=== PATIENT | female | born 1945 | race Caucasian/White ===

== ENCOUNTER → 2020-09-09 | Outpatient (CLI) | payer MEDICARE ==
--- NOTE | 2020-09-09 13:58 | Diagnostic Imaging Report ---
EXAMINATION: CT Chest without contrast (lung screening). TECHNIQUE: Multiple contiguous axial images were obtained through the chest without the use of intravenous contrast according to lung cancer screening protocol. All CT scans use one or more of the following dose optimizing techniques: automated exposure control, MA and/or KvP adjustment based on a patient size and exam type, or iterative reconstruction. HISTORY: 30 pack year history of smoking. COMPARISON: None available. FINDINGS: There is no edema or pneumonia. No pleural effusion. No pneumothorax. There is a 10 x 7 mm right lower lobe pulmonary nodule. There is mild atelectasis in the lingula. There is no axillary or supraclavicular lymphadenopathy. There is no mediastinal lymphadenopathy. Heart size is normal. There are mild coronary artery calcifications. No pericardial effusion. Aorta is normal in caliber. Limited views of the upper abdomen show an indeterminate renal lesion measuring 2.5 cm, likely a cyst. There are no suspicious osseous lesions. IMPRESSION: 1. Right lower lobe pulmonary nodule measuring 8.5 mm in average diameter. Three-month follow-up or PET CT are recommended. 2. Indeterminate right renal lesion which is likely a cyst but difficult to characterize due to low-dose technique. Renal protocol CT is recommended. LUNG-RADS CATEGORY: 4a MODIFIER: S Dictated by: Dictated on workstation # [id number]
== END ==
LOC: RAD 13:45
PROVIDERS: ATTEND Family Medicine
DX: Z12.2 Encounter for screening for malignant neoplasm of respiratory organs (principal); R91.1 Solitary pulmonary nodule; N28.9 Disorder of kidney and ureter, unspecified; F17.210 Nicotine dependence, cigarettes, uncomplicated

== ENCOUNTER → 2020-09-17 | Outpatient (CLI) | payer MEDICARE | LOC: RAD 09:00 | PROVIDERS: ATTEND Family Medicine | DX: R91.8 Other nonspecific abnormal finding of lung field (principal); E22.2 Syndrome of inappropriate secretion of antidiuretic hormone; Z72.0 Tobacco use | CPT/HCPCS: 78815; A9552 ==

== ENCOUNTER 2020-09-30 05:30 | Outpatient (RCR) | payer MEDICARE ==
[~2020-09-30] VITALS: Ht 157.5 cm; Wt 85.3 kg
[~2020-09-30 05:30] MED LIST: ASCO500C17 PO; ASPI-999 PO; LISI40TA PO; MV-M1TAB57 PO; OMG1KC PO; SIMV40TA25 PO; UMEC1BLS IH
== END 2020-09-30 13:43 | disposition home or self-care (01) ==
LOC: PREOP 05:30
PROVIDERS: ATTEND Surgery
DX: Z01.812 Encounter for preprocedural laboratory examination (principal); K63.89 Other specified diseases of intestine; Z20.828 Contact with and (suspected) exposure to other viral communicable diseases
CPT/HCPCS: 87635

== ENCOUNTER 2020-10-01 09:21 | Outpatient (RCR) | payer MEDICARE ==
[~2020-10-01 09:21] MED LIST changes: -LISI40TA PO; +LISI40TA9 PO
[2020-10-01 10:15] LABS: BASOPHILS # (AUTO) 0.1 10^3/uL (0.0-0.1); BASOPHILS % (AUTO) 1 % (0-10); EOSINOPHILS # (AUTO) 0.2 10^3/uL (0.0-0.3); EOSINOPHILS % (AUTO) 1 % (0-10); HEMATOCRIT 37 % (35-52); HEMOGLOBIN 12.4 g/dL (11.5-16.0); LYMPHOCYTES # (AUTO) 2.4 10^3/uL (1.0-4.0); LYMPHOCYTES % (AUTO) 22 % (12-44); MEAN CORPUSCULAR HEMOGLOBIN 31 pg (25-34); MEAN CORPUSCULAR HGB CONC 34 g/dL (32-36); MEAN CORPUSCULAR VOLUME 93 fL (80-99); MEAN PLATELET VOLUME 8.5 fL (9.0-12.2); MONOCYTES # (AUTO) 0.9 10^3/uL (0.0-1.0); MONOCYTES % (AUTO) 9 % (0-12); NEUTROPHILS # (AUTO) 7.4 10^3/uL (1.8-7.8); NEUTROPHILS % (AUTO) 67 % (42-75); PLATELET COUNT 405 10^3/uL (130-400); WHITE BLOOD COUNT 10.9 10^3/uL (4.3-11.0)
[2020-10-01 10:19] LABS: ALANINE AMINOTRANSFERASE 23 U/L (0-55); ALBUMIN 4.2 GM/DL (3.2-4.5); ALKALINE PHOSPHATASE 80 U/L (40-136); BILIRUBIN,TOTAL 0.3 MG/DL (0.1-1.0); BUN/CREATININE RATIO 20; CALCIUM 9.6 MG/DL (8.5-10.1); CARBON DIOXIDE 20 MMOL/L (21-32); CHLORIDE 95 MMOL/L (98-107); CREATININE SERUM 0.83 MG/DL (0.60-1.30); GFR ESTIMATED > 60; GLUCOSE 126 MG/DL (70-105); SODIUM 126 MMOL/L (135-145); TOTAL PROTEIN 7.3 GM/DL (6.4-8.2)
[2020-10-24] MEDS ORDERED: MONT10TA32 PO (11:45)
[2020-10-24] MEDS ORDERED: CETI10TA17 PO (11:45)
[2020-11-07] MEDS ORDERED: FLUT1BLS3 IH (13:00)
[2020-12-29] MEDS ORDERED: ONDA4TAB11 PO (12:15)
[2020-12-29] MEDS ORDERED: NICO1PAT38 TD (12:15)
[2020-12-29] MEDS ORDERED: PHEN120L2 MC (12:15)
[2020-12-29] MEDS ORDERED: PANT40TA52 PO (12:15)
[2020-12-29] MEDS ORDERED: Bethanechol Chl PO (12:15)
[2020-12-29] MEDS ORDERED: METO-333 PO (12:15)
[2020-12-29] MEDS ORDERED: MELA3TAB39 PO (12:15)
[2020-12-29] MEDS ORDERED: SENN1TAB76 PO (12:15)
[2020-12-29] MEDS ORDERED: FENT1PAT8 TD (12:15)
[2020-12-29] MEDS ORDERED: SUCR1TAB PO (12:15)
[2020-12-29] MEDS ORDERED: MICO90PO TOP (12:15)
[2020-12-29] MEDS ORDERED: METO5TAB2 PO (12:15)
[2020-12-29] MEDS ORDERED: ENOX40DI8 SC (12:15)
[2020-12-29] MEDS ORDERED: SALI45SP MM (12:15)
[2020-12-29] MEDS ORDERED: Artificial Tears OU (12:15)
[2020-12-29] MEDS ORDERED: AMLO-251 PO (12:15)
[2020-12-29] MEDS ORDERED: NF-NACL1GT PO (12:15)
[2020-12-29] MEDS ORDERED: OXC5T PO (12:15)
[2020-12-29] MEDS ORDERED: ALBU2.5V4 INH (12:15)
[2020-12-29] MEDS ORDERED: POLY17PO54 PO (12:15)
[2020-12-29] MEDS ORDERED: DCS100C PO (12:15)
[2020-12-29] MEDS ORDERED: ALPR.25T PO (12:15)
[2020-12-29] MEDS ORDERED: NITR100C10 PO (12:15)
[2020-12-29] MEDS ORDERED: FLUT16SP22 NS (12:15)
[2020-12-29] MEDS ORDERED: LISI20TA26 PO (12:15)
[2020-12-30] MEDS ORDERED: TMSL.4C PO (08:55)
== END 2020-12-30 | disposition home or self-care (01) ==
LOC: ONC 09:21
PROVIDERS: ATTEND Internal Medicine Hematology & Oncology
DX: R91.1 Solitary pulmonary nodule (principal); R19.09 Other intra-abdominal and pelvic swelling, mass and lump; J43.9 Emphysema, unspecified; Z72.0 Tobacco use
CPT/HCPCS: 80053; 82378; 85025; G0463; 99214

== ENCOUNTER 2020-10-02 10:09 | Day surgery (SDC) | payer MEDICARE ==
[~2020-10-02] VITALS: Ht 157.5 cm; Wt 85.0 kg
[~2020-10-02 10:09] MED LIST changes: +LISI40TA PO; -LISI40TA9 PO
[2020-10-02] MEDS ORDERED: LACTATED RINGERS 1,000 ML IV STA (10:22)
[2020-10-02] MEDS ORDERED: LACTATED RINGERS 1,000 ML IV ONE ×2 (10:23→11:59)
[2020-10-02 10:37] VITALS: BP 130/59
[2020-10-02] MEDS ORDERED: morphine INJ 10 MG/ML 1ML (SYR OR VIAL) IVP PRN ×2 (10:45)
[2020-10-02] MEDS ORDERED: ONDANSETRON 4 MG/2 ML (SDV) Z0FRAN IVP PRN (10:45)
[2020-10-02] MEDS ORDERED: ACETAMINOPHEN 325 MG TABLET PO PRN (10:45)
[2020-10-02] MEDS ORDERED: HYDROcodone/APAP 5 MG/325 MG (LORTAB) TAB PO PRN (10:45)
--- NOTE | 2020-10-02 10:45 | Conscious Sedation/ASA ---
Conscious Sedation Pre-Proced Time 10:30 ASA Score 3 For ASA 3 and 4: Consider anesthesia and medical clearance. Also, for patients with a history of failed moderate sedation consider anesthesia. Airway Lungs Heart ASA score ASA 1: a normal healthy patient ASA 2: a patient with a mild systemic disease (mid diabetes, controlled hypertension, obesity ASA 3: a patient with a severe systemic disease that limits activity (angina, COPD, prior Myocardial infarction) ASA 4: a patient with an incapacitating disease that is a constant threat to life (CHF, renal failure) ASA 5: a moribund patient not expected to survive 24 hrs. (ruptured aneurysm) ASA 6: a declared brain- patient whose organs are being harvested. For emergent operations, add the letter E after the classification Mallampati Classification Grade 2 Sedation Plan Analgesia, Amnesia, Plan communicated to team members, Discussed options with patient/fam, Discussed risks with patient/fam The patient is an appropriate candidate to undergo the planned procedure, sedation, and anesthesia. The patient immediately re-assessed prior to indication. MICHAEL XIONG MD Oct 02, 2020 10:45
--- NOTE | 2020-10-02 10:45 | Progress Note-Pre Operative ---
Pre-Operative Progress Note H&P Reviewed The H&P was reviewed, patient examined and no changes noted. Date Seen by Provider: Oct 02, 2020 Time Seen by Provider: 10:30 Date H&P Reviewed: Oct 02, 2020 Time H&P Reviewed: 10:30 Pre-Operative Diagnosis: tranverse colonic mass MICHAEL XIONG MD Oct 02, 2020 10:45
--- NOTE | 2020-10-02 10:46 | Discharge Inst-Surgical ---
D/C Lap Instructions-TYRESE Follow Up Appt in 2 weeks Activity as tolerated High Fiber Diet 25g or more per day Avoid Alcohol, Caffeine, Spicy [place] and Acid foods. Drink 64 fluid oz or more of fluids per day. Symptoms to Report: Fever over 101 degree F, Nausea/Vomiting If any problems/questions: Contact your physician or go to Emergency Room MICHAEL XIONG MD Oct 02, 2020 10:46
[2020-10-02] MEDS ORDERED: proPOfol 200 MG/20 ML (DIPRIVAN) VIAL IV ONE (10:57)
[2020-10-02] MEDS ORDERED: LIDOCAINE JELLY 2% 6 ML SYRINGE ONE (11:11)
[2020-10-02 12:20] VITALS: BP 127/60
[2020-10-02 12:25] VITALS: BP 136/62
--- NOTE | 2020-10-02 12:54 | Anesthesia-General Post-Op ---
MAC Patient Condition Mental Status/LOC: Same as Preop Cardiovascular: Satisfactory Nausea/Vomiting: Absent Respiratory: Satisfactory Pain: Controlled Complications: Absent Post Op Complications Complications None Follow Up Care/Instructions Patient Instructions None needed. Anesthesiology Discharge Order Discharge Order Patient is doing well, no complaints, stable vital signs, no apparent adverse anesthesia problems. CHONG HAJI DO Oct 02, 2020 12:54
[2020-10-02 12:55] VITALS: BP 107/40
[2020-10-02 13:10] VITALS: BP 107/40
[2020-10-02] MEDS ORDERED: LIDOCAINE JELLY 2% 6 ML SYRINGE TOP ONE (13:30)
--- NOTE | 2020-10-02 14:28 | Progress Note-Post Operative ---
Post-Operative Progess Note Surgeon (s)/Help Desk Intern (s) Surgeon MICHAEL XIONG MD Help Desk Intern: none Pre-Operative Diagnosis tranverse colonic mass Post-Operative Diagnosis same Procedure & Operative Findings Date of Procedure 10/02/20 Procedure Performed/Findings colonoscopy with bx and submucosal injection. Anesthesia Type mac Estimated Blood Loss Estimated blood loss (mL): minimal Specimens/Packing Specimens Removed tranverse colonic mass MICHAEL XIONG MD Oct 02, 2020 14:28
--- NOTE | 2020-10-02 20:14 | OPERATIVE REPORT ---
DATE OF SERVICE: ATTENDING PRIMARY CARE PHYSICIAN: Tish Ba MD PREOPERATIVE DIAGNOSIS: Sigmoid colonic mass. POSTOPERATIVE DIAGNOSIS: Transverse colonic mass. POSTOPERATIVE DIAGNOSES: Near obstructing transverse colonic mass consistent with a neoplastic process. Sigmoid colonic polyp 6 mm in size. PROCEDURE: Colonoscopy with biopsy and submucosal injection and snare polypectomy. SURGEON: Michael Xiong MD ANESTHESIA: Monitored anesthesia care. ESTIMATED BLOOD LOSS: Minimal. FINDINGS: Same as postoperative diagnoses. DISPOSITION: The patient tolerated the procedure well. INDICATIONS: The patient is a 75-year-old female with recent finding of a large hypermetabolic mass involving the transverse colon on recent PET-CT scan. She initially presented with yearly labs and found to be hyponatremic and underwent a CT scan and was found to have a right lower lobe pulmonary nodule as well as an indeterminate right renal lesion, likely a cyst. The recommendation was then to proceed with a PET-CT scan where a large hypermetabolic mass was identified of the transverse colon. This was worrisome for malignancy. Her last colonoscopy was approximately 30 years ago and does not remember any abnormalities. She does not report any red blood per rectum nor any dark tarry stools. She has a remote family history of colon cancer with her paternal grandmother having the disease. DESCRIPTION OF PROCEDURE: The patient was brought to the endoscopy suite, laid in the left lateral decubitus position. After adequate IV pain and stated medications and monitored anesthesia care, a digital rectal examination was performed, which revealed chronic stage II external and internal hemorrhoids, not actively edematous nor inflamed and no bleeding. Normal sphincter tone was felt with no palpable masses. The endoscope was then intubated and anus and rectum gently insufflated. The endoscope was then advanced to the valves of Fink of the rectum with no polyps or any neoplasms identified. We then proceeded through the sigmoid colon where a moderate sigmoid diverticulosis identified. There was also a pedunculated polyp approximately 6 mm in size, which was excised at its base using a snare and electrocautery with visualization of good hemostasis. The endoscope was then advanced remainder of the descending and transverse colon what appeared to be at the mid transverse colon was a near obstructing mass, which was exophytic and consistent with some form of neoplasm. Multiple biopsies were taken with forceps with visualization of good hemostasis. We also proceeded with submucosal injection of black spot ink. Multiple attempts were made to try to pass through the lesion; however, unsuccessful. The endoscope was then slowly withdrawn while taking a second look and suctioning residual air with no additional findings. The patient tolerated the procedure well. We will await the biopsy results; however, she will need surgery soon for removal of the mass, which will cause an obstructive pathology soon. Job ID: [id number] DocumentID: [id number] Dictated Date: 10/02/2020 12:23:49 Skilled Nursing Facilities Professional Date: 10/02/2020 20:12:48 Dictated By: MICHAEL XIONG MD [facility]
== END 2020-10-02 12:25 | disposition home or self-care (01) ==
LOC: ENDO 10:09
PROVIDERS: ATTEND Surgery
DX: C18.4 Malignant neoplasm of transverse colon (principal); D12.5 Benign neoplasm of sigmoid colon; K57.30 Diverticulosis of large intestine without perforation or abscess without bleeding; I10 Essential (primary) hypertension; J44.9 Chronic obstructive pulmonary disease, unspecified; M19.90 Unspecified osteoarthritis, unspecified site; E78.00 Pure hypercholesterolemia, unspecified; R91.1 Solitary pulmonary nodule; E87.1 Hypo-osmolality and hyponatremia; F17.210 Nicotine dependence, cigarettes, uncomplicated; E66.9 Obesity, unspecified; Z68.34 Body mass index [BMI] 34.0-34.9, adult; Z79.899 Other long term (current) drug therapy; Z79.82 Long term (current) use of aspirin; Z88.0 Allergy status to penicillin; Z88.8 Allergy status to other drugs, medicaments and biological substances; Z80.0 Family history of malignant neoplasm of digestive organs
CPT/HCPCS: 88305

== ENCOUNTER → 2020-10-04 | Outpatient (CLI) | payer MEDICARE ==
[~2020-10-04] MED LIST changes: +RT-ALBUTEROL SULF 2.5 MG/3 ML PRE-MIX VIAL INH ONE
== END ==
LOC: RT 08:00
PROVIDERS: ATTEND Internal Medicine Hematology & Oncology
DX: J44.9 Chronic obstructive pulmonary disease, unspecified (principal); R91.1 Solitary pulmonary nodule
CPT/HCPCS: 94060; 94726; 94729

== ENCOUNTER → 2020-10-08 | Outpatient (CLI) | payer MEDICARE ==
[~2020-10-08] MED LIST changes: -RT-ALBUTEROL SULF 2.5 MG/3 ML PRE-MIX VIAL INH ONE
[2020-10-08 11:27] LABS: ABG BASE EXCESS -1.6 MMOL/L (-2.5-2.5); ABG OXYGEN SATURATION 97 % (94-100); ABG PCO2 38 MMHG (35-45); ABG PH 7.39 (7.37-7.43); ABG PO2 78 MMHG (79-93); ABG TCO2 23.8 MMOL/L (21.0-31.0)
[2020-10-08 11:28] LABS: ALLENS TEST YES-POS
[2020-10-08 11:29] LABS: INSPIRED O2 RA; PATIENT TEMP 36.8; VENTILATOR NO
== END ==
LOC: RT 10:46
PROVIDERS: ATTEND Nurse Practitioner Family
DX: J44.9 Chronic obstructive pulmonary disease, unspecified (principal)
CPT/HCPCS: 36600; 82805

== ENCOUNTER 2020-10-29 05:40 | Outpatient (RCR) | payer MEDICARE ==
[~2020-10-29] VITALS: Ht 157.5 cm; Wt 84.9 kg
[~2020-10-29 05:40] MED LIST changes: +CETI10TA17 PO; +MONT10TA97 PO
== END 2020-10-29 15:49 | disposition home or self-care (01) ==
LOC: PREOP 05:40
PROVIDERS: ATTEND Surgery
DX: Z01.818 Encounter for other preprocedural examination (principal); C18.9 Malignant neoplasm of colon, unspecified
CPT/HCPCS: 87635

== ENCOUNTER 2020-11-13 10:54 | Inpatient (IN) | payer MEDICARE ==
[~2020-11-13] VITALS: Ht 157.5 cm; Wt 87.8 kg
[~2020-11-13 10:54] MED LIST changes: +BISACODYL 10 MG SUPP (DULCOLAX) PR PRN; +CALCIUM CARBONATE 500 MG (TUMS) TAB.CHEW PO PRN; +DOCUSATE SODIUM 100 MG (COLACE) CAP PO PRN; +FLEET ENEMA ADULT 1 EA BTL PR PRN; +FLUT1BLS3 IH; +LACTULOSE SYRUP 10GM/15ML (ENULOSE) 30ML UDC PO PRN; +LOPERAMIDE 2 MG (IMODIUM) TABLET PO PRN; +MELATONIN 3 MG TABLET PO PRN; +ONDANSETRON 4 MG (ZOFRAN) ORAL DISSOLVE TAB PO PRN; +diphenhydrAMINE 25 MG TAB (BENADRYL) PO PRN; +guaiFENesin/CODEINE (ROBITUSSIN AC) 10ML UDC PO PRN
--- NOTE | 2020-11-13 10:55 | NUR ---
GABO OLVERA admitted to room 224, with an admitting diagnosis of DISUSE MYOPATHY, on 11/13/20 from FOURTH FLOOR via WHEELCHAIR, accompanied by THERAPY. GABO OLVERA introduced to surroundings, call light, bed controls, phone, TV, temperature control, lights, meal times, smoking policy, visitor policy, side rail policy, bathrooms and showers. Patient Rights given to patient in the handbook. GABO OLVERA verbalizes understanding that [facility] is not responsible for the loss or damage to any personal effects or valuables that are kept in the patient's possession during their hospitalization. The following Patient Care Plans were discussed with the PATIENT: Discharge Planning, IMPAIRED MOBILITY, HIGH RISK: IMPAIRED SKIN INTEGRITY, HIGH RISK: INJURY, and KNOWLEDGE DEFICIT. GABO OLVERA verbalizes understanding of Interdisciplinary Patient Education. Patient received Patient Rights Booklet, which includes Privacy Act Statement and Data Collection Information Summary.
[2020-11-13] MEDS ORDERED: BISACODYL 10 MG SUPP (DULCOLAX) PR PRN (11:00)
[2020-11-13] MEDS ORDERED: ONDANSETRON 4 MG (ZOFRAN) ORAL DISSOLVE TAB PO PRN (11:00)
[2020-11-13] MEDS ORDERED: MELATONIN 3 MG TABLET PO PRN ×3 (11:00→11:30)
[2020-11-13] MEDS ORDERED: guaiFENesin/CODEINE (ROBITUSSIN AC) 10ML UDC PO PRN (11:00)
[2020-11-13] MEDS ORDERED: FLEET ENEMA ADULT 1 EA BTL PR PRN (11:00)
[2020-11-13] MEDS ORDERED: diphenhydrAMINE 25 MG TAB (BENADRYL) PO PRN (11:00)
[2020-11-13] MEDS ORDERED: LACTULOSE SYRUP 10GM/15ML (ENULOSE) 30ML UDC PO PRN (11:00)
[2020-11-13] MEDS ORDERED: CALCIUM CARBONATE 500 MG (TUMS) TAB.CHEW PO PRN (11:00)
[2020-11-13] MEDS ORDERED: DOCUSATE SODIUM 100 MG (COLACE) CAP PO PRN (11:00)
[2020-11-13] MEDS ORDERED: LOPERAMIDE 2 MG (IMODIUM) TABLET PO PRN (11:00)
[2020-11-13] MEDS: SENNA W/DOCUSATE (SENOKOT S) TABLET PO SCH ×2 (11:10→11:11)
[2020-11-13] MEDS: DOCUSATE SODIUM 100 MG (COLACE) CAP PO SCH ×3 (11:10→20:12)
[2020-11-13] MEDS: polyethylene glycoL POWDER 17 GM (MIRALAX) PACK PO SCH ×3 (11:10→20:12)
[2020-11-13] MEDS ORDERED: fentaNYL INJECTION 100 MCG/2 ML AMP IVP PRN ×3 (11:15→11:30)
[2020-11-13] MEDS ORDERED: 1/2 NS IV SOLUTION 1,000 ML IV SCH (11:15)
[2020-11-13] MEDS ORDERED: metroNIDAZOLE 500MG/100ML IVPB 100 ML IV SCH (11:15)
[2020-11-13] MEDS ORDERED: HYDROcodone/APAP 7.5MG-325 MG/15 ML (LORTAB) UDC PO PRN (11:15)
[2020-11-13] MEDS ORDERED: CATHETER FLUSH 10 ML SYR IV PRN ×2 (11:15→11:30)
[2020-11-13] MEDS ORDERED: TPN IV SCH ×2 (11:15→11:30)
[2020-11-13] MEDS ORDERED: CIPROFLOXACIN IV 400MG/200ML 200 ML IV SCH (11:15)
[2020-11-13] MEDS ORDERED: NALOXONE 0.4 MG/ML 1 ML (NARCAN) VIAL IV PRN ×2 (11:15→11:30)
[2020-11-13] MEDS ORDERED: ACETAMINOPHEN 325 MG TABLET PO PRN ×2 (11:15→11:30)
[2020-11-13] MEDS ORDERED: diphenhydrAMINE 50 MG/ML INJ (BENADRYL) IV PRN ×2 (11:15→11:30)
[2020-11-13] MEDS ORDERED: CHLORASEPTIC SPRAY 177 ML LIQUID MC PRN ×2 (11:15→11:30)
[2020-11-13] MEDS ORDERED: ONDANSETRON 4 MG/2 ML (SDV) Z0FRAN IVP PRN ×2 (11:15→11:30)
--- NOTE | 2020-11-13 11:18 | PM&R Post Admission Assessment ---
PM&R HP Date of Visit: Nov 13, 2020 Time of Visit: 11:15 History of Present Illness CC: Recovery from gastrointestinal surgery HPI: This is a 75yoWF clinic Pt of Dr. Ba who I was consulted on med-surg two weeks ago when she underwent a partial colon resection due to colon cancer requiring lengthy stay due to post-op ileus that had significantly more problems requiring a repeat surgery resulting in a diverting ileostomy. She has since been maintained on TPN and VP GLOBAL Fentanyl drip has been discontinued and we are monitoring output with the ileostomy bag. She is very hard of hearing, very difficult to communicate, so we will be in the midst of weaning off TPN and helping her recover. MADI HAYWARD MED STUDENT 11/13/20 1233: Hospital Course Ms. Pinto is a 75yoWF (clinic patient of Dr Ba and Dr Moreno) who presented to 4th floor after spending overnight in ICU for dyspnea and monitoring after right hemicolectomy on 10/31/20 for colon cancer treatment. Post- op she had low sodium level which has since improved along with upper airway wheezing, shortness of air and anemia. She received 3 units of PRBCs and Lasix to address anemia and shortness of breath. As patient recovered from surgery, bowel function never returned and she experienced N/V and abdominal distention so NGT was placed to help alleviate symptoms. A small bowel obstruction and ileocolonic torsion were found and required pt's return to the operating room on 11/10/20 for ileocolonic resection and end ileostomy. Pt's course has been complicated with PNA treated by abx, HTN managed with help of cardiology consult, and post-op ileus which progressed to obstruction due to ileocolonic t orsion. Since completion of second operation she showed marked improvement. She gained strength receiving TPN with good output from ileostomy and mucous fistula and pain controlled by VP GLOBAL. She continued to recover on 4th floor and has now had NGT removed and pain level under control without VP GLOBAL so she will begin inpatient rehab at [facility] today (11/13/20). Patient is very [place]IN and can't communicate well. Past Cnkmbdh-Vfners-Kxvfdt Hx Past Med/Social Hx: Reviewed Nursing Past Med/Soc Hx, Reviewed and Corrections made Patient Social History Marrital Status: single Employed/Student: retired Alcohol Use: Denies Use Smoking Status: Current Everyday Smoker Type Used: Cigarettes 2nd Hand Smoke Exposure: No Recent Hopitalizations: No Immunizations Up To Date Date of Pneumonia Vaccine: Jul 25, 2020 Date of Influenza Vaccine: Jul 25, 2020 Seasonal Allergies Seasonal Allergies: Yes Past Medical History Surgeries: Abdominal, Tonsillectomy Respiratory: COPD, Pneumonia Currently Using CPAP: No Currently Using BIPAP: No Cardiac: High Cholesterol, Hypertension Gastrointestinal: Chronic Constipation Musculoskeletal: Arthritis, Chronic Back Pain Hearing Impairment: Hard of Hearing, Bilateral Hearing Aide Cancer: Colon What Type of Treatment Did You: Surgical Intervention History of Blood Disorders: No PM&R Allergy/Meds/Data Review Allergies Coded Allergies: Penicillins (Verified Allergy, Unknown, Anaphylaxis, 09/26/20) budesonide (Verified Allergy, Unknown, Nausea, 09/26/20) formoterol (Verified Allergy, Unknown, Nausea, 09/26/20) midazolam (Verified Allergy, Unknown, Anaphylaxis, 09/26/20) Home Medications Scheduled Ascorbic Acid (Vitamin C), 500 MG PO DAILY, (Reported) Aspirin (Aspirin), 81 MG PO DAILY, (Reported) Cetirizine HCl (Cetirizine HCl), 10 MG PO DAILY, (Reported) Fluticasone/Umeclidin/Vilanter (Trelegy Ellipta 100-62.5-25), 1 EACH IH DAILY, (Reported) Lisinopril (Lisinopril), 40 MG PO DAILY, (Reported) Montelukast Sodium (Montelukast Sodium), 10 MG PO HS, (Reported) Mv-Mn/Folic Acid/Calcium/Vit K (Women's 50 Plus Multivit Tab), 1 EACH PO DAILY, (Reported) Warren 3 Polyunsat Fatty Acids (Fish Oil 1,000 mg Capsule), 1,000 MG PO DAILY, (Reported) Simvastatin (Simvastatin), 40 MG PO HS, (Reported) Umeclidinium Brm/Vilanterol Tr (Anoro Ellipta 62.5-25 Mcg INH), 1 EACH IH DAILY, (Reported) Current Medications Current Medications Reviewed Review of Systems Constitutional: see HPI, malaise, weakness EENTM: no symptoms reported Respiratory: dyspnea on exertion Cardiovascular: no symptoms reported Gastrointestinal: abdominal pain, loss of appetite, nausea Genitourinary: no symptoms reported Musculoskeletal: back pain, joint pain Skin: no symptoms reported Psychiatric/Neurological: Anxiety, Depressed All Other Systems Reviewed Negative Unless Noted: Yes Physical Exam Physical Exam Vital Signs Capillary Refill : Height, Weight, BMI Height: '" Weight: lbs. oz. kg; 34.22 BMI Method: General Appearance: No Apparent Distress, WD/WN, Anxious, Chronically ill Eyes: Bilateral Eye Normal Inspection, Bilateral Eye PERRL HEENT: PERRL/EOMI, Normal ENT Inspection, Pharynx Normal Neck: Full Range of Motion, Normal Inspection, Non Tender, Supple, Carotid Bruit Respiratory: Chest Non Tender, Lungs Clear, No Accessory Muscle Use, No Respiratory Distress, Decreased Breath Sounds Cardiovascular: Regular Rate, Rhythm, No Gallop, No JVD, No Murmur, Normal Peripheral Pulses Gastrointestinal: Normal Bowel Sounds, No Organomegaly, No Pulsatile Mass, Non Tender, Soft Back: Normal Inspection, No CVA Tenderness, No Vertebral Tenderness Extremity: Normal Capillary Refill, Normal Inspection, Normal Range of Motion, Non Tender, No Calf Tenderness, Pedal Edema Neurologic/Psychiatric: Alert, Oriented x3, No Motor/Sensory Deficits, Normal Mood/Affect, 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 Norm as Tested, Abnormal Gait, Motor Weakness (severe weakness 3/5 all extremities) Skin: Normal Color, Warm/Dry Lymphatic: No Adenopathy PM&R Medical Assessment & Plan REHAB/MEDICAL ASSESSMENT AND PLAN: REHAB 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 The comorbidities that impact the patients function and/or functional outcome by: severe [place] causing communication difficulties, colon cancer, severe COPD O2 dependence, post op ileus, iliostomy REHAB PLAN: The patient is being admitted to our comprehensive inpatient rehabilitation facility and can tolerate the intensity of service consisting of at least: 180 minutes of therapy a day, 5 out of 7 days a week Rehab treatment will consist of: PT OT will focus on regaining ambulatory skills and regain strength in order to return to independent living The patient/family has a good understanding of our discharge process and will benefit from an interdisciplinary inpatient rehabilitation program. The patient has potential to make improvement and is in need of at least two of the following multidisciplinary therapies including but not limited to physical, occupational, speech, and prosthetics and orthotics. Additionally the patient will need services from respiratory, nutritional services, wound care, psychology, etc. (Customize this to each patient). Given the patients complex condition and risk of further medical complications, rehabilitation services cannot be safely or effectively provided at a lower level of care such as a chcf facility. BARRIERS TO DISCHARGE: Severe debility, [place] severe ESTIMATED LOS: 10 days DISPOSITION: Home RELEVANT CHANGES SINCE PREADMISSION SCREENING: I have compared the patients medical and functional status at the time of the preadmission screening and there are: no changes PROGNOSIS: Guarded REHABILITATION GOALS: 1. PT OT will focus on regaining ambulatory skills and regain strength in order to return to independent living All the above goals were reviewed with the patient and he/she is in agreement. By signing this document, I acknowledge that I have personally performed a full physical examination on this patient within 24 hours of admission to this inpatient rehabilitation facility and have determined the patient to be able to tolerate the above course of treatment at an intensive level for a reasonable period of time. I will be completing a detailed individualized Plan of Care for this patient by day #4 of the patients stay based upon the Preadmission Screen, the Post-Admission Evaluation, and the therapy evaluations. Admission Dx/Comorbidities: (1) Ileostomy in place ICD Codes: Z93.2 - Ileostomy status (2) Myopathy ICD Codes: G72.9 - Myopathy, unspecified (3) Ileus following gastrointestinal surgery ICD Codes: K91.89 - Other postprocedural complications and disorders of digestive system; K56.7 - Ileus, unspecified (4) Presbycusis of both ears ICD Codes: H91.13 - Presbycusis, bilateral (5) LFT elevation ICD Codes: R79.89 - Other specified abnormal findings of blood chemistry (6) DVT prophylaxis ICD Codes: Z29.9 - Encounter for prophylactic measures, unspecified (7) Anemia due to acute blood loss ICD Codes: D62 - Acute posthemorrhagic anemia (8) Colon cancer ICD Codes: C18.9 - Malignant neoplasm of colon, unspecified (9) Wheeze ICD Codes: R06.2 - Wheezing (10) Hyponatremia ICD Codes: E87.1 - Hypo-osmolality and hyponatremia (11) COPD (chronic obstructive pulmonary disease) ICD Codes: J44.9 - Chronic obstructive pulmonary disease, unspecified (12) S/P right hemicolectomy ICD Codes: Z90.49 - Acquired absence of other specified parts of digestive tract Assessment/Plan Assessment and Plan Assess & Plan/Chief Complaint Assessment: Myopathy s/p hemicolectomy due to colon cancer then ileostomy due to torsion-Dr Lynch COPD O2 dependence HTN Smoker Hyponatremia Anemia s/p 3 units of blood on med-surg floor Plan: Monitor pain IRF protocol O2 TPN wean WILFREDO MARTÍNEZ DO Nov 13, 2020 11:18
--- NOTE | 2020-11-13 11:49 | Physical Therapy Evaluation ---
PT Evaluation-General Medical Diagnosis Admission Date Nov 13, 2020 at 10:54 Medical Diagnosis: disuse myopathy Onset Date: Oct 31, 2020 Therapy Diagnosis Therapy Diagnosis: impaired mobility, strength, endurance Precautions Precautions/Isolations: Fall Prevention, Standard Precautions Referral Physician: Genna Chapman DO Reason for Referral: Evaluation/Treatment Medical History Pertinent Medical History: COPD, HTN Additional Medical History s/p colon resection Social History Home: Single Level Current Living Status: sister Entry Into Home: Stairs With Railing PT Steps Into Home: 5 Prior Prior Level of Function SCALE: Activities may be completed with or without assistive devices. 4-Mhyhnillig-jiskpwg completes the activity by him/herself with no assistance from a helper. 5-Set-up or Clean-up Assistance-helper sets up or cleans up; patient completes activity. [place] assists only prior to or following the activity. 4-Supervision or Touching Assistance-helper provides verbal cues and/or touching/steadying and/or contact guard assistance as patient completes activity. Assistance may be provided throughout the activity or intermittently. 3-Partial/Moderate Assistance-helper does LESS THAN HALF the effort. [place] lifts, holds or supports trunk or limbs, but provides less than half the effort. 2-Substantial/Maximal Assistance-helper does MORE THAN HALF the effort. [place] lifts or holds trunk or limbs and provides more than half the effort. 1-Zzzxugwwo-odnqeu does ALL the effort. Patient does none of the effort to complete the activity. Or, the assistance of 2 or more helpers is required for the patient to complete the activity. If activity was not attempted, code reason: 7-Patient Refused. 9-Not Applicable-not attempted and the patient did not perform the activity before the current illness, exacerbation or injury. 10-Not Attempted due to Environmental Limitations-(lack of equipment, weather restraints, etc.). 88-Not Attempted due to Medical Conditions or Safety Concerns. Bed Mobility: 6 Transfers (B,C,W/C): 6 Gait: 6 Stairs: 6 Indoor Mobility (Ambulation): Independent Stairs: Independent PT Evaluation-Current Subjective Patient in bed pre tx, agrees to PT, has 8/10 pain in abdomen, patient states she has already had some pain meds. Will be co-treating with OT for part of tx due to poor patient mobility, strength, endurance, severe pain, SOB with activity, the need to coordinate UE and LE during activity, safety and reduce risk of falls. Pt/Family Goals "to get stronger" Objective Patient Orientation: Person, Place, Situation Attachments: Colostomy/Ileostomy, Oxygen, Drains, Lam Catheter, IV ROM/Strength ROM Lower Extremities WNL Strength Lower Extremities hip flexion not tested due to causing abdominal pain. LLE (knee flexion 4/5, knee extension 4/5, dorsiflexion 5/5), RLE (knee flexion 4/5, knee extension 4/5, dorsiflexion 5/5) Sensory Vision: Functional Hearing: Impaired Sensation Right Lower Extremit: Impaired Sensation Left Lower Extremity: Intact Sensation Lower Extremities Patient states she has some numbness around her right great toe Transfers Roll Left & Right (QC): 3 Sit to Lying (QC): 3 Lying to Sitting/Side of Bed(Q: 3 Sit to Stand (QC): 3 Chair/Hhy-li-Ctgic Xfer(QC): 3 Toilet Transfer (QC): 3 Car Transfer (QC): 88 Patient performs bed mobility with min assist, supine <-> sit with mod assist, sit <-> stand with min assist, transfers min assist, car transfer not attempted due to abdominal pain. Gait Does the Patient Walk?: Yes Mode of Locomotion: Walk Anticipated Mode of Locomotion: Walk Walk 10 feet (QC): 88 Walk 50 ft with 2 Turns(QC): 88 Walk 150 ft (QC): 88 Walking 10ft/uneven surface-QC: 88 Distance: 3'x3 Gait Assistive Device: Parallel Bars Comments/Gait Description Patient ambulated 3' x2 in the parallel bars with CGA. Patient ambulates slowly, very antalgic, gets SOB, O2 says in low 90's but HR get up to 130bpm Wheelchair Training Wheel 50 ft with 2 turns (QC): 88 Wheel 150 ft (QC): 88 not done due to abdominal pain Stairs 1 Step (curb) (QC): 88 4 Steps (QC): 88 12 Steps (QC): 88 Balance Sitting Static: Fair Sitting Dynamic: Fair Standing Static: Poor Standing Dynamic: Poor Picking up an Object (QC): 88 Treatment BLE seated exercises x20 (AP, LAQ), x20 done in recliner with legs elevated (AP, QS, GS, HS, hip abd/add). PT performed bed mobility and transfers, ambulation, LE exercise, OT worked on UE positioning and safety during ambulation. Assessment/Needs Patient has impaired mobility, strength, endurance. She needs assist standing and during transfers. Patient gets very SOB with activity, needs significant rest breaks and HR gets high with activity. Rehab Potential: Fair PT Short Term Goals Short Term Goals Time Frame: Nov 20, 2020 Roll Left & Right: 4 Sit to lyin Lying to sitting on side of be: 3 Sit to stand: 4 Chair/gop-tv-rywwk transfer: 4 Walk 10 feet: 4 PT Studio Model Goals Correction Goals PT Correction Goals Time Frame: Dec 04, 2020 Roll Left & Right (QC): 4 (SBA) Sit to Lying (QC): 4 (SBA) Lying-Sitting on Side/Bed(QC): 4 (SBA) Sit to Stand (QC): 4 (SBA) Chair/Jpk-qb-Wmtkv Xfer(QC): 4 (SBA) Toilet Transfer (QC): 4 (SBA) Car Transfer (QC): 3 (Darren) Does the Patient Walk: Yes Walk 10 feet (QC): 4 (SBA) Walk 50ft with 2 Turns (QC): 4 (SBA) Walk 150 ft (QC): 88 Walking 10ft on Uneven Surface: 4 (SBA) 1 Step (curb) (QC): 4 (CGA) 4 Steps (QC): 4 (CGA) 12 Steps (QC): 88 Picking up an Object (QC): 88 Wheel 50 feet with 2 turns (QC: 4 Wheel 150 feet: 88 PT Plan Problem List Problem List: Activity Tolerance, Functional Strength, Safety, Balance, Gait, Transfer, Bed Mobility, ROM Treatment/Plan Treatment Plan: Continue Plan of Care Treatment Plan: Bed Mobility, Education, Functional Activity Palak, Functional Strength, Gait, Safety, Therapeutic Exercise, Transfers Treatment Duration: Dec 04, 2020 Frequency: At least 5 of 7 days/Wk (IRF) Estimated Hrs Per Day: 1.5 hours per day Patient and/or Family Agrees t: Yes Safety Risks/Education Patient Education: Gait Training, Transfer Techniques, Correct Positioning, Safety Issues Teaching Recipient: Patient Teaching Methods: Demonstration, Discussion Response to Teaching: Reinforcement Needed Discharge Recommendations Plan Patient will perform bed mobility and transfer training, balance and endurance training, functional strengthening, stair training, gait training, and education to improve functional mobility and independence at home Therapy Discharge Recommendati: Scheduled Assistance, Home & Family, Post Acute PT Time/GCodes Time In: 1040 Time Out: 1150 Total Billed Treatment Time: 60 Total Billed Treatment 1 visit EVM 20' FA 15' EX 25' PT eval from [id number], OT eval from [id number], co-treat from [id number], PT from [id number] RAMOS POLLOCK PT Nov 13, 2020 11:49
[2020-11-13] MEDS ORDERED: METOCLOPRAMIDE INJ 10 MG/2 ML (REGLAN) IVP SCH (12:00)
[2020-11-13] MEDS: fentaNYL INJECTION 100 MCG/2 ML AMP IVP PRN ×5 (12:08→22:16)
[2020-11-13 12:25] VITALS: BP 134/59
--- NOTE | 2020-11-13 12:33 | Progress Note ---
MADI HAYWARD MED STUDENT 11/13/20 1233: Progress Note Hospital Course Ms. Pinto is a 75yoWF (clinic patient of Dr Ba and Dr Moreno) who presented to 4th floor after spending overnight in ICU for dyspnea and monitoring after right hemicolectomy on 10/31/20 for colon cancer treatment. Post- op she had low sodium level which has since improved along with upper airway wheezing, shortness of air and anemia. She received 3 units of PRBCs and Lasix to address anemia and shortness of breath. As patient recovered from surgery, bowel function never returned and she experienced N/V and abdominal distention so NGT was placed to help alleviate symptoms. A small bowel obstruction and ileocolonic torsion were found and required pt's return to the operating room on 11/10/20 for ileocolonic resection and end ileostomy. Pt's course has been compli cated with PNA treated by abx, HTN managed with help of cardiology consult, and post-op ileus which progressed to obstruction due to ileocolonic torsion. Since completion of second operation she showed marked improvement. She gained strength receiving TPN with good output from ileostomy and mucous fistula and pain controlled by ORGAN FIXER. She continued to recover on 4th floor and has now had NGT removed and pain level under control without ORGAN FIXER so she will begin inpatient rehab at [facility] today (11/13/20). Patient is very [place] and can't communicate well. GENNA MARTÍNEZ DO 11/14/20 0505: Supervisory-Addendum Brief Verification & Attestation Participated in pt care: history, MDM, physical Personally performed: exam, history, MDM, supervision of care Care discussed with: Medical Student Procedures: n/a Results interpretation: Verified all documentation Verification and Attestation of Medical Student E/M Service A medical student performed and documented this service in my presence. I reviewed and verified all information documented by the medical student and made modifications to such information, when appropriate. I personally performed the physical exam and medical decision making. Genna Martínez, Nov 14, 2020,05:05 MADI HAYWARD MED STUDENT Nov 13, 2020 12:33 GENNA MARTÍNEZ DO Nov 14, 2020 05:05
--- NOTE | 2020-11-13 12:57 | NUR ---
TPN: 75 Y/O F, HT. 62 ", ABW 87.8 KG, IBW 50 KG, BMI 35, HEMICOLECTOMY, ILEUS, COPD DAY 5 ON TPN, TPN RUNNING AT 55 ML/HR PROVIDING 1340KCAL WITH 90 GM PROTEIN, PT STARTED ON CLEAR LIQUIDS. PLAN; BMI 35, CLASS II OBESITY, WILL FOLLOW HYPOCALORIC HI PROTEIN GUIDELINE OF 11-14 KCAL/KG IBW (930-1185 KCAL) WITH 2 GM/KG PRO (100 GM) PT BS (196) AND BUN TRENDING UP ,WILL RUN TPN AT 51 ML/HR PROVIDING 1280 KCAL WITH 75 GM PROTEIN, ALONG WITH CLEAR LIQUID DIET.
[2020-11-13] MEDS: 1/2 NS IV SOLUTION 1,000 ML IV SCH (13:36)
[2020-11-13] MEDS: METOCLOPRAMIDE INJ 10 MG/2 ML (REGLAN) IVP SCH ×3 (13:38→23:36)
[2020-11-13] MEDS: CIPROFLOXACIN IV 400MG/200ML 200 ML IV SCH ×2 (13:46→23:37)
--- NOTE | 2020-11-13 14:08 | Occupational Therapy Eval ---
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 Pt. currently has ileostomy, colostomy, catheter, and drain. Reviewed History: Yes Social History Home: Single Level Current Living Status: sister Entry Into Home: Stairs With Railing Steps Into Home: 5 Pt. states that her sister works a lot, and will be gone during the day. ADL-Prior Level of Function SCALE: Activities may be completed with or without assistive devices. 9-Gpunkinqob-ymfbebm completes the activity by him/herself with no assistance from a helper. 5-Set-up or Clean-up Assistance-helper sets up or cleans up; patient completes activity. [place] assists only prior to or following the activity. 4-Supervision or Touching Assistance-helper provides verbal cues and/or touching/steadying and/or contact guard assistance as patient completes activity. Assistance may be provided throughout the activity or intermittently. 3-Partial/Moderate Assistance-helper does LESS THAN HALF the effort. [place] lifts, holds or supports trunk or limbs, but provides less than half the effort. 2-Substantial/Maximal Assistance-helper does MORE THAN HALF the effort. [place] lifts or holds trunk or limbs and provides more than half the effort. 5-Vsoqitdfm-jrwvvh does ALL the effort. Patient does none of the effort to complete the activity. Or, the assistance of 2 or more helpers is required for the patient to complete the activity. If activity was not attempted, code reason: 7-Patient Refused. 9-Not Applicable-not attempted and the patient did not perform the activity before the current illness, exacerbation or injury. 10-Not Attempted due to Environmental Limitations-(lack of equipment, weather restraints, etc.). 88-Not Attempted due to Medical Conditions or Safety Concerns. ADL PLOF Comments Pt. reports that she was fully independent with daily skills prior to this illness and hospitalization. She does state, "it was getting harder though." She states that she did not use an assistive device. Self Care: Independent Functional Cognition: Independent DME/Equipment: Shower, Toilet/Riser DME/Equipment Comments Pt. has access to a walker at home from her sister. She also has a walk in shower, a tub, and a toilet riser. She reports that she will likely need a shower chair at home. 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 OT Current Status Subjective Pt. reports 6/10 pain in abdomen. Does ask for pain medication from nursing. Nursing to check. Mental Status/Objective Patient Orientation: Person, Place, Time, Situation Attachments: Colostomy/Ileostomy, Drains, Lam Catheter, IV, Oxygen Current Dentures/Partials: Yes (Not currently wearing.) Hand Dominance: Right Upper Extremity ROM WFL Upper Extremity Strength NT due to recent abdominal surgery and pain. ADL-Treatment Eating (QC): 5 (Set up with soft liquid foods only.) Oral Hygiene (QC): 7 (Pt. declines oral care as she usually wears dentures and currently is not wearing them.) Shower/Bathe Self (QC): 3 (Mod assist overall with sponge bath.) Upper Body Dressing (QC): 7 (Pt. reports that a shirt will be "too binding" on abdomen.) Lower Body Dressing (QC): 7 On/Off Footwear (QC): 2 (Pt. is unable to don slipper socks on her own, so for evaluation purposes, requires max assistance. However, she has been trained using AE, and is able to utilize sock aide to don slipper socks. She is able to doff slipper socks with dressing stick.) Toileting Hygiene (QC): 1 (Pt. has colostomy and catheter.) Other Treatments Pt. seen twice for therapy session. Once in a.m. for initiation of evaluation, and again in p.m. In a.m. session. OT completed partial co-treatment with PT due to need of skilled assistance x 2. OT facilitated hand placement and upright posture in parallel bars while PT facilitated weight shift and gait. Pt . stood x 2 with min x 2, and ambulated approximately 5 feet. (please see PT note for exact distance.) At second session, pt. completed ADLs seated in chair. Pt. has great difficulty with sitting upright or leaning forward, as she has abdominal distention and discomfort. Pt. declines donning street clothing due to multiple abdominal surgery sites. Pt. states that she will be wearing a nightgown at home. Pt. is able to apply lotion to upper body after sponge bath, and OT applies to bilateral LE. Pt. is issued pink therapy sponge for hand strengthening, and completes bilateral hand squeezes x 20 reps each hand. All needs are met up in chair. Education OT Patient Education: Correct positioning, Exercise program, Modified ADL techniques, Progress toward Goal/Update tx plan, Purpose of tx/functional activities, Reviewed precautions, Rehab process, Transfer techniques Teaching Recipient: Patient Teaching Methods: Demonstration, Discussion Response to Teaching: Verbalize Understanding, Return Demonstration OT Short Term Goals Short Term Goals Time Frame: Nov 20, 2020 Eatin Oral hygiene: 4 Toileting hygiene: 3 Shower/bathe self: 4 Upper body dressin Lower body dressin Putting on/taking off footwear: 4 OT Half-Way Goals Half-Way Goals Time Frame: Nov 27, 2020 Eating (QC): 6 Oral Hygiene (QC): 6 Toileting Hygiene (QC): 6 Shower/Bathe Self (QC): 4 Upper Body Dressing (QC): 5 Lower Body Dressing (QC): 4 On/Off Footwear (QC): 4 Additional Goals: 1-Demonstrate ADL Tasks, 2-Verbalize Understanding, 3- ImproveStrength/[place] 1=Demonstrate adherence to instructed precautions during ADL tasks. 2=Patient will verbalize/demonstrate understanding of assistive devices/modifications for ADL. 3=Patient will improve strength/tolerance for activity to enable patient to perform ADL's. OT Education/Plan Problem List/Assessment Assessment: Decreased Activ Tolerance, Dependent Transfers, Impaired Funct Balance, Impaired I ADL's, Impaired Self-Care Skills Discharge Recommendations Plan/Recommendations: Continue POC Therapy Discharge Recommendati: Scheduled Assistance, Home & Family, Post Acute OT Equpiment Recommendations-D/C: Bath Chair, Hip Kit Treatment Plan/Plan of Care Treatment,Training & Education: Yes Patient would benefit from OT for education, treatment and training to promote independence in ADL's, mobility, safety and/or upper extremity function for ADL's. Plan of Care: ADL Retraining, Functional Mobility, Group Exercise/Act as Ind, UE Funct Exercise/Act Treatment Duration: Nov 27, 2020 Frequency: At least 5 of 7 days/Wk (IRF) Estimated Hrs Per Day: 1.5 hours per day Agreement: Yes Rehab Potential: Good Time/GCodes Start Time: 11:00 Stop Time: 13:50 Total Time Billed (hr/min): 90 Billed Treatment Time 8485-1434 1, EVH [id number] FA x 15minutes. Co-treatment with PT. Please see above note for designated roles. 4451-2777 1, ADL x 65minutes KOKI STOKES OT Nov 13, 2020 14:08
--- NOTE | 2020-11-13 14:57 | Physical Therapy Daily Note ---
PT Daily Note-Current Subjective Patient in recliner pre tx, agrees to PT, has 5/10 pain in abdomen, states she feels a little better this afternoon. Appearance Patient in bed post tx with nurse call, phone, tray, all needs met. Mental Status Patient Orientation: Person, Place, Situation Attachments: Oxygen, Lam Catheter, IV Transfers SCALE: Activities may be completed with or without assistive devices. 9-Ewadswvvkr-jcbquuy completes the activity by him/herself with no assistance from a helper. 5-Set-up or Clean-up Assistance-helper sets up or cleans up; patient completes activity. [place] assists only prior to or following the activity. 4-Supervision or Touching Assistance-helper provides verbal cues and/or touching/steadying and/or contact guard assistance as patient completes activity. Assistance may be provided throughout the activity or intermittently. 3-Partial/Moderate Assistance-helper does LESS THAN HALF the effort. [place] lifts, holds or supports trunk or limbs, but provides less than half the effort. 2-Substantial/Maximal Assistance-helper does MORE THAN HALF the effort. [place] lifts or holds trunk or limbs and provides more than half the effort. 0-Ofsadzilk-cllcbo does ALL the effort. Patient does none of the effort to complete the activity. Or, the assistance of 2 or more helpers is required for the patient to complete the activity. If activity was not attempted, code reason: 7-Patient Refused. 9-Not Applicable-not attempted and the patient did not perform the activity before the current illness, exacerbation or injury. 10-Not Attempted due to Environmental Limitations-(lack of equipment, weather restraints, etc.). 88-Not Attempted due to Medical Conditions or Safety Concerns. Roll Left & Right (QC): 3 Sit to Lying (QC): 2 Sit to Stand (QC): 4 Chair/Ryq-ht-Cmnpr Xfer(QC): 4 Gait Training Distance: 6' Gait Persons Needed: 1 Gait Assistive Device: FWW CGA, slow but steady ambulation, better endurance and strength this afternoon Exercises Supine Ex: Ankle pumps, Quad Set, Glut sets, Heel Slides, Short Arc Quads, Straight leg raise (AAROM), Hip abd/add Supine Reps: 20 Treatments transfers, ambulation, LE exercise Assessment Current Status: Fair Progress improved transfers and ambulation PT Short Term Goals Short Term Goals Time Frame: Nov 20, 2020 Roll Left & Right: 4 Sit to lyin Lying to sitting on side of be: 3 Sit to stand: 4 Chair/mas-uj-equfm transfer: 4 Walk 10 feet: 4 PT Longterm Goals Product Craftsman Goals PT Longterm Goals Time Frame: Dec 04, 2020 Roll Left & Right (QC): 4 (SBA) Sit to Lying (QC): 4 (SBA) Lying-Sitting on Side/Bed(QC): 4 (SBA) Sit to Stand (QC): 4 (SBA) Chair/Cbq-dw-Uoqpi Xfer(QC): 4 (SBA) Toilet Transfer (QC): 4 (SBA) Car Transfer (QC): 3 (Darren) Does the Patient Walk: Yes Walk 10 feet (QC): 4 (SBA) Walk 50ft with 2 Turns (QC): 4 (SBA) Walk 150 ft (QC): 88 Walking 10ft on Uneven Surface: 4 (SBA) 1 Step (curb) (QC): 4 (CGA) 4 Steps (QC): 4 (CGA) 12 Steps (QC): 88 Picking up an Object (QC): 88 Wheel 50 feet with 2 turns (QC: 4 Wheel 150 feet: 88 PT Plan Problem List Problem List: Activity Tolerance, Functional Strength, Safety, Balance, Gait, Transfer, Bed Mobility, ROM Treatment/Plan Treatment Plan: Continue Plan of Care Treatment Plan: Bed Mobility, Education, Functional Activity [place], Functional Strength, Gait, Safety, Therapeutic Exercise, Transfers Treatment Duration: Dec 04, 2020 Frequency: At least 5 of 7 days/Wk (IRF) Estimated Hrs Per Day: 1.5 hours per day Patient and/or Family Agrees t: Yes Safety Risks/Education Patient Education: Gait Training, Transfer Techniques, Correct Positioning, Safety Issues Teaching Recipient: Patient Teaching Methods: Demonstration, Discussion Response to Teaching: Reinforcement Needed Time/GCodes Time In: 1430 Time Out: 1500 Total Billed Treatment Time: 30 Total Billed Treatment 1 visit FA 10' EX 20' RAMOS POLLOCK PT Nov 13, 2020 14:57
[2020-11-13] MEDS ORDERED: POTASSIUM ACETATE IV SCH ×30 (17:00)
[2020-11-13] MEDS ORDERED: [UNRECOGNIZED DRUG - OTHER] IV SCH ×30 (17:00)
[2020-11-13] MEDS ORDERED: POTASSIUM CHLORIDE IV SCH ×30 (17:00)
[2020-11-13] MEDS: metroNIDAZOLE 500MG/100ML IVPB 100 ML IV SCH (17:14)
[2020-11-13 17:26] VITALS: BP 120/56
[2020-11-13] MEDS: ENOXAPARIN 40 MG/0.4 ML (LOVENOX) SYR SC SCH (20:12)
[2020-11-13] MEDS ORDERED: ENOXAPARIN 40 MG/0.4 ML (LOVENOX) SYR SC SCH (21:00)
[2020-11-13] MEDS: HYDROcodone/APAP 7.5MG-325 MG/15 ML (LORTAB) UDC PO PRN (21:26)
[2020-11-14] MEDS: fentaNYL INJECTION 100 MCG/2 ML AMP IVP PRN ×5 (00:54→12:08)
[2020-11-14] MEDS: metroNIDAZOLE 500MG/100ML IVPB 100 ML IV SCH ×3 (02:00→17:25)
[2020-11-14] MEDS: HYDROcodone/APAP 7.5MG-325 MG/15 ML (LORTAB) UDC PO PRN (02:10)
[2020-11-14] MEDS: METOCLOPRAMIDE INJ 10 MG/2 ML (REGLAN) IVP SCH ×4 (05:26→23:32)
[2020-11-14 06:30] VITALS: BP 132/60
[2020-11-14] MEDS ORDERED: PATIENT MAY USE OWN MED,SINGLE MED INH SCH (08:00)
[2020-11-14] MEDS: FLUCONAZOLE 200 MG/100 ML 50 ML, EMPTY IV BAG (PVC) 1 EA IV SCH ×2 (08:23)
[2020-11-14 08:50] LABS: ALBUMIN 2.1 GM/DL (3.2-4.5); BILIRUBIN,TOTAL 0.9 MG/DL (0.1-1.0); CALCIUM 8.1 MG/DL (8.5-10.1); CREATININE SERUM 0.94 MG/DL (0.60-1.30); MAGNESIUM 2.5 MG/DL (1.6-2.4); PHOSPHORUS 3.9 MG/DL (2.3-4.7); POTASSIUM 4.5 MMOL/L (3.6-5.0)
[2020-11-14] MEDS ORDERED: meTOproloL SUCCINATE 50 MG (TOPROL XL) TAB PO SCH (09:00)
[2020-11-14] MEDS ORDERED: BISACODYL 10 MG SUPP (DULCOLAX) PR SCH ×2 (09:00)
[2020-11-14] MEDS ORDERED: FLUCONAZOLE 200 MG/100 ML 50 ML, EMPTY IV BAG (PVC) 1 EA IV SCH ×2 (09:00)
[2020-11-14] MEDS ORDERED: PANTOPRAZOLE 40 MG (PROTONIX) VIAL IV SCH (09:00)
[2020-11-14] MEDS ORDERED: NICOTINE 14 MG (NICODERM) PATCH TD SCH (09:00)
[2020-11-14] MEDS ORDERED: SENNA W/DOCUSATE (SENOKOT S) TABLET PO SCH (09:00)
[2020-11-14] MEDS: NICOTINE 14 MG (NICODERM) PATCH TD SCH (09:37)
[2020-11-14] MEDS: meTOproloL SUCCINATE 50 MG (TOPROL XL) TAB PO SCH (09:37)
[2020-11-14] MEDS: SENNA W/DOCUSATE (SENOKOT S) TABLET PO SCH (09:37)
[2020-11-14] MEDS: PANTOPRAZOLE 40 MG (PROTONIX) VIAL IV SCH (09:38)
[2020-11-14] MEDS: DOCUSATE SODIUM 100 MG (COLACE) CAP PO SCH ×2 (09:51→20:43)
[2020-11-14] MEDS: polyethylene glycoL POWDER 17 GM (MIRALAX) PACK PO SCH ×2 (09:52→20:43)
--- NOTE | 2020-11-14 09:55 | Occupational Ther Daily Note ---
OT Current Status-Daily Note Subjective Pt alert, lying in bed. Pt agrees to therapy. C/o pain with movement and bending, pain meds given. Mental Status/Objective Patient Orientation: Person, Place, Time, Situation Attachments: Drains, Lam Catheter, IV, Oxygen (3L) ADL-Treatment Pt agrees to sponge bath. Pt educated on log roll to go from supine to sit due to increased pain/pressure with abdomen edema and incisions. Mod A for supine to EOB with less pain. CGA to transfer from bed to recliner with assist to manipulate all tubing. After set up, pt able to complete upper body, red area and upper legs. Assist to complete feet/lower legs and buttocks. Pt has demonstrated ability to doff socks with dressing stick and don with sock aide though due to increased abdominal pain. Pt took increased time to complete tasks due to fatigue, decreased mobility and pain with lengthy recovery breaks. Pt able to go from sit to stand with CGA pushing up from surface and reaching for FWW. After session, pt sitting in recliner with call light/phone in reach. Physician student and nrsg in room. All needs met in room. Therapy Code Descriptions/Definitions Functional [place] Measure: 0=Not Assessed/NA 4=Minimal Assistance 1=Total Assistance 5=Supervision or Setup 2=Maximal Assistance 6=Modified [place] 3=Moderate Assistance 7=Complete IndependenceSCALE: Activities may be completed with or without assistive devices. 3-Hqiaxwfiqb-kvankhx completes the activity by him/herself with no assistance from a helper. 5-Set-up or Clean-up Assistance-helper sets up or cleans up; patient completes activity. [place] assists only prior to or following the activity. 4-Supervision or Touching Assistance-helper provides verbal cues and/or touching/steadying and/or contact guard assistance as patient completes activity. Assistance may be provided throughout the activity or intermittently. 3-Partial/Moderate Assistance-helper does LESS THAN HALF the effort. [place] lifts, holds or supports trunk or limbs, but provides less than half the effort. 2-Substantial/Maximal Assistance-helper does MORE THAN HALF the effort. [place] lifts or holds trunk or limbs and provides more than half the effort. 9-Rddjqhjdw-psevjf does ALL the effort. Patient does none of the effort to complete the activity. Or, the assistance of 2 or more helpers is required for the patient to complete the activity. If activity was not attempted, code reason: 7-Patient Refused. 9-Not Applicable-not attempted and the patient did not perform the activity before the current illness, exacerbation or injury. 10-Not Attempted due to Environmental Limitations-(lack of equipment, weather restraints, etc.). 88-Not Attempted due to Medical Conditions or Safety Concerns. Oral Hygiene (QC): 7 Bathing Location: L Arm, R Arm, L Upper Leg, R Upper Leg, Chest, Abdomen, Perineal Area Shower/Bathe Self (QC): 3 On/Off Footwear: 2 OT Short Term Goals Short Term Goals Time Frame: Nov 20, 2020 Eatin Oral hygiene: 4 Toileting hygiene: 3 Shower/bathe self: 4 Upper body dressin Lower body dressin Putting on/taking off footwear: 4 OT Delivery Table Operator Goals Delivery Table Operator Goals Time Frame: Nov 27, 2020 Eating (QC): 6 Oral Hygiene (QC): 6 Toileting Hygiene (QC): 6 Shower/Bathe Self (QC): 4 Upper Body Dressing (QC): 5 Lower Body Dressing (QC): 4 On/Off Footwear (QC): 4 Additional Goals: 1-Demonstrate ADL Tasks, 2-Verbalize Understanding, 3- ImproveStrength/Palak 1=Demonstrate adherence to instructed precautions during ADL tasks. 2=Patient will verbalize/demonstrate understanding of assistive devices/modifications for ADL. 3=Patient will improve strength/tolerance for activity to enable patient to perform ADL's. OT Education/Plan Problem List/Assessment Assessment: Decreased Activ Tolerance, Decreased UE Strength, Impaired Self- Care Skills Discharge Recommendations Plan/Recommendations: Continue POC Treatment Plan/Plan of Care Patient would benefit from OT for education, treatment and training to promote independence in ADL's, mobility, safety and/or upper extremity function for ADL's. Plan of Care: ADL Retraining, Functional Mobility, Group Exercise/Act as Ind, UE Funct Exercise/Act Treatment Duration: Nov 27, 2020 Frequency: At least 5 of 7 days/Wk (IRF) Estimated Hrs Per Day: 1.5 hours per day Agreement: Yes Rehab Potential: Good Time/GCodes Start Time: 08:30 Stop Time: 10:00 Total Time Billed (hr/min): 90 Billed Treatment Time 1 visit-ADL 6 (90 min) RAIZA BROWNING Nov 14, 2020 09:55
[2020-11-14] MEDS: ANORO ELLIPTA INH SCH (10:12)
--- NOTE | 2020-11-14 10:48 | PM&R Progress Note ---
Subjective HPI/CC On Admission Date Seen by Provider: Nov 14, 2020 Time Seen by Provider: 11:00 Subjective/Events-last exam 11/14/20: Pain is an issue Increasing Fentanyl to 100 micrograms IV every 4 hrs and we will place a Fentanyl Patch of 25 micrograms and initiate Oxycodone 5mg every 3hrs Clear liquid diet due to continued nausea Bowels are moving After rounds later in afternoon Dr Lynch dx with another post op ileus so placed her NPO and changed her med to Dilaudid Review of Systems General: Fatigue, Malaise Gastrointestinal: Nausea, Vomiting, Abdominal Pain Objective Exam Vital Signs Vital Signs Date Time Temp Pulse Resp B/P (MAP) Pulse Ox O2 Delivery O2 Flow Rate FiO2 11/14/20 21:00 93 Nasal Cannula 3.00 11/14/20 16:27 36.0 101 20 106/55 (72) Capillary Refill : General Appearance: No Apparent Distress, WD/WN, Anxious, Chronically ill HEENT: PERRL/EOMI, Normal ENT Inspection, Pharynx Normal Neck: Full Range of Motion, Normal Inspection, Non Tender, Supple, Carotid Bruit Respiratory: Chest Non Tender, Lungs Clear, No Accessory Muscle Use, No Respiratory Distress, Decreased Breath Sounds Cardiovascular: Regular Rate, Rhythm, No Gallop, No JVD, No Murmur, Normal Peripheral Pulses Gastrointestinal: Normal Bowel Sounds, No Organomegaly, No Pulsatile Mass, Abnormal Bowel Sounds, Distended, Tenderness Back: Normal Inspection, No CVA Tenderness, No Vertebral Tenderness Extremity: Normal Capillary Refill, Normal Inspection, Normal Range of Motion, Non Tender, No Calf Tenderness, Pedal Edema Neurologic/Psychiatric: Alert, Oriented x3, No Motor/Sensory Deficits, Normal Mood/Affect, 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 FIM Transfers Therapy Code Descriptions/Definitions Functional [place] Measure: 0=Not Assessed/NA 4=Minimal Assistance 1=Total Assistance 5=Supervision or Setup 2=Maximal Assistance 6=Modified [place] 3=Moderate Assistance 7=Complete IndependenceSCALE: Activities may be completed with or without assistive devices. 5-Bdssntcmie-gfycfgd completes the activity by him/herself with no assistance from a helper. 5-Set-up or Clean-up Assistance-helper sets up or cleans up; patient completes activity. [place] assists only prior to or following the activity. 4-Supervision or Touching Assistance-helper provides verbal cues and/or touching/steadying and/or contact guard assistance as patient completes activity. Assistance may be provided throughout the activity or intermittently. 3-Partial/Moderate Assistance-helper does LESS THAN HALF the effort. Fowler lifts, holds or supports trunk or limbs, but provides less than half the effort. 2-Substantial/Maximal Assistance-helper does MORE THAN HALF the effort. Fowler lifts or holds trunk or limbs and provides more than half the effort. 5-Tokitvspy-fcdwnx does ALL the effort. Patient does none of the effort to complete the activity. Or, the assistance of 2 or more helpers is required for the patient to complete the activity. If activity was not attempted, code reason: 7-Patient Refused. 9-Not Applicable-not attempted and the patient did not perform the activity before the current illness, exacerbation or injury. 10-Not Attempted due to Environmental Limitations-(lack of equipment, weather restraints, etc.). 88-Not Attempted due to Medical Conditions or Safety Concerns. Roll Left to Right (QC): 3 Sit to Lying (QC): 2 Sit to Stand (QC): 4 Chair/Ksd-ik-Pcale Xfer(QC): 4 Car Transfer (QC): 88 Gait Training Does the Patient Walk?: Yes Distance: 6' Walk 10 feet (QC): 88 Walk 50 ft with 2 Turns(QC): 88 Walk 150 ft (QC): 88 Walking 10ft/uneven surface-QC: 88 Gait Persons Needed: 1 Gait Assistive Device: FWW Wheelchair Training Wheel 50 ft with 2 turns (QC): 88 Wheel 150 ft (QC): 88 Stair Training 1 Step (curb) (QC): 88 4 Steps (QC): 88 12 Steps (QC): 88 Balance Picking up an Object (QC): 88 ADL-Treatment Eating (QC): 5 (Set up with soft liquid foods only.) Oral Hygiene (QC): 7 Bathing Location: L Arm, R Arm, L Upper Leg, R Upper Leg, Chest, Abdomen, Perineal Area Shower/Bathe Self (QC): 3 Upper Body Dressing (QC): 7 (Pt. reports that a shirt will be "too binding" on abdomen.) Lower Body Dressing (QC): 7 On/Off Footwear (QC): 2 Toileting Hygiene (QC): 1 (Pt. 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
--- NOTE | 2020-11-14 10:49 | Individualized Plan of Care ---
Individualized Plan of Care Rehab Nursing IPOC Order Admission Date Nov 13, 2020 at 10:54 Current Orders Orders Admission Order(Inpt,Obs,Sdc) (11/12/20 20:35) Vital Signs: Per Unit Policy ( 08,16,00 (11/12/20 20:35) Ko Keller ,21 (11/12/20 20:35) Sequential Compression Device Q4H (11/12/20 20:35) Director Of Advertising Sales-Inpt Rehab Con (11/12/20 20:35) Rehab Nursing Orders-Ipoc (11/12/20 20:35) Physical Therapy Rehab Orders (11/12/20 20:35) Occupational Therapy Rehab Ord (11/12/20 20:35) Speech Therapy Rehab Orders (11/12/20 20:35) Intake & Output 06,14,22 (11/12/20 20:35) Precautions (Aru) (11/12/20 20:35) Rehab-Intensity Of Therapy (11/12/20 20:35) Initiate Admission Nursing Pro .admission (11/12/20 20:35) Calcium Carbonate Chew Tablet (Antacid C (11/12/20 20:45) Diphenhydramine Tablet (Benadryl Tablet) (11/12/20 20:45) Docusate Sodium Capsule (Colace Capsule) (11/12/20 21:00) Docusate Sodium Capsule (Colace Capsule) (11/12/20 20:45) Bisacodyl Suppository (Dulcolax Supposit (11/12/20 20:45) Lactulose Oral Solution (Enulose Oral So (11/12/20 20:45) Na Phos/Na Biphos Enema (Fleet Enema Leo (11/12/20 20:45) Guaifenesin/Codeine Syrup (Robitussin Ac (11/12/20 20:45) Loperamide Tablet (Imodium Tablet) (11/12/20 20:45) Melatonin Tablet (Melatonin Tablet) (11/12/20 20:45) Polyethylene Glycol Powder Pkt (Miralax (11/12/20 21:00) Ondansetron Oral Dissolve Tab (Zofran (11/12/20 20:45) Senna S Tablet (Senokot S Tablet) (11/12/20 21:00) Initiate Admission Nursing Pro .admission (11/12/20 20:35) Admission Arrival Bed Request (11/13/20 10:54) Code/Resuscitation (11/13/20 11:13) Accucheck Q6hr Q6HR (11/13/20 11:13) Catheter(Uri) To Dependent [place] (11/13/20 11:13) Catheter(Urinary) Discontinue (11/13/20 11:13) HOB (11/13/20 11:13) Ice Chips As Permitted (11/13/20 11:13) Incentive Spirometry (Nursing) Q2H (11/13/20 11:13) Notify Physician: Vital Signs (11/13/20 11:13) Oxygen-Administer 07,19 (11/13/20 11:13) Clear Liquid (11/13/20 Lunch) 1/2 Ns Iv Solution (0.45% Sodium Chlorid (11/13/20 11:15) Acetaminophen Tablet/Caplet (Tylenol T (11/13/20 11:15) Diphenhydramine Injection (Benadryl Inje (11/13/20 11:15) Bisacodyl Suppository (Dulcolax Supposit (11/14/20 09:00) Ciprofloxacin Iv 400mg/200ml (Cipro Iv S (11/13/20 11:15) Fluconazole 200 Mg/100 Ml (Diflucan Iv) (11/14/20 09:00) Enoxaparin Injection (Lovenox Injection) (11/13/20 21:00) Hydrocodone/Apap Oral Solution (Lortab 7 (11/13/20 11:15) Iv Misc (Tpn) (11/13/20 11:15) Melatonin Tablet (Melatonin Tablet) (11/13/20 11:15) Metoclopramide Injection (Reglan Injecti (11/13/20 12:00) Naloxone Injection (Narcan Injection) (11/13/20 11:15) Nicotine Patch (Nicoderm Patch) (11/14/20 09:00) Ondansetron Injection (Zofran Injectio (11/13/20 11:15) Pantoprazole Injection (Protonix Injecti (11/14/20 09:00) Patient May Use Own Med,Single (Patient (11/14/20 08:00) Phenol Throat [place] (Chloraseptic [place]) (11/13/20 11:15) Potassium Chloride Inj (Kcl Iv)... (11/13/20 17:00) Senna S Tablet (Senokot S Tablet) (11/14/20 09:00) Sodium Chloride Flush (Catheter Flush Sy (11/13/20 11:15) Fentanyl Injection (Sublimaze Injection (11/13/20 11:15) Metoprolol Succinate (Xl) Tab (Toprol Xl (11/14/20 09:00) Metronidazole 500mg/100ml Ivpb (Flagyl 5 (11/13/20 11:15) Bipap (Bilevel) Set Up (11/13/20 11:13) Consult Cardiology (11/13/20 11:13) Incentive Spirometry Initial (11/13/20 11:13) Pastoral Consult (11/13/20 11:13) Tpn Pharmacy Consult (11/13/20 11:13) Dietary Consult (11/13/20 11:13) Incentive Spirometry (Nursing) Q2H (11/13/20 11:13) Consult General Surgery (11/13/20 11:13) Fentanyl Injection (Sublimaze Injection (11/13/20 11:15) Oxycodone Immediate Rel Tablet (Oxyir Ta (11/13/20 11:15) 1/2 Ns Iv Solution (0.45% Sodium Chlorid (11/13/20 11:30) Ciprofloxacin Iv 400mg/200ml (Cipro Iv S (11/13/20 11:30) Fluconazole 200 Mg/100 Ml (Diflucan Iv) (11/14/20 09:00) Potassium Chloride Inj (Kcl Iv)... (11/13/20 17:00) Metronidazole 500mg/100ml Ivpb (Flagyl 5 (11/13/20 18:00) Calcium Carbonate Chew Tablet (Antacid C (11/13/20 11:00) Diphenhydramine Tablet (Benadryl Tablet) (11/13/20 11:00) Docusate Sodium Capsule (Colace Capsule) (11/13/20 11:00) Bisacodyl Suppository (Dulcolax Supposit (11/13/20 11:00) Lactulose Oral Solution (Enulose Oral So (11/13/20 11:00) Na Phos/Na Biphos Enema (Fleet Enema Leo (11/13/20 11:00) Guaifenesin/Codeine Syrup (Robitussin Ac (11/13/20 11:00) Loperamide Tablet (Imodium Tablet) (11/13/20 11:00) Ondansetron Oral Dissolve Tab (Zofran (11/13/20 11:00) Acetaminophen Tablet/Caplet (Tylenol T (11/13/20 11:30) Diphenhydramine Injection (Benadryl Inje (11/13/20 11:30) Bisacodyl Suppository (Dulcolax Supposit (11/14/20 09:00) Enoxaparin Injection (Lovenox Injection) (11/13/20 21:00) Hydrocodone/Apap Oral Solution (Lortab 7 (11/13/20 11:30) Iv Misc (Tpn) (11/13/20 11:30) Melatonin Tablet (Melatonin Tablet) (11/13/20 11:30) Metoclopramide Injection (Reglan Injecti (11/13/20 12:00) Naloxone Injection (Narcan Injection) (11/13/20 11:30) Nicotine Patch (Nicoderm Patch) (11/14/20 09:00) Ondansetron Injection (Zofran Injectio (11/13/20 11:30) Pantoprazole Injection (Protonix Injecti (11/14/20 09:00) Patient May Use Own Med,Single (Patient (11/14/20 08:00) Senna S Tablet (Senokot S Tablet) (11/14/20 09:00) Sodium Chloride Flush (Catheter Flush Sy (11/13/20 11:30) Fentanyl Injection (Sublimaze Injection (11/13/20 11:30) Metoprolol Succinate (Xl) Tab (Toprol Xl (11/14/20 09:00) Oxycodone Immediate Rel Tablet (Oxyir Ta (11/13/20 11:30) Phenol Throat [place] (Chloraseptic [place]) (11/13/20 11:30) Potassium Chloride Inj (Kcl Iv)... (11/13/20 17:00) Patient Visit (11/13/20 ) Pt Eval Moderate Complexity (11/13/20 ) Functional Activities, Ea 15 (11/13/20 ) Exercise Therap, Ea 15 Min (11/13/20 ) Patient Visit (11/13/20 ) Exercise Therap, Ea 15 Min (11/13/20 ) Functional Activities, Ea 15 (11/13/20 ) Patient Education (11/13/20 18:37) Comprehensive Metabolic Panel (11/14/20 08:06) Phosphorus (11/14/20 08:06) Magnesium (11/14/20 08:06) Triglycerides (11/14/20 08:06) Fentanyl Injection (Sublimaze Injection (11/14/20 10:45) Fentanyl Patch (Duragesic Patch) (11/14/20 11:00) Cbc With Automated Diff (11/14/20 10:47) Patch Removal (Patch Removal) (11/17/20 10:59) Manual Differential (11/14/20 11:36) Sodium Chloride 14.6% Inj (Sodium Chlori (11/14/20 17:00) Hydromorphone Injection (Dilaudid Inject (11/14/20 13:50) Hydromorphone Injection (Dilaudid Inject (11/14/20 14:00) Nothing By Mouth (11/14/20 Lunch) Abdomen/[place] (11/14/20 14:05) Patient Visit (11/14/20 ) Exercise Therap, Ea 15 Min (11/14/20 ) Functional Activities, Ea 15 (11/14/20 ) Patient Visit (11/14/20 ) Functional Activities, Ea 15 (11/14/20 ) Patient Visit (11/14/20 ) Speech Sound Lang Comp (11/14/20 ) Rehab Nursing Orders: Ongoing Assess. of Cognitive Status, Ongoing Assess. of Function Status, Bladder Management, Bladder Scan, Bladder Training, Bowel Management, Bowel Training, Disease Management & Educaiton, DVT Prophylaxis, Fall Prevention, Fluid/Electrolyte/Nutrition Mgmt, Infection Prevention, Medication Management & Education, Management of Risks & Complications, Nutrition Management, Pain Management, Patient/Family Support, Safety Management Intensity of Therapy to be met Patient to be seen: Min.3h per day/5 of 7d PT IPOC Problem List: Activity Tolerance, Functional Strength, Safety, Balance, Gait, Transfer, Bed Mobility, ROM Treatment Plan: Continue Plan of Care Bed Mobility, Education, Functional Activity [place], Functional Strength, Gait, Safety, Therapeutic Exercise, Transfers Treatment Duration: Dec 04, 2020 Frequency: At least 5 of 7 days/Wk (IRF) Estimated Hrs Per Day: 1.5 hours per day OT IPOC Problems: Decreased Activ Tolerance, Decreased UE Strength, Impaired Self-Care Skills OT Treatment, Training and Edu: Yes Plan of Care: ADL Retraining, Functional Mobility, Group Exercise/Act as Ind, UE Funct Exercise/Act Treatment Duration: Nov 27, 2020 Frequency: At least 5 of 7 days/Wk (IRF) Estimated Hrs Per Day: 1.[address] IPOC Speech Therapy Treatment Plan: Discontinue ST Treatment Duration: Nov 15, 2020 Frequency: Modified Program (IRF) Estimated Hrs Per Day: Other Director Of Advertising Sales/Case Mgmt Director Of Advertising Sales/Case Managemen: Discharge Planning Dietitian/Salesperson Shoes Dietitian/Salesperson Shoes to monitor nutritional status and make changes and/or recommendations as needed and work with speech pathology on dietary upgrades as the occur. Physician IPOC Medical Issues being managed closely and that require the 24 hour availability of a physician: Recent colon resection for colon cancer and then urgent surgery required for torsion with diverting ileostomy and now ileus will require close monitoring for decompensation Medical Issues: Bowel/Bladder Function, DVT Prophylaxis, Falls Precautions, Fluid/Electrolyte/Nutrition Balance, Infection Protection, Pain Management, Wound Care Brief Synthesis of Preadmission Screen, Post-Admission Evaluation, and Therapy Evaluations: PT OT will both focus on regaining ambulatory skills along with regaining ADL independence in order to return to live independently Medical Prognosis: 10 days Anticipated Length of Stay: WILFREDO Knox DO Nov 14, 2020 10:48
--- NOTE | 2020-11-14 10:56 | Physical Therapy Daily Note ---
PT Daily Note-Current Subjective Patient in recliner pre tx, agrees to PT, has 3/10 pain in abdomen Appearance Patient in recliner post tx with nurse call, phone, tray, all needs met, legs elevated and on pillow Mental Status Patient Orientation: Person, Place, Situation Attachments: Oxygen, Drains, Lam Catheter, IV Transfers SCALE: Activities may be completed with or without assistive devices. 3-Ryzariydpc-quabjed completes the activity by him/herself with no assistance from a helper. 5-Set-up or Clean-up Assistance-helper sets up or cleans up; patient completes activity. [place] assists only prior to or following the activity. 4-Supervision or Touching Assistance-helper provides verbal cues and/or touching/steadying and/or contact guard assistance as patient completes activity. Assistance may be provided throughout the activity or intermittently. 3-Partial/Moderate Assistance-helper does LESS THAN HALF the effort. [place] lifts, holds or supports trunk or limbs, but provides less than half the effort. 2-Substantial/Maximal Assistance-helper does MORE THAN HALF the effort. [place] lifts or holds trunk or limbs and provides more than half the effort. 0-Bhvvcgiap-avqgli does ALL the effort. Patient does none of the effort to complete the activity. Or, the assistance of 2 or more helpers is required for the patient to complete the activity. If activity was not attempted, code reason: 7-Patient Refused. 9-Not Applicable-not attempted and the patient did not perform the activity b efore the current illness, exacerbation or injury. 10-Not Attempted due to Environmental Limitations-(lack of equipment, weather restraints, etc.). 88-Not Attempted due to Medical Conditions or Safety Concerns. Sit to Stand (QC): 3 Chair/Ith-jv-Rsgfm Xfer(QC): 3 Gait Training Distance: 5'x3 Gait Persons Needed: 1 Gait Assistive Device: FWW Patient gets shaky and SOB with ambulation Wheelchair Training Does the Pt Use a Wheelchair?: Yes Wheel 50 ft with 2 turns (QC): 4 Type of Wheelchair: Manual 50'x2 SBA, can usually only go a few feet before needing to rest Exercises Seated Therapy Exercises: Ankle pumps, Long arc quads, Hip flexion Seated Reps: 20 Treatments transfers, ambulation, LE strengthening Assessment Current Status: Fair Progress patient needs frequent rest breaks due to fatigue and SOB PT Short Term Goals Short Term Goals Time Frame: Nov 20, 2020 Roll Left & Right: 4 Sit to lyin Lying to sitting on side of be: 3 Sit to stand: 4 Chair/pgs-ql-suliq transfer: 4 Walk 10 feet: 4 PT Longterm Goals Longterm Goals PT Longterm Goals Time Frame: Dec 04, 2020 Roll Left & Right (QC): 4 (SBA) Sit to Lying (QC): 4 (SBA) Lying-Sitting on Side/Bed(QC): 4 (SBA) Sit to Stand (QC): 4 (SBA) Chair/Men-mp-Rdlmy Xfer(QC): 4 (SBA) Toilet Transfer (QC): 4 (SBA) Car Transfer (QC): 3 (Darren) Does the Patient Walk: Yes Walk 10 feet (QC): 4 (SBA) Walk 50ft with 2 Turns (QC): 4 (SBA) Walk 150 ft (QC): 88 Walking 10ft on Uneven Surface: 4 (SBA) 1 Step (curb) (QC): 4 (CGA) 4 Steps (QC): 4 (CGA) 12 Steps (QC): 88 Picking up an Object (QC): 88 Wheel 50 feet with 2 turns (QC: 4 Wheel 150 feet: 88 PT Plan Problem List Problem List: Activity Tolerance, Functional Strength, Safety, Balance, Gait, Transfer, Bed Mobility, ROM Treatment/Plan Treatment Plan: Continue Plan of Care Treatment Plan: Bed Mobility, Education, Functional Activity Palak, Functional Strength, Gait, Safety, Therapeutic Exercise, Transfers Treatment Duration: Dec 04, 2020 Frequency: At least 5 of 7 days/Wk (IRF) Estimated Hrs Per Day: 1.5 hours per day Patient and/or Family Agrees t: Yes Safety Risks/Education Patient Education: Gait Training, Transfer Techniques, Correct Positioning, W/C Management, Safety Issues Teaching Recipient: Patient Teaching Methods: Demonstration, Discussion Response to Teaching: Reinforcement Needed Time/GCodes Time In: 1000 Time Out: 1100 Total Billed Treatment Time: 60 Total Billed Treatment 1 visit EX 10' FA 50' RAMOS POLLOCK PT Nov 14, 2020 10:56
[2020-11-14] MEDS ORDERED: fentaNYL PATCH 25 MCG (DURAGESIC) TD SCH (11:00)
[2020-11-14 11:43] LABS: BASOPHILS # (AUTO) 0.1 10^3/uL (0.0-0.1); BASOPHILS % (AUTO) 0 % (0-10); EOSINOPHILS % (AUTO) 0 % (0-10); HEMATOCRIT 27 % (35-52); HEMOGLOBIN 8.8 g/dL (11.5-16.0); LYMPHOCYTES % (AUTO) 3 % (12-44); MEAN CORPUSCULAR HEMOGLOBIN 31 pg (25-34); MEAN CORPUSCULAR HGB CONC 33 g/dL (32-36); MEAN CORPUSCULAR VOLUME 93 fL (80-99); MEAN PLATELET VOLUME 9.6 fL (9.0-12.2); MONOCYTES # (AUTO) 1.9 10^3/uL (0.0-1.0); MONOCYTES % (AUTO) 7 % (0-12); NEUTROPHILS # (AUTO) 24.2 10^3/uL (1.8-7.8); NEUTROPHILS % (AUTO) 87 % (42-75); PLATELET COUNT 477 10^3/uL (130-400); WHITE BLOOD COUNT 27.8 10^3/uL (4.3-11.0)
[2020-11-14 12:01] LABS: BAND NEUTROPHILS 4 %; LYMPHOCYTES % (MANUAL) 3 %; MONOCYTES % (MANUAL) 5 %; NEUTROPHILS % (MANUAL) 87 %
[2020-11-14] MEDS: 1/2 NS IV SOLUTION 1,000 ML IV SCH ×2 (12:01→23:36)
[2020-11-14 12:02] LABS: ANISOCYTOSIS SLIGHT; PLATELET CLUMPS OCCASIONAL; REACTIVE LYMPHOCYTES 1 %
[2020-11-14] MEDS: CIPROFLOXACIN IV 400MG/200ML 200 ML IV SCH ×2 (12:08→23:35)
--- NOTE | 2020-11-14 12:56 | NUR ---
TPN: BEGIN WEANING TPN. TPN TO RUN AT 41ML/HR, PROVIDING 940 KCAL WITH 75 GM PROTEIN.
[2020-11-14] MEDS ORDERED: HYDROmorphone 2 MG/ML VIAL (DILAUDID) ONE (13:50)
[2020-11-14] MEDS ORDERED: HYDROmorphone 2 MG/ML VIAL (DILAUDID) IV PRN (14:00)
--- NOTE | 2020-11-14 14:09 | ST Cognitive Linguistic Eval ---
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 Chapman Medical History Pertinent Medical History: COPD, HTN Reviewed History: Yes Social History Current Living Status: sister Speech PLF-Current Status Prior Level of Function Patient lived at home with her sister where she was independent for most of her daily needs. Subjective Patient was cooperative with the cognitive assessment even though she c/o abdominal pain as 9/10 at the time. Language Eval: Auditory Comprehends Simple Yes/No Ques: Functional Indent/Objects Multiple Ortiz: Functional Ident/Pics in Multiple Ortiz: Functional Follows 1-Step Commands: Functional Follows Complex Directions: Functional Follows General Conversations: Functional Language Eval: Verbal Language Completes Spontaneous Greeting: Functional Produces Auto, Serial Info: Functional Imitates Simple Words/Phrases: Functional Word Finding: Functional Requests Basic Needs: Functional States Basic Personal Info: Functional Expresses Complex Ideas: Functional Objective Cognitive Domain Attention: WNL Memory: WNL Problem Solving: Functional Executive Functions: WNL Visuospatial Skills: WNL Composite Severity Rating: WNL Clock Drawing Severity Rating: WNL Objective Formal/Standardized Tests [facility] Mental Status ([facility]) Results 27/30, within normal range of function Oral Motor/Speech Production Within Normal Limits Impression Patient is a pleasant 75 y/o female who was admitted to the ARU s/p colon surgery x2 due to CA. Patient is very [place] and requires a little more time due to decreased communication. Patient was given the UMS with a score of 27 /30obtained. This score is within normal range of function and does not indicate a further need for ST. Speech Patient Assess Expression of Ideas/Wants: Expression (4) Understanding Verbal Content: Understands (4) Brief Interview-Mental Status: Yes Repetition of Three Words: Three (3) Temporal Orientation: Year: Correct (3) Temporal Orientation: Month: Accurate within 5 days(2) Temporal Orientation: Day: Correct (1) Recall : Wear to say "Sock": Yes,after cueing (1) Recall : Color: Yes, after cueing (1) Recall : Bed: Yes,after cueing (1) Memory/Recall Ability: Current season, That he or she is in a hsp/hsp unit Speech-Plan Patient/Family Goals Patient/Family Goals: Patient plans on returning to her home where she lives with her sister. Treatment Plan Speech Therapy Treatment Plan: Discontinue ST Treatment Duration: Nov 14, 2020 Frequency: 1 time per week Estimated Hrs Per Day: .5 hour per day Rehab Potential: Good Barriers to Learning: None identified Pt/Family Agrees to Plan: Yes Safety Risks/Education Teaching Recipient: Patient Teaching Methods: Discussion Response to Teaching: Verbalize Understanding Education Topics Provided: Safety within her room, utililization of the call light as needed Time Speech Therapy Time In: 13:00 Speech Therapy Time Out: 13:30 Total Billed Time: 30 Billed Treatment Time 1, SPSNDCOMP LESVIA Lugo Nov 14, 2020 14:09
--- NOTE | 2020-11-14 14:43 | Physical Therapy Daily Note ---
PT Daily Note-Current Subjective Patient has 10/10 abdominal pain, she has refused therapy twice this afternoon due to pain. Doctor saw her, did a procedure on her abdomen, now xray is here to see her and needs her in bed. She can practice standing and transfers and bed mobility on the way back to bed. Appearance Patient in bed post tx, xray personnel in room. Mental Status Patient Orientation: Person, Place, Situation Attachments: Colostomy/Ileostomy, Oxygen, Drains, Lam Catheter, IV Transfers SCALE: Activities may be completed with or without assistive devices. 7-Rmdfioyvpq-mtzvqbz completes the activity by him/herself with no assistance from a helper. 5-Set-up or Clean-up Assistance-helper sets up or cleans up; patient completes activity. [place] assists only prior to or following the activity. 4-Supervision or Touching Assistance-helper provides verbal cues and/or touching/steadying and/or contact guard assistance as patient completes activity. Assistance may be provided throughout the activity or intermittently. 3-Partial/Moderate Assistance-helper does LESS THAN HALF the effort. [place] lifts, holds or supports trunk or limbs, but provides less than half the effort. 2-Substantial/Maximal Assistance-helper does MORE THAN HALF the effort. [place] lifts or holds trunk or limbs and provides more than half the effort. 0-Nmdrqkvuv-itrqce does ALL the effort. Patient does none of the effort to complete the activity. Or, the assistance of 2 or more helpers is required for the patient to complete the activity. If activity was not attempted, code reason: 7-Patient Refused. 9-Not Applicable-not attempted and the patient did not perform the activity before the current illness, exacerbation or injury. 10-Not Attempted due to Environmental Limitations-(lack of equipment, weather restraints, etc.). 88-Not Attempted due to Medical Conditions or Safety Concerns. Roll Left & Right (QC): 1 Sit to Lying (QC): 1 Sit to Stand (QC): 2 Chair/Gnk-fl-Tcgpk Xfer(QC): 2 Patient is not able to stand from chair and ambulate a few feet to the bed. Patient can usually do this. Chair is moved closer to bed and a max assist stand pivot transfer is performed. Patient has a lot of pain and yells during transfer. Dependent for sit to supine. Treatments bed mobility and transfers Assessment Current Status: Poor Progress patient has a lot of pain PT Short Term Goals Short Term Goals Time Frame: Nov 20, 2020 Roll Left & Right: 4 Sit to lyin Lying to sitting on side of be: 3 Sit to stand: 4 Chair/hzr-xq-zepoe transfer: 4 Walk 10 feet: 4 PT Dry Curer Goals [facility] Goals PT Dry Curer Goals Time Frame: Dec 04, 2020 Roll Left & Right (QC): 4 (SBA) Sit to Lying (QC): 4 (SBA) Lying-Sitting on Side/Bed(QC): 4 (SBA) Sit to Stand (QC): 4 (SBA) Chair/Oli-ga-Jejoj Xfer(QC): 4 (SBA) Toilet Transfer (QC): 4 (SBA) Car Transfer (QC): 3 (Darren) Does the Patient Walk: Yes Walk 10 feet (QC): 4 (SBA) Walk 50ft with 2 Turns (QC): 4 (SBA) Walk 150 ft (QC): 88 Walking 10ft on Uneven Surface: 4 (SBA) 1 Step (curb) (QC): 4 (CGA) 4 Steps (QC): 4 (CGA) 12 Steps (QC): 88 Picking up an Object (QC): 88 Wheel 50 feet with 2 turns (QC: 4 Wheel 150 feet: 88 PT Plan Problem List Problem List: Activity Tolerance, Functional Strength, Safety, Balance, Gait, Transfer, Bed Mobility, ROM Treatment/Plan Treatment Plan: Continue Plan of Care Treatment Plan: Bed Mobility, Education, Functional Activity Palak, Functional Strength, Gait, Safety, Therapeutic Exercise, Transfers Treatment Duration: Dec 04, 2020 Frequency: At least 5 of 7 days/Wk (IRF) Estimated Hrs Per Day: 1.5 hours per day Patient and/or Family Agrees t: Yes Safety Risks/Education Patient Education: Transfer Techniques, Correct Positioning, Safety Issues Teaching Recipient: Patient Teaching Methods: Demonstration, Discussion Response to Teaching: Reinforcement Needed Time/GCodes Time In: 1420 Time Out: 1436 Total Billed Treatment Time: 16 Total Billed Treatment 1 visit FA 16' RAMOS POLLOCK PT Nov 14, 2020 14:43
--- NOTE | 2020-11-14 14:52 | Progress Note ---
Subjective Date Seen by a Provider: Nov 14, 2020 Time Seen by a Provider: 13:00 Subjective/Events-last exam patient developed abd distention and pain. minimal ileostomy output. axr consistent with ileus. ileostomy appears partially ischemic with mucosal sloughing. Objective Exam Vital Signs Date Time Temp Pulse Resp B/P (MAP) Pulse Ox O2 Delivery O2 Flow Rate FiO2 11/14/20 10:10 Nasal Cannula 3.00 11/14/20 09:00 94 Nasal Cannula 3.00 11/14/20 06:30 35.6 97 20 132/60 (84) 94 Nasal Cannula 3.00 11/13/20 21:00 94 Nasal Cannula 3.00 11/13/20 17:26 36.4 98 20 120/56 (77) 95 Nasal Cannula 3.00 11/13/20 15:21 Nasal Cannula 3.00 I & O 11/14/20 07:00 Intake Total 960 ml Output Total 1685 ml Balance -725 ml Capillary Refill : General Appearance: No Apparent Distress HEENT: PERRL/EOMI Neck: Full Range of Motion Respiratory: Decreased Breath Sounds, Wheezing Cardiovascular: Regular Rate, Rhythm Gastrointestinal: distended, other (partial ischemia ileostomy with sloughing) Extremity: Normal Capillary Refill Neurologic/Psychiatric: Alert, Oriented x3 Skin: Normal Color Lymphatic: No Adenopathy Results Lab Laboratory Tests 11/13/20 18:32: Glucometer 170H 11/14/20 00:35: Glucometer 217H 11/14/20 05:21: Glucometer 191H 11/14/20 08:21: Sodium Level 135, Potassium Level 4.5, Chloride Level 100, Carbon Dioxide Level 23, Anion Gap 12, Blood Urea Nitrogen 41H, Creatinine 0.94, Estimat Glomerular Filtration Rate 58, BUN/Creatinine Ratio 44, Glucose Level 205H, Calcium Level 8.1L, Corrected Calcium 9.6, Phosphorus Level 3.9, Magnesium Level 2.5H, Total Bilirubin 0.9, Aspartate Amino Transf (AST/SGOT) 30, Alanine Aminotransferase (ALT/SGPT) 27, Alkaline Phosphatase 151H, Total Protein 5.0L, Albumin 2.1L, Triglycerides Level 230H 11/14/20 11:36: White Blood Count 27.8H, Red Blood Count 2.86L, Hemoglobin 8.8L, Hematocrit 27L, Mean Corpuscular Volume 93, Mean Corpuscular Hemoglobin 31, Mean Corpuscular Hemoglobin Concent 33, Red Cell Distribution Width 15.8H, Platelet Count 477H, Mean Platelet Volume 9.6, Immature Granulocyte % (Auto) 2, Neutrophils (%) (Auto) 87H, Lymphocytes (%) (Auto) 3L, Monocytes (%) (Auto) 7, Eosinophils (%) (Auto) 0, Basophils (%) (Auto) 0, Neutrophils # (Auto) 24.2H, Lymphocytes # (Auto) 1.0, Monocytes # (Auto) 1.9H, Eosinophils # (Auto) 0.0, Basophils # (Auto) 0.1, Immature Granulocyte # (Auto) 0.6H, Neutrophils % (Manual) 87, Lymphocytes % (Manual) 3, Monocytes % (Manual) 5, Band Neutrophils 4, Reactive Lymphocytes 1, Clumped Platelets OCCASIONAL, Anisocytosis SLIGHT 11/14/20 11:53: Glucometer 210H Assessment/Plan Assessment/Plan Assess & Plan/Chief Complaint s/p extended right hemicolectomy, re-exploration and ileostomy and mucous f istula. has significant ileus. NPO. possible NGT. MICHAEL XIONG MD Nov 14, 2020 14:52
--- NOTE | 2020-11-14 15:22 | NUR ---
"RD ASSESSMENT PMHx: COPD; CA(colon); chronic constipation; s/p R hemicolectomy with end ileostomy; PT INTERACTION: Pt was awake and pleasant during nutrition consult for TPN. Pt states current appetite is slowly getting better. Note avg PO intake 25% x2meal, per chart review. Note pt receiving TPN providing 940 kcal (71% of needs) and 75 g Pro (71% of needs), per chart review. Pt states no issues with n/v/c/d since last assessment. Note pt has ileostomy and currently on bowel regimen of colace BID, miralax BID, senna qd, and bisacodyl qd, per chart review. Est. kcal needs: 8165-0860 kcal | 15-18 kcal/kg Est. Pro needs: 106-123 g Pro | 0.8-1.0 g Pro/kg PES STATEMENT: Inadequate oral intake (NI-2.1) related to loss of appetite as evidenced by pt interview, and avg PO intake 25% x2meal. INTERVENTION: Note pt currently NPO. Would recommend continuing with TPN to provide nutritional needs. Recommend formula to provide 1325 kcal (15 kcal/kg) and 106 g Pro (1.2 g Pro/kg). Will continue to follow and reassess as pt needs, intake, and status change. Kyra MACIEL MS RD LD [phone] cell"
--- NOTE | 2020-11-14 15:29 | Diagnostic Imaging Report ---
INDICATION: Worsened pain. COMPARISON: Compared with study 09/09/2021. FINDINGS: Gaseous dilatation of the abdominal small bowel diffusely is a redemonstrated finding and is not substantially changed radiographically. This could be ileus or obstruction in this patient with previous colectomy. There is some air in the stomach which is mildly distended. IMPRESSION: Similar degree of gaseous dilatation of small bowel diffusely and mild ectasia of the stomach. Dictated by: Dictated on workstation # [id number]
--- NOTE | 2020-11-14 15:56 | NUR ---
CM/SS ADMISSION Patient was admitted to ARU from [facility] 11/13/20 for Disuse Myopathy. 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 She remains on TPN, currently on a wean plan. Patient resides at home with her sister Samara Roldan, although Samara works M-F about 28 hours weekly. Patient indicates her sister could take off work to assist with her care at discharge. Very hard of hearing, complicated with masking, must be on patient's left side for best communication. PCP: Tish Ba MD [facility]: [facility] INSURANCE: Medicare, [employer] DME: Has FWW. Currently O2 dependent, may need shower chair, wheelchair. BARRIERS TO DISCHARGE: Surgery x 2 with complications increasing debility and rate of recovery. CONTACTS: Samara Roldan, Sister [address] [place] [id number] Dav Pinto, Son [address] [place] [id number] Lesly Pinto, Daughter Patient understands the purpose and process of the weekly patient care conference and that her first review will be Friday, November 20, 2020.
[2020-11-14 16:27] VITALS: BP 106/55
[2020-11-14] MEDS ORDERED: [UNRECOGNIZED DRUG - OTHER] IV SCH ×10 (17:00)
[2020-11-14] MEDS ORDERED: SODIUM CHLORIDE IV SCH ×10 (17:00)
[2020-11-14] MEDS ORDERED: POTASSIUM ACETATE IV SCH ×10 (17:00)
--- NOTE | 2020-11-14 18:35 | NUR ---
# 16 NG TUBE INSERTED INTO LEFT NOSTRIL AFTER X 2 ATTEMPTS. EBENEZER. WELL. LARGE AMT. GREEN LIQUID RETURN.
[2020-11-14] MEDS: ENOXAPARIN 40 MG/0.4 ML (LOVENOX) SYR SC SCH (20:48)
[2020-11-15] MEDS: metroNIDAZOLE 500MG/100ML IVPB 100 ML IV SCH ×2 (02:05→09:43)
[2020-11-15] MEDS: fentaNYL INJECTION 100 MCG/2 ML AMP IVP PRN ×3 (02:32→10:04)
[2020-11-15] MEDS: METOCLOPRAMIDE INJ 10 MG/2 ML (REGLAN) IVP SCH ×2 (05:32→11:32)
[2020-11-15 05:38] VITALS: BP 129/60
[2020-11-15] MEDS: PANTOPRAZOLE 40 MG (PROTONIX) VIAL IV SCH (08:12)
[2020-11-15] MEDS: meTOproloL SUCCINATE 50 MG (TOPROL XL) TAB PO SCH (08:12)
[2020-11-15] MEDS: NICOTINE 14 MG (NICODERM) PATCH TD SCH (08:14)
[2020-11-15] MEDS: polyethylene glycoL POWDER 17 GM (MIRALAX) PACK PO SCH (08:22)
[2020-11-15] MEDS: DOCUSATE SODIUM 100 MG (COLACE) CAP PO SCH (08:22)
[2020-11-15] MEDS: FLUCONAZOLE 200 MG/100 ML 50 ML, EMPTY IV BAG (PVC) 1 EA IV SCH ×2 (08:22)
[2020-11-15] MEDS: SENNA W/DOCUSATE (SENOKOT S) TABLET PO SCH (08:23)
[2020-11-15] MEDS: ANORO ELLIPTA INH SCH (08:24)
--- NOTE | 2020-11-15 09:28 | Physical Therapy Daily Note ---
PT Daily Note-Current Subjective Pt. in bed reclined with dyspnea noted, pt. agrees to "try to exercise and get up to recliner, but you'll need help" Pain Numeric Pain Scale: 4 Location: Medial Location Body Site: Abdomen Pain Description: Pressure Appearance dyspnea , shallow breaths with grunting , sallow/jaundiced skin color, tight edematous abdomen, much difficulty with activity secondary to previous, Mental Status Patient Orientation: Person Attachments: NG Tube, Colostomy/Ileostomy, Oxygen, Drains, Lam Catheter Transfers SCALE: Activities may be completed with or without assistive devices. 8-Netxiwzeve-ofkgcrl completes the activity by him/herself with no assistance from a helper. 5-Set-up or Clean-up Assistance-helper sets up or cleans up; patient completes activity. [place] assists only prior to or following the activity. 4-Supervision or Touching Assistance-helper provides verbal cues and/or touching/steadying and/or contact guard assistance as patient completes activity. Assistance may be provided throughout the activity or intermittently. 3-Partial/Moderate Assistance-helper does LESS THAN HALF the effort. [place] lifts, holds or supports trunk or limbs, but provides less than half the effort. 2-Substantial/Maximal Assistance-helper does MORE THAN HALF the effort. [place] lifts or holds trunk or limbs and provides more than half the effort. 1-Rqqbmdagq-mivtdz does ALL the effort. Patient does none of the effort to complete the activity. Or, the assistance of 2 or more helpers is required for the patient to complete the activity. If activity was not attempted, code reason: 7-Patient Refused. 9-Not Applicable-not attempted and the patient did not perform the activity before the current illness, exacerbation or injury. 10-Not Attempted due to Environmental Limitations-(lack of equipment, weather restraints, etc.). 88-Not Attempted due to Medical Conditions or Safety Concerns. Roll Left & Right (QC): 2 Lying to Sitting/Side of Bed(Q: 3 (w HOB up) Sit to Stand (QC): 3 Chair/Prn-hg-Kwuyz Xfer(QC): 3 (w assist of 2) PT OT as well as nursing for assist in room co Rx for TRF as pt. required assist with U&L extremities and to manage all tubes (many) safely. Pt. more SOB with activity , very poor tolerance Exercises Supine Ex: Ankle pumps, Quad Set, Glut sets, Heel Slides, Hip abd/add Supine Reps: 15 Treatments bed exercises and TRF bed to recliner, pt.sat EOB 7 min before TRF, TRF requiring Mod assist of 2 with pt demonstrating poor tolerance and very frail and weak. pt. positioned with pillows and head and foot elevated to most advantageous position for all considered Assessment Current Status: Poor Progress poor tolerance for med mobility and TRF training, dyspnea, extreme weakness PT Short Term Goals Short Term Goals Time Frame: Nov 20, 2020 Roll Left & Right: 4 Sit to lyin Lying to sitting on side of be: 3 Sit to stand: 4 Chair/fil-ym-fizqy transfer: 4 Walk 10 feet: 4 PT Retirement Goals Retirement Goals PT Retirement Goals Time Frame: Dec 04, 2020 Roll Left & Right (QC): 4 (SBA) Sit to Lying (QC): 4 (SBA) Lying-Sitting on Side/Bed(QC): 4 (SBA) Sit to Stand (QC): 4 (SBA) Chair/Npp-mj-Iurjz Xfer(QC): 4 (SBA) Toilet Transfer (QC): 4 (SBA) Car Transfer (QC): 3 (Darren) Does the Patient Walk: Yes Walk 10 feet (QC): 4 (SBA) Walk 50ft with 2 Turns (QC): 4 (SBA) Walk 150 ft (QC): 88 Walking 10ft on Uneven Surface: 4 (SBA) 1 Step (curb) (QC): 4 (CGA) 4 Steps (QC): 4 (CGA) 12 Steps (QC): 88 Picking up an Object (QC): 88 Wheel 50 feet with 2 turns (QC: 4 Wheel 150 feet: 88 PT Plan Treatment/Plan Treatment Plan: Continue Plan of Care Treatment Plan: Bed Mobility, Education, Functional Activity Palak, Functional Strength, Gait, Safety, Therapeutic Exercise, Transfers Treatment Duration: Dec 04, 2020 Frequency: At least 5 of 7 days/Wk (IRF) Estimated Hrs Per Day: 1.5 hours per day Patient and/or Family Agrees t: Yes Safety Risks/Education Patient Education: Transfer Techniques, Correct Positioning, Disease Process, Safety Issues Teaching Recipient: Patient Teaching Methods: Demonstration, Discussion Response to Teaching: Verbalize Understanding, Return Demonstration, Reinfo rcement Needed pt. very [place] Time/GCodes Time In: 845 Time Out: 920 Total Billed Treatment Time: 35 Total Billed Treatment 1,EX13m,FA22 15m Co Rx PT OT DUSTIN MARSH WINDOW TRIMMER APPRENTICE Nov 15, 2020 09:28
--- NOTE | 2020-11-15 09:30 | NUR ---
DR. MARTÍNEZ NOTIFIED OF LOW URINE OUTPUT AND DARK CONCENTRATED BILE LIKE COLOR.
--- NOTE | 2020-11-15 10:00 | Occupational Ther Daily Note ---
OT Current Status-Daily Note Subjective Pt alert, lying in bed. Pt agrees to therapy. Pt has NG tube, fatigues easily and increased pain with movement. Mental Status/Objective Patient Orientation: Person, Place, Time, Situation Attachments: Drains, Lam Catheter, IV, NG Tube, Oxygen ADL-Treatment Co-treat with PT [phone], skills of 2 clinicians required for skilled care and instruction due to increased fatigue, pain with movement and decreased mobility. PT focusing on mobility and transfers while OT focusing on B UE placement and placement of tubing during transfers. Assist x2 for supine to EOB due to decreased mobility and pain. Assist to sit EOB due to abdominal pain while sitting. Pt unable to push to standing, assist x2 to complete SPT from EOB to recliner. Pt made comfortable in recliner. Therapy Code Descriptions/Definitions Functional [place] Measure: 0=Not Assessed/NA 4=Minimal Assistance 1=Total Assistance 5=Supervision or Setup 2=Maximal Assistance 6=Modified [place] 3=Moderate Assistance 7=Complete IndependenceSCALE: Activities may be completed with or without assistive devices. 9-Yivrxmrkct-hwdotxd completes the activity by him/herself with no assistance from a helper. 5-Set-up or Clean-up Assistance-helper sets up or cleans up; patient completes activity. [place] assists only prior to or following the activity. 4-Supervision or Touching Assistance-helper provides verbal cues and/or touching/steadying and/or contact guard assistance as patient completes activity. Assistance may be provided throughout the activity or intermittently. 3-Partial/Moderate Assistance-helper does LESS THAN HALF the effort. [place] lifts, holds or supports trunk or limbs, but provides less than half the effort. 2-Substantial/Maximal Assistance-helper does MORE THAN HALF the effort. [place] lifts or holds trunk or limbs and provides more than half the effort. 5-[place]-aepnba does ALL the effort. Patient does none of the effort to complete the activity. Or, the assistance of 2 or more helpers is required for the patient to complete the activity. If activity was not attempted, code reason: 7-Patient Refused. 9-Not Applicable-not attempted and the patient did not perform the activity before the current illness, exacerbation or injury. 10-Not Attempted due to Environmental Limitations-(lack of equipment, weather restraints, etc.). 88-Not Attempted due to Medical Conditions or Safety Concerns. Other Treatment While sitting in recliner, pt completed UE gross/fine motor task to increase strength and activity tolerance. Completed task with only R UE against gravity. Pt took increased time to complete movement and used pursed lip breathing throughout. Required 1 lengthy recovery break. After therapy, pt sitting in recliner with call light/phone in reach. All needs met in room. OT Short Term Goals Short Term Goals Time Frame: Nov 20, 2020 Eatin Oral hygiene: 4 Toileting hygiene: 3 Shower/bathe self: 4 Upper body dressin Lower body dressin Putting on/taking off footwear: 4 OT [employer] Electrical Helper Goals Nursing Home Goals Time Frame: Nov 27, 2020 Eating (QC): 6 Oral Hygiene (QC): 6 Toileting Hygiene (QC): 6 Shower/Bathe Self (QC): 4 Upper Body Dressing (QC): 5 Lower Body Dressing (QC): 4 On/Off Footwear (QC): 4 Additional Goals: 1-Demonstrate ADL Tasks, 2-Verbalize Understanding, 3- ImproveStrength/Palak 1=Demonstrate adherence to instructed precautions during ADL tasks. 2=Patient will verbalize/demonstrate understanding of assistive devices/modifications for ADL. 3=Patient will improve strength/tolerance for activity to enable patient to perform ADL's. OT Education/Plan Problem List/Assessment Assessment: Decreased Activ Tolerance, Decreased UE Strength, Impaired Bed Mobility, Impaired Self-Care Skills Discharge Recommendations Plan/Recommendations: Continue POC Treatment Plan/Plan of Care Patient would benefit from OT for education, treatment and training to promote independence in ADL's, mobility, safety and/or upper extremity function for ADL's. Plan of Care: ADL Retraining, Functional Mobility, Group Exercise/Act as Ind, UE Funct Exercise/Act Treatment Duration: Nov 27, 2020 Frequency: At least 5 of 7 days/Wk (IRF) Estimated Hrs Per Day: 1.5 hours per day Agreement: Yes Rehab Potential: Good Time/GCodes Start Time: 09:05 Stop Time: 09:45 Total Time Billed (hr/min): 40 Billed Treatment Time 1 visit-FA 1 (20 min) EX 1 (20 min) RAIZA BROWNING Nov 15, 2020 10:00
--- NOTE | 2020-11-15 10:26 | PM&R Progress Note ---
Subjective HPI/CC On Admission Date Seen by Provider: Nov 15, 2020 Subjective/Events-last exam 11/14/20: Pain is an issue Increasing Fentanyl to 100 micrograms IV every 4 hrs and [address] will place a Fentanyl Patch of 25 micrograms and initiate Oxycodone 5mg every 3hrs Clear liquid diet due to continued nausea Bowels are moving After rounds later in afternoon Dr Lynch dx with another post op ileus so placed her NPO and changed her med to Dilaudid Objective Exam Vital Signs Vital Signs Date Time Temp Pulse Resp B/P (MAP) Pulse Ox O2 Delivery O2 Flow Rate FiO2 11/15/20 10:44 Nasal Cannula 3.00 11/15/20 09:00 94 11/15/20 05:38 34.0 107 16 129/60 (83) Capillary Refill : General Appearance: No Apparent Distress, WD/WN, Anxious, Chronically ill HEENT: PERRL/EOMI, Normal ENT Inspection, Pharynx Normal Neck: Full Range of Motion, Normal Inspection, Non Tender, Supple, Carotid Bruit Respiratory: Chest Non Tender, Lungs Clear, No Accessory Muscle Use, No Respiratory Distress, Decreased Breath Sounds Cardiovascular: Regular Rate, Rhythm, No Gallop, No JVD, No Murmur, Normal Peripheral Pulses Gastrointestinal: Normal Bowel Sounds, No Organomegaly, No Pulsatile Mass, Abnormal Bowel Sounds, Distended, Tenderness Back: Normal Inspection, No CVA Tenderness, No Vertebral Tenderness Extremity: Normal Capillary Refill, Normal Inspection, Normal Range of Motion, Non Tender, No Calf Tenderness, Pedal Edema Neurologic/Psychiatric: Alert, Oriented x3, No Motor/Sensory Deficits, Normal Mood/Affect, 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 FIM Transfers Therapy Code Descriptions/Definitions Functional [place] Measure: 0=Not Assessed/NA 4=Minimal Assistance 1=Total Assistance 5=Supervision or Setup 2=Maximal Assistance 6=Modified [place] 3=Moderate Assistance 7=Complete IndependenceSCALE: Activities may be completed with or without assistive devices. 6-Redauckeyx-gsaqwyl completes the activity by him/herself with no assistance from a helper. 5-Set-up or Clean-up Assistance-helper sets up or cleans up; patient completes activity. [place] assists only prior to or following the activity. 4-Supervision or Touching Assistance-helper provides verbal cues and/or touching/steadying and/or contact guard assistance as patient completes activity. Assistance may be provided throughout the activity or intermittently. 3-Partial/Moderate Assistance-helper does LESS THAN HALF the effort. [place] lifts, holds or supports trunk or limbs, but provides less than half the effort. 2-Substantial/Maximal Assistance-helper does MORE THAN HALF the effort. [place] lifts or holds trunk or limbs and provides more than half the effort. 0-Fadipyiro-oauohw does ALL the effort. Patient does none of the effort to complete the activity. Or, the assistance of 2 or more helpers is required for the patient to complete the activity. If activity was not attempted, code reason: 7-Patient Refused. 9-Not Applicable-not attempted and the patient did not perform the activity before the current illness, exacerbation or injury. 10-Not Attempted due to Environmental Limitations-(lack of equipment, weather restraints, etc.). 88-Not Attempted due to Medical Conditions or Safety Concerns. Roll Left to Right (QC): 2 Sit to Lying (QC): 1 Sit to Stand (QC): 3 Chair/Tkr-lk-Ewhpu Xfer(QC): 3 (w assist of 2) Car Transfer (QC): 88 Gait Training Does the Patient Walk?: Yes Distance: 5'x3 Walk 10 feet (QC): 88 Walk 50 ft with 2 Turns(QC): 88 Walk 150 ft (QC): 88 Walking 10ft/uneven surface-QC: 88 Gait Persons Needed: 1 Gait Assistive Device: FWW Wheelchair Training Does the Pt Use a Wheelchair?: Yes Wheel 50 ft with 2 turns (QC): 4 Wheel 150 ft (QC): 88 Type of Wheelchair: Manual Stair Training 1 Step (curb) (QC): 88 4 Steps (QC): 88 12 Steps (QC): 88 Balance Picking up an Object (QC): 88 ADL-Treatment Eating (QC): 5 (Set up with soft liquid foods only.) Oral Hygiene (QC): 7 Bathing Location: L Arm, R Arm, L Upper Leg, R Upper Leg, Chest, Abdomen, Perineal Area Shower/Bathe Self (QC): 3 Upper Body Dressing (QC): 7 (Pt. reports that a shirt will be "too binding" on abdomen.) Lower Body Dressing (QC): 7 On/Off Footwear (QC): 2 Toileting Hygiene (QC): 1 (Pt. 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
[2020-11-15 10:52] LABS: BASOPHILS # (AUTO) 0.1 10^3/uL (0.0-0.1); BASOPHILS % (AUTO) 0 % (0-10); EOSINOPHILS % (AUTO) 0 % (0-10); HEMATOCRIT 29 % (35-52); HEMOGLOBIN 9.7 g/dL (11.5-16.0); LYMPHOCYTES # (AUTO) 1.1 10^3/uL (1.0-4.0); LYMPHOCYTES % (AUTO) 3 % (12-44); MEAN CORPUSCULAR HEMOGLOBIN 31 pg (25-34); MEAN CORPUSCULAR HGB CONC 33 g/dL (32-36); MEAN CORPUSCULAR VOLUME 92 fL (80-99); MEAN PLATELET VOLUME 10.2 fL (9.0-12.2); MONOCYTES # (AUTO) 2.3 10^3/uL (0.0-1.0); MONOCYTES % (AUTO) 7 % (0-12); NEUTROPHILS # (AUTO) 27.5 10^3/uL (1.8-7.8); NEUTROPHILS % (AUTO) 85 % (42-75); PLATELET COUNT 571 10^3/uL (130-400)
[2020-11-15 10:54] LABS: WHITE BLOOD COUNT 32.5 10^3/uL (4.3-11.0)
[2020-11-15 11:12] LABS: ALBUMIN 1.9 GM/DL (3.2-4.5); BILIRUBIN,TOTAL 0.8 MG/DL (0.1-1.0); CALCIUM 7.7 MG/DL (8.5-10.1); CREATININE SERUM 2.18 MG/DL (0.60-1.30); POTASSIUM 6.3 MMOL/L (3.6-5.0); TOTAL PROTEIN 4.5 GM/DL (6.4-8.2)
[2020-11-15] MEDS: CIPROFLOXACIN IV 400MG/200ML 200 ML IV SCH (11:14)
--- NOTE | 2020-11-15 11:26 | Discharge Summary ---
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-Dr Lynch COPD O2 dependence HTN Smoker Hyponatremia Anemia s/p 3 units of blood on med-surg floor Ileus 11/14/20 Plan: Monitor pain IRF protocol O2 TPN wean 11/14/20: NPO for ileus Pain control Monitor closely (1) Ileostomy in place (2) Myopathy (3) Ileus following gastrointestinal surgery (4) Presbycusis of both ears (5) LFT elevation (6) DVT prophylaxis (7) Anemia due to acute blood loss (8) Colon cancer (9) Wheeze (10) Hyponatremia (11) COPD (chronic obstructive pulmonary disease) (12) S/P right hemicolectomy Discharge Summary Discharge Physical Examination Allergies: Coded Allergies: Penicillins (Verified Allergy, Unknown, Anaphylaxis, 09/26/20) budesonide (Verified Allergy, Unknown, Nausea, 09/26/20) formoterol (Verified Allergy, Unknown, Nausea, 09/26/20) midazolam (Verified Allergy, Unknown, Anaphylaxis, 09/26/20) Vitals & I&Os Vital Signs Date Time Temp Pulse Resp B/P (MAP) Pulse Ox O2 Delivery O2 Flow Rate FiO2 11/15/20 10:44 Nasal Cannula 3.00 11/15/20 09:00 94 11/15/20 05:38 34.0 107 16 129/60 (83) General Appearance: Alert Respiratory: Clear to Auscultation Hospital Course Was the Problem List Reviewed?: Yes Short course due to emergent surgery required and transferred out of rehab. Patient was able to participate in therapy but had a dramatic decline overnight with MOUSTAPHA and early sepsis requiring IVF and CT scan ordered by Dr Lynch and patient was transferred to OR then ICU. Labs (last 24 hrs) Laboratory Tests 11/13/20 14:05: Glucometer 184H 11/13/20 18:32: Glucometer 170H 11/14/20 00:35: Glucometer 217H 11/14/20 05:21: Glucometer 191H 11/14/20 08:21: Sodium Level 135, Potassium Level 4.5, Chloride Level 100, Carbon Dioxide Level 23, Anion Gap 12, Blood Urea Nitrogen 41H, Creatinine 0.94, Estimat Glomerular Filtration Rate 58, BUN/Creatinine Ratio 44, Glucose Level 205H, Calcium Level 8.1L, Corrected Calcium 9.6, Phosphorus Level 3.9, Magnesium Level 2.5H, Total Bilirubin 0.9, Aspartate Amino Transf (AST/SGOT) 30, Alanine Aminotransferase (ALT/SGPT) 27, Alkaline Phosphatase 151H, Total Protein 5.0L, Albumin 2.1L, Triglycerides Level 230H 11/14/20 11:36: White Blood Count 27.8H, Red Blood Count 2.86L, Hemoglobin 8.8L, Hematocrit 27L, Mean Corpuscular Volume 93, Mean Corpuscular Hemoglobin 31, Mean Corpuscular Hemoglobin Concent 33, Red Cell Distribution Width 15.8H, Platelet Count 477H, Mean Platelet Volume 9.6, Immature Granulocyte % (Auto) 2, Neutrophils (%) ( Auto) 87H, Lymphocytes (%) (Auto) 3L, Monocytes (%) (Auto) 7, Eosinophils (%) (Auto) 0, Basophils (%) (Auto) 0, Neutrophils # (Auto) 24.2H, Lymphocytes # (Auto) 1.0, Monocytes # (Auto) 1.9H, Eosinophils # (Auto) 0.0, Basophils # (Auto) 0.1, Immature Granulocyte # (Auto) 0.6H, Neutrophils % (Manual) 87, Lymphocytes % (Manual) 3, Monocytes % (Manual) 5, Band Neutrophils 4, Reactive Lymphocytes 1, Clumped Platelets OCCASIONAL, Anisocytosis SLIGHT 11/14/20 11:53: Glucometer 210H 11/14/20 18:49: Glucometer 195H 11/14/20 23:35: Glucometer 210H 11/15/20 05:20: Glucometer 213H 11/15/20 10:40: White Blood Count 32.5*H, Red Blood Count 3.17L, Hemoglobin 9.7L, Hematocrit 29L , Mean Corpuscular Volume 92, Mean Corpuscular Hemoglobin 31, Mean Corpuscular Hemoglobin Concent 33, Red Cell Distribution Width 15.8H, Platelet Count 571H, Mean Platelet Volume 10.2, Immature Granulocyte % (Auto) 4, Neutrophils (%) (Auto) 85H, Lymphocytes (%) (Auto) 3L, Monocytes (%) (Auto) 7, Eosinophils (%) (Auto) 0, Basophils (%) (Auto) 0, Neutrophils # (Auto) 27.5H, Lymphocytes # (Auto) 1.1, Monocytes # (Auto) 2.3H, Eosinophils # (Auto) 0.0, Basophils # (Auto) 0.1, Immature Granulocyte # (Auto) 1.4H, Sodium Level 129L, Potassium Level 6.3H, Chloride Level 97L, Carbon Dioxide Level 20L, Anion Gap 12, Blood Urea Nitrogen 66H, Creatinine 2.18H, Estimat Glomerular Filtration Rate 22, BUN/Creatinine Ratio 30, Glucose Level 248H, Calcium Level 7.7L, Corrected Calcium 9.4, Phosphorus Level 7.4H, Magnesium Level 2.5H, Total Bilirubin 0.8, Aspartate Amino Transf (AST/SGOT) 46H, Alanine Aminotransferase (ALT/SGPT) 27, Alkaline Phosphatase 181H, Total Protein 4.5L, Albumin 1.9L 11/15/20 10:44: Procalcitonin 4.76H 11/15/20 11:50: Lactic Acid Level 2.76*H Pending Labs Laboratory Tests 11/13/20 14:05: Glucometer 184 11/13/20 18:32: Glucometer 170 11/14/20 00:35: Glucometer 217 11/14/20 05:21: Glucometer 191 11/14/20 08:21: Sodium Level 135, Potassium Level 4.5, Chloride Level 100, Carbon Dioxide Level 23, Anion Gap 12, Blood Urea Nitrogen 41, Creatinine 0.94, Estimat Glomerular Filtration Rate 58, BUN/Creatinine Ratio 44, Glucose Level 205, Calcium Level 8.1, Corrected Calcium 9.6, Phosphorus Level 3.9, Magnesium Level 2.5, Total Bilirubin 0.9, Aspartate Amino Transf (AST/SGOT) 30, Alanine Aminotransferase (ALT/SGPT) 27, Alkaline Phosphatase 151, Total Protein 5.0, Albumin 2.1, Triglycerides Level 230 11/14/20 11:36: White Blood Count 27.8, Red Blood Count 2.86, Hemoglobin 8.8, Hematocrit 27, Mean Corpuscular Volume 93, Mean Corpuscular Hemoglobin 31, Mean Corpuscular Hemoglobin Concent 33, Red Cell Distribution Width 15.8, Platelet Count 477, Mean Platelet Volume 9.6, Immature Granulocyte % (Auto) 2, Neutrophils (%) (Auto) 87, Lymphocytes (%) (Auto) 3, Monocytes (%) (Auto) 7, Eosinophils (%) (Auto) 0, Basophils (%) (Auto) 0, Neutrophils # (Auto) 24.2, Lymphocytes # (Auto) 1.0, Monocytes # (Auto) 1.9, Eosinophils # (Auto) 0.0, Basophils # (Auto) 0.1, Immature Granulocyte # (Auto) 0.6, Neutrophils % (Manual) 87, Lymphocytes % (Manual) 3, Monocytes % (Manual) 5, Band Neutrophils 4, Reactive Lymphocytes 1, Clumped Platelets OCCASIONAL, Anisocytosis SLIGHT 11/14/20 11:53: Glucometer 210 11/14/20 18:49: Glucometer 195 11/14/20 23:35: Glucometer 210 11/15/20 05:20: Glucometer 213 11/15/20 10:40: White Blood Count 32.5, Red Blood Count 3.17, Hemoglobin 9.7, Hematocrit 29, Mean Corpuscular Volume 92, Mean Corpuscular Hemoglobin 31, Mean Corpuscular Hemoglobin Concent 33, Red Cell Distribution Width 15.8, Platelet Count 571, Mean Platelet Volume 10.2, Immature Granulocyte % (Auto) 4, Neutrophils (%) (Auto) 85, Lymphocytes (%) (Auto) 3, Monocytes (%) (Auto) 7, Eosinophils (%) (Auto) 0, Basophils (%) (Auto) 0, Neutrophils # (Auto) 27.5, Lymphocytes # (Auto) 1.1, Monocytes # (Auto) 2.3, Eosinophils # (Auto) 0.0, Basophils # (Auto) 0.1, Immature Granulocyte # (Auto) 1.4, Sodium Level 129, Potassium Level 6.3, Chloride Level 97, Carbon Dioxide Level 20, Anion Gap 12, Blood Urea Nitrogen 66, Creatinine 2.18, Estimat Glomerular Filtration Rate 22, BUN/Creatinine Ratio 30, Glucose Level 248, Calcium Level 7.7, Corrected Calcium 9.4, Phosphorus Level 7.4, Magnesium Level 2.5, Total Bilirubin 0.8, Aspartate Amino Transf (AST/SGOT) 46, Alanine Aminotransferase (ALT/SGPT) 27, Alkaline Phosphatase 181, Total Protein 4.5, Albumin 1.9 11/15/20 10:44: Procalcitonin 4.76 11/15/20 11:50: Lactic Acid Level 2.76 Discharge Home Medications: Active Scripts Active Reported Trelegy Ellipta 100-62.5-25 (Fluticasone/Umeclidin/Vilanter) 1 Each Blst.w.dev 1 Each IH DAILY Montelukast Sodium 10 Mg Tablet 10 Mg PO HS Cetirizine HCl 10 Mg Tablet 10 Mg PO DAILY Fish Oil 1,000 mg Capsule ([place] 3 Polyunsat Fatty Acids) 1,000 Mg Cap 1,000 Mg PO DAILY Vitamin C (Ascorbic Acid) 500 Mg Capsule 500 Mg PO DAILY Women's 50 Plus Multivit Tab (Mv-Mn/Folic Acid/Calcium/Vit K) 1 Each Tablet 1 Each PO DAILY Aspirin 81 Mg Tab.chew 81 Mg PO DAILY Anoro Ellipta 62.5-25 Mcg INH (Umeclidinium Brm/Vilanterol Tr) 1 Each Blst.w.dev 1 Each IH DAILY Lisinopril 40 Mg Tablet 40 Mg PO DAILY Simvastatin 40 Mg Tablet 40 Mg PO HS Instructions to patient/family Please see electronic discharge instructions given to patient. Diagnosis/Problems Diagnosis/Problems (1) Ileostomy in place (2) Myopathy (3) Ileus following gastrointestinal surgery (4) Presbycusis of both ears (5) LFT elevation (6) DVT prophylaxis (7) Anemia due to acute blood loss (8) Colon cancer (9) Wheeze (10) Hyponatremia (11) COPD (chronic obstructive pulmonary disease) (12) S/P right hemicolectomy WILFREDO MARTÍNEZ DO Nov 15, 2020 11:26
[2020-11-15] MEDS ORDERED: NS IV 1000 ML 1,000 ML IV SCH (11:30)
[2020-11-15] MEDS ORDERED: RT-ALBUTEROL SULF 2.5 MG/3 ML PRE-MIX VIAL INH NR (11:30)
--- NOTE | 2020-11-15 12:00 | NUR ---
DR. XIONG NOTIFIED ABOUT PT. LOWER ABD. INC. AREA LEAKING MODERATE AMT. CLEAR PINKISH DRAINAGE.
--- NOTE | 2020-11-15 12:30 | NUR ---
TALKED WITH SISTER (LYN) ABOUT SURGERY WITH DR. XIONG AND ANSWERED QUESTIONS PER PTS. REQUEST FOR THIS NURSE TO TALK WITH HER.
--- NOTE | 2020-11-15 12:35 | NUR ---
NORMAL SALINE BOLUS STARTED FOR LACTIC ACID 2.[address] DE LEÓN'S.
[2020-11-15 12:37] LABS: MAGNESIUM 2.5 MG/DL (1.6-2.4); PHOSPHORUS 7.4 MG/DL (2.3-4.7)
--- NOTE | 2020-11-15 13:10 | NUR ---
TRANSFERRED TO OR PER BED.
[2020-11-15] MEDS ORDERED: RT-ALBUTEROL/IPRATROPIUM 3 ML (DUONEB) VIAL INH SCH (14:00)
--- NOTE | 2020-11-15 15:22 | Therapy Team Discharge Summary ---
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 Upon evaluation patient performed bed mobility with min assist, supine <-> sit with mod assist, sit <-> stand with min assist, transfers min assist, car transfer not attempted due to abdominal pain, ambulated 3' x2 in the parallel bars with CGA. Patient has been performing bed mobility and transfer training, balance and endurance training, functional strengthening, gait training, and education. 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 Patient has had medical complications and has had to go back to the medical floor. Patient will be discharged from PT at this time. Occupational Therapy Decreased Activ Tolerance, Decreased UE Strength, Impaired Bed Mobility, Impaired Self-Care Skills PT Custodial Goals [employer] Goals PT [employer] Goals Time Frame: Dec 04, 2020 Roll Left to Right (QC): 4 (SBA) Sit to Lying (QC): 4 (SBA) Lying-Sitting on Side/Bed(QC): 4 (SBA) Sit to Stand (QC): 4 (SBA) Chair/Dod-rj-Nspay Xfer(QC): 4 (SBA) Car Transfer (QC): 3 (Darren) Does the Patient Walk: Yes Walk 10 feet (QC): 4 (SBA) Walk 10ft-Uneven Surface(QC): 4 (SBA) Walk 50ft with 2 Turns (QC): 4 (SBA) Walk 150 ft (QC): 88 Wheel 50 feet with 2 turns (QC: 4 1 Step (curb) (QC): 4 (CGA) 4 Steps (QC): 4 (CGA) 12 Steps (QC): 88 Picking up an Object (QC): 88 OT [employer] Goals Custodial Goals Time Frame: Nov 27, 2020 Eating (FIM): 6 Eating (QC): 6 Oral Hygiene (QC): 6 Shower/Bathe Self (QC): 4 Upper Body Dressing (QC): 5 Lower Body Dressing (QC): 4 On/Off Footwear (QC): 4 Toileting(FIM): 6 Toileting Hygiene (QC): 6 Toilet/Commode Transfer (QC): 4 (SBA) Additional Goals: 1-Demonstrate ADL Tasks, 2-Verbalize Understanding, 3- ImproveStrength/[place] 1=Demonstrate adherence to instructed precautions during ADL tasks. 2=Patient will verbalize/demonstrate understanding of assistive devices/modifications for ADL. 3=Patient will improve strength/tolerance for activity to enable patient to perform ADL's. RAMOS POLLOCK PT Nov 15, 2020 15:22
[2020-11-17] MEDS ORDERED: FENTANYL PATCH REMOVAL TP SCH (10:59)
--- NOTE | 2020-11-19 12:25 | Therapy Team Discharge Summary ---
Therapy Discharge Summary Discharge Recommendations Date of Discharge Nov 15, 2020 at 13:10 Therapy D/C Recommendations: 24 hr Supervision Occupational Therapy Pt. was seen in rehab setting to increase overall strength and independence with daily tasks. Pt. did not meet goals due to change in medical status. Pt. transferred to ICU setting and underwent further surgery. OT will evaluate on medical floor for continued skilled care. Decreased Activ Tolerance, Decreased UE Strength, Impaired Bed Mobility, Impaired Funct Balance, Impaired I ADL's, Impaired Self-Care Skills PT Mcfp Goals Mcfp Goals PT Mcfp Goals Time Frame: Dec 04, 2020 Roll Left to Right (QC): 4 (SBA) Sit to Lying (QC): 4 (SBA) Lying-Sitting on Side/Bed(QC): 4 (SBA) Sit to Stand (QC): 4 (SBA) Chair/Hor-gr-Yivyh Xfer(QC): 4 (SBA) Car Transfer (QC): 3 (Darren) Does the Patient Walk: Yes Walk 10 feet (QC): 4 (SBA) Walk 10ft-Uneven Surface(QC): 4 (SBA) Walk 50ft with 2 Turns (QC): 4 (SBA) Walk 150 ft (QC): 88 Wheel 50 feet with 2 turns (QC: 4 1 Step (curb) (QC): 4 (CGA) 4 Steps (QC): 4 (CGA) 12 Steps (QC): 88 Picking up an Object (QC): 88 OT Mcfp Goals Mcfp Goals Time Frame: Nov 27, 2020 Eating (FIM): 6 (not met) Eating (QC): 6 (not met) Oral Hygiene (QC): 6 (not met) Shower/Bathe Self (QC): 4 (not met) Upper Body Dressing (QC): 5 Lower Body Dressing (QC): 4 (not met) On/Off Footwear (QC): 4 (not met) Toileting(FIM): 6 (not met) Toileting Hygiene (QC): 6 (not met) Toilet/Commode Transfer (QC): 4 (not met) Additional Goals: 1-Demonstrate ADL Tasks, 2-Verbalize Understanding, 3- ImproveStrength/Palak 1=Demonstrate adherence to instructed precautions during ADL tasks. 2=Patient will verbalize/demonstrate understanding of assistive devices/modifications for ADL. 3=Patient will improve strength/tolerance for activity to enable patient to perform ADL's. KOKI STOKES OT Nov 19, 2020 12:25
== END 2020-11-15 13:10 | disposition short-term general hospital (02) | DRG 91 ==
LOC: UNDODISIN 10:54
PROVIDERS: ADMIT Internal Medicine; ATTEND Internal Medicine
DX: G72.81 Critical illness myopathy (principal); A41.9 Sepsis, unspecified organism; K91.89 Other postprocedural complications and disorders of digestive system; K56.7 Ileus, unspecified; N17.9 Acute kidney failure, unspecified; E87.1 Hypo-osmolality and hyponatremia; D62 Acute posthemorrhagic anemia; Z48.3 Aftercare following surgery for neoplasm; Z93.2 Ileostomy status; H91.13 Presbycusis, bilateral; F17.210 Nicotine dependence, cigarettes, uncomplicated; J44.9 Chronic obstructive pulmonary disease, unspecified; E78.00 Pure hypercholesterolemia, unspecified; I10 Essential (primary) hypertension; M19.91 Primary osteoarthritis, unspecified site; M54.9 Dorsalgia, unspecified; F41.9 Anxiety disorder, unspecified; F32.9 Major depressive disorder, single episode, unspecified; Z85.038 Personal history of other malignant neoplasm of large intestine; Z99.81 Dependence on supplemental oxygen; Z87.01 Personal history of pneumonia (recurrent); Z97.4 Presence of external hearing-aid; Z88.0 Allergy status to penicillin; Z79.82 Long term (current) use of aspirin
CPT/HCPCS: 36415; 74018; 80053; 82962; 83605; 83735; 84100; 84145; 84478; 85007; 85025; 85027

== ENCOUNTER 2020-11-15 12:25 | Inpatient (IN) | payer MEDICARE ==
[2020-11-15] VITALS (10 sets, daily range): BP systolic 83–125; BP diastolic 49–77
[~2020-11-15] VITALS: Ht 157 cm; Wt 80.8 kg
[~2020-11-15 12:25] MED LIST changes: -BISACODYL 10 MG SUPP (DULCOLAX) PR PRN; -CALCIUM CARBONATE 500 MG (TUMS) TAB.CHEW PO PRN; -DOCUSATE SODIUM 100 MG (COLACE) CAP PO PRN; -FLEET ENEMA ADULT 1 EA BTL PR PRN; -LACTULOSE SYRUP 10GM/15ML (ENULOSE) 30ML UDC PO PRN; -LISI40TA PO; +LISI40TA9 PO; -LOPERAMIDE 2 MG (IMODIUM) TABLET PO PRN; -MELATONIN 3 MG TABLET PO PRN; +MONT10TA32 PO; -MONT10TA97 PO; -ONDANSETRON 4 MG (ZOFRAN) ORAL DISSOLVE TAB PO PRN; -diphenhydrAMINE 25 MG TAB (BENADRYL) PO PRN; -guaiFENesin/CODEINE (ROBITUSSIN AC) 10ML UDC PO PRN
--- NOTE | 2020-11-15 12:44 | Progress Note-Pre Operative ---
Pre-Operative Progress Note H&P Reviewed The H&P was reviewed, patient examined and no changes noted. Date Seen by Provider: Nov 15, 2020 Time Seen by Provider: 12:30 Date H&P Reviewed: Nov 15, 2020 Time H&P Reviewed: 12:30 Pre-Operative Diagnosis: ileostomy ischemia. MICHAEL XIONG MD Nov 15, 2020 12:44
[2020-11-15] MEDS ORDERED: ISOFLURANE (FORANE) 15 ML/15 MIN INHALATION ONE (12:52)
[2020-11-15] MEDS ORDERED: ETOMIDATE IV SOLN 20 MG/10 ML VIAL ONE (12:52)
[2020-11-15] MEDS ORDERED: ROCURONIUM 10 MG/ML 5 ML SYRINGE IV ONE (12:52)
[2020-11-15] MEDS ORDERED: ONDANSETRON 4 MG/2 ML (SDV) Z0FRAN ONE ×2 (12:52→15:11)
[2020-11-15] MEDS ORDERED: fentaNYL INJECTION 100 MCG/2 ML AMP ONE (12:52)
[2020-11-15] MEDS ORDERED: LACTATED RINGERS 1,000 ML IV PRN (13:00)
[2020-11-15] MEDS ORDERED: SEVOFLURANE (ULTANE) 15 ML INHAL SOLN ONE (14:32)
[2020-11-15] MEDS ORDERED: PHENYLEPHRINE 100 MCG/ML 10 ML (ANESTHESIA) SYR ONE (14:32)
--- NOTE | 2020-11-15 15:06 | Progress Note-Post Operative ---
Post-Operative Progess Note Surgeon (s)/Open Hearth Furnace Operator Helper (s) Surgeon MICHAEL XIONG MD Open Hearth Furnace Operator Helper: padmaja woods FNPS Pre-Operative Diagnosis ileostomy ischemia. Post-Operative Diagnosis same, intrabdominal abscess, wound dehiscence Procedure & Operative Findings Date of Procedure 11/15/20 Procedure Performed/Findings reopening recent laparotomy, revision ileostomy, placement wound vac Anesthesia Type get Estimated Blood Loss Estimated blood loss (mL): minimal Specimens/Packing Specimens Removed end ileostomy MICHAEL XIONG MD Nov 15, 2020 15:06
[2020-11-15] MEDS ORDERED: morphine INJ 10 MG/ML 1ML (SYR OR VIAL) ONE (15:11)
[2020-11-15] MEDS ORDERED: TPN IV SCH (15:15)
[2020-11-15] MEDS ORDERED: CATHETER FLUSH 10 ML SYR IV PRN (15:15)
[2020-11-15] MEDS ORDERED: CHLORASEPTIC SPRAY 177 ML LIQUID MC PRN (15:15)
[2020-11-15] MEDS ORDERED: ONDANSETRON 4 MG (ZOFRAN) ORAL DISSOLVE TAB PO PRN (15:15)
[2020-11-15] MEDS ORDERED: ONDANSETRON 4 MG/2 ML (SDV) Z0FRAN IVP PRN ×2 (15:15→15:45)
[2020-11-15] MEDS ORDERED: 1/2 NS IV SOLUTION 1,000 ML IV SCH (15:15)
[2020-11-15] MEDS ORDERED: guaiFENesin/CODEINE (ROBITUSSIN AC) 10ML UDC PO PRN (15:15)
[2020-11-15] MEDS ORDERED: NALOXONE 0.4 MG/ML 1 ML (NARCAN) VIAL IV PRN (15:15)
[2020-11-15] MEDS ORDERED: morphine INJ 10 MG/ML 1ML (SYR OR VIAL) IVP ONE (15:45)
[2020-11-15] MEDS ORDERED: NS IV 1000 ML 1,000 ML IV SCH ×4 (16:00→22:30)
[2020-11-15] MEDS: fentaNYL INJECTION 100 MCG/2 ML AMP IVP PRN ×2 (16:50→21:44)
[2020-11-15] MEDS ORDERED: POTASSIUM CHLORIDE IV SCH ×10 (17:00)
[2020-11-15] MEDS ORDERED: POTASSIUM ACETATE IV SCH ×20 (17:00)
[2020-11-15] MEDS ORDERED: [UNRECOGNIZED DRUG - OTHER] IV SCH ×10 (17:00)
[2020-11-15] MEDS ORDERED: SODIUM CHLORIDE IV SCH ×20 (17:00)
[2020-11-15] MEDS ORDERED: SODIUM ACETATE IV SCH ×10 (17:00)
[2020-11-15] MEDS ORDERED: [UNRECOGNIZED DRUG - OTHER] IV SCH ×10 (17:00)
[2020-11-15] MEDS ORDERED: [UNRECOGNIZED DRUG - OTHER] IV SCH ×10 (17:00)
[2020-11-15 17:11] LABS: BASOPHILS # (AUTO) 0.1 10^3/uL (0.0-0.1); BASOPHILS % (AUTO) 0 % (0-10); EOSINOPHILS # (AUTO) 0.2 10^3/uL (0.0-0.3); EOSINOPHILS % (AUTO) 1 % (0-10); HEMATOCRIT 27 % (35-52); LYMPHOCYTES % (AUTO) 4 % (12-44); MEAN CORPUSCULAR HEMOGLOBIN 31 pg (25-34); MEAN CORPUSCULAR HGB CONC 33 g/dL (32-36); MEAN CORPUSCULAR VOLUME 93 fL (80-99); MEAN PLATELET VOLUME 9.9 fL (9.0-12.2); MONOCYTES # (AUTO) 1.9 10^3/uL (0.0-1.0); MONOCYTES % (AUTO) 7 % (0-12); NEUTROPHILS # (AUTO) 24.4 10^3/uL (1.8-7.8); NEUTROPHILS % (AUTO) 84 % (42-75); PLATELET COUNT 503 10^3/uL (130-400)
[2020-11-15 17:16] LABS: ABG BASE EXCESS -7.6 MMOL/L (-2.5-2.5); ABG OXYGEN SATURATION 95 % (94-100); ABG PCO2 40 MMHG (35-45); ABG PO2 78 MMHG (79-93); ABG TCO2 19.6 MMOL/L (21.0-31.0)
[2020-11-15 17:18] LABS: ABG PH 7.27 (7.37-7.43)
[2020-11-15 17:19] LABS: ALLENS TEST POSITIVE; INSPIRED O2 70%; PATIENT TEMP 35.5; VENTILATOR YES
[2020-11-15 17:19] LABS: ALBUMIN 1.6 GM/DL (3.2-4.5); POTASSIUM 6.4 MMOL/L (3.6-5.0)
[2020-11-15 17:20] LABS: CALCIUM 6.8 MG/DL (8.5-10.1)
[2020-11-15 17:22] LABS: TOTAL PROTEIN 3.8 GM/DL (6.4-8.2)
[2020-11-15 17:25] LABS: CREATININE SERUM 1.98 MG/DL (0.60-1.30)
[2020-11-15] MEDS: metroNIDAZOLE 500MG/100ML IVPB 100 ML IV SCH (17:26)
[2020-11-15] MEDS: METOCLOPRAMIDE INJ 10 MG/2 ML (REGLAN) IVP SCH ×2 (17:26→23:34)
--- NOTE | 2020-11-15 17:27 | Diagnostic Imaging Report ---
INDICATION: Respiratory distress. EXAMINATION: Single AP view of the chest was obtained. COMPARISON: Study of 11/09/2020. FINDINGS: Endotracheal tube is in place with tip at the level of the thoracic inlet. Nasogastric tube passes below the diaphragm. There is air trapping in the upper lobes, bilaterally. There has been increase in mild basilar atelectasis and probable left pleural effusion. IMPRESSION: Increasing basilar atelectasis and left pleural fluid without evidence of complication related to endotracheal tube placement. Dictated by: Dictated on workstation # [id number]
[2020-11-15 17:28] LABS: MAGNESIUM 2.4 MG/DL (1.6-2.4)
[2020-11-15] MEDS ORDERED: SODIUM BICARB 8.4% 50 MEQ/50 ML (ABBOTT) SYR IV NR (17:30)
[2020-11-15] MEDS ORDERED: DEXTROSE 50% 50 ML (IMS) SYR IV NR (17:30)
[2020-11-15] MEDS ORDERED: CALCIUM CHLORIDE 1 GM/10 ML (IMS) SYR IV NR (17:30)
[2020-11-15] MEDS ORDERED: inSUlin (REGULAR) HUMAN 1 UNIT/0.01 ML (CHARGE PER UNIT) IV NR (17:30)
[2020-11-15] MEDS ORDERED: NS IV 500 ML 500 ML ONE (17:38)
[2020-11-15] MEDS ORDERED: NOREPINEPHRINE 4 MG/250 ML 250 ML IV SCH (17:45)
[2020-11-15] MEDS: NOREPINEPHRINE 4 MG/250 ML 250 ML IV SCH ×3 (17:57→19:52)
[2020-11-15] MEDS: PROPOFOL DRIP (ICU) 100 ML IV SCH ×2 (18:03→22:58)
[2020-11-15] MEDS: RT-ALBUTEROL/IPRATROPIUM 3 ML (DUONEB) VIAL INH SCH (18:46)
[2020-11-15] MEDS: NS IV 500 ML 500 ML IV SCH (18:46)
[2020-11-15] MEDS ORDERED: ENOXAPARIN 40 MG/0.4 ML (LOVENOX) SYR SC SCH (21:00)
[2020-11-15 21:56] LABS: BASOPHILS # (AUTO) 0.1 10^3/uL (0.0-0.1); BASOPHILS % (AUTO) 0 % (0-10); EOSINOPHILS % (AUTO) 0 % (0-10); HEMATOCRIT 26 % (35-52); HEMOGLOBIN 8.8 g/dL (11.5-16.0); LYMPHOCYTES # (AUTO) 1.1 10^3/uL (1.0-4.0); LYMPHOCYTES % (AUTO) 4 % (12-44); MEAN CORPUSCULAR HEMOGLOBIN 31 pg (25-34); MEAN CORPUSCULAR HGB CONC 34 g/dL (32-36); MEAN CORPUSCULAR VOLUME 93 fL (80-99); MEAN PLATELET VOLUME 10.1 fL (9.0-12.2); MONOCYTES # (AUTO) 1.6 10^3/uL (0.0-1.0); MONOCYTES % (AUTO) 5 % (0-12); NEUTROPHILS % (AUTO) 87 % (42-75); PLATELET COUNT 541 10^3/uL (130-400)
[2020-11-15 22:02] LABS: WHITE BLOOD COUNT 32.2 10^3/uL (4.3-11.0)
[2020-11-15 22:03] LABS: ALBUMIN 1.6 GM/DL (3.2-4.5)
[2020-11-15 22:04] LABS: POTASSIUM 6.2 MMOL/L (3.6-5.0)
[2020-11-15 22:05] LABS: CALCIUM 7.3 MG/DL (8.5-10.1)
[2020-11-15 22:06] LABS: TOTAL PROTEIN 3.7 GM/DL (6.4-8.2)
[2020-11-15 22:10] LABS: CREATININE SERUM 2.01 MG/DL (0.60-1.30)
[2020-11-15] MEDS ORDERED: SODIUM BICARB 8.4% 50 MEQ/50 ML VIAL IV STA (22:28)
[2020-11-15] MEDS ORDERED: SODIUM BICARB 8.4% 50 MEQ/50 ML VIAL IV ONE (22:30)
[2020-11-15] MEDS ORDERED: CALCIUM GLUCONATE 10% INJ 4.65 MEQ in NS (IVPB) 50 ML IV ONE ×4 (22:30)
[2020-11-15] MEDS ORDERED: inSUlin (REGULAR) HUMAN 1 UNIT/0.01 ML (CHARGE PER UNIT) IV ONE ×2 (22:30)
[2020-11-15] MEDS ORDERED: DEXTROSE 50% 50 ML (IMS) SYR IV ONE ×2 (22:30)
[2020-11-15] MEDS ORDERED: CALCIUM GLUC. 10% 4.65 MEQ/10 ML VIAL IV ONE (22:30)
[2020-11-15] MEDS ORDERED: CALCIUM GLUC. 10% 4.65 MEQ/10 ML VIAL ONE (22:38)
[2020-11-15] MEDS ORDERED: SODIUM BICARB 8.4% 50 MEQ/50 ML VIAL ONE (22:42)
[2020-11-15] MEDS ORDERED: NS (IVPB) 100 ML ONE (22:56)
[2020-11-15] MEDS: NS IV 1000 ML 1,000 ML IV SCH (22:57)
[2020-11-15] MEDS ORDERED: CIPROFLOXACIN IV 400MG/200ML 200 ML IV SCH (23:00)
[2020-11-16] VITALS (7 sets, daily range): BP systolic 92–120; BP diastolic 47–59
[2020-11-16] MEDS: metroNIDAZOLE 500MG/100ML IVPB 100 ML IV SCH ×3 (01:12→17:13)
[2020-11-16] MEDS: fentaNYL INJECTION 100 MCG/2 ML AMP IVP PRN ×3 (01:13→08:49)
--- NOTE | 2020-11-16 01:16 | OPERATIVE REPORT ---
DATE OF SERVICE: ATTENDING PHYSICIAN: Dr. Bryan Kauffman. PRIMARY CARE PHYSICIAN: Dr. Tish Ba. PREOPERATIVE DIAGNOSIS: Leukocytosis ischemic and ileostomy. POSTOPERATIVE DIAGNOSES: Leukocytosis ischemic and ileostomy with wound dehiscence and intraabdominal abscess. PROCEDURE: Reopening of recent laparotomy, revision of end ileostomy, placement of abdominal wound VAC. SURGEON: William Lynch MD. SHIPPING SERVICES SALES REPRESENTATIVE: Mick Alvarez APRN. ANESTHESIA: General endotracheal. ESTIMATED BLOOD LOSS: Minimal. FINDINGS: Leukocytosis ischemic and ileostomy with wound dehiscence and intraabdominal abscess. DISPOSITION: The patient tolerated the procedure well. INDICATIONS: The patient is a 75-year-old female, who was found to have a large hypermetabolic mass involving the transverse colon on a PET scan. She was also found to be hyponatremic and underwent a CT scan and was found to have a right lower lobe nodule as well as a right renal lesion, which were of indeterminate significance. She had reported that she had a colonoscopy before in the past; however, this was greater than 30 years ago. She does have a remote family history of colon cancer with her paternal grandmother having the disease. On 10/02/2020, she underwent a colonoscopy and found to have a near obstructing transverse colonic lesion, which was biopsied and submucosally injected. The pathology came back as adenocarcinoma. On 10/31/2020, she underwent an attempted laparoscopic extended right hemicolectomy; however, this was converted to open. She then underwent an ileocolonic anastomosis. She did well postoperatively with adequate pain control as well as stable vital signs. She, however, did not have any significant bowel function as well as abdominal distention, requiring placement of a nasogastric tube. A small bowel follow through with Gastrografin was performed, which did not show any contrast within the colon within 10 hours and delayed film was canceled due to placement of a nasogastric tube. On 11/10/2020, she underwent reopening of recent laparotomy, resection of the ileocolonic anastomosis as well as ileostomy and mucous fistula placement. She again was stable postoperatively on the floor with stable vital signs and she did have small amount of ileostomy output. She was stable enough and was transferred to acute inpatient rehabilitation. She did develop abdominal distention, requiring another nasogastric tube. On clinical examination, there appeared to be somewhat ischemic end-ileostomy; however, also due to the abdominal distention as well as leukocytosis, this did warrant a reexploration. DESCRIPTION OF PROCEDURE: The patient was brought to the operating room, laid supine on the table. After adequate IV pain and sedative medications and general endotracheal intubation, the abdomen was prepped and draped in standard surgical fashion. Before this, the end ileostomy was sutured using a 1-0 silk suture. Section were also removed. Upon reopening the abdomen, there was a complete wound dehiscence as well as purulence consistent with intraabdominal abscess, which was completely suctioned out and wide drainage with warm saline was performed. The entire small bowel was run with no perforation identified. The end ileostomy did appear slightly ischemic. It was decided to proceed with revision of the ileostomy. The skin incision around the closed ileostomy was made using electrocautery on the cut setting. The bowel was then dissected off using blunt dissection. A relaxing incision of the mesentery was made to prevent any tension and the end of the ileostomy was stapled and transected with a BARB-75 mm stapler with a blue load. The end of the ileostomy was then placed through the open wound and sutured to the skin using 3-0 silk interrupted sutures. Again, the entire small bowel was ran with no perforation identified and the small bowel was decompressed before the ileostomy was revised. The AB-Thera wound VAC was then cut to size and placed into the abdomen and placed to suction. Another 19-Yi [place] drain was placed along the right pericolic gutter and into the pelvis. The patient tolerated the procedure well. We will admit her to the ICU and continue with wound care and antibiotics. We will also keep her n.p.o. and continue with TPN as well as DVT prophylaxis with calf SCDs as well as Lovenox injections. Job ID: [id number] DocumentID: [id number] Dictated Date: 11/15/2020 15:23:05 Repairer Typewriter Date: 11/15/2020 21:23:22 Dictated By: WILLIAM LYNCH MD
[2020-11-16 03:54] LABS: ABG BASE EXCESS -4.4 MMOL/L (-2.5-2.5); ABG OXYGEN SATURATION 98 % (94-100); ABG PCO2 37 MMHG (35-45); ABG PH 7.35 (7.37-7.43); ABG PO2 97 MMHG (79-93); ABG TCO2 21.5 MMOL/L (21.0-31.0); ALLENS TEST YES-POS; INSPIRED O2 70%; PATIENT TEMP 36.4; VENTILATOR YES
[2020-11-16 03:55] LABS: BASOPHILS # (AUTO) 0.1 10^3/uL (0.0-0.1); BASOPHILS % (AUTO) 0 % (0-10); EOSINOPHILS % (AUTO) 0 % (0-10); HEMATOCRIT 24 % (35-52); HEMOGLOBIN 7.9 g/dL (11.5-16.0); LYMPHOCYTES % (AUTO) 3 % (12-44); MEAN CORPUSCULAR HEMOGLOBIN 31 pg (25-34); MEAN CORPUSCULAR HGB CONC 33 g/dL (32-36); MEAN CORPUSCULAR VOLUME 92 fL (80-99); MEAN PLATELET VOLUME 10.4 fL (9.0-12.2); MONOCYTES # (AUTO) 1.8 10^3/uL (0.0-1.0); MONOCYTES % (AUTO) 6 % (0-12); NEUTROPHILS % (AUTO) 85 % (42-75); PLATELET COUNT 587 10^3/uL (130-400)
[2020-11-16 03:57] LABS: WHITE BLOOD COUNT 30.5 10^3/uL (4.3-11.0)
[2020-11-16 04:06] LABS: ALBUMIN 1.4 GM/DL (3.2-4.5)
[2020-11-16 04:07] LABS: POTASSIUM 5.5 MMOL/L (3.6-5.0)
[2020-11-16 04:08] LABS: CALCIUM 7.3 MG/DL (8.5-10.1)
[2020-11-16 04:09] LABS: TOTAL PROTEIN 3.5 GM/DL (6.4-8.2)
[2020-11-16 04:11] LABS: BILIRUBIN,TOTAL 0.9 MG/DL (0.1-1.0)
[2020-11-16 04:13] LABS: CREATININE SERUM 1.93 MG/DL (0.60-1.30)
[2020-11-16 04:16] LABS: MAGNESIUM 2.2 MG/DL (1.6-2.4)
[2020-11-16] MEDS: NOREPINEPHRINE 4 MG/250 ML 250 ML IV SCH ×2 (05:10→12:04)
[2020-11-16] MEDS: METOCLOPRAMIDE INJ 10 MG/2 ML (REGLAN) IVP SCH ×3 (05:50→17:13)
--- NOTE | 2020-11-16 05:50 | History & Physical-Hospitalist ---
History of Present Illness HPI/Chief Complaint CC: VDRF following surgery for abscess and ileostomy ischemia HPI: This is a 75yoWF clinic patient of Dr Ba who presents to the ICU following urgent surgery following failure on IRF due to sepsis and elevated wbc. Patient was assessed to have ileostomy ischemia and abscess. Patient is currently on Cipro, Flagyl, Vanc, Kinga and Diflucan. Patient has a h/o colon cancer s/p resection 2 weeks ago and I was consulted for AECOPD due to long smoking hx and severe anemia s/p transfusion and resolution of hyponatremia. She had a complication of torsion requiring diverting ileostomy and she became strong enough to go to IRF but only lasted 2 days before she decompensated. Currently she remains intubated and critically ill. Source: RN/, old records Exam Limitations: clinical condition (intubated) Date Seen 11/16/20 Time Seen by a Provider: 11:00 Attending Physician William Lynch MD PCP Tish Ba MD Referring Physician Date of Admission Nov 15, 2020 at 12:25 Home Medications & Allergies Home Medications Reviewed patient Home Medication Reconciliation performed by pharmacy medication reconciliations geologic technician and/or nursing. Patients Allergies have been reviewed. Allergies Allergies Coded Allergies Penicillins (Verified Allergy, Unknown, Anaphylaxis, 09/26/20) budesonide (Verified Allergy, Unknown, Nausea, 09/26/20) formoterol (Verified Allergy, Unknown, Nausea, 09/26/20) midazolam (Verified Allergy, Unknown, Anaphylaxis, 09/26/20) Past Yipznkc-Xgazeg-[place] Hx Past Med/Social Hx: Reviewed Nursing Past Med/Soc Hx, Reviewed and Corrections made Patient Social History Marrital Status: single Employed/Student: retired Alcohol Use: Denies Use Smoking Status: Current Everyday Smoker Type Used: Cigarettes 2nd Hand Smoke Exposure: No Recent Hopitalizations: No Immunizations Up To Date Date of Pneumonia Vaccine: Jul 25, 2020 Date of Influenza Vaccine: Jul 25, 2020 Seasonal Allergies Seasonal Allergies: Yes Past Medical History Surgeries: Abdominal, Tonsillectomy Respiratory: COPD, Pneumonia Currently Using CPAP: No Currently Using BIPAP: No Cardiac: High Cholesterol, Hypertension Gastrointestinal: Chronic Constipation Musculoskeletal: Arthritis, Chronic Back Pain Hearing Impairment: Hard of Hearing, Bilateral Hearing Aide Cancer: Colon What Type of Treatment Did You: Surgical Intervention History of Blood Disorders: No Review of Systems Constitutional: see HPI Physical Exam Physical Exam Vital Signs Vital Signs - First Documented 11/15/20 11/15/20 11/15/20 15:34 15:35 16:20 Temp 36.2 Pulse 104 Resp 18 B/P (MAP) 125/77 (93) Pulse Ox 98 O2 Delivery Mechanical Ventilator O2 Flow Rate 70.00 FiO2 70 Capillary Refill : Height, Weight, BMI Height: '" Weight: lbs. oz. kg; 34.48 BMI Method: General Appearance: No Apparent Distress, Chronically ill, Other (intubated) Respiratory: Lungs Clear Cardiovascular: Regular Rate, Rhythm Results Results/Procedures Labs Laboratory Tests 11/15/20 17:00 11/15/20 21:50 11/16/20 03:30 Patient resulted labs reviewed. Assessment/Plan Admission Diagnosis Assessment: VDRF Critical illness Sepsis Abdominal abscess Severe debility and myopathy s/p hemicolectomy due to colon cancer then ileostomy due to torsion-Dr Lynch COPD O2 dependence at home HTN Smoker Hyponatremia Anemia s/p 3 units of blood on med-surg floor Ileus 11/14/20 Plan: IV abx Vent EICU Prognosis guarded Pre: intrabdominal abscess, wound dehiscence Post: reopening recent laparotomy, revision ileostomy, placement wound vac Admission Status: Inpatient Order (span 2 midnights) Reason for Inpatient Admission: VDRF Diagnosis/Problems Diagnosis/Problems (1) Ileus following gastrointestinal surgery (2) Presbycusis of both ears (3) Ileostomy in place (4) Anemia due to acute blood loss (5) Colon cancer (6) Myopathy (7) Hyponatremia (8) COPD (chronic obstructive pulmonary disease) (9) S/P right hemicolectomy Clinical Quality Measures DVT/VTE Risk/Contraindication: Risk Factor Score Per Nursin WILFREDO MARTÍNEZ DO Nov 16, 2020 05:50
[2020-11-16] MEDS: inSUlin ASPART (NovoLOG) 1 UNIT/0.01 ML (CHARGE PER UNIT) SQ SCH ×2 (05:51→12:09)
[2020-11-16] MEDS: PROPOFOL DRIP (ICU) 100 ML IV SCH ×3 (05:51→17:14)
[2020-11-16] MEDS: RT-ALBUTEROL/IPRATROPIUM 3 ML (DUONEB) VIAL INH SCH ×3 (06:53→19:02)
[2020-11-16] MEDS: NS IV 1000 ML 1,000 ML IV SCH ×2 (08:23→16:57)
[2020-11-16] MEDS: NICOTINE PATCH REMOVAL TP SCH (08:23)
[2020-11-16] MEDS: PANTOPRAZOLE 40 MG (PROTONIX) VIAL IV SCH (08:24)
[2020-11-16] MEDS: FLUCONAZOLE 200 MG/100 ML 50 ML, EMPTY IV BAG (PVC) 1 EA IV SCH ×2 (08:24)
[2020-11-16] MEDS: meTOproloL SUCCINATE 50 MG (TOPROL XL) TAB PO SCH ×2 (08:24→09:00)
--- NOTE | 2020-11-16 08:25 | Diagnostic Imaging Report ---
INDICATION: Intubated. EXAMINATION: Chest 11/16/2020 COMPARISON: 11/15/2020 FINDINGS: There is an ET tube unremarkable in appearance with a feeding tube coursing beneath the diaphragm. There is left-sided PICC line with the tip in the brachiocephalic vein. Advancement is advised as clinically indicated. Tip is stable from previous. There are findings of edema throughout both lungs which have worsened. No focal consolidations. Small left effusion noted. No pneumothorax. IMPRESSION: 1. Tubes and lines as above. Left PICC line, tip likely short of the SVC. 2. Pulmonary edema with left small effusion. Dictated by: Dictated on workstation # [id number]
[2020-11-16] MEDS: NICOTINE 14 MG (NICODERM) PATCH TD SCH (08:29)
[2020-11-16] MEDS ORDERED: PANTOPRAZOLE 40 MG (PROTONIX) VIAL IV SCH (09:00)
[2020-11-16] MEDS: NS IV 500 ML 500 ML IV SCH (09:34)
[2020-11-16] MEDS ORDERED: VANCOMYCIN INJECTION 1,000 MG in NS (IVPB) 250 ML IV SCH (10:30)
[2020-11-16] MEDS ORDERED: VANCOMYCIN 1500 MG/NS 500 ML IVPB IV NR ×2 (11:00)
--- NOTE | 2020-11-16 11:14 | Physical Therapy Progress Note ---
Therapy Progress Note Patient is sedated and intubated. PT will continue to monitor patient status. ALEN CONTRERAS DPT Nov 16, 2020 11:14
[2020-11-16] MEDS ORDERED: fentaNYL DRIP PRE-MIX 250 ML IV ONE (11:19)
--- NOTE | 2020-11-16 11:40 | Progress Note ---
Subjective Date Seen by a Provider: Nov 16, 2020 Time Seen by a Provider: 11:00 Subjective/Events-last exam doing ok. wound vac drainage serous. on vent at 55% FiO2. pain controlled. Objective Exam Vital Signs Date Time Temp Pulse Resp B/P (MAP) Pulse Ox O2 Delivery O2 Flow Rate FiO2 11/16/20 11:16 95 55.00 11/16/20 10:26 107 20 95 70 11/16/20 10:00 107 21 95 Mechanical Ventilator 60.00 Automatic Cuff 11/16/20 09:00 112 18 93/58 (70) 93 Mechanical Ventilator 60.00 11/16/20 07:56 95 Mechanical Ventilator 60 11/16/20 07:55 97 60.00 11/16/20 07:43 37.0 11/16/20 07:00 111 11/16/20 06:54 109 22 96 70 11/16/20 06:00 116 14 110/71 (84) 94 Mechanical Ventilator 70.00 11/16/20 06:00 36.7 Mechanical Ventilator 70.00 11/16/20 05:51 114 11/16/20 05:11 104 26 96 11/16/20 05:10 79/47 11/16/20 05:00 108 15 125/61 (82) 94 Mechanical Ventilator 70.00 11/16/20 04:51 36.4 Mechanical Ventilator 70.00 11/16/20 04:00 102 15 103/63 (76) 94 Mechanical Ventilator 70.00 11/16/20 04:00 95 Mechanical Ventilator 70 11/16/20 03:00 106 14 121/62 (81) 94 Mechanical Ventilator 70.00 11/16/20 02:18 102 21 95 70 11/16/20 02:00 102 16 92/59 (70) 94 Mechanical Ventilator 70.00 11/16/20 01:00 103 11/16/20 01:00 102 16 104/59 (74) 97 Mechanical Ventilator 70.00 11/16/20 00:59 36.3 Mechanical Ventilator 70.00 11/16/20 00:21 95 Mechanical Ventilator 70 11/16/20 00:00 92 20 120/60 (80) 96 Mechanical Ventilator 70.00 11/15/20 23:28 Mechanical Ventilator 70.00 11/15/20 23:00 87 20 113/53 (73) 97 Mechanical Ventilator 70.00 11/15/20 22:58 86 11/15/20 22:46 96 20 96 70 11/15/20 22:00 93 20 82/51 (61) 96 Mechanical Ventilator 70.00 11/15/20 21:00 89 17 93/62 (72) 95 Mechanical Ventilator 70.00 11/15/20 20:00 95 Mechanical Ventilator 70 11/15/20 20:00 Mechanical Ventilator 70.00 11/15/20 20:00 83 18 105/63 (77) 95 Mechanical Ventilator 70.00 11/15/20 19:52 73/54 11/15/20 19:37 35.5 11/15/20 19:00 81 11/15/20 19:00 81 18 98/63 (75) 97 Mechanical Ventilator 70.00 11/15/20 18:48 80 21 100 70 11/15/20 18:03 89 108/65 11/15/20 18:00 85 12 139/65 (89) 100 Mechanical Ventilator 100.00 11/15/20 17:13 100 11/15/20 17:00 89 10 108/65 (79) 94 Mechanical Ventilator 70.00 11/15/20 16:48 35.5 11/15/20 16:40 92 11/15/20 16:31 36.2 90 93 70 11/15/20 16:30 92 25 102/57 (77) 92 Mechanical Ventilator 70.00 11/15/20 16:21 90 24 93 70 11/15/20 16:20 91 Mechanical Ventilator 70 11/15/20 16:15 Mechanical Ventilator 11/15/20 16:15 95 26 92 11/15/20 16:15 36.4 20 118/62 (80) 96 Mechanical Ventilator 11/15/20 16:10 20 114/60 (78) 95 Mechanical Ventilator 11/15/20 16:05 Mechanical Ventilator 11/15/20 16:00 24 102/59 (73) 94 Mechanical Ventilator 11/15/20 16:00 99 25 102/59 (76) 93 Mechanical Ventilator 70.00 11/15/20 15:50 18 125/61 (82) 92 Mechanical Ventilator 11/15/20 15:50 Mechanical Ventilator 11/15/20 15:45 103 23 92 11/15/20 15:40 18 115/60 (78) 96 Mechanical Ventilator 11/15/20 15:35 104 21 125/77 (88) 92 Mechanical Ventilator 70.00 11/15/20 15:34 36.2 18 125/77 (93) 98 Mechanical Ventilator 11/15/20 15:34 Mechanical Ventilator I & O 11/16/20 07:00 Intake Total 2350 ml Output Total 1790 ml Balance 560 ml Capillary Refill : General Appearance: No Apparent Distress HEENT: Normal ENT Inspection Neck: Full Range of Motion Respiratory: Decreased Breath Sounds, Rhonci Cardiovascular: Regular Rate, Rhythm Gastrointestinal: other (open abd with wound vac in place, no purulent drainage) Extremity: Normal Capillary Refill Neurologic/Psychiatric: Alert Skin: Normal Color Lymphatic: No Adenopathy Results Lab Laboratory Tests 11/15/20 17:00: White Blood Count 29.0H, Red Blood Count 2.90L, Hemoglobin 9.0L, Hematocrit 27L, Mean Corpuscular Volume 93, Mean Corpuscular Hemoglobin 31, Mean Corpuscular Hemoglobin Concent 33, Red Cell Distribution Width 15.8H, Platelet Count 503H, Mean Platelet Volume 9.9, Immature Granulocyte % (Auto) 5, Neutrophils (%) (Auto) 84H, Lymphocytes (%) (Auto) 4L, Monocytes (%) (Auto) 7, Eosinophils (%) (Auto) 1, Basophils (%) (Auto) 0, Neutrophils # (Auto) 24.4H, Lymphocytes # (Auto) 1.0, Monocytes # (Auto) 1.9H, Eosinophils # (Auto) 0.2, Basophils # (Auto) 0.1, Immature Granulocyte # (Auto) 1.3H, Sodium Level 135, Potassium Level 6.4H, Chloride Level 104, Carbon Dioxide Level 19L, Anion Gap 12, Blood Urea Nitrogen 61H, Creatinine 1.98H, Estimat Glomerular Filtration Rate 25, BUN/Creatinine Ratio 31, Glucose Level 146H, Calcium Level 6.8L, Corrected Calcium 8.7, Magnesium Level 2.4, Total Bilirubin 1.0, Aspartate Amino Transf (AST/SGOT) 67H, Alanine Aminotransferase (ALT/SGPT) 29, Alkaline Phosphatase 166H, Total Protein 3.8L, Albumin 1.6L 11/15/20 17:10: Blood Gas Puncture Site UNK, Blood Gas Patient Temperature 35.5, Arterial Blood pH 7.27*L, Arterial Blood Partial Pressure CO2 40, Arterial Blood Partial Pressure O2 78L, Arterial Blood HCO3 18L, Arterial Blood Total CO2 19.6L, Arterial Blood Oxygen Saturation 95, Arterial Blood Base Excess -7.6L, Adi Test POSITIVE, Blood Gas Ventilator Setting YES, Blood Gas Inspired Oxygen 70% 11/15/20 17:36: Glucometer 144H 11/15/20 21:50: White Blood Count 32.2*H, Red Blood Count 2.82L, Hemoglobin 8.8L, Hematocrit 26L , Mean Corpuscular Volume 93, Mean Corpuscular Hemoglobin 31, Mean Corpuscular Hemoglobin Concent 34, Red Cell Distribution Width 15.9H, Platelet Count 541H, Mean Platelet Volume 10.1, Immature Granulocyte % (Auto) 4, Neutrophils (%) (Auto) 87H, Lymphocytes (%) (Auto) 4L, Monocytes (%) (Auto) 5, Eosinophils (%) (Auto) 0, Basophils (%) (Auto) 0, Neutrophils # (Auto) 28.0H, Lymphocytes # (Auto) 1.1, Monocytes # (Auto) 1.6H, Eosinophils # (Auto) 0.0, Basophils # (Auto) 0.1, Immature Granulocyte # (Auto) 1.3H, Sodium Level 131L, Potassium Level 6.2H, Chloride Level 103, Carbon Dioxide Level 16L, Anion Gap 12, Blood Urea Nitrogen 63H, Creatinine 2.01H, Estimat Glomerular Filtration Rate 24, BUN/Creatinine Ratio 31, Glucose Level 230H, Calcium Level 7.3L, Corrected Calcium 9.2, Total Bilirubin 1.0, Aspartate Amino Transf (AST/SGOT) 67H, Alanine Aminotransferase (ALT/SGPT) 29, Alkaline Phosphatase 152H, Total Protein 3.7L, Albumin 1.6L 11/16/20 00:51: Glucometer 253H 11/16/20 03:30: White Blood Count 30.5*H, Red Blood Count 2.57L, Hemoglobin 7.9L, Hematocrit 24L , Mean Corpuscular Volume 92, Mean Corpuscular Hemoglobin 31, Mean Corpuscular Hemoglobin Concent 33, Red Cell Distribution Width 16.1H, Platelet Count 587H, Mean Platelet Volume 10.4, Immature Granulocyte % (Auto) 5, Neutrophils (%) (Auto) 85H, Lymphocytes (%) (Auto) 3L, Monocytes (%) (Auto) 6, Eosinophils (%) (Auto) 0, Basophils (%) (Auto) 0, Neutrophils # (Auto) 26.0H, Lymphocytes # (Auto) 1.0, Monocytes # (Auto) 1.8H, Eosinophils # (Auto) 0.0, Basophils # (Auto) 0.1, Immature Granulocyte # (Auto) 1.6H, Blood Gas Puncture Site RIGHT RADIAL, Blood Gas Patient Temperature 36.4, Arterial Blood pH 7.35L, Arterial Blood Partial Pressure CO2 37, Arterial Blood Partial Pressure O2 97H, Arterial Blood HCO3 20L, Arterial Blood Total CO2 21.5, Arterial Blood Oxygen Saturation 98, Arterial Blood Base Excess -4.4L, Adi Test YES-POS, Blood Gas Ventilator Setting YES, Blood Gas Inspired Oxygen 70%, Sodium Level 133L, Potassium Level 5.5H, Chloride Level 104, Carbon Dioxide Level 19L, Anion Gap 10, Blood Urea Nitrogen 63H, Creatinine 1.93H, Estimat Glomerular Filtration Rate 25, BUN/Creatinine Ratio 33, Glucose Level 254H, Calcium Level 7.3L, Corrected Calcium 9.4, Phosphorus Level 6.1H, Magnesium Level 2.2, Total Bilirubin 0.9, Aspartate Amino Transf (AST/SGOT) 55H, Alanine Aminotransferase (ALT/SGPT) 27, Alkaline Phosphatase 148H, Total Protein 3.5L, Albumin 1.4L 11/16/20 11:07: Glucometer 211H Microbiology 11/15/20 Gram Stain - Final, Resulted 11/15/20 Anaerobic Culture, Resulted Pending 11/15/20 Surgical Culture - Preliminary, Resulted YEAST 11/15/20 Fungal Culture 1, Resulted Pending Assessment/Plan Assessment/Plan Assess & Plan/Chief Complaint s/p extended right hemicolectomy, end ileostomy, mucous fistula, revision ileostomy, drainage intraabd abscess and VAC placement. ween vent. will change vac 5 days. start a carbapenem. cont TPN and NGT Clinical Quality Measures DVT/VTE Risk/Contraindication: Risk Factor Score Per Nursin MICHAEL XIONG MD Nov 16, 2020 11:40
[2020-11-16] MEDS: fentaNYL DRIP PRE-MIX 250 ML IV SCH (12:03)
[2020-11-16] MEDS: MEROPENEM 500 MG in WATER (STERILE) FOR INJECTION 10 ML IV SCH ×2 (12:04→23:13)
--- NOTE | 2020-11-16 15:04 | Anesthesia-General Post-Op ---
General Patient Condition Mental Status/LOC: Same as Preop Cardiovascular: Satisfactory Nausea/Vomiting: Absent Respiratory: Satisfactory (requiring post op ventilatory support via ETT. ) Pain: Controlled Complications: Absent Post Op Complications Complications None Follow Up Care/Instructions Patient Instructions None needed. Anesthesia/Patient Condition Patient Condition Patient is doing well,no apparent adverse anesthesia problems. No complications reported per nursing. REMIGIO LEVINE CRNA Nov 16, 2020 15:04
--- NOTE | 2020-11-16 15:09 | Anesthesia-Procedure Note ---
Procedures/Interventions Procedure Start/Stop/Diagnosis Date of Procedure: Nov 16, 2020 Start Time: 09:30 Stop Time: 09:45 Arterial Line Arterial Line Catheter: 22G Type: Radial Location: Right Procedure: prepped, draped in sterile fashion, good wave-form was obtained, patient tolerated procedure well, no immediate complications, post procedure area cleaned REMIGIO LEVINE CRNA Nov 16, 2020 15:09
[2020-11-16] MEDS ORDERED: [UNRECOGNIZED DRUG - OTHER] IV SCH ×9 (17:00)
[2020-11-16] MEDS ORDERED: SODIUM ACETATE IV SCH ×9 (17:00)
[2020-11-16] MEDS ORDERED: SODIUM CHLORIDE IV SCH ×9 (17:00)
[2020-11-16] MEDS ORDERED: MICONAZOLE 2% POWDER (DESENEX AF) 90 GM TOP PRN (18:15)
[2020-11-16] MEDS ORDERED: ARTIFICIAL TEARS OINT (LACRI-LUBE) 3.5 GM TUBE OU PRN (18:15)
[2020-11-16] MEDS: ENOXAPARIN 30 MG/0.3 ML (LOVENOX) SYR SC SCH (20:38)
[2020-11-16] MEDS: CIPROFLOXACIN IV 400MG/200ML 200 ML IV SCH (23:13)
[2020-11-17] VITALS (8 sets, daily range): BP systolic 95–144; BP diastolic 38–57
[2020-11-17] MEDS: inSUlin ASPART (NovoLOG) 1 UNIT/0.01 ML (CHARGE PER UNIT) SQ SCH ×4 (00:11→17:12)
[2020-11-17] MEDS: NOREPINEPHRINE 4 MG/250 ML 250 ML IV SCH ×4 (00:11→22:14)
[2020-11-17] MEDS: METOCLOPRAMIDE INJ 10 MG/2 ML (REGLAN) IVP SCH ×5 (00:37→23:05)
[2020-11-17] MEDS: metroNIDAZOLE 500MG/100ML IVPB 100 ML IV SCH ×3 (02:20→17:12)
[2020-11-17] MEDS: NS IV 500 ML 500 ML IV SCH ×2 (02:40→17:12)
[2020-11-17 05:02] LABS: BASOPHILS # (AUTO) 0.1 10^3/uL (0.0-0.1); BASOPHILS % (AUTO) 0 % (0-10); EOSINOPHILS % (AUTO) 0 % (0-10); HEMATOCRIT 21 % (35-52); LYMPHOCYTES # (AUTO) 0.8 10^3/uL (1.0-4.0); LYMPHOCYTES % (AUTO) 5 % (12-44); MEAN CORPUSCULAR HEMOGLOBIN 32 pg (25-34); MEAN CORPUSCULAR HGB CONC 32 g/dL (32-36); MEAN CORPUSCULAR VOLUME 100 fL (80-99); MEAN PLATELET VOLUME 10.2 fL (9.0-12.2); MONOCYTES # (AUTO) 1.1 10^3/uL (0.0-1.0); MONOCYTES % (AUTO) 7 % (0-12); NEUTROPHILS # (AUTO) 14.1 10^3/uL (1.8-7.8); NEUTROPHILS % (AUTO) 84 % (42-75); PLATELET COUNT 336 10^3/uL (130-400); WHITE BLOOD COUNT 16.9 10^3/uL (4.3-11.0)
[2020-11-17 05:03] LABS: ABG BASE EXCESS -4.1 MMOL/L (-2.5-2.5); ABG OXYGEN SATURATION 100 % (94-100); ABG PCO2 40 MMHG (35-45); ABG PO2 122 MMHG (79-93); ABG TCO2 22.2 MMOL/L (21.0-31.0)
[2020-11-17 05:05] LABS: HEMOGLOBIN 6.6 g/dL (11.5-16.0)
[2020-11-17 05:06] LABS: ABG PH 7.33 (7.37-7.43)
[2020-11-17 05:07] LABS: ALLENS TEST YES-POS; INSPIRED O2 36%; PATIENT TEMP 36.4; VENTILATOR YES
[2020-11-17 05:12] LABS: POTASSIUM 4.5 MMOL/L (3.6-5.0)
[2020-11-17 05:13] LABS: CALCIUM 7.2 MG/DL (8.5-10.1)
[2020-11-17] MEDS: fentaNYL DRIP PRE-MIX 250 ML IV SCH ×2 (05:14→20:38)
[2020-11-17 05:18] LABS: CREATININE SERUM 1.79 MG/DL (0.60-1.30)
[2020-11-17 05:20] LABS: MAGNESIUM 2.4 MG/DL (1.6-2.4)
[2020-11-17] MEDS: NS IV 1000 ML 1,000 ML IV SCH ×2 (05:28→14:51)
[2020-11-17] MEDS ORDERED: NS IV 500 ML 500 ML IV SCH (05:45)
[2020-11-17] MEDS: RT-ALBUTEROL/IPRATROPIUM 3 ML (DUONEB) VIAL INH SCH ×3 (06:38→18:55)
[2020-11-17] MEDS: NICOTINE PATCH REMOVAL TP SCH (08:04)
[2020-11-17] MEDS: NICOTINE 14 MG (NICODERM) PATCH TD SCH (08:05)
--- NOTE | 2020-11-17 08:06 | Diagnostic Imaging Report ---
EXAMINATION: Chest radiograph, portable AP view. DATE: 11/17/2020 3:45 AM INDICATION: 75-year-old female, intubation. COMPARISON: November 16, 2020. FINDINGS: The endotracheal tube is approximately 6.9 cm above the rupal. The nasogastric tube extends below the included field of view. Heart size and mediastinal contours are unchanged. The left-sided PICC line appears unchanged in position given differences in patient positioning. There is no identified pneumothorax. There is blunting of the left lateral costophrenic angle. IMPRESSION: 1. Blunting the left lateral costophrenic angle which is unchanged and may relate to effusion, infiltrate, and/or atelectasis. 2. Support lines and tubes as above. Dictated by: Dictated on workstation # [id number]
[2020-11-17] MEDS: FLUCONAZOLE 200 MG/100 ML 50 ML, EMPTY IV BAG (PVC) 1 EA IV SCH ×2 (08:11)
[2020-11-17] MEDS: meTOproloL SUCCINATE 50 MG (TOPROL XL) TAB PO SCH (08:17)
[2020-11-17] MEDS: PROPOFOL DRIP (ICU) 100 ML IV SCH ×3 (08:17→20:38)
[2020-11-17] MEDS: PANTOPRAZOLE 40 MG (PROTONIX) VIAL IV SCH (08:17)
[2020-11-17] MEDS ORDERED: NS (IVPB) 250 ML ONE (08:26)
[2020-11-17] MEDS: MEROPENEM 500 MG in WATER (STERILE) FOR INJECTION 10 ML IV SCH ×2 (10:14→23:05)
--- NOTE | 2020-11-17 10:42 | Progress Note ---
Subjective Date Seen by a Provider: Nov 17, 2020 Time Seen by a Provider: 10:00 Subjective/Events-last exam on vent/sedated. tolerating weening parameters. on FiO2 35%. anemic. no signs clinical bleed. WBC trending down. Objective Exam Vital Signs Date Time Temp Pulse Resp B/P (MAP) Pulse Ox O2 Delivery O2 Flow Rate FiO2 11/17/20 10:23 86 20 95 36 11/17/20 10:00 83 20 95 Mechanical Ventilator 36.00 11/17/20 09:21 36.2 81 20 96/40 94 Mechanical Ventilator 36 11/17/20 09:00 84 20 94 Mechanical Ventilator 36.00 11/17/20 08:48 36.2 84 20 98/38 94 Mechanical Ventilator 36 11/17/20 08:17 86 144/57 11/17/20 08:00 86 20 93 Mechanical Ventilator 36.00 11/17/20 07:50 93 Mechanical Ventilator 36 11/17/20 07:48 35.8 11/17/20 07:00 88 20 91 Mechanical Ventilator 36.00 11/17/20 07:00 86 11/17/20 06:38 98 21 92 36 11/17/20 06:00 97 16 125/79 (94) 91 Mechanical Ventilator 36.00 11/17/20 05:00 88 20 96/54 (68) 93 Mechanical Ventilator 36.00 11/17/20 04:00 97 20 94/53 (67) 91 Mechanical Ventilator 36.00 11/17/20 04:00 36.4 11/17/20 03:00 106 17 93 Mechanical Ventilator 36.00 11/17/20 02:50 Mechanical Ventilator 36.00 11/17/20 02:49 106 20 95 40 11/17/20 02:00 115 20 93 Mechanical Ventilator 40.00 11/17/20 01:00 95 11/17/20 01:00 95 20 92 Mechanical Ventilator 40.00 11/17/20 00:15 36.2 11/17/20 00:00 93 20 94 Mechanical Ventilator 40.00 11/16/20 23:00 91 20 96 Mechanical Ventilator 40.00 11/16/20 22:53 94 20 92 40 11/16/20 22:00 97 18 92 Mechanical Ventilator 40.00 11/16/20 21:00 110 15 93 Mechanical Ventilator 40.00 11/16/20 21:00 92 Mechanical Ventilator 40 11/16/20 20:21 36.2 11/16/20 20:00 103 20 92 Mechanical Ventilator 40.00 11/16/20 19:02 92 21 97 55 11/16/20 19:00 92 20 98 Mechanical Ventilator 45.00 11/16/20 19:00 93 11/16/20 18:00 95 20 93 Mechanical Ventilator 45.00 11/16/20 17:20 96 Mechanical Ventilator 45.00 11/16/20 17:14 105 135/57 11/16/20 17:00 99 12 96 Mechanical Ventilator 60.00 11/16/20 16:00 91 16 96 Mechanical Ventilator 60.00 11/16/20 15:00 95 19 96 Mechanical Ventilator 60.00 11/16/20 14:26 98 21 95 55 11/16/20 14:00 105 10 95 Mechanical Ventilator 60.00 11/16/20 13:00 112 13 94 Mechanical Ventilator 60.00 11/16/20 12:55 104 11/16/20 12:04 107 114/52 11/16/20 12:03 107 114/52 11/16/20 12:01 36.8 11/16/20 12:00 104 11 94 Mechanical Ventilator 60.00 11/16/20 11:16 95 55.00 I & O 11/17/20 07:00 Intake Total 2306.62 ml Output Total 2555 ml Balance -248.38 ml Capillary Refill : General Appearance: No Apparent Distress HEENT: Normal ENT Inspection Neck: Full Range of Motion Respiratory: Rhonci, Wheezing Cardiovascular: Regular Rate, Rhythm Gastrointestinal: other (vac in place with serous drainage.) Neurologic/Psychiatric: Alert Skin: Normal Color Lymphatic: No Adenopathy Results Lab Laboratory Tests 11/16/20 11:07: Glucometer 211H 11/16/20 17:29: Glucometer 177H 11/16/20 23:17: Glucometer 151H 11/17/20 04:50: White Blood Count 16.9H, Red Blood Count 2.08L, Hemoglobin 6.6*L, Hematocrit 21L , Mean Corpuscular Volume 100H, Mean Corpuscular Hemoglobin 32, Mean Corpuscular Hemoglobin Concent 32, Red Cell Distribution Width 16.8H, Platelet Count 336, Mean Platelet Volume 10.2, Immature Granulocyte % (Auto) 5, Neutrophils (%) ( Auto) 84H, Lymphocytes (%) (Auto) 5L, Monocytes (%) (Auto) 7, Eosinophils (%) (Auto) 0, Basophils (%) (Auto) 0, Neutrophils # (Auto) 14.1H, Lymphocytes # (Auto) 0.8L, Monocytes # (Auto) 1.1H, Eosinophils # (Auto) 0.0, Basophils # (Auto) 0.1, Immature Granulocyte # (Auto) 0.8H, Blood Gas Puncture Site RIGHT RADIAL, Blood Gas Patient Temperature 36.4, Arterial Blood pH 7.33*L, Arterial Blood Partial Pressure CO2 40, Arterial Blood Partial Pressure O2 122H, Arterial Blood HCO3 21L, Arterial Blood Total CO2 22.2, Arterial Blood Oxygen Saturation 100, Arterial Blood Base Excess -4.1L, Adi Test YES-POS, Blood Gas Ventilator Setting YES, Blood Gas Inspired Oxygen 36%, Sodium Level 136, Potassium Level 4.5, Chloride Level 106, Carbon Dioxide Level 19L, Anion Gap 11, Blood Urea Nitrogen 72H, Creatinine 1.79H, Estimat Glomerular Filtration Rate 28, BUN/Creatinine Ratio 40, Glucose Level 147H, Calcium Level 7.2L, Magnesium Level 2.4 11/17/20 05:40: Phosphorus Level 4.7 Microbiology 11/16/20 MRSA Screen - Final, Complete MRSA not isolated 11/15/20 Gram Stain - Final, Resulted 11/15/20 Anaerobic Culture, Resulted Pending 11/15/20 Surgical Culture - Preliminary, Resulted YEAST 11/15/20 Fungal Culture 1, Resulted Pending Assessment/Plan Assessment/Plan Assess & Plan/Chief Complaint s/p extended right hemicolectomy, end ileostomy, mucous fistula, revision ileostomy, drainage intraabd abscess and VAC placement. ween vent. will change vac 5 days. start a carbapenem. cont TPN and NGT transfuse PRBC Clinical Quality Measures DVT/VTE Risk/Contraindication: Risk Factor Score Per Nursin MICHAEL XIONG MD Nov 17, 2020 10:42
[2020-11-17] MEDS ORDERED: VANCOMYCIN 1 GM/NS 250 ML IVPB IV SCH ×2 (11:00)
--- NOTE | 2020-11-17 11:02 | Progress Note - Hospitalist ---
Subjective HPI/CC On Admission Date Seen by Provider: Nov 17, 2020 Time Seen by Provider: 11:00 CC: VDRF following surgery for abscess and ileostomy ischemia HPI: This is a 75yoWF clinic patient of Dr Ba who presents to the ICU following urgent surgery following failure on IRF due to sepsis and elevated wbc. Patient was assessed to have ileostomy ischemia and abscess. Patient is currently on Cipro, Flagyl, Vanc, Kinga and Diflucan. Patient has a h/o colon cancer s/p resection 2 weeks ago and I was consulted for AECOPD due to long smoking hx and severe anemia s/p transfusion and resolution of hyponatremia. She had a complication of torsion requiring diverting ileostomy and she became strong enough to go to IRF but only lasted 2 days before she decompensated. Currently she remains intubated and critically ill. Subjective/Events-last exam Still intubated Reviewed meds and labs and vent settings ABx maintained BP 96/66 Sedation successful WBC 16k Transfused 1 unit Objective Exam Vital Signs Vital Signs Date Time Temp Pulse Resp B/P (MAP) Pulse Ox O2 Delivery O2 Flow Rate FiO2 11/17/20 19:52 Mechanical Ventilator 40.00 11/17/20 18:55 84 20 94 36 11/17/20 18:00 11/17/20 11:42 35.8 Capillary Refill : General Appearance: No Apparent Distress, WD/WN, Chronically ill, Other (intubated) Respiratory: No Accessory Muscle Use, No Respiratory Distress, Decreased Breath Sounds Cardiovascular: Regular Rate, Rhythm Results/Procedures Lab Laboratory Tests 11/17/20 04:50 11/17/20 18:05 Patient resulted labs reviewed. 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-Dr Lynch COPD O2 dependence at home HTN Smoker Hyponatremia Anemia s/p 3 units of blood on med-surg floor Ileus 11/14/20 Plan: IV abx Vent EICU Prognosis guarded 11/17/20: Abx Vent Monitor hgb closely Diagnosis/Problems Diagnosis/Problems (1) Ileus following gastrointestinal surgery (2) Presbycusis of both ears (3) Ileostomy in place (4) Anemia due to acute blood loss (5) Colon cancer (6) Myopathy (7) Hyponatremia (8) COPD (chronic obstructive pulmonary disease) (9) S/P right hemicolectomy Clinical Quality Measures DVT/VTE Risk/Contraindication: Risk Factor Score Per Nursin WILFREDO MARTÍNEZ DO Nov 17, 2020 11:02
[2020-11-17] MEDS: FENTANYL PATCH REMOVAL TP SCH (11:17)
[2020-11-17] MEDS: fentaNYL PATCH 25 MCG (DURAGESIC) TD SCH (11:18)
[2020-11-17] MEDS ORDERED: [UNRECOGNIZED DRUG - OTHER] IV SCH ×12 (17:00)
[2020-11-17] MEDS ORDERED: SODIUM ACETATE IV SCH ×12 (17:00)
[2020-11-17] MEDS ORDERED: SODIUM CHLORIDE IV SCH ×12 (17:00)
[2020-11-17 18:12] LABS: HEMOGLOBIN 7.4 g/dL (11.5-16.0)
--- NOTE | 2020-11-17 20:01 | Consultation-Cardiology ---
HPI-Cardiology Cardiology Consultation: Date of Consultation 11/17/20 Time Seen by a Provider: 17:30 Date of Admission Attending Physician William Lynch MD Admitting Physician Tish Ba MD Consulting Physician JENNIFER JUAREZ MD, MA, FACP, FACC, FSCAI, CCDS HPI: Chief Complaint: Reason for consultation: Ac resp failure requiring continuing mech vent after series of surgeries for colon CA (last on 11/16/20) HPI Pt is on mech vent and unable to provide any history. Reason for Cardiology consultation is noted above Review of Systems-Cardiology Review of Systems Constitutional: other (she is on mech vent and is not able to provide any history) BNX-Qzewrs-Esdoes Hx Patient Social History Marrital Status: single Employed/Student: retired Smoking Status: Current Everyday Smoker 2nd Hand Smoke Exposure: No Immunizations Up To Date Date of Pneumonia Vaccine: Jul 25, 2020 Date of Influenza Vaccine: Jul 25, 2020 Past Medical History PMH As described under Assessment. Family Medical History Family Medical History: No known fam h/o early CAD Allergies and Home Medications Allergies Coded Allergies: Penicillins (Verified Allergy, Unknown, Anaphylaxis, 09/26/20) budesonide (Verified Allergy, Unknown, Nausea, 09/26/20) formoterol (Verified Allergy, Unknown, Nausea, 09/26/20) midazolam (Verified Allergy, Unknown, Anaphylaxis, 09/26/20) Home Medications Ascorbic Acid 500 Mg Capsule, 500 MG PO DAILY, (Reported) Aspirin 81 Mg Tab.chew, 81 MG PO DAILY, (Reported) Cetirizine HCl 10 Mg Tablet, 10 MG PO DAILY, (Reported) Fluticasone/Umeclidin/Vilanter 1 Each Blst.w.dev, 1 EACH IH DAILY, (Reported) Lisinopril 40 Mg Tablet, 40 MG PO DAILY, (Reported) Montelukast Sodium 10 Mg Tablet, 10 MG PO HS, (Reported) Mv-Mn/Folic Acid/Calcium/Vit K 1 Each Tablet, 1 EACH PO DAILY, (Reported) Jackson 3 Polyunsat Fatty Acids 1,000 Mg Cap, 1,000 MG PO DAILY, (Reported) Simvastatin 40 Mg Tablet, 40 MG PO HS, (Reported) Umeclidinium Brm/Vilanterol Tr 1 Each Blst.w.dev, 1 EACH IH DAILY, (Reported) Patient Home Medication List Home Medication List Reviewed: Yes Physical Exam-Cardiology Physical Exam Vital Signs/I&O 11/17/20 11/17/20 11/17/20 11/17/20 08:00 08:17 08:48 09:00 Temp 36.2 Pulse 86 86 84 84 Resp 20 20 20 B/P (MAP) 144/57 98/38 Pulse Ox 93 94 94 O2 Delivery Mechanical Ventilator Mechanical Ventilator Mechanical Ventilator O2 Flow Rate 36.00 36.00 FiO2 36 11/17/20 11/17/20 11/17/20 11/17/20 09:21 10:00 10:23 11:00 Temp 36.2 Pulse 81 83 86 84 Resp 20 20 20 20 B/P (MAP) 96/40 Pulse Ox 94 95 95 95 O2 Delivery Mechanical Ventilator Mechanical Ventilator Mechanical Ventilator O2 Flow Rate 36.00 36.00 FiO2 36 36 11/17/20 11/17/20 11/17/20 11/17/20 11:19 11:42 12:00 12:59 Temp 36.2 35.8 Pulse 84 84 84 Resp 20 20 B/P (MAP) 103/46 Pulse Ox 95 94 O2 Delivery Mechanical Ventilator Mechanical Ventilator O2 Flow Rate 36.00 FiO2 36 11/17/20 11/17/20 11/17/20 11/17/20 13:00 14:00 14:13 14:52 Pulse 83 85 92 92 Resp 20 20 20 B/P (MAP) 114/45 Pulse Ox 95 94 92 O2 Delivery Mechanical Ventilator Mechanical Ventilator O2 Flow Rate 36.00 36.00 FiO2 36 11/17/20 11/17/20 11/17/20 11/17/20 15:00 16:00 17:00 18:00 Pulse 91 91 84 84 Resp 20 20 20 20 B/P (MAP) Pulse Ox 92 93 93 93 O2 Delivery Mechanical Ventilator Mechanical Ventilator Mechanical Ventilator Mechanical Ventilator O2 Flow Rate 36.00 36.00 36.00 36.00 11/17/20 11/17/20 18:55 19:52 Pulse 84 Resp 20 Pulse Ox 94 O2 Delivery Mechanical Ventilator O2 Flow Rate 40.00 FiO2 36 11/17/20 00:00 Intake Total 1956.62 ml Output Total 1495 ml Balance 461.62 ml Capillary Refill : Constitutional: other (on mech vent, unresponsive) HEENT: PERRL Neck: carotid pulses are 2 + bilaterally Respiratory: No accessory muscle use; other (good, bilateral air entry, diminished at the bases) Cardiovascular: regular rate-rhythm, S1 and S2, systolic murmur (soft JOSIE at card base) Gastrointestinal: other (recently post-op, we did not attempt palpation) Extremities: No clubbing, No cyanosis, No significant edema Neurologic/Psychiatric: other (unresponsive, on mech vent) Skin: No rash on exposed areas, No ulcerations on exposed areas Data Review Labs Laboratory Tests 11/16/20 23:17: Glucometer 151H 11/17/20 04:50: White Blood Count 16.9H, Red Blood Count 2.08L, Hemoglobin 6.6*L, Hematocrit 21L , Mean Corpuscular Volume 100H, Mean Corpuscular Hemoglobin 32, Mean Corpuscular Hemoglobin Concent 32, Red Cell Distribution Width 16.8H, Platelet Count 336, Mean Platelet Volume 10.2, Immature Granulocyte % (Auto) 5, Neutrophils (%) (Auto) 84H, Lymphocytes (%) (Auto) 5L, Monocytes (%) (Auto) 7, Eosinophils (%) (Auto) 0, Basophils (%) (Auto) 0, Neutrophils # (Auto) 14.1H, Lymphocytes # (Auto) 0.8L, Monocytes # (Auto) 1.1H, Eosinophils # (Auto) 0.0, Basophils # (Auto) 0.1, Immature Granulocyte # (Auto) 0.8H, Blood Gas Puncture Site RIGHT RADIAL, Blood Gas Patient Temperature 36.4, Arterial Blood pH 7.33*L, Arterial Blood Partial Pressure CO2 40, Arterial Blood Partial Pressure O2 122H, Arterial Blood HCO3 21L, Arterial Blood Total CO2 22.2, Arterial Blood Oxygen Saturation 100, Arterial Blood Base Excess -4.1L, Adi Test YES-POS, Blood Gas Ventilator Setting YES, Blood Gas Inspired Oxygen 36%, Sodium Level 136, Potassium Level 4.5, Chloride Level 106, Carbon Dioxide Level 19L, Anion Gap 11, Blood Urea Nitrogen 72H, Creatinine 1.79H, Estimat Glomerular Filtration Rate 28, BUN/Creatinine Ratio 40, Glucose Level 147H, Calcium Level 7.2L, Magnesium Level 2.4 11/17/20 05:40: Phosphorus Level 4.7 11/17/20 11:40: Glucometer 136H 11/17/20 17:05: Glucometer 127H 11/17/20 18:05: Hemoglobin 7.4L, Hematocrit 22L Microbiology 11/16/20 MRSA Screen - Final, Complete MRSA not isolated 11/15/20 Gram Stain - Final, Resulted 11/15/20 Anaerobic Culture, Resulted Pending 11/15/20 Surgical Culture - Preliminary, Resulted Bobbi glabrata Bobbi species 11/15/20 Fungal Culture 1, Resulted Pending A/P-Cardiology Assessment/Admission Diagnosis S/p extended right hemicolectomy, end ileostomy, revision ileostomy, drainage of intraabdominal abscess and VAC placement Ac resp failure following above surgeries COPD H/o hypertension and hyperlipidemia H/o tobacco use Discussion and Recomendations * Continue current regimen and effort at weaning off the vent * Monitor labs Clinical Quality Measures DVT/VTE Risk/Contraindication: Risk Factor Score Per Nursin JENNIFER JUAREZ MD [facility] CCDS Nov 17, 2020 20:01
[2020-11-17] MEDS: ENOXAPARIN 30 MG/0.3 ML (LOVENOX) SYR SC SCH (20:38)
[2020-11-17] MEDS: CIPROFLOXACIN IV 400MG/200ML 200 ML IV SCH (23:05)
[2020-11-18] MEDS: inSUlin ASPART (NovoLOG) 1 UNIT/0.01 ML (CHARGE PER UNIT) SQ SCH ×5 (00:26→23:12)
[2020-11-18] MEDS: NS IV 1000 ML 1,000 ML IV SCH ×3 (00:55→18:12)
[2020-11-18] MEDS: metroNIDAZOLE 500MG/100ML IVPB 100 ML IV SCH (02:13)
[2020-11-18] MEDS: PROPOFOL DRIP (ICU) 100 ML IV SCH (02:14)
[2020-11-18 03:21] VITALS: BP 95/48
[2020-11-18 03:24] LABS: ABG BASE EXCESS -3.7 MMOL/L (-2.5-2.5); ABG OXYGEN SATURATION 99 % (94-100); ABG PCO2 35 MMHG (35-45); ABG PH 7.38 (7.37-7.43); ABG PO2 94 MMHG (79-93); ABG TCO2 21.8 MMOL/L (21.0-31.0)
[2020-11-18 03:25] LABS: BASOPHILS % (AUTO) 0 % (0-10); EOSINOPHILS % (AUTO) 0 % (0-10); HEMATOCRIT 23 % (35-52); HEMOGLOBIN 7.8 g/dL (11.5-16.0); LYMPHOCYTES # (AUTO) 0.7 10^3/uL (1.0-4.0); LYMPHOCYTES % (AUTO) 5 % (12-44); MEAN CORPUSCULAR HEMOGLOBIN 30 pg (25-34); MEAN CORPUSCULAR HGB CONC 33 g/dL (32-36); MEAN CORPUSCULAR VOLUME 91 fL (80-99); MEAN PLATELET VOLUME 10.2 fL (9.0-12.2); MONOCYTES # (AUTO) 0.9 10^3/uL (0.0-1.0); MONOCYTES % (AUTO) 6 % (0-12); NEUTROPHILS # (AUTO) 12.4 10^3/uL (1.8-7.8); NEUTROPHILS % (AUTO) 83 % (42-75); PLATELET COUNT 271 10^3/uL (130-400); WHITE BLOOD COUNT 14.8 10^3/uL (4.3-11.0)
[2020-11-18 03:26] LABS: ALLENS TEST ART LINE; INSPIRED O2 30%; PATIENT TEMP 36.3; VENTILATOR YES
[2020-11-18 03:39] LABS: POTASSIUM 4.3 MMOL/L (3.6-5.0)
[2020-11-18 03:40] LABS: CALCIUM 7.4 MG/DL (8.5-10.1)
[2020-11-18 03:45] LABS: CREATININE SERUM 1.51 MG/DL (0.60-1.30)
[2020-11-18 03:47] LABS: MAGNESIUM 2.3 MG/DL (1.6-2.4)
--- NOTE | 2020-11-18 04:27 | Pulmonary Consultation ---
History of Present Illness History of Present Illness Date Seen by Provider: Nov 18, 2020 Time Seen by Provider: 04:21 Date of Admission Allergies and Home Medications Allergies Coded Allergies: Penicillins (Verified Allergy, Unknown, Anaphylaxis, 09/26/20) budesonide (Verified Allergy, Unknown, Nausea, 09/26/20) formoterol (Verified Allergy, Unknown, Nausea, 09/26/20) midazolam (Verified Allergy, Unknown, Anaphylaxis, 09/26/20) Home Medications Ascorbic Acid 500 Mg Capsule, 500 MG PO DAILY, (Reported) Aspirin 81 Mg Tab.chew, 81 MG PO DAILY, (Reported) Cetirizine HCl 10 Mg Tablet, 10 MG PO DAILY, (Reported) Fluticasone/Umeclidin/Vilanter 1 Each Blst.w.dev, 1 EACH IH DAILY, (Reported) Lisinopril 40 Mg Tablet, 40 MG PO DAILY, (Reported) Montelukast Sodium 10 Mg Tablet, 10 MG PO HS, (Reported) Mv-Mn/Folic Acid/Calcium/Vit K 1 Each Tablet, 1 EACH PO DAILY, (Reported) Meredith 3 Polyunsat Fatty Acids 1,000 Mg Cap, 1,000 MG PO DAILY, (Reported) Simvastatin 40 Mg Tablet, 40 MG PO HS, (Reported) Umeclidinium Brm/Vilanterol Tr 1 Each Blst.w.dev, 1 EACH IH DAILY, (Reported) Past Yclqjvf-Szziwu-Oyvhwp Hx Past Med/Social Hx: Reviewed Nursing Past Med/Soc Hx, Reviewed and Corrections made Patient Social History Alcohol Use: Denies Use Smoking Status: Current Everyday Smoker Type Used: Cigarettes 2nd Hand Smoke Exposure: No Recent Hopitalizations: No Immunizations Up To Date Date of Pneumonia Vaccine: Jul 25, 2020 Date of Influenza Vaccine: Jul 25, 2020 Seasonal Allergies Seasonal Allergies: Yes Past Medical History Surgeries: Yes (cone section) Abdominal, Tonsillectomy Respiratory: Yes COPD Currently Using CPAP: No Currently Using BIPAP: No Cardiac: Yes High Cholesterol, Hypertension Neurological: No Genitourinary: No Gastrointestinal: Yes (colon cancer) Chronic Constipation Musculoskeletal: Yes Arthritis, Chronic Back Pain Endocrine: No HEENT: Yes (cataracts removed, dentures) Hearing Impairment: Hard of Hearing, Bilateral Hearing Aide Cancer: Yes Colon What Type of Treatment Did You: Surgical Intervention Psychosocial: No Integumentary: No Blood Disorders: No Review of Systems Time Seen by Provider: 04:35 Sepsis Event Evaluation Height, Weight, BMI Height: '" Weight: lbs. oz. kg; 34.48 BMI Method: Exam Exam Vital Signs Date Time Temp Pulse Resp B/P (MAP) Pulse Ox O2 Delivery O2 Flow Rate FiO2 11/18/20 03:33 95 35 11/18/20 03:25 Mechanical Ventilator 28.00 11/18/20 03:21 96 20 98 30 11/18/20 02:27 Mechanical Ventilator 30.00 11/18/20 02:14 98 120/41 11/17/20 23:15 108 17 94 Mechanical Ventilator 35.00 11/17/20 23:10 98 20 95 35 11/17/20 22:30 100 20 94 Mechanical Ventilator 35.00 11/17/20 21:45 99 20 94 Mechanical Ventilator 35.00 11/17/20 21:19 93 Mechanical Ventilator 35 11/17/20 20:52 Mechanical Ventilator 35.00 11/17/20 20:38 84 122/44 11/17/20 20:30 105 20 94 Mechanical Ventilator 40.00 11/17/20 20:06 37.3 11/17/20 19:52 Mechanical Ventilator 40.00 11/17/20 19:15 124 12 90 Mechanical Ventilator 36.00 11/17/20 19:00 87 11/17/20 18:55 84 20 94 36 11/17/20 18:00 84 20 93 Mechanical Ventilator 36.00 11/17/20 17:00 84 20 93 Mechanical Ventilator 36.00 11/17/20 16:00 91 20 93 Mechanical Ventilator 36.00 11/17/20 15:00 91 20 92 Mechanical Ventilator 36.00 11/17/20 14:52 92 114/45 11/17/20 14:13 92 20 92 36 11/17/20 14:00 85 20 94 Mechanical Ventilator 36.00 11/17/20 13:00 83 20 95 Mechanical Ventilator 36.00 11/17/20 12:59 84 11/17/20 12:00 84 20 94 Mechanical Ventilator 36.00 11/17/20 11:42 35.8 11/17/20 11:19 36.2 84 20 103/46 95 Mechanical Ventilator 36 11/17/20 11:00 84 20 95 Mechanical Ventilator 36.00 11/17/20 10:23 86 20 95 36 11/17/20 10:00 83 20 95 Mechanical Ventilator 36.00 11/17/20 09:21 36.2 81 20 96/40 94 Mechanical Ventilator 36 11/17/20 09:00 84 20 94 Mechanical Ventilator 36.00 11/17/20 08:48 36.2 84 20 98/38 94 Mechanical Ventilator 36 11/17/20 08:17 86 144/57 11/17/20 08:00 86 20 93 Mechanical Ventilator 36.00 11/17/20 07:50 93 Mechanical Ventilator 36 11/17/20 07:48 35.8 11/17/20 07:00 88 20 91 Mechanical Ventilator 36.00 11/17/20 07:00 86 11/17/20 06:38 98 21 92 36 11/17/20 06:00 97 16 125/79 (94) 91 Mechanical Ventilator 36.00 11/17/20 05:00 88 20 96/54 (68) 93 Mechanical Ventilator 36.00 I & O 11/18/20 07:00 Intake Total 620 ml Output Total 2370 ml Balance -1750 ml Height & Weight Height: '" Weight: lbs. oz. kg; 34.48 BMI Method: General Appearance: No Apparent Distress, WD/WN, Chronically ill, Other (intubated) HEENT: Normal ENT Inspection Neck: Full Range of Motion Respiratory: No Accessory Muscle Use, No Respiratory Distress, Decreased Breath Sounds Cardiovascular: Regular Rate, Rhythm Gastrointestinal: other (vac in place with serous drainage.) Extremity: Normal Capillary Refill Neurologic/Psychiatric: Alert Skin: Normal Color Lymphatic: No Adenopathy Results Lab Laboratory Tests 11/17/20 04:50 11/17/20 18:05 11/18/20 03:10 Assessment/Plan Assessment/Plan Acute respiratory failure s/p surgery -Pt was admitted on 10/31 for hemicolectomy. Now s/p 3 different surgeries secondary to complications -Pt is currently Vt 450/20/5 - and 28% -Pt has been intubated since 11/15 after last surgery -Will wean vent today -Currently on propofol and Fentony S/p multiple surgeries last surgery was 11/15 s/p revision of iliostomy/hemicolectomy with colostomy Sepsis with abdominal abscess -Currently on Vanco, flagyl, cipro, diflucan, and merrem -I recommend d/cing Vanco, cipro, and Flagyl -Continue Merrem,and Diflucan - will defer to Dr. Lynch -Currently on TPN per surgery S/p hemicolectomy secondary to Colon cancer then ileostomy secondary to torsion. then repeat surgery secondary to persistent intraabdominal sepsis. Debility HX of COPD with oxygen dependance at home Tobacco dependance anemia s/p 4 units of PRBC GIOVANNA BORREGO DO Nov 18, 2020 04:27
[2020-11-18] MEDS: METOCLOPRAMIDE INJ 10 MG/2 ML (REGLAN) IVP SCH ×4 (05:12→23:11)
[2020-11-18] MEDS: HYDROmorphone 2 MG/ML VIAL (DILAUDID) IV PRN ×4 (05:13→20:05)
[2020-11-18] MEDS: NOREPINEPHRINE 4 MG/250 ML 250 ML IV SCH ×3 (05:15→20:06)
[2020-11-18 05:53] LABS: ABG BASE EXCESS -3.9 MMOL/L (-2.5-2.5); ABG OXYGEN SATURATION 95 % (94-100); ABG PCO2 42 MMHG (35-45); ABG PO2 75 MMHG (79-93); ABG TCO2 22.6 MMOL/L (21.0-31.0)
[2020-11-18 06:01] LABS: ABG PH 7.32 (7.37-7.43)
[2020-11-18 06:02] LABS: ALLENS TEST ART LINE; INSPIRED O2 28%; PATIENT TEMP 36.4; VENTILATOR YES
[2020-11-18] MEDS: fentaNYL INJECTION 100 MCG/2 ML AMP IVP PRN ×4 (06:37→23:12)
[2020-11-18] MEDS: RT-ALBUTEROL/IPRATROPIUM 3 ML (DUONEB) VIAL INH SCH ×3 (06:42→18:50)
--- NOTE | 2020-11-18 07:19 | Diagnostic Imaging Report ---
Indication: Intubated. Comparison: 11/17/2020 Findings: Single view of the chest demonstrates stable small effusion and atelectasis in the left base. The right lung is clear. The heart size is stable. There is no pneumothorax. Support devices are stable. Impression: Unchanged aeration of the lungs. No pneumothorax. Dictated by: Dictated on workstation # [id number]
[2020-11-18] MEDS: NICOTINE PATCH REMOVAL TP SCH (07:55)
[2020-11-18] MEDS: NICOTINE 14 MG (NICODERM) PATCH TD SCH ×2 (07:56→11:53)
[2020-11-18] MEDS: meTOproloL SUCCINATE 50 MG (TOPROL XL) TAB PO SCH (07:56)
[2020-11-18] MEDS: FLUCONAZOLE 200 MG/100 ML 50 ML, EMPTY IV BAG (PVC) 1 EA IV SCH ×2 (08:06)
[2020-11-18] MEDS: PANTOPRAZOLE 40 MG (PROTONIX) VIAL IV SCH (08:06)
[2020-11-18] MEDS ORDERED: ANIDULAFUNGIN INJECTION 200 MG in NS (IVPB) 250 ML IV ONE (09:15)
--- NOTE | 2020-11-18 09:32 | Occ Therapy Progress Note ---
Therapy Progress Note Pt. currently on ventilator support. Chart states will attempt weaning today. Will assess pt. when medically stable for Occupational therapy. 0930 KOKI STOKES OT Nov 18, 2020 09:32
[2020-11-18] MEDS ORDERED: TROUGH ORDER-PHARMACY XX NR (10:00)
--- NOTE | 2020-11-18 10:02 | Physical Therapy Progress Note ---
Therapy Progress Note Patient extubated this a.m. and currently on vapotherm. PT consulted with RN on POC. RN requests hold on this date due to patient elevated HR. PT will attempt in a.m. ROBERT SCHWAB PT Nov 18, 2020 10:02
--- NOTE | 2020-11-18 10:45 | Progress Note - Hospitalist ---
MADI HAYWARD MED STUDENT 11/18/20 1045: Subjective HPI/CC On Admission Date Seen by Provider: Nov 18, 2020 Time Seen by Provider: 08:45 CC: VDRF following surgery for abscess and ileostomy ischemia HPI: This is a 75yoWF clinic patient of Dr Ba who presents to the ICU following urgent surgery following failure on IRF due to sepsis and elevated wbc. Patient was assessed to have ileostomy ischemia and abscess. Patient is currently on Cipro, Flagyl, Vanc, Kinga and Diflucan. Patient has a h/o colon ca ncer s/p resection 2 weeks ago and I was consulted for AECOPD due to long smoking hx and severe anemia s/p transfusion and resolution of hyponatremia. She had a complication of torsion requiring diverting ileostomy and she became strong enough to go to IRF but only lasted 2 days before she decompensated. Currently she remains intubated and critically ill. Subjective/Events-last exam No longer intubated ABx maintained BP 120/41 O2 94% WBC 14.8k Pain controlled - reports mild pain when coughing Pt alert and asking for food and water Objective Exam Vital Signs Vital Signs Date Time Temp Pulse Resp B/P (MAP) Pulse Ox O2 Delivery O2 Flow Rate FiO2 11/18/20 09:57 94 Vapotherm 40.00 35 11/18/20 08:00 128 12 11/18/20 08:00 36.1 Capillary Refill : General Appearance: No Apparent Distress, WD/WN, Chronically ill HEENT: PERRL/EOMI; No Moist Mucous Membranes (dry oral mucosa) Respiratory: Chest Non Tender, No Accessory Muscle Use, No Respiratory Distress, Decreased Breath Sounds Cardiovascular: No JVD, Normal Peripheral Pulses, Tachycardia (121 bpm) Gastrointestinal: Other Genital/Rectal: Other (vac in place with serous drainage) Extremity: Normal Capillary Refill, Pedal Edema (2+ bilaterally) Neurologic/Psychiatric: Alert, Normal Mood/Affect Skin: Normal Color, Warm/Dry Lymphatic: No Adenopathy Results/Procedures Lab Laboratory Tests 11/17/20 18:05 11/18/20 03:10 Patient resulted labs reviewed. 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-Dr Lynch COPD O2 dependence at home HTN Smoker Hyponatremia Anemia s/p 3 units of blood on med-surg floor Ileus 11/14/20 Plan: IV abx Vent EICU Prognosis guarded 11/17/20: Abx Vent Monitor hgb closely 11/18/20 ABx Monitor hgb Continue TPN and NGT Supportive care Clinical Quality Measures DVT/VTE Risk/Contraindication: Risk Factor Score Per Nursin WILFREDO MARTÍNEZ DO 11/19/20 0523: Subjective Subjective/Events-last exam Pt was extubated today O2 sat good but she appears to be tachypneaic Pt appears to have a significant amount of recovery ahead of her WBC count normal at 14 Review of Systems General: Fatigue, Malaise Pulmonary: Dyspnea Objective Exam General Appearance: No Apparent Distress, WD/WN, Anxious, Chronically ill Respiratory: Accessory Muscle Use, Decreased Breath Sounds Cardiovascular: Regular Rate, Rhythm Neurologic/Psychiatric: Alert, Oriented x3 Assessment/Plan Assessment and Plan Assess & Plan/Chief Complaint Extubated IV abx Monitor closely ICU Supervisory-Addendum Brief Verification & Attestation Participated in pt care: history, MDM, physical Personally performed: exam, history, MDM, supervision of care Care discussed with: Medical Student Procedures: n/a Results interpretation: Verified all documentation Verification and Attestation of Medical Student E/M Service A medical student performed and documented this service in my presence. I reviewed and verified all information documented by the medical student and made modifications to such information, when appropriate. I personally performed the physical exam and medical decision making. Wilfredo Martínez, Nov 19, 2020,05:22 MADI HAYWARD MED STUDENT Nov 18, 2020 10:45 WILFREDO MARTÍNEZ DO Nov 19, 2020 05:23
[2020-11-18] MEDS: MEROPENEM 500 MG in WATER (STERILE) FOR INJECTION 10 ML IV SCH ×2 (11:45→18:12)
[2020-11-18] MEDS: NS IV 500 ML 500 ML IV SCH (11:50)
[2020-11-18] MEDS: meTOprolol 5 MG/5 ML (LOPRESSOR) VIAL IV SCH ×3 (11:53→23:11)
--- NOTE | 2020-11-18 12:42 | Cardiology Progress Note ---
Subjective Date Seen by Provider: Nov 18, 2020 Time Seen by Provider: 12:39 Subjective/Events-last exam Patient is laying down in bed and, complaint of fatigue and shortness of breath, extubated earlier this morning Review of Systems General: No Chills, No Night Sweats; Fatigue, Malaise; No Appetite, No Other HEENT: No Head Aches, No Visual Changes, No Eye Pain, No Ear Pain, No Dysphasia, No Sinus Congestion, No Post Nasal Drip, No Sore Throat, No Other Pulmonary: Dyspnea; No Cough, No Pleuritic Chest Pain, No Other Cardiovascular: No: Chest Pain, Palpitations, Orthopnea, Paroxysmal Noc. Dyspnea, Edema, Lt Headedness, Other Objective-Cardiology Exam Last Set of Vital Signs Vital Signs 11/18/20 11/18/20 11/18/20 11/18/20 02:14 08:00 09:57 12:00 Temp 36.1 Pulse 128 Resp 6 B/P (MAP) 120/41 Pulse Ox 93 O2 Delivery Vapotherm O2 Flow Rate 40.00 35.00 FiO2 35 Capillary Refill : I&O Intake and Output 11/18/20 00:00 Intake Total 820 ml Output Total 2750 ml Balance -1930 ml Intake Oral 0 ml IV Total 820 ml Output Urine Total 1510 ml Gastric Drainage Total 355 ml Drainage Total 885 ml General: Alert, Oriented X3, Cooperative HEENT: Atraumatic, PERRLA Neck: Supple, No JVD, No Thyromegaly Lungs: Normal Air Movement, Other (bilateral rhonchi) Heart: Normal S1, Normal S2, No Murmurs, Other (sinus tachycardia) Extremities: No Clubbing, No Cyanosis, No Edema, Normal Pulses, No Tendern ess/Swelling Skin: No Rashes, No Breakdown, No Significant Lesion Neuro: Normal Speech Results Lab Laboratory Tests 11/17/20 18:05 11/18/20 03:10 A/P-Cardiology Admission Diagnosis Acute respiratory failure Sinus tachycardia Hypertension Hyperlipidemia Assessment/Plan Acute respiratory failure status post extubation, on Vapotherm, improving slowly. Managed by primary care team Status post extended right hemicolectomy and ileostomy revision for ileostomy, still having abdominal distention and poor bowel sounds, maintained on NG suction COPD, followed and managed by primary care physician next Sinus tachycardia probably secondary to hypoxia, recently intubated, I will start IV Lopressor and monitor tolerance and response Hypertension, monitor blood pressure Hyperlipidemia monitor lipids Clinical Quality Measures DVT/VTE Risk/Contraindication: Risk Factor Score Per Nursin MAYUR CANNON MD Nov 18, 2020 12:42
--- NOTE | 2020-11-18 15:48 | Progress Note ---
Subjective Date Seen by a Provider: Nov 18, 2020 Time Seen by a Provider: 15:00 Subjective/Events-last exam extubated. doing ok so far on vapotherm. serous drainage wound vac and LANE's, wbc trending down. Objective Exam Vital Signs Date Time Temp Pulse Resp B/P (MAP) Pulse Ox O2 Delivery O2 Flow Rate FiO2 11/18/20 15:00 133 34 90 Vapotherm 40.00 30.00 11/18/20 14:43 92 Vapotherm 40.00 30 11/18/20 14:20 92 Vapotherm 40.00 30.00 11/18/20 14:00 118 11 95 Vapotherm 40.00 35.00 11/18/20 13:00 114 13 94 Vapotherm 40.00 35.00 11/18/20 12:58 36.7 11/18/20 12:40 115 11/18/20 12:00 128 6 93 Vapotherm 40.00 35.00 11/18/20 11:00 125 15 93 Vapotherm 40.00 35.00 11/18/20 10:20 91 Vapotherm 40.00 35.00 11/18/20 10:00 126 17 91 Vapotherm 40.00 40.00 11/18/20 09:57 94 Vapotherm 40.00 35 11/18/20 09:00 133 28 92 Vapotherm 40.00 40.00 11/18/20 08:33 93 Vapotherm 40.00 40.00 11/18/20 08:00 128 12 95 Vapotherm 40.00 50.00 11/18/20 08:00 96 Vapotherm 40.00 50 11/18/20 08:00 36.1 11/18/20 07:00 120 15 96 Vapotherm 40.00 50.00 11/18/20 06:43 96 Vapotherm 40.00 50 11/18/20 06:43 121 11/18/20 06:15 Vapotherm 40.00 50.00 11/18/20 06:00 125 15 96 Mechanical Ventilator 28.00 11/18/20 05:00 114 19 92 Mechanical Ventilator 28.00 11/18/20 04:00 117 13 91 Mechanical Ventilator 28.00 11/18/20 03:33 95 35 11/18/20 03:25 Mechanical Ventilator 28.00 11/18/20 03:21 96 20 98 30 11/18/20 03:00 92 20 95 Mechanical Ventilator 30.00 11/18/20 02:27 Mechanical Ventilator 30.00 11/18/20 02:14 98 120/41 11/18/20 02:00 94 20 96 Mechanical Ventilator 35.00 11/18/20 01:20 94 20 96 Mechanical Ventilator 35.00 11/18/20 01:00 93 20 93 Mechanical Ventilator 35.00 11/18/20 01:00 93 11/18/20 00:00 105 12 94 Mechanical Ventilator 35.00 11/17/20 23:15 108 17 94 Mechanical Ventilator 35.00 11/17/20 23:10 98 20 95 35 11/17/20 22:30 100 20 94 Mechanical Ventilator 35.00 11/17/20 21:45 99 20 94 Mechanical Ventilator 35.00 11/17/20 21:19 93 Mechanical Ventilator 35 11/17/20 20:52 Mechanical Ventilator 35.00 11/17/20 20:38 84 122/44 11/17/20 20:30 105 20 94 Mechanical Ventilator 40.00 11/17/20 20:06 37.3 11/17/20 19:52 Mechanical Ventilator 40.00 11/17/20 19:15 124 12 90 Mechanical Ventilator 36.00 11/17/20 19:00 87 11/17/20 18:55 84 20 94 36 11/17/20 18:00 84 20 93 Mechanical Ventilator 36.00 11/17/20 17:00 84 20 93 Mechanical Ventilator 36.00 11/17/20 16:00 91 20 93 Mechanical Ventilator 36.00 I & O 11/18/20 07:00 Intake Total 620 ml Output Total 3025 ml Balance -2405 ml Capillary Refill : General Appearance: No Apparent Distress HEENT: PERRL/EOMI Neck: Full Range of Motion Respiratory: Decreased Breath Sounds, Rhonci, Wheezing Cardiovascular: Regular Rate, Rhythm Gastrointestinal: tenderness, other (vac in place) Extremity: Normal Capillary Refill Neurologic/Psychiatric: Alert Skin: Normal Color Lymphatic: No Adenopathy Results Lab Laboratory Tests 11/17/20 17:05: Glucometer 127H 11/17/20 18:05: Hemoglobin 7.4L, Hematocrit 22L 11/17/20 23:39: Glucometer 138H 11/18/20 03:01: Phosphorus Level 4.4 11/18/20 03:10: White Blood Count 14.8H, Red Blood Count 2.57L, Hemoglobin 7.8L, Hematocrit 23L, Mean Corpuscular Volume 91, Mean Corpuscular Hemoglobin 30, Mean Corpuscular Hemoglobin Concent 33, Red Cell Distribution Width 16.9H, Platelet Count 271, Mean Platelet Volume 10.2, Immature Granulocyte % (Auto) 6, Neutrophils (%) (Auto) 83H, Lymphocytes (%) (Auto) 5L, Monocytes (%) (Auto) 6, Eosinophils (%) (Auto) 0, Basophils (%) (Auto) 0, Neutrophils # (Auto) 12.4H, Lymphocytes # (Auto) 0.7L, Monocytes # (Auto) 0.9, Eosinophils # (Auto) 0.0, Basophils # (Auto) 0.0, Immature Granulocyte # (Auto) 0.8H, Blood Gas Puncture Site RIGHT ART LINE, Blood Gas Patient Temperature 36.3, Arterial Blood pH 7.38, Arterial Blood Partial Pressure CO2 35, Arterial Blood Partial Pressure O2 94H, Arterial Blood HCO3 21L, Arterial Blood Total CO2 21.8, Arterial Blood Oxygen Saturation 99, Arterial Blood Base Excess -3.7L, Adi Test ART LINE, Blood Gas Ventilator Setting YES, Blood Gas Inspired Oxygen 30%, Sodium Level 139, Potassium Level 4.3, Chloride Level 110H, Carbon Dioxide Level 18L, Anion Gap 11, Blood Urea Nitrogen 70H, Creatinine 1.51H, Estimat Glomerular Filtration Rate 34, BUN/Creatinine Ratio 46, Glucose Level 135H, Calcium Level 7.4L, Magnesium Level 2.3 11/18/20 05:45: Blood Gas Puncture Site RIGHT ARTLINE, Blood Gas Patient Temperature 36.4, Arterial Blood pH 7.32*L, Arterial Blood Partial Pressure CO2 42, Arterial Blood Partial Pressure O2 75L, Arterial Blood HCO3 21L, Arterial Blood Total CO2 22.6, Arterial Blood Oxygen Saturation 95, Arterial Blood Base Excess -3.9L, Adi Test ART LINE, Blood Gas Ventilator Setting YES, Blood Gas Inspired Oxygen 28% 11/18/20 11:49: Glucometer 113H Microbiology 11/16/20 MRSA Screen - Final, Complete MRSA not isolated 11/15/20 Gram Stain - Final, Resulted 11/15/20 Anaerobic Culture, Resulted Pending 11/15/20 Surgical Culture - Preliminary, Resulted Bobbi glabrata Bobbi species 11/15/20 Fungal Culture 1 - Preliminary, Resulted Bobbi glabrata Assessment/Plan Assessment/Plan Assess & Plan/Chief Complaint s/p extended right hemicolectomy, end ileostomy, mucous fistula, revision ileostomy, drainage intraabd abscess and VAC placement. will change vac 5 days. start a carbapenem. cont TPN and NGT transfuse PRBC Clinical Quality Measures DVT/VTE Risk/Contraindication: Risk Factor Score Per Nursin MICHAEL XIONG MD Nov 18, 2020 15:48
[2020-11-18] MEDS ORDERED: SODIUM ACETATE IV SCH ×9 (17:00)
[2020-11-18] MEDS ORDERED: [UNRECOGNIZED DRUG - OTHER] IV SCH ×9 (17:00)
[2020-11-18] MEDS ORDERED: SODIUM PHOSPHATE IV SCH ×9 (17:00)
[2020-11-18] MEDS ORDERED: POTASSIUM ACETATE IV SCH ×9 (17:00)
[2020-11-18] MEDS: ENOXAPARIN 30 MG/0.3 ML (LOVENOX) SYR SC SCH (20:05)
[2020-11-18] MEDS: fentaNYL PATCH 25 MCG (DURAGESIC) TD SCH (20:06)
[2020-11-19] MEDS: MEROPENEM 500 MG in WATER (STERILE) FOR INJECTION 10 ML IV SCH ×3 (02:17→18:25)
[2020-11-19] MEDS: HYDROmorphone 2 MG/ML VIAL (DILAUDID) IV PRN ×2 (02:18→10:35)
[2020-11-19 02:43] LABS: BASOPHILS # (AUTO) 0.1 10^3/uL (0.0-0.1); BASOPHILS % (AUTO) 1 % (0-10); EOSINOPHILS % (AUTO) 0 % (0-10); HEMATOCRIT 25 % (35-52); HEMOGLOBIN 8.2 g/dL (11.5-16.0); LYMPHOCYTES # (AUTO) 0.8 10^3/uL (1.0-4.0); LYMPHOCYTES % (AUTO) 5 % (12-44); MEAN CORPUSCULAR HEMOGLOBIN 31 pg (25-34); MEAN CORPUSCULAR HGB CONC 34 g/dL (32-36); MEAN CORPUSCULAR VOLUME 91 fL (80-99); MEAN PLATELET VOLUME 10.2 fL (9.0-12.2); MONOCYTES # (AUTO) 1.2 10^3/uL (0.0-1.0); MONOCYTES % (AUTO) 7 % (0-12); NEUTROPHILS # (AUTO) 13.6 10^3/uL (1.8-7.8); NEUTROPHILS % (AUTO) 80 % (42-75); PLATELET COUNT 308 10^3/uL (130-400)
[2020-11-19 02:54] LABS: POTASSIUM 4.3 MMOL/L (3.6-5.0)
[2020-11-19 02:55] LABS: CALCIUM 7.8 MG/DL (8.5-10.1)
[2020-11-19 03:00] LABS: CREATININE SERUM 1.22 MG/DL (0.60-1.30)
[2020-11-19 03:02] LABS: MAGNESIUM 2.3 MG/DL (1.6-2.4)
[2020-11-19 03:41] LABS: ABG BASE EXCESS -1.6 MMOL/L (-2.5-2.5); ABG OXYGEN SATURATION 99 % (94-100); ABG PCO2 41 MMHG (35-45); ABG PH 7.37 (7.37-7.43); ABG PO2 68 MMHG (79-93); ABG TCO2 24.3 MMOL/L (21.0-31.0)
[2020-11-19 03:42] LABS: ALLENS TEST YES-POS; INSPIRED O2 35%; PATIENT TEMP 36.4; VENTILATOR NO
--- NOTE | 2020-11-19 04:33 | Pulmonary Progress Note ---
Subjective Time Seen by a Provider: 04:31 Subjective/Events-last exam Extubated yesterday. Sepsis Event Evaluation Height, Weight, BMI Height: '" Weight: lbs. oz. kg; 34.48 BMI Method: Exam Exam Vital Signs Date Time Temp Pulse Resp B/P (MAP) Pulse Ox O2 Delivery O2 Flow Rate FiO2 11/19/20 03:19 Vapotherm 40.00 35.00 11/19/20 03:00 101 11 96 Vapotherm 40.00 30.00 11/19/20 02:00 102 11 96 Vapotherm 40.00 30.00 11/19/20 01:41 96 Vapotherm 40.00 35 11/19/20 01:00 100 10 94 Vapotherm 40.00 30.00 11/19/20 00:00 95 9 94 Vapotherm 40.00 30.00 11/18/20 23:26 36.2 Vapotherm 40.00 30.00 11/18/20 23:00 114 15 92 Vapotherm 40.00 30.00 11/18/20 22:00 111 14 92 Vapotherm 40.00 30.00 11/18/20 21:27 92 Vapotherm 40.00 30 11/18/20 21:00 114 11 92 Vapotherm 40.00 30.00 11/18/20 20:30 94 Vapotherm 40.00 30 11/18/20 20:13 Vapotherm 40.00 30.00 11/18/20 20:00 121 26 89 Vapotherm 40.00 30.00 11/18/20 19:39 36.4 11/18/20 19:00 113 18 92 Vapotherm 40.00 30.00 11/18/20 19:00 113 11/18/20 18:50 92 Vapotherm 40.00 30 11/18/20 18:13 91 Vapotherm 40.00 30.00 11/18/20 18:00 102 6 94 Vapotherm 40.00 30.00 11/18/20 17:42 90 Vapotherm 40.00 35.00 11/18/20 17:00 120 16 91 Vapotherm 40.00 30.00 11/18/20 16:14 36.6 11/18/20 16:00 124 26 91 Vapotherm 40.00 30.00 11/18/20 15:00 133 34 90 Vapotherm 40.00 30.00 11/18/20 14:43 92 Vapotherm 40.00 30 11/18/20 14:20 92 Vapotherm 40.00 30.00 11/18/20 14:00 118 11 95 Vapotherm 40.00 35.00 11/18/20 13:00 114 13 94 Vapotherm 40.00 35.00 11/18/20 12:58 36.7 11/18/20 12:40 115 11/18/20 12:00 128 6 93 Vapotherm 40.00 35.00 11/18/20 11:00 125 15 93 Vapotherm 40.00 35.00 11/18/20 10:20 91 Vapotherm 40.00 35.00 11/18/20 10:00 126 17 91 Vapotherm 40.00 40.00 11/18/20 09:57 94 Vapotherm 40.00 35 11/18/20 09:00 133 28 92 Vapotherm 40.00 40.00 11/18/20 08:33 93 Vapotherm 40.00 40.00 11/18/20 08:00 128 12 95 Vapotherm 40.00 50.00 11/18/20 08:00 96 Vapotherm 40.00 50 11/18/20 08:00 36.1 11/18/20 07:00 120 15 96 Vapotherm 40.00 50.00 11/18/20 06:43 96 Vapotherm 40.00 50 11/18/20 06:43 121 11/18/20 06:15 Vapotherm 40.00 50.00 11/18/20 06:00 125 15 96 Mechanical Ventilator 28.00 11/18/20 05:00 114 19 92 Mechanical Ventilator 28.00 I & O 11/19/20 07:00 Intake Total 2162.1667 ml Output Total 3720 ml Balance -1557.8333 ml Height & Weight Height: '" Weight: lbs. oz. kg; 34.48 BMI Method: General Appearance: No Apparent Distress HEENT: PERRL/EOMI Neck: Full Range of Motion Respiratory: Decreased Breath Sounds, Rhonci, Wheezing Cardiovascular: Regular Rate, Rhythm Gastrointestinal: tenderness, other (vac in place) Extremity: Normal Capillary Refill Neurologic/Psychiatric: Alert Skin: Normal Color Lymphatic: No Adenopathy Results Lab Laboratory Tests 11/17/20 04:50 11/17/20 18:05 11/18/20 03:10 11/19/20 02:28 Assessment/Plan Assessment/Plan Acute respiratory failure s/p surgery -Pt was admitted on 10/31 for hemicolectomy. Now s/p 3 different surgeries secondary to complications -Pt extubated yesterday S/p multiple surgeries last surgery was 11/15 s/p revision of iliostomy/hemicolectomy with colostomy Sepsis with abdominal abscess - Merrem,and Eraxis -Currently on TPN per surgery HTN -Add Vasotec S/p hemicolectomy secondary to Colon cancer then ileostomy secondary to torsion. then repeat surgery secondary to persistent intraabdominal sepsis. Debility HX of COPD with oxygen dependance at home Tobacco dependance anemia s/p 4 units of PRBC GIOVANNA BORREGO DO Nov 19, 2020 04:32
[2020-11-19] MEDS: inSUlin ASPART (NovoLOG) 1 UNIT/0.01 ML (CHARGE PER UNIT) SQ SCH ×3 (04:43→17:15)
[2020-11-19] MEDS: fentaNYL INJECTION 100 MCG/2 ML AMP IVP PRN ×4 (04:44→21:55)
[2020-11-19] MEDS: meTOprolol 5 MG/5 ML (LOPRESSOR) VIAL IV SCH ×3 (04:44→17:15)
[2020-11-19] MEDS: METOCLOPRAMIDE INJ 10 MG/2 ML (REGLAN) IVP SCH ×3 (04:44→17:15)
[2020-11-19] MEDS ORDERED: HALOPERIDOL 5 MG/ML (HALDOL) VIAL ONE (06:07)
[2020-11-19] MEDS: HALOPERIDOL 5 MG/ML (HALDOL) VIAL IM PRN ×2 (06:12→22:18)
--- NOTE | 2020-11-19 07:42 | Diagnostic Imaging Report ---
CLINICAL INDICATION: Patient intubated. Patient on ventilator. EXAM: Portable chest x-ray upright view. COMPARISONS: Chest x-ray dated 11/18/2020. FINDINGS: There is interval removal of the ET tube. Feeding tube is seen in good position. 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 There is mild bibasilar atelectasis and/or infiltrates again noted which has not significantly changed in interim. There is no pleural effusion or pneumothorax. Left subclavian central line seen in stable position with tip overlying the left innominate vein. Pulmonary vasculature and cardiac silhouette is stable and within normal limits. IMPRESSION: 1: Interval removal of the ET tube. Otherwise lines and tubes are in similar position. 2: Stable mild bibasilar atelectasis and/or infiltrate. Dictated by: Dictated on workstation # [id number]
[2020-11-19] MEDS: RT-ALBUTEROL/IPRATROPIUM 3 ML (DUONEB) VIAL INH SCH ×3 (07:51→18:33)
[2020-11-19] MEDS: NICOTINE 14 MG (NICODERM) PATCH TD SCH (07:53)
[2020-11-19] MEDS: ENALAPRILAT 2.5 MG/2 ML (VASOTEC) VIAL IV SCH ×2 (07:53→20:48)
[2020-11-19] MEDS: PANTOPRAZOLE 40 MG (PROTONIX) VIAL IV SCH (07:53)
[2020-11-19] MEDS: ANIDULAFUNGIN INJECTION 100 MG in NS (IVPB) 100 ML IV SCH (07:53)
[2020-11-19] MEDS: meTOproloL SUCCINATE 50 MG (TOPROL XL) TAB PO SCH (07:55)
[2020-11-19] MEDS: NICOTINE PATCH REMOVAL TP SCH (07:55)
--- NOTE | 2020-11-19 09:16 | Cardiology Progress Note ---
Subjective Date Seen by Provider: Nov 19, 2020 Time Seen by Provider: 09:15 Subjective/Events-last exam patient was seen at bedside laying down, complaining of generalized weakness and abdominal pain Review of Systems General: No Chills, No Night Sweats; Fatigue, Malaise; No Appetite, No Other HEENT: No Head Aches, No Visual Changes, No Eye Pain, No Ear Pain, No Dys phasia, No Sinus Congestion, No Post Nasal Drip, No Sore Throat, No Other Pulmonary: Dyspnea; No Cough, No Pleuritic Chest Pain, No Other Cardiovascular: No: Chest Pain, Palpitations, Orthopnea, Paroxysmal Noc. Dyspnea, Edema, Lt Headedness, Other Objective-Cardiology Exam Last Set of Vital Signs Vital Signs 11/18/20 11/19/20 11/19/20 11/19/20 02:14 04:49 06:00 07:51 Temp 36.4 Pulse 101 Resp 27 B/P (MAP) 120/41 Pulse Ox 97 O2 Delivery Vapotherm O2 Flow Rate 40.00 FiO2 35 Capillary Refill : I&O Intake and Output 11/19/20 00:00 Intake Total 2162.1667 ml Output Total 4325 ml Balance -2162.8333 ml Intake Oral 0 ml IV Total 2162.1667 ml Output Urine Total 2065 ml Stool Total 25 ml Gastric Drainage Total 775 ml Drainage Total 1460 ml General: Alert, Oriented X3, Cooperative HEENT: Atraumatic, PERRLA Neck: Supple, No JVD, No Thyromegaly Lungs: Normal Air Movement, Other (bilateral rhonchi) Heart: Normal S1, Normal S2, No Murmurs, Other (sinus tachycardia) Extremities: No Clubbing, No Cyanosis, No Edema, Normal Pulses, No Tenderness/Swelling Skin: No Rashes, No Breakdown, No Significant Lesion Neuro: Normal Speech Results Lab Laboratory Tests 11/19/20 02:28 A/P-Cardiology Admission Diagnosis Acute respiratory failure Sinus tachycardia Hypertension Hyperlipidemia Assessment/Plan status post acute respiratory failure, extubated on November 18, 2020, improving slowly. Still having some shortness of breath, Managed by primary care team Status post extended right hemicolectomy and ileostomy revision for ileostomy, still having abdominal distention and poor bowel sounds, maintained on NG suction COPD, followed and managed by primary care physician Sinus tachycardia, secondary to hypoxia, and anemia, started on low-dose beta blockers. Continue to monitor Hypertension, monitor blood pressure Hyperlipidemia monitor lipids Clinical Quality Measures DVT/VTE Risk/Contraindication: Risk Factor Score Per Nursin MAYUR CANNON MD Nov 19, 2020 09:16
--- NOTE | 2020-11-19 09:34 | Physical Therapy Evaluation ---
PT Evaluation-General Medical Diagnosis Admission Date Nov 15, 2020 at 12:25 Medical Diagnosis: colon cancer Onset Date: Nov 15, 2020 Therapy Diagnosis Therapy Diagnosis: generalized weakness/debility Precautions Precautions/Isolations: Aspiration, Fall Prevention, Standard Precautions, Pressure Ulcer Referral Physician: Ernesto Reason for Referral: Evaluation/Treatment Medical History Pertinent Medical History: COPD, HTN Additional Medical History lengthy hospital stay due to colon cancer with multiple surgeries Current History ischemic bowel Reviewed History: Yes Social History Home: Single Level Current Living Status: Other Family Prior Prior Level of Function SCALE: Activities may be completed with or without assistive devices. 3-Iecbdbfjkg-lftathq completes the activity by him/herself with no assistance from a helper. 5-Set-up or Clean-up Assistance-helper sets up or cleans up; patient completes activity. Valier assists only prior to or following the activity. 4-Supervision or Touching Assistance-helper provides verbal cues and/or touching/steadying and/or contact guard assistance as patient completes activity. Assistance may be provided throughout the activity or intermittently. 3-Partial/Moderate Assistance-helper does LESS THAN HALF the effort. Valier lifts, holds or supports trunk or limbs, but provides less than half the effort. 2-Substantial/Maximal Assistance-helper does MORE THAN HALF the effort. Valier lifts or holds trunk or limbs and provides more than half the effort. 8-Uwobttuqk-nzjpwm does ALL the effort. Patient does none of the effort to complete the activity. Or, the assistance of 2 or more helpers is required for the patient to complete the activity. If activity was not attempted, code reason: 7-Patient Refused. 9-Not Applicable-not attempted and the patient did not perform the activity before the current illness, exacerbation or injury. 10-Not Attempted due to Environmental Limitations-(lack of equipment, weather restraints, etc.). 88-Not Attempted due to Medical Conditions or Safety Concerns. Bed Mobility: 6 Transfers (B,C,W/C): 6 Gait: 6 Stairs: 6 Indoor Mobility (Ambulation): Independent Stairs: Independent Prior Devices Use: None prior to hospital stay and multiple surgeries PT Evaluation-Current Subjective Patient is writhing in pain. RN present. Pain Numeric Pain Scale: 10-Worst Possible Pain Location Body Site: Abdomen Objective Patient Orientation: Confused Attachments: Central Line, NG Tube, Colostomy/Ileostomy, Oxygen, Drains, Lam Catheter wound vac ROM/Strength ROM Lower Extremities bilateral LE WFL (noted edema) Strength Lower Extremities 2-/5 grossly bilateral LE Integumentary/Posture Integumentary refer to nursing notes Bladder Incontinence: Lam Cath Neuromuscular (Tone, Coordination, Reflexes) severely diminished with all Sensory Vision: Unable to Assess Hearing: Unable to Assess Transfers Roll Left to Right (QC): 1 (x 2 to reposition sidelying right with pillow placement for comfort) Gait Does the Patient Walk?: No and Walking Goal IS indicated Assessment/Needs 75 y.o. very ill patient, will be seen by skilled PT to address functional strength and mobility. Rehab Potential: Guarded PT Short Term Goals Short Term Goals Time Frame: Dec 07, 2020 Roll Left & Right: 3 Sit to lyin Lying to sitting on side of be: 3 Sit to stand: 3 Chair/zwk-eu-cqevi transfer: 3 PT [facility] Goals [facility] Goals PT [facility] Goals Time Frame: Dec 21, 2020 Roll Left & Right (QC): 5 Sit to Lying (QC): 5 Lying-Sitting on Side/Bed(QC): 5 Sit to Stand (QC): 5 Chair/Gox-hi-Kvero Xfer(QC): 5 Toilet Transfer (QC): 5 Does the Patient Walk: No and Walking Goal IS indicated Walk 10 feet (QC): 3 Walk 50ft with 2 Turns (QC): 3 PT Plan Problem List Problem List: Activity Tolerance, Functional Strength, Safety, Balance, Gait, Transfer, Bed Mobility, ROM, Other (uncontrolled abdominal pain) Treatment/Plan Treatment Plan: Continue Plan of Care Treatment Plan: Bed Mobility, Education, Functional Activity Palak, Functional Strength, Gait, Safety, Therapeutic Exercise, Transfers Treatment Duration: Dec 21, 2020 Frequency: 5 times per week Estimated Hrs Per Day: .25 hour per day (.25-.5) Time/GCodes Time In: 816 Time Out: 831 Total Billed Treatment Time: 15 Total Billed Treatment 1 visit EVModC 15 min ROBERT SCHWAB PT Nov 19, 2020 09:34
--- NOTE | 2020-11-19 10:26 | Progress Note - Hospitalist ---
MADI HAYWARD MED STUDENT 11/19/20 1026: Subjective HPI/CC On Admission Date Seen by Provider: Nov 19, 2020 Time Seen by Provider: 08:25 CC: VDRF following surgery for abscess and ileostomy ischemia HPI: This is a 75yoWF clinic patient of Dr Ba who presents to the ICU following urgent surgery following failure on IRF due to sepsis and elevated wbc. Patient was assessed to have ileostomy ischemia and abscess. Patient is currently on Cipro, Flagyl, Vanc, Kinga and Diflucan. Patient has a h/o colon ca ncer s/p resection 2 weeks ago and I was consulted for AECOPD due to long smoking hx and severe anemia s/p transfusion and resolution of hyponatremia. She had a complication of torsion requiring diverting ileostomy and she became strong enough to go to IRF but only lasted 2 days before she decompensated. Currently she remains intubated and critically ill. Subjective/Events-last exam Pt moderately alert this am but groggy Nursing staff reported Haldol injection in the night for ICU psychosis Reports 15/10 abdominal pain Requests ice chips Hgb steady at 8.2 WBC 17k Increased pedal edema today 3+ bilaterally Pt reports shortness of breath but denies chest pain Vasotec added for HTN yesterday - today bp 95/48 Objective Exam Vital Signs Vital Signs Date Time Temp Pulse Resp B/P (MAP) Pulse Ox O2 Delivery O2 Flow Rate FiO2 11/19/20 08:45 36.0 11/19/20 08:00 97 Vapotherm 40.00 35 11/19/20 06:00 101 27 Capillary Refill : General Appearance: No Apparent Distress, Chronically ill HEENT: No Moist Mucous Membranes Neck: Non Tender Respiratory: Chest Non Tender, No Accessory Muscle Use, No Respiratory Distress, Decreased Breath Sounds Cardiovascular: No JVD, Normal Peripheral Pulses, Tachycardia (101 bpm) Gastrointestinal: No Pulsatile Mass, Abnormal Bowel Sounds (bowel sounds not appreciated after 30 seconds of listening), Tenderness (incisional pain), Other (VAC draining serous fluid) Extremity: Normal Capillary Refill, No Calf Tenderness, Pedal Edema (3+ bilaterally) Neurologic/Psychiatric: Alert, Normal Mood/Affect Skin: Normal Color, Warm/Dry Lymphatic: No Adenopathy Results/Procedures Lab Laboratory Tests 11/19/20 02:28 Patient resulted labs reviewed. 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-Dr Lynch COPD O2 dependence at home HTN Smoker Hyponatremia Anemia s/p 3 units of blood on med-surg floor Ileus 11/14/20 Plan: IV abx Vent EICU Prognosis guarded 11/17/20: Abx Vent Monitor hgb closely 11/18/20 ABx Monitor hgb Continue TPN and NGT Supportive care 11/19/20 Continue TPN and NGT Monitor BP and hgb Abx Supportive care Clinical Quality Measures DVT/VTE Risk/Contraindication: Risk Factor Score Per Nursin WILFREDO MARTÍNEZ DO 11/20/20 0545: Subjective Subjective/Events-last exam Pt a bit lethargic Received Haldol last night ICU psychosis noted Hgb 8.2 B/L lower extremity edema significant due to low albumin WC of 17,000 Objective Exam General Appearance: No Apparent Distress, WD/WN, Anxious, Chronically ill Respiratory: Lungs Clear Cardiovascular: Regular Rate, Rhythm Assessment/Plan Assessment and Plan Assess & Plan/Chief Complaint 11/19/20: High risk for reintubation Prognosis guarded Supervisory-Addendum Brief Verification & Attestation Participated in pt care: history, MDM, physical Personally performed: exam, history, MDM, supervision of care Care discussed with: Medical Student Procedures: n/a Results interpretation: Verified all documentation Verification and Attestation of Medical Student E/M Service A medical student performed and documented this service in my presence. I reviewed and verified all information documented by the medical student and made modifications to such information, when appropriate. I personally performed the physical exam and medical decision making. Wilfredo Martínez, Nov 20, 2020,05:45 MADI HAYWARD MED STUDENT Nov 19, 2020 10:26 WILFREDO MARTÍNEZ DO Nov 20, 2020 05:45
--- NOTE | 2020-11-19 12:51 | Progress Note ---
Subjective Date Seen by a Provider: Nov 19, 2020 Time Seen by a Provider: 13:00 Subjective/Events-last exam doinm ok. clogged abd vac due to very thick/ gelationous secretions. suspect carcinomatosis. [place] for cytology Objective Exam Vital Signs Date Time Temp Pulse Resp B/P (MAP) Pulse Ox O2 Delivery O2 Flow Rate FiO2 11/19/20 11:09 95 Vapotherm 15.00 35 11/19/20 11:00 105 7 93 Vapotherm 40.00 35.00 11/19/20 10:00 114 17 92 Vapotherm 40.00 35.00 11/19/20 09:00 111 24 92 Vapotherm 40.00 35.00 11/19/20 08:45 36.0 11/19/20 08:00 97 Vapotherm 40.00 35 11/19/20 08:00 101 6 97 Vapotherm 40.00 35.00 11/19/20 07:51 97 Vapotherm 40.00 35 11/19/20 07:00 101 20 96 Vapotherm 40.00 35.00 11/19/20 06:00 101 27 94 Vapotherm 40.00 35.00 11/19/20 05:00 93 14 94 Vapotherm 40.00 35.00 11/19/20 04:49 36.4 Vapotherm 40.00 35.00 11/19/20 04:00 105 17 96 Vapotherm 40.00 35.00 11/19/20 03:19 Vapotherm 40.00 35.00 11/19/20 03:00 101 11 96 Vapotherm 40.00 30.00 11/19/20 02:00 102 11 96 Vapotherm 40.00 30.00 11/19/20 01:41 96 Vapotherm 40.00 35 11/19/20 01:00 100 10 94 Vapotherm 40.00 30.00 11/19/20 01:00 100 11/19/20 00:00 95 9 94 Vapotherm 40.00 30.00 11/18/20 23:26 36.2 Vapotherm 40.00 30.00 11/18/20 23:00 114 15 92 Vapotherm 40.00 30.00 11/18/20 22:00 111 14 92 Vapotherm 40.00 30.00 11/18/20 21:27 92 Vapotherm 40.00 30 11/18/20 21:00 114 11 92 Vapotherm 40.00 30.00 11/18/20 20:30 94 Vapotherm 40.00 30 11/18/20 20:13 Vapotherm 40.00 30.00 11/18/20 20:00 121 26 89 Vapotherm 40.00 30.00 11/18/20 19:39 36.4 11/18/20 19:00 113 18 92 Vapotherm 40.00 30.00 11/18/20 19:00 113 11/18/20 18:50 92 Vapotherm 40.00 30 11/18/20 18:13 91 Vapotherm 40.00 30.00 11/18/20 18:00 102 6 94 Vapotherm 40.00 30.00 11/18/20 17:42 90 Vapotherm 40.00 35.00 11/18/20 17:00 120 16 91 Vapotherm 40.00 30.00 11/18/20 16:14 36.6 11/18/20 16:00 124 26 91 Vapotherm 40.00 30.00 11/18/20 15:00 133 34 90 Vapotherm 40.00 30.00 11/18/20 14:43 92 Vapotherm 40.00 30 11/18/20 14:20 92 Vapotherm 40.00 30.00 11/18/20 14:00 118 11 95 Vapotherm 40.00 35.00 11/18/20 13:00 114 13 94 Vapotherm 40.00 35.00 11/18/20 12:58 36.7 I & O 11/19/20 07:00 Intake Total 3162.1667 ml Output Total 4160 ml Balance -997.8333 ml Capillary Refill : General Appearance: No Apparent Distress, WD/WN HEENT: PERRL/EOMI Neck: Full Range of Motion, Normal Inspection Respiratory: Decreased Breath Sounds Gastrointestinal: soft, tenderness Extremity: Normal Capillary Refill Neurologic/Psychiatric: Alert Skin: Normal Color Lymphatic: No Adenopathy Results Lab Laboratory Tests 11/18/20 17:03: Glucometer 107 11/18/20 23:10: Glucometer 141H 11/19/20 02:28: White Blood Count 17.0H, Red Blood Count 2.69L, Hemoglobin 8.2L, Hematocrit 25L, Mean Corpuscular Volume 91, Mean Corpuscular Hemoglobin 31, Mean Corpuscular Hemoglobin Concent 34, Red Cell Distribution Width 17.0H, Platelet Count 308, Mean Platelet Volume 10.2, Immature Granulocyte % (Auto) 8, Neutrophils (%) (Auto) 80H, Lymphocytes (%) (Auto) 5L, Monocytes (%) (Auto) 7, Eosinophils (%) (Auto) 0, Basophils (%) (Auto) 1, Neutrophils # (Auto) 13.6H, Lymphocytes # (Auto) 0.8L, Monocytes # (Auto) 1.2H, Eosinophils # (Auto) 0.0, Basophils # (Auto) 0.1, Immature Granulocyte # (Auto) 1.4H, Sodium Level 146H, Potassium Level 4.3, Chloride Level 115H, Carbon Dioxide Level 22, Anion Gap 9, Blood Urea Nitrogen 61H, Creatinine 1.22, Estimat Glomerular Filtration Rate 43, BUN/Creatinine Ratio 50, Glucose Level 155H, Calcium Level 7.8L, Phosphorus Level 4.4, Magnesium Level 2.3 11/19/20 03:30: Blood Gas Puncture Site RIGHT RADIAL, Blood Gas Patient Temperature 36.4, Arterial Blood pH 7.37, Arterial Blood Partial Pressure CO2 41, Arterial Blood Partial Pressure O2 68L, Arterial Blood HCO3 23, Arterial Blood Total CO2 24.3, Arterial Blood Oxygen Saturation 99, Arterial Blood Base Excess -1.6, Adi Test YES-POS, Blood Gas Ventilator Setting NO, Blood Gas Inspired Oxygen 35% 11/19/20 12:32: Glucometer 198H Microbiology 11/16/20 MRSA Screen - Final, Complete MRSA not isolated 11/15/20 Gram Stain - Final, Resulted 11/15/20 Anaerobic Culture - Final, Resulted No anaerobes isolated 11/15/20 Surgical Culture - Preliminary, Resulted Bobbi glabrata Bobbi species 11/15/20 Fungal Culture 1 - Preliminary, Resulted Bobbi glabrata Bobbi species Assessment/Plan Assessment/Plan Assess & Plan/Chief Complaint s/p extended right hemicolectomy, end ileostomy, mucous fistula, revision ileostomy, drainage intraabd abscess and VAC placement. will change vac 5 days. start a carbapenem. cont TPN and NGT transfuse PRBC Clinical Quality Measures DVT/VTE Risk/Contraindication: Risk Factor Score Per Nursin MICHAEL XIONG MD Nov 19, 2020 12:51
--- NOTE | 2020-11-19 14:40 | Occupational Therapy Eval ---
OT Evaluation-General/PLF Medical Diagnosis Admission Date Nov 15, 2020 at 12:25 Medical Diagnosis: colon cancer Onset Date: Nov 15, 2020 Therapy Diagnosis Therapy Diagnosis: Weakness, Decreased ADL skills Precautions Precautions/Isolations: Aspiration, Fall Prevention, Standard Precautions, Pressure Ulcer Referral Physician: Candy Referral Reason: Activity Tolerance, Self Care, Evaluation/Treatment, Strengthening/ROM Medical History Pertinent Medical History: COPD, HTN Additional Medical History Pt. currently with colon cancer. Pt. has had multiple surgeries and lengthy hospital stay. Recently, pt. on ARU for strengthening, and become progressively worse. Transferred to medical floor and underwent surgery for Ileus. Pt. on ventilator support and extubated yesterday. Reviewed History: Yes Social History Home: Single Level Current Living Status: Other Family ADL-Prior Level of Function SCALE: Activities may be completed with or without assistive devices. 3-Qavotogwhb-gmghcne completes the activity by him/herself with no assistance from a helper. 5-Set-up or Clean-up Assistance-helper sets up or cleans up; patient completes activity. [place] assists only prior to or following the activity. 4-Supervision or Touching Assistance-helper provides verbal cues and/or touching/steadying and/or contact guard assistance as patient completes activity. Assistance may be provided throughout the activity or intermittently. 3-Partial/Moderate Assistance-helper does LESS THAN HALF the effort. [place] lifts, holds or supports trunk or limbs, but provides less than half the effort. 2-Substantial/Maximal Assistance-helper does MORE THAN HALF the effort. [place] lifts or holds trunk or limbs and provides more than half the effort. 5-Hlfilbgdt-garacs does ALL the effort. Patient does none of the effort to complete the activity. Or, the assistance of 2 or more helpers is required for the patient to complete the activity. If activity was not attempted, code reason: 7-Patient Refused. 9-Not Applicable-not attempted and the patient did not perform the activity before the current illness, exacerbation or injury. 10-Not Attempted due to Environmental Limitations-(lack of equipment, weather restraints, etc.). 88-Not Attempted due to Medical Conditions or Safety Concerns. ADL PLOF Comments Pt. was independent with daily tasks previous to this hospitalization. Self Care: Independent Functional Cognition: Independent OT Current Status Subjective Pt. is unable to state pain level. Very groggy and confused. Mental Status/Objective Patient Orientation: Confused Attachments: Lam Catheter, IV, Oxygen Current Glasses/Contacts: Yes Pt. is able to squeeze OT's hand. Demonstrates adequate hand strength. Pt. able to follow cues and lift bilateral UE, one at a time very slowly. Demonstrates WFL ROM. ADL-Treatment Eating (QC): 1 (Pt. unable to have anything besides ice chips, as she has pulled out her NG tube per nursing. She is unable to feed herself these.) On/Off Footwear (QC): 1 (Per clinical judgement.) Toileting Hygiene (QC): 1 (Pt. has catheter and colostomy.) Pt. in bed. Nursing in room and okay for OT to attempt treatment. OT is given cup of ice chips per nursing to give to pt. OT prompts pt. to see if she can hold the cup herself. She can't, and so a chip is placed in her mouth. Her head is elevated in bed. Pt. handles ice fine and is asked if she would like more. She states, "for how long?" Pt. is given several more pieces of ice, and each time she asks this. OT attempts to answer to best of ability. Pt. is then handed cup. She closes her eyes but puts the spoon in the cup to get more ice. She brings it out of cup, but is unable to bring to her mouth. OT rubs hands and pt. is able to state that she is in the hospital. She is able to follow simple one step commands at times, but otherwise is groggy and confused. OT brushes pt's hair, and performs gentle PROM to bilateral hands, wrists, elbows. Pt. falls asleep. All needs are met. Nursing notified OT leaving room. Education OT Patient Education: Correct positioning, Modified ADL techniques, Progress toward Goal/Update tx plan, Purpose of tx/functional activities, Reviewed precautions, Rehab process Teaching Recipient: Patient Teaching Methods: Demonstration, Discussion Response to Teaching: Reinforcement Needed OT Short Term Goals Short Term Goals Time Frame: Dec 03, 2020 Eatin Oral hygiene: 3 Toileting hygiene: 3 Shower/bathe self: 3 Upper body dressin Lower body dressin Putting on/taking off footwear: 3 OT Correction Goals Correction Goals Time Frame: Dec 17, 2020 Eating (QC): 6 Oral Hygiene (QC): 6 Toileting Hygiene (QC): 6 Shower/Bathe Self (QC): 4 Upper Body Dressing (QC): 5 Lower Body Dressing (QC): 4 On/Off Footwear (QC): 4 Additional Goals: 1-Demonstrate ADL Tasks, 2-Verbalize Understanding, 3- ImproveStrength/Palak 1=Demonstrate adherence to instructed precautions during ADL tasks. 2=Patient will verbalize/demonstrate understanding of assistive devices/modifications for ADL. 3=Patient will improve strength/tolerance for activity to enable patient to perform ADL's. OT Education/Plan Problem List/Assessment Assessment: Decreased Activ Tolerance, Decreased UE Strength, Dependent Transfers, Impaired Bed Mobility, Impaired Cognition, Impaired Funct Balance, Impaired I ADL's, Impaired Self-Care Skills Discharge Recommendations Plan/Recommendations: Continue POC Therapy Discharge Recommendati: Post Acute OT Treatment Plan/Plan of Care Treatment,Training & Education: Yes Patient would benefit from OT for education, treatment and training to promote independence in ADL's, mobility, safety and/or upper extremity function for ADL's. Plan of Care: ADL Retraining, Functional Mobility, UE Funct Exercise/Act Treatment Duration: Dec 17, 2020 Frequency: 5 times per week Estimated Hrs Per Day: .25 hour per day Agreement: Yes Rehab Potential: Guarded Time/GCodes Start Time: 13:45 Stop Time: 13:55 Total Time Billed (hr/min): 10 Billed Treatment Time 1, KOKI FAROOQ OT Nov 19, 2020 14:40
[2020-11-19] MEDS ORDERED: [UNRECOGNIZED DRUG - OTHER] IV SCH ×10 (17:00)
[2020-11-19] MEDS ORDERED: SODIUM ACETATE IV SCH ×10 (17:00)
[2020-11-19] MEDS ORDERED: POTASSIUM ACETATE IV SCH ×10 (17:00)
[2020-11-19] MEDS ORDERED: SODIUM PHOSPHATE IV SCH ×10 (17:00)
[2020-11-19] MEDS: ENOXAPARIN 40 MG/0.4 ML (LOVENOX) SYR SC SCH (20:48)
[2020-11-20] MEDS: inSUlin ASPART (NovoLOG) 1 UNIT/0.01 ML (CHARGE PER UNIT) SQ SCH ×4 (00:02→17:48)
[2020-11-20] MEDS: METOCLOPRAMIDE INJ 10 MG/2 ML (REGLAN) IVP SCH ×5 (00:02→23:53)
[2020-11-20] MEDS: meTOprolol 5 MG/5 ML (LOPRESSOR) VIAL IV SCH ×6 (00:02→23:53)
[2020-11-20 02:02] LABS: BASOPHILS % (AUTO) 0 % (0-10); EOSINOPHILS % (AUTO) 0 % (0-10); HEMATOCRIT 22 % (35-52); HEMOGLOBIN 7.3 g/dL (11.5-16.0); LYMPHOCYTES # (AUTO) 0.7 10^3/uL (1.0-4.0); LYMPHOCYTES % (AUTO) 5 % (12-44); MEAN CORPUSCULAR HEMOGLOBIN 30 pg (25-34); MEAN CORPUSCULAR HGB CONC 33 g/dL (32-36); MEAN CORPUSCULAR VOLUME 93 fL (80-99); MEAN PLATELET VOLUME 10.3 fL (9.0-12.2); MONOCYTES # (AUTO) 0.8 10^3/uL (0.0-1.0); MONOCYTES % (AUTO) 5 % (0-12); NEUTROPHILS # (AUTO) 12.5 10^3/uL (1.8-7.8); NEUTROPHILS % (AUTO) 81 % (42-75); PLATELET COUNT 296 10^3/uL (130-400); WHITE BLOOD COUNT 15.5 10^3/uL (4.3-11.0)
[2020-11-20 02:12] LABS: POTASSIUM 4.3 MMOL/L (3.6-5.0)
[2020-11-20 02:20] LABS: MAGNESIUM 2.4 MG/DL (1.6-2.4)
[2020-11-20 02:40] LABS: BAND NEUTROPHILS 8 %; LYMPHOCYTES % (MANUAL) 6 %; MONOCYTES % (MANUAL) 4 %; NEUTROPHILS % (MANUAL) 82 %
[2020-11-20 02:41] LABS: RBC MORPH NORMAL
[2020-11-20] MEDS: MEROPENEM 500 MG in WATER (STERILE) FOR INJECTION 10 ML IV SCH ×3 (03:27→19:54)
[2020-11-20] MEDS: fentaNYL INJECTION 100 MCG/2 ML AMP IVP PRN ×4 (03:47→23:53)
[2020-11-20] MEDS ORDERED: D5W 1000 ML IV SOLUTION 1,000 ML ONE (04:53)
--- NOTE | 2020-11-20 04:53 | Pulmonary Progress Note ---
Subjective Time Seen by a Provider: 04:48 Subjective/Events-last exam No complications noted. Sepsis Event Evaluation Height, Weight, BMI Height: '" Weight: lbs. oz. kg; 34.48 BMI Method: Exam Exam Vital Signs Date Time Temp Pulse Resp B/P (MAP) Pulse Ox O2 Delivery O2 Flow Rate FiO2 11/20/20 04:00 96 14 90 High Flow N/C 4.00 11/20/20 03:00 92 27 90 High Flow N/C 4.00 11/20/20 02:00 92 11 96 High Flow N/C 4.00 11/20/20 01:00 105 95 High Flow N/C 4.00 11/20/20 01:00 105 11/20/20 00:00 105 27 95 High Flow N/C 4.00 11/19/20 23:00 110 32 93 High Flow N/C 4.00 11/19/20 22:00 101 12 93 High Flow N/C 4.00 11/19/20 21:00 93 Nasal Cannula 2.00 11/19/20 21:00 95 13 95 High Flow N/C 4.00 11/19/20 20:00 92 10 95 High Flow N/C 4.00 11/19/20 19:00 93 13 95 High Flow N/C 4.00 11/19/20 19:00 93 11/19/20 18:33 93 High Flow N/C 2.00 11/19/20 18:00 101 23 95 High Flow N/C 4.00 11/19/20 17:00 98 10 95 High Flow N/C 4.00 11/19/20 16:22 37.0 11/19/20 16:00 98 20 97 High Flow N/C 4.00 11/19/20 15:09 96 High Flow N/C 2.00 11/19/20 15:00 106 17 94 High Flow N/C 4.00 11/19/20 14:37 90 High Flow N/C 2.00 11/19/20 14:00 99 13 94 High Flow N/C 4.00 11/19/20 13:15 109 11/19/20 13:00 100 19 96 High Flow N/C 4.00 11/19/20 12:00 111 13 85 High Flow N/C 4.00 11/19/20 11:09 95 Vapotherm 15.00 35 11/19/20 11:00 105 7 93 Vapotherm 40.00 35.00 11/19/20 10:00 114 17 92 Vapotherm 40.00 35.00 11/19/20 09:00 111 24 92 Vapotherm 40.00 35.00 11/19/20 08:45 36.0 11/19/20 08:00 97 Vapotherm 40.00 35 11/19/20 08:00 101 6 97 Vapotherm 40.00 35.00 11/19/20 07:51 97 Vapotherm 40.00 35 11/19/20 07:00 101 20 96 Vapotherm 40.00 35.00 11/19/20 06:47 104 11/19/20 06:00 101 27 94 Vapotherm 40.00 35.00 11/19/20 05:00 93 14 94 Vapotherm 40.00 35.00 11/19/20 04:49 36.4 Vapotherm 40.00 35.00 I & O 11/20/20 07:00 Intake Total 992.1667 ml Output Total 2037 ml Balance -1044.8333 ml Height & Weight Height: '" Weight: lbs. oz. kg; 34.48 BMI Method: General Appearance: No Apparent Distress, WD/WN HEENT: PERRL/EOMI Neck: Full Range of Motion, Normal Inspection Respiratory: Decreased Breath Sounds Cardiovascular: No JVD, Normal Peripheral Pulses, Tachycardia (101 bpm) Gastrointestinal: soft, tenderness Extremity: Normal Capillary Refill Neurologic/Psychiatric: Alert Skin: Normal Color Lymphatic: No Adenopathy Results Lab Laboratory Tests 11/19/20 02:28 11/20/20 01:45 Assessment/Plan Assessment/Plan Acute respiratory failure s/p surgery - now improved -Pt was admitted on 10/31 for hemicolectomy. Now s/p 3 different surgeries secondary to complications -S/p Extubation S/p multiple surgeries last surgery was 11/15 s/p revision of iliostomy/hemicolectomy with colostomy -Plan is to go back to surgery today to change out wound vacc Sepsis with abdominal abscess - Merrem,and Eraxis -Currently on TPN per surgery Hypernatremia -Will have pharmacy decrease Na in TPN -Start D5W at 100 and monitor BS HTN -Vasotec Anemia -monitor S/p hemicolectomy secondary to Colon cancer then ileostomy secondary to torsion. then repeat surgery secondary to persistent intraabdominal sepsis. Debility HX of COPD with oxygen dependance at home Tobacco dependance anemia s/p 4 units of PRBC GIOVANNA BORREGO DO Nov 20, 2020 04:53
[2020-11-20] MEDS: HYDROmorphone 2 MG/ML VIAL (DILAUDID) IV PRN ×3 (05:01→20:17)
[2020-11-20] MEDS: D5W 1000 ML IV SOLUTION 1,000 ML IV SCH ×3 (05:01→17:38)
[2020-11-20] MEDS: RT-ALBUTEROL/IPRATROPIUM 3 ML (DUONEB) VIAL INH SCH ×3 (07:27→23:04)
--- NOTE | 2020-11-20 08:49 | Diagnostic Imaging Report ---
INDICATION: Respiratory distress. FINDINGS: OG catheter has been removed. Air trapping and COPD are chronic. Some infiltrate or atelectasis in the medial left lung base unchanged. IMPRESSION: Patchy infiltrate or atelectasis in medial left lung base unchanged. Dictated by: Dictated on workstation # [id number]
--- NOTE | 2020-11-20 08:57 | Physical Therapy Daily Note ---
PT Daily Note-Current Subjective Patient in bed pre tx, she is confused, mumbling and cant understand her. Appearance Patient in bed post tx with nurse call, phone, tray, all needs met. Mental Status Patient Orientation: Confused Attachments: Oxygen, Lam Catheter, IV Transfers SCALE: Activities may be completed with or without assistive devices. 2-Klvncwinru-cqlrioz completes the activity by him/herself with no assistance from a helper. 5-Set-up or Clean-up Assistance-helper sets up or cleans up; patient completes activity. [place] assists only prior to or following the activity. 4-Supervision or Touching Assistance-helper provides verbal cues and/or touching/steadying and/or contact guard assistance as patient completes activity. Assistance may be provided throughout the activity or intermittently. 3-Partial/Moderate Assistance-helper does LESS THAN HALF the effort. [place] lifts, holds or supports trunk or limbs, but provides less than half the effort. 2-Substantial/Maximal Assistance-helper does MORE THAN HALF the effort. [place] lifts or holds trunk or limbs and provides more than half the effort. 1-Kxxecbprn-qadqkj does ALL the effort. Patient does none of the effort to complete the activity. Or, the assistance of 2 or more helpers is required for the patient to complete the activity. If activity was not attempted, code reason: 7-Patient Refused. 9-Not Applicable-not attempted and the patient did not perform the activity before the current illness, exacerbation or injury. 10-Not Attempted due to Environmental Limitations-(lack of equipment, weather restraints, etc.). 88-Not Attempted due to Medical Conditions or Safety Concerns. Roll Left & Right (QC): 1 assisted with positioning in bed Exercises Supine Ex: Ankle pumps, Heel Slides, Straight leg raise, Hip abd/add Supine Reps: 20 patient assisted some with exercises but mostly it was PROM Treatments LE ROM Assessment Current Status: Poor Progress patient confused, assisted a little with LE ROM PT Short Term Goals Short Term Goals Time Frame: Dec 07, 2020 Roll Left & Right: 3 Sit to lyin Lying to sitting on side of be: 3 Sit to stand: 3 Chair/kam-xk-ifyys transfer: 3 PT Motor Coach Tour Operator Goals Motor Coach Tour Operator Goals PT Shelter Goals Time Frame: Dec 21, 2020 Roll Left & Right (QC): 5 Sit to Lying (QC): 5 Lying-Sitting on Side/Bed(QC): 5 Sit to Stand (QC): 5 Chair/Avt-ot-Eidyq Xfer(QC): 5 Toilet Transfer (QC): 5 Does the Patient Walk: No and Walking Goal IS indicated Walk 10 feet (QC): 3 Walk 50ft with 2 Turns (QC): 3 PT Plan Problem List Problem List: Activity Tolerance, Functional Strength, Safety, Balance, Gait, Transfer, Bed Mobility, ROM Treatment/Plan Treatment Plan: Continue Plan of Care Treatment Plan: Bed Mobility, Education, Functional Activity [place], Functional Strength, Gait, Safety, Therapeutic Exercise, Transfers Treatment Duration: Dec 21, 2020 Frequency: 5 times per week Estimated Hrs Per Day: .25 hour per day (.25-.5) Safety Risks/Education Patient Education: Correct Positioning, Safety Issues Teaching Recipient: Patient Teaching Methods: Demonstration, Discussion Response to Teaching: Reinforcement Needed Time/GCodes Time In: 0837 Time Out: 0847 Total Billed Treatment Time: 10 Total Billed Treatment 1 visit EX 10' RAMOS POLLOCK PT Nov 20, 2020 08:57
[2020-11-20] MEDS: PANTOPRAZOLE 40 MG (PROTONIX) VIAL IV SCH (09:04)
[2020-11-20] MEDS: NICOTINE 14 MG (NICODERM) PATCH TD SCH (09:04)
[2020-11-20] MEDS: meTOproloL SUCCINATE 50 MG (TOPROL XL) TAB PO SCH (09:04)
[2020-11-20] MEDS: NICOTINE PATCH REMOVAL TP SCH (09:05)
[2020-11-20] MEDS: ENALAPRILAT 2.5 MG/2 ML (VASOTEC) VIAL IV SCH ×2 (09:05→21:30)
[2020-11-20] MEDS: ANIDULAFUNGIN INJECTION 100 MG in NS (IVPB) 100 ML IV SCH (09:05)
[2020-11-20] MEDS ORDERED: D5W 1000 ML IV SOLUTION 1,000 ML IV SCH ×2 (11:15→17:00)
[2020-11-20] MEDS: FENTANYL PATCH REMOVAL TP SCH (11:18)
[2020-11-20] MEDS: fentaNYL PATCH 25 MCG (DURAGESIC) TD SCH (11:18)
--- NOTE | 2020-11-20 11:18 | Progress Note - Hospitalist ---
MADI HAYWARD MED STUDENT 11/20/20 1117: Subjective HPI/CC On Admission Date Seen by Provider: Nov 20, 2020 Time Seen by Provider: 08:50 CC: VDRF following surgery for abscess and ileostomy ischemia HPI: This is a 75yoWF clinic patient of Dr Ba who presents to the ICU following urgent surgery following failure on IRF due to sepsis and elevated wbc. Patient was assessed to have ileostomy ischemia and abscess. Patient is currently on Cipro, Flagyl, Vanc, Kinga and Diflucan. Patient has a h/o colon ca ncer s/p resection 2 weeks ago and I was consulted for AECOPD due to long smoking hx and severe anemia s/p transfusion and resolution of hyponatremia. She had a complication of torsion requiring diverting ileostomy and she became strong enough to go to IRF but only lasted 2 days before she decompensated. Currently she remains intubated and critically ill. Subjective/Events-last exam Pt resting comfortably upon entry States abdominal pain 10/10 Reports shortness of breath on 4L NC at 93% Hypotensive 94/48 Wound vac clogged by gelatinous material - sent to cytology as possible carcinomatosis WBC continues to trend downward 15.5k Hgb dropped today 7.3 (8.2) Objective Exam Vital Signs Vital Signs Date Time Temp Pulse Resp B/P (MAP) Pulse Ox O2 Delivery O2 Flow Rate FiO2 11/20/20 11:11 36.6 11/20/20 09:00 102 14 96 High Flow N/C 4.00 11/19/20 11:09 35 Capillary Refill : General Appearance: No Apparent Distress, Chronically ill Respiratory: No Accessory Muscle Use, No Respiratory Distress, Decreased Breath Sounds Cardiovascular: Regular Rate, Rhythm, Normal Peripheral Pulses, Tachycardia Extremity: Normal Capillary Refill, Non Tender, Pedal Edema (2+ bilaterally) Neurologic/Psychiatric: Alert, Normal Mood/Affect Skin: Warm/Dry, Pallor Lymphatic: No Adenopathy Results/Procedures Lab Laboratory Tests 11/20/20 01:45 Patient resulted labs reviewed. 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-Dr Lynch COPD O2 dependence at home HTN Smoker Hypernatremia Anemia s/p 3 units of blood on med-surg floor Ileus 11/14/20 Plan: IV abx Vent EICU Prognosis guarded 11/17/20: Abx Vent Monitor hgb closely 11/18/20 ABx Monitor hgb Continue TPN and NGT Supportive care 11/19/20 Continue TPN and NGT Monitor BP and hgb Abx Supportive care 11/20/20 Abx TPN and NGT Change TPN to contain less NA Monitor closely Clinical Quality Measures DVT/VTE Risk/Contraindication: Risk Factor Score Per Nursin WILFREDO MARTÍNEZ DO 11/21/20 0521: Subjective Subjective/Events-last exam Pt very sleepy Being taken to the OR to change her wound vac Maybe carcinomatosis, it does appear to be very suspicious for that so that was sent to pathology Objective Exam General Appearance: No Apparent Distress, WD/WN, Chronically ill Respiratory: Decreased Breath Sounds Cardiovascular: Regular Rate, Rhythm Assessment/Plan Assessment and Plan Assess & Plan/Chief Complaint OR for wound vac change Prognosis getting more and more poor Supervisory-Addendum Brief Verification & Attestation Participated in pt care: history, MDM, physical Personally performed: exam, history, MDM, supervision of care Care discussed with: Medical Student Procedures: n/a Results interpretation: Verified all documentation Verification and Attestation of Medical Student E/M Service A medical student performed and documented this service in my presence. I reviewed and verified all information documented by the medical student and made modifications to such information, when appropriate. I personally performed the physical exam and medical decision making. Wilfredo Martínez, Nov 21, 2020,05:20 MADI HAYWARD MED STUDENT Nov 20, 2020 11:17 WILFREDO MARTÍNEZ DO Nov 21, 2020 05:21
--- NOTE | 2020-11-20 12:22 | Progress Note-Pre Operative ---
Pre-Operative Progress Note H&P Reviewed The H&P was reviewed, patient examined and no changes noted. 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
[2020-11-20] MEDS ORDERED: MIDAZOLAM 2 MG/2 ML (VERSED) VIAL ONE (12:50)
[2020-11-20] MEDS ORDERED: fentaNYL INJECTION 100 MCG/2 ML AMP ONE (12:50)
[2020-11-20] MEDS ORDERED: PROPOFOL INJECTION 50 ML IV ONE (12:51)
--- NOTE | 2020-11-20 12:55 | Occupational Ther Daily Note ---
OT Current Status-Daily Note Subjective Pt lying in bed. Initially pt's eyes closed, when saying name pt opened eyes and acknowledge LOGAN. Pt agrees to therapy. Pt stated that she hurt all over and wanted pain meds. Reported to [facility] tech. Mental Status/Objective Patient Orientation: Person, Unable to Assess Attachments: Colostomy/Ileostomy, Drains, Lam Catheter, IV, Oxygen, Telemetry ADL-Treatment Therapy Code Descriptions/Definitions Functional [place] Measure: 0=Not Assessed/NA 4=Minimal Assistance 1=Total Assistance 5=Supervision or Setup 2=Maximal Assistance 6=Modified [place] 3=Moderate Assistance 7=Complete IndependenceSCALE: Activities may be completed with or without assistive devices. 6-Brizqlgwoe-efdjekh completes the activity by him/herself with no assistance from a helper. 5-Set-up or Clean-up Assistance-helper sets up or cleans up; patient completes activity. [place] assists only prior to or following the activity. 4-Supervision or Touching Assistance-helper provides verbal cues and/or touching/steadying and/or contact guard assistance as patient completes activity. Assistance may be provided throughout the activity or intermittently. 3-Partial/Moderate Assistance-helper does LESS THAN HALF the effort. [place] lifts, holds or supports trunk or limbs, but provides less than half the effort. 2-Substantial/Maximal Assistance-helper does MORE THAN HALF the effort. [place] lifts or holds trunk or limbs and provides more than half the effort. 7-Xyrcqqmni-zuwpey does ALL the effort. Patient does none of the effort to complete the activity. Or, the assistance of 2 or more helpers is required for the patient to complete the activity. If activity was not attempted, code reason: 7-Patient Refused. 9-Not Applicable-not attempted and the patient did not perform the activity before the current illness, exacerbation or injury. 10-Not Attempted due to Environmental Limitations-(lack of equipment, weather restraints, etc.). 88-Not Attempted due to Medical Conditions or Safety Concerns. Other Treatment Pt held onto LOGAN's hand while 3 AROM completed in all planes. Pt able to complete WFL shldr and elbow though made known she wanted to hold onto LOGAN's hand while completing each one. After session, pt lying in bed with call light/phone in reach. All needs met in room. OT Short Term Goals Short Term Goals Time Frame: Dec 03, 2020 Eatin Oral hygiene: 3 Toileting hygiene: 3 Shower/bathe self: 3 Upper body dressin Lower body dressin Putting on/taking off footwear: 3 OT Fdc Goals Wardrobe Technician Goals Time Frame: Dec 17, 2020 Eating (QC): 6 Oral Hygiene (QC): 6 Toileting Hygiene (QC): 6 Shower/Bathe Self (QC): 4 Upper Body Dressing (QC): 5 Lower Body Dressing (QC): 4 On/Off Footwear (QC): 4 Additional Goals: 1-Demonstrate ADL Tasks, 2-Verbalize Understanding, 3- ImproveStrength/[place] 1=Demonstrate adherence to instructed precautions during ADL tasks. 2=Patient will verbalize/demonstrate understanding of assistive devices/modifications for ADL. 3=Patient will improve strength/tolerance for activity to enable patient to perform ADL's. OT Education/Plan Problem List/Assessment Assessment: Decreased Activ Tolerance, Decreased Safety Aware, Decreased UE Strength, Dependent Transfers, Impaired Bed Mobility, Impaired Cognition, Impaired Coordination, Impaired Funct Balance, Impaired I ADL's, Impaired Self- Care Skills Discharge Recommendations Plan/Recommendations: Continue POC Treatment Plan/Plan of Care Patient would benefit from OT for education, treatment and training to promote independence in ADL's, mobility, safety and/or upper extremity function for ADL's. Plan of Care: ADL Retraining, Functional Mobility, UE Funct Exercise/Act Treatment Duration: Dec 17, 2020 Frequency: 5 times per week Estimated Hrs Per Day: .25 hour per day Agreement: Yes Rehab Potential: Guarded Time/GCodes Start Time: 10:47 Stop Time: 11:59 Total Time Billed (hr/min): 12 Billed Treatment Time 1 visit-EX 1 (12 min) RAIZA BROWNING Nov 20, 2020 12:55
[2020-11-20] MEDS ORDERED: KETAMINE/NaCl 50 MG/5 ML SYRINGE (ED ONLY) ONE (13:19)
[2020-11-20] MEDS ORDERED: PHENYLEPHRINE 100 MCG/ML 10 ML (ANESTHESIA) SYR ONE (13:42)
[2020-11-20] MEDS ORDERED: LACTATED RINGERS 1,000 ML IV PRN (13:45)
--- NOTE | 2020-11-20 14:11 | Progress Note-Post Operative ---
Post-Operative Progess Note Surgeon (s)/Assistant Women'S Tennis Coach (s) Surgeon MICHAEL XIONG MD Assistant Women'S Tennis Coach: none Pre-Operative Diagnosis transverse colon ca with wound dehiscence Post-Operative Diagnosis same Procedure & Operative Findings Date of Procedure 11/20/20 Procedure Performed/Findings reopen recent laparotomy, debridement subcutaneous and fascia (10x2cm), placement ab-thera wound vac Anesthesia Type MAC Estimated Blood Loss Estimated blood loss (mL): minimal Specimens/Packing Specimens Removed intraperitoneal drainage. MICHAEL XIONG MD Nov 20, 2020 14:11
[2020-11-20 14:20] VITALS: BP 139/51
--- NOTE | 2020-11-20 14:29 | Anesthesia-General Post-Op ---
MAC Patient Condition Mental Status/LOC: Same as Preop Cardiovascular: Satisfactory Nausea/Vomiting: Absent Respiratory: Satisfactory Pain: Controlled Complications: Absent Post Op Complications Complications None Follow Up Care/Instructions Patient Instructions None needed. Anesthesiology Discharge Order Discharge Order Patient is doing well, no complaints, stable vital signs, no apparent adverse anesthesia problems. No complications reported per nursing. SAMANTHA KILGORE CRNA Nov 20, 2020 14:29
[2020-11-20 14:30] VITALS: BP 150/59
[2020-11-20] MEDS ORDERED: LIDOCAINE/EPI 1%-1:200,000 (XYLOCAINE) 10 ML VIAL ONE (14:30)
[2020-11-20 14:40] VITALS: BP 139/57
[2020-11-20 14:50] VITALS: BP 140/57
--- NOTE | 2020-11-20 17:02 | Cardiology Progress Note ---
Subjective Date Seen by Provider: Nov 20, 2020 Time Seen by Provider: 11:00 Subjective/Events-last exam Patient was seen at the side, laying down comfortably, less dyspneic Objective-Cardiology Exam Last Set of Vital Signs Vital Signs 11/19/20 11/20/20 11/20/20 11/20/20 11:09 15:00 15:20 16:15 Temp 36.6 Pulse 96 Resp 18 Pulse Ox 96 O2 Delivery Nasal Cannula O2 Flow Rate 2.00 FiO2 35 Capillary Refill : Less Than 3 Seconds I&O Intake and Output 11/20/20 00:00 Intake Total 1991.1667 ml Output Total 2832 ml Balance -839.8333 ml Intake Oral 0 ml IV Total 1991.1667 ml Output Urine Total 1950 ml Stool Total 5 ml Gastric Drainage Total 375 ml Drainage Total 502 ml General: Alert, Oriented X3, Cooperative HEENT: Atraumatic, PERRLA Neck: Supple, No JVD, No Thyromegaly Lungs: Normal Air Movement, Other (bilateral rhonchi) Heart: Normal S1, Normal S2, No Murmurs, Other (sinus tachycardia) Extremities: No Clubbing, No Cyanosis, No Edema, Normal Pulses, No Tenderness/Swelling Skin: No Rashes, No Breakdown, No Significant Lesion Neuro: Normal Speech Results Lab Laboratory Tests 11/20/20 01:45 A/P-Cardiology Admission Diagnosis Acute respiratory failure Sinus tachycardia Hypertension Hyperlipidemia Assessment/Plan status post acute respiratory failure, extubated on November 18, 2020, improving slowly. Still having some shortness of breath, Managed by primary care team Status post extended right hemicolectomy and ileostomy revision for ileostomy, still having abdominal distention and poor bowel sounds, maintained on NG suction COPD, followed and managed by primary care physician Sinus tachycardia, secondary to hypoxia, and anemia, started on low-dose beta blockers. Continue to monitor Hypertension, monitor blood pressure Hyperlipidemia monitor lipids Clinical Quality Measures DVT/VTE Risk/Contraindication: Risk Factor Score Per Nursin MAYUR CANNON MD Nov 20, 2020 5:02 pm
[2020-11-20] MEDS: POTASSIUM ACETATE IV SCH ×10 (17:38)
[2020-11-20] MEDS: POTASSIUM PHOSPHATE IV SCH ×10 (17:38)
[2020-11-20] MEDS: [UNRECOGNIZED DRUG - OTHER] IV SCH ×10 (17:38)
[2020-11-20] MEDS: HALOPERIDOL 5 MG/ML (HALDOL) VIAL IM PRN (20:17)
--- NOTE | 2020-11-20 20:33 | OPERATIVE REPORT ---
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 PROCEDURE: Reopening recent laparotomy, debridement of subcutaneous tissue and fascia, 10 x 2 cm in dimension, placement of ABThera wound VAC intraperitoneal washings for biopsy. SURGEON: Michael Xiong MD ANESTHESIA: Monitored anesthesia care. ESTIMATED BLOOD LOSS: Minimal. 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 DISPOSITION: The patient tolerated the procedure well. INDICATIONS: The patient is a 75-year-old female, who was found to have a large hypermetabolic mass involving the transverse colon on a PET scan. She was found to be hyponatremic and underwent a CT scan and was found to have a right lower lobe nodule as well as a right renal lesion, which were of indeterminate significance. She had had a colonoscopy before; however, it was greater than 30 years ago. She underwent a colonoscopy on 10/02/2010 and was found to have a near obstructing transverse colonic lesion, which was biopsied and submucosally injected and the pathology came back as adenocarcinoma. On 10/31/2020, she underwent an attempted laparoscopic extended right hemicolectomy; however, this was converted to open. She then underwent an ileocolonic anastomosis. She did well postoperatively with adequate pain control and stable vital signs; however, did not develop any significant bowel function, developed abdominal distention for 7 days postoperatively. A nasogastric tube was placed and she then also underwent a Gastrografin small bowel follow through, which did not show any contrast within the colon within 10 hours. On 11/10/2020 when she underwent reopening of recent laparotomy, resection of ileocolonic anastomosis as well as an end ileostomy and mucous fistula placement. She again did well postoperatively and did not have any fever, no chills. Did have a small amount of ileostomy output and was transferred to acute inpatient rehabilitation; however, again developed abdominal distention as well as a significant leukocytosis. On 11/15/2020, she underwent reopening of recent laparotomy, revision end ileostomy as well as placement of abdominal wound VAC for a complete wound dehiscence as well as an intra-abdominal abscess. She is now here for a wound VAC change and reexploration. DESCRIPTION OF PROCEDURE: The patient was brought to the operating room, laid supine on the table. After adequate IV pain and sedative medications and monitored anesthesia care, the abdomen was prepped and draped in standard surgical fashion. The previous wound VAC was then removed where there was a rim of necrotic debris along the subcutaneous tissue as well as the fascia, which was sharply debrided using Metzenbaum scissors with visualization of good hemostasis. 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 This was suctioned out and sent for cytology. We then proceeded with 4-quadrant irrigation. There was no ischemic bowel identified. The ABThera intraperitoneal portion of the wound VAC was then cut to the appropriate size and placed in the peritoneal cavity. The sponge was then placed over top, followed by a large pore black sponge followed by the sealant and then placement of the wound VAC to suction with a good seal identified. The patient tolerated the procedure well. We will continue with current therapies as well as treatments and proceed with another exploration and wound VAC change in approximately 5 days. Job ID: [id number] DocumentID: [id number] Dictated Date: 11/20/2020 14:18:33 Occupational Therapy Department Chair Date: 11/20/2020 20:32:43 Dictated By: MICHAEL XIONG MD
[2020-11-20] MEDS: ENOXAPARIN 40 MG/0.4 ML (LOVENOX) SYR SC SCH (21:29)
[2020-11-21] MEDS: inSUlin ASPART (NovoLOG) 1 UNIT/0.01 ML (CHARGE PER UNIT) SQ SCH ×5 (01:52→23:49)
[2020-11-21] MEDS: HYDROmorphone 2 MG/ML VIAL (DILAUDID) IV PRN ×4 (02:00→21:49)
[2020-11-21 02:44] LABS: BASOPHILS % (AUTO) 0 % (0-10); EOSINOPHILS % (AUTO) 0 % (0-10); HEMATOCRIT 23 % (35-52); HEMOGLOBIN 7.3 g/dL (11.5-16.0); LYMPHOCYTES # (AUTO) 0.7 10^3/uL (1.0-4.0); LYMPHOCYTES % (AUTO) 6 % (12-44); MEAN CORPUSCULAR HEMOGLOBIN 30 pg (25-34); MEAN CORPUSCULAR HGB CONC 32 g/dL (32-36); MEAN CORPUSCULAR VOLUME 95 fL (80-99); MEAN PLATELET VOLUME 10.3 fL (9.0-12.2); MONOCYTES # (AUTO) 0.7 10^3/uL (0.0-1.0); MONOCYTES % (AUTO) 7 % (0-12); NEUTROPHILS % (AUTO) 80 % (42-75); PLATELET COUNT 270 10^3/uL (130-400); WHITE BLOOD COUNT 11.2 10^3/uL (4.3-11.0)
[2020-11-21 03:03] LABS: CALCIUM 8.1 MG/DL (8.5-10.1); CREATININE SERUM 0.95 MG/DL (0.60-1.30); PHOSPHORUS 4.1 MG/DL (2.3-4.7); POTASSIUM 4.4 MMOL/L (3.6-5.0)
[2020-11-21] MEDS: MEROPENEM 500 MG in WATER (STERILE) FOR INJECTION 10 ML IV SCH ×3 (03:23→18:41)
[2020-11-21] MEDS: HALOPERIDOL 5 MG/ML (HALDOL) VIAL IM PRN ×2 (04:09→20:28)
[2020-11-21] MEDS: fentaNYL INJECTION 100 MCG/2 ML AMP IVP PRN ×2 (04:10→19:33)
--- NOTE | 2020-11-21 04:52 | Pulmonary Progress Note ---
Subjective Time Seen by a Provider: 04:49 Subjective/Events-last exam Pt is having ICU psychosis . Sepsis Event Evaluation Height, Weight, BMI Height: '" Weight: lbs. oz. kg; 34.48 BMI Method: Exam Exam Vital Signs Date Time Temp Pulse Resp B/P (MAP) Pulse Ox O2 Delivery O2 Flow Rate FiO2 11/21/20 04:00 111 24 97 Nasal Cannula 2.00 11/21/20 03:00 84 14 98 Nasal Cannula 2.00 11/21/20 02:00 82 17 97 Nasal Cannula 2.00 11/21/20 01:00 99 18 97 Nasal Cannula 2.00 11/21/20 01:00 90 11/21/20 00:00 82 12 98 Nasal Cannula 2.00 11/20/20 23:05 97 High Flow N/C 2.00 11/20/20 23:00 99 12 98 Nasal Cannula 2.00 11/20/20 22:00 87 14 99 Nasal Cannula 2.00 11/20/20 21:00 95 Nasal Cannula 2.00 11/20/20 21:00 92 16 100 Nasal Cannula 2.00 11/20/20 20:00 94 16 97 Nasal Cannula 2.00 11/20/20 19:00 111 11/20/20 19:00 111 25 92 Nasal Cannula 2.00 11/20/20 18:00 88 14 97 Nasal Cannula 2.00 11/20/20 17:00 98 14 93 Nasal Cannula 2.00 11/20/20 16:15 Nasal Cannula 2.00 11/20/20 16:00 117 27 71 OxyMask 4.00 11/20/20 15:20 36.6 11/20/20 15:00 96 18 96 OxyMask 4.00 11/20/20 14:50 36.3 16 140/57 (84) 97 OxyMask 5 11/20/20 14:50 OxyMask 4 11/20/20 14:45 OxyMask 4 11/20/20 14:40 16 139/57 (84) 97 OxyMask 5 11/20/20 14:30 20 150/59 (89) 97 OxyMask 6 11/20/20 14:30 OxyMask 5 11/20/20 14:20 OxyMask 10 11/20/20 14:20 36.3 14 139/51 (80) 98 OxyMask 10 11/20/20 13:00 107 56 96 High Flow N/C 4.00 11/20/20 12:36 105 11/20/20 12:00 97 22 98 High Flow N/C 4.00 11/20/20 11:11 36.6 11/20/20 11:00 112 35 94 High Flow N/C 4.00 11/20/20 10:00 120 14 95 High Flow N/C 4.00 11/20/20 09:00 102 14 96 High Flow N/C 4.00 11/20/20 08:00 101 20 92 High Flow N/C 4.00 11/20/20 08:00 36.0 11/20/20 08:00 95 Nasal Cannula 2.00 11/20/20 07:27 93 High Flow N/C 2.00 11/20/20 07:00 106 32 93 High Flow N/C 4.00 11/20/20 06:49 108 11/20/20 06:00 102 17 96 High Flow N/C 4.00 11/20/20 05:00 116 24 88 High Flow N/C 4.00 I & O 11/21/20 07:00 Intake Total 0 ml Output Total 1425 ml Balance -1425 ml Height & Weight Height: '" Weight: lbs. oz. kg; 34.48 BMI Method: General Appearance: No Apparent Distress, Chronically ill HEENT: PERRL/EOMI Neck: Full Range of Motion, Normal Inspection Respiratory: No Accessory Muscle Use, No Respiratory Distress, Decreased Breath Sounds Cardiovascular: Regular Rate, Rhythm, Normal Peripheral Pulses, Tachycardia Gastrointestinal: soft, tenderness Extremity: Normal Capillary Refill, Non Tender, Pedal Edema (2+ bilaterally) Neurologic/Psychiatric: Alert, Normal Mood/Affect Skin: Warm/Dry, Pallor Lymphatic: No Adenopathy Results Lab Laboratory Tests 11/20/20 01:45 11/21/20 02:30 Assessment/Plan Assessment/Plan Acute respiratory failure s/p surgery - now improved -Pt was admitted on 10/31 for hemicolectomy. Now s/p 3 different surgeries secondary to complications -S/p Extubation S/p multiple surgeries last surgery was 11/15 s/p revision of iliostomy/hemicolectomy with colostomy -Plan is to go back to surgery today to change out wound vacc Sepsis with abdominal abscess - Merrem,and Eraxis -Currently on TPN per surgery Hypernatremia -Will have pharmacy decrease Na in TPN -Start D5W at 100 and monitor BS Agitation/aggressive behavior -Haldol PRN -Pain control HTN -Vasotec Anemia -monitor S/p hemicolectomy secondary to Colon cancer then ileostomy secondary to torsion. then repeat surgery secondary to persistent intraabdominal sepsis. Debility HX of COPD with oxygen dependance at home Tobacco dependance anemia s/p 4 units of PRBC GIOVANNA BORREGO DO Nov 21, 2020 04:52
[2020-11-21] MEDS: meTOprolol 5 MG/5 ML (LOPRESSOR) VIAL IV SCH ×4 (05:25→23:49)
[2020-11-21] MEDS: METOCLOPRAMIDE INJ 10 MG/2 ML (REGLAN) IVP SCH ×4 (05:25→23:49)
[2020-11-21] MEDS: D5W 1000 ML IV SOLUTION 1,000 ML IV SCH ×2 (05:35→17:49)
--- NOTE | 2020-11-21 07:02 | Diagnostic Imaging Report ---
INDICATION: Infiltrates. Time of exam 2:04 AM Correlation is made with prior chest one day earlier. There is some infiltrate or atelectasis left base. Left base does show some improved aeration since yesterday. Right lung is fairly clear. There is no effusion or pneumothorax. IMPRESSION: Improved aeration to the left base when compared to examination one day earlier. Dictated by: Dictated on workstation # [id number]
--- NOTE | 2020-11-21 08:59 | Cardiology Progress Note ---
Subjective Date Seen by Provider: Nov 21, 2020 Time Seen by Provider: 08:57 Subjective/Events-last exam patient is laying down in bed, complaining of fatigue, confused Review of Systems General: Fatigue, Other ( unable to provide review of systems) Objective-Cardiology Exam Last Set of Vital Signs Vital Signs 11/19/20 11/21/20 11/21/20 11/21/20 11:09 06:00 06:54 08:00 Temp 36.4 Pulse 84 Resp 20 Pulse Ox 97 O2 Delivery Nasal Cannula O2 Flow Rate 2.00 FiO2 35 Capillary Refill : Less Than 3 Seconds I&O Intake and Output 11/21/20 00:00 Intake Total 0 ml Output Total 2125 ml Balance -2125 ml Intake Oral 0 ml Output Urine Total 1900 ml Stool Total 5 ml Drainage Total 220 ml General: Alert, Mild Distress HEENT: Atraumatic Neck: Supple, No JVD, No Thyromegaly Lungs: Normal Air Movement, Other (bilateral rhonchi) Heart: Normal S1, Normal S2, No Murmurs, Other (sinus tachycardia) Extremities: No Clubbing, No Cyanosis, No Edema, Normal Pulses, No Tenderness/Swelling Skin: No Rashes, No Breakdown, No Significant Lesion Neuro: Normal Speech Results Lab Laboratory Tests 11/21/20 02:30 A/P-Cardiology Admission Diagnosis Acute respiratory failure Sinus tachycardia Hypertension Hyperlipidemia Assessment/Plan Status post acute respiratory failure, extubated on November 18, 2020, improving slowly. Still having some shortness of breath, Managed by primary care team Confusion, delirium, receiving Haldol, lethargic. Managed by primary care team Status post extended right hemicolectomy and ileostomy revision for ileostomy, still having abdominal distention and poor bowel sounds, maintained on NG suction COPD, followed and managed by primary care physician Sinus tachycardia, secondary to hypoxia, and anemia, started on low-dose beta blockers. Continue to monitor Hypertension, monitor blood pressure Hyperlipidemia monitor lipids Clinical Quality Measures DVT/VTE Risk/Contraindication: Risk Factor Score Per Nursin MAYUR CANNON MD Nov 21, 2020 08:58
[2020-11-21] MEDS: meTOproloL SUCCINATE 50 MG (TOPROL XL) TAB PO SCH (09:38)
[2020-11-21] MEDS: NICOTINE PATCH REMOVAL TP SCH (09:43)
[2020-11-21] MEDS: ANIDULAFUNGIN INJECTION 100 MG in NS (IVPB) 100 ML IV SCH (09:43)
[2020-11-21] MEDS: ENALAPRILAT 2.5 MG/2 ML (VASOTEC) VIAL IV SCH ×2 (09:43→20:39)
[2020-11-21] MEDS: NICOTINE 14 MG (NICODERM) PATCH TD SCH (09:43)
[2020-11-21] MEDS: PANTOPRAZOLE 40 MG (PROTONIX) VIAL IV SCH (09:43)
--- NOTE | 2020-11-21 12:02 | Physical Therapy Daily Note ---
PT Daily Note-Current Mental Status Patient Orientation: Listless Attachments: SCD's, Oxygen, Drains, Lam Catheter, IV wound vac Transfers SCALE: Activities may be completed with or without assistive devices. 5-Uprnkvhdpp-qbfzpql completes the activity by him/herself with no assistance from a helper. 5-Set-up or Clean-up Assistance-helper sets up or cleans up; patient completes activity. [place] assists only prior to or following the activity. 4-Supervision or Touching Assistance-helper provides verbal cues and/or touching/steadying and/or contact guard assistance as patient completes activity. Assistance may be provided throughout the activity or intermittently. 3-Partial/Moderate Assistance-helper does LESS THAN HALF the effort. [place] lifts, holds or supports trunk or limbs, but provides less than half the effort. 2-Substantial/Maximal Assistance-helper does MORE THAN HALF the effort. [place] l ifts or holds trunk or limbs and provides more than half the effort. 8-Tfzvbbpub-bwzklr does ALL the effort. Patient does none of the effort to complete the activity. Or, the assistance of 2 or more helpers is required for the patient to complete the activity. If activity was not attempted, code reason: 7-Patient Refused. 9-Not Applicable-not attempted and the patient did not perform the activity before the current illness, exacerbation or injury. 10-Not Attempted due to Environmental Limitations-(lack of equipment, weather restraints, etc.). 88-Not Attempted due to Medical Conditions or Safety Concerns. Exercises Supine Ex: Ankle pumps, Heel Slides, Straight leg raise, Hip abd/add Supine Reps: 15 (PROM) Assessment Current Status: Poor Progress PT Short Term Goals Short Term Goals Time Frame: Dec 07, 2020 Roll Left & Right: 3 Sit to lyin Lying to sitting on side of be: 3 Sit to stand: 3 Chair/nyp-oq-odkut transfer: 3 PT Detention Goals Unit Clerk Goals PT Unit Clerk Goals Time Frame: Dec 21, 2020 Roll Left & Right (QC): 5 Sit to Lying (QC): 5 Lying-Sitting on Side/Bed(QC): 5 Sit to Stand (QC): 5 Chair/Qvb-ue-Wwtro Xfer(QC): 5 Toilet Transfer (QC): 5 Does the Patient Walk: No and Walking Goal IS indicated Walk 10 feet (QC): 3 Walk 50ft with 2 Turns (QC): 3 PT Plan Treatment/Plan Treatment Plan: Continue Plan of Care Treatment Plan: Bed Mobility, Education, Functional Activity [place], Functional Strength, Gait, Safety, Therapeutic Exercise, Transfers Treatment Duration: Dec 21, 2020 Frequency: 5 times per week Estimated Hrs Per Day: .25 hour per day (.25-.5) Time/GCodes Time In: 1128 Time Out: 1136 Total Billed Treatment Time: 8 Total Billed Treatment 1 visit EX 8 min ROBERT SCHWAB PT Nov 21, 2020 12:01
--- NOTE | 2020-11-21 12:45 | Progress Note - Hospitalist ---
MADI HAYWARD MED STUDENT 11/21/20 1245: Subjective HPI/CC On Admission Date Seen by Provider: Nov 21, 2020 Time Seen by Provider: 10:10 CC: VDRF following surgery for abscess and ileostomy ischemia HPI: This is a 75yoWF clinic patient of Dr Ba who presents to the ICU following urgent surgery following failure on IRF due to sepsis and elevated wbc. Patient was assessed to have ileostomy ischemia and abscess. Patient is currently on Cipro, Flagyl, Vanc, Kinga and Diflucan. Patient has a h/o colon ca ncer s/p resection 2 weeks ago and I was consulted for AECOPD due to long smoking hx and severe anemia s/p transfusion and resolution of hyponatremia. She had a complication of torsion requiring diverting ileostomy and she became strong enough to go to IRF but only lasted 2 days before she decompensated. Currently she remains intubated and critically ill. Subjective/Events-last exam Pt drowsy but requesting to sit up higher in bed Oxygen status maintained on 2L NC Surgery yesterday to change wound vac revealed necrotic tissue requiring debridement CXR showed improved aeration L lung base 5 mg Metoprolol added for sinus tach Hgb stable at 7.3 WBC trending down today 11.2 yesterday 15.5 Objective Exam Vital Signs Vital Signs Date Time Temp Pulse Resp B/P (MAP) Pulse Ox O2 Delivery O2 Flow Rate FiO2 11/21/20 11:00 120 30 94 Nasal Cannula 2.00 11/21/20 08:00 36.4 11/19/20 11:09 35 Capillary Refill : Less Than 3 Seconds General Appearance: WD/WN, Chronically ill Respiratory: Chest Non Tender, Accessory Muscle Use, Decreased Breath Sounds Cardiovascular: Regular Rate, Rhythm, No JVD, Normal Peripheral Pulses Gastrointestinal: No Pulsatile Mass, Abnormal Bowel Sounds (decreased throug hout), Other (wound vac draining sersanguinous fluid) Extremity: Non Tender, Pedal Edema (3+ bilaterally) Neurologic/Psychiatric: Normal Mood/Affect, Disoriented Skin: Warm/Dry, Pallor Results/Procedures Lab Laboratory Tests 11/21/20 02:30 Patient resulted labs reviewed. 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-Dr Lynch COPD O2 dependence at home HTN Smoker Hypernatremia Anemia s/p 3 units of blood on med-surg floor Ileus 11/14/20 Plan: IV abx Vent EICU Prognosis guarded 11/17/20: Abx Vent Monitor hgb closely 11/18/20 ABx Monitor hgb Continue TPN and NGT Supportive care 11/19/20 Continue TPN and NGT Monitor BP and hgb Abx Supportive care 11/20/20 Abx TPN and NGT Change TPN to contain less NA Monitor closely 11/21/20 Continue abx, TPN and NGT Monitor closely, prognosis guarded 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 Pain control Clinical Quality Measures DVT/VTE Risk/Contraindication: Risk Factor Score Per Nursin WILFREDO MARTÍNEZ DO 11/22/20 0540: Subjective Subjective/Events-last exam Changed wound vac in the surgery room yesterday and found some necrotic tissue Haldol has had to be increased Pt is very chronically ill WBC down to 11.2 Metoprolol given for tachycardia Sodium level 150, decreasing formulation of TPN Objective Exam General Appearance: Anxious, Chronically ill, Mild Distress Respiratory: Normal Breath Sounds Cardiovascular: Regular Rate, Rhythm Neurologic/Psychiatric: Disoriented Assessment/Plan Assessment and Plan Assess & Plan/Chief Complaint Guarded prognosis Supervisory-Addendum Brief Verification & Attestation Participated in pt care: history, MDM, physical Personally performed: exam, history, MDM, supervision of care Care discussed with: Medical Student Procedures: n/a Results interpretation: Verified all documentation Verification and Attestation of Medical Student E/M Service A medical student performed and documented this service in my presence. I reviewed and verified all information documented by the medical student and made modifications to such information, when appropriate. I personally performed the physical exam and medical decision making. Wilfredo Martínez, Nov 22, 2020,05:39 MADI HAYWARD MED STUDENT Nov 21, 2020 12:45 WILFREDO MARTÍNEZ DO Nov 22, 2020 05:40
[2020-11-21] MEDS: RT-ALBUTEROL/IPRATROPIUM 3 ML (DUONEB) VIAL INH SCH ×3 (14:21→19:39)
--- NOTE | 2020-11-21 14:31 | Occupational Ther Daily Note ---
OT Current Status-Daily Note Subjective Pt. asking for pain medication at end of treatment. She keeps eyes closed and does not state pain level. Pt. indicates her abdomen hurts by pointing to it. Nursing notified. Appearance Pt. in bed. She has her eyes closed. Mental Status/Objective Patient Orientation: Unable to Assess Attachments: Drains, Lam Catheter, IV, Oxygen, Telemetry ADL-Treatment Therapy Code Descriptions/Definitions Functional [place] Measure: 0=Not Assessed/NA 4=Minimal Assistance 1=Total Assistance 5=Supervision or Setup 2=Maximal Assistance 6=Modified [place] 3=Moderate Assistance 7=Complete IndependenceSCALE: Activities may be completed with or without assistive devices. 6-Trsicxkawi-jwlknhn completes the activity by him/herself with no assistance from a helper. 5-Set-up or Clean-up Assistance-helper sets up or cleans up; patient completes activity. H[place] assists only prior to or following the activity. 4-Supervision or Touching Assistance-helper provides verbal cues and/or touching/steadying and/or contact guard assistance as patient completes activity. Assistance may be provided throughout the activity or intermittently. 3-Partial/Moderate Assistance-helper does LESS THAN HALF the effort. Horton lifts, holds or supports trunk or limbs, but provides less than half the effort. 2-Substantial/Maximal Assistance-helper does MORE THAN HALF the effort. Horton lifts or holds trunk or limbs and provides more than half the effort. 1-Yzwrqektl-umgyhx does ALL the effort. Patient does none of the effort to complete the activity. Or, the assistance of 2 or more helpers is required for the patient to complete the activity. If activity was not attempted, code reason: 7-Patient Refused. 9-Not Applicable-not attempted and the patient did not perform the activity before the current illness, exacerbation or injury. 10-Not Attempted due to Environmental Limitations-(lack of equipment, weather restraints, etc.). 88-Not Attempted due to Medical Conditions or Safety Concerns. Other Treatment Pt. has her eyes closed throughout most of treatment. OT encourages her to open her eyes. OT gives pt. brush. Max cues for pt.to brush part of hair. OT brushes more thoroughly. Pt. is able to participate in AAROM exercises for elbows and shoulders. Max cues needed, but pt. is able to participate somewhat. Pt. is able to give OT cues on how she would be more comfortable in bed, and OT is able to lay HOB down further. Pt. does fall asleep after asking for more pain medication. Pt. has call light and table within reach when OT leaves room. Nursing notified that pt. wants pain meds. Education OT Patient Education: Correct positioning, Exercise program, Modified ADL techniques, Progress toward Goal/Update tx plan, Purpose of tx/functional activities, Reviewed precautions, Rehab process, Transfer techniques Teaching Recipient: Patient Response to Teaching: Reinforcement Needed OT Short Term Goals Short Term Goals Time Frame: Dec 03, 2020 Eatin Oral hygiene: 3 Toileting hygiene: 3 Shower/bathe self: 3 Upper body dressin Lower body dressin Putting on/taking off footwear: 3 OT Alf Goals Alf Goals Time Frame: Dec 17, 2020 Eating (QC): 6 Oral Hygiene (QC): 6 Toileting Hygiene (QC): 6 Shower/Bathe Self (QC): 4 Upper Body Dressing (QC): 5 Lower Body Dressing (QC): 4 On/Off Footwear (QC): 4 Additional Goals: 1-Demonstrate ADL Tasks, 2-Verbalize Understanding, 3-ImproveStrength/Palak 1=Demonstrate adherence to instructed precautions during ADL tasks. 2=Patient will verbalize/demonstrate understanding of assistive devices/modifications for ADL. 3=Patient will improve strength/tolerance for activity to enable patient to perform ADL's. OT Education/Plan Problem List/Assessment Assessment: Decreased Activ Tolerance, Decreased UE Strength, Dependent Transfers, Impaired Bed Mobility, Impaired I ADL's, Impaired Self-Care Skills Discharge Recommendations Plan/Recommendations: Continue POC Therapy Discharge Recommendati: 24 Hour Supervision Treatment Plan/Plan of Care Treatment,Training & Education: Yes Patient would benefit from OT for education, treatment and training to promote independence in ADL's, mobility, safety and/or upper extremity function for ADL's. Plan of Care: ADL Retraining, Functional Mobility, UE Funct Exercise/Act Treatment Duration: Dec 17, 2020 Frequency: 5 times per week Estimated Hrs Per Day: .25 hour per day Agreement: Yes Rehab Potential: Guarded Time/GCodes Start Time: 09:50 Stop Time: 10:03 Total Time Billed (hr/min): 13 Billed Treatment Time 1, Ex KOKI STOKES OT Nov 21, 2020 14:31
--- NOTE | 2020-11-21 15:11 | Progress Note ---
Subjective Date Seen by a Provider: Nov 21, 2020 Time Seen by a Provider: 15:00 Subjective/Events-last exam doing ok. ss abd wound vac drainage. wbc trending down. minimal ileostomy output. Objective Exam Vital Signs Date Time Temp Pulse Resp B/P (MAP) Pulse Ox O2 Delivery O2 Flow Rate FiO2 11/21/20 14:22 97 High Flow N/C 1.00 11/21/20 14:00 85 11 93 Nasal Cannula 2.00 11/21/20 13:00 113 27 97 Nasal Cannula 2.00 11/21/20 12:50 36.2 11/21/20 12:44 103 11/21/20 12:00 95 9 99 Nasal Cannula 2.00 11/21/20 11:00 120 30 94 Nasal Cannula 2.00 11/21/20 10:00 112 26 97 Nasal Cannula 2.00 11/21/20 09:00 86 8 99 Nasal Cannula 2.00 11/21/20 08:00 36.4 11/21/20 08:00 92 14 96 Nasal Cannula 2.00 11/21/20 08:00 96 Nasal Cannula 2.00 11/21/20 07:00 81 17 98 Nasal Cannula 2.00 11/21/20 06:54 84 11/21/20 06:00 85 20 97 Nasal Cannula 2.00 11/21/20 05:00 89 20 98 Nasal Cannula 2.00 11/21/20 04:00 111 24 97 Nasal Cannula 2.00 11/21/20 03:00 84 14 98 Nasal Cannula 2.00 11/21/20 02:00 82 17 97 Nasal Cannula 2.00 11/21/20 01:00 99 18 97 Nasal Cannula 2.00 11/21/20 01:00 90 11/21/20 00:00 82 12 98 Nasal Cannula 2.00 11/20/20 23:05 97 High Flow N/C 2.00 11/20/20 23:00 99 12 98 Nasal Cannula 2.00 11/20/20 22:00 87 14 99 Nasal Cannula 2.00 11/20/20 21:00 95 Nasal Cannula 2.00 11/20/20 21:00 92 16 100 Nasal Cannula 2.00 11/20/20 20:00 94 16 97 Nasal Cannula 2.00 11/20/20 19:00 111 11/20/20 19:00 111 25 92 Nasal Cannula 2.00 11/20/20 18:00 88 14 97 Nasal Cannula 2.00 11/20/20 17:00 98 14 93 Nasal Cannula 2.00 11/20/20 16:15 Nasal Cannula 2.00 11/20/20 16:00 117 27 71 OxyMask 4.00 11/20/20 15:20 36.6 I & O 11/21/20 07:00 Intake Total 0 ml Output Total 2025 ml Balance -2025 ml Capillary Refill : Less Than 3 Seconds General Appearance: No Apparent Distress HEENT: PERRL/EOMI Neck: Full Range of Motion Respiratory: Decreased Breath Sounds, Rhonci Cardiovascular: Regular Rate, Rhythm Gastrointestinal: soft, tenderness, other (vac intact with good seal) Extremity: Normal Capillary Refill Neurologic/Psychiatric: Alert Skin: Normal Color Lymphatic: No Adenopathy Results Lab Laboratory Tests 11/20/20 17:47: Glucometer 140H 11/21/20 02:30: White Blood Count 11.2H, Red Blood Count 2.43L, Hemoglobin 7.3L, Hematocrit 23L, Mean Corpuscular Volume 95, Mean Corpuscular Hemoglobin 30, Mean Corpuscular Hemoglobin Concent 32, Red Cell Distribution Width 17.2H, Platelet Count 270, Mean Platelet Volume 10.3, Immature Granulocyte % (Auto) 6, Neutrophils (%) (Auto) 80H, Lymphocytes (%) (Auto) 6L, Monocytes (%) (Auto) 7, Eosinophils (%) (Auto) 0, Basophils (%) (Auto) 0, Neutrophils # (Auto) 9.0H, Lymphocytes # (Auto) 0.7L, Monocytes # (Auto) 0.7, Eosinophils # (Auto) 0.0, Basophils # (Auto) 0.0, Immature Granulocyte # (Auto) 0.7H, Sodium Level 150H, Potassium Level 4.4, Chloride Level 117H, Carbon Dioxide Level 24, Anion Gap 9, Blood Urea Nitrogen 52H, Creatinine 0.95, Estimat Glomerular Filtration Rate 57, BUN/Creatinine Ratio 55, Glucose Level 156H, Calcium Level 8.1L, Phosphorus Level 4.1, Magnesium Level 2.0 11/21/20 12:31: Glucometer 171H Microbiology 11/16/20 MRSA Screen - Final, Complete MRSA not isolated 11/15/20 Gram Stain - Final, Resulted 11/15/20 Anaerobic Culture - Final, Resulted No anaerobes isolated 11/15/20 Surgical Culture - Final, Resulted Bobbi glabrata Bobbi species 11/15/20 Fungal Culture 1 - Preliminary, Resulted Bobbi glabrata Bobbi species Assessment/Plan Assessment/Plan Assess & Plan/Chief Complaint s/p extended right hemicolectomy, end ileostomy, mucous fistula, revision ileostomy, drainage intraabd abscess and VAC placement. will change vac about every 5 days. start a carbapenem. cont TPN and NGT transfuse PRBC await for more ileostomy output which will be slow. Clinical Quality Measures DVT/VTE Risk/Contraindication: Risk Factor Score Per Nursin MICHAEL XIONG MD Nov 21, 2020 15:11
[2020-11-21] MEDS: POTASSIUM PHOSPHATE IV SCH ×10 (17:48)
[2020-11-21] MEDS: POTASSIUM ACETATE IV SCH ×10 (17:48)
[2020-11-21] MEDS: [UNRECOGNIZED DRUG - OTHER] IV SCH ×10 (17:48)
[2020-11-21] MEDS: ENOXAPARIN 40 MG/0.4 ML (LOVENOX) SYR SC SCH (20:39)
[2020-11-22] MEDS: fentaNYL INJECTION 100 MCG/2 ML AMP IVP PRN ×4 (00:39→23:50)
[2020-11-22] MEDS: HYDROmorphone 2 MG/ML VIAL (DILAUDID) IV PRN ×4 (01:59→15:52)
[2020-11-22] MEDS: MEROPENEM 500 MG in WATER (STERILE) FOR INJECTION 10 ML IV SCH ×3 (02:40→19:02)
[2020-11-22 03:54] LABS: BASOPHILS % (AUTO) 0 % (0-10); EOSINOPHILS # (AUTO) 0.2 10^3/uL (0.0-0.3); EOSINOPHILS % (AUTO) 2 % (0-10); HEMATOCRIT 22 % (35-52); HEMOGLOBIN 7.1 g/dL (11.5-16.0); LYMPHOCYTES # (AUTO) 0.8 10^3/uL (1.0-4.0); LYMPHOCYTES % (AUTO) 7 % (12-44); MEAN CORPUSCULAR HEMOGLOBIN 30 pg (25-34); MEAN CORPUSCULAR HGB CONC 32 g/dL (32-36); MEAN CORPUSCULAR VOLUME 95 fL (80-99); MEAN PLATELET VOLUME 10.8 fL (9.0-12.2); MONOCYTES # (AUTO) 0.7 10^3/uL (0.0-1.0); MONOCYTES % (AUTO) 7 % (0-12); NEUTROPHILS # (AUTO) 8.2 10^3/uL (1.8-7.8); NEUTROPHILS % (AUTO) 80 % (42-75); PLATELET COUNT 239 10^3/uL (130-400); WHITE BLOOD COUNT 10.3 10^3/uL (4.3-11.0)
[2020-11-22 04:13] LABS: CHLORIDE 111 MMOL/L (98-107); POTASSIUM 4.5 MMOL/L (3.6-5.0)
[2020-11-22 04:14] LABS: SODIUM 144 MMOL/L (135-145)
[2020-11-22 04:15] LABS: GLUCOSE 158 MG/DL (70-105)
[2020-11-22 04:17] LABS: CARBON DIOXIDE 24 MMOL/L (21-32)
[2020-11-22 04:19] LABS: CREATININE SERUM 0.84 MG/DL (0.60-1.30); GFR ESTIMATED > 60; PHOSPHORUS 3.8 MG/DL (2.3-4.7)
[2020-11-22] MEDS: inSUlin ASPART (NovoLOG) 1 UNIT/0.01 ML (CHARGE PER UNIT) SQ SCH ×4 (04:19→23:30)
[2020-11-22 04:20] LABS: BUN/CREATININE RATIO 56
[2020-11-22 04:21] LABS: MAGNESIUM 1.9 MG/DL (1.6-2.4)
--- NOTE | 2020-11-22 05:04 | Pulmonary Progress Note ---
Subjective Time Seen by a Provider: 05:04 Subjective/Events-last exam No complications noted. Sepsis Event Evaluation Height, Weight, BMI Height: '" Weight: lbs. oz. kg; 34.48 BMI Method: Exam Exam Vital Signs Date Time Temp Pulse Resp B/P (MAP) Pulse Ox O2 Delivery O2 Flow Rate FiO2 11/22/20 04:00 82 17 130/68 (88) 98 Nasal Cannula 2.00 11/22/20 03:00 83 14 122/60 (80) 96 Nasal Cannula 2.00 11/22/20 02:00 86 24 162/73 (102) 96 Nasal Cannula 2.00 11/22/20 01:00 86 27 130/57 (81) 98 Nasal Cannula 2.00 11/22/20 01:00 92 11/22/20 00:00 83 14 129/54 (79) 98 Nasal Cannula 2.00 11/22/20 00:00 36.0 11/21/20 23:00 91 13 128/59 (82) 98 Nasal Cannula 2.00 11/21/20 22:00 97 12 139/58 (85) 97 Nasal Cannula 2.00 11/21/20 21:00 90 15 129/52 (77) 97 Nasal Cannula 2.00 11/21/20 21:00 96 Nasal Cannula 2.00 11/21/20 20:00 90 35 159/67 (97) 96 Nasal Cannula 2.00 11/21/20 19:39 94 High Flow N/C 1.00 11/21/20 19:00 100 11/21/20 19:00 100 28 97 Nasal Cannula 2.00 11/21/20 18:00 92 21 97 Nasal Cannula 2.00 11/21/20 17:00 90 9 97 Nasal Cannula 2.00 11/21/20 16:00 35.7 11/21/20 16:00 113 30 96 Nasal Cannula 2.00 11/21/20 15:00 98 13 96 Nasal Cannula 2.00 11/21/20 14:22 97 High Flow N/C 1.00 11/21/20 14:00 85 11 93 Nasal Cannula 2.00 11/21/20 13:00 113 27 97 Nasal Cannula 2.00 11/21/20 12:50 36.2 11/21/20 12:44 103 11/21/20 12:00 95 9 99 Nasal Cannula 2.00 11/21/20 11:00 120 30 94 Nasal Cannula 2.00 11/21/20 10:00 112 26 97 Nasal Cannula 2.00 11/21/20 09:00 86 8 99 Nasal Cannula 2.00 11/21/20 08:00 36.4 11/21/20 08:00 92 14 96 Nasal Cannula 2.00 11/21/20 08:00 96 Nasal Cannula 2.00 11/21/20 07:00 81 17 98 Nasal Cannula 2.00 11/21/20 06:54 84 11/21/20 06:00 85 20 97 Nasal Cannula 2.00 I & O 11/22/20 07:00 Intake Total 0 ml Output Total 1585 ml Balance -1585 ml Height & Weight Height: '" Weight: lbs. oz. kg; 34.48 BMI Method: General Appearance: No Apparent Distress HEENT: PERRL/EOMI Neck: Full Range of Motion Respiratory: Decreased Breath Sounds, Rhonci Cardiovascular: Regular Rate, Rhythm Gastrointestinal: soft, tenderness, other (vac intact with good seal) Extremity: Normal Capillary Refill Neurologic/Psychiatric: Alert Skin: Normal Color Lymphatic: No Adenopathy Results Lab Laboratory Tests 11/21/20 02:30 11/22/20 03:19 Assessment/Plan Assessment/Plan Acute respiratory failure s/p surgery - now improved -Pt was admitted on 10/31 for hemicolectomy. Now s/p 3 different surgeries secondary to complications -S/p Extubation S/p multiple surgeries last surgery was 11/15 s/p revision of iliostomy/hemicolec radha with colostomy -Surgery is following Sepsis with abdominal abscess - Merrem,and Eraxis -Currently on TPN per surgery Hypernatremia -- Now improving -Since Na is now improved will D/C D5W -pharmacy decreased Na in TPN Agitation/aggressive behavior -Haldol PRN -Pain control HTN -Vasotec Anemia -monitor S/p hemicolectomy secondary to Colon cancer then ileostomy secondary to torsion. then repeat surgery secondary to persistent intraabdominal sepsis. Debility HX of COPD with oxygen dependance at home Tobacco dependance anemia s/p 4 units of PRBC GIOVANNA BORREGO DO Nov 22, 2020 05:04
[2020-11-22] MEDS: meTOprolol 5 MG/5 ML (LOPRESSOR) VIAL IV SCH ×4 (05:33→23:32)
[2020-11-22] MEDS: METOCLOPRAMIDE INJ 10 MG/2 ML (REGLAN) IVP SCH ×3 (05:33→20:53)
--- NOTE | 2020-11-22 06:24 | Diagnostic Imaging Report ---
EXAMINATION: Portable erect AP chest at 2:00 AM INDICATION: Respiratory distress The heart size is within normal limits and stable when compared to 11/13/2020. The mild left lower lobe atelectasis/infiltrate seen on the prior study is again evident and not significantly changed. The lungs are otherwise generally clear. The mediastinum is not widened. The osseous structures are intact. The central venous catheter on the left seen previously is similar in position to the prior exam. IMPRESSION: Stable chest. There has been no adverse change since the prior study. Dictated by: Dictated on workstation # [id number]
[2020-11-22] MEDS: HALOPERIDOL 5 MG/ML (HALDOL) VIAL IM PRN (07:37)
[2020-11-22] MEDS: ENALAPRILAT 2.5 MG/2 ML (VASOTEC) VIAL IV SCH ×2 (08:45→20:53)
[2020-11-22] MEDS: PANTOPRAZOLE 40 MG (PROTONIX) VIAL IV SCH (08:45)
[2020-11-22] MEDS: ANIDULAFUNGIN INJECTION 100 MG in NS (IVPB) 100 ML IV SCH (08:45)
[2020-11-22] MEDS: NICOTINE PATCH REMOVAL TP SCH (08:45)
[2020-11-22] MEDS: meTOproloL SUCCINATE 50 MG (TOPROL XL) TAB PO SCH (08:46)
[2020-11-22] MEDS: NICOTINE 14 MG (NICODERM) PATCH TD SCH (08:47)
--- NOTE | 2020-11-22 10:21 | Cardiology Progress Note ---
Subjective Date Seen by Provider: Nov 22, 2020 Time Seen by Provider: 10:19 Subjective/Events-last exam Patient is laying down in bed, more awake today, feeling better, denied any chest pain or abdominal pain today Review of Systems General: No Chills, No Night Sweats; Fatigue, Malaise; No Appetite, No Other HEENT: No Head Aches, No Visual Changes, No Eye Pain, No Ear Pain, No Dysphasia, No Sinus Congestion, No Post Nasal Drip, No Sore Throat, No Other Pulmonary: Dyspnea; No Cough, No Pleuritic Chest Pain, No Other Cardiovascular: No: Chest Pain, Palpitations, Orthopnea, Paroxysmal Noc. Dyspnea, Edema, Lt Headedness, Other Objective-Cardiology Exam Last Set of Vital Signs Vital Signs 11/19/20 11/22/20 11/22/20 11:09 00:00 10:00 Temp 36.0 Pulse 90 Resp 16 B/P (MAP) 148/58 (88) Pulse Ox 96 O2 Delivery Nasal Cannula O2 Flow Rate 2.00 FiO2 35 Capillary Refill : Less Than 3 Seconds I&O Intake and Output 11/22/20 00:00 Intake Total 0 ml Output Total 2150 ml Balance -2150 ml Intake Oral 0 ml Output Urine Total 1900 ml Drainage Total 250 ml General: Alert, Oriented X3, Cooperative, Mild Distress HEENT: Atraumatic Neck: Supple, No JVD, No Thyromegaly Lungs: Normal Air Movement, Other (bilateral rhonchi) Heart: Regular Rate, Normal S1, Normal S2, No Murmurs Abdomen: Other (hyperactive bowel sounds) Extremities: No Clubbing, No Cyanosis, No Edema, Normal Pulses, No Tendern ess/Swelling Skin: No Rashes, No Breakdown, No Significant Lesion Neuro: Normal Speech Results Lab Laboratory Tests 11/22/20 03:19 A/P-Cardiology Admission Diagnosis Acute respiratory failure Sinus tachycardia Hypertension Hyperlipidemia Assessment/Plan Status post acute respiratory failure, extubated on November 18, 2020, improving slowly. Still having some shortness of breath, Managed by primary care team Confusion, delirium, better today, managed by primary care physician Anemia, worse today, monitor H&H Status post extended right hemicolectomy and ileostomy revision for ileostomy, had her wound VAC replaced, appeared to be feeling better today. Managed by primary care team COPD, followed and managed by primary care physician Sinus tachycardia, secondary to hypoxia, and anemia, started on low-dose beta blockers. Continue to monitor Hypertension, monitor blood pressure Hyperlipidemia monitor lipids Clinical Quality Measures DVT/VTE Risk/Contraindication: Risk Factor Score Per Nursin MAYUR CANNON MD Nov 22, 2020 10:21 am
--- NOTE | 2020-11-22 10:42 | Progress Note ---
Subjective Date Seen by a Provider: Nov 22, 2020 Time Seen by a Provider: 10:00 Subjective/Events-last exam patient confused however clinically improving. WBC trending to normal. increased succus output end ileostomy. Objective Exam Vital Signs Date Time Temp Pulse Resp B/P (MAP) Pulse Ox O2 Delivery O2 Flow Rate FiO2 11/22/20 10:00 90 16 148/58 (88) 96 Nasal Cannula 2.00 11/22/20 09:00 93 11 117/52 (73) 97 Nasal Cannula 2.00 11/22/20 09:00 97 Nasal Cannula 2.00 11/22/20 08:00 82 11 99/49 (66) 96 Nasal Cannula 2.00 11/22/20 07:00 89 12 138/62 (87) 97 Nasal Cannula 2.00 11/22/20 07:00 115 11/22/20 06:00 81 14 121/52 (75) 96 Nasal Cannula 2.00 11/22/20 05:00 80 14 129/68 (88) 98 Nasal Cannula 2.00 11/22/20 04:00 82 17 130/68 (88) 98 Nasal Cannula 2.00 11/22/20 03:00 83 14 122/60 (80) 96 Nasal Cannula 2.00 11/22/20 02:00 86 24 162/73 (102) 96 Nasal Cannula 2.00 11/22/20 01:00 86 27 130/57 (81) 98 Nasal Cannula 2.00 11/22/20 01:00 92 11/22/20 00:00 83 14 129/54 (79) 98 Nasal Cannula 2.00 11/22/20 00:00 36.0 11/21/20 23:00 91 13 128/59 (82) 98 Nasal Cannula 2.00 11/21/20 22:00 97 12 139/58 (85) 97 Nasal Cannula 2.00 11/21/20 21:00 90 15 129/52 (77) 97 Nasal Cannula 2.00 11/21/20 21:00 96 Nasal Cannula 2.00 11/21/20 20:00 90 35 159/67 (97) 96 Nasal Cannula 2.00 11/21/20 19:39 94 High Flow N/C 1.00 11/21/20 19:00 100 11/21/20 19:00 100 28 97 Nasal Cannula 2.00 11/21/20 18:00 92 21 97 Nasal Cannula 2.00 11/21/20 17:00 90 9 97 Nasal Cannula 2.00 11/21/20 16:00 35.7 11/21/20 16:00 113 30 96 Nasal Cannula 2.00 11/21/20 15:00 98 13 96 Nasal Cannula 2.00 11/21/20 14:22 97 High Flow N/C 1.00 11/21/20 14:00 85 11 93 Nasal Cannula 2.00 11/21/20 13:00 113 27 97 Nasal Cannula 2.00 11/21/20 12:50 36.2 11/21/20 12:44 103 11/21/20 12:00 95 9 99 Nasal Cannula 2.00 11/21/20 11:00 120 30 94 Nasal Cannula 2.00 I & O 11/22/20 07:00 Intake Total 0 ml Output Total 1810 ml Balance -1810 ml Capillary Refill : Less Than 3 Seconds General Appearance: No Apparent Distress HEENT: PERRL/EOMI Neck: Full Range of Motion Respiratory: Decreased Breath Sounds, Rhonci, Wheezing Cardiovascular: Regular Rate, Rhythm Gastrointestinal: soft, tenderness Extremity: Normal Capillary Refill Neurologic/Psychiatric: Alert, Disoriented Skin: Normal Color Lymphatic: No Adenopathy Results Lab Laboratory Tests 11/21/20 12:31: Glucometer 171H 11/21/20 17:48: Glucometer 134H 11/22/20 03:19: White Blood Count 10.3, Red Blood Count 2.36L, Hemoglobin 7.1L, Hematocrit 22L, Mean Corpuscular Volume 95, Mean Corpuscular Hemoglobin 30, Mean Corpuscular Hemoglobin Concent 32, Red Cell Distribution Width 16.9H, Platelet Count 239, Mean Platelet Volume 10.8, Immature Granulocyte % (Auto) 4, Neutrophils (%) (Auto) 80H, Lymphocytes (%) (Auto) 7L, Monocytes (%) (Auto) 7, Eosinophils (%) (Auto) 2, Basophils (%) (Auto) 0, Neutrophils # (Auto) 8.2H, Lymphocytes # (Auto) 0.8L, Monocytes # (Auto) 0.7, Eosinophils # (Auto) 0.2, Basophils # (Auto) 0.0, Immature Granulocyte # (Auto) 0.4H, Sodium Level 144, Potassium Level 4.5, Chloride Level 111H, Carbon Dioxide Level 24, Anion Gap 9, Blood Urea Nitrogen 47H, Creatinine 0.84, Estimat Glomerular Filtration Rate > 60, BUN/Creatinine Ratio 56, Glucose Level 158H, Calcium Level 8.0L, Phosphorus Level 3.8, Magnesium Level 1.9 Microbiology 11/16/20 MRSA Screen - Final, Complete MRSA not isolated 11/15/20 Gram Stain - Final, Resulted 11/15/20 Anaerobic Culture - Final, Resulted No anaerobes isolated 11/15/20 Surgical Culture - Final, Resulted Bobbi glabrata Bobbi species 11/15/20 Fungal Culture 1 - Preliminary, Resulted Bobbi glabrata Bobbi species Assessment/Plan Assessment/Plan Assess & Plan/Chief Complaint s/p extended right hemicolectomy, end ileostomy, mucous fistula, revision ile ostomy, drainage intraabd abscess and VAC placement. will change vac about every 5 days. start a carbapenem. cont TPN transfuse PRBC await for more ileostomy output which will be slow. OK to transfer to floor if needed. Clinical Quality Measures DVT/VTE Risk/Contraindication: Risk Factor Score Per Nursin MICHAEL XIONG MD Nov 22, 2020 10:42
[2020-11-22] MEDS: RT-ALBUTEROL/IPRATROPIUM 3 ML (DUONEB) VIAL INH SCH ×3 (11:00→22:32)
--- NOTE | 2020-11-22 11:55 | Physical Therapy Daily Note ---
PT Daily Note-Current Mental Status Patient Orientation: M[place], Listless Attachments: Colostomy/Ileostomy, Oxygen, Drains, Lam Catheter, IV Transfers SCALE: Activities may be completed with or without assistive devices. 3-Isscwpgtib-seriuwx completes the activity by him/herself with no assistance from a helper. 5-Set-up or Clean-up Assistance-helper sets up or cleans up; patient completes activity. [place] assists only prior to or following the activity. 4-Supervision or Touching Assistance-helper provides verbal cues and/or touching/steadying and/or contact guard assistance as patient completes activity. Assistance may be provided throughout the activity or intermittently. 3-Partial/Moderate Assistance-helper does LESS THAN HALF the effort. [place] lifts, holds or supports trunk or limbs, but provides less than half the effort. 2-Substantial/Maximal Assistance-helper does MORE THAN HALF the effort. [place] lifts or holds trunk or limbs and provides more than half the effort. 3-Epwirflth-xdotxn does ALL the effort. Patient does none of the effort to complete the activity. Or, the assistance of 2 or more helpers is required for the patient to complete the activity. If activity was not attempted, code reason: 7-Patient Refused. 9-Not Applicable-not attempted and the patient did not perform the activity before the current illness, exacerbation or injury. 10-Not Attempted due to Environmental Limitations-(lack of equipment, weather restraints, etc.). 88-Not Attempted due to Medical Conditions or Safety Concerns. Exercises Supine Ex: Ankle pumps, Heel Slides, Straight leg raise, Hip abd/add Supine Reps: 15 (PROM) Assessment Due to pain medication and current status, patient is unable to actively p articipate with therapy. PROM performed bilateral LE PT Short Term Goals Short Term Goals Time Frame: Dec 07, 2020 Roll Left & Right: 3 Sit to lyin Lying to sitting on side of be: 3 Sit to stand: 3 Chair/won-vc-asblh transfer: 3 PT Shelter Goals Project Engineering Manager Goals PT Project Engineering Manager Goals Time Frame: Dec 21, 2020 Roll Left & Right (QC): 5 Sit to Lying (QC): 5 Lying-Sitting on Side/Bed(QC): 5 Sit to Stand (QC): 5 Chair/Arn-lo-Qnmsf Xfer(QC): 5 Toilet Transfer (QC): 5 Does the Patient Walk: No and Walking Goal IS indicated Walk 10 feet (QC): 3 Walk 50ft with 2 Turns (QC): 3 PT Plan Treatment/Plan Treatment Plan: Continue Plan of Care Treatment Plan: Bed Mobility, Education, Functional Activity [place], Functional Strength, Gait, Safety, Therapeutic Exercise, Transfers Treatment Duration: Dec 21, 2020 Frequency: 5 times per week Estimated Hrs Per Day: .25 hour per day (.25-.5) Time/GCodes Time In: 1135 Time Out: 1146 Total Billed Treatment Time: 11 Total Billed Treatment 1 visit Ex 11 min ROBERT SCHWAB PT Nov 22, 2020 11:55
--- NOTE | 2020-11-22 12:38 | Progress Note - Hospitalist ---
Subjective HPI/CC On Admission Date Seen by Provider: Nov 22, 2020 Time Seen by Provider: 11:30 CC: VDRF following surgery for abscess and ileostomy ischemia HPI: This is a 75yoWF clinic patient of Dr Ba who presents to the ICU following urgent surgery following failure on IRF due to sepsis and elevated wbc. Patient was assessed to have ileostomy ischemia and abscess. Patient is currently on Cipro, Flagyl, Vanc, Kinga and Diflucan. Patient has a h/o colon cancer s/p resection 2 weeks ago and I was consulted for AECOPD due to long smoking hx and severe anemia s/p transfusion and resolution of hyponatremia. She had a complication of torsion requiring diverting ileostomy and she became strong enough to go to IRF but only lasted 2 days before she decompensated. Currently she remains intubated and critically ill. Subjective/Events-last exam Patient sedated Moving to 4th floor Hgb 7.1 Checked meds and labs Drowsy Review of Systems Gastrointestinal: Abdominal Pain Objective Exam Vital Signs Vital Signs Date Time Temp Pulse Resp B/P (MAP) Pulse Ox O2 Delivery O2 Flow Rate FiO2 11/23/20 07:00 93 11/23/20 03:13 36.0 18 156/68 (97) 95 Nasal Cannula 2.00 11/19/20 11:09 35 Capillary Refill : Less Than 3 Seconds General Appearance: No Apparent Distress, WD/WN, Chronically ill Neck: No Full Range of Motion, No Normal Inspection, No Non Tender, No Supple, No Carotid Bruit, No JVD, No Limited Range of Motion, No Lymphadenopathy (L), No Lymphadenopathy (R), No Tender Lateral, No Tender Midline, No Thyromegaly, No Other Respiratory: Chest Non Tender, Lungs Clear, Normal Breath Sounds, No Accessory Muscle Use, No Respiratory Distress Cardiovascular: Regular Rate, Rhythm, No Edema, No Gallop, No JVD, No Murmur, Normal Peripheral Pulses Neurologic/Psychiatric: Alert, Disoriented Results/Procedures Lab Laboratory Tests 11/23/20 05:40 Patient resulted labs reviewed. Assessment/Plan Assessment and Plan Assess & Plan/Chief Complaint Guarded prognosis Assessment: Colon cancer Bowel resection with diverting ileostomy Psychosis Anemia requiring transfusion Severe [place] Abdominal pain Hyponatremia Plan: 4th floor move Monitor closely Diagnosis/Problems Diagnosis/Problems (1) Ileus following gastrointestinal surgery (2) Presbycusis of both ears (3) Ileostomy in place (4) Anemia due to acute blood loss (5) Colon cancer (6) Myopathy (7) Hyponatremia (8) COPD (chronic obstructive pulmonary disease) (9) S/P right hemicolectomy Clinical Quality Measures DVT/VTE Risk/Contraindication: Risk Factor Score Per Nursin WILFREDO MARTÍNEZ DO Nov 22, 2020 12:38
--- NOTE | 2020-11-22 12:45 | Occupational Ther Daily Note ---
OT Current Status-Daily Note Subjective Pt lying in bed, eyes closed and moaning. When asked about pain, pt makes known she wants pain medications. Mental Status/Objective Patient Orientation: Person, Unable to Assess Attachments: IV, Oxygen, Telemetry ADL-Treatment Therapy Code Descriptions/Definitions Functional [place] Measure: 0=Not Assessed/NA 4=Minimal Assistance 1=Total Assistance 5=Supervision or Setup 2=Maximal Assistance 6=Modified [place] 3=Moderate Assistance 7=Complete IndependenceSCALE: Activities may be completed with or without assistive devices. 0-Vopeuqgdwq-ggcyuil completes the activity by him/herself with no assistance from a helper. 5-Set-up or Clean-up Assistance-helper sets up or cleans up; patient completes activity. [place] assists only prior to or following the activity. 4-Supervision or Touching Assistance-helper provides verbal cues and/or touching/steadying and/or contact guard assistance as patient completes activity. Assistance may be provided throughout the activity or intermittently. 3-Partial/Moderate Assistance-helper does LESS THAN HALF the effort. [place] lifts, holds or supports trunk or limbs, but provides less than half the effort. 2-Substantial/Maximal Assistance-helper does MORE THAN HALF the effort. [place] lifts or holds trunk or limbs and provides more than half the effort. 9-Bnkseclfx-tiskrp does ALL the effort. Patient does none of the effort to complete the activity. Or, the assistance of 2 or more helpers is required for the patient to complete the activity. If activity was not attempted, code reason: 7-Patient Refused. 9-Not Applicable-not attempted and the patient did not perform the activity before the current illness, exacerbation or injury. 10-Not Attempted due to Environmental Limitations-(lack of equipment, weather restraints, etc.). 88-Not Attempted due to Medical Conditions or Safety Concerns. Other Treatment Due to pain and current status, patient is unable to actively participate with therapy. PROM to B UE's and assist x2 to make comfortable in bed. Pt left in care of nrsg. OT Short Term Goals Short Term Goals Time Frame: Dec 03, 2020 Eatin Oral hygiene: 3 Toileting hygiene: 3 Shower/bathe self: 3 Upper body dressin Lower body dressin Putting on/taking off footwear: 3 OT Midlevel Provider Goals Fpc Goals Time Frame: Dec 17, 2020 Eating (QC): 6 Oral Hygiene (QC): 6 Toileting Hygiene (QC): 6 Shower/Bathe Self (QC): 4 Upper Body Dressing (QC): 5 Lower Body Dressing (QC): 4 On/Off Footwear (QC): 4 Additional Goals: 1-Demonstrate ADL Tasks, 2-Verbalize Understanding, 3- ImproveStrength/[place] 1=Demonstrate adherence to instructed precautions during ADL tasks. 2=Patient will verbalize/demonstrate understanding of assistive devices/modifications for ADL. 3=Patient will improve strength/tolerance for activity to enable patient to perform ADL's. OT Education/Plan Problem List/Assessment Assessment: Decreased Activ Tolerance, Decreased Safety Aware, Decreased UE Strength, Dependent Transfers, Impaired Bed Mobility, Impaired Cognition, Impaired Coordination, Impaired Funct Balance, Impaired I ADL's, Impaired Self- Care Skills, Restricted Funct UE ROM Discharge Recommendations Plan/Recommendations: Continue POC Treatment Plan/Plan of Care Patient would benefit from OT for education, treatment and training to promote independence in ADL's, mobility, safety and/or upper extremity function for ADL's. Plan of Care: ADL Retraining, Functional Mobility, UE Funct Exercise/Act Treatment Duration: Dec 17, 2020 Frequency: 5 times per week Estimated Hrs Per Day: .25 hour per day Agreement: Yes Rehab Potential: Guarded Time/GCodes Start Time: 10:40 Stop Time: 10:48 Total Time Billed (hr/min): 8 Billed Treatment Time 1 visit-FA 1 (8 min) RAIZA BROWNING Nov 22, 2020 12:45
[2020-11-22] MEDS ORDERED: [UNRECOGNIZED DRUG - OTHER] IV SCH ×10 (17:00)
[2020-11-22] MEDS ORDERED: POTASSIUM ACETATE IV SCH ×10 (17:00)
[2020-11-22] MEDS ORDERED: POTASSIUM PHOSPHATE IV SCH ×10 (17:00)
[2020-11-22] MEDS ORDERED: D5 LR IV SOLUTION 1,000 ML IV ONE (17:35)
[2020-11-22] MEDS: D5 LR IV SOLUTION 1,000 ML IV SCH (17:45)
[2020-11-22 20:33] VITALS: BP 173/74
[2020-11-22] MEDS: ENOXAPARIN 40 MG/0.4 ML (LOVENOX) SYR SC SCH (20:54)
[2020-11-22 23:28] VITALS: BP 186/84
[2020-11-23] MEDS: diphenhydrAMINE 50 MG/ML INJ (BENADRYL) IV PRN (01:41)
[2020-11-23] MEDS: D5 LR IV SOLUTION 1,000 ML IV SCH ×2 (03:11→12:17)
[2020-11-23] MEDS: MEROPENEM 500 MG in WATER (STERILE) FOR INJECTION 10 ML IV SCH ×3 (03:11→17:58)
[2020-11-23 03:13] VITALS: BP 156/68
[2020-11-23] MEDS: HYDROmorphone 2 MG/ML VIAL (DILAUDID) IV PRN ×2 (03:57→07:43)
[2020-11-23] MEDS: inSUlin ASPART (NovoLOG) 1 UNIT/0.01 ML (CHARGE PER UNIT) SQ SCH ×3 (05:47→17:51)
[2020-11-23] MEDS: meTOprolol 5 MG/5 ML (LOPRESSOR) VIAL IV SCH ×3 (06:20→17:58)
[2020-11-23] MEDS: fentaNYL INJECTION 100 MCG/2 ML AMP IVP PRN ×3 (06:20→18:04)
[2020-11-23 06:32] LABS: BASOPHILS % (AUTO) 0 % (0-10); CHLORIDE 112 MMOL/L (98-107); EOSINOPHILS % (AUTO) 1 % (0-10); HEMATOCRIT 23 % (35-52); HEMOGLOBIN 7.1 g/dL (11.5-16.0); LYMPHOCYTES # (AUTO) 0.8 10^3/uL (1.0-4.0); LYMPHOCYTES % (AUTO) 9 % (12-44); MEAN CORPUSCULAR HEMOGLOBIN 30 pg (25-34); MEAN CORPUSCULAR HGB CONC 31 g/dL (32-36); MEAN CORPUSCULAR VOLUME 94 fL (80-99); MEAN PLATELET VOLUME 11.3 fL (9.0-12.2); MONOCYTES # (AUTO) 0.5 10^3/uL (0.0-1.0); MONOCYTES % (AUTO) 6 % (0-12); NEUTROPHILS # (AUTO) 6.4 10^3/uL (1.8-7.8); NEUTROPHILS % (AUTO) 81 % (42-75); PLATELET COUNT 210 10^3/uL (130-400); POTASSIUM 4.3 MMOL/L (3.6-5.0); SODIUM 146 MMOL/L (135-145)
[2020-11-23 06:34] LABS: GLUCOSE 135 MG/DL (70-105); TOTAL PROTEIN 5.1 GM/DL (6.4-8.2)
[2020-11-23 06:36] LABS: BILIRUBIN,TOTAL 0.6 MG/DL (0.1-1.0); CARBON DIOXIDE 25 MMOL/L (21-32)
[2020-11-23 06:38] LABS: ALKALINE PHOSPHATASE 362 U/L (40-136); CREATININE SERUM 0.88 MG/DL (0.60-1.30); PHOSPHORUS 3.9 MG/DL (2.3-4.7)
[2020-11-23 06:39] LABS: BUN/CREATININE RATIO 49
[2020-11-23 06:41] LABS: ALANINE AMINOTRANSFERASE 23 U/L (0-55); MAGNESIUM 1.9 MG/DL (1.6-2.4)
[2020-11-23 06:43] LABS: GFR ESTIMATED > 60
--- NOTE | 2020-11-23 07:20 | Pulmonary Progress Note ---
Subjective Time Seen by a Provider: 07:17 Subjective/Events-last exam No complications noted. Sepsis Event Evaluation Height, Weight, BMI Height: '" Weight: lbs. oz. kg; 34.48 BMI Method: Exam Exam Vital Signs Date Time Temp Pulse Resp B/P (MAP) Pulse Ox O2 Delivery O2 Flow Rate FiO2 11/23/20 03:13 36.0 80 18 156/68 (97) 95 Nasal Cannula 2.00 11/23/20 01:00 93 11/22/20 23:28 36.1 91 20 186/84 (118) 92 Nasal Cannula 2.00 11/22/20 22:32 94 Nasal Cannula 2.00 11/22/20 21:00 Nasal Cannula 2.00 11/22/20 20:33 36.3 90 20 173/74 (107) 91 Nasal Cannula 2.00 11/22/20 19:00 93 11/22/20 17:30 Nasal Cannula 2.00 11/22/20 17:29 88 20 114/56 (75) 91 Nasal Cannula 2.00 11/22/20 17:00 74 9 97/69 (78) 97 Room Air 11/22/20 16:00 98 15 116/59 (78) 90 Room Air 11/22/20 15:33 Room Air 11/22/20 15:24 94 Nasal Cannula 1.00 11/22/20 15:17 36.7 11/22/20 15:00 101 29 119/50 (73) 96 Nasal Cannula 2.00 11/22/20 14:00 86 9 112/46 (68) 98 Nasal Cannula 2.00 11/22/20 13:00 102 11/22/20 13:00 67 10 96/41 (59) 94 Nasal Cannula 2.00 11/22/20 12:00 90 26 131/57 (81) 95 Nasal Cannula 2.00 11/22/20 11:00 92 20 124/55 (78) 94 Nasal Cannula 2.00 11/22/20 11:00 92 Nasal Cannula 1.00 11/22/20 10:00 90 16 148/58 (88) 96 Nasal Cannula 2.00 11/22/20 09:00 93 11 117/52 (73) 97 Nasal Cannula 2.00 11/22/20 09:00 97 Nasal Cannula 2.00 11/22/20 08:00 82 11 99/49 (66) 96 Nasal Cannula 2.00 I & O 11/23/20 07:00 Intake Total 10 ml Output Total 1899 ml Balance -1889 ml Height & Weight Height: '" Weight: lbs. oz. kg; 34.48 BMI Method: General Appearance: No Apparent Distress HEENT: PERRL/EOMI Neck: Full Range of Motion Respiratory: Decreased Breath Sounds, Rhonci, Wheezing Cardiovascular: Regular Rate, Rhythm Gastrointestinal: soft, tenderness Extremity: Normal Capillary Refill Neurologic/Psychiatric: Alert, Disoriented Skin: Normal Color Lymphatic: No Adenopathy Results Lab Laboratory Tests 11/22/20 03:19 11/23/20 05:40 Assessment/Plan Assessment/Plan Acute respiratory failure s/p surgery - now resolved -Pt was admitted on 10/31 for hemicolectomy. -S/p Extubation S/p multiple surgeries last surgery was 11/15 s/p revision of iliostomy/hemicolectomy with colostomy -Surgery is following Sepsis with abdominal abscess - Merrem,and Eraxis -Currently on TPN per surgery Hypernatremia -- -Monitor -pharmacy decreased Na in TPN Agitation/aggressive behavior -Haldol PRN -Pain control HTN -Vasotec Anemia -monitor S/p hemicolectomy secondary to Colon cancer then ileostomy secondary to torsion. then repeat surgery secondary to persistent intraabdominal sepsis. Debility HX of COPD with oxygen dependance at home Tobacco dependance anemia s/p 4 units of PRBC GIOVANNA BORREGO DO Nov 23, 2020 07:20
[2020-11-23 08:00] VITALS: BP 151/65
[2020-11-23] MEDS: NICOTINE 14 MG (NICODERM) PATCH TD SCH (09:01)
[2020-11-23] MEDS: PANTOPRAZOLE 40 MG (PROTONIX) VIAL IV SCH (09:01)
[2020-11-23] MEDS: NICOTINE PATCH REMOVAL TP SCH (09:02)
[2020-11-23] MEDS: METOCLOPRAMIDE INJ 10 MG/2 ML (REGLAN) IVP SCH ×2 (09:05→19:57)
[2020-11-23] MEDS: ANIDULAFUNGIN INJECTION 100 MG in NS (IVPB) 100 ML IV SCH (09:05)
[2020-11-23] MEDS: ENALAPRILAT 2.5 MG/2 ML (VASOTEC) VIAL IV SCH ×2 (09:06→19:56)
[2020-11-23] MEDS: meTOproloL SUCCINATE 50 MG (TOPROL XL) TAB PO SCH (09:08)
[2020-11-23] MEDS: RT-ALBUTEROL/IPRATROPIUM 3 ML (DUONEB) VIAL INH SCH ×3 (10:20→18:58)
--- NOTE | 2020-11-23 10:41 | Cardiology Progress Note ---
Subjective Date Seen by Provider: Nov 23, 2020 Time Seen by Provider: 10:40 Subjective/Events-last exam Patient was seen and evaluated, confused, pulled out her IV and Lam catheter. Review of Systems General: Other (unable to provide review of systems) Objective-Cardiology Exam Last Set of Vital Signs Vital Signs 11/19/20 11/23/20 11/23/20 11:09 08:00 10:20 Temp 35.6 Pulse 70 Resp 24 B/P (MAP) 151/65 (93) Pulse Ox 93 O2 Delivery High Flow N/C O2 Flow Rate 15.00 FiO2 35 Capillary Refill : Less Than 3 Seconds I&O Intake and Output 11/23/20 00:00 Intake Total 10 ml Output Total 1604 ml Balance -1594 ml IV Total 10 ml Output Urine Total 1310 ml Drainage Total 294 ml General: Alert, Mild Distress, Other (confused) HEENT: Atraumatic Neck: Supple, No JVD, No Thyromegaly Lungs: Normal Air Movement, Other (bilateral rhonchi) Heart: Regular Rate, Normal S1, Normal S2, No Murmurs Abdomen: Other (hyperactive bowel sounds) Extremities: No Clubbing, No Cyanosis, No Edema, Normal Pulses, No Tenderness/Swelling Skin: No Rashes, No Breakdown, No Significant Lesion Neuro: Other (not following commands) Psych/Mental Status: Other (not following commands) Results Lab Laboratory Tests 11/23/20 05:40 A/P-Cardiology Admission Diagnosis Acute respiratory failure Sinus tachycardia Hypertension Hyperlipidemia Assessment/Plan Status post acute respiratory failure, extubated on November 18, 2020, improving slowly. Still having some shortness of breath, Managed by primary care team Confusion, delirium, waxing and waning, was better in the morning deteriorated later today. Managed by primary care team Anemia, continue to monitor H&H Status post extended right hemicolectomy and ileostomy revision for ileostomy, had her wound VAC replaced, appeared to be feeling better today. Managed by primary care team COPD, followed and managed by primary care physician Sinus tachycardia, secondary to hypoxia, and anemia, started on low-dose beta blockers. Continue to monitor Hypertension, monitor blood pressure Hyperlipidemia monitor lipids Clinical Quality Measures DVT/VTE Risk/Contraindication: Risk Factor Score Per Nursin MAYUR CANNON MD Nov 23, 2020 10:41 am
--- NOTE | 2020-11-23 11:24 | Progress Note ---
Subjective Date Seen by a Provider: Nov 23, 2020 Time Seen by a Provider: 11:00 Subjective/Events-last exam doing ok. confusion improving. more ileostomy output. no fever/chills. wbc normal Objective Exam Vital Signs Date Time Temp Pulse Resp B/P (MAP) Pulse Ox O2 Delivery O2 Flow Rate FiO2 11/23/20 10:20 93 High Flow N/C 15.00 11/23/20 08:00 93 Nasal Cannula 3.00 11/23/20 08:00 35.6 70 24 151/65 (93) 93 Nasal Cannula 2.00 11/23/20 07:00 93 11/23/20 03:13 36.0 80 18 156/68 (97) 95 Nasal Cannula 2.00 11/23/20 01:00 93 11/22/20 23:28 36.1 91 20 186/84 (118) 92 Nasal Cannula 2.00 11/22/20 22:32 94 Nasal Cannula 2.00 11/22/20 21:00 Nasal Cannula 2.00 11/22/20 20:33 36.3 90 20 173/74 (107) 91 Nasal Cannula 2.00 11/22/20 19:00 93 11/22/20 17:30 Nasal Cannula 2.00 11/22/20 17:29 88 20 114/56 (75) 91 Nasal Cannula 2.00 11/22/20 17:00 74 9 97/69 (78) 97 Room Air 11/22/20 16:00 98 15 116/59 (78) 90 Room Air 11/22/20 15:33 Room Air 11/22/20 15:24 94 Nasal Cannula 1.00 11/22/20 15:17 36.7 11/22/20 15:00 101 29 119/50 (73) 96 Nasal Cannula 2.00 11/22/20 14:00 86 9 112/46 (68) 98 Nasal Cannula 2.00 11/22/20 13:00 102 11/22/20 13:00 67 10 96/41 (59) 94 Nasal Cannula 2.00 11/22/20 12:00 90 26 131/57 (81) 95 Nasal Cannula 2.00 I & O 11/23/20 07:00 Intake Total 10 ml Output Total 1899 ml Balance -1889 ml Capillary Refill : Less Than 3 Seconds General Appearance: No Apparent Distress HEENT: PERRL/EOMI Neck: Full Range of Motion Respiratory: Decreased Breath Sounds Cardiovascular: Regular Rate, Rhythm Gastrointestinal: normal bowel sounds, soft, tenderness Extremity: Normal Capillary Refill Neurologic/Psychiatric: Alert Skin: Normal Color Lymphatic: No Adenopathy Results Lab Laboratory Tests 11/22/20 17:15: Glucometer 121H 11/22/20 23:26: Glucometer 131H 11/23/20 05:28: Glucometer 175H 11/23/20 05:40: White Blood Count 8.0, Red Blood Count 2.40L, Hemoglobin 7.1L, Hematocrit 23L, Mean Corpuscular Volume 94, Mean Corpuscular Hemoglobin 30, Mean Corpuscular Hemoglobin Concent 31L, Red Cell Distribution Width 16.7H, Platelet Count 210, Mean Platelet Volume 11.3, Immature Granulocyte % (Auto) 3, Neutrophils (%) (Auto) 81H, Lymphocytes (%) (Auto) 9L, Monocytes (%) (Auto) 6, Eosinophils (%) (Auto) 1, Basophils (%) (Auto) 0, Neutrophils # (Auto) 6.4, Lymphocytes # (Auto) 0.8L, Monocytes # (Auto) 0.5, Eosinophils # (Auto) 0.0, Basophils # (Auto) 0.0, Immature Granulocyte # (Auto) 0.2H, Sodium Level 146H, Potassium Level 4.3, Chloride Level 112H, Carbon Dioxide Level 25, Anion Gap 9, Blood Urea Nitrogen 43H, Creatinine 0.88, Estimat Glomerular Filtration Rate > 60, BUN/Creatinine Ratio 49, Glucose Level 135H, Calcium Level 8.0L, Corrected Calcium 9.6, Phosphorus Level 3.9, Magnesium Level 1.9, Total Bilirubin 0.6, Aspartate Amino Transf (AST/SGOT) 39H, Alanine Aminotransferase (ALT/SGPT) 23, Alkaline Phosph atase 362H, Total Protein 5.1L, Albumin 2.0L Microbiology 11/16/20 MRSA Screen - Final, Complete MRSA not isolated 11/15/20 Gram Stain - Final, Resulted 11/15/20 Anaerobic Culture - Final, Resulted No anaerobes isolated 11/15/20 Surgical Culture - Final, Resulted Bobbi glabrata Bobbi species 11/15/20 Fungal Culture 1 - Preliminary, Resulted Bobbi glabrata Bobbi species Assessment/Plan Assessment/Plan Assess & Plan/Chief Complaint s/p extended right hemicolectomy, end ileostomy, mucous fistula, revision ileostomy, drainage intraabd abscess and VAC placement. will change vac about every 5 days. start a carbapenem. cont TPN transfuse PRBC await for more ileostomy output which will be slow. start clear liquid diet. Clinical Quality Measures DVT/VTE Risk/Contraindication: Risk Factor Score Per Nursin MICHAEL XIONG MD Nov 23, 2020 11:24
[2020-11-23] MEDS: fentaNYL PATCH 25 MCG (DURAGESIC) TD SCH (11:33)
[2020-11-23] MEDS: FENTANYL PATCH REMOVAL TP SCH (11:35)
[2020-11-23 12:00] VITALS: BP 190/102
[2020-11-23] MEDS: ENALAPRILAT 2.5 MG/2 ML (VASOTEC) VIAL IV PRN (12:22)
--- NOTE | 2020-11-23 13:02 | Progress Note - Hospitalist ---
Subjective HPI/CC On Admission Date Seen by Provider: Nov 23, 2020 Time Seen by Provider: 11:00 CC: VDRF following surgery for abscess and ileostomy ischemia HPI: This is a 75yoWF clinic patient of Dr Ba who presents to the ICU following urgent surgery following failure on IRF due to sepsis and elevated wbc. Patient was assessed to have ileostomy ischemia and abscess. Patient is currently on Cipro, Flagyl, Vanc, Kinga and Diflucan. Patient has a h/o colon cancer s/p resection 2 weeks ago and I was consulted for AECOPD due to long smoking hx and severe anemia s/p transfusion and resolution of hyponatremia. She had a complication of torsion requiring diverting ileostomy and she became strong enough to go to IRF but only lasted 2 days before she decompensated. Currently she remains intubated and critically ill. Subjective/Events-last exam Patient very debilitated Pulled out her central line TPN still required Overall stable Review of Systems Neurological: Confusion Objective Exam Vital Signs Vital Signs Date Time Temp Pulse Resp B/P (MAP) Pulse Ox O2 Delivery O2 Flow Rate FiO2 11/24/20 06:05 98 186/86 (119) 11/24/20 04:00 36.2 16 94 Nasal Cannula 3.00 11/19/20 11:09 35 Capillary Refill : Less Than 3 Seconds General Appearance: No Apparent Distress, WD/WN, Chronically ill Respiratory: No Accessory Muscle Use, No Respiratory Distress, Decreased Breath Sounds Cardiovascular: Regular Rate, Rhythm, No Edema, No Gallop, No JVD, No Murmur, Normal Peripheral Pulses Neurologic/Psychiatric: Alert, Oriented x3, No Motor/Sensory Deficits, Normal Mood/Affect, Disoriented Results/Procedures Lab Laboratory Tests 11/24/20 05:35 Patient resulted labs reviewed. Assessment/Plan Assessment and Plan Assess & Plan/Chief Complaint Guarded prognosis Assessment: Colon cancer Bowel resection with diverting ileostomy Psychosis Anemia requiring transfusion Severe [place] Abdominal pain Hyponatremia Plan: 4th floor move Monitor closely 11/23/20: TPN Replace CL Monitor closely Diagnosis/Problems Diagnosis/Problems (1) Ileus following gastrointestinal surgery (2) Presbycusis of both ears (3) Ileostomy in place (4) Anemia due to acute blood loss (5) Colon cancer (6) Myopathy (7) Hyponatremia (8) COPD (chronic obstructive pulmonary disease) (9) S/P right hemicolectomy Clinical Quality Measures DVT/VTE Risk/Contraindication: Risk Factor Score Per Nursin WILFREDO MARTÍNEZ DO Nov 23, 2020 13:02
[2020-11-23 15:32] VITALS: BP 165/81
[2020-11-23] MEDS ORDERED: [UNRECOGNIZED DRUG - OTHER] IV SCH ×9 (17:00)
[2020-11-23] MEDS ORDERED: POTASSIUM ACETATE IV SCH ×9 (17:00)
[2020-11-23] MEDS ORDERED: POTASSIUM PHOSPHATE IV SCH ×9 (17:00)
[2020-11-23 19:30] VITALS: BP 154/81
[2020-11-23] MEDS: ENOXAPARIN 40 MG/0.4 ML (LOVENOX) SYR SC SCH (19:57)
[2020-11-24] VITALS (7 sets, daily range): BP systolic 142–208; BP diastolic 72–91
[2020-11-24] MEDS: D5 LR IV SOLUTION 1,000 ML IV SCH ×3 (00:08→17:49)
[2020-11-24] MEDS: meTOprolol 5 MG/5 ML (LOPRESSOR) VIAL IV SCH ×5 (00:08→23:50)
[2020-11-24] MEDS: inSUlin ASPART (NovoLOG) 1 UNIT/0.01 ML (CHARGE PER UNIT) SQ SCH ×4 (00:10→18:01)
[2020-11-24] MEDS: MEROPENEM 500 MG in WATER (STERILE) FOR INJECTION 10 ML IV SCH ×3 (03:10→17:49)
[2020-11-24] MEDS: diphenhydrAMINE 25 MG TAB (BENADRYL) PO PRN (04:04)
[2020-11-24] MEDS: ENALAPRILAT 2.5 MG/2 ML (VASOTEC) VIAL IV PRN (04:16)
[2020-11-24] MEDS: fentaNYL INJECTION 100 MCG/2 ML AMP IVP PRN (04:22)
[2020-11-24 05:46] LABS: BASOPHILS % (AUTO) 0 % (0-10); EOSINOPHILS % (AUTO) 1 % (0-10); HEMATOCRIT 23 % (35-52); HEMOGLOBIN 7.1 g/dL (11.5-16.0); LYMPHOCYTES # (AUTO) 0.6 10^3/uL (1.0-4.0); LYMPHOCYTES % (AUTO) 9 % (12-44); MEAN CORPUSCULAR HEMOGLOBIN 30 pg (25-34); MEAN CORPUSCULAR HGB CONC 31 g/dL (32-36); MEAN CORPUSCULAR VOLUME 95 fL (80-99); MEAN PLATELET VOLUME 10.8 fL (9.0-12.2); MONOCYTES # (AUTO) 0.5 10^3/uL (0.0-1.0); MONOCYTES % (AUTO) 7 % (0-12); NEUTROPHILS # (AUTO) 5.1 10^3/uL (1.8-7.8); NEUTROPHILS % (AUTO) 81 % (42-75); PLATELET COUNT 184 10^3/uL (130-400); WHITE BLOOD COUNT 6.4 10^3/uL (4.3-11.0)
[2020-11-24 06:10] LABS: CHLORIDE 114 MMOL/L (98-107); POTASSIUM 4.2 MMOL/L (3.6-5.0); SODIUM 146 MMOL/L (135-145)
[2020-11-24 06:11] LABS: GLUCOSE 132 MG/DL (70-105)
[2020-11-24 06:13] LABS: CARBON DIOXIDE 23 MMOL/L (21-32)
[2020-11-24 06:15] LABS: CREATININE SERUM 0.84 MG/DL (0.60-1.30); GFR ESTIMATED > 60; PHOSPHORUS 3.8 MG/DL (2.3-4.7)
[2020-11-24 06:16] LABS: BUN/CREATININE RATIO 43
[2020-11-24 06:18] LABS: MAGNESIUM 1.9 MG/DL (1.6-2.4)
[2020-11-24] MEDS: RT-ALBUTEROL/IPRATROPIUM 3 ML (DUONEB) VIAL INH SCH ×3 (07:54→19:23)
[2020-11-24] MEDS: ANIDULAFUNGIN INJECTION 100 MG in NS (IVPB) 100 ML IV SCH (08:52)
[2020-11-24] MEDS: ENALAPRILAT 2.5 MG/2 ML (VASOTEC) VIAL IV SCH ×2 (08:53→20:31)
[2020-11-24] MEDS: PANTOPRAZOLE 40 MG (PROTONIX) VIAL IV SCH (08:54)
[2020-11-24] MEDS: METOCLOPRAMIDE INJ 10 MG/2 ML (REGLAN) IVP SCH ×2 (08:56→20:32)
[2020-11-24] MEDS: NICOTINE 14 MG (NICODERM) PATCH TD SCH (08:57)
[2020-11-24] MEDS: meTOproloL SUCCINATE 50 MG (TOPROL XL) TAB PO SCH (08:57)
[2020-11-24] MEDS: NICOTINE PATCH REMOVAL TP SCH (08:59)
--- NOTE | 2020-11-24 10:06 | Progress Note ---
Subjective Date Seen by a Provider: Nov 24, 2020 Time Seen by a Provider: 10:00 Subjective/Events-last exam doing ok. tolerating clears. ileostomy functional. pain controlled. no fever/chills. Objective Exam Vital Signs Date Time Temp Pulse Resp B/P (MAP) Pulse Ox O2 Delivery O2 Flow Rate FiO2 11/24/20 08:00 36.1 88 28 142/82 (102) 90 Nasal Cannula 3.00 11/24/20 07:54 93 High Flow N/C 3.00 11/24/20 07:00 96 11/24/20 06:05 98 186/86 (119) 11/24/20 04:00 36.2 111 16 206/84 (124) 94 Nasal Cannula 3.00 11/24/20 01:00 80 11/24/20 00:05 36.2 96 22 188/82 (117) 96 Nasal Cannula 3.00 11/23/20 20:00 Nasal Cannula 2.00 11/23/20 19:30 36.5 90 20 154/81 (105) 98 Nasal Cannula 3.00 11/23/20 19:00 75 11/23/20 18:58 95 High Flow N/C 3.00 11/23/20 15:32 36.5 89 20 165/81 (109) 98 Nasal Cannula 3.00 11/23/20 15:10 93 High Flow N/C 3.00 11/23/20 13:00 81 11/23/20 12:00 36.1 105 24 190/102 (131) 94 Nasal Cannula 2.00 11/23/20 10:20 93 High Flow N/C 15.00 I & O 11/24/20 07:00 Intake Total 325 ml Output Total 1645 ml Balance -1320 ml Capillary Refill : Less Than 3 Seconds General Appearance: No Apparent Distress HEENT: PERRL/EOMI Neck: Full Range of Motion Respiratory: Decreased Breath Sounds, Wheezing Cardiovascular: Regular Rate, Rhythm Gastrointestinal: soft, tenderness Extremity: Normal Capillary Refill Neurologic/Psychiatric: Alert Skin: Normal Color Lymphatic: No Adenopathy Results Lab Laboratory Tests 11/23/20 12:05: Glucometer 121H 11/23/20 17:45: Glucometer 121H 11/24/20 00:10: Glucometer 101 11/24/20 05:35: White Blood Count 6.4, Red Blood Count 2.39L, Hemoglobin 7.1L, Hematocrit 23L, Mean Corpuscular Volume 95, Mean Corpuscular Hemoglobin 30, Mean Corpuscular Hemoglobin Concent 31L, Red Cell Distribution Width 16.4H, Platelet Count 184, Mean Platelet Volume 10.8, Immature Granulocyte % (Auto) 2, Neutrophils (%) (Auto) 81H, Lymphocytes (%) (Auto) 9L, Monocytes (%) (Auto) 7, Eosinophils (%) (Auto) 1, Basophils (%) (Auto) 0, Neutrophils # (Auto) 5.1, Lymphocytes # (Auto) 0.6L, Monocytes # (Auto) 0.5, Eosinophils # (Auto) 0.0, Basophils # (Auto) 0.0, Immature Granulocyte # (Auto) 0.1, Sodium Level 146H, Potassium Level 4.2, Chloride Level 114H, Carbon Dioxide Level 23, Anion Gap 9, Blood Urea Nitrogen 36H, Creatinine 0.84, Estimat Glomerular Filtration Rate > 60, BUN/Creatinine Ratio 43, Glucose Level 132H, Calcium Level 8.0L, Phosphorus Level 3.8, Magnes ium Level 1.9 Microbiology 11/16/20 MRSA Screen - Final, Complete MRSA not isolated 11/15/20 Gram Stain - Final, Resulted 11/15/20 Anaerobic Culture - Final, Resulted No anaerobes isolated 11/15/20 Surgical Culture - Final, Resulted Bobbi glabrata Bobbi species 11/15/20 Fungal Culture 1 - Preliminary, Resulted Bobbi glabrata Bobbi species Assessment/Plan Assessment/Plan Assess & Plan/Chief Complaint s/p extended right hemicolectomy, end ileostomy, mucous fistula, revision ileostomy, drainage intraabd abscess and VAC placement. will change vac about every 5 days. start a carbapenem. cont TPN transfuse PRBC. advance to dys3 diet. Clinical Quality Measures DVT/VTE Risk/Contraindication: Risk Factor Score Per Nursin MICHAEL XIONG MD Nov 24, 2020 10:06
--- NOTE | 2020-11-24 11:29 | Cardiology Progress Note ---
Subjective Date Seen by Provider: Nov 24, 2020 Time Seen by Provider: 11:28 Subjective/Events-last exam Patient is more awake, feeling better today Review of Systems General: No Chills, No Night Sweats; Fatigue, Malaise; No Appetite, No Other HEENT: No Head Aches, No Visual Changes, No Eye Pain, No Ear Pain, No Dysphasia, No Sinus Congestion, No Post Nasal Drip, No Sore Throat, No Other Pulmonary: No Dyspnea, No Cough, No Pleuritic Chest Pain, No Other Cardiovascular: No: Chest Pain, Palpitations, Orthopnea, Paroxysmal Noc. Dyspnea, Edema, Lt Headedness, Other Objective-Cardiology Exam Last Set of Vital Signs Vital Signs 11/19/20 11/24/20 11/24/20 11:09 08:00 09:00 Temp 36.1 Pulse 88 Resp 28 B/P (MAP) 142/82 (102) Pulse Ox 90 O2 Delivery Nasal Cannula O2 Flow Rate 3.00 FiO2 35 Capillary Refill : Less Than 3 Seconds I&O Intake and Output 11/24/20 00:00 Intake Total 25 ml Output Total 1785 ml Balance -1760 ml Intake Oral 25 ml Output Urine Total 1225 ml Stool Total 100 ml Drainage Total 460 ml General: Alert, Oriented X3, Cooperative, Mild Distress, Other (confused) HEENT: Atraumatic Neck: Supple, No JVD, No Thyromegaly Lungs: Clear to Auscultation, Normal Air Movement Heart: Regular Rate, Normal S1, Normal S2, No Murmurs Abdomen: Other (hyperactive bowel sounds) Extremities: No Clubbing, No Cyanosis, No Edema, Normal Pulses, No Tenderness/Swelling Skin: No Rashes, No Breakdown, No Significant Lesion Neuro: Other (not following commands) Psych/Mental Status: Other (not following commands) Results Lab Laboratory Tests 11/24/20 05:35 A/P-Cardiology Admission Diagnosis Acute respiratory failure Sinus tachycardia Hypertension Hyperlipidemia Assessment/Plan Status post acute respiratory failure, extubated on November 18, 2020, improving slowly. Still having some shortness of breath, Managed by primary care team Confusion, delirium, waxing and waning, she is better on my evaluation, oriented and feeling significantly better. Continue to monitor Anemia, continue to monitor H&H Status post extended right hemicolectomy and ileostomy revision for ileostomy, had her wound VAC replaced, appeared to be feeling better today. Managed by primary care team COPD, followed and managed by primary care physician Sinus tachycardia, secondary to hypoxia, and anemia, started on low-dose beta blockers. Continue to monitor Hypertension, monitor blood pressure Hyperlipidemia monitor lipids Clinical Quality Measures DVT/VTE Risk/Contraindication: Risk Factor Score Per Nursin MAYUR CANNON MD Nov 24, 2020 11:28
--- NOTE | 2020-11-24 12:31 | Progress Note - Hospitalist ---
Subjective HPI/CC On Admission Date Seen by Provider: Nov 24, 2020 Time Seen by Provider: 11:30 CC: VDRF following surgery for abscess and ileostomy ischemia HPI: This is a 75yoWF clinic patient of Dr Ba who presents to the ICU following urgent surgery following failure on IRF due to sepsis and elevated wbc. Patient was assessed to have ileostomy ischemia and abscess. Patient is currently on Cipro, Flagyl, Vanc, Kinga and Diflucan. Patient has a h/o colon cancer s/p resection 2 weeks ago and I was consulted for AECOPD due to long smoking hx and severe anemia s/p transfusion and resolution of hyponatremia. She had a complication of torsion requiring diverting ileostomy and she became strong enough to go to IRF but only lasted 2 days before she decompensated. Currently she remains intubated and critically ill. Subjective/Events-last exam Very weak Up in chair Duoneb TID Overall appears improved Long recovery expected Review of Systems General: Fatigue, Malaise Pulmonary: Dyspnea Objective Exam Vital Signs Vital Signs Date Time Temp Pulse Resp B/P (MAP) Pulse Ox O2 Delivery O2 Flow Rate FiO2 11/24/20 19:23 95 Vapotherm 25.00 35 11/24/20 15:49 36.0 80 18 175/74 (107) Capillary Refill : Less Than 3 Seconds General Appearance: No Apparent Distress, WD/WN, Chronically ill Respiratory: Chest Non Tender, Lungs Clear, Normal Breath Sounds, No Accessory Muscle Use, No Respiratory Distress Cardiovascular: Regular Rate, Rhythm, No Edema, No Gallop, No JVD, No Murmur, Normal Peripheral Pulses Neurologic/Psychiatric: Alert, Oriented x3, No Motor/Sensory Deficits, Normal Mood/Affect Results/Procedures Lab Laboratory Tests 11/24/20 05:35 Patient resulted labs reviewed. Assessment/Plan Assessment and Plan Assess & Plan/Chief Complaint Guarded prognosis Assessment: Colon cancer Bowel resection with diverting ileostomy Psychosis Anemia requiring transfusion Severe [place] Abdominal pain Hyponatremia Plan: 4th floor move Monitor closely 11/23/20: TPN Replace CL Monitor closely 11/24/20: Monitor closely TPN Diagnosis/Problems Diagnosis/Problems (1) Ileus following gastrointestinal surgery (2) Presbycusis of both ears (3) Ileostomy in place (4) Anemia due to acute blood loss (5) Colon cancer (6) Myopathy (7) Hyponatremia (8) COPD (chronic obstructive pulmonary disease) (9) S/P right hemicolectomy Clinical Quality Measures DVT/VTE Risk/Contraindication: Risk Factor Score Per Nursin WILFREDO MARTÍNEZ DO Nov 24, 2020 12:31
[2020-11-24] MEDS: diphenhydrAMINE 50 MG/ML INJ (BENADRYL) IV PRN (20:32)
[2020-11-24] MEDS: MELATONIN 3 MG TABLET PO PRN (20:33)
[2020-11-24] MEDS: ENOXAPARIN 40 MG/0.4 ML (LOVENOX) SYR SC SCH (20:33)
[2020-11-24] MEDS ORDERED: RT-ALBUTEROL/IPRATROPIUM 3 ML (DUONEB) VIAL INH SCH (21:00)
[2020-11-25] VITALS (23 sets, daily range): BP systolic 106–234; BP diastolic 50–111
[2020-11-25] MEDS: HYDROmorphone 2 MG/ML VIAL (DILAUDID) IV PRN (00:21)
[2020-11-25] MEDS: MEROPENEM 500 MG in WATER (STERILE) FOR INJECTION 10 ML IV SCH ×3 (03:14→18:34)
[2020-11-25] MEDS: meTOprolol 5 MG/5 ML (LOPRESSOR) VIAL IV SCH (05:21)
[2020-11-25] MEDS: D5 LR IV SOLUTION 1,000 ML IV SCH (05:21)
[2020-11-25 06:48] LABS: BASOPHILS # (AUTO) 0.1 10^3/uL (0.0-0.1); BASOPHILS % (AUTO) 1 % (0-10); EOSINOPHILS # (AUTO) 0.2 10^3/uL (0.0-0.3); EOSINOPHILS % (AUTO) 3 % (0-10); HEMATOCRIT 28 % (35-52); HEMOGLOBIN 8.6 g/dL (11.5-16.0); LYMPHOCYTES # (AUTO) 1.2 10^3/uL (1.0-4.0); LYMPHOCYTES % (AUTO) 16 % (12-44); MEAN CORPUSCULAR HEMOGLOBIN 26 pg (25-34); MEAN CORPUSCULAR HGB CONC 31 g/dL (32-36); MEAN CORPUSCULAR VOLUME 82 fL (80-99); MEAN PLATELET VOLUME 9.3 fL (9.0-12.2); MONOCYTES # (AUTO) 0.7 10^3/uL (0.0-1.0); MONOCYTES % (AUTO) 9 % (0-12); NEUTROPHILS # (AUTO) 5.4 10^3/uL (1.8-7.8); NEUTROPHILS % (AUTO) 71 % (42-75); PLATELET COUNT 294 10^3/uL (130-400); WHITE BLOOD COUNT 7.7 10^3/uL (4.3-11.0)
[2020-11-25 06:56] LABS: CHLORIDE 113 MMOL/L (98-107); SODIUM 145 MMOL/L (135-145)
[2020-11-25 06:57] LABS: CALCIUM 7.7 MG/DL (8.5-10.1)
[2020-11-25 06:58] LABS: GLUCOSE 135 MG/DL (70-105)
[2020-11-25 06:59] LABS: CARBON DIOXIDE 25 MMOL/L (21-32)
[2020-11-25 07:01] LABS: CREATININE SERUM 0.79 MG/DL (0.60-1.30); GFR ESTIMATED > 60; PHOSPHORUS 3.7 MG/DL (2.3-4.7)
[2020-11-25 07:02] LABS: BUN/CREATININE RATIO 37
[2020-11-25 07:04] LABS: MAGNESIUM 1.6 MG/DL (1.6-2.4)
[2020-11-25] MEDS: RT-ALBUTEROL/IPRATROPIUM 3 ML (DUONEB) VIAL INH SCH ×3 (07:33→22:00)
[2020-11-25] MEDS: PANTOPRAZOLE 40 MG (PROTONIX) VIAL IV SCH ×2 (08:19→20:31)
[2020-11-25] MEDS: METOCLOPRAMIDE INJ 10 MG/2 ML (REGLAN) IVP SCH ×2 (08:20→20:31)
[2020-11-25] MEDS: ANIDULAFUNGIN INJECTION 100 MG in NS (IVPB) 100 ML IV SCH (08:28)
[2020-11-25] MEDS: ENALAPRILAT 2.5 MG/2 ML (VASOTEC) VIAL IV SCH (08:28)
[2020-11-25] MEDS: NICOTINE 14 MG (NICODERM) PATCH TD SCH (08:29)
[2020-11-25] MEDS: meTOproloL SUCCINATE 50 MG (TOPROL XL) TAB PO SCH (08:33)
--- NOTE | 2020-11-25 09:12 | Pulmonary Progress Note ---
Subjective Time Seen by a Provider: 09:10 Subjective/Events-last exam No complications noted. Sepsis Event Evaluation Height, Weight, BMI Height: '" Weight: lbs. oz. kg; 34.48 BMI Method: Exam Exam Vital Signs Date Time Temp Pulse Resp B/P (MAP) Pulse Ox O2 Delivery O2 Flow Rate FiO2 11/25/20 08:46 80 28 191/84 (119) 96 11/25/20 08:25 80 166/74 (104) 11/25/20 07:33 96 Vapotherm 30.00 35 11/25/20 04:00 35.9 75 20 149/67 (94) 98 Vapotherm 35.00 35.00 11/25/20 01:00 71 11/25/20 00:25 36.0 86 21 192/75 (114) 95 Vapotherm 35.00 35.00 11/24/20 20:22 36.0 97 24 208/91 (130) 97 Vapotherm 30.00 35.00 11/24/20 20:17 Vapotherm 35.00 35 11/24/20 19:23 95 Vapotherm 25.00 35 11/24/20 19:00 101 11/24/20 15:49 36.0 80 18 175/74 (107) 99 Vapotherm 30.00 55.00 11/24/20 14:57 Vapotherm 25.00 55 11/24/20 14:46 86 High Flow N/C 3.00 11/24/20 13:00 90 11/24/20 12:00 36.1 91 20 175/72 (106) 94 Nasal Cannula 2.50 I & O 11/25/20 07:00 Intake Total 1190 ml Output Total 1869 ml Balance -679 ml Height & Weight Height: '" Weight: lbs. oz. kg; 34.48 BMI Method: General Appearance: No Apparent Distress, WD/WN, Chronically ill HEENT: PERRL/EOMI Neck: Full Range of Motion Respiratory: Chest Non Tender, Lungs Clear, Normal Breath Sounds, No Accessory Muscle Use, No Respiratory Distress Cardiovascular: Regular Rate, Rhythm, No Edema, No Gallop, No JVD, No Murmur, Normal Peripheral Pulses Gastrointestinal: soft, tenderness Extremity: Normal Capillary Refill Neurologic/Psychiatric: Alert, Oriented x3, No Motor/Sensory Deficits, Normal Mood/Affect Skin: Normal Color Lymphatic: No Adenopathy Results Lab Laboratory Tests 11/24/20 05:35 11/25/20 06:31 Assessment/Plan Assessment/Plan Acute respiratory failure s/p surgery - now resolved -Pt was admitted on 10/31 for hemicolectomy. -S/p Extubation S/p multiple surgeries last surgery was 11/15 s/p revision of iliostomy/hemicolectomy with colostomy -Surgery is following Sepsis with abdominal abscess - Merrem,and Eraxis Agitation/aggressive behavior -Haldol PRN -Pain control HTN -Vasotec Anemia -monitor S/p hemicolectomy secondary to Colon cancer then ileostomy secondary to torsion. then repeat surgery secondary to persistent intraabdominal sepsis. Debility HX of COPD with oxygen dependance at home Tobacco dependance anemia s/p 4 units of PRBC GIOVANNA BORREGO DO Nov 25, 2020 09:12
[2020-11-25] MEDS: NICOTINE PATCH REMOVAL TP SCH (09:25)
--- NOTE | 2020-11-25 10:14 | Progress Note ---
Subjective Date Seen by a Provider: Nov 25, 2020 Time Seen by a Provider: 09:30 Subjective/Events-last exam Pt now on Vapotherm Overall feels really good Heplocking IV fluid that was going at 150 CCs per hour No longer on TPN Had an episode of SOB and Pt was managed by Dr. Moreno Moved to ICU Review of Systems General: Fatigue, Malaise Pulmonary: Dyspnea Neurological: Weakness, Incoordination Objective Exam Last Set of Vital Signs Vital Signs Date Time Temp Pulse Resp B/P (MAP) Pulse Ox O2 Delivery O2 Flow Rate FiO2 11/25/20 08:46 80 28 191/84 (119) 96 11/25/20 07:33 Vapotherm 30.00 35 11/25/20 04:00 35.9 Capillary Refill : Less Than 3 Seconds I&O Intake and Output 11/25/20 00:00 Intake Total 1440 ml Output Total 2119 ml Balance -679 ml Intake Oral 1440 ml Output Urine Total 1324 ml Stool Total 300 ml Drainage Total 495 ml # Bowel Movements 3 General: Alert, Oriented X3, Cooperative, No Acute Distress Lungs: Clear to Auscultation Heart: Regular Rate Results Lab Laboratory Tests 11/24/20 12:28: Glucometer 138H 11/25/20 06:31: White Blood Count 7.7, Red Blood Count 3.35L, Hemoglobin 8.6#L, Hematocrit 28L, Mean Corpuscular Volume 82, Mean Corpuscular Hemoglobin 26, Mean Corpuscular Hemoglobin Concent 31L, Red Cell Distribution Width 16.5H, Platelet Count 294, Mean Platelet Volume 9.3, Immature Granulocyte % (Auto) 1, Neutrophils (%) (Auto) 71, Lymphocytes (%) (Auto) 16, Monocytes (%) (Auto) 9, Eosinophils (%) (Auto) 3, Basophils (%) (Auto) 1, Neutrophils # (Auto) 5.4, Lymphocytes # (Auto) 1.2, Monocytes # (Auto) 0.7, Eosinophils # (Auto) 0.2, Basophils # (Auto) 0.1, Immature Granulocyte # (Auto) 0.1, Sodium Level 145, Potassium Level 4.0, Chloride Level 113H, Carbon Dioxide Level 25, Anion Gap 7, Blood Urea Nitrogen 29H, Creatinine 0.79, Estimat Glomerular Filtration Rate > 60, BUN/Creatinine Ratio 37, Glucose Level 135H, Calcium Level 7.7L, Phosphorus Level 3.7, Magnesium Level 1.6 Microbiology 11/16/20 MRSA Screen - Final, Complete MRSA not isolated 11/15/20 Gram Stain - Final, Resulted 11/15/20 Anaerobic Culture - Final, Resulted No anaerobes isolated 11/15/20 Surgical Culture - Final, Resulted Bobbi glabrata Bobbi species 11/15/20 Fungal Culture 1 - Preliminary, Resulted Bobbi glabrata Bobbi species Assessment/Plan Assessment/Plan Assess & Plan/Chief Complaint Assessment: Acute respiratory insufficiency requiring ICU transfer 11/25/20 Colon cancer Bowel resection with diverting ileostomy Psychosis Anemia requiring transfusion Severe [place] Abdominal pain Hyponatremia Plan: 4th floor move Monitor closely 11/23/20: TPN Replace CL Monitor closely 11/24/20: Monitor closely TPN 11/25/20: Move to ICU Hakeem closely Appreciate Dr Moreno Diagnosis/Problems Diagnosis/Problems (1) Ileus following gastrointestinal surgery (2) Presbycusis of both ears (3) Ileostomy in place (4) Anemia due to acute blood loss (5) Colon cancer (6) Myopathy (7) Hyponatremia (8) COPD (chronic obstructive pulmonary disease) (9) S/P right hemicolectomy Clinical Quality Measures DVT/VTE Risk/Contraindication: Risk Factor Score Per Nursin WILFREDO MARTÍNEZ DO Nov 25, 2020 10:14
--- NOTE | 2020-11-25 11:00 | Cardiology Progress Note ---
Subjective Date Seen by Provider: Nov 25, 2020 Time Seen by Provider: 10:59 Subjective/Events-last exam Patient is laying down in bed, feeling better. No new complaint Review of Systems General: No Chills, No Night Sweats; Fatigue, Malaise; No Appetite, No Other HEENT: No Head Aches, No Visual Changes, No Eye Pain, No Ear Pain, No Dysphasia, No Sinus Congestion, No Post Nasal Drip, No Sore Throat, No Other Pulmonary: No Dyspnea, No Cough, No Pleuritic Chest Pain, No Other Cardiovascular: No: Chest Pain, Palpitations, Orthopnea, Paroxysmal Noc. Dyspnea, Edema, Lt Headedness, Other Objective-Cardiology Exam Last Set of Vital Signs Vital Signs 11/25/20 11/25/20 11/25/20 11/25/20 04:00 07:33 08:46 10:22 Temp 35.9 Pulse 90 Resp 28 B/P (MAP) 184/88 (120) Pulse Ox 96 O2 Delivery Vapotherm O2 Flow Rate 30.00 FiO2 35 Capillary Refill : Less Than 3 Seconds I&O Intake and Output 11/25/20 00:00 Intake Total 1440 ml Output Total 2119 ml Balance -679 ml Intake Oral 1440 ml Output Urine Total 1324 ml Stool Total 300 ml Drainage Total 495 ml # Bowel Movements 3 General: Alert, Oriented X3, Cooperative, Mild Distress, Other HEENT: Atraumatic Neck: Supple, No JVD, No Thyromegaly Lungs: Clear to Auscultation, Normal Air Movement Heart: Regular Rate, Normal S1, Normal S2, No Murmurs Abdomen: Normal Bowel Sounds Extremities: No Clubbing, No Cyanosis, No Edema, Normal Pulses, No Tenderness/Swelling Skin: No Rashes, No Breakdown, No Significant Lesion Neuro: Other (not following commands) Psych/Mental Status: Other (not following commands) Results Lab Laboratory Tests 11/25/20 06:31 A/P-Cardiology Admission Diagnosis Acute respiratory failure Sinus tachycardia Hypertension Hyperlipidemia Assessment/Plan Status post acute respiratory failure, extubated on November 18, 2020, improving slowly. Still having some shortness of breath, Managed by primary care team Confusion, delirium, waxing and waning, better today. Continue to monitor Anemia, continue to monitor H&H Status post extended right hemicolectomy and ileostomy revision for ileostomy, had her wound VAC replaced, appeared to be feeling better today. Managed by primary care team COPD, followed and managed by primary care physician Sinus tachycardia, secondary to hypoxia, and anemia, started on low-dose beta blockers. Continue to monitor Hypertension, poor control, continue on Toprol to XL 50 mg daily, I am adding lisinopril 20 mg daily and amlodipine 10 mg daily and monitor her tolerance and response Hyperlipidemia monitor lipids Clinical Quality Measures DVT/VTE Risk/Contraindication: Risk Factor Score Per Nursin MAYUR CANNON MD Nov 25, 2020 11:00
--- NOTE | 2020-11-25 11:14 | Diagnostic Imaging Report ---
INDICATION: PICC line placement. Frontal chest obtained at 11:04 a.m. and is compared to 11/22/2020. There is cardiomegaly. There is central vascular congestion with worsening of interstitial edema. There is some infiltrate in the right base which is new compared to the previous study. There is no pneumothorax or pleural fluid. There is a new right-sided PICC line, with tip going up the right internal jugular vein. Recommend repositioning and reimaging. IMPRESSION: Cardiomegaly. Worsening central vascular congestion with interstitial edema and new right basilar infiltrate. There is a new right-sided PICC line, tip is going up into the right internal jugular vein. Dictated by: Dictated on workstation # [id number]
[2020-11-25] MEDS ORDERED: FUROSEMIDE 40 MG/4 ML INJ (LASIX) ONE (11:17)
[2020-11-25] MEDS ORDERED: LABETALOL HCL 20 MG/4 ML VIAL IV NR (11:30)
[2020-11-25] MEDS ORDERED: amLODIPine 10 MG (NORVASC) TAB PO NR (11:30)
[2020-11-25] MEDS ORDERED: lisINopril 20 MG (PRINIVIL) TABLET PO NR (11:30)
[2020-11-25] MEDS ORDERED: FUROSEMIDE 40 MG/4 ML INJ (LASIX) IVP NR ×2 (11:30)
--- NOTE | 2020-11-25 11:30 | Pulmonary Progress Note ---
Standard Progress Note Progress Notes Date Seen by Provider: Nov 25, 2020 Time Seen by Provider: 11:25 RN called me secondary to acute respiratory distress and HTN with SBP> 200. Rapid response called. -Acute respiratory distess -check ABG - -Repeat CXR -Lasix 80mg IV x 1 -Repeat labs and troponin, bnp, LA -transfer pt to ICU -HTN Urgency -Labtalol 20mg IV x 1 -Start Cardene gtt Assessment & Plan Acute respiratory failure s/p surgery - now resolved -Pt was admitted on 10/31 for hemicolectomy. -S/p Extubation S/p multiple surgeries last surgery was 11/15 s/p revision of iliostomy/hemicolectomy with colostomy -Surgery is following Sepsis with abdominal abscess - Merrem,and Eraxis Agitation/aggressive behavior -Haldol PRN -Pain control HTN Anemia -monitor S/p hemicolectomy secondary to Colon cancer then ileostomy secondary to torsion. then repeat surgery secondary to persistent intraabdominal sepsis. Debility HX of COPD with oxygen dependance at home Tobacco dependance anemia s/p 4 units of PRBC Critical Care: Critically Ill Patient GIOVANNA BORREGO DO Nov 25, 2020 11:30
--- NOTE | 2020-11-25 11:53 | Physical Therapy Progress Note ---
Therapy Progress Note Patient on hold due to declined in status. Rapid response called per RN. Will attempt in ROBERT Méndez PT Nov 25, 2020 11:53
[2020-11-25 12:07] LABS: HEMOGLOBIN 8.3 g/dL (11.5-16.0); MEAN PLATELET VOLUME 10.9 fL (9.0-12.2); WHITE BLOOD COUNT 9.3 10^3/uL (4.3-11.0)
[2020-11-25] MEDS: niCARdipine IV 50 MG in NS (IVPB) 230 ML IV SCH ×2 (12:21→22:02)
[2020-11-25 12:28] LABS: ABG BASE EXCESS 2.6 MMOL/L (-2.5-2.5); ABG OXYGEN SATURATION 95 % (94-100); ABG PCO2 42 MMHG (35-45); ABG PH 7.42 (7.37-7.43); ABG PO2 71 MMHG (79-93)
[2020-11-25 12:29] LABS: ALLENS TEST YES-POS; INSPIRED O2 35%; PATIENT TEMP 36.9; VENTILATOR NO
[2020-11-25] MEDS: SUCRALFATE 1 GM (CARAFATE) TAB PO SCH ×3 (12:41→19:27)
[2020-11-25] MEDS: POTASSIUM CL 10MEQ/50ML IVPB 50 ML IV SCH ×4 (13:42→17:05)
--- NOTE | 2020-11-25 13:43 | Occ Therapy Progress Note ---
Therapy Progress Note OT attempted to see this a.m. Pt. receiving PICC line, and then pt. put onto Bipap machine. Will hold at this time due to change in medical status. Will continue to monitor pt. 1, visit 1100 KOKI STOKES OT Nov 25, 2020 13:43
--- NOTE | 2020-11-25 14:26 | Diagnostic Imaging Report ---
INDICATION: Line placement.. TECHNIQUE: Single view chest 2:17 PM. CORRELATION STUDY: Earlier same day FINDINGS: The right upper extremity central line remains malpositioned with the tip coursing into the neck. The tip extends above the area imaged. Heart size is stable. However, the severity of vascular congestion appears less pronounced from earlier in the day. There is continued opacity at the right left lung base. IMPRESSION: 1. Right upper extremity central line remains malpositioned, tip coursing into likely the internal jugular vein. Tip extends beyond the area imaged. This will need to be retracted at least 7 cm prior to repositioning. Members of the IV team are reportedly aware of this line placement. Dictated by: Dictated on workstation # [id number]
[2020-11-25] MEDS ORDERED: RT-ALBUTEROL/IPRATROPIUM 3 ML (DUONEB) VIAL INH PRN (16:30)
--- NOTE | 2020-11-25 16:47 | Progress Note ---
Subjective Date Seen by a Provider: Nov 25, 2020 Time Seen by a Provider: 16:40 Subjective/Events-last exam patient transferred to ICU due to respiratory distress. i was never contracted. cxr appears to be worsening pulmonary edema and on bipap improved with diuretic. functional ileostomy. Focused Exam Lactate Level 11/25/20 11:55: Lactic Acid Level 0.97 Objective Exam Vital Signs Date Time Temp Pulse Resp B/P (MAP) Pulse Ox O2 Delivery O2 Flow Rate FiO2 11/25/20 15:44 35.2 11/25/20 15:00 88 135/62 (86) 98 NIV Bilevel 60.00 11/25/20 14:15 96 41 97 60.00 11/25/20 14:00 92 158/74 (102) 87 NIV Bilevel 60.00 11/25/20 13:16 NIV Bilevel 60.00 11/25/20 13:00 92 172/93 (119) 87 NIV Bilevel 30.00 11/25/20 12:40 89 11/25/20 12:30 NIV Bilevel 30 11/25/20 12:30 94 197/84 (121) 93 NIV Bilevel 30.00 11/25/20 11:35 90 190/95 (126) 98 11/25/20 11:33 96 234/107 (149) 98 11/25/20 11:23 92 32 208/99 (135) 95 11/25/20 11:18 92 36 223/111 (148) NIV CPAP 40.00 35.00 11/25/20 10:22 90 184/88 (120) 11/25/20 09:00 Vapotherm 35.00 35 11/25/20 08:46 80 28 191/84 (119) 96 11/25/20 08:25 80 166/74 (104) 11/25/20 07:33 96 Vapotherm 30.00 35 11/25/20 06:54 85 11/25/20 04:00 35.9 75 20 149/67 (94) 98 Vapotherm 35.00 35.00 11/25/20 01:00 71 11/25/20 00:25 36.0 86 21 192/75 (114) 95 Vapotherm 35.00 35.00 11/24/20 20:22 36.0 97 24 208/91 (130) 97 Vapotherm 30.00 35.00 11/24/20 20:17 Vapotherm 35.00 35 11/24/20 19:23 95 Vapotherm 25.00 35 11/24/20 19:00 101 I & O 11/25/20 07:00 Intake Total 1190 ml Output Total 1869 ml Balance -679 ml Capillary Refill : Less Than 3 Seconds General Appearance: No Apparent Distress HEENT: PERRL/EOMI Neck: Full Range of Motion Respiratory: Chest Non Tender, Decreased Breath Sounds, Rhonci, Stridor Cardiovascular: Regular Rate, Rhythm Gastrointestinal: normal bowel sounds, soft Extremity: Normal Capillary Refill Neurologic/Psychiatric: Alert Skin: Normal Color Lymphatic: No Adenopathy Results Lab Laboratory Tests 11/25/20 06:31: White Blood Count 7.7, Red Blood Count 3.35L, Hemoglobin 8.6#L, Hematocrit 28L, Mean Corpuscular Volume 82, Mean Corpuscular Hemoglobin 26, Mean Corpuscular Hemoglobin Concent 31L, Red Cell Distribution Width 16.5H, Platelet Count 294, Mean Platelet Volume 9.3, Immature Granulocyte % (Auto) 1, Neutrophils (%) (Auto) 71, Lymphocytes (%) (Auto) 16, Monocytes (%) (Auto) 9, Eosinophils (%) (Auto) 3, Basophils (%) (Auto) 1, Neutrophils # (Auto) 5.4, Lymphocytes # (Auto) 1.2, Monocytes # (Auto) 0.7, Eosinophils # (Auto) 0.2, Basophils # (Auto) 0.1, Immature Granulocyte # (Auto) 0.1, Sodium Level 145, Potassium Level 4.0, Ch loride Level 113H, Carbon Dioxide Level 25, Anion Gap 7, Blood Urea Nitrogen 29H , Creatinine 0.79, Estimat Glomerular Filtration Rate > 60, BUN/Creatinine Ratio 37, Glucose Level 135H, Calcium Level 7.7L, Phosphorus Level 3.7, Magnesium Level 1.6 11/25/20 11:19: Blood Gas Puncture Site RT RAD, Blood Gas Patient Temperature 36.9, Arterial Blood pH 7.42, Arterial Blood Partial Pressure CO2 42, Arterial Blood Partial Pressure O2 71L, Arterial Blood HCO3 27, Arterial Blood Total CO2 28.0, Arterial Blood Oxygen Saturation 95, Arterial Blood Base Excess 2.6H, Adi Test YES-POS, Blood Gas Ventilator Setting NO, Blood Gas Inspired Oxygen 35% 11/25/20 11:20: Glucometer 129H 11/25/20 11:55: White Blood Count 9.3, Red Blood Count 2.78L, Hemoglobin 8.3L, Hematocrit 26L, Mean Corpuscular Volume 95, Mean Corpuscular Hemoglobin 30, Mean Corpuscular Hemoglobin Concent 32, Red Cell Distribution Width 15.9H, Platelet Count 197, Mean Platelet Volume 10.9, Lactic Acid Level 0.97, Troponin I < 0.028, B-Type Natriuretic Peptide 605.2H, Procalcitonin 0.25H Microbiology 11/16/20 MRSA Screen - Final, Complete MRSA not isolated 11/15/20 Gram Stain - Final, Resulted 11/15/20 Anaerobic Culture - Final, Resulted No anaerobes isolated 11/15/20 Surgical Culture - Final, Resulted Bobbi glabrata Bobbi species 11/15/20 Fungal Culture 1 - Preliminary, Resulted Bobbi glabrata Bobbi species Assessment/Plan Assessment/Plan Assess & Plan/Chief Complaint s/p extended right hemicolectomy, end ileostomy, mucous fistula, revision ileostomy, drainage intraabd abscess and VAC placement. will change vac about every 5 days. start a carbapenem. cont TPN cont respiratory support and diuresis. advance to dys3 diet. Clinical Quality Measures DVT/VTE Risk/Contraindication: Risk Factor Score Per Nursin MICHAEL XIONG MD Nov 25, 2020 16:47
[2020-11-25] MEDS ORDERED: WATER (STERILE) FOR INJECTION 10 ML ONE (18:27)
[2020-11-25] MEDS ORDERED: MEROPENEM 500 MG VIAL (MERREM) IV ONE (18:27)
[2020-11-25] MEDS: ENOXAPARIN 40 MG/0.4 ML (LOVENOX) SYR SC SCH (20:31)
[2020-11-25] MEDS: diphenhydrAMINE 50 MG/ML INJ (BENADRYL) IV PRN (21:55)
[2020-11-25] MEDS: MELATONIN 3 MG TABLET PO PRN (21:55)
[2020-11-26] VITALS (27 sets, daily range): BP systolic 121–186; BP diastolic 49–87
[2020-11-26 03:36] LABS: BASOPHILS % (AUTO) 0 % (0-10); EOSINOPHILS % (AUTO) 1 % (0-10); LYMPHOCYTES # (AUTO) 0.9 10^3/uL (1.0-4.0); LYMPHOCYTES % (AUTO) 15 % (12-44); MEAN CORPUSCULAR HEMOGLOBIN 30 pg (25-34); MEAN CORPUSCULAR HGB CONC 31 g/dL (32-36); MEAN CORPUSCULAR VOLUME 96 fL (80-99); MEAN PLATELET VOLUME 11.5 fL (9.0-12.2); MONOCYTES # (AUTO) 0.4 10^3/uL (0.0-1.0); MONOCYTES % (AUTO) 7 % (0-12); NEUTROPHILS # (AUTO) 4.7 10^3/uL (1.8-7.8); NEUTROPHILS % (AUTO) 77 % (42-75); PLATELET COUNT 158 10^3/uL (130-400); WHITE BLOOD COUNT 6.1 10^3/uL (4.3-11.0)
--- NOTE | 2020-11-26 03:38 | Pulmonary Progress Note ---
Subjective Time Seen by a Provider: 03:35 Subjective/Events-last exam Pt is still on Cardene gtt. Sepsis Event Evaluation Height, Weight, BMI Height: '" Weight: lbs. oz. kg; 34.48 BMI Method: Focused Exam Lactate Level 11/25/20 11:55: Lactic Acid Level 0.97 Exam Exam Vital Signs Date Time Temp Pulse Resp B/P (MAP) Pulse Ox O2 Delivery O2 Flow Rate FiO2 11/26/20 03:00 72 137/57 (83) 95 Vapotherm 20.00 40.00 11/26/20 02:20 72 19 94 30.00 11/26/20 02:00 69 121/50 (73) 96 Vapotherm 20.00 40.00 11/26/20 01:00 93 145/73 (97) 94 Vapotherm 20.00 40.00 11/26/20 00:35 92 11/26/20 00:00 69 134/58 (83) 94 Vapotherm 20.00 40.00 11/25/20 23:00 65 128/50 (76) 91 Vapotherm 20.00 40.00 11/25/20 22:16 94 Vapotherm 20.00 40 11/25/20 22:10 Vapotherm 20.00 40.00 11/25/20 22:00 82 106/50 (68) 91 NIV Bilevel 30.00 11/25/20 22:00 89 23 95 35.00 11/25/20 21:00 87 159/66 (97) 93 NIV Bilevel 30.00 11/25/20 21:00 NIV Bilevel 30 11/25/20 20:22 36.0 11/25/20 20:00 NIV Bilevel 30.00 11/25/20 20:00 73 155/69 (97) 100 NIV Bilevel 30.00 11/25/20 19:00 73 114/53 (73) 100 NIV Bilevel 60.00 11/25/20 19:00 73 11/25/20 18:00 75 156/72 (100) 100 NIV Bilevel 60.00 11/25/20 17:00 76 144/61 (88) 99 NIV Bilevel 60.00 11/25/20 16:00 80 145/63 (90) 98 NIV Bilevel 60.00 11/25/20 15:44 35.2 11/25/20 15:00 88 135/62 (86) 98 NIV Bilevel 60.00 11/25/20 14:15 96 41 97 60.00 11/25/20 14:00 92 158/74 (102) 87 NIV Bilevel 60.00 11/25/20 13:16 NIV Bilevel 60.00 11/25/20 13:00 92 172/93 (119) 87 NIV Bilevel 30.00 11/25/20 12:40 89 11/25/20 12:30 NIV Bilevel 30 11/25/20 12:30 94 197/84 (121) 93 NIV Bilevel 30.00 11/25/20 11:35 90 190/95 (126) 98 11/25/20 11:33 96 234/107 (149) 98 11/25/20 11:23 92 32 208/99 (135) 95 11/25/20 11:20 97 32 97 30.00 11/25/20 11:18 92 36 223/111 (148) NIV CPAP 40.00 35.00 11/25/20 10:22 90 184/88 (120) 11/25/20 09:00 Vapotherm 35.00 35 11/25/20 08:46 80 28 191/84 (119) 96 11/25/20 08:25 80 166/74 (104) 11/25/20 07:33 96 Vapotherm 30.00 35 11/25/20 06:54 85 11/25/20 04:00 35.9 75 20 149/67 (94) 98 Vapotherm 35.00 35.00 I & O 11/26/20 07:00 Intake Total 100 ml Output Total 3550 ml Balance -3450 ml Height & Weight Height: '" Weight: lbs. oz. kg; 34.48 BMI Method: General Appearance: No Apparent Distress HEENT: PERRL/EOMI Neck: Full Range of Motion Respiratory: Chest Non Tender, Decreased Breath Sounds, Rhonci, Stridor Cardiovascular: Regular Rate, Rhythm Gastrointestinal: normal bowel sounds, soft Extremity: Normal Capillary Refill Neurologic/Psychiatric: Alert Skin: Normal Color Lymphatic: No Adenopathy Results Lab Laboratory Tests 11/24/20 05:35 11/25/20 06:31 11/25/20 11:55 Assessment/Plan Assessment/Plan Acute respiratory failure s/p surgery - now resolved -Pt was admitted on 10/31 for hemicolectomy. -Vapotherm 40% S/p multiple surgeries last surgery was 11/15 s/p revision of iliostomy/hemicolectomy with colostomy -Surgery is following Sepsis with abdominal abscess - Merrem,and Eraxis Agitation/aggressive behavior -Haldol PRN -Pain control HTN -Lopressor, Lisinopril, Norvasc -Titrate Cardene gtt to D/C -Hydralazine PRN Anemia -monitor S/p hemicolectomy secondary to Colon cancer then ileostomy secondary to torsion. then repeat surgery secondary to persistent intraabdominal sepsis. Debility HX of COPD with oxygen dependance at home Tobacco dependance anemia s/p 4 units of PRBC GIOVANNA BORREGO DO Nov 26, 2020 03:38
[2020-11-26] MEDS ORDERED: MEROPENEM 500 MG VIAL (MERREM) IV ONE ×4 (03:46→19:40)
[2020-11-26] MEDS ORDERED: WATER (STERILE) FOR INJECTION 10 ML ONE (03:46)
[2020-11-26 03:49] LABS: CHLORIDE 110 MMOL/L (98-107); POTASSIUM 3.6 MMOL/L (3.6-5.0); SODIUM 144 MMOL/L (135-145)
[2020-11-26 03:50] LABS: CALCIUM 7.7 MG/DL (8.5-10.1); GLUCOSE 98 MG/DL (70-105)
[2020-11-26 03:52] LABS: CARBON DIOXIDE 25 MMOL/L (21-32)
[2020-11-26] MEDS: MEROPENEM 500 MG in WATER (STERILE) FOR INJECTION 10 ML IV SCH ×3 (03:53→19:50)
[2020-11-26 03:54] LABS: CREATININE SERUM 0.81 MG/DL (0.60-1.30); GFR ESTIMATED > 60; PHOSPHORUS 3.5 MG/DL (2.3-4.7)
[2020-11-26 03:55] LABS: BUN/CREATININE RATIO 31
[2020-11-26 03:57] LABS: MAGNESIUM 1.6 MG/DL (1.6-2.4)
[2020-11-26 04:15] LABS: HEMATOCRIT 18 % (35-52); HEMOGLOBIN 5.4 g/dL (11.5-16.0)
[2020-11-26] MEDS ORDERED: NS IV 500 ML 500 ML IV SCH (05:00)
[2020-11-26] MEDS: SUCRALFATE 1 GM (CARAFATE) TAB PO SCH ×4 (05:14→20:07)
--- NOTE | 2020-11-26 07:15 | Diagnostic Imaging Report ---
Reason for examination: Respiratory distress. Upright AP portable chest was obtained and compared to yesterday and 11/22/2020. Cardiac silhouette is within normal limits. Bibasilar atelectasis versus infiltrate. No mediastinal widening. No large effusion or pneumothorax. Impression: 1. Bibasilar atelectasis versus infiltrate, increased since prior studies. Dictated by: Dictated on workstation # [id number]
[2020-11-26] MEDS ORDERED: NS IV 500 ML 500 ML ONE ×2 (08:10→12:17)
[2020-11-26] MEDS: NICOTINE 14 MG (NICODERM) PATCH TD SCH (08:37)
[2020-11-26] MEDS: METOCLOPRAMIDE INJ 10 MG/2 ML (REGLAN) IVP SCH ×2 (08:38→20:07)
[2020-11-26] MEDS: lisINopril 20 MG (PRINIVIL) TABLET PO SCH (08:38)
[2020-11-26] MEDS: amLODIPine 10 MG (NORVASC) TAB PO SCH (08:38)
[2020-11-26] MEDS: meTOproloL SUCCINATE 50 MG (TOPROL XL) TAB PO SCH (08:38)
[2020-11-26] MEDS: NICOTINE PATCH REMOVAL TP SCH (08:38)
[2020-11-26] MEDS: PANTOPRAZOLE 40 MG (PROTONIX) VIAL IV SCH ×2 (08:40→20:07)
[2020-11-26] MEDS: niCARdipine IV 50 MG in NS (IVPB) 230 ML IV SCH ×2 (08:40→16:23)
[2020-11-26] MEDS: RT-ALBUTEROL/IPRATROPIUM 3 ML (DUONEB) VIAL INH SCH ×3 (08:47→18:30)
--- NOTE | 2020-11-26 10:37 | Cardiology Progress Note ---
Subjective Date Seen by Provider: Nov 26, 2020 Time Seen by Provider: 10:36 Subjective/Events-last exam patient is laying down in bed, feeling better. Transferred to ICU and started on Vapotherm due to acute respiratory failure Review of Systems General: No Chills, No Night Sweats; Fatigue, Malaise; No Appetite, No Other HEENT: No Head Aches, No Visual Changes, No Eye Pain, No Ear Pain, No Dysphasia, No Sinus Congestion, No Post Nasal Drip, No Sore Throat, No Other Pulmonary: Dyspnea; No Cough, No Pleuritic Chest Pain, No Other Cardiovascular: No: Chest Pain, Palpitations, Orthopnea, Paroxysmal Noc. Dyspnea, Edema, Lt Headedness, Other Focused Exam Lactate Level 11/25/20 11:55: Lactic Acid Level 0.97 Objective-Cardiology Exam Last Set of Vital Signs Vital Signs 11/26/20 11/26/20 08:50 10:00 Temp 35.9 Pulse 91 Resp 20 B/P (MAP) 171/76 (107) Pulse Ox 94 O2 Delivery Vapotherm O2 Flow Rate 20.00 40.00 FiO2 35 Capillary Refill : Less Than 3 Seconds I&O Intake and Output 11/26/20 00:00 Intake Total 50 ml Output Total 3590 ml Balance -3540 ml Intake Oral 50 ml Output Urine Total 2875 ml Stool Total 350 ml Drainage Total 365 ml General: Alert, Oriented X3, Cooperative, No Acute Distress HEENT: Atraumatic Neck: Supple, No JVD, No Thyromegaly Lungs: Other (bilateral rhonchi) Heart: Regular Rate, Normal S1, Normal S2 Abdomen: Normal Bowel Sounds Extremities: No Clubbing, No Cyanosis, No Edema, Normal Pulses, No Tenderness/Swelling Skin: No Rashes, No Breakdown, No Significant Lesion Neuro: Normal Speech, Other (not following commands) Psych/Mental Status: Mental Status NL, Mood NL, Other (not following commands) Results Lab Laboratory Tests 11/25/20 11:55 11/26/20 03:02 A/P-Cardiology Admission Diagnosis Acute respiratory failure Sinus tachycardia Hypertension Hyperlipidemia Assessment/Plan Status post acute respiratory failure, extubated on November 18, 2020, improved initially, was transferred back to ICU on November 25, 2020 for acute respiratory failure again, given 80 mg of Lasix, currently on beta cortes and, feeling better. Receiving daily Lasix. Confusion, delirium, waxing and waning, better today. Continue to monitor Anemia, significant drop in H&H, receiving blood transfusion, continue to monitor Status post extended right hemicolectomy and ileostomy revision for ileostomy, had her wound VAC replaced, appeared to be feeling better today. Managed by primary care team COPD, followed and managed by primary care physician Sinus tachycardia, secondary to hypoxia, and anemia, started on low-dose beta blockers. Continue to monitor Hypertension, poor control, continue on Toprol to XL 50 mg daily, I am adding lisinopril 20 mg daily and amlodipine 10 mg daily and monitor her tolerance and response Hyperlipidemia monitor lipids Clinical Quality Measures DVT/VTE Risk/Contraindication: Risk Factor Score Per Nursin MAYUR CANNON MD Nov 26, 2020 10:37
--- NOTE | 2020-11-26 10:38 | Progress Note ---
Subjective Date Seen by a Provider: Nov 26, 2020 Time Seen by a Provider: 09:30 Subjective/Events-last exam Still remains in ICU Monitoring O2 closely On vapotherm Very long recovery Weakness noted Review of Systems General: Fatigue, Malaise Pulmonary: Dyspnea Focused Exam Lactate Level 11/25/20 11:55: Lactic Acid Level 0.97 Objective Exam Last Set of Vital Signs Vital Signs Date Time Temp Pulse Resp B/P (MAP) Pulse Ox O2 Delivery O2 Flow Rate FiO2 11/26/20 10:00 91 171/76 (107) 94 Vapotherm 20.00 40.00 11/26/20 08:50 35.9 20 35 Capillary Refill : Less Than 3 Seconds I&O Intake and Output 11/26/20 00:00 Intake Total 50 ml Output Total 3590 ml Balance -3540 ml Intake Oral 50 ml Output Urine Total 2875 ml Stool Total 350 ml Drainage Total 365 ml General: Alert, Oriented X3, Cooperative, No Acute Distress Lungs: Clear to Auscultation Heart: Regular Rate Results Lab Laboratory Tests 11/25/20 11:19: Blood Gas Puncture Site RT RAD, Blood Gas Patient Temperature 36.9, Arterial Blood pH 7.42, Arterial Blood Partial Pressure CO2 42, Arterial Blood Partial Pressure O2 71L, Arterial Blood HCO3 27, Arterial Blood Total CO2 28.0, Arterial Blood Oxygen Saturation 95, Arterial Blood Base Excess 2.6H, Adi Test YES-POS, Blood Gas Ventilator Setting NO, Blood Gas Inspired Oxygen 35% 11/25/20 11:20: Glucometer 129H 11/25/20 11:55: White Blood Count 9.3, Red Blood Count 2.78L, Hemoglobin 8.3L, Hematocrit 26L, Mean Corpuscular Volume 95, Mean Corpuscular Hemoglobin 30, Mean Corpuscular Hemoglobin Concent 32, Red Cell Distribution Width 15.9H, Platelet Count 197, Mean Platelet Volume 10.9, Lactic Acid Level 0.97, Troponin I < 0.028, B-Type Natriuretic Peptide 605.2H, Procalcitonin 0.25H 11/25/20 18:05: Troponin I 0.031H 11/25/20 23:55: Troponin I 0.028 11/26/20 03:02: White Blood Count 6.1, Red Blood Count 1.83L, Hemoglobin 5.4#*L, Hematocrit 18*L , Mean Corpuscular Volume 96, Mean Corpuscular Hemoglobin 30, Mean Corpuscular Hemoglobin Concent 31L, Red Cell Distribution Width 16.0H, Platelet Count 158, Mean Platelet Volume 11.5, Immature Granulocyte % (Auto) 1, Neutrophils (%) (Auto) 77H, Lymphocytes (%) (Auto) 15, Monocytes (%) (Auto) 7, Eosinophils (%) (Auto) 1, Basophils (%) (Auto) 0, Neutrophils # (Auto) 4.7, Lymphocytes # (Auto) 0.9L, Monocytes # (Auto) 0.4, Eosinophils # (Auto) 0.0, Basophils # (Auto) 0.0, Immature Granulocyte # (Auto) 0.1, Sodium Level 144, Potassium Level 3.6, Chloride Level 110H, Carbon Dioxide Level 25, Anion Gap 9, Blood Urea Nitrogen 25H, Creatinine 0.81, Estimat Glomerular Filtration Rate > 60, BUN/Creatinine Ratio 31, Glucose Level 98, Calcium Level 7.7L, Phosphorus Level 3.5, Magnesium Level 1.6 11/26/20 04:45: Stool Occult Blood Immunoassay NEGATIVE Microbiology 11/16/20 MRSA Screen - Final, Complete MRSA not isolated 11/15/20 Gram Stain - Final, Resulted 11/15/20 Anaerobic Culture - Final, Resulted No anaerobes isolated 11/15/20 Surgical Culture - Final, Resulted Bobbi glabrata Bobbi species 11/15/20 Fungal Culture 1 - Preliminary, Resulted Bobbi glabrata Bobbi species Assessment/Plan Assessment/Plan Assess & Plan/Chief Complaint Assessment: Acute respiratory insufficiency requiring ICU transfer 11/25/20 Colon cancer Bowel resection with diverting ileostomy Psychosis Anemia requiring transfusion Severe [place] Abdominal pain Hyponatremia Plan: 4th floor move Monitor closely 11/23/20: TPN Replace CL Monitor closely 11/24/20: Monitor closely TPN 11/25/20: Move to ICU Hakeem closely Appreciate Dr Moreno 11/26/20: ICI Vapotherm Monitor closely Diagnosis/Problems Diagnosis/Problems (1) Ileus following gastrointestinal surgery (2) Presbycusis of both ears (3) Ileostomy in place (4) Anemia due to acute blood loss (5) Colon cancer (6) Myopathy (7) Hyponatremia (8) COPD (chronic obstructive pulmonary disease) (9) S/P right hemicolectomy Clinical Quality Measures DVT/VTE Risk/Contraindication: Risk Factor Score Per Nursin WILFREDO MARTÍNEZ DO Nov 26, 2020 10:38
[2020-11-26] MEDS ORDERED: FUROSEMIDE 40 MG/4 ML INJ (LASIX) ONE (10:54)
[2020-11-26] MEDS: ANIDULAFUNGIN INJECTION 100 MG in NS (IVPB) 100 ML IV SCH (11:02)
[2020-11-26] MEDS: FENTANYL PATCH REMOVAL TP SCH (11:03)
[2020-11-26] MEDS: fentaNYL PATCH 25 MCG (DURAGESIC) TD SCH (11:03)
[2020-11-26] MEDS ORDERED: FUROSEMIDE 40 MG/4 ML INJ (LASIX) IVP ONE (11:30)
--- NOTE | 2020-11-26 13:54 | Progress Note ---
Subjective Date Seen by a Provider: Nov 26, 2020 Time Seen by a Provider: 13:00 Subjective/Events-last exam doing better today. resp status improved. functional ostomy. Focused Exam Lactate Level 11/25/20 11:55: Lactic Acid Level 0.97 Objective Exam Vital Signs Date Time Temp Pulse Resp B/P (MAP) Pulse Ox O2 Delivery O2 Flow Rate FiO2 11/26/20 13:00 87 11/26/20 12:00 89 169/85 (113) 95 Vapotherm 20.00 35.00 11/26/20 11:11 35.9 11/26/20 11:00 89 167/82 (110) 96 Vapotherm 20.00 35.00 11/26/20 10:00 91 171/76 (107) 94 Vapotherm 20.00 40.00 11/26/20 09:00 86 163/79 (107) 95 Vapotherm 20.00 40.00 11/26/20 08:50 35.9 86 20 167/81 95 Vapotherm 20.00 35 11/26/20 08:47 94 Vapotherm 20.00 35 11/26/20 08:30 Vapotherm 20.00 40 11/26/20 08:19 36.0 85 20 154/80 98 Vapotherm 20.00 40 11/26/20 08:00 87 162/75 (104) 98 Vapotherm 20.00 40.00 11/26/20 07:34 85 11/26/20 07:29 36.0 11/26/20 07:00 86 152/68 (96) 95 Vapotherm 20.00 40.00 11/26/20 06:00 90 143/62 (89) 96 Vapotherm 20.00 40.00 11/26/20 05:14 93 Vapotherm 20.00 40 11/26/20 05:00 85 161/74 (103) 95 Vapotherm 20.00 40.00 11/26/20 04:00 73 166/68 (100) 96 Vapotherm 20.00 40.00 11/26/20 03:00 72 137/57 (83) 95 Vapotherm 20.00 40.00 11/26/20 02:20 72 19 94 30.00 11/26/20 02:00 69 121/50 (73) 96 Vapotherm 20.00 40.00 11/26/20 01:00 93 145/73 (97) 94 Vapotherm 20.00 40.00 11/26/20 00:35 92 11/26/20 00:00 69 134/58 (83) 94 Vapotherm 20.00 40.00 11/25/20 23:00 65 128/50 (76) 91 Vapotherm 20.00 40.00 11/25/20 22:16 94 Vapotherm 20.00 40 11/25/20 22:10 Vapotherm 20.00 40.00 11/25/20 22:00 82 106/50 (68) 91 NIV Bilevel 30.00 11/25/20 22:00 89 23 95 35.00 11/25/20 21:00 87 159/66 (97) 93 NIV Bilevel 30.00 11/25/20 21:00 NIV Bilevel 30 11/25/20 20:22 36.0 11/25/20 20:00 NIV Bilevel 30.00 11/25/20 20:00 73 155/69 (97) 100 NIV Bilevel 30.00 11/25/20 19:00 73 114/53 (73) 100 NIV Bilevel 60.00 11/25/20 19:00 73 11/25/20 18:00 75 156/72 (100) 100 NIV Bilevel 60.00 11/25/20 17:00 76 144/61 (88) 99 NIV Bilevel 60.00 11/25/20 16:00 80 145/63 (90) 98 NIV Bilevel 60.00 11/25/20 15:44 35.2 11/25/20 15:00 88 135/62 (86) 98 NIV Bilevel 60.00 11/25/20 14:15 96 41 97 60.00 11/25/20 14:00 92 158/74 (102) 87 NIV Bilevel 60.00 I & O 11/26/20 07:00 Intake Total 100 ml Output Total 4325 ml Balance -4225 ml Capillary Refill : Less Than 3 Seconds General Appearance: No Apparent Distress HEENT: PERRL/EOMI Neck: Full Range of Motion Respiratory: Chest Non Tender, Decreased Breath Sounds, Wheezing Cardiovascular: Regular Rate, Rhythm Gastrointestinal: soft, tenderness Extremity: Normal Capillary Refill Neurologic/Psychiatric: Alert Skin: Normal Color Lymphatic: No Adenopathy Results Lab Laboratory Tests 11/25/20 18:05: Troponin I 0.031H 11/25/20 23:55: Troponin I 0.028 11/26/20 03:02: White Blood Count 6.1, Red Blood Count 1.83L, Hemoglobin 5.4#*L, Hematocrit 18*L , Mean Corpuscular Volume 96, Mean Corpuscular Hemoglobin 30, Mean Corpuscular Hemoglobin Concent 31L, Red Cell Distribution Width 16.0H, Platelet Count 158, Mean Platelet Volume 11.5, Immature Granulocyte % (Auto) 1, Neutrophils (%) (Aut o) 77H, Lymphocytes (%) (Auto) 15, Monocytes (%) (Auto) 7, Eosinophils (%) (Auto) 1, Basophils (%) (Auto) 0, Neutrophils # (Auto) 4.7, Lymphocytes # (Auto) 0.9L, Monocytes # (Auto) 0.4, Eosinophils # (Auto) 0.0, Basophils # (Auto) 0.0, Immature Granulocyte # (Auto) 0.1, Sodium Level 144, Potassium Level 3.6, Chloride Level 110H, Carbon Dioxide Level 25, Anion Gap 9, Blood Urea Nitrogen 25H, Creatinine 0.81, Estimat Glomerular Filtration Rate > 60, BUN/Creatinine Ratio 31, Glucose Level 98, Calcium Level 7.7L, Phosphorus Level 3.5, Magnesium Level 1.6 11/26/20 04:45: Stool Occult Blood Immunoassay NEGATIVE Microbiology 11/16/20 MRSA Screen - Final, Complete MRSA not isolated 11/15/20 Gram Stain - Final, Resulted 11/15/20 Anaerobic Culture - Final, Resulted No anaerobes isolated 11/15/20 Surgical Culture - Final, Resulted Bobbi glabrata Bobbi species 11/15/20 Fungal Culture 1 - Preliminary, Resulted Bobbi glabrata Bobbi species Assessment/Plan Assessment/Plan Assess & Plan/Chief Complaint s/p extended right hemicolectomy, end ileostomy, mucous fistula, revision ileostomy, drainage intraabd abscess and VAC placement. will change vac about every 5 days. start a carbapenem. cont TPN cont respiratory support and diuresis. advance to reg diet. Clinical Quality Measures DVT/VTE Risk/Contraindication: Risk Factor Score Per Nursin MICHAEL XIONG MD Nov 26, 2020 13:54
[2020-11-26] MEDS ORDERED: hydrALAZINE (APESOLINE) 20 MG/ML VIAL ONE (15:56)
[2020-11-26] MEDS: ENOXAPARIN 40 MG/0.4 ML (LOVENOX) SYR SC SCH (20:07)
[2020-11-26] MEDS: fentaNYL INJECTION 100 MCG/2 ML AMP IVP PRN (22:18)
[2020-11-27] VITALS (8 sets, daily range): BP systolic 145–185; BP diastolic 64–85
[2020-11-27] MEDS ORDERED: MEROPENEM 500 MG VIAL (MERREM) IV ONE (02:07)
[2020-11-27] MEDS: MEROPENEM 500 MG in WATER (STERILE) FOR INJECTION 10 ML IV SCH ×3 (02:14→18:52)
[2020-11-27] MEDS: hydrALAZINE (APESOLINE) 20 MG/ML VIAL IV PRN (02:14)
[2020-11-27] MEDS: fentaNYL INJECTION 100 MCG/2 ML AMP IVP PRN (02:50)
[2020-11-27] MEDS: niCARdipine IV 50 MG in NS (IVPB) 230 ML IV SCH (03:01)
[2020-11-27 03:41] LABS: BASOPHILS % (AUTO) 0 % (0-10); EOSINOPHILS % (AUTO) 1 % (0-10); HEMATOCRIT 32 % (35-52); HEMOGLOBIN 10.8 g/dL (11.5-16.0); LYMPHOCYTES # (AUTO) 1.1 10^3/uL (1.0-4.0); LYMPHOCYTES % (AUTO) 14 % (12-44); MEAN CORPUSCULAR HEMOGLOBIN 30 pg (25-34); MEAN CORPUSCULAR HGB CONC 34 g/dL (32-36); MEAN CORPUSCULAR VOLUME 89 fL (80-99); MEAN PLATELET VOLUME 10.6 fL (9.0-12.2); MONOCYTES # (AUTO) 0.5 10^3/uL (0.0-1.0); MONOCYTES % (AUTO) 6 % (0-12); NEUTROPHILS # (AUTO) 6.4 10^3/uL (1.8-7.8); NEUTROPHILS % (AUTO) 79 % (42-75); PLATELET COUNT 146 10^3/uL (130-400); WHITE BLOOD COUNT 8.1 10^3/uL (4.3-11.0)
[2020-11-27 03:59] LABS: CHLORIDE 104 MMOL/L (98-107); POTASSIUM 2.8 MMOL/L (3.6-5.0); SODIUM 139 MMOL/L (135-145)
[2020-11-27 04:00] LABS: CALCIUM 7.9 MG/DL (8.5-10.1)
[2020-11-27 04:01] LABS: GLUCOSE 117 MG/DL (70-105)
[2020-11-27 04:03] LABS: CARBON DIOXIDE 23 MMOL/L (21-32)
[2020-11-27 04:05] LABS: CREATININE SERUM 0.74 MG/DL (0.60-1.30); GFR ESTIMATED > 60; PHOSPHORUS 2.9 MG/DL (2.3-4.7)
[2020-11-27 04:06] LABS: BUN/CREATININE RATIO 26
[2020-11-27 04:07] LABS: MAGNESIUM 1.4 MG/DL (1.6-2.4)
--- NOTE | 2020-11-27 04:14 | Pulmonary Progress Note ---
Subjective Time Seen by a Provider: 04:09 Subjective/Events-last exam No complications noted. Sepsis Event Evaluation Height, Weight, BMI Height: '" Weight: lbs. oz. kg; 34.48 BMI Method: Focused Exam Lactate Level 11/25/20 11:55: Lactic Acid Level 0.97 Exam Exam Vital Signs Date Time Temp Pulse Resp B/P (MAP) Pulse Ox O2 Delivery O2 Flow Rate FiO2 11/27/20 03:00 77 160/64 (96) 94 Vapotherm 25.00 35.00 11/27/20 02:27 94 Vapotherm 25.00 35 11/27/20 02:07 77 172/73 (106) 90 Vapotherm 25.00 35.00 11/27/20 02:05 11/27/20 01:00 83 169/84 (112) 93 Vapotherm 25.00 35.00 11/27/20 01:00 84 11/27/20 00:00 86 169/76 (107) 93 Vapotherm 25.00 35.00 11/27/20 00:00 36.3 11/26/20 23:00 90 153/70 (97) 94 Vapotherm 25.00 35.00 11/26/20 22:00 90 176/79 (111) 92 Vapotherm 25.00 35.00 11/26/20 21:00 92 160/75 (103) 92 Vapotherm 25.00 35.00 11/26/20 20:00 91 Vapotherm 25.00 35 11/26/20 20:00 87 150/60 (90) 90 Vapotherm 25.00 35.00 11/26/20 19:45 36.0 Vapotherm 25.00 35.00 11/26/20 19:00 95 168/71 (103) 89 Vapotherm 20.00 25.00 11/26/20 19:00 95 11/26/20 19:00 Vapotherm 20.00 25.00 11/26/20 18:30 95 Vapotherm 20.00 25 11/26/20 18:00 86 174/79 (110) 89 Vapotherm 20.00 25.00 11/26/20 17:00 92 186/87 (120) 89 Vapotherm 20.00 25.00 11/26/20 16:01 96 182/71 (108) 89 Vapotherm 20.00 25.00 11/26/20 16:00 36.0 11/26/20 15:00 92 171/81 (111) 89 Vapotherm 20.00 25.00 11/26/20 14:15 Vapotherm 20.00 25.00 11/26/20 14:04 95 Vapotherm 20.00 35 11/26/20 14:00 89 177/87 (117) 96 Vapotherm 20.00 35.00 11/26/20 13:00 87 167/72 (103) 96 Vapotherm 20.00 35.00 11/26/20 13:00 87 11/26/20 12:00 89 169/85 (113) 95 Vapotherm 20.00 35.00 11/26/20 11:11 35.9 11/26/20 11:00 89 167/82 (110) 96 Vapotherm 20.00 35.00 11/26/20 10:00 91 171/76 (107) 94 Vapotherm 20.00 40.00 11/26/20 09:00 86 163/79 (107) 95 Vapotherm 20.00 40.00 11/26/20 08:50 35.9 86 20 167/81 95 Vapotherm 20.00 35 11/26/20 08:47 94 Vapotherm 20.00 35 11/26/20 08:30 Vapotherm 20.00 40 11/26/20 08:19 36.0 85 20 154/80 98 Vapotherm 20.00 40 11/26/20 08:00 87 162/75 (104) 98 Vapotherm 20.00 40.00 11/26/20 07:34 85 11/26/20 07:29 36.0 11/26/20 07:00 86 152/68 (96) 95 Vapotherm 20.00 40.00 11/26/20 06:00 90 143/62 (89) 96 Vapotherm 20.00 40.00 11/26/20 05:14 93 Vapotherm 20.00 40 11/26/20 05:00 85 161/74 (103) 95 Vapotherm 20.00 40.00 I & O 11/27/20 07:00 Intake Total 1015 ml Output Total 4700 ml Balance -3685 ml Height & Weight Height: '" Weight: lbs. oz. kg; 34.48 BMI Method: General Appearance: No Apparent Distress HEENT: PERRL/EOMI Neck: Full Range of Motion Respiratory: Chest Non Tender, Decreased Breath Sounds, Wheezing Cardiovascular: Regular Rate, Rhythm Gastrointestinal: soft, tenderness Extremity: Normal Capillary Refill Neurologic/Psychiatric: Alert Skin: Normal Color Lymphatic: No Adenopathy Results Lab Laboratory Tests 11/25/20 06:31 11/25/20 11:55 11/26/20 03:02 11/27/20 03:30 Assessment/Plan Assessment/Plan Acute respiratory failure s/p surgery - now resolved -Pt was admitted on 10/31 for hemicolectomy. -Vapotherm 40% S/p multiple surgeries last surgery was 11/15 s/p revision of iliostomy/hemicolectomy with colostomy -Surgery is following Sepsis with abdominal abscess - Merrem,and Eraxis Agitation/aggressive behavior -Haldol PRN -Pain control HTN -Lopressor, Lisinopril, Norvasc -Titrate Cardene gtt to D/C -Hydralazine PRN Anemia -monitor S/p hemicolectomy secondary to Colon cancer then ileostomy secondary to torsion. then repeat surgery secondary to persistent intraabdominal sepsis. Debility HX of COPD with oxygen dependance at home Tobacco dependance anemia s/p 4 units of PRBC GIOVANNA BORREGO DO Nov 27, 2020 04:14
[2020-11-27] MEDS ORDERED: KCL 20 MEQ TAB (K-DUR) PO ONE ×2 (04:21→08:00)
[2020-11-27] MEDS: MAGNESIUM 1 GM/100 ML IVPB 100 ML IV SCH ×3 (04:33→07:23)
[2020-11-27] MEDS: SUCRALFATE 1 GM (CARAFATE) TAB PO SCH ×4 (04:33→20:02)
[2020-11-27] MEDS: POTASSIUM CL 10MEQ/50ML IVPB 50 ML IV SCH ×8 (04:33→18:52)
[2020-11-27] MEDS: HALOPERIDOL 5 MG/ML (HALDOL) VIAL IM PRN (04:34)
[2020-11-27] MEDS ORDERED: HYDROmorphone 2 MG/ML VIAL (DILAUDID) IV ONE (08:00)
[2020-11-27] MEDS: NICOTINE PATCH REMOVAL TP SCH (08:03)
[2020-11-27] MEDS: NICOTINE 14 MG (NICODERM) PATCH TD SCH (08:04)
--- NOTE | 2020-11-27 08:29 | Diagnostic Imaging Report ---
INDICATION: Respiratory distress, hypertension, fluid overload. TECHNIQUE: Single view chest 12:15 AM. CORRELATION STUDY: 11/26/2020 FINDINGS: Heart size upper limits of normal. Vasculature overall within normal limits. Mild perihilar and left basilar atelectasis present. No overt infiltrate. IMPRESSION: 1. Bilateral perihilar and left basilar atelectasis. Vasculature relatively normal at follow-up. Dictated by: Dictated on workstation # [id number]
[2020-11-27] MEDS: ANIDULAFUNGIN INJECTION 100 MG in NS (IVPB) 100 ML IV SCH (08:58)
[2020-11-27] MEDS: PANTOPRAZOLE 40 MG (PROTONIX) VIAL IV SCH ×2 (08:58→20:02)
[2020-11-27] MEDS: lisINopril 20 MG (PRINIVIL) TABLET PO SCH (08:59)
[2020-11-27] MEDS: meTOproloL SUCCINATE 50 MG (TOPROL XL) TAB PO SCH (08:59)
[2020-11-27] MEDS: amLODIPine 10 MG (NORVASC) TAB PO SCH (08:59)
[2020-11-27] MEDS: METOCLOPRAMIDE INJ 10 MG/2 ML (REGLAN) IVP SCH ×2 (08:59→20:02)
[2020-11-27] MEDS: RT-ALBUTEROL/IPRATROPIUM 3 ML (DUONEB) VIAL INH SCH ×3 (09:11→18:48)
--- NOTE | 2020-11-27 09:40 | Physical Therapy Evaluation ---
PT Evaluation-General Medical Diagnosis Admission Date Nov 15, 2020 at 12:25 Medical Diagnosis: colon cancer Onset Date: Nov 15, 2020 Therapy Diagnosis Therapy Diagnosis: impaired mobility, strength, endurance Precautions Precautions/Isolations: Fall Prevention, Standard Precautions Referral Physician: Cris Reason for Referral: Evaluation/Treatment Medical History Pertinent Medical History: COPD, HTN Reviewed History: Yes Social History Home: Single Level Current Living Status: Other Family Prior Prior Level of Function SCALE: Activities may be completed with or without assistive devices. 3-Ialjboojnm-ptvphdy completes the activity by him/herself with no assistance from a helper. 5-Set-up or Clean-up Assistance-helper sets up or cleans up; patient completes activity. [place] assists only prior to or following the activity. 4-Supervision or Touching Assistance-helper provides verbal cues and/or touching/steadying and/or contact guard assistance as patient completes activity. Assistance may be provided throughout the activity or intermittently. 3-Partial/Moderate Assistance-helper does LESS THAN HALF the effort. [place] lifts, holds or supports trunk or limbs, but provides less than half the effort. 2-Substantial/Maximal Assistance-helper does MORE THAN HALF the effort. [place] lifts or holds trunk or limbs and provides more than half the effort. 1-Kxqjqappy-efltsj does ALL the effort. Patient does none of the effort to complete the activity. Or, the assistance of 2 or more helpers is required for the patient to complete the activity. If activity was not attempted, code reason: 7-Patient Refused. 9-Not Applicable-not attempted and the patient did not perform the activity before the current illness, exacerbation or injury. 10-Not Attempted due to Environmental Limitations-(lack of equipment, weather restraints, etc.). 88-Not Attempted due to Medical Conditions or Safety Concerns. Bed Mobility: 6 Transfers (B,C,W/C): 6 Gait: 6 Stairs: 6 Indoor Mobility (Ambulation): Independent Stairs: Independent Prior Devices Use: None PT Evaluation-Current Subjective Patient in bed pre tx, agrees to PT, states she doesn't have much pain, nurse states she has had a lot of pain meds. Pt/Family Goals to go home Objective Patient Orientation: Person, Place, Situation Attachments: Oxygen, PEG Tube, Lam Catheter, IV vapotherm ROM/Strength Strength Lower Extremities 3/5 gross BLE Integumentary/Posture Bladder Incontinence: Lam Cath Sensory Vision: Unable to Assess Hearing: Functional Transfers Roll Left to Right (QC): 3 Sit to Lying (QC): 2 Lying to Sitting/Side of Bed(Q: 2 Patient was able to perform supine to sit with max assist, once she was sitting on the side of the bed she could do it on her own, performed a couple of LE exercises, sat for about 5 min before needing to lay back down. Balance Sitting Static: Normal Sitting Dynamic: Normal Treatment BLE seated exercises x10 (AP, LAQ, hip flexion) Assessment/Needs Patient has impaired mobility, strength, endurance. Her legs have gotten a lot weaker. O2 drops while sitting to mid 80's but she can bring it back up to 90's with purse lip breathing Rehab Potential: Fair PT Short Term Goals Short Term Goals Time Frame: Dec 07, 2020 Roll Left & Right: 3 Sit to lyin Lying to sitting on side of be: 3 Sit to stand: 3 Chair/eix-nd-ppxzv transfer: 3 PT Recycling Coordinator Goals [facility] Goals PT Recycling Coordinator Goals Time Frame: Dec 04, 2020 Roll Left & Right (QC): 4 Sit to Lying (QC): 3 Lying-Sitting on Side/Bed(QC): 3 Sit to Stand (QC): 3 Chair/Osy-fk-Uzcus Xfer(QC): 3 PT Plan Problem List Problem List: Activity Tolerance, Functional Strength, Safety, Balance, Gait, Transfer, Bed Mobility, ROM Treatment/Plan Treatment Plan: Continue Plan of Care Treatment Plan: Bed Mobility, Education, Functional Activity Palak, Functional Strength, Gait, Safety, Therapeutic Exercise, Transfers Treatment Duration: Dec 04, 2020 Frequency: 6 times per week Estimated Hrs Per Day: .25 hour per day Safety Risks/Education Patient Education: Correct Positioning, Safety Issues Teaching Recipient: Patient Teaching Methods: Demonstration, Discussion Response to Teaching: Reinforcement Needed Discharge Recommendations Plan Patient will perform bed mobility and transfer training, balance and endurance training, functional strengthening, stair training, gait training, and education, to improve functional mobility and independence at home. Therapy Discharge Recommendati: 24 Hour Supervision Time/GCodes Time In: 915 Time Out: 928 Total Billed Treatment Time: 13 Total Billed Treatment 1 visit RAMOS SMITH PT Nov 27, 2020 09:40
--- NOTE | 2020-11-27 09:47 | Progress Note-Pre Operative ---
Pre-Operative Progress Note H&P Reviewed The H&P was reviewed, patient examined and no changes noted. Date Seen by Provider: Nov 27, 2020 Time Seen by Provider: 09:00 Date H&P Reviewed: Nov 27, 2020 Time H&P Reviewed: 09:00 Pre-Operative Diagnosis: s/p extended right hemicolectomy with wound dehisence and abscess MICHAEL XIONG MD Nov 27, 2020 09:47
[2020-11-27] MEDS ORDERED: POTASSIUM CL 10MEQ/50ML IVPB 50 ML IV ONE (12:36)
--- NOTE | 2020-11-27 12:42 | Cardiology Progress Note ---
Subjective Date Seen by Provider: Nov 27, 2020 Time Seen by Provider: 12:39 Subjective/Events-last exam Patient is laying down in bed. No new complaint Review of Systems General: No Chills, No Night Sweats; Fatigue, Malaise; No Appetite, No Other HEENT: No Head Aches, No Visual Changes, No Eye Pain, No Ear Pain, No Dysphasia, No Sinus Congestion, No Post Nasal Drip, No Sore Throat, No Other Pulmonary: Dyspnea; No Cough, No Pleuritic Chest Pain, No Other Cardiovascular: No: Chest Pain, Palpitations, Orthopnea, Paroxysmal Noc. Dyspnea, Edema, Lt Headedness, Other Focused Exam Lactate Level 11/25/20 11:55: Lactic Acid Level 0.97 Objective-Cardiology Exam Last Set of Vital Signs Vital Signs 11/26/20 11/27/20 11/27/20 11/27/20 11/27/20 08:50 08:00 08:02 08:38 09:11 Temp 36.2 Pulse 90 Resp 20 B/P (MAP) 163/78 (106) Pulse Ox 93 O2 Delivery Vapotherm O2 Flow Rate 15.00 FiO2 35 Capillary Refill : Less Than 3 Seconds I&O Intake and Output 11/27/20 00:00 Intake Total 965 ml Output Total 5325 ml Balance -4360 ml Intake Oral 675 ml Other 290 ml Output Urine Total 3415 ml Stool Total 1525 ml Drainage Total 385 ml General: Alert, Oriented X3, Cooperative, No Acute Distress HEENT: Atraumatic Neck: Supple, No JVD, No Thyromegaly Lungs: Clear to Auscultation Heart: Regular Rate, Normal S1, Normal S2 Abdomen: Normal Bowel Sounds Extremities: No Clubbing, No Cyanosis, No Edema, Normal Pulses, No Tenderness/Swelling Skin: No Rashes, No Breakdown, No Significant Lesion Neuro: Normal Speech, Other (not following commands) Psych/Mental Status: Mental Status NL, Mood NL, Other (not following commands) Results Lab Laboratory Tests 11/27/20 03:30 A/P-Cardiology Admission Diagnosis Acute respiratory failure Sinus tachycardia Hypertension Hyperlipidemia Assessment/Plan Status post acute respiratory failure, extubated on November 18, 2020, improved initially, was transferred back to ICU on November 25, 2020 for acute respiratory failure again, feeling better at this time, still having some shortness of breath. Continue to monitor Hypokalemia, I gave her 40 mEq IV potassium. Monitor electrolytes Confusion, delirium, waxing and waning, better today. Continue to monitor Anemia, significant drop in H&H, see blood transfusion, better at this time, continue to monitor H&H Status post extended right hemicolectomy and ileostomy revision for ileostomy, had her wound VAC replaced, appeared to be feeling better today. Managed by primary care team COPD, followed and managed by primary care physician Sinus tachycardia, secondary to hypoxia, and anemia, started on low-dose beta blockers. Continue to monitor Hypertension, poor control, continue on Toprol to XL 50 mg daily, I am adding lisinopril 20 mg daily and amlodipine 10 mg daily and monitor her tolerance and response Hyperlipidemia monitor lipids Clinical Quality Measures DVT/VTE Risk/Contraindication: Risk Factor Score Per Nursin MAYUR CANNON MD Nov 27, 2020 12:42
--- NOTE | 2020-11-27 13:12 | Progress Note ---
Subjective Date Seen by a Provider: Nov 27, 2020 Time Seen by a Provider: 13:00 Subjective/Events-last exam doing ok. resp status improved. tolerating regular diet. was scheduled for vac change today however patient ate. Focused Exam Lactate Level 11/25/20 11:55: Lactic Acid Level 0.97 Objective Exam Vital Signs Date Time Temp Pulse Resp B/P (MAP) Pulse Ox O2 Delivery O2 Flow Rate FiO2 11/27/20 09:11 93 Vapotherm 15.00 35 11/27/20 08:38 90 11/27/20 08:25 91 Vapotherm 25.00 35 11/27/20 08:02 36.2 11/27/20 08:00 79 163/78 (106) 91 Vapotherm 25.00 35.00 11/27/20 03:00 77 160/64 (96) 94 Vapotherm 25.00 35.00 11/27/20 02:27 94 Vapotherm 25.00 35 11/27/20 02:07 77 172/73 (106) 90 Vapotherm 25.00 35.00 11/27/20 02:05 11/27/20 01:00 83 169/84 (112) 93 Vapotherm 25.00 35.00 11/27/20 01:00 84 11/27/20 00:00 86 169/76 (107) 93 Vapotherm 25.00 35.00 11/27/20 00:00 36.3 11/26/20 23:00 90 153/70 (97) 94 Vapotherm 25.00 35.00 11/26/20 22:00 90 176/79 (111) 92 Vapotherm 25.00 35.00 11/26/20 21:00 92 160/75 (103) 92 Vapotherm 25.00 35.00 11/26/20 20:00 91 Vapotherm 25.00 35 11/26/20 20:00 87 150/60 (90) 90 Vapotherm 25.00 35.00 11/26/20 19:45 36.0 Vapotherm 25.00 35.00 11/26/20 19:00 95 168/71 (103) 89 Vapotherm 20.00 25.00 11/26/20 19:00 95 11/26/20 19:00 Vapotherm 20.00 25.00 11/26/20 18:30 95 Vapotherm 20.00 25 11/26/20 18:00 86 174/79 (110) 89 Vapotherm 20.00 25.00 11/26/20 17:00 92 186/87 (120) 89 Vapotherm 20.00 25.00 11/26/20 16:01 96 182/71 (108) 89 Vapotherm 20.00 25.00 11/26/20 16:00 36.0 11/26/20 15:00 92 171/81 (111) 89 Vapotherm 20.00 25.00 11/26/20 14:15 Vapotherm 20.00 25.00 11/26/20 14:04 95 Vapotherm 20.00 35 11/26/20 14:00 89 177/87 (117) 96 Vapotherm 20.00 35.00 I & O 11/27/20 07:00 Intake Total 1240 ml Output Total 5465 ml Balance -4225 ml Capillary Refill : Less Than 3 Seconds General Appearance: No Apparent Distress Neck: Full Range of Motion Respiratory: Decreased Breath Sounds, Rhonci, Wheezing Cardiovascular: Regular Rate, Rhythm Gastrointestinal: normal bowel sounds, soft, tenderness Extremity: Normal Capillary Refill Neurologic/Psychiatric: Alert, Oriented x3 Skin: Normal Color Lymphatic: No Adenopathy Results Lab Laboratory Tests 11/27/20 03:30: White Blood Count 8.1, Red Blood Count 3.60L, Hemoglobin 10.8#L, Hematocrit 32L, Mean Corpuscular Volume 89, Mean Corpuscular Hemoglobin 30, Mean Corpuscular Hemoglobin Concent 34, Red Cell Distribution Width 15.9H, Platelet Count 146, Mean Platelet Volume 10.6, Immature Granulocyte % (Auto) 1, Neutrophils (%) (Auto) 79H, Lymphocytes (%) (Auto) 14, Monocytes (%) (Auto) 6, Eosinophils (%) (Auto) 1, Basophils (%) (Auto) 0, Neutrophils # (Auto) 6.4, Lymphocytes # (Auto) 1.1, Monocytes # (Auto) 0.5, Eosinophils # (Auto) 0.0, Basophils # (Auto) 0.0, Immature Granulocyte # (Auto) 0.1, Sodium Level 139, Potassium Level 2.8L, Chloride Level 104, Carbon Dioxide Level 23, Anion Gap 12, Blood Urea Nitrogen 19H, Creatinine 0.74, Estimat Glomerular Filtration Rate > 60, BUN/Creatinine Ratio 26, Glucose Level 117H, Calcium Level 7.9L, Phosphorus Level 2.9, Magnesium Level 1.4L Microbiology 11/16/20 MRSA Screen - Final, Complete MRSA not isolated 11/15/20 Gram Stain - Final, Resulted 11/15/20 Anaerobic Culture - Final, Resulted No anaerobes isolated 11/15/20 Surgical Culture - Final, Resulted Bobbi glabrata Bobbi species 11/15/20 Fungal Culture 1 - Preliminary, Resulted Bobbi glabrata Bobbi species Assessment/Plan Assessment/Plan Assess & Plan/Chief Complaint s/p extended right hemicolectomy, end ileostomy, mucous fistula, revision ileostomy, drainage intraabd abscess and VAC placement. will change vac about every 5 days. start a carbapenem. cont TPN cont respiratory support and diuresis. advance to reg diet. wound vac change tomorrow and then possibly definitive closure with biologic mesh. Clinical Quality Measures DVT/VTE Risk/Contraindication: Risk Factor Score Per Nursin MICHAEL XIONG MD Nov 27, 2020 13:12
--- NOTE | 2020-11-27 14:46 | Occupational Therapy Eval ---
OT Evaluation-General/PLF Medical Diagnosis Admission Date Nov 15, 2020 at 12:25 Medical Diagnosis: colon cancer Onset Date: Nov 15, 2020 Therapy Diagnosis Therapy Diagnosis: Weakness, Decreased ADL skills Precautions Precautions/Isolations: Fall Prevention, Standard Precautions Weight Bear Status Weight Bearing Restriction: Weight Bearing/Tolerated Referral Physician: Cris Hernandez Reason: Activity Tolerance, Self Care, Evaluation/Treatment, Strengthening/ROM Medical History Pertinent Medical History: COPD, HTN Current History Pt. was hospitalized on 11-15-20 secondary to colon CA. Pt. has underwent multiple surgeries for bowel resection. Pt. currently has colostomy and ileostomy. Reviewed History: Yes Social History Home: Single Level Current Living Status: Other Family (daughter) ADL-Prior Level of Function SCALE: Activities may be completed with or without assistive devices. 4-Zkbcktyixa-xxeqsqn completes the activity by him/herself with no assistance from a helper. 5-Set-up or Clean-up Assistance-helper sets up or cleans up; patient completes activity. [place] assists only prior to or following the activity. 4-Supervision or Touching Assistance-helper provides verbal cues and/or touching/steadying and/or contact guard assistance as patient completes activity. Assistance may be provided throughout the activity or intermittently. 3-Partial/Moderate Assistance-helper does LESS THAN HALF the effort. [place] lifts, holds or supports trunk or limbs, but provides less than half the effort. 2-Substantial/Maximal Assistance-helper does MORE THAN HALF the effort. [place] lifts or holds trunk or limbs and provides more than half the effort. 4-Vigoxrzyz-iyiezh does ALL the effort. Patient does none of the effort to complete the activity. Or, the assistance of 2 or more helpers is required for the patient to complete the activity. If activity was not attempted, code reason: 7-Patient Refused. 9-Not Applicable-not attempted and the patient did not perform the activity before the current illness, exacerbation or injury. 10-Not Attempted due to Environmental Limitations-(lack of equipment, weather restraints, etc.). 88-Not Attempted due to Medical Conditions or Safety Concerns. ADL PLOF Comments Pt. was independent with daily tasks previous to original hospitalization. Self Care: Independent Functional Cognition: Independent OT Current Status Subjective No pain reported. Appearance Pt. alert. Pt. has just moved from ICU to 4th floor. Mental Status/Objective Patient Orientation: Person Attachments: Colostomy/Ileostomy, Lam Catheter, IV, Oxygen Current Glasses/Contacts: Yes Upper Extremity ROM WFL ADL-Treatment Eating (QC): 5 (Set up of containers and packages. ) Pt. has had increased pain medication, and currently reporting no pain. Pt. has just transferred to 4th floor medical after being in ICU. Pt. reports that she is hungry, and has cold tray. OT obtains other items for her to eat, as pt. reports she doesn't want another tray, but will wait until lunch time. OT o btains water, orange juice, and pudding cup. Pt. requires for pudding and orange juice to be opened, but is able to open the plastic that her spoon is in. She is able to hold pudding cup and feed self. She is able to hold water cup and orange juice. Pt. is also able to wash face once washcloth is handed to her, and is able to brush her hair. Pt. is able to assist with adjusting self in bed for better positioning while eating. She has just sat on up on side of bed with PT, and getting assessed by medical staff. All needs are met and pt. continues to eat and drink when OT is leaving room. Education OT Patient Education: Correct positioning, Modified ADL techniques, Progress toward Goal/Update tx plan, Purpose of tx/functional activities, Reviewed precautions, Rehab process, Transfer techniques Teaching Recipient: Patient Teaching Methods: Demonstration, Discussion Response to Teaching: Verbalize Understanding, Return Demonstration OT Short Term Goals Short Term Goals Time Frame: Dec 03, 2020 Eatin Oral hygiene: 3 Toileting hygiene: 3 Shower/bathe self: 3 Upper body dressin Lower body dressin Putting on/taking off footwear: 3 OT Director Operations Broadcast Goals Director Operations Broadcast Goals Time Frame: Dec 17, 2020 Eating (QC): 6 Oral Hygiene (QC): 6 Toileting Hygiene (QC): 6 Shower/Bathe Self (QC): 4 Upper Body Dressing (QC): 5 Lower Body Dressing (QC): 4 On/Off Footwear (QC): 4 Additional Goals: 1-Demonstrate ADL Tasks, 2-Verbalize Understanding, 3- ImproveStrength/[place]ak 1=Demonstrate adherence to instructed precautions during ADL tasks. 2=Patient will verbalize/demonstrate understanding of assistive devices/modifications for ADL. 3=Patient will improve strength/tolerance for activity to enable patient to perform ADL's. OT Education/Plan Problem List/Assessment Assessment: Decreased Activ Tolerance, Decreased UE Strength, Dependent Transfers, Impaired Bed Mobility, Impaired Funct Balance, Impaired I ADL's, Impaired Self-Care Skills, Restricted Funct UE ROM Discharge Recommendations Plan/Recommendations: Continue POC Comment Equipment needs and discharge location to be determined. Treatment Plan/Plan of Care Treatment,Training & Education: Yes Patient would benefit from OT for education, treatment and training to promote independence in ADL's, mobility, safety and/or upper extremity function for ADL's. Plan of Care: ADL Retraining, Functional Mobility, UE Funct Exercise/Act Treatment Duration: Dec 17, 2020 Frequency: 5 times per week Estimated Hrs Per Day: .25 hour per day Agreement: Yes Rehab Potential: Fair Time/GCodes Start Time: 11:30 Stop Time: 11:50 Total Time Billed (hr/min): 20 Billed Treatment Time 1, KOKI MCGEE OT Nov 27, 2020 14:45
--- NOTE | 2020-11-27 15:35 | Progress Note ---
Subjective Date Seen by a Provider: Nov 27, 2020 Time Seen by a Provider: 09:00 Subjective/Events-last exam Pt in the process of going downstairs to fourth floor Hgb good at 10 Denies any significant pain Working with therapy in the bed Has a pretty good attitude Review of Systems General: Fatigue, Malaise Focused Exam Lactate Level 11/25/20 11:55: Lactic Acid Level 0.97 Objective Exam Last Set of Vital Signs Vital Signs Date Time Temp Pulse Resp B/P (MAP) Pulse Ox O2 Delivery O2 Flow Rate FiO2 11/27/20 14:40 91 Vapotherm 15.00 35 11/27/20 12:00 36.3 83 22 185/74 (111) Capillary Refill : Less Than 3 Seconds I&O Intake and Output 11/27/20 00:00 Intake Total 965 ml Output Total 5325 ml Balance -4360 ml Intake Oral 675 ml Other 290 ml Output Urine Total 3415 ml Stool Total 1525 ml Drainage Total 385 ml General: Alert, Oriented X3, Cooperative, No Acute Distress Lungs: Clear to Auscultation, Normal Air Movement Heart: Regular Rate, Normal S1, Normal S2, No Murmurs Psych/Mental Status: Mental Status NL, Mood NL Results Lab Laboratory Tests 11/27/20 03:30: White Blood Count 8.1, Red Blood Count 3.60L, Hemoglobin 10.8#L, Hematocrit 32L, Mean Corpuscular Volume 89, Mean Corpuscular Hemoglobin 30, Mean Corpuscular Hemoglobin Concent 34, Red Cell Distribution Width 15.9H, Platelet Count 146, Mean Platelet Volume 10.6, Immature Granulocyte % (Auto) 1, Neutrophils (%) (Auto) 79H, Lymphocytes (%) (Auto) 14, Monocytes (%) (Auto) 6, Eosinophils (%) (Auto) 1, Basophils (%) (Auto) 0, Neutrophils # (Auto) 6.4, Lymphocytes # (Auto) 1.1, Monocytes # (Auto) 0.5, Eosinophils # (Auto) 0.0, Basophils # (Auto) 0.0, Immature Granulocyte # (Auto) 0.1, Sodium Level 139, Potassium Level 2.8L, Chloride Level 104, Carbon Dioxide Level 23, Anion Gap 12, Blood Urea Nitrogen 19H, Creatinine 0.74, Estimat Glomerular Filtration Rate > 60, BUN/Creatinine Ratio 26, Glucose Level 117H, Calcium Level 7.9L, Phosphorus Level 2.9, Magnesium Level 1.4L Microbiology 11/16/20 MRSA Screen - Final, Complete MRSA not isolated 11/15/20 Gram Stain - Final, Resulted 11/15/20 Anaerobic Culture - Final, Resulted No anaerobes isolated 11/15/20 Surgical Culture - Final, Resulted Bobbi glabrata Bobbi species 11/15/20 Fungal Culture 1 - Preliminary, Resulted Bobbi glabrata Bobbi species Assessment/Plan Assessment/Plan Assess & Plan/Chief Complaint Assessment: Acute respiratory insufficiency requiring ICU transfer 11/25/20 Colon cancer Bowel resection with diverting ileostomy Psychosis Anemia requiring transfusion Severe [place] Abdominal pain Hyponatremia Plan: 4th floor move Monitor closely 11/23/20: TPN Replace CL Monitor closely 11/24/20: Monitor closely TPN 11/25/20: Move to ICU [place] closely Appreciate Dr Moreno 11/26/20: ICI Vapotherm Monitor closely 11/27/20: Move to 4th [place] O2 Monitor labs Diagnosis/Problems Diagnosis/Problems (1) Ileus following gastrointestinal surgery (2) Presbycusis of both ears (3) Ileostomy in place (4) Anemia due to acute blood loss (5) Colon cancer (6) Myopathy (7) Hyponatremia (8) COPD (chronic obstructive pulmonary disease) (9) S/P right hemicolectomy Clinical Quality Measures DVT/VTE Risk/Contraindication: Risk Factor Score Per Nursin WILFREDO MARTÍNEZ DO Nov 27, 2020 15:35
--- NOTE | 2020-11-27 15:52 | Progress Note-Pre Operative ---
Pre-Operative Progress Note H&P Reviewed The H&P was reviewed, patient examined and no changes noted. Date Seen by Provider: Nov 27, 2020 Time Seen by Provider: 16:00 Date H&P Reviewed: Nov 27, 2020 Time H&P Reviewed: 16:00 Pre-Operative Diagnosis: hx extended right hemicolectomy with wound dehiscence and abscess MICHAEL XIONG MD Nov 27, 2020 15:52
[2020-11-27] MEDS: ENOXAPARIN 40 MG/0.4 ML (LOVENOX) SYR SC SCH (20:02)
[2020-11-28] VITALS (9 sets, daily range): BP systolic 134–189; BP diastolic 63–84
[2020-11-28] MEDS: HYDROmorphone 2 MG/ML VIAL (DILAUDID) IV PRN ×2 (01:56→11:13)
[2020-11-28] MEDS: MEROPENEM 500 MG in WATER (STERILE) FOR INJECTION 10 ML IV SCH ×3 (03:38→20:57)
[2020-11-28] MEDS: hydrALAZINE (APESOLINE) 20 MG/ML VIAL IV PRN (04:34)
[2020-11-28] MEDS: SUCRALFATE 1 GM (CARAFATE) TAB PO SCH ×4 (05:34→20:58)
[2020-11-28 05:39] LABS: BASOPHILS % (AUTO) 0 % (0-10); EOSINOPHILS % (AUTO) 1 % (0-10); HEMATOCRIT 30 % (35-52); HEMOGLOBIN 9.9 g/dL (11.5-16.0); LYMPHOCYTES # (AUTO) 1.4 10^3/uL (1.0-4.0); LYMPHOCYTES % (AUTO) 19 % (12-44); MEAN CORPUSCULAR HEMOGLOBIN 30 pg (25-34); MEAN CORPUSCULAR HGB CONC 33 g/dL (32-36); MEAN CORPUSCULAR VOLUME 90 fL (80-99); MEAN PLATELET VOLUME 11.4 fL (9.0-12.2); MONOCYTES # (AUTO) 0.5 10^3/uL (0.0-1.0); MONOCYTES % (AUTO) 6 % (0-12); NEUTROPHILS # (AUTO) 5.3 10^3/uL (1.8-7.8); NEUTROPHILS % (AUTO) 73 % (42-75); PLATELET COUNT 141 10^3/uL (130-400); WHITE BLOOD COUNT 7.3 10^3/uL (4.3-11.0)
[2020-11-28 05:57] LABS: ALANINE AMINOTRANSFERASE 19 U/L (0-55); ALKALINE PHOSPHATASE 237 U/L (40-136); BILIRUBIN,TOTAL 0.6 MG/DL (0.1-1.0); BUN/CREATININE RATIO 24; CALCIUM 7.9 MG/DL (8.5-10.1); CARBON DIOXIDE 24 MMOL/L (21-32); CHLORIDE 106 MMOL/L (98-107); CREATININE SERUM 0.75 MG/DL (0.60-1.30); GFR ESTIMATED > 60; GLUCOSE 108 MG/DL (70-105); POTASSIUM 3.8 MMOL/L (3.6-5.0); SODIUM 139 MMOL/L (135-145); TOTAL PROTEIN 5.1 GM/DL (6.4-8.2)
[2020-11-28] MEDS: RT-ALBUTEROL/IPRATROPIUM 3 ML (DUONEB) VIAL INH SCH ×3 (06:15→19:28)
[2020-11-28] MEDS: PANTOPRAZOLE 40 MG (PROTONIX) VIAL IV SCH ×2 (08:50→20:57)
[2020-11-28] MEDS: meTOproloL SUCCINATE 50 MG (TOPROL XL) TAB PO SCH (08:53)
[2020-11-28] MEDS: lisINopril 20 MG (PRINIVIL) TABLET PO SCH (08:53)
[2020-11-28] MEDS: METOCLOPRAMIDE INJ 10 MG/2 ML (REGLAN) IVP SCH ×2 (08:53→20:57)
[2020-11-28] MEDS: amLODIPine 10 MG (NORVASC) TAB PO SCH (08:53)
[2020-11-28] MEDS: NICOTINE PATCH REMOVAL TP SCH (08:58)
[2020-11-28] MEDS: NICOTINE 14 MG (NICODERM) PATCH TD SCH (09:00)
--- NOTE | 2020-11-28 09:19 | Physical Therapy Daily Note ---
PT Daily Note-Current Subjective Patient agrees to exercises. No OOB activity per RN due to wound vac change/surgery on this date. Transfers SCALE: Activities may be completed with or without assistive devices. 5-Zqgvpnymum-eovczkb completes the activity by him/herself with no assistance from a helper. 5-Set-up or Clean-up Assistance-helper sets up or cleans up; patient completes activity. [place] assists only prior to or following the activity. 4-Supervision or Touching Assistance-helper provides verbal cues and/or touching/steadying and/or contact guard assistance as patient completes activity. Assistance may be provided throughout the activity or intermittently. 3-Partial/Moderate Assistance-helper does LESS THAN HALF the effort. [place] lifts, holds or supports trunk or limbs, but provides less than half the effort. 2-Substantial/Maximal Assistance-helper does MORE THAN HALF the effort. [place] lifts or holds trunk or limbs and provides more than half the effort. 1-Fpzpuheqi-qzmplp does ALL the effort. Patient does none of the effort to complete the activity. Or, the assistance of 2 or more helpers is required for the patient to complete the activity. If activity was not attempted, code reason: 7-Patient Refused. 9-Not Applicable-not attempted and the patient did not perform the activity before the current illness, exacerbation or injury. 10-Not Attempted due to Environmental Limitations-(lack of equipment, weather restraints, etc.). 88-Not Attempted due to Medical Conditions or Safety Concerns. Roll Left & Right (QC): 1 (x 2 to reposition up in bed) Exercises Supine Ex: Ankle pumps, Heel Slides, Straight leg raise, Hip abd/add Supine Reps: 12 (AAROM) Assessment Patient tolerated treatment. PT to increase activity as tolerated by patient. Continued severe weakness. PT Short Term Goals Short Term Goals Time Frame: Dec 07, 2020 Roll Left & Right: 3 Sit to lyin Lying to sitting on side of be: 3 Sit to stand: 3 Chair/koc-qc-qzhsj transfer: 3 PT Door Person Goals Door Person Goals PT Group Home Goals Time Frame: Dec 04, 2020 Roll Left & Right (QC): 4 Sit to Lying (QC): 3 Lying-Sitting on Side/Bed(QC): 3 Sit to Stand (QC): 3 Chair/Rdr-va-Lvdam Xfer(QC): 3 PT Plan Treatment/Plan Treatment Plan: Continue Plan of Care Treatment Plan: Bed Mobility, Education, Functional Activity [place], Functional Strength, Gait, Safety, Therapeutic Exercise, Transfers Treatment Duration: Dec 04, 2020 Frequency: 6 times per week Estimated Hrs Per Day: .25 hour per day Time/GCodes Time In: 900 Time Out: 910 Total Billed Treatment Time: 10 Total Billed Treatment 1 visit EX 10 min ROBERT SCHWAB PT Nov 28, 2020 09:19
[2020-11-28] MEDS: ANIDULAFUNGIN INJECTION 100 MG in NS (IVPB) 100 ML IV SCH (09:34)
--- NOTE | 2020-11-28 10:14 | Pulmonary Progress Note ---
Subjective Time Seen by a Provider: 10:12 Sepsis Event Evaluation Height, Weight, BMI Height: '" Weight: lbs. oz. kg; 34.48 BMI Method: Focused Exam Lactate Level 11/25/20 11:55: Lactic Acid Level 0.97 Exam Exam Vital Signs Date Time Temp Pulse Resp B/P (MAP) Pulse Ox O2 Delivery O2 Flow Rate FiO2 11/28/20 08:00 35.9 78 20 159/68 (98) 98 Vapotherm 11/28/20 06:16 96 Vapotherm 40.00 45 11/28/20 04:17 36.5 83 20 189/84 (119) 94 Vapotherm 15.00 35.00 11/28/20 01:36 92 Vapotherm 15.00 35 11/28/20 00:28 36.8 87 20 134/63 (86) 95 Vapotherm 15.00 35.00 11/27/20 21:58 91 Vapotherm 15.00 35 11/27/20 21:29 Vapotherm 15.00 35 11/27/20 20:09 36.6 83 18 156/85 (108) 95 Vapotherm 15.00 35.00 11/27/20 18:49 92 Vapotherm 15.00 35 11/27/20 16:31 36.6 76 16 145/68 (93) 96 Vapotherm 15.00 35.00 11/27/20 14:40 91 Vapotherm 15.00 35 11/27/20 12:00 36.3 83 22 185/74 (111) 100 Vapotherm 15.00 35.00 I & O 11/28/20 07:00 Intake Total 1150 ml Output Total 1990 ml Balance -840 ml Height & Weight Height: '" Weight: lbs. oz. kg; 34.48 BMI Method: General Appearance: No Apparent Distress HEENT: PERRL/EOMI Neck: Full Range of Motion Respiratory: Decreased Breath Sounds, Rhonci, Wheezing Cardiovascular: Regular Rate, Rhythm Gastrointestinal: normal bowel sounds, soft, tenderness Extremity: Normal Capillary Refill Neurologic/Psychiatric: Alert, Oriented x3 Skin: Normal Color Lymphatic: No Adenopathy Results Lab Laboratory Tests 11/27/20 03:30 11/28/20 05:26 Assessment/Plan Assessment/Plan Acute respiratory failure s/p surgery - now resolved -Pt was admitted on 10/31 for hemicolectomy. -Vapotherm 40%-- Titrate to D/C S/p multiple surgeries last surgery was 11/15 s/p revision of iliostomy/hemicolectomy with colostomy -Surgery is following Sepsis with abdominal abscess - Merrem,and Eraxis Agitation/aggressive behavior -Haldol PRN -Pain control HTN -Lopressor, Lisinopril, Norvasc -Titrate Cardene gtt to D/C -Hydralazine PRN Anemia -monitor S/p hemicolectomy secondary to Colon cancer then ileostomy secondary to torsion. repeat surgery secondary to persistent intraabdominal sepsis. Debility HX of COPD with oxygen dependance at home Tobacco dependance anemia s/p 4 units of PRBC GIOVANNA BORREGO DO Nov 28, 2020 10:13
--- NOTE | 2020-11-28 10:22 | Cardiology Progress Note ---
Subjective Date Seen by Provider: Nov 28, 2020 Time Seen by Provider: 09:00 Subjective/Events-last exam patient was seen at bedside, laying down comfortably, no new complaint Review of Systems General: No Chills, No Night Sweats; Fatigue, Malaise; No Appetite, No Other HEENT: No Head Aches, No Visual Changes, No Eye Pain, No Ear Pain, No Dysphasia, No Sinus Congestion, No Post Nasal Drip, No Sore Throat, No Other Pulmonary: No Dyspnea, No Cough, No Pleuritic Chest Pain, No Other Cardiovascular: No: Chest Pain, Palpitations, Orthopnea, Paroxysmal Noc. Dyspnea, Edema, Lt Headedness, Other Focused Exam Lactate Level 11/25/20 11:55: Lactic Acid Level 0.97 Objective-Cardiology Exam Last Set of Vital Signs Vital Signs 11/28/20 11/28/20 06:16 08:00 Temp 35.9 Pulse 78 Resp 20 B/P (MAP) 159/68 (98) Pulse Ox 98 O2 Delivery Vapotherm O2 Flow Rate 40.00 FiO2 45 Capillary Refill : Less Than 3 Seconds I&O Intake and Output 11/28/20 00:00 Intake Total 1525 ml Output Total 2900 ml Balance -1375 ml Intake Oral 925 ml IV Total 600 ml Output Urine Total 1000 ml Stool Total 875 ml Drainage Total 1025 ml General: Alert, Oriented X3, Cooperative, No Acute Distress HEENT: Atraumatic Neck: Supple, No JVD, No Thyromegaly Lungs: Clear to Auscultation, Normal Air Movement Heart: Regular Rate, Normal S1, Normal S2, No Murmurs Abdomen: Normal Bowel Sounds Extremities: No Clubbing, No Cyanosis, No Edema, Normal Pulses, No Tenderness/Swelling Skin: No Rashes, No Breakdown, No Significant Lesion Neuro: Normal Speech, Other (not following commands) Psych/Mental Status: Mental Status NL, Mood NL Results Lab Laboratory Tests 11/28/20 05:26 A/P-Cardiology Admission Diagnosis Acute respiratory failure Sinus tachycardia Hypertension Hyperlipidemia Assessment/Plan Status post acute respiratory failure, extubated on November 18, 2020, improved initially, was transferred back to ICU on November 25, 2020 for acute respiratory failure again, feeling better at this time, still having some shortness of breath. Continue to monitor Confusion, delirium, waxing and waning, better today. Continue to monitor Anemia, significant drop in H&H, see blood transfusion, better at this time, continue to monitor H&H Status post extended right hemicolectomy and ileostomy revision for ileostomy, had her wound VAC replaced, appeared to be feeling better today. Managed by primary care team COPD, followed and managed by primary care physician Sinus tachycardia, secondary to hypoxia, and anemia, started on low-dose beta blockers. Continue to monitor Hypertension, poor control, currently on multiple blood pressure medication, continue to monitor blood pressure Hyperlipidemia monitor lipids Clinical Quality Measures DVT/VTE Risk/Contraindication: Risk Factor Score Per Nursin MAYUR CANNON MD Nov 28, 2020 10:22
--- NOTE | 2020-11-28 11:32 | Occupational Ther Daily Note ---
OT Current Status-Daily Note Subjective No pain reported. Pt. indicates that she would like "turned in bed." Mental Status/Objective Patient Orientation: Person, Place Attachments: Colostomy/Ileostomy, Drains, Lam Catheter, IV, Oxygen ADL-Treatment Therapy Code Descriptions/Definitions Functional [place] Measure: 0=Not Assessed/NA 4=Minimal Assistance 1=Total Assistance 5=Supervision or Setup 2=Maximal Assistance 6=Modified [place] 3=Moderate Assistance 7=Complete IndependenceSCALE: Activities may be completed with or without assistive devices. 7-Optqlymihd-ghpmvfp completes the activity by him/herself with no assistance from a helper. 5-Set-up or Clean-up Assistance-helper sets up or cleans up; patient completes activity. [place] assists only prior to or following the activity. 4-Supervision or Touching Assistance-helper provides verbal cues and/or touching/steadying and/or contact guard assistance as patient completes activity. Assistance may be provided throughout the activity or intermittently. 3-Partial/Moderate Assistance-helper does LESS THAN HALF the effort. [place] lifts, holds or supports trunk or limbs, but provides less than half the effort. 2-Substantial/Maximal Assistance-helper does MORE THAN HALF the effort. [place] lifts or holds trunk or limbs and provides more than half the effort. 1-Wlwulrabl-lwmqkc does ALL the effort. Patient does none of the effort to complete the activity. Or, the assistance of 2 or more helpers is required for the patient to complete the activity. If activity was not attempted, code reason: 7-Patient Refused. 9-Not Applicable-not attempted and the patient did not perform the activity before the current illness, exacerbation or injury. 10-Not Attempted due to Environmental Limitations-(lack of equipment, weather restraints, etc.). 88-Not Attempted due to Medical Conditions or Safety Concerns. Other Treatment Pt. in bed on her side. Pt. awaiting surgery for wound vac change. Pt. indicates that she is uncomfortable in bed on her side. She is positioned on her right side. OT removes all pillows, and then facilitates pt. rolling to left side. Pt. is able to assist, but overall requires max assistance. OT re- positions pillows for comfort and pressure control. Pt. washes face with wet washcloth, and then completes 4 bilateral hand exercises x 15 reps each for mobility and strength. Tolerated well. All needs met and pt. reports she is comfortable when OT leaves room. Education OT Patient Education: Correct positioning, Exercise program, Progress toward Goal/Update tx plan, Purpose of tx/functional activities, Reviewed precautions, Rehab process, Transfer techniques Teaching Recipient: Patient Teaching Methods: Demonstration, Discussion Response to Teaching: Verbalize Understanding, Return Demonstration OT Short Term Goals Short Term Goals Time Frame: Dec 03, 2020 Eatin Oral hygiene: 3 Toileting hygiene: 3 Shower/bathe self: 3 Upper body dressin Lower body dressin Putting on/taking off footwear: 3 OT General Ledger Bookkeeper Goals [facility] Goals Time Frame: Dec 17, 2020 Eating (QC): 6 Oral Hygiene (QC): 6 Toileting Hygiene (QC): 6 Shower/Bathe Self (QC): 4 Upper Body Dressing (QC): 5 Lower Body Dressing (QC): 4 On/Off Footwear (QC): 4 Additional Goals: 1-Demonstrate ADL Tasks, 2-Verbalize Understanding, 3-ImproveStrength/[place] 1=Demonstrate adherence to instructed precautions during ADL tasks. 2=Patient will verbalize/demonstrate understanding of assistive devices/modifications for ADL. 3=Patient will improve strength/tolerance for activity to enable patient to perform ADL's. OT Education/Plan Problem List/Assessment Assessment: Decreased Activ Tolerance, Dependent Transfers, Impaired Bed Mobility, Impaired I ADL's, Impaired Self-Care Skills Discharge Recommendations Plan/Recommendations: Continue POC Therapy Discharge Recommendati: Post Acute OT Treatment Plan/Plan of Care Treatment,Training & Education: Yes Patient would benefit from OT for education, treatment and training to promote independence in ADL's, mobility, safety and/or upper extremity function for ADL's. Plan of Care: ADL Retraining, Functional Mobility, UE Funct Exercise/Act Treatment Duration: Dec 17, 2020 Frequency: 5 times per week Estimated Hrs Per Day: .25 hour per day Agreement: Yes Rehab Potential: Fair Time/GCodes Start Time: 09:50 Stop Time: 10:05 Total Time Billed (hr/min): 15 Billed Treatment Time 1, KOKI BROWN OT Nov 28, 2020 11:32
--- NOTE | 2020-11-28 11:41 | Progress Note ---
Subjective Date Seen by a Provider: Nov 28, 2020 Time Seen by a Provider: 11:45 Subjective/Events-last exam Patient doing well except on Vapotherm Going back to surgery for changing of wound vac Sister at bedside No pain CHecked meds and labs Review of Systems General: Fatigue Pulmonary: Dyspnea Focused Exam Lactate Level 11/25/20 11:55: Lactic Acid Level 0.97 Objective Exam Last Set of Vital Signs Vital Signs Date Time Temp Pulse Resp B/P (MAP) Pulse Ox O2 Delivery O2 Flow Rate FiO2 11/28/20 08:00 35.9 78 20 159/68 (98) 98 Vapotherm 11/28/20 06:16 40.00 45 Capillary Refill : Less Than 3 Seconds I&O Intake and Output 11/28/20 00:00 Intake Total 1525 ml Output Total 2900 ml Balance -1375 ml Intake Oral 925 ml IV Total 600 ml Output Urine Total 1000 ml Stool Total 875 ml Drainage Total 1025 ml General: Alert, Oriented X3, Cooperative, No Acute Distress Lungs: Clear to Auscultation, Normal Air Movement Heart: Regular Rate, Normal S1, Normal S2, No Murmurs Results Lab Laboratory Tests 11/28/20 05:26: White Blood Count 7.3, Red Blood Count 3.34L, Hemoglobin 9.9L, Hematocrit 30L, Mean Corpuscular Volume 90, Mean Corpuscular Hemoglobin 30, Mean Corpuscular Hemoglobin Concent 33, Red Cell Distribution Width 16.2H, Platelet Count 141, Mean Platelet Volume 11.4, Immature Granulocyte % (Auto) 1, Neutrophils (%) (Auto) 73, Lymphocytes (%) (Auto) 19, Monocytes (%) (Auto) 6, Eosinophils (%) (Auto) 1, Basophils (%) (Auto) 0, Neutrophils # (Auto) 5.3, Lymphocytes # (Auto) 1.4, Monocytes # (Auto) 0.5, Eosinophils # (Auto) 0.0, Basophils # (Auto) 0.0, Immature Granulocyte # (Auto) 0.0, Sodium Level 139, Potassium Level 3.8, Chloride Level 106, Carbon Dioxide Level 24, Anion Gap 9, Blood Urea Nitrogen 18, Creatinine 0.75, Estimat Glomerular Filtration Rate > 60, BUN/Creatinine Ratio 24, Glucose Level 108H, Calcium Level 7.9L, Corrected Calcium 9.5, Total Bilirubin 0.6, Aspartate Amino Transf (AST/SGOT) 24, Alanine Aminotransferase (ALT/SGPT) 19, Alkaline Phosphatase 237H, Total Protein 5.1L, Albumin 2.0L Microbiology 11/16/20 MRSA Screen - Final, Complete MRSA not isolated 11/15/20 Gram Stain - Final, Resulted 11/15/20 Anaerobic Culture - Final, Resulted No anaerobes isolated 11/15/20 Surgical Culture - Final, Resulted Bobbi glabrata Bobbi species 11/15/20 Fungal Culture 1 - Preliminary, Resulted Bobbi glabrata Bobbi species Assessment/Plan Assessment/Plan Assess & Plan/Chief Complaint Assessment: Acute respiratory insufficiency requiring ICU transfer 11/25/20 Colon cancer Bowel resection with diverting ileostomy Psychosis Anemia requiring transfusion Severe ENTERPRISE Abdominal pain Hyponatremia Plan: 4th floor move Monitor closely 11/23/20: TPN Replace CL Monitor closely 11/24/20: Monitor closely TPN 11/25/20: Move to ICU [place] closely Appreciate Dr Moreno 11/26/20: ICI Vapotherm Monitor closely 11/27/20: Move to 4th Wean O2 Monitor labs 11/28/20: PT OT Wound vac change Vapotherm wean Diagnosis/Problems Diagnosis/Problems (1) Ileus following gastrointestinal surgery (2) Presbycusis of both ears (3) Ileostomy in place (4) Anemia due to acute blood loss (5) Colon cancer (6) Myopathy (7) Hyponatremia (8) COPD (chronic obstructive pulmonary disease) (9) S/P right hemicolectomy Clinical Quality Measures DVT/VTE Risk/Contraindication: Risk Factor Score Per Nursin WILFREDO MARTÍNEZ DO Nov 28, 2020 11:41
[2020-11-28] MEDS ORDERED: PROPOFOL INJECTION 50 ML IV ONE (12:57)
[2020-11-28] MEDS ORDERED: fentaNYL INJECTION 100 MCG/2 ML AMP ONE (12:58)
[2020-11-28] MEDS: PATIENT MAY USE OWN MED,SINGLE MED INH SCH (16:17)
--- NOTE | 2020-11-28 16:23 | Progress Note-Pre Operative ---
Pre-Operative Progress Note H&P Reviewed The H&P was reviewed, patient examined and no changes noted. Date Seen by Provider: Nov 28, 2020 Time Seen by Provider: 16:20 Date H&P Reviewed: Nov 27, 2020 Time H&P Reviewed: 16:00 Pre-Operative Diagnosis: hx extended right hemicolectomy with wound dehiscence and abscess REE KING APRN Nov 28, 2020 16:23
--- NOTE | 2020-11-28 16:25 | Progress Note-Pre Operative ---
Pre-Operative Progress Note H&P Reviewed The H&P was reviewed, patient examined and no changes noted. Date Seen by Provider: Nov 28, 2020 Time Seen by Provider: 16:20 Date H&P Reviewed: Nov 28, 2020 Time H&P Reviewed: 16:20 Pre-Operative Diagnosis: s/p extended right hemicolectomy with wound dehisence and abscess MICHAEL XIONG MD Nov 28, 2020 16:25
[2020-11-28] MEDS ORDERED: LACTATED RINGERS 1,000 ML IV PRN (16:45)
--- NOTE | 2020-11-28 16:58 | Progress Note-Post Operative ---
Post-Operative Progess Note Surgeon (s)/Metal Worker (s) Surgeon MICHAEL XIONG MD Metal Worker: padmaja woods HAND I BLOCKER Pre-Operative Diagnosis s/p extended right hemicolectomy with wound dehisence and abscess Post-Operative Diagnosis same Procedure & Operative Findings Date of Procedure 11/28/20 Procedure Performed/Findings open abdominal wound vac change. Anesthesia Type mac Estimated Blood Loss Estimated blood loss (mL): minimal Specimens/Packing Specimens Removed none MICHAEL XIONG MD Nov 28, 2020 16:58
--- NOTE | 2020-11-28 17:06 | Anesthesia-General Post-Op ---
MAC Patient Condition Mental Status/LOC: Same as Preop Cardiovascular: Satisfactory Nausea/Vomiting: Absent Respiratory: Satisfactory Pain: Controlled Complications: Absent Post Op Complications Complications None Follow Up Care/Instructions Patient Instructions None needed. Anesthesiology Discharge Order Discharge Order Patient is doing well, no complaints, stable vital signs, no apparent adverse anesthesia problems. No complications reported per nursing. MALATHI BAER CRNA Nov 28, 2020 17:06
[2020-11-28] MEDS ORDERED: ONDANSETRON 4 MG/2 ML (SDV) Z0FRAN IVP PRN (17:15)
[2020-11-28] MEDS ORDERED: morphine INJ 10 MG/ML 1ML (SYR OR VIAL) IVP ONE (17:15)
--- NOTE | 2020-11-28 20:42 | OPERATIVE REPORT ---
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 PROCEDURE: Reopening recent laparotomy, placement of ABThera wound VAC. SURGEON: Michael Xiong MD. [employer] OFFICER: Mick Alvarez APRN. ANESTHESIA: Monitored anesthesia care. ESTIMATED BLOOD LOSS: Minimal. FINDINGS: No ischemic bowel, mild fibrino-exudative material. The fascia, subcutaneous tissue and skin appeared to be well perfused with no necrotic debris. DISPOSITION: The patient tolerated the procedure well. INDICATIONS: The patient is a 75-year-old female, who was found to have a large hypermetabolic mass involving the transverse colon on a PET scan. She was found to be hyponatremic and underwent a CT scan and was found to have a right lower lobe nodule as well as a right renal lesion, which were of indeterminate significance. She had a colonoscopy before; however, it was greater than 30 years ago. She underwent a colonoscopy on 10/02/2010 and was found to have a near obstructing transverse colonic lesion, which was biopsied, and the pathology came back as adenocarcinoma. On 10/31/2020, she underwent an attempted laparoscopic extended right hemicolectomy; however, this was converted to open. She then underwent an ileocolonic anastomosis. She did well postoperatively with adequate pain control and stable vital signs; however, did not develop any significant bowel function. After 7 days, a Gastrografin small bowel follow through was performed, which did not show any contrast within the colon within 10 hours. On 11/10/2020, she underwent reopening of recent laparotomy, resection of the ileocolonic anastomosis as well as end ileostomy and mucous fistula placement. She did well postoperatively and did not have any fever, no chills and did have a small amount of ileostomy output and was transferred to acute inpatient rehabilitation; however, again developed abdominal distention and significant leukocytosis. On 11/15/2020, she underwent Reopening of recent laparotomy revision and end ileostomy as well as placement of abdominal wound VAC for complete wound dehiscence as well as an intra-abdominal abscess. We then reopened the laparotomy and change the wound VAC last on 11/20/2020. We will again proceed with removal and replacement of the wound VAC as well as reevaluation of the wound. DETAILS OF PROCEDURE: The patient was brought to the operating room, laid supine on the table. After adequate IV pain and sedative medications and monitored anesthesia care, the abdomen was prepped and draped in standard surgical fashion. The previous wound VAC was then removed and there was intact skin, subcutaneous tissue as well as fascia. There was some mild amount of fibrino-exudative debris within the peritoneal cavity; however, no signs of any intraabdominal abscess or infection. There were no signs of ischemia nor any necrosis. The ABThera intraperitoneal portion of the wound VAC was then cut to appropriate size and placed into the peritoneal cavity. The sponge was placed over top, followed by a large pore black sponge followed by sealant and the placement of a wound VAC with good seal identified. The patient tolerated the procedure well. We will continue current therapies and treatments and proceed with reevaluation of the wound next week and likely more definitive closure with placement of a biologic mesh and then placed a standard wound VAC over this and allowed the remainder of the tissue to granulate in by secondary intention. Job ID: [id number] DocumentID: [id number] Dictated Date: 11/28/2020 17:06:24 Human Resources Hr Representative Date: 11/28/2020 20:42:07 Dictated By: MICHAEL XIONG MD
[2020-11-28] MEDS: ENOXAPARIN 40 MG/0.4 ML (LOVENOX) SYR SC SCH (20:58)
[2020-11-29] VITALS (7 sets, daily range): BP systolic 132–156; BP diastolic 62–91
[2020-11-29] MEDS: MELATONIN 3 MG TABLET PO PRN ×2 (01:48→20:09)
[2020-11-29] MEDS: fentaNYL INJECTION 100 MCG/2 ML AMP IVP PRN (03:10)
[2020-11-29] MEDS: MEROPENEM 500 MG in WATER (STERILE) FOR INJECTION 10 ML IV SCH ×2 (04:43→14:13)
--- NOTE | 2020-11-29 06:38 | Pulmonary Progress Note ---
Subjective Time Seen by a Provider: 06:38 Sepsis Event Evaluation Height, Weight, BMI Height: '" Weight: lbs. oz. kg; 34.48 BMI Method: Exam Exam Vital Signs Date Time Temp Pulse Resp B/P (MAP) Pulse Ox O2 Delivery O2 Flow Rate FiO2 11/29/20 04:00 36.2 72 20 134/62 (86) 97 Vapotherm 11/29/20 00:00 36.3 74 20 138/65 (89) 96 Vapotherm 11/28/20 21:48 Vapotherm 35.00 40 11/28/20 19:28 98 Vapotherm 40.00 45 11/28/20 19:00 36.0 72 11 142/73 (96) 97 11/28/20 17:50 35.5 66 16 147/68 (94) 95 11/28/20 17:30 OxyMask 4 11/28/20 17:20 36.1 14 160/81 (107) 97 OxyMask 4 11/28/20 17:15 OxyMask 4 11/28/20 17:10 14 153/77 (102) 96 OxyMask 4 11/28/20 17:00 36 16 142/78 (99) 95 OxyMask 6 11/28/20 17:00 OxyMask 6 11/28/20 12:00 36.2 73 18 161/70 (100) 97 Vapotherm 40.00 45.00 11/28/20 09:00 Vapotherm 40.00 45 11/28/20 08:00 35.9 78 20 159/68 (98) 98 Vapotherm I & O 11/29/20 07:00 Intake Total 1050 ml Output Total 1510 ml Balance -460 ml Height & Weight Height: '" Weight: lbs. oz. kg; 34.48 BMI Method: General Appearance: No Apparent Distress HEENT: PERRL/EOMI Neck: Full Range of Motion Respiratory: Decreased Breath Sounds, Rhonci, Wheezing Cardiovascular: Regular Rate, Rhythm Gastrointestinal: normal bowel sounds, soft, tenderness Extremity: Normal Capillary Refill Neurologic/Psychiatric: Alert, Oriented x3 Skin: Normal Color Lymphatic: No Adenopathy Results Lab Laboratory Tests 11/28/20 05:26 Assessment/Plan Assessment/Plan Acute respiratory failure s/p surgery - now resolved -Pt was admitted on 10/31 for hemicolectomy. -Vapotherm 40%-- Titrate to D/C S/p multiple surgeries last surgery was 11/15 s/p revision of iliostomy/hemicolectomy with colostomy -Surgery is following Sepsis with abdominal abscess - Merrem,and Eraxis Agitation/aggressive behavior -Haldol PRN -Pain control HTN -Lopressor, Lisinopril, Norvasc -Titrate Cardene gtt to D/C -Hydralazine PRN Anemia -monitor S/p hemicolectomy secondary to Colon cancer then ileostomy secondary to torsion. repeat surgery secondary to persistent intraabdominal sepsis. Debility HX of COPD with oxygen dependance at home Tobacco dependance anemia s/p 4 units of PRBC GIOVANNA BORREGO DO Nov 29, 2020 06:38
[2020-11-29] MEDS: SUCRALFATE 1 GM (CARAFATE) TAB PO SCH ×4 (06:44→20:09)
[2020-11-29 06:52] LABS: BASOPHILS % (AUTO) 0 % (0-10); EOSINOPHILS % (AUTO) 1 % (0-10); HEMATOCRIT 30 % (35-52); HEMOGLOBIN 9.6 g/dL (11.5-16.0); LYMPHOCYTES # (AUTO) 1.2 10^3/uL (1.0-4.0); LYMPHOCYTES % (AUTO) 21 % (12-44); MEAN CORPUSCULAR HEMOGLOBIN 30 pg (25-34); MEAN CORPUSCULAR HGB CONC 32 g/dL (32-36); MEAN CORPUSCULAR VOLUME 93 fL (80-99); MEAN PLATELET VOLUME 11.2 fL (9.0-12.2); MONOCYTES # (AUTO) 0.4 10^3/uL (0.0-1.0); MONOCYTES % (AUTO) 7 % (0-12); NEUTROPHILS # (AUTO) 4.2 10^3/uL (1.8-7.8); NEUTROPHILS % (AUTO) 71 % (42-75); PLATELET COUNT 128 10^3/uL (130-400); WHITE BLOOD COUNT 5.9 10^3/uL (4.3-11.0)
[2020-11-29 07:02] LABS: ALBUMIN 2.1 GM/DL (3.2-4.5); CHLORIDE 105 MMOL/L (98-107); POTASSIUM 3.9 MMOL/L (3.6-5.0); SODIUM 138 MMOL/L (135-145)
[2020-11-29 07:03] LABS: CALCIUM 7.9 MG/DL (8.5-10.1)
[2020-11-29 07:04] LABS: GLUCOSE 109 MG/DL (70-105)
[2020-11-29 07:05] LABS: TOTAL PROTEIN 5.1 GM/DL (6.4-8.2)
[2020-11-29 07:06] LABS: BILIRUBIN,TOTAL 0.5 MG/DL (0.1-1.0); CARBON DIOXIDE 25 MMOL/L (21-32)
[2020-11-29 07:08] LABS: ALKALINE PHOSPHATASE 212 U/L (40-136); CREATININE SERUM 0.71 MG/DL (0.60-1.30); GFR ESTIMATED > 60
[2020-11-29 07:09] LABS: BUN/CREATININE RATIO 28
[2020-11-29 07:11] LABS: ALANINE AMINOTRANSFERASE 18 U/L (0-55)
[2020-11-29] MEDS: RT-ALBUTEROL/IPRATROPIUM 3 ML (DUONEB) VIAL INH SCH ×3 (07:58→19:04)
[2020-11-29] MEDS: PATIENT MAY USE OWN MED,SINGLE MED INH SCH (08:00)
[2020-11-29] MEDS: meTOproloL SUCCINATE 50 MG (TOPROL XL) TAB PO SCH (08:01)
[2020-11-29] MEDS: PANTOPRAZOLE 40 MG (PROTONIX) VIAL IV SCH ×2 (08:01→20:09)
[2020-11-29] MEDS: METOCLOPRAMIDE INJ 10 MG/2 ML (REGLAN) IVP SCH ×2 (08:01→20:10)
[2020-11-29] MEDS: NICOTINE 14 MG (NICODERM) PATCH TD SCH (08:02)
[2020-11-29] MEDS: amLODIPine 10 MG (NORVASC) TAB PO SCH (08:02)
[2020-11-29] MEDS: NICOTINE PATCH REMOVAL TP SCH (08:02)
[2020-11-29] MEDS: lisINopril 20 MG (PRINIVIL) TABLET PO SCH (08:02)
--- NOTE | 2020-11-29 09:59 | Physical Therapy Daily Note ---
PT Daily Note-Current Subjective Patient agrees to PT. Mental Status Patient Orientation: Person, Time Attachments: Colostomy/Ileostomy, Oxygen, Lam Catheter wound vac abdomen Transfers SCALE: Activities may be completed with or without assistive devices. 4-Rhsuydhcpl-ahuoruq completes the activity by him/herself with no assistance from a helper. 5-Set-up or Clean-up Assistance-helper sets up or cleans up; patient completes activity. [place] assists only prior to or following the activity. 4-Supervision or Touching Assistance-helper provides verbal cues and/or touching/steadying and/or contact guard assistance as patient completes activity. Assistance may be provided throughout the activity or intermittently. 3-Partial/Moderate Assistance-helper does LESS THAN HALF the effort. [place] lifts, holds or supports trunk or limbs, but provides less than half the effort. 2-Substantial/Maximal Assistance-helper does MORE THAN HALF the effort. [place] lifts or holds trunk or limbs and provides more than half the effort. 3-Aouoeswvr-jezdhv does ALL the effort. Patient does none of the effort to complete the activity. Or, the assistance of 2 or more helpers is required for the patient to complete the activity. If activity was not attempted, code reason: 7-Patient Refused. 9-Not Applicable-not attempted and the patient did not perform the activity before the current illness, exacerbation or injury. 10-Not Attempted due to Environmental Limitations-(lack of equipment, weather restraints, etc.). 88-Not Attempted due to Medical Conditions or Safety Concerns. Roll Left & Right (QC): 1 (x 2) Sit to Lying (QC): 2 Lying to Sitting/Side of Bed(Q: 2 Sit to Stand (QC): 88 Chair/Smg-ti-Lyimm Xfer(QC): 88 Exercises Supine Ex: Ankle pumps, Quad Set, Heel Slides Supine Reps: 12 (AAROM) Seated Therapy Exercises: Ankle pumps, Long arc quads, Hip flexion Seated Reps: 12 Assessment Patient ceased treatment due to fatigue. Patient sat EOB x 5 min. PT to increase activity as tolerated by patient. PT Short Term Goals Short Term Goals Time Frame: Dec 07, 2020 Roll Left & Right: 3 Sit to lyin Lying to sitting on side of be: 3 Sit to stand: 3 Chair/fps-tz-euixb transfer: 3 PT Motorcycle Mechanic Goals Senior Living Goals PT Senior Living Goals Time Frame: Dec 04, 2020 Roll Left & Right (QC): 4 Sit to Lying (QC): 3 Lying-Sitting on Side/Bed(QC): 3 Sit to Stand (QC): 3 Chair/Rjc-ss-Ygmrz Xfer(QC): 3 PT Plan Treatment/Plan Treatment Plan: Continue Plan of Care Treatment Plan: Bed Mobility, Education, Functional Activity [place], Functional Strength, Gait, Safety, Therapeutic Exercise, Transfers Treatment Duration: Dec 04, 2020 Frequency: 6 times per week Estimated Hrs Per Day: .25 hour per day Time/GCodes Time In: 925 Time Out: 936 Total Billed Treatment Time: 11 Total Billed Treatment 1 visit EX 11 min ROBERT SCHWAB PT Nov 29, 2020 09:59
--- NOTE | 2020-11-29 10:02 | Occupational Ther Daily Note ---
OT Current Status-Daily Note Subjective Pt alert, lying in bed. Pt agrees to therapy. No c/o pain at this time. Pt states that she is feeling better today. Mental Status/Objective Patient Orientation: Person, Place, Time, Situation Attachments: Colostomy/Ileostomy (2), Drains (wound vac), Lam Catheter, IV, Oxygen ADL-Treatment Therapy Code Descriptions/Definitions Functional [place] Measure: 0=Not Assessed/NA 4=Minimal Assistance 1=Total Assistance 5=Supervision or Setup 2=Maximal Assistance 6=Modified [place] 3=Moderate Assistance 7=Complete IndependenceSCALE: Activities may be completed with or without assistive devices. 4-Beilxiagbn-algcqec completes the activity by him/herself with no assistance from a helper. 5-Set-up or Clean-up Assistance-helper sets up or cleans up; patient completes activity. [place] assists only prior to or following the activity. 4-Supervision or Touching Assistance-helper provides verbal cues and/or touching/steadying and/or contact guard assistance as patient completes activity. Assistance may be provided throughout the activity or intermittently. 3-Partial/Moderate Assistance-helper does LESS THAN HALF the effort. [place] lifts, holds or supports trunk or limbs, but provides less than half the effort. 2-Substantial/Maximal Assistance-helper does MORE THAN HALF the effort. [place] lifts or holds trunk or limbs and provides more than half the effort. 0-Dtkesrkdc-gtaiyw does ALL the effort. Patient does none of the effort to complete the activity. Or, the assistance of 2 or more helpers is required for the patient to complete the activity. If activity was not attempted, code reason: 7-Patient Refused. 9-Not Applicable-not attempted and the patient did not perform the activity before the current illness, exacerbation or injury. 10-Not Attempted due to Environmental Limitations-(lack of equipment, weather restraints, etc.). 88-Not Attempted due to Medical Conditions or Safety Concerns. Other Treatment Pt declined any ADLs. Pt wanted to roll toward L side. B UE WNL and fair strength. Pt reaching with R hand to left bed rail, bent R knee to assist with turning to L side. Pt able to hold position on side while pillows placed by LOGAN. Pt then requested drink and another cup of ice. Pt able to scoop ice and grasp/drink from cup. After therapy, pt lying on L side with call light/phone in reach. All needs met in room. OT Short Term Goals Short Term Goals Time Frame: Dec 03, 2020 Eatin Oral hygiene: 3 Toileting hygiene: 3 Shower/bathe self: 3 Upper body dressin Lower body dressin Putting on/taking off footwear: 3 OT Content Development Specialist Goals Nursing Home Goals Time Frame: Dec 17, 2020 Eating (QC): 6 Oral Hygiene (QC): 6 Toileting Hygiene (QC): 6 Shower/Bathe Self (QC): 4 Upper Body Dressing (QC): 5 Lower Body Dressing (QC): 4 On/Off Footwear (QC): 4 Additional Goals: 1-Demonstrate ADL Tasks, 2-Verbalize Understanding, 3-ImproveStrength/[place] 1=Demonstrate adherence to instructed precautions during ADL tasks. 2=Patient will verbalize/demonstrate understanding of assistive devices/modifications for ADL. 3=Patient will improve strength/tolerance for activity to enable patient to perform ADL's. OT Education/Plan Problem List/Assessment Assessment: Decreased Activ Tolerance, Impaired Bed Mobility, Impaired Self- Care Skills Discharge Recommendations Plan/Recommendations: Continue POC Treatment Plan/Plan of Care Patient would benefit from OT for education, treatment and training to promote independence in ADL's, mobility, safety and/or upper extremity function for ADL's. Plan of Care: ADL Retraining, Functional Mobility, UE Funct Exercise/Act Treatment Duration: Dec 17, 2020 Frequency: 5 times per week Estimated Hrs Per Day: .25 hour per day Agreement: Yes Rehab Potential: Fair Time/GCodes Start Time: 09:36 Stop Time: 09:50 Total Time Billed (hr/min): 14 Billed Treatment Time 1 visit-FA 1 (14 min) RAIZA BROWNING Nov 29, 2020 10:02
--- NOTE | 2020-11-29 10:22 | Progress Note ---
Subjective Date Seen by a Provider: Nov 29, 2020 Time Seen by a Provider: 10:00 Subjective/Events-last exam Patient doing well Off Vapotherm on 5L/min Sister at bedside No pain reported Abx maintained Review of Systems General: Fatigue, Malaise Pulmonary: Dyspnea Neurological: Weakness Focused Exam Lactate Level 11/29/20 06:40: Lactic Acid Level 0.72 Lactic Acid Level Laboratory Tests Test 11/29/20 06:40 Lactic Acid Level 0.72 MMOL/L (0.50-2.00) Objective Exam Last Set of Vital Signs Vital Signs Date Time Temp Pulse Resp B/P (MAP) Pulse Ox O2 Delivery O2 Flow Rate FiO2 11/29/20 08:00 96 Nasal Cannula 5.00 11/29/20 04:00 36.2 72 20 134/62 (86) 11/28/20 21:48 40 Capillary Refill : Less Than 3 Seconds I&O Intake and Output 11/29/20 00:00 Intake Total 650 ml Output Total 1290 ml Balance -640 ml Intake Oral 220 ml IV Total 430 ml Output Urine Total 950 ml Stool Total 260 ml Drainage Total 80 ml General: Alert, Oriented X3, Cooperative, No Acute Distress Lungs: Clear to Auscultation, Normal Air Movement Heart: Regular Rate, Normal S1, Normal S2, No Murmurs Psych/Mental Status: Mental Status NL, Mood NL Results Lab Laboratory Tests 11/29/20 06:40: White Blood Count 5.9, Red Blood Count 3.25L, Hemoglobin 9.6L, Hematocrit 30L, Mean Corpuscular Volume 93, Mean Corpuscular Hemoglobin 30, Mean Corpuscular Hemoglobin Concent 32, Red Cell Distribution Width 16.2H, Platelet Count 128L, Mean Platelet Volume 11.2, Immature Granulocyte % (Auto) 1, Neutrophils (%) (Auto) 71, Lymphocytes (%) (Auto) 21, Monocytes (%) (Auto) 7, Eosinophils (%) (Auto) 1, Basophils (%) (Auto) 0, Neutrophils # (Auto) 4.2, Lymphocytes # (Auto) 1.2, Monocytes # (Auto) 0.4, Eosinophils # (Auto) 0.0, Basophils # (Auto) 0.0, Immature Granulocyte # (Auto) 0.0, Sodium Level 138, Potassium Level 3.9, Chloride Level 105, Carbon Dioxide Level 25, Anion Gap 8, Blood Urea Nitrogen 20H, Creatinine 0.71, Estimat Glomerular Filtration Rate > 60, BUN/Creatinine Ratio 28, Glucose Level 109H, Lactic Acid Level 0.72, Calcium Level 7.9L, Corrected Calcium 9.4, Total Bilirubin 0.5, Aspartate Amino Transf (AST/SGOT) 26, Alanine Aminotransferase (ALT/SGPT) 18, Alkaline Phosphatase 212H, Total Protein 5.1L, Albumin 2.1L, Procalcitonin 0.23H Microbiology 11/16/20 MRSA Screen - Final, Complete MRSA not isolated 11/15/20 Gram Stain - Final, Resulted 11/15/20 Anaerobic Culture - Final, Resulted No anaerobes isolated 11/15/20 Surgical Culture - Final, Resulted Bobbi glabrata Bobbi species 11/15/20 Fungal Culture 1 - Preliminary, Resulted Bobbi glabrata Bobbi species Assessment/Plan Assessment/Plan Assess & Plan/Chief Complaint Assessment: Acute respiratory insufficiency requiring ICU transfer 11/25/20 Colon cancer Bowel resection with diverting ileostomy Psychosis Anemia requiring transfusion Severe [place] Abdominal pain Hyponatremia Plan: 4th floor move Monitor closely 11/23/20: TPN Replace CL Monitor closely 11/24/20: Monitor closely TPN 11/25/20: Move to ICU [place] closely Appreciate Dr Moreno 11/26/20: ICI Vapotherm Monitor closely 11/27/20: Move to 4th Wean O2 Monitor labs 11/28/20: PT OT Wound vac change Vapotherm wean 11/29/20: Weaned Vapotherm Monitor BP Diagnosis/Problems Diagnosis/Problems (1) Ileus following gastrointestinal surgery (2) Presbycusis of both ears (3) Ileostomy in place (4) Anemia due to acute blood loss (5) Colon cancer (6) Myopathy (7) Hyponatremia (8) COPD (chronic obstructive pulmonary disease) (9) S/P right hemicolectomy Clinical Quality Measures DVT/VTE Risk/Contraindication: Risk Factor Score Per Nursin WILFREDO MARTÍNEZ DO Nov 29, 2020 10:21
--- NOTE | 2020-11-29 10:47 | Progress Note ---
Subjective Date Seen by a Provider: Nov 29, 2020 Time Seen by a Provider: 10:30 Subjective/Events-last exam doing well. tolerating diet. no fever/chills. likely plan on definitive abd fascial closure with biologic mesh next week. Focused Exam Lactate Level 11/29/20 06:40: Lactic Acid Level 0.72 Objective Exam Vital Signs Date Time Temp Pulse Resp B/P (MAP) Pulse Ox O2 Delivery O2 Flow Rate FiO2 11/29/20 09:00 Nasal Cannula 5.00 11/29/20 08:00 96 Nasal Cannula 5.00 11/29/20 08:00 35.7 92 20 156/91 (112) 95 Nasal Cannula 5.00 11/29/20 04:00 36.2 72 20 134/62 (86) 97 Vapotherm 11/29/20 00:00 36.3 74 20 138/65 (89) 96 Vapotherm 11/28/20 21:48 Vapotherm 35.00 40 11/28/20 19:28 98 Vapotherm 40.00 45 11/28/20 19:00 36.0 72 11 142/73 (96) 97 11/28/20 17:50 35.5 66 16 147/68 (94) 95 11/28/20 17:30 OxyMask 4 11/28/20 17:20 36.1 14 160/81 (107) 97 OxyMask 4 11/28/20 17:15 OxyMask 4 11/28/20 17:10 14 153/77 (102) 96 OxyMask 4 11/28/20 17:00 36 16 142/78 (99) 95 OxyMask 6 11/28/20 17:00 OxyMask 6 11/28/20 12:00 36.2 73 18 161/70 (100) 97 Vapotherm 40.00 45.00 I & O 11/29/20 07:00 Intake Total 1050 ml Output Total 1510 ml Balance -460 ml Capillary Refill : Less Than 3 Seconds General Appearance: No Apparent Distress HEENT: PERRL/EOMI Neck: Full Range of Motion Respiratory: Decreased Breath Sounds, Wheezing Cardiovascular: Regular Rate, Rhythm Gastrointestinal: normal bowel sounds, soft Extremity: Normal Capillary Refill Neurologic/Psychiatric: Alert, Oriented x3 Skin: Normal Color Lymphatic: No Adenopathy Results Lab Laboratory Tests 11/29/20 06:40: White Blood Count 5.9, Red Blood Count 3.25L, Hemoglobin 9.6L, Hematocrit 30L, Mean Corpuscular Volume 93, Mean Corpuscular Hemoglobin 30, Mean Corpuscular Hemoglobin Concent 32, Red Cell Distribution Width 16.2H, Platelet Count 128L, Mean Platelet Volume 11.2, Immature Granulocyte % (Auto) 1, Neutrophils (%) (Auto) 71, Lymphocytes (%) (Auto) 21, Monocytes (%) (Auto) 7, Eosinophils (%) (Auto) 1, Basophils (%) (Auto) 0, Neutrophils # (Auto) 4.2, Lymphocytes # (Auto) 1.2, Monocytes # (Auto) 0.4, Eosinophils # (Auto) 0.0, Basophils # (Auto) 0.0, Immature Granulocyte # (Auto) 0.0, Sodium Level 138, Potassium Level 3.9, Chloride Level 105, Carbon Dioxide Level 25, Anion Gap 8, Blood Urea Nitrogen 20H, Creatinine 0.71, Estimat Glomerular Filtration Rate > 60, BUN/Creatinine Ratio 28, Glucose Level 109H, Lactic Acid Level 0.72, Calcium Level 7.9L, Corrected Calcium 9.4, Total Bilirubin 0.5, Aspartate Amino Transf (AST/SGOT) 26, Alanine Aminotransferase (ALT/SGPT) 18, Alkaline Phosphatase 212H, Total Protein 5.1L, Albumin 2.1L, Procalcitonin 0.23H Microbiology 11/16/20 MRSA Screen - Final, Complete MRSA not isolated 11/15/20 Gram Stain - Final, Resulted 11/15/20 Anaerobic Culture - Final, Resulted No anaerobes isolated 11/15/20 Surgical Culture - Final, Resulted Bobbi glabrata Bobbi species 11/15/20 Fungal Culture 1 - Preliminary, Resulted Bobbi glabrata Bobbi species Assessment/Plan Assessment/Plan Assess & Plan/Chief Complaint s/p extended right hemicolectomy, end ileostomy, mucous fistula, revision ileostomy, drainage intraabd abscess and VAC placement. will change vac about every 5 days. start a carbapenem. cont TPN cont respiratory support and diuresis. advance to reg diet. likely definitive abd closure with biologic mesh next week. Clinical Quality Measures DVT/VTE Risk/Contraindication: Risk Factor Score Per Nursin MICHAEL XIONG MD Nov 29, 2020 10:46
[2020-11-29] MEDS: FENTANYL PATCH REMOVAL TP SCH (11:16)
[2020-11-29] MEDS: fentaNYL PATCH 25 MCG (DURAGESIC) TD SCH (11:26)
[2020-11-29] MEDS: ENOXAPARIN 40 MG/0.4 ML (LOVENOX) SYR SC SCH (20:09)
[2020-11-29] MEDS: diphenhydrAMINE 25 MG TAB (BENADRYL) PO PRN (20:09)
[2020-11-30] MEDS: diphenhydrAMINE 25 MG TAB (BENADRYL) PO PRN (02:02)
[2020-11-30] MEDS: ACETAMINOPHEN 325 MG TABLET PO PRN (02:02)
[2020-11-30] MEDS: HYDROmorphone 2 MG/ML VIAL (DILAUDID) IV PRN ×2 (02:45→17:20)
[2020-11-30 04:39] VITALS: BP 134/67
[2020-11-30 05:26] LABS: BASOPHILS % (AUTO) 0 % (0-10); EOSINOPHILS # (AUTO) 0.1 10^3/uL (0.0-0.3); EOSINOPHILS % (AUTO) 2 % (0-10); HEMATOCRIT 31 % (35-52); HEMOGLOBIN 9.7 g/dL (11.5-16.0); LYMPHOCYTES # (AUTO) 1.5 10^3/uL (1.0-4.0); LYMPHOCYTES % (AUTO) 20 % (12-44); MEAN CORPUSCULAR HEMOGLOBIN 29 pg (25-34); MEAN CORPUSCULAR HGB CONC 32 g/dL (32-36); MEAN CORPUSCULAR VOLUME 92 fL (80-99); MEAN PLATELET VOLUME 11.1 fL (9.0-12.2); MONOCYTES # (AUTO) 0.5 10^3/uL (0.0-1.0); MONOCYTES % (AUTO) 6 % (0-12); NEUTROPHILS # (AUTO) 5.4 10^3/uL (1.8-7.8); NEUTROPHILS % (AUTO) 72 % (42-75); PLATELET COUNT 167 10^3/uL (130-400); WHITE BLOOD COUNT 7.5 10^3/uL (4.3-11.0)
[2020-11-30 05:34] LABS: ALBUMIN 2.1 GM/DL (3.2-4.5); CHLORIDE 103 MMOL/L (98-107); POTASSIUM 3.7 MMOL/L (3.6-5.0); SODIUM 135 MMOL/L (135-145)
[2020-11-30 05:36] LABS: CALCIUM 7.9 MG/DL (8.5-10.1)
[2020-11-30 05:37] LABS: GLUCOSE 130 MG/DL (70-105); TOTAL PROTEIN 5.1 GM/DL (6.4-8.2)
[2020-11-30 05:38] LABS: BILIRUBIN,TOTAL 0.5 MG/DL (0.1-1.0); CARBON DIOXIDE 24 MMOL/L (21-32)
--- NOTE | 2020-11-30 05:38 | Progress Note ---
Subjective Date Seen by a Provider: Nov 30, 2020 Time Seen by a Provider: 12:30 Subjective/Events-last exam Patient doing well Eating better No pain reported Checked meds and labs Prealbumin 10.8 Edema noted Air mattress maintained Decubitus ulcer formation considering in hospital for 4.5 weeks Review of Systems General: Fatigue Pulmonary: Dyspnea Neurological: Weakness, Incoordination Focused Exam Lactate Level 11/29/20 06:40: Lactic Acid Level 0.72 Objective Exam Last Set of Vital Signs Vital Signs Date Time Temp Pulse Resp B/P (MAP) Pulse Ox O2 Delivery O2 Flow Rate FiO2 11/30/20 04:39 36.6 91 20 134/67 (89) 95 Nasal Cannula 3.00 11/28/20 21:48 40 Capillary Refill : Less Than 3 Seconds I&O Intake and Output 11/30/20 00:00 Intake Total 2830 ml Output Total 3645 ml Balance -815 ml Intake Oral 2560 ml Other 270 ml Output Urine Total 1320 ml Stool Total 2100 ml Gastric Drainage Total 225 ml General: Alert, Oriented X3, Cooperative, No Acute Distress Lungs: Clear to Auscultation, Normal Air Movement Heart: Regular Rate, Normal S1, Normal S2, No Murmurs Psych/Mental Status: Mental Status NL, Mood NL Results Lab Laboratory Tests 11/29/20 06:40: White Blood Count 5.9, Red Blood Count 3.25L, Hemoglobin 9.6L, Hematocrit 30L, Mean Corpuscular Volume 93, Mean Corpuscular Hemoglobin 30, Mean Corpuscular Hemoglobin Concent 32, Red Cell Distribution Width 16.2H, Platelet Count 128L, Mean Platelet Volume 11.2, Immature Granulocyte % (Auto) 1, Neutrophils (%) (Auto) 71, Lymphocytes (%) (Auto) 21, Monocytes (%) (Auto) 7, Eosinophils (%) (Auto) 1, Basophils (%) (Auto) 0, Neutrophils # (Auto) 4.2, Lymphocytes # (Auto) 1.2, Monocytes # (Auto) 0.4, Eosinophils # (Auto) 0.0, Basophils # (Auto) 0.0, Immature Granulocyte # (Auto) 0.0, Sodium Level 138, Potassium Level 3.9, Chloride Level 105, Carbon Dioxide Level 25, Anion Gap 8, Blood Urea Nitrogen 20H, Creatinine 0.71, Estimat Glomerular Filtration Rate > 60, BUN/Creatinine Ratio 28, Glucose Level 109H, Lactic Acid Level 0.72, Calcium Level 7.9L, Corrected Calcium 9.4, Total Bilirubin 0.5, Aspartate Amino Transf (AST/SGOT) 26, Alanine Aminotransferase (ALT/SGPT) 18, Alkaline Phosphatase 212H, Total Protein 5.1L, Albumin 2.1L, Procalcitonin 0.23H 11/30/20 05:15: White Blood Count 7.5, Red Blood Count 3.31L, Hemoglobin 9.7L, Hematocrit 31L, Mean Corpuscular Volume 92, Mean Corpuscular Hemoglobin 29, Mean Corpuscular Hemoglobin Concent 32, Red Cell Distribution Width 15.7H, Platelet Count 167, Mean Platelet Volume 11.1, Immature Granulocyte % (Auto) 0, Neutrophils (%) (Auto) 72, Lymphocytes (%) (Auto) 20, Monocytes (%) (Auto) 6, Eosinophils (%) (Auto) 2, Basophils (%) (Auto) 0, Neutrophils # (Auto) 5.4, Lymphocytes # (Auto) 1.5, Monocytes # (Auto) 0.5, Eosinophils # (Auto) 0.1, Basophils # (Auto) 0.0, Immature Granulocyte # (Auto) 0.0, Sodium Level 135, Potassium Level 3.7, Chloride Level 103, Carbon Dioxide Level 24, Anion Gap 8, Glucose Level 130H, Calcium Level 7.9L, Corrected Calcium 9.4, Total Protein 5.1L, Albumin 2.1L Microbiology 11/16/20 MRSA Screen - Final, Complete MRSA not isolated 11/15/20 Gram Stain - Final, Resulted 11/15/20 Anaerobic Culture - Final, Resulted No anaerobes isolated 11/15/20 Surgical Culture - Final, Resulted Bobbi glabrata Bobbi species 11/15/20 Fungal Culture 1 - Preliminary, Resulted Bobbi glabrata Bobbi species Assessment/Plan Assessment/Plan Assess & Plan/Chief Complaint Assessment: Acute respiratory insufficiency requiring ICU transfer 11/25/20 Colon cancer Bowel resection with diverting ileostomy Psychosis Anemia requiring transfusion Severe [place] Abdominal pain Hyponatremia Plan: 4th floor move Monitor closely 11/23/20: TPN Replace CL Monitor closely 11/24/20: Monitor closely TPN 11/25/20: Move to ICU [place] closely Appreciate Dr Moreno 11/26/20: ICI Vapotherm Monitor closely 11/27/20: Move to 4th Wean O2 Monitor labs 11/28/20: PT OT Wound vac change Vapotherm wean 11/29/20: Weaned Vapotherm Monitor BP 11/30/20: Work on nutrition Monitor BP Diagnosis/Problems Diagnosis/Problems (1) Ileus following gastrointestinal surgery (2) Presbycusis of both ears (3) Ileostomy in place (4) Anemia due to acute blood loss (5) Colon cancer (6) Myopathy (7) Hyponatremia (8) COPD (chronic obstructive pulmonary disease) (9) S/P right hemicolectomy Clinical Quality Measures DVT/VTE Risk/Contraindication: Risk Factor Score Per Nursin WILFREDO MARTÍNEZ DO Nov 30, 2020 05:38
[2020-11-30 05:40] LABS: ALKALINE PHOSPHATASE 200 U/L (40-136); CREATININE SERUM 0.75 MG/DL (0.60-1.30); GFR ESTIMATED > 60
[2020-11-30 05:41] LABS: BUN/CREATININE RATIO 31
[2020-11-30 05:43] LABS: ALANINE AMINOTRANSFERASE 17 U/L (0-55)
[2020-11-30] MEDS: fentaNYL INJECTION 100 MCG/2 ML AMP IVP PRN (05:54)
[2020-11-30] MEDS: SUCRALFATE 1 GM (CARAFATE) TAB PO SCH ×4 (05:55→20:28)
[2020-11-30] MEDS: RT-ALBUTEROL/IPRATROPIUM 3 ML (DUONEB) VIAL INH SCH ×3 (07:13→19:03)
[2020-11-30] MEDS: PATIENT MAY USE OWN MED,SINGLE MED INH SCH (07:14)
[2020-11-30 08:00] VITALS: BP 146/76
--- NOTE | 2020-11-30 08:48 | Physical Therapy Daily Note ---
PT Daily Note-Current Subjective Pt is in bed on arrival and agreeable to therapy. Mental Status Patient Orientation: Person, Place, Time, Situation Attachments: Oxygen Transfers SCALE: Activities may be completed with or without assistive devices. 1-Daimdvfczg-dlblofu completes the activity by him/herself with no assistance from a helper. 5-Set-up or Clean-up Assistance-helper sets up or cleans up; patient completes activity. [place] assists only prior to or following the activity. 4-Supervision or Touching Assistance-helper provides verbal cues and/or touching/steadying and/or contact guard assistance as patient completes activity . Assistance may be provided throughout the activity or intermittently. 3-Partial/Moderate Assistance-helper does LESS THAN HALF the effort. [place] lifts, holds or supports trunk or limbs, but provides less than half the effort. 2-Substantial/Maximal Assistance-helper does MORE THAN HALF the effort. [place] lifts or holds trunk or limbs and provides more than half the effort. 9-Nipgpsxou-cnqjgh does ALL the effort. Patient does none of the effort to complete the activity. Or, the assistance of 2 or more helpers is required for the patient to complete the activity. If activity was not attempted, code reason: 7-Patient Refused. 9-Not Applicable-not attempted and the patient did not perform the activity before the current illness, exacerbation or injury. 10-Not Attempted due to Environmental Limitations-(lack of equipment, weather restraints, etc.). 88-Not Attempted due to Medical Conditions or Safety Concerns. Exercises Supine Ex: LE Protocol, Glut sets Supine Reps: 16 Pt able to perform 50% of the exercises (I) and the remaining with assistance. Assessment Current Status: Fair Progress Pt was able to perform the supine exercises for 50% of the reps, but began to fatigue and requested assistance. PT Short Term Goals Short Term Goals Time Frame: Dec 07, 2020 Roll Left & Right: 3 Sit to lyin Lying to sitting on side of be: 3 Sit to stand: 3 Chair/sta-pq-cplzo transfer: 3 PT Take Down Inspector Goals Take Down Inspector Goals PT Take Down Inspector Goals Time Frame: Dec 04, 2020 Roll Left & Right (QC): 4 Sit to Lying (QC): 3 Lying-Sitting on Side/Bed(QC): 3 Sit to Stand (QC): 3 Chair/Dau-ds-Mqazu Xfer(QC): 3 PT Plan Treatment/Plan Treatment Plan: Continue Plan of Care Treatment Plan: Bed Mobility, Education, Functional Activity [place], Functional Strength, Gait, Safety, Therapeutic Exercise, Transfers Treatment Duration: Dec 04, 2020 Frequency: 6 times per week Estimated Hrs Per Day: .25 hour per day Time/GCodes Time In: 08 Time Out: 08 Total Billed Treatment Time: 15 Total Billed Treatment 1, ex 15 DORA BRAGG PT Nov 30, 2020 08:48
[2020-11-30] MEDS: NICOTINE PATCH REMOVAL TP SCH (09:00)
[2020-11-30] MEDS: PANTOPRAZOLE 40 MG (PROTONIX) VIAL IV SCH ×2 (10:16→20:28)
[2020-11-30] MEDS: lisINopril 20 MG (PRINIVIL) TABLET PO SCH (10:16)
[2020-11-30] MEDS: amLODIPine 10 MG (NORVASC) TAB PO SCH (10:16)
[2020-11-30] MEDS: meTOproloL SUCCINATE 50 MG (TOPROL XL) TAB PO SCH (10:16)
[2020-11-30] MEDS: METOCLOPRAMIDE INJ 10 MG/2 ML (REGLAN) IVP SCH ×2 (10:17→20:28)
[2020-11-30] MEDS: NICOTINE 14 MG (NICODERM) PATCH TD SCH (10:17)
[2020-11-30 12:00] VITALS: BP 171/75
[2020-11-30] MEDS: HYDROcodone/APAP 7.5MG-325 MG/15 ML (LORTAB) UDC PO PRN ×3 (14:55→22:07)
[2020-11-30 15:25] VITALS: BP 168/72
--- NOTE | 2020-11-30 16:14 | Cardiology Progress Note ---
Cardiology SOAP Progress Note Subjective: no cardiac complaints. The patient complains of back pain. Objective: I&O/Vital Signs 11/30/20 11/30/20 11/30/20 11/30/20 04:39 07:14 08:00 12:00 Temp 36.6 35.8 35.6 Pulse 91 89 93 Resp 20 18 20 B/P (MAP) 134/67 (89) 146/76 (99) 171/75 (107) Pulse Ox 95 95 96 95 O2 Delivery Nasal Cannula Nasal Cannula Nasal Cannula Nasal Cannula O2 Flow Rate 3.00 3.00 3.00 3.00 11/30/20 11/30/20 15:14 15:25 Temp 37.0 Pulse 98 Resp 20 B/P (MAP) 168/72 (104) Pulse Ox 93 94 O2 Delivery Nasal Cannula Nasal Cannula O2 Flow Rate 3.00 3.00 11/30/20 00:00 Intake Total 2430 ml Output Total 3070 ml Balance -640 ml Constitutional: other (on mech vent, unresponsive) Respiratory: No accessory muscle use; other (good, bilateral air entry, diminished at the bases) Cardiovascular: regular rate-rhythm, S1 and S2, systolic murmur (soft JOSIE at card base) Gastrointestional: other (recently post-op, we did not attempt palpation) Extremities: No clubbing, No cyanosis, No significant edema Neurologic/Psychiatric: other (unresponsive, on mech vent) Skin: No rash on exposed areas, No ulcerations on exposed areas Results/Procedures: Labs Laboratory Tests 11/30/20 05:15: White Blood Count 7.5, Red Blood Count 3.31L, Hemoglobin 9.7L, Hematocrit 31L, Mean Corpuscular Volume 92, Mean Corpuscular Hemoglobin 29, Mean Corpuscular Hemoglobin Concent 32, Red Cell Distribution Width 15.7H, Platelet Count 167, Mean Platelet Volume 11.1, Immature Granulocyte % (Auto) 0, Neutrophils (%) (Auto) 72, Lymphocytes (%) (Auto) 20, Monocytes (%) (Auto) 6, Eosinophils (%) (Auto) 2, Basophils (%) (Auto) 0, Neutrophils # (Auto) 5.4, Lymphocytes # (Auto) 1.5, Monocytes # (Auto) 0.5, Eosinophils # (Auto) 0.1, Basophils # (Auto) 0.0, Immature Granulocyte # (Auto) 0.0, Sodium Level 135, Potassium Level 3.7, Chloride Level 103, Carbon Dioxide Level 24, Anion Gap 8, Blood Urea Nitrogen 23H, Creatinine 0.75, Estimat Glomerular Filtration Rate > 60, BUN/Creatinine Ratio 31, Glucose Level 130H, Calcium Level 7.9L, Corrected Calcium 9.4, Total Bilirubin 0.5, Aspartate Amino Transf (AST/SGOT) 23, Alanine Aminotransferase (ALT/SGPT) 17, Alkaline Phosphatase 200H, Total Protein 5.1L, Albumin 2.1L Microbiology 11/16/20 MRSA Screen - Final, Complete MRSA not isolated 11/15/20 Gram Stain - Final, Resulted 11/15/20 Anaerobic Culture - Final, Resulted No anaerobes isolated 11/15/20 Surgical Culture - Final, Resulted Bobbi glabrata Bobbi species 11/15/20 Fungal Culture 1 - Preliminary, Resulted Bobbi glabrata Bobbi species A/P: Assessment/Dx: Acute respiratory failure Sinus tachycardia Hypertension Hyperlipidemia Plan: Status post acute respiratory failure, extubated on November 18, 2020, improved initially, was transferred back to ICU on November 25, 2020 for acute respiratory failure again, feeling better at this time, still having some shortness of breath. Continue to monitor Confusion, delirium, waxing and waning, better today. Continue to monitor Anemia, significant drop in H&H, see blood transfusion, better at this time, continue to monitor H&H Status post extended right hemicolectomy and ileostomy revision for ileostomy, had her wound VAC replaced, appeared to be feeling better today. Managed by primary care team COPD, followed and managed by primary care physician Sinus tachycardia, secondary to hypoxia, and anemia, started on low-dose beta blockers. Continue to monitor Hypertension, poor control, currently on multiple blood pressure medication, continue to monitor blood pressure Hyperlipidemia monitor lipids Thank you for your consultation. Please call me if you have any questions. Boom Morgan MD, FACP, FACC, FSCAI, FHRS, CCDS Interventional Cardiology Cardiac Electrophysiology Vascular Medicine and Endovascular Interventions Focused Exam Lactate Level 11/29/20 06:40: Lactic Acid Level 0.72 Lisandro MORGAN MD Nov 30, 2020 16:14
[2020-11-30 19:55] VITALS: BP 139/63
[2020-11-30] MEDS: meTOprolol TARTRATE 25 MG (LOPRESSOR) TABLET PO SCH (20:28)
[2020-11-30] MEDS: MELATONIN 3 MG TABLET PO PRN (20:28)
[2020-11-30] MEDS: ENOXAPARIN 40 MG/0.4 ML (LOVENOX) SYR SC SCH (20:28)
[2020-12-01] VITALS: BP 126/58
[2020-12-01] MEDS: ACETAMINOPHEN 325 MG TABLET PO PRN (01:21)
[2020-12-01] MEDS: diphenhydrAMINE 25 MG TAB (BENADRYL) PO PRN (01:21)
[2020-12-01] MEDS: HYDROmorphone 2 MG/ML VIAL (DILAUDID) IV PRN ×4 (01:48→22:45)
[2020-12-01 03:58] VITALS: BP 120/56
[2020-12-01] MEDS: HYDROcodone/APAP 7.5MG-325 MG/15 ML (LORTAB) UDC PO PRN ×2 (04:58→21:45)
--- NOTE | 2020-12-01 06:37 | Progress Note ---
Subjective Date Seen by a Provider: Dec 01, 2020 Time Seen by a Provider: 13:00 Subjective/Events-last exam Patient doing well today Eating well Labs improved OR to change wound vac on Wed med and labs Air mattress in place PT OT ordered Review of Systems General: Fatigue, Malaise Pulmonary: Dyspnea Focused Exam Lactate Level 11/29/20 06:40: Lactic Acid Level 0.72 Objective Exam Last Set of Vital Signs Vital Signs Date Time Temp Pulse Resp B/P (MAP) Pulse Ox O2 Delivery O2 Flow Rate FiO2 12/01/20 03:58 36.4 88 20 120/56 (77) 93 Nasal Cannula 3.00 11/28/20 21:48 40 Capillary Refill : Less Than 3 Seconds I&O Intake and Output 12/01/20 00:00 Intake Total 920 ml Output Total 1675 ml Balance -755 ml Intake Oral 920 ml Output Urine Total 325 ml Stool Total 1350 ml General: Alert, Oriented X3, Cooperative, No Acute Distress Lungs: Clear to Auscultation, Normal Air Movement Psych/Mental Status: Mental Status NL, Mood NL Results Lab Microbiology 11/16/20 MRSA Screen - Final, Complete MRSA not isolated 11/15/20 Gram Stain - Final, Resulted 11/15/20 Anaerobic Culture - Final, Resulted No anaerobes isolated 11/15/20 Surgical Culture - Final, Resulted Bobbi glabrata Bobbi species 11/15/20 Fungal Culture 1 - Preliminary, Resulted Bobbi glabrata Bobbi species Assessment/Plan Assessment/Plan Assess & Plan/Chief Complaint Assessment: Acute respiratory insufficiency requiring ICU transfer 11/25/20 Colon cancer Bowel resection with diverting ileostomy Psychosis Anemia requiring transfusion Severe KAKTOVIK Abdominal pain Hyponatremia Plan: 4th floor move Monitor closely 11/23/20: TPN Replace CL Monitor closely 11/24/20: Monitor closely TPN 11/25/20: Move to ICU Chrisor closely Appreciate Dr Moreno 11/26/20: ICI Vapotherm Monitor closely 11/27/20: Move to 4th Wean O2 Monitor labs 11/28/20: PT OT Wound vac change Vapotherm wean 11/29/20: Weaned Vapotherm Monitor BP 11/30/20: Work on nutrition Monitor BP 12/01/20: Labs stable Wound vac change in OR Wednesday PT OT Monitor lung function Diagnosis/Problems Diagnosis/Problems (1) Ileus following gastrointestinal surgery (2) Presbycusis of both ears (3) Ileostomy in place (4) Anemia due to acute blood loss (5) Colon cancer (6) Myopathy (7) Hyponatremia (8) COPD (chronic obstructive pulmonary disease) (9) S/P right hemicolectomy Clinical Quality Measures DVT/VTE Risk/Contraindication: Risk Factor Score Per Nursin WILFREDO MARTÍNEZ DO Dec 01, 2020 06:37
[2020-12-01] MEDS: SUCRALFATE 1 GM (CARAFATE) TAB PO SCH ×4 (06:51→20:24)
[2020-12-01 07:12] LABS: BASOPHILS % (AUTO) 0 % (0-10); EOSINOPHILS # (AUTO) 0.1 10^3/uL (0.0-0.3); EOSINOPHILS % (AUTO) 1 % (0-10); HEMATOCRIT 28 % (35-52); HEMOGLOBIN 8.9 g/dL (11.5-16.0); LYMPHOCYTES # (AUTO) 1.9 10^3/uL (1.0-4.0); LYMPHOCYTES % (AUTO) 29 % (12-44); MEAN CORPUSCULAR HEMOGLOBIN 30 pg (25-34); MEAN CORPUSCULAR HGB CONC 32 g/dL (32-36); MEAN CORPUSCULAR VOLUME 92 fL (80-99); MONOCYTES # (AUTO) 0.6 10^3/uL (0.0-1.0); MONOCYTES % (AUTO) 9 % (0-12); NEUTROPHILS % (AUTO) 61 % (42-75); PLATELET COUNT 160 10^3/uL (130-400); WHITE BLOOD COUNT 6.5 10^3/uL (4.3-11.0)
[2020-12-01 07:23] LABS: ALBUMIN 1.9 GM/DL (3.2-4.5)
[2020-12-01 07:24] LABS: CHLORIDE 102 MMOL/L (98-107); POTASSIUM 3.9 MMOL/L (3.6-5.0); SODIUM 133 MMOL/L (135-145)
[2020-12-01 07:25] LABS: CALCIUM 7.7 MG/DL (8.5-10.1)
[2020-12-01 07:26] LABS: GLUCOSE 114 MG/DL (70-105); TOTAL PROTEIN 4.7 GM/DL (6.4-8.2)
[2020-12-01] MEDS: RT-ALBUTEROL/IPRATROPIUM 3 ML (DUONEB) VIAL INH SCH ×3 (07:26→20:42)
[2020-12-01 07:27] LABS: CARBON DIOXIDE 23 MMOL/L (21-32)
[2020-12-01 07:28] LABS: BILIRUBIN,TOTAL 0.4 MG/DL (0.1-1.0)
[2020-12-01 07:29] LABS: ALKALINE PHOSPHATASE 177 U/L (40-136)
[2020-12-01] MEDS: PATIENT MAY USE OWN MED,SINGLE MED INH SCH (07:29)
[2020-12-01 07:30] LABS: CREATININE SERUM 0.77 MG/DL (0.60-1.30); GFR ESTIMATED > 60
[2020-12-01 07:31] LABS: BUN/CREATININE RATIO 27
[2020-12-01 07:33] LABS: ALANINE AMINOTRANSFERASE 15 U/L (0-55)
[2020-12-01 07:35] VITALS: BP 127/62
[2020-12-01] MEDS: NICOTINE 14 MG (NICODERM) PATCH TD SCH (08:55)
[2020-12-01] MEDS: NICOTINE PATCH REMOVAL TP SCH (08:55)
[2020-12-01] MEDS: PANTOPRAZOLE 40 MG (PROTONIX) VIAL IV SCH ×2 (08:55→20:25)
[2020-12-01] MEDS: METOCLOPRAMIDE INJ 10 MG/2 ML (REGLAN) IVP SCH ×2 (08:56→20:25)
[2020-12-01] MEDS: amLODIPine 10 MG (NORVASC) TAB PO SCH (08:56)
[2020-12-01] MEDS: lisINopril 20 MG (PRINIVIL) TABLET PO SCH (08:56)
[2020-12-01] MEDS: meTOprolol TARTRATE 25 MG (LOPRESSOR) TABLET PO SCH ×2 (08:56→20:24)
[2020-12-01 11:25] VITALS: BP 138/71
--- NOTE | 2020-12-01 12:09 | Progress Note - Surgery ---
Subjective Time Seen by a Provider: 11:39 Subjective/Events-last exam Pt seen and examined, she is eating lunch with no complaints. Review of Systems General: No Chills, No Night Sweats Pulmonary: No Dyspnea, No Cough Cardiovascular: No: Chest Pain, Palpitations Gastrointestinal: No: Nausea, Vomiting, Abdominal Pain Focused Exam Lactate Level 11/29/20 06:40: Lactic Acid Level 0.72 Objective Exam Vital Signs Date Time Temp Pulse Resp B/P (MAP) Pulse Ox O2 Delivery O2 Flow Rate FiO2 12/01/20 11:25 36.7 92 18 138/71 (93) 95 Nasal Cannula 3.00 12/01/20 08:00 Nasal Cannula 2.00 12/01/20 07:35 36.6 90 20 127/62 (83) 94 Nasal Cannula 3.00 12/01/20 07:26 95 Nasal Cannula 4.00 12/01/20 03:58 36.4 88 20 120/56 (77) 93 Nasal Cannula 3.00 12/01/20 00:00 36.9 88 20 126/58 (80) 95 Nasal Cannula 3.00 11/30/20 20:40 Nasal Cannula 3.00 11/30/20 19:55 36.8 98 20 139/63 (88) 95 Nasal Cannula 3.00 11/30/20 19:03 95 Nasal Cannula 3.00 11/30/20 15:25 37.0 98 20 168/72 (104) 94 Nasal Cannula 3.00 11/30/20 15:14 93 Nasal Cannula 3.00 I & O 12/01/20 07:00 Intake Total 820 ml Output Total 1600 ml Balance -780 ml Capillary Refill : Less Than 3 Seconds General Appearance: No Apparent Distress HEENT: PERRL/EOMI Respiratory: No Accessory Muscle Use, No Respiratory Distress, Decreased Breath Sounds Cardiovascular: Regular Rate, Rhythm, No Murmur Gastrointestinal: soft, other (ostomy pink and functioning, mucous fistula pink, VAC in place) Neurologic/Psychiatric: Alert, Oriented x3 Results Lab Laboratory Tests 12/01/20 07:05: White Blood Count 6.5, Red Blood Count 3.01L, Hemoglobin 8.9L, Hematocrit 28L, Mean Corpuscular Volume 92, Mean Corpuscular Hemoglobin 30, Mean Corpuscular Hemoglobin Concent 32, Red Cell Distribution Width 15.3H, Platelet Count 160, Mean Platelet Volume 11.0, Immature Granulocyte % (Auto) 0, Neutrophils (%) (Auto) 61, Lymphocytes (%) (Auto) 29, Monocytes (%) (Auto) 9, Eosinophils (%) (Auto) 1, Basophils (%) (Auto) 0, Neutrophils # (Auto) 4.0, Lymphocytes # (Auto) 1.9, Monocytes # (Auto) 0.6, Eosinophils # (Auto) 0.1, Basophils # (Auto) 0.0, Immature Granulocyte # (Auto) 0.0, Sodium Level 133L, Potassium Level 3.9, Chloride Level 102, Carbon Dioxide Level 23, Anion Gap 8, Blood Urea Nitrogen 21H, Creatinine 0.77, Estimat Glomerular Filtration Rate > 60, BUN/Creatinine Ratio 27, Glucose Level 114H, Calcium Level 7.7L, Corrected Calcium 9.4, Total Bilirubin 0.4, Aspartate Amino Transf (AST/SGOT) 21, Alanine Aminotransferase (ALT/SGPT) 15, Alkaline Phosphatase 177H, Total Protein 4.7L, Albumin 1.9L Microbiology 11/16/20 MRSA Screen - Final, Complete MRSA not isolated 11/15/20 Gram Stain - Final, Resulted 11/15/20 Anaerobic Culture - Final, Resulted No anaerobes isolated 11/15/20 Surgical Culture - Final, Resulted Bobbi glabrata Bobbi species 11/15/20 Fungal Culture 1 - Preliminary, Resulted Bobbi glabrata Bobbi species Assessment/Plan Assessment/Plan Assessment/Plan S/P Bowel resection with diverting ileostomy -secondary to Colon CA Anemia requiring transfusion Plan for VAC change wednesday and then primary abdominal wound closure this week. Continue PO intake, IS and Ambulation. Clinical Quality Measures DVT/VTE Risk/Contraindication: Risk Factor Score Per Nursin JIM TOURE DO Dec 01, 2020 12:09
--- NOTE | 2020-12-01 14:53 | Cardiology Progress Note ---
Cardiology SOAP Progress Note Subjective: No cardiac complaints. Objective: I&O/Vital Signs 12/01/20 12/01/20 12/01/20 12/01/20 03:58 07:26 07:35 08:00 Temp 36.4 36.6 Pulse 88 90 Resp 20 20 B/P (MAP) 120/56 (77) 127/62 (83) Pulse Ox 93 95 94 O2 Delivery Nasal Cannula Nasal Cannula Nasal Cannula Nasal Cannula O2 Flow Rate 3.00 4.00 3.00 2.00 12/01/20 11:25 Temp 36.7 Pulse 92 Resp 18 B/P (MAP) 138/71 (93) Pulse Ox 95 O2 Delivery Nasal Cannula O2 Flow Rate 3.00 12/01/20 00:00 Intake Total 320 ml Output Total 1050 ml Balance -730 ml Constitutional: other (on mech vent, unresponsive) Respiratory: No accessory muscle use; other (good, bilateral air entry, diminished at the bases) Cardiovascular: regular rate-rhythm, S1 and S2, systolic murmur (soft JOSIE at card base) Gastrointestional: other (recently post-op, we did not attempt palpation) Extremities: No clubbing, No cyanosis, No significant edema Neurologic/Psychiatric: other (unresponsive, on mech vent) Skin: No rash on exposed areas, No ulcerations on exposed areas Results/Procedures: Labs Laboratory Tests 12/01/20 07:05: White Blood Count 6.5, Red Blood Count 3.01L, Hemoglobin 8.9L, Hematocrit 28L, Mean Corpuscular Volume 92, Mean Corpuscular Hemoglobin 30, Mean Corpuscular Hemoglobin Concent 32, Red Cell Distribution Width 15.3H, Platelet Count 160, Mean Platelet Volume 11.0, Immature Granulocyte % (Auto) 0, Neutrophils (%) (Auto) 61, Lymphocytes (%) (Auto) 29, Monocytes (%) (Auto) 9, Eosinophils (%) (Auto) 1, Basophils (%) (Auto) 0, Neutrophils # (Auto) 4.0, Lymphocytes # (Auto) 1.9, Monocytes # (Auto) 0.6, Eosinophils # (Auto) 0.1, Basophils # (Auto) 0.0, Immature Granulocyte # (Auto) 0.0, Sodium Level 133L, Potassium Level 3.9, Chloride Level 102, Carbon Dioxide Level 23, Anion Gap 8, Blood Urea Nitrogen 21H, Creatinine 0.77, Estimat Glomerular Filtration Rate > 60, BUN/Creatinine Ratio 27, Glucose Level 114H, Calcium Level 7.7L, Corrected Calcium 9.4, Total Bilirubin 0.4, Aspartate Amino Transf (AST/SGOT) 21, Alanine Aminotransferase (ALT/SGPT) 15, Alkaline Phosphatase 177H, Total Protein 4.7L, Albumin 1.9L Microbiology 11/16/20 MRSA Screen - Final, Complete MRSA not isolated 11/15/20 Gram Stain - Final, Resulted 11/15/20 Anaerobic Culture - Final, Resulted No anaerobes isolated 11/15/20 Surgical Culture - Final, Resulted Bobbi glabrata Bobbi species 11/15/20 Fungal Culture 1 - Preliminary, Resulted Bobbi glabrata Bobbi species A/P: Assessment/Dx: Acute respiratory failure Sinus tachycardia Hypertension Hyperlipidemia Plan: Status post acute respiratory failure, extubated on November 18, 2020, improved initially, was transferred back to ICU on November 25, 2020 for acute respiratory failure again, feeling better at this time, still having some shortness of breath. Continue to monitor Confusion, delirium, waxing and waning, better today. Continue to monitor Anemia, significant drop in H&H, see blood transfusion, better at this time, continue to monitor H&H Status post extended right hemicolectomy and ileostomy revision for ileostomy, had her wound VAC replaced, appeared to be feeling better today. Managed by primary care team COPD, followed and managed by primary care physician Sinus tachycardia, secondary to hypoxia, and anemia, started on low-dose beta blockers. Continue to monitor Hypertension, poor control, currently on multiple blood pressure medication, continue to monitor blood pressure Hyperlipidemia monitor lipids Thank you for your consultation. Please call me if you have any questions. Boom Morgan MD, FACP, FACC, FSCAI, FHRS, CCDS Interventional Cardiology Cardiac Electrophysiology Vascular Medicine and Endovascular Interventions Focused Exam Lactate Level 11/29/20 06:40: Lactic Acid Level 0.72 Lisandro MORGAN MD Dec 01, 2020 14:53
[2020-12-01 16:00] VITALS: BP 103/51
[2020-12-01 20:00] VITALS: BP 129/62
[2020-12-01] MEDS: ENOXAPARIN 40 MG/0.4 ML (LOVENOX) SYR SC SCH (20:24)
[2020-12-01] MEDS: MELATONIN 3 MG TABLET PO PRN (21:45)
[2020-12-02 00:11] VITALS: BP 106/53
[2020-12-02] MEDS: diphenhydrAMINE 25 MG TAB (BENADRYL) PO PRN (02:06)
[2020-12-02] MEDS: HYDROmorphone 2 MG/ML VIAL (DILAUDID) IV PRN ×3 (02:06→12:23)
[2020-12-02 04:00] VITALS: BP 100/55
[2020-12-02 04:58] LABS: BASOPHILS % (AUTO) 0 % (0-10); MEAN CORPUSCULAR HEMOGLOBIN 29 pg (25-34)
[2020-12-02 05:00] LABS: EOSINOPHILS # (AUTO) 0.1 10^3/uL (0.0-0.3); EOSINOPHILS % (AUTO) 2 % (0-10); HEMATOCRIT 27 % (35-52); HEMOGLOBIN 8.6 g/dL (11.5-16.0); LYMPHOCYTES # (AUTO) 1.8 10^3/uL (1.0-4.0); LYMPHOCYTES % (AUTO) 31 % (12-44); MEAN CORPUSCULAR HGB CONC 32 g/dL (32-36); MEAN CORPUSCULAR VOLUME 92 fL (80-99); MONOCYTES # (AUTO) 0.5 10^3/uL (0.0-1.0); MONOCYTES % (AUTO) 10 % (0-12); NEUTROPHILS # (AUTO) 3.3 10^3/uL (1.8-7.8); NEUTROPHILS % (AUTO) 57 % (42-75); PLATELET COUNT 143 10^3/uL (130-400); WHITE BLOOD COUNT 5.7 10^3/uL (4.3-11.0)
[2020-12-02 05:28] LABS: CHLORIDE 100 MMOL/L (98-107); POTASSIUM 3.9 MMOL/L (3.6-5.0); SODIUM 133 MMOL/L (135-145)
[2020-12-02 05:29] LABS: CALCIUM 7.9 MG/DL (8.5-10.1)
[2020-12-02 05:30] LABS: GLUCOSE 109 MG/DL (70-105); TOTAL PROTEIN 4.9 GM/DL (6.4-8.2)
[2020-12-02 05:31] LABS: CARBON DIOXIDE 24 MMOL/L (21-32)
[2020-12-02 05:32] LABS: BILIRUBIN,TOTAL 0.4 MG/DL (0.1-1.0)
[2020-12-02 05:34] LABS: ALKALINE PHOSPHATASE 180 U/L (40-136); GFR ESTIMATED > 60
[2020-12-02 05:35] LABS: BUN/CREATININE RATIO 24
[2020-12-02 05:37] LABS: ALANINE AMINOTRANSFERASE 15 U/L (0-55)
[2020-12-02] MEDS: SUCRALFATE 1 GM (CARAFATE) TAB PO SCH ×4 (06:29→21:02)
--- NOTE | 2020-12-02 06:33 | Pulmonary Progress Note ---
Subjective Time Seen by a Provider: 06:31 Subjective/Events-last exam No complications noted. Sepsis Event Evaluation Height, Weight, BMI Height: '" Weight: lbs. oz. kg; 34.48 BMI Method: Focused Exam Lactate Level 11/29/20 06:40: Lactic Acid Level 0.72 Exam Exam Vital Signs Date Time Temp Pulse Resp B/P (MAP) Pulse Ox O2 Delivery O2 Flow Rate FiO2 12/02/20 04:00 36.8 83 20 100/55 (70) 94 Nasal Cannula 3.00 12/02/20 00:11 36.9 78 18 106/53 (70) 95 Nasal Cannula 3.00 12/01/20 20:43 95 Nasal Cannula 3.00 12/01/20 20:24 Nasal Cannula 3.00 12/01/20 20:00 37.0 94 20 129/62 (84) 94 Nasal Cannula 3.00 12/01/20 16:00 36.8 86 16 103/51 (68) 93 Nasal Cannula 3.00 12/01/20 11:25 36.7 92 18 138/71 (93) 95 Nasal Cannula 3.00 12/01/20 08:00 Nasal Cannula 2.00 12/01/20 07:35 36.6 90 20 127/62 (83) 94 Nasal Cannula 3.00 12/01/20 07:26 95 Nasal Cannula 4.00 I & O 12/02/20 07:00 Intake Total 1450 ml Output Total 2250 ml Balance -800 ml Height & Weight Height: '" Weight: lbs. oz. kg; 34.48 BMI Method: General Appearance: No Apparent Distress HEENT: PERRL/EOMI Respiratory: No Accessory Muscle Use, No Respiratory Distress, Decreased Breath Sounds Cardiovascular: Regular Rate, Rhythm, No Murmur Gastrointestinal: soft, other (ostomy pink and functioning, mucous fistula pink, VAC in place) Neurologic/Psychiatric: Alert, Oriented x3 Results Lab Laboratory Tests 12/01/20 07:05 12/02/20 04:45 Assessment/Plan Assessment/Plan Acute respiratory failure s/p surgery - now resolved -Pt was admitted on 10/31 for hemicolectomy. -Currently on 3 liter NC S/p multiple surgeries last surgery was 11/15 s/p revision of iliostomy/hemico lectomy with colostomy -Surgery is following Sepsis with abdominal abscess - S/P Merrem,and Eraxis Agitation/aggressive behavior -Haldol PRN -Pain control HTN -Lopressor, Lisinopril, Norvasc -Hydralazine PRN Anemia -monitor S/p hemicolectomy secondary to Colon cancer then ileostomy secondary to torsion. repeat surgery secondary to persistent intraabdominal sepsis. Debility HX of COPD with oxygen dependance at home Tobacco dependance anemia s/p 4 units of PRBC GIOVANNA BORREGO DO Dec 02, 2020 06:33
[2020-12-02] MEDS: RT-ALBUTEROL/IPRATROPIUM 3 ML (DUONEB) VIAL INH SCH ×3 (07:24→19:01)
[2020-12-02 08:00] VITALS: BP 112/63
[2020-12-02] MEDS: PANTOPRAZOLE 40 MG (PROTONIX) VIAL IV SCH ×2 (08:22→20:58)
[2020-12-02] MEDS: FENTANYL PATCH REMOVAL TP SCH (08:23)
[2020-12-02] MEDS: fentaNYL PATCH 25 MCG (DURAGESIC) TD SCH (08:23)
[2020-12-02] MEDS: amLODIPine 10 MG (NORVASC) TAB PO SCH (08:24)
[2020-12-02] MEDS: NICOTINE 14 MG (NICODERM) PATCH TD SCH (08:24)
[2020-12-02] MEDS: NICOTINE PATCH REMOVAL TP SCH (08:24)
[2020-12-02] MEDS: meTOprolol TARTRATE 25 MG (LOPRESSOR) TABLET PO SCH ×2 (08:24→20:59)
[2020-12-02] MEDS: lisINopril 20 MG (PRINIVIL) TABLET PO SCH (08:25)
[2020-12-02] MEDS: METOCLOPRAMIDE INJ 10 MG/2 ML (REGLAN) IVP SCH ×2 (08:25→20:59)
--- NOTE | 2020-12-02 10:14 | Progress Note - Hospitalist ---
Subjective HPI/CC On Admission Date Seen by Provider: Dec 02, 2020 Time Seen by Provider: 10:00 CC: VDRF following surgery for abscess and ileostomy ischemia HPI: This is a 75yoWF clinic patient of Dr Ba who presents to the ICU following urgent surgery following failure on IRF due to sepsis and elevated wbc. Patient was assessed to have ileostomy ischemia and abscess. Patient is currently on Cipro, Flagyl, Vanc, Kinga and Diflucan. Patient has a h/o colon cancer s/p resection 2 weeks ago and I was consulted for AECOPD due to long smoking hx and severe anemia s/p transfusion and resolution of hyponatremia. She had a complication of torsion requiring diverting ileostomy and she became strong enough to go to IRF but only lasted 2 days before she decompensated. Currently she remains intubated and critically ill. Subjective/Events-last exam Pt in a pretty good mood Eating and drinking well Labs stable Denies any significant new issues No SOB but. Lungs are coarse Review of Systems General: Fatigue, Malaise Cardiovascular: Edema Neurological: Weakness, Incoordination Objective Exam Vital Signs Vital Signs Date Time Temp Pulse Resp B/P (MAP) Pulse Ox O2 Delivery O2 Flow Rate FiO2 12/03/20 04:00 36.7 83 21 128/62 (84) 96 Nasal Cannula 2.00 11/28/20 21:48 40 Capillary Refill : Less Than 3 Seconds General Appearance: No Apparent Distress, WD/WN, Chronically ill Respiratory: No Accessory Muscle Use, No Respiratory Distress, Crackles Cardiovascular: Regular Rate, Rhythm Extremity: Pedal Edema Neurologic/Psychiatric: Alert, Oriented x3, No Motor/Sensory Deficits, Normal Mood/Affect Results/Procedures Lab Patient resulted labs reviewed. Assessment/Plan Assessment and Plan Assess & Plan/Chief Complaint Guarded prognosis Assessment: Colon cancer Bowel resection with diverting ileostomy Psychosis Anemia requiring transfusion Severe EYAK Abdominal pain Hyponatremia Plan: 4th floor move Monitor closely 11/23/20: TPN Replace CL Monitor closely 11/24/20: Monitor closely TPN 11/25/20: Move to ICU Chrisor closely Appreciate Dr Moreno 11/26/20: ICI Vapotherm Monitor closely 11/27/20: Move to 4th Wean O2 Monitor labs 11/28/20: PT OT Wound vac change Vapotherm wean 11/29/20: Weaned Vapotherm Monitor BP 11/30/20: Work on nutrition Monitor BP 12/01/20: Labs stable Wound vac change in OR Wednesday PT OT Monitor lung function 12/02/20: Monitor closely Lungs are coarse today Critical Care Critically Ill Patient Diagnosis/Problems Diagnosis/Problems (1) Ileus following gastrointestinal surgery (2) Presbycusis of both ears (3) Ileostomy in place (4) Anemia due to acute blood loss (5) Colon cancer (6) Myopathy (7) Hyponatremia (8) COPD (chronic obstructive pulmonary disease) (9) S/P right hemicolectomy Clinical Quality Measures DVT/VTE Risk/Contraindication: Risk Factor Score Per Nursin WILFREDO MARTÍNEZ DO Dec 02, 2020 10:14
[2020-12-02] MEDS: PATIENT MAY USE OWN MED,SINGLE MED INH SCH (11:30)
--- NOTE | 2020-12-02 11:30 | Physical Therapy Daily Note ---
PT Daily Note-Current Subjective Patient agrees to PT. PT/OT cotreat. Mental Status Patient Orientation: Person, Time, Situation Attachments: Colostomy/Ileostomy, Oxygen, Lam Catheter wound vac Transfers SCALE: Activities may be completed with or without assistive devices. 7-Iblpevexea-rjeopap completes the activity by him/herself with no assistance from a helper. 5-Set-up or Clean-up Assistance-helper sets up or cleans up; patient completes activity. [place] assists only prior to or following the activity. 4-Supervision or Touching Assistance-helper provides verbal cues and/or touching/steadying and/or contact guard assistance as patient completes activity. Assistance may be provided throughout the activity or intermittently. 3-Partial/Moderate Assistance-helper does LESS THAN HALF the effort. [place] lifts, holds or supports trunk or limbs, but provides less than half the effort. 2-Substantial/Maximal Assistance-helper does MORE THAN HALF the effort. [place] lifts or holds trunk or limbs and provides more than half the effort. 0-Frviodlyr-zsbwau does ALL the effort. Patient does none of the effort to complete the activity. Or, the assistance of 2 or more helpers is required for the patient to complete the activity. If activity was not attempted, code reason: 7-Patient Refused. 9-Not Applicable-not attempted and the patient did not perform the activity before the current illness, exacerbation or injury. 10-Not Attempted due to Environmental Limitations-(lack of equipment, weather restraints, etc.). 88-Not Attempted due to Medical Conditions or Safety Concerns. Roll Left & Right (QC): 2 Lying to Sitting/Side of Bed(Q: 3 Sit to Stand (QC): 2 Chair/Uip-pf-Obhyg Xfer(QC): 2 Assessment Patient colostomy leaking requiring assistance to cleanse and change bedding and patient. Patient did perform sit to stand and SPT max assist of 1 with CGA of 1 for safety. Increase activity as tolerated by patient. PT Short Term Goals Short Term Goals Time Frame: Dec 07, 2020 Roll Left & Right: 3 Sit to lyin Lying to sitting on side of be: 3 Sit to stand: 3 Chair/hwl-hb-mamhy transfer: 3 PT Halfway Goals Chipping Machine Operator Goals PT Halfway Goals Time Frame: Dec 04, 2020 Roll Left & Right (QC): 4 Sit to Lying (QC): 3 Lying-Sitting on Side/Bed(QC): 3 Sit to Stand (QC): 3 Chair/Ume-jz-Yzbjp Xfer(QC): 3 PT Plan Treatment/Plan Treatment Plan: Continue Plan of Care Treatment Plan: Bed Mobility, Education, Functional Activity [place], Functional Strength, Gait, Safety, Therapeutic Exercise, Transfers Treatment Duration: Dec 04, 2020 Frequency: 6 times per week Estimated Hrs Per Day: .25 hour per day Time/GCodes Time In: 1046 Time Out: 1109 Total Billed Treatment Time: 23 Total Billed Treatment 1 visit FA x 2 23 min ROBERT SCHWAB PT Dec 02, 2020 11:30
[2020-12-02 12:00] VITALS: BP 129/73
--- NOTE | 2020-12-02 13:08 | Occupational Ther Daily Note ---
OT Current Status-Daily Note Subjective No pain reported. Mental Status/Objective Patient Orientation: Person, Place Attachments: Colostomy/Ileostomy, IV, Oxygen ADL-Treatment Therapy Code Descriptions/Definitions Functional [place] Measure: 0=Not Assessed/NA 4=Minimal Assistance 1=Total Assistance 5=Supervision or Setup 2=Maximal Assistance 6=Modified [place] 3=Moderate Assistance 7=Complete IndependenceSCALE: Activities may be completed with or without assistive devices. 1-Ucbqezajue-szeudry completes the activity by him/herself with no assistance f rom a helper. 5-Set-up or Clean-up Assistance-helper sets up or cleans up; patient completes activity. [place] assists only prior to or following the activity. 4-Supervision or Touching Assistance-helper provides verbal cues and/or touching/steadying and/or contact guard assistance as patient completes activity. Assistance may be provided throughout the activity or intermittently. 3-Partial/Moderate Assistance-helper does LESS THAN HALF the effort. [place] lifts, holds or supports trunk or limbs, but provides less than half the effort. 2-Substantial/Maximal Assistance-helper does MORE THAN HALF the effort. [place] lifts or holds trunk or limbs and provides more than half the effort. 8-Dpbfdtvkr-mdguit does ALL the effort. Patient does none of the effort to complete the activity. Or, the assistance of 2 or more helpers is required for the patient to complete the activity. If activity was not attempted, code reason: 7-Patient Refused. 9-Not Applicable-not attempted and the patient did not perform the activity before the current illness, exacerbation or injury. 10-Not Attempted due to Environmental Limitations-(lack of equipment, weather restraints, etc.). 88-Not Attempted due to Medical Conditions or Safety Concerns. Shower/Bathe Self (QC): 2 On/Off Footwear: 2 Toileting Hygiene (QC): 1 Other Treatment OT/PT co-treated due to need of skilled assistance x 2 for mobility and ADL skills. Pt's colostomy bag had leaked all over pt. and bed. PT facilitated pt. to roll in bed with mod assist while OT cleansed pt and attempted to seal bag. Nursing called in and assessed colostomy and sealed it. OT assists with donning fresh gown, and PT/OT complete bed change while pt. is rolling. Pt. transfers supine-sit with min assist and increased time. She is able to sit on side of bed and balance. Transfers sit-stand and pivot to chair with max assist of one person and min assist of another. All needs are met up in reclining chair. Nurse aide in room with pt. when OT leaves room. Education OT Patient Education: Correct positioning, Modified ADL techniques, Progress toward Goal/Update tx plan, Purpose of tx/functional activities, Reviewed pr ecautions, Rehab process, Transfer techniques Teaching Recipient: Patient Teaching Methods: Demonstration, Discussion Response to Teaching: Verbalize Understanding, Return Demonstration, Kashif nforcement Needed OT Short Term Goals Short Term Goals Time Frame: Dec 03, 2020 Eatin Oral hygiene: 3 Toileting hygiene: 3 Shower/bathe self: 3 Upper body dressin Lower body dressin Putting on/taking off footwear: 3 OT [employer] Goals Intermediate Goals Time Frame: Dec 17, 2020 Eating (QC): 6 Oral Hygiene (QC): 6 Toileting Hygiene (QC): 6 Shower/Bathe Self (QC): 4 Upper Body Dressing (QC): 5 Lower Body Dressing (QC): 4 On/Off Footwear (QC): 4 Additional Goals: 1-Demonstrate ADL Tasks, 2-Verbalize Understanding, 3- ImproveStrength/[place] 1=Demonstrate adherence to instructed precautions during ADL tasks. 2=Patient will verbalize/demonstrate understanding of assistive devices/modifications for ADL. 3=Patient will improve strength/tolerance for activity to enable patient to perform ADL's. OT Education/Plan Problem List/Assessment Assessment: Decreased Activ Tolerance, Dependent Transfers, Impaired Bed Mobility, Impaired I ADL's, Impaired Self-Care Skills Discharge Recommendations Plan/Recommendations: Continue POC Treatment Plan/Plan of Care Treatment,Training & Education: Yes Patient would benefit from OT for education, treatment and training to promote independence in ADL's, mobility, safety and/or upper extremity function for ADL' s. Plan of Care: ADL Retraining, Functional Mobility, UE Funct Exercise/Act Treatment Duration: Dec 17, 2020 Frequency: 5 times per week Estimated Hrs Per Day: .25 hour per day Agreement: Yes Rehab Potential: Fair Time/GCodes Start Time: 10:46 Stop Time: 11:09 Total Time Billed (hr/min): 23 Billed Treatment Time 1, ADL x 15minutes, FA x 8minutes KOKI STOKES OT Dec 02, 2020 13:08
--- NOTE | 2020-12-02 14:32 | Progress Note - Cardiology ---
Cardiology SOAP Progress Note Subjective: Sitting up in bed No c/o CP, SOB, palpitations Objective: I&O/Vital Signs 12/04/20 12/04/20 12/04/20 12/04/20 00:00 04:00 06:13 07:25 Temp 36.0 36.1 Pulse 95 91 Resp 22 22 B/P (MAP) 116/56 (76) 97/56 (70) 123/58 (79) Pulse Ox 94 94 88 O2 Delivery Nasal Cannula Nasal Cannula Nasal Cannula O2 Flow Rate 2.00 2.00 2.00 12/04/20 12/04/20 08:00 09:00 Temp 36.0 Pulse 96 Resp 18 B/P (MAP) 126/59 (81) Pulse Ox 94 94 O2 Delivery Nasal Cannula Nasal Cannula O2 Flow Rate 2.00 2.00 12/04/20 00:00 Intake Total 1260 ml Output Total 2292 ml Balance -1032 ml Constitutional: AAO x 3 Respiratory: No accessory muscle use; other (good, bilateral air entry, diminished at the bases) Cardiovascular: regular rate-rhythm, S1 and S2, systolic murmur (soft JOSIE at card base) Gastrointestional: other (recently post-op, we did not attempt palpation) Extremities: no lower extremity edema bilateral Neurologic/Psychiatric: oriented x 3 Skin: No rash on exposed areas, No ulcerations on exposed areas Results/Procedures: Labs Laboratory Tests 12/04/20 05:35: White Blood Count 4.9, Red Blood Count 2.89L, Hemoglobin 8.4L, Hematocrit 26L, Mean Corpuscular Volume 91, Mean Corpuscular Hemoglobin 29, Mean Corpuscular Hemoglobin Concent 32, Red Cell Distribution Width 14.6H, Platelet Count 188, Mean Platelet Volume 10.0, Sodium Level 130L, Potassium Level 4.2, Chloride Level 99, Carbon Dioxide Level 24, Anion Gap 7, Blood Urea Nitrogen 12, Creatinine 0.71, Estimat Glomerular Filtration Rate > 60, BUN/Creatinine Ratio 17, Glucose Level 111H, Calcium Level 7.9L, Corrected Calcium 9.4, Total Bilirubin 0.3, Aspartate Amino Transf (AST/SGOT) 22, Alanine Aminotransferase (ALT/SGPT) 18, Alkaline Phosphatase 219H, Total Protein 5.0L, Albumin 2.1L Microbiology 11/16/20 MRSA Screen - Final, Complete MRSA not isolated 11/15/20 Gram Stain - Final, Resulted 11/15/20 Anaerobic Culture - Final, Resulted No anaerobes isolated 11/15/20 Surgical Culture - Final, Resulted Bobbi glabrata Bobbi species 11/15/20 Fungal Culture 1 - Preliminary, Resulted Bobbi glabrata Bobbi species A/P: Assessment: S/p extended right hemicolectomy, end ileostomy, revision ileostomy, drainage of intraabdominal abscess and VAC placement Ac resp failure following above surgeries COPD H/o hypertension and hyperlipidemia H/o tobacco use Plan: * Continue current regimen * Monitor lab * Replace electrolytes as indicated MONTY MYERS Dec 02, 2020 14:32
--- NOTE | 2020-12-02 15:41 | Progress Note ---
Subjective Date Seen by a Provider: Dec 02, 2020 Time Seen by a Provider: 15:00 Subjective/Events-last exam doing well. tolerating diet. functional ostomies. wound vac intact. Objective Exam Vital Signs Date Time Temp Pulse Resp B/P (MAP) Pulse Ox O2 Delivery O2 Flow Rate FiO2 12/02/20 14:27 90 Nasal Cannula 2.00 12/02/20 12:00 36.1 90 20 129/73 (91) 93 Nasal Cannula 3.00 12/02/20 08:00 36.1 85 20 112/63 (79) 95 Nasal Cannula 3.00 12/02/20 07:24 85 Room Air 12/02/20 04:00 36.8 83 20 100/55 (70) 94 Nasal Cannula 3.00 12/02/20 00:11 36.9 78 18 106/53 (70) 95 Nasal Cannula 3.00 12/01/20 20:43 95 Nasal Cannula 3.00 12/01/20 20:24 Nasal Cannula 3.00 12/01/20 20:00 37.0 94 20 129/62 (84) 94 Nasal Cannula 3.00 12/01/20 16:00 36.8 86 16 103/51 (68) 93 Nasal Cannula 3.00 I & O 12/02/20 07:00 Intake Total 1800 ml Output Total 2525 ml Balance -725 ml Capillary Refill : Less Than 3 Seconds General Appearance: No Apparent Distress HEENT: PERRL/EOMI Neck: Full Range of Motion Respiratory: Decreased Breath Sounds, Wheezing Cardiovascular: Regular Rate, Rhythm Gastrointestinal: normal bowel sounds, soft Extremity: Normal Capillary Refill Neurologic/Psychiatric: Alert, Oriented x3 Skin: Normal Color Lymphatic: No Adenopathy Results Lab Laboratory Tests 12/02/20 04:45: White Blood Count 5.7, Red Blood Count 2.96L, Hemoglobin 8.6L, Hematocrit 27L, Mean Corpuscular Volume 92, Mean Corpuscular Hemoglobin 29, Mean Corpuscular Hemoglobin Concent 32, Red Cell Distribution Width 15.0H, Platelet Count 143, Mean Platelet Volume 11.0, Immature Granulocyte % (Auto) 1, Neutrophils (%) (Auto) 57, Lymphocytes (%) (Auto) 31, Monocytes (%) (Auto) 10, Eosinophils (%) (Auto) 2, Basophils (%) (Auto) 0, Neutrophils # (Auto) 3.3, Lymphocytes # (Auto) 1.8, Monocytes # (Auto) 0.5, Eosinophils # (Auto) 0.1, Basophils # (Auto) 0.0, Immature Granulocyte # (Auto) 0.0, Sodium Level 133L, Potassium Level 3.9, Chloride Level 100, Carbon Dioxide Level 24, Anion Gap 9, Blood Urea Nitrogen 1 9H, Creatinine 0.80, Estimat Glomerular Filtration Rate > 60, BUN/Creatinine Ratio 24, Glucose Level 109H, Calcium Level 7.9L, Corrected Calcium 9.5, Total Bilirubin 0.4, Aspartate Amino Transf (AST/SGOT) 20, Alanine Aminotransferase (ALT/SGPT) 15, Alkaline Phosphatase 180H, Total Protein 4.9L, Albumin 2.0L Microbiology 11/16/20 MRSA Screen - Final, Complete MRSA not isolated 11/15/20 Gram Stain - Final, Resulted 11/15/20 Anaerobic Culture - Final, Resulted No anaerobes isolated 11/15/20 Surgical Culture - Final, Resulted Bobbi glabrata Bobbi species 11/15/20 Fungal Culture 1 - Preliminary, Resulted Bobbi glabrata Bobbi species Assessment/Plan Assessment/Plan Assess & Plan/Chief Complaint s/p extended right hemicolectomy, end ileostomy, mucous fistula, revision ileostomy, drainage intraabd abscess and VAC placement. will change vac about every 5 days. start a carbapenem. cont TPN cont respiratory support and diuresis. advance to reg diet. definitive abd closure with biologic mesh on wednesday(12/04) Clinical Quality Measures DVT/VTE Risk/Contraindication: Risk Factor Score Per Nursin MICHAEL XIONG MD Dec 02, 2020 15:41
[2020-12-02 16:29] VITALS: BP 135/64
--- NOTE | 2020-12-02 19:06 | Progress Note - Cardiology ---
Cardiology SOAP Progress Note Subjective: Somnolent. Does not report any symptoms Objective: I&O/Vital Signs 12/02/20 12/02/20 12/02/20 12/02/20 07:24 08:00 12:00 14:27 Temp 36.1 36.1 Pulse 85 90 Resp 20 20 B/P (MAP) 112/63 (79) 129/73 (91) Pulse Ox 85 95 93 90 O2 Delivery Room Air Nasal Cannula Nasal Cannula Nasal Cannula O2 Flow Rate 3.00 3.00 2.00 12/02/20 12/02/20 16:29 19:02 Temp 36.6 Pulse 91 Resp 18 B/P (MAP) 135/64 (87) Pulse Ox 93 95 O2 Delivery Nasal Cannula Nasal Cannula O2 Flow Rate 2.00 2.00 12/02/20 00:00 Intake Total 1450 ml Output Total 2250 ml Balance -800 ml Constitutional: AAO x 3 Respiratory: No accessory muscle use; other (good, bilateral air entry, diminished at the bases) Cardiovascular: regular rate-rhythm, S1 and S2, systolic murmur (soft JOSIE at card base) Gastrointestional: other (recently post-op, we did not attempt palpation) Extremities: no lower extremity edema bilateral Neurologic/Psychiatric: oriented x 3 Skin: No rash on exposed areas, No ulcerations on exposed areas Results/Procedures: Labs Laboratory Tests 12/02/20 04:45: White Blood Count 5.7, Red Blood Count 2.96L, Hemoglobin 8.6L, Hematocrit 27L, Mean Corpuscular Volume 92, Mean Corpuscular Hemoglobin 29, Mean Corpuscular Hemoglobin Concent 32, Red Cell Distribution Width 15.0H, Platelet Count 143, Mean Platelet Volume 11.0, Immature Granulocyte % (Auto) 1, Neutrophils (%) (Aut o) 57, Lymphocytes (%) (Auto) 31, Monocytes (%) (Auto) 10, Eosinophils (%) (Auto) 2, Basophils (%) (Auto) 0, Neutrophils # (Auto) 3.3, Lymphocytes # (Auto) 1.8, Monocytes # (Auto) 0.5, Eosinophils # (Auto) 0.1, Basophils # (Auto) 0.0, Immature Granulocyte # (Auto) 0.0, Sodium Level 133L, Potassium Level 3.9, Chloride Level 100, Carbon Dioxide Level 24, Anion Gap 9, Blood Urea Nitrogen 19H, Creatinine 0.80, Estimat Glomerular Filtration Rate > 60, BUN/Creatinine Ratio 24, Glucose Level 109H, Calcium Level 7.9L, Corrected Calcium 9.5, Total Bilirubin 0.4, Aspartate Amino Transf (AST/SGOT) 20, Alanine Aminotransferase (ALT/SGPT) 15, Alkaline Phosphatase 180H, Total Protein 4.9L, Albumin 2.0L Microbiology 11/16/20 MRSA Screen - Final, Complete MRSA not isolated 11/15/20 Gram Stain - Final, Resulted 11/15/20 Anaerobic Culture - Final, Resulted No anaerobes isolated 11/15/20 Surgical Culture - Final, Resulted Bobbi glabrata Bobbi species 11/15/20 Fungal Culture 1 - Preliminary, Resulted Bobbi glabrata Bobbi species Laboratory Tests 12/01/20 07:05 12/02/20 04:45 A/P: Assessment: S/p extended right hemicolectomy, end ileostomy, revision ileostomy, drainage of intraabdominal abscess and VAC placement Ac resp failure following above surgeries COPD H/o hypertension and hyperlipidemia H/o tobacco use Plan: * Continue current regimen * Monitor lab * Replace electrolytes as indicated JENNIFER JUAREZ MD FACP FAC CCDS Dec 02, 2020 19:05
[2020-12-02 19:35] VITALS: BP 133/64
[2020-12-02] MEDS: MELATONIN 3 MG TABLET PO PRN (20:59)
[2020-12-02] MEDS: ENOXAPARIN 40 MG/0.4 ML (LOVENOX) SYR SC SCH (20:59)
[2020-12-02] MEDS: HYDROcodone/APAP 7.5MG-325 MG/15 ML (LORTAB) UDC PO PRN (21:32)
[2020-12-03] VITALS (7 sets, daily range): BP systolic 115–132; BP diastolic 56–63
[2020-12-03] MEDS: fentaNYL INJECTION 100 MCG/2 ML AMP IVP PRN (00:16)
[2020-12-03] MEDS: diphenhydrAMINE 25 MG TAB (BENADRYL) PO PRN (02:14)
[2020-12-03] MEDS: SUCRALFATE 1 GM (CARAFATE) TAB PO SCH ×4 (06:05→21:22)
[2020-12-03 06:23] LABS: BASOPHILS % (AUTO) 0 % (0-10); EOSINOPHILS # (AUTO) 0.1 10^3/uL (0.0-0.3); EOSINOPHILS % (AUTO) 2 % (0-10); HEMATOCRIT 28 % (35-52); HEMOGLOBIN 8.7 g/dL (11.5-16.0); LYMPHOCYTES # (AUTO) 2.1 10^3/uL (1.0-4.0); LYMPHOCYTES % (AUTO) 40 % (12-44); MEAN CORPUSCULAR HEMOGLOBIN 29 pg (25-34); MEAN CORPUSCULAR HGB CONC 32 g/dL (32-36); MEAN CORPUSCULAR VOLUME 92 fL (80-99); MEAN PLATELET VOLUME 10.3 fL (9.0-12.2); MONOCYTES # (AUTO) 0.6 10^3/uL (0.0-1.0); MONOCYTES % (AUTO) 11 % (0-12); NEUTROPHILS # (AUTO) 2.4 10^3/uL (1.8-7.8); NEUTROPHILS % (AUTO) 46 % (42-75); PLATELET COUNT 153 10^3/uL (130-400); WHITE BLOOD COUNT 5.2 10^3/uL (4.3-11.0)
[2020-12-03 06:30] LABS: ALBUMIN 2.1 GM/DL (3.2-4.5)
[2020-12-03 06:31] LABS: CHLORIDE 99 MMOL/L (98-107); SODIUM 131 MMOL/L (135-145)
[2020-12-03 06:32] LABS: CALCIUM 7.8 MG/DL (8.5-10.1)
[2020-12-03 06:33] LABS: GLUCOSE 116 MG/DL (70-105); TOTAL PROTEIN 4.9 GM/DL (6.4-8.2)
[2020-12-03 06:34] LABS: CARBON DIOXIDE 24 MMOL/L (21-32)
[2020-12-03 06:35] LABS: BILIRUBIN,TOTAL 0.3 MG/DL (0.1-1.0)
[2020-12-03 06:36] LABS: ALKALINE PHOSPHATASE 205 U/L (40-136)
[2020-12-03 06:37] LABS: CREATININE SERUM 0.74 MG/DL (0.60-1.30); GFR ESTIMATED > 60
[2020-12-03 06:38] LABS: BUN/CREATININE RATIO 19
[2020-12-03 06:39] LABS: ALANINE AMINOTRANSFERASE 16 U/L (0-55)
[2020-12-03] MEDS: lisINopril 20 MG (PRINIVIL) TABLET PO SCH (08:49)
[2020-12-03] MEDS: meTOprolol TARTRATE 25 MG (LOPRESSOR) TABLET PO SCH ×2 (08:49→21:19)
[2020-12-03] MEDS: amLODIPine 10 MG (NORVASC) TAB PO SCH (08:49)
[2020-12-03] MEDS: PANTOPRAZOLE 40 MG (PROTONIX) VIAL IV SCH ×2 (08:49→21:18)
[2020-12-03] MEDS: METOCLOPRAMIDE INJ 10 MG/2 ML (REGLAN) IVP SCH ×2 (08:49→20:57)
[2020-12-03] MEDS: NICOTINE 14 MG (NICODERM) PATCH TD SCH (08:49)
[2020-12-03] MEDS: NICOTINE PATCH REMOVAL TP SCH (08:55)
[2020-12-03] MEDS: PATIENT MAY USE OWN MED,SINGLE MED INH SCH (08:58)
[2020-12-03] MEDS: RT-ALBUTEROL/IPRATROPIUM 3 ML (DUONEB) VIAL INH SCH ×3 (09:22→19:30)
--- NOTE | 2020-12-03 13:36 | Progress Note ---
Subjective Date Seen by a Provider: Dec 03, 2020 Time Seen by a Provider: 13:00 Subjective/Events-last exam doing well. no fever/chills. tolerating diet with ileostomy functional. Objective Exam Vital Signs Date Time Temp Pulse Resp B/P (MAP) Pulse Ox O2 Delivery O2 Flow Rate FiO2 12/03/20 12:00 36.0 92 20 116/56 (76) 95 12/03/20 09:22 95 Nasal Cannula 2.00 12/03/20 08:00 96 Nasal Cannula 2.00 12/03/20 08:00 35.6 91 16 132/63 (86) 94 12/03/20 04:00 36.7 83 21 128/62 (84) 96 Nasal Cannula 2.00 12/03/20 01:08 36.5 86 19 120/56 (77) 93 Nasal Cannula 2.00 12/03/20 00:00 36.5 86 19 120/56 (77) 93 Nasal Cannula 2.00 12/02/20 20:59 Nasal Cannula 2.00 12/02/20 19:35 36.2 87 18 133/64 (87) 93 Nasal Cannula 2.00 12/02/20 19:02 95 Nasal Cannula 2.00 12/02/20 16:29 36.6 91 18 135/64 (87) 93 Nasal Cannula 2.00 12/02/20 14:27 90 Nasal Cannula 2.00 l I & O 12/03/20 06:59 Intake Total 1480 ml Output Total 2800 ml Balance -1320 ml Capillary Refill : Less Than 3 Seconds General Appearance: No Apparent Distress HEENT: PERRL/EOMI Neck: Full Range of Motion Respiratory: Chest Non Tender, Wheezing Cardiovascular: Regular Rate, Rhythm Gastrointestinal: normal bowel sounds, soft Extremity: Normal Capillary Refill Neurologic/Psychiatric: Alert, Oriented x3 Skin: Normal Color Lymphatic: No Adenopathy Results Lab Laboratory Tests 12/03/20 06:15: White Blood Count 5.2, Red Blood Count 2.98L, Hemoglobin 8.7L, Hematocrit 28L, Mean Corpuscular Volume 92, Mean Corpuscular Hemoglobin 29, Mean Corpuscular Hemoglobin Concent 32, Red Cell Distribution Width 14.7H, Platelet Count 153, Mean Platelet Volume 10.3, Immature Granulocyte % (Auto) 1, Neutrophils (%) (Auto) 46, Lymphocytes (%) (Auto) 40, Monocytes (%) (Auto) 11, Eosinophils (%) (Auto) 2, Basophils (%) (Auto) 0, Neutrophils # (Auto) 2.4, Lymphocytes # (Auto) 2.1, Monocytes # (Auto) 0.6, Eosinophils # (Auto) 0.1, Basophils # (Auto) 0.0, Immature Granulocyte # (Auto) 0.0, Sodium Level 131L, Potassium Level 4.0, Chloride Level 99, Carbon Dioxide Level 24, Anion Gap 8, Blood Urea Nitrogen 14, Creatinine 0.74, Estimat Glomerular Filtration Rate > 60, BUN/Creatinine Ratio 19, Glucose Level 116H, Calcium Level 7.8L, Corrected Calcium 9.3, Total Bilirubin 0.3, Aspartate Amino Transf (AST/SGOT) 20, Alanine Aminotransferase (ALT/SGPT) 16, Alkaline Phosphatase 205H, Total Protein 4.9L, Albumin 2.1L Microbiology 11/16/20 MRSA Screen - Final, Complete MRSA not isolated 11/15/20 Gram Stain - Final, Resulted 11/15/20 Anaerobic Culture - Final, Resulted No anaerobes isolated 11/15/20 Surgical Culture - Final, Resulted Bobbi glabrata Bobbi species 11/15/20 Fungal Culture 1 - Preliminary, Resulted Bobbi glabrata Bobbi species Assessment/Plan Assessment/Plan Assess & Plan/Chief Complaint s/p extended right hemicolectomy, end ileostomy, mucous fistula, revision ileostomy, drainage intraabd abscess and VAC placement. will change vac about every 5 days. start a carbapenem. cont TPN cont respiratory support and diuresis. advance to reg diet. definitive abd closure with biologic mesh on wednesday(12/04), NPO after 0200(monday 12/04). Clinical Quality Measures DVT/VTE Risk/Contraindication: Risk Factor Score Per Nursin MICHAEL XIONG MD Dec 03, 2020 13:36
--- NOTE | 2020-12-03 13:37 | Progress Note-Pre Operative ---
Pre-Operative Progress Note H&P Reviewed The H&P was reviewed, patient examined and no changes noted. Date Seen by Provider: Dec 03, 2020 Time Seen by Provider: 14:00 Date H&P Reviewed: Dec 03, 2020 Time H&P Reviewed: 14:00 Pre-Operative Diagnosis: s/p open colectomy with wound dehiscence and open abdomen MICHAEL XIONG MD Dec 03, 2020 13:37
--- NOTE | 2020-12-03 14:54 | Occupational Ther Daily Note ---
OT Current Status-Daily Note Subjective No pain reported. Appearance Pt. in bed. Alert. Agrees to work with OT. Mental Status/Objective Patient Orientation: Person, Place Attachments: Oxygen ADL-Treatment Therapy Code Descriptions/Definitions Functional [place] Measure: 0=Not Assessed/NA 4=Minimal Assistance 1=Total Assistance 5=Supervision or Setup 2=Maximal Assistance 6=Modified [place] 3=Moderate Assistance 7=Complete IndependenceSCALE: Activities may be completed with or without assistive devices. 2-Mwntkycnbh-jbmbtqz completes the activity by him/herself with no assistance from a helper. 5-Set-up or Clean-up Assistance-helper sets up or cleans up; patient completes activity. [place] assists only prior to or following the activity. 4-Supervision or Touching Assistance-helper provides verbal cues and/or touching/steadying and/or contact guard assistance as patient completes activity. Assistance may be provided throughout the activity or intermittently. 3-Partial/Moderate Assistance-helper does LESS THAN HALF the effort. [place] lifts, holds or supports trunk or limbs, but provides less than half the effort. 2-Substantial/Maximal Assistance-helper does MORE THAN HALF the effort. [place] lifts or holds trunk or limbs and provides more than half the effort. 7-Qjbcqazfd-mytqet does ALL the effort. Patient does none of the effort to complete the activity. Or, the assistance of 2 or more helpers is required for the patient to complete the activity. If activity was not attempted, code reason: 7-Patient Refused. 9-Not Applicable-not attempted and the patient did not perform the activity before the current illness, exacerbation or injury. 10-Not Attempted due to Environmental Limitations-(lack of equipment, weather restraints, etc.). 88-Not Attempted due to Medical Conditions or Safety Concerns. Other Treatment Pt. transfers supine-sit with min assist. At beginning of treatment, pt. does not think she will be able to transfer to side of bed, and asks OT to get a second person. OT encourages pt. to just see if she is able to move her legs, and pt. is able to move to side. Pt. sits at side of bed, and would like to transfer to reclining chair. Chair is placed, and pt. transfers with max assist with sit-stand and pivot to chair. All needs are met. OT washes pt. hair using dry shampoo cap. Pt. states that it feels good. Pt. able to brush her own hair. Pt. reports feeling comfortable. All needs met up in chair. Education OT Patient Education: Correct positioning, Modified ADL techniques, Progress toward Goal/Update tx plan, Purpose of tx/functional activities, Reviewed precautions, Rehab process, Transfer techniques Teaching Recipient: Patient Teaching Methods: Demonstration, Discussion Response to Teaching: Verbalize Understanding, Return Demonstration OT Short Term Goals Short Term Goals Time Frame: Dec 03, 2020 Eatin Oral hygiene: 3 Toileting hygiene: 3 Shower/bathe self: 3 Upper body dressin Lower body dressin Putting on/taking off footwear: 3 OT Prison Goals Landscaping Specialist Goals Time Frame: Dec 17, 2020 Eating (QC): 6 Oral Hygiene (QC): 6 Toileting Hygiene (QC): 6 Shower/Bathe Self (QC): 4 Upper Body Dressing (QC): 5 Lower Body Dressing (QC): 4 On/Off Footwear (QC): 4 Additional Goals: 1-Demonstrate ADL Tasks, 2-Verbalize Understanding, 3- ImproveStrength/[place] 1=Demonstrate adherence to instructed precautions during ADL tasks. 2=Patient will verbalize/demonstrate understanding of assistive devices/modifications for ADL. 3=Patient will improve strength/tolerance for activity to enable patient to perform ADL's. OT Education/Plan Problem List/Assessment Assessment: Decreased Activ Tolerance, Dependent Transfers, Impaired Funct Balance, Impaired I ADL's, Impaired Self-Care Skills Discharge Recommendations Plan/Recommendations: Continue POC Therapy Discharge Recommendati: Post Acute OT Treatment Plan/Plan of Care Treatment,Training & Education: Yes Patient would benefit from OT for education, treatment and training to promote independence in ADL's, mobility, safety and/or upper extremity function for ADL's. Plan of Care: ADL Retraining, Functional Mobility, UE Funct Exercise/Act Treatment Duration: Dec 17, 2020 Frequency: 5 times per week Estimated Hrs Per Day: .25 hour per day Agreement: Yes Rehab Potential: Fair Time/GCodes Start Time: 13:30 Stop Time: 14:00 Total Time Billed (hr/min): 30 Billed Treatment Time 1, FA x 15minutes, ADL x 15minutes KOKI STOKES OT Dec 03, 2020 14:54
--- NOTE | 2020-12-03 15:12 | Physical Therapy Daily Note ---
PT Daily Note-Current Subjective Patient agrees to PT. Mental Status Patient Orientation: Person, Time, Situation Attachments: Colostomy/Ileostomy, Oxygen, Lam Catheter wound vac Transfers SCALE: Activities may be completed with or without assistive devices. 4-Kazvuagcze-lkgyyoc completes the activity by him/herself with no assistance from a helper. 5-Set-up or Clean-up Assistance-helper sets up or cleans up; patient completes activity. Jackson assists only prior to or following the activity. 4-Supervision or Touching Assistance-helper provides verbal cues and/or touching/steadying and/or contact guard assistance as patient completes activity. Assistance may be provided throughout the activity or intermittently. 3-Partial/Moderate Assistance-helper does LESS THAN HALF the effort. Jackson lifts, holds or supports trunk or limbs, but provides less than half the effort. 2-Substantial/Maximal Assistance-helper does MORE THAN HALF the effort. Jackson lifts or holds trunk or limbs and provides more than half the effort. 8-Yjaemtltg-desciv does ALL the effort. Patient does none of the effort to complete the activity. Or, the assistance of 2 or more helpers is required for the patient to complete the activity. If activity was not attempted, code reason: 7-Patient Refused. 9-Not Applicable-not attempted and the patient did not perform the activity before the current illness, exacerbation or injury. 10-Not Attempted due to Environmental Limitations-(lack of equipment, weather restraints, etc.). 88-Not Attempted due to Medical Conditions or Safety Concerns. Sit to Stand (QC): 2 (x 5 sets blocking knees) Exercises Seated Therapy Exercises: Ankle pumps, Long arc quads Seated Reps: 12 Standing: Sit to Stand (5 reps) Assessment Patient requires encouragement to participate with therapy. Patient improving slowly with treatment plan. PT Short Term Goals Short Term Goals Time Frame: Dec 07, 2020 Roll Left & Right: 3 Sit to lyin Lying to sitting on side of be: 3 Sit to stand: 3 Chair/fbw-gl-cvpix transfer: 3 PT Senior Care Goals Managing Manager Goals PT Senior Care Goals Time Frame: Dec 04, 2020 Roll Left & Right (QC): 4 Sit to Lying (QC): 3 Lying-Sitting on Side/Bed(QC): 3 Sit to Stand (QC): 3 Chair/Tbn-nu-Hzcnx Xfer(QC): 3 PT Plan Treatment/Plan Treatment Plan: Continue Plan of Care Treatment Plan: Bed Mobility, Education, Functional Activity Palak, Functional Strength, Gait, Safety, Therapeutic Exercise, Transfers Treatment Duration: Dec 04, 2020 Frequency: 6 times per week Estimated Hrs Per Day: .25 hour per day Time/GCodes Time In: 1415 Time Out: 1425 Total Billed Treatment Time: 10 Total Billed Treatment 1 visit EX 10 min ROBERT SCHWAB PT Dec 03, 2020 15:12
--- NOTE | 2020-12-03 17:11 | Progress Note - Hospitalist ---
DUANE CASTILLO MED STUDENT 12/03/20 1711: Subjective HPI/CC On Admission CC: VDRF following surgery for abscess and ileostomy ischemia HPI: This is a 75yoWF clinic patient of Dr Ba who presents to the ICU following urgent surgery following failure on IRF due to sepsis and elevated wbc. Patient was assessed to have ileostomy ischemia and abscess. Patient is currently on Cipro, Flagyl, Vanc, Kinga and Diflucan. Patient has a h/o colon cancer s/p resection 2 weeks ago and I was consulted for AECOPD due to long smoking hx and severe anemia s/p transfusion and resolution of hyponatremia. She had a complication of torsion requiring diverting ileostomy and she became strong enough to go to IRF but only lasted 2 days before she decompensated. Cur rently she remains intubated and critically ill. Subjective/Events-last exam The patient reports doing better. She denies pain but had slight tenderness. She states she's seeing surgery tomorrow. She has a colostomy, ileostomy, and catheter. She denies nausea or SOB. She is tolerating a PO diet well. She denies walking but is making progress with PT/OT. Hgb is stable at 8.7. Review of Systems Cardiovascular: No: Chest Pain Gastrointestinal: No: Nausea Objective Exam Vital Signs Vital Signs Date Time Temp Pulse Resp B/P (MAP) Pulse Ox O2 Delivery O2 Flow Rate FiO2 12/03/20 15:39 36.7 100 20 131/63 (85) 96 Nasal Cannula 2.00 11/28/20 21:48 40 Capillary Refill : Less Than 3 Seconds General Appearance: No Apparent Distress Respiratory: Lungs Clear, Normal Breath Sounds, No Accessory Muscle Use, No Respiratory Distress Cardiovascular: Regular Rate, Rhythm Gastrointestinal: Soft, Tenderness Neurologic/Psychiatric: Alert, Normal Mood/Affect Skin: Normal Color, Warm/Dry Results/Procedures Lab Laboratory Tests 12/03/20 06:15 Patient resulted labs reviewed. Assessment/Plan Assessment and Plan Assess & Plan/Chief Complaint 1. acute respiratory distress s/p surgery - followed by Dr. Moreno 2. s/p surgery VAC replaced 3. aggittation/aggressive bx - haloperidol and pain control 4. HTN - toprol, lisinopril, amlodipine 5. anemia - blood transfusions 6. Hx of COPD, anemia, smoking 7. sinus tachycardia - followed by cardiology Clinical Quality Measures DVT/VTE Risk/Contraindication: Risk Factor Score Per Nursin GENNA MARTÍNEZ DO 12/04/20 0615: Subjective HPI/CC On Admission Date Seen by Provider: Dec 04, 2020 Time Seen by Provider: 10:00 Subjective/Events-last exam Pt doing pretty well Going to go surgery for the wound vac change tomorrow Picc line will be placed for access Hgb 8.3 Overall feels pretty good Objective Exam General Appearance: No Apparent Distress, WD/WN, Chronically ill Respiratory: Lungs Clear Cardiovascular: Regular Rate, Rhythm Neurologic/Psychiatric: Alert, Oriented x3, No Motor/Sensory Deficits, Normal Mood/Affect Assessment/Plan Assessment and Plan Assess & Plan/Chief Complaint Monitor labs OR tomorrow for wound vac change Monitor lungs Supervisory-Addendum Brief Verification & Attestation Participated in pt care: history, MDM, physical Personally performed: exam, history, MDM, supervision of care Care discussed with: Medical Student Procedures: n/a Results interpretation: Verified all documentation Verification and Attestation of Medical Student E/M Service A medical student performed and documented this service in my presence. I reviewed and verified all information documented by the medical student and made modifications to such information, when appropriate. I personally performed the physical exam and medical decision making. Genna Martínez, Dec 04, 2020,06:15 DUANE CASTILLO MED STUDENT Dec 03, 2020 17:11 GENNA MARTÍNEZ DO Dec 04, 2020 06:15
--- NOTE | 2020-12-03 17:48 | Progress Note - Cardiology ---
Cardiology SOAP Progress Note Subjective: No new symptoms Objective: I&O/Vital Signs 12/03/20 12/03/20 12/03/20 12/03/20 08:00 08:00 09:22 12:00 Temp 35.6 36.0 Pulse 91 92 Resp 16 20 B/P (MAP) 132/63 (86) 116/56 (76) Pulse Ox 94 96 95 95 O2 Delivery Nasal Cannula Nasal Cannula O2 Flow Rate 2.00 2.00 12/03/20 12/03/20 14:20 15:39 Temp 36.7 Pulse 100 Resp 20 B/P (MAP) 131/63 (85) Pulse Ox 92 96 O2 Delivery Nasal Cannula Nasal Cannula O2 Flow Rate 2.00 2.00 12/03/20 00:00 Intake Total 1280 ml Output Total 1850 ml Balance -570 ml Constitutional: AAO x 3 Respiratory: No accessory muscle use; other (good, bilateral air entry, diminished at the bases) Cardiovascular: regular rate-rhythm, S1 and S2, systolic murmur (soft JOSIE at card base) Gastrointestional: other (recently post-op, we did not attempt palpation) Extremities: no lower extremity edema bilateral Neurologic/Psychiatric: oriented x 3 Skin: No rash on exposed areas, No ulcerations on exposed areas Results/Procedures: Labs Laboratory Tests 12/03/20 06:15: White Blood Count 5.2, Red Blood Count 2.98L, Hemoglobin 8.7L, Hematocrit 28L, Mean Corpuscular Volume 92, Mean Corpuscular Hemoglobin 29, Mean Corpuscular Hemoglobin Concent 32, Red Cell Distribution Width 14.7H, Platelet Count 153, Mean Platelet Volume 10.3, Immature Granulocyte % (Auto) 1, Neutrophils (%) (Auto) 46, Lymphocytes (%) (Auto) 40, Monocytes (%) (Auto) 11, Eosinophils (%) (Auto) 2, Basophils (%) (Auto) 0, Neutrophils # (Auto) 2.4, Lymphocytes # (Auto) 2.1, Monocytes # (Auto) 0.6, Eosinophils # (Auto) 0.1, Basophils # (Auto) 0.0, Immature Granulocyte # (Auto) 0.0, Sodium Level 131L, Potassium Level 4.0, Chloride Level 99, Carbon Dioxide Level 24, Anion Gap 8, Blood Urea Nitrogen 14, Creatinine 0.74, Estimat Glomerular Filtration Rate > 60, BUN/Creatinine Ratio 19, Glucose Level 116H, Calcium Level 7.8L, Corrected Calcium 9.3, Total Bilirubin 0.3, Aspartate Amino Transf (AST/SGOT) 20, Alanine Aminotransferase (ALT/SGPT) 16, Alkaline Phosphatase 205H, Total Protein 4.9L, Albumin 2.1L Microbiology 11/16/20 MRSA Screen - Final, Complete MRSA not isolated 11/15/20 Gram Stain - Final, Resulted 11/15/20 Anaerobic Culture - Final, Resulted No anaerobes isolated 11/15/20 Surgical Culture - Final, Resulted Bobbi glabrata Bobbi species 11/15/20 Fungal Culture 1 - Preliminary, Resulted Bobbi glabrata Bobbi species Laboratory Tests 12/02/20 04:45 12/03/20 06:15 A/P: Assessment: S/p extended right hemicolectomy, end ileostomy, revision ileostomy, drainage of intraabdominal abscess and VAC placement Ac resp failure following above surgeries COPD H/o hypertension and hyperlipidemia H/o tobacco use Plan: * Continue current regimen * Monitor lab * Replace electrolytes as indicated JENNIFER JUAREZ MD FACP [facility] CCDS Dec 03, 2020 17:48
[2020-12-03] MEDS: MELATONIN 3 MG TABLET PO PRN (21:19)
[2020-12-03] MEDS: ENOXAPARIN 40 MG/0.4 ML (LOVENOX) SYR SC SCH (21:20)
[2020-12-04] VITALS (13 sets, daily range): BP systolic 97–154; BP diastolic 56–67
[2020-12-04] MEDS: HYDROmorphone 2 MG/ML VIAL (DILAUDID) IV PRN ×2 (03:21→06:40)
[2020-12-04 05:49] LABS: HEMOGLOBIN 8.4 g/dL (11.5-16.0); WHITE BLOOD COUNT 4.9 10^3/uL (4.3-11.0)
[2020-12-04 05:59] LABS: ALBUMIN 2.1 GM/DL (3.2-4.5); CHLORIDE 99 MMOL/L (98-107); POTASSIUM 4.2 MMOL/L (3.6-5.0); SODIUM 130 MMOL/L (135-145)
[2020-12-04 06:00] LABS: CALCIUM 7.9 MG/DL (8.5-10.1)
[2020-12-04 06:01] LABS: GLUCOSE 111 MG/DL (70-105)
[2020-12-04 06:02] LABS: CARBON DIOXIDE 24 MMOL/L (21-32)
[2020-12-04 06:03] LABS: BILIRUBIN,TOTAL 0.3 MG/DL (0.1-1.0)
[2020-12-04 06:05] LABS: ALKALINE PHOSPHATASE 219 U/L (40-136); CREATININE SERUM 0.71 MG/DL (0.60-1.30); GFR ESTIMATED > 60
[2020-12-04 06:06] LABS: BUN/CREATININE RATIO 17
[2020-12-04 06:08] LABS: ALANINE AMINOTRANSFERASE 18 U/L (0-55)
--- NOTE | 2020-12-04 06:15 | Pulmonary Progress Note ---
Subjective Time Seen by a Provider: 06:13 Sepsis Event Evaluation Height, Weight, BMI Height: '" Weight: lbs. oz. kg; 34.48 BMI Method: Exam Exam Vital Signs Date Time Temp Pulse Resp B/P (MAP) Pulse Ox O2 Delivery O2 Flow Rate FiO2 12/04/20 04:00 36.1 91 22 97/56 (70) 94 Nasal Cannula 2.00 12/04/20 00:00 36.0 95 22 116/56 (76) 94 Nasal Cannula 2.00 12/03/20 20:57 94 Nasal Cannula 2.00 12/03/20 20:41 36.1 99 22 115/56 (75) 94 Nasal Cannula 2.00 12/03/20 19:31 92 Nasal Cannula 2.00 12/03/20 15:39 36.7 100 20 131/63 (85) 96 Nasal Cannula 2.00 12/03/20 14:20 92 Nasal Cannula 2.00 12/03/20 12:00 36.0 92 20 116/56 (76) 95 12/03/20 09:22 95 Nasal Cannula 2.00 12/03/20 08:00 96 Nasal Cannula 2.00 12/03/20 08:00 35.6 91 16 132/63 (86) 94 I & O 12/04/20 07:00 Intake Total 1560 ml Output Total 2942 ml Balance -1382 ml Height & Weight Height: '" Weight: lbs. oz. kg; 34.48 BMI Method: General Appearance: No Apparent Distress HEENT: PERRL/EOMI Neck: Full Range of Motion Respiratory: Lungs Clear, Normal Breath Sounds, No Accessory Muscle Use, No Respiratory Distress Cardiovascular: Regular Rate, Rhythm Gastrointestinal: normal bowel sounds, soft Extremity: Normal Capillary Refill Neurologic/Psychiatric: Alert, Normal Mood/Affect Skin: Normal Color, Warm/Dry Lymphatic: No Adenopathy Results Lab Laboratory Tests 12/03/20 06:15 12/04/20 05:35 Assessment/Plan Assessment/Plan Hypoxia -Continue to titrate oxygen down Sepsis with abdominal abscess S/p multiple surgeries --Surgery is following - S/P Merrem,and Eraxis Agitation/aggressive behavior -Haldol PRN -Pain control HTN -Lopressor, Lisinopril, Norvasc -Hydralazine PRN Anemia -monitor S/p hemicolectomy secondary to Colon cancer then ileostomy secondary to torsion. repeat surgery secondary to persistent intraabdominal sepsis. Debility HX of COPD with oxygen dependance at home Tobacco dependance anemia s/p 4 units of PRBC GIOVANNA BORREGO DO Dec 04, 2020 06:15
[2020-12-04] MEDS: SUCRALFATE 1 GM (CARAFATE) TAB PO SCH ×4 (06:35→21:18)
[2020-12-04] MEDS: RT-ALBUTEROL/IPRATROPIUM 3 ML (DUONEB) VIAL INH SCH ×3 (07:25→19:15)
[2020-12-04] MEDS: PATIENT MAY USE OWN MED,SINGLE MED INH SCH (07:32)
[2020-12-04] MEDS: METOCLOPRAMIDE INJ 10 MG/2 ML (REGLAN) IVP SCH ×2 (09:00→21:18)
[2020-12-04] MEDS: meTOprolol TARTRATE 25 MG (LOPRESSOR) TABLET PO SCH ×2 (09:00→21:19)
[2020-12-04] MEDS: PANTOPRAZOLE 40 MG (PROTONIX) VIAL IV SCH ×2 (09:00→21:18)
[2020-12-04] MEDS: amLODIPine 10 MG (NORVASC) TAB PO SCH (09:00)
[2020-12-04] MEDS: NICOTINE 14 MG (NICODERM) PATCH TD SCH (09:01)
[2020-12-04] MEDS: NICOTINE PATCH REMOVAL TP SCH (09:01)
--- NOTE | 2020-12-04 09:56 | Physical Therapy Progress Note ---
Therapy Progress Note Nursing reports patient is going to surgery, will check back this afternoon or in the morning. RAMOS POLLOCK PT Dec 04, 2020 09:56
[2020-12-04] MEDS ORDERED: proPOfol 200 MG/20 ML (DIPRIVAN) VIAL IV ONE (10:53)
[2020-12-04] MEDS ORDERED: LIDOCAINE PF 2% 5 ML (XYLOCAINE) VIAL ONE (10:54)
[2020-12-04] MEDS ORDERED: fentaNYL INJECTION 100 MCG/2 ML AMP ONE (10:55)
[2020-12-04] MEDS ORDERED: ROCURONIUM 10 MG/ML 5 ML SYRINGE IV ONE (10:59)
[2020-12-04] MEDS ORDERED: ONDANSETRON 4 MG/2 ML (SDV) Z0FRAN ONE (10:59)
[2020-12-04] MEDS ORDERED: SEVOFLURANE (ULTANE) 15 ML INHAL SOLN ONE ×4 (10:59→12:26)
--- NOTE | 2020-12-04 11:05 | Progress Note - Cardiology ---
Cardiology SOAP Progress Note Subjective: Sitting up in bed No c/o CP or SOB Objective: I&O/Vital Signs 12/05/20 12/05/20 12/05/20 12/05/20 00:38 04:44 07:05 08:00 Temp 36.8 36.7 Pulse 94 92 Resp 18 20 B/P (MAP) 111/57 (75) 116/58 (77) Pulse Ox 95 96 92 O2 Delivery Nasal Cannula Nasal Cannula Nasal Cannula Nasal Cannula O2 Flow Rate 3.00 3.00 2.00 2.00 12/05/20 12/05/20 08:00 10:14 Temp 36.9 Pulse 94 Resp 18 B/P (MAP) 128/60 (82) Pulse Ox 96 99 O2 Delivery Nasal Cannula Nasal Cannula O2 Flow Rate 3.00 3.00 12/05/20 00:00 Intake Total 560 ml Output Total 400 ml Balance 160 ml Constitutional: AAO x 3 Respiratory: No accessory muscle use; other (good, bilateral air entry, diminished at the bases) Cardiovascular: regular rate-rhythm, S1 and S2, systolic murmur (soft JOSIE at card base) Gastrointestional: other (recently post-op, we did not attempt palpation; wound vac in place) Extremities: no lower extremity edema bilateral Neurologic/Psychiatric: oriented x 3 Skin: No rash on exposed areas, No ulcerations on exposed areas Results/Procedures: Labs Laboratory Tests 12/05/20 04:55: White Blood Count 5.7, Red Blood Count 2.85L, Hemoglobin 8.4L, Hematocrit 26L, Mean Corpuscular Volume 91, Mean Corpuscular Hemoglobin 30, Mean Corpuscular Hemoglobin Concent 32, Red Cell Distribution Width 14.6H, Platelet Count 220, Mean Platelet Volume 9.8, Immature Granulocyte % (Auto) 1, Neutrophils (%) (Auto) 51, Lymphocytes (%) (Auto) 36, Monocytes (%) (Auto) 11, Eosinophils (%) (Auto) 1, Basophils (%) (Auto) 0, Neutrophils # (Auto) 2.9, Lymphocytes # (Auto) 2.0, Monocytes # (Auto) 0.6, Eosinophils # (Auto) 0.1, Basophils # (Auto) 0.0, Immature Granulocyte # (Auto) 0.0, Sodium Level 129L, Potassium Level 4.4, Chloride Level 97L, Carbon Dioxide Level 23, Anion Gap 9, Blood Urea Nitrogen 12, Creatinine 0.74, Estimat Glomerular Filtration Rate > 60, BUN/Creatinine Ratio 16, Glucose Level 126H, Calcium Level 7.8L, Corrected Calcium 9.3, Total Bilirubin 0.3, Aspartate Amino Transf (AST/SGOT) 25, Alanine Aminotransferase (ALT/SGPT) 20, Alkaline Phosphatase 211H, B-Type Natriuretic Peptide 30.5, Total Protein 5.2L, Albumin 2.1L Microbiology 11/16/20 MRSA Screen - Final, Complete MRSA not isolated 11/15/20 Gram Stain - Final, Resulted 11/15/20 Anaerobic Culture - Final, Resulted No anaerobes isolated 11/15/20 Surgical Culture - Final, Resulted Bobbi glabrata Bobbi species 11/15/20 Fungal Culture 1 - Preliminary, Resulted Bobbi glabrata Bobbi species A/P: Assessment: S/p extended right hemicolectomy, end ileostomy, revision ileostomy, drainage of intraabdominal abscess and VAC placement Ac resp failure following above surgeries COPD H/o hypertension and hyperlipidemia H/o tobacco use Plan: * Continue current regimen * Monitor lab * Replace electrolytes as indicated * She is going back to the OR today MONTY MYERS Dec 04, 2020 11:05
[2020-12-04] MEDS ORDERED: LACTATED RINGERS 1,000 ML IV PRN (11:15)
[2020-12-04] MEDS ORDERED: LIDOCAINE/EPI 1%-1:100,000 (XYLOCAINE) 50 ML ONE (11:18)
--- NOTE | 2020-12-04 11:29 | Progress Note - Hospitalist ---
DUANE CASTILLO MED STUDENT 12/04/20 1129: Subjective HPI/CC On Admission CC: VDRF following surgery for abscess and ileostomy ischemia HPI: This is a 75yoWF clinic patient of Dr Ba who presents to the ICU following urgent surgery following failure on IRF due to sepsis and elevated wbc. Patient was assessed to have ileostomy ischemia and abscess. Patient is currently on Cipro, Flagyl, Vanc, Kinga and Diflucan. Patient has a h/o colon cancer s/p resection 2 weeks ago and I was consulted for AECOPD due to long smoking hx and severe anemia s/p transfusion and resolution of hyponatremia. She had a complication of torsion requiring diverting ileostomy and she became strong enough to go to IRF but only lasted 2 days before she decompensated. Cu rrently she remains intubated and critically ill. Subjective/Events-last exam Patient states she's doing better and denies any pain or symptoms. She is NPO for surgery today to close her abdomen and change her wound VAC. She had her colostomy and ileostomy bags changed yesterday. She has a catheter. She denies ambulating due to feeling weak. She believes she is improving on PT. Hgb is 8.4. Na is 130. Review of Systems HEENT: No Head Aches Gastrointestinal: No: Nausea, Abdominal Pain Objective Exam Vital Signs Vital Signs Date Time Temp Pulse Resp B/P (MAP) Pulse Ox O2 Delivery O2 Flow Rate FiO2 12/04/20 09:00 94 Nasal Cannula 2.00 12/04/20 08:00 36.0 96 18 126/59 (81) 11/28/20 21:48 40 Capillary Refill : Less Than 3 Seconds General Appearance: No Apparent Distress, WD/WN Respiratory: Chest Non Tender, Lungs Clear, Normal Breath Sounds, No Accessory Muscle Use, No Respiratory Distress Cardiovascular: Regular Rate, Rhythm Gastrointestinal: Non Tender, Soft Neurologic/Psychiatric: Alert, Oriented x3 Results/Procedures Lab Laboratory Tests 12/04/20 05:35 Patient resulted labs reviewed. Assessment/Plan Assessment and Plan Assess & Plan/Chief Complaint 1. acute respiratory distress s/p surgery - followed by Dr. Moreno 2. s/p surgery VAC replaced - abdominal closure and VAC replacement. followed by surgery. 3. aggittation/aggressive bx - haloperidol and pain control 4. HTN - toprol, lisinopril, amlodipine 5. anemia - blood transfusions 6. Hx of COPD, anemia, smoking 7. sinus tachycardia - followed by cardiology Diagnosis/Problems Diagnosis/Problems (1) COPD (chronic obstructive pulmonary disease) (2) Hyponatremia (3) Ileostomy in place (4) Anemia due to acute blood loss (5) Ileus following gastrointestinal surgery Clinical Quality Measures DVT/VTE Risk/Contraindication: Risk Factor Score Per Nursin GENNA MARTÍNEZ DO 12/05/20 0549: Subjective HPI/CC On Admission Date Seen by Provider: Dec 04, 2020 Time Seen by Provider: 10:00 Subjective/Events-last exam Pt doing pretty well Heading to the OR today for closure of the abdominal wound Hgb 8.4 Sodium 130 No pain is reported Review of Systems General: Fatigue Objective Exam General Appearance: No Apparent Distress, WD/WN, Chronically ill Respiratory: Lungs Clear Cardiovascular: Regular Rate, Rhythm Assessment/Plan Assessment and Plan Assess & Plan/Chief Complaint OR today Supervisory-Addendum Brief Verification & Attestation Participated in pt care: history, MDM, physical Personally performed: exam, history, MDM, supervision of care Care discussed with: Medical Student Procedures: n/a Results interpretation: Verified all documentation Verification and Attestation of Medical Student E/M Service A medical student performed and documented this service in my presence. I reviewed and verified all information documented by the medical student and made modifications to such information, when appropriate. I personally performed the physical exam and medical decision making. Genna Martínez, Dec 05, 2020,05:49 DUANE CASTILLO MED STUDENT Dec 04, 2020 11:29 GENNA MARTÍNEZ DO Dec 05, 2020 05:49
[2020-12-04] MEDS ORDERED: GLYCOPYRROLATE 0.2 MG/ML (ROBINUL) 2 ML VIAL ONE (12:22)
[2020-12-04] MEDS ORDERED: NEOSTIGMINE 3 MG/3 ML VIAL ONE (12:22)
--- NOTE | 2020-12-04 12:28 | Progress Note-Post Operative ---
Post-Operative Progess Note Surgeon (s)/Stock Broker (s) Surgeon MICHAEL XIONG MD Stock Broker: padmaja woods MANUFACTURER'S REPRESENTATIVE Pre-Operative Diagnosis s/p open colectomy with wound dehiscence and open abdomen Post-Operative Diagnosis same Procedure & Operative Findings Date of Procedure 12/04/20 Procedure Performed/Findings closure open abdomen with biologic mesh and wound vac placement. Anesthesia Type get Estimated Blood Loss Estimated blood loss (mL): minimal Specimens/Packing Specimens Removed none MICHAEL XIONG MD Dec 04, 2020 12:28
[2020-12-04] MEDS ORDERED: PHENYLEPHRINE 100 MCG/ML 10 ML (ANESTHESIA) SYR ONE (12:46)
[2020-12-04] MEDS: lisINopril 20 MG (PRINIVIL) TABLET PO SCH (13:05)
--- NOTE | 2020-12-04 13:27 | Occ Therapy Progress Note ---
Therapy Progress Note OT attempted treatment with pt. Pt. getting ready to leave for surgery at some point this a.m. Pt. has already had surgical bath per her. Will hold treatment this date due to surgical intervention. [id number] 1, visit KOKI STOKES OT Dec 04, 2020 13:27
--- NOTE | 2020-12-04 13:43 | Anesthesia-General Post-Op ---
General Patient Condition Mental Status/LOC: Same as Preop Cardiovascular: Satisfactory Nausea/Vomiting: Absent Respiratory: Satisfactory Pain: Controlled Complications: Absent Post Op Complications Complications None Follow Up Care/Instructions Patient Instructions None needed. Anesthesia/Patient Condition Patient Condition Patient is doing well, no complaints, stable vital signs, no apparent adverse anesthesia problems. No complications reported per nursing. D/C home per [facility] Criteria: LAURY Alejo CRNA Dec 04, 2020 13:43
--- NOTE | 2020-12-04 13:46 | Physical Therapy Progress Note ---
Therapy Progress Note Patient got back to her room from surgery early afternoon. Will need new orders to continue tx with patient since they had surgery, nurse notified. RAMOS POLLOCK PT Dec 04, 2020 13:46
--- NOTE | 2020-12-04 18:24 | Progress Note - Cardiology ---
Cardiology SOAP Progress Note Subjective: Gen malaise No n/v/d Gen weakness No focal weakness No cp or palp or syncope Objective: I&O/Vital Signs 12/04/20 12/04/20 12/04/20 12/04/20 07:25 08:00 09:00 12:41 Temp 36.0 Pulse 96 Resp 18 B/P (MAP) 126/59 (81) Pulse Ox 88 94 94 O2 Delivery Nasal Cannula Nasal Cannula Nasal Cannula Nasal Cannula O2 Flow Rate 2.00 2.00 2.00 4 12/04/20 12/04/20 12/04/20 12/04/20 12:41 12:45 12:50 13:00 Temp 36.3 Resp 20 20 20 B/P (MAP) 118/59 (78) 126/65 (85) 126/64 (84) Pulse Ox 94 94 94 O2 Delivery Nasal Cannula Nasal Cannula Nasal Cannula Nasal Cannula O2 Flow Rate 4 4 4 4 12/04/20 12/04/20 12/04/20 12/04/20 13:00 13:10 13:15 13:25 Temp 36.3 Resp 20 20 B/P (MAP) 128/62 (84) 129/67 (87) Pulse Ox 94 94 O2 Delivery Nasal Cannula Nasal Cannula Nasal Cannula Nasal Cannula O2 Flow Rate 4 4 4 4 12/04/20 12/04/20 12/04/20 12/04/20 13:25 13:35 14:20 16:00 Temp 36.2 36.0 Pulse 90 96 Resp 16 16 B/P (MAP) 121/57 (78) 139/67 (91) Pulse Ox 92 92 94 O2 Delivery Nasal Cannula Nasal Cannula Nasal Cannula Nasal Cannula O2 Flow Rate 4 4.00 2.00 4.00 12/04/20 00:00 Intake Total 1260 ml Output Total 2292 ml Balance -1032 ml Constitutional: AAO x 3 Respiratory: No accessory muscle use; other (good, bilateral air entry, diminished at the bases) Cardiovascular: regular rate-rhythm, S1 and S2, systolic murmur (soft JOSIE at card base) Gastrointestional: other (recently post-op, we did not attempt palpation; wound vac in place) Extremities: no lower extremity edema bilateral Neurologic/Psychiatric: oriented x 3 Skin: No rash on exposed areas, No ulcerations on exposed areas Results/Procedures: Labs Laboratory Tests 12/04/20 05:35: White Blood Count 4.9, Red Blood Count 2.89L, Hemoglobin 8.4L, Hematocrit 26L, Mean Corpuscular Volume 91, Mean Corpuscular Hemoglobin 29, Mean Corpuscular Hemoglobin Concent 32, Red Cell Distribution Width 14.6H, Platelet Count 188, Mean Platelet Volume 10.0, Sodium Level 130L, Potassium Level 4.2, Chloride Level 99, Carbon Dioxide Level 24, Anion Gap 7, Blood Urea Nitrogen 12, Creatinine 0.71, Estimat Glomerular Filtration Rate > 60, BUN/Creatinine Ratio 17, Glucose Level 111H, Calcium Level 7.9L, Corrected Calcium 9.4, Total Bilirubin 0.3, Aspartate Amino Transf (AST/SGOT) 22, Alanine Aminotransferase (ALT/SGPT) 18, Alkaline Phosphatase 219H, Total Protein 5.0L, Albumin 2.1L Microbiology 11/16/20 MRSA Screen - Final, Complete MRSA not isolated 11/15/20 Gram Stain - Final, Resulted 11/15/20 Anaerobic Culture - Final, Resulted No anaerobes isolated 11/15/20 Surgical Culture - Final, Resulted Bobbi glabrata Bobbi species 11/15/20 Fungal Culture 1 - Preliminary, Resulted Bobbi glabrata Bobbi species Laboratory Tests 12/03/20 06:15 12/04/20 05:35 A/P: Assessment: S/p extended right hemicolectomy, end ileostomy, revision ileostomy, drainage of intraabdominal abscess and VAC placement Ac resp failure following above surgeries COPD H/o hypertension and hyperlipidemia H/o tobacco use Plan: * Continue current regimen * Monitor lab * Replace electrolytes as indicated JENNIFER JUAREZ MD FACP [facility] CCDS Dec 04, 2020 18:24
--- NOTE | 2020-12-04 19:11 | OPERATIVE REPORT ---
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 PROCEDURE PERFORMED: Reopening recent laparotomy, closure of open abdomen with Strattice porcine biologic mesh 20 x 16 cm in size, placement of wound VAC. SURGEON: Michael Xiong MD RAW STOCK MACHINE LOADER: Mick Alvarez APRN. ANESTHESIA: General endotracheal. ESTIMATED BLOOD LOSS: Minimal. FINDINGS: No ischemic bowel, mild fibrin, no exudative material. No intra-abdominal abscess, fascia, subcutaneous tissue, well perfused with no areas of necrosis or necrotic debris. DISPOSITION: The patient tolerated the procedure well. INDICATIONS: The patient is a 75-year-old female, who was found to have a large hypermetabolic mass involving the transverse colon on a PET scan. She was found to be hyponatremic and underwent a CT scan and found to have a right lower lobe nodule as well as a right renal lesion, which were of an indeterminate significance. She had a colonoscopy before; however, this was greater than 30 years ago. She underwent a colonoscopy on 10/02/2010 and was found to have a near obstructing transverse colonic lesion, which was biopsied and consistent with an adenocarcinoma. On 10/31/2020, she underwent an attempted laparoscopic extended right hemicolectomy; however, this was converted to open. She then underwent an ileocolonic anastomosis. She did well postoperatively with adequate pain control and stable vital signs; however, did not develop any significant bowel function and after 7 days a Gastrografin small bowel follow-through was performed, which did not show any contrast within the colon within 10 hours. On 11/10/2020, she underwent reopening of recent laparotomy, resection of the ileocolonic anastomosis as well as an end ileostomy and mucous fistula placement. She did well postoperatively and did not have any fever or chills and did have a small amounts of ileostomy output and was transferred to acute inpatient rehabilitation; however, again she developed abdominal distention and significant leukocytosis. On 11/15/2020, she underwent reopening of recent laparotomy, revision of the end ileostomy and placement of an open abdominal wound VAC for complete wound dehiscence as well as the intra-abdominal abscess. We then reopened the laparotomy to change the wound VAC on 11/20/2020 and then on 11/28/2020. At this time, she is doing well and tolerating a regular diet with both functional ostomies. It is now adequate for her to proceed with closure of her abdominal wall with a biologic mesh and then due to the large significant defect, we will place a standard wound VAC to allow for granulation tissue to form an over the mesh and eventual epithelialization. DESCRIPTION OF PROCEDURE: The patient was brought to the operating room, laid supine on the table. After adequate IV pain and sedative medications and general endotracheal intubation, the abdomen was prepped and draped in standard surgical fashion. Previous wound VAC was removed and the skin, subcutaneous tissue as well as fascia was intact with no necrotic debris as well as no intraabdominal abscesses or signs of infection. Only a mild amount of fibrin, no exudative material in the peritoneal cavity overlying the small bowel. We then proceeded with 4 quadrant warm saline irrigation. The defect was measured out at approximately 8 to 10 cm in size and a 20 x 16 cm Strattice porcine biologic mesh was placed into the peritoneal cavity and sutured concentrically in a transfascial manner to the fascia using 0 PDS sutures. Good hemostasis was observed. The skin and subcutaneous defect was large and a standard wound VAC was placed over this to allow for granulation tissue to form and eventual epithelialization. The patient tolerated the procedure well. We will continue with current therapies and treatment, and we will consult wound care for wound VAC change every 3 to 5 days. If she has adequate pain control, she may also be transferred to acute inpatient rehabilitation as well. Job ID: [id number] DocumentID: [id number] Dictated Date: 12/04/2020 12:37:10 Transmission Mechanic Date: 12/04/2020 19:11:31 Dictated By: MICHAEL XIONG MD
[2020-12-04] MEDS: ENOXAPARIN 40 MG/0.4 ML (LOVENOX) SYR SC SCH (21:19)
[2020-12-05] MEDS: diphenhydrAMINE 25 MG TAB (BENADRYL) PO PRN (00:14)
[2020-12-05 00:38] VITALS: BP 111/57
[2020-12-05 04:44] VITALS: BP 116/58
[2020-12-05 05:07] LABS: BASOPHILS % (AUTO) 0 % (0-10); EOSINOPHILS # (AUTO) 0.1 10^3/uL (0.0-0.3); EOSINOPHILS % (AUTO) 1 % (0-10); HEMATOCRIT 26 % (35-52); HEMOGLOBIN 8.4 g/dL (11.5-16.0); LYMPHOCYTES % (AUTO) 36 % (12-44); MEAN CORPUSCULAR HEMOGLOBIN 30 pg (25-34); MEAN CORPUSCULAR HGB CONC 32 g/dL (32-36); MEAN CORPUSCULAR VOLUME 91 fL (80-99); MEAN PLATELET VOLUME 9.8 fL (9.0-12.2); MONOCYTES # (AUTO) 0.6 10^3/uL (0.0-1.0); MONOCYTES % (AUTO) 11 % (0-12); NEUTROPHILS # (AUTO) 2.9 10^3/uL (1.8-7.8); NEUTROPHILS % (AUTO) 51 % (42-75); PLATELET COUNT 220 10^3/uL (130-400); WHITE BLOOD COUNT 5.7 10^3/uL (4.3-11.0)
[2020-12-05 05:20] LABS: ALBUMIN 2.1 GM/DL (3.2-4.5); CHLORIDE 97 MMOL/L (98-107); POTASSIUM 4.4 MMOL/L (3.6-5.0); SODIUM 129 MMOL/L (135-145)
[2020-12-05 05:21] LABS: CALCIUM 7.8 MG/DL (8.5-10.1)
[2020-12-05 05:22] LABS: GLUCOSE 126 MG/DL (70-105); TOTAL PROTEIN 5.2 GM/DL (6.4-8.2)
[2020-12-05 05:23] LABS: CARBON DIOXIDE 23 MMOL/L (21-32)
[2020-12-05 05:24] LABS: BILIRUBIN,TOTAL 0.3 MG/DL (0.1-1.0)
[2020-12-05 05:25] LABS: ALKALINE PHOSPHATASE 211 U/L (40-136)
[2020-12-05 05:26] LABS: CREATININE SERUM 0.74 MG/DL (0.60-1.30); GFR ESTIMATED > 60
[2020-12-05 05:27] LABS: BUN/CREATININE RATIO 16
[2020-12-05 05:29] LABS: ALANINE AMINOTRANSFERASE 20 U/L (0-55)
[2020-12-05] MEDS: SUCRALFATE 1 GM (CARAFATE) TAB PO SCH ×4 (05:36→20:46)
[2020-12-05] MEDS ORDERED: FUROSEMIDE 40 MG/4 ML INJ (LASIX) IVP ONE (06:15)
--- NOTE | 2020-12-05 06:15 | Pulmonary Progress Note ---
Subjective Time Seen by a Provider: 06:14 Subjective/Events-last exam No complications noted. Sepsis Event Evaluation Height, Weight, BMI Height: '" Weight: lbs. oz. kg; 34.48 BMI Method: Exam Exam Vital Signs Date Time Temp Pulse Resp B/P (MAP) Pulse Ox O2 Delivery O2 Flow Rate FiO2 12/05/20 04:44 36.7 92 20 116/58 (77) 96 Nasal Cannula 3.00 12/05/20 00:38 36.8 94 18 111/57 (75) 95 Nasal Cannula 3.00 12/04/20 21:18 94 Nasal Cannula 2.00 12/04/20 19:46 36.4 99 18 154/63 (93) 92 Nasal Cannula 3.00 12/04/20 19:16 91 Nasal Cannula 2.00 12/04/20 16:00 36.0 96 16 139/67 (91) 94 Nasal Cannula 4.00 12/04/20 14:20 92 Nasal Cannula 2.00 12/04/20 13:35 36.2 90 16 121/57 (78) 92 Nasal Cannula 4.00 12/04/20 13:25 Nasal Cannula 4 12/04/20 13:25 36.3 20 129/67 (87) 94 Nasal Cannula 4 12/04/20 13:15 Nasal Cannula 4 12/04/20 13:10 20 128/62 (84) 94 Nasal Cannula 4 12/04/20 13:00 Nasal Cannula 4 12/04/20 13:00 20 126/64 (84) 94 Nasal Cannula 4 12/04/20 12:50 20 126/65 (85) 94 Nasal Cannula 4 12/04/20 12:45 Nasal Cannula 4 12/04/20 12:41 36.3 20 118/59 (78) 94 Nasal Cannula 4 12/04/20 12:41 Nasal Cannula 4 12/04/20 09:00 94 Nasal Cannula 2.00 12/04/20 08:00 36.0 96 18 126/59 (81) 94 Nasal Cannula 2.00 12/04/20 07:25 88 Nasal Cannula 2.00 I & O 12/05/20 07:00 Intake Total 560 ml Output Total 400 ml Balance 160 ml Height & Weight Height: '" Weight: lbs. oz. kg; 34.48 BMI Method: General Appearance: No Apparent Distress, WD/WN, Chronically ill HEENT: PERRL/EOMI Neck: Full Range of Motion Respiratory: Lungs Clear Cardiovascular: Regular Rate, Rhythm Gastrointestinal: normal bowel sounds, soft Extremity: Normal Capillary Refill Neurologic/Psychiatric: Alert, Oriented x3 Skin: Normal Color, Warm/Dry Lymphatic: No Adenopathy Results Lab Laboratory Tests 12/03/20 06:15 12/04/20 05:35 12/05/20 04:55 Assessment/Plan Assessment/Plan Hypoxia -Continue to titrate oxygen down -Give 60mg of Lasix x 1 -check BNP Atelectasis -IS -Incrase SVNs to QID Sepsis with abdominal abscess S/p multiple surgeries --Surgery is following - S/P Merrem,and Eraxis Agitation/aggressive behavior -Haldol PRN -Pain control HTN -Lopressor, Lisinopril, Norvasc -Hydralazine PRN Anemia -monitor S/p hemicolectomy secondary to Colon cancer then ileostomy secondary to torsion. repeat surgery secondary to persistent intraabdominal sepsis. Debility HX of COPD with oxygen dependance at home Tobacco dependance anemia s/p 4 units of PRBC GIOVANNA BORREGO DO Dec 05, 2020 06:15
[2020-12-05] MEDS: RT-ALBUTEROL/IPRATROPIUM 3 ML (DUONEB) VIAL INH SCH ×4 (07:04→18:37)
[2020-12-05] MEDS: PATIENT MAY USE OWN MED,SINGLE MED INH SCH (07:05)
[2020-12-05] MEDS: METOCLOPRAMIDE INJ 10 MG/2 ML (REGLAN) IVP SCH ×2 (07:56→20:46)
[2020-12-05] MEDS: PANTOPRAZOLE 40 MG (PROTONIX) VIAL IV SCH ×2 (07:56→20:46)
[2020-12-05] MEDS: meTOprolol TARTRATE 25 MG (LOPRESSOR) TABLET PO SCH ×2 (07:57→20:46)
[2020-12-05] MEDS: lisINopril 20 MG (PRINIVIL) TABLET PO SCH (07:57)
[2020-12-05] MEDS: NICOTINE PATCH REMOVAL TP SCH (07:57)
[2020-12-05] MEDS: NICOTINE 14 MG (NICODERM) PATCH TD SCH (07:57)
[2020-12-05] MEDS: amLODIPine 10 MG (NORVASC) TAB PO SCH (07:57)
[2020-12-05 08:00] VITALS: BP 128/60
[2020-12-05] MEDS: fentaNYL PATCH 25 MCG (DURAGESIC) TD SCH (10:40)
[2020-12-05] MEDS: FENTANYL PATCH REMOVAL TP SCH (10:40)
--- NOTE | 2020-12-05 11:54 | Progress Note - Hospitalist ---
DUANE CASTILLO MED STUDENT 12/05/20 1154: Subjective HPI/CC On Admission CC: VDRF following surgery for abscess and ileostomy ischemia HPI: This is a 75yoWF clinic patient of Dr Ba who presents to the ICU following urgent surgery following failure on IRF due to sepsis and elevated wbc. Patient was assessed to have ileostomy ischemia and abscess. Patient is currently on Cipro, Flagyl, Vanc, Kinga and Diflucan. Patient has a h/o colon cancer s/p resection 2 weeks ago and I was consulted for AECOPD due to long smoking hx and severe anemia s/p transfusion and resolution of hyponatremia. She had a complication of torsion requiring diverting ileostomy and she became strong enough to go to IRF but only lasted 2 days before she decompensated. Cu rrently she remains intubated and critically ill. Subjective/Events-last exam She states she feels worse today from a tender and painful abdomen due to surgery. A mesh was placed and her VAC was exchanged. She still has a colostomy bag and a catheter. She complains of tiredness, weakness, and an old cough. She denies leg swelling and feels like she is breathing ok. She denies being on oxygen at home. She denies ambulating today. She hasn't been eating a lot today but feels she is ready to move down to rehab. Hgb 8.4 stable from yesterday. glucose 126 Na+ 129 Review of Systems General: Fatigue, Malaise Pulmonary: Cough (old) Gastrointestinal: Abdominal Pain Objective Exam Vital Signs Vital Signs Date Time Temp Pulse Resp B/P (MAP) Pulse Ox O2 Delivery O2 Flow Rate FiO2 12/05/20 10:14 99 Nasal Cannula 3.00 12/05/20 08:00 36.9 94 18 128/60 (82) Capillary Refill : Less Than 3 Seconds General Appearance: No Apparent Distress, WD/WN Respiratory: Chest Non Tender, Lungs Clear, Normal Breath Sounds, No Accessory Muscle Use, No Respiratory Distress Cardiovascular: Regular Rate, Rhythm Gastrointestinal: Soft, Tenderness Extremity: Non Tender; No Pedal Edema Neurologic/Psychiatric: Alert, Normal Mood/Affect Skin: Warm/Dry Results/Procedures Lab Laboratory Tests 12/05/20 04:55 Patient resulted labs reviewed. Assessment/Plan Assessment and Plan Assess & Plan/Chief Complaint 1. acute respiratory distress s/p surgery - followed by Dr. Moreno 2. s/p surgery VAC replaced - abdominal closure and VAC replaced yesterday. followed by surgery. consider moving down to rehab for PT/OT. 3. aggittation/aggressive bx - haloperidol and pain control 4. HTN - toprol, lisinopril, amlodipine 5. anemia - blood transfusions 6. Hx of COPD, anemia, smoking 7. sinus tachycardia - followed by cardiology Diagnosis/Problems Diagnosis/Problems (1) COPD (chronic obstructive pulmonary disease) (2) Hyponatremia (3) Ileostomy in place (4) Anemia due to acute blood loss (5) Ileus following gastrointestinal surgery Clinical Quality Measures DVT/VTE Risk/Contraindication: Risk Factor Score Per Nursin GENNA MARTÍNEZ DO 12/06/20 0526: Subjective HPI/CC On Admission Date Seen by Provider: Dec 06, 2020 Time Seen by Provider: 10:00 Subjective/Events-last exam Feels worse due to closure of abdominal wound No edema noted 2 L/min O2 now Catheter maintained Review of Systems General: Fatigue, Malaise Pulmonary: Dyspnea Objective Exam General Appearance: No Apparent Distress, WD/WN, Chronically ill Respiratory: Chest Non Tender, Lungs Clear, Normal Breath Sounds, No Accessory Muscle Use, No Respiratory Distress Cardiovascular: Regular Rate, Rhythm, No Edema, No Gallop, No JVD, No Murmur, Normal Peripheral Pulses Neurologic/Psychiatric: Alert, Oriented x3, No Motor/Sensory Deficits, Normal Mood/Affect Assessment/Plan Assessment and Plan Assess & Plan/Chief Complaint Wound vac management Monitor lungs PT OT IRF? Supervisory-Addendum Brief Verification & Attestation Participated in pt care: history, MDM, physical Personally performed: exam, history, MDM, supervision of care Care discussed with: Medical Student Procedures: n/a Results interpretation: Verified all documentation Verification and Attestation of Medical Student E/M Service A medical student performed and documented this service in my presence. I reviewed and verified all information documented by the medical student and made modifications to such information, when appropriate. I personally performed the physical exam and medical decision making. Genna Martínez, Dec 06, 2020,05:26 DUANE CASTILLO MED STUDENT Dec 05, 2020 11:54 GENNA MARTÍNEZ DO Dec 06, 2020 05:26
[2020-12-05 12:00] VITALS: BP 130/60
--- NOTE | 2020-12-05 13:20 | Occupational Ther Daily Note ---
OT Current Status-Daily Note Subjective No pain reported. Mental Status/Objective Patient Orientation: Person, Place ADL-Treatment Therapy Code Descriptions/Definitions Functional [place] Measure: 0=Not Assessed/NA 4=Minimal Assistance 1=Total Assistance 5=Supervision or Setup 2=Maximal Assistance 6=Modified [place] 3=Moderate Assistance 7=Complete IndependenceSCALE: Activities may be completed with or without assistive devices. 6-Qpwkknrlqw-hrxksps completes the activity by him/herself with no assistance from a helper. 5-Set-up or Clean-up Assistance-helper sets up or cleans up; patient completes activity. [place] assists only prior to or following the activity. 4-Supervision or Touching Assistance-helper provides verbal cues and/or touching/steadying and/or contact guard assistance as patient completes activity. Assistance may be provided throughout the activity or intermittently. 3-Partial/Moderate Assistance-helper does LESS THAN HALF the effort. [place] lifts, holds or supports trunk or limbs, but provides less than half the effort. 2-Substantial/Maximal Assistance-helper does MORE THAN HALF the effort. [place] lifts or holds trunk or limbs and provides more than half the effort. 3-Oqgwcbdwz-vsygqx does ALL the effort. Patient does none of the effort to complete the activity. Or, the assistance of 2 or more helpers is required for the patient to complete the activity. If activity was not attempted, code reason: 7-Patient Refused. 9-Not Applicable-not attempted and the patient did not perform the activity before the current illness, exacerbation or injury. 10-Not Attempted due to Environmental Limitations-(lack of equipment, weather restraints, etc.). 88-Not Attempted due to Medical Conditions or Safety Concerns. On/Off Footwear: 2 Pt. seen by OT/PT due to need of skilled assist x 2 for low endurance and fatigue. OT initiated ADL skills and endurance training while PT focused on standing balance and mobility training. Pt. transferred supine-sit with SBA. Requires increased time and encouragement to participate. Stood with min/mod x2 at EOB, and transferred to chair with min assist. Pt. rested and then stood several more times at chair side with mod assist. Pt. unable to tolerate standing very long. All needs met up in chair. Education OT Patient Education: Correct positioning, Modified ADL techniques, Progress toward Goal/Update tx plan, Purpose of tx/functional activities, Reviewed precautions, Rehab process, Transfer techniques Teaching Recipient: Patient Teaching Methods: Demonstration, Discussion Response to Teaching: Verbalize Understanding, Return Demonstration, Reinforcement Needed OT Short Term Goals Short Term Goals Time Frame: Dec 03, 2020 Eatin Oral hygiene: 3 Toileting hygiene: 3 Shower/bathe self: 3 Upper body dressin Lower body dressin Putting on/taking off footwear: 3 OT Wallpaper Hanger Helper Goals Wallpaper Hanger Helper Goals Time Frame: Dec 17, 2020 Eating (QC): 6 Oral Hygiene (QC): 6 Toileting Hygiene (QC): 6 Shower/Bathe Self (QC): 4 Upper Body Dressing (QC): 5 Lower Body Dressing (QC): 4 On/Off Footwear (QC): 4 Additional Goals: 1-Demonstrate ADL Tasks, 2-Verbalize Understanding, 3- ImproveStrength/[place]ak 1=Demonstrate adherence to instructed precautions during ADL tasks. 2=Patient will verbalize/demonstrate understanding of assistive devices/modifications for ADL. 3=Patient will improve strength/tolerance for activity to enable patient to perform ADL's. OT Education/Plan Problem List/Assessment Assessment: Decreased Activ Tolerance, Dependent Transfers, Impaired I ADL's, Impaired Self-Care Skills Discharge Recommendations Plan/Recommendations: Continue POC Treatment Plan/Plan of Care Treatment,Training & Education: Yes Patient would benefit from OT for education, treatment and training to promote independence in ADL's, mobility, safety and/or upper extremity function for ADL's. Plan of Care: ADL Retraining, Functional Mobility, UE Funct Exercise/Act Treatment Duration: Dec 17, 2020 Frequency: 5 times per week Estimated Hrs Per Day: .25 hour per day Agreement: Yes Rehab Potential: Fair Time/GCodes Start Time: 12:45 Stop Time: 13:02 Total Time Billed (hr/min): 17 Billed Treatment Time 1, KOKI BROWN OT Dec 05, 2020 13:20
--- NOTE | 2020-12-05 14:37 | Physical Therapy Daily Note ---
PT Daily Note-Current Subjective Patient agrees to PT/OT cotreat Mental Status Patient Orientation: Person, Time, Situation Attachments: Oxygen, Lam Catheter wound vac Transfers SCALE: Activities may be completed with or without assistive devices. 1-Kdkbiwpfyx-wnlyudr completes the activity by him/herself with no assistance from a helper. 5-Set-up or Clean-up Assistance-helper sets up or cleans up; patient completes activity. [place] assists only prior to or following the activity. 4-Supervision or Touching Assistance-helper provides verbal cues and/or touching/steadying and/or contact guard assistance as patient completes activit y. Assistance may be provided throughout the activity or intermittently. 3-Partial/Moderate Assistance-helper does LESS THAN HALF the effort. [place] lifts, holds or supports trunk or limbs, but provides less than half the effort. 2-Substantial/Maximal Assistance-helper does MORE THAN HALF the effort. [place] lifts or holds trunk or limbs and provides more than half the effort. 6-Vmwxazthh-epsvdt does ALL the effort. Patient does none of the effort to complete the activity. Or, the assistance of 2 or more helpers is required for the patient to complete the activity. If activity was not attempted, code reason: 7-Patient Refused. 9-Not Applicable-not attempted and the patient did not perform the activity before the current illness, exacerbation or injury. 10-Not Attempted due to Environmental Limitations-(lack of equipment, weather restraints, etc.). 88-Not Attempted due to Medical Conditions or Safety Concerns. Lying to Sitting/Side of Bed(Q: 4 Sit to Stand (QC): 3 (x 3 sets to FWW) Chair/Odq-yh-Sdrnp Xfer(QC): 3 Gait Training Distance: 10' Walk 10 feet (QC): 3 Gait Assistive Device: FWW shuffle gait sequence due to weakness/fatigue Exercises Seated Therapy Exercises: Ankle pumps, Long arc quads Seated Reps: 12 Assessment Patient tolerated treatment and is up in recliner with needs met. Patient continues to appear to self limit by ceasing treatment. PT to increase activity as tolerated by patient. PT Short Term Goals Short Term Goals Time Frame: Dec 07, 2020 Roll Left & Right: 3 Sit to lyin Lying to sitting on side of be: 3 Sit to stand: 3 Chair/pff-jj-sazvh transfer: 3 PT Band Saw Operator Cake Cutting Goals Band Saw Operator Cake Cutting Goals PT [facility] Goals Time Frame: Dec 04, 2020 Roll Left & Right (QC): 4 Sit to Lying (QC): 3 Lying-Sitting on Side/Bed(QC): 3 Sit to Stand (QC): 3 Chair/Ymk-aa-Mtdxy Xfer(QC): 3 PT Plan Treatment/Plan Treatment Plan: Continue Plan of Care Treatment Plan: Bed Mobility, Education, Functional Activity [place], Functional Strength, Gait, Safety, Therapeutic Exercise, Transfers Treatment Duration: Dec 04, 2020 Frequency: 6 times per week Estimated Hrs Per Day: .25 hour per day Time/GCodes Time In: 1250 Time Out: 1302 Total Billed Treatment Time: 12 Total Billed Treatment 1 visit EX 12 min ROBERT SCHWAB PT Dec 05, 2020 14:37
--- NOTE | 2020-12-05 15:06 | Progress Note ---
Subjective Date Seen by a Provider: Dec 05, 2020 Time Seen by a Provider: 15:00 Subjective/Events-last exam doing well. tolerating diet. functional ostomies. pain controlled. no f ever/chills. Objective Exam Vital Signs Date Time Temp Pulse Resp B/P (MAP) Pulse Ox O2 Delivery O2 Flow Rate FiO2 12/05/20 14:30 96 Nasal Cannula 3.00 12/05/20 12:00 36.8 94 18 130/60 (83) 97 Nasal Cannula 3.00 12/05/20 10:14 99 Nasal Cannula 3.00 12/05/20 08:00 36.9 94 18 128/60 (82) 96 Nasal Cannula 3.00 12/05/20 08:00 Nasal Cannula 2.00 12/05/20 07:05 92 Nasal Cannula 2.00 12/05/20 04:44 36.7 92 20 116/58 (77) 96 Nasal Cannula 3.00 12/05/20 00:38 36.8 94 18 111/57 (75) 95 Nasal Cannula 3.00 12/04/20 21:18 94 Nasal Cannula 2.00 12/04/20 19:46 36.4 99 18 154/63 (93) 92 Nasal Cannula 3.00 12/04/20 19:16 91 Nasal Cannula 2.00 12/04/20 16:00 36.0 96 16 139/67 (91) 94 Nasal Cannula 4.00 I & O 12/05/20 07:00 Intake Total 1210 ml Output Total 1030 ml Balance 180 ml Capillary Refill : Less Than 3 Seconds General Appearance: No Apparent Distress HEENT: PERRL/EOMI Neck: Full Range of Motion Respiratory: Chest Non Tender, Decreased Breath Sounds Cardiovascular: Regular Rate, Rhythm Gastrointestinal: normal bowel sounds, soft Extremity: Normal Capillary Refill Neurologic/Psychiatric: Alert, Oriented x3 Skin: Normal Color Lymphatic: No Adenopathy Results Lab Laboratory Tests 12/05/20 04:55: White Blood Count 5.7, Red Blood Count 2.85L, Hemoglobin 8.4L, Hematocrit 26L, Mean Corpuscular Volume 91, Mean Corpuscular Hemoglobin 30, Mean Corpuscular Hemoglobin Concent 32, Red Cell Distribution Width 14.6H, Platelet Count 220, Mean Platelet Volume 9.8, Immature Granulocyte % (Auto) 1, Neutrophils (%) (Auto) 51, Lymphocytes (%) (Auto) 36, Monocytes (%) (Auto) 11, Eosinophils (%) (Auto) 1, Basophils (%) (Auto) 0, Neutrophils # (Auto) 2.9, Lymphocytes # (Auto) 2.0, Monocytes # (Auto) 0.6, Eosinophils # (Auto) 0.1, Basophils # (Auto) 0.0, Immature Granulocyte # (Auto) 0.0, Sodium Level 129L, Potassium Level 4.4, Chloride Level 97L, Carbon Dioxide Level 23, Anion Gap 9, Blood Urea Nitrogen 12, Creatinine 0.74, Estimat Glomerular Filtration Rate > 60, BUN/Creatinine Ratio 16, Glucose Level 126H, Calcium Level 7.8L, Corrected Calcium 9.3, Total Bilirubin 0.3, Aspartate Amino Transf (AST/SGOT) 25, Alanine Aminotransferase (ALT/SGPT) 20, Alkaline Phosphatase 211H, B-Type Natriuretic Peptide 30.5, Total Protein 5.2L, Albumin 2.1L Microbiology 11/16/20 MRSA Screen - Final, Complete MRSA not isolated 11/15/20 Gram Stain - Final, Resulted 11/15/20 Anaerobic Culture - Final, Resulted No anaerobes isolated 11/15/20 Surgical Culture - Final, Resulted Bobbi glabrata Bobbi species 11/15/20 Fungal Culture 1 - Preliminary, Resulted Bobbi glabrata Bobbi species Assessment/Plan Assessment/Plan Assess & Plan/Chief Complaint s/p extended right hemicolectomy, end ileostomy, mucous fistula, revision ileostomy, drainage intraabd abscess and VAC placement. will change vac about every 5 days. start a carbapenem. cont TPN cont respiratory support and diuresis. advance to reg diet. definitive abd closure with biologic mesh on wednesday(12/04). may transfer to IRU at anytime. Clinical Quality Measures DVT/VTE Risk/Contraindication: Risk Factor Score Per Nursin MICHAEL XIONG MD Dec 05, 2020 15:06
[2020-12-05 15:54] VITALS: BP 114/62
--- NOTE | 2020-12-05 17:48 | Progress Note - Cardiology ---
Cardiology SOAP Progress Note Subjective: No cp or palp or syncope or shortness of breath at rest Some gen malaise No n/v/d Objective: I&O/Vital Signs 12/05/20 12/05/20 12/05/20 12/05/20 07:05 08:00 08:00 10:14 Temp 36.9 Pulse 94 Resp 18 B/P (MAP) 128/60 (82) Pulse Ox 92 96 99 O2 Delivery Nasal Cannula Nasal Cannula Nasal Cannula Nasal Cannula O2 Flow Rate 2.00 2.00 3.00 3.00 12/05/20 12/05/20 12/05/20 12:00 14:30 15:54 Temp 36.8 35.8 Pulse 94 98 Resp 18 18 B/P (MAP) 130/60 (83) 114/62 (79) Pulse Ox 97 96 96 O2 Delivery Nasal Cannula Nasal Cannula Nasal Cannula O2 Flow Rate 3.00 3.00 3.00 12/05/20 00:00 Intake Total 560 ml Output Total 400 ml Balance 160 ml Constitutional: AAO x 3 Respiratory: No accessory muscle use; other (good, bilateral air entry, diminished at the bases) Cardiovascular: regular rate-rhythm, S1 and S2, systolic murmur (soft JOSIE at card base) Gastrointestional: other (recently post-op, we did not attempt palpation; wound vac in place) Extremities: no lower extremity edema bilateral Neurologic/Psychiatric: oriented x 3 Skin: No rash on exposed areas, No ulcerations on exposed areas Results/Procedures: Labs Laboratory Tests 12/05/20 04:55: White Blood Count 5.7, Red Blood Count 2.85L, Hemoglobin 8.4L, Hematocrit 26L, Mean Corpuscular Volume 91, Mean Corpuscular Hemoglobin 30, Mean Corpuscular Hemoglobin Concent 32, Red Cell Distribution Width 14.6H, Platelet Count 220, Mean Platelet Volume 9.8, Immature Granulocyte % (Auto) 1, Neutrophils (%) (Auto) 51, Lymphocytes (%) (Auto) 36, Monocytes (%) (Auto) 11, Eosinophils (%) (Auto) 1, Basophils (%) (Auto) 0, Neutrophils # (Auto) 2.9, Lymphocytes # (Auto) 2.0, Monocytes # (Auto) 0.6, Eosinophils # (Auto) 0.1, Basophils # (Auto) 0.0, Immature Granulocyte # (Auto) 0.0, Sodium Level 129L, Potassium Level 4.4, Chloride Level 97L, Carbon Dioxide Level 23, Anion Gap 9, Blood Urea Nitrogen 12, Creatinine 0.74, Estimat Glomerular Filtration Rate > 60, BUN/Creatinine Ratio 16, Glucose Level 126H, Calcium Level 7.8L, Corrected Calcium 9.3, Total Bilirubin 0.3, Aspartate Amino Transf (AST/SGOT) 25, Alanine Aminotransferase (ALT/SGPT) 20, Alkaline Phosphatase 211H, B-Type Natriuretic Peptide 30.5, Total Protein 5.2L, Albumin 2.1L Microbiology 11/16/20 MRSA Screen - Final, Complete MRSA not isolated 11/15/20 Gram Stain - Final, Resulted 11/15/20 Anaerobic Culture - Final, Resulted No anaerobes isolated 11/15/20 Surgical Culture - Final, Resulted Bobbi glabrata Bobbi species 11/15/20 Fungal Culture 1 - Preliminary, Resulted Bobbi glabrata Bobbi species Laboratory Tests 12/04/20 05:35 12/05/20 04:55 A/P: Assessment: S/p extended right hemicolectomy, end ileostomy, revision ileostomy, drainage of intraabdominal abscess and VAC placement Ac resp failure following above surgeries COPD H/o hypertension and hyperlipidemia H/o tobacco use Plan: * Continue current regimen * Monitor lab * Replace electrolytes as indicated JENNIFER JUAREZ MD FACP FAC CCDS Dec 05, 2020 17:48
[2020-12-05] MEDS: ENOXAPARIN 40 MG/0.4 ML (LOVENOX) SYR SC SCH (20:47)
[2020-12-06 00:20] VITALS: BP 125/68
[2020-12-06] MEDS: diphenhydrAMINE 25 MG TAB (BENADRYL) PO PRN (01:02)
[2020-12-06] MEDS: HYDROcodone/APAP 7.5MG-325 MG/15 ML (LORTAB) UDC PO PRN (01:03)
[2020-12-06 05:25] LABS: HEMOGLOBIN 7.8 g/dL (11.5-16.0); MEAN PLATELET VOLUME 9.7 fL (9.0-12.2); WHITE BLOOD COUNT 5.5 10^3/uL (4.3-11.0)
--- NOTE | 2020-12-06 05:35 | Pulmonary Progress Note ---
Subjective Time Seen by a Provider: 05:33 Subjective/Events-last exam PT appears to be doing better from pulmonary standpoint. Sepsis Event Evaluation Height, Weight, BMI Height: '" Weight: lbs. oz. kg; 34.48 BMI Method: Exam Exam Vital Signs Date Time Temp Pulse Resp B/P (MAP) Pulse Ox O2 Delivery O2 Flow Rate FiO2 12/06/20 00:20 36.9 94 18 125/68 (87) Nasal Cannula 2.00 12/05/20 20:15 96 Nasal Cannula 2.00 12/05/20 18:38 96 Nasal Cannula 3.00 12/05/20 15:54 35.8 98 18 114/62 (79) 96 Nasal Cannula 3.00 12/05/20 14:30 96 Nasal Cannula 3.00 12/05/20 12:00 36.8 94 18 130/60 (83) 97 Nasal Cannula 3.00 12/05/20 10:14 99 Nasal Cannula 3.00 12/05/20 08:00 36.9 94 18 128/60 (82) 96 Nasal Cannula 3.00 12/05/20 08:00 Nasal Cannula 2.00 12/05/20 07:05 92 Nasal Cannula 2.00 I & O 12/06/20 07:00 Intake Total 1060 ml Output Total 3475 ml Balance -2415 ml Height & Weight Height: '" Weight: lbs. oz. kg; 34.48 BMI Method: General Appearance: No Apparent Distress, WD/WN, Chronically ill HEENT: PERRL/EOMI Neck: Full Range of Motion Respiratory: Chest Non Tender, Lungs Clear, Normal Breath Sounds, No Accessory Muscle Use, No Respiratory Distress Cardiovascular: Regular Rate, Rhythm, No Edema, No Gallop, No JVD, No Murmur, Normal Peripheral Pulses Gastrointestinal: normal bowel sounds, soft Extremity: Normal Capillary Refill Neurologic/Psychiatric: Alert, Oriented x3, No Motor/Sensory Deficits, Normal Mood/Affect Skin: Normal Color Lymphatic: No Adenopathy Results Lab Laboratory Tests 12/04/20 05:35 12/05/20 04:55 Assessment/Plan Assessment/Plan Hypoxia -D/C oxygen if possible. Atelectasis -IS -PT/OT - increase activity -Incrase SVNs to QID Sepsis with abdominal abscess S/p multiple surgeries --Surgery is following - S/P Merrem,and Eraxis Agitation/aggressive behavior -Haldol PRN -Pain control HTN -Lopressor, Lisinopril, Norvasc -Hydralazine PRN Anemia -monitor S/p hemicolectomy secondary to Colon cancer then ileostomy secondary to torsion. repeat surgery secondary to persistent intraabdominal sepsis. Debility HX of COPD with oxygen dependance at home Tobacco dependance anemia s/p 4 units of PRBC GIOVANNA BORREGO DO Dec 06, 2020 05:35
[2020-12-06 05:36] LABS: CHLORIDE 93 MMOL/L (98-107); POTASSIUM 4.1 MMOL/L (3.6-5.0); SODIUM 127 MMOL/L (135-145)
[2020-12-06 05:38] LABS: CALCIUM 7.7 MG/DL (8.5-10.1)
[2020-12-06 05:39] LABS: GLUCOSE 110 MG/DL (70-105); TOTAL PROTEIN 5.1 GM/DL (6.4-8.2)
[2020-12-06 05:40] LABS: BILIRUBIN,TOTAL 0.3 MG/DL (0.1-1.0); CARBON DIOXIDE 25 MMOL/L (21-32)
[2020-12-06 05:42] LABS: ALKALINE PHOSPHATASE 182 U/L (40-136); CREATININE SERUM 0.76 MG/DL (0.60-1.30); GFR ESTIMATED > 60
[2020-12-06 05:43] LABS: BUN/CREATININE RATIO 14
[2020-12-06 05:45] LABS: ALANINE AMINOTRANSFERASE 17 U/L (0-55)
[2020-12-06] MEDS: SUCRALFATE 1 GM (CARAFATE) TAB PO SCH ×4 (05:53→19:58)
[2020-12-06] MEDS: RT-ALBUTEROL/IPRATROPIUM 3 ML (DUONEB) VIAL INH SCH ×4 (07:11→18:37)
[2020-12-06] MEDS: PATIENT MAY USE OWN MED,SINGLE MED INH SCH (07:11)
[2020-12-06 08:00] VITALS: BP 128/62
[2020-12-06] MEDS: amLODIPine 10 MG (NORVASC) TAB PO SCH (08:04)
[2020-12-06] MEDS: NICOTINE PATCH REMOVAL TP SCH (08:04)
[2020-12-06] MEDS: METOCLOPRAMIDE INJ 10 MG/2 ML (REGLAN) IVP SCH ×2 (08:04→19:59)
[2020-12-06] MEDS: lisINopril 20 MG (PRINIVIL) TABLET PO SCH (08:04)
[2020-12-06] MEDS: meTOprolol TARTRATE 25 MG (LOPRESSOR) TABLET PO SCH ×2 (08:04→19:57)
[2020-12-06] MEDS: NICOTINE 14 MG (NICODERM) PATCH TD SCH (08:04)
[2020-12-06] MEDS: PANTOPRAZOLE 40 MG (PROTONIX) VIAL IV SCH ×2 (08:04→19:59)
--- NOTE | 2020-12-06 08:34 | Progress Note - Cardiology ---
Cardiology SOAP Progress Note Subjective: Lying in bed No c/o CP, palpitations Feels SOB is better today than yesterday Objective: I&O/Vital Signs Constitutional: AAO x 3 Respiratory: No accessory muscle use; other (good, bilateral air entry, diminished at the bases) Cardiovascular: regular rate-rhythm, S1 and S2, systolic murmur (soft JOSIE at card base) Gastrointestional: other (s/p abdominal surgery with colostomy placement; wound vac in place) Extremities: no lower extremity edema bilateral Neurologic/Psychiatric: oriented x 3 Skin: No rash on exposed areas, No ulcerations on exposed areas Results/Procedures: Labs Microbiology 11/16/20 MRSA Screen - Final, Complete MRSA not isolated 11/15/20 Gram Stain - Final, Resulted 11/15/20 Anaerobic Culture - Final, Resulted No anaerobes isolated 11/15/20 Surgical Culture - Final, Resulted Bobbi glabrata Bobbi species 11/15/20 Fungal Culture 1 - Preliminary, Resulted Bobbi glabrata Bobbi species A/P: Assessment: S/p extended right hemicolectomy, end ileostomy, revision ileostomy, drainage of intraabdominal abscess and VAC placement Ac resp failure following above surgeries COPD H/o hypertension and hyperlipidemia H/o tobacco use Plan: * Continue current regimen * Monitor lab * Replace electrolytes as indicated * Anemia - management per medical/surgical services * Hyponatremia of undetermined etiology - management per medical services * Advised use of IS MONTY MYERS Dec 06, 2020 08:34
--- NOTE | 2020-12-06 10:33 | Physical Therapy Daily Note ---
PT Daily Note-Current Subjective Patient agrees to PT. Family present. Mental Status Patient Orientation: Normal For Age Attachments: Colostomy/Ileostomy, Oxygen, Lam Catheter wound vac abdomen Transfers SCALE: Activities may be completed with or without assistive devices. 5-Pmtsisncsj-qaeurmv completes the activity by him/herself with no assistance from a helper. 5-Set-up or Clean-up Assistance-helper sets up or cleans up; patient completes activity. [place] assists only prior to or following the activity. 4-Supervision or Touching Assistance-helper provides verbal cues and/or touching/steadying and/or contact guard assistance as patient completes activity. Assistance may be provided throughout the activity or intermittently. 3-Partial/Moderate Assistance-helper does LESS THAN HALF the effort. [place] lifts, holds or supports trunk or limbs, but provides less than half the effort. 2-Substantial/Maximal Assistance-helper does MORE THAN HALF the effort. [place] lifts or holds trunk or limbs and provides more than half the effort. 9-Ljuzqpwgm-xreppb does ALL the effort. Patient does none of the effort to complete the activity. Or, the assistance of 2 or more helpers is required for the patient to complete the activity. If activity was not attempted, code reason: 7-Patient Refused. 9-Not Applicable-not attempted and the patient did not perform the activity before the current illness, exacerbation or injury. 10-Not Attempted due to Environmental Limitations-(lack of equipment, weather restraints, etc.). 88-Not Attempted due to Medical Conditions or Safety Concerns. Lying to Sitting/Side of Bed(Q: 3 Sit to Stand (QC): 2 (x 3 sets standing to FWW) Chair/Xcd-vi-Crbif Xfer(QC): 2 Gait Training Does the Patient Walk?: Yes Distance: 10' Walk 10 feet (QC): 3 Gait Assistive Device: FWW shuffle gait sequence Exercises Seated Therapy Exercises: Ankle pumps, Long arc quads Seated Reps: 15 Assessment Patient up in recliner with needs met. Patient requires encouragement to participate with therapy and ceases treatment due to fatigue. Education with patient on importance of increasing activity to improve strength and mobility. Patient voices understanding. PT Short Term Goals Short Term Goals Time Frame: Dec 07, 2020 Roll Left & Right: 3 Sit to lyin Lying to sitting on side of be: 3 Sit to stand: 3 Chair/txi-uj-ewcst transfer: 3 PT Group Home Goals Technology Analyst Goals PT Group Home Goals Time Frame: Dec 21, 2020 Roll Left & Right (QC): 4 Sit to Lying (QC): 3 Lying-Sitting on Side/Bed(QC): 3 Sit to Stand (QC): 3 Chair/Uou-wl-Vawtk Xfer(QC): 3 PT Plan Treatment/Plan Treatment Plan: Continue Plan of Care Treatment Plan: Bed Mobility, Education, Functional Activity [place], Functional Strength, Gait, Safety, Therapeutic Exercise, Transfers Treatment Duration: Dec 21, 2020 Frequency: 6 times per week Estimated Hrs Per Day: .25 hour per day Time/GCodes Time In: 930 Time Out: 943 Total Billed Treatment Time: 13 Total Billed Treatment 1 visit EX 13 min ROBERT SCHWAB PT Dec 06, 2020 10:33
[2020-12-06] MEDS ORDERED: NS IV 500 ML 500 ML IV SCH (11:15)
[2020-12-06] MEDS ORDERED: SODIUM CHLORIDE 1 GM TABLET PO NR (11:15)
--- NOTE | 2020-12-06 12:02 | Progress Note - Hospitalist ---
DUANE CASTILLO MED STUDENT 12/06/20 1202: Subjective HPI/CC On Admission CC: VDRF following surgery for abscess and ileostomy ischemia HPI: This is a 75yoWF clinic patient of Dr Ba who presents to the ICU following urgent surgery following failure on IRF due to sepsis and elevated wbc. Patient was assessed to have ileostomy ischemia and abscess. Patient is currently on Cipro, Flagyl, Vanc, Kinga and Diflucan. Patient has a h/o colon cancer s/p resection 2 weeks ago and I was consulted for AECOPD due to long smoking hx and severe anemia s/p transfusion and resolution of hyponatremia. She had a complication of torsion requiring diverting ileostomy and she became strong enough to go to IRF but only lasted 2 days before she decompensated. Cu rrently she remains intubated and critically ill. Subjective/Events-last exam The patient states she is better and has less abdominal pain but it's still sore. She is tolerating her diet and denies any nausea or vomiting. She continues to use a bag and catheter. The bag leaked 2x this morning due to improper placement and was being replaced again. They tried to take her off of the oxygen but her levels dropped to 87% and she was placed back on the nasal canula. She believes she's stagnant with the progress she's making with PT/OT. She denies ambulation but has been working on leg exercises and moving to the chair. She states she needs a lot of help moving. Her goal in rehab is to be able to walk on her own. Hgb 7.8 decreased from yesterday Na 127 glucose 110 Review of Systems Gastrointestinal: Abdominal Pain; No: Nausea, Vomiting Neurological: Weakness Objective Exam Vital Signs Vital Signs Date Time Temp Pulse Resp B/P (MAP) Pulse Ox O2 Delivery O2 Flow Rate FiO2 12/06/20 10:41 97 Nasal Cannula 1.00 12/06/20 08:00 35.8 92 20 128/62 (84) Capillary Refill : Less Than 3 Seconds General Appearance: No Apparent Distress, WD/WN Respiratory: Chest Non Tender, Normal Breath Sounds, No Accessory Muscle Use, No Respiratory Distress, Wheezing (minimal due to years of chronic smoking) Cardiovascular: Regular Rate, Rhythm Gastrointestinal: Soft, Tenderness Neurologic/Psychiatric: Alert, Oriented x3, Normal Mood/Affect Skin: Normal Color, Warm/Dry Results/Procedures Lab Laboratory Tests 12/06/20 05:15 Patient resulted labs reviewed. Assessment/Plan Assessment and Plan Assess & Plan/Chief Complaint 1. acute respiratory distress s/p surgery - followed by Dr. Moreno. 2. s/p surgery VAC replaced - abdominal closure and VAC replaced yesterday. bag needs replacing today. followed by surgery. consider moving down to rehab for PT/OT. 3. aggittation/aggressive bx - haloperidol and pain control 4. HTN - toprol, lisinopril, amlodipine 5. anemia - 1 unit blood transfusion today. 6. Hx of COPD, anemia, smoking 7. sinus tachycardia - followed by cardiology 8. hyponatremia - given salt pill today Diagnosis/Problems Diagnosis/Problems (1) COPD (chronic obstructive pulmonary disease) (2) Hyponatremia (3) Ileostomy in place (4) Anemia due to acute blood loss (5) Ileus following gastrointestinal surgery Clinical Quality Measures DVT/VTE Risk/Contraindication: Risk Factor Score Per Nursin GENNA MARTÍNEZ DO 12/07/20 0543: Subjective HPI/CC On Admission Date Seen by Provider: Dec 06, 2020 Time Seen by Provider: 10:00 Subjective/Events-last exam Patient doing well Looks better every day Transfusion indicated today Restart salt tablets Review of Systems General: Fatigue, Malaise Objective Exam General Appearance: No Apparent Distress, WD/WN, Chronically ill Respiratory: Lungs Clear Cardiovascular: Regular Rate, Rhythm Neurologic/Psychiatric: Alert, Oriented x3, No Motor/Sensory Deficits, Normal Mood/Affect Assessment/Plan Assessment and Plan Assess & Plan/Chief Complaint IRF? Give 1 unit of blood today Restart salt tablets Supervisory-Addendum Brief Verification & Attestation Participated in pt care: history, MDM, physical Personally performed: exam, history, MDM, supervision of care Care discussed with: Medical Student Procedures: n/a Results interpretation: Verified all documentation Verification and Attestation of Medical Student E/M Service A medical student performed and documented this service in my presence. I reviewed and verified all information documented by the medical student and made modifications to such information, when appropriate. I personally performed the physical exam and medical decision making. Genna Martínez, Dec 07, 2020,05:43 DUANE CASTILLO MED STUDENT Dec 06, 2020 12:02 GENNA MARTÍNEZ DO Dec 07, 2020 05:43
[2020-12-06 13:13] VITALS: BP 116/58
--- NOTE | 2020-12-06 13:15 | Progress Note ---
Subjective Date Seen by a Provider: Dec 06, 2020 Time Seen by a Provider: 13:00 Subjective/Events-last exam doing well. no complaints. ambulation improving. tolerating diet. Objective Exam Vital Signs Date Time Temp Pulse Resp B/P (MAP) Pulse Ox O2 Delivery O2 Flow Rate FiO2 12/06/20 10:41 97 Nasal Cannula 1.00 12/06/20 09:00 96 Nasal Cannula 1.00 12/06/20 08:00 35.8 92 20 128/62 (84) 90 1.00 12/06/20 07:18 Room Air 12/06/20 07:12 96 Nasal Cannula 2.00 12/06/20 06:25 87 Room Air 12/06/20 00:20 36.9 94 18 125/68 (87) Nasal Cannula 2.00 12/05/20 20:15 96 Nasal Cannula 2.00 12/05/20 18:38 96 Nasal Cannula 3.00 12/05/20 15:54 35.8 98 18 114/62 (79) 96 Nasal Cannula 3.00 12/05/20 14:30 96 Nasal Cannula 3.00 I & O 12/06/20 07:00 Intake Total 1060 ml Output Total 4200 ml Balance -3140 ml Capillary Refill : Less Than 3 Seconds General Appearance: No Apparent Distress HEENT: PERRL/EOMI Neck: Full Range of Motion Respiratory: Chest Non Tender, Decreased Breath Sounds, Wheezing Cardiovascular: Regular Rate, Rhythm Gastrointestinal: normal bowel sounds, soft Extremity: Normal Capillary Refill Neurologic/Psychiatric: Alert, Oriented x3 Skin: Normal Color Lymphatic: No Adenopathy Results Lab Laboratory Tests 12/06/20 05:15: White Blood Count 5.5, Red Blood Count 2.63L, Hemoglobin 7.8L, Hematocrit 24L, Mean Corpuscular Volume 91, Mean Corpuscular Hemoglobin 30, Mean Corpuscular Hemoglobin Concent 33, Red Cell Distribution Width 14.6H, Platelet Count 224, Mean Platelet Volume 9.7, Sodium Level 127L, Potassium Level 4.1, Chloride Level 93L, Carbon Dioxide Level 25, Anion Gap 9, Blood Urea Nitrogen 11, Creatinine 0.76, Estimat Glomerular Filtration Rate > 60, BUN/Creatinine Ratio 14, Glucose Level 110H, Calcium Level 7.7L, Corrected Calcium 9.3, Total Bilirubin 0.3, Aspartate Amino Transf (AST/SGOT) 26, Alanine Aminotransferase (ALT/SGPT) 17, Alkaline Phosphatase 182H, Total Protein 5.1L, Albumin 2.0L Microbiology 11/16/20 MRSA Screen - Final, Complete MRSA not isolated 11/15/20 Gram Stain - Final, Resulted 11/15/20 Anaerobic Culture - Final, Resulted No anaerobes isolated 11/15/20 Surgical Culture - Final, Resulted Bobbi glabrata Bobbi species 11/15/20 Fungal Culture 1 - Preliminary, Resulted Bobbi glabrata Bobbi species Assessment/Plan Assessment/Plan Assess & Plan/Chief Complaint s/p extended right hemicolectomy, end ileostomy, mucous fistula, revision ileostomy, drainage intraabd abscess and VAC placement. will change vac about every 5 days. start a carbapenem. cont TPN cont respiratory support and diuresis. advance to reg diet. definitive abd closure with biologic mesh on wednesday(12/04) with overlying regular wound vac to allow for subcutaneous and skin secondary intention. may transfer to IRU at anytime. Clinical Quality Measures DVT/VTE Risk/Contraindication: Risk Factor Score Per Nursin MICHAEL XIONG MD Dec 06, 2020 13:15
[2020-12-06 13:28] VITALS: BP 104/51
--- NOTE | 2020-12-06 13:39 | Occupational Ther Daily Note ---
OT Current Status-Daily Note Subjective Pt alert, lying in bed. Pt agrees to therapy. Stated that I get to come back down to rehab. Pt did need encouragement to sit EOB, stating I have already done that once today. Mental Status/Objective Patient Orientation: Person, Place, Time, Situation Attachments: Drains, Lam Catheter, IV, Oxygen ADL-Treatment Therapy Code Descriptions/Definitions Functional [place] Measure: 0=Not Assessed/NA 4=Minimal Assistance 1=Total Assistance 5=Supervision or Setup 2=Maximal Assistance 6=Modified [place] 3=Moderate Assistance 7=Complete IndependenceSCALE: Activities may be completed with or without assistive devices. 0-Cuuefbxcia-pkzuugb completes the activity by him/herself with no assistance from a helper. 5-Set-up or Clean-up Assistance-helper sets up or cleans up; patient completes activity. [place] assists only prior to or following the activity. 4-Supervision or Touching Assistance-helper provides verbal cues and/or touching/steadying and/or contact guard assistance as patient completes activity. Assistance may be provided throughout the activity or intermittently. 3-Partial/Moderate Assistance-helper does LESS THAN HALF the effort. [place] lifts, holds or supports trunk or limbs, but provides less than half the effort. 2-Substantial/Maximal Assistance-helper does MORE THAN HALF the effort. [place] lifts or holds trunk or limbs and provides more than half the effort. 7-Tsotdjggh-xariez does ALL the effort. Patient does none of the effort to complete the activity. Or, the assistance of 2 or more helpers is required for the patient to complete the activity. If activity was not attempted, code reason: 7-Patient Refused. 9-Not Applicable-not attempted and the patient did not perform the activity before the current illness, exacerbation or injury. 10-Not Attempted due to Environmental Limitations-(lack of equipment, weather restraints, etc.). 88-Not Attempted due to Medical Conditions or Safety Concerns. Other Treatment Min A for supine <--> sitting EOB. Pt sat EOB for 6 min without LOB. Pt completed 3 shldr exercises 1 set 5 reps, increased SOA noted. Pt then was able to sit EOB, lean forward, push with hands and feet to scoot up to HOB with SBA for safety. After session, pt lying in bed with call light/phone in reach. All needs met in room. OT Short Term Goals Short Term Goals Time Frame: Dec 03, 2020 Eatin Oral hygiene: 3 Toileting hygiene: 3 Shower/bathe self: 3 Upper body dressin Lower body dressin Putting on/taking off footwear: 3 OT Senior Care Goals Warehouse Analyst Goals Time Frame: Dec 17, 2020 Eating (QC): 6 Oral Hygiene (QC): 6 Toileting Hygiene (QC): 6 Shower/Bathe Self (QC): 4 Upper Body Dressing (QC): 5 Lower Body Dressing (QC): 4 On/Off Footwear (QC): 4 Additional Goals: 1-Demonstrate ADL Tasks, 2-Verbalize Understanding, 3- ImproveStrength/[place] 1=Demonstrate adherence to instructed precautions during ADL tasks. 2=Patient will verbalize/demonstrate understanding of assistive devices/modifications for ADL. 3=Patient will improve strength/tolerance for activity to enable patient to perform ADL's. OT Education/Plan Problem List/Assessment Assessment: Decreased Activ Tolerance, Decreased UE Strength, Impaired Bed Mobility, Impaired Self-Care Skills Discharge Recommendations Plan/Recommendations: Continue POC Treatment Plan/Plan of Care Patient would benefit from OT for education, treatment and training to promote independence in ADL's, mobility, safety and/or upper extremity function for ADL's. Plan of Care: ADL Retraining, Functional Mobility, UE Funct Exercise/Act Treatment Duration: Dec 17, 2020 Frequency: 5 times per week Estimated Hrs Per Day: .25 hour per day Agreement: Yes Rehab Potential: Fair Time/GCodes Start Time: 13:15 Stop Time: 13:32 Total Time Billed (hr/min): 17 Billed Treatment Time 1 visit-FA 1 (17 min) RAIZA BROWNING Dec 06, 2020 13:39
[2020-12-06 15:48] VITALS: BP 119/60
[2020-12-06 16:00] VITALS: BP 119/60
--- NOTE | 2020-12-06 17:17 | Progress Note - Cardiology ---
Cardiology SOAP Progress Note Subjective: Gen malaise and weakness No cp or palp or syncope Shortness of breath with activity Objective: I&O/Vital Signs 12/06/20 12/06/20 12/06/20 12/06/20 06:25 07:12 07:18 08:00 Temp 35.8 Pulse 92 Resp 20 B/P (MAP) 128/62 (84) Pulse Ox 87 96 90 O2 Delivery Room Air Nasal Cannula Room Air O2 Flow Rate 2.00 1.00 12/06/20 12/06/20 12/06/20 12/06/20 09:00 10:41 13:13 13:28 Temp 36.3 36.1 Pulse 95 94 B/P (MAP) 116/58 104/51 Pulse Ox 96 97 94 91 O2 Delivery Nasal Cannula Nasal Cannula Nasal Cannula Nasal Cannula O2 Flow Rate 1.00 1.00 1.00 1.00 12/06/20 12/06/20 12/06/20 15:03 15:48 16:00 Temp 36.7 36.7 Pulse 92 92 Resp 18 B/P (MAP) 119/60 119/60 (79) Pulse Ox 92 96 O2 Delivery Nasal Cannula Nasal Cannula O2 Flow Rate 1.00 1.00 12/06/20 00:00 Intake Total 1060 ml Output Total 3475 ml Balance -2415 ml Constitutional: AAO x 3 Respiratory: No accessory muscle use; other (good, bilateral air entry, diminished at the bases) Cardiovascular: regular rate-rhythm, S1 and S2, systolic murmur (soft JOSIE at card base) Gastrointestional: other (s/p abdominal surgery with colostomy placement; wound vac in place) Extremities: no lower extremity edema bilateral Neurologic/Psychiatric: oriented x 3 Skin: No rash on exposed areas, No ulcerations on exposed areas Results/Procedures: Labs Laboratory Tests 12/06/20 05:15: White Blood Count 5.5, Red Blood Count 2.63L, Hemoglobin 7.8L, Hematocrit 24L, Mean Corpuscular Volume 91, Mean Corpuscular Hemoglobin 30, Mean Corpuscular Hemoglobin Concent 33, Red Cell Distribution Width 14.6H, Platelet Count 224, Mean Platelet Volume 9.7, Sodium Level 127L, Potassium Level 4.1, Chloride Level 93L, Carbon Dioxide Level 25, Anion Gap 9, Blood Urea Nitrogen 11, Creatinine 0.76, Estimat Glomerular Filtration Rate > 60, BUN/Creatinine Ratio 14, Glucose Level 110H, Calcium Level 7.7L, Corrected Calcium 9.3, Total Bilirubin 0.3, Aspartate Amino Transf (AST/SGOT) 26, Alanine Aminotransferase (ALT/SGPT) 17, Alkaline Phosphatase 182H, Total Protein 5.1L, Albumin 2.0L Microbiology 11/16/20 MRSA Screen - Final, Complete MRSA not isolated 11/15/20 Gram Stain - Final, Resulted 11/15/20 Anaerobic Culture - Final, Resulted No anaerobes isolated 11/15/20 Surgical Culture - Final, Resulted Bobbi glabrata Bobbi species 11/15/20 Fungal Culture 1 - Preliminary, Resulted Bobbi glabrata Bobbi species Laboratory Tests 12/05/20 04:55 12/06/20 05:15 A/P: Assessment: S/p extended right hemicolectomy, end ileostomy, revision ileostomy, drainage of intraabdominal abscess and VAC placement Hyponatremia of undetermined etiology - management per Medical services Ac resp failure following above surgeries COPD H/o hypertension and hyperlipidemia H/o tobacco use Plan: * Continue current regimen * Monitor lab * Replace electrolytes as indicated * Anemia - management per medical/surgical services JENNIFER JUAREZ MD FACP FAC CCDS Dec 06, 2020 17:17
[2020-12-06] MEDS: SODIUM CHLORIDE 1 GM TABLET PO SCH (19:57)
[2020-12-06] MEDS: ENOXAPARIN 40 MG/0.4 ML (LOVENOX) SYR SC SCH (19:59)
[2020-12-06] MEDS: MELATONIN 3 MG TABLET PO PRN (22:08)
[2020-12-07 00:54] VITALS: BP 115/58
[2020-12-07] MEDS: diphenhydrAMINE 25 MG TAB (BENADRYL) PO PRN ×2 (02:13→12:50)
[2020-12-07] MEDS: SUCRALFATE 1 GM (CARAFATE) TAB PO SCH ×2 (05:18→11:43)
[2020-12-07 05:46] LABS: BASOPHILS % (AUTO) 0 % (0-10); EOSINOPHILS # (AUTO) 0.1 10^3/uL (0.0-0.3); EOSINOPHILS % (AUTO) 2 % (0-10); HEMATOCRIT 27 % (35-52); LYMPHOCYTES # (AUTO) 2.1 10^3/uL (1.0-4.0); LYMPHOCYTES % (AUTO) 36 % (12-44); MEAN CORPUSCULAR HEMOGLOBIN 30 pg (25-34); MEAN CORPUSCULAR HGB CONC 33 g/dL (32-36); MEAN CORPUSCULAR VOLUME 90 fL (80-99); MEAN PLATELET VOLUME 9.7 fL (9.0-12.2); MONOCYTES # (AUTO) 0.8 10^3/uL (0.0-1.0); MONOCYTES % (AUTO) 14 % (0-12); NEUTROPHILS # (AUTO) 2.6 10^3/uL (1.8-7.8); NEUTROPHILS % (AUTO) 47 % (42-75); PLATELET COUNT 224 10^3/uL (130-400); WHITE BLOOD COUNT 5.7 10^3/uL (4.3-11.0)
[2020-12-07 06:15] LABS: ALBUMIN 2.1 GM/DL (3.2-4.5); CHLORIDE 94 MMOL/L (98-107); POTASSIUM 4.3 MMOL/L (3.6-5.0); SODIUM 127 MMOL/L (135-145)
[2020-12-07 06:16] LABS: CALCIUM 7.9 MG/DL (8.5-10.1)
[2020-12-07 06:17] LABS: GLUCOSE 127 MG/DL (70-105); TOTAL PROTEIN 5.4 GM/DL (6.4-8.2)
[2020-12-07 06:18] LABS: CARBON DIOXIDE 23 MMOL/L (21-32)
[2020-12-07 06:19] LABS: BILIRUBIN,TOTAL 0.3 MG/DL (0.1-1.0)
[2020-12-07 06:20] LABS: ALKALINE PHOSPHATASE 168 U/L (40-136)
[2020-12-07 06:21] LABS: CREATININE SERUM 0.72 MG/DL (0.60-1.30); GFR ESTIMATED > 60
[2020-12-07 06:22] LABS: BUN/CREATININE RATIO 15
[2020-12-07 06:24] LABS: ALANINE AMINOTRANSFERASE 21 U/L (0-55)
--- NOTE | 2020-12-07 06:53 | Discharge Summary ---
Diagnosis/Chief Complaint Date of Admission Nov 15, 2020 at 12:25 Date of Discharge Discharge Date: Dec 07, 2020 Discharge Diagnosis Respiratory failure requiring vent management VDRF following surgery for abscess and ileostomy ischemia Intra-abdominal wound vac s/p general anesthesia required to change x 3 s/p closure of abdominal wound POD # 3 HPI: This is a 75yoWF clinic patient of Dr Ba who presents to the ICU following urgent surgery following failure on IRF due to sepsis and elevated wbc. Patient was assessed to have ileostomy ischemia and abscess. Patient is currently on Cipro, Flagyl, Vanc, Kinga and Diflucan. Patient has a h/o colon cancer s/p resection 2 weeks ago and I was consulted for AECOPD due to long smoking hx and severe anemia s/p transfusion and resolution of hyponatremia. She had a complication of torsion requiring diverting ileostomy and she became strong enough to go to IRF but only lasted 2 days before she decompensated. Currently she remains intubated and critically ill. Discharge Summary Discharge Physical Examination Allergies: Coded Allergies: Penicillins (Verified Allergy, Unknown, Anaphylaxis, 09/26/20) budesonide (Verified Allergy, Unknown, Nausea, 09/26/20) formoterol (Verified Allergy, Unknown, Nausea, 09/26/20) midazolam (Verified Allergy, Unknown, Anaphylaxis, 09/26/20) Vitals & I&Os Vital Signs Date Time Temp Pulse Resp B/P (MAP) Pulse Ox O2 Delivery O2 Flow Rate FiO2 12/07/20 10:26 90 Nasal Cannula 1.00 12/07/20 08:00 36.4 92 20 121/64 (83) General Appearance: Alert, Oriented X3, Cooperative Respiratory: Clear to Auscultation Cardiovascular: Regular Rate Psych/Mental Status: Mental Status NL Hospital Course Was the Problem List Reviewed?: Yes Complex course after transferring from IRF 2 days after arrival due to sepsis, MOUSTAPHA and abscess formation. Surgery performed by Dr Lynch and placement of intra- abdominal wound vac which required general anesthesia to change x 3 before closure of the wound. Patient required ventilator management for VDRF and transfusions and TPN which ultimately resolved and patient was moved to 4th floor. PT OT ordered in meantime. Patient ultimately had closure of the abdominal wound and was able to move to IRF to complete recovery. Labs (last 24 hrs) Laboratory Tests 11/15/20 12:25: Lab Scanned Report Referred Lab Report 11/15/20 17:00: White Blood Count 29.0H, Red Blood Count 2.90L, Hemoglobin 9.0L, Hematocrit 27L, Mean Corpuscular Volume 93, Mean Corpuscular Hemoglobin 31, Mean Corpuscular Hem oglobin Concent 33, Red Cell Distribution Width 15.8H, Platelet Count 503H, Mean Platelet Volume 9.9, Immature Granulocyte % (Auto) 5, Neutrophils (%) (Auto) 84H , Lymphocytes (%) (Auto) 4L, Monocytes (%) (Auto) 7, Eosinophils (%) (Auto) 1, Basophils (%) (Auto) 0, Neutrophils # (Auto) 24.4H, Lymphocytes # (Auto) 1.0, Monocytes # (Auto) 1.9H, Eosinophils # (Auto) 0.2, Basophils # (Auto) 0.1, Immature Granulocyte # (Auto) 1.3H, Sodium Level 135, Potassium Level 6.4H, Chl oride Level 104, Carbon Dioxide Level 19L, Anion Gap 12, Blood Urea Nitrogen 61H , Creatinine 1.98H, Estimat Glomerular Filtration Rate 25, BUN/Creatinine Ratio 31, Glucose Level 146H, Calcium Level 6.8L, Corrected Calcium 8.7, Magnesium Level 2.4, Total Bilirubin 1.0, Aspartate Amino Transf (AST/SGOT) 67H, Alanine Aminotransferase (ALT/SGPT) 29, Alkaline Phosphatase 166H, Total Protein 3.8L, Albumin 1.6L 11/15/20 17:10: Blood Gas Puncture Site UNK, Blood Gas Patient Temperature 35.5, Arterial Blood pH 7.27*L, Arterial Blood Partial Pressure CO2 40, Arterial Blood Partial Pressure O2 78L, Arterial Blood HCO3 18L, Arterial Blood Total CO2 19.6L, Arterial Blood Oxygen Saturation 95, Arterial Blood Base Excess -7.6L, Adi T est POSITIVE, Blood Gas Ventilator Setting YES, Blood Gas Inspired Oxygen 70% 11/15/20 17:36: Glucometer 144H 11/15/20 21:50: White Blood Count 32.2*H, Red Blood Count 2.82L, Hemoglobin 8.8L, Hematocrit 26L , Mean Corpuscular Volume 93, Mean Corpuscular Hemoglobin 31, Mean Corpuscular Hemoglobin Concent 34, Red Cell Distribution Width 15.9H, Platelet Count 541H, Mean Platelet Volume 10.1, Immature Granulocyte % (Auto) 4, Neutrophils (%) (Auto) 87H, Lymphocytes (%) (Auto) 4L, Monocytes (%) (Auto) 5, Eosinophils (%) (Auto) 0, Basophils (%) (Auto) 0, Neutrophils # (Auto) 28.0H, Lymphocytes # (Auto) 1.1, Monocytes # (Auto) 1.6H, Eosinophils # (Auto) 0.0, Basophils # (Auto) 0.1, Immature Granulocyte # (Auto) 1.3H, Sodium Level 131L, Potassium Level 6.2H, Chloride Level 103, Carbon Dioxide Level 16L, Anion Gap 12, Blood Urea Nitrogen 63H, Creatinine 2.01H, Estimat Glomerular Filtration Rate 24, BUN/Creatinine Ratio 31, Glucose Level 230H, Calcium Level 7.3L, Corrected Calcium 9.2, Total Bilirubin 1.0, Aspartate Amino Transf (AST/SGOT) 67H, Alanine Aminotransferase (ALT/SGPT) 29, Alkaline Phosphatase 152H, Total Protein 3.7L, Albumin 1.6L 11/16/20 00:51: Glucometer 253H 11/16/20 03:30: White Blood Count 30.5*H, Red Blood Count 2.57L, Hemoglobin 7.9L, Hematocrit 24L , Mean Corpuscular Volume 92, Mean Corpuscular Hemoglobin 31, Mean Corpuscular Hemoglobin Concent 33, Red Cell Distribution Width 16.1H, Platelet Count 587H, Mean Platelet Volume 10.4, Immature Granulocyte % (Auto) 5, Neutrophils (%) (Auto) 85H, Lymphocytes (%) (Auto) 3L, Monocytes (%) (Auto) 6, Eosinophils (%) (Auto) 0, Basophils (%) (Auto) 0, Neutrophils # (Auto) 26.0H, Lymphocytes # (Auto) 1.0, Monocytes # (Auto) 1.8H, Eosinophils # (Auto) 0.0, Basophils # (Auto) 0.1, Immature Granulocyte # (Auto) 1.6H, Sodium Level 133L, Potassium Level 5.5H, Chloride Level 104, Carbon Dioxide Level 19L, Anion Gap 10, Blood Urea Nitrogen 63H, Creatinine 1.93H, Estimat Glomerular Filtration Rate 25, BUN/Creatinine Ratio 33, Glucose Level 254H, Calcium Level 7.3L, Corrected Calcium 9.4, Total Bilirubin 0.9, Aspartate Amino Transf (AST/SGOT) 55H, Alanine Aminotransferase (ALT/SGPT) 27, Alkaline Phosphatase 148H, Total Protein 3.5L, Albumin 1.4L, Blood Gas Puncture Site RIGHT RADIAL, Blood Gas Patient Temperature 36.4, Arterial Blood pH 7.35L, Arterial Blood Partial Pressure CO2 37, Arterial Blood Partial Pressure O2 97H, Arterial Blood HCO3 20L, Arterial Blood Total CO2 21.5, Arterial Blood Oxygen Saturation 98, Arterial Blood Base Excess -4.4L, Adi Test YES-POS, Blood Gas Ventilator Setting YES, Blood Gas Inspired Oxygen 70%, Phosphorus Level 6.1H, Magnesium Level 2.2 11/16/20 11:07: Glucometer 211H 11/16/20 17:29: Glucometer 177H 11/16/20 23:17: Glucometer 151H 11/17/20 04:50: White Blood Count 16.9H, Red Blood Count 2.08L, Hemoglobin 6.6*L, Hematocrit 21L , Mean Corpuscular Volume 100H, Mean Corpuscular Hemoglobin 32, Mean Corpuscular Hemoglobin Concent 32, Red Cell Distribution Width 16.8H, Platelet Count 336, Mean Platelet Volume 10.2, Immature Granulocyte % (Auto) 5, Neutrophils (%) (A uto) 84H, Lymphocytes (%) (Auto) 5L, Monocytes (%) (Auto) 7, Eosinophils (%) (Auto) 0, Basophils (%) (Auto) 0, Neutrophils # (Auto) 14.1H, Lymphocytes # (Auto) 0.8L, Monocytes # (Auto) 1.1H, Eosinophils # (Auto) 0.0, Basophils # (Auto) 0.1, Immature Granulocyte # (Auto) 0.8H, Blood Gas Puncture Site RIGHT RADIAL, Blood Gas Patient Temperature 36.4, Arterial Blood pH 7.33*L, Arterial Blood Partial Pressure CO2 40, Arterial Blood Partial Pressure O2 122H, Arterial Blood HCO3 21L, Arterial Blood Total CO2 22.2, Arterial Blood Oxygen Saturation 100, Arterial Blood Base Excess -4.1L, Adi Test YES-POS, Blood Gas Ventilator Setting YES, Blood Gas Inspired Oxygen 36%, Sodium Level 136, Potassium Level 4.5, Chloride Level 106, Carbon Dioxide Level 19L, Anion Gap 11, Blood Urea Nitrogen 72H, Creatinine 1.79H, Estimat Glomerular Filtration Rate 28, BUN/Creatinine Ratio 40, Glucose Level 147H, Calcium Level 7.2L, Magnesium Level 2.4 11/17/20 05:40: Phosphorus Level 4.7 11/17/20 11:40: Glucometer 136H 11/17/20 17:05: Glucometer 127H 11/17/20 18:05: Hemoglobin 7.4L, Hematocrit 22L 11/17/20 23:39: Glucometer 138H 11/18/20 03:01: Phosphorus Level 4.4 11/18/20 03:10: White Blood Count 14.8H, Red Blood Count 2.57L, Hemoglobin 7.8L, Hematocrit 23L, Mean Corpuscular Volume 91, Mean Corpuscular Hemoglobin 30, Mean Corpuscular Hemoglobin Concent 33, Red Cell Distribution Width 16.9H, Platelet Count 271, Mean Platelet Volume 10.2, Immature Granulocyte % (Auto) 6, Neutrophils (%) (Auto) 83H, Lymphocytes (%) (Auto) 5L, Monocytes (%) (Auto) 6, Eosinophils (%) (Auto) 0, Basophils (%) (Auto) 0, Neutrophils # (Auto) 12.4H, Lymphocytes # (Auto) 0.7L, Monocytes # (Auto) 0.9, Eosinophils # (Auto) 0.0, Basophils # (Auto) 0.0, Immature Granulocyte # (Auto) 0.8H, Blood Gas Puncture Site RIGHT ART LINE, Blood Gas Patient Temperature 36.3, Arterial Blood pH 7.38, Arterial Blood Partial Pressure CO2 35, Arterial Blood Partial Pressure O2 94H, Arterial Blood HCO3 21L, Arterial Blood Total CO2 21.8, Arterial Blood Oxygen Saturation 99, Arterial Blood Base Excess -3.7L, Adi Test ART LINE, Blood Gas Ventilator Setting YES, Blood Gas Inspired Oxygen 30%, Sodium Level 139, Potassium Level 4.3, Chloride Level 110H, Carbon Dioxide Level 18L, Anion Gap 11, Blood Urea Nitrogen 70H, Creatinine 1.51H, Estimat Glomerular Filtration Rate 34, BUN/Creatinine Ratio 46, Glucose Level 135H, Calcium Level 7.4L, Magnesium Level 2.3 11/18/20 05:45: Blood Gas Puncture Site RIGHT ARTLINE, Blood Gas Patient Temperature 36.4, Arterial Blood pH 7.32*L, Arterial Blood Partial Pressure CO2 42, Arterial Blood Partial Pressure O2 75L, Arterial Blood HCO3 21L, Arterial Blood Total CO2 22.6, Arterial Blood Oxygen Saturation 95, Arterial Blood Base Excess -3.9L, Adi Test ART LINE, Blood Gas Ventilator Setting YES, Blood Gas Inspired Oxygen 28% 11/18/20 11:49: Glucometer 113H 11/18/20 17:03: Glucometer 107 11/18/20 23:10: Glucometer 141H 11/19/20 02:28: White Blood Count 17.0H, Red Blood Count 2.69L, Hemoglobin 8.2L, Hematocrit 25L, Mean Corpuscular Volume 91, Mean Corpuscular Hemoglobin 31, Mean Corpuscular Hemoglobin Concent 34, Red Cell Distribution Width 17.0H, Platelet Count 308, Mean Platelet Volume 10.2, Immature Granulocyte % (Auto) 8, Neutrophils (%) (Auto) 80H, Lymphocytes (%) (Auto) 5L, Monocytes (%) (Auto) 7, Eosinophils (%) (Auto) 0, Basophils (%) (Auto) 1, Neutrophils # (Auto) 13.6H, Lymphocytes # (Auto) 0.8L, Monocytes # (Auto) 1.2H, Eosinophils # (Auto) 0.0, Basophils # (Auto) 0.1, Immature Granulocyte # (Auto) 1.4H, Sodium Level 146H, Potassium Level 4.3, Chloride Level 115H, Carbon Dioxide Level 22, Anion Gap 9, Blood Urea Nitrogen 61H, Creatinine 1.22, Estimat Glomerular Filtration Rate 43, BUN/Creatinine Ratio 50, Glucose Level 155H, Calcium Level 7.8L, Phosphorus Level 4.4, Magnesium Level 2.3 11/19/20 03:30: Blood Gas Puncture Site RIGHT RADIAL, Blood Gas Patient Temperature 36.4, Arterial Blood pH 7.37, Arterial Blood Partial Pressure CO2 41, Arterial Blood Partial Pressure O2 68L, Arterial Blood HCO3 23, Arterial Blood Total CO2 24.3, Arterial Blood Oxygen Saturation 99, Arterial Blood Base Excess -1.6, Adi Test YES-POS, Blood Gas Ventilator Setting NO, Blood Gas Inspired Oxygen 35% 11/19/20 12:32: Glucometer 198H 11/19/20 17:13: Glucometer 153H 11/20/20 00:01: Glucometer 151H 11/20/20 01:45: White Blood Count 15.5H, Red Blood Count 2.42L, Hemoglobin 7.3L, Hematocrit 22L, Mean Corpuscular Volume 93, Mean Corpuscular Hemoglobin 30, Mean Corpuscular Hemoglobin Concent 33, Red Cell Distribution Width 17.1H, Platelet Count 296, Mean Platelet Volume 10.3, Immature Granulocyte % (Auto) 9, Neutrophils (%) (Auto) 81H, Lymphocytes (%) (Auto) 5L, Monocytes (%) (Auto) 5, Eosinophils (%) (Auto) 0, Basophils (%) (Auto) 0, Neutrophils # (Auto) 12.5H, Lymphocytes # (Auto) 0.7L, Monocytes # (Auto) 0.8, Eosinophils # (Auto) 0.0, Basophils # (Auto) 0.0, Immature Granulocyte # (Auto) 1.3H, Neutrophils % (Manual) 82, Lymphocytes % (Manual) 6, Monocytes % (Manual) 4, Band Neutrophils 8, Blood Morphology Comment NORMAL, Sodium Level 151H, Potassium Level 4.3, Chloride Level 118H, Carbon Dioxide Level 25, Anion Gap 8, Blood Urea Nitrogen 57H, Creatinine 1.00, Estimat Glomerular Filtration Rate 54, BUN/Creatinine Ratio 57, Glucose Level 167H, Calcium Level 8.0L, Phosphorus Level 4.0, Magnesium Level 2. 4 11/20/20 11:13: Glucometer 164H 11/20/20 17:47: Glucometer 140H 11/21/20 02:30: White Blood Count 11.2H, Red Blood Count 2.43L, Hemoglobin 7.3L, Hematocrit 23L, Mean Corpuscular Volume 95, Mean Corpuscular Hemoglobin 30, Mean Corpuscular Hemoglobin Concent 32, Red Cell Distribution Width 17.2H, Platelet Count 270, Mean Platelet Volume 10.3, Immature Granulocyte % (Auto) 6, Neutrophils (%) (Aut o) 80H, Lymphocytes (%) (Auto) 6L, Monocytes (%) (Auto) 7, Eosinophils (%) (Auto) 0, Basophils (%) (Auto) 0, Neutrophils # (Auto) 9.0H, Lymphocytes # (Auto) 0.7L, Monocytes # (Auto) 0.7, Eosinophils # (Auto) 0.0, Basophils # (Auto) 0.0, Immature Granulocyte # (Auto) 0.7H, Sodium Level 150H, Potassium Level 4.4, Chloride Level 117H, Carbon Dioxide Level 24, Anion Gap 9, Blood Urea Nitrogen 52H, Creatinine 0.95, Estimat Glomerular Filtration Rate 57, BUN/Creatinine Ratio 55, Glucose Level 156H, Calcium Level 8.1L, Phosphorus Level 4.1, Magnesium Level 2.0 11/21/20 12:31: Glucometer 171H 11/21/20 17:48: Glucometer 134H 11/22/20 03:19: White Blood Count 10.3, Red Blood Count 2.36L, Hemoglobin 7.1L, Hematocrit 22L, Mean Corpuscular Volume 95, Mean Corpuscular Hemoglobin 30, Mean Corpuscular Hemoglobin Concent 32, Red Cell Distribution Width 16.9H, Platelet Count 239, Mean Platelet Volume 10.8, Immature Granulocyte % (Auto) 4, Neutrophils (%) (Auto) 80H, Lymphocytes (%) (Auto) 7L, Monocytes (%) (Auto) 7, Eosinophils (%) (Auto) 2, Basophils (%) (Auto) 0, Neutrophils # (Auto) 8.2H, Lymphocytes # (Auto) 0.8L, Monocytes # (Auto) 0.7, Eosinophils # (Auto) 0.2, Basophils # (Auto) 0.0, Immature Granulocyte # (Auto) 0.4H, Sodium Level 144, Potassium L evel 4.5, Chloride Level 111H, Carbon Dioxide Level 24, Anion Gap 9, Blood Urea Nitrogen 47H, Creatinine 0.84, Estimat Glomerular Filtration Rate > 60, BUN/Creatinine Ratio 56, Glucose Level 158H, Calcium Level 8.0L, Phosphorus Level 3.8, Magnesium Level 1.9 11/22/20 11:08: Glucometer 144H 11/22/20 17:15: Glucometer 121H 11/22/20 23:26: Glucometer 131H 11/23/20 05:28: Glucometer 175H 11/23/20 05:40: White Blood Count 8.0, Red Blood Count 2.40L, Hemoglobin 7.1L, Hematocrit 23L, Mean Corpuscular Volume 94, Mean Corpuscular Hemoglobin 30, Mean Corpuscular Hemoglobin Concent 31L, Red Cell Distribution Width 16.7H, Platelet Count 210, Mean Platelet Volume 11.3, Immature Granulocyte % (Auto) 3, Neutrophils (%) (Auto) 81H, Lymphocytes (%) (Auto) 9L, Monocytes (%) (Auto) 6, Eosinophils (%) (Auto) 1, Basophils (%) (Auto) 0, Neutrophils # (Auto) 6.4, Lymphocytes # (Auto) 0.8L, Monocytes # (Auto) 0.5, Eosinophils # (Auto) 0.0, Basophils # (Auto) 0.0, Immature Granulocyte # (Auto) 0.2H, Sodium Level 146H, Potassium Level 4.3, Chloride Level 112H, Carbon Dioxide Level 25, Anion Gap 9, Blood Urea Nitrogen 43H, Creatinine 0.88, Estimat Glomerular Filtration Rate > 60, BUN/Creatinine Ratio 49, Glucose Level 135H, Calcium Level 8.0L, Corrected Calcium 9.6, Phosphorus Level 3.9, Magnesium Level 1.9, Total Bilirubin 0.6, Aspartate Amino Transf (AST/SGOT) 39H, Alanine Aminotransferase (ALT/SGPT) 23, Alkaline Phosphatase 362H, Total Protein 5.1L, Albumin 2.0L 11/23/20 12:05: Glucometer 121H 11/23/20 17:45: Glucometer 121H 11/24/20 00:10: Glucometer 101 11/24/20 05:35: White Blood Count 6.4, Red Blood Count 2.39L, Hemoglobin 7.1L, Hematocrit 23L, Mean Corpuscular Volume 95, Mean Corpuscular Hemoglobin 30, Mean Corpuscular Hem oglobin Concent 31L, Red Cell Distribution Width 16.4H, Platelet Count 184, Mean Platelet Volume 10.8, Immature Granulocyte % (Auto) 2, Neutrophils (%) (Auto) 81H, Lymphocytes (%) (Auto) 9L, Monocytes (%) (Auto) 7, Eosinophils (%) (Auto) 1, Basophils (%) (Auto) 0, Neutrophils # (Auto) 5.1, Lymphocytes # (Auto) 0.6L, Monocytes # (Auto) 0.5, Eosinophils # (Auto) 0.0, Basophils # (Auto) 0.0, Immature Granulocyte # (Auto) 0.1, Sodium Level 146H, Potassium Level 4.2, Chloride Level 114H, Carbon Dioxide Level 23, Anion Gap 9, Blood Urea Nitrogen 36H, Creatinine 0.84, Estimat Glomerular Filtration Rate > 60, BUN/Creatinine Ratio 43, Glucose Level 132H, Calcium Level 8.0L, Phosphorus Level 3.8, M agnesium Level 1.9 11/24/20 12:28: Glucometer 138H 11/25/20 06:31: White Blood Count 7.7, Red Blood Count 3.35L, Hemoglobin 8.6#L, Hematocrit 28L, Mean Corpuscular Volume 82, Mean Corpuscular Hemoglobin 26, Mean Corpuscular Hemoglobin Concent 31L, Red Cell Distribution Width 16.5H, Platelet Count 294, Mean Platelet Volume 9.3, Immature Granulocyte % (Auto) 1, Neutrophils (%) (Auto) 71, Lymphocytes (%) (Auto) 16, Monocytes (%) (Auto) 9, Eosinophils (%) (Auto) 3, Basophils (%) (Auto) 1, Neutrophils # (Auto) 5.4, Lymphocytes # (Auto) 1.2, Monocytes # (Auto) 0.7, Eosinophils # (Auto) 0.2, Basophils # (Auto) 0.1, Immature Granulocyte # (Auto) 0.1, Sodium Level 145, Potassium Level 4.0, Chloride Level 113H, Carbon Dioxide Level 25, Anion Gap 7, Blood Urea Nitrogen 29H, Creatinine 0.79, Estimat Glomerular Filtration Rate > 60, BUN/Creatinine Ratio 37, Glucose Level 135H, Calcium Level 7.7L, Phosphorus Level 3.7, Magnesium Level 1.6 11/25/20 11:19: Blood Gas Puncture Site RT RAD, Blood Gas Patient Temperature 36.9, Arterial Blood pH 7.42, Arterial Blood Partial Pressure CO2 42, Arterial Blood Partial Pressure O2 71L, Arterial Blood HCO3 27, Arterial Blood Total CO2 28.0, Arterial Blood Oxygen Saturation 95, Arterial Blood Base Excess 2.6H, Adi Test YES-POS, Blood Gas Ventilator Setting NO, Blood Gas Inspired Oxygen 35% 11/25/20 11:20: Glucometer 129H 11/25/20 11:55: White Blood Count 9.3, Red Blood Count 2.78L, Hemoglobin 8.3L, Hematocrit 26L, Mean Corpuscular Volume 95, Mean Corpuscular Hemoglobin 30, Mean Corpuscular Hemoglobin Concent 32, Red Cell Distribution Width 15.9H, Platelet Count 197, Mean Platelet Volume 10.9, Lactic Acid Level 0.97, Troponin I < 0.028, B-Type Natriuretic Peptide 605.2H, Procalcitonin 0.25H 11/25/20 18:05: Troponin I 0.031H 11/25/20 23:55: Troponin I 0.028 11/26/20 03:02: White Blood Count 6.1, Red Blood Count 1.83L, Hemoglobin 5.4#*L, Hematocrit 18*L , Mean Corpuscular Volume 96, Mean Corpuscular Hemoglobin 30, Mean Corpuscular Hemoglobin Concent 31L, Red Cell Distribution Width 16.0H, Platelet Count 158, Mean Platelet Volume 11.5, Immature Granulocyte % (Auto) 1, Neutrophils (%) (A uto) 77H, Lymphocytes (%) (Auto) 15, Monocytes (%) (Auto) 7, Eosinophils (%) (Auto) 1, Basophils (%) (Auto) 0, Neutrophils # (Auto) 4.7, Lymphocytes # (Auto) 0.9L, Monocytes # (Auto) 0.4, Eosinophils # (Auto) 0.0, Basophils # (Auto) 0.0, Immature Granulocyte # (Auto) 0.1, Sodium Level 144, Potassium Level 3.6, Chloride Level 110H, Carbon Dioxide Level 25, Anion Gap 9, Blood Urea Nitrogen 25H, Creatinine 0.81, Estimat Glomerular Filtration Rate > 60, BUN/Creatinine Ratio 31, Glucose Level 98, Calcium Level 7.7L, Phosphorus Level 3.5, Magnesium Level 1.6 11/26/20 04:45: Stool Occult Blood Immunoassay NEGATIVE 11/27/20 03:30: White Blood Count 8.1, Red Blood Count 3.60L, Hemoglobin 10.8#L, Hematocrit 32L, Mean Corpuscular Volume 89, Mean Corpuscular Hemoglobin 30, Mean Corpuscular Hemoglobin Concent 34, Red Cell Distribution Width 15.9H, Platelet Count 146, Mean Platelet Volume 10.6, Immature Granulocyte % (Auto) 1, Neutrophils (%) (Auto) 79H, Lymphocytes (%) (Auto) 14, Monocytes (%) (Auto) 6, Eosinophils (%) (Auto) 1, Basophils (%) (Auto) 0, Neutrophils # (Auto) 6.4, Lymphocytes # (Auto) 1.1, Monocytes # (Auto) 0.5, Eosinophils # (Auto) 0.0, Basophils # (Auto) 0.0, Immature Granulocyte # (Auto) 0.1, Sodium Level 139, Potassium Level 2.8L, Chloride Level 104, Carbon Dioxide Level 23, Anion Gap 12, Blood Urea Nitrogen 19H, Creatinine 0.74, Estimat Glomerular Filtration Rate > 60, BUN/Creatinine Ratio 26, Glucose Level 117H, Calcium Level 7.9L, Phosphorus Level 2.9, Magnesium Level 1.4L 11/28/20 05:26: White Blood Count 7.3, Red Blood Count 3.34L, Hemoglobin 9.9L, Hematocrit 30L, Mean Corpuscular Volume 90, Mean Corpuscular Hemoglobin 30, Mean Corpuscular Hemoglobin Concent 33, Red Cell Distribution Width 16.2H, Platelet Count 141, Mean Platelet Volume 11.4, Immature Granulocyte % (Auto) 1, Neutrophils (%) (Auto) 73, Lymphocytes (%) (Auto) 19, Monocytes (%) (Auto) 6, Eosinophils (%) (Auto) 1, Basophils (%) (Auto) 0, Neutrophils # (Auto) 5.3, Lymphocytes # (Auto) 1.4, Monocytes # (Auto) 0.5, Eosinophils # (Auto) 0.0, Basophils # (Auto) 0.0, Immature Granulocyte # (Auto) 0.0, Sodium Level 139, Potassium Level 3.8, Chloride Level 106, Carbon Dioxide Level 24, Anion Gap 9, Blood Urea Nitrogen 18, Creatinine 0.75, Estimat Glomerular Filtration Rate > 60, BUN/Creatinine Ratio 24, Glucose Level 108H, Calcium Level 7.9L, Corrected Calcium 9.5, Total Bilirubin 0.6, Aspartate Amino Transf (AST/SGOT) 24, Alanine Aminotransferase (ALT/SGPT) 19, Alkaline Phosphatase 237H, Total Protein 5.1L, Albumin 2.0L 11/29/20 06:40: White Blood Count 5.9, Red Blood Count 3.25L, Hemoglobin 9.6L, Hematocrit 30L, Mean Corpuscular Volume 93, Mean Corpuscular Hemoglobin 30, Mean Corpuscular Hemoglobin Concent 32, Red Cell Distribution Width 16.2H, Platelet Count 128L, Mean Platelet Volume 11.2, Immature Granulocyte % (Auto) 1, Neutrophils (%) (Auto) 71, Lymphocytes (%) (Auto) 21, Monocytes (%) (Auto) 7, Eosinophils (%) (Auto) 1, Basophils (%) (Auto) 0, Neutrophils # (Auto) 4.2, Lymphocytes # (Auto) 1.2, Monocytes # (Auto) 0.4, Eosinophils # (Auto) 0.0, Basophils # (Auto) 0.0, Immature Granulocyte # (Auto) 0.0, Sodium Level 138, Potassium Level 3.9, Chloride Level 105, Carbon Dioxide Level 25, Anion Gap 8, Blood Urea Nitrogen 20H, Creatinine 0.71, Estimat Glomerular Filtration Rate > 60, BUN/Creatinine Ratio 28, Glucose Level 109H, Calcium Level 7.9L, Corrected Calcium 9.4, Total Bilirubin 0.5, Aspartate Amino Transf (AST/SGOT) 26, Alanine Aminotransferase (ALT/SGPT) 18, Alkaline Phosphatase 212H, Total Protein 5.1L, Albumin 2.1L, Lactic Acid Level 0.72, Procalcitonin 0.23H 11/30/20 05:15: White Blood Count 7.5, Red Blood Count 3.31L, Hemoglobin 9.7L, Hematocrit 31L, Mean Corpuscular Volume 92, Mean Corpuscular Hemoglobin 29, Mean Corpuscular Hemoglobin Concent 32, Red Cell Distribution Width 15.7H, Platelet Count 167, Mean Platelet Volume 11.1, Immature Granulocyte % (Auto) 0, Neutrophils (%) (Auto) 72, Lymphocytes (%) (Auto) 20, Monocytes (%) (Auto) 6, Eosinophils (%) (Auto) 2, Basophils (%) (Auto) 0, Neutrophils # (Auto) 5.4, Lymphocytes # (Auto) 1.5, Monocytes # (Auto) 0.5, Eosinophils # (Auto) 0.1, Basophils # (Auto) 0.0, Immature Granulocyte # (Auto) 0.0, Sodium Level 135, Potassium Level 3.7, Chloride Level 103, Carbon Dioxide Level 24, Anion Gap 8, Blood Urea Nitrogen 23H, Creatinine 0.75, Estimat Glomerular Filtration Rate > 60, BUN/Creatinine Ratio 31, Glucose Level 130H, Calcium Level 7.9L, Corrected Calcium 9.4, Total Bilirubin 0.5, Aspartate Amino Transf (AST/SGOT) 23, Alanine Aminotransferase (ALT/SGPT) 17, Alkaline Phosphatase 200H, Total Protein 5.1L, Albumin 2.1L, Prealbumin 10.8L 12/01/20 07:05: White Blood Count 6.5, Red Blood Count 3.01L, Hemoglobin 8.9L, Hematocrit 28L, Mean Corpuscular Volume 92, Mean Corpuscular Hemoglobin 30, Mean Corpuscular Hemoglobin Concent 32, Red Cell Distribution Width 15.3H, Platelet Count 160, Mean Platelet Volume 11.0, Immature Granulocyte % (Auto) 0, Neutrophils (%) (Auto) 61, Lymphocytes (%) (Auto) 29, Monocytes (%) (Auto) 9, Eosinophils (%) (Auto) 1, Basophils (%) (Auto) 0, Neutrophils # (Auto) 4.0, Lymphocytes # (Auto) 1.9, Monocytes # (Auto) 0.6, Eosinophils # (Auto) 0.1, Basophils # (Auto) 0.0, Immature Granulocyte # (Auto) 0.0, Sodium Level 133L, Potassium Level 3.9, Chloride Level 102, Carbon Dioxide Level 23, Anion Gap 8, Blood Urea Nitrogen 21H, Creatinine 0.77, Estimat Glomerular Filtration Rate > 60, BUN/Creatinine Ratio 27, Glucose Level 114H, Calcium Level 7.7L, Corrected Calcium 9.4, Total Bilirubin 0.4, Aspartate Amino Transf (AST/SGOT) 21, Alanine Aminotransferase (ALT/SGPT) 15, Alkaline Phosphatase 177H, Total Protein 4.7L, Albumin 1.9L 12/02/20 04:45: White Blood Count 5.7, Red Blood Count 2.96L, Hemoglobin 8.6L, Hematocrit 27L, Mean Corpuscular Volume 92, Mean Corpuscular Hemoglobin 29, Mean Corpuscular Hemoglobin Concent 32, Red Cell Distribution Width 15.0H, Platelet Count 143, Mean Platelet Volume 11.0, Immature Granulocyte % (Auto) 1, Neutrophils (%) (Auto) 57, Lymphocytes (%) (Auto) 31, Monocytes (%) (Auto) 10, Eosinophils (%) (Auto) 2, Basophils (%) (Auto) 0, Neutrophils # (Auto) 3.3, Lymphocytes # (Auto) 1.8, Monocytes # (Auto) 0.5, Eosinophils # (Auto) 0.1, Basophils # (Auto) 0.0, Immature Granulocyte # (Auto) 0.0, Sodium Level 133L, Potassium Level 3.9, Chloride Level 100, Carbon Dioxide Level 24, Anion Gap 9, Blood Urea Nitrogen 19H, Creatinine 0.80, Estimat Glomerular Filtration Rate > 60, BUN/Creatinine Ratio 24, Glucose Level 109H, Calcium Level 7.9L, Corrected Calcium 9.5, Total Bilirubin 0.4, Aspartate Amino Transf (AST/SGOT) 20, Alanine Aminotransferase (ALT/SGPT) 15, Alkaline Phosphatase 180H, Total Protein 4.9L, Albumin 2.0L 12/03/20 06:15: White Blood Count 5.2, Red Blood Count 2.98L, Hemoglobin 8.7L, Hematocrit 28L, Mean Corpuscular Volume 92, Mean Corpuscular Hemoglobin 29, Mean Corpuscular Hemoglobin Concent 32, Red Cell Distribution Width 14.7H, Platelet Count 153, Mean Platelet Volume 10.3, Immature Granulocyte % (Auto) 1, Neutrophils (%) (Auto) 46, Lymphocytes (%) (Auto) 40, Monocytes (%) (Auto) 11, Eosinophils (%) (Auto) 2, Basophils (%) (Auto) 0, Neutrophils # (Auto) 2.4, Lymphocytes # (Auto) 2.1, Monocytes # (Auto) 0.6, Eosinophils # (Auto) 0.1, Basophils # (Auto) 0.0, Immature Granulocyte # (Auto) 0.0, Sodium Level 131L, Potassium Level 4.0, Chloride Level 99, Carbon Dioxide Level 24, Anion Gap 8, Blood Urea Nitrogen 14, Creatinine 0.74, Estimat Glomerular Filtration Rate > 60, BUN/Creatinine Ratio 19, Glucose Level 116H, Calcium Level 7.8L, Corrected Calcium 9.3, Total Bilirubin 0.3, Aspartate Amino Transf (AST/SGOT) 20, Alanine Aminotransferase (ALT/SGPT) 16, Alkaline Phosphatase 205H, Total Protein 4.9L, Albumin 2.1L 12/04/20 05:35: White Blood Count 4.9, Red Blood Count 2.89L, Hemoglobin 8.4L, Hematocrit 26L, Mean Corpuscular Volume 91, Mean Corpuscular Hemoglobin 29, Mean Corpuscular Hemoglobin Concent 32, Red Cell Distribution Width 14.6H, Platelet Count 188, Mean Platelet Volume 10.0, Sodium Level 130L, Potassium Level 4.2, Chloride Level 99, Carbon Dioxide Level 24, Anion Gap 7, Blood Urea Nitrogen 12, Creatinine 0.71, Estimat Glomerular Filtration Rate > 60, BUN/Creatinine Ratio 17, Glucose Level 111H, Calcium Level 7.9L, Corrected Calcium 9.4, Total Bilir ubin 0.3, Aspartate Amino Transf (AST/SGOT) 22, Alanine Aminotransferase (ALT/SGPT) 18, Alkaline Phosphatase 219H, Total Protein 5.0L, Albumin 2.1L 12/05/20 04:55: White Blood Count 5.7, Red Blood Count 2.85L, Hemoglobin 8.4L, Hematocrit 26L, Mean Corpuscular Volume 91, Mean Corpuscular Hemoglobin 30, Mean Corpuscular Hemoglobin Concent 32, Red Cell Distribution Width 14.6H, Platelet Count 220, Mean Platelet Volume 9.8, Immature Granulocyte % (Auto) 1, Neutrophils (%) (Auto) 51, Lymphocytes (%) (Auto) 36, Monocytes (%) (Auto) 11, Eosinophils (%) (Auto) 1, Basophils (%) (Auto) 0, Neutrophils # (Auto) 2.9, Lymphocytes # (Auto) 2.0, Monocytes # (Auto) 0.6, Eosinophils # (Auto) 0.1, Basophils # (Auto) 0.0, Immature Granulocyte # (Auto) 0.0, Sodium Level 129L, Potassium Level 4.4, Chloride Level 97L, Carbon Dioxide Level 23, Anion Gap 9, Blood Urea Nitrogen 12, Creatinine 0.74, Estimat Glomerular Filtration Rate > 60, BUN/Creatinine Ratio 16, Glucose Level 126H, Calcium Level 7.8L, Corrected Calcium 9.3, Total Bilirubin 0.3, Aspartate Amino Transf (AST/SGOT) 25, Alanine Aminotransferase (ALT/SGPT) 20, Alkaline Phosphatase 211H, B-Type Natriuretic Peptide 30.5, Total Protein 5.2L, Albumin 2.1L 12/06/20 05:15: White Blood Count 5.5, Red Blood Count 2.63L, Hemoglobin 7.8L, Hematocrit 24L, Mean Corpuscular Volume 91, Mean Corpuscular Hemoglobin 30, Mean Corpuscular Hemoglobin Concent 33, Red Cell Distribution Width 14.6H, Platelet Count 224, Mean Platelet Volume 9.7, Sodium Level 127L, Potassium Level 4.1, Chloride Level 93L, Carbon Dioxide Level 25, Anion Gap 9, Blood Urea Nitrogen 11, Creatinine 0.76, Estimat Glomerular Filtration Rate > 60, BUN/Creatinine Ratio 14, Glucose Level 110H, Calcium Level 7.7L, Corrected Calcium 9.3, Total Bilirubin 0.3, Aspartate Amino Transf (AST/SGOT) 26, Alanine Aminotransferase (ALT/SGPT) 17, Alkaline Phosphatase 182H, Total Protein 5.1L, Albumin 2.0L 12/07/20 05:35: White Blood Count 5.7, Red Blood Count 3.03L, Hemoglobin 9.0L, Hematocrit 27L, Mean Corpuscular Volume 90, Mean Corpuscular Hemoglobin 30, Mean Corpuscular Hemoglobin Concent 33, Red Cell Distribution Width 14.5, Platelet Count 224, Mean Platelet Volume 9.7, Immature Granulocyte % (Auto) 1, Neutrophils (%) (Auto) 47, Lymphocytes (%) (Auto) 36, Monocytes (%) (Auto) 14H, Eosinophils (%) (Auto) 2, Basophils (%) (Auto) 0, Neutrophils # (Auto) 2.6, Lymphocytes # (Auto) 2.1, Monocytes # (Auto) 0.8, Eosinophils # (Auto) 0.1, Basophils # (Auto) 0.0, Immature Granulocyte # (Auto) 0.1, Sodium Level 127L, Potassium Level 4.3, Chloride Level 94L, Carbon Dioxide Level 23, Anion Gap 10, Blood Urea Nitrogen 11, Creatinine 0.72, Estimat Glomerular Filtration Rate > 60, BUN/Creatinine Ratio 15, Glucose Level 127H, Calcium Level 7.9L, Corrected Calcium 9.4, Total Bilirubin 0.3, Aspartate Amino Transf (AST/SGOT) 22, Alanine Aminotransferase (ALT/SGPT) 21, Alkaline Phosphatase 168H, Total Protein 5.4L, Albumin 2.1L Microbiology 11/16/20 MRSA Screen - Final, Complete MRSA not isolated 11/15/20 Gram Stain - Final, Resulted 11/15/20 Anaerobic Culture - Final, Resulted No anaerobes isolated 11/15/20 Surgical Culture - Final, Resulted Bobbi glabrata Bobbi species 11/15/20 Fungal Culture 1 - Preliminary, Resulted Bobbi glabrata Bobbi species Pending Labs Microbiology Date/Time Source Procedure Growth Status 11/16/20 09:00 Nasal MRSA Screen - Final MRSA not isolated Complete 11/15/20 16:10 Sputum Endotracheal Gram Stain - Final Complete 11/15/20 16:10 Sputum Culture - Final YEAST Staph, Coag Neg ([employer]) Complete 11/15/20 13:55 Wound Abdominal Incision Gram Stain - Final Resulted 11/15/20 13:55 Wound Abdominal Incision Anaerobic Culture - Final No anaerobes isolated Resulted 11/15/20 13:55 Surgical Culture - Final Bobbi glabrata Bobbi species Resulted 11/15/20 13:55 Fungal Culture 1 - Preliminary Bobbi glabrata Bobbi species Resulted Laboratory Tests 11/15/20 12:25: Lab Scanned Report Referred Lab Report 11/15/20 17:00: White Blood Count 29.0, Red Blood Count 2.90, Hemoglobin 9.0, Hematocrit 27, Angelita n Corpuscular Volume 93, Mean Corpuscular Hemoglobin 31, Mean Corpuscular Hemoglobin Concent 33, Red Cell Distribution Width 15.8, Platelet Count 503, Mean Platelet Volume 9.9, Immature Granulocyte % (Auto) 5, Neutrophils (%) (Auto) 84, Lymphocytes (%) (Auto) 4, Monocytes (%) (Auto) 7, Eosinophils (%) (Auto) 1, Basophils (%) (Auto) 0, Neutrophils # (Auto) 24.4, Lymphocytes # (Auto) 1.0, Monocytes # (Auto) 1.9, Eosinophils # (Auto) 0.2, Basophils # (Auto) 0.1, Immature Granulocyte # (Auto) 1.3, Sodium Level 135, Potassium Level 6.4, Chloride Level 104, Carbon Dioxide Level 19, Anion Gap 12, Blood Urea Nitrogen 61, Creatinine 1.98, Estimat Glomerular Filtration Rate 25, BUN/Creatinine Ratio 31, Glucose Level 146, Calcium Level 6.8, Corrected Calcium 8.7, Magnesium Level 2.4, Total Bilirubin 1.0, Aspartate Amino Transf (AST/SGOT) 67, Alanine Aminotransferase (ALT/SGPT) 29, Alkaline Phosphatase 166, Total Protein 3.8, Albumin 1.6 11/15/20 17:10: Blood Gas Puncture Site UNK, Blood Gas Patient Temperature 35.5, Arterial Blood pH 7.27, Arterial Blood Partial Pressure CO2 40, Arterial Blood Partial Pressure O2 78, Arterial Blood HCO3 18, Arterial Blood Total CO2 19.6, Arterial Blood Oxygen Saturation 95, Arterial Blood Base Excess -7.6, Adi Test POSITIVE, Blood Gas Ventilator Setting YES, Blood Gas Inspired Oxygen 70% 11/15/20 17:36: Glucometer 144 1/22/21 21:50: White Blood Count 32.2, Red Blood Count 2.82, Hemoglobin 8.8, Hematocrit 26, Mean Corpuscular Volume 93, Mean Corpuscular Hemoglobin 31, Mean Corpuscular Hemoglobin Concent 34, Red Cell Distribution Width 15.9, Platelet Count 541, Mean Platelet Volume 10.1, Immature Granulocyte % (Auto) 4, Neutrophils (%) (Auto) 87, Lymphocytes (%) (Auto) 4, Monocytes (%) (Auto) 5, Eosinophils (%) (Auto) 0, Basophils (%) (Auto) 0, Neutrophils # (Auto) 28.0, Lymphocytes # (Auto) 1.1, Monocytes # (Auto) 1.6, Eosinophils # (Auto) 0.0, Basophils # (Auto) 0.1, Immature Granulocyte # (Auto) 1.3, Sodium Level 131, Potassium Level 6.2, Chloride Level 103, Carbon Dioxide Level 16, Anion Gap 12, Blood Urea Nitrogen 63, Creatinine 2.01, Estimat Glomerular Filtration Rate 24, BUN/Creatinine Ratio 31, Glucose Level 230, Calcium Level 7.3, Corrected Calcium 9.2, Total Bilirubin 1.0, Aspartate Amino Transf (AST/SGOT) 67, Alanine Aminotransferase (ALT/SGPT) 29, Alkaline Phosphatase 152, Total Protein 3.7, Albumin 1.6 11/16/20 00:51: Glucometer 253 11/16/20 03:30: White Blood Count 30.5, Red Blood Count 2.57, Hemoglobin 7.9, Hematocrit 24, Mean Corpuscular Volume 92, Mean Corpuscular Hemoglobin 31, Mean Corpuscular Hem oglobin Concent 33, Red Cell Distribution Width 16.1, Platelet Count 587, Mean Platelet Volume 10.4, Immature Granulocyte % (Auto) 5, Neutrophils (%) (Auto) 85, Lymphocytes (%) (Auto) 3, Monocytes (%) (Auto) 6, Eosinophils (%) (Auto) 0, Basophils (%) (Auto) 0, Neutrophils # (Auto) 26.0, Lymphocytes # (Auto) 1.0, Monocytes # (Auto) 1.8, Eosinophils # (Auto) 0.0, Basophils # (Auto) 0.1, Immature Granulocyte # (Auto) 1.6, Sodium Level 133, Potassium Level 5.5, Chloride Level 104, Carbon Dioxide Level 19, Anion Gap 10, Blood Urea Nitrogen 63, Creatinine 1.93, Estimat Glomerular Filtration Rate 25, BUN/Creatinine Ratio 33, Glucose Level 254, Calcium Level 7.3, Corrected Calcium 9.4, Total Bilirubin 0.9, Aspartate Amino Transf (AST/SGOT) 55, Alanine Aminotransferase (ALT/SGPT) 27, Alkaline Phosphatase 148, Total Protein 3.5, Albumin 1.4, Blood Gas Puncture Site RIGHT RADIAL, Blood Gas Patient Temperature 36.4, Arterial Blood pH 7.35, Arterial Blood Partial Pressure CO2 37, Arterial Blood Partial Pressure O2 97, Arterial Blood HCO3 20, Arterial Blood Total CO2 21.5, Arterial Blood Oxygen Saturation 98, Arterial Blood Base Excess -4.4, Adi Test YES-POS, Blood Gas Ventilator Setting YES, Blood Gas Inspired Oxygen 70%, Phosphorus Level 6.1, Magnesium Level 2.2 11/16/20 11:07: Glucometer 211 11/16/20 17:29: Glucometer 177 11/16/20 23:17: Glucometer 151 11/17/20 04:50: White Blood Count 16.9, Red Blood Count 2.08, Hemoglobin 6.6, Hematocrit 21, Mean Corpuscular Volume 100, Mean Corpuscular Hemoglobin 32, Mean Corpuscular Hemoglobin Concent 32, Red Cell Distribution Width 16.8, Platelet Count 336, Mean Platelet Volume 10.2, Immature Granulocyte % (Auto) 5, Neutrophils (%) (Auto) 84, Lymphocytes (%) (Auto) 5, Monocytes (%) (Auto) 7, Eosinophils (%) (Auto) 0, Basophils (%) (Auto) 0, Neutrophils # (Auto) 14.1, Lymphocytes # (Auto) 0.8, Monocytes # (Auto) 1.1, Eosinophils # (Auto) 0.0, Basophils # (Auto) 0.1, Immature Granulocyte # (Auto) 0.8, Blood Gas Puncture Site RIGHT RADIAL, Blood Gas Patient Temperature 36.4, Arterial Blood pH 7.33, Arterial Blood Partial Pressure CO2 40, Arterial Blood Partial Pressure O2 122, Arterial Blood HCO3 21, Arterial Blood Total CO2 22.2, Arterial Blood Oxygen Saturation 100, Arterial Blood Base Excess -4.1, Adi Test YES-POS, Blood Gas Ventilator Setting YES, Blood Gas Inspired Oxygen 36%, Sodium Level 136, Potassium Level 4.5, Chloride Level 106, Carbon Dioxide Level 19, Anion Gap 11, Blood Urea Nitrogen 72, Creatinine 1.79, Estimat Glomerular Filtration Rate 28, BUN/Creatinine Ratio 40, Glucose Level 147, Calcium Level 7.2, Magnesium Level 2.4 11/17/20 05:40: Phosphorus Level 4.7 11/17/20 11:40: Glucometer 136 11/17/20 17:05: Glucometer 127 11/17/20 18:05: Hemoglobin 7.4, Hematocrit 22 11/17/20 23:39: Glucometer 138 11/18/20 03:01: Phosphorus Level 4.4 11/18/20 03:10: White Blood Count 14.8, Red Blood Count 2.57, Hemoglobin 7.8, Hematocrit 23, Mean Corpuscular Volume 91, Mean Corpuscular Hemoglobin 30, Mean Corpuscular Hemoglobin Concent 33, Red Cell Distribution Width 16.9, Platelet Count 271, Mean Platelet Volume 10.2, Immature Granulocyte % (Auto) 6, Neutrophils (%) (Auto) 83, Lymphocytes (%) (Auto) 5, Monocytes (%) (Auto) 6, Eosinophils (%) (Auto) 0, Basophils (%) (Auto) 0, Neutrophils # (Auto) 12.4, Lymphocytes # (Auto) 0.7, Monocytes # (Auto) 0.9, Eosinophils # (Auto) 0.0, Basophils # (Auto) 0.0, Immature Granulocyte # (Auto) 0.8, Blood Gas Puncture Site RIGHT ART LINE, Blood Gas Patient Temperature 36.3, Arterial Blood pH 7.38, Arterial Blood Partial Pressure CO2 35, Arterial Blood Partial Pressure O2 94, Arterial Blood H CO3 21, Arterial Blood Total CO2 21.8, Arterial Blood Oxygen Saturation 99, Arterial Blood Base Excess -3.7, Adi Test ART LINE, Blood Gas Ventilator Setting YES, Blood Gas Inspired Oxygen 30%, Sodium Level 139, Potassium Level 4.3, Chloride Level 110, Carbon Dioxide Level 18, Anion Gap 11, Blood Urea Nitrogen 70, Creatinine 1.51, Estimat Glomerular Filtration Rate 34, BUN/Creatin ine Ratio 46, Glucose Level 135, Calcium Level 7.4, Magnesium Level 2.3 11/18/20 05:45: Blood Gas Puncture Site RIGHT ARTLINE, Blood Gas Patient Temperature 36.4, Arterial Blood pH 7.32, Arterial Blood Partial Pressure CO2 42, Arterial Blood Partial Pressure O2 75, Arterial Blood HCO3 21, Arterial Blood Total CO2 22.6, Arterial Blood Oxygen Saturation 95, Arterial Blood Base Excess -3.9, Adi Test ART LINE, Blood Gas Ventilator Setting YES, Blood Gas Inspired Oxygen 28% 11/18/20 11:49: Glucometer 113 11/18/20 17:03: Glucometer 107 11/18/20 23:10: Glucometer 141 11/19/20 02:28: White Blood Count 17.0, Red Blood Count 2.69, Hemoglobin 8.2, Hematocrit 25, Mean Corpuscular Volume 91, Mean Corpuscular Hemoglobin 31, Mean Corpuscular Hemoglobin Concent 34, Red Cell Distribution Width 17.0, Platelet Count 308, Mean Platelet Volume 10.2, Immature Granulocyte % (Auto) 8, Neutrophils (%) (Auto) 80, Lymphocytes (%) (Auto) 5, Monocytes (%) (Auto) 7, Eosinophils (%) (Auto) 0, Basophils (%) (Auto) 1, Neutrophils # (Auto) 13.6, Lymphocytes # (Auto) 0.8, Monocytes # (Auto) 1.2, Eosinophils # (Auto) 0.0, Basophils # (Auto) 0.1, Immature Granulocyte # (Auto) 1.4, Sodium Level 146, Potassium Level 4.3, Chloride Level 115, Carbon Dioxide Level 22, Anion Gap 9, Blood Urea Nitrogen 61, Creatinine 1.22, Estimat Glomerular Filtration Rate 43, BUN/Creatinine Ratio 50, Glucose Level 155, Calcium Level 7.8, Phosphorus Level 4.4, Magnesium Level 2.3 11/19/20 03:30: Blood Gas Puncture Site RIGHT RADIAL, Blood Gas Patient Temperature 36.4, Yashira rial Blood pH 7.37, Arterial Blood Partial Pressure CO2 41, Arterial Blood Partial Pressure O2 68, Arterial Blood HCO3 23, Arterial Blood Total CO2 24.3, Arterial Blood Oxygen Saturation 99, Arterial Blood Base Excess -1.6, Adi Test YES-POS, Blood Gas Ventilator Setting NO, Blood Gas Inspired Oxygen 35% 11/19/20 12:32: Glucometer 198 11/19/20 17:13: Glucometer 153 11/20/20 00:01: Glucometer 151 11/20/20 01:45: White Blood Count 15.5, Red Blood Count 2.42, Hemoglobin 7.3, Hematocrit 22, Mean Corpuscular Volume 93, Mean Corpuscular Hemoglobin 30, Mean Corpuscular Hemoglobin Concent 33, Red Cell Distribution Width 17.1, Platelet Count 296, Mean Platelet Volume 10.3, Immature Granulocyte % (Auto) 9, Neutrophils (%) (Auto) 81, Lymphocytes (%) (Auto) 5, Monocytes (%) (Auto) 5, Eosinophils (%) (Auto) 0, Basophils (%) (Auto) 0, Neutrophils # (Auto) 12.5, Lymphocytes # (Auto) 0.7, Monocytes # (Auto) 0.8, Eosinophils # (Auto) 0.0, Basophils # (Auto) 0.0, Immature Granulocyte # (Auto) 1.3, Neutrophils % (Manual) 82, Lymphocytes % (Manual) 6, Monocytes % (Manual) 4, Band Neutrophils 8, Blood Morphology Comment NORMAL, Sodium Level 151, Potassium Level 4.3, Chloride Level 118, Carbon Dioxide Level 25, Anion Gap 8, Blood Urea Nitrogen 57, Creatinine 1.00, Estimat Glomerular Filtration Rate 54, BUN/Creatinine Ratio 57, Glucose Level 167, Calcium Level 8.0, Phosphorus Level 4.0, Magnesium Level 2.4 11/20/20 11:13: Glucometer 164 11/20/20 17:47: Glucometer 140 11/21/20 02:30: White Blood Count 11.2, Red Blood Count 2.43, Hemoglobin 7.3, Hematocrit 23, Mean Corpuscular Volume 95, Mean Corpuscular Hemoglobin 30, Mean Corpuscular Hemoglobin Concent 32, Red Cell Distribution Width 17.2, Platelet Count 270, Mean Platelet Volume 10.3, Immature Granulocyte % (Auto) 6, Neutrophils (%) (Auto) 80, Lymphocytes (%) (Auto) 6, Monocytes (%) (Auto) 7, Eosinophils (%) (Auto) 0, Basophils (%) (Auto) 0, Neutrophils # (Auto) 9.0, Lymphocytes # (Auto) 0.7, Monocytes # (Auto) 0.7, Eosinophils # (Auto) 0.0, Basophils # (Auto) 0.0, Immature Granulocyte # (Auto) 0.7, Sodium Level 150, Potassium Level 4.4, Chloride Level 117, Carbon Dioxide Level 24, Anion Gap 9, Blood Urea Nitrogen 52, Creatinine 0.95, Estimat Glomerular Filtration Rate 57, BUN/Creatinine Ratio 55, Glucose Level 156, Calcium Level 8.1, Phosphorus Level 4.1, Magnesium Level 2.0 11/21/20 12:31: Glucometer 171 11/21/20 17:48: Glucometer 134 11/22/20 03:19: White Blood Count 10.3, Red Blood Count 2.36, Hemoglobin 7.1, Hematocrit 22, Mean Corpuscular Volume 95, Mean Corpuscular Hemoglobin 30, Mean Corpuscular Hemoglobin Concent 32, Red Cell Distribution Width 16.9, Platelet Count 239, Mean Platelet Volume 10.8, Immature Granulocyte % (Auto) 4, Neutrophils (%) (Auto) 80, Lymphocytes (%) (Auto) 7, Monocytes (%) (Auto) 7, Eosinophils (%) (Auto) 2, Basophils (%) (Auto) 0, Neutrophils # (Auto) 8.2, Lymphocytes # (Auto) 0.8, Monocytes # (Auto) 0.7, Eosinophils # (Auto) 0.2, Basophils # (Auto) 0.0, Immature Granulocyte # (Auto) 0.4, Sodium Level 144, Potassium Level 4.5, Chloride Level 111, Carbon Dioxide Level 24, Anion Gap 9, Blood Urea Nitrogen 47, Creatinine 0.84, Estimat Glomerular Filtration Rate > 60, BUN/Creatinine Ratio 56, Glucose Level 158, Calcium Level 8.0, Phosphorus Level 3.8, Magnesium Level 1.9 11/22/20 11:08: Glucometer 144 11/22/20 17:15: Glucometer 121 11/22/20 23:26: Glucometer 131 11/23/20 05:28: Glucometer 175 11/23/20 05:40: White Blood Count 8.0, Red Blood Count 2.40, Hemoglobin 7.1, Hematocrit 23, Mean Corpuscular Volume 94, Mean Corpuscular Hemoglobin 30, Mean Corpuscular Hemoglobin Concent 31, Red Cell Distribution Width 16.7, Platelet Count 210, Mean Platelet Volume 11.3, Immature Granulocyte % (Auto) 3, Neutrophils (%) (Auto) 81, Lymphocytes (%) (Auto) 9, Monocytes (%) (Auto) 6, Eosinophils (%) (Auto) 1, Basophils (%) (Auto) 0, Neutrophils # (Auto) 6.4, Lymphocytes # (Auto) 0.8, Monocytes # (Auto) 0.5, Eosinophils # (Auto) 0.0, Basophils # (Auto) 0.0, Immature Granulocyte # (Auto) 0.2, Sodium Level 146, Potassium Level 4.3, Chl oride Level 112, Carbon Dioxide Level 25, Anion Gap 9, Blood Urea Nitrogen 43, Creatinine 0.88, Estimat Glomerular Filtration Rate > 60, BUN/Creatinine Ratio 49, Glucose Level 135, Calcium Level 8.0, Corrected Calcium 9.6, Phosphorus Level 3.9, Magnesium Level 1.9, Total Bilirubin 0.6, Aspartate Amino Transf (AST/SGOT) 39, Alanine Aminotransferase (ALT/SGPT) 23, Alkaline Phosphatase 362, Total Protein 5.1, Albumin 2.0 11/23/20 12:05: Glucometer 121 11/23/20 17:45: Glucometer 121 11/24/20 00:10: Glucometer 101 11/24/20 05:35: White Blood Count 6.4, Red Blood Count 2.39, Hemoglobin 7.1, Hematocrit 23, Mean Corpuscular Volume 95, Mean Corpuscular Hemoglobin 30, Mean Corpuscular Hem oglobin Concent 31, Red Cell Distribution Width 16.4, Platelet Count 184, Mean Platelet Volume 10.8, Immature Granulocyte % (Auto) 2, Neutrophils (%) (Auto) 81, Lymphocytes (%) (Auto) 9, Monocytes (%) (Auto) 7, Eosinophils (%) (Auto) 1, Basophils (%) (Auto) 0, Neutrophils # (Auto) 5.1, Lymphocytes # (Auto) 0.6, Monocytes # (Auto) 0.5, Eosinophils # (Auto) 0.0, Basophils # (Auto) 0.0, Immature Granulocyte # (Auto) 0.1, Sodium Level 146, Potassium Level 4.2, Chloride Level 114, Carbon Dioxide Level 23, Anion Gap 9, Blood Urea Nitrogen 36, Creatinine 0.84, Estimat Glomerular Filtration Rate > 60, BUN/Creatinine Ratio 43, Glucose Level 132, Calcium Level 8.0, Phosphorus Level 3.8, Magnesium Level 1.9 11/24/20 12:28: Glucometer 138 11/25/20 06:31: White Blood Count 7.7, Red Blood Count 3.35, Hemoglobin 8.6, Hematocrit 28, Mean Corpuscular Volume 82, Mean Corpuscular Hemoglobin 26, Mean Corpuscular Hemoglobin Concent 31, Red Cell Distribution Width 16.5, Platelet Count 294, M edison Platelet Volume 9.3, Immature Granulocyte % (Auto) 1, Neutrophils (%) (Auto) 71, Lymphocytes (%) (Auto) 16, Monocytes (%) (Auto) 9, Eosinophils (%) (Auto) 3, Basophils (%) (Auto) 1, Neutrophils # (Auto) 5.4, Lymphocytes # (Auto) 1.2, Monocytes # (Auto) 0.7, Eosinophils # (Auto) 0.2, Basophils # (Auto) 0.1, Immature Granulocyte # (Auto) 0.1, Sodium Level 145, Potassium Level 4.0, Chloride Level 113, Carbon Dioxide Level 25, Anion Gap 7, Blood Urea Nitrogen 29, Creatinine 0.79, Estimat Glomerular Filtration Rate > 60, BUN/Creatinine Ratio 37, Glucose Level 135, Calcium Level 7.7, Phosphorus Level 3.7, Magnesium Level 1.6 11/25/20 11:19: Blood Gas Puncture Site RT RAD, Blood Gas Patient Temperature 36.9, Arterial Blood pH 7.42, Arterial Blood Partial Pressure CO2 42, Arterial Blood Partial Pressure O2 71, Arterial Blood HCO3 27, Arterial Blood Total CO2 28.0, Arterial Blood Oxygen Saturation 95, Arterial Blood Base Excess 2.6, Adi Test YES-POS, Blood Gas Ventilator Setting NO, Blood Gas Inspired Oxygen 35% 11/25/20 11:20: Glucometer 129 11/25/20 11:55: White Blood Count 9.3, Red Blood Count 2.78, Hemoglobin 8.3, Hematocrit 26, Mean Corpuscular Volume 95, Mean Corpuscular Hemoglobin 30, Mean Corpuscular Hemoglobin Concent 32, Red Cell Distribution Width 15.9, Platelet Count 197, Mean Platelet Volume 10.9, Lactic Acid Level 0.97, Troponin I < 0.028, B-Type Natriuretic Peptide 605.2, Procalcitonin 0.25 11/25/20 18:05: Troponin I 0.031 11/25/20 23:55: Troponin I 0.028 11/26/20 03:02: White Blood Count 6.1, Red Blood Count 1.83, Hemoglobin 5.4, Hematocrit 18, Mean Corpuscular Volume 96, Mean Corpuscular Hemoglobin 30, Mean Corpuscular Hemoglobin Concent 31, Red Cell Distribution Width 16.0, Platelet Count 158, Mean Platelet Volume 11.5, Immature Granulocyte % (Auto) 1, Neutrophils (%) (Auto) 77, Lymphocytes (%) (Auto) 15, Monocytes (%) (Auto) 7, Eosinophils (%) (Auto) 1, Basophils (%) (Auto) 0, Neutrophils # (Auto) 4.7, Lymphocytes # (Auto) 0.9, Monocytes # (Auto) 0.4, Eosinophils # (Auto) 0.0, Basophils # (Auto) 0.0, Immature Granulocyte # (Auto) 0.1, Sodium Level 144, Potassium Level 3.6, Chloride Level 110, Carbon Dioxide Level 25, Anion Gap 9, Blood Urea Nitrogen 25, Creatinine 0.81, Estimat Glomerular Filtration Rate > 60, BUN/Creatinine Ratio 31, Glucose Level 98, Calcium Level 7.7, Phosphorus Level 3.5, Magnesium Level 1.6 11/26/20 04:45: Stool Occult Blood Immunoassay NEGATIVE 11/27/20 03:30: White Blood Count 8.1, Red Blood Count 3.60, Hemoglobin 10.8, Hematocrit 32, Mean Corpuscular Volume 89, Mean Corpuscular Hemoglobin 30, Mean Corpuscular Hemoglobin Concent 34, Red Cell Distribution Width 15.9, Platelet Count 146, Mean Platelet Volume 10.6, Immature Granulocyte % (Auto) 1, Neutrophils (%) (Auto) 79, Lymphocytes (%) (Auto) 14, Monocytes (%) (Auto) 6, Eosinophils (%) (Auto) 1, Basophils (%) (Auto) 0, Neutrophils # (Auto) 6.4, Lymphocytes # (Auto) 1.1, Monocytes # (Auto) 0.5, Eosinophils # (Auto) 0.0, Basophils # (Auto) 0.0, Immature Granulocyte # (Auto) 0.1, Sodium Level 139, Potassium Level 2.8, Chloride Level 104, Carbon Dioxide Level 23, Anion Gap 12, Blood Urea Nitrogen 19, Creatinine 0.74, Estimat Glomerular Filtration Rate > 60, BUN/Creatinine Ratio 26, Glucose Level 117, Calcium Level 7.9, Phosphorus Level 2.9, Magnesium Level 1.4 11/28/20 05:26: White Blood Count 7.3, Red Blood Count 3.34, Hemoglobin 9.9, Hematocrit 30, Mean Corpuscular Volume 90, Mean Corpuscular Hemoglobin 30, Mean Corpuscular Hemoglobin Concent 33, Red Cell Distribution Width 16.2, Platelet Count 141, Mean Platelet Volume 11.4, Immature Granulocyte % (Auto) 1, Neutrophils (%) (Auto) 73, Lymphocytes (%) (Auto) 19, Monocytes (%) (Auto) 6, Eosinophils (%) (Auto) 1, Basophils (%) (Auto) 0, Neutrophils # (Auto) 5.3, Lymphocytes # (Auto) 1.4, Monocytes # (Auto) 0.5, Eosinophils # (Auto) 0.0, Basophils # (Auto) 0.0, Immature Granulocyte # (Auto) 0.0, Sodium Level 139, Potassium Level 3.8, Chloride Level 106, Carbon Dioxide Level 24, Anion Gap 9, Blood Urea Nitrogen 18, Creatinine 0.75, Estimat Glomerular Filtration Rate > 60, BUN/Creatinine Ratio 24, Glucose Level 108, Calcium Level 7.9, Corrected Calcium 9.5, Total Cheko irubin 0.6, Aspartate Amino Transf (AST/SGOT) 24, Alanine Aminotransferase (ALT/SGPT) 19, Alkaline Phosphatase 237, Total Protein 5.1, Albumin 2.0 11/29/20 06:40: White Blood Count 5.9, Red Blood Count 3.25, Hemoglobin 9.6, Hematocrit 30, Mean Corpuscular Volume 93, Mean Corpuscular Hemoglobin 30, Mean Corpuscular Hemoglobin Concent 32, Red Cell Distribution Width 16.2, Platelet Count 128, Mean Platelet Volume 11.2, Immature Granulocyte % (Auto) 1, Neutrophils (%) (Auto) 71, Lymphocytes (%) (Auto) 21, Monocytes (%) (Auto) 7, Eosinophils (%) (Auto) 1, Basophils (%) (Auto) 0, Neutrophils # (Auto) 4.2, Lymphocytes # (Auto) 1.2, Monocytes # (Auto) 0.4, Eosinophils # (Auto) 0.0, Basophils # (Auto) 0.0, Immature Granulocyte # (Auto) 0.0, Sodium Level 138, Potassium Level 3.9, Chloride Level 105, Carbon Dioxide Level 25, Anion Gap 8, Blood Urea Nitrogen 20, Creatinine 0.71, Estimat Glomerular Filtration Rate > 60, BUN/Creatinine Ratio 28, Glucose Level 109, Calcium Level 7.9, Corrected Calcium 9.4, Total Bilirubin 0.5, Aspartate Amino Transf (AST/SGOT) 26, Alanine Aminotransferase (ALT/SGPT) 18, Alkaline Phosphatase 212, Total Protein 5.1, Albumin 2.1, Lactic Acid Level 0.72, Procalcitonin 0.23 11/30/20 05:15: White Blood Count 7.5, Red Blood Count 3.31, Hemoglobin 9.7, Hematocrit 31, Mean Corpuscular Volume 92, Mean Corpuscular Hemoglobin 29, Mean Corpuscular Hemoglobin Concent 32, Red Cell Distribution Width 15.7, Platelet Count 167, Mean Platelet Volume 11.1, Immature Granulocyte % (Auto) 0, Neutrophils (%) (Auto) 72, Lymphocytes (%) (Auto) 20, Monocytes (%) (Auto) 6, Eosinophils (%) (Auto) 2, Basophils (%) (Auto) 0, Neutrophils # (Auto) 5.4, Lymphocytes # (Auto) 1.5, Monocytes # (Auto) 0.5, Eosinophils # (Auto) 0.1, Basophils # (Auto) 0.0, Immature Granulocyte # (Auto) 0.0, Sodium Level 135, Potassium Level 3.7, Chloride Level 103, Carbon Dioxide Level 24, Anion Gap 8, Blood Urea Nitrogen 23, Creatinine 0.75, Estimat Glomerular Filtration Rate > 60, BUN/Creatinine Ratio 31, Glucose Level 130, Calcium Level 7.9, Corrected Calcium 9.4, Total Bilirubin 0.5, Aspartate Amino Transf (AST/SGOT) 23, Alanine Aminotransferase (ALT/SGPT) 17, Alkaline Phosphatase 200, Total Protein 5.1, Albumin 2.1, Prealbumin 10.8 12/01/20 07:05: White Blood Count 6.5, Red Blood Count 3.01, Hemoglobin 8.9, Hematocrit 28, Mean Corpuscular Volume 92, Mean Corpuscular Hemoglobin 30, Mean Corpuscular Hemoglobin Concent 32, Red Cell Distribution Width 15.3, Platelet Count 160, Mean Platelet Volume 11.0, Immature Granulocyte % (Auto) 0, Neutrophils (%) (Auto) 61, Lymphocytes (%) (Auto) 29, Monocytes (%) (Auto) 9, Eosinophils (%) (Auto) 1, Basophils (%) (Auto) 0, Neutrophils # (Auto) 4.0, Lymphocytes # (Auto) 1.9, Monocytes # (Auto) 0.6, Eosinophils # (Auto) 0.1, Basophils # (Auto) 0.0, Immature Granulocyte # (Auto) 0.0, Sodium Level 133, Potassium Level 3.9, Chloride Level 102, Carbon Dioxide Level 23, Anion Gap 8, Blood Urea Nitrogen 21, Creatinine 0.77, Estimat Glomerular Filtration Rate > 60, BUN/Creatinine Ratio 27, Glucose Level 114, Calcium Level 7.7, Corrected Calcium 9.4, Total Bilirubin 0.4, Aspartate Amino Transf (AST/SGOT) 21, Alanine Aminotransferase (ALT/SGPT) 15, Alkaline Phosphatase 177, Total Protein 4.7, Albumin 1.9 12/02/20 04:45: White Blood Count 5.7, Red Blood Count 2.96, Hemoglobin 8.6, Hematocrit 27, Mean Corpuscular Volume 92, Mean Corpuscular Hemoglobin 29, Mean Corpuscular Hemoglobin Concent 32, Red Cell Distribution Width 15.0, Platelet Count 143, Me an Platelet Volume 11.0, Immature Granulocyte % (Auto) 1, Neutrophils (%) (Auto) 57, Lymphocytes (%) (Auto) 31, Monocytes (%) (Auto) 10, Eosinophils (%) (Auto) 2, Basophils (%) (Auto) 0, Neutrophils # (Auto) 3.3, Lymphocytes # (Auto) 1.8, Monocytes # (Auto) 0.5, Eosinophils # (Auto) 0.1, Basophils # (Auto) 0.0, Immature Granulocyte # (Auto) 0.0, Sodium Level 133, Potassium Level 3.9, Chloride Level 100, Carbon Dioxide Level 24, Anion Gap 9, Blood Urea Nitrogen 19, Creatinine 0.80, Estimat Glomerular Filtration Rate > 60, BUN/Creatinine Ratio 24, Glucose Level 109, Calcium Level 7.9, Corrected Calcium 9.5, Total Bilirubin 0.4, Aspartate Amino Transf (AST/SGOT) 20, Alanine Aminotransferase (ALT/SGPT) 15, Alkaline Phosphatase 180, Total Protein 4.9, Albumin 2.0 12/03/20 06:15: White Blood Count 5.2, Red Blood Count 2.98, Hemoglobin 8.7, Hematocrit 28, Mean Corpuscular Volume 92, Mean Corpuscular Hemoglobin 29, Mean Corpuscular Hemoglobin Concent 32, Red Cell Distribution Width 14.7, Platelet Count 153, Mean Platelet Volume 10.3, Immature Granulocyte % (Auto) 1, Neutrophils (%) (Auto) 46, Lymphocytes (%) (Auto) 40, Monocytes (%) (Auto) 11, Eosinophils (%) (Auto) 2, Basophils (%) (Auto) 0, Neutrophils # (Auto) 2.4, Lymphocytes # (Auto) 2.1, Monocytes # (Auto) 0.6, Eosinophils # (Auto) 0.1, Basophils # (Auto) 0.0, Immature Granulocyte # (Auto) 0.0, Sodium Level 131, Potassium Level 4.0, Chloride Level 99, Carbon Dioxide Level 24, Anion Gap 8, Blood Urea Nitrogen 14, Creatinine 0.74, Estimat Glomerular Filtration Rate > 60, BUN/Creatinine Ratio 19, Glucose Level 116, Calcium Level 7.8, Corrected Calcium 9.3, Total Bilirubin 0.3, Aspartate Amino Transf (AST/SGOT) 20, Alanine Aminotransferase (ALT/SGPT) 16, Alkaline Phosphatase 205, Total Protein 4.9, Albumin 2.1 12/04/20 05:35: White Blood Count 4.9, Red Blood Count 2.89, Hemoglobin 8.4, Hematocrit 26, Mean Corpuscular Volume 91, Mean Corpuscular Hemoglobin 29, Mean Corpuscular Hemoglobin Concent 32, Red Cell Distribution Width 14.6, Platelet Count 188, Mean Platelet Volume 10.0, Sodium Level 130, Potassium Level 4.2, Chloride Level 99, Carbon Dioxide Level 24, Anion Gap 7, Blood Urea Nitrogen 12, Creatinine 0.71, Estimat Glomerular Filtration Rate > 60, BUN/Creatinine Ratio 17, Glucose Level 111, Calcium Level 7.9, Corrected Calcium 9.4, Total Bilirubin 0.3, Aspartate Amino Transf (AST/SGOT) 22, Alanine Aminotransferase (ALT/SGPT) 18, Alkaline Phosphatase 219, Total Protein 5.0, Albumin 2.1 12/05/20 04:55: White Blood Count 5.7, Red Blood Count 2.85, Hemoglobin 8.4, Hematocrit 26, Mean Corpuscular Volume 91, Mean Corpuscular Hemoglobin 30, Mean Corpuscular Hemoglobin Concent 32, Red Cell Distribution Width 14.6, Platelet Count 220, Mean Platelet Volume 9.8, Immature Granulocyte % (Auto) 1, Neutrophils (%) (Auto) 51, Lymphocytes (%) (Auto) 36, Monocytes (%) (Auto) 11, Eosinophils (%) (Auto) 1, Basophils (%) (Auto) 0, Neutrophils # (Auto) 2.9, Lymphocytes # (Auto) 2.0, Monocytes # (Auto) 0.6, Eosinophils # (Auto) 0.1, Basophils # (Auto) 0.0, Immature Granulocyte # (Auto) 0.0, Sodium Level 129, Potassium Level 4.4, Chloride Level 97, Carbon Dioxide Level 23, Anion Gap 9, Blood Urea Nitrogen 12, Creatinine 0.74, Estimat Glomerular Filtration Rate > 60, BUN/Creatinine Ratio 16, Glucose Level 126, Calcium Level 7.8, Corrected Calcium 9.3, Total Bilirubin 0.3, Aspartate Amino Transf (AST/SGOT) 25, Alanine Aminotransferase (ALT/SGPT) 20, Alkaline Phosphatase 211, B-Type Natriuretic Peptide 30.5, Total Protein 5.2, Albumin 2.1 12/06/20 05:15: White Blood Count 5.5, Red Blood Count 2.63, Hemoglobin 7.8, Hematocrit 24, Mean Corpuscular Volume 91, Mean Corpuscular Hemoglobin 30, Mean Corpuscular Hemoglobin Concent 33, Red Cell Distribution Width 14.6, Platelet Count 224, Mean Platelet Volume 9.7, Sodium Level 127, Potassium Level 4.1, Chloride Level 93, Carbon Dioxide Level 25, Anion Gap 9, Blood Urea Nitrogen 11, Creatinine 0.76, Estimat Glomerular Filtration Rate > 60, BUN/Creatinine Ratio 14, Glucose Level 110, Calcium Level 7.7, Corrected Calcium 9.3, Total Bilirubin 0.3, Aspartate Amino Transf (AST/SGOT) 26, Alanine Aminotransferase (ALT/SGPT) 17, Alkaline Phosphatase 182, Total Protein 5.1, Albumin 2.0 12/07/20 05:35: White Blood Count 5.7, Red Blood Count 3.03, Hemoglobin 9.0, Hematocrit 27, Mean Corpuscular Volume 90, Mean Corpuscular Hemoglobin 30, Mean Corpuscular Hemoglobin Concent 33, Red Cell Distribution Width 14.5, Platelet Count 224, Mean Platelet Volume 9.7, Immature Granulocyte % (Auto) 1, Neutrophils (%) (Auto) 47, Lymphocytes (%) (Auto) 36, Monocytes (%) (Auto) 14, Eosinophils (%) (Auto) 2, Basophils (%) (Auto) 0, Neutrophils # (Auto) 2.6, Lymphocytes # (Auto) 2.1, Monocytes # (Auto) 0.8, Eosinophils # (Auto) 0.1, Basophils # (Auto) 0.0, Immature Granulocyte # (Auto) 0.1, Sodium Level 127, Potassium Level 4.3, Chloride Level 94, Carbon Dioxide Level 23, Anion Gap 10, Blood Urea Nitrogen 11, Creatinine 0.72, Estimat Glomerular Filtration Rate > 60, BUN/Creatinine Ratio 15, Glucose Level 127, Calcium Level 7.9, Corrected Calcium 9.4, Total Bilirubin 0.3, Aspartate Amino Transf (AST/SGOT) 22, Alanine Aminotransferase (ALT/SGPT) 21, Alkaline Phosphatase 168, Total Protein 5.4, Albumin 2.1 Discharge Home Medications: Active Scripts Active Reported Trelegy Ellipta 100-62.5-25 (Fluticasone/Umeclidin/Vilanter) 1 Each Blst.w.dev 1 Each IH DAILY Montelukast Sodium 10 Mg Tablet 10 Mg PO HS Cetirizine HCl 10 Mg Tablet 10 Mg PO DAILY Fish Oil 1,000 mg Capsule ([place] 3 Polyunsat Fatty Acids) 1,000 Mg Cap 1,000 Mg PO DAILY Vitamin C (Ascorbic Acid) 500 Mg Capsule 500 Mg PO DAILY Women's 50 Plus Multivit Tab (Mv-Mn/Folic Acid/Calcium/Vit K) 1 Each Tablet 1 Each PO DAILY Aspirin 81 Mg Tab.chew 81 Mg PO DAILY Anoro Ellipta 62.5-25 Mcg INH (Umeclidinium Brm/Vilanterol Tr) 1 Each Blst.w.dev 1 Each IH DAILY Lisinopril 40 Mg Tablet 40 Mg PO DAILY Simvastatin 40 Mg Tablet 40 Mg PO HS Instructions to patient/family Please see electronic discharge instructions given to patient. Diagnosis/Problems Diagnosis/Problems (1) Ileus following gastrointestinal surgery (2) Presbycusis of both ears (3) Ileostomy in place (4) Anemia due to acute blood loss (5) Colon cancer (6) Myopathy (7) Hyponatremia (8) COPD (chronic obstructive pulmonary disease) (9) S/P right hemicolectomy Clinical Quality Measures DVT/VTE Risk/Contraindication: Risk Factor Score Per Nursin WILFREDO MARTÍNEZ DO Dec 07, 2020 06:53
[2020-12-07] MEDS: RT-ALBUTEROL/IPRATROPIUM 3 ML (DUONEB) VIAL INH SCH ×2 (07:19→10:26)
[2020-12-07] MEDS: PATIENT MAY USE OWN MED,SINGLE MED INH SCH (07:23)
[2020-12-07 08:00] VITALS: BP 121/64
[2020-12-07] MEDS: SODIUM CHLORIDE 1 GM TABLET PO SCH (08:41)
[2020-12-07] MEDS: METOCLOPRAMIDE INJ 10 MG/2 ML (REGLAN) IVP SCH (08:41)
[2020-12-07] MEDS: NICOTINE 14 MG (NICODERM) PATCH TD SCH (08:41)
[2020-12-07] MEDS: amLODIPine 10 MG (NORVASC) TAB PO SCH (08:41)
[2020-12-07] MEDS: NICOTINE PATCH REMOVAL TP SCH (08:41)
[2020-12-07] MEDS: meTOprolol TARTRATE 25 MG (LOPRESSOR) TABLET PO SCH (08:41)
[2020-12-07] MEDS: lisINopril 20 MG (PRINIVIL) TABLET PO SCH (08:41)
[2020-12-07] MEDS: PANTOPRAZOLE 40 MG (PROTONIX) VIAL IV SCH (08:41)
--- NOTE | 2020-12-07 11:29 | Progress Note ---
Subjective Date Seen by a Provider: Dec 07, 2020 Time Seen by a Provider: 10:50 Subjective/Events-last exam Patient seen with Dr. Lynch. Patient reports doing well. Tolerating diet and has been ambulating well. Denies any N/V. No fever or chills. Denies any significant abdominal pain. Objective Exam Vital Signs Date Time Temp Pulse Resp B/P (MAP) Pulse Ox O2 Delivery O2 Flow Rate FiO2 12/07/20 10:26 90 Nasal Cannula 1.00 12/07/20 09:24 Nasal Cannula 1.00 12/07/20 08:00 36.4 92 20 121/64 (83) 94 Nasal Cannula 1.00 12/07/20 07:26 Room Air 12/07/20 07:19 92 Nasal Cannula 1.00 12/07/20 00:54 36.9 89 20 115/58 (77) 96 Nasal Cannula 1.00 12/06/20 21:00 Nasal Cannula 1.00 12/06/20 18:38 93 Nasal Cannula 1.00 12/06/20 16:00 36.7 92 18 119/60 (79) 96 Nasal Cannula 1.00 12/06/20 15:48 36.7 92 119/60 12/06/20 15:03 92 Nasal Cannula 1.00 12/06/20 13:28 36.1 94 104/51 91 Nasal Cannula 1.00 12/06/20 13:13 36.3 95 116/58 94 Nasal Cannula 1.00 I & O 12/07/20 07:00 Intake Total 2500 ml Output Total 3005 ml Balance -505 ml Capillary Refill : Less Than 3 Seconds General Appearance: No Apparent Distress, WD/WN Neck: Normal Inspection, Supple Respiratory: Normal Breath Sounds, No Accessory Muscle Use, No Respiratory Distress Cardiovascular: Regular Rate, Rhythm, No Edema Gastrointestinal: normal bowel sounds, soft, tenderness, other (Right ileostomy pink and moist and functioning. Left mucus ostomy pink and moist and functioning. Left upper LANE drain with minimal clear SS to serous drainage) Extremity: Normal Inspection, Normal Range of Motion Neurologic/Psychiatric: Alert, Oriented x3 Skin: Normal Color, Warm/Dry, Other (Mid abdominal incision C/D/I with wound vac in place) Results Lab Laboratory Tests 12/07/20 05:35: White Blood Count 5.7, Red Blood Count 3.03L, Hemoglobin 9.0L, Hematocrit 27L, Mean Corpuscular Volume 90, Mean Corpuscular Hemoglobin 30, Mean Corpuscular Hemoglobin Concent 33, Red Cell Distribution Width 14.5, Platelet Count 224, Mean Platelet Volume 9.7, Immature Granulocyte % (Auto) 1, Neutrophils (%) (Auto) 47, Lymphocytes (%) (Auto) 36, Monocytes (%) (Auto) 14H, Eosinophils (%) (Auto) 2, Basophils (%) (Auto) 0, Neutrophils # (Auto) 2.6, Lymphocytes # (Auto) 2.1, Monocytes # (Auto) 0.8, Eosinophils # (Auto) 0.1, Basophils # (Auto) 0.0, Immature Granulocyte # (Auto) 0.1, Sodium Level 127L, Potassium Level 4.3, Chloride Level 94L, Carbon Dioxide Level 23, Anion Gap 10, Blood Urea Nitrogen 11, Creatinine 0.72, Estimat Glomerular Filtration Rate > 60, BUN/Creatinine Ratio 15, Glucose Level 127H, Calcium Level 7.9L, Corrected Calcium 9.4, Total Bilirubin 0.3, Aspartate Amino Transf (AST/SGOT) 22, Alanine Aminotransferase (ALT/SGPT) 21, Alkaline Phosphatase 168H, Total Protein 5.4L, Albumin 2.1L Microbiology 11/16/20 MRSA Screen - Final, Complete MRSA not isolated 11/15/20 Gram Stain - Final, Resulted 11/15/20 Anaerobic Culture - Final, Resulted No anaerobes isolated 11/15/20 Surgical Culture - Final, Resulted Bobbi glabrata Bobbi species 11/15/20 Fungal Culture 1 - Preliminary, Resulted Bobbi glabrata Bobbi species Assessment/Plan Assessment/Plan Assess & Plan/Chief Complaint s/p extended right hemicolectomy, end ileostomy, mucous fistula, revision ileostomy, drainage intraabd abscess and VAC placement. VSS WBC 5.7 will change vac about every 5 days. start a carbapenem. cont respiratory support and diuresis. Continue diet. S/P definitive abd closure with biologic mesh on wednesday(12/04) with overlying regular wound vac to allow for subcutaneous and skin secondary intention. Ambulate may transfer to IRU at anytime. Clinical Quality Measures DVT/VTE Risk/Contraindication: Risk Factor Score Per Nursin REE KING [employer] INSTRUCTOR Dec 07, 2020 11:29
--- NOTE | 2020-12-10 10:26 | Physician Query Clarification ---
PQ-Link Infection to Dev/Proc Admission/Discharge Admission Date: Nov 15, 2020 at 12:25 Discharge Date: Dec 07, 2020 at 13:00 Dr. Chapman, The medical record reflects the following clinical scenario: History/Risk Factors: Sepsis, intraabdominal abscess, wound dehiscence, ischemic ileostomy, acute respiratory failure Clinical Findings: T 36.2, P 104, R 21, WBC 32.2, Lactic acid 0.97, Procalcitonin 0.25, PH 7.27, Po2 78 Treatment: revision ileostomy, wound vac Question: Can you specify if the sepsis, intrabdominal abscess, wound dehiscence and ischemic ileostomy is due to/associated with recent operative procedures? Please document a response in Progress Note or Discharge Summary. 1. Yes - sepsis, intrabdominal abscess, wound dehiscence and ischemic ileostomy is due to/associated with recent operative procedures. 2. No - sepsis, intrabdominal abscess, wound dehiscence and ischemic ileostomy is due to/associated with recent operative procedures 3. Other, with explanation of the clinical findings. 4. Clinically undetermined, no explanation for the clinical findings. PHYSICIAN RESPONSE Specify if infection: 1 Please remember a lack of response to the above will prompt a phone page by CDI/Coding staff. In responding to this query, please exercise your independent professional judgment. The purpose of this communication is to more accurately reflect the complexity of your patients condition. The fact that a question is asked does not imply that any particular answer is desired or expected. Thank you for your timely response to this clarification. Requestors name: Xochilt [email or web address] THIS PHYSICIAN QUERY FORM IS A PERMANENT PART OF THE MEDICAL RECORD XOCHILT BARRY Dec 10, 2020 10:26 WILFREDO CHAPMAN DO Dec 10, 2020 11:21
== END 2020-12-07 13:00 | DRG 856 ==
LOC: SURG 12:25 → ICU 15:46 → 4TH 11-22 17:24 → ICU 11-25 12:15 → 4TH 11-27 10:22
PROVIDERS: ADMIT Surgery; ATTEND Surgery
PROC: 0WQF0ZZ Repair Abdominal Wall, Open Approach (ICD-10-PCS; 2020-11-15)
PROC: 5A1945Z Respiratory Ventilation, 24-96 Consecutive Hours (ICD-10-PCS; 2020-11-15)
PROC: 0D1B0Z4 Bypass Ileum to Cutaneous, Open Approach (ICD-10-PCS; principal; 2020-11-15 13:36)
PROC: 0W9G0ZX Drainage of Peritoneal Cavity, Open Approach, Diagnostic (ICD-10-PCS; 2020-11-20)
PROC: 0JB80ZZ Excision of Abdomen Subcutaneous Tissue and Fascia, Open Approach (ICD-10-PCS; 2020-11-20)
PROC: 2W03X6Z Change Pressure Dressing on Abdominal Wall (ICD-10-PCS; 2020-11-20)
PROC: 5A09357 Assistance with Respiratory Ventilation, Less than 24 Consecutive Hours, Continuous Positive Airway Pressure (ICD-10-PCS; 2020-11-25)
PROC: 0WUF0KZ Supplement Abdominal Wall with Nonautologous Tissue Substitute, Open Approach (ICD-10-PCS; 2020-12-04)
DX: T81.44XA Sepsis following a procedure, initial encounter (principal); K65.1 Peritoneal abscess; J96.00 Acute respiratory failure, unspecified whether with hypoxia or hypercapnia; K94.19 Other complications of enterostomy; T81.32XA Disruption of internal operation (surgical) wound, not elsewhere classified, initial encounter; D62 Acute posthemorrhagic anemia; K56.7 Ileus, unspecified; E87.1 Hypo-osmolality and hyponatremia; E87.0 Hyperosmolality and hypernatremia; J98.11 Atelectasis; T81.40XA Infection following a procedure, unspecified, initial encounter; G72.9 Myopathy, unspecified; J44.9 Chronic obstructive pulmonary disease, unspecified; F17.210 Nicotine dependence, cigarettes, uncomplicated; I10 Essential (primary) hypertension; E78.00 Pure hypercholesterolemia, unspecified; M19.91 Primary osteoarthritis, unspecified site; M54.9 Dorsalgia, unspecified; E78.5 Hyperlipidemia, unspecified; Z85.038 Personal history of other malignant neoplasm of large intestine; Z99.81 Dependence on supplemental oxygen; Z97.4 Presence of external hearing-aid; Z88.0 Allergy status to penicillin; F29 Unspecified psychosis not due to a substance or known physiological condition; I16.0 Hypertensive urgency
CPT/HCPCS: 36415; 36569; 71045; 76937; 80048; 80053; 82274; 82805; 82962; 83605; 83735; 83880; 84100; 84134; 84145; 84484; 85007; 85014; 85018; 85025; 85027; 86850; 86900; 86901; 86920; 87070; 87075; 87077; 87081; 87101; 87106; 87205; 88112; 88305; 88307; 93005; 94002; 94003; 94640; 94660; 94760; 94799

== ENCOUNTER 2020-12-07 13:23 | Inpatient (IN) | payer MEDICARE ==
[~2020-12-07] VITALS: Ht 157.5 cm; Wt 77.5 kg
[~2020-12-07 13:23] MED LIST changes: +ACETAMINOPHEN 500 MG TAB (TYLENOL) PO PRN; +ALPRAZolam 0.25 MG (XANAX) TAB PO PRN; +BISACODYL 10 MG SUPP (DULCOLAX) PR PRN; +CALCIUM CARBONATE 500 MG (TUMS) TAB.CHEW PO PRN; +DOCUSATE SODIUM 100 MG (COLACE) CAP PO PRN; +FLEET ENEMA ADULT 1 EA BTL PR PRN; +LACTULOSE SYRUP 10GM/15ML (ENULOSE) 30ML UDC PO PRN; +LOPERAMIDE 2 MG (IMODIUM) TABLET PO PRN; +MELATONIN 3 MG TABLET PO PRN; +ONDANSETRON 4 MG (ZOFRAN) ORAL DISSOLVE TAB PO PRN; +diphenhydrAMINE 25 MG TAB (BENADRYL) PO PRN; +guaiFENesin/CODEINE (ROBITUSSIN AC) 10ML UDC PO PRN
[2020-12-07 13:43] VITALS: BP 127/60
[2020-12-07] MEDS: SENNA W/DOCUSATE (SENOKOT S) TABLET PO SCH ×2 (14:28→21:58)
[2020-12-07] MEDS: polyethylene glycoL POWDER 17 GM (MIRALAX) PACK PO SCH ×2 (14:28→19:34)
[2020-12-07] MEDS: DOCUSATE SODIUM 100 MG (COLACE) CAP PO SCH ×2 (14:28→21:58)
[2020-12-07] MEDS ORDERED: ACETAMINOPHEN 325 MG TABLET PO PRN ×2 (14:30→16:45)
--- NOTE | 2020-12-07 15:11 | Physical Therapy Evaluation ---
PT Evaluation-General Medical Diagnosis Admission Date Dec 07, 2020 at 13:23 Medical Diagnosis: Disuse Myopathy Onset Date: Dec 07, 2020 Therapy Diagnosis Therapy Diagnosis: Weakness; impaired mobility Precautions Precautions/Isolations: Fall Prevention, Standard Precautions, Pressure Ulcer Referral Physician: Genna Chapman Reason for Referral: Evaluation/Treatment, Strengthening, Gait Medical History Pertinent Medical History: COPD, HTN Current History Patient has recent history of colon cancer. She was admitted to the hospital in early October and has undergone multiple abdoinal surgeries.She is now medically stable but does not have sufficient functional strength or mobility to return home. Social History Home: Single Level Current Living Status: Other Family Entry Into Home: Stairs Without Railing PT Steps Into Home: 3 Pt lives with her sister. Prior Prior Level of Function SCALE: Activities may be completed with or without assistive devices. 4-Hvpnjzsobc-bvtluoi completes the activity by him/herself with no assistance from a helper. 5-Set-up or Clean-up Assistance-helper sets up or cleans up; patient completes activity. [place] assists only prior to or following the activity. 4-Supervision or Touching Assistance-helper provides verbal cues and/or touching/steadying and/or contact guard assistance as patient completes activity. Assistance may be provided throughout the activity or intermittently. 3-Partial/Moderate Assistance-helper does LESS THAN HALF the effort. [place] lifts, holds or supports trunk or limbs, but provides less than half the effort. 2-Substantial/Maximal Assistance-helper does MORE THAN HALF the effort. [place] lifts or holds trunk or limbs and provides more than half the effort. 1-Gefwaryom-onexcm does ALL the effort. Patient does none of the effort to complete the activity. Or, the assistance of 2 or more helpers is required for the patient to complete the activity. If activity was not attempted, code reason: 7-Patient Refused. 9-Not Applicable-not attempted and the patient did not perform the activity before the current illness, exacerbation or injury. 10-Not Attempted due to Environmental Limitations-(lack of equipment, weather restraints, etc.). 88-Not Attempted due to Medical Conditions or Safety Concerns. Bed Mobility: 6 Transfers (B,C,W/C): 6 Gait: 6 Stairs: 6 Wheelchair Mobility: 9 Indoor Mobility (Ambulation): Independent Stairs: Independent PT Evaluation-Current Subjective Pt reports she is very weak but wants to get moving so she can go home. Objective Patient Orientation: Normal For Age Attachments: Colostomy/Ileostomy, Oxygen, Lam Catheter ROM/Strength ROM Lower Extremities WFL Strength Lower Extremities Gross 3+/5 Integumentary/Posture Integumentary Skin breakdown on the gluteals; abdominal wound with wound vac Bowel Incontinence: No Bladder Incontinence: No Sensory Vision: Functional Hearing: Functional Sensation Right Lower Extremit: Intact Sensation Left Lower Extremity: Intact Transfers Roll Left & Right (QC): 3 Sit to Lying (QC): 2 Lying to Sitting/Side of Bed(Q: 2 Sit to Stand (QC): 3 Chair/Rhp-dy-Drrng Xfer(QC): 3 Toilet Transfer (QC): 88 Car Transfer (QC): 88 Required assist to raise legs into bed and assist to control trunk when transitioning supine to sit and sit to supine. Gait Walk 10 feet (QC): 88 Walk 50 ft with 2 Turns(QC): 88 Walk 150 ft (QC): 88 Walking 10ft/uneven surface-QC: 88 Distance: 3 feet Gait Assistive Device: FWW Comments/Gait Description Pt able to take 2 to 3 steps using FWW. Lacks sufficient quad and glute strength for safe ambulation at the time of evaluation. Wheelchair Training Does the Pt Use a Wheelchair?: Yes Wheel 50 ft with 2 turns (QC): 88 Wheel 150 ft (QC): 88 Type of Wheelchair: Manual Stairs #of Steps: 0 1 Step (curb) (QC): 88 4 Steps (QC): 88 12 Steps (QC): 88 Balance Sitting Static: Poor Sitting Dynamic: Poor Standing Static: Poor Standing Dynamic: Poor Picking up an Object (QC): 88 Assessment/Needs Rehab Potential: Guarded PT Short Term Goals Short Term Goals Time Frame: Dec 21, 2020 Roll Left & Right: 4 Sit to lyin Lying to sitting on side of be: 4 Sit to stand: 4 Chair/xvp-to-geqvl transfer: 4 Toilet transfer: 4 Car transfer: 3 Walk 10 feet: 4 Walk 50 feet with two turns: 4 Walk 150 feet: 4 Walking 10ft on uneven surface: 4 1 step (curb): 4 Does pt use a wc or scooter: Yes Wheel 50ft w/2 turns: 4 Wheel 150 feet: 4 Type: Manual PT Hydraulic Design Engineer Goals Hydraulic Design Engineer Goals PT Hydraulic Design Engineer Goals Time Frame: Jan 04, 2021 Roll Left & Right (QC): 6 Sit to Lying (QC): 6 Lying-Sitting on Side/Bed(QC): 6 Sit to Stand (QC): 6 Chair/Ygo-xn-Dbqvn Xfer(QC): 6 Toilet Transfer (QC): 6 Car Transfer (QC): 5 Does the Patient Walk: Yes Walk 10 feet (QC): 6 Walk 50ft with 2 Turns (QC): 6 Walk 150 ft (QC): 5 Walking 10ft on Uneven Surface: 6 1 Step (curb) (QC): 5 4 Steps (QC): 5 12 Steps (QC): 4 Picking up an Object (QC): 4 Does the Pt use WC or Scooter?: Yes Wheel 50 feet with 2 turns (QC: 6 Type: Manual Wheel 150 feet: 6 Type: Manual PT Plan Problem List Problem List: Activity Tolerance, Functional Strength, Balance, Gait, Transfer, Bed Mobility Treatment/Plan Treatment Plan: Continue Plan of Care Treatment Plan: Bed Mobility, Concurrent Therapy, Functional Activity [place], Functional Strength, Group Therapy, Gait, Safety, Therapeutic Exercise, Transfers Treatment Duration: Jan 04, 2021 Frequency: At least 5 of 7 days/Wk (IRF) Estimated Hrs Per Day: 1.5 hours per day Patient and/or Family Agrees t: Yes Safety Risks/Education Patient Education: Gait Training, Safety Issues Teaching Recipient: Patient Teaching Methods: Demonstration, Discussion Response to Teaching: Verbalize Understanding Discharge Recommendations Barriers to Progress weakness from prolonged hospitalization; medical complexity Target Placement home Time/GCodes Time In: 1445 Time Out: 1525 Total Billed Treatment Time: 40 Total Billed Treatment visit, eval high complexity 40 min YSABEL ARELLANO PT Dec 07, 2020 15:11
[2020-12-07 16:23] VITALS: BP 132/60
[2020-12-07] MEDS ORDERED: CHLORASEPTIC SPRAY 177 ML LIQUID MC PRN (16:45)
[2020-12-07] MEDS ORDERED: NALOXONE 0.4 MG/ML 1 ML (NARCAN) VIAL IV PRN (16:45)
[2020-12-07] MEDS ORDERED: guaiFENesin/CODEINE (ROBITUSSIN AC) 10ML UDC PO PRN (16:45)
[2020-12-07] MEDS ORDERED: ONDANSETRON 4 MG (ZOFRAN) ORAL DISSOLVE TAB PO PRN (16:45)
[2020-12-07] MEDS ORDERED: ONDANSETRON 4 MG/2 ML (SDV) Z0FRAN IVP PRN (16:45)
[2020-12-07] MEDS ORDERED: MICONAZOLE 2% POWDER (DESENEX AF) 90 GM TOP PRN (16:45)
[2020-12-07] MEDS ORDERED: HALOPERIDOL 5 MG/ML (HALDOL) VIAL IM PRN (16:45)
[2020-12-07] MEDS ORDERED: diphenhydrAMINE 50 MG/ML INJ (BENADRYL) IV PRN (16:45)
[2020-12-07] MEDS ORDERED: HYDROmorphone 2 MG/ML VIAL (DILAUDID) IV PRN (16:45)
[2020-12-07] MEDS ORDERED: ARTIFICIAL TEARS OINT (LACRI-LUBE) 3.5 GM TUBE OU PRN (16:45)
[2020-12-07] MEDS ORDERED: CATHETER FLUSH 10 ML SYR IV PRN (16:45)
[2020-12-07] MEDS ORDERED: diphenhydrAMINE 25 MG TAB (BENADRYL) PO PRN (16:45)
[2020-12-07] MEDS: RT-ALBUTEROL/IPRATROPIUM 3 ML (DUONEB) VIAL INH SCH (18:54)
--- NOTE | 2020-12-07 19:36 | PM&R Post Admission Assessment ---
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 Ultimately patient required extensive surgery again and placement of intra-abdominal wound vac which required multiple changes of the wound vac under general anesthesia but now she has done well and required 1 unit of transfusion yesterday and is eating well and oleostomy is functioning well. See below DC summaries from 10/31/20: CC: Post op medical management following colon cancer R hemicolectomy and subsequent ileocolonic resection with end ileostomy Subjective HPI: Ms. Pinto is a 75yoWF (clinic patient of Dr Ba and Dr Moreno) who presented to 4th floor after spending overnight in ICU for dyspnea and monitori ng after right hemicolectomy on 10/31/20 for colon cancer treatment. Post-op she had low sodium level which has since improved along with upper airway wheezing, shortness of air and anemia. She received 3 units of PRBCs and Lasix to address anemia and shortness of breath. As patient recovered from surgery, bowel function never returned and she experienced N/V and abdominal distention so NGT was placed to help alleviate symptoms. A small bowel obstruction and ileocolonic torsion were found and required pt's return to the operating room on 11/10/20 for ileocolonic resection and end ileostomy. Pt's course has been complicated with PNA treated by abx, HTN managed with help of cardiology consult, and post-op ileus which progressed to obstruction due to ileocolonic torsion. Since completion of second operation she is notably improved. She is strong receiving TPN with good output from ileostomy and pain controlled by RN PRODUCTION. She will continue to recover on 4th floor as we monitor her labs closely and may need rehab to regain strength before returning home. Patient is very [place] and can't communicate well. 11/16/20 H&P: CC: VDRF following surgery for abscess and ileostomy ischemia HPI: This is a 75yoWF clinic patient of Dr Ba who presents to the ICU following urgent surgery following failure on IRF due to sepsis and elevated wbc. Patient was assessed to have ileostomy ischemia and abscess. Patient is currently on Cipro, Flagyl, Vanc, Kinga and Diflucan. Patient has a h/o colon cancer s/p resection 2 weeks ago and I was consulted for AECOPD due to long smoking hx and severe anemia s/p transfusion and resolution of hyponatremia. She had a complication of torsion requiring diverting ileostomy and she became strong enough to go to IRF but only lasted 2 days before she decompensated. Currently she remains intubated and critically ill. Past Jpitqie-Kfshyl-Znesqf Hx Past Med/Social Hx: Reviewed Nursing Past Med/Soc Hx, Reviewed and Corrections made Patient Social History Marrital Status: single Employed/Student: retired Alcohol Use: Denies Use Smoking Status: Current Everyday Smoker Type Used: Cigarettes 2nd Hand Smoke Exposure: No Recent Hopitalizations: No Immunizations Up To Date Date of Pneumonia Vaccine: Jul 25, 2020 Date of Influenza Vaccine: Jul 25, 2020 Seasonal Allergies Seasonal Allergies: Yes Past Medical History Surgeries: Abdominal, Tonsillectomy Respiratory: COPD, Pneumonia Currently Using CPAP: No Currently Using BIPAP: No Cardiac: High Cholesterol, Hypertension Gastrointestinal: Chronic Constipation Musculoskeletal: Arthritis, Chronic Back Pain Hearing Impairment: Hard of Hearing, Bilateral Hearing Aide Cancer: Colon What Type of Treatment Did You: Surgical Intervention History of Blood Disorders: No Prior Level of Function Bed Mobility: 6 Transfers: 6 Gait: 6 Stairs: 6 Wheelchair Mobility: 9 Indoor Mobility (Ambulation): Independent Stairs: Independent 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 Current Level of Fuctioning Roll Left to Right: 3 Sit to Lyin Lying to Sitting/Side of Bed: 2 Sit to Stand: 3 Chair/Zux-mb-Zjqfq Xfer: 3 Car Transfer: 88 Walk 10 feet: 88 Walk 50 ft with 2 Turns: 88 Walk 150 ft: 88 Walking 10ft on uneven surface: 88 Gait Assistive Device: FWW Does the Pt Use a Wheelchair: Yes Wheel 50 ft with 2 turns: 88 Wheel 150 ft: 88 Type of Wheelchair: Manual #of Steps: 0 1 Step (curb): 88 4 Steps: 88 12 Steps: 88 Picking up an Object: 88 PM&R Allergy/Meds/Data Review Allergies Coded Allergies: Penicillins (Verified Allergy, Unknown, Anaphylaxis, 09/26/20) budesonide (Verified Allergy, Unknown, Nausea, 09/26/20) formoterol (Verified Allergy, Unknown, Nausea, 09/26/20) midazolam (Verified Allergy, Unknown, Anaphylaxis, 09/26/20) Home Medications Scheduled Ascorbic Acid (Vitamin C), 500 MG PO DAILY, (Reported) Aspirin (Aspirin), 81 MG PO DAILY, (Reported) Cetirizine HCl (Cetirizine HCl), 10 MG PO DAILY, (Reported) Fluticasone/Umeclidin/Vilanter (Trelegy Ellipta 100-62.5-25), 1 EACH IH DAILY, (Reported) Lisinopril (Lisinopril), 40 MG PO DAILY, (Reported) Montelukast Sodium (Montelukast Sodium), 10 MG PO HS, (Reported) Mv-Mn/Folic Acid/Calcium/Vit K (Women's 50 Plus Multivit Tab), 1 EACH PO DAILY, (Reported) [place] 3 Polyunsat Fatty Acids (Fish Oil 1,000 mg Capsule), 1,000 MG PO DAILY, (Reported) Simvastatin (Simvastatin), 40 MG PO HS, (Reported) Umeclidinium Brm/Vilanterol Tr (Anoro Ellipta 62.5-25 Mcg INH), 1 EACH IH DAILY, (Reported) Current Medications Current Medications Reviewed Review of Systems Constitutional: see HPI EENTM: no symptoms reported Respiratory: dyspnea on exertion Cardiovascular: no symptoms reported Gastrointestinal: abdominal pain Genitourinary: no symptoms reported Musculoskeletal: back pain Skin: no symptoms reported Psychiatric/Neurological: Anxiety, Depressed All Other Systems Reviewed Negative Unless Noted: Yes Physical Exam Physical Exam Vital Signs Vital Signs - First Documented 12/07/20 13:43 Temp 36.3 Pulse 92 Resp 18 B/P (MAP) 127/60 (82) Pulse Ox 94 O2 Delivery Nasal Cannula O2 Flow Rate 1.00 Capillary Refill : Height, Weight, BMI Height: '" Weight: lbs. oz. kg; 34.48 BMI Method: General Appearance: No Apparent Distress, WD/WN, Anxious, Chronically ill Eyes: Bilateral Eye Normal Inspection, Bilateral Eye PERRL HEENT: PERRL/EOMI, Normal ENT Inspection, Pharynx Normal, Other ([place] severe) Neck: Full Range of Motion, Normal Inspection, Non Tender, Supple, Carotid Bruit Respiratory: Chest Non Tender, Lungs Clear, No Accessory Muscle Use, No Respiratory Distress, Decreased Breath Sounds Cardiovascular: Regular Rate, Rhythm, No Edema, No Gallop, No JVD, No Murmur, Normal Peripheral Pulses Gastrointestinal: Normal Bowel Sounds, No Organomegaly, No Pulsatile Mass, Non Tender, Soft, Other (ileostomy) Back: Normal Inspection, No CVA Tenderness, No Vertebral Tenderness Extremity: Normal Capillary Refill, Normal Inspection, Normal Range of Motion, Non Tender, No Calf Tenderness, No Pedal Edema Neurologic/Psychiatric: Alert, Oriented x3, No Motor/Sensory Deficits, Normal Mood/Affect Skin: Normal Color, Warm/Dry Lymphatic: No Adenopathy PM&R Medical Assessment & Plan REHAB/MEDICAL ASSESSMENT AND PLAN: REHAB IMPAIRMENT GROUP: Critical illness myopathy ETIOLOGIC DIAGNOSIS: Critical illness myopathy The comorbidities that impact the patients function and/or functional outcome by: extensive recent illness with several ICU stays with severe COPD and 3 abdominal surgeries will require close monitoring for decompensation REHAB PLAN: The patient is being admitted to our comprehensive inpatient rehabilitation facility and can tolerate the intensity of service consisting of at least: 180 minutes of therapy a day, 5 out of 7 days a week Rehab treatment will consist of: PT OT will focus on regaining strength for severe myopathy from multiple surgeries along with respiratory failure and intubations and multiple transfusions The patient/family has a good understanding of our discharge process and will benefit from an interdisciplinary inpatient rehabilitation program. The patient has potential to make improvement and is in need of at least two of the following multidisciplinary therapies including but not limited to physical, occupational, speech, and prosthetics and orthotics. Additionally the patient will need services from respiratory, nutritional services, wound care, psychology, etc. (Customize this to each patient). Given the patients complex condition and risk of further medical complications, rehabilitation services cannot be safely or effectively provided at a lower level of care such as a long term facility. BARRIERS TO DISCHARGE: Severe myopathy ESTIMATED LOS: 14 days DISPOSITION: Home RELEVANT CHANGES SINCE PREADMISSION SCREENING: I have compared the patients medical and functional status at the time of the preadmission screening and there are: no changes PROGNOSIS: Guarded REHABILITATION GOALS: 1. PT OT will focus on regaining strength for severe myopathy from multiple surgeries along with respiratory failure and intubations and multiple transfusions All the above goals were reviewed with the patient and he/she is in agreement. By signing this document, I acknowledge that I have personally performed a full physical examination on this patient within 24 hours of admission to this inpatient rehabilitation facility and have determined the patient to be able to tolerate the above course of treatment at an intensive level for a reasonable period of time. I will be completing a detailed individualized Plan of Care for this patient by day #4 of the patients stay based upon the Preadmission Screen, the Post-Admission Evaluation, and the therapy evaluations. Admission Dx/Comorbidities: (1) Myopathy ICD Codes: G72.9 - Myopathy, unspecified (2) Ileus following gastrointestinal surgery ICD Codes: K91.89 - Other postprocedural complications and disorders of digestive system; K56.7 - Ileus, unspecified (3) S/P right hemicolectomy ICD Codes: Z90.49 - Acquired absence of other specified parts of digestive tract (4) Presbycusis of both ears ICD Codes: H91.13 - Presbycusis, bilateral (5) Ileostomy in place ICD Codes: Z93.2 - Ileostomy status (6) Anemia due to acute blood loss ICD Codes: D62 - Acute posthemorrhagic anemia (7) Colon cancer ICD Codes: C18.9 - Malignant neoplasm of colon, unspecified (8) Hyponatremia ICD Codes: E87.1 - Hypo-osmolality and hyponatremia (9) COPD (chronic obstructive pulmonary disease) ICD Codes: J44.9 - Chronic obstructive pulmonary disease, unspecified (10) DVT prophylaxis ICD Codes: Z29.9 - Encounter for prophylactic measures, unspecified Assessment/Plan Assessment and Plan Assess & Plan/Chief Complaint Assessment: 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 Former smoker Severe presbycusis HTN Hyponatremia 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
[2020-12-07] MEDS: METOCLOPRAMIDE INJ 10 MG/2 ML (REGLAN) IVP SCH (20:24)
[2020-12-07] MEDS: PANTOPRAZOLE 40 MG (PROTONIX) VIAL IV SCH (20:24)
[2020-12-07] MEDS: meTOprolol TARTRATE 25 MG (LOPRESSOR) TABLET PO SCH (20:25)
[2020-12-07] MEDS: SUCRALFATE 1 GM (CARAFATE) TAB PO SCH (20:25)
[2020-12-07] MEDS: ENOXAPARIN 40 MG/0.4 ML (LOVENOX) SYR SC SCH (20:26)
[2020-12-07] MEDS: SODIUM CHLORIDE 1 GM TABLET PO SCH (20:26)
[2020-12-08 05:07] VITALS: BP 127/84
[2020-12-08 06:24] LABS: BASOPHILS % (AUTO) 0 % (0-10); EOSINOPHILS # (AUTO) 0.1 10^3/uL (0.0-0.3); EOSINOPHILS % (AUTO) 2 % (0-10); HEMATOCRIT 27 % (35-52); HEMOGLOBIN 8.9 g/dL (11.5-16.0); LYMPHOCYTES # (AUTO) 2.3 10^3/uL (1.0-4.0); LYMPHOCYTES % (AUTO) 34 % (12-44); MEAN CORPUSCULAR HEMOGLOBIN 30 pg (25-34); MEAN CORPUSCULAR HGB CONC 33 g/dL (32-36); MEAN CORPUSCULAR VOLUME 91 fL (80-99); MEAN PLATELET VOLUME 9.5 fL (9.0-12.2); MONOCYTES # (AUTO) 0.8 10^3/uL (0.0-1.0); MONOCYTES % (AUTO) 12 % (0-12); NEUTROPHILS # (AUTO) 3.4 10^3/uL (1.8-7.8); NEUTROPHILS % (AUTO) 51 % (42-75); PLATELET COUNT 264 10^3/uL (130-400); WHITE BLOOD COUNT 6.8 10^3/uL (4.3-11.0)
[2020-12-08 06:30] LABS: ALBUMIN 2.2 GM/DL (3.2-4.5); CHLORIDE 94 MMOL/L (98-107); POTASSIUM 4.5 MMOL/L (3.6-5.0); SODIUM 127 MMOL/L (135-145)
[2020-12-08 06:32] LABS: CALCIUM 7.8 MG/DL (8.5-10.1)
[2020-12-08 06:33] LABS: GLUCOSE 107 MG/DL (70-105); TOTAL PROTEIN 5.6 GM/DL (6.4-8.2)
[2020-12-08 06:34] LABS: CARBON DIOXIDE 23 MMOL/L (21-32)
[2020-12-08 06:35] LABS: BILIRUBIN,TOTAL 0.3 MG/DL (0.1-1.0)
[2020-12-08 06:36] LABS: ALKALINE PHOSPHATASE 172 U/L (40-136); CREATININE SERUM 0.68 MG/DL (0.60-1.30); GFR ESTIMATED > 60
[2020-12-08 06:38] LABS: BUN/CREATININE RATIO 15
[2020-12-08 06:39] LABS: ALANINE AMINOTRANSFERASE 25 U/L (0-55)
[2020-12-08] MEDS: SUCRALFATE 1 GM (CARAFATE) TAB PO SCH ×4 (06:53→20:30)
[2020-12-08] MEDS: RT-ALBUTEROL/IPRATROPIUM 3 ML (DUONEB) VIAL INH SCH ×4 (07:00→18:24)
[2020-12-08] MEDS: NICOTINE 14 MG (NICODERM) PATCH TD SCH (08:16)
[2020-12-08] MEDS: lisINopril 20 MG (PRINIVIL) TABLET PO SCH (08:16)
[2020-12-08] MEDS: meTOprolol TARTRATE 25 MG (LOPRESSOR) TABLET PO SCH ×2 (08:16→20:30)
[2020-12-08] MEDS: amLODIPine 10 MG (NORVASC) TAB PO SCH (08:16)
[2020-12-08] MEDS: METOCLOPRAMIDE INJ 10 MG/2 ML (REGLAN) IVP SCH ×2 (08:18→20:30)
[2020-12-08] MEDS: PANTOPRAZOLE 40 MG (PROTONIX) VIAL IV SCH ×2 (08:18→20:29)
[2020-12-08] MEDS: NICOTINE PATCH REMOVAL TP SCH (08:19)
[2020-12-08] MEDS: SODIUM CHLORIDE 1 GM TABLET PO SCH ×2 (08:20→20:29)
[2020-12-08] MEDS: ANORO ELLIPTA INH SCH (08:20)
[2020-12-08] MEDS: polyethylene glycoL POWDER 17 GM (MIRALAX) PACK PO SCH ×2 (09:00→19:29)
[2020-12-08] MEDS: DOCUSATE SODIUM 100 MG (COLACE) CAP PO SCH ×2 (09:00→20:30)
[2020-12-08] MEDS: SENNA W/DOCUSATE (SENOKOT S) TABLET PO SCH ×2 (09:00→20:30)
--- NOTE | 2020-12-08 10:13 | Progress Note ---
Subjective Date Seen by a Provider: Dec 08, 2020 Time Seen by a Provider: 09:20 Subjective/Events-last exam Patient reports doing well with no complaints. Tolerating diet. Denies any pain. Objective Exam Vital Signs Date Time Temp Pulse Resp B/P (MAP) Pulse Ox O2 Delivery O2 Flow Rate FiO2 12/08/20 07:02 90 Nasal Cannula 1.00 12/08/20 05:07 37.0 91 20 127/84 (98) 93 Nasal Cannula 1.00 12/07/20 20:30 Nasal Cannula 1.00 12/07/20 18:57 91 1.00 12/07/20 16:23 37.0 96 20 132/60 (84) 92 12/07/20 14:38 Room Air 12/07/20 13:43 36.3 92 18 127/60 (82) 94 Nasal Cannula 1.00 I & O 12/08/20 07:00 Intake Total 1540 ml Output Total 3270 ml Balance -1730 ml Capillary Refill : General Appearance: No Apparent Distress, WD/WN Neck: Normal Inspection, Supple Respiratory: Normal Breath Sounds, No Accessory Muscle Use, No Respiratory Distress Cardiovascular: Regular Rate, Rhythm, No Edema Gastrointestinal: normal bowel sounds, non tender, soft, other (Right ileostomy pink and moist, functioning. Left ostomy pink and moist, functioning.) Extremity: Normal Inspection, Normal Range of Motion Neurologic/Psychiatric: Alert, Oriented x3 Skin: Normal Color, Warm/Dry, Other (Mild like abdominal incision C/D/I with wound vac in place. No surrounding redness. Left upper LANE drain with minimal Clear ss to serous drainage.) Results Lab Laboratory Tests 12/08/20 06:05: White Blood Count 6.8, Red Blood Count 2.99L, Hemoglobin 8.9L, Hematocrit 27L, Mean Corpuscular Volume 91, Mean Corpuscular Hemoglobin 30, Mean Corpuscular Hemoglobin Concent 33, Red Cell Distribution Width 14.3, Platelet Count 264, Mean Platelet Volume 9.5, Immature Granulocyte % (Auto) 2, Neutrophils (%) (Auto) 51, Lymphocytes (%) (Auto) 34, Monocytes (%) (Auto) 12, Eosinophils (%) (Auto) 2, Basophils (%) (Auto) 0, Neutrophils # (Auto) 3.4, Lymphocytes # (Auto) 2.3, Monocytes # (Auto) 0.8, Eosinophils # (Auto) 0.1, Basophils # (Auto) 0.0, Immature Granulocyte # (Auto) 0.1, Sodium Level 127L, Potassium Level 4.5, Chloride Level 94L, Carbon Dioxide Level 23, Anion Gap 10, Blood Urea Nitrogen 10, Creatinine 0.68, Estimat Glomerular Filtration Rate > 60, BUN/Creatinine Ratio 15, Glucose Level 107H, Calcium Level 7.8L, Corrected Calcium 9.2, Total Bilirubin 0.3, Aspartate Amino Transf (AST/SGOT) 24, Alanine Aminotransferase (ALT/SGPT) 25, Alkaline Phosphatase 172H, Total Protein 5.6L, Albumin 2.2L Assessment/Plan Assessment/Plan Assess & Plan/Chief Complaint s/p extended right hemicolectomy, end ileostomy, mucous fistula, revision ileostomy, drainage intraabd abscess and VAC placement. VSS WBC 6.8 will change vac about every 5 days. Continue diet. S/P definitive abd closure with biologic mesh on wednesday(12/04) with overlying regular wound vac to allow for subcutaneous and skin secondary intention. Ambulate Continue with rehab therapy [employer]EE [employer] Dec 08, 2020 10:13
[2020-12-08] MEDS: fentaNYL PATCH 25 MCG (DURAGESIC) TD SCH (11:02)
[2020-12-08] MEDS: FENTANYL PATCH REMOVAL TP SCH (11:02)
--- NOTE | 2020-12-08 11:46 | PM&R Progress Note ---
Subjective HPI/CC On Admission Date Seen by Provider: Dec 08, 2020 Time Seen by Provider: 11:45 Subjective/Events-last exam 12/08/20: Patient feels good and feels stronger Hgb 8.9 Sodium level 127 Ileostomy functioning well but bag keep leaking Gluteus cleft stage 2 decubitus ulcer Review of Systems General: Fatigue, Malaise Pulmonary: Dyspnea Objective Exam Vital Signs Vital Signs Date Time Temp Pulse Resp B/P (MAP) Pulse Ox O2 Delivery O2 Flow Rate FiO2 12/08/20 15:10 91 Nasal Cannula 1.00 12/08/20 05:07 37.0 91 20 127/84 (98) Capillary Refill : General Appearance: No Apparent Distress, WD/WN HEENT: PERRL/EOMI, Normal ENT Inspection, Pharynx Normal, Other ([place] severe) Neck: Normal Inspection, Supple Respiratory: Normal Breath Sounds, No Accessory Muscle Use, No Respiratory Distress Cardiovascular: Regular Rate, Rhythm, No Edema Gastrointestinal: Normal Bowel Sounds, No Organomegaly, No Pulsatile Mass, Non Tender, Soft, Other (ileostomy) Back: Normal Inspection, No CVA Tenderness, No Vertebral Tenderness Extremity: Normal Inspection, Normal Range of Motion Neurologic/Psychiatric: Alert, Oriented x3 Skin: Normal Color, Warm/Dry, Other (Mild like abdominal incision C/D/I with wound vac in place. No surrounding redness. Left upper LANE drain with minimal Clear ss to serous drainage.) Lymphatic: No Adenopathy Results/Procedures Lab Laboratory Tests 12/08/20 06:05 Patient resulted labs reviewed. FIM Transfers Therapy Code Descriptions/Definitions Functional [place] Measure: 0=Not Assessed/NA 4=Minimal Assistance 1=Total Assistance 5=Supervision or Setup 2=Maximal Assistance 6=Modified [place] 3=Moderate Assistance 7=Complete IndependenceSCALE: Activities may be completed with or without assistive devices. 9-Oxpfhzpdvb-ulkqeik completes the activity by him/herself with no assistance from a helper. 5-Set-up or Clean-up Assistance-helper sets up or cleans up; patient completes activity. [place] assists only prior to or following the activity. 4-Supervision or Touching Assistance-helper provides verbal cues and/or touching/steadying and/or contact guard assistance as patient completes activity. Assistance may be provided throughout the activity or intermittently. 3-Partial/Moderate Assistance-helper does LESS THAN HALF the effort. [place] lifts, holds or supports trunk or limbs, but provides less than half the effort. 2-Substantial/Maximal Assistance-helper does MORE THAN HALF the effort. [place] lifts or holds trunk or limbs and provides more than half the effort. 2-Zpbzminsl-hnvltq does ALL the effort. Patient does none of the effort to complete the activity. Or, the assistance of 2 or more helpers is required for the patient to complete the activity. If activity was not attempted, code reason: 7-Patient Refused. 9-Not Applicable-not attempted and the patient did not perform the activity before the current illness, exacerbation or injury. 10-Not Attempted due to Environmental Limitations-(lack of equipment, weather restraints, etc.). 88-Not Attempted due to Medical Conditions or Safety Concerns. Roll Left to Right (QC): 3 Sit to Lying (QC): 2 Sit to Stand (QC): 3 Chair/Ixl-lx-Uzccw Xfer(QC): 3 Car Transfer (QC): 88 Gait Training Walk 10 feet (QC): 88 Walk 50 ft with 2 Turns(QC): 88 Walk 150 ft (QC): 88 Walking 10ft/uneven surface-QC: 88 Gait Assistive Device: FWW Wheelchair Training Does the Pt Use a Wheelchair?: Yes Wheel 50 ft with 2 turns (QC): 88 Wheel 150 ft (QC): 88 Type of Wheelchair: Manual Stair Training #of Steps: 0 1 Step (curb) (QC): 88 4 Steps (QC): 88 12 Steps (QC): 88 Balance Picking up an Object (QC): 88 Assessment/Plan Assessment and Plan Assess & Plan/Chief Complaint Assessment: 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 Former smoker Severe presbycusis HTN Hyponatremia 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
[2020-12-08] MEDS ORDERED: ALPRAZolam 0.5 MG (XANAX) TAB PO PRN (12:00)
[2020-12-08 17:09] VITALS: BP 120/57
[2020-12-08] MEDS: ENOXAPARIN 40 MG/0.4 ML (LOVENOX) SYR SC SCH (20:30)
[2020-12-09 05:38] LABS: ALBUMIN 2.3 GM/DL (3.2-4.5); CHLORIDE 94 MMOL/L (98-107); POTASSIUM 4.3 MMOL/L (3.6-5.0); SODIUM 127 MMOL/L (135-145)
[2020-12-09 05:40] LABS: CALCIUM 7.9 MG/DL (8.5-10.1)
[2020-12-09 05:41] LABS: GLUCOSE 112 MG/DL (70-105); TOTAL PROTEIN 5.9 GM/DL (6.4-8.2)
[2020-12-09 05:42] LABS: CARBON DIOXIDE 23 MMOL/L (21-32)
[2020-12-09 05:43] LABS: BILIRUBIN,TOTAL 0.3 MG/DL (0.1-1.0)
[2020-12-09 05:44] LABS: ALKALINE PHOSPHATASE 203 U/L (40-136); GFR ESTIMATED > 60
[2020-12-09 05:45] LABS: BUN/CREATININE RATIO 13
[2020-12-09 05:47] LABS: ALANINE AMINOTRANSFERASE 32 U/L (0-55)
[2020-12-09 05:51] LABS: BASOPHILS % (AUTO) 0 % (0-10); EOSINOPHILS # (AUTO) 0.1 10^3/uL (0.0-0.3); EOSINOPHILS % (AUTO) 1 % (0-10); HEMATOCRIT 27 % (35-52); LYMPHOCYTES # (AUTO) 2.3 10^3/uL (1.0-4.0); LYMPHOCYTES % (AUTO) 31 % (12-44); MEAN CORPUSCULAR HEMOGLOBIN 30 pg (25-34); MEAN CORPUSCULAR HGB CONC 33 g/dL (32-36); MEAN CORPUSCULAR VOLUME 91 fL (80-99); MEAN PLATELET VOLUME 9.3 fL (9.0-12.2); MONOCYTES % (AUTO) 13 % (0-12); NEUTROPHILS # (AUTO) 3.9 10^3/uL (1.8-7.8); NEUTROPHILS % (AUTO) 53 % (42-75); PLATELET COUNT 282 10^3/uL (130-400); WHITE BLOOD COUNT 7.4 10^3/uL (4.3-11.0)
[2020-12-09 05:56] VITALS: BP 119/58
[2020-12-09] MEDS: SUCRALFATE 1 GM (CARAFATE) TAB PO SCH ×4 (06:14→21:49)
[2020-12-09] MEDS: RT-ALBUTEROL/IPRATROPIUM 3 ML (DUONEB) VIAL INH SCH ×4 (06:37→18:33)
[2020-12-09] MEDS: ANORO ELLIPTA INH SCH (06:37)
--- NOTE | 2020-12-09 06:56 | PM&R Progress Note ---
Subjective HPI/CC On Admission Date Seen by Provider: Dec 09, 2020 Time Seen by Provider: 11:00 Subjective/Events-last exam 12/09/20: Patient feels good Hgb 9.0 Sodium 127 2 person assist still Output 600 in ileostomy Lovenox maintained 12/08/20: Patient feels good and feels stronger Hgb 8.9 Sodium level 127 Ileostomy functioning well but bag keep leaking Gluteus cleft stage 2 decubitus ulcer Review of Systems General: Fatigue, Malaise Pulmonary: Dyspnea Neurological: Weakness Objective Exam Vital Signs Vital Signs Date Time Temp Pulse Resp B/P (MAP) Pulse Ox O2 Delivery O2 Flow Rate FiO2 12/10/20 05:40 36.7 100 20 144/67 (92) 93 Nasal Cannula 1.00 Capillary Refill : General Appearance: No Apparent Distress, WD/WN, Chronically ill HEENT: PERRL/EOMI, Normal ENT Inspection, Pharynx Normal, Other ([place] severe) Neck: Normal Inspection, Supple Respiratory: Normal Breath Sounds, No Accessory Muscle Use, No Respiratory Distress Cardiovascular: Regular Rate, Rhythm, No Edema Gastrointestinal: Normal Bowel Sounds, No Organomegaly, No Pulsatile Mass, Non Tender, Soft, Other (ileostomy) Back: Normal Inspection, No CVA Tenderness, No Vertebral Tenderness Extremity: Normal Inspection, Normal Range of Motion Neurologic/Psychiatric: Alert, Oriented x3, No Motor/Sensory Deficits, Normal Mood/Affect, record filing clerk II-XII Norm as Tested, Motor Weakness (3/5 all extremities) Skin: Normal Color, Warm/Dry, Other (Mild like abdominal incision C/D/I with wound vac in place. No surrounding redness. Left upper LANE drain with minimal Clear ss to serous drainage.) Lymphatic: No Adenopathy Results/Procedures Lab Patient resulted labs reviewed. FIM Transfers Therapy Code Descriptions/Definitions Functional [place] Measure: 0=Not Assessed/NA 4=Minimal Assistance 1=Total Assistance 5=Supervision or Setup 2=Maximal Assistance 6=Modified [place] 3=Moderate Assistance 7=Complete IndependenceSCALE: Activities may be completed with or without assistive devices. 8-Feojrjlnry-rkbldyo completes the activity by him/herself with no assistance from a helper. 5-Set-up or Clean-up Assistance-helper sets up or cleans up; patient completes activity. [place] assists only prior to or following the activity. 4-Supervision or Touching Assistance-helper provides verbal cues and/or touching/steadying and/or contact guard assistance as patient completes activity. Assistance may be provided throughout the activity or intermittently. 3-Partial/Moderate Assistance-helper does LESS THAN HALF the effort. [place] lifts, holds or supports trunk or limbs, but provides less than half the effort. 2-Substantial/Maximal Assistance-helper does MORE THAN HALF the effort. [place] lifts or holds trunk or limbs and provides more than half the effort. 1-Wtguvohzk-fsxphc does ALL the effort. Patient does none of the effort to complete the activity. Or, the assistance of 2 or more helpers is required for the patient to complete the activity. If activity was not attempted, code reason: 7-Patient Refused. 9-Not Applicable-not attempted and the patient did not perform the activity b efore the current illness, exacerbation or injury. 10-Not Attempted due to Environmental Limitations-(lack of equipment, weather restraints, etc.). 88-Not Attempted due to Medical Conditions or Safety Concerns. Roll Left to Right (QC): 3 Sit to Lying (QC): 2 Sit to Stand (QC): 3 Chair/Kof-hv-Bboon Xfer(QC): 3 Car Transfer (QC): 88 Gait Training Walk 10 feet (QC): 88 Walk 50 ft with 2 Turns(QC): 88 Walk 150 ft (QC): 88 Walking 10ft/uneven surface-QC: 88 Gait Assistive Device: FWW Wheelchair Training Does the Pt Use a Wheelchair?: Yes Wheel 50 ft with 2 turns (QC): 88 Wheel 150 ft (QC): 88 Type of Wheelchair: Manual Stair Training #of Steps: 0 1 Step (curb) (QC): 88 4 Steps (QC): 88 12 Steps (QC): 88 Balance Picking up an Object (QC): 88 Assessment/Plan Assessment and Plan Assess & Plan/Chief Complaint Assessment: 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 Former smoker Severe presbycusis HTN Hyponatremia 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
--- NOTE | 2020-12-09 06:56 | Individualized Plan of Care ---
Individualized Plan of Care Rehab Nursing IPOC Order Admission Date Dec 07, 2020 at 13:23 Current Orders Orders Admission Order(Inpt,Obs,Sdc) (12/07/20 06:55) Vital Signs: Per Unit Policy ( (12/07/20 06:55) Ko Keller (12/07/20 06:55) Sequential Compression Device Q4H (12/07/20 06:55) Learning And Development Analyst-Inpt Rehab Con (12/07/20 06:55) Rehab Nursing Orders-Ipoc (12/07/20 06:55) Physical Therapy Rehab Orders (12/07/20 06:55) Occupational Therapy Rehab Ord (12/07/20 06:55) Speech Therapy Rehab Orders (12/07/20 06:55) Cbc With Automated Diff (12/08/20 06:00) Comprehensive Metabolic Panel (12/08/20 06:00) Intake & Output 06,14,22 (12/07/20 06:55) Precautions (Aru) (12/07/20 06:55) Weekly Weight WEEK (12/07/20 06:55) Rehab-Intensity Of Therapy (12/07/20 06:55) Initiate Admission Nursing Pro .admission (12/07/20 06:55) Acetaminophen Tablet (Tylenol Tablet) (12/07/20 07:00) Alprazolam Tablet (Xanax Tablet) (12/07/20 07:00) Calcium Carbonate Chew Tablet (Antacid C (12/07/20 07:00) Diphenhydramine Tablet (Benadryl Tablet) (12/07/20 07:00) Docusate Sodium Capsule (Colace Capsule) (12/07/20 09:00) Docusate Sodium Capsule (Colace Capsule) (12/07/20 07:00) Bisacodyl Suppository (Dulcolax Supposit (12/07/20 07:00) Lactulose Oral Solution (Enulose Oral So (12/07/20 07:00) Na Phos/Na Biphos Enema (Fleet Enema Leo (12/07/20 07:00) Guaifenesin/Codeine Syrup (Robitussin Ac (12/07/20 07:00) Loperamide Tablet (Imodium Tablet) (12/07/20 07:00) Melatonin Tablet (Melatonin Tablet) (12/07/20 07:00) Polyethylene Glycol Powder Pkt (Miralax (12/07/20 09:00) Ondansetron Oral Dissolve Tab (Zofran (12/07/20 07:00) Senna S Tablet (Senokot S Tablet) (12/07/20 09:00) Initiate Admission Nursing Pro .admission (12/07/20 06:55) Admission Arrival Bed Request (12/07/20 13:10) Acetaminophen Tablet/Caplet (Tylenol T (12/07/20 14:30) General/Regular (12/07/20 Lunch) Patient Visit (12/07/20 ) Pt Eval High Complexity (12/07/20 ) Oxycodone Immediate Rel Tablet (Oxyir Ta (12/07/20 16:45) Code/Resuscitation (12/07/20 16:39) Oxygen-Administer (12/07/20 16:39) Ko Hose (12/07/20 16:39) General/Regular (12/07/20 Dinner) Acetaminophen Tablet/Caplet (Tylenol T (12/07/20 16:45) Albuterol/Ipra Inhalation Soln (Duoneb I (12/07/20 19:00) Enoxaparin Injection (Lovenox Injection) (12/07/20 21:00) Hydrocodone/Apap Oral Solution (Lortab 7 (12/07/20 16:45) Hydromorphone Injection (Dilaudid Inject (12/07/20 16:45) Haloperidol Injection (Haldol Injectio (12/07/20 16:45) Melatonin Tablet (Melatonin Tablet) (12/07/20 16:45) Metoclopramide Injection (Reglan Injecti (12/07/20 21:00) Miconazole 2% Powder (Desenex Af 2% Powd (12/07/20 16:45) Mineral Oil/Petrolatum Ophth O (Lacri-Moni (12/07/20 16:45) Naloxone Injection (Narcan Injection) (12/07/20 16:45) Nicotine Patch (Nicoderm Patch) (12/08/20 09:00) Ondansetron Injection (Zofran Injectio (12/07/20 16:45) Ondansetron Oral Dissolve Tab (Zofran (12/07/20 16:45) Pantoprazole Injection (Protonix Injecti (12/07/20 21:00) Patient May Use Own Med,Single (Patient (12/08/20 08:00) Phenol Throat [place] (Chloraseptic [place]) (12/07/20 16:45) Sodium Chloride Flush (Catheter Flush Sy (12/07/20 16:45) Sodium Chloride Tablet (Sodium Chloride (12/07/20 21:00) Sucralfate Tablet (Carafate Tablet) (12/07/20 21:00) Amlodipine Tablet (Norvasc Tablet) (12/08/20 09:00) Diphenhydramine Injection (Benadryl Inje (12/07/20 16:45) Diphenhydramine Tablet (Benadryl Tablet) (12/07/20 16:45) Guaifenesin/Codeine Syrup (Robitussin Ac (12/07/20 16:45) Lisinopril Tablet (Zestril Tablet) (12/08/20 09:00) Metoprolol Tartrate (Ir) Tab (Lopressor (12/07/20 21:00) Oxycodone Immediate Rel Tablet (Oxyir Ta (12/07/20 16:45) Consult Cardiology (12/07/20 16:39) Consult General Surgery (12/07/20 16:39) Consult Wound Care Physician (12/07/20 16:39) Dietary Consult (12/07/20 16:39) Incentive Spirometry Initial (12/07/20 16:39) Pastoral Consult (12/07/20 16:39) Svn Small Volume Nebulizer (12/07/20 16:39) Incentive Spirometry (Nursing) Q2H (12/07/20 16:39) Patch Removal (Patch Removal) (12/08/20 08:59) Fentanyl Patch (Duragesic Patch) (12/08/20 11:00) Patch Removal (Patch Removal) (12/08/20 10:59) Fluid Restriction (12/08/20 06:39) Alprazolam Tablet (Xanax Tablet) (12/08/20 12:00) Cbc With Automated Diff (12/09/20 06:00) Comprehensive Metabolic Panel (12/09/20 06:00) Patient Visit (12/09/20 ) Functional Activities, Ea 15 (12/09/20 ) Exercise Therap, Ea 15 Min (12/09/20 ) Patient Visit (12/09/20 ) Exercise Therap, Ea 15 Min (12/09/20 ) Patient Visit (12/09/20 ) Speech Sound Lang Comp (12/09/20 ) Treat. Speech/Lang/Voice (12/09/20 ) Ensure Plus Vanilla (12/09/20 16:50) Rehab Nursing Orders: Ongoing Assess. of Cognitive Status, Ongoing Assess. of Function Status, Bladder Management, Bladder Scan, Bladder Training, Bowel Management, Bowel Training, Disease Management & Educaiton, DVT Prophylaxis, Fall Prevention, Fluid/Electrolyte/Nutrition Mgmt, Infection Prevention, Medication Management & Education, Management of Risks & Complications, Afia gement of Skin Intergrity, Nutrition Management, Pain Management, Patient/Family Support, Safety Management, Swallow Precautions Intensity of Therapy to be met Patient to be seen: Min.3h per day/5 of 7d PT IPOC Problem List: Activity Tolerance, Functional Strength, Balance, Gait, Transfer, Bed Mobility Treatment Plan: Continue Plan of Care Bed Mobility, Concurrent Therapy, Functional Activity Palak, Functional Strength , Group Therapy, Gait, Safety, Therapeutic Exercise, Transfers Treatment Duration: Jan 04, 2021 Frequency: At least 5 of 7 days/Wk (IRF) Estimated Hrs Per Day: 1.5 hours per day OT IPOC Problems: Decreased Activ Tolerance, Decreased Safety Aware, Dependent Transfers, Edema, Impaired Bed Mobility, Impaired Coordination, Impaired I ADL's, Impaired Self-Care Skills, Restricted Funct UE ROM OT Treatment, Training and Edu: Yes Plan of Care: ADL Retraining, Concurrent Therapy, Functional Mobility, W/C Management Training Treatment Duration: Dec 09, 2020 Frequency: At least 5 of 7 days/Wk (IRF) Estimated Hrs Per Day: [address] IPOC Speech Therapy Treatment Plan: Continue Plan of Care Treatment Duration: Dec 09, 2020 Frequency: Modified Program (IRF) Estimated Hrs Per Day: .5 hour per day Learning And Development Analyst/Case Mgmt Learning And Development Analyst/Case Managemen: Discharge Planning Dietitian/Software Tools Build Engineer Dietitian/Software Tools Build Engineer to monitor nutritional status and make changes and/or recommendations as needed and work with speech pathology on dietary upgrades as the occur. Physician IPOC Medical Issues being managed closely and that require the 24 hour availability of a physician: Recent critical illness will require close monitoring from medical management and surgical management due to increased risk of decompensation from ileostomy and recent surgical abscess Medical Issues: Bowel/Bladder Function, DVT Prophylaxis, Falls Precautions, Fluid/Electrolyte/Nutrition Balance, Infection Protection, Pain Management, Wound Care Brief Synthesis of Preadmission Screen, Post-Admission Evaluation, and Therapy Evaluations: PT OT will focus on regaining function from critical illness and severe myopathy along with management if wound vac and teach w/c mobility in order to regain independence Medical Prognosis: Guarded Anticipated Length of Stay: 14 days WILFREDO MARTÍNEZ DO Dec 09, 2020 06:56
[2020-12-09] MEDS: amLODIPine 10 MG (NORVASC) TAB PO SCH (08:06)
[2020-12-09] MEDS: meTOprolol TARTRATE 25 MG (LOPRESSOR) TABLET PO SCH ×2 (08:06→21:50)
[2020-12-09] MEDS: NICOTINE 14 MG (NICODERM) PATCH TD SCH (08:06)
[2020-12-09] MEDS: lisINopril 20 MG (PRINIVIL) TABLET PO SCH (08:06)
[2020-12-09] MEDS: PANTOPRAZOLE 40 MG (PROTONIX) VIAL IV SCH ×2 (08:06→21:48)
[2020-12-09] MEDS: METOCLOPRAMIDE INJ 10 MG/2 ML (REGLAN) IVP SCH ×2 (08:06→21:49)
[2020-12-09] MEDS: NICOTINE PATCH REMOVAL TP SCH (08:07)
[2020-12-09] MEDS: DOCUSATE SODIUM 100 MG (COLACE) CAP PO SCH ×2 (09:16→21:50)
[2020-12-09] MEDS: SENNA W/DOCUSATE (SENOKOT S) TABLET PO SCH ×2 (09:16→21:50)
[2020-12-09] MEDS: polyethylene glycoL POWDER 17 GM (MIRALAX) PACK PO SCH ×2 (09:16→21:50)
[2020-12-09] MEDS: SODIUM CHLORIDE 1 GM TABLET PO SCH ×2 (10:06→21:49)
--- NOTE | 2020-12-09 10:35 | Physical Therapy Daily Note ---
PT Daily Note-Current Subjective Pt supine in bed upon arrival to room, but is agreeable to work with PT. No reports of pain. Appearance Following session, pt reclined in bed with OT present in room. No further needs Mental Status Patient Orientation: Person Attachments: Colostomy/Ileostomy, Oxygen, Lam Catheter, Other-See Comments (wound vac) Transfers SCALE: Activities may be completed with or without assistive devices. 0-Nxsencwesc-mdnakbv completes the activity by him/herself with no assistance from a helper. 5-Set-up or Clean-up Assistance-helper sets up or cleans up; patient completes activity. [place] assists only prior to or following the activity. 4-Supervision or Touching Assistance-helper provides verbal cues and/or touchin g/steadying and/or contact guard assistance as patient completes activity. Assistance may be provided throughout the activity or intermittently. 3-Partial/Moderate Assistance-helper does LESS THAN HALF the effort. [place] lifts, holds or supports trunk or limbs, but provides less than half the effort. 2-Substantial/Maximal Assistance-helper does MORE THAN HALF the effort. [place] lifts or holds trunk or limbs and provides more than half the effort. 0-Lybmxtyck-ugnhss does ALL the effort. Patient does none of the effort to complete the activity. Or, the assistance of 2 or more helpers is required for the patient to complete the activity. If activity was not attempted, code reason: 7-Patient Refused. 9-Not Applicable-not attempted and the patient did not perform the activity before the current illness, exacerbation or injury. 10-Not Attempted due to Environmental Limitations-(lack of equipment, weather restraints, etc.). 88-Not Attempted due to Medical Conditions or Safety Concerns. Roll Left & Right (QC): 4 Sit to Lying (QC): 3 Lying to Sitting/Side of Bed(Q: 4 Sit to Stand (QC): 2 Practiced rolling activities x 5 to both (R) and (L) sides. She was then able to complete with only verbal cueing. On sit to stand pt requires mod A and cueing to pull hips underneath her as she stays forward flexed. Pt stood x 3 . Exercises Supine Ex: Bridging, Ankle pumps, Quad Set, Rolling, Glut sets, Heel Slides Supine Reps: 20 Treatments Following sit to stand activities OT/PT cotreat due to skill of 2 clinicians required which a regional rehabilitation director could not perform in order to coordinate UE/LEs and due to pt's limitations in mobility, strength, endurance, and transfers. OT focused on UEs and ADLS, while PT focused on transfers, LE strength, and balance. Pt sat at EOB for approx 15-20 minutes completing bed bath. During this, pt requests to return to supine as she is fatigued. Pt with Min A to get legs back into bed. At this time, PT left and OT stayed to complete treatment, Assessment Current Status: Fair Progress Pt with limitations in endurance, strength, mobility, and balance that impact her functional mobility. Will continue to progress activity tolerance as able. PT Short Term Goals Short Term Goals Time Frame: Dec 21, 2020 Roll Left & Right: 4 Sit to lyin Lying to sitting on side of be: 4 Sit to stand: 4 Chair/tyb-ys-ayyox transfer: 4 Toilet transfer: 4 Car transfer: 3 Walk 10 feet: 4 Walk 50 feet with two turns: 4 Walk 150 feet: 4 Walking 10ft on uneven surface: 4 1 step (curb): 4 Does pt use a wc or scooter: Yes Wheel 50ft w/2 turns: 4 Wheel 150 feet: 4 Type: Manual PT Director Of Coding Goals Long-Term Goals PT Long-Term Goals Time Frame: Jan 04, 2021 Roll Left & Right (QC): 6 Sit to Lying (QC): 6 Lying-Sitting on Side/Bed(QC): 6 Sit to Stand (QC): 6 Chair/Ujw-nd-Jcdmp Xfer(QC): 6 Toilet Transfer (QC): 6 Car Transfer (QC): 5 Does the Patient Walk: Yes Walk 10 feet (QC): 6 Walk 50ft with 2 Turns (QC): 6 Walk 150 ft (QC): 5 Walking 10ft on Uneven Surface: 6 1 Step (curb) (QC): 5 4 Steps (QC): 5 12 Steps (QC): 4 Picking up an Object (QC): 4 Does the Pt use WC or Scooter?: Yes Wheel 50 feet with 2 turns (QC: 6 Type: Manual Wheel 150 feet: 6 Type: Manual PT Plan Problem List Problem List: Activity Tolerance, Functional Strength, Safety, Balance, Gait, Transfer, Bed Mobility, ROM Treatment/Plan Treatment Plan: Continue Plan of Care Treatment Plan: Bed Mobility, Concurrent Therapy, Functional Activity Palak, Functional Strength, Group Therapy, Gait, Safety, Therapeutic Exercise, Tr caleb Treatment Duration: Jan 04, 2021 Frequency: At least 5 of 7 days/Wk (IRF) Estimated Hrs Per Day: 1.5 hours per day Patient and/or Family Agrees t: Yes Time/GCodes Time In: 900 Time Out: 1000 Total Billed Treatment Time: 60 Total Billed Treatment 1 visit FA (45') EX (15') RANJAN RUCKER PT Dec 09, 2020 10:35
--- NOTE | 2020-12-09 11:01 | Progress Note - Cardiology ---
Cardiology SOAP Progress Note Subjective: Sitting up in bed this morning Talkative this morning No c/o CP, SOB or palpitations Objective: I&O/Vital Signs 12/25/20 12/25/20 12/26/20 12/26/20 21:48 21:55 05:37 07:50 Temp 36.0 Pulse 98 77 Resp 20 20 B/P (MAP) 132/61 (84) 104/54 (71) Pulse Ox 91 91 94 O2 Delivery Room Air Room Air Room Air Room Air 12/26/20 00:00 Intake Total 850 ml Output Total 1205 ml Balance -355 ml Constitutional: AAO x 3, well-developed, well-nourished Respiratory: No accessory muscle use, No respiratory distress; lungs clear to auscultation Cardiovascular: regular rate-rhythm; No JVD; S1 and S2 Gastrointestional: other (post op abdomen - ileostomy in place - wound vac in place) Extremities: no lower extremity edema bilateral Neurologic/Psychiatric: grossly intact (moves all extremities) Skin: No rash on exposed areas, No ulcerations on exposed areas Results/Procedures: Labs Microbiology 12/24/20 Urine Culture - Preliminary, Resulted Klebsiella pneumoniae A/P: Assessment: S/p extended right hemicolectomy, end ileostomy, revision ileostomy, drainage of intraabdominal abscess and VAC placement Hyponatremia of undetermined etiology - management per Medical services Ac resp failure following above surgeries COPD H/o hypertension and hyperlipidemia H/o tobacco use Plan: Continue current cardiac regimen Monitor lab MONTY MYERS Dec 09, 2020 11:01
--- NOTE | 2020-12-09 11:33 | Physical Therapy Daily Note ---
PT Daily Note-Current Subjective Pt supine in bed upon arrival to room, agreeable to PT session at this time. Appearance Following session, pt supine in bed with all needs met. Call light and tray with in reach Mental Status Patient Orientation: Person, Place Attachments: Oxygen, Lam Catheter, Other-See Comments (wound vac) Transfers SCALE: Activities may be completed with or without assistive devices. 1-Hkwqhnfvgk-epcrxjx completes the activity by him/herself with no assistance from a helper. 5-Set-up or Clean-up Assistance-helper sets up or cleans up; patient completes activity. [place] assists only prior to or following the activity. 4-Supervision or Touching Assistance-helper provides verbal cues and/or touching/steadying and/or contact guard assistance as patient completes activity. Assistance may be provided throughout the activity or intermittently. 3-Partial/Moderate Assistance-helper does LESS THAN HALF the effort. [place] lifts, holds or supports trunk or limbs, but provides less than half the effort. 2-Substantial/Maximal Assistance-helper does MORE THAN HALF the effort. [place] lifts or holds trunk or limbs and provides more than half the effort. 8-Jsaxjinlm-yzfspd does ALL the effort. Patient does none of the effort to complete the activity. Or, the assistance of 2 or more helpers is required for the patient to complete the activity. If activity was not attempted, code reason: 7-Patient Refused. 9-Not Applicable-not attempted and the patient did not perform the activity before the current illness, exacerbation or injury. 10-Not Attempted due to Environmental Limitations-(lack of equipment, weather restraints, etc.). 88-Not Attempted due to Medical Conditions or Safety Concerns. Exercises Supine Ex: Ankle pumps, Quad Set, Glut sets, Lower trunk rotation, Heel Slides, Short Arc Quads Supine Reps: 20 Assessment Current Status: Good Progress Pt denied sit-stand exercise due to fatigue from AM session, will continue to progress OOB activities PT Short Term Goals Short Term Goals Time Frame: Dec 21, 2020 Roll Left & Right: 4 Sit to lyin Lying to sitting on side of be: 4 Sit to stand: 4 Chair/mwm-qr-yumev transfer: 4 Toilet transfer: 4 Car transfer: 3 Walk 10 feet: 4 Walk 50 feet with two turns: 4 Walk 150 feet: 4 Walking 10ft on uneven surface: 4 1 step (curb): 4 Does pt use a wc or scooter: Yes Wheel 50ft w/2 turns: 4 Wheel 150 feet: 4 Type: Manual PT Retirement Goals Manager Government Goals PT Manager Government Goals Time Frame: Jan 04, 2021 Roll Left & Right (QC): 6 Sit to Lying (QC): 6 Lying-Sitting on Side/Bed(QC): 6 Sit to Stand (QC): 6 Chair/Rah-aw-Gfgip Xfer(QC): 6 Toilet Transfer (QC): 6 Car Transfer (QC): 5 Does the Patient Walk: Yes Walk 10 feet (QC): 6 Walk 50ft with 2 Turns (QC): 6 Walk 150 ft (QC): 5 Walking 10ft on Uneven Surface: 6 1 Step (curb) (QC): 5 4 Steps (QC): 5 12 Steps (QC): 4 Picking up an Object (QC): 4 Does the Pt use WC or Scooter?: Yes Wheel 50 feet with 2 turns (QC: 6 Type: Manual Wheel 150 feet: 6 Type: Manual PT Plan Problem List Problem List: Activity Tolerance, Functional Strength, Safety, Balance, Gait, Transfer, Bed Mobility, ROM Treatment/Plan Treatment Plan: Continue Plan of Care Treatment Plan: Bed Mobility, Concurrent Therapy, Functional Activity Palak, Functional Strength, Group Therapy, Gait, Safety, Therapeutic Exercise, Transfers Treatment Duration: Jan 04, 2021 Frequency: At least 5 of 7 days/Wk (IRF) Estimated Hrs Per Day: 1.5 hours per day Patient and/or Family Agrees t: Yes Time/GCodes Time In: 1108 Time Out: 1120 Total Billed Treatment Time: 20 Total Billed Treatment 1 visit EX (20') RANJAN RUCKER PT Dec 09, 2020 11:33
--- NOTE | 2020-12-09 11:44 | ST Cognitive Linguistic Eval ---
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 Chapman Medical History Pertinent Medical History: COPD, HTN Reviewed History: Yes Social History Current Living Status: Other Family Speech PLF-Current Status Prior Level of Function Patient lives with her sister in their home. Patient was independent for most of her daily needs prior to admisstion. Subjective Patient was pleasant and cooperative with the cognitive assessment. Language Eval: Auditory Comprehends Simple Yes/No Ques: Functional Indent/Objects Multiple Ort[place]: Functional Ident/Pics in Multiple Ortiz: Functional Follows 1-Step Commands: Functional Follows Complex Directions: Mild Follows General Conversations: Functional Language Eval: Verbal Language Completes Spontaneous Greeting: Functional Produces Auto, Serial Info: Functional Imitates Simple Words/Phrases: Functional Word Finding: Mild Requests Basic Needs: Functional Expresses Complex Ideas: Mild Objective Cognitive Domain Attention: WNL Memory: Mild Problem Solving: Mild Executive Functions: Mild Composite Severity Rating: Mild Clock Drawing Severity Rating: Mild Objective Formal/Standardized Tests [facility] Status ([facility] [[email or web address] Results 22/30, Mild Neurocognitive Disorder Oral Motor/Speech Production Within Normal Limits Impression Patient is a pleasant 75 y/o female who was admitted to the ARU following several surgeries and medical changes. Patient was given the UMS at bedside with a score of 22/30 obtained. This score is within the MNCD range of function which indicates the need for further ST services. These services will focus on safety awareness, memory and problem solving so that she may return home safer. Speech Patient Assess Expression of Ideas/Wants: Exhibits (3) Understanding Verbal Content: Usually Understands (3) Brief Interview-Mental Status: Yes Repetition of Three Words: Three (3) Temporal Orientation: Year: Correct (3) Temporal Orientation: Month: Accurate within 5 days(2) Temporal Orientation: Day: Correct (1) Recall : Wear to say "Sock": Yes,after cueing (1) Recall : Color: Yes, after cueing (1) Recall : Bed: Yes,after cueing (1) Memory/Recall Ability: Current season, That he or she is in a hsp/hsp unit Speech Short Term Goals Short Term Goals Short Term Goals 1) Patient will complete memory tasks related to her daily needs with minimal cues at 80% or greater. 2) Patient will complete safety awareness tasks related to her daily needs with minimal cues at 80% or greater. 3) Patient will complete problem solving tasks related to her daily needs with minimal cues at 80% or greater. Speech Senior Software Developer Goals Senior Software Developer Goals Patient will improve cognitive-communication necessary for safety and daily living tasks with minimal assist. Speech-Plan Patient/Family Goals Patient/Family Goals: Patient plans on returning to her home where she lives with her sister. Treatment Plan Speech Therapy Treatment Plan: Continue Plan of Care Treatment Duration: Dec 26, 2020 Frequency: 4 times per week (Patient will receive skilled ST 4-5x per week) Estimated Hrs Per Day: .5 hour per day Rehab Potential: Guarded Barriers to Learning: Patient's recent complex medical status, age, debility Pt/Family Agrees to Plan: Yes Safety Risks/Education Teaching Recipient: Patient Teaching Methods: Discussion Response to Teaching: Verbalize Understanding Education Topics Provided: Safety within her room, communication of wants/needs Time Speech Therapy Time In: 10:30 Speech Therapy Time Out: 11:00 Total Billed Time: 330 Billed Treatment Time 1, LOC FLYNN BETHAN[facility] ST Dec 09, 2020 11:44
--- NOTE | 2020-12-09 13:38 | Occupational Therapy Eval ---
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 has had extensive hospitalization currently. 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 Reviewed History: Yes Social History Home: Single Level Current Living Status: Other Family Entry Into Home: Stairs With Railing Steps Into Home: 3 ADL-Prior Level of Function SCALE: Activities may be completed with or without assistive devices. 4-Vapbgmhjok-gyqwctg completes the activity by him/herself with no assistance from a helper. 5-Set-up or Clean-up Assistance-helper sets up or cleans up; patient completes activity. [place] assists only prior to or following the activity. 4-Supervision or Touching Assistance-helper provides verbal cues and/or touching/steadying and/or contact guard assistance as patient completes activit y. Assistance may be provided throughout the activity or intermittently. 3-Partial/Moderate Assistance-helper does LESS THAN HALF the effort. [place] lifts, holds or supports trunk or limbs, but provides less than half the effort. 2-Substantial/Maximal Assistance-helper does MORE THAN HALF the effort. [place] lifts or holds trunk or limbs and provides more than half the effort. 9-Qbobgoyah-fvtndz does ALL the effort. Patient does none of the effort to complete the activity. Or, the assistance of 2 or more helpers is required for the patient to complete the activity. If activity was not attempted, code reason: 7-Patient Refused. 9-Not Applicable-not attempted and the patient did not perform the activity before the current illness, exacerbation or injury. 10-Not Attempted due to Environmental Limitations-(lack of equipment, weather restraints, etc.). 88-Not Attempted due to Medical Conditions or Safety Concerns. ADL PLOF Comments Pt. states that she was independent prior to this hospitalization. She does not use an assistive device but does have a walker. Self Care: Independent Functional Cognition: Independent DME/Equipment: Shower, Tub/Shower, Toilet/Riser DME/Equipment Comments Walker Drive Self: Yes OT Current Status Subjective No pain reported, but pt. does state that she is very tired. Appearance Pt. in bed. Alert but requires encouragement throughout. Mental Status/Objective Patient Orientation: Person, Place, Time, Situation Attachments: Colostomy/Ileostomy, Drains, Lam Catheter, IV, Oxygen Current Glasses/Contacts: Yes Dentures/Partials: Yes Hand Dominance: Right Upper Extremity ROM WFL ADL-Treatment Eating (QC): 5 Oral Hygiene (QC): 4 (At bed level) Shower/Bathe Self (QC): 3 (Mod assist. ) Upper Body Dressing (QC): 7 Lower Body Dressing (QC): 7 On/Off Footwear (QC): 3 (Pt. able to remove slipper socks at bed level, but unable to don them.) Toileting Hygiene (QC): 1 (Pt. has colostomy and catheter.) Other Treatments Pt. seen for partial co-treatment with PT due to low endurance, fatigue, and poor mobility. Pt. evaluated by OT in a.m. Came back to co-treat with PT. Pt. sitting on side of bed. Stands with PT, but unable to stand very long. Agrees to attempt sponge bath seated on side of bed. Pt. requests to transfer sit- supine due to fatigue. Transfers with min assist and declines further activity. PT assessing mobility and transfers while OT facilitates ADL skills. Pt. able to cleanse red area supine in bed, but unable to wash feet. Able to doff slipper socks, but unable to don them. OT does this for her. PT leaves room and HOB is elevated. Pt. brushes hair and teeth at this level. All needs met. Education OT Patient Education: Correct positioning, Exercise program, Modified ADL techniques, Progress toward Goal/Update tx plan, Purpose of tx/functional activities, Reviewed precautions, Rehab process, Transfer techniques Teaching Recipient: Patient Teaching Methods: Demonstration, Discussion Response to Teaching: Verbalize Understanding, Return Demonstration OT Short Term Goals Short Term Goals Time Frame: Dec 23, 2020 Eatin Oral hygiene: 4 Toileting hygiene: 3 Shower/bathe self: 3 Upper body dressin Lower body dressin Putting on/taking off footwear: 3 OT Nursing Home Goals Nursing Home Goals Time Frame: Jan 06, 2021 Eating (QC): 6 Oral Hygiene (QC): 6 Toileting Hygiene (QC): 4 Shower/Bathe Self (QC): 4 Upper Body Dressing (QC): 5 Lower Body Dressing (QC): 4 On/Off Footwear (QC): 4 Additional Goals: 1-Demonstrate ADL Tasks, 2-Verbalize Understanding, 3- ImproveStrength/Palak 1=Demonstrate adherence to instructed precautions during ADL tasks. 2=Patient will verbalize/demonstrate understanding of assistive devices/modifications for ADL. 3=Patient will improve strength/tolerance for activity to enable patient to perform ADL's. OT Education/Plan Problem List/Assessment Assessment: Decreased Activ Tolerance, Decreased UE Strength, Dependent Transfers, Impaired Bed Mobility, Impaired Funct Balance, Impaired I ADL's, Impaired Self-Care Skills Discharge Recommendations Plan/Recommendations: Continue POC Therapy Discharge Recommendati: Home & Family, Post Acute OT Equpiment Recommendations-D/C: Hip Kit Treatment Plan/Plan of Care Treatment,Training & Education: Yes Patient would benefit from OT for education, treatment and training to promote independence in ADL's, mobility, safety and/or upper extremity function for ADL's. Plan of Care: ADL Retraining, Functional Mobility, UE Funct Exercise/Act Treatment Duration: Jan 06, 2021 Frequency: At least 5 of 7 days/Wk (IRF) Estimated Hrs Per Day: 1.5 hours per day Agreement: Yes Rehab Potential: Fair Time/GCodes Start Time: 08:05 Stop Time: 10:10 Total Time Billed (hr/min): 45 Billed Treatment Time 2025-3015 1, EVH x 10minutes [id number] ADL x 35minutes ([id number]-treatment with PT. Please see above note for designated roles.) KOKI STOKES OT Dec 09, 2020 13:38
--- NOTE | 2020-12-09 14:07 | Occupational Ther Daily Note ---
OT Current Status-Daily Note Subjective No pain reported. Appearance Pt. in bed. Agrees to work with OT but does not want to transfer to side of bed. States that she just ate and her belly is "too full." Mental Status/Objective Patient Orientation: Person, Place, Time, Situation ADL-Treatment Therapy Code Descriptions/Definitions Functional [place] Measure: 0=Not Assessed/NA 4=Minimal Assistance 1=Total Assistance 5=Supervision or Setup 2=Maximal Assistance 6=Modified [place] 3=Moderate Assistance 7=Complete IndependenceSCALE: Activities may be completed with or without assistive devices. 6-Ythhzsplqw-ysxjngb completes the activity by him/herself with no assistance from a helper. 5-Set-up or Clean-up Assistance-helper sets up or cleans up; patient completes activity. [place] assists only prior to or following the activity. 4-Supervision or Touching Assistance-helper provides verbal cues and/or touching/steadying and/or contact guard assistance as patient completes activity. Assistance may be provided throughout the activity or intermittently. 3-Partial/Moderate Assistance-helper does LESS THAN HALF the effort. [place] lifts, holds or supports trunk or limbs, but provides less than half the effort. 2-Substantial/Maximal Assistance-helper does MORE THAN HALF the effort. [place] lifts or holds trunk or limbs and provides more than half the effort. 8-Qmqcyudpz-mrgaxe does ALL the effort. Patient does none of the effort to complete the activity. Or, the assistance of 2 or more helpers is required for the patient to complete the activity. If activity was not attempted, code reason: 7-Patient Refused. 9-Not Applicable-not attempted and the patient did not perform the activity before the current illness, exacerbation or injury. 10-Not Attempted due to Environmental Limitations-(lack of equipment, weather restraints, etc.). 88-Not Attempted due to Medical Conditions or Safety Concerns. Other Treatment OT brought in therapy clothespins and other items to facilitate fine motor coordination and strength. Pt. completed tasks at bed level with no difficulty, just increased time needed. All needs met. Education OT Patient Education: Correct positioning, Exercise program, Progress toward Goal/Update tx plan, Purpose of tx/functional activities, Reviewed precautions, Rehab process Teaching Recipient: Patient OT Short Term Goals Short Term Goals Time Frame: Dec 23, 2020 Eatin Oral hygiene: 4 Toileting hygiene: 3 Shower/bathe self: 3 Upper body dressin Lower body dressin Putting on/taking off footwear: 3 OT Apparatus Operator Goals Long-Term Goals Time Frame: Jan 06, 2021 Eating (QC): 6 Oral Hygiene (QC): 6 Toileting Hygiene (QC): 4 Shower/Bathe Self (QC): 4 Upper Body Dressing (QC): 5 Lower Body Dressing (QC): 4 On/Off Footwear (QC): 4 Additional Goals: 1-Demonstrate ADL Tasks, 2-Verbalize Understanding, 3-ImproveStrength/[place]ak 1=Demonstrate adherence to instructed precautions during ADL tasks. 2=Patient will verbalize/demonstrate understanding of assistive devices/modifications for ADL. 3=Patient will improve strength/tolerance for activity to enable patient to perform ADL's. OT Education/Plan Problem List/Assessment Assessment: Decreased Activ Tolerance, Decreased UE Strength Discharge Recommendations Plan/Recommendations: Continue POC Treatment Plan/Plan of Care Treatment,Training & Education: Yes Patient would benefit from OT for education, treatment and training to promote independence in ADL's, mobility, safety and/or upper extremity function for ADL's. Plan of Care: ADL Retraining, Functional Mobility, UE Funct Exercise/Act Treatment Duration: Jan 06, 2021 Frequency: At least 5 of 7 days/Wk (IRF) Estimated Hrs Per Day: 1.5 hours per day Agreement: Yes Rehab Potential: Fair Time/GCodes Start Time: 12:30 Stop Time: 12:55 Total Time Billed (hr/min): 25 Billed Treatment Time 1, FA x 2 KOKI STOKES OT Dec 09, 2020 14:07
--- NOTE | 2020-12-09 16:18 | Wound Care Assessment ---
Wound Care Assessment Date Seen by Provider: Dec 09, 2020 Time Seen by Provider: 15:45 Chief Complaint Sacral pressure ulcer. HPI The patient is a 75 year old female with a sacral pressure ulcer and what appears to be a healed buttock ulcer. The current dressing is barrier cream. The patient is on a low air loss mattress and the nursing staff is encouraging compliance with an appropriate turning protocol. I would recommend continuing the same regimen. Smoking Status: Current Everyday Smoker Alcohol Use: Denies Use Review of Systems Pulmonary: No Dyspnea Cardiovascular: No: Chest Pain Exam Vital Signs Date Time Temp Pulse Resp B/P (MAP) Pulse Ox O2 Delivery O2 Flow Rate FiO2 12/09/20 10:17 93 Nasal Cannula 1.00 12/09/20 05:56 36.7 90 20 119/58 (78) Capillary Refill : Back: other (Sacral, midline --- 0.8 x 0.8 x 0.1 cm, 100% slough with mod. s.s. drainage.) Results Laboratory Tests 12/09/20 05:24: White Blood Count 7.4, Red Blood Count 3.00L, Hemoglobin 9.0L, Hematocrit 27L, Mean Corpuscular Volume 91, Mean Corpuscular Hemoglobin 30, Mean Corpuscular Hemoglobin Concent 33, Red Cell Distribution Width 14.4, Platelet Count 282, Angelita n Platelet Volume 9.3, Immature Granulocyte % (Auto) 2, Neutrophils (%) (Auto) 53, Lymphocytes (%) (Auto) 31, Monocytes (%) (Auto) 13H, Eosinophils (%) (Auto) 1, Basophils (%) (Auto) 0, Neutrophils # (Auto) 3.9, Lymphocytes # (Auto) 2.3, Monocytes # (Auto) 1.0, Eosinophils # (Auto) 0.1, Basophils # (Auto) 0.0, Immature Granulocyte # (Auto) 0.2H, Sodium Level 127L, Potassium Level 4.3, Chloride Level 94L, Carbon Dioxide Level 23, Anion Gap 10, Blood Urea Nitrogen 9, Creatinine 0.70, Estimat Glomerular Filtration Rate > 60, BUN/Creatinine Ratio 13, Glucose Level 112H, Calcium Level 7.9L, Corrected Calcium 9.3, Total Bilirubin 0.3, Aspartate Amino Transf (AST/SGOT) 30, Alanine Aminotransferase (ALT/SGPT) 32, Alkaline Phosphatase 203H, Total Protein 5.9L, Albumin 2.3L Assessment/Plan/Dx 1. Sacral pressure ulcer, stage 2. 2. Debility. Plan: The patient is encouraged to comply with turning protocol. Continue barrier cream dressings. TONE WELSH MD Dec 09, 2020 16:18
--- NOTE | 2020-12-09 17:09 | Progress Note - Cardiology ---
Cardiology SOAP Progress Note Subjective: Gen malaise and weakness No cp or palp or syncope or shortness of breath at rest No n/v/d Objective: I&O/Vital Signs 12/09/20 12/09/20 12/09/20 05:56 06:37 10:17 Temp 36.7 Pulse 90 Resp 20 B/P (MAP) 119/58 (78) Pulse Ox 92 93 93 O2 Delivery Nasal Cannula Nasal Cannula Nasal Cannula O2 Flow Rate 1.00 1.00 1.00 12/09/20 00:00 Intake Total 700 ml Output Total 1095 ml Balance -395 ml Constitutional: AAO x 3, well-developed, well-nourished Respiratory: No accessory muscle use, No respiratory distress; lungs clear to auscultation Cardiovascular: regular rate-rhythm; No JVD; S1 and S2 Gastrointestional: other (post op abdomen - ileostomy in place - wound vac in place) Extremities: no lower extremity edema bilateral Neurologic/Psychiatric: grossly intact (moves all extremities) Skin: No rash on exposed areas, No ulcerations on exposed areas Results/Procedures: Labs Laboratory Tests 12/09/20 05:24: White Blood Count 7.4, Red Blood Count 3.00L, Hemoglobin 9.0L, Hematocrit 27L, Mean Corpuscular Volume 91, Mean Corpuscular Hemoglobin 30, Mean Corpuscular Hemoglobin Concent 33, Red Cell Distribution Width 14.4, Platelet Count 282, Mean Platelet Volume 9.3, Immature Granulocyte % (Auto) 2, Neutrophils (%) (Auto) 53, Lymphocytes (%) (Auto) 31, Monocytes (%) (Auto) 13H, Eosinophils (%) (Auto) 1, Basophils (%) (Auto) 0, Neutrophils # (Auto) 3.9, Lymphocytes # (Auto) 2.3, Monocytes # (Auto) 1.0, Eosinophils # (Auto) 0.1, Basophils # (Auto) 0.0, Immature Granulocyte # (Auto) 0.2H, Sodium Level 127L, Potassium Level 4.3, Ch loride Level 94L, Carbon Dioxide Level 23, Anion Gap 10, Blood Urea Nitrogen 9, Creatinine 0.70, Estimat Glomerular Filtration Rate > 60, BUN/Creatinine Ratio 13, Glucose Level 112H, Calcium Level 7.9L, Corrected Calcium 9.3, Total Bilirubin 0.3, Aspartate Amino Transf (AST/SGOT) 30, Alanine Aminotransferase (ALT/SGPT) 32, Alkaline Phosphatase 203H, Total Protein 5.9L, Albumin 2.3L Laboratory Tests 12/08/20 06:05 12/09/20 05:24 A/P: Assessment: S/p extended right hemicolectomy, end ileostomy, revision ileostomy, drainage of intraabdominal abscess and VAC placement Hyponatremia of undetermined etiology - management by Med crescencio COPD H/o hypertension and hyperlipidemia H/o tobacco use Plan: Cardiac status appears stable Monitor lab JENNIFER JUAREZ MD FACP FACC [facility]S Dec 09, 2020 17:08
--- NOTE | 2020-12-09 17:15 | Progress Note ---
Subjective Date Seen by a Provider: Dec 09, 2020 Time Seen by a Provider: 16:00 Subjective/Events-last exam doing well. tolerating diet. functional ostomies. tolerating rehab. wound vac changed today. Objective Exam Vital Signs Date Time Temp Pulse Resp B/P (MAP) Pulse Ox O2 Delivery O2 Flow Rate FiO2 12/09/20 10:17 93 Nasal Cannula 1.00 12/09/20 06:37 93 Nasal Cannula 1.00 12/09/20 05:56 36.7 90 20 119/58 (78) 92 Nasal Cannula 1.00 12/08/20 20:20 Nasal Cannula 1.00 12/08/20 18:24 93 Nasal Cannula 1.00 12/08/20 17:09 36.8 100 20 120/57 (78) 95 Nasal Cannula 1.00 I & O 12/09/20 07:00 Intake Total 1000 ml Output Total 2945 ml Balance -1945 ml Capillary Refill : General Appearance: No Apparent Distress HEENT: PERRL/EOMI Neck: Full Range of Motion Respiratory: Decreased Breath Sounds, Wheezing Cardiovascular: Regular Rate, Rhythm Gastrointestinal: normal bowel sounds, soft Extremity: Normal Capillary Refill Neurologic/Psychiatric: Alert, Oriented x3 Lymphatic: No Adenopathy Results Lab Laboratory Tests 12/09/20 05:24: White Blood Count 7.4, Red Blood Count 3.00L, Hemoglobin 9.0L, Hematocrit 27L, Mean Corpuscular Volume 91, Mean Corpuscular Hemoglobin 30, Mean Corpuscular Hemoglobin Concent 33, Red Cell Distribution Width 14.4, Platelet Count 282, Mean Platelet Volume 9.3, Immature Granulocyte % (Auto) 2, Neutrophils (%) (Auto) 53, Lymphocytes (%) (Auto) 31, Monocytes (%) (Auto) 13H, Eosinophils (%) (Auto) 1, Basophils (%) (Auto) 0, Neutrophils # (Auto) 3.9, Lymphocytes # (Auto) 2.3, Monocytes # (Auto) 1.0, Eosinophils # (Auto) 0.1, Basophils # (Auto) 0.0, Immature Granulocyte # (Auto) 0.2H, Sodium Level 127L, Potassium Level 4.3, Chloride Level 94L, Carbon Dioxide Level 23, Anion Gap 10, Blood Urea Nitrogen 9, Creatinine 0.70, Estimat Glomerular Filtration Rate > 60, BUN/Creatinine Ratio 13, Glucose Level 112H, Calcium Level 7.9L, Corrected Calcium 9.3, Total Bilirubin 0.3, Aspartate Amino Transf (AST/SGOT) 30, Alanine Aminotransferase (ALT/SGPT) 32, Alkaline Phosphatase 203H, Total Protein 5.9L, Albumin 2.3L Assessment/Plan Assessment/Plan Assess & Plan/Chief Complaint transverse colonic ca s/p extended RHC, end ileostomy and mucous fistula, fascial dehiscence and fascial closure with biologic mesh. continue wound vac for secondary closure. cont rehab MICHAEL XIONG MD Dec 09, 2020 17:15
[2020-12-09 18:00] VITALS: BP 135/63
[2020-12-09 21:05] VITALS: BP 130/60
[2020-12-09] MEDS: ENOXAPARIN 40 MG/0.4 ML (LOVENOX) SYR SC SCH (21:49)
[2020-12-09] MEDS: HYDROcodone/APAP 7.5MG-325 MG/15 ML (LORTAB) UDC PO PRN (22:11)
[2020-12-10 05:40] VITALS: BP 144/67
[2020-12-10] MEDS: SUCRALFATE 1 GM (CARAFATE) TAB PO SCH ×4 (06:47→21:24)
[2020-12-10] MEDS: RT-ALBUTEROL/IPRATROPIUM 3 ML (DUONEB) VIAL INH SCH ×4 (07:40→18:39)
[2020-12-10] MEDS: ANORO ELLIPTA INH SCH (07:41)
--- NOTE | 2020-12-10 08:20 | Speech Therapy Daily Note ---
Speech Daily Progress Note Subjective Date Seen by Provider: Dec 10, 2020 Time Seen by Provider: 00:30 Patient was sitting up in her bed watching television when I entered this morning. She states she resting well last night and ate a good breakfast this morning. Objective Patient answered general information questions with 80% accuracy given min to mod v/c's and/or repetitions. Assessment Assessment Current Status: Good Progress Treatment Plan Continue Plan of Care Speech Short Term Goals Short Term Goals Short Term Goals 1) Patient will complete memory tasks related to her daily needs with minimal cues at 80% or greater. 2) Patient will complete safety awareness tasks related to her daily needs with minimal cues at 80% or greater. 3) Patient will complete problem solving tasks related to her daily needs with minimal cues at 80% or greater. Speech Locator Goals Group Home Goals Patient will improve cognitive-communication necessary for safety and daily living tasks with minimal assist. Speech-Plan Patient/Family Goals Patient/Family Goals: Patient plans to return to her home where she lives with her sister. Treatment Plan Speech Therapy Treatment Plan: Continue Plan of Care Treatment Duration: Dec 09, 2020 Frequency: 4 times per week (Patient will receive skilled ST 4-5x per week) Estimated Hrs Per Day: .5 hour per day Rehab Potential: Fair Barriers to Learning: Patient's decreased cognition, age, medical status Pt/Family Agrees to Plan: Yes Safety Risks/Education Teaching Recipient: Patient Teaching Methods: Demonstration, Discussion Response to Teaching: Verbalize Understanding, Return Demonstration Education Topics Provided: Continued safety and communication Time Speech Therapy Time In: 08:15 Speech Therapy Time Out: 08:45 Total Billed Time: 30 Billed Treatment Time 1, LESVIA Trejo Dec 10, 2020 08:20
[2020-12-10] MEDS: amLODIPine 10 MG (NORVASC) TAB PO SCH (09:58)
[2020-12-10] MEDS: PANTOPRAZOLE 40 MG (PROTONIX) VIAL IV SCH ×2 (09:58→21:23)
[2020-12-10] MEDS: meTOprolol TARTRATE 25 MG (LOPRESSOR) TABLET PO SCH ×2 (09:58→21:23)
[2020-12-10] MEDS: NICOTINE 14 MG (NICODERM) PATCH TD SCH (09:58)
[2020-12-10] MEDS: METOCLOPRAMIDE INJ 10 MG/2 ML (REGLAN) IVP SCH ×2 (09:58→21:33)
[2020-12-10] MEDS: lisINopril 20 MG (PRINIVIL) TABLET PO SCH (09:59)
[2020-12-10] MEDS: NICOTINE PATCH REMOVAL TP SCH (10:33)
[2020-12-10] MEDS: SODIUM CHLORIDE 1 GM TABLET PO SCH ×2 (10:33→21:24)
[2020-12-10] MEDS: DOCUSATE SODIUM 100 MG (COLACE) CAP PO SCH ×2 (10:34→21:47)
[2020-12-10] MEDS: polyethylene glycoL POWDER 17 GM (MIRALAX) PACK PO SCH ×2 (10:34→21:47)
[2020-12-10] MEDS: SENNA W/DOCUSATE (SENOKOT S) TABLET PO SCH ×2 (10:34→21:48)
--- NOTE | 2020-12-10 11:19 | PM&R Progress Note ---
Subjective HPI/CC On Admission Date Seen by Provider: Dec 10, 2020 Time Seen by Provider: 11:30 Subjective/Events-last exam 12/10/20: Participation with therapy good just slow Parallel bars but could not stand Fluid restriction maintained 12/09/20: Patient feels good Hgb 9.0 Sodium 127 2 person assist still Output 600 in ileostomy Lovenox maintained 12/08/20: Patient feels good and feels stronger Hgb 8.9 Sodium level 127 Ileostomy functioning well but bag keep leaking Gluteus cleft stage 2 decubitus ulcer Review of Systems General: Fatigue, Malaise Pulmonary: Dyspnea Objective Exam Vital Signs Vital Signs Date Time Temp Pulse Resp B/P (MAP) Pulse Ox O2 Delivery O2 Flow Rate FiO2 12/11/20 07:10 92 Nasal Cannula 1.00 12/11/20 06:25 36.4 88 22 117/63 (81) Capillary Refill : General Appearance: No Apparent Distress, WD/WN, Chronically ill HEENT: PERRL/EOMI, Normal ENT Inspection, Pharynx Normal, Other (seminole severe) Neck: Normal Inspection, Supple Respiratory: Normal Breath Sounds, No Accessory Muscle Use, No Respiratory Distress Cardiovascular: Regular Rate, Rhythm, No Edema Gastrointestinal: Normal Bowel Sounds, No Organomegaly, No Pulsatile Mass, Non Tender, Soft, Other (ileostomy) Back: Normal Inspection, No CVA Tenderness, No Vertebral Tenderness Extremity: Normal Inspection, Normal Range of Motion Neurologic/Psychiatric: Alert, Oriented x3, No Motor/Sensory Deficits, Normal Mood/Affect, double backer II-XII Norm as Tested, Motor Weakness (3/5 all extremities) Skin: Normal Color, Warm/Dry, Other (Mild like abdominal incision C/D/I with wound vac in place. No surrounding redness. Left upper LANE drain with minimal Clear ss to serous drainage.) Lymphatic: No Adenopathy Results/Procedures Lab Patient resulted labs reviewed. FIM Transfers Therapy Code Descriptions/Definitions Functional [place] Measure: 0=Not Assessed/NA 4=Minimal Assistance 1=Total Assistance 5=Supervision or Setup 2=Maximal Assistance 6=Modified [place] 3=Moderate Assistance 7=Complete IndependenceSCALE: Activities may be completed with or without assistive devices. 1-Gpxouodowg-wkwloqt completes the activity by him/herself with no assistance from a helper. 5-Set-up or Clean-up Assistance-helper sets up or cleans up; patient completes activity. [place] assists only prior to or following the activity. 4-Supervision or Touching Assistance-helper provides verbal cues and/or touching/steadying and/or contact guard assistance as patient completes activity. Assistance may be provided throughout the activity or intermittently. 3-Partial/Moderate Assistance-helper does LESS THAN HALF the effort. [place] lifts, holds or supports trunk or limbs, but provides less than half the effort. 2-Substantial/Maximal Assistance-helper does MORE THAN HALF the effort. [place] lifts or holds trunk or limbs and provides more than half the effort. 5-Yozxmzogi-swbnvp does ALL the effort. Patient does none of the effort to complete the activity. Or, the assistance of 2 or more helpers is required for the patient to complete the activity. If activity was not attempted, code reason: 7-Patient Refused. 9-Not Applicable-not attempted and the patient did not perform the activity before the current illness, exacerbation or injury. 10-Not Attempted due to Environmental Limitations-(lack of equipment, weather restraints, etc.). 88-Not Attempted due to Medical Conditions or Safety Concerns. Roll Left to Right (QC): 4 Sit to Lying (QC): 3 Sit to Stand (QC): 2 Chair/Zba-ha-Vnzpa Xfer(QC): 3 Car Transfer (QC): 88 Gait Training Walk 10 feet (QC): 88 Walk 50 ft with 2 Turns(QC): 88 Walk 150 ft (QC): 88 Walking 10ft/uneven surface-QC: 88 Gait Assistive Device: FWW Wheelchair Training Does the Pt Use a Wheelchair?: Yes Wheel 50 ft with 2 turns (QC): 88 Wheel 150 ft (QC): 88 Type of Wheelchair: Manual Stair Training #of Steps: 0 1 Step (curb) (QC): 88 4 Steps (QC): 88 12 Steps (QC): 88 Balance Picking up an Object (QC): 88 ADL-Treatment Eating (QC): 5 Oral Hygiene (QC): 4 (At bed level) Shower/Bathe Self (QC): 3 (Mod assist. ) Upper Body Dressing (QC): 7 Lower Body Dressing (QC): 7 On/Off Footwear (QC): 3 (Pt. able to remove slipper socks at bed level, but unable to don them.) Toileting Hygiene (QC): 1 (Pt. 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 Plan: IRF protocol Monitor pain O2 Nebs IS Lovenox 12/08/20: Xanax ordered Ileostomy functioning well but bag leaking Decubitus ulcer management 12/09/20: Monitor fluid restriction Salt tablets Monitor pain Ileostomy function monitoring 12/10/20: Salt tablets Fluid restriction Monitor closely Intensive therapy (1) Myopathy (2) Ileus following gastrointestinal surgery (3) S/P right hemicolectomy (4) Presbycusis of both ears (5) Ileostomy in place (6) Anemia due to acute blood loss (7) Colon cancer (8) Hyponatremia (9) COPD (chronic obstructive pulmonary disease) (10) DVT prophylaxis WILFREDO MARTÍNEZ DO Dec 10, 2020 11:19
--- NOTE | 2020-12-10 11:24 | Occupational Ther Daily Note ---
OT Current Status-Daily Note Subjective No pain reported. Pt. states that she is tired. Requires encouragement throughout. Appearance Pt. in bed. Agrees to therapy. Mental Status/Objective Patient Orientation: Person, Place Attachments: Drains, Lam Catheter, IV, Oxygen ADL-Treatment Therapy Code Descriptions/Definitions Functional [place] Measure: 0=Not Assessed/NA 4=Minimal Assistance 1=Total Assistance 5=Supervision or Setup 2=Maximal Assistance 6=Modified [place] 3=Moderate Assistance 7=Complete IndependenceSCALE: Activities may be completed with or without assistive devices. 8-Qufjsgbaiw-uascxob completes the activity by him/herself with no assistance from a helper. 5-Set-up or Clean-up Assistance-helper sets up or cleans up; patient completes activity. [place] assists only prior to or following the activity. 4-Supervision or Touching Assistance-helper provides verbal cues and/or touching/steadying and/or contact guard assistance as patient completes activity. Assistance may be provided throughout the activity or intermittently. 3-Partial/Moderate Assistance-helper does LESS THAN HALF the effort. [place] lifts, holds or supports trunk or limbs, but provides less than half the effort. 2-Substantial/Maximal Assistance-helper does MORE THAN HALF the effort. [place] l ifts or holds trunk or limbs and provides more than half the effort. 1-Zzlcdekms-amdklf does ALL the effort. Patient does none of the effort to complete the activity. Or, the assistance of 2 or more helpers is required for the patient to complete the activity. If activity was not attempted, code reason: 7-Patient Refused. 9-Not Applicable-not attempted and the patient did not perform the activity before the current illness, exacerbation or injury. 10-Not Attempted due to Environmental Limitations-(lack of equipment, weather restraints, etc.). 88-Not Attempted due to Medical Conditions or Safety Concerns. On/Off Footwear: 3 (Mod assist to doff/don slipper socks with dressing stick and sock aide.) Other Treatment Pt. working with PT when OT came into room. Completed partial co-treatment due to need of skilled assistance x 2 for low endurance and mobility. Pt. transferred supine-sit with CGA. Stood with walker and transferred to wheelchair with mod x 2. PT facilitated leg movement and strength while OT worked on hand placement of walker and transfer toward chair. Pt. self propelled wheelchair to therapy gym with assistance. Worked on standing at parallel bars. Required min x 2, and then mod/max x 2, depending on fatigue level. Pt. requires encouragement to participate at times, and declines attempting taking steps. PT left and pt. participated in arm bike activity. Tolerated 2 minutes, and then 1 minute with rest breaks. Pt. requests to go back to bed. Requires more encouragement to participate. Pt. taken to room and transfers to bed with max assistance. All needs met for positioning and comfort. Pt. with call light and table. Education OT Patient Education: Correct positioning, Exercise program, Modified ADL techniques, Progress toward Goal/Update tx plan, Purpose of tx/functional activities, Reviewed precautions, Rehab process, Transfer techniques Teaching Recipient: Patient Teaching Methods: Demonstration, Discussion Response to Teaching: Verbalize Understanding, Return Demonstration, Reinforcement Needed OT Short Term Goals Short Term Goals Time Frame: Dec 23, 2020 Eatin Oral hygiene: 4 Toileting hygiene: 3 Shower/bathe self: 3 Upper body dressin Lower body dressin Putting on/taking off footwear: 3 OT Aircraft Hydraulic Equipment Mechanic Goals Aircraft Hydraulic Equipment Mechanic Goals Time Frame: Jan 06, 2021 Eating (QC): 6 Oral Hygiene (QC): 6 Toileting Hygiene (QC): 4 Shower/Bathe Self (QC): 4 Upper Body Dressing (QC): 5 Lower Body Dressing (QC): 4 On/Off Footwear (QC): 4 Additional Goals: 1-Demonstrate ADL Tasks, 2-Verbalize Understanding, 3- ImproveStrength/[place] 1=Demonstrate adherence to instructed precautions during ADL tasks. 2=Patient will verbalize/demonstrate understanding of assistive devices/modifications for ADL. 3=Patient will improve strength/tolerance for activity to enable patient to perform ADL's. OT Education/Plan Problem List/Assessment Assessment: Decreased Activ Tolerance, Decreased UE Strength, Dependent Transfers, Impaired I ADL's, Impaired Self-Care Skills Discharge Recommendations Plan/Recommendations: Continue POC Therapy Discharge Recommendati: Post Acute OT Treatment Plan/Plan of Care Treatment,Training & Education: Yes Patient would benefit from OT for education, treatment and training to promote independence in ADL's, mobility, safety and/or upper extremity function for ADL's. Plan of Care: ADL Retraining, Concurrent Therapy, Functional Mobility, W/C Management Training Treatment Duration: Dec 09, 2020 Frequency: At least 5 of 7 days/Wk (IRF) Estimated Hrs Per Day: 1.5 hours per day Agreement: Yes Rehab Potential: Fair Time/GCodes Start Time: 09:45 Stop Time: 11:00 Total Time Billed (hr/min): 75 Billed Treatment Time [id number] 1, FA x 30minutes- Co-treatment with PT. Please see above note for designated roles. [id number] FA x 15minutes, Ex x 30minutes KOKI STOKES OT Dec 10, 2020 11:24
--- NOTE | 2020-12-10 12:11 | Physical Therapy Daily Note ---
PT Daily Note-Current Subjective Pt laying L sidelying upon arrival. Pt agrees to PT and later to PT/OT co- treat. Pain Numeric Pain Scale: 5-Moderate Pain Location: Right, Left Location Body Site: Foot Pain Description: Ache Mental Status Patient Orientation: Person, Place, Situation Attachments: Oxygen, Drains, Other-See Comments (Wound Vac.) Transfers SCALE: Activities may be completed with or without assistive devices. 1-Xdawfwkvsr-okuvnfo completes the activity by him/herself with no assistance from a helper. 5-Set-up or Clean-up Assistance-helper sets up or cleans up; patient completes activity. [place] assists only prior to or following the activity. 4-Supervision or Touching Assistance-helper provides verbal cues and/or touching/steadying and/or contact guard assistance as patient completes activity. Assistance may be provided throughout the activity or intermittently. 3-Partial/Moderate Assistance-helper does LESS THAN HALF the effort. [place] lifts, holds or supports trunk or limbs, but provides less than half the effort. 2-Substantial/Maximal Assistance-helper does MORE THAN HALF the effort. [place] lifts or holds trunk or limbs and provides more than half the effort. 4-Vrlgonjpu-vowzgj does ALL the effort. Patient does none of the effort to complete the activity. Or, the assistance of 2 or more helpers is required for the patient to complete the activity. If activity was not attempted, code reason: 7-Patient Refused. 9-Not Applicable-not attempted and the patient did not perform the activity b efore the current illness, exacerbation or injury. 10-Not Attempted due to Environmental Limitations-(lack of equipment, weather restraints, etc.). 88-Not Attempted due to Medical Conditions or Safety Concerns. Lying to Sitting/Side of Bed(Q: 3 Sit to Stand (QC): 3 Weight Bearing Full Weight Bearing Full Weight Bearing Wheelchair Training Does the Pt Use a Wheelchair?: Yes Wheel 50 ft with 2 turns (QC): 4 Wheel 150 ft (QC): 4 Type of Wheelchair: Manual Exercises Supine Ex: Ankle pumps, Quad Set, Glut sets, Heel Slides, Straight leg raise, Hip abd/add Supine Reps: 15 Treatments Pt completes Supine Ex in bed with several RB. Pt TF to EOB and OT arrives to join tx. Completed partial co-treatment due to need of skilled assistance x 2 for low endurance and mobility. Pt. transferred supine-sit with CGA. Stood with walker and transferred to wheelchair with mod x 2. PT facilitated leg movement and strength while OT worked on hand placement of walker and transfer toward chair. Pt. self propelled wheelchair to therapy gym with assistance. Worked on standing at parallel bars. Required min x 2, and then mod/max x 2, depending on fatigue level. Pt. requires encouragement to participate at times, and declines attempting taking steps. PT departs and OT continues tx. Assessment Current Status: Fair Progress Pt needs encouragement to participate. Pt fatigues easily. PT Short Term Goals Short Term Goals Time Frame: Dec 21, 2020 Roll Left & Right: 4 Sit to lyin Lying to sitting on side of be: 4 Sit to stand: 4 Chair/slj-hg-hpwha transfer: 4 Toilet transfer: 4 Car transfer: 3 Walk 10 feet: 4 Walk 50 feet with two turns: 4 Walk 150 feet: 4 Walking 10ft on uneven surface: 4 1 step (curb): 4 Does pt use a wc or scooter: Yes Wheel 50ft w/2 turns: 4 Wheel 150 feet: 4 Type: Manual PT Fci Goals Fci Goals PT Fci Goals Time Frame: Jan 04, 2021 Roll Left & Right (QC): 6 Sit to Lying (QC): 6 Lying-Sitting on Side/Bed(QC): 6 Sit to Stand (QC): 6 Chair/Srl-sd-Wjowd Xfer(QC): 6 Toilet Transfer (QC): 6 Car Transfer (QC): 5 Does the Patient Walk: Yes Walk 10 feet (QC): 6 Walk 50ft with 2 Turns (QC): 6 Walk 150 ft (QC): 5 Walking 10ft on Uneven Surface: 6 1 Step (curb) (QC): 5 4 Steps (QC): 5 12 Steps (QC): 4 Picking up an Object (QC): 4 Does the Pt use WC or Scooter?: Yes Wheel 50 feet with 2 turns (QC: 6 Type: Manual Wheel 150 feet: 6 Type: Manual PT Plan Problem List Problem List: Activity Tolerance, Functional Strength, Safety, Balance, T ransfer Treatment/Plan Treatment Plan: Continue Plan of Care Treatment Plan: Bed Mobility, Concurrent Therapy, Functional Activity [place], Functional Strength, Group Therapy, Gait, Safety, Therapeutic Exercise, Transfers Treatment Duration: Jan 04, 2021 Frequency: At least 5 of 7 days/Wk (IRF) Estimated Hrs Per Day: 1.5 hours per day Patient and/or Family Agrees t: Yes Safety Risks/Education Patient Education: Transfer Techniques, Correct Positioning, Safety Issues Teaching Recipient: Patient Teaching Methods: Discussion Response to Teaching: Verbalize Understanding Time/GCodes Time In: 900 Time Out: 1015 Total Billed Treatment Time: 75 Total Billed Treatment 1, EX x2 (25m), WCH (15m), & FA x2 (35m) Co-treat w/OT for 30m ([id number]) [employer] SUPERVISING LAW ENFORCEMENT ANALYST Dec 10, 2020 12:11
--- NOTE | 2020-12-10 15:03 | Progress Note - Cardiology ---
Cardiology SOAP Progress Note Subjective: No cp or palp or syncope Shortness of breath better Gen weakness and malaise No n/v Objective: I&O/Vital Signs 12/10/20 12/10/20 12/10/20 12/10/20 05:40 07:42 07:42 08:42 Temp 36.7 Pulse 100 Resp 20 B/P (MAP) 144/67 (92) Pulse Ox 93 96 96 O2 Delivery Nasal Cannula Nasal Cannula Nasal Cannula Nasal Cannula O2 Flow Rate 1.00 1.00 1.00 1.00 12/10/20 14:23 Pulse Ox 96 O2 Delivery Nasal Cannula O2 Flow Rate 1.00 12/09/20 23:59 Intake Total 780 ml Output Total 1465 ml Balance -685 ml Constitutional: AAO x 3, well-developed, well-nourished Respiratory: No accessory muscle use, No respiratory distress; lungs clear to auscultation Cardiovascular: regular rate-rhythm; No JVD; S1 and S2 Gastrointestional: other (post op abdomen - ileostomy in place - wound vac in place) Extremities: no lower extremity edema bilateral Neurologic/Psychiatric: grossly intact (moves all extremities) Skin: No rash on exposed areas, No ulcerations on exposed areas Results/Procedures: Labs Laboratory Tests 12/09/20 05:24 A/P: Assessment: S/p extended right hemicolectomy, end ileostomy, revision ileostomy, drainage of intraabdominal abscess and VAC placement Hyponatremia of undetermined etiology - management by Med crescencio COPD H/o hypertension and hyperlipidemia H/o tobacco use Plan: Cardiac status appears stable Monitor lab JENNIFER JUAREZ MD FACP FAC CCDS Dec 10, 2020 15:03
--- NOTE | 2020-12-10 16:17 | Progress Note ---
Subjective Date Seen by a Provider: Dec 10, 2020 Time Seen by a Provider: 13:00 Subjective/Events-last exam doing well. felt tired after rehab therapy. tolerating diet with functional ostomies. Objective Exam Vital Signs Date Time Temp Pulse Resp B/P (MAP) Pulse Ox O2 Delivery O2 Flow Rate FiO2 12/10/20 14:23 96 Nasal Cannula 1.00 12/10/20 08:42 Nasal Cannula 1.00 12/10/20 07:42 96 Nasal Cannula 1.00 12/10/20 07:42 96 Nasal Cannula 1.00 12/10/20 05:40 36.7 100 20 144/67 (92) 93 Nasal Cannula 1.00 12/09/20 21:52 94 Nasal Cannula 1.00 12/09/20 21:05 95 20 130/60 (83) 94 Nasal Cannula 1.00 12/09/20 18:34 92 Nasal Cannula 1.00 12/09/20 18:00 36.3 97 22 135/63 (87) 94 Nasal Cannula 1.00 I & O0 12/10/20 07:00 Intake Total 1130 ml Output Total 3675 ml Balance -2545 ml Capillary Refill : General Appearance: No Apparent Distress HEENT: PERRL/EOMI Neck: Full Range of Motion Respiratory: Chest Non Tender, Decreased Breath Sounds Cardiovascular: Regular Rate, Rhythm Gastrointestinal: normal bowel sounds, non tender, soft Extremity: Normal Capillary Refill Neurologic/Psychiatric: Alert, Oriented x3 Skin: Normal Color Lymphatic: No Adenopathy Assessment/Plan Assessment/Plan Assess & Plan/Chief Complaint transverse colonic ca s/p extended RHC, end ileostomy and mucous fistula, fascial dehiscence and fascial closure with biologic mesh. continue wound vac for secondary closure. cont rehab MICHAEL XIONG MD Dec 10, 2020 16:17
[2020-12-10 16:33] VITALS: BP 160/78
[2020-12-10 21:20] VITALS: BP 133/67
[2020-12-10] MEDS: MELATONIN 3 MG TABLET PO PRN (21:24)
[2020-12-10] MEDS: ENOXAPARIN 40 MG/0.4 ML (LOVENOX) SYR SC SCH (21:25)
[2020-12-10] MEDS: HYDROcodone/APAP 7.5MG-325 MG/15 ML (LORTAB) UDC PO PRN (21:25)
[2020-12-11 06:25] VITALS: BP 117/63
[2020-12-11] MEDS: SUCRALFATE 1 GM (CARAFATE) TAB PO SCH ×4 (06:44→21:46)
[2020-12-11] MEDS: ANORO ELLIPTA INH SCH (07:10)
[2020-12-11] MEDS: RT-ALBUTEROL/IPRATROPIUM 3 ML (DUONEB) VIAL INH SCH ×4 (07:10→18:49)
[2020-12-11 08:12] LABS: BUN/CREATININE RATIO 12; CALCIUM 7.8 MG/DL (8.5-10.1); CARBON DIOXIDE 21 MMOL/L (21-32); CHLORIDE 97 MMOL/L (98-107); CREATININE SERUM 0.76 MG/DL (0.60-1.30); GFR ESTIMATED > 60; GLUCOSE 128 MG/DL (70-105); POTASSIUM 4.1 MMOL/L (3.6-5.0); SODIUM 129 MMOL/L (135-145)
--- NOTE | 2020-12-11 08:28 | Speech Therapy Daily Note ---
Speech Daily Progress Note Subjective Date Seen by Provider: Dec 11, 2020 Time Seen by Provider: 00:30 Patient was resting in bed and watching the news. She was bright eyed and alert. Very talkative this morning. Objective Patient completed word finding activities of "fill in the blank" with 80% given minimal cues. Assessment Assessment Current Status: Good Progress Treatment Plan Continue Plan of Care Speech Short Term Goals Short Term Goals Short Term Goals 1) Patient will complete memory tasks related to her daily needs with minimal cues at 80% or greater. 2) Patient will complete safety awareness tasks related to her daily needs with minimal cues at 80% or greater. 3) Patient will complete problem solving tasks related to her daily needs with minimal cues at 80% or greater. Speech Finance Director Goals Snf Goals Patient will improve cognitive-communication necessary for safety and daily living tasks with minimal assist. Speech-Plan Patient/Family Goals Patient/Family Goals: Patient plans on returning to her home where she lives with her sister. Treatment Plan Speech Therapy Treatment Plan: Continue Plan of Care Treatment Duration: Dec 09, 2020 Frequency: 4 times per week (Patient will receive skilled ST 4-5x per week) Estimated Hrs Per Day: .5 hour per day Rehab Potential: Fair Barriers to Learning: Patient's recent lengthy illness with medical status change, debility, age, AKHIOK Pt/Family Agrees to Plan: Yes Safety Risks/Education Teaching Recipient: Patient Teaching Methods: Demonstration, Discussion Response to Teaching: Verbalize Understanding, Return Demonstration Education Topics Provided: Continued safety and communication Time Speech Therapy Time In: 08:15 Speech Therapy Time Out: 08:45 Total Billed Time: 30 Billed Treatment Time 1, LESVIA Trejo Dec 11, 2020 08:28
[2020-12-11] MEDS: NICOTINE PATCH REMOVAL TP SCH (09:11)
[2020-12-11] MEDS: SODIUM CHLORIDE 1 GM TABLET PO SCH ×2 (09:12→21:46)
[2020-12-11] MEDS: PANTOPRAZOLE 40 MG (PROTONIX) VIAL IV SCH (09:12)
[2020-12-11] MEDS: NICOTINE 14 MG (NICODERM) PATCH TD SCH (09:14)
[2020-12-11] MEDS: lisINopril 20 MG (PRINIVIL) TABLET PO SCH (09:14)
[2020-12-11] MEDS: meTOprolol TARTRATE 25 MG (LOPRESSOR) TABLET PO SCH ×2 (09:14→21:46)
[2020-12-11] MEDS: amLODIPine 10 MG (NORVASC) TAB PO SCH (09:14)
[2020-12-11] MEDS: HYDROcodone/APAP 7.5MG-325 MG/15 ML (LORTAB) UDC PO PRN (09:14)
[2020-12-11] MEDS: DOCUSATE SODIUM 100 MG (COLACE) CAP PO SCH ×2 (09:15→19:45)
[2020-12-11] MEDS: SENNA W/DOCUSATE (SENOKOT S) TABLET PO SCH ×2 (09:15→19:46)
[2020-12-11] MEDS: METOCLOPRAMIDE INJ 10 MG/2 ML (REGLAN) IVP SCH ×2 (09:15→21:46)
[2020-12-11] MEDS: polyethylene glycoL POWDER 17 GM (MIRALAX) PACK PO SCH ×2 (09:15→19:46)
[2020-12-11 10:31] VITALS: BP 127/65
--- NOTE | 2020-12-11 11:09 | PM&R Progress Note ---
Subjective HPI/CC On Admission Date Seen by Provider: Dec 11, 2020 Time Seen by Provider: 11:15 Subjective/Events-last exam 12/11/20: Patient doing well Sodium level 129 No pain reported Fluid restriction maintained Ileostomy bag no leak Wound vac still in place 12/10/20: Participation with therapy good just slow Parallel bars but could not stand Fluid restriction maintained 12/09/20: Patient feels good Hgb 9.0 Sodium 127 2 person assist still Output 600 in ileostomy Lovenox maintained 12/08/20: Patient feels good and feels stronger Hgb 8.9 Sodium level 127 Ileostomy functioning well but bag keep leaking Gluteus cleft stage 2 decubitus ulcer Review of Systems General: Fatigue, Malaise Objective Exam Vital Signs Vital Signs Date Time Temp Pulse Resp B/P (MAP) Pulse Ox O2 Delivery O2 Flow Rate FiO2 12/11/20 18:49 95 Nasal Cannula 1.00 12/11/20 18:32 36.2 91 20 127/59 (81) Capillary Refill : General Appearance: No Apparent Distress, WD/WN, Chronically ill HEENT: PERRL/EOMI, Normal ENT Inspection, Pharynx Normal, Other (minto severe) Neck: Normal Inspection, Supple Respiratory: Normal Breath Sounds, No Accessory Muscle Use, No Respiratory Distress Cardiovascular: Regular Rate, Rhythm, No Edema Gastrointestinal: Normal Bowel Sounds, No Organomegaly, No Pulsatile Mass, Non Tender, Soft, Other (ileostomy) Back: Normal Inspection, No CVA Tenderness, No Vertebral Tenderness Extremity: Normal Inspection, Normal Range of Motion Neurologic/Psychiatric: Alert, Oriented x3, No Motor/Sensory Deficits, Normal Mood/Affect, stay cutter II-XII Norm as Tested, Motor Weakness (3/5 all extremities) Skin: Normal Color, Warm/Dry, Other (Mild like abdominal incision C/D/I with wound vac in place. No surrounding redness. Left upper LANE drain with minimal Clear ss to serous drainage.) Lymphatic: No Adenopathy Results/Procedures Lab Laboratory Tests 12/11/20 07:45 Patient resulted labs reviewed. FIM Transfers Therapy Code Descriptions/Definitions Functional [place] Measure: 0=Not Assessed/NA 4=Minimal Assistance 1=Total Assistance 5=Supervision or Setup 2=Maximal Assistance 6=Modified [place] 3=Moderate Assistance 7=Complete IndependenceSCALE: Activities may be completed with or without assistive devices. 3-Hjovnydxhh-rgkemjq completes the activity by him/herself with no assistance from a helper. 5-Set-up or Clean-up Assistance-helper sets up or cleans up; patient completes activity. [place] assists only prior to or following the activity. 4-Supervision or Touching Assistance-helper provides verbal cues and/or touching/steadying and/or contact guard assistance as patient completes activity. Assistance may be provided throughout the activity or intermittently. 3-Partial/Moderate Assistance-helper does LESS THAN HALF the effort. [place] lifts, holds or supports trunk or limbs, but provides less than half the effort. 2-Substantial/Maximal Assistance-helper does MORE THAN HALF the effort. [place] lifts or holds trunk or limbs and provides more than half the effort. 1-Mxyhkebmi-qydhql does ALL the effort. Patient does none of the effort to complete the activity. Or, the assistance of 2 or more helpers is required for the patient to complete the activity. If activity was not attempted, code reason: 7-Patient Refused. 9-Not Applicable-not attempted and the patient did not perform the activity before the current illness, exacerbation or injury. 10-Not Attempted due to Environmental Limitations-(lack of equipment, weather restraints, etc.). 88-Not Attempted due to Medical Conditions or Safety Concerns. Roll Left to Right (QC): 4 Sit to Lying (QC): 3 Sit to Stand (QC): 3 Chair/Imv-uf-Fgjgl Xfer(QC): 3 Car Transfer (QC): 88 Gait Training Walk 10 feet (QC): 88 Walk 50 ft with 2 Turns(QC): 88 Walk 150 ft (QC): 88 Walking 10ft/uneven surface-QC: 88 Gait Assistive Device: FWW Wheelchair Training Does the Pt Use a Wheelchair?: Yes Wheel 50 ft with 2 turns (QC): 4 Wheel 150 ft (QC): 4 Type of Wheelchair: Manual Stair Training #of Steps: 0 1 Step (curb) (QC): 88 4 Steps (QC): 88 12 Steps (QC): 88 Balance Picking up an Object (QC): 88 ADL-Treatment Eating (QC): 5 Oral Hygiene (QC): 4 (At bed level) Shower/Bathe Self (QC): 3 (Mod assist. ) Upper Body Dressing (QC): 7 Lower Body Dressing (QC): 7 On/Off Footwear (QC): 3 (Mod assist to doff/don slipper socks with dressing stick and sock aide.) Toileting Hygiene (QC): 1 (Pt. 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 Plan: IRF protocol Monitor pain O2 Nebs IS Lovenox 12/08/20: Xanax ordered Ileostomy functioning well but bag leaking Decubitus ulcer management 12/09/20: Monitor fluid restriction Salt tablets Monitor pain Ileostomy function monitoring 12/10/20: Salt tablets Fluid restriction Monitor closely Intensive therapy 12/11/20: Continue fluid restriction Salt tablets Monitor pain (1) Myopathy (2) Ileus following gastrointestinal surgery (3) S/P right hemicolectomy (4) Presbycusis of both ears (5) Ileostomy in place (6) Anemia due to acute blood loss (7) Colon cancer (8) Hyponatremia (9) COPD (chronic obstructive pulmonary disease) (10) DVT prophylaxis WILFREDO MATRÍNEZ DO Dec 11, 2020 11:09
--- NOTE | 2020-12-11 11:15 | Occupational Ther Daily Note ---
OT Current Status-Daily Note Subjective No pain reported. Mental Status/Objective Patient Orientation: Person, Place Attachments: Colostomy/Ileostomy, Drains, Lam Catheter, Oxygen ADL-Treatment Therapy Code Descriptions/Definitions Functional [place] Measure: 0=Not Assessed/NA 4=Minimal Assistance 1=Total Assistance 5=Supervision or Setup 2=Maximal Assistance 6=Modified [place] 3=Moderate Assistance 7=Complete IndependenceSCALE: Activities may be completed with or without assistive devices. 4-Ubobcnwhlh-mbmltur completes the activity by him/herself with no assistance from a helper. 5-Set-up or Clean-up Assistance-helper sets up or cleans up; patient completes activity. [place] assists only prior to or following the activity. 4-Supervision or Touching Assistance-helper provides verbal cues and/or touching/steadying and/or contact guard assistance as patient completes activity. Assistance may be provided throughout the activity or intermittently. 3-Partial/Moderate Assistance-helper does LESS THAN HALF the effort. [place] lifts, holds or supports trunk or limbs, but provides less than half the effort. 2-Substantial/Maximal Assistance-helper does MORE THAN HALF the effort. [place] lifts or holds trunk or limbs and provides more than half the effort. 6-Qtqbxxvmw-jtqotl does ALL the effort. Patient does none of the effort to complete the activity. Or, the assistance of 2 or more helpers is required for the patient to complete the activity. If activity was not attempted, code reason: 7-Patient Refused. 9-Not Applicable-not attempted and the patient did not perform the activity before the current illness, exacerbation or injury. 10-Not Attempted due to Environmental Limitations-(lack of equipment, weather restraints, etc.). 88-Not Attempted due to Medical Conditions or Safety Concerns. Oral Hygiene (QC): 7 Shower/Bathe Self (QC): 3 (Mod assist overall. Pt. completes sponge bath on side of bed. Pt. requires assistance to wash rear red area and bilateral feet. Pt. able to wash bilateral legs, and all other parts.) Upper Body Dressing (QC): 4 Lower Body Dressing (QC): 3 (Pt. agrees to don street clothing this date. Pt. able to don bilateral feet into pants, but requires assistance in stance to don over hips.) On/Off Footwear: 2 Toileting Hygiene (QC): 1 Other Treatment Pt. participates in partial co-treatment with OT/PT due to low endurance, decreased activity tolerance, and overall fatigue. OT facilitated ADL skills while PT instructed pt. on proper transfer techniques and safety with walker. Pt. transfers supine-sit with SBA, mod assist for sit-stand with walker. Once in stance, pt. requires CGA, but unable to tolerate standing very long. Pt. requires increased rest breaks and constant encouragement. Pt. encouraged to ambulate or take several steps, but declines. Pt. demonstrates poor confidence at times in her abilities, and demonstrates fear at trying. Pt. is able to tolerate sitting on side of bed longer this date, but does request to lay back down quickly in room. Pt. transfers sit-supine with min assist. While at bed level, pt. completes bilateral UE exercises in all planes, for increased overall strength. All needs met. Education OT Patient Education: Correct positioning, Exercise program, Modified ADL techniques, Progress toward Goal/Update tx plan, Purpose of tx/functional activities, Reviewed precautions, Rehab process, Transfer techniques Teaching Recipient: Patient Teaching Methods: Demonstration, Discussion Response to Teaching: Verbalize Understanding, Return Demonstration, Reinforcement Needed OT Short Term Goals Short Term Goals Time Frame: Dec 23, 2020 Eatin Oral hygiene: 4 Toileting hygiene: 3 Shower/bathe self: 3 Upper body dressin Lower body dressin Putting on/taking off footwear: 3 OT Group Home Goals Group Home Goals Time Frame: Jan 06, 2021 Eating (QC): 6 Oral Hygiene (QC): 6 Toileting Hygiene (QC): 4 Shower/Bathe Self (QC): 4 Upper Body Dressing (QC): 5 Lower Body Dressing (QC): 4 On/Off Footwear (QC): 4 Additional Goals: 1-Demonstrate ADL Tasks, 2-Verbalize Understanding, 3- ImproveStrength/[place] 1=Demonstrate adherence to instructed precautions during ADL tasks. 2=Patient will verbalize/demonstrate understanding of assistive devices/modifications for ADL. 3=Patient will improve strength/tolerance for activity to enable patient to perform ADL's. OT Education/Plan Problem List/Assessment Assessment: Decreased Activ Tolerance, Decreased UE Strength, Dependent Transfers, Impaired Funct Balance, Impaired I ADL's, Impaired Self-Care Skills Discharge Recommendations Plan/Recommendations: Continue POC Therapy Discharge Recommendati: Post Acute OT Treatment Plan/Plan of Care Treatment,Training & Education: Yes Patient would benefit from OT for education, treatment and training to promote independence in ADL's, mobility, safety and/or upper extremity function for ADL's. Plan of Care: ADL Retraining, Concurrent Therapy, Functional Mobility, W/C Management Training Treatment Duration: Dec 09, 2020 Frequency: At least 5 of 7 days/Wk (IRF) Estimated Hrs Per Day: 1.5 hours per day Agreement: Yes Rehab Potential: Fair Time/GCodes Start Time: 09:00 Stop Time: 10:15 Total Time Billed (hr/min): 75 Billed Treatment Time 6820-8785 1, ADL x 45minutes, FA x 15minutes- Co-treatment with PT. Please see above note for designated roles. [id number] EX x 15minutes KOKI STOKES OT Dec 11, 2020 11:15
[2020-12-11] MEDS: fentaNYL PATCH 25 MCG (DURAGESIC) TD SCH (11:33)
[2020-12-11] MEDS: FENTANYL PATCH REMOVAL TP SCH (11:33)
--- NOTE | 2020-12-11 12:09 | Progress Note ---
Subjective Date Seen by a Provider: Dec 11, 2020 Time Seen by a Provider: 12:00 Subjective/Events-last exam doing well. tolerating diet and functional ostomies. tolerating rehab Objective Exam Vital Signs Date Time Temp Pulse Resp B/P (MAP) Pulse Ox O2 Delivery O2 Flow Rate FiO2 12/11/20 10:59 93 Nasal Cannula 1.00 12/11/20 10:31 89 127/65 (85) 12/11/20 07:10 92 Nasal Cannula 1.00 12/11/20 06:25 36.4 88 22 117/63 (81) 93 Nasal Cannula 1.00 12/10/20 21:28 95 Nasal Cannula 1.00 12/10/20 21:20 93 18 133/67 (89) 95 Nasal Cannula 1.00 12/10/20 18:39 92 Nasal Cannula 1.00 12/10/20 16:33 36.8 91 20 160/78 (105) 96 Nasal Cannula 1.00 12/10/20 14:23 96 Nasal Cannula 1.00 I & O 12/11/20 07:00 Intake Total 1250 ml Output Total 2270 ml Balance -1020 ml Capillary Refill : General Appearance: No Apparent Distress HEENT: PERRL/EOMI Neck: Full Range of Motion Respiratory: Chest Non Tender Cardiovascular: Regular Rate, Rhythm Gastrointestinal: soft Extremity: Normal Capillary Refill Neurologic/Psychiatric: Alert, Oriented x3 Skin: Normal Color Lymphatic: No Adenopathy Results Lab Laboratory Tests 12/11/20 07:45: Sodium Level 129L, Potassium Level 4.1, Chloride Level 97L, Carbon Dioxide Level 21, Anion Gap 11, Blood Urea Nitrogen 9, Creatinine 0.76, Estimat Glomerular Filtration Rate > 60, BUN/Creatinine Ratio 12, Glucose Level 128H, Calcium Level 7.8L Assessment/Plan Assessment/Plan Assess & Plan/Chief Complaint transverse colonic ca s/p extended RHC, end ileostomy and mucous fistula, fascial dehiscence and fascial closure with biologic mesh. continue wound vac for secondary closure. cont rehab MICHAEL XIONG MD Dec 11, 2020 12:09
--- NOTE | 2020-12-11 12:18 | Physical Therapy Daily Note ---
PT Daily Note-Current Subjective Pt laying Supine in bed upon arrival. Pt agrees to PT/OT co-treat. Mental Status Patient Orientation: Person, Place, Situation Attachments: Colostomy/Ileostomy, Oxygen, Drains, Lam Catheter Transfers SCALE: Activities may be completed with or without assistive devices. 7-Raiclhwenc-fxjnkzq completes the activity by him/herself with no assistance from a helper. 5-Set-up or Clean-up Assistance-helper sets up or cleans up; patient completes activity. [place] assists only prior to or following the activity. 4-Supervision or Touching Assistance-helper provides verbal cues and/or touching/steadying and/or contact guard assistance as patient completes activity. Assistance may be provided throughout the activity or intermittently. 3-Partial/Moderate Assistance-helper does LESS THAN HALF the effort. [place] lifts, holds or supports trunk or limbs, but provides less than half the effort. 2-Substantial/Maximal Assistance-helper does MORE THAN HALF the effort. [place] lifts or holds trunk or limbs and provides more than half the effort. 9-Jubsaqqic-bjsqzz does ALL the effort. Patient does none of the effort to complete the activity. Or, the assistance of 2 or more helpers is required for the patient to complete the activity. If activity was not attempted, code reason: 7-Patient Refused. 9-Not Applicable-not attempted and the patient did not perform the activity before the current illness, exacerbation or injury. 10-Not Attempted due to Environmental Limitations-(lack of equipment, weather restraints, etc.). 88-Not Attempted due to Medical Conditions or Safety Concerns. Lying to Sitting/Side of Bed(Q: 3 Sit to Stand (QC): 3 Weight Bearing Full Weight Bearing Full Weight Bearing Exercises Supine Ex: Ankle pumps, Quad Set Supine Reps: 15 Treatments Pt. participates in partial co-treatment with OT/PT due to low endurance, decreased activity tolerance, and overall fatigue. OT facilitated ADL skills while PT instructed pt. on proper transfer techniques and safety with walker. Pt. transfers supine-sit with SBA, mod assist for sit-stand with walker. Once in stance, pt. requires CGA, but unable to tolerate standing very long. Pt. requires increased rest breaks and constant encouragement. Pt. encouraged to ambulate or take several steps, but declines. Pt. demonstrates poor confidence at times in her abilities, and demonstrates fear at trying. Pt. is able to tolerate sitting on side of bed longer this date, but does request to lay back down quickly in room. Pt. transfers sit-supine with min assist. While at bed level, pt. completes bilateral UE exercises in all planes, for increased overall strength. All needs met. Assessment Current Status: Fair Progress Pt fatigues easily and needs frequent RB. Pt is fearful of standing and declines ambulation when asked. PT Short Term Goals Short Term Goals Time Frame: Dec 21, 2020 Roll Left & Right: 4 Sit to lyin Lying to sitting on side of be: 4 Sit to stand: 4 Chair/fjc-xo-mosib transfer: 4 Toilet transfer: 4 Car transfer: 3 Walk 10 feet: 4 Walk 50 feet with two turns: 4 Walk 150 feet: 4 Walking 10ft on uneven surface: 4 1 step (curb): 4 Does pt use a wc or scooter: Yes Wheel 50ft w/2 turns: 4 Wheel 150 feet: 4 Type: Manual PT Sales And Events Coordinator Goals Group Home Goals PT Sales And Events Coordinator Goals Time Frame: Jan 04, 2021 Roll Left & Right (QC): 6 Sit to Lying (QC): 6 Lying-Sitting on Side/Bed(QC): 6 Sit to Stand (QC): 6 Chair/Wnb-yt-Ezzbk Xfer(QC): 6 Toilet Transfer (QC): 6 Car Transfer (QC): 5 Does the Patient Walk: Yes Walk 10 feet (QC): 6 Walk 50ft with 2 Turns (QC): 6 Walk 150 ft (QC): 5 Walking 10ft on Uneven Surface: 6 1 Step (curb) (QC): 5 4 Steps (QC): 5 12 Steps (QC): 4 Picking up an Object (QC): 4 Does the Pt use WC or Scooter?: Yes Wheel 50 feet with 2 turns (QC: 6 Type: Manual Wheel 150 feet: 6 Type: Manual PT Plan Problem List Problem List: Activity Tolerance, Functional Strength, Safety, Balance, Gait, Transfer Treatment/Plan Treatment Plan: Continue Plan of Care Treatment Plan: Bed Mobility, Concurrent Therapy, Functional Activity [place], Functional Strength, Group Therapy, Gait, Safety, Therapeutic Exercise, Transfers Treatment Duration: Jan 04, 2021 Frequency: At least 5 of 7 days/Wk (IRF) Estimated Hrs Per Day: 1.5 hours per day Patient and/or Family Agrees t: Yes Safety Risks/Education Patient Education: Transfer Techniques, Correct Positioning, Safety Issues Teaching Recipient: Patient Teaching Methods: Discussion Response to Teaching: Reinforcement Needed Time/GCodes Time In: 900 Time Out: 1000 Total Billed Treatment Time: 60 Total Billed Treatment 1, FA x3 (45m), EX (15m) Co-treat w/OT 60m (900-1000) PHILIPP CHAMBERS PTA Dec 11, 2020 12:18
--- NOTE | 2020-12-11 15:05 | Physical Therapy Daily Note ---
PT Daily Note-Current Subjective Pt laying Supine in bed upon arrival. Pt agrees to PT. Pain Location: No Pain Reported Mental Status Patient Orientation: Person, Place Attachments: Colostomy/Ileostomy, Oxygen, Drains, Lam Catheter Transfers SCALE: Activities may be completed with or without assistive devices. 3-Uzopotptsr-hcdvwpj completes the activity by him/herself with no assistance from a helper. 5-Set-up or Clean-up Assistance-helper sets up or cleans up; patient completes activity. [place] assists only prior to or following the activity. 4-Supervision or Touching Assistance-helper provides verbal cues and/or touching/steadying and/or contact guard assistance as patient completes activity. Assistance may be provided throughout the activity or intermittently. 3-Partial/Moderate Assistance-helper does LESS THAN HALF the effort. [place] lifts, holds or supports trunk or limbs, but provides less than half the effort. 2-Substantial/Maximal Assistance-helper does MORE THAN HALF the effort. [place] lifts or holds trunk or limbs and provides more than half the effort. 8-Ubygrljac-pjnkcb does ALL the effort. Patient does none of the effort to complete the activity. Or, the assistance of 2 or more helpers is required for the patient to complete the activity. If activity was not attempted, code reason: 7-Patient Refused. 9-Not Applicable-not attempted and the patient did not perform the activity before the current illness, exacerbation or injury. 10-Not Attempted due to Environmental Limitations-(lack of equipment, weather restraints, etc.). 88-Not Attempted due to Medical Conditions or Safety Concerns. Roll Left & Right (QC): 4 Weight Bearing Full Weight Bearing Full Weight Bearing Exercises Supine Ex: Bridging, Ankle pumps, Quad Set, Rolling, Glut sets, Heel Slides, Straight leg raise, Hip abd/add Supine Reps: 15 Treatments Pt completes Supine EX in bed with several RB. SWITCHBOARD INSPECTOR assist pt in repositioning L sidelying with pillow at back. All needs met, call light in hand. Assessment Current Status: Fair Progress Pt fatigues easily and takes several RB. PT Short Term Goals Short Term Goals Time Frame: Dec 21, 2020 Roll Left & Right: 4 Sit to lyin Lying to sitting on side of be: 4 Sit to stand: 4 Chair/eqv-hm-cssox transfer: 4 Toilet transfer: 4 Car transfer: 3 Walk 10 feet: 4 Walk 50 feet with two turns: 4 Walk 150 feet: 4 Walking 10ft on uneven surface: 4 1 step (curb): 4 Does pt use a wc or scooter: Yes Wheel 50ft w/2 turns: 4 Wheel 150 feet: 4 Type: Manual PT Concert Manager Goals Concert Manager Goals PT Retirement Goals Time Frame: Jan 04, 2021 Roll Left & Right (QC): 6 Sit to Lying (QC): 6 Lying-Sitting on Side/Bed(QC): 6 Sit to Stand (QC): 6 Chair/Ljs-gn-Rjhgg Xfer(QC): 6 Toilet Transfer (QC): 6 Car Transfer (QC): 5 Does the Patient Walk: Yes Walk 10 feet (QC): 6 Walk 50ft with 2 Turns (QC): 6 Walk 150 ft (QC): 5 Walking 10ft on Uneven Surface: 6 1 Step (curb) (QC): 5 4 Steps (QC): 5 12 Steps (QC): 4 Picking up an Object (QC): 4 Does the Pt use WC or Scooter?: Yes Wheel 50 feet with 2 turns (QC: 6 Type: Manual Wheel 150 feet: 6 Type: Manual PT Plan Problem List Problem List: Activity Tolerance, Functional Strength Treatment/Plan Treatment Plan: Continue Plan of Care Treatment Plan: Bed Mobility, Concurrent Therapy, Functional Activity [place], Functional Strength, Group Therapy, Gait, Safety, Therapeutic Exercise, Transfers Treatment Duration: Jan 04, 2021 Frequency: At least 5 of 7 days/Wk (IRF) Estimated Hrs Per Day: 1.5 hours per day Patient and/or Family Agrees t: Yes Safety Risks/Education Patient Education: Transfer Techniques, Correct Positioning, Safety Issues Teaching Recipient: Patient Teaching Methods: Discussion Response to Teaching: Verbalize Understanding Time/GCodes Time In: 1345 Time Out: 1415 Total Billed Treatment Time: 30 Total Billed Treatment 1, EX (20m) & FA (10m) PHILIPP CHAMBERS PTA Dec 11, 2020 15:05
[2020-12-11 18:32] VITALS: BP 127/59
[2020-12-11] MEDS: PANTOPRAZOLE 40 MG (PROTONIX) TAB PO SCH (21:46)
[2020-12-11] MEDS: ENOXAPARIN 40 MG/0.4 ML (LOVENOX) SYR SC SCH (21:46)
[2020-12-11] MEDS: MELATONIN 3 MG TABLET PO PRN (21:46)
[2020-12-12] MEDS: SUCRALFATE 1 GM (CARAFATE) TAB PO SCH ×4 (05:47→21:26)
[2020-12-12 06:01] VITALS: BP 119/58
[2020-12-12] MEDS: RT-ALBUTEROL/IPRATROPIUM 3 ML (DUONEB) VIAL INH SCH ×2 (06:58→11:02)
[2020-12-12] MEDS: ANORO ELLIPTA INH SCH (06:59)
--- NOTE | 2020-12-12 07:12 | PM&R Progress Note ---
Subjective HPI/CC On Admission Date Seen by Provider: Dec 12, 2020 Time Seen by Provider: 10:00 Subjective/Events-last exam 12/12/20: Patient doing well Ambulated in front of me with assistance No pain reported No new issues Fluid restriction noted 12/11/20: Patient doing well Sodium level 129 No pain reported Fluid restriction maintained Ileostomy bag no leak Wound vac still in place 12/10/20: Participation with therapy good just slow Parallel bars but could not stand Fluid restriction maintained 12/09/20: Patient feels good Hgb 9.0 Sodium 127 2 person assist still Output 600 in ileostomy Lovenox maintained 12/08/20: Patient feels good and feels stronger Hgb 8.9 Sodium level 127 Ileostomy functioning well but bag keep leaking Gluteus cleft stage 2 decubitus ulcer Review of Systems General: Fatigue, Malaise Neurological: Weakness, Incoordination Objective Exam Vital Signs Vital Signs Date Time Temp Pulse Resp B/P (MAP) Pulse Ox O2 Delivery O2 Flow Rate FiO2 12/13/20 06:18 36.6 88 20 130/59 (82) 91 Room Air 12/12/20 09:00 1.00 Capillary Refill : General Appearance: No Apparent Distress, WD/WN, Chronically ill HEENT: PERRL/EOMI, Normal ENT Inspection, Pharynx Normal, Other ([place] severe) Neck: Normal Inspection, Supple Respiratory: Normal Breath Sounds, No Accessory Muscle Use, No Respiratory Distress Cardiovascular: Regular Rate, Rhythm, No Edema Gastrointestinal: Normal Bowel Sounds, No Organomegaly, No Pulsatile Mass, Non Tender, Soft, Other (ileostomy) Back: Normal Inspection, No CVA Tenderness, No Vertebral Tenderness Extremity: Normal Inspection, Normal Range of Motion Neurologic/Psychiatric: Alert, Oriented x3, No Motor/Sensory Deficits, Normal Mood/Affect, needlemaker II-XII Norm as Tested, Motor Weakness (3/5 all extremities) Skin: Normal Color, Warm/Dry, Other (Mild like abdominal incision C/D/I with wound vac in place. No surrounding redness. Left upper LANE drain with minimal Clear ss to serous drainage.) Lymphatic: No Adenopathy Results/Procedures Lab Patient resulted labs reviewed. FIM Transfers Therapy Code Descriptions/Definitions Functional [place] Measure: 0=Not Assessed/NA 4=Minimal Assistance 1=Total Assistance 5=Supervision or Setup 2=Maximal Assistance 6=Modified [place] 3=Moderate Assistance 7=Complete IndependenceSCALE: Activities may be completed with or without assistive devices. 4-Eutefzhqzu-weakdnf completes the activity by him/herself with no assistance from a helper. 5-Set-up or Clean-up Assistance-helper sets up or cleans up; patient completes activity. [place] assists only prior to or following the activity. 4-Supervision or Touching Assistance-helper provides verbal cues and/or touching/steadying and/or contact guard assistance as patient completes activity. Assistance may be provided throughout the activity or intermittently. 3-Partial/Moderate Assistance-helper does LESS THAN HALF the effort. [place] lifts, holds or supports trunk or limbs, but provides less than half the effort. 2-Substantial/Maximal Assistance-helper does MORE THAN HALF the effort. [place] lifts or holds trunk or limbs and provides more than half the effort. 5-Kwzyvbnjx-nsptwi does ALL the effort. Patient does none of the effort to complete the activity. Or, the assistance of 2 or more helpers is required for the patient to complete the activity. If activity was not attempted, code reason: 7-Patient Refused. 9-Not Applicable-not attempted and the patient did not perform the activity before the current illness, exacerbation or injury. 10-Not Attempted due to Environmental Limitations-(lack of equipment, weather restraints, etc.). 88-Not Attempted due to Medical Conditions or Safety Concerns. Roll Left to Right (QC): 4 Sit to Lying (QC): 3 Sit to Stand (QC): 3 Chair/Gbs-vg-Ahahp Xfer(QC): 3 Car Transfer (QC): 88 Gait Training Does the Patient Walk?: No and Walking Goal IS indicated Walk 10 feet (QC): 88 Walk 50 ft with 2 Turns(QC): 88 Walk 150 ft (QC): 88 Walking 10ft/uneven surface-QC: 88 Gait Assistive Device: FWW Wheelchair Training Does the Pt Use a Wheelchair?: Yes Wheel 50 ft with 2 turns (QC): 4 Wheel 150 ft (QC): 4 Type of Wheelchair: Manual Stair Training #of Steps: 0 1 Step (curb) (QC): 88 4 Steps (QC): 88 12 Steps (QC): 88 Balance Picking up an Object (QC): 88 ADL-Treatment Eating (QC): 5 Oral Hygiene (QC): 7 Shower/Bathe Self (QC): 3 (Mod assist overall. Pt. completes sponge bath on side of bed. Pt. requires assistance to wash rear red area and bilateral feet. Pt. able to wash bilateral legs, and all other parts.) Upper Body Dressing (QC): 4 Lower Body Dressing (QC): 3 (Pt. agrees to don street clothing this date. Pt. 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 Plan: IRF protocol Monitor pain O2 Nebs IS Lovenox 12/08/20: Xanax ordered Ileostomy functioning well but bag leaking Decubitus ulcer management 12/09/20: Monitor fluid restriction Salt tablets Monitor pain Ileostomy function monitoring 12/10/20: Salt tablets Fluid restriction Monitor closely Intensive therapy 12/11/20: Continue fluid restriction Salt tablets Monitor pain 12/12/20: Ambulating well today Fantastic progress (1) Myopathy (2) Ileus following gastrointestinal surgery (3) S/P right hemicolectomy (4) Presbycusis of both ears (5) Ileostomy in place (6) Anemia due to acute blood loss (7) Colon cancer (8) Hyponatremia (9) COPD (chronic obstructive pulmonary disease) (10) DVT prophylaxis WILFREDO MARTÍNEZ DO Dec 12, 2020 07:12
[2020-12-12] MEDS: PANTOPRAZOLE 40 MG (PROTONIX) TAB PO SCH ×2 (08:07→21:26)
[2020-12-12] MEDS: amLODIPine 10 MG (NORVASC) TAB PO SCH (08:07)
[2020-12-12] MEDS: NICOTINE 14 MG (NICODERM) PATCH TD SCH (08:07)
[2020-12-12] MEDS: METOCLOPRAMIDE INJ 10 MG/2 ML (REGLAN) IVP SCH ×2 (08:07→21:26)
[2020-12-12] MEDS: polyethylene glycoL POWDER 17 GM (MIRALAX) PACK PO SCH ×2 (08:09→21:19)
[2020-12-12] MEDS: DOCUSATE SODIUM 100 MG (COLACE) CAP PO SCH ×2 (08:09→21:19)
[2020-12-12] MEDS: lisINopril 20 MG (PRINIVIL) TABLET PO SCH (08:09)
[2020-12-12] MEDS: SENNA W/DOCUSATE (SENOKOT S) TABLET PO SCH ×2 (08:09→21:55)
[2020-12-12] MEDS: NICOTINE PATCH REMOVAL TP SCH (08:09)
[2020-12-12] MEDS: SODIUM CHLORIDE 1 GM TABLET PO SCH ×2 (08:09→21:28)
[2020-12-12] MEDS: meTOprolol TARTRATE 25 MG (LOPRESSOR) TABLET PO SCH ×2 (08:09→21:26)
--- NOTE | 2020-12-12 10:22 | Progress Note ---
Subjective Date Seen by a Provider: Dec 12, 2020 Time Seen by a Provider: 10:00 Subjective/Events-last exam Patient seen with Dr. Lynch. Patient reports doing well. Denies any N/V or abdominal pain. Tolerating diet and working with PT/OT. Objective Exam Vital Signs Date Time Temp Pulse Resp B/P (MAP) Pulse Ox O2 Delivery O2 Flow Rate FiO2 12/12/20 09:00 Nasal Cannula 1.00 12/12/20 06:58 93 Nasal Cannula 1.00 12/12/20 06:01 36.8 87 20 119/58 (78) 94 Nasal Cannula 1.00 12/11/20 20:20 Nasal Cannula 1.00 12/11/20 18:49 95 Nasal Cannula 1.00 12/11/20 18:32 36.2 91 20 127/59 (81) 96 Nasal Cannula 1.00 12/11/20 15:26 94 Nasal Cannula 1.00 12/11/20 10:59 93 Nasal Cannula 1.00 12/11/20 10:31 89 127/65 (85) I & O 12/12/20 07:00 Intake Total 1200 ml Output Total 2710 ml Balance -1510 ml Capillary Refill : General Appearance: No Apparent Distress, WD/WN Respiratory: No Accessory Muscle Use, No Respiratory Distress Cardiovascular: Regular Rate, Rhythm, No Edema Gastrointestinal: non tender, soft, other (Right ileostomy pink and moist, functioning. Left ostomy pink and moist, functioning.) Extremity: Normal Inspection, Normal Range of Motion Neurologic/Psychiatric: Alert, Oriented x3 Skin: Normal Color, Warm/Dry, Other (Midline abdominal wound vac in place.) Assessment/Plan Assessment/Plan Assess & Plan/Chief Complaint transverse colonic ca s/p extended RHC, end ileostomy and mucous fistula, fascial dehiscence and fascial closure with biologic mesh. continue wound vac for secondary closure. cont rehab REE KING APRN Dec 12, 2020 10:21
--- NOTE | 2020-12-12 11:10 | Physical Therapy Daily Note ---
PT Daily Note-Current Subjective Patient in WC in therapy gym pre tx, agrees to PT, has no complaints of pain, will be co-treating with OT due to poor mobility, strength, endurance, coordinate UE and LE during activity, safety and reduce risk of falls. Appearance Patient in bed post tx with nurse call, phone, tray, all needs met. Mental Status Patient Orientation: Person, Place, Situation Attachments: Colostomy/Ileostomy, Lam Catheter wound vac Transfers SCALE: Activities may be completed with or without assistive devices. 2-Gwkhoefgii-xbfkbck completes the activity by him/herself with no assistance from a helper. 5-Set-up or Clean-up Assistance-helper sets up or cleans up; patient completes activity. [place] assists only prior to or following the activity. 4-Supervision or Touching Assistance-helper provides verbal cues and/or touching/steadying and/or contact guard assistance as patient completes activity. Assistance may be provided throughout the activity or intermittently. 3-Partial/Moderate Assistance-helper does LESS THAN HALF the effort. [place] lifts, holds or supports trunk or limbs, but provides less than half the effort. 2-Substantial/Maximal Assistance-helper does MORE THAN HALF the effort. [place] lifts or holds trunk or limbs and provides more than half the effort. 3-Jxwlvwxdj-smyrha does ALL the effort. Patient does none of the effort to comp lete the activity. Or, the assistance of 2 or more helpers is required for the patient to complete the activity. If activity was not attempted, code reason: 7-Patient Refused. 9-Not Applicable-not attempted and the patient did not perform the activity before the current illness, exacerbation or injury. 10-Not Attempted due to Environmental Limitations-(lack of equipment, weather restraints, etc.). 88-Not Attempted due to Medical Conditions or Safety Concerns. Sit to Stand (QC): 3 Chair/Uvj-re-Thqnc Xfer(QC): 3 Weight Bearing Full Weight Bearing Full Weight Bearing Gait Training Distance: 5' Gait Assistive Device: FWW 4 Wheelchair Training Does the Pt Use a Wheelchair?: Yes Type of Wheelchair: Manual 20', stopped due to fatigue Exercises Supine Ex: Ankle pumps, Heel Slides Supine Reps: 20 Treatments PT performed mobility, transfers, ambulation, LE exercise, OT worked on UE po sitioning and safety during activity Assessment Current Status: Fair Progress Min assist for sit to stand and sit to supine PT Short Term Goals Short Term Goals Time Frame: Dec 21, 2020 Roll Left & Right: 4 Sit to lyin Lying to sitting on side of be: 4 Sit to stand: 4 Chair/myk-mf-oqywt transfer: 4 Toilet transfer: 4 Car transfer: 3 Walk 10 feet: 4 Walk 50 feet with two turns: 4 Walk 150 feet: 4 Walking 10ft on uneven surface: 4 1 step (curb): 4 Does pt use a wc or scooter: Yes Wheel 50ft w/2 turns: 4 Wheel 150 feet: 4 Type: Manual PT Retirement Goals Retirement Goals PT Retirement Goals Time Frame: Jan 04, 2021 Roll Left & Right (QC): 6 Sit to Lying (QC): 6 Lying-Sitting on Side/Bed(QC): 6 Sit to Stand (QC): 6 Chair/Hdu-ju-Xegfk Xfer(QC): 6 Toilet Transfer (QC): 6 Car Transfer (QC): 5 Does the Patient Walk: Yes Walk 10 feet (QC): 6 Walk 50ft with 2 Turns (QC): 6 Walk 150 ft (QC): 5 Walking 10ft on Uneven Surface: 6 1 Step (curb) (QC): 5 4 Steps (QC): 5 12 Steps (QC): 4 Picking up an Object (QC): 4 Does the Pt use WC or Scooter?: Yes Wheel 50 feet with 2 turns (QC: 6 Type: Manual Wheel 150 feet: 6 Type: Manual PT Plan Problem List Problem List: Activity Tolerance, Functional Strength, Safety, Balance, Gait, Transfer, Bed Mobility, ROM Treatment/Plan Treatment Plan: Continue Plan of Care Treatment Plan: Bed Mobility, Concurrent Therapy, Functional Activity [place], Functional Strength, Group Therapy, Gait, Safety, Therapeutic Exercise, Transfers Treatment Duration: Jan 04, 2021 Frequency: At least 5 of 7 days/Wk (IRF) Estimated Hrs Per Day: 1.5 hours per day Patient and/or Family Agrees t: Yes Safety Risks/Education Patient Education: Gait Training, Transfer Techniques, Correct Positioning, W/C Management, Safety Issues Teaching Recipient: Patient Teaching Methods: Demonstration, Discussion Response to Teaching: Reinforcement Needed Time/GCodes Time In: 1050 Time Out: 1105 Total Billed Treatment Time: 15 Total Billed Treatment 1 visit FA 15' KRTEK,RAMOS PT Dec 12, 2020 11:10
--- NOTE | 2020-12-12 11:50 | Occupational Ther Daily Note ---
OT Current Status-Daily Note Subjective No pain reported. Mental Status/Objective Patient Orientation: Person, Place Attachments: Colostomy/Ileostomy, Drains, Lam Catheter, IV, Oxygen ADL-Treatment Therapy Code Descriptions/Definitions Functional [place] Measure: 0=Not Assessed/NA 4=Minimal Assistance 1=Total Assistance 5=Supervision or Setup 2=Maximal Assistance 6=Modified [place] 3=Moderate Assistance 7=Complete IndependenceSCALE: Activities may be completed with or without assistive devices. 4-Fyzhndqdkh-dabnuxy completes the activity by him/herself with no assistance from a helper. 5-Set-up or Clean-up Assistance-helper sets up or cleans up; patient completes activity. [place] assists only prior to or following the activity. 4-Supervision or Touching Assistance-helper provides verbal cues and/or touching/steadying and/or contact guard assistance as patient completes activity. Assistance may be provided throughout the activity or intermittently. 3-Partial/Moderate Assistance-helper does LESS THAN HALF the effort. [place] lifts, holds or supports trunk or limbs, but provides less than half the effort. 2-Substantial/Maximal Assistance-helper does MORE THAN HALF the effort. [place] lifts or holds trunk or limbs and provides more than half the effort. 6-Uunipngcg-rghgtj does ALL the effort. Patient does none of the effort to complete the activity. Or, the assistance of 2 or more helpers is required for the patient to complete the activity. If activity was not attempted, code reason: 7-Patient Refused. 9-Not Applicable-not attempted and the patient did not perform the activity before the current illness, exacerbation or injury. 10-Not Attempted due to Environmental Limitations-(lack of equipment, weather restraints, etc.). 88-Not Attempted due to Medical Conditions or Safety Concerns. Other Treatment Pt. seen this a.m., with several partial co-treatments with PT due to low endurance and fatigue. PT facilitated leg placement on floor and sit-stand method while OT facilitated proper techniques during transfer, such as scooting to edge of chair and positioning hands. Pt. stood and ambulated 3 times total. Approximately 10 feet each time. Requires Min/mod x 2 for sit-stand, depending on fatigue level. When OT and pt. worked together, pt. participated in endurance task with sitting upright during fine motor activity. Pt. completed nut/bolt activity, but required frequent rest breaks throughout. All needs met back in bed at end of session. Education OT Patient Education: Correct positioning, Exercise program, Modified ADL techniques, Progress toward Goal/Update tx plan, Purpose of tx/functional activities, Reviewed precautions, Rehab process, Transfer techniques Teaching Recipient: Patient Teaching Methods: Demonstration, Discussion Response to Teaching: Verbalize Understanding, Return Demonstration OT Short Term Goals Short Term Goals Time Frame: Dec 23, 2020 Eatin Oral hygiene: 4 Toileting hygiene: 3 Shower/bathe self: 3 Upper body dressin Lower body dressin Putting on/taking off footwear: 3 OT Construction Ironworker Helper Goals Construction Ironworker Helper Goals Time Frame: Jan 06, 2021 Eating (QC): 6 Oral Hygiene (QC): 6 Toileting Hygiene (QC): 4 Shower/Bathe Self (QC): 4 Upper Body Dressing (QC): 5 Lower Body Dressing (QC): 4 On/Off Footwear (QC): 4 Additional Goals: 1-Demonstrate ADL Tasks, 2-Verbalize Understanding, 3- ImproveStrength/[place] 1=Demonstrate adherence to instructed precautions during ADL tasks. 2=Patient will verbalize/demonstrate understanding of assistive devices/modifications for ADL. 3=Patient will improve strength/tolerance for activity to enable patient to perform ADL's. OT Education/Plan Problem List/Assessment Assessment: Decreased Activ Tolerance, Dependent Transfers, Impaired I ADL's, Impaired Self-Care Skills Discharge Recommendations Plan/Recommendations: Continue POC Therapy Discharge Recommendati: Post Acute OT Treatment Plan/Plan of Care Treatment,Training & Education: Yes Patient would benefit from OT for education, treatment and training to promote independence in ADL's, mobility, safety and/or upper extremity function for ADL's. Plan of Care: ADL Retraining, Concurrent Therapy, Functional Mobility, W/C Management Training Treatment Duration: Dec 09, 2020 Frequency: At least 5 of 7 days/Wk (IRF) Estimated Hrs Per Day: 1.5 hours per day Agreement: Yes Rehab Potential: Fair Time/GCodes Start Time: 09:50 Stop Time: 11:05 Total Time Billed (hr/min): 75 Billed Treatment Time 6963-0443 1, FA x 30minutes Co-treatment with PT [id number] FA x 30minutes OT only [id number] FA x 15minutes Co-treatment with PT Please see above note for designated roles. KOKI STOKES OT Dec 12, 2020 11:50
--- NOTE | 2020-12-12 12:04 | Physical Therapy Daily Note ---
PT Daily Note-Current Subjective Pt laying Supine in bed upon arrival. Pt agrees to PT. Pain Location: No Pain Reported Mental Status Patient Orientation: Person, Place Attachments: Colostomy/Ileostomy, Drains, Lam Catheter Transfers SCALE: Activities may be completed with or without assistive devices. 5-Szqnebbabm-yytqxxp completes the activity by him/herself with no assistance from a helper. 5-Set-up or Clean-up Assistance-helper sets up or cleans up; patient completes activity. [place] assists only prior to or following the activity. 4-Supervision or Touching Assistance-helper provides verbal cues and/or touching/steadying and/or contact guard assistance as patient completes activity. Assistance may be provided throughout the activity or intermittently. 3-Partial/Moderate Assistance-helper does LESS THAN HALF the effort. [place] lifts, holds or supports trunk or limbs, but provides less than half the effort. 2-Substantial/Maximal Assistance-helper does MORE THAN HALF the effort. [place] lifts or holds trunk or limbs and provides more than half the effort. 1-Gzmfzcjwu-wcljsb does ALL the effort. Patient does none of the effort to complete the activity. Or, the assistance of 2 or more helpers is required for the patient to complete the activity. If activity was not attempted, code reason: 7-Patient Refused. 9-Not Applicable-not attempted and the patient did not perform the activity before the current illness, exacerbation or injury. 10-Not Attempted due to Environmental Limitations-(lack of equipment, weather restraints, etc.). 88-Not Attempted due to Medical Conditions or Safety Concerns. Weight Bearing Full Weight Bearing Full Weight Bearing Gait Training Does the Patient Walk?: Yes Distance: 10' Walk 10 feet (QC): 3 Gait Persons Needed: 2 Gait Assistive Device: FWW Wheelchair Training Does the Pt Use a Wheelchair?: Yes Type of Wheelchair: Manual Exercises Supine Ex: Ankle pumps, Quad Set, Glut sets, Heel Slides, Short Arc Quads, Straight leg raise, Hip abd/add Supine Reps: 15 Seated Therapy Exercises: Sit to stand Treatments Pt completes Supine EX with several RB then TF to EOB for dressing before OT arrives. Pt. seen this a.m., with several partial co-treatments with OT due to low endurance and fatigue. PT facilitated leg placement on floor and sit-stand method while OT facilitated proper techniques during transfer, such as scooting to edge of chair and positioning hands. Pt. stood and ambulated 3 times total. Approximately 10 feet each time. Requires Min/mod x 2 for sit-stand, depending on fatigue level. PT departs and OT continues tx. Assessment Current Status: Good Progress Pt fatigues easily and needs frequent RB but was able to walk today with [facility] following and OT & PT to assist. PT Short Term Goals Short Term Goals Time Frame: Dec 21, 2020 Roll Left & Right: 4 Sit to lyin Lying to sitting on side of be: 4 Sit to stand: 4 Chair/tna-ri-xqkax transfer: 4 Toilet transfer: 4 Car transfer: 3 Walk 10 feet: 4 Walk 50 feet with two turns: 4 Walk 150 feet: 4 Walking 10ft on uneven surface: 4 1 step (curb): 4 Does pt use a wc or scooter: Yes Wheel 50ft w/2 turns: 4 Wheel 150 feet: 4 Type: Manual PT Fdc Goals Practice Representative Goals PT Practice Representative Goals Time Frame: Jan 04, 2021 Roll Left & Right (QC): 6 Sit to Lying (QC): 6 Lying-Sitting on Side/Bed(QC): 6 Sit to Stand (QC): 6 Chair/Yaz-gj-Bsegz Xfer(QC): 6 Toilet Transfer (QC): 6 Car Transfer (QC): 5 Does the Patient Walk: Yes Walk 10 feet (QC): 6 Walk 50ft with 2 Turns (QC): 6 Walk 150 ft (QC): 5 Walking 10ft on Uneven Surface: 6 1 Step (curb) (QC): 5 4 Steps (QC): 5 12 Steps (QC): 4 Picking up an Object (QC): 4 Does the Pt use WC or Scooter?: Yes Wheel 50 feet with 2 turns (QC: 6 Type: Manual Wheel 150 feet: 6 Type: Manual PT Plan Problem List Problem List: Activity Tolerance, Gait Treatment/Plan Treatment Plan: Continue Plan of Care Treatment Plan: Bed Mobility, Concurrent Therapy, Functional Activity [place], Functional Strength, Group Therapy, Gait, Safety, Therapeutic Exercise, Transfers Treatment Duration: Jan 04, 2021 Frequency: At least 5 of 7 days/Wk (IRF) Estimated Hrs Per Day: 1.5 hours per day Patient and/or Family Agrees t: Yes Safety Risks/Education Patient Education: Gait Training, Transfer Techniques, Correct Positioning, Safety Issues Teaching Recipient: Patient Teaching Methods: Discussion Response to Teaching: Verbalize Understanding Time/GCodes Time In: 915 Time Out: 1020 Total Billed Treatment Time: 65 Total Billed Treatment 1, EX x2 (25m), FA (20m) & GT (20m) Co-treat w/OT for 30m ([id number]) PHILIPP [employer]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
[2020-12-12] MEDS ORDERED: PATIENT MAY USE OWN MED,SINGLE MED PO SCH (15:15)
[2020-12-12 17:20] VITALS: BP_SYST 128; BP_SYST 137; BP_DIAS 62; BP_DIAS 88
[2020-12-12] MEDS: ENOXAPARIN 40 MG/0.4 ML (LOVENOX) SYR SC SCH (21:26)
[2020-12-12] MEDS: MELATONIN 3 MG TABLET PO PRN (21:26)
[2020-12-13 06:18] VITALS: BP 130/59
[2020-12-13] MEDS: SUCRALFATE 1 GM (CARAFATE) TAB PO SCH ×4 (06:30→20:27)
[2020-12-13] MEDS: ANORO ELLIPTA INH SCH (07:59)
[2020-12-13] MEDS ORDERED: NON-FORMULARY MEDICATION 1 EA EA (Fluticasone/Umeclidin/Vilanter (Trelegy Ellipta 100-62.5 IH SCH (09:00)
--- NOTE | 2020-12-13 09:20 | Occupational Ther Daily Note ---
OT Current Status-Daily Note Subjective Pt alert, lying in bed. Pt agrees to therapy. No c/o pain. Pt educated on benefits of therapy and the need to push through and work hard to get home and be stronger. Mental Status/Objective Patient Orientation: Person, Place, Time, Situation ADL-Treatment Co-treat with PT ([id number]), skills of 2 clinicians required due to low endurance and fatigue. PT focused on w/c mobility, ambulation and B LE strengthening while OT focused on ADLs and proper techniques during transfer. Pt given bath pack to bath in bed, reached all areas except feet in in bed. With HOB elevated, pt able to go from sit to supine using bed rails independen tly. Pt required encouragement for sit to stand as much by self as possible. Verbal and physical cues needed for hand placement. Pt transferred using FWW from bed to [facility] with assist x1 then assist to manipulate clothing. Pt able to don dress after set up. Pt able to complete red care after urination in standing with CGA for safety. Pt then propelled w/c to [facility] by self. Therapy Code Descriptions/Definitions Functional [place] Measure: 0=Not Assessed/NA 4=Minimal Assistance 1=Total Assistance 5=Supervision or Setup 2=Maximal Assistance 6=Modified [place] 3=Moderate Assistance 7=Complete IndependenceSCALE: Activities may be completed with or without assistive devices. 2-Pvizuydugp-niqllwc completes the activity by him/herself with no assistance from a helper. 5-Set-up or Clean-up Assistance-helper sets up or cleans up; patient completes activity. [place] assists only prior to or following the activity. 4-Supervision or Touching Assistance-helper provides verbal cues and/or touching/steadying and/or contact guard assistance as patient completes activity. Assistance may be provided throughout the activity or intermittently. 3-Partial/Moderate Assistance-helper does LESS THAN HALF the effort. [place] lifts, holds or supports trunk or limbs, but provides less than half the effort. 2-Substantial/Maximal Assistance-helper does MORE THAN HALF the effort. [place] lifts or holds trunk or limbs and provides more than half the effort. 0-Rxivnjmvv-kkbeyn does ALL the effort. Patient does none of the effort to comp lete the activity. Or, the assistance of 2 or more helpers is required for the patient to complete the activity. If activity was not attempted, code reason: 7-Patient Refused. 9-Not Applicable-not attempted and the patient did not perform the activity before the current illness, exacerbation or injury. 10-Not Attempted due to Environmental Limitations-(lack of equipment, weather restraints, etc.). 88-Not Attempted due to Medical Conditions or Safety Concerns. Shower/Bathe Self (QC): 3 Upper Body Dressing (QC): 5 On/Off Footwear: 2 Toileting Hygiene (QC): 4 Toilet Transfer (QC): 4 Pt takes increased time to complete all tasks due to fatigue and multiple lengthy recovery breaks. Other Treatment Pt able to ambulated 10' using FWW and w/c behind for safety. Pt propelled w/c back to room then ambulated with FWW to recliner. Call light/phone in reach. All needs met in room. OT Short Term Goals Short Term Goals Time Frame: Dec 23, 2020 Eatin Oral hygiene: 4 Toileting hygiene: 3 Shower/bathe self: 3 Upper body dressin Lower body dressin Putting on/taking off footwear: 3 OT Instructional Technology Instructor Goals Custodial Goals Time Frame: Jan 06, 2021 Eating (QC): 6 Oral Hygiene (QC): 6 Toileting Hygiene (QC): 4 Shower/Bathe Self (QC): 4 Upper Body Dressing (QC): 5 Lower Body Dressing (QC): 4 On/Off Footwear (QC): 4 Additional Goals: 1-Demonstrate ADL Tasks, 2-Verbalize Understanding, 3- ImproveStrength/Palak 1=Demonstrate adherence to instructed precautions during ADL tasks. 2=Patient will verbalize/demonstrate understanding of assistive devices/modifications for ADL. 3=Patient will improve strength/tolerance for activity to enable patient to perform ADL's. OT Education/Plan Problem List/Assessment Assessment: Decreased Activ Tolerance, Decreased UE Strength, Impaired Self- Care Skills Discharge Recommendations Plan/Recommendations: Continue POC Treatment Plan/Plan of Care Patient would benefit from OT for education, treatment and training to promote independence in ADL's, mobility, safety and/or upper extremity function for ADL's. Plan of Care: ADL Retraining, Concurrent Therapy, Functional Mobility, W/C Management Training Treatment Duration: Dec 09, 2020 Frequency: At least 5 of 7 days/Wk (IRF) Estimated Hrs Per Day: 1.5 hours per day Agreement: Yes Rehab Potential: Fair Time/GCodes Start Time: 08:00 Stop Time: 09:15 Total Time Billed (hr/min): 75 Billed Treatment Time 1 visit-ADL 2 (30 min) FA 3 (45 min) co-treat with PT [id number] RAIZA BROWNING Dec 13, 2020 09:20
--- NOTE | 2020-12-13 09:26 | Physical Therapy Daily Note ---
PT Daily Note-Current Subjective Pt. in bed upon arrival. States she is cold and wants the colostomy emptied. Agrees to Rx co Rx OT PT . Needs much encouragement and discussion of her goals to continue giving full effort with rest breaks Pain Location: No Pain Reported Mental Status Patient Orientation: Normal For Age Attachments: Drains, Other-See Comments (wound vacc) Transfers SCALE: Activities may be completed with or without assistive devices. 2-Ajprahohml-ujyaoxg completes the activity by him/herself with no assistance from a helper. 5-Set-up or Clean-up Assistance-helper sets up or cleans up; patient completes activity. [place] assists only prior to or following the activity. 4-Supervision or Touching Assistance-helper provides verbal cues and/or touching/steadying and/or contact guard assistance as patient completes activity. Assistance may be provided throughout the activity or intermittently. 3-Partial/Moderate Assistance-helper does LESS THAN HALF the effort. [place] lifts, holds or supports trunk or limbs, but provides less than half the effort. 2-Substantial/Maximal Assistance-helper does MORE THAN HALF the effort. [place] lifts or holds trunk or limbs and provides more than half the effort. 7-Ztghcggaw-awouvo does ALL the effort. Patient does none of the effort to complete the activity. Or, the assistance of 2 or more helpers is required for the patient to complete the activity. If activity was not attempted, code reason: 7-Patient Refused. 9-Not Applicable-not attempted and the patient did not perform the activity before the current illness, exacerbation or injury. 10-Not Attempted due to Environmental Limitations-(lack of equipment, weather restraints, etc.). 88-Not Attempted due to Medical Conditions or Safety Concerns. Roll Left & Right (QC): 6 Lying to Sitting/Side of Bed(Q: 6 (with HOB up) Sit to Stand (QC): 4 Chair/Dgy-rl-Shlhe Xfer(QC): 4 Toilet Transfer (QC): 4 much emphasis on sit to stand with wt shift forward using UEs for pushing efficiently etc Weight Bearing Full Weight Bearing Full Weight Bearing Gait Training Does the Patient Walk?: Yes Walk 10 feet (QC): 4 Gait Persons Needed: 1 Gait Assistive Device: FWW w/c to follow, gait with instruction for turns, needs rest breaks, walked 10-12 ft x 3 Wheelchair Training Does the Pt Use a Wheelchair?: Yes Wheel 50 ft with 2 turns (QC): 4 Type of Wheelchair: Manual needs instruction for braking efficiently as well as steering w/c Exercises Supine Ex: Ankle pumps, Quad Set, Glut sets, Heel Slides, Straight leg raise (assisted), Hip abd/add Supine Reps: 15 Seated Therapy Exercises: Ankle pumps, Sit to stand, Long arc quads, Hip flexion Seated Reps: 10 Treatments PT OT co Rx secondary to low level endurance and function. OT instructing in bathing and dressing technique and energy cons as well as toileting session, PT focusing on coordinating these activities with strengthening and balance, gait, w/c and TRFs Assessment Current Status: Good Progress PT Short Term Goals Short Term Goals Time Frame: Dec 21, 2020 Roll Left & Right: 4 Sit to lyin Lying to sitting on side of be: 4 Sit to stand: 4 Chair/vls-sb-udeqb transfer: 4 Toilet transfer: 4 Car transfer: 3 Walk 10 feet: 4 Walk 50 feet with two turns: 4 Walk 150 feet: 4 Walking 10ft on uneven surface: 4 1 step (curb): 4 Does pt use a wc or scooter: Yes Wheel 50ft w/2 turns: 4 Wheel 150 feet: 4 Type: Manual PT [facility] Goals Literacy Coach Goals PT [facility] Goals Time Frame: Jan 04, 2021 Roll Left & Right (QC): 6 Sit to Lying (QC): 6 Lying-Sitting on Side/Bed(QC): 6 Sit to Stand (QC): 6 Chair/Lwv-vm-Yygyf Xfer(QC): 6 Toilet Transfer (QC): 6 Car Transfer (QC): 5 Does the Patient Walk: Yes Walk 10 feet (QC): 6 Walk 50ft with 2 Turns (QC): 6 Walk 150 ft (QC): 5 Walking 10ft on Uneven Surface: 6 1 Step (curb) (QC): 5 4 Steps (QC): 5 12 Steps (QC): 4 Picking up an Object (QC): 4 Does the Pt use WC or Scooter?: Yes Wheel 50 feet with 2 turns (QC: 6 Type: Manual Wheel 150 feet: 6 Type: Manual PT Plan Treatment/Plan Treatment Plan: Continue Plan of Care Treatment Plan: Bed Mobility, Concurrent Therapy, Functional Activity [place], Functional Strength, Group Therapy, Gait, Safety, Therapeutic Exercise, Transfers Treatment Duration: Jan 04, 2021 Frequency: At least 5 of 7 days/Wk (IRF) Estimated Hrs Per Day: 1.5 hours per day Patient and/or Family Agrees t: Yes Safety Risks/Education Patient Education: Gait Training, Transfer Techniques, Correct Positioning, W/C Management, Disease Process, Safety Issues Teaching Recipient: Patient Teaching Methods: Demonstration, Discussion Response to Teaching: Verbalize Understanding, Return Demonstration, Reinforcement Needed Time/GCodes Time In: 800 Time Out: 915 Total Billed Treatment Time: 75 Total Billed Treatment 1,EX25m,GT20m,WC 15m,FA15m DUSTIN MARSH LAUNDRY ROUTEMAN Dec 13, 2020 09:26
[2020-12-13 09:40] VITALS: BP 136/64
[2020-12-13] MEDS: NICOTINE PATCH REMOVAL TP SCH (09:51)
[2020-12-13] MEDS: PANTOPRAZOLE 40 MG (PROTONIX) TAB PO SCH ×2 (09:52→20:27)
[2020-12-13] MEDS: meTOprolol TARTRATE 25 MG (LOPRESSOR) TABLET PO SCH ×2 (09:52→20:27)
[2020-12-13] MEDS: METOCLOPRAMIDE INJ 10 MG/2 ML (REGLAN) IVP SCH ×2 (09:52→20:26)
[2020-12-13] MEDS: amLODIPine 10 MG (NORVASC) TAB PO SCH (09:52)
[2020-12-13] MEDS: lisINopril 20 MG (PRINIVIL) TABLET PO SCH (09:52)
[2020-12-13] MEDS: NICOTINE 14 MG (NICODERM) PATCH TD SCH (09:53)
[2020-12-13] MEDS: SODIUM CHLORIDE 1 GM TABLET PO SCH ×2 (09:53→20:27)
[2020-12-13] MEDS: polyethylene glycoL POWDER 17 GM (MIRALAX) PACK PO SCH ×2 (09:54→20:26)
[2020-12-13] MEDS: SENNA W/DOCUSATE (SENOKOT S) TABLET PO SCH ×2 (09:54→20:27)
[2020-12-13] MEDS: DOCUSATE SODIUM 100 MG (COLACE) CAP PO SCH ×2 (09:54→20:27)
--- NOTE | 2020-12-13 10:49 | PM&R Progress Note ---
Subjective HPI/CC On Admission Date Seen by Provider: Dec 13, 2020 Time Seen by Provider: 11:00 Subjective/Events-last exam 12/13/20: Voiding is an issue Retention requiring in/out cath Dr Wright appreciated Checked meds and labs 12/12/20: Patient doing well Ambulated in front of me with assistance No pain reported No new issues Fluid restriction noted 12/11/20: Patient doing well Sodium level 129 No pain reported Fluid restriction maintained Ileostomy bag no leak Wound vac still in place 12/10/20: Participation with therapy good just slow Parallel bars but could not stand Fluid restriction maintained 12/09/20: Patient feels good Hgb 9.0 Sodium 127 2 person assist still Output 600 in ileostomy Lovenox maintained 12/08/20: Patient feels good and feels stronger Hgb 8.9 Sodium level 127 Ileostomy functioning well but bag keep leaking Gluteus cleft stage 2 decubitus ulcer Review of Systems General: Fatigue, Malaise Pulmonary: Dyspnea Objective Exam Vital Signs Vital Signs Date Time Temp Pulse Resp B/P (MAP) Pulse Ox O2 Delivery O2 Flow Rate FiO2 12/14/20 06:00 36.6 91 22 131/57 (81) 92 Simple Mask 92.00 12/13/20 21:00 91 Capillary Refill : General Appearance: No Apparent Distress, WD/WN, Chronically ill HEENT: PERRL/EOMI, Normal ENT Inspection, Pharynx Normal, Other ([place] severe) Neck: Normal Inspection, Supple Respiratory: Normal Breath Sounds, No Accessory Muscle Use, No Respiratory Distress Cardiovascular: Regular Rate, Rhythm, No Edema Gastrointestinal: Normal Bowel Sounds, No Organomegaly, No Pulsatile Mass, Non Tender, Soft, Other (ileostomy) Back: Normal Inspection, No CVA Tenderness, No Vertebral Tenderness Extremity: Normal Inspection, Normal Range of Motion Neurologic/Psychiatric: Alert, Oriented x3, No Motor/Sensory Deficits, Normal Mood/Affect, real estate coordinator II-XII Norm as Tested, Motor Weakness (3/5 all extremities) Skin: Normal Color, Warm/Dry, Other (Mild like abdominal incision C/D/I with wound vac in place. No surrounding redness. Left upper LANE drain with minimal Clear ss to serous drainage.) Lymphatic: No Adenopathy Results/Procedures Lab Patient resulted labs reviewed. [facility]IM Transfers Therapy Code Descriptions/Definitions Functional [place] Measure: 0=Not Assessed/NA 4=Minimal Assistance 1=Total Assistance 5=Supervision or Setup 2=Maximal Assistance 6=Modified [place] 3=Moderate Assistance 7=Complete IndependenceSCALE: Activities may be completed with or without assistive devices. 3-Nitcjkmmty-tggywjw completes the activity by him/herself with no assistance from a helper. 5-Set-up or Clean-up Assistance-helper sets up or cleans up; patient completes activity. [place] assists only prior to or following the activity. 4-Supervision or Touching Assistance-helper provides verbal cues and/or touching/steadying and/or contact guard assistance as patient completes activit y. Assistance may be provided throughout the activity or intermittently. 3-Partial/Moderate Assistance-helper does LESS THAN HALF the effort. [place] lifts, holds or supports trunk or limbs, but provides less than half the effort. 2-Substantial/Maximal Assistance-helper does MORE THAN HALF the effort. [place] lifts or holds trunk or limbs and provides more than half the effort. 1-Sprzlmzco-samtcv does ALL the effort. Patient does none of the effort to complete the activity. Or, the assistance of 2 or more helpers is required for the patient to complete the activity. If activity was not attempted, code reason: 7-Patient Refused. 9-Not Applicable-not attempted and the patient did not perform the activity before the current illness, exacerbation or injury. 10-Not Attempted due to Environmental Limitations-(lack of equipment, weather restraints, etc.). 88-Not Attempted due to Medical Conditions or Safety Concerns. Roll Left to Right (QC): 6 Sit to Lying (QC): 3 Sit to Stand (QC): 4 Chair/Zle-qf-Rpslb Xfer(QC): 4 Car Transfer (QC): 88 Gait Training Does the Patient Walk?: Yes Distance: 10' Walk 10 feet (QC): 4 Walk 50 ft with 2 Turns(QC): 88 Walk 150 ft (QC): 88 Walking 10ft/uneven surface-QC: 88 Gait Persons Needed: 1 Gait Assistive Device: FWW Wheelchair Training Does the Pt Use a Wheelchair?: Yes Wheel 50 ft with 2 turns (QC): 4 Wheel 150 ft (QC): 4 Type of Wheelchair: Manual Stair Training #of Steps: 0 1 Step (curb) (QC): 88 4 Steps (QC): 88 12 Steps (QC): 88 Balance Picking up an Object (QC): 88 ADL-Treatment Eating (QC): 5 Oral Hygiene (QC): 7 Shower/Bathe Self (QC): 3 Upper Body Dressing (QC): 5 Lower Body Dressing (QC): 3 (Pt. agrees to don street clothing this date. Pt. 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 Urinary retention 12/13/20 Plan: IRF protocol Monitor pain O2 Nebs IS Lovenox 12/08/20: Xanax ordered Ileostomy functioning well but bag leaking Decubitus ulcer management 12/09/20: Monitor fluid restriction Salt tablets Monitor pain Ileostomy function monitoring 12/10/20: Salt tablets Fluid restriction Monitor closely Intensive therapy 12/11/20: Continue fluid restriction Salt tablets Monitor pain 12/12/20: Ambulating well today Fantastic progress 12/13/20: Urinary retention Dr Wright Monitor closely (1) Myopathy (2) Ileus following gastrointestinal surgery (3) S/P right hemicolectomy (4) Presbycusis of both ears (5) Ileostomy in place (6) Anemia due to acute blood loss (7) Colon cancer (8) Hyponatremia (9) COPD (chronic obstructive pulmonary disease) (10) DVT prophylaxis WILFREDO MARTÍNEZ DO Dec 13, 2020 10:49
--- NOTE | 2020-12-13 11:49 | Progress Note ---
Subjective Date Seen by a Provider: Dec 13, 2020 Time Seen by a Provider: 10:00 Subjective/Events-last exam doing well. vac changed today. tolerating regular diet. improving with therapy. Objective Exam Vital Signs Date Time Temp Pulse Resp B/P (MAP) Pulse Ox O2 Delivery O2 Flow Rate FiO2 12/13/20 07:59 90 Room Air 12/13/20 06:18 36.6 88 20 130/59 (82) 91 Room Air 12/12/20 20:20 Room Air 12/12/20 20:00 91 Room Air 12/12/20 17:20 36.8 96 22 137/62 (87) 92 Room Air I & O 12/13/20 07:00 Intake Total 1260 ml Output Total 2810 ml Balance -1550 ml Capillary Refill : General Appearance: No Apparent Distress HEENT: PERRL/EOMI Neck: Full Range of Motion Respiratory: Chest Non Tender, Decreased Breath Sounds, Wheezing Cardiovascular: Regular Rate, Rhythm Gastrointestinal: normal bowel sounds, non tender, soft Extremity: Normal Capillary Refill Neurologic/Psychiatric: Alert, Oriented x3 Skin: Normal Color Lymphatic: No Adenopathy Assessment/Plan Assessment/Plan Assess & Plan/Chief Complaint transverse colonic ca s/p extended RHC, end ileostomy and mucous fistula, fascial dehiscence and fascial closure with biologic mesh. continue wound vac for secondary closure. cont rehab MICHAEL XIONG MD Dec 13, 2020 11:49
--- NOTE | 2020-12-13 13:33 | Speech Therapy Daily Note ---
Speech Daily Progress Note Subjective Date Seen by Provider: Dec 13, 2020 Time Seen by Provider: 00:30 Patient was being assisted to her bed from the bedside commode when I entered her room. She was proud to say she had walked quite a bit this morning. Objective Patient completed safety awareness tasks with fill in the blanks at 85% given min to mod cues. Assessment Assessment Current Status: Good Progress Treatment Plan Continue Plan of Care Speech Short Term Goals Short Term Goals Short Term Goals 1) Patient will complete memory tasks related to her daily needs with minimal cues at 80% or greater. 2) Patient will complete safety awareness tasks related to her daily needs with minimal cues at 80% or greater. 3) Patient will complete problem solving tasks related to her daily needs with minimal cues at 80% or greater. Speech Longterm Goals Longterm Goals Patient will improve cognitive-communication necessary for safety and daily living tasks with minimal assist. Speech-Plan Patient/Family Goals Patient/Family Goals: Patient plans on returning to her home where she lives with her sister. Treatment Plan Speech Therapy Treatment Plan: Continue Plan of Care Treatment Duration: Dec 20, 2020 Frequency: 4 times per week (Patient will receive skilled ST 4-5x per week) Estimated Hrs Per Day: .5 hour per day Rehab Potential: Fair Barriers to Learning: Patient's recent 2 month long illness and weakness, age Pt/Family Agrees to Plan: Yes Safety Risks/Education Teaching Recipient: Patient Teaching Methods: Demonstration, Discussion Response to Teaching: Verbalize Understanding, Return Demonstration Education Topics Provided: Continued safety within her room and communication of wants/needs Time Speech Therapy Time In: 10:30 Speech Therapy Time Out: 11:00 Total Billed Time: 30 Billed Treatment Time 1LOC [place] [facility] Dec 13, 2020 13:33
[2020-12-13 17:46] VITALS: BP 110/55
[2020-12-13] MEDS: TAMSULOSIN 0.4 MG (FLOMAX) CAP PO SCH (18:41)
[2020-12-13] MEDS: ENOXAPARIN 40 MG/0.4 ML (LOVENOX) SYR SC SCH (20:27)
[2020-12-13] MEDS: MELATONIN 3 MG TABLET PO PRN (20:28)
[2020-12-14] MEDS: SUCRALFATE 1 GM (CARAFATE) TAB PO SCH ×4 (05:56→21:51)
[2020-12-14 06:00] VITALS: BP 131/57
--- NOTE | 2020-12-14 09:50 | Physical Therapy Daily Note ---
PT Daily Note-Current Subjective Pt in bed upon arrival; pt c/o pain in bottom. Pt agrees to participate in therapy tx. Pain Location: Posterior Location Body Site: Sacrum Comment: Pt would not rate pain on pain scale for TRAINING GENERALIST Mental Status Patient Orientation: Person, Place Attachments: SCD's, Colostomy/Ileostomy, Drains, Other-See Comments (Wound Vac), IV Transfers SCALE: Activities may be completed with or without assistive devices. 4-Fxqzxrrvfj-anjbcgb completes the activity by him/herself with no assistance from a helper. 5-Set-up or Clean-up Assistance-helper sets up or cleans up; patient completes activity. [place] assists only prior to or following the activity. 4-Supervision or Touching Assistance-helper provides verbal cues and/or touching/steadying and/or contact guard assistance as patient completes activity. Assistance may be provided throughout the activity or intermittently. 3-Partial/Moderate Assistance-helper does LESS THAN HALF the effort. [place] lifts, holds or supports trunk or limbs, but provides less than half the effort. 2-Substantial/Maximal Assistance-helper does MORE THAN HALF the effort. [place] lifts or holds trunk or limbs and provides more than half the effort. 8-Djumazggm-pzwcuy does ALL the effort. Patient does none of the effort to complete the activity. Or, the assistance of 2 or more helpers is required for the patient to complete the activity. If activity was not attempted, code reason: 7-Patient Refused. 9-Not Applicable-not attempted and the patient did not perform the activity before the current illness, exacerbation or injury. 10-Not Attempted due to Environmental Limitations-(lack of equipment, weather restraints, etc.). 88-Not Attempted due to Medical Conditions or Safety Concerns. Roll Left & Right (QC): 4 Sit to Lying (QC): 4 Lying to Sitting/Side of Bed(Q: 4 Sit to Stand (QC): 4 Weight Bearing Full Weight Bearing Full Weight Bearing Gait Training Does the Patient Walk?: Yes Distance: 10' x3 Walk 10 feet (QC): 4 Gait Persons Needed: 2 Gait Assistive Device: FWW Pt ambulates w/ FWW at [facility] w/ 1 staff pushing w/c behind. Pt has extremely poor endurance and needs a rest break q 10'. During ambulation, TRAINING GENERALIST observed and felt pt pushing a significant amount of wt through BUE's; VC given to adjust this, pt does not comply Wheelchair Training Does the Pt Use a Wheelchair?: Yes Type of Wheelchair: Manual Pt refuses to propel self in w/c back to room after gait training Treatments Pt completes supine to sit w/ supervision. Pt sit<>stands from EOB using FWW w/ CGA; VC's for proper hand placement for push off. Pt ambulates 10' before needing to sit d/t SOB and fatigue. Pt sit<>stands from w/c using FWW w/ CGA; VC's for proper hand placement w/ push off/return to sit. After gait training, TRAINING GENERALIST suggest pt propel self back to room; pt refuses. Pt transfers w/c to EOB using FWW w/ CGA. Pt completes sitting to supine w/ supervision. Pt repositions self w/ Max VC's; pt self limits during rolling, attempts to have TRAINING GENERALIST complete for pt. TRAINING GENERALIST gives VC's and encouragement. Pt in bed w/ call light and bedside table w/in reach and all needs met at end of tx. Assessment Current Status: Poor Progress Pt has poor endurance, self limits at times and needs encouragement to complete items/tasks w/ Min to no assistance. PT Short Term Goals Short Term Goals Time Frame: Dec 21, 2020 Roll Left & Right: 4 Sit to lyin Lying to sitting on side of be: 4 Sit to stand: 4 Chair/nhk-po-kwjaf transfer: 4 Toilet transfer: 4 Car transfer: 3 Walk 10 feet: 4 Walk 50 feet with two turns: 4 Walk 150 feet: 4 Walking 10ft on uneven surface: 4 1 step (curb): 4 Does pt use a wc or scooter: Yes Wheel 50ft w/2 turns: 4 Wheel 150 feet: 4 Type: Manual PT Intermediate Goals Ccie Goals PT Intermediate Goals Time Frame: Jan 04, 2021 Roll Left & Right (QC): 6 Sit to Lying (QC): 6 Lying-Sitting on Side/Bed(QC): 6 Sit to Stand (QC): 6 Chair/Vlx-kh-Cdtep Xfer(QC): 6 Toilet Transfer (QC): 6 Car Transfer (QC): 5 Does the Patient Walk: Yes Walk 10 feet (QC): 6 Walk 50ft with 2 Turns (QC): 6 Walk 150 ft (QC): 5 Walking 10ft on Uneven Surface: 6 1 Step (curb) (QC): 5 4 Steps (QC): 5 12 Steps (QC): 4 Picking up an Object (QC): 4 Does the Pt use WC or Scooter?: Yes Wheel 50 feet with 2 turns (QC: 6 Type: Manual Wheel 150 feet: 6 Type: Manual PT Plan Problem List Problem List: Activity Tolerance, Functional Strength, Safety, Balance, Gait, Transfer, Bed Mobility, ROM Treatment/Plan Treatment Plan: Continue Plan of Care Treatment Plan: Bed Mobility, Concurrent Therapy, Functional Activity [place], Functional Strength, Group Therapy, Gait, Safety, Therapeutic Exercise, Transfers Treatment Duration: Jan 04, 2021 Frequency: At least 5 of 7 days/Wk (IRF) Estimated Hrs Per Day: 1.5 hours per day Patient and/or Family Agrees t: Yes Safety Risks/Education Patient Education: Gait Training, Transfer Techniques, Correct Positioning, Safety Issues Teaching Recipient: Patient Teaching Methods: Discussion Response to Teaching: Reinforcement Needed Time/GCodes Time In: 08 Time Out: 0846 Total Billed Treatment Time: 36 Total Billed Treatment 1, GT (20m), FA (16m) SUJIT LOVING TRAINING GENERALIST Dec 14, 2020 09:50
[2020-12-14] MEDS: PANTOPRAZOLE 40 MG (PROTONIX) TAB PO SCH ×2 (10:00→21:51)
[2020-12-14] MEDS: NICOTINE 14 MG (NICODERM) PATCH TD SCH (10:00)
[2020-12-14] MEDS: amLODIPine 10 MG (NORVASC) TAB PO SCH (10:00)
[2020-12-14] MEDS: lisINopril 20 MG (PRINIVIL) TABLET PO SCH (10:00)
[2020-12-14] MEDS: meTOprolol TARTRATE 25 MG (LOPRESSOR) TABLET PO SCH ×2 (10:01→21:51)
[2020-12-14] MEDS: METOCLOPRAMIDE INJ 10 MG/2 ML (REGLAN) IVP SCH ×2 (10:01→21:52)
[2020-12-14] MEDS: fentaNYL PATCH 25 MCG (DURAGESIC) TD SCH (10:01)
[2020-12-14] MEDS: SODIUM CHLORIDE 1 GM TABLET PO SCH ×2 (10:01→21:52)
[2020-12-14] MEDS: FENTANYL PATCH REMOVAL TP SCH (10:03)
[2020-12-14] MEDS: NICOTINE PATCH REMOVAL TP SCH (10:03)
[2020-12-14] MEDS: polyethylene glycoL POWDER 17 GM (MIRALAX) PACK PO SCH ×2 (10:03→21:45)
[2020-12-14] MEDS: DOCUSATE SODIUM 100 MG (COLACE) CAP PO SCH ×2 (10:03→21:45)
[2020-12-14] MEDS: SENNA W/DOCUSATE (SENOKOT S) TABLET PO SCH ×2 (10:04→21:45)
[2020-12-14] MEDS: TRELEGY ELLIPTA IH SCH (10:10)
--- NOTE | 2020-12-14 12:37 | PM&R Progress Note ---
Subjective HPI/CC On Admission Date Seen by Provider: Dec 14, 2020 Time Seen by Provider: 12:00 Subjective/Events-last exam 12/14/20: Flomax started Dr Wright ordered in/out caths prn Patient is doing better No falls Pain is controlled Wound vac in place 12/13/20: Voiding is an issue Retention requiring in/out cath Dr Wright appreciated Checked meds and labs 12/12/20: Patient doing well Ambulated in front of me with assistance No pain reported No new issues Fluid restriction noted 12/11/20: Patient doing well Sodium level 129 No pain reported Fluid restriction maintained Ileostomy bag no leak Wound vac still in place 12/10/20: Participation with therapy good just slow Parallel bars but could not stand Fluid restriction maintained 12/09/20: Patient feels good Hgb 9.0 Sodium 127 2 person assist still Output 600 in ileostomy Lovenox maintained 12/08/20: Patient feels good and feels stronger Hgb 8.9 Sodium level 127 Ileostomy functioning well but bag keep leaking Gluteus cleft stage 2 decubitus ulcer Review of Systems General: Fatigue, Malaise Pulmonary: Dyspnea Gastrointestinal: Abdominal Pain Genitourinary: Retention Objective Exam Vital Signs Vital Signs Date Time Temp Pulse Resp B/P (MAP) Pulse Ox O2 Delivery O2 Flow Rate FiO2 12/15/20 07:41 90 Room Air 12/15/20 05:57 36.4 87 18 117/57 (77) 12/14/20 18:04 92.00 12/14/20 09:00 9 Capillary Refill : General Appearance: No Apparent Distress, WD/WN, Chronically ill HEENT: PERRL/EOMI, Normal ENT Inspection, Pharynx Normal, Other ([place] severe) Neck: Normal Inspection, Supple Respiratory: Normal Breath Sounds, No Accessory Muscle Use, No Respiratory Distress Cardiovascular: Regular Rate, Rhythm, No Edema Gastrointestinal: Normal Bowel Sounds, No Organomegaly, No Pulsatile Mass, Non Tender, Soft, Other (ileostomy) Back: Normal Inspection, No CVA Tenderness, No Vertebral Tenderness Extremity: Normal Inspection, Normal Range of Motion Neurologic/Psychiatric: Alert, Oriented x3, No Motor/Sensory Deficits, Normal Mood/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 No surrounding redness. Left upper LANE drain with minimal Clear ss to serous drainage.) Lymphatic: No Adenopathy Results/Procedures Lab Patient resulted labs reviewed. FIM Transfers Therapy Code Descriptions/Definitions Functional [place] Measure: 0=Not Assessed/NA 4=Minimal Assistance 1=Total Assistance 5=Supervision or Setup 2=Maximal Assistance 6=Modified [place] 3=Moderate Assistance 7=Complete IndependenceSCALE: Activities may be completed with or without assistive devices. 9-Ovinnrlhoo-xutyaah completes the activity by him/herself with no assistance from a helper. 5-Set-up or Clean-up Assistance-helper sets up or cleans up; patient completes activity. [place] assists only prior to or following the activity. 4-Supervision or Touching Assistance-helper provides verbal cues and/or touching/steadying and/or contact guard assistance as patient completes activity. Assistance may be provided throughout the activity or intermittently. 3-Partial/Moderate Assistance-helper does LESS THAN HALF the effort. [place] lifts, holds or supports trunk or limbs, but provides less than half the effort. 2-Substantial/Maximal Assistance-helper does MORE THAN HALF the effort. [place] lifts or holds trunk or limbs and provides more than half the effort. 0-Reluytpxu-oxxtdw does ALL the effort. Patient does none of the effort to complete the activity. Or, the assistance of 2 or more helpers is required for the patient to complete the activity. If activity was not attempted, code reason: 7-Patient Refused. 9-Not Applicable-not attempted and the patient did not perform the activity before the current illness, exacerbation or injury. 10-Not Attempted due to Environmental Limitations-(lack of equipment, weather restraints, etc.). 88-Not Attempted due to Medical Conditions or Safety Concerns. Roll Left to Right (QC): 4 Sit to Lying (QC): 4 Sit to Stand (QC): 4 Chair/Dba-bs-Wyozz Xfer(QC): 4 Car Transfer (QC): 88 Gait Training Does the Patient Walk?: Yes Distance: 10' x3 Walk 10 feet (QC): 4 Walk 50 ft with 2 Turns(QC): 88 Walk 150 ft (QC): 88 Walking 10ft/uneven surface-QC: 88 Gait Persons Needed: 2 Gait Assistive Device: FWW Wheelchair Training Does the Pt Use a Wheelchair?: Yes Wheel 50 ft with 2 turns (QC): 4 Wheel 150 ft (QC): 4 Type of Wheelchair: Manual Stair Training #of Steps: 0 1 Step (curb) (QC): 88 4 Steps (QC): 88 12 Steps (QC): 88 Balance Picking up an Object (QC): 88 ADL-Treatment Eating (QC): 5 Oral Hygiene (QC): 7 Shower/Bathe Self (QC): 3 Upper Body Dressing (QC): 5 Lower Body Dressing (QC): 3 (Pt. agrees to don street clothing this date. Pt. 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 Urinary retention 12/13/20 Plan: IRF protocol Monitor pain O2 Nebs IS Lovenox 12/08/20: Xanax ordered Ileostomy functioning well but bag leaking Decubitus ulcer management 12/09/20: Monitor fluid restriction Salt tablets Monitor pain Ileostomy function monitoring 12/10/20: Salt tablets Fluid restriction Monitor closely Intensive therapy 12/11/20: Continue fluid restriction Salt tablets Monitor pain 12/12/20: Ambulating well today Fantastic progress 12/13/20: Urinary retention Dr Wright Monitor closely 12/14/20: Flomax started Dr Wright appreciated Pain control (1) Myopathy (2) Ileus following gastrointestinal surgery (3) S/P right hemicolectomy (4) Presbycusis of both ears (5) Ileostomy in place (6) Anemia due to acute blood loss (7) Colon cancer (8) Hyponatremia (9) COPD (chronic obstructive pulmonary disease) (10) DVT prophylaxis WILFREDO MARTÍNEZ DO Dec 14, 2020 12:37
[2020-12-14] MEDS: TAMSULOSIN 0.4 MG (FLOMAX) CAP PO SCH (17:54)
[2020-12-14 18:04] VITALS: BP 122/58
[2020-12-14 21:38] VITALS: BP 117/76
[2020-12-14] MEDS: ENOXAPARIN 40 MG/0.4 ML (LOVENOX) SYR SC SCH (21:50)
[2020-12-14] MEDS: MELATONIN 3 MG TABLET PO PRN (21:51)
[2020-12-14] MEDS: HYDROcodone/APAP 7.5MG-325 MG/15 ML (LORTAB) UDC PO PRN (21:52)
[2020-12-15 05:57] VITALS: BP 117/57
[2020-12-15] MEDS: SUCRALFATE 1 GM (CARAFATE) TAB PO SCH ×4 (06:26→20:25)
[2020-12-15] MEDS: TRELEGY ELLIPTA IH SCH (07:41)
[2020-12-15] MEDS: NICOTINE PATCH REMOVAL TP SCH (09:20)
[2020-12-15 09:30] VITALS: BP 131/59
[2020-12-15] MEDS: amLODIPine 10 MG (NORVASC) TAB PO SCH (09:53)
[2020-12-15] MEDS: PANTOPRAZOLE 40 MG (PROTONIX) TAB PO SCH ×2 (09:53→20:26)
[2020-12-15] MEDS: METOCLOPRAMIDE INJ 10 MG/2 ML (REGLAN) IVP SCH ×2 (09:53→20:25)
[2020-12-15] MEDS: NICOTINE 14 MG (NICODERM) PATCH TD SCH (09:53)
[2020-12-15] MEDS: meTOprolol TARTRATE 25 MG (LOPRESSOR) TABLET PO SCH ×2 (09:53→20:25)
[2020-12-15] MEDS: lisINopril 20 MG (PRINIVIL) TABLET PO SCH (09:53)
[2020-12-15] MEDS: SODIUM CHLORIDE 1 GM TABLET PO SCH ×2 (09:54→20:26)
[2020-12-15] MEDS: polyethylene glycoL POWDER 17 GM (MIRALAX) PACK PO SCH ×2 (10:19→20:30)
[2020-12-15] MEDS: DOCUSATE SODIUM 100 MG (COLACE) CAP PO SCH ×2 (10:19→20:30)
[2020-12-15] MEDS: SENNA W/DOCUSATE (SENOKOT S) TABLET PO SCH ×2 (10:19→20:30)
--- NOTE | 2020-12-15 11:52 | PM&R Progress Note ---
Subjective HPI/CC On Admission Date Seen by Provider: Dec 15, 2020 Time Seen by Provider: 11:45 Subjective/Events-last exam 12/15/20: Patient doing well Sleeps a lot Pain is improved Dr Wright managing retention 12/14/20: Flomax started Dr Wright ordered in/out caths prn Patient is doing better No falls Pain is controlled Wound vac in place 12/13/20: Voiding is an issue Retention requiring in/out cath Dr Wright appreciated Checked meds and labs 12/12/20: Patient doing well Ambulated in front of me with assistance No pain reported No new issues Fluid restriction noted 12/11/20: Patient doing well Sodium level 129 No pain reported Fluid restriction maintained Ileostomy bag no leak Wound vac still in place 12/10/20: Participation with therapy good just slow Parallel bars but could not stand Fluid restriction maintained 12/09/20: Patient feels good Hgb 9.0 Sodium 127 2 person assist still Output 600 in ileostomy Lovenox maintained 12/08/20: Patient feels good and feels stronger Hgb 8.9 Sodium level 127 Ileostomy functioning well but bag keep leaking Gluteus cleft stage 2 decubitus ulcer Review of Systems General: Fatigue Pulmonary: Dyspnea Objective Exam Vital Signs Vital Signs Date Time Temp Pulse Resp B/P (MAP) Pulse Ox O2 Delivery O2 Flow Rate FiO2 12/15/20 07:41 90 Room Air 12/15/20 05:57 36.4 87 18 117/57 (77) 12/14/20 18:04 92.00 12/14/20 09:00 9 Capillary Refill : General Appearance: No Apparent Distress, WD/WN, Chronically ill HEENT: PERRL/EOMI, Normal ENT Inspection, Pharynx Normal, Other ([place] severe) Neck: Normal Inspection, Supple Respiratory: Normal Breath Sounds, No Accessory Muscle Use, No Respiratory Distress Cardiovascular: Regular Rate, Rhythm, No Edema Gastrointestinal: Normal Bowel Sounds, No Organomegaly, No Pulsatile Mass, Non Tender, Soft, Other (ileostomy) Back: Normal Inspection, No CVA Tenderness, No Vertebral Tenderness Extremity: Normal Inspection, Normal Range of Motion Neurologic/Psychiatric: Alert, Oriented x3, No Motor/Sensory Deficits, Normal Mood/Affect, medical intern II-XII Norm as Tested, Motor Weakness (3/5 all extremities) Skin: Normal Color, Warm/Dry, Other (Mild like abdominal incision C/D/I with wound vac in place. No surrounding redness. Left upper LANE drain with minimal Clear ss to serous drainage.) Lymphatic: No Adenopathy Results/Procedures Lab Patient resulted labs reviewed. FIM Transfers Therapy Code Descriptions/Definitions Functional [place] Measure: 0=Not Assessed/NA 4=Minimal Assistance 1=Total Assistance 5=Supervision or Setup 2=Maximal Assistance 6=Modified [place] 3=Moderate Assistance 7=Complete IndependenceSCALE: Activities may be completed with or without assistive devices. 5-Jlliffphpj-nerxcng completes the activity by him/herself with no assistance from a helper. 5-Set-up or Clean-up Assistance-helper sets up or cleans up; patient completes activity. [place] assists only prior to or following the activity. 4-Supervision or Touching Assistance-helper provides verbal cues and/or touching/steadying and/or contact guard assistance as patient completes activity. Assistance may be provided throughout the activity or intermittently. 3-Partial/Moderate Assistance-helper does LESS THAN HALF the effort. [place] lifts, holds or supports trunk or limbs, but provides less than half the effort. 2-Substantial/Maximal Assistance-helper does MORE THAN HALF the effort. [place] lifts or holds trunk or limbs and provides more than half the effort. 7-Tpvnkrrqi-gshaek does ALL the effort. Patient does none of the effort to complete the activity. Or, the assistance of 2 or more helpers is required for the patient to complete the activity. If activity was not attempted, code reason: 7-Patient Refused. 9-Not Applicable-not attempted and the patient did not perform the activity before the current illness, exacerbation or injury. 10-Not Attempted due to Environmental Limitations-(lack of equipment, weather restraints, etc.). 88-Not Attempted due to Medical Conditions or Safety Concerns. Roll Left to Right (QC): 4 Sit to Lying (QC): 4 Sit to Stand (QC): 4 Chair/Swg-ys-Vrudm Xfer(QC): 4 Car Transfer (QC): 88 Gait Training Does the Patient Walk?: Yes Distance: 10' x3 Walk 10 feet (QC): 4 Walk 50 ft with 2 Turns(QC): 88 Walk 150 ft (QC): 88 Walking 10ft/uneven surface-QC: 88 Gait Persons Needed: 2 Gait Assistive Device: FWW Wheelchair Training Does the Pt Use a Wheelchair?: Yes Wheel 50 ft with 2 turns (QC): 4 Wheel 150 ft (QC): 4 Type of Wheelchair: Manual Stair Training #of Steps: 0 1 Step (curb) (QC): 88 4 Steps (QC): 88 12 Steps (QC): 88 Balance Picking up an Object (QC): 88 ADL-Treatment Eating (QC): 5 Oral Hygiene (QC): 7 Shower/Bathe Self (QC): 3 Upper Body Dressing (QC): 5 Lower Body Dressing (QC): 3 (Pt. agrees to don street clothing this date. Pt. 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 Urinary retention 12/13/20 Plan: IRF protocol Monitor pain O2 Nebs IS Lovenox 12/08/20: Xanax ordered Ileostomy functioning well but bag leaking Decubitus ulcer management 12/09/20: Monitor fluid restriction Salt tablets Monitor pain Ileostomy function monitoring 12/10/20: Salt tablets Fluid restriction Monitor closely Intensive therapy 12/11/20: Continue fluid restriction Salt tablets Monitor pain 12/12/20: Ambulating well today Fantastic progress 12/13/20: Urinary retention Dr Wright Monitor closely 12/14/20: Flomax started Dr Wright appreciated Pain control 12/15/20: Improved Retention per Dr Wright Wound vac (1) Myopathy (2) Ileus following gastrointestinal surgery (3) S/P right hemicolectomy (4) Presbycusis of both ears (5) Ileostomy in place (6) Anemia due to acute blood loss (7) Colon cancer (8) Hyponatremia (9) COPD (chronic obstructive pulmonary disease) (10) DVT prophylaxis WILFREDO MARTÍNEZ DO Dec 15, 2020 11:52
[2020-12-15] MEDS: TAMSULOSIN 0.4 MG (FLOMAX) CAP PO SCH (18:28)
[2020-12-15 18:30] VITALS: BP 119/59
[2020-12-15 20:20] VITALS: BP 107/52
[2020-12-15] MEDS: MELATONIN 3 MG TABLET PO PRN (20:25)
[2020-12-15] MEDS: HYDROcodone/APAP 7.5MG-325 MG/15 ML (LORTAB) UDC PO PRN (20:25)
[2020-12-15] MEDS: ENOXAPARIN 40 MG/0.4 ML (LOVENOX) SYR SC SCH (20:26)
[2020-12-16 05:43] LABS: BASOPHILS % (AUTO) 0 % (0-10); EOSINOPHILS # (AUTO) 0.1 10^3/uL (0.0-0.3); EOSINOPHILS % (AUTO) 1 % (0-10); HEMATOCRIT 26 % (35-52); HEMOGLOBIN 8.4 g/dL (11.5-16.0); LYMPHOCYTES # (AUTO) 2.3 10^3/uL (1.0-4.0); LYMPHOCYTES % (AUTO) 25 % (12-44); MEAN CORPUSCULAR HEMOGLOBIN 29 pg (25-34); MEAN CORPUSCULAR HGB CONC 33 g/dL (32-36); MEAN CORPUSCULAR VOLUME 89 fL (80-99); MEAN PLATELET VOLUME 8.8 fL (9.0-12.2); MONOCYTES % (AUTO) 11 % (0-12); NEUTROPHILS # (AUTO) 5.3 10^3/uL (1.8-7.8); NEUTROPHILS % (AUTO) 59 % (42-75); PLATELET COUNT 267 10^3/uL (130-400)
[2020-12-16 06:00] LABS: ALBUMIN 2.5 GM/DL (3.2-4.5); CHLORIDE 99 MMOL/L (98-107); POTASSIUM 4.1 MMOL/L (3.6-5.0); SODIUM 130 MMOL/L (135-145)
[2020-12-16 06:01] LABS: CALCIUM 7.7 MG/DL (8.5-10.1)
[2020-12-16 06:02] LABS: GLUCOSE 126 MG/DL (70-105); TOTAL PROTEIN 5.9 GM/DL (6.4-8.2)
[2020-12-16 06:03] LABS: CARBON DIOXIDE 20 MMOL/L (21-32)
[2020-12-16 06:04] LABS: BILIRUBIN,TOTAL 0.2 MG/DL (0.1-1.0)
[2020-12-16 06:06] LABS: ALKALINE PHOSPHATASE 135 U/L (40-136); GFR ESTIMATED > 60
[2020-12-16 06:07] LABS: BUN/CREATININE RATIO 16
[2020-12-16 06:09] LABS: ALANINE AMINOTRANSFERASE 43 U/L (0-55)
[2020-12-16 06:28] VITALS: BP 119/56
[2020-12-16] MEDS: SUCRALFATE 1 GM (CARAFATE) TAB PO SCH ×4 (06:43→21:42)
[2020-12-16] MEDS: SENNA W/DOCUSATE (SENOKOT S) TABLET PO SCH ×2 (07:36→21:29)
[2020-12-16] MEDS: DOCUSATE SODIUM 100 MG (COLACE) CAP PO SCH ×2 (07:37→21:29)
[2020-12-16] MEDS: polyethylene glycoL POWDER 17 GM (MIRALAX) PACK PO SCH ×2 (07:37→21:29)
[2020-12-16] MEDS: amLODIPine 10 MG (NORVASC) TAB PO SCH (07:51)
[2020-12-16] MEDS: meTOprolol TARTRATE 25 MG (LOPRESSOR) TABLET PO SCH ×2 (07:51→21:42)
[2020-12-16] MEDS: lisINopril 20 MG (PRINIVIL) TABLET PO SCH (07:51)
[2020-12-16] MEDS: METOCLOPRAMIDE INJ 10 MG/2 ML (REGLAN) IVP SCH ×2 (07:51→21:40)
[2020-12-16] MEDS: PANTOPRAZOLE 40 MG (PROTONIX) TAB PO SCH ×2 (07:51→21:42)
[2020-12-16] MEDS: SODIUM CHLORIDE 1 GM TABLET PO SCH ×2 (07:52→21:41)
[2020-12-16] MEDS: NICOTINE 14 MG (NICODERM) PATCH TD SCH (07:52)
[2020-12-16] MEDS: NICOTINE PATCH REMOVAL TP SCH (07:56)
--- NOTE | 2020-12-16 09:05 | PM&R Progress Note ---
Subjective HPI/CC On Admission Date Seen by Provider: Dec 16, 2020 Time Seen by Provider: 09:15 Subjective/Events-last exam 12/16/20: Ileostomy put out 800cc Hgb 8.4 Iron level will be ordered Sodium level 130 so will DC fluid restriction Overall much improved 12/15/20: Patient doing well Sleeps a lot Pain is improved Dr Wright managing retention 12/14/20: Flomax started Dr Wright ordered in/out caths prn Patient is doing better No falls Pain is controlled Wound vac in place 12/13/20: Voiding is an issue Retention requiring in/out cath Dr Wright appreciated Checked meds and labs 12/12/20: Patient doing well Ambulated in front of me with assistance No pain reported No new issues Fluid restriction noted 12/11/20: Patient doing well Sodium level 129 No pain reported Fluid restriction maintained Ileostomy bag no leak Wound vac still in place 12/10/20: Participation with therapy good just slow Parallel bars but could not stand Fluid restriction maintained 12/09/20: Patient feels good Hgb 9.0 Sodium 127 2 person assist still Output 600 in ileostomy Lovenox maintained 12/08/20: Patient feels good and feels stronger Hgb 8.9 Sodium level 127 Ileostomy functioning well but bag keep leaking Gluteus cleft stage 2 decubitus ulcer Review of Systems General: Fatigue, Malaise Pulmonary: Dyspnea Neurological: Weakness, Incoordination Objective Exam Vital Signs Vital Signs Date Time Temp Pulse Resp B/P (MAP) Pulse Ox O2 Delivery O2 Flow Rate FiO2 12/16/20 21:12 91 Room Air 12/16/20 18:00 36.8 88 20 108/60 (76) 12/14/20 18:04 92.00 12/14/20 09:00 9 Capillary Refill : General Appearance: No Apparent Distress, WD/WN, Chronically ill HEENT: PERRL/EOMI, Normal ENT Inspection, Pharynx Normal, Other (deering severe) Neck: Normal Inspection, Supple Respiratory: Normal Breath Sounds, No Accessory Muscle Use, No Respiratory Distress Cardiovascular: Regular Rate, Rhythm, No Edema Gastrointestinal: Normal Bowel Sounds, No Organomegaly, No Pulsatile Mass, Non Tender, Soft, Other (ileostomy) Back: Normal Inspection, No CVA Tenderness, No Vertebral Tenderness Extremity: Normal Inspection, Normal Range of Motion Neurologic/Psychiatric: Alert, Oriented x3, No Motor/Sensory Deficits, Normal Mood/Affect, construction coordinator II-XII Norm as Tested, Motor Weakness (3/5 all extremities) Skin: Normal Color, Warm/Dry, Other (Mild like abdominal incision C/D/I with wound vac in place. No surrounding redness. Left upper LANE drain with minimal Clear ss to serous drainage.) Lymphatic: No Adenopathy Results/Procedures Lab Laboratory Tests 12/16/20 05:30 Patient resulted labs reviewed. FIM Transfers Therapy Code Descriptions/Definitions Functional [place] Measure: 0=Not Assessed/NA 4=Minimal Assistance 1=Total Assistance 5=Supervision or Setup 2=Maximal Assistance 6=Modified [place] 3=Moderate Assistance 7=Complete IndependenceSCALE: Activities may be completed with or without assistive devices. 5-Tsxccfgldk-btopjlt completes the activity by him/herself with no assistance from a helper. 5-Set-up or Clean-up Assistance-helper sets up or cleans up; patient completes activity. [place] assists only prior to or following the activity. 4-Supervision or Touching Assistance-helper provides verbal cues and/or touching/steadying and/or contact guard assistance as patient completes activity. Assistance may be provided throughout the activity or intermittently. 3-Partial/Moderate Assistance-helper does LESS THAN HALF the effort. [place] lifts, holds or supports trunk or limbs, but provides less than half the effort. 2-Substantial/Maximal Assistance-helper does MORE THAN HALF the effort. [place] lifts or holds trunk or limbs and provides more than half the effort. 0-Dnkmfljli-bxuoxr does ALL the effort. Patient does none of the effort to complete the activity. Or, the assistance of 2 or more helpers is required for the patient to complete the activity. If activity was not attempted, code reason: 7-Patient Refused. 9-Not Applicable-not attempted and the patient did not perform the activity before the current illness, exacerbation or injury. 10-Not Attempted due to Environmental Limitations-(lack of equipment, weather restraints, etc.). 88-Not Attempted due to Medical Conditions or Safety Concerns. Roll Left to Right (QC): 4 Sit to Lying (QC): 4 Sit to Stand (QC): 4 Chair/Qfw-ec-Dcpev Xfer(QC): 4 Car Transfer (QC): 88 Gait Training Does the Patient Walk?: Yes Distance: 10' x3 Walk 10 feet (QC): 4 Walk 50 ft with 2 Turns(QC): 88 Walk 150 ft (QC): 88 Walking 10ft/uneven surface-QC: 88 Gait Persons Needed: 2 Gait Assistive Device: FWW Wheelchair Training Does the Pt Use a Wheelchair?: Yes Wheel 50 ft with 2 turns (QC): 4 Wheel 150 ft (QC): 4 Type of Wheelchair: Manual Stair Training #of Steps: 0 1 Step (curb) (QC): 88 4 Steps (QC): 88 12 Steps (QC): 88 Balance Picking up an Object (QC): 88 ADL-Treatment Eating (QC): 5 Oral Hygiene (QC): 7 Shower/Bathe Self (QC): 3 Upper Body Dressing (QC): 5 Lower Body Dressing (QC): 3 (Pt. agrees to don street clothing this date. Pt. 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 Urinary retention 12/13/20 Plan: IRF protocol Monitor pain O2 Nebs IS Lovenox 12/08/20: Xanax ordered Ileostomy functioning well but bag leaking Decubitus ulcer management 12/09/20: Monitor fluid restriction Salt tablets Monitor pain Ileostomy function monitoring 12/10/20: Salt tablets Fluid restriction Monitor closely Intensive therapy 12/11/20: Continue fluid restriction Salt tablets Monitor pain 12/12/20: Ambulating well today Fantastic progress 12/13/20: Urinary retention Dr Wright Monitor closely 12/14/20: Flomax started Dr Wright appreciated Pain control 12/15/20: Improved Retention per Dr Wright Wound vac 12/16/20: In/Out cath Monitor pain Monitor for UTI (1) Myopathy (2) Ileus following gastrointestinal surgery (3) S/P right hemicolectomy (4) Presbycusis of both ears (5) Ileostomy in place (6) Anemia due to acute blood loss (7) Colon cancer (8) Hyponatremia (9) COPD (chronic obstructive pulmonary disease) (10) DVT prophylaxis WILFREDO MARTÍNEZ DO Dec 16, 2020 09:04
--- NOTE | 2020-12-16 09:22 | Physical Therapy Daily Note ---
PT Daily Note-Current Subjective Pt. states she is feeling so much stronger and has very little to no pain. Pt. states SOB and fatigue cont to slow her down during activities. Pt. agrees to co Rx PT OT session Pain Location: No Pain Reported Mental Status Patient Orientation: Person, Place, Time, Situation Attachments: Other-See Comments (wound vacc) Transfers SCALE: Activities may be completed with or without assistive devices. 6-Omhfqlacky-oeznqwk completes the activity by him/herself with no assistance from a helper. 5-Set-up or Clean-up Assistance-helper sets up or cleans up; patient completes activity. [place] assists only prior to or following the activity. 4-Supervision or Touching Assistance-helper provides verbal cues and/or touching/steadying and/or contact guard assistance as patient completes activity. Assistance may be provided throughout the activity or intermittently. 3-Partial/Moderate Assistance-helper does LESS THAN HALF the effort. [place] lifts, holds or supports trunk or limbs, but provides less than half the effort. 2-Substantial/Maximal Assistance-helper does MORE THAN HALF the effort. [place] lifts or holds trunk or limbs and provides more than half the effort. 2-Ugpicdroy-utymbi does ALL the effort. Patient does none of the effort to complete the activity. Or, the assistance of 2 or more helpers is required for the patient to complete the activity. If activity was not attempted, code reason: 7-Patient Refused. 9-Not Applicable-not attempted and the patient did not perform the activity before the current illness, exacerbation or injury. 10-Not Attempted due to Environmental Limitations-(lack of equipment, weather restraints, etc.). 88-Not Attempted due to Medical Conditions or Safety Concerns. Roll Left & Right (QC): 6 Sit to Lying (QC): 6 Lying to Sitting/Side of Bed(Q: 6 Sit to Stand (QC): 5 Toilet Transfer (QC): 4 pt. improved from initially requiring min to mod assist for sit to stand to 4 trials at CGA to SBA with cues and instruction only Weight Bearing Full Weight Bearing Full Weight Bearing Gait Training Does the Patient Walk?: Yes Walk 10 feet (QC): 4 Gait Persons Needed: 1 Gait Assistive Device: FWW pt. ambulated 12 ft x 2 with FWW CGA and assist for [place] but declined doing this further as she c/o fatigue and SOB, all sats >90%, HR 105 to 98 bpm Wheelchair Training Does the Pt Use a Wheelchair?: Yes Wheel 50 ft with 2 turns (QC): 4 Type of Wheelchair: Manual cues for braking and steering. Exercises Supine Ex: Bridging (x5), Ankle pumps, Quad Set, Rolling, Glut sets, Heel Slides, Short Arc Quads, Scooting (up in bed indep), Straight leg raise, Hip abd/add Supine Reps: 20 Seated Therapy Exercises: Ankle pumps, Sit to stand, Long arc quads, Hip flexion Seated Reps: 12 Treatments co Rx with OT for balance activities , and ADLs, w/c training and gait , Pt. kristian muhammad in strength and endurance Assessment Current Status: Good Progress PT Short Term Goals Short Term Goals Time Frame: Dec 21, 2020 Roll Left & Right: 4 Sit to lyin Lying to sitting on side of be: 4 Sit to stand: 4 Chair/iop-jb-auhdj transfer: 4 Toilet transfer: 4 Car transfer: 3 Walk 10 feet: 4 Walk 50 feet with two turns: 4 Walk 150 feet: 4 Walking 10ft on uneven surface: 4 1 step (curb): 4 Does pt use a wc or scooter: Yes Wheel 50ft w/2 turns: 4 Wheel 150 feet: 4 Type: Manual PT Fdc Goals Fdc Goals PT Fdc Goals Time Frame: Jan 04, 2021 Roll Left & Right (QC): 6 Sit to Lying (QC): 6 Lying-Sitting on Side/Bed(QC): 6 Sit to Stand (QC): 6 Chair/Agj-fr-Xqidm Xfer(QC): 6 Toilet Transfer (QC): 6 Car Transfer (QC): 5 Does the Patient Walk: Yes Walk 10 feet (QC): 6 Walk 50ft with 2 Turns (QC): 6 Walk 150 ft (QC): 5 Walking 10ft on Uneven Surface: 6 1 Step (curb) (QC): 5 4 Steps (QC): 5 12 Steps (QC): 4 Picking up an Object (QC): 4 Does the Pt use WC or Scooter?: Yes Wheel 50 feet with 2 turns (QC: 6 Type: Manual Wheel 150 feet: 6 Type: Manual PT Plan Treatment/Plan Treatment Plan: Continue Plan of Care Treatment Plan: Bed Mobility, Concurrent Therapy, Functional Activity [place], Functional Strength, Group Therapy, Gait, Safety, Therapeutic Exercise, Transfe rs Treatment Duration: Jan 04, 2021 Frequency: At least 5 of 7 days/Wk (IRF) Estimated Hrs Per Day: 1.5 hours per day Patient and/or Family Agrees t: Yes Safety Risks/Education Patient Education: Gait Training, Transfer Techniques, Correct Positioning, W/C Management, Disease Process, Safety Issues Teaching Recipient: Patient Teaching Methods: Demonstration, Discussion Response to Teaching: Verbalize Understanding, Return Demonstration, Reinforcement Needed Time/GCodes Time In: 800 Time Out: 915 Total Billed Treatment Time: 75 Total Billed Treatment 1,EX25m,GT15m,WC15m,FA20m (co Rx with OT 45m) DUSTIN MARSH ELECTRICIAN MAINTENANCE Dec 16, 2020 09:22
[2020-12-16] MEDS: TRELEGY ELLIPTA IH SCH (09:37)
--- NOTE | 2020-12-16 10:03 | Occupational Ther Daily Note ---
OT Current Status-Daily Note Subjective Pt. reports 8/10 pain in lower back. Request pain pill. This is at end of session. Nursing notified and giving pt. pain meds. Mental Status/Objective Patient Orientation: Person, Place Attachments: Colostomy/Ileostomy, IV ADL-Treatment Therapy Code Descriptions/Definitions Functional [place] Measure: 0=Not Assessed/NA 4=Minimal Assistance 1=Total Assistance 5=Supervision or Setup 2=Maximal Assistance 6=Modified [place] 3=Moderate Assistance 7=Complete IndependenceSCALE: Activities may be completed with or without assistive devices. 4-Vvdpkqkmzp-egnnnpv completes the activity by him/herself with no assistance from a helper. 5-Set-up or Clean-up Assistance-helper sets up or cleans up; patient completes activity. [place] assists only prior to or following the activity. 4-Supervision or Touching Assistance-helper provides verbal cues and/or touching/steadying and/or contact guard assistance as patient completes activity. Assistance may be provided throughout the activity or intermittently. 3-Partial/Moderate Assistance-helper does LESS THAN HALF the effort. [place] lifts, holds or supports trunk or limbs, but provides less than half the effort. 2-Substantial/Maximal Assistance-helper does MORE THAN HALF the effort. [place] lifts or holds trunk or limbs and provides more than half the effort. 9-Wfdotrkkb-jcvefu does ALL the effort. Patient does none of the effort to complete the activity. Or, the assistance of 2 or more helpers is required for the patient to complete the activity. If activity was not attempted, code reason: 7-Patient Refused. 9-Not Applicable-not attempted and the patient did not perform the activity before the current illness, exacerbation or injury. 10-Not Attempted due to Environmental Limitations-(lack of equipment, weather restraints, etc.). 88-Not Attempted due to Medical Conditions or Safety Concerns. Toileting Hygiene (QC): 4 Toilet Transfer (QC): 3 (Min assist) Other Treatment Pt. seen this date for partial co-treatment with PT due to low endurance and activity tolerance. Pt. improving overall. OT facilitated UE reach and weight shift while PT facilitated standing balance and transfers at parallel bar. Pt. worked on sit-stand, with multiple reps. Eventually able to do so with SBA/CGA. Pt. requires multiple rest breaks. Not wearing oxygen. Sats monitored throughout and are approximately 95-97% on room air. OT attempted to have pt. dress self, but pt. declines at this time. Noted that pt.'s clothing dirty, and so OT washes for pt. Pt. also participates in fine motor strengthening activity with emphasis and activity tolerance. Pt. requests to go back to room early, and requires encouragement to continue participating. Pt. does attempt to self propel back to room, but states that she is too tired. PT taken to room via wheelchair. Transfers to bed with CGA. Requests for OT to set up bed for her, including moving her blankets and positioning pillows. OT encourages pt. that as she is making progress, one goal will be for her to set herself up, as she will be home alone at times. Pt. verbalizes understanding. All needs met. Education OT Patient Education: Correct positioning, Modified ADL techniques, Progress toward Goal/Update tx plan, Purpose of tx/functional activities, Reviewed precautions, Rehab process, Transfer techniques Teaching Recipient: Patient Teaching Methods: Demonstration, Discussion Response to Teaching: Verbalize Understanding, Return Demonstration, Reinforcement Needed OT Short Term Goals Short Term Goals Time Frame: Dec 23, 2020 Eatin Oral hygiene: 4 Toileting hygiene: 3 Shower/bathe self: 3 Upper body dressin Lower body dressin Putting on/taking off footwear: 3 OT Chronic Care Nurse Goals Chronic Care Nurse Goals Time Frame: Jan 06, 2021 Eating (QC): 6 Oral Hygiene (QC): 6 Toileting Hygiene (QC): 4 Shower/Bathe Self (QC): 4 Upper Body Dressing (QC): 5 Lower Body Dressing (QC): 4 On/Off Footwear (QC): 4 Additional Goals: 1-Demonstrate ADL Tasks, 2-Verbalize Understanding, 3-ImproveStrength/[place] 1=Demonstrate adherence to instructed precautions during ADL tasks. 2=Patient will verbalize/demonstrate understanding of assistive devices/modifications for ADL. 3=Patient will improve strength/tolerance for activity to enable patient to perform ADL's. OT Education/Plan Problem List/Assessment Assessment: Decreased Activ Tolerance, Impaired I ADL's, Impaired Self-Care Skills Discharge Recommendations Plan/Recommendations: Continue POC Therapy Discharge Recommendati: Post Acute OT Treatment Plan/Plan of Care Treatment,Training & Education: Yes Patient would benefit from OT for education, treatment and training to promote independence in ADL's, mobility, safety and/or upper extremity function for ADL's. Plan of Care: ADL Retraining, Concurrent Therapy, Functional Mobility, W/C Management Training Treatment Duration: Dec 09, 2020 Frequency: At least 5 of 7 days/Wk (IRF) Estimated Hrs Per Day: 1.5 hours per day Agreement: Yes Rehab Potential: Fair Time/GCodes Start Time: 08:30 Stop Time: 09:45 Total Time Billed (hr/min): 75 Billed Treatment Time 7044-9800 1, FA x [id number] with PT FA x 30minutes KOKI STOKES OT Dec 16, 2020 10:03
--- NOTE | 2020-12-16 11:03 | CONSULTATION REPORT ---
DATE OF SERVICE: 12/16/2020 ATTENDING PHYSICIAN: Dr. Chapman. SUMMARY: A 75-year-old white lady with a complaint of urinary retention after removing the catheter. I went ahead and started her on Flomax 0.4 mg daily and a bladder scan postvoid residual daily and p.r.n. with straight catheterization of over 300 mL and she started voiding better. Last residual was 105. No need for straight catheterization. She tolerates the Flomax well. I reviewed her record. IMPRESSION: Neurogenic bladder with retention. RECOMMENDATIONS: Continue present management and manage accordingly. We will reserve the Urecholine if needed. Job ID: [id number] DocumentID: [id number] Dictated Date: 12/16/2020 08:57:22 Environmental Remediation Consultant Date: 12/16/2020 11:02:29 Dictated By: SLY FORRESTER MD
[2020-12-16] MEDS: HYDROcodone/APAP 7.5MG-325 MG/15 ML (LORTAB) UDC PO PRN (11:28)
--- NOTE | 2020-12-16 13:11 | Speech Therapy Daily Note ---
Speech Daily Progress Note Subjective Date Seen by Provider: Dec 16, 2020 Time Seen by Provider: 00:30 Patient was resting in her bed waiting on lunch when I entered her room. Objective Patient completed problem solving questions related to her daily needs upon her return home with 90% given minimal cues and/or repetitions. Assessment Assessment Current Status: Good Progress Treatment Plan Continue Plan of Care Speech Short Term Goals Short Term Goals Short Term Goals 1) Patient will complete memory tasks related to her daily needs with minimal cues at 80% or greater. 2) Patient will complete safety awareness tasks related to her daily needs with minimal cues at 80% or greater. 3) Patient will complete problem solving tasks related to her daily needs with minimal cues at 80% or greater. Speech Quality Improvement Specialist Goals Quality Improvement Specialist Goals Patient will improve cognitive-communication necessary for safety and daily living tasks with minimal assist. Speech-Plan Patient/Family Goals Patient/Family Goals: Patient plans on returning to her home where she lives with her sister. Treatment Plan Speech Therapy Treatment Plan: Continue Plan of Care Treatment Duration: Dec 20, 2020 Frequency: 4 times per week (Patient will receive skilled ST 4-5x per week) Estimated Hrs Per Day: .5 hour per day Rehab Potential: Fair Barriers to Learning: Patient's recent COVID for 2 months and the after affects. Pt/Family Agrees to Plan: Yes Safety Risks/Education Teaching Recipient: Patient Teaching Methods: Demonstration, Discussion Response to Teaching: Verbalize Understanding, Return Demonstration Education Topics Provided: Continued safety within her room and upon her return home, communication of wants/needs Time Speech Therapy Time In: 11:30 Speech Therapy Time Out: 12:00 Total Billed Time: 30 Billed Treatment Time LOC [place] [facility] Dec 16, 2020 13:11
[2020-12-16 18:00] VITALS: BP 108/60
--- NOTE | 2020-12-16 18:03 | Progress Note ---
Subjective Date Seen by a Provider: Dec 16, 2020 Time Seen by a Provider: 18:00 Subjective/Events-last exam doing well. voiding better. wound improvement. tolerating diet. no fever/chills. Objective Exam Vital Signs Date Time Temp Pulse Resp B/P (MAP) Pulse Ox O2 Delivery O2 Flow Rate FiO2 12/16/20 09:37 93 Room Air 12/16/20 09:00 92 Room Air 12/16/20 06:28 36.7 87 18 119/56 (77) 98 Room Air 12/15/20 21:13 90 Room Air 12/15/20 20:30 92 Room Air 12/15/20 20:20 36.7 91 20 107/52 (70) 92 Room Air 12/15/20 18:30 36.2 97 20 119/59 (79) 93 Room Air I & O 12/16/20 07:00 Intake Total 1312 ml Output Total 2870 ml Balance -1558 ml Capillary Refill : General Appearance: No Apparent Distress HEENT: PERRL/EOMI Neck: Full Range of Motion Respiratory: Rhonci, Wheezing Cardiovascular: Regular Rate, Rhythm Gastrointestinal: normal bowel sounds, non tender, soft Extremity: Normal Capillary Refill Neurologic/Psychiatric: Alert, Oriented x3 Skin: Normal Color Lymphatic: No Adenopathy Results Lab Laboratory Tests 12/16/20 05:30: White Blood Count 9.0, Red Blood Count 2.88L, Hemoglobin 8.4L, Hematocrit 26L, Mean Corpuscular Volume 89, Mean Corpuscular Hemoglobin 29, Mean Corpuscular Hemoglobin Concent 33, Red Cell Distribution Width 14.1, Platelet Count 267, Mean Platelet Volume 8.8L, Immature Granulocyte % (Auto) 4, Neutrophils (%) (Auto) 59, Lymphocytes (%) (Auto) 25, Monocytes (%) (Auto) 11, Eosinophils (%) (Auto) 1, Basophils (%) (Auto) 0, Neutrophils # (Auto) 5.3, Lymphocytes # (Auto) 2.3, Monocytes # (Auto) 1.0, Eosinophils # (Auto) 0.1, Basophils # (Auto) 0.0, Immature Granulocyte # (Auto) 0.3H, Sodium Level 130L, Potassium Level 4.1, Chloride Level 99, Carbon Dioxide Level 20L, Anion Gap 11, Blood Urea Nitrogen 11, Creatinine 0.70, Estimat Glomerular Filtration Rate > 60, BUN/Creatinine Ratio 16, Glucose Level 126H, Calcium Level 7.7L, Corrected Calcium 8.9, Total Bilirubin 0.2, Aspartate Amino Transf (AST/SGOT) 33, Alanine Aminotransferase (ALT/SGPT) 43, Alkaline Phosphatase 135, Total Protein 5.9L, Albumin 2.5L Assessment/Plan Assessment/Plan Assess & Plan/Chief Complaint transverse colonic ca s/p extended RHC, end ileostomy and mucous fistula, fascial dehiscence and fascial closure with biologic mesh. continue wound vac for secondary closure. cont rehab MICHAEL XIONG MD Dec 16, 2020 18:03
[2020-12-16] MEDS: TAMSULOSIN 0.4 MG (FLOMAX) CAP PO SCH (18:26)
[2020-12-16] MEDS: ENOXAPARIN 40 MG/0.4 ML (LOVENOX) SYR SC SCH (21:41)
[2020-12-16] MEDS: MELATONIN 3 MG TABLET PO PRN (21:42)
[2020-12-17] MEDS: SUCRALFATE 1 GM (CARAFATE) TAB PO SCH ×4 (05:44→21:48)
[2020-12-17 06:15] VITALS: BP 118/56
[2020-12-17] MEDS: NICOTINE PATCH REMOVAL TP SCH (08:23)
[2020-12-17] MEDS: lisINopril 20 MG (PRINIVIL) TABLET PO SCH (08:24)
[2020-12-17] MEDS: meTOprolol TARTRATE 25 MG (LOPRESSOR) TABLET PO SCH ×2 (08:24→21:48)
[2020-12-17] MEDS: NICOTINE 14 MG (NICODERM) PATCH TD SCH (08:24)
[2020-12-17] MEDS: PANTOPRAZOLE 40 MG (PROTONIX) TAB PO SCH ×2 (08:24→21:48)
[2020-12-17] MEDS: SODIUM CHLORIDE 1 GM TABLET PO SCH ×2 (08:24→21:49)
[2020-12-17] MEDS: amLODIPine 10 MG (NORVASC) TAB PO SCH (08:24)
[2020-12-17] MEDS: SENNA W/DOCUSATE (SENOKOT S) TABLET PO SCH ×2 (08:25→21:54)
[2020-12-17] MEDS: DOCUSATE SODIUM 100 MG (COLACE) CAP PO SCH ×2 (08:25→21:53)
[2020-12-17] MEDS: polyethylene glycoL POWDER 17 GM (MIRALAX) PACK PO SCH ×2 (08:25→21:54)
[2020-12-17] MEDS: METOCLOPRAMIDE INJ 10 MG/2 ML (REGLAN) IVP SCH ×2 (08:25→21:49)
--- NOTE | 2020-12-17 09:16 | Physical Therapy Daily Note ---
PT Daily Note-Current Subjective Pt laying Supine in bed with Nurse present. Pt agrees to PT. Pt asks to shower. Pain Numeric Pain Scale: 3 Location Body Site: Abdomen Pain Description: Ache Mental Status Patient Orientation: Person, Place, Situation Attachments: Colostomy/Ileostomy, Drains, Other-See Comments (Wound Vac.) Transfers SCALE: Activities may be completed with or without assistive devices. 9-Dwqmydxfzo-ncjekhh completes the activity by him/herself with no assistance from a helper. 5-Set-up or Clean-up Assistance-helper sets up or cleans up; patient completes activity. [place] assists only prior to or following the activity. 4-Supervision or Touching Assistance-helper provides verbal cues and/or touching/steadying and/or contact guard assistance as patient completes activity . Assistance may be provided throughout the activity or intermittently. 3-Partial/Moderate Assistance-helper does LESS THAN HALF the effort. Bryant lifts, holds or supports trunk or limbs, but provides less than half the effort. 2-Substantial/Maximal Assistance-helper does MORE THAN HALF the effort. [place] lifts or holds trunk or limbs and provides more than half the effort. 4-Gvnikwigx-xqudeu does ALL the effort. Patient does none of the effort to complete the activity. Or, the assistance of 2 or more helpers is required for the patient to complete the activity. If activity was not attempted, code reason: 7-Patient Refused. 9-Not Applicable-not attempted and the patient did not perform the activity before the current illness, exacerbation or injury. 10-Not Attempted due to Environmental Limitations-(lack of equipment, weather restraints, etc.). 88-Not Attempted due to Medical Conditions or Safety Concerns. Lying to Sitting/Side of Bed(Q: 5 Sit to Stand (QC): 4 Weight Bearing Full Weight Bearing Full Weight Bearing Gait Training Does the Patient Walk?: Yes Distance: 15' x2 Walk 10 feet (QC): 4 Gait Persons Needed: 1 Gait Assistive Device: FWW Treatments Pt. seen for partial co-treatment with PT due to skilled need of two therapists for low endurance and activity level. Pt. agrees to shower. Requires multiple rest breaks. After ADLs, pt. transfers to wheelchair in room. PT facilitates mobility, transfers, and standing balance while OT works on increased independence with ADLs. Assessment Current Status: Good Progress Pt is improving with transfers and independence of tasks but takes encouragement to complete as patient feels she needs help. PT Short Term Goals Short Term Goals Time Frame: Dec 21, 2020 Roll Left & Right: 4 Sit to lyin Lying to sitting on side of be: 4 Sit to stand: 4 Chair/kbz-am-gwzth transfer: 4 Toilet transfer: 4 Car transfer: 3 Walk 10 feet: 4 Walk 50 feet with two turns: 4 Walk 150 feet: 4 Walking 10ft on uneven surface: 4 1 step (curb): 4 Does pt use a wc or scooter: Yes Wheel 50ft w/2 turns: 4 Wheel 150 feet: 4 Type: Manual PT Residential Goals Billposting Supervisor Goals PT Residential Goals Time Frame: Jan 04, 2021 Roll Left & Right (QC): 6 Sit to Lying (QC): 6 Lying-Sitting on Side/Bed(QC): 6 Sit to Stand (QC): 6 Chair/Qxf-zr-Afuwj Xfer(QC): 6 Toilet Transfer (QC): 6 Car Transfer (QC): 5 Does the Patient Walk: Yes Walk 10 feet (QC): 6 Walk 50ft with 2 Turns (QC): 6 Walk 150 ft (QC): 5 Walking 10ft on Uneven Surface: 6 1 Step (curb) (QC): 5 4 Steps (QC): 5 12 Steps (QC): 4 Picking up an Object (QC): 4 Does the Pt use WC or Scooter?: Yes Wheel 50 feet with 2 turns (QC: 6 Type: Manual Wheel 150 feet: 6 Type: Manual PT Plan Problem List Problem List: Activity Tolerance, Safety, Gait Treatment/Plan Treatment Plan: Continue Plan of Care Treatment Plan: Bed Mobility, Concurrent Therapy, Functional Activity Palak, Functional Strength, Group Therapy, Gait, Safety, Therapeutic Exercise, Transfers Treatment Duration: Jan 04, 2021 Frequency: At least 5 of 7 days/Wk (IRF) Estimated Hrs Per Day: 1.5 hours per day Patient and/or Family Agrees t: Yes Safety Risks/Education Patient Education: Transfer Techniques, Correct Positioning, Safety Issues Teaching Recipient: Patient Teaching Methods: Discussion Response to Teaching: Verbalize Understanding Time/GCodes Time In: 830 Time Out: 915 Total Billed Treatment Time: 45 Total Billed Treatment 1, FA x3 (45m) Co-treat with OT for 45m PHILIPP CHAMBERS PTA Dec 17, 2020 09:16
--- NOTE | 2020-12-17 09:16 | Speech Therapy Daily Note ---
Speech Daily Progress Note Subjective Date Seen by Provider: Dec 17, 2020 Time Seen by Provider: 00:30 Patient was taking a nap in her bed following breakfast when I entered her room. She alerted and participated in therapy session. Objective Patient completed a word chain activity with 90% given min to mod cues and/or repetitions. Assessment Assessment Current Status: Good Progress Treatment Plan Continue Plan of Care Speech Short Term Goals Short Term Goals Short Term Goals 1) Patient will complete memory tasks related to her daily needs with minimal cues at 80% or greater. 2) Patient will complete safety awareness tasks related to her daily needs with minimal cues at 80% or greater. 3) Patient will complete problem solving tasks related to her daily needs with minimal cues at 80% or greater. Speech Senior Care Goals Senior Care Goals Patient will improve cognitive-communication necessary for safety and daily alina ng tasks with minimal assist. Speech-Plan Patient/Family Goals Patient/Family Goals: Patient plans on returning to her home where she lives with her sister. Treatment Plan Speech Therapy Treatment Plan: Continue Plan of Care Treatment Duration: Dec 20, 2020 Frequency: 4 times per week (Patient will receive skilled ST 4-5x per week) Estimated Hrs Per Day: .5 hour per day Rehab Potential: Fair Barriers to Learning: Patient's lengthy COVID recovery, mild cognitive deficits, however these are resolving well Pt/Family Agrees to Plan: Yes Safety Risks/Education Teaching Recipient: Patient Teaching Methods: Demonstration, Discussion Response to Teaching: Verbalize Understanding, Return Demonstration Education Topics Provided: Continued safety awareness on the ARU as well as upon return to her home Time Speech Therapy Time In: 08:00 Speech Therapy Time Out: 08:30 Total Billed Time: 30 Billed Treatment Time 1LOC [facility] Dec 17, 2020 09:16
--- NOTE | 2020-12-17 10:04 | Occupational Ther Daily Note ---
OT Current Status-Daily Note Subjective Pt. reports "a little bit" of pain in abdomen, but does not state pain level. Does not request pain medication. Mental Status/Objective Patient Orientation: Person, Place Attachments: Colostomy/Ileostomy, Drains, IV ADL-Treatment Therapy Code Descriptions/Definitions Functional [place] Measure: 0=Not Assessed/NA 4=Minimal Assistance 1=Total Assistance 5=Supervision or Setup 2=Maximal Assistance 6=Modified [place] 3=Moderate Assistance 7=Complete IndependenceSCALE: Activities may be completed with or without assistive devices. 5-Varkrhcnah-edhnbmh completes the activity by him/herself with no assistance from a helper. 5-Set-up or Clean-up Assistance-helper sets up or cleans up; patient completes activity. [place] assists only prior to or following the activity. 4-Supervision or Touching Assistance-helper provides verbal cues and/or touching/steadying and/or contact guard assistance as patient completes activity. Assistance may be provided throughout the activity or intermittently. 3-Partial/Moderate Assistance-helper does LESS THAN HALF the effort. [place] lifts, holds or supports trunk or limbs, but provides less than half the effort. 2-Substantial/Maximal Assistance-helper does MORE THAN HALF the effort. [place] lifts or holds trunk or limbs and provides more than half the effort. 2-Zopshheyv-goihlf does ALL the effort. Patient does none of the effort to complete the activity. Or, the assistance of 2 or more helpers is required for the patient to complete the activity. If activity was not attempted, code reason: 7-Patient Refused. 9-Not Applicable-not attempted and the patient did not perform the activity before the current illness, exacerbation or injury. 10-Not Attempted due to Environmental Limitations-(lack of equipment, weather restraints, etc.). 88-Not Attempted due to Medical Conditions or Safety Concerns. Eating (QC): 5 Oral Hygiene (QC): 7 Shower/Bathe Self (QC): 3 (Min assist in shower to cleanse rear red area in stance. Pt. utilized LH sponge for LE.) Upper Body Dressing (QC): 2 (Pt. able to thread one arm, but requires assist ance to bring around her back and thread left arm. Pt. attempts to snap her shirt, but requires assistance.) Lower Body Dressing (QC): 7 On/Off Footwear: 3 (Mod assist with sock aide.) Toileting Hygiene (QC): 3 (Pt. able to cleanse self after urinating, but requires full assist to empty and care for colostomy.) Toilet Transfer (QC): 3 Other Treatment Pt. seen for partial co-treatment with PT due to skilled need of two therapists for low endurance and activity level. Pt. agrees to shower. Requires multiple rest breaks. After ADLs, pt. transfers to wheelchair in room. PT facilitates mobility, transfers, and standing balance while OT works on increased independence with ADLs. Pt. is encouraged to self propel to therapy gym. Requires multiple rest breaks until OT pushes her rest of way. Pt. is able to complete 3 minutes on arm bike, with multiple rest breaks. Pt. taken back to room and transferred to bed with min assist. Pt. encouraged to start participating more in her care, such as positioning herself, blankets, etc. She is able to facilitate covering self up, as she will have to do at home, and placing pillows where she would like them. All needs met. Education OT Patient Education: Correct positioning, Exercise program, Modified ADL techniques, Progress toward Goal/Update tx plan, Purpose of tx/functional activities, Reviewed precautions, Rehab process, Transfer techniques Teaching Recipient: Patient Teaching Methods: Demonstration, Discussion Response to Teaching: Verbalize Understanding, Return Demonstration OT Short Term Goals Short Term Goals Time Frame: Dec 23, 2020 Eatin Oral hygiene: 4 Toileting hygiene: 3 Shower/bathe self: 3 Upper body dressin Lower body dressin Putting on/taking off footwear: 3 OT [facility] Goals Batch Mixing Truck Driver Goals Time Frame: Jan 06, 2021 Eating (QC): 6 Oral Hygiene (QC): 6 Toileting Hygiene (QC): 4 Shower/Bathe Self (QC): 4 Upper Body Dressing (QC): 5 Lower Body Dressing (QC): 4 On/Off Footwear (QC): 4 Additional Goals: 1-Demonstrate ADL Tasks, 2-Verbalize Understanding, 3- ImproveStrength/Palak 1=Demonstrate adherence to instructed precautions during ADL tasks. 2=Patient will verbalize/demonstrate understanding of assistive devices/modifications for ADL. 3=Patient will improve strength/tolerance for activity to enable patient to perform ADL's. OT Education/Plan Problem List/Assessment Assessment: Decreased Activ Tolerance, Dependent Transfers, Impaired I ADL's, Impaired Self-Care Skills Discharge Recommendations Plan/Recommendations: Continue POC Therapy Discharge Recommendati: Post Acute OT Treatment Plan/Plan of Care Treatment,Training & Education: Yes Patient would benefit from OT for education, treatment and training to promote independence in ADL's, mobility, safety and/or upper extremity function for ADL's. Plan of Care: ADL Retraining, Concurrent Therapy, Functional Mobility, W/C Management Training Treatment Duration: Dec 09, 2020 Frequency: At least 5 of 7 days/Wk (IRF) Estimated Hrs Per Day: 1.5 hours per day Agreement: Yes Rehab Potential: Fair Time/GCodes Start Time: 08:30 Stop Time: 09:45 Total Time Billed (hr/min): 75 Billed Treatment Time [id number] 1, ADL x [id number] with PT [id number] FA x 15minutes, Ex x 15minutes KOKI STOKES OT Dec 17, 2020 10:04
[2020-12-17] MEDS: TRELEGY ELLIPTA IH SCH (10:09)
[2020-12-17] MEDS: FENTANYL PATCH REMOVAL TP SCH (10:31)
[2020-12-17] MEDS: fentaNYL PATCH 25 MCG (DURAGESIC) TD SCH (10:33)
--- NOTE | 2020-12-17 11:14 | PM&R Progress Note ---
Subjective HPI/CC On Admission Date Seen by Provider: Dec 17, 2020 Time Seen by Provider: 10:30 Subjective/Events-last exam 12/17/20: Urecholine started by Dr. Wright and Pt denies any significant new issues Pain is well controlled Improved 12/16/20: Ileostomy put out 800cc Hgb 8.4 Iron level will be ordered Sodium level 130 so will DC fluid restriction Overall much improved 12/15/20: Patient doing well Sleeps a lot Pain is improved Dr Wright managing retention 12/14/20: Flomax started Dr Wright ordered in/out caths prn Patient is doing better No falls Pain is controlled Wound vac in place 12/13/20: Voiding is an issue Retention requiring in/out cath Dr Wright appreciated Checked meds and labs 12/12/20: Patient doing well Ambulated in front of me with assistance No pain reported No new issues Fluid restriction noted 12/11/20: Patient doing well Sodium level 129 No pain reported Fluid restriction maintained Ileostomy bag no leak Wound vac still in place 12/10/20: Participation with therapy good just slow Parallel bars but could not stand Fluid restriction maintained 12/09/20: Patient feels good Hgb 9.0 Sodium 127 2 person assist still Output 600 in ileostomy Lovenox maintained 12/08/20: Patient feels good and feels stronger Hgb 8.9 Sodium level 127 Ileostomy functioning well but bag keep leaking Gluteus cleft stage 2 decubitus ulcer Review of Systems General: Fatigue Pulmonary: Dyspnea Genitourinary: Retention Objective Exam Vital Signs Vital Signs Date Time Temp Pulse Resp B/P (MAP) Pulse Ox O2 Delivery O2 Flow Rate FiO2 12/17/20 21:50 92 Room Air 12/17/20 18:44 36.8 89 20 112/70 (84) 12/14/20 18:04 92.00 12/14/20 09:00 9 Capillary Refill : General Appearance: No Apparent Distress, WD/WN, Chronically ill HEENT: PERRL/EOMI, Normal ENT Inspection, Pharynx Normal, Other (circle severe) Neck: Normal Inspection, Supple Respiratory: Normal Breath Sounds, No Accessory Muscle Use, No Respiratory Distress Cardiovascular: Regular Rate, Rhythm, No Edema Gastrointestinal: Normal Bowel Sounds, No Organomegaly, No Pulsatile Mass, Non Tender, Soft, Other (ileostomy) Back: Normal Inspection, No CVA Tenderness, No Vertebral Tenderness Extremity: Normal Inspection, Normal Range of Motion Neurologic/Psychiatric: Alert, Oriented x3, No Motor/Sensory Deficits, Normal Mood/Affect, career services assistant II-XII Norm as Tested, Motor Weakness (3/5 all extremities) Skin: Normal Color, Warm/Dry, Other (Mild like abdominal incision C/D/I with wound vac in place. No surrounding redness. Left upper LANE drain with minimal Clear ss to serous drainage.) Lymphatic: No Adenopathy Results/Procedures Lab Patient resulted labs reviewed. FIM Transfers Therapy Code Descriptions/Definitions Functional [place] Measure: 0=Not Assessed/NA 4=Minimal Assistance 1=Total Assistance 5=Supervision or Setup 2=Maximal Assistance 6=Modified [place] 3=Moderate Assistance 7=Complete IndependenceSCALE: Activities may be completed with or without assistive devices. 3-Aicfiivcsb-lwxfclh completes the activity by him/herself with no assistance from a helper. 5-Set-up or Clean-up Assistance-helper sets up or cleans up; patient completes activity. [place] assists only prior to or following the activity. 4-Supervision or Touching Assistance-helper provides verbal cues and/or touching/steadying and/or contact guard assistance as patient completes activity. Assistance may be provided throughout the activity or intermittently. 3-Partial/Moderate Assistance-helper does LESS THAN HALF the effort. [place] lifts, holds or supports trunk or limbs, but provides less than half the effort. 2-Substantial/Maximal Assistance-helper does MORE THAN HALF the effort. [place] lifts or holds trunk or limbs and provides more than half the effort. 1-Gtdljxgni-fukzir does ALL the effort. Patient does none of the effort to complete the activity. Or, the assistance of 2 or more helpers is required for the patient to complete the activity. If activity was not attempted, code reason: 7-Patient Refused. 9-Not Applicable-not attempted and the patient did not perform the activity b efore the current illness, exacerbation or injury. 10-Not Attempted due to Environmental Limitations-(lack of equipment, weather restraints, etc.). 88-Not Attempted due to Medical Conditions or Safety Concerns. Roll Left to Right (QC): 6 Sit to Lying (QC): 6 Sit to Stand (QC): 5 Chair/Rco-cg-Mbubh Xfer(QC): 4 Car Transfer (QC): 88 Gait Training Does the Patient Walk?: Yes Distance: 10' x3 Walk 10 feet (QC): 4 Walk 50 ft with 2 Turns(QC): 88 Walk 150 ft (QC): 88 Walking 10ft/uneven surface-QC: 88 Gait Persons Needed: 1 Gait Assistive Device: FWW Wheelchair Training Does the Pt Use a Wheelchair?: Yes Wheel 50 ft with 2 turns (QC): 4 Wheel 150 ft (QC): 4 Type of Wheelchair: Manual Stair Training #of Steps: 0 1 Step (curb) (QC): 88 4 Steps (QC): 88 12 Steps (QC): 88 Balance Picking up an Object (QC): 88 ADL-Treatment Eating (QC): 5 Oral Hygiene (QC): 7 Shower/Bathe Self (QC): 3 (Min assist in shower to cleanse rear red area in stance. Pt. utilized LH sponge for LE.) Upper Body Dressing (QC): 2 (Pt. able to thread one arm, but requires assistance to bring around her back and thread left arm. Pt. attempts to snap her shirt, but requires assistance.) Lower Body Dressing (QC): 7 On/Off Footwear (QC): 3 (Mod assist with sock aide.) Toileting Hygiene (QC): 3 (Pt. 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 Urinary retention 12/13/20 Plan: IRF protocol Monitor pain O2 Nebs IS Lovenox 12/08/20: Xanax ordered Ileostomy functioning well but bag leaking Decubitus ulcer management 12/09/20: Monitor fluid restriction Salt tablets Monitor pain Ileostomy function monitoring 12/10/20: Salt tablets Fluid restriction Monitor closely Intensive therapy 12/11/20: Continue fluid restriction Salt tablets Monitor pain 12/12/20: Ambulating well today Fantastic progress 12/13/20: Urinary retention Dr Wright Monitor closely 12/14/20: Flomax started Dr Wright appreciated Pain control 12/15/20: Improved Retention per Dr Wright Wound vac 12/16/20: In/Out cath Monitor pain Monitor for UTI 12/17/20: Urecholine In/Out cath Monitor closely (1) Myopathy (2) Ileus following gastrointestinal surgery (3) S/P right hemicolectomy (4) Presbycusis of both ears (5) Ileostomy in place (6) Anemia due to acute blood loss (7) Colon cancer (8) Hyponatremia (9) COPD (chronic obstructive pulmonary disease) (10) DVT prophylaxis WILFREDO MARTÍNEZ DO Dec 17, 2020 11:14
--- NOTE | 2020-12-17 11:30 | Progress Note - Urology ---
Progress Note-Urology Progress Notes/Assess & Plan Progress/Assessment & Plan VOIDING ON OWN BUT CARRIES SOME RESIDUAL. WE WILL START URECHOLINE 10 MG AC AND HS Final Diagnosis URINE RETENTION SLY FORRESTER MD Dec 17, 2020 11:30
--- NOTE | 2020-12-17 15:28 | Physical Therapy Daily Note ---
PT Daily Note-Current Subjective Pt laying Supine in bed upon arrival. Pt agrees to PT. Pain Location: No Pain Reported Mental Status Patient Orientation: Person, Place, Situation Attachments: Colostomy/Ileostomy, Drains, Other-See Comments (Wound Vac.) Transfers SCALE: Activities may be completed with or without assistive devices. 0-Rjdelshfph-rzbalrx completes the activity by him/herself with no assistance from a helper. 5-Set-up or Clean-up Assistance-helper sets up or cleans up; patient completes activity. [place] assists only prior to or following the activity. 4-Supervision or Touching Assistance-helper provides verbal cues and/or touching/steadying and/or contact guard assistance as patient completes ac tivity. Assistance may be provided throughout the activity or intermittently. 3-Partial/Moderate Assistance-helper does LESS THAN HALF the effort. [place] lifts, holds or supports trunk or limbs, but provides less than half the effort. 2-Substantial/Maximal Assistance-helper does MORE THAN HALF the effort. [place] lifts or holds trunk or limbs and provides more than half the effort. 9-Pdswcgjon-wfuezh does ALL the effort. Patient does none of the effort to complete the activity. Or, the assistance of 2 or more helpers is required for the patient to complete the activity. If activity was not attempted, code reason: 7-Patient Refused. 9-Not Applicable-not attempted and the patient did not perform the activity before the current illness, exacerbation or injury. 10-Not Attempted due to Environmental Limitations-(lack of equipment, weather restraints, etc.). 88-Not Attempted due to Medical Conditions or Safety Concerns. Lying to Sitting/Side of Bed(Q: 5 Sit to Stand (QC): 4 Weight Bearing Full Weight Bearing Full Weight Bearing Gait Training Does the Patient Walk?: Yes Distance: 20' Walk 10 feet (QC): 4 Gait Persons Needed: 1 Gait Assistive Device: FWW Exercises Supine Ex: Ankle pumps, Quad Set, Glut sets, Heel Slides, Straight leg raise, Hip abd/add Supine Reps: 15 Treatments Pt completes Supine Ex in bed then asks to use BR at end of tx. All needs met, call light in hand. Assessment Current Status: Fair Progress Pt's mobility is improving although pt's safety awareness is not always adhered to. PT Short Term Goals Short Term Goals Time Frame: Dec 21, 2020 Roll Left & Right: 4 Sit to lyin Lying to sitting on side of be: 4 Sit to stand: 4 Chair/bla-ks-oxlfh transfer: 4 Toilet transfer: 4 Car transfer: 3 Walk 10 feet: 4 Walk 50 feet with two turns: 4 Walk 150 feet: 4 Walking 10ft on uneven surface: 4 1 step (curb): 4 Does pt use a wc or scooter: Yes Wheel 50ft w/2 turns: 4 Wheel 150 feet: 4 Type: Manual PT Sole Skiver Goals Sole Skiver Goals PT Sole Skiver Goals Time Frame: Jan 04, 2021 Roll Left & Right (QC): 6 Sit to Lying (QC): 6 Lying-Sitting on Side/Bed(QC): 6 Sit to Stand (QC): 6 Chair/Xim-eh-Oqnaz Xfer(QC): 6 Toilet Transfer (QC): 6 Car Transfer (QC): 5 Does the Patient Walk: Yes Walk 10 feet (QC): 6 Walk 50ft with 2 Turns (QC): 6 Walk 150 ft (QC): 5 Walking 10ft on Uneven Surface: 6 1 Step (curb) (QC): 5 4 Steps (QC): 5 12 Steps (QC): 4 Picking up an Object (QC): 4 Does the Pt use WC or Scooter?: Yes Wheel 50 feet with 2 turns (QC: 6 Type: Manual Wheel 150 feet: 6 Type: Manual PT Plan Problem List Problem List: Activity Tolerance, Safety Treatment/Plan Treatment Plan: Continue Plan of Care Treatment Plan: Bed Mobility, Concurrent Therapy, Functional Activity [place], Functional Strength, Group Therapy, Gait, Safety, Therapeutic Exercise, Transfers Treatment Duration: Jan 04, 2021 Frequency: At least 5 of 7 days/Wk (IRF) Estimated Hrs Per Day: 1.5 hours per day Patient and/or Family Agrees t: Yes Safety Risks/Education Patient Education: Correct Positioning, Safety Issues Teaching Recipient: Patient Teaching Methods: Discussion Response to Teaching: Verbalize Understanding Time/GCodes Time In: 1430 Time Out: 1500 Total Billed Treatment Time: 30 Total Billed Treatment 1, EX x2 (30m) PHILIPP CHAMBERS PTA Dec 17, 2020 15:28
[2020-12-17] MEDS: BETHANECHOL 10 MG (URECHOLINE) TAB PO SCH ×2 (16:20→21:49)
[2020-12-17] MEDS: TAMSULOSIN 0.4 MG (FLOMAX) CAP PO SCH (18:31)
[2020-12-17 18:44] VITALS: BP 112/70
[2020-12-17] MEDS: MELATONIN 3 MG TABLET PO PRN (21:48)
[2020-12-17] MEDS: ENOXAPARIN 40 MG/0.4 ML (LOVENOX) SYR SC SCH (21:49)
[2020-12-17] MEDS: HYDROcodone/APAP 7.5MG-325 MG/15 ML (LORTAB) UDC PO PRN (22:00)
[2020-12-18 05:20] VITALS: BP 119/56
[2020-12-18] MEDS: BETHANECHOL 10 MG (URECHOLINE) TAB PO SCH ×4 (06:41→21:36)
[2020-12-18] MEDS: SUCRALFATE 1 GM (CARAFATE) TAB PO SCH ×4 (06:41→21:36)
[2020-12-18] MEDS: PANTOPRAZOLE 40 MG (PROTONIX) TAB PO SCH ×2 (07:23→21:36)
[2020-12-18] MEDS: METOCLOPRAMIDE INJ 10 MG/2 ML (REGLAN) IVP SCH ×2 (07:23→21:36)
[2020-12-18] MEDS: NICOTINE PATCH REMOVAL TP SCH (07:23)
[2020-12-18] MEDS: meTOprolol TARTRATE 25 MG (LOPRESSOR) TABLET PO SCH ×2 (07:23→21:36)
[2020-12-18] MEDS: lisINopril 20 MG (PRINIVIL) TABLET PO SCH (07:23)
[2020-12-18] MEDS: amLODIPine 10 MG (NORVASC) TAB PO SCH (07:24)
[2020-12-18] MEDS: SODIUM CHLORIDE 1 GM TABLET PO SCH ×2 (07:24→21:37)
[2020-12-18] MEDS: SENNA W/DOCUSATE (SENOKOT S) TABLET PO SCH ×2 (07:24→21:44)
[2020-12-18] MEDS: DOCUSATE SODIUM 100 MG (COLACE) CAP PO SCH ×2 (07:24→21:44)
[2020-12-18] MEDS: polyethylene glycoL POWDER 17 GM (MIRALAX) PACK PO SCH ×2 (07:24→21:44)
[2020-12-18] MEDS: NICOTINE 14 MG (NICODERM) PATCH TD SCH (07:24)
--- NOTE | 2020-12-18 08:58 | Physical Therapy Daily Note ---
PT Daily Note-Current Subjective Pt laying Supine in bed upon arrival. Pt agrees to PT and will be joined with OT shortly. Pain Location: No Pain Reported Mental Status Patient Orientation: Person, Place, Situation Attachments: Colostomy/Ileostomy, Drains, Other-See Comments (Wound Vac.) Transfers SCALE: Activities may be completed with or without assistive devices. 8-Semvheymla-nxulzds completes the activity by him/herself with no assistance from a helper. 5-Set-up or Clean-up Assistance-helper sets up or cleans up; patient completes activity. [place] assists only prior to or following the activity. 4-Supervision or Touching Assistance-helper provides verbal cues and/or touching/steadying and/or contact guard assistance as patient completes activity. Assistance may be provided throughout the activity or intermittently. 3-Partial/Moderate Assistance-helper does LESS THAN HALF the effort. [place] lifts, holds or supports trunk or limbs, but provides less than half the effort. 2-Substantial/Maximal Assistance-helper does MORE THAN HALF the effort. [place] lifts or holds trunk or limbs and provides more than half the effort. 0-Pdflwmhky-sdmjkn does ALL the effort. Patient does none of the effort to complete the activity. Or, the assistance of 2 or more helpers is required for the patient to complete the activity. If activity was not attempted, code reason: 7-Patient Refused. 9-Not Applicable-not attempted and the patient did not perform the activity before the current illness, exacerbation or injury. 10-Not Attempted due to Environmental Limitations-(lack of equipment, weather restraints, etc.). 88-Not Attempted due to Medical Conditions or Safety Concerns. Lying to Sitting/Side of Bed(Q: 5 Sit to Stand (QC): 4 Weight Bearing Full Weight Bearing Full Weight Bearing Wheelchair Training Does the Pt Use a Wheelchair?: Yes Wheel 50 ft with 2 turns (QC): 5 Wheel 150 ft (QC): 5 Type of Wheelchair: Manual Exercises Seated Therapy Exercises: Ankle pumps, Long arc quads, Hip flexion, Kicking activity, Glut set Seated Reps: 15 Treatments Pt transferred to EOB and completed Seated EX. Pt donning clothes as OT arrives. Pt will continue with OT as FRONT WORKER departs and PT arrives. Assessment Current Status: Good Progress Pt needs encouragement that she can perform task instead of feeling dependent on therapist for assistance. PT Short Term Goals Short Term Goals Time Frame: Dec 21, 2020 Roll Left & Right: 4 Sit to lyin Lying to sitting on side of be: 4 Sit to stand: 4 Chair/sbw-jz-ziuyy transfer: 4 Toilet transfer: 4 Car transfer: 3 Walk 10 feet: 4 Walk 50 feet with two turns: 4 Walk 150 feet: 4 Walking 10ft on uneven surface: 4 1 step (curb): 4 Does pt use a wc or scooter: Yes Wheel 50ft w/2 turns: 4 Wheel 150 feet: 4 Type: Manual PT Commercial Kitchen Service Technician Goals Commercial Kitchen Service Technician Goals PT Commercial Kitchen Service Technician Goals Time Frame: Jan 04, 2021 Roll Left & Right (QC): 6 Sit to Lying (QC): 6 Lying-Sitting on Side/Bed(QC): 6 Sit to Stand (QC): 6 Chair/Pyk-ok-Bhvns Xfer(QC): 6 Toilet Transfer (QC): 6 Car Transfer (QC): 5 Does the Patient Walk: Yes Walk 10 feet (QC): 6 Walk 50ft with 2 Turns (QC): 6 Walk 150 ft (QC): 5 Walking 10ft on Uneven Surface: 6 1 Step (curb) (QC): 5 4 Steps (QC): 5 12 Steps (QC): 4 Picking up an Object (QC): 4 Does the Pt use WC or Scooter?: Yes Wheel 50 feet with 2 turns (QC: 6 Type: Manual Wheel 150 feet: 6 Type: Manual PT Plan Problem List Problem List: Activity Tolerance Treatment/Plan Treatment Plan: Continue Plan of Care Treatment Plan: Bed Mobility, Concurrent Therapy, Functional Activity [place], Functional Strength, Group Therapy, Gait, Safety, Therapeutic Exercise, Transfers Treatment Duration: Jan 04, 2021 Frequency: At least 5 of 7 days/Wk (IRF) Estimated Hrs Per Day: 1.5 hours per day Patient and/or Family Agrees t: Yes Time/GCodes Time In: 800 Time Out: 830 Total Billed Treatment Time: 30 Total Billed Treatment 1, EX (20m) & FA (10m) REYESPHILIPP FRONT WORKER Dec 18, 2020 08:58
[2020-12-18] MEDS: HYDROcodone/APAP 7.5MG-325 MG/15 ML (LORTAB) UDC PO PRN ×3 (09:24→21:37)
--- NOTE | 2020-12-18 09:33 | Physical Therapy Daily Note ---
PT Daily Note-Current Subjective Pt agreeable to PT. Towards end of treatment time, patient asks, "Are we done yet?" Pt is cooperative and willing to work. Reports she does feel she is making functional gains and her endurance is progressing. Reports she feels it has been beneficial to walk to / from the bathroom during the day, in regards to in creasing endurance. Mental Status Patient Orientation: Person, Place, Time, Situation Attachments: Drains, Other-See Comments (wound vac) Transfers SCALE: Activities may be completed with or without assistive devices. 5-Gwvnbiubze-gvpazpa completes the activity by him/herself with no assistance from a helper. 5-Set-up or Clean-up Assistance-helper sets up or cleans up; patient completes activity. [place] assists only prior to or following the activity. 4-Supervision or Touching Assistance-helper provides verbal cues and/or touching/steadying and/or contact guard assistance as patient completes activity. Assistance may be provided throughout the activity or intermittently. 3-Partial/Moderate Assistance-helper does LESS THAN HALF the effort. [place] lifts, holds or supports trunk or limbs, but provides less than half the effort. 2-Substantial/Maximal Assistance-helper does MORE THAN HALF the effort. [place] lifts or holds trunk or limbs and provides more than half the effort. 3-Zxonddhkx-qxjejs does ALL the effort. Patient does none of the effort to complete the activity. Or, the assistance of 2 or more helpers is required for the patient to complete the activity. If activity was not attempted, code reason: 7-Patient Refused. 9-Not Applicable-not attempted and the patient did not perform the activity before the current illness, exacerbation or injury. 10-Not Attempted due to Environmental Limitations-(lack of equipment, weather restraints, etc.). 88-Not Attempted due to Medical Conditions or Safety Concerns. Sit to Lying (QC): 4 Sit to Stand (QC): 3 (CGA with safety with intermittent cues for hand placmeent and reminders to set her wheelchair brakes. ) Chair/Tig-da-Hsabb Xfer(QC): 3 Toilet Transfer (QC): 3 Weight Bearing Full Weight Bearing Full Weight Bearing Gait Training Does the Patient Walk?: Yes Walk 10 feet (QC): 3 (CGA) Gait Assistive Device: FWW 32, 42 and 34 feet respectively with WC behind with CGA; slow gait with slightly decreased step length and forward flexed at hips. Wheelchair Training Does the Pt Use a Wheelchair?: Yes Wheel 50 ft with 2 turns (QC): 4 (cues for safety and obstacle avoidance and through doorways. ) Type of Wheelchair: Manual Balance Special Test Comments Seated balance activities focus on trunk control and stabilization with feet unsupported as OT addressed reaching with UE. SBA for seated balance during the activity with cues to sequence Treatments Co treat with OT due to the heavy need for cues, assist with UE and LE sequencing as well as coordination of both to safely complete tasks. Pt performed gait, wc mobiltiy, functional transfers as well as balance/neuro tr aining. Pt interacted with OT and PT regarding problem solving for transfer techniques at home as well as safety in her home with focus on her doing more for herself. Discussed height of her bed at home (29") and she does not think it can be lowered enough. Discussed possibility of [id number] for pt to assist with getting into bed and provided pictures for her to review. Skill of 2 clinicians indicated due to complexity of this patient. Assessment Current Status: Good Progress Pt is iincreasing gait distance and functional activity tolerance. Demonstrates improved initiation task as well. Pt remains with limited functional activity tolerance and as she tires, has more difficulty with transfers and gait. PT Short Term Goals Short Term Goals Time Frame: Dec 21, 2020 Roll Left & Right: 4 Sit to lyin Lying to sitting on side of be: 4 Sit to stand: 4 Chair/ecu-wg-wvmql transfer: 4 Toilet transfer: 4 Car transfer: 3 Walk 10 feet: 4 Walk 50 feet with two turns: 4 Walk 150 feet: 4 Walking 10ft on uneven surface: 4 1 step (curb): 4 Does pt use a wc or scooter: Yes Wheel 50ft w/2 turns: 4 Wheel 150 feet: 4 Type: Manual PT Custodial Goals Custodial Goals PT Model Builder Goals Time Frame: Jan 04, 2021 Roll Left & Right (QC): 6 Sit to Lying (QC): 6 Lying-Sitting on Side/Bed(QC): 6 Sit to Stand (QC): 6 Chair/Sgy-rg-Xpxmi Xfer(QC): 6 Toilet Transfer (QC): 6 Car Transfer (QC): 5 Does the Patient Walk: Yes Walk 10 feet (QC): 6 Walk 50ft with 2 Turns (QC): 6 Walk 150 ft (QC): 5 Walking 10ft on Uneven Surface: 6 1 Step (curb) (QC): 5 4 Steps (QC): 5 12 Steps (QC): 4 Picking up an Object (QC): 4 Does the Pt use WC or Scooter?: Yes Wheel 50 feet with 2 turns (QC: 6 Type: Manual Wheel 150 feet: 6 Type: Manual PT Plan Problem List Problem List: Activity Tolerance, Functional Strength, Safety, Balance, Gait, Transfer, Bed Mobility Treatment/Plan Treatment Plan: Continue Plan of Care Treatment Plan: Bed Mobility, Concurrent Therapy, Functional Activity [place], Functional Strength, Group Therapy, Gait, Safety, Therapeutic Exercise, Transfers Treatment Duration: Jan 04, 2021 Frequency: At least 5 of 7 days/Wk (IRF) Estimated Hrs Per Day: 1.5 hours per day Patient and/or Family Agrees t: Yes Safety Risks/Education Patient Education: Gait Training, Transfer Techniques, Safety Issues Teaching Recipient: Patient Teaching Methods: Demonstration, Discussion Response to Teaching: Reinforcement Needed Discharge Recommendations Therapy Discharge Recommendati: Post Acute PT ([facility] PT) Time/GCodes Time In: 830 Time Out: 925 Total Billed Treatment Time: 55 Total Billed Treatment visit GT 15 WC 15 FA 15 NM 10 RAIZA TAM PT Dec 18, 2020 09:33
--- NOTE | 2020-12-18 11:52 | Occupational Ther Daily Note ---
OT Current Status-Daily Note Subjective No pain reported, just fatigue. Appearance Pt. up on side of bed with PT when OT came in room. Alert and oriented. Mental Status/Objective Patient Orientation: Person, Place, Time, Situation Attachments: Colostomy/Ileostomy, Drains ADL-Treatment Therapy Code Descriptions/Definitions Functional [place] Measure: 0=Not Assessed/NA 4=Minimal Assistance 1=Total Assistance 5=Supervision or Setup 2=Maximal Assistance 6=Modified [place] 3=Moderate Assistance 7=Complete IndependenceSCALE: Activities may be completed with or without assistive devices. 4-Avyzxkqanl-ycmgcgo completes the activity by him/herself with no assistance from a helper. 5-Set-up or Clean-up Assistance-helper sets up or cleans up; patient completes activity. [place] assists only prior to or following the activity. 4-Supervision or Touching Assistance-helper provides verbal cues and/or touching/steadying and/or contact guard assistance as patient completes activity. Assistance may be provided throughout the activity or intermittently. 3-Partial/Moderate Assistance-helper does LESS THAN HALF the effort. [place] lifts, holds or supports trunk or limbs, but provides less than half the effort. 2-Substantial/Maximal Assistance-helper does MORE THAN HALF the effort. [place] lifts or holds trunk or limbs and provides more than half the effort. 0-Iazqkogjl-ecqlhf does ALL the effort. Patient does none of the effort to complete the activity. Or, the assistance of 2 or more helpers is required for the patient to complete the activity. If activity was not attempted, code reason: 7-Patient Refused. 9-Not Applicable-not attempted and the patient did not perform the activity before the current illness, exacerbation or injury. 10-Not Attempted due to Environmental Limitations-(lack of equipment, weather restraints, etc.). 88-Not Attempted due to Medical Conditions or Safety Concerns. Eating (QC): 6 Upper Body Dressing (QC): 5 Toileting Hygiene (QC): 4 (CGA) Toilet Transfer (QC): 4 Other Treatment Pt. seen this date for co-treatment with PT due to fatigue, decreased endurance, and activity tolerance. Pt. requires multiple rest breaks and cues for encouragement and to attempt more. OT facilitated ADL skills, UE reach, and home needs. PT focused on transfers and mobility. Pt. stood with CGA at walker and ambulated 3 times with CGA. 32 ft, 42 ft, and then 32 ft. Pt. requires max rest breaks in between each walk. Pt's sister sent pt. measurement of bed height. It is 29 inches from floor. This was simulated in gym. Pt. unable to transfer to into bed. Pt. educated and shown special step to use that would allow transfer into bed. Pt. verbalizes understanding. Worked on seated weight shifts and reaching in multiple planes. Pt. tolerated this well. Transferred back to bed with SBA. Pt. encouraged to pull her own blankets up onto her legs. Pt. also verbalizes that she would like life alert. This was conveyed to social work. All needs met. Education OT Patient Education: Correct positioning, Modified ADL techniques, Progress toward Goal/Update tx plan, Purpose of tx/functional activities, Reviewed precautions, Rehab process, Transfer techniques Teaching Recipient: Patient Teaching Methods: Demonstration, Discussion Response to Teaching: Verbalize Understanding, Return Demonstration OT Short Term Goals Short Term Goals Time Frame: Dec 23, 2020 Eatin Oral hygiene: 4 Toileting hygiene: 3 Shower/bathe self: 3 Upper body dressin Lower body dressin Putting on/taking off footwear: 3 OT Loan Auditor Goals Loan Auditor Goals Time Frame: Jan 06, 2021 Eating (QC): 6 Oral Hygiene (QC): 6 Toileting Hygiene (QC): 4 Shower/Bathe Self (QC): 4 Upper Body Dressing (QC): 5 Lower Body Dressing (QC): 4 On/Off Footwear (QC): 4 Additional Goals: 1-Demonstrate ADL Tasks, 2-Verbalize Understanding, 3-ImproveStrength/[place] 1=Demonstrate adherence to instructed precautions during ADL tasks. 2=Patient will verbalize/demonstrate understanding of assistive devices/modifications for ADL. 3=Patient will improve strength/tolerance for activity to enable patient to perform ADL's. OT Education/Plan Problem List/Assessment Assessment: Decreased Activ Tolerance, Decreased UE Strength, Dependent Transfers, Impaired I ADL's, Impaired Self-Care Skills Discharge Recommendations Plan/Recommendations: Continue POC Therapy Discharge Recommendati: Post Acute OT Treatment Plan/Plan of Care Treatment,Training & Education: Yes Patient would benefit from OT for education, treatment and training to promote independence in ADL's, mobility, safety and/or upper extremity function for ADL's. Plan of Care: ADL Retraining, Concurrent Therapy, Functional Mobility, W/C Management Training Treatment Duration: Dec 09, 2020 Frequency: At least 5 of 7 days/Wk (IRF) Estimated Hrs Per Day: 1.5 hours per day Agreement: Yes Rehab Potential: Fair Time/GCodes Start Time: 08:15 Stop Time: 09:25 Total Time Billed (hr/min): 70 Billed Treatment Time 1, ADL x 15minutes, FA x 55minutes Co-treatment with PT. Please see above note for designated roles. KOKI STOKES OT Dec 18, 2020 11:52
--- NOTE | 2020-12-18 11:58 | PM&R Progress Note ---
Subjective HPI/CC On Admission Date Seen by Provider: Dec 18, 2020 Time Seen by Provider: 11:10 Subjective/Events-last exam 12/18/20: Pt doing very well Very much improved Family training will be started Ostomy has 500cc output 12/17/20: Urecholine started by Dr. Wright and Pt denies any significant new issues Pain is well controlled Improved 12/16/20: Ileostomy put out 800cc Hgb 8.4 Iron level will be ordered Sodium level 130 so will DC fluid restriction Overall much improved 12/15/20: Patient doing well Sleeps a lot Pain is improved Dr Wright managing retention 12/14/20: Flomax started Dr Wright ordered in/out caths prn Patient is doing better No falls Pain is controlled Wound vac in place 12/13/20: Voiding is an issue Retention requiring in/out cath Dr Wright appreciated Checked meds and labs 12/12/20: Patient doing well Ambulated in front of me with assistance No pain reported No new issues Fluid restriction noted 12/11/20: Patient doing well Sodium level 129 No pain reported Fluid restriction maintained Ileostomy bag no leak Wound vac still in place 12/10/20: Participation with therapy good just slow Parallel bars but could not stand Fluid restriction maintained 12/09/20: Patient feels good Hgb 9.0 Sodium 127 2 person assist still Output 600 in ileostomy Lovenox maintained 12/08/20: Patient feels good and feels stronger Hgb 8.9 Sodium level 127 Ileostomy functioning well but bag keep leaking Gluteus cleft stage 2 decubitus ulcer Review of Systems General: Fatigue, Malaise Pulmonary: Dyspnea Neurological: Weakness Objective Exam Vital Signs Vital Signs Date Time Temp Pulse Resp B/P (MAP) Pulse Ox O2 Delivery O2 Flow Rate FiO2 12/19/20 05:32 36.8 90 20 120/56 (77) 94 Room Air 12/14/20 18:04 92.00 12/14/20 09:00 9 Capillary Refill : General Appearance: No Apparent Distress, WD/WN, Chronically ill HEENT: PERRL/EOMI, Normal ENT Inspection, Pharynx Normal, Other ([place] severe) Neck: Normal Inspection, Supple Respiratory: Normal Breath Sounds, No Accessory Muscle Use, No Respiratory Distress Cardiovascular: Regular Rate, Rhythm, No Edema Gastrointestinal: Normal Bowel Sounds, No Organomegaly, No Pulsatile Mass, Non Tender, Soft, Other (ileostomy) Back: Normal Inspection, No CVA Tenderness, No Vertebral Tenderness Extremity: Normal Inspection, Normal Range of Motion Neurologic/Psychiatric: Alert, Oriented x3, No Motor/Sensory Deficits, Normal Mood/Affect, special education curriculum specialist II-XII Norm as Tested, Motor Weakness (3/5 all extremities) Skin: Normal Color, Warm/Dry, Other (Mild like abdominal incision C/D/I with wound vac in place. No surrounding redness. Left upper LANE drain with minimal Clear ss to serous drainage.) Lymphatic: No Adenopathy Results/Procedures Lab Patient resulted labs reviewed. FIM Transfers Therapy Code Descriptions/Definitions Functional [place] Measure: 0=Not Assessed/NA 4=Minimal Assistance 1=Total Assistance 5=Supervision or Setup 2=Maximal Assistance 6=Modified [place] 3=Moderate Assistance 7=Complete IndependenceSCALE: Activities may be completed with or without assistive devices. 6-Faupfbnfuz-sslwnhv completes the activity by him/herself with no assistance from a helper. 5-Set-up or Clean-up Assistance-helper sets up or cleans up; patient completes activity. [place] assists only prior to or following the activity. 4-Supervision or Touching Assistance-helper provides verbal cues and/or touching/steadying and/or contact guard assistance as patient completes act ivity. Assistance may be provided throughout the activity or intermittently. 3-Partial/Moderate Assistance-helper does LESS THAN HALF the effort. [place] lifts, holds or supports trunk or limbs, but provides less than half the effort. 2-Substantial/Maximal Assistance-helper does MORE THAN HALF the effort. [place] lifts or holds trunk or limbs and provides more than half the effort. 8-Mjzugifir-svaeax does ALL the effort. Patient does none of the effort to complete the activity. Or, the assistance of 2 or more helpers is required for the patient to complete the activity. If activity was not attempted, code reason: 7-Patient Refused. 9-Not Applicable-not attempted and the patient did not perform the activity before the current illness, exacerbation or injury. 10-Not Attempted due to Environmental Limitations-(lack of equipment, weather restraints, etc.). 88-Not Attempted due to Medical Conditions or Safety Concerns. Roll Left to Right (QC): 6 Sit to Lying (QC): 4 Sit to Stand (QC): 3 (CGA with safety with intermittent cues for hand placmeent and reminders to set her wheelchair brakes. ) Chair/Ppt-jv-Vhjck Xfer(QC): 3 Car Transfer (QC): 88 Gait Training Does the Patient Walk?: Yes Distance: 20' Walk 10 feet (QC): 3 (CGA) Walk 50 ft with 2 Turns(QC): 88 Walk 150 ft (QC): 88 Walking 10ft/uneven surface-QC: 88 Gait Persons Needed: 1 Gait Assistive Device: FWW Wheelchair Training Does the Pt Use a Wheelchair?: Yes Wheel 50 ft with 2 turns (QC): 4 (cues for safety and obstacle avoidance and through doorways. ) Wheel 150 ft (QC): 5 Type of Wheelchair: Manual Stair Training #of Steps: 0 1 Step (curb) (QC): 88 4 Steps (QC): 88 12 Steps (QC): 88 Balance Picking up an Object (QC): 88 ADL-Treatment Eating (QC): 5 Oral Hygiene (QC): 7 Shower/Bathe Self (QC): 3 (Min assist in shower to cleanse rear red area in stance. Pt. utilized LH sponge for LE.) Upper Body Dressing (QC): 2 (Pt. able to thread one arm, but requires assistance to bring around her back and thread left arm. Pt. attempts to snap her shirt, but requires assistance.) Lower Body Dressing (QC): 7 On/Off Footwear (QC): 3 (Mod assist with sock aide.) Toileting Hygiene (QC): 3 (Pt. 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 Urinary retention 12/13/20 Plan: IRF protocol Monitor pain O2 Nebs IS Lovenox 12/08/20: Xanax ordered Ileostomy functioning well but bag leaking Decubitus ulcer management 12/09/20: Monitor fluid restriction Salt tablets Monitor pain Ileostomy function monitoring 12/10/20: Salt tablets Fluid restriction Monitor closely Intensive therapy 12/11/20: Continue fluid restriction Salt tablets Monitor pain 12/12/20: Ambulating well today Fantastic progress 12/13/20: Urinary retention Dr Wright Monitor closely 12/14/20: Flomax started Dr Wright appreciated Pain control 12/15/20: Improved Retention per Dr Wright Wound vac 12/16/20: In/Out cath Monitor pain Monitor for UTI 12/17/20: Urecholine In/Out cath Monitor closely 12/18/20: Family training Impressive function (1) Myopathy (2) Ileus following gastrointestinal surgery (3) S/P right hemicolectomy (4) Presbycusis of both ears (5) Ileostomy in place (6) Anemia due to acute blood loss (7) Colon cancer (8) Hyponatremia (9) COPD (chronic obstructive pulmonary disease) (10) DVT prophylaxis WILFREDO MARTÍNEZ DO Dec 18, 2020 11:58
--- NOTE | 2020-12-18 13:28 | Speech Therapy Daily Note ---
Speech Daily Progress Note Subjective Date Seen by Provider: Dec 18, 2020 Time Seen by Provider: 00:30 Patient was resting in her bed and Dr. Lynch was just leaving her room from follow up. Objective Patient completed a series of problem solving scenarios she may encounter upon her return home with 90% accuracy given minimal cues. Assessment Assessment Current Status: Good Progress Treatment Plan Continue Plan of Care Speech Short Term Goals Short Term Goals Short Term Goals 1) Patient will complete memory tasks related to her daily needs with minimal cues at 80% or greater. 2) Patient will complete safety awareness tasks related to her daily needs with minimal cues at 80% or greater. 3) Patient will complete problem solving tasks related to her daily needs with minimal cues at 80% or greater. Speech Usp Goals Usp Goals Patient will improve cognitive-communication necessary for safety and daily living tasks with minimal assist. Speech-Plan Patient/Family Goals Patient/Family Goals: Patient plans on returning to her home upon discharge. She lives with her sister who will assist on occasion. Treatment Plan Speech Therapy Treatment Plan: Continue Plan of Care Treatment Duration: Dec 20, 2020 Frequency: 4 times per week (Patient will receive skilled ST 4-5x per week) Estimated Hrs Per Day: .5 hour per day Rehab Potential: Fair Barriers to Learning: Patient's recent lengthy illness, however her cognitive function is steadily improving. Pt/Family Agrees to Plan: Yes Safety Risks/Education Teaching Recipient: Patient Teaching Methods: Demonstration, Discussion Response to Teaching: Verbalize Understanding, Return Demonstration Education Topics Provided: Continued safety within her room as well as upon her return home Time Speech Therapy Time In: 10:00 Speech Therapy Time Out: 10:30 Total Billed Time: 30 Billed Treatment Time 1LOC [facility] Dec 18, 2020 13:28
[2020-12-18] MEDS: TRELEGY ELLIPTA IH SCH (14:30)
--- NOTE | 2020-12-18 15:12 | Progress Note ---
Subjective Date Seen by a Provider: Dec 18, 2020 Time Seen by a Provider: 10:00 Subjective/Events-last exam doing well. tolerating regular diet. improving daily with therapy. Objective Exam Vital Signs Date Time Temp Pulse Resp B/P (MAP) Pulse Ox O2 Delivery O2 Flow Rate FiO2 12/18/20 09:00 92 Room Air 12/18/20 05:20 36.6 86 20 119/56 (77) 92 Room Air 12/17/20 21:50 92 Room Air 12/17/20 18:44 36.8 89 20 112/70 (84) 92 Room Air I & O 12/18/20 07:00 Intake Total 1907 ml Output Total 2390 ml Balance -483 ml Capillary Refill : General Appearance: No Apparent Distress HEENT: PERRL/EOMI Neck: Full Range of Motion Respiratory: Chest Non Tender, Wheezing Cardiovascular: Regular Rate, Rhythm Gastrointestinal: normal bowel sounds, non tender, soft Extremity: Normal Capillary Refill Neurologic/Psychiatric: Alert, Oriented x3 Skin: Normal Color Lymphatic: No Adenopathy Assessment/Plan Assessment/Plan Assess & Plan/Chief Complaint transverse colonic ca s/p extended RHC, end ileostomy and mucous fistula, fascial dehiscence and fascial closure with biologic mesh. continue wound vac for secondary closure. cont rehab MICHAEL XIONG MD Dec 18, 2020 15:12
[2020-12-18 17:09] VITALS: BP 120/54
[2020-12-18] MEDS: TAMSULOSIN 0.4 MG (FLOMAX) CAP PO SCH (17:29)
[2020-12-18] MEDS: MELATONIN 3 MG TABLET PO PRN (21:36)
[2020-12-18] MEDS: ENOXAPARIN 40 MG/0.4 ML (LOVENOX) SYR SC SCH (21:37)
[2020-12-18 21:45] VITALS: BP 124/60
[2020-12-19 05:32] VITALS: BP 120/56
[2020-12-19] MEDS: BETHANECHOL 10 MG (URECHOLINE) TAB PO SCH ×4 (06:31→20:56)
[2020-12-19] MEDS: SUCRALFATE 1 GM (CARAFATE) TAB PO SCH ×4 (06:31→20:57)
[2020-12-19] MEDS: TRELEGY ELLIPTA IH SCH (07:19)
[2020-12-19] MEDS: meTOprolol TARTRATE 25 MG (LOPRESSOR) TABLET PO SCH ×2 (09:53→20:57)
[2020-12-19] MEDS: PANTOPRAZOLE 40 MG (PROTONIX) TAB PO SCH ×2 (09:53→20:57)
[2020-12-19] MEDS: amLODIPine 10 MG (NORVASC) TAB PO SCH (09:53)
[2020-12-19] MEDS: NICOTINE 14 MG (NICODERM) PATCH TD SCH (09:53)
[2020-12-19] MEDS: METOCLOPRAMIDE INJ 10 MG/2 ML (REGLAN) IVP SCH (09:53)
[2020-12-19] MEDS: lisINopril 20 MG (PRINIVIL) TABLET PO SCH (09:53)
[2020-12-19] MEDS: DOCUSATE SODIUM 100 MG (COLACE) CAP PO SCH ×2 (09:54→20:58)
[2020-12-19] MEDS: SENNA W/DOCUSATE (SENOKOT S) TABLET PO SCH ×2 (09:54→20:59)
[2020-12-19] MEDS: polyethylene glycoL POWDER 17 GM (MIRALAX) PACK PO SCH ×2 (09:54→20:58)
[2020-12-19] MEDS: NICOTINE PATCH REMOVAL TP SCH (09:54)
--- NOTE | 2020-12-19 10:22 | Physical Therapy Daily Note ---
PT Daily Note-Current Subjective Pt sitting in [facility] in Therapy Gym working with OT upon arrival. Pt agrees to PT. Pain Numeric Pain Scale: 9 Location: Right, Left Pain Description: Ache Comment: Reports achy in B LE ligia. after walking. Mental Status Patient Orientation: Person, Confused, Place Attachments: Colostomy/Ileostomy, Drains, Other-See Comments (Wound Vac.) Transfers SCALE: Activities may be completed with or without assistive devices. 1-Fvrflbabnb-subccfl completes the activity by him/herself with no assistance from a helper. 5-Set-up or Clean-up Assistance-helper sets up or cleans up; patient completes activity. [place] assists only prior to or following the activity. 4-Supervision or Touching Assistance-helper provides verbal cues and/or touching/steadying and/or contact guard assistance as patient completes activity. Assistance may be provided throughout the activity or intermittently. 3-Partial/Moderate Assistance-helper does LESS THAN HALF the effort. [place] lifts, holds or supports trunk or limbs, but provides less than half the effort. 2-Substantial/Maximal Assistance-helper does MORE THAN HALF the effort. [place] lifts or holds trunk or limbs and provides more than half the effort. 5-Zcromuzrn-nxvuly does ALL the effort. Patient does none of the effort to complete the activity. Or, the assistance of 2 or more helpers is required for the patient to complete the activity. If activity was not attempted, code reason: 7-Patient Refused. 9-Not Applicable-not attempted and the patient did not perform the activity before the current illness, exacerbation or injury. 10-Not Attempted due to Environmental Limitations-(lack of equipment, weather restraints, etc.). 88-Not Attempted due to Medical Conditions or Safety Concerns. Sit to Lying (QC): 5 Sit to Stand (QC): 4 Toilet Transfer (QC): 4 Weight Bearing Full Weight Bearing Full Weight Bearing Gait Training Does the Patient Walk?: Yes Distance: 32', 45' Walk 10 feet (QC): 4 Gait Persons Needed: 1 Gait Assistive Device: FWW Wheelchair Training Does the Pt Use a Wheelchair?: Yes Type of Wheelchair: Manual Treatments PT comes to assist with co-treatment, to assist with low endurance during functional ambulation. PT guides pt. with CGA while OT follows with wound vac and wheelchair. Pt. ambulated another 32 feet with CGA and walker, but declines ambulating any further.Pt takes RB then agrees to amb again. Amb again to BR in room (45'). After finishing in BR, pt asks to return to bed. PAPER [employer]E DRYING MACHINE OPERATOR states still have more Therapy to complete. Agreed to rest EOB. Indepth discussion on needing to push self for continued progress for possible DC next Wednesday (12/25). Discussed setting a Sitting schedule (1hr/3xday) to increase activity tolerance and increase normalized behavior. Pt resting in bed, getting morning medication at end of tx. Assessment Current Status: Fair Progress Pt is nervous about pushing self as LE is weak. PAPER CONE DRYING MACHINE OPERATOR encouraged working harder to increase activity tolerance and strength. PT Short Term Goals Short Term Goals Time Frame: Dec 21, 2020 Roll Left & Right: 4 Sit to lyin Lying to sitting on side of be: 4 Sit to stand: 4 Chair/lmb-ep-amyjo transfer: 4 Toilet transfer: 4 Car transfer: 3 Walk 10 feet: 4 Walk 50 feet with two turns: 4 Walk 150 feet: 4 Walking 10ft on uneven surface: 4 1 step (curb): 4 Does pt use a wc or scooter: Yes Wheel 50ft w/2 turns: 4 Wheel 150 feet: 4 Type: Manual PT Senior Living Goals Records Management Director Goals PT Records Management Director Goals Time Frame: Jan 04, 2021 Roll Left & Right (QC): 6 Sit to Lying (QC): 6 Lying-Sitting on Side/Bed(QC): 6 Sit to Stand (QC): 6 Chair/Lpc-ar-Khthe Xfer(QC): 6 Toilet Transfer (QC): 6 Car Transfer (QC): 5 Does the Patient Walk: Yes Walk 10 feet (QC): 6 Walk 50ft with 2 Turns (QC): 6 Walk 150 ft (QC): 5 Walking 10ft on Uneven Surface: 6 1 Step (curb) (QC): 5 4 Steps (QC): 5 12 Steps (QC): 4 Picking up an Object (QC): 4 Does the Pt use WC or Scooter?: Yes Wheel 50 feet with 2 turns (QC: 6 Type: Manual Wheel 150 feet: 6 Type: Manual PT Plan Problem List Problem List: Activity Tolerance, Functional Strength, Safety, Gait Treatment/Plan Treatment Plan: Continue Plan of Care Treatment Plan: Bed Mobility, Concurrent Therapy, Functional Activity [place], Functional Strength, Group Therapy, Gait, Safety, Therapeutic Exercise, Transfers Treatment Duration: Jan 04, 2021 Frequency: At least 5 of 7 days/Wk (IRF) Estimated Hrs Per Day: 1.5 hours per day Patient and/or Family Agrees t: Yes Safety Risks/Education Patient Education: Gait Training, Correct Positioning, Disease Process, Safety Issues Teaching Recipient: Patient Teaching Methods: Discussion Response to Teaching: Reinforcement Needed Time/GCodes Time In: 915 Time Out: 1015 Total Billed Treatment Time: 60 Total Billed Treatment 1, GT (20m) & FA x3 (40m) Co-treat w/OT from 915-930 (15m) PHILIPP [facility] PAPER CONE DRYING MACHINE OPERATOR Dec 19, 2020 10:22
[2020-12-19] MEDS: SODIUM CHLORIDE 1 GM TABLET PO SCH ×2 (10:47→20:57)
--- NOTE | 2020-12-19 11:09 | Occupational Ther Daily Note ---
OT Current Status-Daily Note Subjective No pain reported. Appearance Pt. in bed. Alert. Agrees to work with OT. Mental Status/Objective Patient Orientation: Person, Place, Time, Situation ADL-Treatment Therapy Code Descriptions/Definitions Functional [place] Measure: 0=Not Assessed/NA 4=Minimal Assistance 1=Total Assistance 5=Supervision or Setup 2=Maximal Assistance 6=Modified [place] 3=Moderate Assistance 7=Complete IndependenceSCALE: Activities may be completed with or without assistive devices. 2-Vonetmyych-hnfveyh completes the activity by him/herself with no assistance from a helper. 5-Set-up or Clean-up Assistance-helper sets up or cleans up; patient completes activity. [place] assists only prior to or following the activity. 4-Supervision or Touching Assistance-helper provides verbal cues and/or touching/steadying and/or contact guard assistance as patient completes activity. Assistance may be provided throughout the activity or intermittently. 3-Partial/Moderate Assistance-helper does LESS THAN HALF the effort. [place] lifts, holds or supports trunk or limbs, but provides less than half the effort. 2-Substantial/Maximal Assistance-helper does MORE THAN HALF the effort. [place] lifts or holds trunk or limbs and provides more than half the effort. 9-Assgawuxz-ourlcx does ALL the effort. Patient does none of the effort to complete the activity. Or, the assistance of 2 or more helpers is required for the patient to complete the activity. If activity was not attempted, code reason: 7-Patient Refused. 9-Not Applicable-not attempted and the patient did not perform the activity before the current illness, exacerbation or injury. 10-Not Attempted due to Environmental Limitations-(lack of equipment, weather restraints, etc.). 88-Not Attempted due to Medical Conditions or Safety Concerns. Oral Hygiene (QC): 5 (Set up seated at sink in wheelchair.) Upper Body Dressing (QC): 4 (SBA to don gown from home over head.) Lower Body Dressing (QC): 7 Toileting Hygiene (QC): 4 Toilet Transfer (QC): 4 (CGA) Pt. and OT talk before treatment. Pt. states that she knows she needs to "kick it into gear" because she is going home possibly next week. OT and pt. talk about how important it is for pt. to sit up for longer periods of time, and to work through all of session before insisting on going back to bed. Pt. states that she knows this and is very agreeable to this, as she wants to gain strength. Pt. transfers to side of bed with SBA. Declines bathing, stating that it will make her cold. Pt. dons fresh house gown, and is able to stand with CGA at walker and ambulate to wheelchair, approximately 10 feet with CGA. Pt. self propels into bathroom and brushes teeth while seated at sink. After this, pt. is taken to hallway and ambulates, as this is her goal for the day. Pt. is able to ambulate with CGA with walker, approximately 32 feet. Pt. is encouraged to go further, but is unable to do so. OT monitors sats as pt. seems SOA. Sats at 97% throughout treatment on RA. Pt. taken to therapy gym and dons 1 lb. wrist weights. Completes reaching activity for therapy pegs, alternating pattern with UE and working on overall endurance. Pt. requires rest breaks throughout treatment. PT comes to assist with co-treatment, to assist with low endurance during functional ambulation. PT guides pt. with CGA while OT follows with wound vac and wheelchair. Pt. ambulated another 32 feet with CGA and walker, but declines ambulating any further. Pt. is left with PT. All needs met. Education OT Patient Education: Correct positioning, Modified ADL techniques, Progress toward Goal/Update tx plan, Purpose of tx/functional activities, Reviewed precautions, Rehab process, Transfer techniques Teaching Recipient: Patient Teaching Methods: Demonstration, Discussion Response to Teaching: Verbalize Understanding, Return Demonstration OT Short Term Goals Short Term Goals Time Frame: Dec 23, 2020 Eatin Oral hygiene: 4 Toileting hygiene: 3 Shower/bathe self: 3 Upper body dressin Lower body dressin Putting on/taking off footwear: 3 OT Manager Telemetry Goals Manager Telemetry Goals Time Frame: Jan 06, 2021 Eating (QC): 6 Oral Hygiene (QC): 6 Toileting Hygiene (QC): 4 Shower/Bathe Self (QC): 4 Upper Body Dressing (QC): 5 Lower Body Dressing (QC): 4 On/Off Footwear (QC): 4 Additional Goals: 1-Demonstrate ADL Tasks, 2-Verbalize Understanding, 3-ImproveStrength/[place] 1=Demonstrate adherence to instructed precautions during ADL tasks. 2=Patient will verbalize/demonstrate understanding of assistive devices/modifications for ADL. 3=Patient will improve strength/tolerance for activity to enable patient to perf orm ADL's. OT Education/Plan Problem List/Assessment Assessment: Decreased Activ Tolerance, Impaired I ADL's, Impaired Self-Care Skills Discharge Recommendations Plan/Recommendations: Continue POC Therapy Discharge Recommendati: Scheduled Assistance, Home & Family, Post Acute OT Treatment Plan/Plan of Care Treatment,Training & Education: Yes Patient would benefit from OT for education, treatment and training to promote independence in ADL's, mobility, safety and/or upper extremity function for ADL's. Plan of Care: ADL Retraining, Concurrent Therapy, Functional Mobility, W/C Management Training Treatment Duration: Dec 09, 2020 Frequency: At least 5 of 7 days/Wk (IRF) Estimated Hrs Per Day: 1.5 hours per day Agreement: Yes Rehab Potential: Fair Time/GCodes Start Time: 08:15 Stop Time: 09:30 Total Time Billed (hr/min): 75 Billed Treatment Time [id number] 1, ADL x 30minutes, FA x 30minutes [id number] FA x [id number] with PT. Please see above note for designated roles. KOKI STOKES OT Dec 19, 2020 11:09
[2020-12-19] MEDS: HYDROcodone/APAP 7.5MG-325 MG/15 ML (LORTAB) UDC PO PRN (11:41)
--- NOTE | 2020-12-19 11:41 | PM&R Progress Note ---
Subjective HPI/CC On Admission Date Seen by Provider: Dec 19, 2020 Time Seen by Provider: 12:00 Subjective/Events-last exam 12/19/20: Oxycodone maintained for pain Leg pain from muscle workouts No N/V 12/18/20: Pt doing very well Very much improved Family training will be started Ostomy has 500cc output 12/17/20: Urecholine started by Dr. Wright and Pt denies any significant new issues Pain is well controlled Improved 12/16/20: Ileostomy put out 800cc Hgb 8.4 Iron level will be ordered Sodium level 130 so will DC fluid restriction Overall much improved 12/15/20: Patient doing well Sleeps a lot Pain is improved Dr Wright managing retention 12/14/20: Flomax started Dr Wright ordered in/out caths prn Patient is doing better No falls Pain is controlled Wound vac in place 12/13/20: Voiding is an issue Retention requiring in/out cath Dr Wright appreciated Checked meds and labs 12/12/20: Patient doing well Ambulated in front of me with assistance No pain reported No new issues Fluid restriction noted 12/11/20: Patient doing well Sodium level 129 No pain reported Fluid restriction maintained Ileostomy bag no leak Wound vac still in place 12/10/20: Participation with therapy good just slow Parallel bars but could not stand Fluid restriction maintained 12/09/20: Patient feels good Hgb 9.0 Sodium 127 2 person assist still Output 600 in ileostomy Lovenox maintained 12/08/20: Patient feels good and feels stronger Hgb 8.9 Sodium level 127 Ileostomy functioning well but bag keep leaking Gluteus cleft stage 2 decubitus ulcer Review of Systems General: Fatigue, Malaise Neurological: Weakness Objective Exam Vital Signs Vital Signs Date Time Temp Pulse Resp B/P (MAP) Pulse Ox O2 Delivery O2 Flow Rate FiO2 12/19/20 21:20 Room Air 12/19/20 19:28 94 12/19/20 16:32 36.6 84 20 129/60 (83) 12/14/20 18:04 92.00 12/14/20 09:00 9 Capillary Refill : General Appearance: No Apparent Distress, WD/WN, Chronically ill HEENT: PERRL/EOMI, Normal ENT Inspection, Pharynx Normal, Other ([place] severe) Neck: Normal Inspection, Supple Respiratory: Normal Breath Sounds, No Accessory Muscle Use, No Respiratory Distress Cardiovascular: Regular Rate, Rhythm, No Edema Gastrointestinal: Normal Bowel Sounds, No Organomegaly, No Pulsatile Mass, Non Tender, Soft, Other (ileostomy) Back: Normal Inspection, No CVA Tenderness, No Vertebral Tenderness Extremity: Normal Inspection, Normal Range of Motion Neurologic/Psychiatric: Alert, Oriented x3, No Motor/Sensory Deficits, Normal Mood/Affect, shipping manager II-XII Norm as Tested, Motor Weakness (3/5 all extremities) Skin: Normal Color, Warm/Dry, Other (Mild like abdominal incision C/D/I with wound vac in place. No surrounding redness. Left upper LANE drain with minimal Clear ss to serous drainage.) Lymphatic: No Adenopathy Results/Procedures Lab Patient resulted labs reviewed. FIM Transfers Therapy Code Descriptions/Definitions Functional [place] Measure: 0=Not Assessed/NA 4=Minimal Assistance 1=Total Assistance 5=Supervision or Setup 2=Maximal Assistance 6=Modified [place] 3=Moderate Assistance 7=Complete IndependenceSCALE: Activities may be completed with or without assistive devices. 5-Gyvpddskjv-zjsaryc completes the activity by him/herself with no assistance from a helper. 5-Set-up or Clean-up Assistance-helper sets up or cleans up; patient completes activity. [place] assists only prior to or following the activity. 4-Supervision or Touching Assistance-helper provides verbal cues and/or touching/steadying and/or contact guard assistance as patient completes activity. Assistance may be provided throughout the activity or intermittently. 3-Partial/Moderate Assistance-helper does LESS THAN HALF the effort. [place] lifts, holds or supports trunk or limbs, but provides less than half the effort. 2-Substantial/Maximal Assistance-helper does MORE THAN HALF the effort. [place] lifts or holds trunk or limbs and provides more than half the effort. 1-Frgleprfn-wvyakp does ALL the effort. Patient does none of the effort to complete the activity. Or, the assistance of 2 or more helpers is required for the patient to complete the activity. If activity was not attempted, code reason: 7-Patient Refused. 9-Not Applicable-not attempted and the patient did not perform the activity before the current illness, exacerbation or injury. 10-Not Attempted due to Environmental Limitations-(lack of equipment, weather restraints, etc.). 88-Not Attempted due to Medical Conditions or Safety Concerns. Roll Left to Right (QC): 6 Sit to Lying (QC): 5 Sit to Stand (QC): 4 Chair/Vyz-dv-Qfsge Xfer(QC): 3 Car Transfer (QC): 88 Gait Training Does the Patient Walk?: Yes Distance: 32', 45' Walk 10 feet (QC): 4 Walk 50 ft with 2 Turns(QC): 88 Walk 150 ft (QC): 88 Walking 10ft/uneven surface-QC: 88 Gait Persons Needed: 1 Gait Assistive Device: FWW Wheelchair Training Does the Pt Use a Wheelchair?: Yes Wheel 50 ft with 2 turns (QC): 4 (cues for safety and obstacle avoidance and through doorways. ) Wheel 150 ft (QC): 5 Type of Wheelchair: Manual Stair Training #of Steps: 0 1 Step (curb) (QC): 88 4 Steps (QC): 88 12 Steps (QC): 88 Balance Picking up an Object (QC): 88 ADL-Treatment Eating (QC): 6 Oral Hygiene (QC): 5 (Set up seated at sink in wheelchair.) Shower/Bathe Self (QC): 3 (Min assist in shower to cleanse rear red area in stance. Pt. 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 Urinary retention 12/13/20 Plan: IRF protocol Monitor pain O2 Nebs IS Lovenox 12/08/20: Xanax ordered Ileostomy functioning well but bag leaking Decubitus ulcer management 12/09/20: Monitor fluid restriction Salt tablets Monitor pain Ileostomy function monitoring 12/10/20: Salt tablets Fluid restriction Monitor closely Intensive therapy 12/11/20: Continue fluid restriction Salt tablets Monitor pain 12/12/20: Ambulating well today Fantastic progress 12/13/20: Urinary retention Dr Wright Monitor closely 12/14/20: Flomax started Dr Wright appreciated Pain control 12/15/20: Improved Retention per Dr Wright Wound vac 12/16/20: In/Out cath Monitor pain Monitor for UTI 12/17/20: Urecholine In/Out cath Monitor closely 12/18/20: Family training Impressive function 12/19/20: Monitor closely Pain control Impressive recovery (1) Myopathy (2) Ileus following gastrointestinal surgery (3) S/P right hemicolectomy (4) Presbycusis of both ears (5) Ileostomy in place (6) Anemia due to acute blood loss (7) Colon cancer (8) Hyponatremia (9) COPD (chronic obstructive pulmonary disease) (10) DVT prophylaxis WILFREDO MARTÍNEZ DO Dec 19, 2020 11:41
--- NOTE | 2020-12-19 13:34 | Speech Therapy Daily Note ---
Speech Daily Progress Note Subjective Date Seen by Provider: Dec 19, 2020 Time Seen by Provider: 00:30 Patient was resting in her bed following her PT. She was requesting a pain pill for her leg pain. She stated she had been given one but it wasn't doing much good. Objective Patient completed a series of q/a related to her needs upon discharge with 80% given min to mod cues and/or repetitions. Assessment Assessment Current Status: Good Progress Treatment Plan Continue Plan of Care Speech Short Term Goals Short Term Goals Short Term Goals 1) Patient will complete memory tasks related to her daily needs with minimal cues at 80% or greater. 2) Patient will complete safety awareness tasks related to her daily needs with minimal cues at 80% or greater. 3) Patient will complete problem solving tasks related to her daily needs with minimal cues at 80% or greater. Speech Usp Goals Unit Receptionist Goals Patient will improve cognitive-communication necessary for safety and daily living tasks with minimal assist. Speech-Plan Patient/Family Goals Patient/Family Goals: Patient plans on returning to her home where she lives with her sister. However, her sister works multimedia teacher and patient will require assistance throughout the day. Treatment Plan Speech Therapy Treatment Plan: Continue Plan of Care Treatment Duration: Dec 20, 2020 Frequency: 4 times per week (Patient will receive skilled ST 4-5x per week) Estimated Hrs Per Day: .5 hour per day Rehab Potential: Fair Barriers to Learning: Patient's recent lengthy recovery from COVID and her current debility Pt/Family Agrees to Plan: Yes Safety Risks/Education Teaching Recipient: Patient Teaching Methods: Demonstration, Discussion Response to Teaching: Verbalize Understanding, Return Demonstration Education Topics Provided: Continued safety while inpatient and after discharge Time Speech Therapy Time In: 10:30 Speech Therapy Time Out: 11:00 Total Billed Time: 30 Billed Treatment Time 1LOC [facility] [facility] Dec 19, 2020 13:34
--- NOTE | 2020-12-19 15:04 | Physical Therapy Daily Note ---
PT Daily Note-Current Subjective Patient in bed pre tx, agrees to PT, has no complaints of pain at rest, wound care nurse if finishing up. Appearance Patient on toilet post tx with nurse call, instructed to call when done. Mental Status Patient Orientation: Person, Place, Situation Attachments: Colostomy/Ileostomy wound vac Transfers SCALE: Activities may be completed with or without assistive devices. 4-Nkbjbzehfw-pbrngmk completes the activity by him/herself with no assistance from a helper. 5-Set-up or Clean-up Assistance-helper sets up or cleans up; patient completes activity. [place] assists only prior to or following the activity. 4-Supervision or Touching Assistance-helper provides verbal cues and/or touching/steadying and/or contact guard assistance as patient completes activity. Assistance may be provided throughout the activity or intermittently. 3-Partial/Moderate Assistance-helper does LESS THAN HALF the effort. [place] lifts, holds or supports trunk or limbs, but provides less than half the effort. 2-Substantial/Maximal Assistance-helper does MORE THAN HALF the effort. [place] lifts or holds trunk or limbs and provides more than half the effort. 5-Aafgtqlli-pewccf does ALL the effort. Patient does none of the effort to c omplete the activity. Or, the assistance of 2 or more helpers is required for the patient to complete the activity. If activity was not attempted, code reason: 7-Patient Refused. 9-Not Applicable-not attempted and the patient did not perform the activity before the current illness, exacerbation or injury. 10-Not Attempted due to Environmental Limitations-(lack of equipment, weather restraints, etc.). 88-Not Attempted due to Medical Conditions or Safety Concerns. Roll Left & Right (QC): 6 Lying to Sitting/Side of Bed(Q: 4 Sit to Stand (QC): 4 Chair/Tpk-zg-[place]en[place] Xfer(QC): 4 After LE exercises patient needs to use the restroom supine to sit with SBA, sit to stand SBA Weight Bearing Full Weight Bearing Full Weight Bearing Gait Training Distance: 10' Walk 10 feet (QC): 4 Gait Assistive Device: FWW SBA, slow but steady ambulation Exercises Supine Ex: Ankle pumps, Quad Set, Glut sets, Heel Slides, Short Arc Quads, Str aight leg raise (AAROM), Hip abd/add Supine Reps: 20 Treatments bed mobility and transfers, ambulation, LE exercise Assessment Current Status: Fair Progress improving general functional mobility PT Short Term Goals Short Term Goals Time Frame: Dec 21, 2020 Roll Left & Right: 4 Sit to lyin Lying to sitting on side of be: 4 Sit to stand: 4 Chair/jos-hf-tfcgk transfer: 4 Toilet transfer: 4 Car transfer: 3 Walk 10 feet: 4 Walk 50 feet with two turns: 4 Walk 150 feet: 4 Walking 10ft on uneven surface: 4 1 step (curb): 4 Does pt use a wc or scooter: Yes Wheel 50ft w/2 turns: 4 Wheel 150 feet: 4 Type: Manual PT Senior Care Goals Geriatrics Physician Goals PT Geriatrics Physician Goals Time Frame: Jan 04, 2021 Roll Left & Right (QC): 6 Sit to Lying (QC): 6 Lying-Sitting on Side/Bed(QC): 6 Sit to Stand (QC): 6 Chair/Mhm-hb-Szgev Xfer(QC): 6 Toilet Transfer (QC): 6 Car Transfer (QC): 5 Does the Patient Walk: Yes Walk 10 feet (QC): 6 Walk 50ft with 2 Turns (QC): 6 Walk 150 ft (QC): 5 Walking 10ft on Uneven Surface: 6 1 Step (curb) (QC): 5 4 Steps (QC): 5 12 Steps (QC): 4 Picking up an Object (QC): 4 Does the Pt use WC or Scooter?: Yes Wheel 50 feet with 2 turns (QC: 6 Type: Manual Wheel 150 feet: 6 Type: Manual PT Plan Problem List Problem List: Activity Tolerance, Functional Strength, Safety, Balance, Gait, Transfer, Bed Mobility, ROM Treatment/Plan Treatment Plan: Continue Plan of Care Treatment Plan: Bed Mobility, Concurrent Therapy, Functional Activity [place], Functional Strength, Group Therapy, Gait, Safety, Therapeutic Exercise, Transfers Treatment Duration: Jan 04, 2021 Frequency: At least 5 of 7 days/Wk (IRF) Estimated Hrs Per Day: 1.5 hours per day Patient and/or Family Agrees t: Yes Safety Risks/Education Patient Education: Gait Training, Transfer Techniques, Correct Positioning, Safety Issues Teaching Recipient: Patient Teaching Methods: Demonstration, Discussion Response to Teaching: Reinforcement Needed Time/GCodes Time In: 1440 Time Out: 1500 Total Billed Treatment Time: 20 Total Billed Treatment 1 visit EX 20' RAMOS POLLOCK PT Dec 19, 2020 15:04
[2020-12-19 16:32] VITALS: BP 129/60
[2020-12-19] MEDS: TAMSULOSIN 0.4 MG (FLOMAX) CAP PO SCH (17:53)
[2020-12-19] MEDS: ENOXAPARIN 40 MG/0.4 ML (LOVENOX) SYR SC SCH (20:57)
[2020-12-19] MEDS: METOCLOPRAMIDE 5 MG (REGLAN) TAB PO SCH (20:57)
[2020-12-19] MEDS: CATHETER FLUSH 10 ML SYR IV SCH (21:05)
[2020-12-20 05:58] VITALS: BP 111/53
[2020-12-20] MEDS: BETHANECHOL 10 MG (URECHOLINE) TAB PO SCH ×4 (06:10→21:20)
[2020-12-20] MEDS: SUCRALFATE 1 GM (CARAFATE) TAB PO SCH ×4 (06:10→21:20)
[2020-12-20] MEDS: CATHETER FLUSH 10 ML SYR IV SCH ×3 (06:11→21:22)
[2020-12-20] MEDS: TRELEGY ELLIPTA IH SCH (07:06)
[2020-12-20] MEDS: RT-ALBUTEROL SULF 2.5 MG/3 ML PRE-MIX VIAL INH PRN ×2 (07:07→18:41)
[2020-12-20] MEDS: METOCLOPRAMIDE 5 MG (REGLAN) TAB PO SCH ×2 (09:30→21:20)
[2020-12-20] MEDS: lisINopril 20 MG (PRINIVIL) TABLET PO SCH (09:30)
[2020-12-20] MEDS: PANTOPRAZOLE 40 MG (PROTONIX) TAB PO SCH ×2 (09:30→21:20)
[2020-12-20] MEDS: amLODIPine 10 MG (NORVASC) TAB PO SCH (09:30)
[2020-12-20] MEDS: meTOprolol TARTRATE 25 MG (LOPRESSOR) TABLET PO SCH ×2 (09:30→21:22)
[2020-12-20] MEDS: NICOTINE PATCH REMOVAL TP SCH (09:35)
[2020-12-20] MEDS ORDERED: ALPRAZolam 0.25 MG (XANAX) TAB PO PRN (09:45)
[2020-12-20] MEDS: HYDROcodone/APAP 7.5MG-325 MG/15 ML (LORTAB) UDC PO PRN (09:58)
[2020-12-20] MEDS: DOCUSATE SODIUM 100 MG (COLACE) CAP PO SCH ×2 (09:58→21:20)
[2020-12-20] MEDS: polyethylene glycoL POWDER 17 GM (MIRALAX) PACK PO SCH ×2 (09:58→21:20)
[2020-12-20] MEDS: SENNA W/DOCUSATE (SENOKOT S) TABLET PO SCH ×2 (09:59→21:20)
[2020-12-20] MEDS: NICOTINE 14 MG (NICODERM) PATCH TD SCH (09:59)
[2020-12-20] MEDS: SODIUM CHLORIDE 1 GM TABLET PO SCH ×2 (10:03→21:19)
--- NOTE | 2020-12-20 10:04 | Physical Therapy Daily Note ---
PT Daily Note-Current Subjective Pt. with OT in bthrm upon arrival. Pt. a bit resistive of rx, shares that she hates wearing the mask and is in pain at 05/03. Nurse brings pain meds. Pain Numeric Pain Scale: 7 Location: Medial Location Body Site: Abdomen Pain Description: Pressure Appearance noted dyspnea Mental Status Patient Orientation: Normal For Age Attachments: Other-See Comments (wound vacc) Transfers SCALE: Activities may be completed with or without assistive devices. 7-Wbznarpnqu-ktumkcr completes the activity by him/herself with no assistance from a helper. 5-Set-up or Clean-up Assistance-helper sets up or cleans up; patient completes activity. [place] assists only prior to or following the activity. 4-Supervision or Touching Assistance-helper provides verbal cues and/or touching/steadying and/or contact guard assistance as patient completes activity. Assistance may be provided throughout the activity or intermittently. 3-Partial/Moderate Assistance-helper does LESS THAN HALF the effort. [place] lifts, holds or supports trunk or limbs, but provides less than half the effort. 2-Substantial/Maximal Assistance-helper does MORE THAN HALF the effort. [place] lifts or holds trunk or limbs and provides more than half the effort. 8-Qpwrpkklm-tfxocw does ALL the effort. Patient does none of the effort to complete the activity. Or, the assistance of 2 or more helpers is required for the patient to complete the activity. If activity was not attempted, code reason: 7-Patient Refused. 9-Not Applicable-not attempted and the patient did not perform the activity before the current illness, exacerbation or injury. 10-Not Attempted due to Environmental Limitations-(lack of equipment, weather restraints, etc.). 88-Not Attempted due to Medical Conditions or Safety Concerns. Roll Left & Right (QC): 6 Sit to Lying (QC): 6 Lying to Sitting/Side of Bed(Q: 6 Sit to Stand (QC): 6 Chair/Zrs-rs-Sayjq Xfer(QC): 4 Toilet Transfer (QC): 4 Weight Bearing Full Weight Bearing Full Weight Bearing Gait Training Does the Patient Walk?: Yes Walk 10 feet (QC): 4 Walk 50 ft with 2 Turns(QC): 4 Gait Persons Needed: 1 Gait Assistive Device: FWW pt. ambulates slow, needs instructed to steer around objects and handle safely, pt. inquires about rollator as she feels she would profit from sitting down at times. This PRESCHOOL ASSISTANT DIRECTOR explained the advantages and disadvantages of rollator. Pt. ambulated 10ft, 60 ft, 70 ft Min to CGA and w/c close behind with assist for [place]. Wheelchair Training Does the Pt Use a Wheelchair?: Yes Wheel 50 ft with 2 turns (QC): 4 Type of Wheelchair: Manual still needs reminded of safety and braking Exercises Seated Therapy Exercises: Ankle pumps, Sit to stand (x12), Long arc quads Seated Reps: 20 Treatments PT OT co Rx as pt. continues with poor activity tolerance requiring 2 skilled clinicians Assessment Current Status: Good Progress PT Short Term Goals Short Term Goals Time Frame: Dec 21, 2020 Roll Left & Right: 4 Sit to lyin Lying to sitting on side of be: 4 Sit to stand: 4 Chair/fbf-ne-xfzhv transfer: 4 Toilet transfer: 4 Car transfer: 3 Walk 10 feet: 4 Walk 50 feet with two turns: 4 Walk 150 feet: 4 Walking 10ft on uneven surface: 4 1 step (curb): 4 Does pt use a wc or scooter: Yes Wheel 50ft w/2 turns: 4 Wheel 150 feet: 4 Type: Manual PT Cushion Mat Maker Goals Shelter Goals PT Cushion Mat Maker Goals Time Frame: Jan 04, 2021 Roll Left & Right (QC): 6 Sit to Lying (QC): 6 Lying-Sitting on Side/Bed(QC): 6 Sit to Stand (QC): 6 Chair/Yrd-ul-Qmyau Xfer(QC): 6 Toilet Transfer (QC): 6 Car Transfer (QC): 5 Does the Patient Walk: Yes Walk 10 feet (QC): 6 Walk 50ft with 2 Turns (QC): 6 Walk 150 ft (QC): 5 Walking 10ft on Uneven Surface: 6 1 Step (curb) (QC): 5 4 Steps (QC): 5 12 Steps (QC): 4 Picking up an Object (QC): 4 Does the Pt use WC or Scooter?: Yes Wheel 50 feet with 2 turns (QC: 6 Type: Manual Wheel 150 feet: 6 Type: Manual PT Plan Treatment/Plan Treatment Plan: Continue Plan of Care Treatment Plan: Bed Mobility, Concurrent Therapy, Functional Activity [place], Functional Strength, Group Therapy, Gait, Safety, Therapeutic Exercise, Transfers Treatment Duration: Jan 04, 2021 Frequency: At least 5 of 7 days/Wk (IRF) Estimated Hrs Per Day: 1.5 hours per day Patient and/or Family Agrees t: Yes Safety Risks/Education Patient Education: Gait Training, Transfer Techniques, Correct Positioning, Disease Process, Safety Issues Teaching Recipient: Patient Teaching Methods: Demonstration, Discussion Response to Teaching: Verbalize Understanding, Return Demonstration, Reinforcement Needed Time/GCodes Time In: 900 Time Out: 1000 Total Billed Treatment Time: 60 Total Billed Treatment 1,[id number] DUSTIN MARSH PRESCHOOL ASSISTANT DIRECTOR Dec 20, 2020 10:04
--- NOTE | 2020-12-20 10:11 | PM&R Progress Note ---
Subjective HPI/CC On Admission Date Seen by Provider: Dec 20, 2020 Time Seen by Provider: 09:45 Subjective/Events-last exam 12/20/20: Increased work of breathing Xanax ordered CXR and labs ordered No sepsis ATX bilateral on CXR so increase use of IS No abx indicated at this time Flonase restarted Sister at bedside 12/19/20: Oxycodone maintained for pain Leg pain from muscle workouts No N/V 12/18/20: Pt doing very well Very much improved Family training will be started Ostomy has 500cc output 12/17/20: Urecholine started by Dr. Wright and Pt denies any significant new issues Pain is well controlled Improved 12/16/20: Ileostomy put out 800cc Hgb 8.4 Iron level will be ordered Sodium level 130 so will DC fluid restriction Overall much improved 12/15/20: Patient doing well Sleeps a lot Pain is improved Dr Wright managing retention 12/14/20: Flomax started Dr Wright ordered in/out caths prn Patient is doing better No falls Pain is controlled Wound vac in place 12/13/20: Voiding is an issue Retention requiring in/out cath Dr Wright appreciated Checked meds and labs 12/12/20: Patient doing well Ambulated in front of me with assistance No pain reported No new issues Fluid restriction noted 12/11/20: Patient doing well Sodium level 129 No pain reported Fluid restriction maintained Ileostomy bag no leak Wound vac still in place 12/10/20: Participation with therapy good just slow Parallel bars but could not stand Fluid restriction maintained 12/09/20: Patient feels good Hgb 9.0 Sodium 127 2 person assist still Output 600 in ileostomy Lovenox maintained 12/08/20: Patient feels good and feels stronger Hgb 8.9 Sodium level 127 Ileostomy functioning well but bag keep leaking Gluteus cleft stage 2 decubitus ulcer Review of Systems General: Fatigue Pulmonary: Dyspnea Focused Exam Lactate Level 12/20/20 10:19: Lactic Acid Level 1.71 12/21/20 05:00: Lactic Acid Level 1.25 Lactic Acid Level Laboratory Tests Test 12/21/20 05:00 Lactic Acid Level 1.25 MMOL/L (0.50-2.00) Objective Exam Vital Signs Vital Signs Date Time Temp Pulse Resp B/P (MAP) Pulse Ox O2 Delivery O2 Flow Rate FiO2 12/21/20 05:30 36.9 94 20 112/53 (72) 91 Room Air Capillary Refill : General Appearance: No Apparent Distress, WD/WN, Chronically ill HEENT: PERRL/EOMI, Normal ENT Inspection, Pharynx Normal, Other ([place] severe) Neck: Normal Inspection, Supple Respiratory: Normal Breath Sounds, No Accessory Muscle Use, No Respiratory Distress Cardiovascular: Regular Rate, Rhythm, No Edema Gastrointestinal: Normal Bowel Sounds, No Organomegaly, No Pulsatile Mass, Non Tender, Soft, Other (ileostomy) Back: Normal Inspection, No CVA Tenderness, No Vertebral Tenderness Extremity: Normal Inspection, Normal Range of Motion Neurologic/Psychiatric: Alert, Oriented x3, No Motor/Sensory Deficits, Normal Mood/Affect, map drafter II-XII Norm as Tested, Motor Weakness (3/5 all extremities) Skin: Normal Color, Warm/Dry, Other (Mild like abdominal incision C/D/I with wound vac in place. No surrounding redness. Left upper LANE drain with minimal Clear ss to serous drainage.) Lymphatic: No Adenopathy Results/Procedures Lab Laboratory Tests 12/20/20 10:19 12/21/20 05:00 Patient resulted labs reviewed. FIM Transfers Therapy Code Descriptions/Definitions Functional [place] Measure: 0=Not Assessed/NA 4=Minimal Assistance 1=Total Assistance 5=Supervision or Setup 2=Maximal Assistance 6=Modified [place] 3=Moderate Assistance 7=Complete IndependenceSCALE: Activities may be completed with or without assistive devices. 9-Gynfgansbk-ovrwloc completes the activity by him/herself with no assistance from a helper. 5-Set-up or Clean-up Assistance-helper sets up or cleans up; patient completes activity. [place] assists only prior to or following the activity. 4-Supervision or Touching Assistance-helper provides verbal cues and/or touching/steadying and/or contact guard assistance as patient completes activity. Assistance may be provided throughout the activity or intermittently. 3-Partial/Moderate Assistance-helper does LESS THAN HALF the effort. [place] lifts, holds or supports trunk or limbs, but provides less than half the effort. 2-Substantial/Maximal Assistance-helper does MORE THAN HALF the effort. [place] lifts or holds trunk or limbs and provides more than half the effort. 9-Iqdwcasim-koljbm does ALL the effort. Patient does none of the effort to complete the activity. Or, the assistance of 2 or more helpers is required for the patient to complete the activity. If activity was not attempted, code reason: 7-Patient Refused. 9-Not Applicable-not attempted and the patient did not perform the activity before the current illness, exacerbation or injury. 10-Not Attempted due to Environmental Limitations-(lack of equipment, weather restraints, etc.). 88-Not Attempted due to Medical Conditions or Safety Concerns. Roll Left to Right (QC): 6 Sit to Lying (QC): 6 Sit to Stand (QC): 6 Chair/Fsz-gz-Styqo Xfer(QC): 4 Car Transfer (QC): 88 Gait Training Does the Patient Walk?: Yes Distance: 10' Walk 10 feet (QC): 4 Walk 50 ft with 2 Turns(QC): 4 Walk 150 ft (QC): 88 Walking 10ft/uneven surface-QC: 88 Gait Persons Needed: 1 Gait Assistive Device: FWW Wheelchair Training Does the Pt Use a Wheelchair?: Yes Wheel 50 ft with 2 turns (QC): 4 Wheel 150 ft (QC): 5 Type of Wheelchair: Manual Stair Training #of Steps: 0 1 Step (curb) (QC): 88 4 Steps (QC): 88 12 Steps (QC): 88 Balance Picking up an Object (QC): 88 ADL-Treatment Eating (QC): 6 Oral Hygiene (QC): 5 (Set up seated at sink in wheelchair.) Shower/Bathe Self (QC): 3 (Min assist in shower to cleanse rear red area in stance. Pt. 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 Urinary retention 12/13/20 Plan: IRF protocol Monitor pain O2 Nebs IS Lovenox 12/08/20: Xanax ordered Ileostomy functioning well but bag leaking Decubitus ulcer management 12/09/20: Monitor fluid restriction Salt tablets Monitor pain Ileostomy function monitoring 12/10/20: Salt tablets Fluid restriction Monitor closely Intensive therapy 12/11/20: Continue fluid restriction Salt tablets Monitor pain 12/12/20: Ambulating well today Fantastic progress 12/13/20: Urinary retention Dr Wright Monitor closely 12/14/20: Flomax started Dr Wright appreciated Pain control 12/15/20: Improved Retention per Dr Wright Wound vac 12/16/20: In/Out cath Monitor pain Monitor for UTI 12/17/20: Urecholine In/Out cath Monitor closely 12/18/20: Family training Impressive function 12/19/20: Monitor closely Pain control Impressive recovery 12/20/20: Sepsis w/u Check CXR IS Xanax Flonase (1) Myopathy (2) Ileus following gastrointestinal surgery (3) S/P right hemicolectomy (4) Presbycusis of both ears (5) Ileostomy in place (6) Anemia due to acute blood loss (7) Colon cancer (8) Hyponatremia (9) COPD (chronic obstructive pulmonary disease) (10) DVT prophylaxis WILFREDO MARTÍNEZ DO Dec 20, 2020 10:11
--- NOTE | 2020-12-20 10:25 | Diagnostic Imaging Report ---
Clinical indication: Patient with dyspnea. Exam: Portable chest x-ray upright view. Comparisons: Chest x-ray dated 11/27/2020. Findings: Lungs/pleura: There is mild bibasilar atelectasis. Otherwise, lungs are clear. There is slight elevation of the left hemidiaphragm. There is no pneumothorax. There is no pleural effusion. Mediastinum: Unremarkable. Pulmonary vasculature: Unremarkable. Heart: Unremarkable. Bones/extrathoracic soft tissue: There are hypertrophic spurs involving the thoracic spine. Impression: There is mild bibasilar atelectasis. Otherwise, there is no radiographic evidence of acute cardiopulmonary process. Dictated by: Dictated on workstation # [id number]
[2020-12-20 10:26] LABS: BASOPHILS # (AUTO) 0.1 10^3/uL (0.0-0.1); BASOPHILS % (AUTO) 0 % (0-10); EOSINOPHILS % (AUTO) 0 % (0-10); HEMATOCRIT 25 % (35-52); HEMOGLOBIN 8.5 g/dL (11.5-16.0); LYMPHOCYTES # (AUTO) 2.2 10^3/uL (1.0-4.0); LYMPHOCYTES % (AUTO) 17 % (12-44); MEAN CORPUSCULAR HEMOGLOBIN 30 pg (25-34); MEAN CORPUSCULAR HGB CONC 34 g/dL (32-36); MEAN CORPUSCULAR VOLUME 88 fL (80-99); MEAN PLATELET VOLUME 8.7 fL (9.0-12.2); MONOCYTES # (AUTO) 0.9 10^3/uL (0.0-1.0); MONOCYTES % (AUTO) 7 % (0-12); NEUTROPHILS % (AUTO) 74 % (42-75); PLATELET COUNT 350 10^3/uL (130-400); WHITE BLOOD COUNT 13.6 10^3/uL (4.3-11.0)
[2020-12-20 10:37] LABS: ALBUMIN 2.8 GM/DL (3.2-4.5); CHLORIDE 95 MMOL/L (98-107)
[2020-12-20 10:39] LABS: CALCIUM 7.4 MG/DL (8.5-10.1)
[2020-12-20 10:40] LABS: GLUCOSE 155 MG/DL (70-105); TOTAL PROTEIN 6.5 GM/DL (6.4-8.2)
[2020-12-20 10:41] LABS: CARBON DIOXIDE 20 MMOL/L (21-32)
[2020-12-20 10:42] LABS: BILIRUBIN,TOTAL 0.2 MG/DL (0.1-1.0)
[2020-12-20 10:43] LABS: ALKALINE PHOSPHATASE 114 U/L (40-136); CREATININE SERUM 0.74 MG/DL (0.60-1.30); GFR ESTIMATED > 60
[2020-12-20 10:44] LABS: BUN/CREATININE RATIO 16
[2020-12-20 10:46] LABS: ALANINE AMINOTRANSFERASE 38 U/L (0-55)
[2020-12-20 10:51] LABS: SODIUM 125 MMOL/L (135-145)
[2020-12-20] MEDS ORDERED: SALIVA STIMULANT MOUTH SPRAY (BIOTENE) 1.5 OZ MM PRN (11:15)
[2020-12-20] MEDS: fentaNYL PATCH 25 MCG (DURAGESIC) TD SCH (11:30)
[2020-12-20] MEDS: FENTANYL PATCH REMOVAL TP SCH (11:31)
--- NOTE | 2020-12-20 11:34 | Occupational Ther Daily Note ---
OT Current Status-Daily Note Subjective Pt alert, lying in bed. Pt states that she is shaky from breathing episode earlier. Agrees to therapy, but states that it will have to take it slow. Pt c/o pain 7/10 pain, nrsg brought meds. Mental Status/Objective Patient Orientation: Person, Place, Time, Situation Attachments: Drains, IV ADL-Treatment Pt agrees to sponge bath at sink. After set up, pt completes all areas of sponge bath except feet with SBA. Pt able to manipulate upper body clothing by self after setup. Pt was able to don/doff socks with AE. Refused to don underwear. Pt takes increased time to complete tasks stating she is shaky, ahsan thy recovery breaks. Pt completed oral care independently. Therapy Code Descriptions/Definitions Functional [place] Measure: 0=Not Assessed/NA 4=Minimal Assistance 1=Total Assistance 5=Supervision or Setup 2=Maximal Assistance 6=Modified [place] 3=Moderate Assistance 7=Complete IndependenceSCALE: Activities may be completed with or without assistive devices. 8-Zlfayzpcqf-fbgdvjn completes the activity by him/herself with no assistance from a helper. 5-Set-up or Clean-up Assistance-helper sets up or cleans up; patient completes activity. [place] assists only prior to or following the activity. 4-Supervision or Touching Assistance-helper provides verbal cues and/or touching/steadying and/or contact guard assistance as patient completes activity. Assistance may be provided throughout the activity or intermittently. 3-Partial/Moderate Assistance-helper does LESS THAN HALF the effort. [place] l ifts, holds or supports trunk or limbs, but provides less than half the effort. 2-Substantial/Maximal Assistance-helper does MORE THAN HALF the effort. [place] lifts or holds trunk or limbs and provides more than half the effort. 6-Dxkszwnjh-ktdwhu does ALL the effort. Patient does none of the effort to complete the activity. Or, the assistance of 2 or more helpers is required for t he patient to complete the activity. If activity was not attempted, code reason: 7-Patient Refused. 9-Not Applicable-not attempted and the patient did not perform the activity before the current illness, exacerbation or injury. 10-Not Attempted due to Environmental Limitations-(lack of equipment, weather restraints, etc.). 88-Not Attempted due to Medical Conditions or Safety Concerns. Oral Hygiene (QC): 6 Shower/Bathe Self (QC): 5 Upper Body Dressing (QC): 5 Lower Body Dressing (QC): 7 On/Off Footwear: 5 Toileting Hygiene (QC): 4 (SBA) Toilet Transfer (QC): 4 (SBA) Other Treatment Co-treat with PT [id number], skilled instruction and care required 2 clinicians due to pt's decreased mobility and activity tolerance. PT focusing on ambulation, w/c mobility and transfers while OT focusing on manipulating wound vac/tubing, ADLs and correct B UE positioning. PT discussed that pros/cons of rollator that pt was considering. See PT notes for pt's ambulation progress. Pt required multiple recovery breaks during ambulation and SOA noted. After therapy, pt lying in bed with call light/phone in reach. Pt to sit up during meal times. OT Short Term Goals Short Term Goals Time Frame: Dec 23, 2020 Eatin Oral hygiene: 4 Toileting hygiene: 3 Shower/bathe self: 3 Upper body dressin Lower body dressin Putting on/taking off footwear: 3 OT Halfway Goals Refinery Operator Helper Crude Unit Goals Time Frame: Jan 06, 2021 Eating (QC): 6 Oral Hygiene (QC): 6 Toileting Hygiene (QC): 4 Shower/Bathe Self (QC): 4 Upper Body Dressing (QC): 5 Lower Body Dressing (QC): 4 On/Off Footwear (QC): 4 Additional Goals: 1-Demonstrate ADL Tasks, 2-Verbalize Understanding, 3- ImproveStrength/[place] 1=Demonstrate adherence to instructed precautions during ADL tasks. 2=Patient will verbalize/demonstrate understanding of assistive devices/modifications for ADL. 3=Patient will improve strength/tolerance for activity to enable patient to perform ADL's. OT Education/Plan Problem List/Assessment Assessment: Decreased Activ Tolerance, Impaired Funct Balance, Impaired Self- Care Skills Discharge Recommendations Plan/Recommendations: Continue POC Treatment Plan/Plan of Care Patient would benefit from OT for education, treatment and training to promote independence in ADL's, mobility, safety and/or upper extremity function for ADL's. Plan of Care: ADL Retraining, Concurrent Therapy, Functional Mobility, W/C Management Training Treatment Duration: Dec 09, 2020 Frequency: At least 5 of 7 days/Wk (IRF) Estimated Hrs Per Day: 1.5 hours per day Agreement: Yes Rehab Potential: Fair Time/GCodes Start Time: 08:45 Stop Time: 10:00 Total Time Billed (hr/min): 75 Billed Treatment Time 1 visit-ADL 3 (45 min) FA 2 (30 min) co-treat with PT [id number], individual [id number] RAIZA BROWNING Dec 20, 2020 11:34
--- NOTE | 2020-12-20 13:29 | Speech Therapy Daily Note ---
Speech Daily Progress Note Subjective Date Seen by Provider: Dec 20, 2020 Time Seen by Provider: 00:30 Patient was resting in her bed following her PT. She stated she walked even further today and wasn't hurting quite as much as she was yesterday. Objective Patient completed a series of q/a related to her daily needs upon discharge at 90%. Patient will need some support at home if that is where she discharges to due to not being independent yet. Assessment Assessment Current Status: Good Progress Treatment Plan Continue Plan of Care Speech Short Term Goals Short Term Goals Short Term Goals 1) Patient will complete memory tasks related to her daily needs with minimal cues at 80% or greater. 2) Patient will complete safety awareness tasks related to her daily needs with minimal cues at 80% or greater. 3) Patient will complete problem solving tasks related to her daily needs with minimal cues at 80% or greater. Speech Supervisor Mending Goals [facility]iary Goals Patient will improve cognitive-communication necessary for safety and daily living tasks with minimal assist. Speech-Plan Patient/Family Goals Patient/Family Goals: Patient is hoping she can return to her home where she lives with her sister. However, she does realize at this time she is not able to due to her current status. Treatment Plan Speech Therapy Treatment Plan: Continue Plan of Care Treatment Duration: Dec 20, 2020 Frequency: 4 times per week (Patient will receive skilled ST 4-5x per week) Estimated Hrs Per Day: .5 hour per day Rehab Potential: Fair Barriers to Learning: Patient's past 2 month COVID recovery, debility, age Pt/Family Agrees to Plan: Yes Safety Risks/Education Teaching Recipient: Patient Teaching Methods: Demonstration, Discussion Response to Teaching: Verbalize Understanding, Return Demonstration Education Topics Provided: Continued safety and communication Time Speech Therapy Time In: 10:30 Speech Therapy Time Out: 11:00 Total Billed Time: 30 Billed Treatment Time 1, LESVIA Trejo Dec 20, 2020 13:29
--- NOTE | 2020-12-20 13:49 | Physical Therapy Daily Note ---
PT Daily Note-Current Subjective Pt. asleep upon entering room, agreeable to Rx after awakened Pain Location: No Pain Reported Mental Status Patient Orientation: Normal For Age Attachments: Other-See Comments (wound vacc) Transfers SCALE: Activities may be completed with or without assistive devices. 8-Iavbzmuzql-dwfcqds completes the activity by him/herself with no assistance from a helper. 5-Set-up or Clean-up Assistance-helper sets up or cleans up; patient completes activity. [place] assists only prior to or following the activity. 4-Supervision or Touching Assistance-helper provides verbal cues and/or touching/steadying and/or contact guard assistance as patient completes activity. Assistance may be provided throughout the activity or intermittently. 3-Partial/Moderate Assistance-helper does LESS THAN HALF the effort. [place] lifts, holds or supports trunk or limbs, but provides less than half the effort. 2-Substantial/Maximal Assistance-helper does MORE THAN HALF the effort. [place] lifts or holds trunk or limbs and provides more than half the effort. 5-Gipzvtwyj-korqdf does ALL the effort. Patient does none of the effort to complete the activity. Or, the assistance of 2 or more helpers is required for the patient to complete the activity. If activity was not attempted, code reason: 7-Patient Refused. 9-Not Applicable-not attempted and the patient did not perform the activity before the current illness, exacerbation or injury. 10-Not Attempted due to Environmental Limitations-(lack of equipment, weather restraints, etc.). 88-Not Attempted due to Medical Conditions or Safety Concerns. pt rolls left to right indep, pt. pulled/pushed self up in bed using rails x 2 indep Weight Bearing Full Weight Bearing Full Weight Bearing Exercises Supine Ex: Bridging, Ankle pumps, Quad Set, Rolling, Glut sets, Heel Slides, Short Arc Quads, Scooting, Straight leg raise, Hip abd/add Supine Reps: 12 Assessment Current Status: Good Progress gave full effort PT Short Term Goals Short Term Goals Time Frame: Dec 21, 2020 Roll Left & Right: 4 Sit to lyin Lying to sitting on side of be: 4 Sit to stand: 4 Chair/yfr-to-fnzcu transfer: 4 Toilet transfer: 4 Car transfer: 3 Walk 10 feet: 4 Walk 50 feet with two turns: 4 Walk 150 feet: 4 Walking 10ft on uneven surface: 4 1 step (curb): 4 Does pt use a wc or scooter: Yes Wheel 50ft w/2 turns: 4 Wheel 150 feet: 4 Type: Manual PT Senior Care Goals Senior Care Goals PT Stereotyper Helper Goals Time Frame: Jan 04, 2021 Roll Left & Right (QC): 6 Sit to Lying (QC): 6 Lying-Sitting on Side/Bed(QC): 6 Sit to Stand (QC): 6 Chair/Wqr-rc-Gyixz Xfer(QC): 6 Toilet Transfer (QC): 6 Car Transfer (QC): 5 Does the Patient Walk: Yes Walk 10 feet (QC): 6 Walk 50ft with 2 Turns (QC): 6 Walk 150 ft (QC): 5 Walking 10ft on Uneven Surface: 6 1 Step (curb) (QC): 5 4 Steps (QC): 5 12 Steps (QC): 4 Picking up an Object (QC): 4 Does the Pt use WC or Scooter?: Yes Wheel 50 feet with 2 turns (QC: 6 Type: Manual Wheel 150 feet: 6 Type: Manual PT Plan Treatment/Plan Treatment Plan: Continue Plan of Care Treatment Plan: Bed Mobility, Concurrent Therapy, Functional Activity Palak, Functional Strength, Group Therapy, Gait, Safety, Therapeutic Exercise, Transf ers Treatment Duration: Jan 04, 2021 Frequency: At least 5 of 7 days/Wk (IRF) Estimated Hrs Per Day: 1.5 hours per day Patient and/or Family Agrees t: Yes Safety Risks/Education Patient Education: Correct Positioning Teaching Recipient: Patient Teaching Methods: Discussion Response to Teaching: Verbalize Understanding, Return Demonstration, Reinforcement Needed Time/GCodes Time In: 1330 Time Out: 1345 Total Billed Treatment Time: 15 Total Billed Treatment 1,EX15m DUSTIN MARSH CORD CUTTER Dec 20, 2020 13:49
[2020-12-20] MEDS: FLUTICASONE NASAL SPRAY (FLONASE) 16 GM BTL NS SCH (13:53)
[2020-12-20] MEDS: TAMSULOSIN 0.4 MG (FLOMAX) CAP PO SCH (17:04)
[2020-12-20 17:10] VITALS: BP 121/59
[2020-12-20] MEDS: MELATONIN 3 MG TABLET PO PRN (21:20)
[2020-12-20] MEDS: ENOXAPARIN 40 MG/0.4 ML (LOVENOX) SYR SC SCH (21:22)
[2020-12-21 05:16] LABS: BASOPHILS % (AUTO) 0 % (0-10); EOSINOPHILS # (AUTO) 0.1 10^3/uL (0.0-0.3); EOSINOPHILS % (AUTO) 1 % (0-10); HEMATOCRIT 23 % (35-52); HEMOGLOBIN 7.5 g/dL (11.5-16.0); LYMPHOCYTES # (AUTO) 2.8 10^3/uL (1.0-4.0); LYMPHOCYTES % (AUTO) 24 % (12-44); MEAN CORPUSCULAR HEMOGLOBIN 30 pg (25-34); MEAN CORPUSCULAR HGB CONC 33 g/dL (32-36); MEAN CORPUSCULAR VOLUME 89 fL (80-99); MEAN PLATELET VOLUME 8.5 fL (9.0-12.2); MONOCYTES # (AUTO) 1.2 10^3/uL (0.0-1.0); MONOCYTES % (AUTO) 10 % (0-12); NEUTROPHILS # (AUTO) 7.6 10^3/uL (1.8-7.8); NEUTROPHILS % (AUTO) 63 % (42-75); PLATELET COUNT 335 10^3/uL (130-400); WHITE BLOOD COUNT 12.1 10^3/uL (4.3-11.0)
[2020-12-21 05:27] LABS: ALBUMIN 2.8 GM/DL (3.2-4.5); CHLORIDE 97 MMOL/L (98-107); POTASSIUM 4.3 MMOL/L (3.6-5.0); SODIUM 129 MMOL/L (135-145)
[2020-12-21 05:28] LABS: CALCIUM 7.5 MG/DL (8.5-10.1)
[2020-12-21 05:29] LABS: GLUCOSE 120 MG/DL (70-105); TOTAL PROTEIN 6.1 GM/DL (6.4-8.2)
[2020-12-21 05:30] VITALS: BP 112/53
[2020-12-21 05:30] LABS: CARBON DIOXIDE 21 MMOL/L (21-32)
[2020-12-21 05:31] LABS: BILIRUBIN,TOTAL 0.2 MG/DL (0.1-1.0)
[2020-12-21 05:33] LABS: ALKALINE PHOSPHATASE 102 U/L (40-136); CREATININE SERUM 0.82 MG/DL (0.60-1.30); GFR ESTIMATED > 60
[2020-12-21 05:34] LABS: BUN/CREATININE RATIO 18
[2020-12-21 05:36] LABS: ALANINE AMINOTRANSFERASE 34 U/L (0-55)
[2020-12-21] MEDS: BETHANECHOL 10 MG (URECHOLINE) TAB PO SCH ×4 (06:48→21:02)
[2020-12-21] MEDS: SUCRALFATE 1 GM (CARAFATE) TAB PO SCH ×4 (06:48→21:03)
[2020-12-21] MEDS: CATHETER FLUSH 10 ML SYR IV SCH ×3 (06:49→21:05)
--- NOTE | 2020-12-21 07:28 | PM&R Progress Note ---
Subjective HPI/CC On Admission Date Seen by Provider: Dec 21, 2020 Time Seen by Provider: 12:15 Subjective/Events-last exam 12/21/20: Patient doing well Labs reviewed CXR no acute abnl Pain improved Eating well 12/20/20: Increased work of breathing Xanax ordered CXR and labs ordered No sepsis ATX bilateral on CXR so increase use of IS No abx indicated at this time Flonase restarted Sister at bedside 12/19/20: Oxycodone maintained for pain Leg pain from muscle workouts No N/V 12/18/20: Pt doing very well Very much improved Family training will be started Ostomy has 500cc output 12/17/20: Urecholine started by Dr. Wright and Pt denies any significant new issues Pain is well controlled Improved 12/16/20: Ileostomy put out 800cc Hgb 8.4 Iron level will be ordered Sodium level 130 so will DC fluid restriction Overall much improved 12/15/20: Patient doing well Sleeps a lot Pain is improved Dr Wright managing retention 12/14/20: Flomax started Dr Wright ordered in/out caths prn Patient is doing better No falls Pain is controlled Wound vac in place 12/13/20: Voiding is an issue Retention requiring in/out cath Dr Wright appreciated Checked meds and labs 12/12/20: Patient doing well Ambulated in front of me with assistance No pain reported No new issues Fluid restriction noted 12/11/20: Patient doing well Sodium level 129 No pain reported Fluid restriction maintained Ileostomy bag no leak Wound vac still in place 12/10/20: Participation with therapy good just slow Parallel bars but could not stand Fluid restriction maintained 12/09/20: Patient feels good Hgb 9.0 Sodium 127 2 person assist still Output 600 in ileostomy Lovenox maintained 12/08/20: Patient feels good and feels stronger Hgb 8.9 Sodium level 127 Ileostomy functioning well but bag keep leaking Gluteus cleft stage 2 decubitus ulcer Review of Systems General: Fatigue Focused Exam Lactate Level 12/20/20 10:19: Lactic Acid Level 1.71 12/21/20 05:00: Lactic Acid Level 1.25 Lactic Acid Level Objective Exam Vital Signs Vital Signs Date Time Temp Pulse Resp B/P (MAP) Pulse Ox O2 Delivery O2 Flow Rate FiO2 12/21/20 16:00 36.8 90 20 100/49 (66) 93 Room Air Capillary Refill : General Appearance: No Apparent Distress, WD/WN, Chronically ill HEENT: PERRL/EOMI, Normal ENT Inspection, Pharynx Normal, Other (kluti kaah severe) Neck: Normal Inspection, Supple Respiratory: Normal Breath Sounds, No Accessory Muscle Use, No Respiratory Distress Cardiovascular: Regular Rate, Rhythm, No Edema Gastrointestinal: Normal Bowel Sounds, No Organomegaly, No Pulsatile Mass, Non Tender, Soft, Other (ileostomy) Back: Normal Inspection, No CVA Tenderness, No Vertebral Tenderness Extremity: Normal Inspection, Normal Range of Motion Neurologic/Psychiatric: Alert, Oriented x3, No Motor/Sensory Deficits, Normal Mood/Affect, paving bed maker II-XII Norm as Tested, Motor Weakness (3/5 all extremities) Skin: Normal Color, Warm/Dry, Other (Mild like abdominal incision C/D/I with wound vac in place. No surrounding redness. Left upper LANE drain with minimal Clear ss to serous drainage.) Lymphatic: No Adenopathy Results/Procedures Lab Laboratory Tests 12/21/20 05:00 Patient resulted labs reviewed. FIM Transfers Therapy Code Descriptions/Definitions Functional [place] Measure: 0=Not Assessed/NA 4=Minimal Assistance 1=Total Assistance 5=Supervision or Setup 2=Maximal Assistance 6=Modified [place] 3=Moderate Assistance 7=Complete IndependenceSCALE: Activities may be completed with or without assistive devices. 1-Vrcpozrgwa-mvfhaki completes the activity by him/herself with no assistance from a helper. 5-Set-up or Clean-up Assistance-helper sets up or cleans up; patient completes activity. [place] assists only prior to or following the activity. 4-Supervision or Touching Assistance-helper provides verbal cues and/or touching/steadying and/or contact guard assistance as patient completes activity. Assistance may be provided throughout the activity or intermittently. 3-Partial/Moderate Assistance-helper does LESS THAN HALF the effort. [place] li fts, holds or supports trunk or limbs, but provides less than half the effort. 2-Substantial/Maximal Assistance-helper does MORE THAN HALF the effort. [place] lifts or holds trunk or limbs and provides more than half the effort. 5-Gtyiqptzh-mlwbdg does ALL the effort. Patient does none of the effort to complete the activity. Or, the assistance of 2 or more helpers is required for the patient to complete the activity. If activity was not attempted, code reason: 7-Patient Refused. 9-Not Applicable-not attempted and the patient did not perform the activity before the current illness, exacerbation or injury. 10-Not Attempted due to Environmental Limitations-(lack of equipment, weather restraints, etc.). 88-Not Attempted due to Medical Conditions or Safety Concerns. Roll Left to Right (QC): 6 Sit to Lying (QC): 6 Sit to Stand (QC): 6 Chair/Jje-ov-Rvert Xfer(QC): 4 Car Transfer (QC): 88 Gait Training Does the Patient Walk?: Yes Distance: 10' Walk 10 feet (QC): 4 Walk 50 ft with 2 Turns(QC): 4 Walk 150 ft (QC): 88 Walking 10ft/uneven surface-QC: 88 Gait Persons Needed: 1 Gait Assistive Device: FWW Wheelchair Training Does the Pt Use a Wheelchair?: Yes Wheel 50 ft with 2 turns (QC): 4 Wheel 150 ft (QC): 5 Type of Wheelchair: Manual Stair Training #of Steps: 0 1 Step (curb) (QC): 88 4 Steps (QC): 88 12 Steps (QC): 88 Balance Picking up an Object (QC): 88 ADL-Treatment Eating (QC): 6 Oral Hygiene (QC): 6 Shower/Bathe Self (QC): 5 Upper Body Dressing (QC): 5 Lower Body Dressing (QC): 7 On/Off Footwear (QC): 5 Toileting Hygiene (QC): 4 (SBA) Toilet Transfer (QC): 4 (SBA) Assessment/Plan Assessment and Plan Assess & Plan/Chief Complaint Assessment: 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 Former smoker Severe presbycusis HTN Hyponatremia 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 Urinary retention 12/13/20 Plan: IRF protocol Monitor pain O2 Nebs IS Lovenox 12/08/20: Xanax ordered Ileostomy functioning well but bag leaking Decubitus ulcer management 12/09/20: Monitor fluid restriction Salt tablets Monitor pain Ileostomy function monitoring 12/10/20: Salt tablets Fluid restriction Monitor closely Intensive therapy 12/11/20: Continue fluid restriction Salt tablets Monitor pain 12/12/20: Ambulating well today Fantastic progress 12/13/20: Urinary retention Dr Wright Monitor closely 12/14/20: Flomax started Dr Wright appreciated Pain control 12/15/20: Improved Retention per Dr Wright Wound vac 12/16/20: In/Out cath Monitor pain Monitor for UTI 12/17/20: Urecholine In/Out cath Monitor closely 12/18/20: Family training Impressive function 12/19/20: Monitor closely Pain control Impressive recovery 12/20/20: Sepsis w/u Check CXR IS Xanax Flonase 12/21/20: Flonase improved status Pain control Increase nutrition (1) Myopathy (2) Ileus following gastrointestinal surgery (3) S/P right hemicolectomy (4) Presbycusis of both ears (5) Ileostomy in place (6) Anemia due to acute blood loss (7) Colon cancer (8) Hyponatremia (9) COPD (chronic obstructive pulmonary disease) (10) DVT prophylaxis WILFREDO MARTÍNEZ DO Dec 21, 2020 07:28
--- NOTE | 2020-12-21 07:42 | Diagnostic Imaging Report ---
EXAMINATION: Chest radiograph, portable AP view. DATE: 12/21/2020 7:25 AM INDICATION: 75-year-old female, follow-up pneumonia. COMPARISON: December 20, 2020. FINDINGS: The right-sided PICC line tip overlies the mid SVC. Stable overall appearance of the cardiomediastinal silhouette. There is no identified pneumothorax. There is no large pleural effusion. There is no identified interval focal airspace consolidation. IMPRESSION: 1. No identified acute cardiopulmonary abnormality. Dictated by: Dictated on workstation # [id number]
[2020-12-21] MEDS: TRELEGY ELLIPTA IH SCH (07:54)
[2020-12-21] MEDS: meTOprolol TARTRATE 25 MG (LOPRESSOR) TABLET PO SCH ×2 (09:46→21:03)
[2020-12-21] MEDS: NICOTINE 14 MG (NICODERM) PATCH TD SCH (09:47)
[2020-12-21] MEDS: METOCLOPRAMIDE 5 MG (REGLAN) TAB PO SCH ×2 (09:47→21:03)
[2020-12-21] MEDS: amLODIPine 10 MG (NORVASC) TAB PO SCH (09:47)
[2020-12-21] MEDS: lisINopril 20 MG (PRINIVIL) TABLET PO SCH (09:47)
[2020-12-21] MEDS: PANTOPRAZOLE 40 MG (PROTONIX) TAB PO SCH ×2 (09:47→21:03)
[2020-12-21] MEDS: SENNA W/DOCUSATE (SENOKOT S) TABLET PO SCH ×3 (09:51→21:30)
[2020-12-21] MEDS: polyethylene glycoL POWDER 17 GM (MIRALAX) PACK PO SCH ×2 (09:52→21:05)
[2020-12-21] MEDS: DOCUSATE SODIUM 100 MG (COLACE) CAP PO SCH ×2 (09:52→21:16)
[2020-12-21] MEDS: NICOTINE PATCH REMOVAL TP SCH (09:53)
[2020-12-21] MEDS: FLUTICASONE NASAL SPRAY (FLONASE) 16 GM BTL NS SCH (09:53)
[2020-12-21] MEDS: SODIUM CHLORIDE 1 GM TABLET PO SCH ×2 (09:59→21:03)
[2020-12-21] MEDS: HYDROcodone/APAP 7.5MG-325 MG/15 ML (LORTAB) UDC PO PRN (10:35)
--- NOTE | 2020-12-21 12:02 | Physical Therapy Daily Note ---
PT Daily Note-Current Subjective Pt in bed, agreeable. Pain Numeric Pain Scale: 8 Location Body Site: Thigh Pain Description: Ache Comment: (B) thigh pain with exercise Mental Status Patient Orientation: Person, Place, Time, Situation wound vac Transfers SCALE: Activities may be completed with or without assistive devices. 3-Yijnmnffuo-hpksugq completes the activity by him/herself with no assistance from a helper. 5-Set-up or Clean-up Assistance-helper sets up or cleans up; patient completes activity. [place] assists only prior to or following the activity. 4-Supervision or Touching Assistance-helper provides verbal cues and/or touching/steadying and/or contact guard assistance as patient completes activity. Assistance may be provided throughout the activity or intermittently. 3-Partial/Moderate Assistance-helper does LESS THAN HALF the effort. [place] lifts, holds or supports trunk or limbs, but provides less than half the effort. 2-Substantial/Maximal Assistance-helper does MORE THAN HALF the effort. [place] lifts or holds trunk or limbs and provides more than half the effort. 6-Vrkdtpeck-qelaly does ALL the effort. Patient does none of the effort to com plete the activity. Or, the assistance of 2 or more helpers is required for the patient to complete the activity. If activity was not attempted, code reason: 7-Patient Refused. 9-Not Applicable-not attempted and the patient did not perform the activity before the current illness, exacerbation or injury. 10-Not Attempted due to Environmental Limitations-(lack of equipment, weather restraints, etc.). 88-Not Attempted due to Medical Conditions or Safety Concerns. Sit to Lying (QC): 5 Lying to Sitting/Side of Bed(Q: 5 Sit to Stand (QC): 5 Toilet Transfer (QC): 4 Weight Bearing Full Weight Bearing Full Weight Bearing Gait Training Does the Patient Walk?: Yes Distance: 60, 80, 80 Walk 10 feet (QC): 4 Walk 50 ft with 2 Turns(QC): 4 Walk 150 ft (QC): 88 Gait Persons Needed: 1 Gait Assistive Device: FWW Pt ambulated 60'/80'/80' with seated recovery breaks. Pt ambulated with CGA with FWW. Flexed posture, reports SOB. O2 sats 88% after first bout with recovery to 96% with cues for pursed lip breathing. Sats remained above 90% on RA with additional 2 bouts of ambulation. Treatments Ambulation with FWW. Returned to bed with all needs met, positioned on side at Pt request Assessment Current Status: Good Progress Pt tolerated well. Decreased functional activity tolerance but improving. PT Short Term Goals Short Term Goals Time Frame: Dec 21, 2020 Roll Left & Right: 4 Sit to lyin Lying to sitting on side of be: 4 Sit to stand: 4 Chair/zgm-zg-fcwap transfer: 4 Toilet transfer: 4 Car transfer: 3 Walk 10 feet: 4 Walk 50 feet with two turns: 4 Walk 150 feet: 4 Walking 10ft on uneven surface: 4 1 step (curb): 4 Does pt use a wc or scooter: Yes Wheel 50ft w/2 turns: 4 Wheel 150 feet: 4 Type: Manual PT [facility] Goals Resource Forester Goals PT [facility] Goals Time Frame: Jan 04, 2021 Roll Left & Right (QC): 6 Sit to Lying (QC): 6 Lying-Sitting on Side/Bed(QC): 6 Sit to Stand (QC): 6 Chair/Ila-ld-Etxve Xfer(QC): 6 Toilet Transfer (QC): 6 Car Transfer (QC): 5 Does the Patient Walk: Yes Walk 10 feet (QC): 6 Walk 50ft with 2 Turns (QC): 6 Walk 150 ft (QC): 5 Walking 10ft on Uneven Surface: 6 1 Step (curb) (QC): 5 4 Steps (QC): 5 12 Steps (QC): 4 Picking up an Object (QC): 4 Does the Pt use WC or Scooter?: Yes Wheel 50 feet with 2 turns (QC: 6 Type: Manual Wheel 150 feet: 6 Type: Manual PT Plan Problem List Problem List: Activity Tolerance, Functional Strength, Safety, Balance, Gait, Transfer, Bed Mobility, ROM Treatment/Plan Treatment Plan: Continue Plan of Care Treatment Plan: Bed Mobility, Concurrent Therapy, Functional Activity Palak, Functional Strength, Group Therapy, Gait, Safety, Therapeutic Exercise, Transfers Treatment Duration: Jan 04, 2021 Frequency: At least 5 of 7 days/Wk (IRF) Estimated Hrs Per Day: 1.5 hours per day Patient and/or Family Agrees t: Yes Time/GCodes Time In: 1022 Time Out: 1045 Total Billed Treatment Time: 23 Total Billed Treatment 1, FA x 23' ALEN CONTRERAS DPT Dec 21, 2020 12:02
[2020-12-21 16:00] VITALS: BP_SYST 100; BP_SYST 107; BP_DIAS 49; BP_DIAS 51
[2020-12-21] MEDS: TAMSULOSIN 0.4 MG (FLOMAX) CAP PO SCH (17:52)
[2020-12-21] MEDS: MELATONIN 3 MG TABLET PO PRN (21:03)
[2020-12-21] MEDS: ENOXAPARIN 40 MG/0.4 ML (LOVENOX) SYR SC SCH (21:04)
[2020-12-22] MEDS: BETHANECHOL 10 MG (URECHOLINE) TAB PO SCH ×4 (05:58→21:30)
[2020-12-22] MEDS: CATHETER FLUSH 10 ML SYR IV SCH ×3 (05:59→21:31)
[2020-12-22] MEDS: SUCRALFATE 1 GM (CARAFATE) TAB PO SCH ×4 (05:59→21:30)
[2020-12-22 06:00] VITALS: BP 105/53
[2020-12-22] MEDS: lisINopril 20 MG (PRINIVIL) TABLET PO SCH (09:08)
[2020-12-22] MEDS: amLODIPine 10 MG (NORVASC) TAB PO SCH (09:08)
[2020-12-22] MEDS: METOCLOPRAMIDE 5 MG (REGLAN) TAB PO SCH ×2 (09:08→21:30)
[2020-12-22] MEDS: SODIUM CHLORIDE 1 GM TABLET PO SCH ×2 (09:08→21:30)
[2020-12-22] MEDS: meTOprolol TARTRATE 25 MG (LOPRESSOR) TABLET PO SCH ×2 (09:08→21:30)
[2020-12-22] MEDS: NICOTINE 14 MG (NICODERM) PATCH TD SCH (09:08)
[2020-12-22] MEDS: PANTOPRAZOLE 40 MG (PROTONIX) TAB PO SCH ×2 (09:08→21:29)
[2020-12-22] MEDS: FLUTICASONE NASAL SPRAY (FLONASE) 16 GM BTL NS SCH (09:09)
[2020-12-22 09:10] VITALS: BP 129/58
[2020-12-22] MEDS: NICOTINE PATCH REMOVAL TP SCH (09:13)
[2020-12-22] MEDS: polyethylene glycoL POWDER 17 GM (MIRALAX) PACK PO SCH ×2 (09:14→21:30)
[2020-12-22] MEDS: SENNA W/DOCUSATE (SENOKOT S) TABLET PO SCH (09:14)
[2020-12-22] MEDS: DOCUSATE SODIUM 100 MG (COLACE) CAP PO SCH ×2 (09:14→21:30)
[2020-12-22] MEDS: TRELEGY ELLIPTA IH SCH (09:55)
--- NOTE | 2020-12-22 12:48 | PM&R Progress Note ---
Subjective HPI/CC On Admission Date Seen by Provider: Dec 22, 2020 Time Seen by Provider: 12:45 Subjective/Events-last exam 12/22/20: Doing very well Granddaughter came to visit from [place] Only taking 1 pain pill per day Ileostomy bag changed LANE drain only 5cc Bladder scan 200cc 12/21/20: Patient doing well Labs reviewed CXR no acute abnl Pain improved Eating well 12/20/20: Increased work of breathing Xanax ordered CXR and labs ordered No sepsis ATX bilateral on CXR so increase use of IS No abx indicated at this time Flonase restarted Sister at bedside 12/19/20: Oxycodone maintained for pain Leg pain from muscle workouts No N/V 12/18/20: Pt doing very well Very much improved Family training will be started Ostomy has 500cc output 12/17/20: Urecholine started by Dr. Wright and Pt denies any significant new issues Pain is well controlled Improved 12/16/20: Ileostomy put out 800cc Hgb 8.4 Iron level will be ordered Sodium level 130 so will DC fluid restriction Overall much improved 12/15/20: Patient doing well Sleeps a lot Pain is improved Dr Wright managing retention 12/14/20: Flomax started Dr Wright ordered in/out caths prn Patient is doing better No falls Pain is controlled Wound vac in place 12/13/20: Voiding is an issue Retention requiring in/out cath Dr Wright appreciated Checked meds and labs 12/12/20: Patient doing well Ambulated in front of me with assistance No pain reported No new issues Fluid restriction noted 12/11/20: Patient doing well Sodium level 129 No pain reported Fluid restriction maintained Ileostomy bag no leak Wound vac still in place 12/10/20: Participation with therapy good just slow Parallel bars but could not stand Fluid restriction maintained 12/09/20: Patient feels good Hgb 9.0 Sodium 127 2 person assist still Output 600 in ileostomy Lovenox maintained 12/08/20: Patient feels good and feels stronger Hgb 8.9 Sodium level 127 Ileostomy functioning well but bag keep leaking Gluteus cleft stage 2 decubitus ulcer Review of Systems General: Fatigue, Malaise Pulmonary: Dyspnea Genitourinary: Retention Focused Exam Lactate Level 12/20/20 10:19: Lactic Acid Level 1.71 12/21/20 05:00: Lactic Acid Level 1.25 Objective Exam Vital Signs Vital Signs Date Time Temp Pulse Resp B/P (MAP) Pulse Ox O2 Delivery O2 Flow Rate FiO2 12/22/20 09:55 92 Room Air 12/22/20 09:10 97 22 129/58 (81) 12/22/20 06:00 36.8 12/21/20 20:30 92.00 Capillary Refill : General Appearance: No Apparent Distress, WD/WN, Chronically ill HEENT: PERRL/EOMI, Normal ENT Inspection, Pharynx Normal, Other ([place] severe) Neck: Normal Inspection, Supple Respiratory: Normal Breath Sounds, No Accessory Muscle Use, No Respiratory Distress Cardiovascular: Regular Rate, Rhythm, No Edema Gastrointestinal: Normal Bowel Sounds, No Organomegaly, No Pulsatile Mass, Non Tender, Soft, Other (ileostomy) Back: Normal Inspection, No CVA Tenderness, No Vertebral Tenderness Extremity: Normal Inspection, Normal Range of Motion Neurologic/Psychiatric: Alert, Oriented x3, No Motor/Sensory Deficits, Normal Mood/Affect, teacher aide clerical II-XII Norm as Tested, Motor Weakness (3/5 all extremities) Skin: Normal Color, Warm/Dry, Other (Mild like abdominal incision C/D/I with wound vac in place. No surrounding redness. Left upper LANE drain with minimal Clear ss to serous drainage.) Lymphatic: No Adenopathy Results/Procedures Lab Patient resulted labs reviewed. FIM Transfers Therapy Code Descriptions/Definitions Functional [place] Measure: 0=Not Assessed/NA 4=Minimal Assistance 1=Total Assistance 5=Supervision or Setup 2=Maximal Assistance 6=Modified [place] 3=Moderate Assistance 7=Complete IndependenceSCALE: Activities may be completed with or without assistive devices. 7-Jgwtzyduum-ikhqgnx completes the activity by him/herself with no assistance from a helper. 5-Set-up or Clean-up Assistance-helper sets up or cleans up; patient completes activity. [place] assists only prior to or following the activity. 4-Supervision or Touching Assistance-helper provides verbal cues and/or touching/steadying and/or contact guard assistance as patient completes activity. Assistance may be provided throughout the activity or intermittently. 3-Partial/Moderate Assistance-helper does LESS THAN HALF the effort. [place] lifts, holds or supports trunk or limbs, but provides less than half the effort. 2-Substantial/Maximal Assistance-helper does MORE THAN HALF the effort. [place] l ifts or holds trunk or limbs and provides more than half the effort. 9-Qqtmxodxd-dckaqz does ALL the effort. Patient does none of the effort to complete the activity. Or, the assistance of 2 or more helpers is required for the patient to complete the activity. If activity was not attempted, code reason: 7-Patient Refused. 9-Not Applicable-not attempted and the patient did not perform the activity before the current illness, exacerbation or injury. 10-Not Attempted due to Environmental Limitations-(lack of equipment, weather restraints, etc.). 88-Not Attempted due to Medical Conditions or Safety Concerns. Roll Left to Right (QC): 6 Sit to Lying (QC): 5 Sit to Stand (QC): 5 Chair/Aqi-lc-Fowxx Xfer(QC): 4 Car Transfer (QC): 88 Gait Training Does the Patient Walk?: Yes Distance: 60, 80, 80 Walk 10 feet (QC): 4 Walk 50 ft with 2 Turns(QC): 4 Walk 150 ft (QC): 88 Walking 10ft/uneven surface-QC: 88 Gait Persons Needed: 1 Gait Assistive Device: FWW Wheelchair Training Does the Pt Use a Wheelchair?: Yes Wheel 50 ft with 2 turns (QC): 4 Wheel 150 ft (QC): 5 Type of Wheelchair: Manual Stair Training #of Steps: 0 1 Step (curb) (QC): 88 4 Steps (QC): 88 12 Steps (QC): 88 Balance Picking up an Object (QC): 88 ADL-Treatment Eating (QC): 6 Oral Hygiene (QC): 6 Shower/Bathe Self (QC): 5 Upper Body Dressing (QC): 5 Lower Body Dressing (QC): 7 On/Off Footwear (QC): 5 Toileting Hygiene (QC): 4 (SBA) Toilet Transfer (QC): 4 (SBA) Assessment/Plan Assessment and Plan Assess & Plan/Chief Complaint Assessment: 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 Former smoker Severe presbycusis HTN Hyponatremia 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 Urinary retention 12/13/20 Plan: IRF protocol Monitor pain O2 Nebs IS Lovenox 12/08/20: Xanax ordered Ileostomy functioning well but bag leaking Decubitus ulcer management 12/09/20: Monitor fluid restriction Salt tablets Monitor pain Ileostomy function monitoring 12/10/20: Salt tablets Fluid restriction Monitor closely Intensive therapy 12/11/20: Continue fluid restriction Salt tablets Monitor pain 12/12/20: Ambulating well today Fantastic progress 12/13/20: Urinary retention Dr Wright Monitor closely 12/14/20: Flomax started Dr Wright appreciated Pain control 12/15/20: Improved Retention per Dr Wright Wound vac 12/16/20: In/Out cath Monitor pain Monitor for UTI 12/17/20: Urecholine In/Out cath Monitor closely 12/18/20: Family training Impressive function 12/19/20: Monitor closely Pain control Impressive recovery 12/20/20: Sepsis w/u Check CXR IS Xanax Flonase 12/21/20: Flonase improved status Pain control Increase nutrition 12/22/20: Decrease pain meds Monitor closely Bladder scan (1) Myopathy (2) Ileus following gastrointestinal surgery (3) S/P right hemicolectomy (4) Presbycusis of both ears (5) Ileostomy in place (6) Anemia due to acute blood loss (7) Colon cancer (8) Hyponatremia (9) COPD (chronic obstructive pulmonary disease) (10) DVT prophylaxis WILFREDO MARTÍNEZ DO Dec 22, 2020 12:48
[2020-12-22 17:10] VITALS: BP 114/56
[2020-12-22] MEDS: TAMSULOSIN 0.4 MG (FLOMAX) CAP PO SCH (17:20)
[2020-12-22] MEDS: MELATONIN 3 MG TABLET PO PRN (21:30)
[2020-12-22] MEDS: ENOXAPARIN 40 MG/0.4 ML (LOVENOX) SYR SC SCH (21:30)
[2020-12-23] VITALS (8 sets, daily range): BP systolic 109–132; BP diastolic 55–65
[2020-12-23] MEDS: BETHANECHOL 10 MG (URECHOLINE) TAB PO SCH (05:36)
[2020-12-23] MEDS: SUCRALFATE 1 GM (CARAFATE) TAB PO SCH ×4 (05:36→20:55)
[2020-12-23] MEDS: CATHETER FLUSH 10 ML SYR IV SCH ×3 (05:36→20:57)
[2020-12-23 06:03] LABS: BASOPHILS # (AUTO) 0.1 10^3/uL (0.0-0.1); BASOPHILS % (AUTO) 1 % (0-10); EOSINOPHILS # (AUTO) 0.2 10^3/uL (0.0-0.3); EOSINOPHILS % (AUTO) 2 % (0-10); LYMPHOCYTES # (AUTO) 3.4 10^3/uL (1.0-4.0); LYMPHOCYTES % (AUTO) 26 % (12-44); MEAN CORPUSCULAR HEMOGLOBIN 30 pg (25-34); MEAN CORPUSCULAR HGB CONC 33 g/dL (32-36); MEAN CORPUSCULAR VOLUME 91 fL (80-99); MEAN PLATELET VOLUME 8.7 fL (9.0-12.2); MONOCYTES # (AUTO) 1.3 10^3/uL (0.0-1.0); MONOCYTES % (AUTO) 10 % (0-12); NEUTROPHILS # (AUTO) 7.8 10^3/uL (1.8-7.8); NEUTROPHILS % (AUTO) 59 % (42-75); PLATELET COUNT 408 10^3/uL (130-400); WHITE BLOOD COUNT 13.2 10^3/uL (4.3-11.0)
[2020-12-23 06:25] LABS: CHLORIDE 100 MMOL/L (98-107); POTASSIUM 4.8 MMOL/L (3.6-5.0); SODIUM 131 MMOL/L (135-145)
[2020-12-23 06:26] LABS: CALCIUM 7.8 MG/DL (8.5-10.1); HEMOGLOBIN 6.2 g/dL (11.5-16.0)
[2020-12-23 06:27] LABS: GLUCOSE 113 MG/DL (70-105); HEMATOCRIT 19 % (35-52); TOTAL PROTEIN 6.8 GM/DL (6.4-8.2)
[2020-12-23 06:28] LABS: CARBON DIOXIDE 20 MMOL/L (21-32)
[2020-12-23 06:29] LABS: BILIRUBIN,TOTAL 0.2 MG/DL (0.1-1.0)
[2020-12-23 06:31] LABS: ALKALINE PHOSPHATASE 121 U/L (40-136); CREATININE SERUM 0.82 MG/DL (0.60-1.30); GFR ESTIMATED > 60
[2020-12-23 06:32] LABS: BUN/CREATININE RATIO 26
[2020-12-23 06:34] LABS: ALANINE AMINOTRANSFERASE 37 U/L (0-55)
[2020-12-23] MEDS ORDERED: FUROSEMIDE 40 MG/4 ML INJ (LASIX) IVP ONE (06:45)
[2020-12-23] MEDS ORDERED: NS IV 500 ML 500 ML IV SCH ×2 (06:45)
[2020-12-23] MEDS: TRELEGY ELLIPTA IH SCH (07:20)
[2020-12-23] MEDS: meTOprolol TARTRATE 25 MG (LOPRESSOR) TABLET PO SCH ×2 (08:05→20:56)
[2020-12-23] MEDS: PANTOPRAZOLE 40 MG (PROTONIX) TAB PO SCH ×2 (08:05→20:56)
[2020-12-23] MEDS: NICOTINE PATCH REMOVAL TP SCH (08:06)
[2020-12-23] MEDS: NICOTINE 14 MG (NICODERM) PATCH TD SCH (08:06)
[2020-12-23] MEDS: amLODIPine 10 MG (NORVASC) TAB PO SCH (08:06)
[2020-12-23] MEDS: METOCLOPRAMIDE 5 MG (REGLAN) TAB PO SCH ×2 (08:06→20:56)
[2020-12-23] MEDS: lisINopril 20 MG (PRINIVIL) TABLET PO SCH (08:06)
[2020-12-23] MEDS: DOCUSATE SODIUM 100 MG (COLACE) CAP PO SCH ×2 (08:07→21:00)
[2020-12-23] MEDS: SENNA W/DOCUSATE (SENOKOT S) TABLET PO SCH ×2 (08:07→21:00)
[2020-12-23] MEDS: polyethylene glycoL POWDER 17 GM (MIRALAX) PACK PO SCH ×2 (08:07→21:00)
[2020-12-23] MEDS: FLUTICASONE NASAL SPRAY (FLONASE) 16 GM BTL NS SCH (08:08)
[2020-12-23] MEDS: SODIUM CHLORIDE 1 GM TABLET PO SCH ×2 (08:17→21:00)
--- NOTE | 2020-12-23 09:30 | Physical Therapy Daily Note ---
PT Daily Note-Current Subjective Pt. agrees to Rx. Asks "why does my blood keep going so low"? This question was referred to nursing and Asks for ice chips very often, educated pt. that fluid restriction means keeping ice chips to minimum as well more than likely Pain Location: No Pain Reported Appearance dyspnea and mouth breathing noted Mental Status Patient Orientation: Normal For Age Transfers SCALE: Activities may be completed with or without assistive devices. 8-Srmegnqcob-zvwjeuh completes the activity by him/herself with no assistance from a helper. 5-Set-up or Clean-up Assistance-helper sets up or cleans up; patient completes activity. [place] assists only prior to or following the activity. 4-Supervision or Touching Assistance-helper provides verbal cues and/or touching/steadying and/or contact guard assistance as patient completes activity. Assistance may be provided throughout the activity or intermittently. 3-Partial/Moderate Assistance-helper does LESS THAN HALF the effort. [place] lifts, holds or supports trunk or limbs, but provides less than half the effort. 2-Substantial/Maximal Assistance-helper does MORE THAN HALF the effort. [place] lifts or holds trunk or limbs and provides more than half the effort. 8-Dsusruxpo-hmyoao does ALL the effort. Patient does none of the effort to complete the activity. Or, the assistance of 2 or more helpers is required for the patient to complete the activity. If activity was not attempted, code reason: 7-Patient Refused. 9-Not Applicable-not attempted and the patient did not perform the activity before the current illness, exacerbation or injury. 10-Not Attempted due to Environmental Limitations-(lack of equipment, weather restraints, etc.). 88-Not Attempted due to Medical Conditions or Safety Concerns. Roll Left & Right (QC): 6 Sit to Lying (QC): 6 Sit to Stand (QC): 5 Chair/Kpt-uu-Einka Xfer(QC): 4 Toilet Transfer (QC): 5 Weight Bearing Full Weight Bearing Full Weight Bearing Gait Training Does the Patient Walk?: Yes Gait Assistive Device: FWW pt. ambulated to and from bathroom approx 35 ft FWW CGA , no jl LOB Exercises Supine Ex: Bridging, Ankle pumps, Quad Set, Rolling, Glut sets, Heel Slides, Short Arc Quads, Scooting, Straight leg raise, Hip abd/add Supine Reps: 15 Seated Therapy Exercises: Ankle pumps, Sit to stand, Long arc quads, Hip flexion Seated Reps: 12 Treatments co Rx OT PT 15 for gait and toileting, pt. with low hgb but managed well, O2 sats on rm air >90% Assessment Current Status: Fair Progress hgb at 6.2, minimal and guarded activity to pt. tolerance and careful monitoring of O2 sats and heart rate with activity PT Short Term Goals Short Term Goals Time Frame: Dec 21, 2020 Roll Left & Right: 4 Sit to lyin Lying to sitting on side of be: 4 Sit to stand: 4 Chair/zqn-tx-jachx transfer: 4 Toilet transfer: 4 Car transfer: 3 Walk 10 feet: 4 Walk 50 feet with two turns: 4 Walk 150 feet: 4 Walking 10ft on uneven surface: 4 1 step (curb): 4 Does pt use a wc or scooter: Yes Wheel 50ft w/2 turns: 4 Wheel 150 feet: 4 Type: Manual PT Care Home Goals Care Home Goals PT Optical Manager Goals Time Frame: Jan 04, 2021 Roll Left & Right (QC): 6 Sit to Lying (QC): 6 Lying-Sitting on Side/Bed(QC): 6 Sit to Stand (QC): 6 Chair/Ggj-kn-Izahy Xfer(QC): 6 Toilet Transfer (QC): 6 Car Transfer (QC): 5 Does the Patient Walk: Yes Walk 10 feet (QC): 6 Walk 50ft with 2 Turns (QC): 6 Walk 150 ft (QC): 5 Walking 10ft on Uneven Surface: 6 1 Step (curb) (QC): 5 4 Steps (QC): 5 12 Steps (QC): 4 Picking up an Object (QC): 4 Does the Pt use WC or Scooter?: Yes Wheel 50 feet with 2 turns (QC: 6 Type: Manual Wheel 150 feet: 6 Type: Manual PT Plan Treatment/Plan Treatment Plan: Continue Plan of Care Treatment Plan: Bed Mobility, Concurrent Therapy, Functional Activity [place], Functional Strength, Group Therapy, Gait, Safety, Therapeutic Exercise, Transfers Treatment Duration: Jan 04, 2021 Frequency: At least 5 of 7 days/Wk (IRF) Estimated Hrs Per Day: 1.5 hours per day Patient and/or Family Agrees t: Yes Safety Risks/Education Patient Education: Gait Training, Transfer Techniques, Correct Positioning, Disease Process, Safety Issues Teaching Recipient: Patient Teaching Methods: Demonstration, Discussion Response to Teaching: Verbalize Understanding, Return Demonstration, Reinforcement Needed Time/GCodes Time In: 845 Time Out: 930 Total Billed Treatment Time: 45 Total Billed Treatment 1,FA20m,EX25m co Rx PT OT 15m DUSTIN MARSH ENVIRONMENTAL REMEDIATION CONSULTANT Dec 23, 2020 09:30
--- NOTE | 2020-12-23 10:20 | Progress Note - Urology ---
Progress Note-Urology Progress Notes/Assess & Plan Progress/Assessment & Plan PVR IN THE 200 RANGE. TOLERATED URECHOLINE WELL. WE WILL INCREASE TO 25 AC AND HS SLY FORRESTER MD Dec 23, 2020 10:20
--- NOTE | 2020-12-23 10:39 | PM&R Progress Note ---
Subjective HPI/CC On Admission Date Seen by Provider: Dec 23, 2020 Time Seen by Provider: 10:30 Subjective/Events-last exam 12/23/20: Hgb 6.2 today so will give two units of blood Pt is feeling pretty good I updated her on why anemia occurs during critical illness Increasing Urecholine to 25 Mg before meals and at bedtime per Dr. Wright because she is still retaining urine 12/22/20: Doing very well Granddaughter came to visit from [place] Only taking 1 pain pill per day Ileostomy bag changed LANE drain only 5cc Bladder scan 200cc 12/21/20: Patient doing well Labs reviewed CXR no acute abnl Pain improved Eating well 12/20/20: Increased work of breathing Xanax ordered CXR and labs ordered No sepsis ATX bilateral on CXR so increase use of IS No abx indicated at this time Flonase restarted Sister at bedside 12/19/20: Oxycodone maintained for pain Leg pain from muscle workouts No N/V 12/18/20: Pt doing very well Very much improved Family training will be started Ostomy has 500cc output 12/17/20: Urecholine started by Dr. Wright and Pt denies any significant new issues Pain is well controlled Improved 12/16/20: Ileostomy put out 800cc Hgb 8.4 Iron level will be ordered Sodium level 130 so will DC fluid restriction Overall much improved 12/15/20: Patient doing well Sleeps a lot Pain is improved Dr Wright managing retention 12/14/20: Flomax started Dr Wright ordered in/out caths prn Patient is doing better No falls Pain is controlled Wound vac in place 12/13/20: Voiding is an issue Retention requiring in/out cath Dr Wright appreciated Checked meds and labs 12/12/20: Patient doing well Ambulated in front of me with assistance No pain reported No new issues Fluid restriction noted 12/11/20: Patient doing well Sodium level 129 No pain reported Fluid restriction maintained Ileostomy bag no leak Wound vac still in place 12/10/20: Participation with therapy good just slow Parallel bars but could not stand Fluid restriction maintained 12/09/20: Patient feels good Hgb 9.0 Sodium 127 2 person assist still Output 600 in ileostomy Lovenox maintained 12/08/20: Patient feels good and feels stronger Hgb 8.9 Sodium level 127 Ileostomy functioning well but bag keep leaking Gluteus cleft stage 2 decubitus ulcer Review of Systems General: Fatigue, Malaise Neurological: Weakness Focused Exam Lactate Level Objective Exam Vital Signs Vital Signs Date Time Temp Pulse Resp B/P (MAP) Pulse Ox O2 Delivery O2 Flow Rate FiO2 12/24/20 05:15 37.6 95 20 128/58 (81) 94 Room Air 12/21/20 20:30 92.00 Capillary Refill : General Appearance: No Apparent Distress, WD/WN, Chronically ill HEENT: PERRL/EOMI, Normal ENT Inspection, Pharynx Normal, Other ([place] severe) Neck: Normal Inspection, Supple Respiratory: Normal Breath Sounds, No Accessory Muscle Use, No Respiratory Distress Cardiovascular: Regular Rate, Rhythm, No Edema Gastrointestinal: Normal Bowel Sounds, No Organomegaly, No Pulsatile Mass, Non Tender, Soft, Other (ileostomy) Back: Normal Inspection, No CVA Tenderness, No Vertebral Tenderness Extremity: Normal Inspection, Normal Range of Motion Neurologic/Psychiatric: Alert, Oriented x3, No Motor/Sensory Deficits, Normal Mood/Affect, eating disorder psychologist II-XII Norm as Tested, Motor Weakness (3/5 all extremities) Skin: Normal Color, Warm/Dry, Other (Mild like abdominal incision C/D/I with wound vac in place. No surrounding redness. Left upper LANE drain with minimal Clear ss to serous drainage.) Lymphatic: No Adenopathy Results/Procedures Lab Laboratory Tests 12/23/20 05:45 Patient resulted labs reviewed. FIM Transfers Therapy Code Descriptions/Definitions Functional [place] Measure: 0=Not Assessed/NA 4=Minimal Assistance 1=Total Assistance 5=Supervision or Setup 2=Maximal Assistance 6=Modified [place] 3=Moderate Assistance 7=Complete IndependenceSCALE: Activities may be completed with or without assistive devices. 2-Ammwbputvv-lztabpl completes the activity by him/herself with no assistance from a helper. 5-Set-up or Clean-up Assistance-helper sets up or cleans up; patient completes activity. [place] assists only prior to or following the activity. 4-Supervision or Touching Assistance-helper provides verbal cues and/or touching/steadying and/or contact guard assistance as patient completes activit y. Assistance may be provided throughout the activity or intermittently. 3-Partial/Moderate Assistance-helper does LESS THAN HALF the effort. [place] lifts, holds or supports trunk or limbs, but provides less than half the effort. 2-Substantial/Maximal Assistance-helper does MORE THAN HALF the effort. [place] lifts or holds trunk or limbs and provides more than half the effort. 9-Zjecgkjqf-zbvgrf does ALL the effort. Patient does none of the effort to complete the activity. Or, the assistance of 2 or more helpers is required for the patient to complete the activity. If activity was not attempted, code reason: 7-Patient Refused. 9-Not Applicable-not attempted and the patient did not perform the activity before the current illness, exacerbation or injury. 10-Not Attempted due to Environmental Limitations-(lack of equipment, weather restraints, etc.). 88-Not Attempted due to Medical Conditions or Safety Concerns. Roll Left to Right (QC): 6 Sit to Lying (QC): 6 Sit to Stand (QC): 5 Chair/Ybf-mt-Kkcmz Xfer(QC): 4 Car Transfer (QC): 88 Gait Training Does the Patient Walk?: Yes Distance: 60, 80, 80 Walk 10 feet (QC): 4 Walk 50 ft with 2 Turns(QC): 4 Walk 150 ft (QC): 88 Walking 10ft/uneven surface-QC: 88 Gait Persons Needed: 1 Gait Assistive Device: FWW Wheelchair Training Does the Pt Use a Wheelchair?: Yes Wheel 50 ft with 2 turns (QC): 4 Wheel 150 ft (QC): 5 Type of Wheelchair: Manual Stair Training #of Steps: 0 1 Step (curb) (QC): 88 4 Steps (QC): 88 12 Steps (QC): 88 Balance Picking up an Object (QC): 88 ADL-Treatment Eating (QC): 6 Oral Hygiene (QC): 6 Shower/Bathe Self (QC): 5 Upper Body Dressing (QC): 5 Lower Body Dressing (QC): 7 On/Off Footwear (QC): 5 Toileting Hygiene (QC): 4 (SBA) Toilet Transfer (QC): 4 (SBA) Assessment/Plan Assessment and Plan Assess & Plan/Chief Complaint Assessment: 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 Former smoker Severe presbycusis HTN Hyponatremia 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 Urinary retention 12/13/20 Plan: IRF protocol Monitor pain O2 Nebs IS Lovenox 12/08/20: Xanax ordered Ileostomy functioning well but bag leaking Decubitus ulcer management 12/09/20: Monitor fluid restriction Salt tablets Monitor pain Ileostomy function monitoring 12/10/20: Salt tablets Fluid restriction Monitor closely Intensive therapy 12/11/20: Continue fluid restriction Salt tablets Monitor pain 12/12/20: Ambulating well today Fantastic progress 12/13/20: Urinary retention Dr Wright Monitor closely 12/14/20: Flomax started Dr Wright appreciated Pain control 12/15/20: Improved Retention per Dr Wright Wound vac 12/16/20: In/Out cath Monitor pain Monitor for UTI 12/17/20: Urecholine In/Out cath Monitor closely 12/18/20: Family training Impressive function 12/19/20: Monitor closely Pain control Impressive recovery 12/20/20: Sepsis w/u Check CXR IS Xanax Flonase 12/21/20: Flonase improved status Pain control Increase nutrition 12/22/20: Decrease pain meds Monitor closely Bladder scan 12/23/20: 2 units of blood Hold therapy today due to transfusions Monitor progress (1) Myopathy (2) Ileus following gastrointestinal surgery (3) S/P right hemicolectomy (4) Presbycusis of both ears (5) Ileostomy in place (6) Anemia due to acute blood loss (7) Colon cancer (8) Hyponatremia (9) COPD (chronic obstructive pulmonary disease) (10) DVT prophylaxis WILFREDO MARTÍNEZ DO Dec 23, 2020 10:39
--- NOTE | 2020-12-23 11:15 | Speech Therapy Daily Note ---
Speech Daily Progress Note Subjective Date Seen by Provider: Dec 23, 2020 Time Seen by Provider: 00:30 Patient was resting in her bed waiting on her blood transfusion when I entered her room. Assessment Assessment Current Status: Good Progress Treatment Plan Continue Plan of Care Speech Short Term Goals Short Term Goals Short Term Goals 1) Patient will complete memory tasks related to her daily needs with minimal cues at 80% or greater. 2) Patient will complete safety awareness tasks related to her daily needs with minimal cues at 80% or greater. 3) Patient will complete problem solving tasks related to her daily needs with minimal cues at 80% or greater. Speech [facility] Goals Improvement Coordinator Goals Patient will improve cognitive-communication necessary for safety and daily living tasks with minimal assist. Speech-Plan Patient/Family Goals Patient/Family Goals: Patient plans on returning to her home where she lives with her sister. The discharge location is still to be determined due to her status at the time of discharge. Treatment Plan Speech Therapy Treatment Plan: Continue Plan of Care Treatment Duration: Jan 03, 2021 Frequency: 4 times per week (Patient will receive skilled ST 4-5x per week) Estimated Hrs Per Day: .5 hour per day Rehab Potential: Fair Barriers to Learning: Patient's lengthy medical status and debility Pt/Family Agrees to Plan: Yes Safety Risks/Education Teaching Recipient: Patient Teaching Methods: Demonstration, Discussion Response to Teaching: Verbalize Understanding, Return Demonstration Education Topics Provided: Continued safety within the ARU and communication of wants/needs Time Speech Therapy Time In: 10:30 Speech Therapy Time Out: 11:00 Total Billed Time: 30 Billed Treatment Time 1, LESVIA Trejo Dec 23, 2020 11:15
[2020-12-23] MEDS: BETHANECHOL 25 MG (URECHOLINE) TAB PO SCH ×3 (11:46→20:56)
[2020-12-23] MEDS: fentaNYL PATCH 25 MCG (DURAGESIC) TD SCH (11:46)
--- NOTE | 2020-12-23 11:51 | Occupational Ther Daily Note ---
OT Current Status-Daily Note Subjective No pain reported. Mental Status/Objective Patient Orientation: Person, Place ADL-Treatment Therapy Code Descriptions/Definitions Functional [place] Measure: 0=Not Assessed/NA 4=Minimal Assistance 1=Total Assistance 5=Supervision or Setup 2=Maximal Assistance 6=Modified [place] 3=Moderate Assistance 7=Complete IndependenceSCALE: Activities may be completed with or without assistive devices. 1-Xzpessqscg-owxgxwf completes the activity by him/herself with no assistance from a helper. 5-Set-up or Clean-up Assistance-helper sets up or cleans up; patient completes activity. [place] assists only prior to or following the activity. 4-Supervision or Touching Assistance-helper provides verbal cues and/or touching/steadying and/or contact guard assistance as patient completes activity. Assistance may be provided throughout the activity or intermittently. 3-Partial/Moderate Assistance-helper does LESS THAN HALF the effort. [place] lifts, holds or supports trunk or limbs, but provides less than half the effort. 2-Substantial/Maximal Assistance-helper does MORE THAN HALF the effort. [place] lifts or holds trunk or limbs and provides more than half the effort. 3-Jrgnpzopz-guteei does ALL the effort. Patient does none of the effort to complete the activity. Or, the assistance of 2 or more helpers is required for the patient to complete the activity. If activity was not attempted, code reason: 7-Patient Refused. 9-Not Applicable-not attempted and the patient did not perform the activity before the current illness, exacerbation or injury. 10-Not Attempted due to Environmental Limitations-(lack of equipment, weather restraints, etc.). 88-Not Attempted due to Medical Conditions or Safety Concerns. Upper Body Dressing (QC): 4 (Seated on side of bed.) Toileting Hygiene (QC): 3 (Mod assist to empty colostomy bag.) Other Treatment Pt. seen for partial co-treatment due to low hemoglobin, weakness, and decreased endurance. Pt. transferred supine-sit with SBA. Pt. donned mumu dress seated on side of bed. Pt. requires rest breaks. PT came into room and addressed balance while OT assisted pt. to empty her own colostomy bag. Pt. has difficulty holding container and releasing bag at same time. Required mod assist for this. Pt. up with PT at this time. Education OT Patient Education: Correct positioning, Modified ADL techniques, Progress toward Goal/Update tx plan, Purpose of tx/functional activities, Reviewed precautions, Rehab process, Transfer techniques Teaching Recipient: Patient Teaching Methods: Demonstration, Discussion Response to Teaching: Verbalize Understanding, Return Demonstration OT Short Term Goals Short Term Goals Time Frame: Dec 23, 2020 Eatin Oral hygiene: 4 Toileting hygiene: 3 Shower/bathe self: 3 Upper body dressin Lower body dressin Putting on/taking off footwear: 3 OT [facility] Goals Penit[facility]iary Goals Time Frame: Jan 06, 2021 Eating (QC): 6 Oral Hygiene (QC): 6 Toileting Hygiene (QC): 4 Shower/Bathe Self (QC): 4 Upper Body Dressing (QC): 5 Lower Body Dressing (QC): 4 On/Off Footwear (QC): 4 Additional Goals: 1-Demonstrate ADL Tasks, 2-Verbalize Understanding, 3-ImproveStrength/[place] 1=Demonstrate adherence to instructed precautions during ADL tasks. 2=Patient will verbalize/demonstrate understanding of assistive devices/modifications for ADL. 3=Patient will improve strength/tolerance for activity to enable patient to perf orm ADL's. OT Education/Plan Problem List/Assessment Assessment: Decreased Activ Tolerance, Impaired Funct Balance, Impaired I ADL's, Impaired Self-Care Skills Discharge Recommendations Plan/Recommendations: Continue POC Therapy Discharge Recommendati: Post Acute OT Treatment Plan/Plan of Care Treatment,Training & Education: Yes Patient would benefit from OT for education, treatment and training to promote independence in ADL's, mobility, safety and/or upper extremity function for ADL's. Plan of Care: ADL Retraining, Concurrent Therapy, Functional Mobility, W/C Management Training Treatment Duration: Dec 09, 2020 Frequency: At least 5 of 7 days/Wk (IRF) Estimated Hrs Per Day: 1.5 hours per day Agreement: Yes Rehab Potential: Fair Time/GCodes Start Time: 08:30 Stop Time: 09:00 Total Time Billed (hr/min): 30 Billed Treatment Time [id number] 1, ADL x 15minutes [id number] ADL x 15minutes (Co-treatment with PT) KOKI STOKES OT Dec 23, 2020 11:51
--- NOTE | 2020-12-23 11:53 | Occ Therapy Progress Note ---
Therapy Progress Note Pt. on medical hold at this time. Pt. to receive blood due to low hemoglobin, and 02 sats dipped to 88% with PT with any movement. 1200 KOKI STOKES OT Dec 23, 2020 11:53
[2020-12-23] MEDS: FENTANYL PATCH REMOVAL TP SCH (11:57)
[2020-12-23] MEDS: HYDROcodone/APAP 7.5MG-325 MG/15 ML (LORTAB) UDC PO PRN ×2 (14:13→20:56)
[2020-12-23] MEDS: TAMSULOSIN 0.4 MG (FLOMAX) CAP PO SCH (17:21)
[2020-12-23] MEDS: MELATONIN 3 MG TABLET PO PRN (20:56)
[2020-12-23] MEDS: ENOXAPARIN 40 MG/0.4 ML (LOVENOX) SYR SC SCH (20:57)
[2020-12-24 05:15] VITALS: BP 128/58
[2020-12-24] MEDS: SUCRALFATE 1 GM (CARAFATE) TAB PO SCH ×4 (06:01→21:46)
[2020-12-24] MEDS: CATHETER FLUSH 10 ML SYR IV SCH ×3 (06:01→22:04)
[2020-12-24] MEDS: BETHANECHOL 25 MG (URECHOLINE) TAB PO SCH ×4 (06:01→21:46)
[2020-12-24 06:34] LABS: BASOPHILS # (AUTO) 0.1 10^3/uL (0.0-0.1); BASOPHILS % (AUTO) 1 % (0-10); EOSINOPHILS # (AUTO) 0.2 10^3/uL (0.0-0.3); EOSINOPHILS % (AUTO) 2 % (0-10); HEMATOCRIT 32 % (35-52); HEMOGLOBIN 10.5 g/dL (11.5-16.0); LYMPHOCYTES # (AUTO) 1.8 10^3/uL (1.0-4.0); LYMPHOCYTES % (AUTO) 15 % (12-44); MEAN CORPUSCULAR HEMOGLOBIN 29 pg (25-34); MEAN CORPUSCULAR HGB CONC 33 g/dL (32-36); MEAN CORPUSCULAR VOLUME 88 fL (80-99); MEAN PLATELET VOLUME 8.4 fL (9.0-12.2); MONOCYTES # (AUTO) 1.1 10^3/uL (0.0-1.0); MONOCYTES % (AUTO) 9 % (0-12); NEUTROPHILS # (AUTO) 8.7 10^3/uL (1.8-7.8); NEUTROPHILS % (AUTO) 72 % (42-75); PLATELET COUNT 315 10^3/uL (130-400); WHITE BLOOD COUNT 12.2 10^3/uL (4.3-11.0)
[2020-12-24 06:48] LABS: ALBUMIN 3.1 GM/DL (3.2-4.5); CHLORIDE 99 MMOL/L (98-107); POTASSIUM 4.6 MMOL/L (3.6-5.0); SODIUM 131 MMOL/L (135-145)
[2020-12-24 06:50] LABS: CALCIUM 7.8 MG/DL (8.5-10.1)
[2020-12-24 06:51] LABS: GLUCOSE 115 MG/DL (70-105); TOTAL PROTEIN 6.8 GM/DL (6.4-8.2)
[2020-12-24 06:52] LABS: CARBON DIOXIDE 21 MMOL/L (21-32)
[2020-12-24 06:53] LABS: BILIRUBIN,TOTAL 0.3 MG/DL (0.1-1.0)
[2020-12-24 06:54] LABS: ALKALINE PHOSPHATASE 124 U/L (40-136); CREATININE SERUM 0.78 MG/DL (0.60-1.30); GFR ESTIMATED > 60
[2020-12-24 06:55] LABS: BUN/CREATININE RATIO 22
[2020-12-24 06:57] LABS: ALANINE AMINOTRANSFERASE 38 U/L (0-55)
[2020-12-24] MEDS: TRELEGY ELLIPTA IH SCH (07:05)
[2020-12-24] MEDS: DOCUSATE SODIUM 100 MG (COLACE) CAP PO SCH ×2 (08:09→21:53)
[2020-12-24] MEDS: NICOTINE PATCH REMOVAL TP SCH (08:10)
[2020-12-24] MEDS: polyethylene glycoL POWDER 17 GM (MIRALAX) PACK PO SCH ×2 (08:10→21:54)
[2020-12-24] MEDS: SENNA W/DOCUSATE (SENOKOT S) TABLET PO SCH ×2 (08:10→21:54)
[2020-12-24] MEDS: PANTOPRAZOLE 40 MG (PROTONIX) TAB PO SCH ×2 (08:41→21:46)
[2020-12-24] MEDS: METOCLOPRAMIDE 5 MG (REGLAN) TAB PO SCH ×2 (08:41→21:46)
[2020-12-24] MEDS: lisINopril 20 MG (PRINIVIL) TABLET PO SCH (08:41)
[2020-12-24] MEDS: amLODIPine 10 MG (NORVASC) TAB PO SCH (08:41)
[2020-12-24] MEDS: meTOprolol TARTRATE 25 MG (LOPRESSOR) TABLET PO SCH ×2 (08:41→21:46)
[2020-12-24] MEDS: SODIUM CHLORIDE 1 GM TABLET PO SCH ×2 (08:42→21:47)
[2020-12-24] MEDS: NICOTINE 14 MG (NICODERM) PATCH TD SCH (08:42)
[2020-12-24] MEDS: FLUTICASONE NASAL SPRAY (FLONASE) 16 GM BTL NS SCH (08:44)
--- NOTE | 2020-12-24 10:47 | PM&R Progress Note ---
Subjective HPI/CC On Admission Date Seen by Provider: Dec 24, 2020 Time Seen by Provider: 10:30 Subjective/Events-last exam 12/24/20: Hgb is 10.5 after two units of blood yesterday WBC is 12. 2 Sodium level 131 Jannet is training her sister to change the ileostomy bag Pain pills have decreased in frequency required 12/23/20: Hgb 6.2 today so will give two units of blood Pt is feeling pretty good I updated her on why anemia occurs during critical illness Increasing Urecholine to 25 Mg before meals and at bedtime per Dr. Wright because she is still retaining urine 12/22/20: Doing very well Granddaughter came to visit from [place] Only taking 1 pain pill per day Ileostomy bag changed LANE drain only 5cc Bladder scan 200cc 12/21/20: Patient doing well Labs reviewed CXR no acute abnl Pain improved Eating well 12/20/20: Increased work of breathing Xanax ordered CXR and labs ordered No sepsis ATX bilateral on CXR so increase use of IS No abx indicated at this time Flonase restarted Sister at bedside 12/19/20: Oxycodone maintained for pain Leg pain from muscle workouts No N/V 12/18/20: Pt doing very well Very much improved Family training will be started Ostomy has 500cc output 12/17/20: Urecholine started by Dr. Wright and Pt denies any significant new issues Pain is well controlled Improved 12/16/20: Ileostomy put out 800cc Hgb 8.4 Iron level will be ordered Sodium level 130 so will DC fluid restriction Overall much improved 12/15/20: Patient doing well Sleeps a lot Pain is improved Dr Wright managing retention 12/14/20: Flomax started Dr Wright ordered in/out caths prn Patient is doing better No falls Pain is controlled Wound vac in place 12/13/20: Voiding is an issue Retention requiring in/out cath Dr Wright appreciated Checked meds and labs 12/12/20: Patient doing well Ambulated in front of me with assistance No pain reported No new issues Fluid restriction noted 12/11/20: Patient doing well Sodium level 129 No pain reported Fluid restriction maintained Ileostomy bag no leak Wound vac still in place 12/10/20: Participation with therapy good just slow Parallel bars but could not stand Fluid restriction maintained 12/09/20: Patient feels good Hgb 9.0 Sodium 127 2 person assist still Output 600 in ileostomy Lovenox maintained 12/08/20: Patient feels good and feels stronger Hgb 8.9 Sodium level 127 Ileostomy functioning well but bag keep leaking Gluteus cleft stage 2 decubitus ulcer Review of Systems General: Fatigue Pulmonary: Dyspnea Objective Exam Vital Signs Vital Signs Date Time Temp Pulse Resp B/P (MAP) Pulse Ox O2 Delivery O2 Flow Rate FiO2 12/24/20 21:52 91 Room Air 12/24/20 21:48 102 18 126/60 (82) 12/24/20 16:00 36.0 12/21/20 20:30 92.00 Capillary Refill : General Appearance: No Apparent Distress, WD/WN, Chronically ill HEENT: PERRL/EOMI, Normal ENT Inspection, Pharynx Normal, Other (belkofski severe) Neck: Normal Inspection, Supple Respiratory: Normal Breath Sounds, No Accessory Muscle Use, No Respiratory Distress Cardiovascular: Regular Rate, Rhythm, No Edema Gastrointestinal: Normal Bowel Sounds, No Organomegaly, No Pulsatile Mass, Non Tender, Soft, Other (ileostomy) Back: Normal Inspection, No CVA Tenderness, No Vertebral Tenderness Extremity: Normal Inspection, Normal Range of Motion Neurologic/Psychiatric: Alert, Oriented x3, No Motor/Sensory Deficits, Normal Mood/Affect, compliance examiner II-XII Norm as Tested, Motor Weakness (3/5 all extremities) Skin: Normal Color, Warm/Dry, Other (Mild like abdominal incision C/D/I with wound vac in place. No surrounding redness. Left upper LANE drain with minimal Clear ss to serous drainage.) Lymphatic: No Adenopathy Results/Procedures Lab Laboratory Tests 12/24/20 06:30 Patient resulted labs reviewed. [facility]IM Transfers Therapy Code Descriptions/Definitions Functional [place] Measure: 0=Not Assessed/NA 4=Minimal Assistance 1=Total Assistance 5=Supervision or Setup 2=Maximal Assistance 6=Modified [place] 3=Moderate Assistance 7=Complete IndependenceSCALE: Activities may be completed with or without assistive devices. 9-Fxlcidvbsy-zlkwfih completes the activity by him/herself with no assistance from a helper. 5-Set-up or Clean-up Assistance-helper sets up or cleans up; patient completes activity. [place] assists only prior to or following the activity. 4-Supervision or Touching Assistance-helper provides verbal cues and/or touching/steadying and/or contact guard assistance as patient completes activity. Assistance may be provided throughout the activity or intermittently. 3-Partial/Moderate Assistance-helper does LESS THAN HALF the effort. [place] lifts, holds or supports trunk or limbs, but provides less than half the effort. 2-Substantial/Maximal Assistance-helper does MORE THAN HALF the effort. [place] lifts or holds trunk or limbs and provides more than half the effort. 0-Fdrbggdvg-glyymf does ALL the effort. Patient does none of the effort to complete the activity. Or, the assistance of 2 or more helpers is required for the patient to complete the activity. If activity was not attempted, code reason: 7-Patient Refused. 9-Not Applicable-not attempted and the patient did not perform the activity before the current illness, exacerbation or injury. 10-Not Attempted due to Environmental Limitations-(lack of equipment, weather restraints, etc.). 88-Not Attempted due to Medical Conditions or Safety Concerns. Roll Left to Right (QC): 6 Sit to Lying (QC): 6 Sit to Stand (QC): 5 Chair/Nrw-wn-Czjjh Xfer(QC): 4 Car Transfer (QC): 88 Gait Training Does the Patient Walk?: Yes Distance: 60, 80, 80 Walk 10 feet (QC): 4 Walk 50 ft with 2 Turns(QC): 4 Walk 150 ft (QC): 88 Walking 10ft/uneven surface-QC: 88 Gait Persons Needed: 1 Gait Assistive Device: FWW Wheelchair Training Does the Pt Use a Wheelchair?: Yes Wheel 50 ft with 2 turns (QC): 4 Wheel 150 ft (QC): 5 Type of Wheelchair: Manual Stair Training #of Steps: 0 1 Step (curb) (QC): 88 4 Steps (QC): 88 12 Steps (QC): 88 Balance Picking up an Object (QC): 88 ADL-Treatment Eating (QC): 6 Oral Hygiene (QC): 6 Shower/Bathe Self (QC): 5 Upper Body Dressing (QC): 4 (Seated on side of bed.) Lower Body Dressing (QC): 7 On/Off Footwear (QC): 5 Toileting Hygiene (QC): 3 (Mod assist to empty colostomy bag.) Toilet Transfer (QC): 4 (SBA) Assessment/Plan Assessment and Plan Assess & Plan/Chief Complaint Assessment: 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 Former smoker Severe presbycusis HTN Hyponatremia 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 Urinary retention 12/13/20 Plan: IRF protocol Monitor pain O2 Nebs IS Lovenox 12/08/20: Xanax ordered Ileostomy functioning well but bag leaking Decubitus ulcer management 12/09/20: Monitor fluid restriction Salt tablets Monitor pain Ileostomy function monitoring 12/10/20: Salt tablets Fluid restriction Monitor closely Intensive therapy 12/11/20: Continue fluid restriction Salt tablets Monitor pain 12/12/20: Ambulating well today Fantastic progress 12/13/20: Urinary retention Dr Wright Monitor closely 12/14/20: Flomax started Dr Wright appreciated Pain control 12/15/20: Improved Retention per Dr Wright Wound vac 12/16/20: In/Out cath Monitor pain Monitor for UTI 12/17/20: Urecholine In/Out cath Monitor closely 12/18/20: Family training Impressive function 12/19/20: Monitor closely Pain control Impressive recovery 12/20/20: Sepsis w/u Check CXR IS Xanax Flonase 12/21/20: Flonase improved status Pain control Increase nutrition 12/22/20: Decrease pain meds Monitor closely Bladder scan 12/23/20: 2 units of blood Hold therapy today due to transfusions Monitor progress 12/24/20: Monitor closely Fall risk Improve nutrition Change ileostomy (1) Myopathy (2) Ileus following gastrointestinal surgery (3) S/P right hemicolectomy (4) Presbycusis of both ears (5) Ileostomy in place (6) Anemia due to acute blood loss (7) Colon cancer (8) Hyponatremia (9) COPD (chronic obstructive pulmonary disease) (10) DVT prophylaxis WILFREDO MARTÍNEZ DO Dec 24, 2020 10:47
--- NOTE | 2020-12-24 10:51 | Physical Therapy Daily Note ---
PT Daily Note-Current Subjective Pt laying Supine in bed with Pt's Sister present. Pt agrees to PT/OT co-treat. Pain Location: No Pain Reported Mental Status Patient Orientation: Person, Place, Situation Attachments: Colostomy/Ileostomy, Drains, Other-See Comments (Wound Vac. ) Transfers SCALE: Activities may be completed with or without assistive devices. 5-Sqcexrzvmn-xjwbyqu completes the activity by him/herself with no assistance from a helper. 5-Set-up or Clean-up Assistance-helper sets up or cleans up; patient completes activity. [place] assists only prior to or following the activity. 4-Supervision or Touching Assistance-helper provides verbal cues and/or touching/steadying and/or contact guard assistance as patient completes activity. Assistance may be provided throughout the activity or intermittently. 3-Partial/Moderate Assistance-helper does LESS THAN HALF the effort. [place] lifts, holds or supports trunk or limbs, but provides less than half the effort. 2-Substantial/Maximal Assistance-helper does MORE THAN HALF the effort. [place] lifts or holds trunk or limbs and provides more than half the effort. 0-Sydosknio-orpmmn does ALL the effort. Patient does none of the effort to complete the activity. Or, the assistance of 2 or more helpers is required for the patient to complete the activity. If activity was not attempted, code reason: 7-Patient Refused. 9-Not Applicable-not attempted and the patient did not perform the activity before the current illness, exacerbation or injury. 10-Not Attempted due to Environmental Limitations-(lack of equipment, weather restraints, etc.). 88-Not Attempted due to Medical Conditions or Safety Concerns. Lying to Sitting/Side of Bed(Q: 5 Sit to Stand (QC): 5 Toilet Transfer (QC): 5 Weight Bearing Full Weight Bearing Full Weight Bearing Gait Training Does the Patient Walk?: Yes Distance: 10' x2 Walk 10 feet (QC): 5 Gait Persons Needed: 1 Gait Assistive Device: FWW Treatments Pt's sister in room for family training. OT/PT co-treat due to need of skilled assist x 2 for education purposes. PT focused on pt's ambulation status, mobility needs, and assistive device education while OT addressed ADL skills education, safety, and encouragement that is needed. OT/PT talked with social work who will also talk with sister regarding home set up of assist and equipment. Sister reports that they have a shower chair and walkers. Pt. and sister educated on walker basket and walker safety. Also educated in importance of doing more for self, being up in chair more during the day as opposed to the bed, and participating in daily activities. Pt. is able to toilet self and transfer into and out of bed with SBA. Sister educated on having small meals set up for pt. before leaving for work, etc... Sister verbalizes understanding. All needs met in room. Assessment Current Status: Good Progress Pt fatigues easily. Encouraged to complete tasks as independently as possible. PT Short Term Goals Short Term Goals Time Frame: Dec 21, 2020 Roll Left & Right: 4 Sit to lyin Lying to sitting on side of be: 4 Sit to stand: 4 Chair/lqt-sh-pnhir transfer: 4 Toilet transfer: 4 Car transfer: 3 Walk 10 feet: 4 Walk 50 feet with two turns: 4 Walk 150 feet: 4 Walking 10ft on uneven surface: 4 1 step (curb): 4 Does pt use a wc or scooter: Yes Wheel 50ft w/2 turns: 4 Wheel 150 feet: 4 Type: Manual PT Ch[facility] Goals Chcf Goals PT [facility] Goals Time Frame: Jan 04, 2021 Roll Left & Right (QC): 6 Sit to Lying (QC): 6 Lying-Sitting on Side/Bed(QC): 6 Sit to Stand (QC): 6 Chair/Cou-xt-Uywgf Xfer(QC): 6 Toilet Transfer (QC): 6 Car Transfer (QC): 5 Does the Patient Walk: Yes Walk 10 feet (QC): 6 Walk 50ft with 2 Turns (QC): 6 Walk 150 ft (QC): 5 Walking 10ft on Uneven Surface: 6 1 Step (curb) (QC): 5 4 Steps (QC): 5 12 Steps (QC): 4 Picking up an Object (QC): 4 Does the Pt use WC or Scooter?: Yes Wheel 50 feet with 2 turns (QC: 6 Type: Manual Wheel 150 feet: 6 Type: Manual PT Plan Problem List Problem List: Activity Tolerance Treatment/Plan Treatment Plan: Continue Plan of Care Treatment Plan: Bed Mobility, Concurrent Therapy, Functional Activity [place], Functional Strength, Group Therapy, Gait, Safety, Therapeutic Exercise, Transfers Treatment Duration: Jan 04, 2021 Frequency: At least 5 of 7 days/Wk (IRF) Estimated Hrs Per Day: 1.5 hours per day Patient and/or Family Agrees t: Yes Safety Risks/Education Patient Education: Correct Positioning, Safety Issues Teaching Recipient: Patient, Family Teaching Methods: Discussion Response to Teaching: Verbalize Understanding Time/GCodes Time In: 1000 Time Out: 1045 Total Billed Treatment Time: 45 Total Billed Treatment 1, FA x3 (45m) Co-treat w/OT for 45m PHILIPP [facility] [employer]IST Dec 24, 2020 10:51
--- NOTE | 2020-12-24 11:00 | Occupational Ther Daily Note ---
OT Current Status-Daily Note Subjective No pain reported. Mental Status/Objective Patient Orientation: Person, Place ADL-Treatment Therapy Code Descriptions/Definitions Functional [place] Measure: 0=Not Assessed/NA 4=Minimal Assistance 1=Total Assistance 5=Supervision or Setup 2=Maximal Assistance 6=Modified [place] 3=Moderate Assistance 7=Complete IndependenceSCALE: Activities may be completed with or without assistive devices. 5-Eneijkurfi-godxhri completes the activity by him/herself with no assistance from a helper. 5-Set-up or Clean-up Assistance-helper sets up or cleans up; patient completes activity. [place] assists only prior to or following the activity. 4-Supervision or Touching Assistance-helper provides verbal cues and/or touching/steadying and/or contact guard assistance as patient completes activity. Assistance may be provided throughout the activity or intermittently. 3-Partial/Moderate Assistance-helper does LESS THAN HALF the effort. [place] lifts, holds or supports trunk or limbs, but provides less than half the effort. 2-Substantial/Maximal Assistance-helper does MORE THAN HALF the effort. [place] lifts or holds trunk or limbs and provides more than half the effort. 9-Avcmyzlab-yipgdg does ALL the effort. Patient does none of the effort to complete the activity. Or, the assistance of 2 or more helpers is required for the patient to complete the activity. If activity was not attempted, code reason: 7-Patient Refused. 9-Not Applicable-not attempted and the patient did not perform the activity before the current illness, exacerbation or injury. 10-Not Attempted due to Environmental Limitations-(lack of equipment, weather restraints, etc.). 88-Not Attempted due to Medical Conditions or Safety Concerns. Toileting Hygiene (QC): 4 Toilet Transfer (QC): 4 Other Treatment Pt's sister in room for family training. OT/PT co-treat due to need of skilled assist x 2 for education purposes. PT focused on pt's ambulation status, mobility needs, and assistive device education while OT addressed ADL skills education, safety, and encouragement that is needed. OT/PT talked with social work who will also talk with sister regarding home set up of assist and equipment. Sister reports that they have a shower chair and walkers. Pt. and sister educated on walker basket and walker safety. Also educated in importance of doing more for self, being up in chair more during the day as opposed to the bed, and participating in daily activities. Pt. is able to toilet self and transfer into and out of bed with SBA. Sister educated on having small meals set up for pt. before leaving for work, etc... Sister verbalizes understanding. All needs met in room. Education OT Patient Education: Correct positioning, Modified ADL techniques, Progress toward Goal/Update tx plan, Purpose of tx/functional activities, Reviewed precautions, Rehab process, Transfer techniques, Use of adapted equipment Teaching Recipient: Patient Teaching Methods: Demonstration, Discussion Response to Teaching: Verbalize Understanding, Return Demonstration OT Short Term Goals Short Term Goals Time Frame: Dec 23, 2020 Eatin Oral hygiene: 4 Toileting hygiene: 3 Shower/bathe self: 3 Upper body dressin Lower body dressin Putting on/taking off footwear: 3 OT [employer]ant [employer] Goals Group Home Goals Time Frame: Jan 06, 2021 Eating (QC): 6 Oral Hygiene (QC): 6 Toileting Hygiene (QC): 4 Shower/Bathe Self (QC): 4 Upper Body Dressing (QC): 5 Lower Body Dressing (QC): 4 On/Off Footwear (QC): 4 Additional Goals: 1-Demonstrate ADL Tasks, 2-Verbalize Understanding, 3- ImproveStrength/[place] 1=Demonstrate adherence to instructed precautions during ADL tasks. 2=Patient will verbalize/demonstrate understanding of assistive devices/modifications for ADL. 3=Patient will improve strength/tolerance for activity to enable patient to perform ADL's. OT Education/Plan Problem List/Assessment Assessment: Decreased Activ Tolerance, Impaired I ADL's, Impaired Self-Care Skills Discharge Recommendations Plan/Recommendations: Continue POC Therapy Discharge Recommendati: Scheduled Assistance, Bath Aide, Home & Family, Post Acute OT Treatment Plan/Plan of Care Treatment,Training & Education: Yes Patient would benefit from OT for education, treatment and training to promote independence in ADL's, mobility, safety and/or upper extremity function for ADL's. Plan of Care: ADL Retraining, Concurrent Therapy, Functional Mobility, W/C Management Training Treatment Duration: Dec 09, 2020 Frequency: At least 5 of 7 days/Wk (IRF) Estimated Hrs Per Day: 1.5 hours per day Agreement: Yes Rehab Potential: Fair Time/GCodes Start Time: 10:00 Stop Time: 10:45 Total Time Billed (hr/min): 45 Billed Treatment Time 1, ADL x 45minutes Co-treatment with PT. Please see above note for designated roles. KOKI STOKES OT Dec 24, 2020 11:00
--- NOTE | 2020-12-24 11:20 | Progress Note - Urology ---
Progress Note-Urology Progress Notes/Assess & Plan Progress/Assessment & Plan VOIDING ON OWN. NO NEED FOR STRAIGHT CATH. TOLERATES MEDS WELL. URINE CLOUDY, SEND UA ?UC Final Diagnosis URINE RETENTION SLY FORRESTER MD Dec 24, 2020 11:20
--- NOTE | 2020-12-24 13:16 | Speech Therapy Daily Note ---
Speech Daily Progress Note Subjective Date Seen by Provider: Dec 24, 2020 Time Seen by Provider: 00:30 Patient was resting in her bed following her dressing changes. Patient was more alert today. Objective Patient completed a series of "what's missing?" cards related to various scenarios she may encounter at home at 80% with minimal cues. Assessment Assessment Current Status: Good Progress Treatment Plan Continue Plan of Care Speech Short Term Goals Short Term Goals Short Term Goals 1) Patient will complete memory tasks related to her daily needs with minimal cues at 80% or greater. 2) Patient will complete safety awareness tasks related to her daily needs with minimal cues at 80% or greater. 3) Patient will complete problem solving tasks related to her daily needs with minimal cues at 80% or greater. Speech Shelter Goals Composing Machine Operator Goals Patient will improve cognitive-communication necessary for safety and daily living tasks with minimal assist. Speech-Plan Patient/Family Goals Patient/Family Goals: Patient plans on returning to her home where she lives with her sister. Treatment Plan Speech Therapy Treatment Plan: Continue Plan of Care Treatment Duration: Jan 03, 2021 Frequency: 4 times per week (Patient will receive skilled ST 4-5x per week) Estimated Hrs Per Day: .5 hour per day Rehab Potential: Fair Barriers to Learning: Patient's physical decline due to lengthy COVID recover Pt/Family Agrees to Plan: Yes Safety Risks/Education Teaching Recipient: Patient Teaching Methods: Demonstration, Discussion Response to Teaching: Verbalize Understanding, Return Demonstration Education Topics Provided: Continued safety within her room and upon her return home Time Speech Therapy Time In: 11:00 Speech Therapy Time Out: 11:30 Total Billed Time: 30 Billed Treatment Time 1, LESVIA Trejo Dec 24, 2020 13:16
--- NOTE | 2020-12-24 13:52 | Occupational Ther Daily Note ---
OT Current Status-Daily Note Subjective No pain reported. Pt. states that she would like to walk. Appearance Pt. in bed. Alert and agreeable to treatment. Mental Status/Objective Patient Orientation: Person, Place ADL-Treatment Therapy Code Descriptions/Definitions Functional [place] Measure: 0=Not Assessed/NA 4=Minimal Assistance 1=Total Assistance 5=Supervision or Setup 2=Maximal Assistance 6=Modified [place] 3=Moderate Assistance 7=Complete IndependenceSCALE: Activities may be completed with or without assistive devices. 7-Rzowimkerh-nvwcphv completes the activity by him/herself with no assistance from a helper. 5-Set-up or Clean-up Assistance-helper sets up or cleans up; patient completes activity. [place] assists only prior to or following the activity. 4-Supervision or Touching Assistance-helper provides verbal cues and/or touching/steadying and/or contact guard assistance as patient completes activity. Assistance may be provided throughout the activity or intermittently. 3-Partial/Moderate Assistance-helper does LESS THAN HALF the effort. [place] lifts, holds or supports trunk or limbs, but provides less than half the effort. 2-Substantial/Maximal Assistance-helper does MORE THAN HALF the effort. [place] lifts or holds trunk or limbs and provides more than half the effort. 5-Bbggvqiab-vkbsad does ALL the effort. Patient does none of the effort to complete the activity. Or, the assistance of 2 or more helpers is required for the patient to complete the activity. If activity was not attempted, code reason: 7-Patient Refused. 9-Not Applicable-not attempted and the patient did not perform the activity before the current illness, exacerbation or injury. 10-Not Attempted due to Environmental Limitations-(lack of equipment, weather restraints, etc.). 88-Not Attempted due to Medical Conditions or Safety Concerns. Eating (QC): 6 Toileting Hygiene (QC): 4 Toilet Transfer (QC): 4 Other Treatment Pt. transfers supine-sit with SBA. Ambulated with SBA with walker, with OT carrying wound vac. Pt. ambulated to toilet and toileted self with SBA. Pt. able to wash hands at sink. Ambulated to therapy gym, with two rest breaks during the trip. Pt. seems SOA and is encouraged to breathe deep in through nose. Sats taken throughout and remain at 93-94%. Pt. rests in therapy gym and then ambulates back with SBA and walker, with only one rest break. Pt. requires encouragement to ambulate further each time, and requests her ice chips throughout. Pt. transfers back to bed with SBA. Pt. requests OT to turn her on her side. Pt. is encouraged to do this herself, and she is able to. OT and pt. talk about how when she goes home, her sister will be unable to pull on her or lift her, and so she needs to be able to practice at this facility. Pt. verbalizes understanding, but then asks OT again to turn her more. Pt. is encouraged once more, and is able to do so. All needs are met in bed. Education OT Patient Education: Correct positioning, Modified ADL techniques, Progress toward Goal/Update tx plan, Purpose of tx/functional activities, Reviewed precautions, Rehab process, Transfer techniques Teaching Recipient: Patient Teaching Methods: Demonstration, Discussion Response to Teaching: Verbalize Understanding, Return Demonstration OT Short Term Goals Short Term Goals Time Frame: Dec 23, 2020 Eatin Oral hygiene: 4 Toileting hygiene: 3 Shower/bathe self: 3 Upper body dressin Lower body dressin Putting on/taking off footwear: 3 OT Care Home Goals Care Home Goals Time Frame: Jan 06, 2021 Eating (QC): 6 Oral Hygiene (QC): 6 Toileting Hygiene (QC): 4 Shower/Bathe Self (QC): 4 Upper Body Dressing (QC): 5 Lower Body Dressing (QC): 4 On/Off Footwear (QC): 4 Additional Goals: 1-Demonstrate ADL Tasks, 2-Verbalize Understanding, 3- ImproveStrength/[place] 1=Demonstrate adherence to instructed precautions during ADL tasks. 2=Patient will verbalize/demonstrate understanding of assistive devices/modifications for ADL. 3=Patient will improve strength/tolerance for activity to enable patient to perform ADL's. OT Education/Plan Problem List/Assessment Assessment: Decreased Activ Tolerance, Impaired I ADL's, Impaired Self-Care Skills Discharge Recommendations Plan/Recommendations: Continue POC Therapy Discharge Recommendati: Bath Aide, Home & Family, Post Acute OT Equpiment Recommendations-D/C: Hip Kit Treatment Plan/Plan of Care Treatment,Training & Education: Yes Patient would benefit from OT for education, treatment and training to promote independence in ADL's, mobility, safety and/or upper extremity function for ADL's. Plan of Care: ADL Retraining, Concurrent Therapy, Functional Mobility, W/C Management Training Treatment Duration: Dec 09, 2020 Frequency: At least 5 of 7 days/Wk (IRF) Estimated Hrs Per Day: 1.5 hours per day Agreement: Yes Rehab Potential: Fair Time/GCodes Start Time: 13:00 Stop Time: 13:30 Total Time Billed (hr/min): 30 Billed Treatment Time 1, FA x 2 KOKI STOKES OT Dec 24, 2020 13:52
--- NOTE | 2020-12-24 15:20 | Physical Therapy Daily Note ---
PT Daily Note-Current Subjective Pt L sidelying in bed upon arrival. Pt agrees to PT. Pain Location: No Pain Reported Mental Status Patient Orientation: Person, Place, Situation Attachments: Colostomy/Ileostomy, Drains, Other-See Comments (Wound Vac.) Transfers SCALE: Activities may be completed with or without assistive devices. 1-Hremewjfgg-mqpljlx completes the activity by him/herself with no assistance from a helper. 5-Set-up or Clean-up Assistance-helper sets up or cleans up; patient completes activity. [place] assists only prior to or following the activity. 4-Supervision or Touching Assistance-helper provides verbal cues and/or touching/steadying and/or contact guard assistance as patient completes acti vity. Assistance may be provided throughout the activity or intermittently. 3-Partial/Moderate Assistance-helper does LESS THAN HALF the effort. [place] lifts, holds or supports trunk or limbs, but provides less than half the effort. 2-Substantial/Maximal Assistance-helper does MORE THAN HALF the effort. [place] lifts or holds trunk or limbs and provides more than half the effort. 2-Xqjlfboyv-skuuws does ALL the effort. Patient does none of the effort to complete the activity. Or, the assistance of 2 or more helpers is required for the patient to complete the activity. If activity was not attempted, code reason: 7-Patient Refused. 9-Not Applicable-not attempted and the patient did not perform the activity before the current illness, exacerbation or injury. 10-Not Attempted due to Environmental Limitations-(lack of equipment, weather restraints, etc.). 88-Not Attempted due to Medical Conditions or Safety Concerns. Weight Bearing Full Weight Bearing Full Weight Bearing Exercises Supine Ex: Ankle pumps, Quad Set, Glut sets, Heel Slides, Hip abd/add Supine Reps: 15 Treatments Pt reports being fatigued when PIERCER arrived. Pt reports just getting to L sidely ing shortly before PIERCER arrives. Pt agrees to Supine EX. Pt completes with a couple short RB. All needs met, call light in hand. Assessment Current Status: Fair Progress Pt needs encouragement to continue to push self to see progress for DC. PT Short Term Goals Short Term Goals Time Frame: Dec 21, 2020 Roll Left & Right: 4 Sit to lyin Lying to sitting on side of be: 4 Sit to stand: 4 Chair/lmh-hw-hlmrq transfer: 4 Toilet transfer: 4 Car transfer: 3 Walk 10 feet: 4 Walk 50 feet with two turns: 4 Walk 150 feet: 4 Walking 10ft on uneven surface: 4 1 step (curb): 4 Does pt use a wc or scooter: Yes Wheel 50ft w/2 turns: 4 Wheel 150 feet: 4 Type: Manual PT Software Test Analyst Goals Software Test Analyst Goals PT Long-Term Goals Time Frame: Jan 04, 2021 Roll Left & Right (QC): 6 Sit to Lying (QC): 6 Lying-Sitting on Side/Bed(QC): 6 Sit to Stand (QC): 6 Chair/Hqp-av-Shyue Xfer(QC): 6 Toilet Transfer (QC): 6 Car Transfer (QC): 5 Does the Patient Walk: Yes Walk 10 feet (QC): 6 Walk 50ft with 2 Turns (QC): 6 Walk 150 ft (QC): 5 Walking 10ft on Uneven Surface: 6 1 Step (curb) (QC): 5 4 Steps (QC): 5 12 Steps (QC): 4 Picking up an Object (QC): 4 Does the Pt use WC or Scooter?: Yes Wheel 50 feet with 2 turns (QC: 6 Type: Manual Wheel 150 feet: 6 Type: Manual PT Plan Problem List Problem List: Activity Tolerance, Functional Strength Treatment/Plan Treatment Plan: Continue Plan of Care Treatment Plan: Bed Mobility, Concurrent Therapy, Functional Activity [place], Functional Strength, Group Therapy, Gait, Safety, Therapeutic Exercise, Transfers Treatment Duration: Jan 04, 2021 Frequency: At least 5 of 7 days/Wk (IRF) Estimated Hrs Per Day: 1.5 hours per day Patient and/or Family Agrees t: Yes Safety Risks/Education Patient Education: Correct Positioning, Disease Process, Safety Issues Teaching Recipient: Patient Teaching Methods: Discussion Response to Teaching: Verbalize Understanding Time/GCodes Time In: 1330 Time Out: 1400 Total Billed Treatment Time: 30 Total Billed Treatment 1, EX x2 (30m) PHILIPP CHAMBERS PTA Dec 24, 2020 15:20
[2020-12-24 15:42] LABS: BILIRUBIN,URINE NEGATIVE (NEGATIVE); CLARITY,URINE SL CLOUDY; COLOR,URINE YELLOW; GLUCOSE, URINE (UA) NEGATIVE (NEGATIVE); KETONES,URINE NEGATIVE (NEGATIVE); LEUKOCYTE ESTERASE ,URINE 3+ (NEGATIVE); NITRITE,URINE POSITIVE (NEGATIVE); PH,URINE 5.5 (5-9); PROTEIN,URINE TRACE (NEGATIVE)
[2020-12-24 15:51] LABS: BACTERIA,URINE LARGE /HPF; WBC,URINE >100 /HPF
[2020-12-24 16:00] VITALS: BP 122/60
[2020-12-24] MEDS: NITROFURANTOIN 100 MG (MACROBID) CAPSULE PO SCH (17:13)
[2020-12-24] MEDS: TAMSULOSIN 0.4 MG (FLOMAX) CAP PO SCH (17:13)
[2020-12-24 21:48] VITALS: BP 126/60
[2020-12-24] MEDS: ENOXAPARIN 40 MG/0.4 ML (LOVENOX) SYR SC SCH (21:48)
[2020-12-24] MEDS: HYDROcodone/APAP 7.5MG-325 MG/15 ML (LORTAB) UDC PO PRN (21:51)
[2020-12-25 05:57] VITALS: BP 137/63
[2020-12-25] MEDS: SUCRALFATE 1 GM (CARAFATE) TAB PO SCH ×4 (06:29→21:57)
[2020-12-25] MEDS: CATHETER FLUSH 10 ML SYR IV SCH ×3 (06:29→22:08)
[2020-12-25] MEDS: BETHANECHOL 25 MG (URECHOLINE) TAB PO SCH ×4 (06:29→21:57)
[2020-12-25] MEDS: METOCLOPRAMIDE 5 MG (REGLAN) TAB PO SCH ×2 (07:53→21:57)
[2020-12-25] MEDS: NICOTINE 14 MG (NICODERM) PATCH TD SCH (07:54)
[2020-12-25] MEDS: amLODIPine 10 MG (NORVASC) TAB PO SCH (07:54)
[2020-12-25] MEDS: NITROFURANTOIN 100 MG (MACROBID) CAPSULE PO SCH ×2 (07:54→18:44)
[2020-12-25] MEDS: PANTOPRAZOLE 40 MG (PROTONIX) TAB PO SCH ×2 (07:55→21:57)
[2020-12-25] MEDS: SENNA W/DOCUSATE (SENOKOT S) TABLET PO SCH ×2 (07:55→21:50)
[2020-12-25] MEDS: lisINopril 20 MG (PRINIVIL) TABLET PO SCH (07:55)
[2020-12-25] MEDS: meTOprolol TARTRATE 25 MG (LOPRESSOR) TABLET PO SCH ×2 (07:55→21:57)
[2020-12-25] MEDS: NICOTINE PATCH REMOVAL TP SCH (07:56)
[2020-12-25] MEDS: DOCUSATE SODIUM 100 MG (COLACE) CAP PO SCH ×2 (07:57→21:50)
[2020-12-25] MEDS: FLUTICASONE NASAL SPRAY (FLONASE) 16 GM BTL NS SCH (07:58)
[2020-12-25] MEDS: polyethylene glycoL POWDER 17 GM (MIRALAX) PACK PO SCH ×2 (07:59→21:50)
[2020-12-25] MEDS: SODIUM CHLORIDE 1 GM TABLET PO SCH ×2 (08:03→21:58)
--- NOTE | 2020-12-25 08:15 | Progress Note - Urology ---
Progress Note-Urology Progress Notes/Assess & Plan Progress/Assessment & Plan PVR 37CC. TOLERATES URECHOLINE WELL. Final Diagnosis URINE RETENTION SLY FORRESTER MD Dec 25, 2020 08:15
[2020-12-25] MEDS: TRELEGY ELLIPTA IH SCH (08:22)
--- NOTE | 2020-12-25 09:16 | PM&R Progress Note ---
Subjective HPI/CC On Admission Date Seen by Provider: Dec 25, 2020 Time Seen by Provider: 09:15 Subjective/Events-last exam 12/25/20: Pt doing pretty well Increasing fluid restriction to 1500 CCs Emptying ileostomy on her own Hgb is 10.5 Urecholine is working very well No post-void residual May need a correction 12/24/20: Hgb is 10.5 after two units of blood yesterday WBC is 12. 2 Sodium level 131 Jannet is training her sister to change the ileostomy bag Pain pills have decreased in frequency required 12/23/20: Hgb 6.2 today so will give two units of blood Pt is feeling pretty good I updated her on why anemia occurs during critical illness Increasing Urecholine to 25 Mg before meals and at bedtime per Dr. Wright because she is still retaining urine 12/22/20: Doing very well Granddaughter came to visit from [place] Only taking 1 pain pill per day Ileostomy bag changed LANE drain only 5cc Bladder scan 200cc 12/21/20: Patient doing well Labs reviewed CXR no acute abnl Pain improved Eating well 12/20/20: Increased work of breathing Xanax ordered CXR and labs ordered No sepsis ATX bilateral on CXR so increase use of IS No abx indicated at this time Flonase restarted Sister at bedside 12/19/20: Oxycodone maintained for pain Leg pain from muscle workouts No N/V 12/18/20: Pt doing very well Very much improved Family training will be started Ostomy has 500cc output 12/17/20: Urecholine started by Dr. Wright and Pt denies any significant new issues Pain is well controlled Improved 12/16/20: Ileostomy put out 800cc Hgb 8.4 Iron level will be ordered Sodium level 130 so will DC fluid restriction Overall much improved 12/15/20: Patient doing well Sleeps a lot Pain is improved Dr Wright managing retention 12/14/20: Flomax started Dr Wright ordered in/out caths prn Patient is doing better No falls Pain is controlled Wound vac in place 12/13/20: Voiding is an issue Retention requiring in/out cath Dr Wright appreciated Checked meds and labs 12/12/20: Patient doing well Ambulated in front of me with assistance No pain reported No new issues Fluid restriction noted 12/11/20: Patient doing well Sodium level 129 No pain reported Fluid restriction maintained Ileostomy bag no leak Wound vac still in place 12/10/20: Participation with therapy good just slow Parallel bars but could not stand Fluid restriction maintained 12/09/20: Patient feels good Hgb 9.0 Sodium 127 2 person assist still Output 600 in ileostomy Lovenox maintained 12/08/20: Patient feels good and feels stronger Hgb 8.9 Sodium level 127 Ileostomy functioning well but bag keep leaking Gluteus cleft stage 2 decubitus ulcer Review of Systems General: Fatigue, Malaise Pulmonary: Dyspnea Objective Exam Vital Signs Vital Signs Date Time Temp Pulse Resp B/P (MAP) Pulse Ox O2 Delivery O2 Flow Rate FiO2 12/25/20 21:55 91 Room Air 12/25/20 18:06 36.8 95 20 122/57 (78) 12/21/20 20:30 92.00 Capillary Refill : General Appearance: No Apparent Distress, WD/WN, Chronically ill HEENT: PERRL/EOMI, Normal ENT Inspection, Pharynx Normal, Other ([place] severe) Neck: Normal Inspection, Supple Respiratory: Normal Breath Sounds, No Accessory Muscle Use, No Respiratory Distress Cardiovascular: Regular Rate, Rhythm, No Edema Gastrointestinal: Normal Bowel Sounds, No Organomegaly, No Pulsatile Mass, Non Tender, Soft, Other (ileostomy) Back: Normal Inspection, No CVA Tenderness, No Vertebral Tenderness Extremity: Normal Inspection, Normal Range of Motion Neurologic/Psychiatric: Alert, Oriented x3, No Motor/Sensory Deficits, Normal Mood/Affect, scales inspector II-XII Norm as Tested, Motor Weakness (3/5 all extremities) Skin: Normal Color, Warm/Dry, Other (Mild like abdominal incision C/D/I with wound vac in place. No surrounding redness. Left upper LANE drain with minimal Clear ss to serous drainage.) Lymphatic: No Adenopathy Results/Procedures Lab Patient resulted labs reviewed. FIM Transfers Therapy Code Descriptions/Definitions Functional [place] Measure: 0=Not Assessed/NA 4=Minimal Assistance 1=Total Assistance 5=Supervision or Setup 2=Maximal Assistance 6=Modified [place] 3=Moderate Assistance 7=Complete IndependenceSCALE: Activities may be completed with or without assistive devices. 1-Zaqdrlarzz-gxwcsdm completes the activity by him/herself with no assistance from a helper. 5-Set-up or Clean-up Assistance-helper sets up or cleans up; patient completes activity. [place] assists only prior to or following the activity. 4-Supervision or Touching Assistance-helper provides verbal cues and/or touching/steadying and/or contact guard assistance as patient completes activity. Assistance may be provided throughout the activity or intermittently. 3-Partial/Moderate Assistance-helper does LESS THAN HALF the effort. [place] lifts, holds or supports trunk or limbs, but provides less than half the effort. 2-Substantial/Maximal Assistance-helper does MORE THAN HALF the effort. [place] lifts or holds trunk or limbs and provides more than half the effort. 9-Jmwzyjiva-fvsfiw does ALL the effort. Patient does none of the effort to complete the activity. Or, the assistance of 2 or more helpers is required for the patient to complete the activity. If activity was not attempted, code reason: 7-Patient Refused. 9-Not Applicable-not attempted and the patient did not perform the activity before the current illness, exacerbation or injury. 10-Not Attempted due to Environmental Limitations-(lack of equipment, weather restraints, etc.). 88-Not Attempted due to Medical Conditions or Safety Concerns. Roll Left to Right (QC): 6 Sit to Lying (QC): 6 Sit to Stand (QC): 5 Chair/Osm-qy-Kfylo Xfer(QC): 4 Car Transfer (QC): 88 Gait Training Does the Patient Walk?: Yes Distance: 10' x2 Walk 10 feet (QC): 5 Walk 50 ft with 2 Turns(QC): 4 Walk 150 ft (QC): 88 Walking 10ft/uneven surface-QC: 88 Gait Persons Needed: 1 Gait Assistive Device: FWW Wheelchair Training Does the Pt Use a Wheelchair?: Yes Wheel 50 ft with 2 turns (QC): 4 Wheel 150 ft (QC): 5 Type of Wheelchair: Manual Stair Training #of Steps: 0 1 Step (curb) (QC): 88 4 Steps (QC): 88 12 Steps (QC): 88 Balance Picking up an Object (QC): 88 ADL-Treatment Eating (QC): 6 Oral Hygiene (QC): 6 Shower/Bathe Self (QC): 5 Upper Body Dressing (QC): 4 (Seated on side of bed.) Lower Body Dressing (QC): 7 On/Off Footwear (QC): 5 Toileting Hygiene (QC): 4 Toilet Transfer (QC): 4 Assessment/Plan Assessment and Plan Assess & Plan/Chief Complaint Assessment: 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 Former smoker Severe presbycusis HTN Hyponatremia 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 Urinary retention 12/13/20 Plan: IRF protocol Monitor pain O2 Nebs IS Lovenox 12/08/20: Xanax ordered Ileostomy functioning well but bag leaking Decubitus ulcer management 12/09/20: Monitor fluid restriction Salt tablets Monitor pain Ileostomy function monitoring 12/10/20: Salt tablets Fluid restriction Monitor closely Intensive therapy 12/11/20: Continue fluid restriction Salt tablets Monitor pain 12/12/20: Ambulating well today Fantastic progress 12/13/20: Urinary retention Dr Wright Monitor closely 12/14/20: Flomax started Dr Wright appreciated Pain control 12/15/20: Improved Retention per Dr Wright Wound vac 12/16/20: In/Out cath Monitor pain Monitor for UTI 12/17/20: Urecholine In/Out cath Monitor closely 12/18/20: Family training Impressive function 12/19/20: Monitor closely Pain control Impressive recovery 12/20/20: Sepsis w/u Check CXR IS Xanax Flonase 12/21/20: Flonase improved status Pain control Increase nutrition 12/22/20: Decrease pain meds Monitor closely Bladder scan 12/23/20: 2 units of blood Hold therapy today due to transfusions Monitor progress 12/24/20: Monitor closely Fall risk Improve nutrition Change ileostomy 12/25/20: NHP pursued Monitor pain (1) Myopathy (2) Ileus following gastrointestinal surgery (3) S/P right hemicolectomy (4) Presbycusis of both ears (5) Ileostomy in place (6) Anemia due to acute blood loss (7) Colon cancer (8) Hyponatremia (9) COPD (chronic obstructive pulmonary disease) (10) DVT prophylaxis WILFREDO MARTÍNEZ DO Dec 25, 2020 09:16
--- NOTE | 2020-12-25 09:38 | Speech Therapy Daily Note ---
Speech Daily Progress Note Subjective Date Seen by Provider: Dec 25, 2020 Time Seen by Provider: 00:30 Patient was alert and stated she slept well last night. Objective Patien completed task of ordering her meals as trained without assistance. Assessment Assessment Current Status: Good Progress Treatment Plan Continue Plan of Care Speech Short Term Goals Short Term Goals Short Term Goals 1) Patient will complete memory tasks related to her daily needs with minimal cues at 80% or greater. 2) Patient will complete safety awareness tasks related to her daily needs with minimal cues at 80% or greater. 3) Patient will complete problem solving tasks related to her daily needs with minimal cues at 80% or greater. Speech Detention Goals Keyboarding Teacher Goals Patient will improve cognitive-communication necessary for safety and daily living tasks with minimal assist. Speech-Plan Patient/Family Goals Patient/Family Goals: Patient plans on returning to her home where she lives with her sister. Patient expresses she doesn't think she is ready to be discharged yet though. Our team/discharge planning meeting is later today and will be discussing her best discharge plan. Treatment Plan Speech Therapy Treatment Plan: Continue Plan of Care Treatment Duration: Jan 03, 2021 Frequency: 4 times per week (Patient will receive skilled ST 4-5x per week) Estimated Hrs Per Day: .5 hour per day Rehab Potential: Fair Barriers to Learning: Patient's lack of confidence, lengthy COVID recovery. Pt/Family Agrees to Plan: Yes Safety Risks/Education Teaching Recipient: Patient Teaching Methods: Demonstration Response to Teaching: Verbalize Understanding, Return Demonstration Education Topics Provided: Safety within her room and upon discharge Time Speech Therapy Time In: 09:00 Speech Therapy Time Out: 09:30 Total Billed Time: 30 Billed Treatment Time 1, LESVIA Trejo Dec 25, 2020 09:38
--- NOTE | 2020-12-25 11:11 | Physical Therapy Daily Note ---
PT Daily Note-Current Subjective Pt in BR with OT upon arrival. Pt agrees to PT/OT co-treat. Pain Location: No Pain Reported Mental Status Patient Orientation: Person, Place, Situation Attachments: Other-See Comments (Wound Vac.) Transfers SCALE: Activities may be completed with or without assistive devices. 3-Onfcrbepme-irpltal completes the activity by him/herself with no assistance from a helper. 5-Set-up or Clean-up Assistance-helper sets up or cleans up; patient completes activity. [place] assists only prior to or following the activity. 4-Supervision or Touching Assistance-helper provides verbal cues and/or touching/steadying and/or contact guard assistance as patient completes activity. Assistance may be provided throughout the activity or intermittently. 3-Partial/Moderate Assistance-helper does LESS THAN HALF the effort. [place] lifts, holds or supports trunk or limbs, but provides less than half the effort. 2-Substantial/Maximal Assistance-helper does MORE THAN HALF the effort. [place] lifts or holds trunk or limbs and provides more than half the effort. 3-Ikbdpbleg-akibfb does ALL the effort. Patient does none of the effort to complete the activity. Or, the assistance of 2 or more helpers is required for the patient to complete the activity. If activity was not attempted, code reason: 7-Patient Refused. 9-Not Applicable-not attempted and the patient did not perform the activity before the current illness, exacerbation or injury. 10-Not Attempted due to Environmental Limitations-(lack of equipment, weather restraints, etc.). 88-Not Attempted due to Medical Conditions or Safety Concerns. Sit to Lying (QC): 5 Lying to Sitting/Side of Bed(Q: 5 Sit to Stand (QC): 5 Weight Bearing Full Weight Bearing Full Weight Bearing Gait Training Does the Patient Walk?: Yes Distance: 75', 75', 125' Walk 10 feet (QC): 4 Walk 50 ft with 2 Turns(QC): 4 Walk 150 ft (QC): 4 Gait Persons Needed: 1 Gait Assistive Device: FWW Pt takes several RB due to fatigue. Stair Training Stair Training: Handrails/: 2 handrails #of Steps: 2 1 Step (curb) (QC): 3 Stairs: Pattern: Step to Treatments Pt. agrees to work with therapy. Completed co-treatment with PT/OT due to low endurance and activity tolerance. PT focused on mobility and transfers while OT assessed ADL skills, hand placement on walker with movement, and energy conservation. Pt. transferred supine-sit with SBA. Able to ambulate to bathroom and toilet self with SBA, several times during session. Pt. requests to ambulate, and states that she would rather do this than shower self. Pt. completed ambulation with OT/PT, with multiple rest breaks needed. Pt. not on oxygen, but seems SOA with movement. Sats monitored throughout and they are 94- 95% on room air. Pt. continually asks for ice chips, and therapy reminds her that she is on a fluid restriction. Please see PT note for distance ambulated. Pt. able to ambulate with CGA with walker. Pt attempts stairs with therapy, as she will have 3 steps at home. Pt. is able to step up 2 stairs, but becomes anxious and shaky. She states that she can't go any further. Requires cues and step by step instructions to come back down stairs. Pt. takes several more rest breaks while attempting to ambulate back to room. Continual cues given to attempt for self, each task, as she will ask therapy to do for her. All needs met back in bed. Assessment Current Status: Fair Progress Pt gets anxious easily and needs encouragement to push self for improvement for DC. PT Short Term Goals Short Term Goals Time Frame: Dec 21, 2020 Roll Left & Right: 4 Sit to lyin Lying to sitting on side of be: 4 Sit to stand: 4 Chair/hhu-ac-xgcne transfer: 4 Toilet transfer: 4 Car transfer: 3 Walk 10 feet: 4 Walk 50 feet with two turns: 4 Walk 150 feet: 4 Walking 10ft on uneven surface: 4 1 step (curb): 4 Does pt use a wc or scooter: Yes Wheel 50ft w/2 turns: 4 Wheel 150 feet: 4 Type: Manual PT Alf Goals Egg Producer Goals PT Alf Goals Time Frame: Jan 04, 2021 Roll Left & Right (QC): 6 Sit to Lying (QC): 6 Lying-Sitting on Side/Bed(QC): 6 Sit to Stand (QC): 6 Chair/Bvy-bt-Fmhew Xfer(QC): 6 Toilet Transfer (QC): 6 Car Transfer (QC): 5 Does the Patient Walk: Yes Walk 10 feet (QC): 6 Walk 50ft with 2 Turns (QC): 6 Walk 150 ft (QC): 5 Walking 10ft on Uneven Surface: 6 1 Step (curb) (QC): 5 4 Steps (QC): 5 12 Steps (QC): 4 Picking up an Object (QC): 4 Does the Pt use WC or Scooter?: Yes Wheel 50 feet with 2 turns (QC: 6 Type: Manual Wheel 150 feet: 6 Type: Manual PT Plan Problem List Problem List: Activity Tolerance, Safety, Gait Treatment/Plan Treatment Plan: Continue Plan of Care Treatment Plan: Bed Mobility, Concurrent Therapy, Functional Activity Palak, Functional Strength, Group Therapy, Gait, Safety, Therapeutic Exercise, Transfers Treatment Duration: Jan 04, 2021 Frequency: At least 5 of 7 days/Wk (IRF) Estimated Hrs Per Day: 1.5 hours per day Patient and/or Family Agrees t: Yes Safety Risks/Education Patient Education: Gait Training, Steps, Correct Positioning, Safety Issues Teaching Recipient: Patient Teaching Methods: Discussion Response to Teaching: Reinforcement Needed Time/GCodes Time In: 940 Time Out: 1045 Total Billed Treatment Time: 65 Total Billed Treatment 1, FA x2 (30m), & GT x2 (35m) Co-treat w/OT for 65m CIRILODIONICIO HUGOAH SOLID FIBER PASTER OPERATOR Dec 25, 2020 11:11
--- NOTE | 2020-12-25 13:27 | Occupational Ther Daily Note ---
OT Current Status-Daily Note Subjective No pain reported. Pt. states that she is tired at end of session. Mental Status/Objective Patient Orientation: Person, Place Attachments: Colostomy/Ileostomy, Drains, IV ADL-Treatment Therapy Code Descriptions/Definitions Functional [place] Measure: 0=Not Assessed/NA 4=Minimal Assistance 1=Total Assistance 5=Supervision or Setup 2=Maximal Assistance 6=Modified [place]y 3=Moderate Assistance 7=Complete IndependenceSCALE: Activities may be completed with or without assistive devices. 9-Sgibuxajtu-ptxsijh completes the activity by him/herself with no assistance from a helper. 5-Set-up or Clean-up Assistance-helper sets up or cleans up; patient completes activity. [place] assists only prior to or following the activity. 4-Supervision or Touching Assistance-helper provides verbal cues and/or touching/steadying and/or contact guard assistance as patient completes activity. Assistance may be provided throughout the activity or intermittently. 3-Partial/Moderate Assistance-helper does LESS THAN HALF the effort. [place] lifts, holds or supports trunk or limbs, but provides less than half the effort. 2-Substantial/Maximal Assistance-helper does MORE THAN HALF the effort. [place] lifts or holds trunk or limbs and provides more than half the effort. 6-Kisugvxjr-yuojfv does ALL the effort. Patient does none of the effort to complete the activity. Or, the assistance of 2 or more helpers is required for the patient to complete the activity. If activity was not attempted, code reason: 7-Patient Refused. 9-Not Applicable-not attempted and the patient did not perform the activity before the current illness, exacerbation or injury. 10-Not Attempted due to Environmental Limitations-(lack of equipment, weather restraints, etc.). 88-Not Attempted due to Medical Conditions or Safety Concerns. Toileting Hygiene (QC): 4 Toilet Transfer (QC): 4 Other Treatment Pt. agrees to work with therapy. Completed co-treatment with PT/OT due to low endurance and activity tolerance. PT focused on mobility and transfers while OT assessed ADL skills, hand placement on walker with movement, and energy conservation. Pt. transferred supine-sit with SBA. Able to ambulate to bathroom and toilet self with SBA, several times during session. Pt. requests to ambulate, and states that she would rather do this than shower self. Pt. completed ambulation with OT/PT, with multiple rest breaks needed. Pt. not on oxygen, but seems SOA with movement. Sats monitored throughout and they are 94- 95% on room air. Pt. continually asks for ice chips, and therapy reminds her that she is on a fluid restriction. Please see PT note for distance ambulated. Pt. able to ambulate with CGA with walker. Pt attempts stairs with therapy, as she will have 3 steps at home. Pt. is able to step up 2 stairs, but becomes anxious and shaky. She states that she can't go any further. Requires cues and step by step instructions to come back down stairs. Pt. takes several more rest breaks while attempting to ambulate back to room. Continual cues given to attempt for self, each task, as she will ask therapy to do for her. All needs met back in bed. Education OT Patient Education: Correct positioning, Modified ADL techniques, Progress toward Goal/Update tx plan, Purpose of tx/functional activities, Reviewed precautions, Rehab process, Transfer techniques Teaching Recipient: Patient Teaching Methods: Demonstration, Discussion Response to Teaching: Verbalize Understanding, Return Demonstration OT Short Term Goals Short Term Goals Time Frame: Dec 23, 2020 Eatin Oral hygiene: 4 Toileting hygiene: 3 Shower/bathe self: 3 Upper body dressin Lower body dressin Putting on/taking off footwear: 3 OT Railroad Passenger Agent Goals Longterm Goals Time Frame: Jan 06, 2021 Eating (QC): 6 Oral Hygiene (QC): 6 Toileting Hygiene (QC): 4 Shower/Bathe Self (QC): 4 Upper Body Dressing (QC): 5 Lower Body Dressing (QC): 4 On/Off Footwear (QC): 4 Additional Goals: 1-Demonstrate ADL Tasks, 2-Verbalize Understanding, 3-ImproveStrength/Palak 1=Demonstrate adherence to instructed precautions during ADL tasks. 2=Patient will verbalize/demonstrate understanding of assistive devices/modifications for ADL. 3=Patient will improve strength/tolerance for activity to enable patient to perform ADL's. OT Education/Plan Problem List/Assessment Assessment: Decreased Activ Tolerance, Dependent Transfers, Impaired I ADL's, Impaired Self-Care Skills Discharge Recommendations Plan/Recommendations: Continue POC Therapy Discharge Recommendati: 24 Hour Supervision Treatment Plan/Plan of Care Treatment,Training & Education: Yes Patient would benefit from OT for education, treatment and training to promote independence in ADL's, mobility, safety and/or upper extremity function for ADL's. Plan of Care: ADL Retraining, Concurrent Therapy, Functional Mobility, W/C Management Training Treatment Duration: Dec 09, 2020 Frequency: At least 5 of 7 days/Wk (IRF) Estimated Hrs Per Day: 1.5 hours per day Agreement: Yes Rehab Potential: Fair Time/GCodes Start Time: 09:30 Stop Time: 10:45 Total Time Billed (hr/min): 75 Billed Treatment Time 1, ADL x 30minutes, FA x 45minutes- Co-treatment with PT. Please see above note for designated roles. KOKI STOKES OT Dec 25, 2020 13:27
--- NOTE | 2020-12-25 14:55 | Physical Therapy Daily Note ---
PT Daily Note-Current Subjective Pt asleep L sidelying upon arrival. Pt is very drowsy and difficult to wake. Pain Location: No Pain Reported Mental Status Patient Orientation: Person, Place, Situation Attachments: Colostomy/Ileostomy, Drains, Other-See Comments (Wound Vac.) Transfers SCALE: Activities may be completed with or without assistive devices. 0-Onintlwxje-voovqnx completes the activity by him/herself with no assistance from a helper. 5-Set-up or Clean-up Assistance-helper sets up or cleans up; patient completes activity. [place] assists only prior to or following the activity. 4-Supervision or Touching Assistance-helper provides verbal cues and/or touching/steadying and/or contact guard assistance as patient completes activity. Assistance may be provided throughout the activity or intermittently. 3-Partial/Moderate Assistance-helper does LESS THAN HALF the effort. [place] lifts, holds or supports trunk or limbs, but provides less than half the effort. 2-Substantial/Maximal Assistance-helper does MORE THAN HALF the effort. [place] lifts or holds trunk or limbs and provides more than half the effort. 9-Bcprwtrlu-nxnwmz does ALL the effort. Patient does none of the effort to complete the activity. Or, the assistance of 2 or more helpers is required for the patient to complete the activity. If activity was not attempted, code reason: 7-Patient Refused. 9-Not Applicable-not attempted and the patient did not perform the activity before the current illness, exacerbation or injury. 10-Not Attempted due to Environmental Limitations-(lack of equipment, weather restraints, etc.). 88-Not Attempted due to Medical Conditions or Safety Concerns. Weight Bearing Full Weight Bearing Full Weight Bearing Exercises Supine Ex: Ankle pumps, Quad Set, Glut sets, Heel Slides, Straight leg raise, Hip abd/add Supine Reps: 15 Treatments Pt completes Supine Ex in bed with RB as needed. Pt resting at end of tx with all needs met, call light in hand. Assessment Current Status: Fair Progress Pt fatigues easily. PT Short Term Goals Short Term Goals Time Frame: Dec 21, 2020 Roll Left & Right: 4 Sit to lyin Lying to sitting on side of be: 4 Sit to stand: 4 Chair/kcx-us-psnxx transfer: 4 Toilet transfer: 4 Car transfer: 3 Walk 10 feet: 4 Walk 50 feet with two turns: 4 Walk 150 feet: 4 Walking 10ft on uneven surface: 4 1 step (curb): 4 Does pt use a wc or scooter: Yes Wheel 50ft w/2 turns: 4 Wheel 150 feet: 4 Type: Manual PT Wave Guide Assembler Goals Senior Living Goals PT Senior Living Goals Time Frame: Jan 04, 2021 Roll Left & Right (QC): 6 Sit to Lying (QC): 6 Lying-Sitting on Side/Bed(QC): 6 Sit to Stand (QC): 6 Chair/Bst-sl-Girel Xfer(QC): 6 Toilet Transfer (QC): 6 Car Transfer (QC): 5 Does the Patient Walk: Yes Walk 10 feet (QC): 6 Walk 50ft with 2 Turns (QC): 6 Walk 150 ft (QC): 5 Walking 10ft on Uneven Surface: 6 1 Step (curb) (QC): 5 4 Steps (QC): 5 12 Steps (QC): 4 Picking up an Object (QC): 4 Does the Pt use WC or Scooter?: Yes Wheel 50 feet with 2 turns (QC: 6 Type: Manual Wheel 150 feet: 6 Type: Manual PT Plan Problem List Problem List: Activity Tolerance, Functional Strength Treatment/Plan Treatment Plan: Continue Plan of Care Treatment Plan: Bed Mobility, Concurrent Therapy, Functional Activity Palak, Functional Strength, Group Therapy, Gait, Safety, Therapeutic Exercise, Transfers Treatment Duration: Jan 04, 2021 Frequency: At least 5 of 7 days/Wk (IRF) Estimated Hrs Per Day: 1.5 hours per day Patient and/or Family Agrees t: Yes Safety Risks/Education Patient Education: Correct Positioning, Safety Issues Teaching Recipient: Patient Teaching Methods: Discussion Response to Teaching: Verbalize Understanding Time/GCodes Time In: 1330 Time Out: 1345 Total Billed Treatment Time: 15 Total Billed Treatment 1, FA (15m) PHILIPP CHAMBERS PTA Dec 25, 2020 14:54
[2020-12-25 18:06] VITALS: BP 122/57
--- NOTE | 2020-12-25 18:20 | Progress Note ---
Subjective Date Seen by a Provider: Dec 25, 2020 Time Seen by a Provider: 18:00 Subjective/Events-last exam doing well. therapy slow but steady improvement. wound appears to be closing. tolerating diet . Objective Exam Vital Signs Date Time Temp Pulse Resp B/P (MAP) Pulse Ox O2 Delivery O2 Flow Rate FiO2 12/25/20 18:06 36.8 95 20 122/57 (78) 92 Room Air 12/25/20 10:28 Room Air 12/25/20 09:00 Room Air 12/25/20 05:57 36.8 95 19 137/63 (87) 90 Room Air 12/24/20 21:52 91 Room Air 12/24/20 21:48 102 18 126/60 (82) 91 Room Air 12/24/20 18:42 92 Room Air I & O 12/25/20 06:59 Intake Total 790 ml Output Total 1855 ml Balance -1065 ml Capillary Refill : General Appearance: No Apparent Distress HEENT: PERRL/EOMI Respiratory: Chest Non Tender, Wheezing Cardiovascular: Regular Rate, Rhythm Gastrointestinal: normal bowel sounds, non tender, soft Extremity: Normal Capillary Refill Neurologic/Psychiatric: Alert, Oriented x3 Skin: Normal Color Lymphatic: No Adenopathy Results Lab Microbiology 12/24/20 Urine Culture - Preliminary, Resulted Klebsiella pneumoniae Assessment/Plan Assessment/Plan Assess & Plan/Chief Complaint transverse colonic ca s/p extended RHC, end ileostomy and mucous fistula, fascial dehiscence and fascial closure with biologic mesh. continue wound vac for secondary closure. cont rehab MICHAEL XIONG MD Dec 25, 2020 18:20
[2020-12-25] MEDS: TAMSULOSIN 0.4 MG (FLOMAX) CAP PO SCH (18:44)
[2020-12-25 21:48] VITALS: BP 132/61
[2020-12-25] MEDS: MELATONIN 3 MG TABLET PO PRN (21:57)
[2020-12-25] MEDS: ENOXAPARIN 40 MG/0.4 ML (LOVENOX) SYR SC SCH (21:58)
[2020-12-25] MEDS: HYDROcodone/APAP 7.5MG-325 MG/15 ML (LORTAB) UDC PO PRN (22:04)
[2020-12-26 05:37] VITALS: BP 104/54
[2020-12-26] MEDS: CATHETER FLUSH 10 ML SYR IV SCH ×3 (06:22→21:19)
[2020-12-26] MEDS: SUCRALFATE 1 GM (CARAFATE) TAB PO SCH ×4 (06:22→21:19)
[2020-12-26] MEDS: BETHANECHOL 25 MG (URECHOLINE) TAB PO SCH ×4 (06:22→21:19)
[2020-12-26] MEDS: NITROFURANTOIN 100 MG (MACROBID) CAPSULE PO SCH ×2 (07:38→17:56)
[2020-12-26] MEDS: amLODIPine 10 MG (NORVASC) TAB PO SCH (07:38)
[2020-12-26] MEDS: PANTOPRAZOLE 40 MG (PROTONIX) TAB PO SCH ×2 (07:38→21:20)
[2020-12-26] MEDS: FENTANYL PATCH REMOVAL TP SCH (07:39)
[2020-12-26] MEDS: NICOTINE 14 MG (NICODERM) PATCH TD SCH (07:39)
[2020-12-26] MEDS: polyethylene glycoL POWDER 17 GM (MIRALAX) PACK PO SCH ×2 (07:39→19:38)
[2020-12-26] MEDS: lisINopril 20 MG (PRINIVIL) TABLET PO SCH (07:39)
[2020-12-26] MEDS: METOCLOPRAMIDE 5 MG (REGLAN) TAB PO SCH ×2 (07:39→21:19)
[2020-12-26] MEDS: meTOprolol TARTRATE 25 MG (LOPRESSOR) TABLET PO SCH ×2 (07:39→21:19)
[2020-12-26] MEDS: NICOTINE PATCH REMOVAL TP SCH (07:40)
[2020-12-26] MEDS: SENNA W/DOCUSATE (SENOKOT S) TABLET PO SCH ×2 (07:40→19:38)
[2020-12-26] MEDS: DOCUSATE SODIUM 100 MG (COLACE) CAP PO SCH ×2 (07:40→19:38)
[2020-12-26] MEDS: FLUTICASONE NASAL SPRAY (FLONASE) 16 GM BTL NS SCH (07:41)
[2020-12-26] MEDS: SODIUM CHLORIDE 1 GM TABLET PO SCH ×2 (07:45→21:19)
[2020-12-26] MEDS: TRELEGY ELLIPTA IH SCH (07:50)
[2020-12-26] MEDS: fentaNYL PATCH 25 MCG (DURAGESIC) TD SCH (11:03)
--- NOTE | 2020-12-26 11:03 | Physical Therapy Daily Note ---
PT Daily Note-Current Subjective Pt sitting in chair in Therapy Gym working with OT upon arrival. Pt agrees to partial co-treat w/PT & OT. Pain Location: No Pain Reported Mental Status Patient Orientation: Person, Place Transfers SCALE: Activities may be completed with or without assistive devices. 1-Bifrtwppdk-vrjsmqr completes the activity by him/herself with no assistance from a helper. 5-Set-up or Clean-up Assistance-helper sets up or cleans up; patient completes activity. [place] assists only prior to or following the activity. 4-Supervision or Touching Assistance-helper provides verbal cues and/or to uching/steadying and/or contact guard assistance as patient completes activity. Assistance may be provided throughout the activity or intermittently. 3-Partial/Moderate Assistance-helper does LESS THAN HALF the effort. [place] lifts, holds or supports trunk or limbs, but provides less than half the effort. 2-Substantial/Maximal Assistance-helper does MORE THAN HALF the effort. [place] lifts or holds trunk or limbs and provides more than half the effort. 4-Knavhuhzy-oljlpx does ALL the effort. Patient does none of the effort to complete the activity. Or, the assistance of 2 or more helpers is required for the patient to complete the activity. If activity was not attempted, code reason: 7-Patient Refused. 9-Not Applicable-not attempted and the patient did not perform the activity before the current illness, exacerbation or injury. 10-Not Attempted due to Environmental Limitations-(lack of equipment, weather restraints, etc.). 88-Not Attempted due to Medical Conditions or Safety Concerns. Sit to Lying (QC): 5 Lying to Sitting/Side of Bed(Q: 5 Sit to Stand (QC): 5 Toilet Transfer (QC): 5 Weight Bearing Full Weight Bearing Full Weight Bearing Gait Training Does the Patient Walk?: Yes Distance: 50' Walk 10 feet (QC): 4 Walk 50 ft with 2 Turns(QC): 4 Walk 150 ft (QC): 4 Gait Persons Needed: 1 Stair Training Stair Training: Handrails/: 2 handrails #of Steps: 3 1 Step (curb) (QC): 3 4 Steps (QC): 7 Stairs: Pattern: Step to Exercises Supine Ex: Ankle pumps, Quad Set, Glut sets, Heel Slides, Straight leg raise, Hip abd/add Supine Reps: 15 Treatments PT joined at this point due to pt's fatigue and low endurance. Ambulated with min assist x 2 up 3 steps and back down. Pt. requires multiple cues for hand placement by OT, and foot placement by PT. Pt. indicates that she has a special step at home in front of her bed that her sister got, that is 4 inches tall. This is to assist with getting into bed that is 29 inches tall. OT simulated this set up and PT assisted with this transfer. Pt. able to transfer with CGA and cues. Multiple rest breaks taken place throughout. Ambulated back to room with walker and CGA, and pt. toileted. Agreed to wash self with washcloths up on toilet. Ambulated toward bed but therapy requested that she sit up in chair, as therapy session not over yet. Pt. declines adamently. States, "I'm done." Pt. unwilling to continue participating with any OOB activity. OT and PT talk to pt. in depth regarding need to push more through fatigue, to increase her endurance for discharge. Pt. states, "please don't scold me." Therapy assures he that they aren't, but want the best for her recovery. Pt. continues to decline, but agrees to UE/LE exercises in bed. All needs met. [id number]: Pt laying Supine in bed. Pt reports disappointed that she will DC to [facility] on Wednesday (12/30). Pt states, "They think I'm not working hard enough". DESIGN CONSULTANT and pt review HEP DESIGN CONSULTANT had previously issued. DESIGN CONSULTANT encourages pt to continue to work hard and push self so she could return to Sister's house. Pt resting in bed at end of tx with all needs met, call light in hand. Assessment Current Status: Fair Progress Pt has improved transfers and mobility although still fatigues quickly and needs encouragement to push self for improvement. PT Short Term Goals Short Term Goals Time Frame: Dec 21, 2020 Roll Left & Right: 4 Sit to lyin Lying to sitting on side of be: 4 Sit to stand: 4 Chair/okt-dx-wfdfz transfer: 4 Toilet transfer: 4 Car transfer: 3 Walk 10 feet: 4 Walk 50 feet with two turns: 4 Walk 150 feet: 4 Walking 10ft on uneven surface: 4 1 step (curb): 4 Does pt use a wc or scooter: Yes Wheel 50ft w/2 turns: 4 Wheel 150 feet: 4 Type: Manual PT Usp Goals Slasher Machine Operator Goals PT Slasher Machine Operator Goals Time Frame: Jan 04, 2021 Roll Left & Right (QC): 6 Sit to Lying (QC): 6 Lying-Sitting on Side/Bed(QC): 6 Sit to Stand (QC): 6 Chair/Rya-ur-Mkwcw Xfer(QC): 6 Toilet Transfer (QC): 6 Car Transfer (QC): 5 Does the Patient Walk: Yes Walk 10 feet (QC): 6 Walk 50ft with 2 Turns (QC): 6 Walk 150 ft (QC): 5 Walking 10ft on Uneven Surface: 6 1 Step (curb) (QC): 5 4 Steps (QC): 5 12 Steps (QC): 4 Picking up an Object (QC): 4 Does the Pt use WC or Scooter?: Yes Wheel 50 feet with 2 turns (QC: 6 Type: Manual Wheel 150 feet: 6 Type: Manual PT Plan Problem List Problem List: Activity Tolerance, Functional Strength, Safety Treatment/Plan Treatment Plan: Continue Plan of Care Treatment Plan: Bed Mobility, Concurrent Therapy, Functional Activity Palak, Functional Strength, Group Therapy, Gait, Safety, Therapeutic Exercise, Transfers Treatment Duration: Jan 04, 2021 Frequency: At least 5 of 7 days/Wk (IRF) Estimated Hrs Per Day: 1.5 hours per day Patient and/or Family Agrees t: Yes Safety Risks/Education Patient Education: Transfer Techniques, Steps, Correct Positioning, Disease Process, Safety Issues Teaching Recipient: Patient Teaching Methods: Discussion Response to Teaching: Reinforcement Needed Time/GCodes Time In: 1000 Time Out: 1420 Total Billed Treatment Time: 80 Total Billed Treatment 1, AVRIL x2 (30m) & GT x2 (30m) Co-treat w/OT for 60m ([id number]) [id number]: 1, PHILIPP ALY PTA Dec 26, 2020 11:03
[2020-12-26] MEDS: HYDROcodone/APAP 7.5MG-325 MG/15 ML (LORTAB) UDC PO PRN (11:04)
--- NOTE | 2020-12-26 12:08 | PM&R Progress Note ---
Subjective HPI/CC On Admission Date Seen by Provider: Dec 26, 2020 Time Seen by Provider: 11:45 Subjective/Events-last exam 12/26/20: FCI placement will need to be discussed Jannet was giving some ileostomy training advice Doing very well Post-void residual is next to nil Urecholine doing very well 12/25/20: Pt doing pretty well Increasing fluid restriction to 1500 CCs Emptying ileostomy on her own Hgb is 10.5 Urecholine is working very well No post-void residual May need a mcc 12/24/20: Hgb is 10.5 after two units of blood yesterday WBC is 12. 2 Sodium level 131 Jannet is training her sister to change the ileostomy bag Pain pills have decreased in frequency required 12/23/20: Hgb 6.2 today so will give two units of blood Pt is feeling pretty good I updated her on why anemia occurs during critical illness Increasing Urecholine to 25 Mg before meals and at bedtime per Dr. Wright because she is still retaining urine 12/22/20: Doing very well Granddaughter came to visit from [place] Only taking 1 pain pill per day Ileostomy bag changed LANE drain only 5cc Bladder scan 200cc 12/21/20: Patient doing well Labs reviewed CXR no acute abnl Pain improved Eating well 12/20/20: Increased work of breathing Xanax ordered CXR and labs ordered No sepsis ATX bilateral on CXR so increase use of IS No abx indicated at this time Flonase restarted Sister at bedside 12/19/20: Oxycodone maintained for pain Leg pain from muscle workouts No N/V 12/18/20: Pt doing very well Very much improved Family training will be started Ostomy has 500cc output 12/17/20: Urecholine started by Dr. Wright and Pt denies any significant new issues Pain is well controlled Improved 12/16/20: Ileostomy put out 800cc Hgb 8.4 Iron level will be ordered Sodium level 130 so will DC fluid restriction Overall much improved 12/15/20: Patient doing well Sleeps a lot Pain is improved Dr Wright managing retention 12/14/20: Flomax started Dr Wright ordered in/out caths prn Patient is doing better No falls Pain is controlled Wound vac in place 12/13/20: Voiding is an issue Retention requiring in/out cath Dr Wright appreciated Checked meds and labs 12/12/20: Patient doing well Ambulated in front of me with assistance No pain reported No new issues Fluid restriction noted 12/11/20: Patient doing well Sodium level 129 No pain reported Fluid restriction maintained Ileostomy bag no leak Wound vac still in place 12/10/20: Participation with therapy good just slow Parallel bars but could not stand Fluid restriction maintained 12/09/20: Patient feels good Hgb 9.0 Sodium 127 2 person assist still Output 600 in ileostomy Lovenox maintained 12/08/20: Patient feels good and feels stronger Hgb 8.9 Sodium level 127 Ileostomy functioning well but bag keep leaking Gluteus cleft stage 2 decubitus ulcer Review of Systems General: Fatigue, Malaise Pulmonary: Dyspnea Neurological: Weakness Objective Exam Vital Signs Vital Signs Date Time Temp Pulse Resp B/P (MAP) Pulse Ox O2 Delivery O2 Flow Rate FiO2 12/26/20 20:30 Room Air 12/26/20 16:00 36.8 86 16 120/57 (78) 93 12/21/20 20:30 92.00 Capillary Refill : General Appearance: No Apparent Distress, WD/WN, Chronically ill HEENT: PERRL/EOMI, Normal ENT Inspection, Pharynx Normal, Other ([place] severe) Neck: Normal Inspection, Supple Respiratory: Normal Breath Sounds, No Accessory Muscle Use, No Respiratory Distress Cardiovascular: Regular Rate, Rhythm, No Edema Gastrointestinal: Normal Bowel Sounds, No Organomegaly, No Pulsatile Mass, Non Tender, Soft, Other (ileostomy) Back: Normal Inspection, No CVA Tenderness, No Vertebral Tenderness Extremity: Normal Inspection, Normal Range of Motion Neurologic/Psychiatric: Alert, Oriented x3, No Motor/Sensory Deficits, Normal Mood/Affect, stone rubber II-XII Norm as Tested, Motor Weakness (3/5 all extremities) Skin: Normal Color, Warm/Dry, Other (Mild like abdominal incision C/D/I with wound vac in place. No surrounding redness. Left upper LANE drain with minimal Clear ss to serous drainage.) Lymphatic: No Adenopathy Results/Procedures Lab Patient resulted labs reviewed. FIM Transfers Therapy Code Descriptions/Definitions Functional [place] Measure: 0=Not Assessed/NA 4=Minimal Assistance 1=Total Assistance 5=Supervision or Setup 2=Maximal Assistance 6=Modified [place] 3=Moderate Assistance 7=Complete IndependenceSCALE: Activities may be completed with or without assistive devices. 7-Ynwwusxzlh-eondrib completes the activity by him/herself with no assistance from a helper. 5-Set-up or Clean-up Assistance-helper sets up or cleans up; patient completes activity. [place] assists only prior to or following the activity. 4-Supervision or Touching Assistance-helper provides verbal cues and/or touching/steadying and/or contact guard assistance as patient completes activity. Assistance may be provided throughout the activity or intermittently. 3-Partial/Moderate Assistance-helper does LESS THAN HALF the effort. [place] lifts, holds or supports trunk or limbs, but provides less than half the effort. 2-Substantial/Maximal Assistance-helper does MORE THAN HALF the effort. [place] lifts or holds trunk or limbs and provides more than half the effort. 6-Gjkwjbgth-utvayg does ALL the effort. Patient does none of the effort to complete the activity. Or, the assistance of 2 or more helpers is required for the patient to complete the activity. If activity was not attempted, code reason: 7-Patient Refused. 9-Not Applicable-not attempted and the patient did not perform the activity before the current illness, exacerbation or injury. 10-Not Attempted due to Environmental Limitations-(lack of equipment, weather restraints, etc.). 88-Not Attempted due to Medical Conditions or Safety Concerns. Roll Left to Right (QC): 6 Sit to Lying (QC): 5 Sit to Stand (QC): 5 Chair/Bzs-cj-Ffqjz Xfer(QC): 4 Car Transfer (QC): 88 Gait Training Does the Patient Walk?: Yes Distance: 75', 75', 125' Walk 10 feet (QC): 4 Walk 50 ft with 2 Turns(QC): 4 Walk 150 ft (QC): 4 Walking 10ft/uneven surface-QC: 88 Gait Persons Needed: 1 Gait Assistive Device: FWW Wheelchair Training Does the Pt Use a Wheelchair?: Yes Wheel 50 ft with 2 turns (QC): 4 Wheel 150 ft (QC): 5 Type of Wheelchair: Manual Stair Training Stair Training: Handrails/: 2 handrails #of Steps: 2 1 Step (curb) (QC): 3 4 Steps (QC): 88 12 Steps (QC): 88 Stairs: Pattern: Step to Balance Picking up an Object (QC): 88 ADL-Treatment Eating (QC): 6 Oral Hygiene (QC): 6 Shower/Bathe Self (QC): 5 Upper Body Dressing (QC): 4 (Seated on side of bed.) Lower Body Dressing (QC): 7 On/Off Footwear (QC): 5 Toileting Hygiene (QC): 4 Toilet Transfer (QC): 4 Assessment/Plan Assessment and Plan Assess & Plan/Chief Complaint Assessment: 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 Former smoker Severe presbycusis HTN Hyponatremia 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 Urinary retention 12/13/20 Plan: IRF protocol Monitor pain O2 Nebs IS Lovenox 12/08/20: Xanax ordered Ileostomy functioning well but bag leaking Decubitus ulcer management 12/09/20: Monitor fluid restriction Salt tablets Monitor pain Ileostomy function monitoring 12/10/20: Salt tablets Fluid restriction Monitor closely Intensive therapy 12/11/20: Continue fluid restriction Salt tablets Monitor pain 12/12/20: Ambulating well today Fantastic progress 12/13/20: Urinary retention Dr Wright Monitor closely 12/14/20: Flomax started Dr Wright appreciated Pain control 12/15/20: Improved Retention per Dr Wright Wound vac 12/16/20: In/Out cath Monitor pain Monitor for UTI 12/17/20: Urecholine In/Out cath Monitor closely 12/18/20: Family training Impressive function 12/19/20: Monitor closely Pain control Impressive recovery 12/20/20: Sepsis w/u Check CXR IS Xanax Flonase 12/21/20: Flonase improved status Pain control Increase nutrition 12/22/20: Decrease pain meds Monitor closely Bladder scan 12/23/20: 2 units of blood Hold therapy today due to transfusions Monitor progress 12/24/20: Monitor closely Fall risk Improve nutrition Change ileostomy 12/25/20: NHP pursued Monitor pain 12/26/20: Patient continues to progress No pain reported (1) Myopathy (2) Ileus following gastrointestinal surgery (3) S/P right hemicolectomy (4) Presbycusis of both ears (5) Ileostomy in place (6) Anemia due to acute blood loss (7) Colon cancer (8) Hyponatremia (9) COPD (chronic obstructive pulmonary disease) (10) DVT prophylaxis WILFREDO MARTÍNEZ DO Dec 26, 2020 12:08
--- NOTE | 2020-12-26 12:17 | Progress Note - Urology ---
Progress Note-Urology Progress Notes/Assess & Plan Progress/Assessment & Plan CONTINUES VOIDING AND EMPTYING WELL Final Diagnosis RETENTION SLY FORRESTER MD Dec 26, 2020 12:17
--- NOTE | 2020-12-26 12:21 | Occupational Ther Daily Note ---
OT Current Status-Daily Note Subjective No pain reported. Mental Status/Objective Patient Orientation: Person, Place ADL-Treatment Therapy Code Descriptions/Definitions Functional [place] Measure: 0=Not Assessed/NA 4=Minimal Assistance 1=Total Assistance 5=Supervision or Setup 2=Maximal Assistance 6=Modified [place] 3=Moderate Assistance 7=Complete IndependenceSCALE: Activities may be completed with or without assistive devices. 5-Gzghglrzya-zpezfzt completes the activity by him/herself with no assistance from a helper. 5-Set-up or Clean-up Assistance-helper sets up or cleans up; patient completes activity. [place] assists only prior to or following the activity. 4-Supervision or Touching Assistance-helper provides verbal cues and/or touching/steadying and/or contact guard assistance as patient completes activity. Assistance may be provided throughout the activity or intermittently. 3-Partial/Moderate Assistance-helper does LESS THAN HALF the effort. [place] lifts, holds or supports trunk or limbs, but provides less than half the effort. 2-Substantial/Maximal Assistance-helper does MORE THAN HALF the effort. [place] lifts or holds trunk or limbs and provides more than half the effort. 3-Hekknncnk-cbgcbi does ALL the effort. Patient does none of the effort to complete the activity. Or, the assistance of 2 or more helpers is required for the patient to complete the activity. If activity was not attempted, code reason: 7-Patient Refused. 9-Not Applicable-not attempted and the patient did not perform the activity before the current illness, exacerbation or injury. 10-Not Attempted due to Environmental Limitations-(lack of equipment, weather restraints, etc.). 88-Not Attempted due to Medical Conditions or Safety Concerns. Oral Hygiene (QC): 7 (Pt. declines brushing teet at sink.) Shower/Bathe Self (QC): 3 (Min assist to complete simple sponge bath on toilet.) Upper Body Dressing (QC): 5 Lower Body Dressing (QC): 88 On/Off Footwear: 4 (SBA to doff/don slipper socks with AE.) Toileting Hygiene (QC): 6 Toilet Transfer (QC): 4 Other Treatment Pt. seemed more encouraged this a.m. at beginning of treatment. She indicated that she really wanted to ambulate. OT assisted with ambulated with CGA, using walker. Pt. ambulated 3 times, with rest breaks in between. Ambulated approx imately 40-50 feet each time. Pt. also completed car transfer with min assist. Practiced doffing/donning fresh slipper socks with AE, requiring SBA. Pt. tolerated well. PT joined at this point due to pt's fatigue and low endurance. Ambulated with min assist x 2 up 3 steps and back down. Pt. requires multiple cues for hand placement by OT, and foot placement by PT. Pt. indicates that she has a special step at home in front of her bed that her sister got, that is 4 inches tall. This is to assist with getting into bed that is 29 inches tall. OT simulated this set up and PT assisted with this transfer. Pt. able to transfer with CGA and cues. Multiple rest breaks taken place throughout. Ambulated back to room with walker and CGA, and pt. toileted. Agreed to wash self with washcloths up on toilet. Ambulated toward bed but therapy requested that she sit up in chair, as therapy session not over yet. Pt. declines adamently. States, "I'm done." Pt. unwilling to continue participating with any OOB activity. OT and PT talk to pt. in depth regarding need to push more through fatigue, to increase her endurance for discharge. Pt. states, "please don't scold me." Therapy assures he that they aren't, but want the best for her recovery. Pt. continues to decline, but agrees to UE/LE exercises in bed. All needs met. Education OT Patient Education: Correct positioning, Exercise program, Modified ADL techniques, Progress toward Goal/Update tx plan, Purpose of tx/functional act ivities, Reviewed precautions, Rehab process, Transfer techniques, Use of adapted equipment Teaching Recipient: Patient Teaching Methods: Demonstration, Discussion Response to Teaching: Verbalize Understanding, Return Demonstration, Reinforcement Needed OT Short Term Goals Short Term Goals Time Frame: Dec 23, 2020 Eatin Oral hygiene: 4 Toileting hygiene: 3 Shower/bathe self: 3 Upper body dressin Lower body dressin Putting on/taking off footwear: 3 OT Intermediate Goals Intermediate Goals Time Frame: Jan 06, 2021 Eating (QC): 6 Oral Hygiene (QC): 6 Toileting Hygiene (QC): 4 Shower/Bathe Self (QC): 4 Upper Body Dressing (QC): 5 Lower Body Dressing (QC): 4 On/Off Footwear (QC): 4 Additional Goals: 1-Demonstrate ADL Tasks, 2-Verbalize Understanding, 3- ImproveStrength/Palak 1=Demonstrate adherence to instructed precautions during ADL tasks. 2=Patient will verbalize/demonstrate understanding of assistive dev ices/modifications for ADL. 3=Patient will improve strength/tolerance for activity to enable patient to perform ADL's. OT Education/Plan Problem List/Assessment Assessment: Decreased Activ Tolerance, Decreased UE Strength, Dependent Transfers, Impaired Cognition, Impaired I ADL's, Impaired Self-Care Skills Discharge Recommendations Plan/Recommendations: Continue POC Therapy Discharge Recommendati: 24 Hour Supervision, Post Acute OT Equpiment Recommendations-D/C: Hip Kit Treatment Plan/Plan of Care Treatment,Training & Education: Yes Patient would benefit from OT for education, treatment and training to promote independence in ADL's, mobility, safety and/or upper extremity function for ADL's. Plan of Care: ADL Retraining, Concurrent Therapy, Functional Mobility, W/C Management Training Treatment Duration: Dec 09, 2020 Frequency: At least 5 of 7 days/Wk (IRF) Estimated Hrs Per Day: 1.5 hours per day Agreement: Yes Rehab Potential: Fair Time/GCodes Start Time: 09:30 Stop Time: 10:45 Total Time Billed (hr/min): 75 Billed Treatment Time 7713-3621 1, ADL x 15minutes, FA x 15minutes [id number] ADL x 15minutes, FA x 30minutes- Co-treatment with PT. Please see above note for designated roles. KOKI STOKES OT Dec 26, 2020 12:21
--- NOTE | 2020-12-26 14:38 | Speech Therapy Daily Note ---
Speech Daily Progress Note Subjective Date Seen by Provider: Dec 26, 2020 Time Seen by Provider: 00:30 Patient was resting in her bed following her wound care/dressing change. Nursing reported patient was able to complete most of her dressing change. Objective Patient demonstrated sequencing of daily tasks she will need to do upon discharge at 90% with minimal cues. Assessment Assessment Current Status: Good Progress Treatment Plan Continue Plan of Care Speech Short Term Goals Short Term Goals Short Term Goals 1) Patient will complete memory tasks related to her daily needs with minimal cues at 80% or greater. 2) Patient will complete safety awareness tasks related to her daily needs with minimal cues at 80% or greater. 3) Patient will complete problem solving tasks related to her daily needs with minimal cues at 80% or greater. Speech Senior Analytic Consultant Goals Snf Goals Patient will improve cognitive-communication necessary for safety and daily living tasks with minimal assist. Speech-Plan Patient/Family Goals Patient/Family Goals: Patient will be discharging next week for further therapy at a SNF until she is able to return independently to her home. Treatment Plan Speech Therapy Treatment Plan: Continue Plan of Care Treatment Duration: Jan 03, 2021 Frequency: 4 times per week (Patient will receive skilled ST 4-5x per week) Estimated Hrs Per Day: .5 hour per day Rehab Potential: Fair Barriers to Learning: Patient's recent lengthy COVID recovery, debility, age Pt/Family Agrees to Plan: Yes Safety Risks/Education Teaching Recipient: Patient Teaching Methods: Demonstration, Discussion Response to Teaching: Verbalize Understanding, Return Demonstration Education Topics Provided: Continued safety on the ARU and upon discharge Time Speech Therapy Time In: 09:00 Speech Therapy Time Out: 09:30 Total Billed Time: 30 Billed Treatment Time 1, LESVIA Trejo Dec 26, 2020 14:38
[2020-12-26 16:00] VITALS: BP 120/57
[2020-12-26] MEDS: TAMSULOSIN 0.4 MG (FLOMAX) CAP PO SCH (17:56)
[2020-12-26] MEDS: ENOXAPARIN 40 MG/0.4 ML (LOVENOX) SYR SC SCH (21:20)
[2020-12-27 05:51] VITALS: BP 138/60
[2020-12-27] MEDS: SUCRALFATE 1 GM (CARAFATE) TAB PO SCH ×4 (06:38→21:50)
[2020-12-27] MEDS: BETHANECHOL 25 MG (URECHOLINE) TAB PO SCH ×4 (06:38→21:50)
[2020-12-27] MEDS: CATHETER FLUSH 10 ML SYR IV SCH ×3 (06:38→21:49)
[2020-12-27] MEDS: SODIUM CHLORIDE 1 GM TABLET PO SCH ×2 (07:11→21:51)
[2020-12-27] MEDS: NITROFURANTOIN 100 MG (MACROBID) CAPSULE PO SCH ×2 (07:11→16:41)
[2020-12-27] MEDS: NICOTINE 14 MG (NICODERM) PATCH TD SCH (07:11)
[2020-12-27] MEDS: polyethylene glycoL POWDER 17 GM (MIRALAX) PACK PO SCH ×2 (07:12→21:50)
[2020-12-27] MEDS: lisINopril 20 MG (PRINIVIL) TABLET PO SCH (07:12)
[2020-12-27] MEDS: PANTOPRAZOLE 40 MG (PROTONIX) TAB PO SCH ×2 (07:12→21:50)
[2020-12-27] MEDS: amLODIPine 10 MG (NORVASC) TAB PO SCH (07:12)
[2020-12-27] MEDS: METOCLOPRAMIDE 5 MG (REGLAN) TAB PO SCH ×2 (07:12→21:50)
[2020-12-27] MEDS: meTOprolol TARTRATE 25 MG (LOPRESSOR) TABLET PO SCH ×2 (07:12→21:50)
[2020-12-27] MEDS: FLUTICASONE NASAL SPRAY (FLONASE) 16 GM BTL NS SCH (07:13)
[2020-12-27] MEDS: DOCUSATE SODIUM 100 MG (COLACE) CAP PO SCH ×2 (07:13→21:51)
[2020-12-27] MEDS: SENNA W/DOCUSATE (SENOKOT S) TABLET PO SCH ×2 (07:15→21:51)
[2020-12-27] MEDS: NICOTINE PATCH REMOVAL TP SCH (07:15)
--- NOTE | 2020-12-27 09:35 | Progress Note - Urology ---
Progress Note-Urology Progress Notes/Assess & Plan Progress/Assessment & Plan CONTINUES WELL RICHARD. PLAN CHECK PVR AND START WITHDRAWING HER FROM MEDICINES Final Diagnosis RETENTION SLY FORRESTER MD Dec 27, 2020 09:35
--- NOTE | 2020-12-27 11:05 | Physical Therapy Daily Note ---
PT Daily Note-Current Subjective Pt. agrees to Rx, states she feels she has made progress Pain Location: No Pain Reported Mental Status Patient Orientation: Normal For Age Attachments: Other-See Comments (wound vacc) Transfers SCALE: Activities may be completed with or without assistive devices. 3-Khihwfdflm-cuozqik completes the activity by him/herself with no assistance from a helper. 5-Set-up or Clean-up Assistance-helper sets up or cleans up; patient completes activity. [place] assists only prior to or following the activity. 4-Supervision or Touching Assistance-helper provides verbal cues and/or touching/steadying and/or contact guard assistance as patient completes activity. Assistance may be provided throughout the activity or intermittently. 3-Partial/Moderate Assistance-helper does LESS THAN HALF the effort. [place] lifts, holds or supports trunk or limbs, but provides less than half the effort. 2-Substantial/Maximal Assistance-helper does MORE THAN HALF the effort. [place] lifts or holds trunk or limbs and provides more than half the effort. 8-Qxwlqxvjm-ogzspk does ALL the effort. Patient does none of the effort to complete the activity. Or, the assistance of 2 or more helpers is required for the patient to complete the activity. If activity was not attempted, code reason: 7-Patient Refused. 9-Not Applicable-not attempted and the patient did not perform the activity before the current illness, exacerbation or injury. 10-Not Attempted due to Environmental Limitations-(lack of equipment, weather restraints, etc.). 88-Not Attempted due to Medical Conditions or Safety Concerns. Roll Left & Right (QC): 6 Sit to Lying (QC): 6 Lying to Sitting/Side of Bed(Q: 6 Sit to Stand (QC): 6 Chair/Jaw-zq-Anhno Xfer(QC): 5 Toilet Transfer (QC): 6 pts bed at home 29 inches off floor and pt. uses a step to get in bed, this was simulated in height as well as with a step in to bed as similar to pts description as possible . Pt. accomplished this x 3 trials with SBA. Weight Bearing Full Weight Bearing Full Weight Bearing Gait Training Does the Patient Walk?: Yes Walk 10 feet (QC): 5 Walk 50 ft with 2 Turns(QC): 5 Walk 150 ft (QC): 5 Gait Persons Needed: 1 Gait Assistive Device: FWW slow, flexed posture, assist for wound vacc. some dyspnea noted but O2 sats steady at 98% Exercises Supine Ex: Bridging, Ankle pumps, Quad Set, Rolling, Glut sets, Heel Slides, Short Arc Quads, Scooting, Straight leg raise, Hip abd/add Supine Reps: 15 Neuromuscular balance challenges in sitting and standing with balloon ball toss, and standing ring toss, coordinated by OT Treatments OT PT co Rx for balance drills , functional mobility, and safety . Pt. progressed well and likely will not need further co Rx unless she declines Assessment Current Status: Good Progress progress in all phases PT Short Term Goals Short Term Goals Time Frame: Dec 21, 2020 Roll Left & Right: 4 Sit to lyin Lying to sitting on side of be: 4 Sit to stand: 4 Chair/qrv-tp-dupwl transfer: 4 Toilet transfer: 4 Car transfer: 3 Walk 10 feet: 4 Walk 50 feet with two turns: 4 Walk 150 feet: 4 Walking 10ft on uneven surface: 4 1 step (curb): 4 Does pt use a wc or scooter: Yes Wheel 50ft w/2 turns: 4 Wheel 150 feet: 4 Type: Manual PT Chcf Goals Chcf Goals PT Plastics Nurse Goals Time Frame: Jan 04, 2021 Roll Left & Right (QC): 6 Sit to Lying (QC): 6 Lying-Sitting on Side/Bed(QC): 6 Sit to Stand (QC): 6 Chair/Dqd-ge-Wyhmv Xfer(QC): 6 Toilet Transfer (QC): 6 Car Transfer (QC): 5 Does the Patient Walk: Yes Walk 10 feet (QC): 6 Walk 50ft with 2 Turns (QC): 6 Walk 150 ft (QC): 5 Walking 10ft on Uneven Surface: 6 1 Step (curb) (QC): 5 4 Steps (QC): 5 12 Steps (QC): 4 Picking up an Object (QC): 4 Does the Pt use WC or Scooter?: Yes Wheel 50 feet with 2 turns (QC: 6 Type: Manual Wheel 150 feet: 6 Type: Manual PT Plan Treatment/Plan Treatment Plan: Continue Plan of Care Treatment Plan: Bed Mobility, Concurrent Therapy, Functional Activity [place], Functional Strength, Group Therapy, Gait, Safety, Therapeutic Exercise, Transfers Treatment Duration: Jan 04, 2021 Frequency: At least 5 of 7 days/Wk (IRF) Estimated Hrs Per Day: 1.5 hours per day Patient and/or Family Agrees t: Yes Safety Risks/Education Patient Education: Gait Training, Transfer Techniques, Steps (single step to bed), Correct Positioning, Disease Process, Safety Issues Teaching Recipient: Patient Teaching Methods: Demonstration, Discussion Response to Teaching: Verbalize Understanding, Return Demonstration, Reinforcement Needed Time/GCodes Time In: 1000 Time Out: 1100 Total Billed Treatment Time: 60 Total Billed Treatment 1,GT20m,EX10m,FA15m,NM15m DUSTIN MARSH PTA Dec 27, 2020 11:05
[2020-12-27] MEDS: HYDROcodone/APAP 7.5MG-325 MG/15 ML (LORTAB) UDC PO PRN (11:14)
--- NOTE | 2020-12-27 11:19 | Progress Note ---
Subjective Date Seen by a Provider: Dec 27, 2020 Time Seen by a Provider: 10:00 Subjective/Events-last exam doing well. wound smaller and granulating in well. tolerating diet with functional ostomies. no fever/chills. Objective Exam Vital Signs Date Time Temp Pulse Resp B/P (MAP) Pulse Ox O2 Delivery O2 Flow Rate FiO2 12/27/20 05:51 37.0 94 19 138/60 (86) 92 Room Air 12/26/20 20:30 Room Air 12/26/20 18:46 Room Air 12/26/20 16:00 36.8 86 16 120/57 (78) 93 I & O 12/27/20 07:00 Intake Total 1490 ml Output Total 1879 ml Balance -389 ml Capillary Refill : General Appearance: No Apparent Distress HEENT: PERRL/EOMI Neck: Full Range of Motion Respiratory: Chest Non Tender, Wheezing Cardiovascular: Regular Rate, Rhythm Gastrointestinal: normal bowel sounds, soft Extremity: Normal Capillary Refill Neurologic/Psychiatric: Alert, Oriented x3 Skin: Normal Color, Other (wound clean/dry, wound vac intact and changed today) Lymphatic: No Adenopathy Results Lab Microbiology 12/24/20 Urine Culture - Final, Complete Klebsiella pneumoniae Assessment/Plan Assessment/Plan Assess & Plan/Chief Complaint transverse colonic ca s/p extended RHC, end ileostomy and mucous fistula, fascial dehiscence and fascial closure with biologic mesh. continue wound vac for secondary closure. cont rehab MICHAEL XIONG MD Dec 27, 2020 11:19
--- NOTE | 2020-12-27 11:24 | Occupational Ther Daily Note ---
OT Current Status-Daily Note Subjective Pt alert, lying in bed. Pt agrees to therapy. No c/o pain until end of session when she asked nrsg for a pain pill, did not rate. Mental Status/Objective Patient Orientation: Person, Place, Time, Situation Attachments: Drains (wound vac, drain), IV ADL-Treatment OT/PT co-treat (100-1100), skilled care and instruction requires 2 clinicians due to low endurance and working with higher level balance skills. PT focusing on transfers, ambulation and B LE strengthening while OT focusing on ADLs, functional transfers and B UE strengthening. Pt declined shower/sponge bath stating that she had one yesterday. Pt requested to use toilet 2x's during session and agrees to complete oral care. SBA and assist with wound vac/tubing to transfer to toilet using FWW. Pt completed clothing manipulation and hygiene with SBA due to wound vac. Pt stood at sink to complete oral care independently. Therapy Code Descriptions/Definitions Functional [place] Measure: 0=Not Assessed/NA 4=Minimal Assistance 1=Total Assistance 5=Supervision or Setup 2=Maximal Assistance 6=Modified [place] 3=Moderate Assistance 7=Complete IndependenceSCALE: Activities may be completed with or without assistive devices. 8-Yhlkxwoglr-megmxkl completes the activity by him/herself with no assistance f rom a helper. 5-Set-up or Clean-up Assistance-helper sets up or cleans up; patient completes activity. [place] assists only prior to or following the activity. 4-Supervision or Touching Assistance-helper provides verbal cues and/or touching/steadying and/or contact guard assistance as patient completes activity. Assistance may be provided throughout the activity or intermittently. 3-Partial/Moderate Assistance-helper does LESS THAN HALF the effort. [place] lifts, holds or supports trunk or limbs, but provides less than half the effort. 2-Substantial/Maximal Assistance-helper does MORE THAN HALF the effort. [place] lifts or holds trunk or limbs and provides more than half the effort. 9-Umaoqabgl-ltkkcb does ALL the effort. Patient does none of the effort to complete the activity. Or, the assistance of 2 or more helpers is required for the patient to complete the activity. If activity was not attempted, code reason: 7-Patient Refused. 9-Not Applicable-not attempted and the patient did not perform the activity before the current illness, exacerbation or injury. 10-Not Attempted due to Environmental Limitations-(lack of equipment, weather restraints, etc.). 88-Not Attempted due to Medical Conditions or Safety Concerns. Oral Hygiene (QC): 6 Toileting Hygiene (QC): 4 Toilet Transfer (QC): 4 Other Treatment Pt ambulated to therapy gym using FWW and assist with wound vac/tubing. Pt working on simulation of transfer onto her 29" high bed. Pt demonstrated ability to complete using simulation of her step with 2 rails she has at home. Pt then completed dynamic standing tasks with no LOB noted. B UE strengthening against gravity and using 1# wt completed to increase strength and activity tolerance for daily functional tasks. Reaching and hitting object with B UE against gravity, 5 min 2x's. 2 dowel donal exercises 15 reps each in supine. Using 1# wts- bicep curls 15 reps 2 sets, tricep punches 10 reps 2 sets, shldr abd to 90* 10 reps 2 sets. After session, pt lying in bed with call light/phone in reach. All needs met in room. OT Short Term Goals Short Term Goals Time Frame: Dec 23, 2020 Eatin Oral hygiene: 4 Toileting hygiene: 3 Shower/bathe self: 3 Upper body dressin Lower body dressin Putting on/taking off footwear: 3 OT Correction Goals Correction Goals Time Frame: Jan 06, 2021 Eating (QC): 6 Oral Hygiene (QC): 6 Toileting Hygiene (QC): 4 Shower/Bathe Self (QC): 4 Upper Body Dressing (QC): 5 Lower Body Dressing (QC): 4 On/Off Footwear (QC): 4 Additional Goals: 1-Demonstrate ADL Tasks, 2-Verbalize Understanding, 3- ImproveStrength/[place] 1=Demonstrate adherence to instructed precautions during ADL tasks. 2=Patient will verbalize/demonstrate understanding of assistive devices/modifications for ADL. 3=Patient will improve strength/tolerance for activity to enable patient to perform ADL's. OT Education/Plan Problem List/Assessment Assessment: Decreased Activ Tolerance, Decreased UE Strength, Impaired Funct Balance Discharge Recommendations Plan/Recommendations: Continue POC Treatment Plan/Plan of Care Patient would benefit from OT for education, treatment and training to promote independence in ADL's, mobility, safety and/or upper extremity function for ADL's. Plan of Care: ADL Retraining, Concurrent Therapy, Functional Mobility, W/C Management Training Treatment Duration: Dec 09, 2020 Frequency: At least 5 of 7 days/Wk (IRF) Estimated Hrs Per Day: 1.5 hours per day Agreement: Yes Rehab Potential: Fair Time/GCodes Start Time: 10:00 Stop Time: 11:15 Total Time Billed (hr/min): 75 Billed Treatment Time 1 visit-FA 1 (20 min) EX 1 (20 min) ADL 2 (35 min) co-treat with [id number], individual [id number] RAIZA BROWNING Dec 27, 2020 11:24
--- NOTE | 2020-12-27 11:37 | PM&R Progress Note ---
Subjective HPI/CC On Admission Date Seen by Provider: Dec 27, 2020 Time Seen by Provider: 11:45 Subjective/Events-last exam 12/27/20: Going to [place] PICC line will be DC Wednesday No pain reported 12/26/20: long term placement will need to be discussed Jannet was giving some ileostomy training advice Doing very well Post-void residual is next to nil Urecholine doing very well 12/25/20: Pt doing pretty well Increasing fluid restriction to 1500 CCs Emptying ileostomy on her own Hgb is 10.5 Urecholine is working very well No post-void residual May need [place] [facility] 12/24/20: Hgb is 10.5 after two units of blood yesterday WBC is 12. 2 Sodium level 131 Jannet is training her sister to change the ileostomy bag Pain pills have decreased in frequency required 12/23/20: Hgb 6.2 today so will give two units of blood Pt is feeling pretty good I updated her on why anemia occurs during critical illness Increasing Urecholine to 25 Mg before meals and at bedtime per Dr. Wright because she is still retaining urine 12/22/20: Doing very well Granddaughter came to visit from [place] Only taking 1 pain pill per day Ileostomy bag changed LANE drain only 5cc Bladder scan 200cc 12/21/20: Patient doing well Labs reviewed CXR no acute abnl Pain improved Eating well 12/20/20: Increased work of breathing Xanax ordered CXR and labs ordered No sepsis ATX bilateral on CXR so increase use of IS No abx indicated at this time Flonase restarted Sister at bedside 12/19/20: Oxycodone maintained for pain Leg pain from muscle workouts No N/V 12/18/20: Pt doing very well Very much improved Family training will be started Ostomy has 500cc output 12/17/20: Urecholine started by Dr. Wright and Pt denies any significant new issues Pain is well controlled Improved 12/16/20: Ileostomy put out 800cc Hgb 8.4 Iron level will be ordered Sodium level 130 so will DC fluid restriction Overall much improved 12/15/20: Patient doing well Sleeps a lot Pain is improved Dr Wright managing retention 12/14/20: Flomax started Dr Wright ordered in/out caths prn Patient is doing better No falls Pain is controlled Wound vac in place 12/13/20: Voiding is an issue Retention requiring in/out cath Dr Wright appreciated Checked meds and labs 12/12/20: Patient doing well Ambulated in front of me with assistance No pain reported No new issues Fluid restriction noted 12/11/20: Patient doing well Sodium level 129 No pain reported Fluid restriction maintained Ileostomy bag no leak Wound vac still in place 12/10/20: Participation with therapy good just slow Parallel bars but could not stand Fluid restriction maintained 12/09/20: Patient feels good Hgb 9.0 Sodium 127 2 person assist still Output 600 in ileostomy Lovenox maintained 12/08/20: Patient feels good and feels stronger Hgb 8.9 Sodium level 127 Ileostomy functioning well but bag keep leaking Gluteus cleft stage 2 decubitus ulcer Review of Systems General: Fatigue, Malaise Neurological: Weakness Objective Exam Vital Signs Vital Signs Date Time Temp Pulse Resp B/P (MAP) Pulse Ox O2 Delivery O2 Flow Rate FiO2 12/28/20 05:58 36.8 87 18 123/60 (81) 93 Room Air Capillary Refill : General Appearance: No Apparent Distress, WD/WN, Chronically ill HEENT: PERRL/EOMI, Normal ENT Inspection, Pharynx Normal Neck: Full Range of Motion, Normal Inspection, Non Tender, Supple Respiratory: Chest Non Tender, Lungs Clear, Normal Breath Sounds, No Respiratory Distress, Wheezing Cardiovascular: Regular Rate, Rhythm, No Edema, No Gallop, No JVD, No Murmur, Normal Peripheral Pulses Gastrointestinal: Normal Bowel Sounds, No Organomegaly, No Pulsatile Mass, Non Tender, Soft, Other (ileostomy) Back: Normal Inspection, No CVA Tenderness, No Vertebral Tenderness Extremity: Normal Capillary Refill, Normal Inspection, Normal Range of Motion, Non Tender, No Calf Tenderness Neurologic/Psychiatric: Alert, Oriented x3, No Motor/Sensory Deficits, Normal Mood/Affect, career development manager II-XII Norm as Tested Skin: Normal Color, Warm/Dry, Other (wound clean/dry, wound vac intact and changed today) Lymphatic: No Adenopathy Results/Procedures Lab Laboratory Tests 12/28/20 06:05 Patient resulted labs reviewed. FIM Transfers Therapy Code Descriptions/Definitions Functional [place] Measure: 0=Not Assessed/NA 4=Minimal Assistance 1=Total Assistance 5=Supervision or Setup 2=Maximal Assistance 6=Modified [place] 3=Moderate Assistance 7=Complete IndependenceSCALE: Activities may be completed with or without assistive devices. 0-Persduqscw-xsvrwwa completes the activity by him/herself with no assistance from a helper. 5-Set-up or Clean-up Assistance-helper sets up or cleans up; patient completes activity. [place] assists only prior to or following the activity. 4-Supervision or Touching Assistance-helper provides verbal cues and/or touching/steadying and/or contact guard assistance as patient completes activity. Assistance may be provided throughout the activity or intermittently. 3-Partial/Moderate Assistance-helper does LESS THAN HALF the effort. [place] lifts, holds or supports trunk or limbs, but provides less than half the effort. 2-Substantial/Maximal Assistance-helper does MORE THAN HALF the effort. [place] lifts or holds trunk or limbs and provides more than half the effort. 2-Wdezjhwwm-osjjsb does ALL the effort. Patient does none of the effort to complete the activity. Or, the assistance of 2 or more helpers is required for t he patient to complete the activity. If activity was not attempted, code reason: 7-Patient Refused. 9-Not Applicable-not attempted and the patient did not perform the activity before the current illness, exacerbation or injury. 10-Not Attempted due to Environmental Limitations-(lack of equipment, weather restraints, etc.). 88-Not Attempted due to Medical Conditions or Safety Concerns. Roll Left to Right (QC): 6 Sit to Lying (QC): 6 Sit to Stand (QC): 6 Chair/Jlf-qm-Zdwrs Xfer(QC): 5 Car Transfer (QC): 88 Gait Training Does the Patient Walk?: Yes Distance: 50' Walk 10 feet (QC): 5 Walk 50 ft with 2 Turns(QC): 5 Walk 150 ft (QC): 5 Walking 10ft/uneven surface-QC: 88 Gait Persons Needed: 1 Gait Assistive Device: FWW Wheelchair Training Does the Pt Use a Wheelchair?: Yes Wheel 50 ft with 2 turns (QC): 4 Wheel 150 ft (QC): 5 Type of Wheelchair: Manual Stair Training Stair Training: Handrails/: 2 handrails #of Steps: 3 1 Step (curb) (QC): 3 4 Steps (QC): 7 12 Steps (QC): 88 Stairs: Pattern: Step to Balance Picking up an Object (QC): 88 ADL-Treatment Eating (QC): 6 Oral Hygiene (QC): 6 Shower/Bathe Self (QC): 3 (Min assist to complete simple sponge bath on toilet.) Upper Body Dressing (QC): 5 Lower Body Dressing (QC): 88 On/Off Footwear (QC): 4 (SBA to doff/don slipper socks with AE.) Toileting Hygiene (QC): 4 Toilet Transfer (QC): 4 Assessment/Plan Assessment and Plan Assess & Plan/Chief Complaint Assessment: 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 Former smoker Severe presbycusis HTN Hyponatremia 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 Urinary retention 12/13/20 Plan: IRF protocol Monitor pain O2 Nebs IS Lovenox 12/08/20: Xanax ordered Ileostomy functioning well but bag leaking Decubitus ulcer management 12/09/20: Monitor fluid restriction Salt tablets Monitor pain Ileostomy function monitoring 12/10/20: Salt tablets Fluid restriction Monitor closely Intensive therapy 12/11/20: Continue fluid restriction Salt tablets Monitor pain 12/12/20: Ambulating well today Fantastic progress 12/13/20: Urinary retention Dr Wright Monitor closely 12/14/20: Flomax started Dr Wright appreciated Pain control 12/15/20: Improved Retention per Dr Wright Wound vac 12/16/20: In/Out cath Monitor pain Monitor for UTI 12/17/20: Urecholine In/Out cath Monitor closely 12/18/20: Family training Impressive function 12/19/20: Monitor closely Pain control Impressive recovery 12/20/20: Sepsis w/u Check CXR IS Xanax Flonase 12/21/20: Flonase improved status Pain control Increase nutrition 12/22/20: Decrease pain meds Monitor closely Bladder scan 12/23/20: 2 units of blood Hold therapy today due to transfusions Monitor progress 12/24/20: Monitor closely Fall risk Improve nutrition Change ileostomy 12/25/20: NHP pursued Monitor pain 12/26/20: Patient continues to progress No pain reported 12/27/20: DC NH Wednesday (1) Myopathy (2) Ileus following gastrointestinal surgery (3) S/P right hemicolectomy (4) Presbycusis of both ears (5) Ileostomy in place (6) Anemia due to acute blood loss (7) Colon cancer (8) Hyponatremia (9) COPD (chronic obstructive pulmonary disease) (10) DVT prophylaxis WILFREDO MARTÍNEZ 5, 2021 11:37
--- NOTE | 2020-12-27 11:38 | Speech Therapy Daily Note ---
Speech Daily Progress Note Subjective Date Seen by Provider: Dec 27, 2020 Time Seen by Provider: 00:30 Patient had just finished getting her dressing changed with her assisting. Her sister was also present. Objective Patient completed a series of q/a related to her discharge next week at 90% with minimal cuing. Assessment Assessment Current Status: Good Progress Treatment Plan Continue Plan of Care Speech Short Term Goals Short Term Goals Short Term Goals 1) Patient will complete memory tasks related to her daily needs with minimal cues at 80% or greater. 2) Patient will complete safety awareness tasks related to her daily needs with minimal cues at 80% or greater. 3) Patient will complete problem solving tasks related to her daily needs with minimal cues at 80% or greater. Speech Long-Term Goals Clerical Clerk Goals Patient will improve cognitive-communication necessary for safety and daily living tasks with minimal assist. Speech-Plan Patient/Family Goals Patient/Family Goals: Patient is being discharged next week for further therapy in a SNF. Treatment Plan Speech Therapy Treatment Plan: Continue Plan of Care Treatment Duration: Jan 03, 2021 Frequency: 4 times per week (Patient will receive skilled ST 4-5x per week) Estimated Hrs Per Day: .5 hour per day Rehab Potential: Fair Barriers to Learning: Patient's lengthy COVID recovery. Pt/Family Agrees to Plan: Yes Safety Risks/Education Teaching Recipient: Patient Teaching Methods: Demonstration, Discussion Response to Teaching: Verbalize Understanding, Return Demonstration Education Topics Provided: Safety while inpatient and upon discharge. Time Speech Therapy Time In: 09:30 Speech Therapy Time Out: 10:00 Total Billed Time: 30 Billed Treatment Time 1LOC [facility] Dec 27, 2020 11:38
[2020-12-27] MEDS: TRELEGY ELLIPTA IH SCH (11:42)
--- NOTE | 2020-12-27 14:55 | Physical Therapy Daily Note ---
PT Daily Note-Current Subjective Agrees to Rx. Pain Location: No Pain Reported Mental Status Patient Orientation: Normal For Age Attachments: Other-See Comments (wv) Transfers SCALE: Activities may be completed with or without assistive devices. 5-Rukmrsowji-rzrjknf completes the activity by him/herself with no assistance from a helper. 5-Set-up or Clean-up Assistance-helper sets up or cleans up; patient completes activity. [place] assists only prior to or following the activity. 4-Supervision or Touching Assistance-helper provides verbal cues and/or touching/steadying and/or contact guard assistance as patient completes activity. Assistance may be provided throughout the activity or intermittently. 3-Partial/Moderate Assistance-helper does LESS THAN HALF the effort. [place] lifts, holds or supports trunk or limbs, but provides less than half the effort. 2-Substantial/Maximal Assistance-helper does MORE THAN HALF the effort. [place] lifts or holds trunk or limbs and provides more than half the effort. 5-Xmlxniqpl-oeneci does ALL the effort. Patient does none of the effort to complete the activity. Or, the assistance of 2 or more helpers is required for the patient to complete the activity. If activity was not attempted, code reason: 7-Patient Refused. 9-Not Applicable-not attempted and the patient did not perform the activity b efore the current illness, exacerbation or injury. 10-Not Attempted due to Environmental Limitations-(lack of equipment, weather restraints, etc.). 88-Not Attempted due to Medical Conditions or Safety Concerns. Weight Bearing Full Weight Bearing Full Weight Bearing Exercises Supine Ex: Bridging, Ankle pumps, Quad Set, Rolling, Glut sets, Heel Slides, Short Arc Quads, Scooting, Straight leg raise, Hip abd/add Supine Reps: 15 PT Short Term Goals Short Term Goals Time Frame: Dec 21, 2020 Roll Left & Right: 4 Sit to lyin Lying to sitting on side of be: 4 Sit to stand: 4 Chair/afj-pu-uonse transfer: 4 Toilet transfer: 4 Car transfer: 3 Walk 10 feet: 4 Walk 50 feet with two turns: 4 Walk 150 feet: 4 Walking 10ft on uneven surface: 4 1 step (curb): 4 Does pt use a wc or scooter: Yes Wheel 50ft w/2 turns: 4 Wheel 150 feet: 4 Type: Manual PT Printed Circuit Board Assembler Goals Printed Circuit Board Assembler Goals PT Printed Circuit Board Assembler Goals Time Frame: Jan 04, 2021 Roll Left & Right (QC): 6 Sit to Lying (QC): 6 Lying-Sitting on Side/Bed(QC): 6 Sit to Stand (QC): 6 Chair/Qjk-se-Nphwv Xfer(QC): 6 Toilet Transfer (QC): 6 Car Transfer (QC): 5 Does the Patient Walk: Yes Walk 10 feet (QC): 6 Walk 50ft with 2 Turns (QC): 6 Walk 150 ft (QC): 5 Walking 10ft on Uneven Surface: 6 1 Step (curb) (QC): 5 4 Steps (QC): 5 12 Steps (QC): 4 Picking up an Object (QC): 4 Does the Pt use WC or Scooter?: Yes Wheel 50 feet with 2 turns (QC: 6 Type: Manual Wheel 150 feet: 6 Type: Manual PT Plan Treatment/Plan Treatment Plan: Continue Plan of Care Treatment Plan: Bed Mobility, Concurrent Therapy, Functional Activity [place], Functional Strength, Group Therapy, Gait, Safety, Therapeutic Exercise, Transfers Treatment Duration: Jan 04, 2021 Frequency: At least 5 of 7 days/Wk (IRF) Estimated Hrs Per Day: 1.5 hours per day Patient and/or Family Agrees t: Yes Time/GCodes Time In: 1415 Time Out: 1430 Total Billed Treatment Time: 15 Total Billed Treatment 1,EX15m DUSTIN MARSH PTA Dec 27, 2020 14:55
[2020-12-27 16:15] VITALS: BP 119/56
[2020-12-27] MEDS: ENOXAPARIN 40 MG/0.4 ML (LOVENOX) SYR SC SCH (21:50)
[2020-12-28 05:58] VITALS: BP 123/60
[2020-12-28] MEDS: SUCRALFATE 1 GM (CARAFATE) TAB PO SCH ×4 (06:06→20:43)
[2020-12-28] MEDS: CATHETER FLUSH 10 ML SYR IV SCH ×3 (06:06→20:43)
[2020-12-28] MEDS: BETHANECHOL 25 MG (URECHOLINE) TAB PO SCH ×4 (06:06→20:43)
[2020-12-28 06:19] LABS: BASOPHILS # (AUTO) 0.1 10^3/uL (0.0-0.1); BASOPHILS % (AUTO) 1 % (0-10); EOSINOPHILS # (AUTO) 0.5 10^3/uL (0.0-0.3); EOSINOPHILS % (AUTO) 6 % (0-10); HEMATOCRIT 33 % (35-52); HEMOGLOBIN 10.6 g/dL (11.5-16.0); LYMPHOCYTES # (AUTO) 1.9 10^3/uL (1.0-4.0); LYMPHOCYTES % (AUTO) 21 % (12-44); MEAN CORPUSCULAR HEMOGLOBIN 29 pg (25-34); MEAN CORPUSCULAR HGB CONC 32 g/dL (32-36); MEAN CORPUSCULAR VOLUME 90 fL (80-99); MEAN PLATELET VOLUME 8.6 fL (9.0-12.2); MONOCYTES # (AUTO) 0.9 10^3/uL (0.0-1.0); MONOCYTES % (AUTO) 10 % (0-12); NEUTROPHILS # (AUTO) 5.2 10^3/uL (1.8-7.8); NEUTROPHILS % (AUTO) 60 % (42-75); PLATELET COUNT 312 10^3/uL (130-400); WHITE BLOOD COUNT 8.7 10^3/uL (4.3-11.0)
[2020-12-28 06:29] LABS: ALBUMIN 3.1 GM/DL (3.2-4.5); CHLORIDE 103 MMOL/L (98-107); POTASSIUM 3.7 MMOL/L (3.6-5.0); SODIUM 132 MMOL/L (135-145)
[2020-12-28 06:31] LABS: CALCIUM 7.6 MG/DL (8.5-10.1)
[2020-12-28 06:32] LABS: GLUCOSE 116 MG/DL (70-105); TOTAL PROTEIN 6.8 GM/DL (6.4-8.2)
[2020-12-28 06:33] LABS: BILIRUBIN,TOTAL 0.3 MG/DL (0.1-1.0); CARBON DIOXIDE 20 MMOL/L (21-32)
[2020-12-28 06:35] LABS: ALKALINE PHOSPHATASE 121 U/L (40-136); GFR ESTIMATED > 60
[2020-12-28 06:36] LABS: BUN/CREATININE RATIO 18
[2020-12-28 06:38] LABS: ALANINE AMINOTRANSFERASE 27 U/L (0-55)
--- NOTE | 2020-12-28 07:35 | PM&R Progress Note ---
Subjective HPI/CC On Admission Date Seen by Provider: Dec 28, 2020 Time Seen by Provider: 09:40 Subjective/Events-last exam 12/28/20: Patient doing well No pain reported [place] Wednesday Xanax prn O2 wean Sodium level 132 12/27/20: Going to [place] PICC line will be DC Wednesday No pain reported 12/26/20: residential placement will need to be discussed Jannet was giving some ileostomy training advice Doing very well Post-void residual is next to nil Urecholine doing very well 12/25/20: Pt doing pretty well Increasing fluid restriction to 1500 CCs Emptying ileostomy on her own Hgb is 10.5 Urecholine is working very well No post-void residual May need a half-way 12/24/20: Hgb is 10.5 after two units of blood yesterday WBC is 12. 2 Sodium level 131 Jannet is training her sister to change the ileostomy bag Pain pills have decreased in frequency required 12/23/20: Hgb 6.2 today so will give two units of blood Pt is feeling pretty good I updated her on why anemia occurs during critical illness Increasing Urecholine to 25 Mg before meals and at bedtime per Dr. Wright because she is still retaining urine 12/22/20: Doing very well Granddaughter came to visit from [place] Only taking 1 pain pill per day Ileostomy bag changed LANE drain only 5cc Bladder scan 200cc 12/21/20: Patient doing well Labs reviewed CXR no acute abnl Pain improved Eating well 12/20/20: Increased work of breathing Xanax ordered CXR and labs ordered No sepsis ATX bilateral on CXR so increase use of IS No abx indicated at this time Flonase restarted Sister at bedside 12/19/20: Oxycodone maintained for pain Leg pain from muscle workouts No N/V 12/18/20: Pt doing very well Very much improved Family training will be started Ostomy has 500cc output 12/17/20: Urecholine started by Dr. Wright and Pt denies any significant new issues Pain is well controlled Improved 12/16/20: Ileostomy put out 800cc Hgb 8.4 Iron level will be ordered Sodium level 130 so will DC fluid restriction Overall much improved 12/15/20: Patient doing well Sleeps a lot Pain is improved Dr Wright managing retention 12/14/20: Flomax started Dr Wright ordered in/out caths prn Patient is doing better No falls Pain is controlled Wound vac in place 12/13/20: Voiding is an issue Retention requiring in/out cath Dr Wright appreciated Checked meds and labs 12/12/20: Patient doing well Ambulated in front of me with assistance No pain reported No new issues Fluid restriction noted 12/11/20: Patient doing well Sodium level 129 No pain reported Fluid restriction maintained Ileostomy bag no leak Wound vac still in place 12/10/20: Participation with therapy good just slow Parallel bars but could not stand Fluid restriction maintained 12/09/20: Patient feels good Hgb 9.0 Sodium 127 2 person assist still Output 600 in ileostomy Lovenox maintained 12/08/20: Patient feels good and feels stronger Hgb 8.9 Sodium level 127 Ileostomy functioning well but bag keep leaking Gluteus cleft stage 2 decubitus ulcer Review of Systems General: Fatigue Objective Exam Vital Signs Vital Signs Date Time Temp Pulse Resp B/P (MAP) Pulse Ox O2 Delivery O2 Flow Rate FiO2 12/28/20 17:10 36.6 82 20 123/58 (79) 93 Room Air Capillary Refill : General Appearance: No Apparent Distress, WD/WN, Chronically ill HEENT: PERRL/EOMI, Normal ENT Inspection, Pharynx Normal Neck: Full Range of Motion, Normal Inspection, Non Tender, Supple Respiratory: Chest Non Tender, Lungs Clear, Normal Breath Sounds, No Respiratory Distress, Wheezing Cardiovascular: Regular Rate, Rhythm, No Edema, No Gallop, No JVD, No Murmur, Normal Peripheral Pulses Gastrointestinal: Normal Bowel Sounds, No Organomegaly, No Pulsatile Mass, Non Tender, Soft, Other (ileostomy) Back: Normal Inspection, No CVA Tenderness, No Vertebral Tenderness Extremity: Normal Capillary Refill, Normal Inspection, Normal Range of Motion, Non Tender, No Calf Tenderness Neurologic/Psychiatric: Alert, Oriented x3, No Motor/Sensory Deficits, Normal Mood/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 FIM Transfers Therapy Code Descriptions/Definitions Functional [place] Measure: 0=Not Assessed/NA 4=Minimal Assistance 1=Total Assistance 5=Supervision or Setup 2=Maximal Assistance 6=Modified [place] 3=Moderate Assistance 7=Complete IndependenceSCALE: Activities may be completed with or without assistive devices. 7-Zhesqmwwee-qiwudut completes the activity by him/herself with no assistance from a helper. 5-Set-up or Clean-up Assistance-helper sets up or cleans up; patient completes activity. [place] assists only prior to or following the activity. 4-Supervision or Touching Assistance-helper provides verbal cues and/or touching/steadying and/or contact guard assistance as patient completes activi ty. Assistance may be provided throughout the activity or intermittently. 3-Partial/Moderate Assistance-helper does LESS THAN HALF the effort. [place] lifts, holds or supports trunk or limbs, but provides less than half the effort. 2-Substantial/Maximal Assistance-helper does MORE THAN HALF the effort. [place] lifts or holds trunk or limbs and provides more than half the effort. 4-Oyhiejpwz-avrioe does ALL the effort. Patient does none of the effort to complete the activity. Or, the assistance of 2 or more helpers is required for the patient to complete the activity. If activity was not attempted, code reason: 7-Patient Refused. 9-Not Applicable-not attempted and the patient did not perform the activity before the current illness, exacerbation or injury. 10-Not Attempted due to Environmental Limitations-(lack of equipment, weather restraints, etc.). 88-Not Attempted due to Medical Conditions or Safety Concerns. Roll Left to Right (QC): 6 Sit to Lying (QC): 6 Sit to Stand (QC): 6 Chair/Nsp-pi-Urtig Xfer(QC): 5 Car Transfer (QC): 88 Gait Training Does the Patient Walk?: Yes Distance: 50' Walk 10 feet (QC): 5 Walk 50 ft with 2 Turns(QC): 5 Walk 150 ft (QC): 5 Walking 10ft/uneven surface-QC: 88 Gait Persons Needed: 1 Gait Assistive Device: FWW Wheelchair Training Does the Pt Use a Wheelchair?: Yes Wheel 50 ft with 2 turns (QC): 4 Wheel 150 ft (QC): 5 Type of Wheelchair: Manual Stair Training Stair Training: Handrails/: 2 handrails #of Steps: 3 1 Step (curb) (QC): 3 4 Steps (QC): 7 12 Steps (QC): 88 Stairs: Pattern: Step to Balance Picking up an Object (QC): 88 ADL-Treatment Eating (QC): 6 Oral Hygiene (QC): 6 Shower/Bathe Self (QC): 3 (Min assist to complete simple sponge bath on toilet.) Upper Body Dressing (QC): 5 Lower Body Dressing (QC): 88 On/Off Footwear (QC): 4 (SBA to doff/don slipper socks with AE.) Toileting Hygiene (QC): 4 Toilet Transfer (QC): 4 Assessment/Plan Assessment and Plan Assess & Plan/Chief Complaint Assessment: 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 Former smoker Severe presbycusis HTN Hyponatremia 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 Urinary retention 12/13/20 Plan: IRF protocol Monitor pain O2 Nebs IS Lovenox 12/08/20: Xanax ordered Ileostomy functioning well but bag leaking Decubitus ulcer management 12/09/20: Monitor fluid restriction Salt tablets Monitor pain Ileostomy function monitoring 12/10/20: Salt tablets Fluid restriction Monitor closely Intensive therapy 12/11/20: Continue fluid restriction Salt tablets Monitor pain 12/12/20: Ambulating well today Fantastic progress 12/13/20: Urinary retention Dr Wright Monitor closely 12/14/20: Flomax started Dr Wright appreciated Pain control 12/15/20: Improved Retention per Dr Wright Wound vac 12/16/20: In/Out cath Monitor pain Monitor for UTI 12/17/20: Urecholine In/Out cath Monitor closely 12/18/20: Family training Impressive function 12/19/20: Monitor closely Pain control Impressive recovery 12/20/20: Sepsis w/u Check CXR IS Xanax Flonase 12/21/20: Flonase improved status Pain control Increase nutrition 12/22/20: Decrease pain meds Monitor closely Bladder scan 12/23/20: 2 units of blood Hold therapy today due to transfusions Monitor progress 12/24/20: Monitor closely Fall risk Improve nutrition Change ileostomy 12/25/20: NHP pursued Monitor pain 12/26/20: Patient continues to progress No pain reported 12/27/20: DC NH Wednesday12/28/20: Labs improved NH Wednesday (1) Myopathy (2) Ileus following gastrointestinal surgery (3) S/P right hemicolectomy (4) Presbycusis of both ears (5) Ileostomy in place (6) Anemia due to acute blood loss (7) Colon cancer (8) Hyponatremia (9) COPD (chronic obstructive pulmonary disease) (10) DVT prophylaxis WILFREDO MARTÍNEZ DO Dec 28, 2020 07:35
[2020-12-28] MEDS: meTOprolol TARTRATE 25 MG (LOPRESSOR) TABLET PO SCH ×2 (08:00→20:43)
[2020-12-28] MEDS: METOCLOPRAMIDE 5 MG (REGLAN) TAB PO SCH ×2 (08:00→20:43)
[2020-12-28] MEDS: SENNA W/DOCUSATE (SENOKOT S) TABLET PO SCH ×2 (08:00→20:43)
[2020-12-28] MEDS: NITROFURANTOIN 100 MG (MACROBID) CAPSULE PO SCH ×2 (08:00→16:53)
[2020-12-28] MEDS: polyethylene glycoL POWDER 17 GM (MIRALAX) PACK PO SCH ×2 (08:00→20:42)
[2020-12-28] MEDS: DOCUSATE SODIUM 100 MG (COLACE) CAP PO SCH ×2 (08:00→20:43)
[2020-12-28] MEDS: lisINopril 20 MG (PRINIVIL) TABLET PO SCH (08:01)
[2020-12-28] MEDS: PANTOPRAZOLE 40 MG (PROTONIX) TAB PO SCH ×2 (08:01→20:43)
[2020-12-28] MEDS: amLODIPine 10 MG (NORVASC) TAB PO SCH (08:01)
[2020-12-28] MEDS: FLUTICASONE NASAL SPRAY (FLONASE) 16 GM BTL NS SCH (08:02)
[2020-12-28] MEDS: NICOTINE PATCH REMOVAL TP SCH (08:04)
[2020-12-28] MEDS: NICOTINE 14 MG (NICODERM) PATCH TD SCH (08:05)
[2020-12-28] MEDS: SODIUM CHLORIDE 1 GM TABLET PO SCH ×2 (08:09→20:48)
[2020-12-28] MEDS: TRELEGY ELLIPTA IH SCH (09:19)
--- NOTE | 2020-12-28 11:27 | Physical Therapy Daily Note ---
PT Daily Note-Current Subjective Agreeable to PT. Post treatment needs to toilet. Mental Status Patient Orientation: Person, Place, Time, Situation Attachments: Colostomy/Ileostomy, Other-See Comments (wound vac) Transfers SCALE: Activities may be completed with or without assistive devices. 5-Gmvlnciqes-giahdwy completes the activity by him/herself with no assistance from a helper. 5-Set-up or Clean-up Assistance-helper sets up or cleans up; patient completes activity. [place] assists only prior to or following the activity. 4-Supervision or Touching Assistance-helper provides verbal cues and/or touching/steadying and/or contact guard assistance as patient completes activity. Assistance may be provided throughout the activity or intermittently. 3-Partial/Moderate Assistance-helper does LESS THAN HALF the effort. [place] lifts, holds or supports trunk or limbs, but provides less than half the effort. 2-Substantial/Maximal Assistance-helper does MORE THAN HALF the effort. [place] lifts or holds trunk or limbs and provides more than half the effort. 1-Lhzzrufzw-wyvqzv does ALL the effort. Patient does none of the effort to complete the activity. Or, the assistance of 2 or more helpers is required for the patient to complete the activity. If activity was not attempted, code reason: 7-Patient Refused. 9-Not Applicable-not attempted and the patient did not perform the activity b efore the current illness, exacerbation or injury. 10-Not Attempted due to Environmental Limitations-(lack of equipment, weather restraints, etc.). 88-Not Attempted due to Medical Conditions or Safety Concerns. Lying to Sitting/Side of Bed(Q: 6 Sit to Stand (QC): 5 Chair/Wfy-zv-Eqybl Xfer(QC): 5 Toilet Transfer (QC): 4 Weight Bearing Full Weight Bearing Full Weight Bearing Gait Training Does the Patient Walk?: Yes Gait Assistive Device: FWW 125 ft x 3 reps with FWW with SBA. Rest breaks in between. Assessment Current Status: Good Progress Improved transfers and gait. Progressing. PT Short Term Goals Short Term Goals Time Frame: Dec 21, 2020 Roll Left & Right: 4 Sit to lyin Lying to sitting on side of be: 4 Sit to stand: 4 Chair/rwx-ay-xaiiw transfer: 4 Toilet transfer: 4 Car transfer: 3 Walk 10 feet: 4 Walk 50 feet with two turns: 4 Walk 150 feet: 4 Walking 10ft on uneven surface: 4 1 step (curb): 4 Does pt use a wc or scooter: Yes Wheel 50ft w/2 turns: 4 Wheel 150 feet: 4 Type: Manual PT Assisted Goals Assisted Goals PT Program Host Goals Time Frame: Jan 04, 2021 Roll Left & Right (QC): 6 Sit to Lying (QC): 6 Lying-Sitting on Side/Bed(QC): 6 Sit to Stand (QC): 6 Chair/Bpw-tz-Jopju Xfer(QC): 6 Toilet Transfer (QC): 6 Car Transfer (QC): 5 Does the Patient Walk: Yes Walk 10 feet (QC): 6 Walk 50ft with 2 Turns (QC): 6 Walk 150 ft (QC): 5 Walking 10ft on Uneven Surface: 6 1 Step (curb) (QC): 5 4 Steps (QC): 5 12 Steps (QC): 4 Picking up an Object (QC): 4 Does the Pt use WC or Scooter?: Yes Wheel 50 feet with 2 turns (QC: 6 Type: Manual Wheel 150 feet: 6 Type: Manual PT Plan Problem List Problem List: Activity Tolerance, Functional Strength, Safety, Balance, Gait, Transfer Treatment/Plan Treatment Plan: Continue Plan of Care Treatment Plan: Bed Mobility, Concurrent Therapy, Functional Activity [place], Functional Strength, Group Therapy, Gait, Safety, Therapeutic Exercise, Transfers Treatment Duration: Jan 04, 2021 Frequency: At least 5 of 7 days/Wk (IRF) Estimated Hrs Per Day: 1.5 hours per day Patient and/or Family Agrees t: Yes Safety Risks/Education Patient Education: Gait Training, Safety Issues Teaching Recipient: Patient Teaching Methods: Discussion Response to Teaching: Verbalize Understanding Time/GCodes Time In: 945 Time Out: 1000 Total Billed Treatment Time: 15 Total Billed Treatment visit GT 15 RAIZA TAM PT Dec 28, 2020 11:27
[2020-12-28 17:10] VITALS: BP 123/58
[2020-12-28] MEDS: ENOXAPARIN 40 MG/0.4 ML (LOVENOX) SYR SC SCH (20:43)
[2020-12-29 06:07] VITALS: BP 116/54
[2020-12-29] MEDS: BETHANECHOL 25 MG (URECHOLINE) TAB PO SCH ×4 (06:21→20:58)
[2020-12-29] MEDS: SUCRALFATE 1 GM (CARAFATE) TAB PO SCH ×4 (06:21→20:58)
[2020-12-29] MEDS: CATHETER FLUSH 10 ML SYR IV SCH ×3 (06:21→21:01)
[2020-12-29] MEDS: TRELEGY ELLIPTA IH SCH (07:04)
[2020-12-29] MEDS: NITROFURANTOIN 100 MG (MACROBID) CAPSULE PO SCH ×2 (07:53→17:50)
[2020-12-29 08:15] VITALS: BP 118/56
[2020-12-29] MEDS: NICOTINE PATCH REMOVAL TP SCH (08:49)
[2020-12-29] MEDS: FLUTICASONE NASAL SPRAY (FLONASE) 16 GM BTL NS SCH (08:51)
[2020-12-29] MEDS: DOCUSATE SODIUM 100 MG (COLACE) CAP PO SCH ×2 (08:52→21:00)
[2020-12-29] MEDS: polyethylene glycoL POWDER 17 GM (MIRALAX) PACK PO SCH ×2 (08:52→21:00)
[2020-12-29] MEDS: meTOprolol TARTRATE 25 MG (LOPRESSOR) TABLET PO SCH ×2 (08:52→20:58)
[2020-12-29] MEDS: amLODIPine 10 MG (NORVASC) TAB PO SCH (08:52)
[2020-12-29] MEDS: PANTOPRAZOLE 40 MG (PROTONIX) TAB PO SCH ×2 (08:52→20:58)
[2020-12-29] MEDS: SODIUM CHLORIDE 1 GM TABLET PO SCH ×2 (08:53→20:59)
[2020-12-29] MEDS: NICOTINE 14 MG (NICODERM) PATCH TD SCH (08:53)
[2020-12-29] MEDS: SENNA W/DOCUSATE (SENOKOT S) TABLET PO SCH ×2 (08:53→21:00)
[2020-12-29] MEDS: lisINopril 20 MG (PRINIVIL) TABLET PO SCH (08:53)
[2020-12-29] MEDS: METOCLOPRAMIDE 5 MG (REGLAN) TAB PO SCH ×2 (08:53→20:58)
--- NOTE | 2020-12-29 09:34 | PM&R Progress Note ---
Subjective HPI/CC On Admission Date Seen by Provider: Dec 29, 2020 Time Seen by Provider: 11:00 Subjective/Events-last exam 12/29/20: Patient DC to [facility] tomorrow No pain reported PICC will DC tomorrow 12/28/20: Patient doing well No pain reported [place] Wednesday Xanax prn O2 wean Sodium level 132 12/27/20: Going to [place] PICC line will be DC Wednesday No pain reported 12/26/20: retirement placement will need to be discussed Jannet was giving some ileostomy training advice Doing very well Post-void residual is next to nil Urecholine doing very well 12/25/20: Pt doing pretty well Increasing fluid restriction to 1500 CCs Emptying ileostomy on her own Hgb is 10.5 Urecholine is working very well No post-void residual May need a long-term 12/24/20: Hgb is 10.5 after two units of blood yesterday WBC is 12. 2 Sodium level 131 Jannet is training her sister to change the ileostomy bag Pain pills have decreased in frequency required 12/23/20: Hgb 6.2 today so will give two units of blood Pt is feeling pretty good I updated her on why anemia occurs during critical illness Increasing Urecholine to 25 Mg before meals and at bedtime per Dr. Wright because she is still retaining urine 12/22/20: Doing very well Granddaughter came to visit from [place] Only taking 1 pain pill per day Ileostomy bag changed LANE drain only 5cc Bladder scan 200cc 12/21/20: Patient doing well Labs reviewed CXR no acute abnl Pain improved Eating well 12/20/20: Increased work of breathing Xanax ordered CXR and labs ordered No sepsis ATX bilateral on CXR so increase use of IS No abx indicated at this time Flonase restarted Sister at bedside 12/19/20: Oxycodone maintained for pain Leg pain from muscle workouts No N/V 12/18/20: Pt doing very well Very much improved Family training will be started Ostomy has 500cc output 12/17/20: Urecholine started by Dr. Wright and Pt denies any significant new issues Pain is well controlled Improved 12/16/20: Ileostomy put out 800cc Hgb 8.4 Iron level will be ordered Sodium level 130 so will DC fluid restriction Overall much improved 12/15/20: Patient doing well Sleeps a lot Pain is improved Dr Wright managing retention 12/14/20: Flomax started Dr Wright ordered in/out caths prn Patient is doing better No falls Pain is controlled Wound vac in place 12/13/20: Voiding is an issue Retention requiring in/out cath Dr Wright appreciated Checked meds and labs 12/12/20: Patient doing well Ambulated in front of me with assistance No pain reported No new issues Fluid restriction noted 12/11/20: Patient doing well Sodium level 129 No pain reported Fluid restriction maintained Ileostomy bag no leak Wound vac still in place 12/10/20: Participation with therapy good just slow Parallel bars but could not stand Fluid restriction maintained 12/09/20: Patient feels good Hgb 9.0 Sodium 127 2 person assist still Output 600 in ileostomy Lovenox maintained 12/08/20: Patient feels good and feels stronger Hgb 8.9 Sodium level 127 Ileostomy functioning well but bag keep leaking Gluteus cleft stage 2 decubitus ulcer Review of Systems General: Fatigue Neurological: Weakness Objective Exam Vital Signs Vital Signs Date Time Temp Pulse Resp B/P (MAP) Pulse Ox O2 Delivery O2 Flow Rate FiO2 12/29/20 17:19 36.4 81 20 101/58 (72) 93 Room Air Capillary Refill : General Appearance: No Apparent Distress, WD/WN, Chronically ill HEENT: PERRL/EOMI, Normal ENT Inspection, Pharynx Normal Neck: Full Range of Motion, Normal Inspection, Non Tender, Supple Respiratory: Chest Non Tender, Lungs Clear, Normal Breath Sounds, No Respiratory Distress, Wheezing Cardiovascular: Regular Rate, Rhythm, No Edema, No Gallop, No JVD, No Murmur, Normal Peripheral Pulses Gastrointestinal: Normal Bowel Sounds, No Organomegaly, No Pulsatile Mass, Non Tender, Soft, Other (ileostomy) Back: Normal Inspection, No CVA Tenderness, No Vertebral Tenderness Extremity: Normal Capillary Refill, Normal Inspection, Normal Range of Motion, Non Tender, No Calf Tenderness Neurologic/Psychiatric: Alert, Oriented x3, No Motor/Sensory Deficits, Normal Mood/Affect, director writing II-XII Norm as Tested Skin: Normal Color, Warm/Dry, Other (wound clean/dry, wound vac intact and changed today) Lymphatic: No Adenopathy Results/Procedures Lab Patient resulted labs reviewed. FIM Transfers Therapy Code Descriptions/Definitions Functional [place] Measure: 0=Not Assessed/NA 4=Minimal Assistance 1=Total Assistance 5=Supervision or Setup 2=Maximal Assistance 6=Modified [place] 3=Moderate Assistance 7=Complete IndependenceSCALE: Activities may be completed with or without assistive devices. 2-Vhkkcfnuli-edsveib completes the activity by him/herself with no assistance from a helper. 5-Set-up or Clean-up Assistance-helper sets up or cleans up; patient completes activity. [place] assists only prior to or following the activity. 4-Supervision or Touching Assistance-helper provides verbal cues and/or touching/steadying and/or contact guard assistance as patient completes activity. Assistance may be provided throughout the activity or intermittently. 3-Partial/Moderate Assistance-helper does LESS THAN HALF the effort. [place] lifts, holds or supports trunk or limbs, but provides less than half the effort. 2-Substantial/Maximal Assistance-helper does MORE THAN HALF the effort. [place] lifts or holds trunk or limbs and provides more than half the effort. 0-Meewrkizz-qjfovo does ALL the effort. Patient does none of the effort to complete the activity. Or, the assistance of 2 or more helpers is required for the patient to complete the activity. If activity was not attempted, code reason: 7-Patient Refused. 9-Not Applicable-not attempted and the patient did not perform the activity before the current illness, exacerbation or injury. 10-Not Attempted due to Environmental Limitations-(lack of equipment, weather restraints, etc.). 88-Not Attempted due to Medical Conditions or Safety Concerns. Roll Left to Right (QC): 6 Sit to Lying (QC): 6 Sit to Stand (QC): 5 Chair/Oaf-uf-Uqvql Xfer(QC): 5 Car Transfer (QC): 88 Gait Training Does the Patient Walk?: Yes Distance: 50' Walk 10 feet (QC): 5 Walk 50 ft with 2 Turns(QC): 5 Walk 150 ft (QC): 5 Walking 10ft/uneven surface-QC: 88 Gait Persons Needed: 1 Gait Assistive Device: FWW Wheelchair Training Does the Pt Use a Wheelchair?: Yes Wheel 50 ft with 2 turns (QC): 4 Wheel 150 ft (QC): 5 Type of Wheelchair: Manual Stair Training Stair Training: Handrails/: 2 handrails #of Steps: 3 1 Step (curb) (QC): 3 4 Steps (QC): 7 12 Steps (QC): 88 Stairs: Pattern: Step to Balance Picking up an Object (QC): 88 ADL-Treatment Eating (QC): 6 Oral Hygiene (QC): 6 Shower/Bathe Self (QC): 3 (Min assist to complete simple sponge bath on toilet.) Upper Body Dressing (QC): 5 Lower Body Dressing (QC): 88 On/Off Footwear (QC): 4 (SBA to doff/don slipper socks with AE.) Toileting Hygiene (QC): 4 Toilet Transfer (QC): 4 Assessment/Plan Assessment and Plan Assess & Plan/Chief Complaint Assessment: 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 Former smoker Severe presbycusis HTN Hyponatremia 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 Urinary retention 12/13/20 Plan: IRF protocol Monitor pain O2 Nebs IS Lovenox 12/08/20: Xanax ordered Ileostomy functioning well but bag leaking Decubitus ulcer management 12/09/20: Monitor fluid restriction Salt tablets Monitor pain Ileostomy function monitoring 12/10/20: Salt tablets Fluid restriction Monitor closely Intensive therapy 12/11/20: Continue fluid restriction Salt tablets Monitor pain 12/12/20: Ambulating well today Fantastic progress 12/13/20: Urinary retention Dr Wright Monitor closely 12/14/20: Flomax started Dr Wright appreciated Pain control 12/15/20: Improved Retention per Dr Wright Wound vac 12/16/20: In/Out cath Monitor pain Monitor for UTI 12/17/20: Urecholine In/Out cath Monitor closely 12/18/20: Family training Impressive function 12/19/20: Monitor closely Pain control Impressive recovery 12/20/20: Sepsis w/u Check CXR IS Xanax Flonase 12/21/20: Flonase improved status Pain control Increase nutrition 12/22/20: Decrease pain meds Monitor closely Bladder scan 12/23/20: 2 units of blood Hold therapy today due to transfusions Monitor progress 12/24/20: Monitor closely Fall risk Improve nutrition Change ileostomy 12/25/20: NHP pursued Monitor pain 12/26/20: Patient continues to progress No pain reported 12/27/20: DC NH Wednesday12/28/20: Labs improved [place] Wednesday12/29/20: Monitor closely DC tomorrow (1) Myopathy (2) Ileus following gastrointestinal surgery (3) S/P right hemicolectomy (4) Presbycusis of both ears (5) Ileostomy in place (6) Anemia due to acute blood loss (7) Colon cancer (8) Hyponatremia (9) COPD (chronic obstructive pulmonary disease) (10) DVT prophylaxis WILFREDO MARTÍNEZ DO Dec 29, 2020 09:34
[2020-12-29] MEDS: HYDROcodone/APAP 7.5MG-325 MG/15 ML (LORTAB) UDC PO PRN (10:59)
[2020-12-29] MEDS: FENTANYL PATCH REMOVAL TP SCH (10:59)
[2020-12-29] MEDS: fentaNYL PATCH 25 MCG (DURAGESIC) TD SCH (11:57)
[2020-12-29] MEDS ORDERED: METO5TAB2 PO (12:15)
[2020-12-29] MEDS ORDERED: METO-333 PO (12:15)
[2020-12-29] MEDS ORDERED: SALI45SP MM (12:15)
[2020-12-29] MEDS ORDERED: ALBU2.5V4 INH (12:15)
[2020-12-29] MEDS ORDERED: ENOX40DI8 SC (12:15)
[2020-12-29] MEDS ORDERED: SUCR1TAB PO (12:15)
[2020-12-29] MEDS ORDERED: Artificial Tears OU (12:15)
[2020-12-29] MEDS ORDERED: MICO90PO TOP (12:15)
[2020-12-29] MEDS ORDERED: NITR100C10 PO (12:15)
[2020-12-29] MEDS ORDERED: AMLO-251 PO (12:15)
[2020-12-29] MEDS ORDERED: FENT1PAT8 TD (12:15)
[2020-12-29] MEDS ORDERED: PHEN120L2 MC (12:15)
[2020-12-29] MEDS ORDERED: SENN1TAB76 PO (12:15)
[2020-12-29] MEDS ORDERED: NF-NACL1GT PO (12:15)
[2020-12-29] MEDS ORDERED: Bethanechol Chl PO (12:15)
[2020-12-29] MEDS ORDERED: OXC5T PO (12:15)
[2020-12-29] MEDS ORDERED: NICO1PAT38 TD (12:15)
[2020-12-29] MEDS ORDERED: PANT40TA52 PO (12:15)
[2020-12-29] MEDS ORDERED: POLY17PO54 PO (12:15)
[2020-12-29] MEDS ORDERED: DCS100C PO (12:15)
[2020-12-29] MEDS ORDERED: ALPR.25T PO (12:15)
[2020-12-29] MEDS ORDERED: FLUT16SP22 NS (12:15)
[2020-12-29] MEDS ORDERED: LISI20TA26 PO (12:15)
[2020-12-29] MEDS ORDERED: ONDA4TAB11 PO (12:15)
[2020-12-29] MEDS ORDERED: MELA3TAB39 PO (12:15)
--- NOTE | 2020-12-29 12:17 | Discharge Inst-Skilled Nursing ---
Discharge Inst-Skilled NF Reconcile Patient Problems Problems Reviewed?: Yes Patient Instructions Patient Problems: s/p colon cancer mass resection s/p ileostomy s/p PNA s/p VDRF Consult/Follow Up/Orders Follow Up Appt.: Dr Ba [address] Lynch as scheduled Skilled NF Admit to: [facility] Certification (SNF) I certify that SNF services are required to be given on an inpatient basis because of the above named patient's need for detention care on a continuing basis for the conditions(s) for which he/she was receiving inpatient hospital services prior to his/her transfer to the SNF. [facility] Facility Order: Nursing Services, Specialty Sales Consultant-Evaluate & Treat, Physical Therapy-Evaluate & Treat, Speech Language-Evaluate & Treat Oxygen Delivery Method: Room Air Discharge Diet: No Restrictions Daily Activity as Tolerated: Yes Resuscitation Status: Full Code New & Resume Previous Orders New Medications: Albuterol Sulfate (Albuterol Sulfate) 2.5 Mg/3 Ml Vial.neb 2.5 MG INH RTQ4HR PRN for SHORTNESS OF BREATH for 30 Days, INHALER ALPRAZolam (Xanax Tablet) 0.25 Mg Tab 0.25 MG PO Q4HR PRN for ANXIETY, #30 TAB Amlodipine Besylate (Amlodipine Besylate) 10 Mg Tablet 10 MG PO DAILY for 30 Days, TAB [Bethanechol Chl] () 25 MG TAB 25 MG PO ACHS for 30 Days, TAB Docusate Sodium (Dok) 100 Mg Capsule 100 MG PO BID for 30 Days, CAP Enoxaparin Sodium (Enoxaparin Sodium) 40 Mg/0.4 Ml Syringe 40 MG SC HS for 30 Days, SYRINGE Fentanyl (Fentanyl Patch 25 MCG) 1 Each Patch.td72 25 MCG TD Q72H, #10 PATCH Fluticasone Propionate (Fluticasone Propionate) [address] Gm [place].susp 0 SPRAY NS DAILY for 30 Days, SPRAY Lisinopril (Lisinopril) 20 Mg Tablet 20 MG PO DAILY for 30 Days, TAB Melatonin (Melatonin) 3 Mg Tablet 6 MG PO HS PRN for INSOMNIA for 30 Days, TAB Metoclopramide HCl (Metoclopramide HCl) 5 Mg Tablet 5 MG PO BID for 30 Days, TAB Metoprolol Tartrate (Metoprolol Tartrate) 25 Mg Tablet 25 MG PO BID for 30 Days, TAB Miconazole Nitrate (Lotrimin AF) 90 Gm Powder 0 GM TOP BID PRN for RASH for 30 Days, EA [Artificial Tears] () 3.5 GM OINT 0 GM OU TID PRN for DRY EYES for 30 Days, TUBE Nicotine (Nicoderm Cq) 1 Each Patch.td24 14 MG TD DAILY@0900 for 30 Days, PATCH Nitrofurantoin Monohyd/M-Cryst (Nitrofurantoin [place]-Mcr 100 mg) 100 Mg Capsule 100 MG PO BID WITH MEALS for 4 Days, CAP Ondansetron (Ondansetron Odt) 4 Mg Tab.rapdis 4 MG PO Q6H PRN for NAUSEA/VOMITING-1ST LINE for 30 Days, TAB Oxycodone Hcl (Oxyir Tablet) 5 Mg Tab 5 MG PO Q3HR PRN for PAIN-SEVERE (8-10), #60 TAB Pantoprazole Sodium (Pantoprazole Sodium) 40 Mg Tablet.dr 40 MG PO BID for 30 Days, TAB Phenol (Phenaseptic) 177 Ml [place] 0 ML MC Q2H PRN for Throat Irritation for 30 Days, SPRAY Polyethylene Glycol 3350 (Polyethylene Glycol 3350) 17 Gm Powd.pack 17 GM PO BID for 30 Days, EACH Saliva Stimulant Agents Comb.3 (Biotene Moisturizing Mouth) 1 Each [place] 0 EACH MM NEEDED PRN for DRY MOUTH for 30 Days, SPRAY Sennosides/Docusate Sodium (Stool Softener-Laxative Tablet) 1 Each Tablet 1 EA PO BID for 30 Days, TAB Sodium Chloride (Sodium Chloride) 1 Gm Tab 1 GM PO BID for 30 Days, TAB Sucralfate (Sucralfate) 1 Gm Tablet 1 GM PO ACHS for 30 Days, TAB Continued Medications: Cetirizine HCl (Cetirizine HCl) 10 Mg Tablet 10 MG PO DAILY, TAB Fluticasone/Umeclidin/Vilanter (Trelegy Ellipta 100-62.5-25) 1 Each Blst.w.dev 1 EACH IH DAILY Montelukast Sodium (Montelukast Sodium) 10 Mg Tablet 10 MG PO HS, TAB Umeclidinium Brm/Vilanterol Tr (Anoro Ellipta 62.5-25 Mcg INH) 1 Each Blst.w.dev 1 EACH IH DAILY Discontinued Medications: Ascorbic Acid (Vitamin C) 500 Mg Capsule 500 MG PO DAILY, CAP Aspirin (Aspirin) 81 Mg Tab.chew 81 MG PO DAILY, TAB Lisinopril (Lisinopril) 40 Mg Tablet 40 MG PO DAILY, TAB Mv-Mn/Folic Acid/Calcium/Vit K (Women's 50 Plus Multivit Tab) 1 Each Tablet 1 EACH PO DAILY, TAB Smoot 3 Polyunsat Fatty Acids (Fish Oil 1,000 mg Capsule) 1,000 Mg Cap 1000 MG PO DAILY, CAP Simvastatin (Simvastatin) 40 Mg Tablet 40 MG PO HS, TAB Genna Chapman Dec 29, 2020 12:16 GENNA CHAPMAN DO Dec 29, 2020 12:17
[2020-12-29 17:19] VITALS: BP 101/58
[2020-12-29] MEDS: ENOXAPARIN 40 MG/0.4 ML (LOVENOX) SYR SC SCH (21:00)
[2020-12-30] MEDS: CATHETER FLUSH 10 ML SYR IV SCH (05:16)
[2020-12-30] MEDS: SUCRALFATE 1 GM (CARAFATE) TAB PO SCH ×2 (05:16→11:34)
[2020-12-30] MEDS: BETHANECHOL 25 MG (URECHOLINE) TAB PO SCH ×2 (05:17→11:34)
[2020-12-30 05:29] LABS: BASOPHILS # (AUTO) 0.1 10^3/uL (0.0-0.1); BASOPHILS % (AUTO) 1 % (0-10); EOSINOPHILS # (AUTO) 0.8 10^3/uL (0.0-0.3); EOSINOPHILS % (AUTO) 8 % (0-10); HEMATOCRIT 38 % (35-52); HEMOGLOBIN 12.4 g/dL (11.5-16.0); LYMPHOCYTES # (AUTO) 2.9 10^3/uL (1.0-4.0); LYMPHOCYTES % (AUTO) 27 % (12-44); MEAN CORPUSCULAR HEMOGLOBIN 29 pg (25-34); MEAN CORPUSCULAR HGB CONC 33 g/dL (32-36); MEAN CORPUSCULAR VOLUME 89 fL (80-99); MEAN PLATELET VOLUME 8.6 fL (9.0-12.2); MONOCYTES # (AUTO) 0.8 10^3/uL (0.0-1.0); MONOCYTES % (AUTO) 7 % (0-12); NEUTROPHILS # (AUTO) 5.9 10^3/uL (1.8-7.8); NEUTROPHILS % (AUTO) 55 % (42-75); PLATELET COUNT 355 10^3/uL (130-400); WHITE BLOOD COUNT 10.7 10^3/uL (4.3-11.0)
[2020-12-30 05:49] VITALS: BP 129/58
--- NOTE | 2020-12-30 05:50 | Discharge Summary ---
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 Urinary retention 12/13/20 Plan: IRF protocol Monitor pain O2 Nebs IS Lovenox 12/08/20: Xanax ordered Ileostomy functioning well but bag leaking Decubitus ulcer management 12/09/20: Monitor fluid restriction Salt tablets Monitor pain Ileostomy function monitoring 12/10/20: Salt tablets Fluid restriction Monitor closely Intensive therapy 12/11/20: Continue fluid restriction Salt tablets Monitor pain 12/12/20: Ambulating well today Fantastic progress 12/13/20: Urinary retention Dr Wright Monitor closely 12/14/20: Flomax started Dr Wright appreciated Pain control 12/15/20: Improved Retention per Dr Wright Wound vac 12/16/20: In/Out cath Monitor pain Monitor for UTI 12/17/20: Urecholine In/Out cath Monitor closely 12/18/20: Family training Impressive function 12/19/20: Monitor closely Pain control Impressive recovery 12/20/20: Sepsis w/u Check CXR IS Xanax Flonase 12/21/20: Flonase improved status Pain control Increase nutrition 12/22/20: Decrease pain meds Monitor closely Bladder scan 12/23/20: 2 units of blood Hold therapy today due to transfusions Monitor progress 12/24/20: Monitor closely Fall risk Improve nutrition Change ileostomy 12/25/20: NHP pursued Monitor pain 12/26/20: Patient continues to progress No pain reported 12/27/20: DC MT Wednesday12/28/20: Labs improved MT Wednesday12/29/20: Monitor closely DC tomorrow (1) Myopathy (2) Ileus following gastrointestinal surgery (3) S/P right hemicolectomy (4) Presbycusis of both ears (5) Ileostomy in place (6) Anemia due to acute blood loss (7) Colon cancer (8) Hyponatremia (9) COPD (chronic obstructive pulmonary disease) (10) DVT prophylaxis Discharge Summary Discharge Physical Examination Allergies: Coded Allergies: Penicillins (Verified Allergy, Unknown, Anaphylaxis, 09/26/20) budesonide (Verified Allergy, Unknown, Nausea, PT USES TRELEGY, 12/20/20) formoterol (Verified Allergy, Unknown, Nausea, 09/26/20) midazolam (Verified Allergy, Unknown, Anaphylaxis, 09/26/20) Vitals & I&Os Vital Signs Date Time Temp Pulse Resp B/P (MAP) Pulse Ox O2 Delivery O2 Flow Rate FiO2 12/30/20 13:10 36.6 82 16 129/58 92 Room Air General Appearance: Alert, Oriented X3, Cooperative Respiratory: Clear to Auscultation Cardiovascular: Regular Rate Neuro: Normal Gait Psych/Mental Status: Mental Status NL Hospital Course Was the Problem List Reviewed?: Yes Hospital Course: Pt had a lengthy hospital course for 24 days in inpatient rehab. When she arrived she had had an extensive critical illness with intubation and significant compromise of her function requiring multiple surgeries and multiple wound vac changes, along with IV antibiotics and COPD exacerbations. Overall she did well, she completed IV iron infusions, had no significant decline in function while at inpatient rehab but required prison placement for management of her severe weakness and overall severe debility to get strong enough to undergo colon cancer treatment Labs (last 24 hrs) Laboratory Tests 12/07/20 13:23: Lab Scanned Report Referred Lab Report 12/08/20 06:05: White Blood Count 6.8, Red Blood Count 2.99L, Hemoglobin 8.9L, Hematocrit 27L, Mean Corpuscular Volume 91, Mean Corpuscular Hemoglobin 30, Mean Corpuscular Hemoglobin Concent 33, Red Cell Distribution Width 14.3, Platelet Count 264, Mean Platelet Volume 9.5, Immature Granulocyte % (Auto) 2, Neutrophils (%) (Aut o) 51, Lymphocytes (%) (Auto) 34, Monocytes (%) (Auto) 12, Eosinophils (%) (Auto) 2, Basophils (%) (Auto) 0, Neutrophils # (Auto) 3.4, Lymphocytes # (Auto) 2.3, Monocytes # (Auto) 0.8, Eosinophils # (Auto) 0.1, Basophils # (Auto) 0.0, Immature Granulocyte # (Auto) 0.1, Sodium Level 127L, Potassium Level 4.5, Chloride Level 94L, Carbon Dioxide Level 23, Anion Gap 10, Blood Urea Nitrogen 10, Creatinine 0.68, Estimat Glomerular Filtration Rate > 60, BUN/Creatinine Ratio 15, Glucose Level 107H, Calcium Level 7.8L, Corrected Calcium 9.2, Total Bilirubin 0.3, Aspartate Amino Transf (AST/SGOT) 24, Alanine Aminotransferase (ALT/SGPT) 25, Alkaline Phosphatase 172H, Total Protein 5.6L, Albumin 2.2L 12/09/20 05:24: White Blood Count 7.4, Red Blood Count 3.00L, Hemoglobin 9.0L, Hematocrit 27L, Mean Corpuscular Volume 91, Mean Corpuscular Hemoglobin 30, Mean Corpuscular Hemoglobin Concent 33, Red Cell Distribution Width 14.4, Platelet Count 282, Mean Platelet Volume 9.3, Immature Granulocyte % (Auto) 2, Neutrophils (%) (Auto) 53, Lymphocytes (%) (Auto) 31, Monocytes (%) (Auto) 13H, Eosinophils (%) (Auto) 1, Basophils (%) (Auto) 0, Neutrophils # (Auto) 3.9, Lymphocytes # (Auto) 2.3, Monocytes # (Auto) 1.0, Eosinophils # (Auto) 0.1, Basophils # (Auto) 0.0, Immature Granulocyte # (Auto) 0.2H, Sodium Level 127L, Potassium Level 4.3, Chloride Level 94L, Carbon Dioxide Level 23, Anion Gap 10, Blood Urea Nitrogen 9, Creatinine 0.70, Estimat Glomerular Filtration Rate > 60, BUN/Creatinine Ratio 13, Glucose Level 112H, Calcium Level 7.9L, Corrected Calcium 9.3, Total Bilirubin 0.3, Aspartate Amino Transf (AST/SGOT) 30, Alanine Aminotransferase (ALT/SGPT) 32, Alkaline Phosphatase 203H, Total Protein 5.9L, Albumin 2.3L 12/11/20 07:45: Sodium Level 129L, Potassium Level 4.1, Chloride Level 97L, Carbon Dioxide Level 21, Anion Gap 11, Blood Urea Nitrogen 9, Creatinine 0.76, Estimat Glomerular Filtration Rate > 60, BUN/Creatinine Ratio 12, Glucose Level 128H, Calcium Level 7.8L 12/16/20 05:30: White Blood Count 9.0, Red Blood Count 2.88L, Hemoglobin 8.4L, Hematocrit 26L, Mean Corpuscular Volume 89, Mean Corpuscular Hemoglobin 29, Mean Corpuscular Hemoglobin Concent 33, Red Cell Distribution Width 14.1, Platelet Count 267, Mean Platelet Volume 8.8L, Immature Granulocyte % (Auto) 4, Neutrophils (%) (Auto) 59, Lymphocytes (%) (Auto) 25, Monocytes (%) (Auto) 11, Eosinophils (%) (Auto) 1, Basophils (%) (Auto) 0, Neutrophils # (Auto) 5.3, Lymphocytes # (Auto) 2.3, Monocytes # (Auto) 1.0, Eosinophils # (Auto) 0.1, Basophils # (Auto) 0.0, Immature Granulocyte # (Auto) 0.3H, Sodium Level 130L, Potassium Level 4.1, Chloride Level 99, Carbon Dioxide Level 20L, Anion Gap 11, Blood Urea Nitrogen 11, Creatinine 0.70, Estimat Glomerular Filtration Rate > 60, BUN/Creatinine Ratio 16, Glucose Level 126H, Calcium Level 7.7L, Corrected Calcium 8.9, Iron Level 38, Total Bilirubin 0.2, Aspartate Amino Transf (AST/SGOT) 33, Alanine Aminotransferase (ALT/SGPT) 43, Alkaline Phosphatase 135, Total Protein 5.9L, Albumin 2.5L 12/20/20 10:19: White Blood Count 13.6H, Red Blood Count 2.88L, Hemoglobin 8.5L, Hematocrit 25L, Mean Corpuscular Volume 88, Mean Corpuscular Hemoglobin 30, Mean Corpuscular Hemoglobin Concent 34, Red Cell Distribution Width 14.5, Platelet Count 350, Mean Platelet Volume 8.7L, Immature Granulocyte % (Auto) 2, Neutrophils (%) (Auto) 74, Lymphocytes (%) (Auto) 17, Monocytes (%) (Auto) 7, Eosinophils (%) (Auto) 0, Basophils (%) (Auto) 0, Neutrophils # (Auto) 10.0H, Lymphocytes # (Auto) 2.2, Monocytes # (Auto) 0.9, Eosinophils # (Auto) 0.0, Basophils # (Auto) 0.1, Immature Granulocyte # (Auto) 0.3H, Sodium Level 125*L, Potassium Level 4.0, Chloride Level 95L, Carbon Dioxide Level 20L, Anion Gap 10, Blood Urea Nitrogen 12, Creatinine 0.74, Estimat Glomerular Filtration Rate > 60, BUN/Creatinine Ratio 16, Glucose Level 155H, Calcium Level 7.4L, Corrected Calcium 8.4L, Total Bilirubin 0.2, Aspartate Amino Transf (AST/SGOT) 22, Alanine Aminotransferase (ALT/SGPT) 38, Alkaline Phosphatase 114, Total Protein 6.5, Albumin 2.8L, Lactic Acid Level 1.71, B-Type Natriuretic Peptide 39.8, Procalcitonin 0.16H 12/21/20 05:00: White Blood Count 12.1H, Red Blood Count 2.54L, Hemoglobin 7.5L, Hematocrit 23L, Mean Corpuscular Volume 89, Mean Corpuscular Hemoglobin 30, Mean Corpuscular Hemoglobin Concent 33, Red Cell Distribution Width 14.9H, Platelet Count 335, Mean Platelet Volume 8.5L, Immature Granulocyte % (Auto) 3, Neutrophils (%) (Auto) 63, Lymphocytes (%) (Auto) 24, Monocytes (%) (Auto) 10, Eosinophils (%) (Auto) 1, Basophils (%) (Auto) 0, Neutrophils # (Auto) 7.6, Lymphocytes # (Auto) 2.8, Monocytes # (Auto) 1.2H, Eosinophils # (Auto) 0.1, Basophils # (Auto) 0.0, Immature Granulocyte # (Auto) 0.4H, Sodium Level 129L, Potassium Level 4.3, Chloride Level 97L, Carbon Dioxide Level 21, Anion Gap 11, Blood Urea Nitrogen 15, Creatinine 0.82, Estimat Glomerular Filtration Rate > 60, BUN/Creatinine Ratio 18, Glucose Level 120H, Calcium Level 7.5L, Corrected Calcium 8.5, Total Bilirubin 0.2, Aspartate Amino Transf (AST/SGOT) 19, Alanine Aminotransferase (ALT/SGPT) 34, Alkaline Phosphatase 102, Total Protein 6.1L, Albumin 2.8L, Lactic Acid Level 1.25, Procalcitonin 0.17H 12/23/20 05:45: White Blood Count 13.2H, Red Blood Count 2.05L, Hemoglobin 6.2*L, Hematocrit 19*L, Mean Corpuscular Volume 91, Mean Corpuscular Hemoglobin 30, Mean Corpuscular Hemoglobin Concent 33, Red Cell Distribution Width 14.9H, Platelet Count 408H, Mean Platelet Volume 8.7L, Immature Granulocyte % (Auto) 3, Neutrophils (%) (Auto) 59, Lymphocytes (%) (Auto) 26, Monocytes (%) (Auto) 10, Eosinophils (%) (Auto) 2, Basophils (%) (Auto) 1, Neutrophils # (Auto) 7.8, Lymphocytes # (Auto) 3.4, Monocytes # (Auto) 1.3H, Eosinophils # (Auto) 0.2, Basophils # (Auto) 0.1, Immature Granulocyte # (Auto) 0.4H, Sodium Level 131L, Potassium Level 4.8, Chloride Level 100, Carbon Dioxide Level 20L, Anion Gap 11, Blood Urea Nitrogen 21H, Creatinine 0.82, Estimat Glomerular Filtration Rate > 60, BUN/Creatinine Ratio 26, Glucose Level 113H, Calcium Level 7.8L, Corrected Calcium 8.6, Total Bilirubin 0.2, Aspartate Amino Transf (AST/SGOT) 26, Alanine Aminotransferase (ALT/SGPT) 37, Alkaline Phosphatase 121, Total Protein 6.8, Albumin 3.0L 12/24/20 06:30: White Blood Count 12.2H, Red Blood Count 3.58L, Hemoglobin 10.5#L, Hematocrit 32L, Mean Corpuscular Volume 88, Mean Corpuscular Hemoglobin 29, Mean Corpuscular Hemoglobin Concent 33, Red Cell Distribution Width 14.8H, Platelet Count 315, Mean Platelet Volume 8.4L, Immature Granulocyte % (Auto) 2, Neutrophils (%) (Auto) 72, Lymphocytes (%) (Auto) 15, Monocytes (%) (Auto) 9, Eo sinophils (%) (Auto) 2, Basophils (%) (Auto) 1, Neutrophils # (Auto) 8.7H, Lymphocytes # (Auto) 1.8, Monocytes # (Auto) 1.1H, Eosinophils # (Auto) 0.2, Basophils # (Auto) 0.1, Immature Granulocyte # (Auto) 0.3H, Sodium Level 131L, Potassium Level 4.6, Chloride Level 99, Carbon Dioxide Level 21, Anion Gap 11, Blood Urea Nitrogen 17, Creatinine 0.78, Estimat Glomerular Filtration Rate > 60, BUN/Creatinine Ratio 22, Glucose Level 115H, Calcium Level 7.8L, Corrected Calcium 8.5, Total Bilirubin 0.3, Aspartate Amino Transf (AST/SGOT) 23, Alanine Aminotransferase (ALT/SGPT) 38, Alkaline Phosphatase 124, Total Protein 6.8, Albumin 3.1L 12/24/20 15:33: Urine Color YELLOW, Urine Clarity SL CLOUDY, Urine pH 5.5, Urine Specific Camp 1.010L, Urine Protein TRACEH, Urine Glucose (UA) NEGATIVE, Urine Ketones NEGATIVE, Urine Nitrite POSITIVEH, Urine Bilirubin NEGATIVE, Urine Urobilinogen 0.2, Urine Leukocyte Esterase 3+H, Urine RBC (Auto) TRACE-I, Urine RBC NONE, Urine WBC >100H, Urine Squamous Epithelial Cells NONE, Urine Crystals NONE, Urine Bacteria LARGEH, Urine Casts NONE, Urine Mucus LARGEH, Urine Culture Indicated YES 12/28/20 06:05: White Blood Count 8.7, Red Blood Count 3.65L, Hemoglobin 10.6L, Hematocrit 33L, Mean Corpuscular Volume 90, Mean Corpuscular Hemoglobin 29, Mean Corpuscular Hemoglobin Concent 32, Red Cell Distribution Width 14.6H, Platelet Count 312, Mean Platelet Volume 8.6L, Immature Granulocyte % (Auto) 2, Neutrophils (%) (Auto) 60, Lymphocytes (%) (Auto) 21, Monocytes (%) (Auto) 10, Eosinophils (%) (Auto) 6, Basophils (%) (Auto) 1, Neutrophils # (Auto) 5.2, Lymphocytes # (Auto) 1.9, Monocytes # (Auto) 0.9, Eosinophils # (Auto) 0.5H, Basophils # (Auto) 0.1, Immature Granulocyte # (Auto) 0.2H, Sodium Level 132L, Potassium Level 3.7, Chloride Level 103, Carbon Dioxide Level 20L, Anion Gap 9, Blood Urea Nitrogen 14, Creatinine 0.80, Estimat Glomerular Filtration Rate > 60, BUN/Creatinine R atio 18, Glucose Level 116H, Calcium Level 7.6L, Corrected Calcium 8.3L, Total Bilirubin 0.3, Aspartate Amino Transf (AST/SGOT) 20, Alanine Aminotransferase (ALT/SGPT) 27, Alkaline Phosphatase 121, Total Protein 6.8, Albumin 3.1L 12/30/20 05:15: White Blood Count 10.7, Red Blood Count 4.29, Hemoglobin 12.4, Hematocrit 38, Mean Corpuscular Volume 89, Mean Corpuscular Hemoglobin 29, Mean Corpuscular Hemoglobin Concent 33, Red Cell Distribution Width 14.6H, Platelet Count 355, Mean Platelet Volume 8.6L, Immature Granulocyte % (Auto) 2, Neutrophils (%) (Auto) 55, Lymphocytes (%) (Auto) 27, Monocytes (%) (Auto) 7, Eosinophils (%) (Auto) 8, Basophils (%) (Auto) 1, Neutrophils # (Auto) 5.9, Lymphocytes # (Auto) 2.9, Monocytes # (Auto) 0.8, Eosinophils # (Auto) 0.8H, Basophils # (Auto) 0.1, Immature Granulocyte # (Auto) 0.2H, Sodium Level 134L, Potassium Level 3.8, Chloride Level 105, Carbon Dioxide Level 17L, Anion Gap 12, Blood Urea Nitrogen 13, Creatinine 0.73, Estimat Glomerular Filtration Rate > 60, BUN/Creatinine Ratio 18, Glucose Level 103, Calcium Level 8.1L, Corrected Calcium 8.7, Total Bilirubin 0.4, Aspartate Amino Transf (AST/SGOT) 22, Alanine Aminotransferase (ALT/SGPT) 30, Alkaline Phosphatase 116, Total Protein 6.9, Albumin 3.2 Microbiology 12/24/20 Urine Culture - Final, Complete Klebsiella pneumoniae Pending Labs Microbiology Date/Time Source Procedure Growth Status 12/24/20 15:33 Urine Clean Catch Urine Culture - Final Klebsiella pneumoniae Complete Laboratory Tests 12/07/20 13:23: Lab Scanned Report Referred Lab Report 12/08/20 06:05: White Blood Count 6.8, Red Blood Count 2.99, Hemoglobin 8.9, Hematocrit 27, Mean Corpuscular Volume 91, Mean Corpuscular Hemoglobin 30, Mean Corpuscular Hemoglobin Concent 33, Red Cell Distribution Width 14.3, Platelet Count 264, Mean Platelet Volume 9.5, Immature Granulocyte % (Auto) 2, Neutrophils (%) (Auto) 51, Lymphocytes (%) (Auto) 34, Monocytes (%) (Auto) 12, Eosinophils (%) (Auto) 2, Basophils (%) (Auto) 0, Neutrophils # (Auto) 3.4, Lymphocytes # (Auto) 2.3, Monocytes # (Auto) 0.8, Eosinophils # (Auto) 0.1, Basophils # (Auto) 0.0, Immature Granulocyte # (Auto) 0.1, Sodium Level 127, Potassium Level 4.5, Chloride Level 94, Carbon Dioxide Level 23, Anion Gap 10, Blood Urea Nitrogen 10, Creatinine 0.68, Estimat Glomerular Filtration Rate > 60, BUN/Creatinine Ratio 15, Glucose Level 107, Calcium Level 7.8, Corrected Calcium 9.2, Total Bilirubin 0.3, Aspartate Amino Transf (AST/SGOT) 24, Alanine Aminotransferase (ALT/SGPT) 25, Alkaline Phosphatase 172, Total Protein 5.6, Albumin 2.2 12/09/20 05:24: White Blood Count 7.4, Red Blood Count 3.00, Hemoglobin 9.0, Hematocrit 27, Mean Corpuscular Volume 91, Mean Corpuscular Hemoglobin 30, Mean Corpuscular Hemoglobin Concent 33, Red Cell Distribution Width 14.4, Platelet Count 282, Mean Platelet Volume 9.3, Immature Granulocyte % (Auto) 2, Neutrophils (%) (Auto) 53, Lymphocytes (%) (Auto) 31, Monocytes (%) (Auto) 13, Eosinophils (%) (Auto) 1, Basophils (%) (Auto) 0, Neutrophils # (Auto) 3.9, Lymphocytes # (Auto) 2.3, Monocytes # (Auto) 1.0, Eosinophils # (Auto) 0.1, Basophils # (Auto) 0.0, Immature Granulocyte # (Auto) 0.2, Sodium Level 127, Potassium Level 4.3, Chloride Level 94, Carbon Dioxide Level 23, Anion Gap 10, Blood Urea Nitrogen 9, Creatinine 0.70, Estimat Glomerular Filtration Rate > 60, BUN/Creatinine Ratio 13, Glucose Level 112, Calcium Level 7.9, Corrected Calcium 9.3, Total Bilirubin 0.3, Aspartate Amino Transf (AST/SGOT) 30, Alanine Aminotransferase (ALT/SGPT) 32, Alkaline Phosphatase 203, Total Protein 5.9, Albumin 2.3 12/11/20 07:45: Sodium Level 129, Potassium Level 4.1, Chloride Level 97, Carbon Dioxide Level 21, Anion Gap 11, Blood Urea Nitrogen 9, Creatinine 0.76, Estimat Glomerular Filtration Rate > 60, BUN/Creatinine Ratio 12, Glucose Level 128, Calcium Level 7.8 12/16/20 05:30: White Blood Count 9.0, Red Blood Count 2.88, Hemoglobin 8.4, Hematocrit 26, Mean Corpuscular Volume 89, Mean Corpuscular Hemoglobin 29, Mean Corpuscular Hemoglobin Concent 33, Red Cell Distribution Width 14.1, Platelet Count 267, Mean Platelet Volume 8.8, Immature Granulocyte % (Auto) 4, Neutrophils (%) (Auto) 59, Lymphocytes (%) (Auto) 25, Monocytes (%) (Auto) 11, Eosinophils (%) (Auto) 1, Basophils (%) (Auto) 0, Neutrophils # (Auto) 5.3, Lymphocytes # (Auto) 2.3, Monocytes # (Auto) 1.0, Eosinophils # (Auto) 0.1, Basophils # (Auto) 0.0, Immature Granulocyte # (Auto) 0.3, Sodium Level 130, Potassium Level 4.1, Chloride Level 99, Carbon Dioxide Level 20, Anion Gap 11, Blood Urea Nitrogen 11, Creatinine 0.70, Estimat Glomerular Filtration Rate > 60, BUN/Creatinine Ratio 16, Glucose Level 126, Calcium Level 7.7, Corrected Calcium 8.9, Iron Level 38, Total Bilirubin 0.2, Aspartate Amino Transf (AST/SGOT) 33, Alanine Aminotransferase (ALT/SGPT) 43, Alkaline Phosphatase 135, Total Protein 5.9, Albumin 2.5 12/20/20 10:19: White Blood Count 13.6, Red Blood Count 2.88, Hemoglobin 8.5, Hematocrit 25, Mean Corpuscular Volume 88, Mean Corpuscular Hemoglobin 30, Mean Corpuscular Hemoglobin Concent 34, Red Cell Distribution Width 14.5, Platelet Count 350, Mean Platelet Volume 8.7, Immature Granulocyte % (Auto) 2, Neutrophils (%) (A uto) 74, Lymphocytes (%) (Auto) 17, Monocytes (%) (Auto) 7, Eosinophils (%) (Auto) 0, Basophils (%) (Auto) 0, Neutrophils # (Auto) 10.0, Lymphocytes # (Auto) 2.2, Monocytes # (Auto) 0.9, Eosinophils # (Auto) 0.0, Basophils # (Auto) 0.1, Immature Granulocyte # (Auto) 0.3, Sodium Level 125, Potassium Level 4.0, Chloride Level 95, Carbon Dioxide Level 20, Anion Gap 10, Blood Urea Nitrogen 12, Creatinine 0.74, Estimat Glomerular Filtration Rate > 60, BUN/Creatinine Ratio 16, Glucose Level 155, Calcium Level 7.4, Corrected Calcium 8.4, Total Bilirubin 0.2, Aspartate Amino Transf (AST/SGOT) 22, Alanine Aminotransferase (ALT/SGPT) 38, Alkaline Phosphatase 114, Total Protein 6.5, Albumin 2.8, Lactic Acid Level 1.71, B-Type Natriuretic Peptide 39.8, Procalcitonin 0.16 12/21/20 05:00: White Blood Count 12.1, Red Blood Count 2.54, Hemoglobin 7.5, Hematocrit 23, Mean Corpuscular Volume 89, Mean Corpuscular Hemoglobin 30, Mean Corpuscular Hemoglobin Concent 33, Red Cell Distribution Width 14.9, Platelet Count 335, Mean Platelet Volume 8.5, Immature Granulocyte % (Auto) 3, Neutrophils (%) (Auto) 63, Lymphocytes (%) (Auto) 24, Monocytes (%) (Auto) 10, Eosinophils (%) (Auto) 1, Basophils (%) (Auto) 0, Neutrophils # (Auto) 7.6, Lymphocytes # (Auto) 2.8, Monocytes # (Auto) 1.2, Eosinophils # (Auto) 0.1, Basophils # (Auto) 0.0, Immature Granulocyte # (Auto) 0.4, Sodium Level 129, Potassium Level 4.3, Chloride Level 97, Carbon Dioxide Level 21, Anion Gap 11, Blood Urea Nitrogen 15, Creatinine 0.82, Estimat Glomerular Filtration Rate > 60, BUN/Creatinine Ratio 18, Glucose Level 120, Calcium Level 7.5, Corrected Calcium 8.5, Total Bilirubin 0.2, Aspartate Amino Transf (AST/SGOT) 19, Alanine Aminotransferase (ALT/SGPT) 34, Alkaline Phosphatase 102, Total Protein 6.1, Albumin 2.8, Lactic Acid Level 1.25, Procalcitonin 0.17 12/23/20 05:45: White Blood Count 13.2, Red Blood Count 2.05, Hemoglobin 6.2, Hematocrit 19, Mean Corpuscular Volume 91, Mean Corpuscular Hemoglobin 30, Mean Corpuscular Hemoglobin Concent 33, Red Cell Distribution Width 14.9, Platelet Count 408, Mean Platelet Volume 8.7, Immature Granulocyte % (Auto) 3, Neutrophils (%) (Auto) 59, Lymphocytes (%) (Auto) 26, Monocytes (%) (Auto) 10, Eosinophils (%) (Auto) 2, Basophils (%) (Auto) 1, Neutrophils # (Auto) 7.8, Lymphocytes # (Auto) 3.4, Monocytes # (Auto) 1.3, Eosinophils # (Auto) 0.2, Basophils # (Auto) 0.1, Immature Granulocyte # (Auto) 0.4, Sodium Level 131, Potassium Level 4.8, Chloride Level 100, Carbon Dioxide Level 20, Anion Gap 11, Blood Urea Nitrogen 21, Creatinine 0.82, Estimat Glomerular Filtration Rate > 60, BUN/Creatinine Ratio 26, Glucose Level 113, Calcium Level 7.8, Corrected Calcium 8.6, Total Bilirubin 0.2, Aspartate Amino Transf (AST/SGOT) 26, Alanine Aminotransferase (ALT/SGPT) 37, Alkaline Phosphatase 121, Total Protein 6.8, Albumin 3.0 12/24/20 06:30: White Blood Count 12.2, Red Blood Count 3.58, Hemoglobin 10.5, Hematocrit 32, Mean Corpuscular Volume 88, Mean Corpuscular Hemoglobin 29, Mean Corpuscular Hemoglobin Concent 33, Red Cell Distribution Width 14.8, Platelet Count 315, Mean Platelet Volume 8.4, Immature Granulocyte % (Auto) 2, Neutrophils (%) (Auto) 72, Lymphocytes (%) (Auto) 15, Monocytes (%) (Auto) 9, Eosinophils (%) (Auto) 2, Basophils (%) (Auto) 1, Neutrophils # (Auto) 8.7, Lymphocytes # (Auto) 1.8, Monocytes # (Auto) 1.1, Eosinophils # (Auto) 0.2, Basophils # (Auto) 0.1, Immature Granulocyte # (Auto) 0.3, Sodium Level 131, Potassium Level 4.6, Chloride Level 99, Carbon Dioxide Level 21, Anion Gap 11, Blood Urea Nitrogen 17, Creatinine 0.78, Estimat Glomerular Filtration Rate > 60, BUN/Creatinine Ratio 22, Glucose Level 115, Calcium Level 7.8, Corrected Calcium 8.5, Total Bilirubin 0.3, Aspartate Amino Transf (AST/SGOT) 23, Alanine Aminotransferase (ALT/SGPT) 38, Alkaline Phosphatase 124, Total Protein 6.8, Albumin 3.1 12/24/20 15:33: Urine Color YELLOW, Urine Clarity SL CLOUDY, Urine pH 5.5, Urine Specific Camp 1.010, Urine Protein TRACE, Urine Glucose (UA) NEGATIVE, Urine Ketones NEGATIVE, Urine Nitrite POSITIVE, Urine Bilirubin NEGATIVE, Urine Urobilinogen 0.2, Urine Leukocyte Esterase 3+, Urine RBC (Auto) TRACE-I, Urine RBC NONE, Urine WBC >100, Urine Squamous Epithelial Cells NONE, Urine Crystals NONE, Urine Bacteria LARGE, Urine Casts NONE, Urine Mucus LARGE, Urine Culture Indicated YES 12/28/20 06:05: White Blood Count 8.7, Red Blood Count 3.65, Hemoglobin 10.6, Hematocrit 33, Mean Corpuscular Volume 90, Mean Corpuscular Hemoglobin 29, Mean Corpuscular Hemoglobin Concent 32, Red Cell Distribution Width 14.6, Platelet Count 312, Mean Platelet Volume 8.6, Immature Granulocyte % (Auto) 2, Neutrophils (%) (Auto) 60, Lymphocytes (%) (Auto) 21, Monocytes (%) (Auto) 10, Eosinophils (%) (Auto) 6, Basophils (%) (Auto) 1, Neutrophils # (Auto) 5.2, Lymphocytes # (Auto) 1.9, Monocytes # (Auto) 0.9, Eosinophils # (Auto) 0.5, Basophils # (Auto) 0.1, Immature Granulocyte # (Auto) 0.2, Sodium Level 132, Potassium Level 3.7, Chloride Level 103, Carbon Dioxide Level 20, Anion Gap 9, Blood Urea Nitrogen 14, Creatinine 0.80, Estimat Glomerular Filtration Rate > 60, BUN/Creatinine Ratio 18, Glucose Level 116, Calcium Level 7.6, Corrected Calcium 8.3, Total Bilirubin 0.3, Aspartate Amino Transf (AST/SGOT) 20, Alanine Aminotransferase (ALT/SGPT) 27, Alkaline Phosphatase 121, Total Protein 6.8, Albumin 3.1 12/30/20 05:15: White Blood Count 10.7, Red Blood Count 4.29, Hemoglobin 12.4, Hematocrit 38, Mean Corpuscular Volume 89, Mean Corpuscular Hemoglobin 29, Mean Corpuscular Hemoglobin Concent 33, Red Cell Distribution Width 14.6, Platelet Count 355, Mean Platelet Volume 8.6, Immature Granulocyte % (Auto) 2, Neutrophils (%) (Auto) 55, Lymphocytes (%) (Auto) 27, Monocytes (%) (Auto) 7, Eosinophils (%) (Auto) 8, Basophils (%) (Auto) 1, Neutrophils # (Auto) 5.9, Lymphocytes # (Auto) 2.9, Monocytes # (Auto) 0.8, Eosinophils # (Auto) 0.8, Basophils # (Auto) 0.1, Immature Granulocyte # (Auto) 0.2, Sodium Level 134, Potassium Level 3.8, Chloride Level 105, Carbon Dioxide Level 17, Anion Gap 12, Blood Urea Nitrogen 13, Creatinine 0.73, Estimat Glomerular Filtration Rate > 60, BUN/Creatinine Ratio 18, Glucose Level 103, Calcium Level 8.1, Corrected Calcium 8.7, Total Bilirubin 0.4, Aspartate Amino Transf (AST/SGOT) 22, Alanine Aminotransferase (ALT/SGPT) 30, Alkaline Phosphatase 116, Total Protein 6.9, Albumin 3.2 Discharge Home Medications: Active Scripts Active Flomax (Tamsulosin HCl) 0.4 Mg Cap 0.4 Mg PO DAILY Biotene Moisturizing Mouth (Saliva Stimulant Agents Comb.3) 1 Each [place] 0 Each MM NEEDED PRN 30 Days Melatonin 3 Mg Tablet 6 Mg PO HS PRN 30 Days Lotrimin AF (Miconazole Nitrate) 90 Gm Powder 0 Gm TOP BID PRN 30 Days Metoclopramide HCl 5 Mg Tablet 5 Mg PO BID 30 Days Pantoprazole Sodium 40 Mg Tablet.dr 40 Mg PO BID 30 Days Sucralfate 1 Gm Tablet 1 Gm PO ACHS 30 Days Ondansetron Odt (Ondansetron) 4 Mg Tab.rapdis 4 Mg PO Q6H PRN 30 Days Stool Softener-Laxative Tablet (Sennosides/Docusate Sodium) 1 Each Tablet 1 Ea PO BID 30 Days Dok (Docusate Sodium) 100 Mg Capsule 100 Mg PO BID 30 Days Polyethylene Glycol 3350 17 Gm Powd.pack 17 Gm PO BID 30 Days Phenaseptic (Phenol) 177 Ml [place] 0 Ml MC Q2H PRN 30 Days [Artificial Tears] 3.5 GM Oint 0 Gm OU TID PRN 30 Days Fluticasone Propionate 16 Gm [place].susp 0 [place] NS DAILY 30 Days Sodium Chloride 1 Gm Tab 1 Gm PO BID 30 Days Xanax Tablet (Alprazolam) 0.25 Mg Tab 0.25 Mg PO Q4HR PRN Oxyir Tablet (Oxycodone HCl) 5 Mg Tab 5 Mg PO Q3HR PRN Fentanyl Patch 25 MCG (Fentanyl) 1 Each Patch.td72 25 Mcg TD Q72H Lisinopril 20 Mg Tablet 20 Mg PO DAILY 30 Days Amlodipine Besylate 10 Mg Tablet 10 Mg PO DAILY 30 Days Metoprolol Tartrate 25 Mg Tablet 25 Mg PO BID 30 Days Enoxaparin Sodium 40 Mg/0.4 Ml Syringe 40 Mg SC HS 30 Days Nicoderm Cq (Nicotine) 1 Each Patch.td24 14 Mg TD DAILY@0900 30 Days Albuterol Sulfate 2.5 Mg/3 Ml Vial.neb 2.5 Mg INH RTQ4HR PRN 30 Days [Bethanechol Chl] 25 MG Tab 25 Mg PO ACHS 30 Days Nitrofurantoin Titus-Mcr 100 mg (Nitrofurantoin Monohyd/M-Cryst) 100 Mg Capsule 100 Mg PO BID WITH MEALS 4 Days Reported Trelegy Ellipta 100-62.5-25 (Fluticasone/Umeclidin/Vilanter) 1 Each Blst.w.dev 1 Each IH DAILY Montelukast Sodium 10 Mg Tablet 10 Mg PO HS Cetirizine HCl 10 Mg Tablet 10 Mg PO DAILY Anoro Ellipta 62.5-25 Mcg INH (Umeclidinium Brm/Vilanterol Tr) 1 Each Blst.w.dev 1 Each IH DAILY Instructions to patient/family Please see electronic discharge instructions given to patient. Diagnosis/Problems Diagnosis/Problems (1) Myopathy (2) Ileus following gastrointestinal surgery (3) S/P right hemicolectomy (4) Presbycusis of both ears (5) Ileostomy in place (6) Anemia due to acute blood loss (7) Colon cancer (8) Hyponatremia (9) COPD (chronic obstructive pulmonary disease) (10) DVT prophylaxis WILFREDO MARTÍNEZ DO Dec 30, 2020 05:50
[2020-12-30 05:54] LABS: ALBUMIN 3.2 GM/DL (3.2-4.5); CHLORIDE 105 MMOL/L (98-107); POTASSIUM 3.8 MMOL/L (3.6-5.0); SODIUM 134 MMOL/L (135-145)
[2020-12-30 05:55] LABS: CALCIUM 8.1 MG/DL (8.5-10.1)
[2020-12-30 05:56] LABS: GLUCOSE 103 MG/DL (70-105); TOTAL PROTEIN 6.9 GM/DL (6.4-8.2)
[2020-12-30 05:57] LABS: CARBON DIOXIDE 17 MMOL/L (21-32)
[2020-12-30 05:58] LABS: BILIRUBIN,TOTAL 0.4 MG/DL (0.1-1.0)
[2020-12-30 06:00] LABS: ALKALINE PHOSPHATASE 116 U/L (40-136); CREATININE SERUM 0.73 MG/DL (0.60-1.30); GFR ESTIMATED > 60
[2020-12-30 06:01] LABS: BUN/CREATININE RATIO 18
[2020-12-30 06:03] LABS: ALANINE AMINOTRANSFERASE 30 U/L (0-55)
[2020-12-30] MEDS: TRELEGY ELLIPTA IH SCH (07:41)
--- NOTE | 2020-12-30 08:30 | Physical Therapy Daily Note ---
PT Daily Note-Current Subjective Patient in recliner pre tx, agrees to PT, has no complaints of pain. Appearance Patient in bed post tx with nurse call, phone, tray, all needs met. Mental Status Patient Orientation: Person, Place, Situation Attachments: Drains wound vac Transfers SCALE: Activities may be completed with or without assistive devices. 0-Urclrwgoru-dwydwum completes the activity by him/herself with no assistance from a helper. 5-Set-up or Clean-up Assistance-helper sets up or cleans up; patient completes activity. [place] assists only prior to or following the activity. 4-Supervision or Touching Assistance-helper provides verbal cues and/or touching/steadying and/or contact guard assistance as patient completes activity. Assistance may be provided throughout the activity or intermittently. 3-Partial/Moderate Assistance-helper does LESS THAN HALF the effort. [place] lifts, holds or supports trunk or limbs, but provides less than half the effort. 2-Substantial/Maximal Assistance-helper does MORE THAN HALF the effort. [place] lifts or holds trunk or limbs and provides more than half the effort. 8-Tgunsxmah-nsklyp does ALL the effort. Patient does none of the effort to complete the activity. Or, the assistance of 2 or more helpers is required for the patient to complete the activity. If activity was not attempted, code reason: 7-Patient Refused. 9-Not Applicable-not attempted and the patient did not perform the activity before the current illness, exacerbation or injury. 10-Not Attempted due to Environmental Limitations-(lack of equipment, weather restraints, etc.). 88-Not Attempted due to Medical Conditions or Safety Concerns. Roll Left & Right (QC): 6 Sit to Lying (QC): 6 Lying to Sitting/Side of Bed(Q: 6 Sit to Stand (QC): 6 Chair/Bih-tv-Mlkxm Xfer(QC): 6 Toilet Transfer (QC): 6 Car Transfer (QC): 6 Patient performs bed mobility and transfers with independence, car transfer independent. If she is not ambulating and just doing transfers patient doesn't need assist with her wound vac. Weight Bearing Full Weight Bearing Full Weight Bearing Gait Training Distance: 150'x2 Walk 10 feet (QC): 5 Walk 50 ft with 2 Turns(QC): 5 Walk 150 ft (QC): 5 Walking 10ft/uneven surface-QC: 5 Gait Persons Needed: 1 Gait Assistive Device: FWW Patient can ambulate 150' with a rolling walker with setup (including 50' with at least 2 turns of 90 degrees and 10' over an uneven surface). Patient ambulates slow but steady, needs assist with carrying wound vac. Wheelchair Training Does the Pt Use a Wheelchair?: No Stair Training Stair Training: Handrails/: 1 handrail #of Steps: 4 1 Step (curb) (QC): 4 4 Steps (QC): 4 12 Steps (QC): 88 Stairs: Pattern: Step to CGA, patient steps up and down sideways using both hands on one handrail Balance Picking up an Object (QC): 88 Treatments bed mobility and transfers, ambulation, car transfer, stairs Assessment Current Status: Fair Progress If patient didn't have wound vac for caregiver to carry she would be independent with ambulation PT Short Term Goals Short Term Goals Time Frame: Dec 21, 2020 Roll Left & Right: 4 Sit to lyin Lying to sitting on side of be: 4 Sit to stand: 4 Chair/smk-cd-zelxe transfer: 4 Toilet transfer: 4 Car transfer: 3 Walk 10 feet: 4 Walk 50 feet with two turns: 4 Walk 150 feet: 4 Walking 10ft on uneven surface: 4 1 step (curb): 4 Does pt use a wc or scooter: Yes Wheel 50ft w/2 turns: 4 Wheel 150 feet: 4 Type: Manual PT [facility] Goals Janitor Helper Goals PT [facility] Goals Time Frame: Jan 04, 2021 Roll Left & Right (QC): 6 Sit to Lying (QC): 6 Lying-Sitting on Side/Bed(QC): 6 Sit to Stand (QC): 6 Chair/Ncg-zf-Slvcj Xfer(QC): 6 Toilet Transfer (QC): 6 Car Transfer (QC): 5 Does the Patient Walk: Yes Walk 10 feet (QC): 6 Walk 50ft with 2 Turns (QC): 6 Walk 150 ft (QC): 5 Walking 10ft on Uneven Surface: 6 1 Step (curb) (QC): 5 4 Steps (QC): 5 12 Steps (QC): 4 Picking up an Object (QC): 4 Does the Pt use WC or Scooter?: Yes Wheel 50 feet with 2 turns (QC: 6 Type: Manual Wheel 150 feet: 6 Type: Manual PT Plan Problem List Problem List: Activity Tolerance, Functional Strength, Safety, Balance, Gait, Transfer Treatment/Plan Treatment Plan: Continue Plan of Care Treatment Plan: Bed Mobility, Concurrent Therapy, Functional Activity [place], Functional Strength, Group Therapy, Gait, Safety, Therapeutic Exercise, Transfers Treatment Duration: Jan 04, 2021 Frequency: At least 5 of 7 days/Wk (IRF) Estimated Hrs Per Day: 1.5 hours per day Patient and/or Family Agrees t: Yes Safety Risks/Education Patient Education: Gait Training, Transfer Techniques, Correct Positioning, Safety Issues Teaching Recipient: Patient Teaching Methods: Demonstration, Discussion Response to Teaching: Reinforcement Needed Time/GCodes Time In: 0800 Time Out: 829 Total Billed Treatment Time: 30 Total Billed Treatment 1 visit FA 30' RAMOS POLLOCK PT Dec 30, 2020 08:30
[2020-12-30] MEDS: PANTOPRAZOLE 40 MG (PROTONIX) TAB PO SCH (08:31)
[2020-12-30] MEDS: NITROFURANTOIN 100 MG (MACROBID) CAPSULE PO SCH (08:31)
[2020-12-30] MEDS: METOCLOPRAMIDE 5 MG (REGLAN) TAB PO SCH (08:31)
[2020-12-30] MEDS: amLODIPine 10 MG (NORVASC) TAB PO SCH (08:31)
[2020-12-30] MEDS: NICOTINE 14 MG (NICODERM) PATCH TD SCH (08:31)
[2020-12-30] MEDS: meTOprolol TARTRATE 25 MG (LOPRESSOR) TABLET PO SCH (08:31)
[2020-12-30] MEDS: lisINopril 20 MG (PRINIVIL) TABLET PO SCH (08:31)
[2020-12-30] MEDS: SODIUM CHLORIDE 1 GM TABLET PO SCH (08:32)
[2020-12-30] MEDS: FLUTICASONE NASAL SPRAY (FLONASE) 16 GM BTL NS SCH (08:32)
[2020-12-30] MEDS: NICOTINE PATCH REMOVAL TP SCH (08:35)
[2020-12-30] MEDS ORDERED: TMSL.4C PO (08:55)
--- NOTE | 2020-12-30 09:23 | Speech Therapy Daily Note ---
Speech Daily Progress Note Subjective Date Seen by Provider: Dec 30, 2020 Time Seen by Provider: 00:10 Patient had just finished up her wound care when I entered her room. She is anxious about leaving today for the [facility]. Objective Patient completed safety awareness task cards with scenarios she may encounter upon her return home with 90% given minimal cues. Assessment Assessment Current Status: Good Progress Treatment Plan Discontinue ST, Goals Met Speech Short Term Goals Short Term Goals Short Term Goals 1) Patient will complete memory tasks related to her daily needs with minimal cues at 80% or greater. 2) Patient will complete safety awareness tasks related to her daily needs with minimal cues at 80% or greater. 3) Patient will complete problem solving tasks related to her daily needs with minimal cues at 80% or greater. Speech Senior Care Goals Casket Assembler Metal Goals Patient will improve cognitive-communication necessary for safety and daily living tasks with minimal assist. Speech-Plan Patient/Family Goals Patient/Family Goals: Patient is discharging to [facility] this afternoon for continued therapy. Treatment Plan Speech Therapy Treatment Plan: Discontinue ST, Goals Met Treatment Duration: Jan 03, 2021 Frequency: 4 times per week (Patient will receive skilled ST 4-5x per week) Estimated Hrs Per Day: .5 hour per day Rehab Potential: Fair Barriers to Learning: Patient's recent lengthy COVID recovery Pt/Family Agrees to Plan: Yes Safety Risks/Education Teaching Recipient: Patient Teaching Methods: Demonstration, Discussion Response to Teaching: Verbalize Understanding, Return Demonstration Education Topics Provided: Continued safety in her new living environment Time Speech Therapy Time In: 11:00 Speech Therapy Time Out: 11:10 Total Billed Time: 10 Billed Treatment Time 1, SLTS No QUALITY CODES: EXPRESSION OF IDEAS/WANTS: 4 UNDERSTABDUBG VERBAL CONTENT: 4 BRIEF INTERVIEW MENTAL STATUS: YES REPETITION OF 3 WORDS: 3 TEMPORAL ORIENTATION: YEAR: CORRECT, MONTH: CORRECT, DAY: CORRECT RECALL SOCK: YES WITH CUE, COLOR: YES, BED: YES MEMORY/RECALL ABILITY: SEASON, LOCATION OF ROOM, STAFF NAMES, THAT SHE IS IN THE HOSPITAL UMALESVIA Dec 30, 2020 09:23
[2020-12-30] MEDS: DOCUSATE SODIUM 100 MG (COLACE) CAP PO SCH (10:06)
[2020-12-30] MEDS: SENNA W/DOCUSATE (SENOKOT S) TABLET PO SCH (10:07)
[2020-12-30] MEDS: polyethylene glycoL POWDER 17 GM (MIRALAX) PACK PO SCH (10:07)
--- NOTE | 2020-12-30 10:09 | Therapy Team Discharge Summary ---
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 Upon evaluation patient performed bed mobility with mod assist, supine <-> sit max assist, sit <-> stand and transfers with mod assist, and ambulated 3' with a rolling walker with min a ssist. Patient has been performing bed mobility and transfer training, balance and endurance training, functional strengthening, stair training, gait training, and education. Patient has made fair progress but has not met her [facility] goals for ambulation and stairs. Now, patient performs bed mobility and transfers with independence, car transfer independent, ambulate 150' with a rolling walker with setup (including 50' with at least 2 turns of 90 degrees and 10' over an uneven surface), and can go up and down 4 steps using 1 handrail with CGA. Patient is discharging from this facility today and will be discharged from PT at this time. Occupational Therapy Decreased Activ Tolerance, Decreased UE Strength, Impaired Funct Balance PT Paper Baler Goals Paper Baler Goals PT Snf Goals Time Frame: Jan 04, 2021 Roll Left to Right (QC): 6 Sit to Lying (QC): 6 Lying-Sitting on Side/Bed(QC): 6 Sit to Stand (QC): 6 Chair/Pjo-hb-Ktugf Xfer(QC): 6 Car Transfer (QC): 5 Does the Patient Walk: Yes Walk 10 feet (QC): 6 Walk 10ft-Uneven Surface(QC): 6 Walk 50ft with 2 Turns (QC): 6 Walk 150 ft (QC): 5 Does the Pt use WC or Scooter?: Yes Wheel 50 feet with 2 turns (QC: 6 1 Step (curb) (QC): 5 4 Steps (QC): 5 12 Steps (QC): 4 Picking up an Object (QC): 4 OT Snf Goals Snf Goals Time Frame: Jan 06, 2021 Eating (FIM): 6 Eating (QC): 6 Oral Hygiene (QC): 6 Shower/Bathe Self (QC): 4 Upper Body Dressing (QC): 5 Lower Body Dressing (QC): 4 On/Off Footwear (QC): 4 Toileting(FIM): 6 Toileting Hygiene (QC): 4 Toilet/Commode Transfer (QC): 6 Additional Goals: 1-Demonstrate ADL Tasks, 2-Verbalize Understanding, 3- ImproveStrength/Palak 1=Demonstrate adherence to instructed precautions during ADL tasks. 2=Patient will verbalize/demonstrate understanding of assistive devices/modifications for ADL. 3=Patient will improve strength/tolerance for activity to enable patient to perform ADL's. Speech Paper Baler Goals Paper Baler Goals Patient will improve cognitive-communication necessary for safety and daily living tasks with minimal assist. RAMOS POLLOCK PT Dec 30, 2020 10:09
--- NOTE | 2020-12-30 13:07 | Therapy Team Discharge Summary ---
Therapy Discharge Summary Discharge Recommendations Date of Discharge Occupational Therapy Decreased Activ Tolerance, Decreased UE Strength, Impaired Funct Balance Speech-Language Pathology Patient was admitted to the ARU for COVID recovery. Patient had a two month veronica with COVID which made her very weak. She received skilled ST as indicated by the [facility] upon arrival. Patient met her goals for ST and made good progress. She is discharging to [facility] this afternoon. PT Retirement Goals Optical Lab Technician Goals PT Retirement Goals Time Frame: Jan 04, 2021 Roll Left to Right (QC): 6 Sit to Lying (QC): 6 Lying-Sitting on Side/Bed(QC): 6 Sit to Stand (QC): 6 Chair/Ryv-zs-Mjmqa Xfer(QC): 6 Car Transfer (QC): 5 Does the Patient Walk: Yes Walk 10 feet (QC): 6 Walk 10ft-Uneven Surface(QC): 6 Walk 50ft with 2 Turns (QC): 6 Walk 150 ft (QC): 5 Does the Pt use WC or Scooter?: Yes Wheel 50 feet with 2 turns (QC: 6 1 Step (curb) (QC): 5 4 Steps (QC): 5 12 Steps (QC): 4 Picking up an Object (QC): 4 OT Optical Lab Technician Goals Retirement Goals Time Frame: Jan 06, 2021 Eating (FIM): 6 Eating (QC): 6 Oral Hygiene (QC): 6 Shower/Bathe Self (QC): 4 Upper Body Dressing (QC): 5 Lower Body Dressing (QC): 4 On/Off Footwear (QC): 4 Toileting(FIM): 6 Toileting Hygiene (QC): 4 Toilet/Commode Transfer (QC): 6 Additional Goals: 1-Demonstrate ADL Tasks, 2-Verbalize Understanding, 3- ImproveStrength/Palak 1=Demonstrate adherence to instructed precautions during ADL tasks. 2=Patient will verbalize/demonstrate understanding of assistive devices/modifications for ADL. 3=Patient will improve strength/tolerance for activity to enable patient to perform ADL's. Speech Retirement Goals Retirement Goals Patient will improve cognitive-communication necessary for safety and daily living tasks with minimal assist. LESVIA EATON Dec 30, 2020 13:07
[2020-12-30 13:10] VITALS: BP 129/58
--- NOTE | 2020-12-30 13:13 | Speech Therapy Daily Note ---
Speech Daily Progress Note Subjective Date Seen by Provider: Dec 12, 2020 Time Seen by Provider: 00:30 Patient was resting in her bed watching television when I entered her room. Objective Patient completed safety awareness task cards with scenarios she may encounter upon her return home with 75% given minimal to moderate cues. Assessment Assessment Current Status: Fair Progress Treatment Plan Continue Plan of Care Speech Short Term Goals Short Term Goals Short Term Goals 1) Patient will complete memory tasks related to her daily needs with minimal cues at 80% or greater. 2) Patient will complete safety awareness tasks related to her daily needs with minimal cues at 80% or greater. 3) Patient will complete problem solving tasks related to her daily needs with minimal cues at 80% or greater. Speech Powertrain Design Engineer Goals [facility] Goals Patient will improve cognitive-communication necessary for safety and daily living tasks with minimal assist. Speech-Plan Patient/Family Goals Patient/Family Goals: Patient plans on returning to her home where she lives with her sister if she is able. Treatment Plan Speech Therapy Treatment Plan: Continue Plan of Care Treatment Duration: Jan 03, 2021 Frequency: 4 times per week (Patient will receive skilled ST 4-5x per week) Estimated Hrs Per Day: .5 hour per day Rehab Potential: Fair Barriers to Learning: Patient's lengthy veronica with COVID recovery. Pt/Family Agrees to Plan: Yes Safety Risks/Education Teaching Recipient: Patient Teaching Methods: Demonstration, Discussion Response to Teaching: Verbalize Understanding, Return Demonstration Education Topics Provided: Safety within her room, communication of wants/needs Time Speech Therapy Time In: 08:30 Speech Therapy Time Out: 09:00 Total Billed Time: 30 Billed Treatment Time 1, SLLESVIA Infante Dec 30, 2020 13:13
--- NOTE | 2020-12-30 13:18 | Occupational Ther Daily Note ---
OT Current Status-Daily Note Subjective No pain reported. Appearance Pt. in bed. Agrees to shower. Mental Status/Objective Patient Orientation: Person, Place Attachments: Drains, IV Wound vac ADL-Treatment Therapy Code Descriptions/Definitions Functional [place] Measure: 0=Not Assessed/NA 4=Minimal Assistance 1=Total Assistance 5=Supervision or Setup 2=Maximal Assistance 6=Modified [place] 3=Moderate Assistance 7=Complete IndependenceSCALE: Activities may be completed with or without assistive devices. 5-Dilltiompj-andpvuf completes the activity by him/herself with no assistance from a helper. 5-Set-up or Clean-up Assistance-helper sets up or cleans up; patient completes activity. [place] assists only prior to or following the activity. 4-Supervision or Touching Assistance-helper provides verbal cues and/or touching/steadying and/or contact guard assistance as patient completes activity. Assistance may be provided throughout the activity or intermittently. 3-Partial/Moderate Assistance-helper does LESS THAN HALF the effort. [place] lifts, holds or supports trunk or limbs, but provides less than half the effort. 2-Substantial/Maximal Assistance-helper does MORE THAN HALF the effort. [place] lifts or holds trunk or limbs and provides more than half the effort. 1-Uvhydyxvt-leuyew does ALL the effort. Patient does none of the effort to complete the activity. Or, the assistance of 2 or more helpers is required for the patient to complete the activity. If activity was not attempted, code reason: 7-Patient Refused. 9-Not Applicable-not attempted and the patient did not perform the activity before the current illness, exacerbation or injury. 10-Not Attempted due to Environmental Limitations-(lack of equipment, weather restraints, etc.). 88-Not Attempted due to Medical Conditions or Safety Concerns. Eating (QC): 6 Oral Hygiene (QC): 4 (SBA standing at sink.) Shower/Bathe Self (QC): 4 (CGA in stance. Pt. utilized LH sponge.) Upper Body Dressing (QC): 5 Lower Body Dressing (QC): 7 (Pt. declines donning underwear or shorts due to multiple abdominal wounds.) On/Off Footwear: 3 (Mod assist using AE.) Toileting Hygiene (QC): 4 Toilet Transfer (QC): 4 Education OT Patient Education: Correct positioning, Modified ADL techniques, Progress toward Goal/Update tx plan, Purpose of tx/functional activities, Reviewed precautions, Rehab process, Transfer techniques Teaching Recipient: Patient Teaching Methods: Demonstration, Discussion Response to Teaching: Verbalize Understanding, Return Demonstration OT Short Term Goals Short Term Goals Time Frame: Dec 23, 2020 Eatin Oral hygiene: 4 Toileting hygiene: 3 Shower/bathe self: 3 Upper body dressin Lower body dressin Putting on/taking off footwear: 3 OT Senior Radiation Therapist Goals Senior Radiation Therapist Goals Time Frame: Jan 06, 2021 Eating (QC): 6 Oral Hygiene (QC): 6 Toileting Hygiene (QC): 4 Shower/Bathe Self (QC): 4 Upper Body Dressing (QC): 5 Lower Body Dressing (QC): 4 On/Off Footwear (QC): 4 Additional Goals: 1-Demonstrate ADL Tasks, 2-Verbalize Understanding, 3- ImproveStrength/Palak 1=Demonstrate adherence to instructed precautions during ADL tasks. 2=Patient will verbalize/demonstrate understanding of assistive devices/modifications for ADL. 3=Patient will improve strength/tolerance for activity to enable patient to perform ADL's. OT Education/Plan Problem List/Assessment Assessment: Decreased Activ Tolerance, Impaired I ADL's, Impaired Self-Care Skills Discharge Recommendations Plan/Recommendations: Continue POC Therapy Discharge Recommendati: 24 Hour Supervision, Other, See Comments Comment Pt. is discharging this date to alf facility to continued with Occupational therapy and Physical therapy needs. Treatment Plan/Plan of Care Treatment,Training & Education: Yes Patient would benefit from OT for education, treatment and training to promote independence in ADL's, mobility, safety and/or upper extremity function for ADL's. Plan of Care: ADL Retraining, Concurrent Therapy, Functional Mobility, W/C Management Training Treatment Duration: Dec 09, 2020 Frequency: At least 5 of 7 days/Wk (IRF) Estimated Hrs Per Day: 1.5 hours per day Agreement: Yes Rehab Potential: Fair Time/GCodes Start Time: 08:30 Stop Time: 09:15 Total Time Billed (hr/min): 45 Billed Treatment Time 1, ADL x 3 KOKI STOKES OT Dec 30, 2020 13:18
--- NOTE | 2020-12-30 14:35 | Therapy Team Discharge Summary ---
Therapy Discharge Summary Discharge Recommendations Date of Discharge Dec 30, 2020 at 13:10 Therapy D/C Recommendations: Jail (TCU/NH) Occupational Therapy Pt. was seen on Rehab unit to increase overall strength and independence with daily tasks. Pt. made a lot of progress, but overall requires mod assist for footwear, set up to don shirt/gown, and CGA/SBA to toileting. Pt. is able to shower with SBA using AE. Pt. required cues and encouragement throughout treatment sessions. Pt. discharged this date to nursing facility for continued strengthening, as well as wound care. Equipment needs will be addressed at that facility. Decreased Activ Tolerance, Impaired I ADL's, Impaired Self-Care Skills PT Residential Goals Residential Goals PT Skiving Machine Operator Goals Time Frame: Jan 04, 2021 Roll Left to Right (QC): 6 Sit to Lying (QC): 6 Lying-Sitting on Side/Bed(QC): 6 Sit to Stand (QC): 6 Chair/Igt-ve-Mutqn Xfer(QC): 6 Car Transfer (QC): 5 Does the Patient Walk: Yes Walk 10 feet (QC): 6 Walk 10ft-Uneven Surface(QC): 6 Walk 50ft with 2 Turns (QC): 6 Walk 150 ft (QC): 5 Does the Pt use WC or Scooter?: Yes Wheel 50 feet with 2 turns (QC: 6 1 Step (curb) (QC): 5 4 Steps (QC): 5 12 Steps (QC): 4 Picking up an Object (QC): 4 OT Skiving Machine Operator Goals Skiving Machine Operator Goals Time Frame: Jan 06, 2021 Eating (FIM): 6 (met) Eating (QC): 6 (met) Oral Hygiene (QC): 6 (not met) Shower/Bathe Self (QC): 4 (met) Upper Body Dressing (QC): 5 (met) Lower Body Dressing (QC): 4 (not met) On/Off Footwear (QC): 4 (not met) Toileting(FIM): 6 (not met) Toileting Hygiene (QC): 4 (not met) Toilet/Commode Transfer (QC): 6 (not met) Additional Goals: 1-Demonstrate ADL Tasks, 2-Verbalize Understanding, 3- ImproveStrength/Palak 1=Demonstrate adherence to instructed precautions during ADL tasks. 2=Patient will verbalize/demonstrate understanding of assistive devices/modifications for ADL. 3=Patient will improve strength/tolerance for activity to enable patient to perform ADL's. Speech Skiving Machine Operator Goals Skiving Machine Operator Goals Patient will improve cognitive-communication necessary for safety and daily living tasks with minimal assist. KOKI STOKES OT Dec 30, 2020 14:35
[2020-12-30] MEDS ORDERED: TAMSULOSIN 0.4 MG (FLOMAX) CAP PO SCH (18:00)
== END 2020-12-30 13:10 | DRG 92 ==
PROVIDERS: ADMIT Internal Medicine; ATTEND Internal Medicine
DX: G72.81 Critical illness myopathy (principal); E22.2 Syndrome of inappropriate secretion of antidiuretic hormone; Z93.2 Ileostomy status; I10 Essential (primary) hypertension; L89.152 Pressure ulcer of sacral region, stage 2; J44.9 Chronic obstructive pulmonary disease, unspecified; N31.9 Neuromuscular dysfunction of bladder, unspecified; R33.9 Retention of urine, unspecified; D64.9 Anemia, unspecified; F17.210 Nicotine dependence, cigarettes, uncomplicated; E78.00 Pure hypercholesterolemia, unspecified; E78.5 Hyperlipidemia, unspecified; M19.91 Primary osteoarthritis, unspecified site; M54.9 Dorsalgia, unspecified; H91.13 Presbycusis, bilateral; F41.9 Anxiety disorder, unspecified; F32.9 Major depressive disorder, single episode, unspecified; Z85.038 Personal history of other malignant neoplasm of large intestine; Z87.01 Personal history of pneumonia (recurrent); Z97.4 Presence of external hearing-aid; Z79.82 Long term (current) use of aspirin; Z88.0 Allergy status to penicillin
CPT/HCPCS: 36415; 71045; 80048; 80053; 81000; 83540; 83605; 83880; 84145; 85025; 86850; 86900; 86901; 86920; 87077; 87088; 87186; 94640; 94760

== ENCOUNTER 2021-01-12 11:29 | Inpatient (IN) | payer MEDICARE ==
[~2021-01-12] VITALS: Ht 157.5 cm; Wt 79.3 kg
[~2021-01-12 11:29] MED LIST changes: -ACETAMINOPHEN 500 MG TAB (TYLENOL) PO PRN; +ALBU2.5V4 INH; +ALPR.25T PO; -ALPRAZolam 0.25 MG (XANAX) TAB PO PRN; +AMLO-251 PO; +Artificial Tears OU; -BISACODYL 10 MG SUPP (DULCOLAX) PR PRN; +Bethanechol Chl PO; -CALCIUM CARBONATE 500 MG (TUMS) TAB.CHEW PO PRN; +DCS100C PO; -DOCUSATE SODIUM 100 MG (COLACE) CAP PO PRN; +ENOX40DI8 SC; +FENT1PAT8 TD; -FLEET ENEMA ADULT 1 EA BTL PR PRN; +FLUT16SP22 NS; -LACTULOSE SYRUP 10GM/15ML (ENULOSE) 30ML UDC PO PRN; +LISI20TA26 PO; -LOPERAMIDE 2 MG (IMODIUM) TABLET PO PRN; +MELA3TAB39 PO; -MELATONIN 3 MG TABLET PO PRN; +METO-333 PO; +METO5TAB2 PO; +MICO90PO TOP; +NF-NACL1GT PO; +NICO1PAT38 TD; +NITR100C10 PO; +ONDA4TAB11 PO; -ONDANSETRON 4 MG (ZOFRAN) ORAL DISSOLVE TAB PO PRN; +OXC5T PO; +PANT40TA52 PO; +PHEN120L2 MC; +POLY17PO54 PO; +SALI45SP MM; +SENN1TAB76 PO; +SUCR1TAB PO; +TMSL.4C PO; -diphenhydrAMINE 25 MG TAB (BENADRYL) PO PRN; -guaiFENesin/CODEINE (ROBITUSSIN AC) 10ML UDC PO PRN
[2021-01-12 12:25] LABS: BASOPHILS # (AUTO) 0.1 10^3/uL (0.0-0.1); BASOPHILS % (AUTO) 1 % (0-10); EOSINOPHILS # (AUTO) 0.1 10^3/uL (0.0-0.3); EOSINOPHILS % (AUTO) 1 % (0-10); HEMATOCRIT 35 % (35-52); HEMOGLOBIN 11.5 g/dL (11.5-16.0); LYMPHOCYTES # (AUTO) 1.9 10^3/uL (1.0-4.0); LYMPHOCYTES % (AUTO) 17 % (12-44); MEAN CORPUSCULAR HEMOGLOBIN 29 pg (25-34); MEAN CORPUSCULAR HGB CONC 33 g/dL (32-36); MEAN CORPUSCULAR VOLUME 88 fL (80-99); MONOCYTES % (AUTO) 9 % (0-12); NEUTROPHILS # (AUTO) 7.8 10^3/uL (1.8-7.8); NEUTROPHILS % (AUTO) 70 % (42-75); PLATELET COUNT 423 10^3/uL (130-400); WHITE BLOOD COUNT 11.3 10^3/uL (4.3-11.0)
[2021-01-12 12:29] LABS: ALBUMIN 3.5 GM/DL (3.2-4.5)
[2021-01-12 12:30] LABS: INR 1.3 (0.8-1.4); PROTHROMBIN TIME PATIENT 16.2 SEC (12.2-14.7)
[2021-01-12] MEDS ORDERED: ONDANSETRON 4 MG/2 ML (SDV) Z0FRAN IVP ONE (12:30)
[2021-01-12] MEDS ORDERED: NS IV 1000 ML 1,000 ML IV SCH (12:30)
[2021-01-12 12:31] LABS: BILIRUBIN,URINE NEGATIVE (NEGATIVE); CLARITY,URINE CLOUDY; COLOR,URINE YELLOW; GLUCOSE, URINE (UA) NEGATIVE (NEGATIVE); KETONES,URINE NEGATIVE (NEGATIVE); LEUKOCYTE ESTERASE ,URINE 2+ (NEGATIVE); NITRITE,URINE NEGATIVE (NEGATIVE); PH,URINE 5.5 (5-9); PROTEIN,URINE 2+ (NEGATIVE)
[2021-01-12 12:31] LABS: CALCIUM 8.1 MG/DL (8.5-10.1)
[2021-01-12 12:32] LABS: TOTAL PROTEIN 7.5 GM/DL (6.4-8.2)
[2021-01-12 12:34] LABS: BILIRUBIN,TOTAL 0.3 MG/DL (0.1-1.0)
[2021-01-12 12:36] LABS: CREATININE SERUM 3.84 MG/DL (0.60-1.30)
[2021-01-12 12:42] LABS: BACTERIA,URINE LARGE /HPF; WBC,URINE >100 /HPF
[2021-01-12 12:46] LABS: POTASSIUM 5.3 MMOL/L (3.6-5.0)
[2021-01-12] MEDS ORDERED: MEROPENEM 500 MG in WATER (STERILE) FOR INJECTION 10 ML IV ONE (13:00)
--- NOTE | 2021-01-12 13:29 | Diagnostic Imaging Report ---
INDICATION: Sepsis. COMPARISON: Exam compared to 12/21/2020. FINDINGS: Chronic air trapping, stable. No acute infiltrate, effusion, pneumothorax, or failure pattern. Hilar and mediastinal contours are normal. Air trapping and COPD, stable. IMPRESSION: Clear hyperexpanded lungs, stable. No acute-appearing abnormality. Dictated by: Dictated on workstation # [id number]
--- NOTE | 2021-01-12 13:32 | ED General ---
General Chief Complaint: Skin/Wound Problems Stated Complaint: ABD WOUND Nursing Triage Note: PT BROUGHT IN BY [facility] FROM [facility] WITH COMPLAINT OF WOUND VAC NOT WORKING, HYPOTENSION, N/V. PT HAS WOUND VAC AND LANE DRAIN FROM ABDOMINAL INCISION. Nursing Sepsis Screen: No Definite Risk Source of Information: Patient, EMS, Intermediate Records, Old Records Exam Limitations: No Limitations History of Present Illness Date Seen by Provider: Jan 12, 2021 Time Seen by Provider: 12:00 Initial Comments Patient is a 75-year-old female who presents to the emergency department by EMS from [facility] with a chief complaint of decreased blood pressure. Patient has had a very complicated past medical course over the last 3 months as a result of hemicolectomy from colon cancer with a subsequent torsion of her ostomy and replacement of an ileostomy. She has had battles with sepsis and generalized deconditioning requiring rehab placement. Most recently the patient had a malfunction of her wound VAC as of yesterday and dressing changes were started without the wound VAC. Patient is complaining currently of some abdominal discomfort. She denies feeling short of breath, chest pain, headache. Patient is having some nausea but has not had vomiting. Patient states that it hurts to take a deep breath in her abdomen. She does have an indwelling Lam catheter. She has a LANE drain from her wound in her abdomen. She is not having diarrhea. She states she is having normal output from her ostomy site. All other review of systems reviewed and negative except as stated above. Timing/Duration: 4-6 Hours Severity: Moderate Modifying Factors: worse with Movement Associated Systoms: Loss of Appetite, Nausea/Vomiting Allergies and Home Medications Allergies Coded Allergies: Penicillins (Verified Allergy, Unknown, Anaphylaxis, 09/26/20) budesonide (Verified Allergy, Unknown, Nausea, PT USES TRELEGY, 12/20/20) formoterol (Verified Allergy, Unknown, Nausea, 09/26/20) midazolam (Verified Allergy, Unknown, Anaphylaxis, 09/26/20) Home Medications ALPRAZolam 0.25 Mg Tablet, 0.25 MG PO Q4H PRN for ANXIETY, (Reported) Albuterol Sulfate 2.5 Mg/0.5 Ml Vial.neb, 2.5 MG INH Q4H PRN for SHORTNESS OF BREATH, (Reported) Amlodipine Besylate 10 Mg Tablet, 10 MG PO DAILY, (Reported) DO NOT GIVE IF BP <80/50 OR >180/110 AND P <50 OR >110 Cetirizine HCl 10 Mg Tablet, 10 MG PO DAILY, (Reported) Docusate Sodium 100 Mg Capsule, 100 MG PO BID, (Reported) Enoxaparin Sodium 40 Mg/0.4 Ml Syringe, 40 MG SQ HS, (Reported) Fentanyl 1 Each Patch.td72, 25 MCG TD Q72H, (Reported) Fluticasone Propionate 9.9 Ml [place].susp, 1 SPRAY NSEACH DAILY, (Reported) Fluticasone/Umeclidin/Vilanter 1 Each Blst.w.dev, 1 PUFF IH DAILY, (Reported) Lisinopril 20 Mg Tablet, 20 MG PO DAILY, (Reported) DO NOT GIVE IF BP <80/50 OR >180/100 AND P <50 OR >110 Melatonin 3 Mg Tablet, 6 MG PO HS PRN for INSOMNIA, (Reported) TAKES 2 (3MG) TABLETS Metoclopramide HCl 5 Mg Tablet, 5 MG PO BID, (Reported) Metoprolol Tartrate 25 Mg Tablet, 25 MG PO BID, (Reported) DO NOT GIVE BP <80/50 OR >180/110 AND P <50 OR >110 Miconazole 5 Gm Powder, 1 APPLIC TOP Q12H PRN for RASH, (Reported) Montelukast Sodium 10 Mg Tablet, 10 MG PO HS, (Reported) Nicotine 1 Each Patch.td24, 14 MG TD DAILY, (Reported) Ondansetron HCl 4 Mg Tablet, 4 MG PO Q6H PRN for NAUSEA/VOMITING-1ST LINE, (Reported) Oxycodone HCl 5 Mg Tablet, 5 MG PO Q3H PRN for PAIN-SEVERE (8-10), (Reported) Pantoprazole Sodium 40 Mg Tablet.dr, 40 MG PO BID, (Reported) Phenol 177 Ml [place], 1 SPRAY MM Q2H PRN for Throat Irritation, (Reported) Polyethylene Glycol 3350 17 Gm Powd.pack, 17 GM PO BID, (Reported) Propylene Glycol/Peg 400 15 Ml Drops, 1 DROP OU Q8H PRN for DRY EYES, (Reported) Saliva Stimulant Agents Comb.3 1 Each [place], 1 EACH MM PRN PRN for DRY MOUTH, (Reported) Sennosides/Docusate Sodium 1 Each Tablet, 1 EACH PO BID, (Reported) Sodium Chloride 1 Gm Tab, 1 GM PO BID, (Reported) Sucralfate 1 Gm Tablet, 1 GM PO QIDACHS, (Reported) Tamsulosin HCl 0.4 Mg Cap, 0.4 MG PO DAILY, (Reported) Umeclidinium Brm/Vilanterol Tr 1 Each Blst.w.dev, 1 PUFF IH DAILY, (Reported) [Bethanechol 25MG] , 25 MG PO QIDACHS, (Reported) Patient Home Medication List Home Medication List Reviewed: Yes Review of Systems Review of Systems Constitutional: see HPI EENTM: no symptoms reported Respiratory: no symptoms reported; No cough, No short of breath Cardiovascular: no symptoms reported; No chest pain Gastrointestinal: abdominal pain, heartburn, nausea; No vomiting Genitourinary: no symptoms reported : No Musculoskeletal: no symptoms reported Skin: other (wound anterior abdominal wall) All Other Systems Reviewed Negative Unless Noted: Yes Past Syvuymd-Jusbde-Jypdus Hx Patient Social History Alcohol Use: Denies Use Smoking Status: Former Smoker Type Used: Cigarettes 2nd Hand Smoke Exposure: No Recent Infectious Disease Expo: No Recent Hopitalizations: No Immunizations Up To Date Tetanus Booster (TDap): Unknown Date of Pneumonia Vaccine: Jul 25, 2020 Date of Influenza Vaccine: Jul 25, 2020 Seasonal Allergies Seasonal Allergies: Yes Past Medical History Surgeries: Yes (cone section, colon resection) Abdominal, Tonsillectomy Respiratory: Yes COPD Currently Using CPAP: No Currently Using BIPAP: No Cardiac: Yes High Cholesterol, Hypertension Neurological: No Genitourinary: No Gastrointestinal: Yes (colon cancer) Chronic Constipation Musculoskeletal: Yes Arthritis, Chronic Back Pain Endocrine: No HEENT: Yes (cataracts removed, dentures) Hearing Impairment: Hard of Hearing, Bilateral Hearing Aide Cancer: Yes Colon What Type of Treatment Did You: Surgical Intervention Psychosocial: No Integumentary: No Blood Disorders: No Physical Exam Vital Signs Vital Signs - First Documented 01/12/21 11:32 Temp 36.3 Pulse 87 Resp 24 B/P (MAP) 85/55 (65) Pulse Ox 96 O2 Delivery Room Air Capillary Refill : Less Than 3 Seconds Height, Weight, BMI Height: '" Weight: lbs. oz. kg; 32.00 BMI Method: General Appearance: No Apparent Distress, WD/WN Eyes: Bilateral Eye Normal Inspection, Bilateral Eye PERRL, Bilateral Eye EOMI HEENT: Normal ENT Inspection (dry mucous membranes) Neck: Normal Inspection Respiratory: Lungs Clear, Normal Breath Sounds, No Accessory Muscle Use, No Respiratory Distress Cardiovascular: Regular Rate, Rhythm, No Murmur Gastrointestinal: Soft, Tenderness (tenderness just inferior to anterior abdominal wound) Extremity: Normal Inspection, Normal Range of Motion Neurologic/Psychiatric: Alert, Oriented x3, No Motor/Sensory Deficits, Normal Mood/Affect (flat affect) Skin: Normal Color, Warm/Dry, Other (large anterior abdominal wound with wet to dry dressing in place. base of the wound is somewhat purulent.) Focused Exam Lactate Level 01/12/21 11:36: Lactic Acid Level 0.75 Lactic Acid Level Laboratory Tests Test 01/12/21 11:36 Lactic Acid Level 0.75 MMOL/L (0.50-2.00) Procedures/Interventions Date of ETT Placement: Nov 15, 2020 Progress/Results/Core Measures Suspected Sepsis Recent Fever Within 48 Hours: No Infection Criteria Present: None New/Unexplained Altered Menta: No Sepsis Screen: No Definite Risk SIRS Temperature: Pulse: 87 Respiratory Rate: 24 Blood Pressure 85 /55 Mean: 65 01/12/21 11:36: Lactic Acid Level 0.75 Laboratory Tests 01/12/21 11:36: INR Comment 1.3, Total Bilirubin 0.3 Results/Orders Lab Results Laboratory Tests Test 01/12/21 11:36 01/12/21 11:41 01/12/21 12:34 Range/Units White Blood Count 11.3 H 4.3-11.0 10^3/uL Red Blood Count 3.94 3.80-5.11 10^6/uL Hemoglobin 11.5 11.5-16.0 g/dL Hematocrit 35 35-52 % Mean Corpuscular Volume 88 80-99 fL Mean Corpuscular Hemoglobin 29 25-34 pg Mean Corpuscular Hemoglobin Concent 33 32-36 g/dL Red Cell Distribution Width 14.6 H 10.0-14.5 % Platelet Count 423 H 130-400 10^3/uL Mean Platelet Volume 9.0 9.0-12.2 fL Immature Granulocyte % (Auto) 3 % Neutrophils (%) (Auto) 70 42-75 % Lymphocytes (%) (Auto) 17 12-44 % Monocytes (%) (Auto) 9 0-12 % Eosinophils (%) (Auto) 1 0-10 % Basophils (%) (Auto) 1 0-10 % Neutrophils # (Auto) 7.8 1.8-7.8 10^3/uL Lymphocytes # (Auto) 1.9 1.0-4.0 10^3/uL Monocytes # (Auto) 1.0 0.0-1.0 10^3/uL Eosinophils # (Auto) 0.1 0.0-0.3 10^3/uL Basophils # (Auto) 0.1 0.0-0.1 10^3/uL Immature Granulocyte # (Auto) 0.3 H 0.0-0.1 10^3/uL Prothrombin Time 16.2 H 12.2-14.7 SEC INR Comment 1.3 0.8-1.4 Activated Partial Thromboplast Time 30 24-35 SEC Sodium Level 125 *L 135-145 MMOL/L Potassium Level 5.3 H 3.6-5.0 MMOL/L Chloride Level 100 98-107 MMOL/L Carbon Dioxide Level 11 L 21-32 MMOL/L Anion Gap 14 5-14 MMOL/L Blood Urea Nitrogen 45 H 7-18 MG/DL Creatinine 3.84 H 0.60-1.30 MG/DL Estimat Glomerular Filtration Rate 11 BUN/Creatinine Ratio 12 Glucose Level 156 H 70-105 MG/DL Lactic Acid Level 0.75 0.50-2.00 MMOL/L Calcium Level 8.1 L 8.5-10.1 MG/DL Corrected Calcium 8.5 8.5-10.1 MG/DL Total Bilirubin 0.3 0.1-1.0 MG/DL Aspartate Amino Transf (AST/SGOT) 13 5-34 U/L Alanine Aminotransferase (ALT/SGPT) 21 0-55 U/L Alkaline Phosphatase 109 40-136 U/L Total Protein 7.5 6.4-8.2 GM/DL Albumin 3.5 3.2-4.5 GM/DL Procalcitonin 0.34 H <0.10 NG/ML Urine Color YELLOW Urine Clarity CLOUDY Urine pH 5.5 5-9 Urine Specific [place] 1.025 H 1.016-1.022 Urine Protein 2+ H NEGATIVE Urine Glucose (UA) NEGATIVE NEGATIVE Urine Ketones NEGATIVE NEGATIVE Urine Nitrite NEGATIVE NEGATIVE Urine Bilirubin NEGATIVE NEGATIVE Urine Urobilinogen 0.2 < = 1.0 MG/DL Urine Leukocyte Esterase 2+ H NEGATIVE Urine RBC (Auto) TRACE-I NEGATIVE Urine RBC NONE /HPF Urine WBC >100 H /HPF Urine Crystals NONE /LPF Urine Bacteria LARGE H /HPF Urine Casts NONE /LPF Urine Mucus NEGATIVE /LPF Urine Culture Indicated CULTURE PENDING Coronavirus 2019 (EM) Negative Negative Micro Results Microbiology 01/12/21 Gram Stain - Final, Complete 01/12/21 Wound Culture - Final, Complete Pseudomonas aeruginosa 01/12/21 Urine Culture - Final, Complete Klebsiella pneumoniae 01/12/21 Blood Culture - Final, Complete Staphylococcus epidermidis See Comments 01/12/21 Blood Culture - Preliminary, Resulted No growth My Orders Orders - VENUS ASHER MD Cbc With Automated Diff (01/12/21 12:16) Comprehensive Metabolic Panel (01/12/21 12:16) Blood Culture (01/12/21 12:16) Urinalysis (01/12/21 12:16) Urine Culture (01/12/21 12:16) Protime With Inr (01/12/21 12:16) Partial Thromboplastin Time (01/12/21 12:16) Chest 1 View, Ap/Pa Only (01/12/21 12:16) Ed Iv/Invasive Line Start (01/12/21 12:16) Ed Iv/Invasive Line Start (01/12/21 12:16) Vital Signs Adult Sepsis Patie Q15M (01/12/21 12:16) O2 (01/12/21 12:16) Lactic Acid Analyzer (01/12/21 12:16) Covid 19 Inhouse Test (01/12/21 12:17) Wound Culture (01/12/21 12:28) Ondansetron Injection (Zofran Injectio (01/12/21 12:30) Ns Iv 1000 Ml (Sodium Chloride 0.9%) (01/12/21 12:30) Ct Abdomen/Pelvis Wo (01/12/21 12:54) Meropenem (Merrem 500 Mg) (01/12/21 13:00) Procalcitonin (Pct) (01/12/21 13:32) Medications Given in ED Vital Signs/I&O 01/12/21 11:32 Temp 36.3 Pulse 87 Resp 24 B/P (MAP) 85/55 (65) Pulse Ox 96 O2 Delivery Room Air Capillary Refill : Less Than 3 Seconds Blood Pressure Mean: 65 Progress Note : Time: 13:58 Progress Note Case discussed with Dr. Cabrera. He would like a procalcitonin sent. He is good with continuing IV fluids. Patient's blood pressure is quite responsive to fl uids initially after her first liter of fluid was completed her blood pressure was 105 systolic. Merrem has been given. Critical Care Note Critical Care Start Time: 12:00 Stop Time: 13:30 Total Time (minutes) 40 minutes critical care time in the evaluation management of this patient with sepsis. Time includes extensive review of the medical record, discussion with hospitalist, management of hypotension with fluid resuscitation, antibiotic administration Departure Communication (Admissions) Time/Spoke to Admitting Phy: 13:[address] Cabrera on for the hospitalist service recommends a procalcitonin, continued IV fluids and antibiotics and ICU admission for septic shock, possible urinary tract infection Impression Primary Impression: Septic shock Additional Impressions: Urinary tract infection Qualified Codes: T83.511A - Infection and inflammatory reaction due to indwelling urethral catheter, initial encounter; N39.0 - Urinary tract infection, site not specified Abdominal pain Qualified Codes: R10.30 - Lower abdominal pain, unspecified Acute renal failure Qualified Codes: N17.9 - Acute kidney failure, unspecified Hyponatremia Disposition: ADMITTED INPATIENT Condition: Critical Admissions Decision to Admit Reason: Admit from ER (General) Decision to Admit/Date: Jan 12, 2021 Time/Decision to Admit Time: 13:32 Departure-Patient Inst. Referrals: KARLENE TABOR MD (PCP/Family) Primary Care Physician VENUS ASHER MD Jan 12, 2021 13:32
--- NOTE | 2021-01-12 14:01 | Diagnostic Imaging Report ---
PROCEDURE: CT abdomen and pelvis without contrast. TECHNIQUE: Multiple contiguous axial images were obtained through the abdomen and pelvis without the use of intravenous contrast. Auto Exposure Controls were utilized during the CT exam to meet ALARA standards for radiation dose reduction. INDICATION: Pain, sepsis and dehydration. Correlation is made with a CT metabolic fusion PET performed 09/17/2020. FINDINGS: There has been apparent resection of a previous large circumferential hypermetabolic masses at the mid transverse colon. There is bilateral lower quadrant diverting ostomies without parastomal hernia. There is a surgical drain deep to the postoperative midline anterior abdominal wall with unclosed incision. There is some new nodularity in the periumbilical subcutaneous fat on the right. This may be small amounts of foci of subcutaneous hemorrhage on a postsurgical basis but could reflect small periumbilical teresa metastases. These average about 1.5 cm and number about 5 and are all confluent. Right of midline and splaying of multiple surgical clips is a somewhat vertically oriented tubular structure with internal complex fluid. Extending from a level just below the pancreatic head and inferiorly to a level to the level of the anterosuperior iliac spine. It measures about 13 cm cephalocaudal and in axial plane measures a maximal AP thickness of 5.5 cm containing no intraluminal air. Its superior and inferior margins are near adjacent bowel loops but did not clearly communicate with the remaining gut. This is probably loculated collection including possibilities for abscess. The possibility of a focally dilated segment of viscus associated with an anastomosis could not be entirely excluded. Prior to any percutaneous intervention I would suggest a repeat scanning following delayed oral contrast to make sure that this a saccule does not show opacification. No other potential abscess was found. There is no evidence for bowel obstruction. There is noninflamed diverticulosis of the sigmoid. The uterus and adnexa unremarkable. The urinary bladder is catheterized and nearly empty. There is slight basilar atelectasis on the left. There is no free air. IMPRESSION: Postoperative changes with bilateral diverting ostomies and an open midline wound. No bowel, biliary or urinary tract obstruction. Vertically oriented fluid collection indeterminate dilated viscus associated with an anastomosis versus a fluid collection such as abscess. Delayed post oral contrast enhanced scanning recommended if percutaneous drainage would be considered. Periumbilical subcutaneous nodularity small hematomata versus a periumbilical metastatic disease. Renal cyst and nonobstructing calcifications without hydronephrosis. Nonfocal unopacified liver with no bile duct dilatation. Probable tiny gallstones noted. Dictated by: Dictated on workstation # [id number]
[2021-01-12] MEDS: NS IV 1000 ML 1,000 ML IV SCH ×4 (14:05→22:19)
[2021-01-12 14:45] VITALS: BP 112/44
[2021-01-12 15:00] VITALS: BP 107/78
--- NOTE | 2021-01-12 17:53 | History & Physical-Hospitalist ---
History of Present Illness HPI/Chief Complaint Bere Pinto is a 75 year old female with history of colon cancer s/p resection and colostomy with complication requiring subsequent ileostomy who presented with low blood pressure and was admitted with septic shock. She has been at [facility]. She is having chills. She reports some abdominal pain. She thinks her ostomy output may have increased. She denies any blood in her ostomy. She reports nausea. She denies shortness of breath and cough. She denies dysuria, frequency, and urgency. Source: patient Exam Limitations: no limitations Date Seen 01/12/21 Time Seen by a Provider: 17:45 Attending Physician Preeti Lee MD PCP Tish Ba MD Referring Physician Date of Admission Jan 12, 2021 at 14:00 Home Medications & Allergies Home Medications Reviewed patient Home Medication Reconciliation performed by pharmacy medication reconciliations vehicle modification technician and/or nursing. Patients Allergies have been reviewed. Allergies Allergies Coded Allergies Penicillins (Verified Allergy, Unknown, Anaphylaxis, 09/26/20) budesonide (Verified Allergy, Unknown, Nausea, PT USES TRELEGY, 12/20/20) formoterol (Verified Allergy, Unknown, Nausea, 09/26/20) midazolam (Verified Allergy, Unknown, Anaphylaxis, 09/26/20) Past Waiivys-Hmpeww-Ebtvet Hx Past Med/Social Hx: Reviewed Nursing Past Med/Soc Hx Patient Social History Alcohol Use: Denies Use Recreational Drug Use: No Smoking Status: Former Smoker Type Used: Cigarettes 2nd Hand Smoke Exposure: No Recent Foreign Travel: No Contact w/other who traveled: No Recent Hopitalizations: No Recent Infectious Disease Expo: No Immunizations Up To Date Tetanus Booster (TDap): Unknown Date of Pneumonia Vaccine: Jul 25, 2020 Date of Influenza Vaccine: Jul 25, 2020 Seasonal Allergies Seasonal Allergies: Yes Past Medical History Surgeries: Abdominal, Tonsillectomy Respiratory: COPD, Pneumonia Currently Using CPAP: No Currently Using BIPAP: No Cardiac: High Cholesterol, Hypertension Gastrointestinal: Chronic Constipation Musculoskeletal: Arthritis, Chronic Back Pain Hearing Impairment: Hard of Hearing, Bilateral Hearing Aide Cancer: Colon What Type of Treatment Did You: Surgical Intervention History of Blood Disorders: No Review of Systems Constitutional: chills, fever, malaise, weakness EENTM: no symptoms reported Respiratory: no symptoms reported Cardiovascular: no symptoms reported Gastrointestinal: abdominal pain, nausea Genitourinary: no symptoms reported Musculoskeletal: no symptoms reported Skin: no symptoms reported Psychiatric/Neurological: No Symptoms Reported Physical Exam Physical Exam Vital Signs Vital Signs - First Documented 01/12/21 11:32 Temp 36.3 Pulse 87 Resp 24 B/P (MAP) 85/55 (65) Pulse Ox 96 O2 Delivery Room Air Capillary Refill : Less Than 3 Seconds Height, Weight, BMI Height: '" Weight: lbs. oz. kg; 32.89 BMI Method: General Appearance: Mild Distress (chills), Obese HEENT: PERRL/EOMI, Pharynx Normal Neck: Normal Inspection, Supple Respiratory: Lungs Clear, Normal Breath Sounds, No Respiratory Distress Cardiovascular: Regular Rate, Rhythm, No Edema, No Murmur Gastrointestinal: Tenderness, Other (colostomy and ileostomy in place, LANE drain, diffuse tenderness, hypoactive bowel sounds) Extremity: Normal Inspection, Non Tender, No Pedal Edema Neurologic/Psychiatric: Alert, Oriented x3, Depressed Affect, Motor Weakness Skin: Normal Color, Warm/Dry Results Results/Procedures Labs Laboratory Tests 01/12/21 11:36 Patient resulted labs reviewed. Imaging: Reviewed Imaging Report Assessment/Plan Admission Diagnosis Septic shock Admission Status: Inpatient Order (span 2 midnights) Reason for Inpatient Admission: Septic shock requiring fluids and antibiotics Assessment and Plan Septic shock Urinary tract infection Possible abscess Acute kidney injury Hyponatremia Low BP despite adequate fluid resuscitation Creatinine 3.8, up from baseline 0.7 Continue IV fluids UA consistent with UTI CT Abdomen with concerning fluid collection, possible abscess Consult Dr. Lynch, general surgery Started on Meropenem Blood cultures pending Consult pulmonology and TeleICU DVT prophylaxis: Heparin PREETI LEE MD Jan 12, 2021 17:53
[2021-01-13] MEDS: MEROPENEM 500 MG/SWFI 10 ML IV PUSH IV SCH ×4 (00:19→12:54)
[2021-01-13] MEDS ORDERED: NS IV 500 ML 500 ML ONE (01:00)
[2021-01-13] MEDS ORDERED: NS 100 ML (IVPB) BAG IV ONE (01:15)
[2021-01-13 03:19] LABS: BASOPHILS # (AUTO) 0.1 10^3/uL (0.0-0.1); BASOPHILS % (AUTO) 1 % (0-10); EOSINOPHILS # (AUTO) 0.3 10^3/uL (0.0-0.3); EOSINOPHILS % (AUTO) 3 % (0-10); HEMATOCRIT 30 % (35-52); HEMOGLOBIN 9.7 g/dL (11.5-16.0); LYMPHOCYTES # (AUTO) 1.8 10^3/uL (1.0-4.0); LYMPHOCYTES % (AUTO) 20 % (12-44); MEAN CORPUSCULAR HEMOGLOBIN 29 pg (25-34); MEAN CORPUSCULAR HGB CONC 32 g/dL (32-36); MEAN CORPUSCULAR VOLUME 89 fL (80-99); MEAN PLATELET VOLUME 8.7 fL (9.0-12.2); MONOCYTES # (AUTO) 1.1 10^3/uL (0.0-1.0); MONOCYTES % (AUTO) 12 % (0-12); NEUTROPHILS # (AUTO) 5.5 10^3/uL (1.8-7.8); NEUTROPHILS % (AUTO) 62 % (42-75); PLATELET COUNT 300 10^3/uL (130-400)
[2021-01-13 03:35] LABS: CHLORIDE 114 MMOL/L (98-107); POTASSIUM 4.3 MMOL/L (3.6-5.0); SODIUM 134 MMOL/L (135-145)
[2021-01-13 03:36] LABS: CALCIUM 7.2 MG/DL (8.5-10.1)
[2021-01-13 03:37] LABS: GLUCOSE 91 MG/DL (70-105)
[2021-01-13 03:40] LABS: PHOSPHORUS 4.8 MG/DL (2.3-4.7)
[2021-01-13 03:41] LABS: CREATININE SERUM 1.93 MG/DL (0.60-1.30); GFR ESTIMATED 25
[2021-01-13 03:42] LABS: BUN/CREATININE RATIO 18
[2021-01-13 03:56] LABS: CARBON DIOXIDE 8 MMOL/L (21-32); MAGNESIUM < 0.6 MG/DL (1.6-2.4)
[2021-01-13] MEDS ORDERED: SODIUM BICARB 8.4% 50 MEQ/50 ML VIAL ONE (04:12)
[2021-01-13] MEDS ORDERED: D5W 1000 ML IV SOLUTION 1,000 ML ONE (04:14)
[2021-01-13] MEDS: MAGNESIUM 1 GM/100 ML IVPB 100 ML IV SCH ×6 (04:27→09:16)
[2021-01-13] MEDS: SODIUM BICARBONATE 8.4% VIAL 150 MEQ in D5W 1000 ML IV SOLUTION 1,000 ML IV SCH ×2 (04:27→13:53)
[2021-01-13] MEDS ORDERED: LACTATED RINGERS 1,000 ML IV SCH ×2 (05:45→06:15)
--- NOTE | 2021-01-13 05:49 | Pulmonary Consultation ---
History of Present Illness History of Present Illness Date Seen by Provider: Jan 13, 2021 Time Seen by Provider: 05:43 Date of Admission Allergies and Home Medications Allergies Coded Allergies: Penicillins (Verified Allergy, Unknown, Anaphylaxis, 09/26/20) budesonide (Verified Allergy, Unknown, Nausea, PT USES TRELEGY, 12/20/20) formoterol (Verified Allergy, Unknown, Nausea, 09/26/20) midazolam (Verified Allergy, Unknown, Anaphylaxis, 09/26/20) Home Medications ALPRAZolam 0.25 Mg Tab, 0.25 MG PO Q4HR PRN for ANXIETY Prescribed by: WILFREDO MARTÍNEZ on 12/29/201214 Albuterol Sulfate 2.5 Mg/3 Ml Vial.neb, 2.5 MG INH RTQ4HR PRN for SHORTNESS OF BREATH Prescribed by: WILFREDO MARTÍNEZ on 12/29/201214 Amlodipine Besylate 10 Mg Tablet, 10 MG PO DAILY Prescribed by: WILFREDO MARTÍNEZ on 12/29/201214 Cetirizine HCl 10 Mg Tablet, 10 MG PO DAILY, (Reported) Docusate Sodium 100 Mg Capsule, 100 MG PO BID Prescribed by: WILFREDO MARTÍNEZ on 12/29/201214 Enoxaparin Sodium 40 Mg/0.4 Ml Syringe, 40 MG SC HS Prescribed by: WILFREDO MARTÍNEZ on 12/29/201214 Fentanyl 1 Each Patch.td72, 25 MCG TD Q72H Prescribed by: WILFREDO MARTÍNEZ on 12/29/201214 Fluticasone Propionate 16 Gm [place].susp, 0 SPRAY NS DAILY Prescribed by: WILFREDO MARTÍNEZ on 12/29/201214 Fluticasone/Umeclidin/Vilanter 1 Each Blst.w.dev, 1 EACH IH DAILY, (Reported) Lisinopril 20 Mg Tablet, 20 MG PO DAILY Prescribed by: WILFREDO MARTÍNEZ on 12/29/201214 Melatonin 3 Mg Tablet, 6 MG PO HS PRN for INSOMNIA Prescribed by: WILFREDO MARTÍNEZ on 12/29/201214 Metoclopramide HCl 5 Mg Tablet, 5 MG PO BID Prescribed by: WILFREDO MARTÍNEZ on 12/29/201214 Metoprolol Tartrate 25 Mg Tablet, 25 MG PO BID Prescribed by: WILFREDO MARTÍNEZ on 12/29/201214 Miconazole Nitrate 90 Gm Powder, 0 GM TOP BID PRN for RASH Prescribed by: WILFREDO MARTÍNEZ on 12/29/201214 Montelukast Sodium 10 Mg Tablet, 10 MG PO HS, (Reported) Nicotine 1 Each Patch.td24, 14 MG TD DAILY@0900 Prescribed by: WILFREDO MARTÍNEZ on 12/29/201214 Nitrofurantoin Monohyd/M-Cryst 100 Mg Capsule, 100 MG PO BID WITH MEALS Prescribed by: WILFREDO MARTÍNEZ on 12/29/201214 Ondansetron 4 Mg Tab.rapdis, 4 MG PO Q6H PRN for NAUSEA/VOMITING-1ST LINE Prescribed by: WILFREDO MARTÍNEZ on 12/29/201214 Oxycodone Hcl 5 Mg Tab, 5 MG PO Q3HR PRN for PAIN-SEVERE (8-10) Prescribed by: WILFREDO MARTÍNEZ on 12/29/201214 Pantoprazole Sodium 40 Mg Tablet.dr, 40 MG PO BID Prescribed by: WILFREDO MARTÍNEZ on 12/29/201214 Phenol 177 Ml [place], 0 ML MC Q2H PRN for Throat Irritation Prescribed by: WILFREDO MARTÍNEZ on 12/29/201214 Polyethylene Glycol 3350 17 Gm Powd.pack, 17 GM PO BID Prescribed by: WILFREDO MARTÍNEZ on 12/29/201214 Saliva Stimulant Agents Comb.3 1 Each [place], 0 EACH MM NEEDED PRN for DRY MOUTH Prescribed by: WILFREDO MARTÍNEZ on 12/29/201214 Sennosides/Docusate Sodium 1 Each Tablet, 1 EA PO BID Prescribed by: WILFREDO MARTÍNEZ on 12/29/201214 Sodium Chloride 1 Gm Tab, 1 GM PO BID Prescribed by: WILFREDO MARTÍNEZ on 12/29/201214 Sucralfate 1 Gm Tablet, 1 GM PO ACHS Prescribed by: WILFREDO MARTÍNEZ on 12/29/201214 Tamsulosin HCl 0.4 Mg Cap, 0.4 MG PO DAILY Prescribed by: JERMAINE PENG on 12/30/20 0855 Umeclidinium Brm/Vilanterol Tr 1 Each Blst.w.dev, 1 EACH IH DAILY, (Reported) [Artificial Tears] 3.5 GM OINT, 0 GM OU TID PRN for DRY EYES Prescribed by: WILFREDO MARTÍNEZ on 12/29/201214 [Bethanechol Chl] 25 MG TAB, 25 MG PO ACHS Prescribed by: WILFREDO MARTÍNEZ on 12/29/201214 Past Vcgxuip-Zhvenm-Fbfrpg Hx Past Med/Social Hx: Reviewed Nursing Past Med/Soc Hx Patient Social History Alcohol Use: Denies Use Smoking Status: Former Smoker Type Used: Cigarettes 2nd Hand Smoke Exposure: No Recent Infectious Disease Expo: No Recent Hopitalizations: No Alcohol Use?: No Immunizations Up To Date Tetanus Booster (TDap): Unknown Date of Pneumonia Vaccine: Jul 25, 2020 Date of Influenza Vaccine: Jul 25, 2020 Seasonal Allergies Seasonal Allergies: Yes Past Medical History Surgeries: Yes (cone section, colon resection) Abdominal, Tonsillectomy Respiratory: Yes COPD Currently Using CPAP: No Currently Using BIPAP: No Cardiac: Yes High Cholesterol, Hypertension Neurological: No Genitourinary: No Gastrointestinal: Yes (colon cancer) Chronic Constipation Musculoskeletal: Yes Arthritis, Chronic Back Pain Endocrine: No HEENT: Yes (cataracts removed, dentures) Hearing Impairment: Hard of Hearing, Bilateral Hearing Aide Cancer: Yes Colon What Type of Treatment Did You: Surgical Intervention Psychosocial: No Integumentary: No Blood Disorders: No Sepsis Event Evaluation Height, Weight, BMI Height: '" Weight: lbs. oz. kg; 32.89 BMI Method: Exam Exam Vital Signs Date Time Temp Pulse Resp B/P (MAP) Pulse Ox O2 Delivery O2 Flow Rate FiO2 01/13/21 05:07 93 15 94/45 (61) 90 Room Air 01/13/21 04:07 94 16 103/45 (64) 91 Room Air 01/13/21 04:00 94 Room Air 01/13/21 03:07 95 35 110/51 (70) 94 Room Air 01/13/21 02:07 90 21 112/52 (72) 91 Room Air 01/13/21 01:07 93 27 100/44 (62) 93 Room Air 01/13/21 01:00 95 01/13/21 00:21 90 28 104/49 (67) 92 Room Air 01/13/21 00:00 94 Room Air 01/12/21 23:58 36.4 01/12/21 23:20 90 20 91/45 (60) 92 Room Air 01/12/21 22:00 92 23 88/42 (57) 91 Room Air 01/12/21 21:00 92 23 100/41 (60) 91 Room Air 01/12/21 20:00 94 Room Air 01/12/21 20:00 92 17 98/45 (62) 95 Room Air 01/12/21 19:18 36.6 95 18 126/56 (79) 95 Room Air 01/12/21 19:00 89 01/12/21 18:00 90 18 1/45 (30) 92 Room Air 01/12/21 17:00 86 14 88/40 (56) 93 Room Air 01/12/21 16:08 95 Room Air 01/12/21 16:03 95 Room Air 01/12/21 16:00 87 12 91/49 (63) 92 Room Air 01/12/21 15:00 85 01/12/21 15:00 86 23 107/78 (88) 95 Room Air 01/12/21 14:45 36.2 87 112/44 (66) 95 Room Air 01/12/21 14:45 95 Room Air 01/12/21 14:37 81 14 100/78 95 Room Air 01/12/21 11:32 36.3 87 24 85/55 (65) 96 Room Air I & O 01/13/21 07:00 Intake Total 1760 ml Output Total 1960 ml Balance -200 ml Height & Weight Height: '" Weight: lbs. oz. kg; 32.89 BMI Method: General Appearance: Mild Distress (chills), Obese HEENT: PERRL/EOMI, Pharynx Normal Neck: Normal Inspection, Supple Respiratory: Lungs Clear, Normal Breath Sounds, No Respiratory Distress Cardiovascular: Regular Rate, Rhythm, No Edema, No Murmur Capillary Refill: Less Than 3 Seconds Extremity: Normal Inspection, Non Tender, No Pedal Edema Neurologic/Psychiatric: Alert, Oriented x3, Depressed Affect, Motor Weakness Skin: Normal Color, Warm/Dry Results Lab Laboratory Tests 01/12/21 11:36 01/13/21 03:00 Assessment/Plan Assessment/Plan Septic shock -improving -Currently on BiCarb gtt 100ml/hr -Cultures penidng -merrem Diarrhea -check Cdiff Hypomag -Replace and recheck Urinary tract infection -Merrem -Cultures pending Possible abscess s/p recent surgery with colostomy -Surgery is following -s/p CT of abdomen and pelvis Anemia -Monitor Acute kidney injury Hyponatremia Monitor DVT prophylaxis: Heparin GIOVANNA BORREGO DO Jan 13, 2021 05:49
[2021-01-13] MEDS ORDERED: MAGNESIUM 1 GM/100 ML IVPB 100 ML IV SCH (06:00)
[2021-01-13] MEDS ORDERED: POTASSIUM CL 10MEQ/50ML IVPB 50 ML IV SCH (06:00)
[2021-01-13] MEDS ORDERED: KCL 20 MEQ TAB (K-DUR) PO SCH (06:00)
[2021-01-13 07:54] LABS: ABG BASE EXCESS -13.6 MMOL/L (-2.5-2.5); ABG OXYGEN SATURATION 94 % (94-100); ABG PCO2 26 MMHG (35-45); ABG PO2 73 MMHG (79-93); ABG TCO2 12.8 MMOL/L (21.0-31.0)
[2021-01-13 07:58] LABS: ABG PH 7.28 (7.37-7.43); ALLENS TEST YES-POS; INSPIRED O2 ROOM AIR; VENTILATOR NO
[2021-01-13 07:59] LABS: PATIENT TEMP 36.5
--- NOTE | 2021-01-13 08:25 | Diagnostic Imaging Report ---
INDICATION: Sepsis and renal failure Frontal chest obtained at 0312 a.m. is compared to previous day. Heart is borderline in size. There is mild hyperinflation with biapical bullous disease. There is an incidental variant of an azygos lobe in the right upper lobe. There is no new infiltrate or pneumothorax or pleural fluid. IMPRESSION: COPD changes and borderline heart size. No focal infiltrate or pleural fluid. Dictated by: Dictated on workstation # [id number]
[2021-01-13] MEDS ORDERED: SODIUM BICARB 8.4% 50 MEQ/50 ML VIAL IV ONE (09:00)
[2021-01-13] MEDS ORDERED: PANTOPRAZOLE 40 MG (PROTONIX) VIAL IV SCH (09:00)
[2021-01-13] MEDS ORDERED: AMLO-251 PO (09:20)
[2021-01-13] MEDS ORDERED: FENT1PAT8 TD (09:20)
[2021-01-13] MEDS ORDERED: ONDA-105 PO (09:20)
[2021-01-13] MEDS ORDERED: TMSL.4C PO (09:20)
[2021-01-13] MEDS ORDERED: SENN1TAB33 PO (09:20)
[2021-01-13] MEDS ORDERED: ENOX40DI8 SQ (09:20)
[2021-01-13] MEDS ORDERED: POLY17PO6 PO (09:20)
[2021-01-13] MEDS ORDERED: ALPR0.254 PO (09:20)
[2021-01-13] MEDS ORDERED: NF-NACL1GT PO (09:20)
[2021-01-13] MEDS ORDERED: SUCR1TAB PO (09:20)
[2021-01-13] MEDS ORDERED: ALB0.5V INH (09:20)
[2021-01-13] MEDS ORDERED: SALI45SP MM (09:20)
[2021-01-13] MEDS ORDERED: METO-333 PO (09:20)
[2021-01-13] MEDS ORDERED: METO5TAB2 PO (09:20)
[2021-01-13] MEDS ORDERED: DOCU100C37 PO (09:20)
[2021-01-13] MEDS ORDERED: PROP15DR OU (09:20)
[2021-01-13] MEDS ORDERED: MELA3TAB39 PO (09:20)
[2021-01-13] MEDS ORDERED: PANT40TA52 PO (09:20)
[2021-01-13] MEDS ORDERED: FLUT9.9S NSEACH (09:20)
[2021-01-13] MEDS ORDERED: BETHANECHOL 25 MG PO (09:20)
[2021-01-13] MEDS ORDERED: PHEN177S52 MM (09:20)
[2021-01-13] MEDS ORDERED: NICO-587 TD (09:20)
[2021-01-13] MEDS ORDERED: MICO5POW6 TOP (09:20)
[2021-01-13] MEDS ORDERED: OXYC5TAB PO (09:20)
[2021-01-13] MEDS ORDERED: LISI20TA26 PO (09:20)
--- NOTE | 2021-01-13 10:51 | Progress Note - Hospitalist ---
LATISHA LEVI MED STUDENT 01/13/21 1051: Subjective HPI/CC On Admission Date Seen by Provider: Jan 13, 2021 Time Seen by Provider: 08:45 Bere Pinto is a 75 year old female with history of colon cancer s/p resection and colostomy with complication requiring subsequent ileostomy who presented with low blood pressure and was admitted with septic shock. She has been at [facility]. She is having chills. She reports some abdominal pain. She thinks her ostomy output may have increased. She denies any blood in her ostomy. She reports nausea. She denies shortness of breath and cough. She denies dysuria, frequency, and urgency. Subjective/Events-last exam Pt awake and eating breakfast upon entry. Pt shaking and notes eating the cold ice cream made her chills worse. Pt also notes being SOB while having pursed lips. Pt also c/o nasal congestion to which she requested her home medication of flonase. Pt interested in current BP which I relayed was 128/ 78. Pt very pleasant to speak with and had no other complaints. No acute events over night. Review of Systems General: Chills, Fatigue HEENT: No Head Aches; Sinus Congestion Pulmonary: Dyspnea, Cough Cardiovascular: No: Chest Pain Gastrointestinal: No: Nausea, Vomiting, Abdominal Pain Genitourinary: No Dysuria, No Hematuria Musculoskeletal: No: back pain, leg pain Neurological: Weakness; No: Confusion Focused Exam Lactate Level 01/12/21 11:36: Lactic Acid Level 0.75 Objective Exam Vital Signs Vital Signs Date Time Temp Pulse Resp B/P (MAP) Pulse Ox O2 Delivery O2 Flow Rate FiO2 01/13/21 09:00 92 32 121/ 94 Room Air 01/13/21 07:28 36.4 Capillary Refill : Less Than 3 Seconds General Appearance: Chronically ill, Obese HEENT: PERRL/EOMI, Moist Mucous Membranes Neck: Full Range of Motion, Normal Inspection, Supple Respiratory: Chest Non Tender, Lungs Clear, No Accessory Muscle Use, No Respiratory Distress, Crackles (basilar) Cardiovascular: Regular Rate, Rhythm, No Gallop, No Murmur, Normal Peripheral Pulses Gastrointestinal: Normal Bowel Sounds, Soft, Tenderness (LLQ), Other (Midline incision wound/ LANE drain in place) Rectal: Deferred Back: Normal Inspection, No Vertebral Tenderness Extremity: Normal Inspection, Normal Range of Motion, Non Tender, No Pedal Edema, Calf Tenderness (LLE) Neurologic/Psychiatric: Alert, Oriented x3, No Motor/Sensory Deficits, Normal Mood/Affect Skin: Normal Color, Warm/Dry Results/Procedures Lab Laboratory Tests 01/12/21 11:36 01/13/21 03:00 Patient resulted labs reviewed. Imaging: Reviewed Imaging Report Assessment/Plan Assessment and Plan Assess & Plan/Chief Complaint ASSESSMENT: Septic shock UTI- culture probable for klebsiella/ enterobacter MOUSTAPHA- BUN 34 & Cre 1.93 Abdominal midline incisional wound- culture showed pseudomonas growth Hypomagnesemia- CT- abdominal fluid collection vs. abscess Anemia- Hgb 9.7 PLAN: Continue abx PICC line placement Add nicotine patch and flonase Mg replacement Monitor Hgb and BUN/ Cre Appreciate Dr. Sae malin Appreciate GENNA Mack DO 01/14/21 0606: Subjective Subjective/Events-last exam CC: Septic shock with acute kidney injury HPI: This is a very complicated 75yoWF known to me from the last three months of hospital stay in inpatient rehab the last time before discharging to [facility] who presents with abdominal pain and UTI found to have acute kidney injury with Creatinine of 3.8 after IV fluids overnight it is 1.9, CT scan showed possible abscess vs Seroma and midline surgical site showed pseudomonas, she remains on Meropenem, she reports she wants her home medications restarted and I did add Flonase and Nicotine patch she wanted. Dr. Lynch was consulted. Review of Systems General: Fatigue Pulmonary: Dyspnea Objective Exam General Appearance: No Apparent Distress, WD/WN, Anxious, Chronically ill Respiratory: Lungs Clear, Decreased Breath Sounds Cardiovascular: Regular Rate, Rhythm Neurologic/Psychiatric: Alert, Oriented x3, No Motor/Sensory Deficits, Normal Mood/Affect Assessment/Plan Assessment and Plan Assess & Plan/Chief Complaint IV abx Monitor creat Lam cath Move to 4th floor Diagnosis/Problems Diagnosis/Problems (1) Septic shock Status: Acute (2) Acute renal failure (ARF) (3) UTI (urinary tract infection) (4) Abdominal pain Status: Acute Qualifiers: Qualified Codes: R10.30 - Lower abdominal pain, unspecified (5) Hyponatremia Supervisory-Addendum Brief Verification & Attestation Participated in pt care: history, MDM, physical Personally performed: exam, history, MDM, supervision of care Care discussed with: Medical Student Procedures: n/a Results interpretation: Verified all documentation Verification and Attestation of Medical Student E/M Service A medical student performed and documented this service in my presence. I reviewed and verified all information documented by the medical student and made modifications to such information, when appropriate. I personally performed the physical exam and medical decision making. Genna Martínez, Jan 14, 2021,06:04 LATISHA LEVI MED STUDENT Jan 13, 2021 10:51 GENNA MARTÍNEZ DO Jan 14, 2021 06:06
[2021-01-13] MEDS ORDERED: ALPRAZolam 0.25 MG (XANAX) TAB PO PRN (12:00)
[2021-01-13] MEDS ORDERED: CHLORASEPTIC SPRAY 177 ML LIQUID MM PRN (12:00)
[2021-01-13] MEDS ORDERED: MELATONIN 3 MG TABLET PO PRN (12:00)
[2021-01-13] MEDS ORDERED: SALIVA STIMULANT MOUTH SPRAY (BIOTENE) 1.5 OZ MM PRN (12:00)
[2021-01-13] MEDS ORDERED: ARTIFICAL TEARS 0.4 ML UNIT DOSE (REFRESH PLUS) OU PRN (12:45)
[2021-01-13] MEDS: SUCRALFATE 1 GM (CARAFATE) TAB PO SCH ×3 (12:54→20:17)
[2021-01-13] MEDS: NICOTINE 21 MG (NICODERM) PATCH TD SCH (12:55)
[2021-01-13] MEDS: fentaNYL PATCH 25 MCG (DURAGESIC) TD SCH (12:55)
[2021-01-13] MEDS: FLUTICASONE NASAL SPRAY (FLONASE) 16 GM BTL NS SCH (12:55)
[2021-01-13] MEDS ORDERED: MICONAZOLE 2% POWDER (DESENEX AF) 90 GM TOP PRN (13:00)
[2021-01-13] MEDS ORDERED: ONDANSETRON 4 MG (ZOFRAN) ORAL DISSOLVE TAB PO PRN (13:00)
[2021-01-13] MEDS: BETHANECHOL 25 MG (URECHOLINE) TAB PO SCH ×2 (17:00→20:17)
[2021-01-13] MEDS: FLUTICASONE/SALMETEROL 232-14 (AIRDUO RespiCLICK) IH SCH (18:24)
[2021-01-13] MEDS: DOCUSATE SODIUM 100 MG (COLACE) CAP PO SCH (20:06)
[2021-01-13] MEDS: polyethylene glycoL POWDER 17 GM (MIRALAX) PACK PO SCH (20:06)
[2021-01-13] MEDS: SENNA W/DOCUSATE (SENOKOT S) TABLET PO SCH (20:06)
[2021-01-13] MEDS: MONTELUKAST 10 MG (SINGULAIR) TAB PO SCH (20:17)
[2021-01-13] MEDS: meTOprolol TARTRATE 25 MG (LOPRESSOR) TABLET PO SCH (20:17)
[2021-01-13] MEDS: METOCLOPRAMIDE 5 MG (REGLAN) TAB PO SCH (20:17)
[2021-01-13] MEDS: ENOXAPARIN 40 MG/0.4 ML (LOVENOX) SYR SQ SCH (20:18)
[2021-01-13] MEDS: PANTOPRAZOLE 40 MG (PROTONIX) TAB PO SCH (20:18)
[2021-01-13] MEDS: DAKIN'S 1/4 STRENGTH (0.125%) 473 ML BTL TOP SCH (20:26)
[2021-01-13] MEDS: SODIUM CHLORIDE 1 GM TABLET PO SCH (21:34)
[2021-01-14] MEDS ORDERED: WATER (STERILE) FOR INJECTION 10 ML ONE (01:06)
[2021-01-14] MEDS ORDERED: MEROPENEM 500 MG VIAL (MERREM) IV ONE (01:06)
[2021-01-14] MEDS: MEROPENEM 500 MG/SWFI 10 ML IV PUSH IV SCH ×6 (01:56→17:15)
--- NOTE | 2021-01-14 02:45 | CONSULTATION REPORT ---
DATE OF SERVICE: 01/13/2021 ATTENDING PHYSICIAN: Dr. Jeronimo. HISTORY OF PRESENT ILLNESS: The patient is a 75-year-old female who is known to us and was seen with Dr. Lynch. She was found to have a large hypermetabolic mass involving the transverse colon on a PET scan. She was found to be hyponatremic and underwent a CT scan and was found to have a right lower lobe nodule as well as a right renal lesion, which was of indeterminate significance. She has had a colonoscopy before; however, it was greater than 30 years ago and then underwent a colonoscopy on 10/02/2020 where she was found to have a near obstructing transverse colonic lesion, which was biopsied and consistent with adenocarcinoma. On 10/31/2020, she underwent an attempted laparoscopic extended right hemicolectomy; however, this was converted to open. She then underwent an ileocolonic anastomosis. She did well postoperatively with adequate pain control and stable vital signs; however, did not develop any significant bowel function. After 7 days, a Gastrografin small bowel follow through was performed, which did not show any contrast within the colon within 10 hours. On 11/10/2020, she underwent reopening of the recent laparotomy, resection of the ileocolonic anastomosis as well as an end ileostomy and mucous fistula placement. She did well postoperatively and did not have any fever or chills and did have a small amount of ileostomy output and was transferred to inpatient rehabilitation. However, again developed abdominal distention and significant leukocytosis. On 11/15/2020, she underwent reopening of recent laparotomy incision revision of the end ileostomy as well as placement of abdominal wound VAC for complete wound dehiscence as well as an intraabdominal abscess. We then reopened a laparotomy and changed the wound VAC on 11/20/2020 as well as 11/28/2020 and later underwent reopening of the laparotomy incision as well as closure of the open abdomen with Strattice porcine biologic mesh that was 20 x 16 cm in size and placement of a wound VAC. She was then later admitted to inpatient rehabilitation and did well and then was later transferred to rehabilitation facility in [place]. She was seen last week in the office and doing well. However, the LANE drain did have a foul smell as well as purulent looking drainage, which was sent for culture and sensitivity and did come back as pseudomonas. She then presented to the Emergency Department yesterday with complaints of decreased blood pressure. They also reported a malfunctioning wound VAC and had been doing dressing changes. She did report some abdominal discomfort, but was otherwise having normal ostomy output with no other issues. CT scan of the abdomen and pelvis was performed, which showed a vertically oriented fluid collection, indeterminate dilated viscus associated with an anastomosis versus fluid collection such as an abscess. There was delayed post-oral contrast-enhanced scanning. There was also periumbilical subcutaneous nodularity which may have represented a small hematoma versus periumbilical metastatic disease. PAST MEDICAL HISTORY: Chronic obstructive pulmonary disease, hypertension, hypercholesterolemia, colon cancer. PAST SURGICAL HISTORY: Tonsillectomy, extended right hemicolectomy, laparotomy with ABThera VAC placement and later wound VAC. ALLERGIES: PENICILLIN, SYMBICORT, VERSED. MEDICATIONS: Albuterol sulfate nebulizer solution every 4 hours p.r.n., Xanax 0.25 mg q.4 hours p.r.n., amlodipine 10 mg daily, Zyrtec 10 mg daily, docusate 100 mg b.i.d., Lovenox 40 mg at bedtime, fentanyl 25 mcg patch every 72 hours, Flonase one spray each nostril daily, Trelegy Ellipta 1 puff daily, lisinopril 20 mg daily, melatonin 6 mg at bedtime p.r.n., Reglan 5 mg b.i.d., metoprolol 25 mg b.i.d., miconazole 5 gram powder every 12 hours p.r.n., Singulair 10 mg at bedtime, nicotine patch 14 mg daily, Zofran 4 mg q.6 hours p.r.n., oxycodone 5 mg q.3 hours p.r.n., Protonix 40 mg b.i.d., Phenol one spray 2 hours p.r.n., MiraLax 17 grams b.i.d., Systane eyedrops both eyes q.8 hours p.r.n., senna and docusate b.i.d., Carafate 1 gram q.i.d., Flomax 0.4 mg daily and Anoro Ellipta 1 puff daily, bethanechol 25 mg q.i.d. SOCIAL HISTORY: Previous for smoke for 55 pack years, quit 2019. Rare for alcohol. FAMILY HISTORY: Mother, hypertension. Father, hypertension. Siblings, hypertension. Paternal grandmother, colon cancer. REVIEW OF SYSTEMS: This is a well-nourished female in no acute distress. She is not experiencing any shortness of breath or difficulty breathing. No chest pain, palpitations or diaphoresis. She does report occasional episodes of nausea, but no vomiting. She does report some abdominal discomfort. She reports occasional episodes of heartburn. No diarrhea or constipation. No red blood per rectum. No dark tarry stools. No fever or chills. No recent inadvertent weight loss. All other review of systems negative. PHYSICAL EXAMINATION: CHEST: Clear. Good breath sounds bilaterally. HEART: Regular, no murmurs. EXTREMITIES: No lower extremity edema. Negative Homans sign. HEENT: No scleral icterus. NECK: No cervical lymphadenopathy. ABDOMEN: Soft, nondistended. There is a midline abdominal wound from a previous incision does have good granulation tissue with some mild purulent drainage from the edges noted. This is tender to palpation. There is a right ileostomy that is pink and moist with liquid stool in the ostomy bag. There is also a left mucous ostomy that is pink and moist and functioning appropriately. SKIN: Warm, dry and pink. NEUROLOGIC: Awake, alert and oriented x3. ASSESSMENT AND PLAN: A 75-year-old female with history of adenocarcinoma, who is status post extended right hemicolectomy with placement of a right ileostomy as well as left mucous ostomy. She was also found to be hypotensive in the ER and was treated with fluids. She also was found to have a white count of 11,[address] drain fluid was cultured and consistent with pseudomonas. She is currently on meropenem for antibiotic coverage. At this time, we will continue with her current antibiotic regimen as well as dressing changes twice daily with wet-to-dry Dakin solution to the wound. We will also continue with pain as well as nausea medication and continue to monitor her progress. Job ID: [id number] DocumentID: [id number] Dictated Date: 01/13/2021 18:45:46 Train Operator Date: 01/13/2021 21:47:30 Dictated By: ED GUO
[2021-01-14] MEDS: SODIUM BICARBONATE 8.4% VIAL 150 MEQ in D5W 1000 ML IV SOLUTION 1,000 ML IV SCH ×3 (03:32→21:13)
[2021-01-14 05:14] LABS: BASOPHILS % (AUTO) 1 % (0-10); EOSINOPHILS # (AUTO) 0.4 10^3/uL (0.0-0.3); EOSINOPHILS % (AUTO) 6 % (0-10); HEMATOCRIT 27 % (35-52); HEMOGLOBIN 9.3 g/dL (11.5-16.0); LYMPHOCYTES # (AUTO) 1.7 10^3/uL (1.0-4.0); LYMPHOCYTES % (AUTO) 25 % (12-44); MEAN CORPUSCULAR HEMOGLOBIN 29 pg (25-34); MEAN CORPUSCULAR HGB CONC 34 g/dL (32-36); MEAN CORPUSCULAR VOLUME 85 fL (80-99); MEAN PLATELET VOLUME 8.5 fL (9.0-12.2); MONOCYTES # (AUTO) 0.8 10^3/uL (0.0-1.0); MONOCYTES % (AUTO) 11 % (0-12); NEUTROPHILS % (AUTO) 57 % (42-75); PLATELET COUNT 299 10^3/uL (130-400); WHITE BLOOD COUNT 7.1 10^3/uL (4.3-11.0)
[2021-01-14 05:24] LABS: CHLORIDE 100 MMOL/L (98-107); POTASSIUM 3.4 MMOL/L (3.6-5.0); SODIUM 133 MMOL/L (135-145)
[2021-01-14 05:25] LABS: CALCIUM 7.5 MG/DL (8.5-10.1)
[2021-01-14] MEDS: SUCRALFATE 1 GM (CARAFATE) TAB PO SCH ×4 (05:25→20:23)
[2021-01-14] MEDS: BETHANECHOL 25 MG (URECHOLINE) TAB PO SCH ×4 (05:25→20:23)
[2021-01-14 05:26] LABS: GLUCOSE 109 MG/DL (70-105)
[2021-01-14 05:27] LABS: CARBON DIOXIDE 23 MMOL/L (21-32)
[2021-01-14 05:29] LABS: PHOSPHORUS 2.5 MG/DL (2.3-4.7)
[2021-01-14 05:30] LABS: CREATININE SERUM 0.77 MG/DL (0.60-1.30); GFR ESTIMATED > 60
[2021-01-14 05:31] LABS: BUN/CREATININE RATIO 17
[2021-01-14 05:32] LABS: MAGNESIUM 1.5 MG/DL (1.6-2.4)
[2021-01-14] MEDS: NICOTINE 21 MG (NICODERM) PATCH TD SCH (08:17)
[2021-01-14] MEDS: TAMSULOSIN 0.4 MG (FLOMAX) CAP PO SCH (08:18)
[2021-01-14] MEDS: meTOprolol TARTRATE 25 MG (LOPRESSOR) TABLET PO SCH ×2 (08:18→20:23)
[2021-01-14] MEDS: PANTOPRAZOLE 40 MG (PROTONIX) TAB PO SCH ×2 (08:18→20:23)
[2021-01-14] MEDS: NICOTINE PATCH REMOVAL TP SCH (08:18)
[2021-01-14] MEDS: polyethylene glycoL POWDER 17 GM (MIRALAX) PACK PO SCH ×2 (08:18→20:24)
[2021-01-14] MEDS: lisINopril 20 MG (PRINIVIL) TABLET PO SCH (08:18)
[2021-01-14] MEDS: DOCUSATE SODIUM 100 MG (COLACE) CAP PO SCH ×2 (08:18→20:23)
[2021-01-14] MEDS: METOCLOPRAMIDE 5 MG (REGLAN) TAB PO SCH ×2 (08:18→20:23)
[2021-01-14] MEDS: SENNA W/DOCUSATE (SENOKOT S) TABLET PO SCH ×2 (08:19→20:23)
[2021-01-14] MEDS: FLUTICASONE NASAL SPRAY (FLONASE) 16 GM BTL NS SCH (08:19)
[2021-01-14] MEDS: LORATADINE (CLARITIN) 10 MG TAB PO SCH (08:19)
[2021-01-14] MEDS: UMECLIDINIUM BROMIDE (INCRUSE ELLIPTA) 7'S IH SCH (08:29)
[2021-01-14] MEDS: FLUTICASONE/SALMETEROL 232-14 (AIRDUO RespiCLICK) IH SCH ×2 (08:29→18:18)
[2021-01-14] MEDS ORDERED: NON-FORMULARY MEDICATION 1 EA EA (Fluticasone Propionate (Flonase Allergy Relief) 1 SPRAY) NSEACH SCH (09:00)
[2021-01-14] MEDS ORDERED: NON-FORMULARY MEDICATION 1 EA EA (Umeclidinium Brm/Vilanterol Tr (Anoro Ellipta 62.5-25 Mc IH SCH (09:00)
[2021-01-14] MEDS: SODIUM CHLORIDE 1 GM TABLET PO SCH ×2 (09:31→20:24)
[2021-01-14] MEDS: DAKIN'S 1/4 STRENGTH (0.125%) 473 ML BTL TOP SCH ×2 (09:31→21:31)
[2021-01-14] MEDS ORDERED: KCL 20 MEQ TAB (K-DUR) PO NR (10:48)
--- NOTE | 2021-01-14 11:28 | Progress Note - Hospitalist ---
LATISHA LEVI MED STUDENT 01/14/21 1128: Subjective HPI/CC On Admission Date Seen by Provider: Jan 14, 2021 Time Seen by Provider: 08:20 Bere Pinto is a 75 year old female with history of colon cancer s/p resection and colostomy with complication requiring subsequent ileostomy who presented with low blood pressure and was admitted with septic shock. She has been at [facility]. She is having chills. She reports some abdominal pain. She thinks her ostomy output may have increased. She denies any blood in her ostomy. She reports nausea. She denies shortness of breath and cough. She denies dysuria, frequency, and urgency. Subjective/Events-last exam Pt awake and eating breakfast upon entry. Pt is in much better spirits and more talkative than yesterday. Pt notes feeling much better including her breathing. Pt still maintains pursed lips when breathing. Pt no longer has chills and has a decent appetite. No other complaints made by pt. No acute events over night. Review of Systems General: No Chills, No Malaise HEENT: No Head Aches; Sinus Congestion, Post Nasal Drip Pulmonary: Dyspnea, Cough Cardiovascular: No: Chest Pain, Palpitations Gastrointestinal: Nausea; No: Vomiting Genitourinary: No Dysuria, No Hematuria Musculoskeletal: No: shoulder pain, back pain, leg pain Neurological: Weakness; No: Confusion Focused Exam Lactate Level 01/12/21 11:36: Lactic Acid Level 0.75 Objective Exam Vital Signs Vital Signs Date Time Temp Pulse Resp B/P (MAP) Pulse Ox O2 Delivery O2 Flow Rate FiO2 01/14/21 08:32 97 Room Air 01/14/21 08:00 35.4 102 18 150/64 (92) Capillary Refill : Less Than 3 Seconds General Appearance: No Apparent Distress, WD/WN HEENT: PERRL/EOMI, Moist Mucous Membranes Neck: Normal Inspection, Supple Respiratory: Chest Non Tender, Lungs Clear, No Accessory Muscle Use, No Respiratory Distress, Crackles, Wheezing Cardiovascular: Regular Rate, Rhythm, No Edema, No Gallop, No Murmur Gastrointestinal: Normal Bowel Sounds, Non Tender, Soft Rectal: Deferred Back: Normal Inspection, No Vertebral Tenderness Extremity: Normal Inspection, Non Tender, No Calf Tenderness, No Pedal Edema Neurologic/Psychiatric: Alert, Oriented x3, No Motor/Sensory Deficits, Normal Mood/Affect Results/Procedures Lab Laboratory Tests 01/14/21 05:00 Patient resulted labs reviewed. Imaging: Reviewed Imaging Report Assessment/Plan Assessment and Plan Assess & Plan/Chief Complaint ASSESSMENT: Septic shock (Resolved) UTI- culture probable for klebsiella/ enterobacter MOUSTAPHA- BUN 13 & Cre 0.77 Abdominal midline incisional wound- culture showed pseudomonas growth Hypomagnesemia- 1.5 CT- abdominal fluid collection vs. abscess Anemia- Hgb 9.3 PLAN: Continue abx PICC line placed Mg replacement Monitor Hgb and BUN/ Cre Appreciate Dr. Sae malin Appreciate Dr. Lazara malin PT/OT GENNA MARTÍNEZ DO 01/15/21 0556: Subjective Subjective/Events-last exam Pt doing much better Regular diet will be initiated Physical therapy and occupational therapy will be ordered Magnesium of 1.5 Hgb 9.3 Creatinine now normal at 0.77 Potassium 3.4 will be managed by 20 MEQ PO BID Review of Systems General: Fatigue Pulmonary: Dyspnea Objective Exam General Appearance: No Apparent Distress, WD/WN, Chronically ill Respiratory: Lungs Clear Cardiovascular: Regular Rate, Rhythm Neurologic/Psychiatric: Alert, Oriented x3, No Motor/Sensory Deficits, Normal Mood/Affect Assessment/Plan Assessment and Plan Assess & Plan/Chief Complaint Monitor closely Replace potassium Supervisory-Addendum Brief Verification & Attestation Participated in pt care: history, MDM, physical Personally performed: exam, history, MDM, supervision of care Care discussed with: Medical Student Procedures: n/a Results interpretation: Verified all documentation Verification and Attestation of Medical Student E/M Service A medical student performed and documented this service in my presence. I reviewed and verified all information documented by the medical student and made modifications to such information, when appropriate. I personally performed the physical exam and medical decision making. Genna Martínez, Jan 15, 2021,05:55 LATISHA LEVI MED STUDENT Jan 14, 2021 11:28 GENNA MARTÍNEZ DO Jan 15, 2021 05:56
--- NOTE | 2021-01-14 11:32 | Occupational Therapy Eval ---
OT Evaluation-General/PLF Medical Diagnosis Admission Date Jan 12, 2021 at 14:00 Medical Diagnosis: septic shock, UTI, acute renal failure Onset Date: Jan 12, 2021 Therapy Diagnosis Therapy Diagnosis: weakness, decreased ADL status Precautions Precautions/Isolations: Fall Prevention, Standard Precautions Referral Physician: Ari Hernandez Reason: Evaluation/Treatment Medical History Pertinent Medical History: Arthritis, COPD, HTN Additional Medical History pneumonia, colon cancer s/p resection and colostomy with complication requiring subsequent ileostomy. Current History presents from [facility] with lower BP and admit with septic shock. Reviewed History: Yes Social History Home: Residential ADL-Prior Level of Function SCALE: Activities may be completed with or without assistive devices. 9-Rllpektfkt-undlmvp completes the activity by him/herself with no assistance from a helper. 5-Set-up or Clean-up Assistance-helper sets up or cleans up; patient completes activity. [place] assists only prior to or following the activity. 4-Supervision or Touching Assistance-helper provides verbal cues and/or touching/steadying and/or contact guard assistance as patient completes activity. Assistance may be provided throughout the activity or intermittently. 3-Partial/Moderate Assistance-helper does LESS THAN HALF the effort. [place] lifts, holds or supports trunk or limbs, but provides less than half the effort. 2-Substantial/Maximal Assistance-helper does MORE THAN HALF the effort. [place] lifts or holds trunk or limbs and provides more than half the effort. 7-Vdhgtefge-lnmjef does ALL the effort. Patient does none of the effort to com plete the activity. Or, the assistance of 2 or more helpers is required for the patient to complete the activity. If activity was not attempted, code reason: 7-Patient Refused. 9-Not Applicable-not attempted and the patient did not perform the activity before the current illness, exacerbation or injury. 10-Not Attempted due to Environmental Limitations-(lack of equipment, weather restraints, etc.). 88-Not Attempted due to Medical Conditions or Safety Concerns. ADL PLOF Comments Pt reports requiring assistance at [facility], she has someone with her when she showers (unclear how much assistance pt requires), and some assistance with dressing. Pt indicates she is able to don/doff slip on shoes independently, and she completes toileting independently (able to empty ostomy bags herself) Self Care: Needed Some Help Functional Cognition: Independent DME/Equipment Comments Walker OT Current Status Subjective Pt agreeable to OT evaluation and tx. Pt did not verbalize any pain. Mental Status/Objective Attachments: Lam Catheter, IV Current Glasses/Contacts: Yes Dentures/Partials: Yes Hand Dominance: Right Upper Extremity ROM WFL Upper Extremity Sensation Pt denies tingling/numbness Upper Extremity Strength grossly 3+/5 BUEs ADL-Treatment Eating (QC): 6 (Per pt report, no difficulty cutting food and opening containers.) Oral Hygiene (QC): 7 (Pt declined as she already completed this AM) Shower/Bathe Self (QC): 7 (Pt declined as she already cleaned up this AM) On/Off Footwear (QC): 6 (Gripper socks slidding off of pt's feet, Pt able to reach down to her ankles and pull gripper socks up.) Other Treatments Pt laying in bed, transferred supine to sit EOB, then stood at FWW with SBA. Pt performed functional mobility in hallway with CGA with FWW and assist with IV pole, pt returned to her room and transferred to recliner. Pt combed her hair with set up assistance, declined oral care and showering as she already completed this AM. Pt able to reach her feet in order to pull socks up the rest of the way due to them slipping down. Pt participated in UE screen. Post tx, pt seated in recliner, call light in reach and all needs met, nurse present. Education OT Patient Education: Correct positioning, Modified ADL techniques, Progress toward Goal/Update tx plan, Purpose of tx/functional activities, Rehab process Teaching Recipient: Patient Teaching Methods: Discussion Response to Teaching: Verbalize Understanding OT Panel Beater Goals [facility] Goals Time Frame: Jan 24, 2021 Eating (QC): 6 Oral Hygiene (QC): 6 Toileting Hygiene (QC): 6 Shower/Bathe Self (QC): 4 Upper Body Dressing (QC): 5 Lower Body Dressing (QC): 5 On/Off Footwear (QC): 6 Additional Goals: 1-Demonstrate ADL Tasks, 2-Verbalize Understanding, 3- ImproveStrength/Palak 1=Demonstrate adherence to instructed precautions during ADL tasks. 2=Patient will verbalize/demonstrate understanding of assistive devices/modifications for ADL. 3=Patient will improve strength/tolerance for activity to enable patient to perform ADL's. OT Education/Plan Problem List/Assessment Assessment: Decreased Activ Tolerance, Decreased UE Strength, Impaired I ADL's, Impaired Self-Care Skills Pt would benefit from skilled OT services in order to increase BUE strength and functional endurance, and to increase safety and independence with ADLS and functional mobility to maximize LOF for safe return to [facility]. Discharge Recommendations Plan/Recommendations: Continue POC Therapy Discharge Recommendati: Post Acute OT Treatment Plan/Plan of Care Patient would benefit from OT for education, treatment and training to promote independence in ADL's, mobility, safety and/or upper extremity function for ADL's. Plan of Care: ADL Retraining, Functional Mobility, UE Funct Exercise/Act Treatment Duration: Jan 24, 2021 Frequency: 5 times per week Estimated Hrs Per Day: .25 hour per day Rehab Potential: Good Time/GCodes Start Time: 11:05 Stop Time: 11:20 Total Time Billed (hr/min): 15 Billed Treatment Time 1, ESSIE FERREIRA OT Jan 14, 2021 11:32
--- NOTE | 2021-01-14 13:14 | Physical Therapy Evaluation ---
PT Evaluation-General Medical Diagnosis Admission Date Jan 12, 2021 at 14:00 Medical Diagnosis: septic shock, UTI, acute renal failure Onset Date: Jan 12, 2021 Therapy Diagnosis Therapy Diagnosis: debility/weakness Precautions Precautions/Isolations: Fall Prevention, Standard Precautions Referral Physician: Ari Reason for Referral: Evaluation/Treatment Medical History Pertinent Medical History: Arthritis, COPD, HTN Current History ER secondary to SOA (bowel resection) Reviewed History: Yes Social History Home: Shelter Entry Into Home: Level Entry Prior Prior Level of Function SCALE: Activities may be completed with or without assistive devices. 6-Cffdaldjhk-ghdizsy completes the activity by him/herself with no assistance from a helper. 5-Set-up or Clean-up Assistance-helper sets up or cleans up; patient completes activity. [employer] assists only prior to or following the activity. 4-Supervision or Touching Assistance-helper provides verbal cues and/or touching/steadying and/or contact guard assistance as patient completes activity. Assistance may be provided throughout the activity or intermittently. 3-Partial/Moderate Assistance-helper does LESS THAN HALF the effort. [employer] lifts, holds or supports trunk or limbs, but provides less than half the effort. 2-Substantial/Maximal Assistance-helper does MORE THAN HALF the effort. [employer] lifts or holds trunk or limbs and provides more than half the effort. 3-Vgufjlwfr-trvgyb does ALL the effort. Patient does none of the effort to complete the activity. Or, the assistance of 2 or more helpers is required for the patient to complete the activity. If activity was not attempted, code reason: 7-Patient Refused. 9-Not Applicable-not attempted and the patient did not perform the activity bef ore the current illness, exacerbation or injury. 10-Not Attempted due to Environmental Limitations-(lack of equipment, weather r estraints, etc.). 88-Not Attempted due to Medical Conditions or Safety Concerns. Bed Mobility: 5 Transfers (B,C,W/C): 5 Gait: 5 Stairs: 5 Indoor Mobility (Ambulation): Independent Stairs: Not Applicalbe Prior Devices Use: Walker PT Evaluation-Current Subjective Patient agrees to PT. Patient has no pain complaints. Pt/Family Goals [place] at home with mobility. Objective Patient Orientation: Normal For Age Attachments: IV ROM/Strength ROM Lower Extremities bilateral LE WFL Strength Lower Extremities 4-/5 grossly bilateral LE Integumentary/Posture Integumentary refer to nursing notes Bowel Incontinence: No Bladder Incontinence: No Posture WFL Neuromuscular (Tone, Coordination, Reflexes) grossly intact Sensory Vision: Functional Hearing: Functional Hand Dominance: Right Transfers Roll Left to Right (QC): 5 Sit to Lying (QC): 5 Lying to Sitting/Side of Bed(Q: 5 Sit to Stand (QC): 4 Chair/Msp-nn-Rxeua Xfer(QC): 4 Gait Does the Patient Walk?: Yes Mode of Locomotion: Walk Anticipated Mode of Locomotion: Walk Walk 10 feet (QC): 4 Walk 50 ft with 2 Turns(QC): 4 Distance: 120' Gait Assistive Device: FWW Comments/Gait Description CGA x1 utilized. Patient maintained steady gait and did not demonstrate difficulty with LOB. Patient did not require any rest breaks with ambulation. Balance Sitting Static: Normal Sitting Dynamic: Normal Standing Static: Normal Standing Dynamic: Normal Assessment/Needs Patient will benefit from PT to improve endurance, LE strength, and functional mobility. Rehab Potential: Fair PT Brake Liner Goals Skilled Nursing Goals PT Skilled Nursing Goals Time Frame: Jan 25, 2021 Roll Left & Right (QC): 5 Sit to Lying (QC): 5 Lying-Sitting on Side/Bed(QC): 5 Sit to Stand (QC): 5 Chair/Coa-fy-Bfque Xfer(QC): 5 Toilet Transfer (QC): 5 Does the Patient Walk: Yes Walk 10 feet (QC): 5 Walk 50ft with 2 Turns (QC): 5 Walk 150 ft (QC): 5 PT Plan Problem List Problem List: Activity Tolerance, Functional Strength, Safety, Balance Treatment/Plan Treatment Plan: Continue Plan of Care Treatment Plan: Education, Functional Activity [place], Functional Strength, Gait, Safety, Therapeutic Exercise Treatment Duration: Jan 25, 2021 Frequency: 6 times per week Estimated Hrs Per Day: .25 hour per day Patient and/or Family Agrees t: Yes Time/GCodes Time In: 1055 Time Out: 1105 Total Billed Treatment Time: 10 Total Billed Treatment 1 visit EVModC 10 min ROBERT SCHWAB PT Jan 14, 2021 13:14
--- NOTE | 2021-01-14 16:38 | Progress Note ---
Subjective Date Seen by a Provider: Jan 14, 2021 Time Seen by a Provider: 16:00 Subjective/Events-last exam doing better. tolerating diet. functional ileostomy. no fever/chills. Focused Exam Lactate Level 01/12/21 11:36: Lactic Acid Level 0.75 Objective Exam Vital Signs Date Time Temp Pulse Resp B/P (MAP) Pulse Ox O2 Delivery O2 Flow Rate FiO2 01/14/21 12:00 35.8 86 18 155/66 (95) 96 Room Air 01/14/21 08:32 97 Room Air 01/14/21 08:30 97 Room Air 01/14/21 08:00 35.4 102 18 150/64 (92) 96 Room Air 01/14/21 08:00 97 Room Air 01/14/21 04:00 36.2 87 19 129/58 (81) 91 Room Air 01/14/21 00:00 36.4 87 19 118/56 (76) 91 Room Air 01/13/21 20:04 36.6 01/13/21 20:00 95 Room Air 01/13/21 19:20 87 19 122/54 (76) 91 Room Air 01/13/21 19:10 93 19 129/54 (79) 94 Room Air 01/13/21 19:00 97 01/13/21 18:24 94 Room Air 01/13/21 17:00 93 20 154/71 (98) 95 Room Air I & O 01/14/21 07:00 Intake Total 4525 ml Output Total 3110 ml Balance 1415 ml Capillary Refill : Less Than 3 Seconds General Appearance: No Apparent Distress HEENT: PERRL/EOMI Neck: Full Range of Motion Respiratory: Decreased Breath Sounds, Wheezing Cardiovascular: Regular Rate, Rhythm Gastrointestinal: normal bowel sounds, non tender, soft Extremity: Normal Capillary Refill Neurologic/Psychiatric: Alert, Oriented x3 Skin: Normal Color Lymphatic: No Adenopathy Results Lab Laboratory Tests 01/14/21 05:00: White Blood Count 7.1, Red Blood Count 3.19L, Hemoglobin 9.3L, Hematocrit 27L, Mean Corpuscular Volume 85, Mean Corpuscular Hemoglobin 29, Mean Corpuscular Hemoglobin Concent 34, Red Cell Distribution Width 14.5, Platelet Count 299, Mean Platelet Volume 8.5L, Immature Granulocyte % (Auto) 1, Neutrophils (%) (Auto) 57, Lymphocytes (%) (Auto) 25, Monocytes (%) (Auto) 11, Eosinophils (%) (Auto) 6, Basophils (%) (Auto) 1, Neutrophils # (Auto) 4.0, Lymphocytes # (Auto) 1.7, Monocytes # (Auto) 0.8, Eosinophils # (Auto) 0.4H, Basophils # (Auto) 0.0, Immature Granulocyte # (Auto) 0.1, Sodium Level 133L, Potassium Level 3.4L, Chloride Level 100, Carbon Dioxide Level 23, Anion Gap 10, Blood Urea Nitrogen 13, Creatinine 0.77, Estimat Glomerular Filtration Rate > 60, BUN/Creatinine Ratio 17, Glucose Level 109H, Calcium Level 7.5L, Phosphorus Level 2.5, Magnesium Level 1.5L Microbiology 01/13/21 C. difficile GDH Antigen & Toxins - Final, Complete 01/12/21 MRSA Screen - Final, Complete MRSA not isolated 01/12/21 Gram Stain - Final, Complete 01/12/21 Wound Culture - Final, Complete Pseudomonas aeruginosa 01/12/21 Urine Culture - Final, Complete Klebsiella pneumoniae 01/12/21 Blood Culture - Preliminary, Resulted Staphylococcus epidermidis See Comments Assessment/Plan Assessment/Plan Assess & Plan/Chief Complaint urosepsis, open wound infxn. cont abx. ambulate. slowly advance diet. MICHAEL XIONG MD Jan 14, 2021 16:38
[2021-01-14] MEDS: KCL 20 MEQ TAB (K-DUR) PO SCH (17:15)
[2021-01-14] MEDS: ENOXAPARIN 40 MG/0.4 ML (LOVENOX) SYR SQ SCH (20:23)
[2021-01-14] MEDS: MONTELUKAST 10 MG (SINGULAIR) TAB PO SCH (20:23)
[2021-01-15] MEDS: MEROPENEM 500 MG/SWFI 10 ML IV PUSH IV SCH ×6 (01:56→17:19)
[2021-01-15] MEDS: BETHANECHOL 25 MG (URECHOLINE) TAB PO SCH ×4 (05:20→20:22)
[2021-01-15] MEDS: SUCRALFATE 1 GM (CARAFATE) TAB PO SCH ×4 (05:20→20:22)
[2021-01-15 05:27] LABS: BASOPHILS % (AUTO) 1 % (0-10); EOSINOPHILS # (AUTO) 0.5 10^3/uL (0.0-0.3); EOSINOPHILS % (AUTO) 8 % (0-10); HEMATOCRIT 28 % (35-52); HEMOGLOBIN 9.5 g/dL (11.5-16.0); LYMPHOCYTES # (AUTO) 1.9 10^3/uL (1.0-4.0); LYMPHOCYTES % (AUTO) 28 % (12-44); MEAN CORPUSCULAR HEMOGLOBIN 29 pg (25-34); MEAN CORPUSCULAR HGB CONC 34 g/dL (32-36); MEAN CORPUSCULAR VOLUME 86 fL (80-99); MEAN PLATELET VOLUME 8.5 fL (9.0-12.2); MONOCYTES # (AUTO) 0.7 10^3/uL (0.0-1.0); MONOCYTES % (AUTO) 11 % (0-12); NEUTROPHILS # (AUTO) 3.5 10^3/uL (1.8-7.8); NEUTROPHILS % (AUTO) 52 % (42-75); PLATELET COUNT 306 10^3/uL (130-400); WHITE BLOOD COUNT 6.7 10^3/uL (4.3-11.0)
[2021-01-15 05:35] LABS: ALBUMIN 2.7 GM/DL (3.2-4.5)
[2021-01-15 05:36] LABS: CHLORIDE 92 MMOL/L (98-107); POTASSIUM 3.3 MMOL/L (3.6-5.0); SODIUM 132 MMOL/L (135-145)
[2021-01-15 05:37] LABS: CALCIUM 7.9 MG/DL (8.5-10.1)
[2021-01-15 05:38] LABS: GLUCOSE 117 MG/DL (70-105); TOTAL PROTEIN 5.5 GM/DL (6.4-8.2)
[2021-01-15 05:39] LABS: CARBON DIOXIDE 29 MMOL/L (21-32)
[2021-01-15 05:40] LABS: BILIRUBIN,TOTAL 0.3 MG/DL (0.1-1.0)
[2021-01-15 05:42] LABS: ALKALINE PHOSPHATASE 83 U/L (40-136); CREATININE SERUM 0.71 MG/DL (0.60-1.30); GFR ESTIMATED > 60
[2021-01-15 05:43] LABS: BUN/CREATININE RATIO 10
[2021-01-15 05:45] LABS: ALANINE AMINOTRANSFERASE 11 U/L (0-55)
[2021-01-15 05:53] LABS: MAGNESIUM 1.1 MG/DL (1.6-2.4)
[2021-01-15] MEDS: MAGNESIUM 1 GM/100 ML IVPB 100 ML IV SCH ×2 (06:38→08:03)
[2021-01-15] MEDS: FLUTICASONE/SALMETEROL 232-14 (AIRDUO RespiCLICK) IH SCH ×2 (07:13→18:37)
[2021-01-15] MEDS: UMECLIDINIUM BROMIDE (INCRUSE ELLIPTA) 7'S IH SCH (07:13)
[2021-01-15] MEDS: NICOTINE PATCH REMOVAL TP SCH (08:02)
[2021-01-15] MEDS: PANTOPRAZOLE 40 MG (PROTONIX) TAB PO SCH ×2 (08:02→20:22)
[2021-01-15] MEDS: meTOprolol TARTRATE 25 MG (LOPRESSOR) TABLET PO SCH ×2 (08:02→20:22)
[2021-01-15] MEDS: METOCLOPRAMIDE 5 MG (REGLAN) TAB PO SCH ×2 (08:02→20:22)
[2021-01-15] MEDS: TAMSULOSIN 0.4 MG (FLOMAX) CAP PO SCH (08:02)
[2021-01-15] MEDS: LORATADINE (CLARITIN) 10 MG TAB PO SCH (08:02)
[2021-01-15] MEDS: lisINopril 20 MG (PRINIVIL) TABLET PO SCH (08:02)
[2021-01-15] MEDS: DOCUSATE SODIUM 100 MG (COLACE) CAP PO SCH ×2 (08:02→20:23)
[2021-01-15] MEDS: SENNA W/DOCUSATE (SENOKOT S) TABLET PO SCH ×2 (08:02→20:22)
[2021-01-15] MEDS: NICOTINE 21 MG (NICODERM) PATCH TD SCH (08:02)
[2021-01-15] MEDS: KCL 20 MEQ TAB (K-DUR) PO SCH ×2 (08:02→08:10)
[2021-01-15] MEDS: FLUTICASONE NASAL SPRAY (FLONASE) 16 GM BTL NS SCH (08:03)
[2021-01-15] MEDS: polyethylene glycoL POWDER 17 GM (MIRALAX) PACK PO SCH ×2 (08:04→20:23)
[2021-01-15] MEDS: SODIUM BICARBONATE 8.4% VIAL 150 MEQ in D5W 1000 ML IV SOLUTION 1,000 ML IV SCH ×2 (08:07→20:26)
[2021-01-15] MEDS: DAKIN'S 1/4 STRENGTH (0.125%) 473 ML BTL TOP SCH ×2 (08:07→20:24)
[2021-01-15] MEDS: SODIUM CHLORIDE 1 GM TABLET PO SCH ×2 (08:10→20:22)
--- NOTE | 2021-01-15 10:39 | Progress Note ---
Subjective Date Seen by a Provider: Jan 15, 2021 Time Seen by a Provider: 10:30 Subjective/Events-last exam doing well. tolerating diet. no nasea/vomiting, no fever chills. Focused Exam Lactate Level 01/12/21 11:36: Lactic Acid Level 0.75 Objective Exam Vital Signs Date Time Temp Pulse Resp B/P (MAP) Pulse Ox O2 Delivery O2 Flow Rate FiO2 01/15/21 08:40 36.7 76 18 189/82 (117) 92 Nasal Cannula 2.00 01/15/21 08:00 Room Air 01/15/21 07:20 95 Nasal Cannula 1.50 01/15/21 07:13 93 Nasal Cannula 1.50 01/15/21 03:54 36.6 73 16 165/70 (101) 95 Nasal Cannula 2.00 01/15/21 03:47 93 Nasal Cannula 2.00 01/14/21 23:50 36.6 75 17 137/63 (87) 90 Room Air 01/14/21 20:16 76 134/64 (87) 01/14/21 20:00 97 Room Air 01/14/21 19:00 36.8 81 20 167/73 (104) 94 Room Air 01/14/21 18:18 92 Room Air 01/14/21 15:25 36.8 81 18 18/92 (68) 92 Room Air 01/14/21 12:00 35.8 86 18 155/66 (95) 96 Room Air I & O 01/15/21 07:00 Intake Total 3605 ml Output Total 3230 ml Balance 375 ml Capillary Refill : Less Than 3 Seconds General Appearance: No Apparent Distress HEENT: PERRL/EOMI Neck: Full Range of Motion Respiratory: Chest Non Tender, Rhonci, Wheezing Cardiovascular: Regular Rate, Rhythm Gastrointestinal: normal bowel sounds, non tender, soft Extremity: Normal Capillary Refill Neurologic/Psychiatric: Alert, Oriented x3 Skin: Normal Color Lymphatic: No Adenopathy Results Lab Laboratory Tests 01/15/21 05:15: White Blood Count 6.7, Red Blood Count 3.25L, Hemoglobin 9.5L, Hematocrit 28L, Mean Corpuscular Volume 86, Mean Corpuscular Hemoglobin 29, Mean Corpuscular Hemoglobin Concent 34, Red Cell Distribution Width 14.3, Platelet Count 306, Mean Platelet Volume 8.5L, Immature Granulocyte % (Auto) 1, Neutrophils (%) (Auto) 52, Lymphocytes (%) (Auto) 28, Monocytes (%) (Auto) 11, Eosinophils (%) (Auto) 8, Basophils (%) (Auto) 1, Neutrophils # (Auto) 3.5, Lymphocytes # (Auto) 1.9, Monocytes # (Auto) 0.7, Eosinophils # (Auto) 0.5H, Basophils # (Auto) 0.0, Immature Granulocyte # (Auto) 0.1, Sodium Level 132L, Potassium Level 3.3L, Chloride Level 92L, Carbon Dioxide Level 29, Anion Gap 11, Blood Urea Nitrogen 7, Creatinine 0.71, Estimat Glomerular Filtration Rate > 60, BUN/Creatinine Ratio 10, Glucose Level 117H, Calcium Level 7.9L, Corrected Calcium 8.9, Magnesium Level 1.1*L, Total Bilirubin 0.3, Aspartate Amino Transf (AST/SGOT) 9, Alanine Aminotransferase (ALT/SGPT) 11, Alkaline Phosphatase 83, Total Protein 5.5L, Albumin 2.7L Microbiology 01/13/21 C. difficile GDH Antigen & Toxins - Final, Complete 01/12/21 MRSA Screen - Final, Complete MRSA not isolated 01/12/21 Gram Stain - Final, Complete 01/12/21 Wound Culture - Final, Complete Pseudomonas aeruginosa 01/12/21 Urine Culture - Final, Complete Klebsiella pneumoniae 01/12/21 Blood Culture - Final, Complete Staphylococcus epidermidis See Comments Assessment/Plan Assessment/Plan Assess & Plan/Chief Complaint urosepsis, open wound infxn. cont abx. ambulate. slowly advance diet. MICHAEL XIONG MD Jan 15, 2021 10:39
[2021-01-15] MEDS ORDERED: KCL 10 MEQ TAB (MICRO K) PO NR (12:00)
--- NOTE | 2021-01-15 12:03 | Progress Note - Hospitalist ---
LATISHA LEVI MED STUDENT 01/15/21 1203: Subjective HPI/CC On Admission Date Seen by Provider: Jan 15, 2021 Time Seen by Provider: 08:45 Bere Pinto is a 75 year old female with history of colon cancer s/p resection and colostomy with complication requiring subsequent ileostomy who presented with low blood pressure and was admitted with septic shock. She has been at [facility]. She is having chills. She reports some abdominal pain. She thinks her ostomy output may have increased. She denies any blood in her ostomy. She reports nausea. She denies shortness of breath and cough. She denies dysuria, frequency, and urgency. Subjective/Events-last exam Pt awake and lying in bed upon entry. Pt is doing well and denies complaints. Continues to have sinus congestion when asked. Pt would also like a different form of potassium as she is unable to swallow the large size of the pill. Pt is pleasant to converse with. No acute events over night. Review of Systems General: No Chills, No Fatigue HEENT: No Head Aches; Sinus Congestion Pulmonary: Dyspnea, Cough Cardiovascular: No: Chest Pain, Palpitations Gastrointestinal: No: Nausea, Vomiting, Abdominal Pain Genitourinary: No Dysuria, No Hematuria Musculoskeletal: No: back pain, leg pain Neurological: Weakness; No: Numbness Objective Exam Vital Signs Vital Signs Date Time Temp Pulse Resp B/P (MAP) Pulse Ox O2 Delivery O2 Flow Rate FiO2 01/15/21 08:40 36.7 76 18 189/82 (117) 92 Nasal Cannula 2.00 Capillary Refill : Less Than 3 Seconds General Appearance: No Apparent Distress, WD/WN HEENT: PERRL/EOMI, Moist Mucous Membranes Neck: Normal Inspection, Supple Respiratory: Chest Non Tender, Lungs Clear, No Accessory Muscle Use, No Respiratory Distress, Crackles Cardiovascular: Regular Rate, Rhythm, No Edema, No Gallop, No Murmur Gastrointestinal: Normal Bowel Sounds, Non Tender, Soft, Other (midline incisional wound) Rectal: Deferred Back: No Vertebral Tenderness Extremity: Normal Inspection, Normal Range of Motion, Non Tender, No Calf Tenderness, No Pedal Edema Neurologic/Psychiatric: Alert, Oriented x3, No Motor/Sensory Deficits, Normal Mood/Affect Skin: Normal Color, Warm/Dry Results/Procedures Lab Laboratory Tests 01/15/21 05:15 Patient resulted labs reviewed. Imaging: Reviewed Imaging Report Assessment/Plan Assessment and Plan Assess & Plan/Chief Complaint ASSESSMENT: Septic shock (Resolved) UTI- culture probable for klebsiella/ enterobacter MOUSTAPHA- BUN 7 & Cre 0.71 Abdominal midline incisional wound- culture showed pseudomonas growth Hypomagnesemia- 1.1 CT- abdominal fluid collection vs. abscess Anemia- Hgb 9.5 PLAN: Change PO potassium formulation and replace Replace magnesium Midline line placed Mg replacement Monitor Hgb and BUN/ Cre Appreciate Dr. Sae malin - inquire about wound care Appreciate Dr. Lazara malin PT/OT GENNA MARTÍNEZ DO 01/16/21 0535: Subjective Subjective/Events-last exam Pt doing pretty well Hgb 9.5 Potassium of 3.3 Will change it to the liquid form so it is easier to swallow Magnesium of 1.1 will be given 2 grams of IV magnesium Dr. Lynch will decide what he wants to do with the midline incision Review of Systems General: Fatigue, Malaise Objective Exam General Appearance: No Apparent Distress, WD/WN Respiratory: Lungs Clear Cardiovascular: Regular Rate, Rhythm Neurologic/Psychiatric: Alert, Oriented x3, No Motor/Sensory Deficits, Normal Mood/Affect Assessment/Plan Assessment and Plan Assess & Plan/Chief Complaint Monitor O2 Potassium replacement Supervisory-Addendum Brief Verification & Attestation Participated in pt care: history, MDM, physical Personally performed: exam, history, MDM, supervision of care Care discussed with: Medical Student Procedures: n/a Results interpretation: Verified all documentation Verification and Attestation of Medical Student E/M Service A medical student performed and documented this service in my presence. I reviewed and verified all information documented by the medical student and made modifications to such information, when appropriate. I personally performed the physical exam and medical decision making. Genna Martínez, Jan 16, 2021,05:34 LATISHA LEVI MED STUDENT Jan 15, 2021 12:03 GENNA MARTÍNEZ DO Jan 16, 2021 05:35
[2021-01-15] MEDS: POTASSIUM CL 10MEQ/50ML IVPB 50 ML IV SCH ×3 (13:17→15:19)
[2021-01-15] MEDS: KCL 10 MEQ TAB (MICRO K) PO SCH ×2 (13:23→20:23)
--- NOTE | 2021-01-15 13:35 | Occupational Ther Daily Note ---
OT Current Status-Daily Note Subjective Pt alert, lying in bed. Pt agrees to therapy. No c/o pain at this time. Pt states that at the CA she only got out of bed to go to the bathroom. Mental Status/Objective Patient Orientation: Person, Place, Time, Situation Attachments: Colostomy/Ileostomy, Drains, Lam Catheter, IV ADL-Treatment Pt declined bathing, stating that she was too cold. Therapy Code Descriptions/Definitions Functional [place] Measure: 0=Not Assessed/NA 4=Minimal Assistance 1=Total Assistance 5=Supervision or Setup 2=Maximal Assistance 6=Modified [place] 3=Moderate Assistance 7=Complete IndependenceSCALE: Activities may be completed with or without assistive devices. 4-Nfxqbwxgrv-oiiqfex completes the activity by him/herself with no assistance from a helper. 5-Set-up or Clean-up Assistance-helper sets up or cleans up; patient completes activity. [place] assists only prior to or following the activity. 4-Supervision or Touching Assistance-helper provides verbal cues and/or touching/steadying and/or contact guard assistance as patient completes activity. Assistance may be provided throughout the activity or intermittently. 3-Partial/Moderate Assistance-helper does LESS THAN HALF the effort. [place] lifts, holds or supports trunk or limbs, but provides less than half the effort. 2-Substantial/Maximal Assistance-helper does MORE THAN HALF the effort. [place] lifts or holds trunk or limbs and provides more than half the effort. 3-Fqqwefvxv-avtqyr does ALL the effort. Patient does none of the effort to complete the activity. Or, the assistance of 2 or more helpers is required for the patient to complete the activity. If activity was not attempted, code reason: 7-Patient Refused. 9-Not Applicable-not attempted and the patient did not perform the activity before the current illness, exacerbation or injury. 10-Not Attempted due to Environmental Limitations-(lack of equipment, weather restraints, etc.). 88-Not Attempted due to Medical Conditions or Safety Concerns. Other Treatment Supine to EOB, independent. Pt ambulated out of room and around 4th floor sharp. Pt was SBA for ambulating with FWW. Pt then completed B UE strengthening exercises 1 set 15 reps. After therapy, pt sitting in recliner with call light/phone in reach. Nrsg in room. OT Musical Engineer Goals Mcc Goals Time Frame: Jan 24, 2021 Eating (QC): 6 Oral Hygiene (QC): 6 Toileting Hygiene (QC): 6 Shower/Bathe Self (QC): 4 Upper Body Dressing (QC): 5 Lower Body Dressing (QC): 5 On/Off Footwear (QC): 6 Additional Goals: 1-Demonstrate ADL Tasks, 2-Verbalize Understanding, 3-Imp roveStrength/Palak 1=Demonstrate adherence to instructed precautions during ADL tasks. 2=Patient will verbalize/demonstrate understanding of assistive devices/modifications for ADL. 3=Patient will improve strength/tolerance for activity to enable patient to perform ADL's. OT Education/Plan Problem List/Assessment Assessment: Decreased Activ Tolerance, Decreased UE Strength Pt would benefit from skilled OT services in order to increase BUE strength and functional endurance, and to increase safety and independence with ADLS and functional mobility to maximize LOF for safe return to [facility]. Discharge Recommendations Plan/Recommendations: Continue POC Treatment Plan/Plan of Care Patient would benefit from OT for education, treatment and training to promote independence in ADL's, mobility, safety and/or upper extremity function for ADL's. Plan of Care: ADL Retraining, Functional Mobility, UE Funct Exercise/Act Treatment Duration: Jan 24, 2021 Frequency: 5 times per week Estimated Hrs Per Day: .25 hour per day Rehab Potential: Fair Time/GCodes Start Time: 13:02 Stop Time: 13:25 Total Time Billed (hr/min): 23 Billed Treatment Time 1 visit-FA 2 (23 min) RAIZA BROWINNG Jan 15, 2021 13:35
--- NOTE | 2021-01-15 14:26 | Physical Therapy Daily Note ---
PT Daily Note-Current Subjective Pt laying Supine in bed upon arrival. Pt agrees to PT. Pain Location: No Pain Reported Mental Status Patient Orientation: Person, Place, Situation Attachments: Oxygen (1.5L), Drains, Lam Catheter, IV Transfers SCALE: Activities may be completed with or without assistive devices. 2-Cwbpsugqnc-xklxhmh completes the activity by him/herself with no assistance from a helper. 5-Set-up or Clean-up Assistance-helper sets up or cleans up; patient completes activity. [place] assists only prior to or following the activity. 4-Supervision or Touching Assistance-helper provides verbal cues and/or touching/steadying and/or contact guard assistance as patient completes activity. Assistance may be provided throughout the activity or intermittently. 3-Partial/Moderate Assistance-helper does LESS THAN HALF the effort. [place] lifts, holds or supports trunk or limbs, but provides less than half the effort. 2-Substantial/Maximal Assistance-helper does MORE THAN HALF the effort. [place] lifts or holds trunk or limbs and provides more than half the effort. 4-Pfznbsmef-nhyqdx does ALL the effort. Patient does none of the effort to complete the activity. Or, the assistance of 2 or more helpers is required for the patient to complete the activity. If activity was not attempted, code reason: 7-Patient Refused. 9-Not Applicable-not attempted and the patient did not perform the activity before the current illness, exacerbation or injury. 10-Not Attempted due to Environmental Limitations-(lack of equipment, weather restraints, etc.). 88-Not Attempted due to Medical Conditions or Safety Concerns. Lying to Sitting/Side of Bed(Q: 6 Sit to Stand (QC): 6 Weight Bearing Full Weight Bearing Full Weight Bearing Gait Training Does the Patient Walk?: Yes Distance: 200' Walk 10 feet (QC): 5 Walk 50 ft with 2 Turns(QC): 5 Walk 150 ft (QC): 5 Gait Persons Needed: 1 Gait Assistive Device: FWW Pt reports fatigue at end of ambulation. Wheelchair Training Does the Pt Use a Wheelchair?: No Exercises Seated Therapy Exercises: Ankle pumps, Long arc quads, Hip flexion, Kicking activity, Hip abd/add Seated Reps: 15 Treatments TF from bed to EOB to standing. Amb. in hallway on 4th Floor corridor. Pt reports fatigue and returns to room to rest in recliner. Pt completes Seated LE Ex in recliner then resting at end of tx with all needs met, call light in hand. Assessment Current Status: Good Progress Pt fatigues by end of tx and needs rest break to recover. PT Adobe Ball Mixer Goals Mcc Goals PT Adobe Ball Mixer Goals Time Frame: Jan 25, 2021 Roll Left & Right (QC): 5 Sit to Lying (QC): 5 Lying-Sitting on Side/Bed(QC): 5 Sit to Stand (QC): 5 Chair/Fqm-td-Rkcjp Xfer(QC): 5 Toilet Transfer (QC): 5 Does the Patient Walk: Yes Walk 10 feet (QC): 5 Walk 50ft with 2 Turns (QC): 5 Walk 150 ft (QC): 5 PT Plan Problem List Problem List: Activity Tolerance, Safety Treatment/Plan Treatment Plan: Continue Plan of Care Treatment Plan: Education, Functional Activity Palak, Functional Strength, Gait, Safety, Therapeutic Exercise Treatment Duration: Jan 25, 2021 Frequency: 6 times per week Estimated Hrs Per Day: .25 hour per day Patient and/or Family Agrees t: Yes Safety Risks/Education Patient Education: Gait Training, Correct Positioning, Safety Issues Teaching Recipient: Patient Teaching Methods: Discussion Response to Teaching: Verbalize Understanding Time/GCodes Time In: 1305 Time Out: 1325 Total Billed Treatment Time: 20 Total Billed Treatment 1, GT (20m) PHILIPP CHAMBERS PTA Jan 15, 2021 14:25
--- NOTE | 2021-01-15 17:48 | Progress Note ---
Subjective Date Seen by a Provider: Jan 15, 2021 Time Seen by a Provider: 17:00 Subjective/Events-last exam doing well. tolerating diet and functional ileostomy. no fever/chills. wet to dry dressing to open abd wound. Objective Exam Vital Signs Date Time Temp Pulse Resp B/P (MAP) Pulse Ox O2 Delivery O2 Flow Rate FiO2 01/15/21 15:51 36.6 76 18 176/76 (109) 96 Room Air 01/15/21 12:00 36.0 76 18 180/76 (110) 96 Nasal Cannula 2.00 01/15/21 08:40 36.7 76 18 189/82 (117) 92 Nasal Cannula 2.00 01/15/21 08:00 Room Air 01/15/21 07:20 95 Nasal Cannula 1.50 01/15/21 07:13 93 Nasal Cannula 1.50 01/15/21 03:54 36.6 73 16 165/70 (101) 95 Nasal Cannula 2.00 01/15/21 03:47 93 Nasal Cannula 2.00 01/14/21 23:50 36.6 75 17 137/63 (87) 90 Room Air 01/14/21 20:16 76 134/64 (87) 01/14/21 20:00 97 Room Air 01/14/21 19:00 36.8 81 20 167/73 (104) 94 Room Air 01/14/21 18:18 92 Room Air I & O 01/15/21 07:00 Intake Total 3605 ml Output Total 3230 ml Balance 375 ml Capillary Refill : Less Than 3 Seconds General Appearance: No Apparent Distress HEENT: PERRL/EOMI Respiratory: Chest Non Tender, Rhonci, Wheezing Cardiovascular: Regular Rate, Rhythm Gastrointestinal: normal bowel sounds, non tender, soft Extremity: Normal Capillary Refill Neurologic/Psychiatric: Alert, Oriented x3 Skin: Normal Color Lymphatic: No Adenopathy Results Lab Laboratory Tests 01/15/21 05:15: White Blood Count 6.7, Red Blood Count 3.25L, Hemoglobin 9.5L, Hematocrit 28L, Mean Corpuscular Volume 86, Mean Corpuscular Hemoglobin 29, Mean Corpuscular Hemoglobin Concent 34, Red Cell Distribution Width 14.3, Platelet Count 306, Mean Platelet Volume 8.5L, Immature Granulocyte % (Auto) 1, Neutrophils (%) (Auto) 52, Lymphocytes (%) (Auto) 28, Monocytes (%) (Auto) 11, Eosinophils (%) (Auto) 8, Basophils (%) (Auto) 1, Neutrophils # (Auto) 3.5, Lymphocytes # (Auto) 1.9, Monocytes # (Auto) 0.7, Eosinophils # (Auto) 0.5H, Basophils # (Auto) 0.0, Immature Granulocyte # (Auto) 0.1, Sodium Level 132L, Potassium Level 3.3L, Chloride Level 92L, Carbon Dioxide Level 29, Anion Gap 11, Blood Urea Nitrogen 7, Creatinine 0.71, Estimat Glomerular Filtration Rate > 60, BUN/Creatinine Ratio 10, Glucose Level 117H, Calcium Level 7.9L, Corrected Calcium 8.9, Magnesium Level 1.1*L, Total Bilirubin 0.3, Aspartate Amino Transf (AST/SGOT) 9, Alanine Aminotransferase (ALT/SGPT) 11, Alkaline Phosphatase 83, Total Protein 5.5L, Albumin 2.7L Microbiology 01/13/21 C. difficile GDH Antigen & Toxins - Final, Complete 01/12/21 MRSA Screen - Final, Complete MRSA not isolated 01/12/21 Gram Stain - Final, Complete 01/12/21 Wound Culture - Final, Complete Pseudomonas aeruginosa 01/12/21 Urine Culture - Final, Complete Klebsiella pneumoniae 01/12/21 Blood Culture - Final, Complete Staphylococcus epidermidis See Comments Assessment/Plan Assessment/Plan Assess & Plan/Chief Complaint urosepsis, open wound infxn. cont abx. do not suspect abscess however will keep current drain in place. ambulate. slowly advance diet. MICHAEL XIONG MD Jan 15, 2021 17:48
[2021-01-15] MEDS ORDERED: KCL 10 MEQ TAB (MICRO K) PO SCH (18:00)
[2021-01-15] MEDS: MONTELUKAST 10 MG (SINGULAIR) TAB PO SCH (20:22)
[2021-01-15] MEDS: ENOXAPARIN 40 MG/0.4 ML (LOVENOX) SYR SQ SCH (20:22)
[2021-01-16] MEDS: MEROPENEM 500 MG/SWFI 10 ML IV PUSH IV SCH ×4 (01:05→14:00)
[2021-01-16 05:19] LABS: BASOPHILS # (AUTO) 0.1 10^3/uL (0.0-0.1); BASOPHILS % (AUTO) 1 % (0-10); EOSINOPHILS # (AUTO) 0.7 10^3/uL (0.0-0.3); EOSINOPHILS % (AUTO) 9 % (0-10); HEMATOCRIT 30 % (35-52); LYMPHOCYTES # (AUTO) 1.9 10^3/uL (1.0-4.0); LYMPHOCYTES % (AUTO) 25 % (12-44); MEAN CORPUSCULAR HEMOGLOBIN 29 pg (25-34); MEAN CORPUSCULAR HGB CONC 34 g/dL (32-36); MEAN CORPUSCULAR VOLUME 87 fL (80-99); MEAN PLATELET VOLUME 8.6 fL (9.0-12.2); MONOCYTES # (AUTO) 0.7 10^3/uL (0.0-1.0); MONOCYTES % (AUTO) 10 % (0-12); NEUTROPHILS # (AUTO) 4.2 10^3/uL (1.8-7.8); NEUTROPHILS % (AUTO) 55 % (42-75); PLATELET COUNT 302 10^3/uL (130-400); WHITE BLOOD COUNT 7.5 10^3/uL (4.3-11.0)
[2021-01-16] MEDS: BETHANECHOL 25 MG (URECHOLINE) TAB PO SCH ×4 (05:19→20:22)
[2021-01-16] MEDS: SUCRALFATE 1 GM (CARAFATE) TAB PO SCH ×4 (05:19→20:22)
[2021-01-16] MEDS: meTOprolol TARTRATE 25 MG (LOPRESSOR) TABLET PO SCH ×2 (05:24→20:22)
[2021-01-16] MEDS: lisINopril 20 MG (PRINIVIL) TABLET PO SCH (05:24)
[2021-01-16 05:41] LABS: ALANINE AMINOTRANSFERASE 11 U/L (0-55); ALBUMIN 2.6 GM/DL (3.2-4.5); ALKALINE PHOSPHATASE 89 U/L (40-136); BILIRUBIN,TOTAL 0.3 MG/DL (0.1-1.0); BUN/CREATININE RATIO 7; CALCIUM 8.2 MG/DL (8.5-10.1); CARBON DIOXIDE 34 MMOL/L (21-32); CHLORIDE 87 MMOL/L (98-107); GFR ESTIMATED > 60; GLUCOSE 114 MG/DL (70-105); POTASSIUM 3.4 MMOL/L (3.6-5.0); SODIUM 132 MMOL/L (135-145); TOTAL PROTEIN 5.6 GM/DL (6.4-8.2)
[2021-01-16] MEDS: FLUTICASONE/SALMETEROL 232-14 (AIRDUO RespiCLICK) IH SCH ×2 (07:48→21:50)
[2021-01-16] MEDS: UMECLIDINIUM BROMIDE (INCRUSE ELLIPTA) 7'S IH SCH (07:48)
[2021-01-16] MEDS: DOCUSATE SODIUM 100 MG (COLACE) CAP PO SCH ×2 (08:30→20:22)
[2021-01-16] MEDS: NICOTINE PATCH REMOVAL TP SCH (08:30)
[2021-01-16] MEDS: NICOTINE 21 MG (NICODERM) PATCH TD SCH (08:30)
[2021-01-16] MEDS: LORATADINE (CLARITIN) 10 MG TAB PO SCH (08:30)
[2021-01-16] MEDS: PANTOPRAZOLE 40 MG (PROTONIX) TAB PO SCH ×2 (08:30→20:22)
[2021-01-16] MEDS: FLUTICASONE NASAL SPRAY (FLONASE) 16 GM BTL NS SCH (08:30)
[2021-01-16] MEDS: SODIUM CHLORIDE 1 GM TABLET PO SCH ×2 (08:30→20:22)
[2021-01-16] MEDS: METOCLOPRAMIDE 5 MG (REGLAN) TAB PO SCH ×2 (08:30→20:22)
[2021-01-16] MEDS: TAMSULOSIN 0.4 MG (FLOMAX) CAP PO SCH (08:30)
[2021-01-16] MEDS: polyethylene glycoL POWDER 17 GM (MIRALAX) PACK PO SCH ×2 (08:31→20:23)
[2021-01-16] MEDS: KCL 10 MEQ TAB (MICRO K) PO SCH ×3 (08:31→20:23)
[2021-01-16] MEDS: DAKIN'S 1/4 STRENGTH (0.125%) 473 ML BTL TOP SCH ×2 (08:31→20:24)
[2021-01-16] MEDS: SENNA W/DOCUSATE (SENOKOT S) TABLET PO SCH ×2 (08:31→20:22)
[2021-01-16] MEDS: SODIUM BICARBONATE 8.4% VIAL 150 MEQ in D5W 1000 ML IV SOLUTION 1,000 ML IV SCH ×2 (08:31→21:47)
--- NOTE | 2021-01-16 09:20 | Occupational Ther Daily Note ---
OT Current Status-Daily Note Subjective Pt alert, lying in bed. Pt agrees to therapy. No c/o pain. Mental Status/Objective Patient Orientation: Person, Place, Time, Situation Attachments: Colostomy/Ileostomy, Drains, Lam Catheter, IV, Oxygen (prn) ADL-Treatment Pt agrees to sponge bath. Independent supine <--> EOB using bedrails and HOB elevated. SBA for pt to ambulate to and from recliner/bed using FWW. After set up, pt able to complete sponge bath by self with SBA for safety. Pt has hospital gown for upper body clothing and declined to don underwear. Pt able to don/doff socks by self after set up. Pt took frequent recovery breaks due to SOA. After session, pt lying in bed with call light/phone in reach. All needs met in room. Therapy Code Descriptions/Definitions Functional [place] Measure: 0=Not Assessed/NA 4=Minimal Assistance 1=Total Assistance 5=Supervision or Setup 2=Maximal Assistance 6=Modified [place] 3=Moderate Assistance 7=Complete IndependenceSCALE: Activities may be completed with or without assistive devices. 3-Abaupytfoh-ouirzrj completes the activity by him/herself with no assistance from a helper. 5-Set-up or Clean-up Assistance-helper sets up or cleans up; patient completes activity. [place] assists only prior to or following the activity. 4-Supervision or Touching Assistance-helper provides verbal cues and/or touching/steadying and/or contact guard assistance as patient completes act ivity. Assistance may be provided throughout the activity or intermittently. 3-Partial/Moderate Assistance-helper does LESS THAN HALF the effort. [place] lifts, holds or supports trunk or limbs, but provides less than half the effort. 2-Substantial/Maximal Assistance-helper does MORE THAN HALF the effort. [place] lifts or holds trunk or limbs and provides more than half the effort. 9-Ycsaxqzow-sykzrp does ALL the effort. Patient does none of the effort to complete the activity. Or, the assistance of 2 or more helpers is required for the patient to complete the activity. If activity was not attempted, code reason: 7-Patient Refused. 9-Not Applicable-not attempted and the patient did not perform the activity before the current illness, exacerbation or injury. 10-Not Attempted due to Environmental Limitations-(lack of equipment, weather restraints, etc.). 88-Not Attempted due to Medical Conditions or Safety Concerns. Shower/Bathe Self (QC): 4 (SBA only) On/Off Footwear: 5 OT Chcf Goals Chcf Goals Time Frame: Jan 24, 2021 Eating (QC): 6 Oral Hygiene (QC): 6 Toileting Hygiene (QC): 6 Shower/Bathe Self (QC): 4 Upper Body Dressing (QC): 5 Lower Body Dressing (QC): 5 On/Off Footwear (QC): 6 Additional Goals: 1-Demonstrate ADL Tasks, 2-Verbalize Understanding, 3- ImproveStrength/Palak 1=Demonstrate adherence to instructed precautions during ADL tasks. 2=Patient will verbalize/demonstrate understanding of assistive devices/modifications for ADL. 3=Patient will improve strength/tolerance for activity to enable patient to perform ADL's. OT Education/Plan Problem List/Assessment Assessment: Decreased Activ Tolerance Pt would benefit from skilled OT services in order to increase BUE strength and functional endurance, and to increase safety and independence with ADLS and functional mobility to maximize LOF for safe return to [facility]. Discharge Recommendations Plan/Recommendations: Continue POC Treatment Plan/Plan of Care Patient would benefit from OT for education, treatment and training to promote independence in ADL's, mobility, safety and/or upper extremity function for ADL's. Plan of Care: ADL Retraining, Functional Mobility, UE Funct Exercise/Act Treatment Duration: Jan 24, 2021 Frequency: 5 times per week Estimated Hrs Per Day: .25 hour per day Rehab Potential: Fair Time/GCodes Start Time: 08:40 Stop Time: 09:16 Total Time Billed (hr/min): 36 Billed Treatment Time 1 visit-ADL 2 (36 min) RAIZA BROWNING Jan 16, 2021 09:20
--- NOTE | 2021-01-16 11:56 | Physical Therapy Daily Note ---
PT Daily Note-Current Subjective Patient reports no pain but reluctantly agrees to therapy. Patient notes feeling nauseous once ambulation begins. Appearance Patient left sitting upright, in chair with tray table nearby and call button within reach. Mental Status Patient Orientation: Normal For Age Attachments: Lam Catheter, IV Transfers SCALE: Activities may be completed with or without assistive devices. 1-Ponjdjhdpv-eblcbiw completes the activity by him/herself with no assistance from a helper. 5-Set-up or Clean-up Assistance-helper sets up or cleans up; patient completes activity. [place] assists only prior to or following the activity. 4-Supervision or Touching Assistance-helper provides verbal cues and/or touching/steadying and/or contact guard assistance as patient completes activity. Assistance may be provided throughout the activity or intermittently. 3-Partial/Moderate Assistance-helper does LESS THAN HALF the effort. [place] lifts, holds or supports trunk or limbs, but provides less than half the effort. 2-Substantial/Maximal Assistance-helper does MORE THAN HALF the effort. [place] lifts or holds trunk or limbs and provides more than half the effort. 1-Exdgrysnw-ppddpc does ALL the effort. Patient does none of the effort to complete the activity. Or, the assistance of 2 or more helpers is required for the patient to complete the activity. If activity was not attempted, code reason: 7-Patient Refused. 9-Not Applicable-not attempted and the patient did not perform the activity before the current illness, exacerbation or injury. 10-Not Attempted due to Environmental Limitations-(lack of equipment, weather restraints, etc.). 88-Not Attempted due to Medical Conditions or Safety Concerns. Roll Left & Right (QC): 6 Lying to Sitting/Side of Bed(Q: 6 Sit to Stand (QC): 4 Chair/Sex-le-Hbpul Xfer(QC): 4 SBA x1 utilized with sit <-> stand and chair transfer. Weight Bearing Full Weight Bearing Full Weight Bearing Gait Training Does the Patient Walk?: Yes Distance: 75' Walk 10 feet (QC): 4 Walk 50 ft with 2 Turns(QC): 4 Gait Assistive Device: FWW Utilized SBA x1. Patient reported feeling nauseous and wanted to go back to chair. Patient is steady with all ambulation. Assessment Current Status: Fair Progress Patient continues to self-limit; reluctant to leave bed. Will continue to progress patient strength, functional mobility, and endurance as patient allows. PT Receiving Team Member Goals Receiving Team Member Goals PT Receiving Team Member Goals Time Frame: Jan 25, 2021 Roll Left & Right (QC): 5 Sit to Lying (QC): 5 Lying-Sitting on Side/Bed(QC): 5 Sit to Stand (QC): 5 Chair/Kao-re-Tacwk Xfer(QC): 5 Toilet Transfer (QC): 5 Does the Patient Walk: Yes Walk 10 feet (QC): 5 Walk 50ft with 2 Turns (QC): 5 Walk 150 ft (QC): 5 PT Plan Problem List Problem List: Activity Tolerance, Safety Treatment/Plan Treatment Plan: Continue Plan of Care Treatment Plan: Education, Functional Activity [place]ak, Functional Strength, Gait, Safety, Therapeutic Exercise Treatment Duration: Jan 25, 2021 Frequency: 6 times per week Estimated Hrs Per Day: .25 hour per day Patient and/or Family Agrees t: Yes Safety Risks/Education Patient Education: Safety Issues Teaching Recipient: Patient Teaching Methods: Discussion Response to Teaching: Verbalize Understanding Educated patient on importance of getting out of bed to prevent risk of DVT and pneumonia. Time/GCodes Time In: 1041 Time Out: 1058 Total Billed Treatment Time: 17 Total Billed Treatment 1 visit: FA: 17' ROBERT SCHWAB PT Jan 16, 2021 11:55
--- NOTE | 2021-01-16 13:46 | Progress Note - Hospitalist ---
LATISHA LEVI MED STUDENT 01/16/21 1346: Subjective HPI/CC On Admission Date Seen by Provider: Jan 16, 2021 Time Seen by Provider: 08:45 Bere Pinto is a 75 year old female with history of colon cancer s/p resection and colostomy with complication requiring subsequent ileostomy who presented with low blood pressure and was admitted with septic shock. She has been at [facility]. She is having chills. She reports some abdominal pain. She thinks her ostomy output may have increased. She denies any blood in her ostomy. She reports nausea. She denies shortness of breath and cough. She denies dysuria, frequency, and urgency. Subjective/Events-last exam Pt awake and in bed upon entry. Pt is about to receive a sponge bath. Pt notes vomiting earlier in the morning due to phlegm gagging her. Pt still experiencing nausea and sinus congestion/ drainage. Pt denies any other complaint. No acute events over night. Review of Systems General: No Chills, No Fatigue HEENT: No Head Aches, No Dysphasia Pulmonary: Dyspnea, Cough Cardiovascular: No: Chest Pain, Palpitations Gastrointestinal: Nausea, Vomiting; No: Abdominal Pain Genitourinary: No Dysuria, No Hematuria Musculoskeletal: No: back pain, leg pain Neurological: No: Weakness, Confusion Objective Exam Vital Signs Vital Signs Date Time Temp Pulse Resp B/P (MAP) Pulse Ox O2 Delivery O2 Flow Rate FiO2 01/16/21 12:00 36.5 77 20 164/71 (102) 94 Room Air 01/15/21 12:00 2.00 Capillary Refill : Less Than 3 Seconds General Appearance: No Apparent Distress, WD/WN HEENT: PERRL/EOMI, Moist Mucous Membranes Neck: Normal Inspection, Supple Respiratory: Chest Non Tender, Lungs Clear, No Accessory Muscle Use, No Respiratory Distress, Crackles Cardiovascular: Regular Rate, Rhythm, No Edema, No Gallop, No Murmur Gastrointestinal: Normal Bowel Sounds, Non Tender, Soft Rectal: Deferred Back: Normal Inspection, No Vertebral Tenderness Extremity: Normal Inspection, Non Tender, No Calf Tenderness, No Pedal Edema Neurologic/Psychiatric: Alert, Oriented x3, No Motor/Sensory Deficits, Normal Mood/Affect Skin: Normal Color, Warm/Dry Results/Procedures Lab Laboratory Tests 01/16/21 05:02 Patient resulted labs reviewed. Imaging: Reviewed Imaging Report Assessment/Plan Assessment and Plan Assess & Plan/Chief Complaint ASSESSMENT: Septic shock (Resolved) UTI- culture probable for klebsiella/ enterobacter MOUSTAPHA- BUN 5 & Cre 0.70 Abdominal midline incisional wound- culture showed pseudomonas growth Hypomagnesemia- 1.2 CT- abdominal fluid collection vs. abscess Anemia- Hgb 10 PLAN: Change PO potassium formulation and replace Replace magnesium Midline line placed Monitor Hgb and BUN/ Cre Appreciate Dr. Sae malin - does not suspect abscess and will keep drain in place Appreciate Dr. Lazara malin PT/OT GENNA MARTÍNEZ DO 01/17/21 0538: Subjective Subjective/Events-last exam DC [place] today Labs reviewed No pain reported Review of Systems General: Fatigue Objective Exam General Appearance: No Apparent Distress, WD/WN, Chronically ill Respiratory: Lungs Clear Cardiovascular: Regular Rate, Rhythm Neurologic/Psychiatric: Alert, Oriented x3, No Motor/Sensory Deficits, Normal Mood/Affect Assessment/Plan Assessment and Plan Assess & Plan/Chief Complaint Monitor wounds DC [place] HLIVF Supervisory-Addendum Brief Verification & Attestation Participated in pt care: history, MDM, physical Personally performed: exam, history, MDM, supervision of care Care discussed with: Medical Student Procedures: n/a Results interpretation: Verified all documentation Verification and Attestation of Medical Student E/M Service A medical student performed and documented this service in my presence. I reviewed and verified all information documented by the medical student and made modifications to such information, when appropriate. I personally performed the physical exam and medical decision making. Genna Martínez Jan 17, 2021,05:37 LATISHA LEVI MED STUDENT Jan 16, 2021 13:46 GENNA MARTÍNEZ DO Jan 17, 2021 05:38
[2021-01-16] MEDS: MAGNESIUM 1 GM/100 ML IVPB 100 ML IV SCH ×3 (14:01→16:15)
[2021-01-16] MEDS: fentaNYL PATCH 25 MCG (DURAGESIC) TD SCH (14:17)
--- NOTE | 2021-01-16 15:21 | Progress Note ---
Progress Note Assessment/Plan Date Seen by Provider: Jan 16, 2021 Time Seen by Provider: 15:10 Assessment/Plan urosepsis, open wound infxn. cont abx. do not suspect abscess however will keep current drain in place. ambulate. Tolerating diet and fluids. Dressings intact, Denies pain currently. pt up to void. Afebrile, labs stable. Possible discharge back to long term tomorrow? Vitals Last set of Vitals Signs Vital Signs Date Time Temp Pulse Resp B/P (MAP) Pulse Ox O2 Delivery O2 Flow Rate FiO2 01/16/21 12:00 36.5 77 20 164/71 (102) 94 Room Air 01/15/21 12:00 2.00 I&O I&O Intake and Output 01/16/21 00:00 Intake Total 3860 ml Output Total 3985 ml Balance -125 ml Intake Oral 1480 ml IV Total 2380 ml Output Urine Total 2875 ml Stool Total 1100 ml Drainage Total 10 ml Labs Laboratory Tests 01/16/21 05:02: White Blood Count 7.5, Red Blood Count 3.41L, Hemoglobin 10.0L, Hematocrit 30L, Mean Corpuscular Volume 87, Mean Corpuscular Hemoglobin 29, Mean Corpuscular Hemoglobin Concent 34, Red Cell Distribution Width 14.0, Platelet Count 302, Mean Platelet Volume 8.6L, Immature Granulocyte % (Auto) 1, Neutrophils (%) (Auto) 55, Lymphocytes (%) (Auto) 25, Monocytes (%) (Auto) 10, Eosinophils (%) (Auto) 9, Basophils (%) (Auto) 1, Neutrophils # (Auto) 4.2, Lymphocytes # (Auto) 1.9, Monocytes # (Auto) 0.7, Eosinophils # (Auto) 0.7H, Basophils # (Auto) 0.1, Immature Granulocyte # (Auto) 0.1, Sodium Level 132L, Potassium Level 3.4L, Chloride Level 87L, Carbon Dioxide Level 34H, Anion Gap 11, Blood Urea Nitrogen 5L, Creatinine 0.70, Estimat Glomerular Filtration Rate > 60, BUN/Creatinine Ratio 7, Glucose Level 114H, Calcium Level 8.2L, Corrected Calcium 9.3, Magnesium Level 1.2L, Total Bilirubin 0.3, Aspartate Amino Transf (AST/SGOT) 15, Alanine Aminotransferase (ALT/SGPT) 11, Alkaline Phosphatase 89, Total Protein 5.6L, Albumin 2.6L Microbiology 01/13/21 C. difficile GDH Antigen & Toxins - Final, Complete 01/12/21 MRSA Screen - Final, Complete MRSA not isolated 01/12/21 Gram Stain - Final, Complete 01/12/21 Wound Culture - Final, Complete Pseudomonas aeruginosa 01/12/21 Urine Culture - Final, Complete Klebsiella pneumoniae 01/12/21 Blood Culture - Final, Complete Staphylococcus epidermidis See Comments CRISTAL BARBA [facility] Jan 16, 2021 15:21
[2021-01-16] MEDS: MONTELUKAST 10 MG (SINGULAIR) TAB PO SCH (20:22)
[2021-01-16] MEDS: ENOXAPARIN 40 MG/0.4 ML (LOVENOX) SYR SQ SCH (20:22)
[2021-01-16] MEDS: MEROPENEM 500 MG in WATER (STERILE) FOR INJECTION 10 ML IV SCH (21:46)
[2021-01-17] MEDS: SUCRALFATE 1 GM (CARAFATE) TAB PO SCH ×2 (05:33→12:25)
[2021-01-17] MEDS: BETHANECHOL 25 MG (URECHOLINE) TAB PO SCH ×2 (05:34→11:15)
[2021-01-17] MEDS: MEROPENEM 500 MG in WATER (STERILE) FOR INJECTION 10 ML IV SCH (05:34)
[2021-01-17 05:52] LABS: BASOPHILS % (AUTO) 0 % (0-10); EOSINOPHILS # (AUTO) 0.8 10^3/uL (0.0-0.3); EOSINOPHILS % (AUTO) 9 % (0-10); HEMATOCRIT 31 % (35-52); HEMOGLOBIN 10.3 g/dL (11.5-16.0); LYMPHOCYTES # (AUTO) 2.5 10^3/uL (1.0-4.0); LYMPHOCYTES % (AUTO) 27 % (12-44); MEAN CORPUSCULAR HEMOGLOBIN 29 pg (25-34); MEAN CORPUSCULAR HGB CONC 33 g/dL (32-36); MEAN CORPUSCULAR VOLUME 87 fL (80-99); MEAN PLATELET VOLUME 8.6 fL (9.0-12.2); MONOCYTES # (AUTO) 0.7 10^3/uL (0.0-1.0); MONOCYTES % (AUTO) 8 % (0-12); NEUTROPHILS % (AUTO) 55 % (42-75); PLATELET COUNT 303 10^3/uL (130-400); WHITE BLOOD COUNT 9.1 10^3/uL (4.3-11.0)
[2021-01-17 05:59] LABS: ALBUMIN 2.8 GM/DL (3.2-4.5); CHLORIDE 86 MMOL/L (98-107); POTASSIUM 3.5 MMOL/L (3.6-5.0); SODIUM 129 MMOL/L (135-145)
[2021-01-17 06:01] LABS: CALCIUM 8.6 MG/DL (8.5-10.1)
[2021-01-17 06:02] LABS: GLUCOSE 124 MG/DL (70-105); TOTAL PROTEIN 5.9 GM/DL (6.4-8.2)
[2021-01-17 06:03] LABS: BILIRUBIN,TOTAL 0.3 MG/DL (0.1-1.0); CARBON DIOXIDE 34 MMOL/L (21-32)
[2021-01-17 06:05] LABS: ALKALINE PHOSPHATASE 86 U/L (40-136); GFR ESTIMATED > 60
[2021-01-17 06:06] LABS: BUN/CREATININE RATIO 9
[2021-01-17 06:08] LABS: ALANINE AMINOTRANSFERASE 11 U/L (0-55)
[2021-01-17] MEDS: FLUTICASONE/SALMETEROL 232-14 (AIRDUO RespiCLICK) IH SCH (08:09)
[2021-01-17] MEDS: UMECLIDINIUM BROMIDE (INCRUSE ELLIPTA) 7'S IH SCH (08:09)
[2021-01-17] MEDS: NICOTINE 21 MG (NICODERM) PATCH TD SCH (09:02)
[2021-01-17] MEDS: NICOTINE PATCH REMOVAL TP SCH (09:02)
[2021-01-17] MEDS: SENNA W/DOCUSATE (SENOKOT S) TABLET PO SCH (09:04)
[2021-01-17] MEDS: PANTOPRAZOLE 40 MG (PROTONIX) TAB PO SCH (09:04)
[2021-01-17] MEDS: meTOprolol TARTRATE 25 MG (LOPRESSOR) TABLET PO SCH (09:04)
[2021-01-17] MEDS: LORATADINE (CLARITIN) 10 MG TAB PO SCH (09:04)
[2021-01-17] MEDS: DOCUSATE SODIUM 100 MG (COLACE) CAP PO SCH (09:04)
[2021-01-17] MEDS: TAMSULOSIN 0.4 MG (FLOMAX) CAP PO SCH (09:04)
[2021-01-17] MEDS: lisINopril 20 MG (PRINIVIL) TABLET PO SCH (09:04)
[2021-01-17] MEDS: METOCLOPRAMIDE 5 MG (REGLAN) TAB PO SCH (09:04)
[2021-01-17] MEDS: FLUTICASONE NASAL SPRAY (FLONASE) 16 GM BTL NS SCH (09:05)
[2021-01-17] MEDS: KCL 10 MEQ TAB (MICRO K) PO SCH ×2 (09:05→09:28)
[2021-01-17] MEDS: polyethylene glycoL POWDER 17 GM (MIRALAX) PACK PO SCH (09:06)
[2021-01-17] MEDS: SODIUM CHLORIDE 1 GM TABLET PO SCH (09:12)
[2021-01-17] MEDS: DAKIN'S 1/4 STRENGTH (0.125%) 473 ML BTL TOP SCH (09:13)
--- NOTE | 2021-01-17 11:22 | Physical Therapy Daily Note ---
PT Daily Note-Current Subjective Patient is agreeable to PT and notes she is ready for a walk. Patient does not report pain during treatment session. Appearance Patient is left seated upright, in chair with call button within reach and tray table positioned next to chair post tx. Mental Status Patient Orientation: Normal For Age Attachments: IV Transfers SCALE: Activities may be completed with or without assistive devices. 5-Uhacpcynnh-hjgocdj completes the activity by him/herself with no assistance from a helper. 5-Set-up or Clean-up Assistance-helper sets up or cleans up; patient completes activity. [place] assists only prior to or following the activity. 4-Supervision or Touching Assistance-helper provides verbal cues and/or touching /steadying and/or contact guard assistance as patient completes activity. Assistance may be provided throughout the activity or intermittently. 3-Partial/Moderate Assistance-helper does LESS THAN HALF the effort. [place] lifts, holds or supports trunk or limbs, but provides less than half the effort. 2-Substantial/Maximal Assistance-helper does MORE THAN HALF the effort. [place] lifts or holds trunk or limbs and provides more than half the effort. 3-Lwvsshqyr-tdyeha does ALL the effort. Patient does none of the effort to complete the activity. Or, the assistance of 2 or more helpers is required for the patient to complete the activity. If activity was not attempted, code reason: 7-Patient Refused. 9-Not Applicable-not attempted and the patient did not perform the activity before the current illness, exacerbation or injury. 10-Not Attempted due to Environmental Limitations-(lack of equipment, weather restraints, etc.). 88-Not Attempted due to Medical Conditions or Safety Concerns. Roll Left & Right (QC): 6 Lying to Sitting/Side of Bed(Q: 6 Sit to Stand (QC): 6 Chair/Iew-mt-Syyhp Xfer(QC): 6 Toilet Transfer (QC): 5 Patient was able to independently transfer, with no marked LOB. Weight Bearing Full Weight Bearing Full Weight Bearing Gait Training Does the Patient Walk?: Yes Distance: 500' Walk 10 feet (QC): 6 Walk 50 ft with 2 Turns(QC): 6 Walk 150 ft (QC): 6 Gait Assistive Device: FWW Patient is able to ambulate steadily with independence and at moderate speed. Assessment Current Status: Good Progress Patient demonstrated increased tolerance to ambulation and functional mobility. Continue to improve strength and mobility impairments to promote safe return to home. PT Usp Goals Tool And Die Technician Goals PT Usp Goals Time Frame: Jan 25, 2021 Roll Left & Right (QC): 5 Sit to Lying (QC): 5 Lying-Sitting on Side/Bed(QC): 5 Sit to Stand (QC): 5 Chair/Ghn-qt-Ggbiq Xfer(QC): 5 Toilet Transfer (QC): 5 Does the Patient Walk: Yes Walk 10 feet (QC): 5 Walk 50ft with 2 Turns (QC): 5 Walk 150 ft (QC): 5 PT Plan Problem List Problem List: Functional Strength Treatment/Plan Treatment Plan: Continue Plan of Care Treatment Plan: Education, Functional Activity [place], Functional Strength, Gait, Safety, Therapeutic Exercise Treatment Duration: Jan 25, 2021 Frequency: 6 times per week Estimated Hrs Per Day: .25 hour per day Patient and/or Family Agrees t: Yes Time/GCodes Time In: 1057 Time Out: 1112 Total Billed Treatment Time: 15 Total Billed Treatment 1 visit: FA: 15' ROBERT SCHWAB PT Jan 17, 2021 11:22
--- NOTE | 2021-01-17 11:43 | Occupational Ther Daily Note ---
OT Current Status-Daily Note Subjective Pt alert, sitting in recliner. Pt agrees to therapy. No c/o pain. Pt to discharge to [facility] today, per physician. Mental Status/Objective Patient Orientation: Person, Place, Time, Situation Attachments: Drains, IV ADL-Treatment Pt completed oral care standing at sink, independently. Pt ambulated to and from bathroom independently using FWW. Therapy Code Descriptions/Definitions Functional [place] Measure: 0=Not Assessed/NA 4=Minimal Assistance 1=Total Assistance 5=Supervision or Setup 2=Maximal Assistance 6=Modified [place] 3=Moderate Assistance 7=Complete IndependenceSCALE: Activities may be completed with or without assistive devices. 6-Gggkcpwuzm-leyszip completes the activity by him/herself with no assistance from a helper. 5-Set-up or Clean-up Assistance-helper sets up or cleans up; patient completes activity. [place] assists only prior to or following the activity. 4-Supervision or Touching Assistance-helper provides verbal cues and/or touching/steadying and/or contact guard assistance as patient completes activity. Assistance may be provided throughout the activity or intermittently. 3-Partial/Moderate Assistance-helper does LESS THAN HALF the effort. [place] lifts, holds or supports trunk or limbs, but provides less than half the effort. 2-Substantial/Maximal Assistance-helper does MORE THAN HALF the effort. [place] lifts or holds trunk or limbs and provides more than half the effort. 1-Raavdgtzg-mcdpwv does ALL the effort. Patient does none of the effort to complete the activity. Or, the assistance of 2 or more helpers is required for the patient to complete the activity. If activity was not attempted, code reason: 7-Patient Refused. 9-Not Applicable-not attempted and the patient did not perform the activity before the current illness, exacerbation or injury. 10-Not Attempted due to Environmental Limitations-(lack of equipment, weather restraints, etc.). 88-Not Attempted due to Medical Conditions or Safety Concerns. Oral Hygiene (QC): 6 On/Off Footwear: 6 Other Treatment Discussed with pt about B UE exercises and went through exercises. Pt educated on the benefits of completing exercises to increase and keep UE strength for daily functional tasks. After session, pt sitting in recliner with call light/phone in reach. All needs met in room. OT Surveying Technician Goals Care Home Goals Time Frame: Jan 24, 2021 Eating (QC): 6 Oral Hygiene (QC): 6 Toileting Hygiene (QC): 6 Shower/Bathe Self (QC): 4 Upper Body Dressing (QC): 5 Lower Body Dressing (QC): 5 On/Off Footwear (QC): 6 Additional Goals: 1-Demonstrate ADL Tasks, 2-Verbalize Understanding, 3- ImproveStrength/[place] 1=Demonstrate adherence to instructed precautions during ADL tasks. 2=Patient will verbalize/demonstrate understanding of assistive devices/modifications for ADL. 3=Patient will improve strength/tolerance for activity to enable patient to perform ADL's. OT Education/Plan Problem List/Assessment Assessment: Decreased Activ Tolerance, Decreased UE Strength Pt would benefit from skilled OT services in order to increase BUE strength and functional endurance, and to increase safety and independence with ADLS and functional mobility to maximize LOF for safe return to [facility]. Discharge Recommendations Plan/Recommendations: Continue POC Treatment Plan/Plan of Care Patient would benefit from OT for education, treatment and training to promote independence in ADL's, mobility, safety and/or upper extremity function for ADL's. Plan of Care: ADL Retraining, Functional Mobility, UE Funct Exercise/Act Treatment Duration: Jan 24, 2021 Frequency: 5 times per week Estimated Hrs Per Day: .25 hour per day Rehab Potential: Fair Time/GCodes Start Time: 11:21 Stop Time: 11:40 Total Time Billed (hr/min): 19 Billed Treatment Time 1 visit-FA 1 (19 min) RAIZA BROWNING Jan 17, 2021 11:43
[2021-01-17] MEDS ORDERED: ALPR0.254 PO (11:54)
[2021-01-17] MEDS ORDERED: FENT1PAT8 TD (11:54)
[2021-01-17] MEDS ORDERED: SODI473S7 TOP (11:54)
[2021-01-17] MEDS ORDERED: POTA20PA28 PO (11:54)
[2021-01-17] MEDS ORDERED: OXYC5TAB PO (11:54)
[2021-01-17] MEDS ORDERED: LEVO500T80 PO (11:56)
--- NOTE | 2021-01-17 11:56 | Discharge Inst-Skilled Nursing ---
Discharge Inst-Skilled NF Reconcile Patient Problems Problems Reviewed?: Yes Chief Complaint Bere Pinto is a 75 year old female with history of colon cancer s/p resection and colostomy with complication requiring subsequent ileostomy who presented with low blood pressure and was admitted with septic shock. She has been at [facility]. She is having chills. She reports some abdominal pain. She thinks her ostomy output may have increased. She denies any blood in her ostomy. She reports nausea. She denies shortness of breath and cough. She denies dysuria, frequency, and urgency. Patient Instructions Patient Problems: s/p septic shock Consult/Follow Up/Orders Skilled NF Admit to: [facility] Certification (SNF) I certify that SNF services are required to be given on an inpatient basis because of the above named patient's need for fci care on a continuing basis for the conditions(s) for which he/she was receiving inpatient hospital services prior to his/her transfer to the SNF. [facility] Facility Order: Nursing Services, Contract Processor-Evaluate & Treat, Physical Therapy-Evaluate & Treat, Speech Language-Evaluate & Treat Oxygen Delivery Method: Room Air Discharge Diet: No Restrictions Resuscitation Status: Full Code New & Resume Previous Orders New Medications: Levofloxacin (Levofloxacin) 500 Mg Tablet 500 MG PO DAILY for 7 Days, TAB Potassium Chloride (Potassium Chloride) 20 Meq Packet 20 MEQ PO DAILY for 30 Days, PACKET Sodium Hypochlorite ([place]akin's) 473 Ml Solution 1 ML TOP BID for 30 Days, EA Continued Medications: Albuterol Sulfate (Albuterol Sulfate) 2.5 Mg/0.5 Ml Vial.neb 2.5 MG INH Q4H PRN for SHORTNESS OF BREATH, EACH ALPRAZolam (ALPRAZolam) 0.25 Mg Tablet 0.25 MG PO Q4H PRN for ANXIETY, #30 TAB (This prescription has been renewed) Amlodipine Besylate (Amlodipine Besylate) 10 Mg Tablet 10 MG PO DAILY, TAB DO NOT GIVE IF BP <80/50 OR >180/110 AND P <50 OR >110 [Bethanechol 25MG] () 25 MG PO QIDACHS, TAB Cetirizine HCl (Cetirizine HCl) 10 Mg Tablet 10 MG PO DAILY, TAB Docusate Sodium (Docusate Sodium) 100 Mg Capsule 100 MG PO BID, CAP Enoxaparin Sodium (Enoxaparin Sodium) 40 Mg/0.4 Ml Syringe 40 MG SQ HS, SYRINGE Fentanyl (Fentanyl Patch 25 MCG) 1 Each Patch.td72 25 MCG TD Q72H, #5 PATCH (This prescription has been renewed) Fluticasone Propionate (Flonase Allergy Relief) 9.9 Ml [place].susp 1 SPRAY NSEACH DAILY, EACH Fluticasone/Umeclidin/Vilanter (Trelegy Ellipta 100-62.5-25) 1 Each Blst.w.dev 1 PUFF IH DAILY, INH Lisinopril (Lisinopril) 20 Mg Tablet 20 MG PO DAILY, TAB DO NOT GIVE IF BP <80/50 OR >180/100 AND P <50 OR >110 Melatonin (Melatonin) 3 Mg Tablet 6 MG PO HS PRN for INSOMNIA, TAB TAKES 2 (3MG) TABLETS Metoclopramide HCl (Metoclopramide HCl) 5 Mg Tablet 5 MG PO BID, TAB Metoprolol Tartrate (Metoprolol Tartrate) 25 Mg Tablet 25 MG PO BID, TAB DO NOT GIVE BP <80/50 OR >180/110 AND P <50 OR >110 Miconazole (Miconazole) 5 Gm Powder 1 APPLIC TOP Q12H PRN for RASH, EA Montelukast Sodium (Montelukast Sodium) 10 Mg Tablet 10 MG PO HS, TAB Nicotine (Nicotine Patch) 1 Each Patch.td24 14 MG TD DAILY, PATCH Ondansetron HCl (Ondansetron HCl) 4 Mg Tablet 4 MG PO Q6H PRN for NAUSEA/VOMITING-1ST LINE, TAB Oxycodone HCl (Oxycodone HCl) 5 Mg Tablet 5 MG PO Q3H PRN for PAIN-SEVERE (8-10), #30 TAB (This prescription has been renewed) Pantoprazole Sodium (Pantoprazole Sodium) 40 Mg Tablet.dr 40 MG PO BID, TAB Phenol (Sore Throat [place]) 177 Ml [place] 1 SPRAY MM Q2H PRN for Throat Irritation, SPRAY Polyethylene Glycol 3350 (Miralax) 17 Gm Powd.pack 17 GM PO BID, EACH Propylene Glycol/Peg 400 (Systane 0.3-0.4% Eye Drops) 15 Ml Drops 1 DROP OU Q8H PRN for DRY EYES, DROPS Saliva Stimulant Agents Comb.3 (Biotene Moisturizing Mouth) 1 Each [place] 1 EACH MM PRN PRN for DRY MOUTH, SPRAY Sennosides/Docusate Sodium (Sennosides-Docusate Sodium Tab) 1 Each Tablet 1 EACH PO BID, TAB Sodium Chloride (Sodium Chloride) 1 Gm Tab 1 GM PO BID, TAB Sucralfate (Sucralfate) 1 Gm Tablet 1 GM PO QIDACHS, TAB Tamsulosin HCl (Flomax) 0.4 Mg Cap 0.4 MG PO DAILY, CAP Umeclidinium Brm/Vilanterol Tr (Anoro Ellipta 62.5-25 Mcg INH) 1 Each Blst.w.dev 1 PUFF IH DAILY, INH Genna Chapman Jan 17, 2021 11:56 GENNA CHAPMAN DO Jan 17, 2021 11:56
--- NOTE | 2021-01-17 11:58 | Discharge Summary ---
Discharge Summary Hospital Course Was the Problem List Reviewed?: Yes Problems/Dx: (1) Septic shock Status: Acute (2) Acute renal failure (ARF) (3) UTI (urinary tract infection) (4) Abdominal pain Status: Acute Qualifiers: Qualified Codes: R10.30 - Lower abdominal pain, unspecified (5) Hyponatremia Hospital Course Date of Admission: Jan 12, 2021 at 14:00 Admission Diagnosis : Family Physician/Provider: Ryan Mcnulty MD Date of Discharge: 01/17/21 Discharge Diagnosis: Septic shock, MOUSTAPHA, UTI, abdominal wound, ileostomy Hospital Course: Patient had a lengthy course after admitted to ICU for septic shock from UTI and MOUSTAPHA. IVF given per protocol and was given empiric abx. Pseudomonas from wound Cx and UCx managed with IV abx. Overall she did well and MOUSTAPHA resolved and patient moved to 4th floor. PT OT ordered and was able to participate. Labs remained stable and she was deemed stable for DC with Levaquin and mosqueda DC with good voiding so she was transferred back to [facility]. Labs and Pending Lab Test: Laboratory Tests 01/17/21 05:44: White Blood Count 9.1, Red Blood Count 3.55L, Hemoglobin 10.3L, Hematocrit 31L, Mean Corpuscular Volume 87, Mean Corpuscular Hemoglobin 29, Mean Corpuscular Hemoglobin Concent 33, Red Cell Distribution Width 13.7, Platelet Count 303, Mean Platelet Volume 8.6L, Immature Granulocyte % (Auto) 1, Neutrophils (%) (Auto) 55, Lymphocytes (%) (Auto) 27, Monocytes (%) (Auto) 8, Eosinophils (%) (Auto) 9, Basophils (%) (Auto) 0, Neutrophils # (Auto) 5.0, Lymphocytes # (Auto) 2.5, Monocytes # (Auto) 0.7, Eosinophils # (Auto) 0.8H, Basophils # (Auto) 0.0, Immature Granulocyte # (Auto) 0.1, Sodium Level 129L, Potassium Level 3.5L, Chloride Level 86L, Carbon Dioxide Level 34H, Anion Gap 9, Blood Urea Nitrogen 6L, Creatinine 0.70, Estimat Glomerular Filtration Rate > 60, BUN/Creatinine Ratio 9, Glucose Level 124H, Calcium Level 8.6, Corrected Calcium 9.6, Total Bilirubin 0.3, Aspartate Amino Transf (AST/SGOT) 12, Alanine Aminotransferase (ALT/SGPT) 11, Alkaline Phosphatase 86, Total Protein 5.9L, Albumin 2.8L Microbiology 01/13/21 C. difficile GDH Antigen & Toxins - Final, Complete 01/12/21 MRSA Screen - Final, Complete MRSA not isolated 01/12/21 Gram Stain - Final, Complete 01/12/21 Wound Culture - Final, Complete Pseudomonas aeruginosa 01/12/21 Urine Culture - Final, Complete Klebsiella pneumoniae 01/12/21 Blood Culture - Final, Complete Staphylococcus epidermidis See Comments Home Meds Active Levofloxacin 500 Mg Tablet 500 Mg PO DAILY 7 Days Potassium Chloride 20 Meq Packet 20 Meq PO DAILY 30 Days [place]'s (Sodium Hypochlorite) 473 Ml Solution 1 Ml TOP BID 30 Days ALPRAZolam 0.25 Mg Tablet 0.25 Mg PO Q4H PRN Oxycodone HCl 5 Mg Tablet 5 Mg PO Q3H PRN Fentanyl Patch 25 MCG (Fentanyl) 1 Each Patch.td72 25 Mcg TD Q72H Reported Systane 0.3-0.4% Eye Drops (Propylene Glycol/Peg 400) 15 Ml Drops 1 Drop OU Q8H PRN Flomax (Tamsulosin HCl) 0.4 Mg Cap 0.4 Mg PO DAILY Enoxaparin Sodium 40 Mg/0.4 Ml Syringe 40 Mg SQ HS Docusate Sodium 100 Mg Capsule 100 Mg PO BID Biotene Moisturizing Mouth (Saliva Stimulant Agents Comb.3) 1 Each [place] 1 Each MM PRN PRN [Bethanechol 25MG] 25 Mg PO QIDACHS Amlodipine Besylate 10 Mg Tablet 10 Mg PO DAILY DO NOT GIVE IF BP <80/50 OR >180/110 AND P <50 OR >110 Albuterol Sulfate 2.5 Mg/0.5 Ml Vial.neb 2.5 Mg INH Q4H PRN Sucralfate 1 Gm Tablet 1 Gm PO QIDACHS Sodium Chloride 1 Gm Tab 1 Gm PO BID Sennosides-Docusate Sodium Tab (Sennosides/Docusate Sodium) 1 Each Tablet 1 Each PO BID Pantoprazole Sodium 40 Mg Tablet.dr 40 Mg PO BID Miralax (Polyethylene Glycol 3350) 17 Gm Powd.pack 17 Gm PO BID Sore Throat [place] (Phenol) 177 Ml [place] 1 [place] MM Q2H PRN Ondansetron HCl 4 Mg Tablet 4 Mg PO Q6H PRN Nicotine Patch (Nicotine) 1 Each Patch.td24 14 Mg TD DAILY Miconazole 5 Gm Powder 1 Applic TOP Q12H PRN Metoprolol Tartrate 25 Mg Tablet 25 Mg PO BID DO NOT GIVE BP <80/50 OR >180/110 AND P <50 OR >110 Metoclopramide HCl 5 Mg Tablet 5 Mg PO BID Melatonin 3 Mg Tablet 6 Mg PO HS PRN TAKES 2 (3MG) TABLETS Lisinopril 20 Mg Tablet 20 Mg PO DAILY DO NOT GIVE IF BP <80/50 OR >180/100 AND P <50 OR >110 Flonase Allergy Relief (Fluticasone Propionate) 9.9 Ml [place].susp 1 [place] NSEACH DAILY Trelegy Ellipta 100-62.5-25 (Fluticasone/Umeclidin/Vilanter) 1 Each Blst.w.dev 1 Puff IH DAILY Montelukast Sodium 10 Mg Tablet 10 Mg PO HS Cetirizine HCl 10 Mg Tablet 10 Mg PO DAILY Anoro Ellipta 62.5-25 Mcg INH (Umeclidinium Brm/Vilanterol Tr) 1 Each Blst.w.dev 1 Puff IH DAILY Assessment/Pt Instructions PCP Dr Ba 1 week at [facility] Discharge Planning: <30 minutes discharge planning Discharge Instructions Discharge Diet: No Restrictions Discharge Physical Examination Vital Signs Vital Signs Date Time Temp Pulse Resp B/P (MAP) Pulse Ox O2 Delivery O2 Flow Rate FiO2 01/17/21 11:47 36.6 88 20 163/69 (100) Room Air 01/17/21 08:10 90 01/15/21 12:00 2.00 General Appearance: No Apparent Distress, WD/WN, Chronically ill Respiratory: Lungs Clear Cardiovascular: Regular Rate, Rhythm Neurologic/Psychiatric: Alert, Oriented x3, No Motor/Sensory Deficits, Normal Mood/Affect Allergies: Coded Allergies: Penicillins (Verified Allergy, Unknown, Anaphylaxis, 09/26/20) budesonide (Verified Allergy, Unknown, Nausea, PT USES TRELEGY, 12/20/20) formoterol (Verified Allergy, Unknown, Nausea, 09/26/20) midazolam (Verified Allergy, Unknown, Anaphylaxis, 09/26/20) Discharge Summary Date of Admission Jan 12, 2021 at 14:00 Date of Discharge Discharge Date: Jan 17, 2021 Admission Diagnosis Septic shock Discharge Diagnosis Monitor wounds DC Mosqu[place] HLIVF (1) Septic shock Status: Acute (2) Acute renal failure (ARF) (3) UTI (urinary tract infection) (4) Abdominal pain Status: Acute Qualifiers: Qualified Codes: R10.30 - Lower abdominal pain, unspecified (5) Hyponatremia WILFREDO MARTÍNEZ DO Jan 17, 2021 11:58
--- NOTE | 2021-01-17 13:13 | Progress Note ---
Subjective Date Seen by a Provider: Jan 17, 2021 Time Seen by a Provider: 12:00 Subjective/Events-last exam doing ok. no fever/chills, tolerating diet and normal ileostomy output. labs normal. Objective Exam Vital Signs Date Time Temp Pulse Resp B/P (MAP) Pulse Ox O2 Delivery O2 Flow Rate FiO2 01/17/21 11:47 36.6 88 20 163/69 (100) Room Air 01/17/21 08:10 90 Room Air 01/17/21 08:00 Room Air 01/17/21 07:20 36.9 79 20 176/76 (109) 90 Room Air 01/17/21 04:03 36.6 79 18 137/83 (101) 91 Nasal Cannula 01/16/21 23:20 36.4 75 20 153/67 (95) 90 Room Air 01/16/21 21:55 90 Room Air 01/16/21 20:00 Room Air 01/16/21 19:59 36.7 76 17 160/77 (104) 90 Room Air 01/16/21 16:00 37.5 73 21 173/77 (109) 91 Room Air I & O 01/17/21 07:00 Intake Total 3200 ml Output Total 2350 ml Balance 850 ml Capillary Refill : Less Than 3 SecondsLess Than 3 Seconds General Appearance: No Apparent Distress HEENT: PERRL/EOMI Neck: Full Range of Motion Respiratory: Chest Non Tender, Lungs Clear Cardiovascular: Regular Rate, Rhythm Gastrointestinal: normal bowel sounds, non tender, soft Extremity: Normal Capillary Refill Neurologic/Psychiatric: Alert, Oriented x3 Skin: Normal Color Lymphatic: No Adenopathy Results Lab Laboratory Tests 01/17/21 05:44: White Blood Count 9.1, Red Blood Count 3.55L, Hemoglobin 10.3L, Hematocrit 31L, Mean Corpuscular Volume 87, Mean Corpuscular Hemoglobin 29, Mean Corpuscular Hemoglobin Concent 33, Red Cell Distribution Width 13.7, Platelet Count 303, Mean Platelet Volume 8.6L, Immature Granulocyte % (Auto) 1, Neutrophils (%) (Auto) 55, Lymphocytes (%) (Auto) 27, Monocytes (%) (Auto) 8, Eosinophils (%) (Auto) 9, Basophils (%) (Auto) 0, Neutrophils # (Auto) 5.0, Lymphocytes # (Auto) 2.5, Monocytes # (Auto) 0.7, Eosinophils # (Auto) 0.8H, Basophils # (Auto) 0.0, Immature Granulocyte # (Auto) 0.1, Sodium Level 129L, Potassium Level 3.5L, Chloride Level 86L, Carbon Dioxide Level 34H, Anion Gap 9, Blood Urea Nitrogen 6L, Creatinine 0.70, Estimat Glomerular Filtration Rate > 60, BUN/Creatinine Ratio 9, Glucose Level 124H, Calcium Level 8.6, Corrected Calcium 9.6, Total Bilirubin 0.3, Aspartate Amino Transf (AST/SGOT) 12, Alanine Aminotransferase (ALT/SGPT) 11, Alkaline Phosphatase 86, Total Protein 5.9L, Albumin 2.8L Microbiology 01/13/21 C. difficile GDH Antigen & Toxins - Final, Complete 01/12/21 MRSA Screen - Final, Complete MRSA not isolated 01/12/21 Gram Stain - Final, Complete 01/12/21 Wound Culture - Final, Complete Pseudomonas aeruginosa 01/12/21 Urine Culture - Final, Complete Klebsiella pneumoniae 01/12/21 Blood Culture - Final, Complete Staphylococcus epidermidis See Comments Assessment/Plan Assessment/Plan Assess & Plan/Chief Complaint urosepsis, open wound infxn. cont abx. do not suspect abscess however will keep current drain in place. ambulate. slowly advance diet. ok for rehab MICHAEL XIONG MD Jan 17, 2021 13:13
== END 2021-01-17 13:12 | DRG 871 ==
LOC: EDUNIT# 11:29 → ER 11:30 → ICU 14:00 → 4TH 01-13 20:45
PROVIDERS: ADMIT Internal Medicine; ATTEND Internal Medicine
DX: A41.9 Sepsis, unspecified organism (principal); R65.21 Severe sepsis with septic shock; N39.0 Urinary tract infection, site not specified; N17.9 Acute kidney failure, unspecified; E87.1 Hypo-osmolality and hyponatremia; Z88.0 Allergy status to penicillin; Z88.8 Allergy status to other drugs, medicaments and biological substances; Z87.891 Personal history of nicotine dependence; E78.00 Pure hypercholesterolemia, unspecified; I10 Essential (primary) hypertension; G89.29 Other chronic pain; M54.9 Dorsalgia, unspecified; R10.30 Lower abdominal pain, unspecified; D64.9 Anemia, unspecified; R19.7 Diarrhea, unspecified; Z20.822 Contact with and (suspected) exposure to COVID-19; E83.42 Hypomagnesemia; T81.89XA Other complications of procedures, not elsewhere classified, initial encounter; B96.5 Pseudomonas (aeruginosa) (mallei) (pseudomallei) as the cause of diseases classified elsewhere; J44.9 Chronic obstructive pulmonary disease, unspecified; Z85.038 Personal history of other malignant neoplasm of large intestine; Z90.49 Acquired absence of other specified parts of digestive tract
CPT/HCPCS: 36415; 36600; 51702; 71045; 74176; 80048; 80053; 81000; 82805; 82962; 83605; 83735; 84100; 84145; 85025; 85610; 85730; 87040; 87070; 87077; 87081; 87088; 87186; 87205; 87324; 87449; 87635; 94640; 94760; 96361; 96374; 96375

== ENCOUNTER 2021-01-20 02:38 | Inpatient (IN) | payer MEDICARE ==
[~2021-01-20] VITALS: Ht 157 cm; Wt 77.7 kg
[~2021-01-20 02:38] MED LIST changes: +ALB0.5V INH; +ALPR0.254 PO; +BETHANECHOL 25 MG PO; +DOCU100C37 PO; +ENOX40DI8 SQ; +FLUT9.9S NSEACH; +LEVO500T80 PO; +MICO5POW6 TOP; +NICO-587 TD; +ONDA-105 PO; +OXYC5TAB PO; +PHEN177S52 MM; +POLY17PO6 PO; +POTA20PA28 PO; +PROP15DR OU; +SENN1TAB33 PO; +SODI473S7 TOP
[2021-01-20] MEDS ORDERED: fentaNYL INJ 100 MCG/2 ML AMP IVP STA (03:05)
[2021-01-20 03:08] LABS: BASOPHILS # (AUTO) 0.1 10^3/uL (0.0-0.1); BASOPHILS % (AUTO) 1 % (0-10); EOSINOPHILS # (AUTO) 0.5 10^3/uL (0.0-0.3); EOSINOPHILS % (AUTO) 3 % (0-10); HEMATOCRIT 34 % (35-52); HEMOGLOBIN 11.3 g/dL (11.5-16.0); LYMPHOCYTES # (AUTO) 3.1 10^3/uL (1.0-4.0); LYMPHOCYTES % (AUTO) 17 % (12-44); MEAN CORPUSCULAR HEMOGLOBIN 29 pg (25-34); MEAN CORPUSCULAR HGB CONC 33 g/dL (32-36); MEAN CORPUSCULAR VOLUME 89 fL (80-99); MEAN PLATELET VOLUME 8.7 fL (9.0-12.2); MONOCYTES % (AUTO) 6 % (0-12); NEUTROPHILS # (AUTO) 13.6 10^3/uL (1.8-7.8); NEUTROPHILS % (AUTO) 73 % (42-75); PLATELET COUNT 397 10^3/uL (130-400); WHITE BLOOD COUNT 18.5 10^3/uL (4.3-11.0)
[2021-01-20] MEDS ORDERED: LACTATED RINGERS 1,000 ML IV ONE ×2 (03:15)
[2021-01-20] MEDS ORDERED: ONDANSETRON 4 MG/2 ML (SDV) Z0FRAN IVP ONE (03:15)
[2021-01-20 03:19] LABS: ALBUMIN 3.2 GM/DL (3.2-4.5); POTASSIUM 4.6 MMOL/L (3.6-5.0)
[2021-01-20 03:20] LABS: CALCIUM 9.3 MG/DL (8.5-10.1)
[2021-01-20 03:21] LABS: TOTAL PROTEIN 6.6 GM/DL (6.4-8.2)
[2021-01-20 03:23] LABS: BILIRUBIN,TOTAL 0.4 MG/DL (0.1-1.0)
[2021-01-20 03:25] LABS: CREATININE SERUM 0.91 MG/DL (0.60-1.30)
[2021-01-20 03:32] LABS: MAGNESIUM 1.1 MG/DL (1.6-2.4)
--- NOTE | 2021-01-20 03:35 | ED Abdominal Pain ---
General Chief Complaint: Abdominal/GI Problems Stated Complaint: ABD PAIN Nursing Triage Note: Pt brought to ER by [facility] from [facility] with c/o abdominal pain. Patient states the pain began around 15:00 today. Pt states they gave her a [place] around 21:00 tonight and she does have a fentanyl patch on but nothing has relieved the pain. Patient has had nausea tonight. Patient was admitted to [facility] recently for septic shock. Pt has a Ileostomy in the right lower abdomen and a LANE drain with green drainage in the right upper abdomen just above the ileostomy. Sepsis Screen: Possible Sepsis Risk Source of Information: EMS, Old Records Exam Limitations: Other (PT IS VERY POOR HISTORIAN) History of Present Illness Date Seen by Provider: Jan 20, 2021 Time Seen by Provider: 02:42 Initial Comments PT ARRIVES VIA EMS FROM [facility] PT C/O ABDOMINAL PAIN AROUND STOMA SITE, AROUND 2100 THIS EVENING, PT HAD DOSE OF OXYCODONE AT 2115 AND WAS ABLE TO GO TO SLEEP WOKE UP AT 0130, C/O PAIN IN ABDOMEN AGAIN, SO EMS WAS CALLED PT ALSO HAS A FENTANYL PATCH IN PLACE PT HAS HAS VERY COMPLICATED HISTORY OVER THE LAST 3 MONTHS PT WAS DX WITH COLON CANCER AND HAD A RIGHT HEMICOLECTOMY, COMPLICATED BY ILEOCOLONIC TORSION OF THE OSTOMY. HAS HAD REPEAT RESECTIONS, WITH ILEOSTOMY. HAS HAD MULTIPLE SUBSEQUENT PROCEDURES FOR REVISION, DEBRIDEMENTS, WOUND VAC'S AND DRAINAGE OF INTRA-ABDOMINAL ABSCESSES, AND MESH PLACEMENT. SEE OLD CHARTS FOR DETAILS SHE HAS HAD MULTIPLE EPISODES OF SEPSIS AND GENERALIZED DECONDITIONING AND REQUIRED INPATIENT REHAB STAYS AFTER EACH ADMIT PT WAS ADMITTED 10/31-11/15, THEN READMITTED 11/15-12/30 DUE TO NON-FUNCTIONING ILEOSTOMY RE-ADMITTED 01/12-01/17/21 FOR SEPTIC SHOCK SURGEON IS DR. XIONG PT CURRENTLY HAS A J-P DRAIN IN PLACE ABOVE THE MIDLINE ILEOSTOMY, AND LEFT MID ABDOMEN NON-HEALED OPEN WOUND FROM PRIOR SURGERY. PT CAN ONLY STATE THAT SHE HAS PAIN AROUND HER STOMA, CANNOT GIVE ANY OTHER INFORMATION NO OTHER INFORMATION IS OBTAINABLE FROM [facility]P AT THIS TIME. PCP: DR. CASAS SURGEON: DR. XIONG Allergies and Home Medications Allergies Coded Allergies: Penicillins (Verified Allergy, Unknown, Anaphylaxis, 09/26/20) budesonide (Verified Allergy, Unknown, Nausea, PT USES TRELEGY, 12/20/20) formoterol (Verified Allergy, Unknown, Nausea, 09/26/20) midazolam (Verified Allergy, Unknown, Anaphylaxis, 09/26/20) Home Medications Albuterol Sulfate 2.5 Mg/0.5 Ml Vial.neb, 2.5 MG INH Q4H PRN for SHORTNESS OF BREATH, (Reported) Alprazolam 0.25 Mg Tablet, 0.25 MG PO Q4H PRN for ANXIETY, (Reported) Amlodipine Besylate 10 Mg Tablet, 10 MG PO DAILY, (Reported) DO NOT GIVE IF BP <80/50 OR >180/110 AND P <50 OR >110 Cetirizine HCl 10 Mg Tablet, 10 MG PO DAILY, (Reported) Docusate Sodium 100 Mg Capsule, 100 MG PO BID, (Reported) Enoxaparin Sodium 40 Mg/0.4 Ml Syringe, 40 MG SQ HS, (Reported) Fentanyl 1 Each Patch.td72, 25 MCG PO Q72H, (Reported) Fluticasone Propionate 9.9 Ml [place].susp, 1 SPRAY NSEACH DAILY, (Reported) Fluticasone/Umeclidin/Vilanter 1 Each Blst.w.dev, 1 PUFF IH DAILY, (Reported) Levofloxacin 500 Mg Tablet, 500 MG PO DAILY, (Reported) START DATE 01-18-2021 #7 DAY SUPPLY Lisinopril 20 Mg Tablet, 20 MG PO DAILY, (Reported) DO NOT GIVE IF BP <80/50 OR >180/100 AND P <50 OR >110 Melatonin 3 Mg Tablet, 6 MG PO HS PRN for INSOMNIA, (Reported) TAKES 2 (3MG) TABLETS Metoclopramide HCl 5 Mg Tablet, 5 MG PO BID, (Reported) Metoprolol Tartrate 25 Mg Tablet, 25 MG PO BID, (Reported) DO NOT GIVE BP <80/50 OR >180/110 AND P <50 OR >110 Miconazole 5 Gm Powder, 1 APPLIC TOP Q12H PRN for RASH, (Reported) Montelukast Sodium 10 Mg Tablet, 10 MG PO HS, (Reported) Nicotine 1 Each Patch.td24, 7 MG TD DAILY, (Reported) Ondansetron HCl 4 Mg Tablet, 4 MG PO Q6H PRN for NAUSEA/VOMITING-1ST LINE, (Reported) Oxycodone HCl 5 Mg Tablet, 5 MG PO EVERY 3 HOURS PRN for PAIN-SEVERE (8-10), (Reported) Pantoprazole Sodium 40 Mg Tablet.dr, 40 MG PO BID, (Reported) Phenol 177 Ml [place], 1 SPRAY MM Q2H PRN for Throat Irritation, (Reported) Polyethylene Glycol 3350 17 Gm Powd.pack, 17 GM PO BID, (Reported) Potassium Chloride 20 Meq Packet, 20 MEQ PO DAILY Prescribed by: WILFREDO MARTÍNEZ on 01/17/21 1154 Propylene Glycol/Peg 400 15 Ml Drops, 1 DROP OU Q8H PRN for DRY EYES, (Reported) Saliva Stimulant Agents Comb.3 1 Each [place], 1 EACH MM PRN PRN for DRY MOUTH, (Reported) Sennosides/Docusate Sodium 1 Each Tablet, 1 EACH PO BID, (Reported) Sodium Chloride 1 Gm Tab, 1 GM PO BID, (Reported) Sodium Hypochlorite 473 Ml Solution, 1 ML TOP BID Prescribed by: WILFREDO MARTÍNEZ on 01/17/21 1154 Sucralfate 1 Gm Tablet, 1 GM PO QIDACHS, (Reported) Tamsulosin HCl 0.4 Mg Cap, 0.4 MG PO DAILY, (Reported) Umeclidinium Brm/Vilanterol Tr 1 Each Blst.w.dev, 1 PUFF IH DAILY, (Reported) [Bethanechol] 25 TAB, 25 MG PO AC, (Reported) Patient Home Medication List Home Medication List Reviewed: Yes Review of Systems Review of Systems Constitutional: no symptoms reported; No fever; other (VERY LIMITED HISTORIAN) Gastrointestinal: See HPI, Abdominal Pain, Nausea Past Tbejebo-Vchpir-Olgiug Hx Past Med/Social Hx: Reviewed and Corrections made Patient Social History Alcohol Use: Denies Use Smoking Status: Current Everyday Smoker Type Used: Cigarettes 2nd Hand Smoke Exposure: No Recent Infectious Disease Expo: No Recent Hopitalizations: No Immunizations Up To Date Tetanus Booster (TDap): Unknown Date of Pneumonia Vaccine: Jul 25, 2020 Date of Influenza Vaccine: Jul 25, 2020 Seasonal Allergies Seasonal Allergies: Yes Past Medical History Surgeries: Yes (CATARACTS; BOWEL SURGERIES--SEE BELOW) Abdominal, Bowel Surgery, Eye Surgery, Tonsillectomy Respiratory: Yes COPD Currently Using CPAP: No Currently Using BIPAP: No Cardiac: Yes High Cholesterol, Hypertension Neurological: No Genitourinary: No Gastrointestinal: Yes (colon cancer) Chronic Constipation Musculoskeletal: Yes Arthritis, Chronic Back Pain Endocrine: No HEENT: Yes (cataracts removed, dentures) Hearing Impairment: Hard of Hearing, Bilateral Hearing Aide Cancer: Yes Colon Did You Recieve Any Treatments: Yes What Type of Treatment Did You: Surgical Intervention Psychosocial: No Integumentary: No Blood Disorders: No Family Medical History PAST SURGICAL HISTORY: -COLONOSCOPY -11/01/20--PT HAD EXTENDED RIGHT HEMICOLECTOMY WITH SUBSEQUENT ILEOCOLONIC TORSION, WITH ILEOSTOMY, MULTIPLE RESECTIONS AND REVISIONS, DEBRIDEMENTS, DRAINAGE OF INTRA-ABDOMINAL ABSCESSES, AND MESH PLACEMENT. Physical Exam Vital Signs Vital Signs - First Documented 01/20/21 02:38 Temp 36.4 Pulse 100 Resp 22 B/P (MAP) 156/65 (95) Pulse Ox 91 O2 Delivery Nasal Cannula O2 Flow Rate 2.00 Capillary Refill : Less Than 3 Seconds Height/Weight/BMI Height: '" Weight: lbs. oz. kg; 29.00 BMI Method: General Appearance: WD/WN, other (FLAT AFFECT. ) Respiratory: normal breath sounds, no respiratory distress, no accessory muscle use Cardiovascular: regular rate, rhythm Gastrointestinal: normal bowel sounds, soft, tenderness (DIFFUSE TENDERNESS, ESPECIALLY AROUND ILEOSTOMY AND LEFT MID ABDOMEN AROUND PACKED OPEN WOUND. LANE DRAIN WITH PURULENT APPEARING GREEN DRAINAGE. ), other (ILEOSTOMY BAG WITH MODERATE AMOUNT OF LIQUID STOOL) Extremities: no pedal edema, normal capillary refill Back: no CVA tenderness Neurologic/Psychiatric: no motor/sensory deficits, alert, other (FLAT AFFECT. ORIENTED TO SELF AND KNOWS SHE IS IN HOSPITAL. BUT CONFUSED TO TIME AND IS UNCLEAR HOW ORIENTED SHE IS TO SITUATION. ) Skin: normal color, warm/dry Focused Exam Sepsis Stage: Sepsis Possible Source: GI Tract/Intra-Abdominal Lactate Level 01/20/21 02:52: Lactic Acid Level 1.57 Time of Focused Exam: 04:30 Respiratory: Normal Breath Sounds, No Accessory Muscle Use, No Respiratory Distress Cardiovascular: Regular Rate, Rhythm, No Edema, No Murmur Capillary Refill: Less Than 3 Seconds Skin: warm/dry, pallor Lactic Acid Level Laboratory Tests Test 01/20/21 02:52 Lactic Acid Level 1.57 MMOL/L (0.50-2.00) Within 3hrs of presentation: Admin fluids, Admin ABX, Blood cultures prior to ABX's, Focus exam, Lactate level Procedures/Interventions Date of ETT Placement: Nov 15, 2020 Progress/Results/Core Measures Results/Orders Lab Results Laboratory Tests Test 01/20/21 02:52 01/20/21 04:29 Range/Units White Blood Count 18.5 H 4.3-11.0 10^3/uL Red Blood Count 3.84 3.80-5.11 10^6/uL Hemoglobin 11.3 L 11.5-16.0 g/dL Hematocrit 34 L 35-52 % Mean Corpuscular Volume 89 80-99 fL Mean Corpuscular Hemoglobin 29 25-34 pg Mean Corpuscular Hemoglobin Concent 33 32-36 g/dL Red Cell Distribution Width 14.1 10.0-14.5 % Platelet Count 397 130-400 10^3/uL Mean Platelet Volume 8.7 L 9.0-12.2 fL Immature Granulocyte % (Auto) 1 % Neutrophils (%) (Auto) 73 42-75 % Lymphocytes (%) (Auto) 17 12-44 % Monocytes (%) (Auto) 6 0-12 % Eosinophils (%) (Auto) 3 0-10 % Basophils (%) (Auto) 1 0-10 % Neutrophils # (Auto) 13.6 H 1.8-7.8 10^3/uL Lymphocytes # (Auto) 3.1 1.0-4.0 10^3/uL Monocytes # (Auto) 1.0 0.0-1.0 10^3/uL Eosinophils # (Auto) 0.5 H 0.0-0.3 10^3/uL Basophils # (Auto) 0.1 0.0-0.1 10^3/uL Immature Granulocyte # (Auto) 0.2 H 0.0-0.1 10^3/uL Neutrophils % (Manual) 74 % Lymphocytes % (Manual) 18 % Monocytes % (Manual) 5 % Eosinophils % (Manual) 2 % Band Neutrophils 1 % Blood Morphology Comment NORMAL Prothrombin Time 14.5 12.2-14.7 SEC INR Comment 1.1 0.8-1.4 Activated Partial Thromboplast Time 40 H 24-35 SEC Sodium Level 129 L 135-145 MMOL/L Potassium Level 4.6 3.6-5.0 MMOL/L Chloride Level 93 L 98-107 MMOL/L Carbon Dioxide Level 25 21-32 MMOL/L Anion Gap 11 5-14 MMOL/L Blood Urea Nitrogen 8 7-18 MG/DL Creatinine 0.91 0.60-1.30 MG/DL Estimat Glomerular Filtration Rate 60 BUN/Creatinine Ratio 9 Glucose Level 130 H 70-105 MG/DL Lactic Acid Level 1.57 0.50-2.00 MMOL/L Calcium Level 9.3 8.5-10.1 MG/DL Corrected Calcium 9.9 8.5-10.1 MG/DL Magnesium Level 1.1 *L 1.6-2.4 MG/DL Total Bilirubin 0.4 0.1-1.0 MG/DL Aspartate Amino Transf (AST/SGOT) 14 5-34 U/L Alanine Aminotransferase (ALT/SGPT) 14 0-55 U/L Alkaline Phosphatase 101 40-136 U/L Total Protein 6.6 6.4-8.2 GM/DL Albumin 3.2 3.2-4.5 GM/DL Amylase Level 521 H 25-125 U/L Lipase 1031 H 8-78 U/L Procalcitonin 0.09 <0.10 NG/ML Urine Color YELLOW Urine Clarity SL CLOUDY Urine pH 8.5 5-9 Urine Specific [place] 1.010 L 1.016-1.022 Urine Protein NEGATIVE NEGATIVE Urine Glucose (UA) NEGATIVE NEGATIVE Urine Ketones NEGATIVE NEGATIVE Urine Nitrite NEGATIVE NEGATIVE Urine Bilirubin NEGATIVE NEGATIVE Urine Urobilinogen 0.2 < = 1.0 MG/DL Urine Leukocyte Esterase NEGATIVE NEGATIVE Urine RBC (Auto) NEGATIVE NEGATIVE Urine RBC NONE /HPF Urine WBC 0-2 /HPF Urine Squamous Epithelial Cells NONE /HPF Urine Crystals NONE /LPF Urine Bacteria TRACE /HPF Urine Casts NONE /LPF Urine Mucus NEGATIVE /LPF Urine Culture Indicated CULTURE PENDING My Orders Orders - MAMTA MORAN DO Ed Iv/Invasive Line Start (01/20/21 02:41) Monitor-Rhythm Ecg Trace Only (01/20/21 02:41) Amylase (01/20/21 02:41) Cbc With Automated Diff (01/20/21 02:41) Comprehensive Metabolic Panel (01/20/21 02:41) Lipase (01/20/21 02:41) Magnesium (01/20/21 02:41) Ua Culture If Indicated (01/20/21 02:41) Catheter(Urinary) Insert & Ass 03,15 (01/20/21 02:41) Lactic Acid Analyzer (01/20/21 02:48) Procalcitonin (Pct) (01/20/21 02:48) Blood Culture (01/20/21 02:48) Ed Iv/Invasive Line Start (01/20/21 03:03) Lactated Ringers (Lr 1000 Ml Iv Solution (01/20/21 03:15) Chest 1 View, Ap/Pa Only (01/20/21 03:05) Fentanyl Inj (Sublimaze Injection) (01/20/21 03:05) Ondansetron Injection (Zofran Injectio (01/20/21 03:15) Ed Iv/Invasive Line Start (01/20/21 03:12) Lactated Ringers (Lr 1000 Ml Iv Solution (01/20/21 03:15) Manual Differential (01/20/21 02:52) Ct Abdomen/Pelvis W (01/20/21 03:28) Urine Culture (01/20/21 03:38) Protime With Inr (01/20/21 03:38) Partial Thromboplastin Time (01/20/21 03:38) Vital Signs Adult Sepsis Patie Q15M (01/20/21 03:38) O2 (01/20/21 03:38) Remove Rings In Anticipation O (01/20/21 03:38) Ed Iv/Invasive Line Start (01/20/21 03:39) Ns Iv 1000 Ml (Sodium Chloride 0.9%) (01/20/21 03:45) Magnesium 1 Gm/100 Ml Ivpb (Magnesium Uribe (01/20/21 03:45) Iohexol Injection (Omnipaque 350 Mg/Ml 1 (01/20/21 04:15) Received Contrast (Hold Metformin- Contr (01/20/21 04:15) Ns (Ivpb) (Sodium Chloride 0.9% Ivpb Bag (01/20/21 04:15) Meropenem (Merrem 1000 Mg) (01/20/21 05:00) Metronidazole 500mg/100ml Ivpb (Flagyl 5 (01/20/21 05:00) Vancomycin Injection (Vancomycin Injecti (01/20/21 05:15) Body Fluid Culture (01/20/21 05:09) Medications Given in ED Vital Signs/I&O 01/20/21 01/20/21 02:38 02:40 Temp 36.4 Pulse 100 Resp 22 B/P (MAP) 156/65 (95) Pulse Ox 91 97 O2 Delivery Nasal Cannula Nasal Cannula O2 Flow Rate 2.00 3.00 Blood Pressure Mean: 95 Progress Progress Note : Progress Note O2 SATS 91-94% ON 2L/NC GIVEN IV FLUIDS AND SEPTIC LABS ORDERED PT HAD VERY BRIEF DROP IN BP INTO 80'S--RAPIDLY CORRECTED TO SYSTOLIC BP > 100 WITH LESS THAN 500 ML FLUID PT GIVEN ADDITIONAL LITER OF FLUIDS AFTER THIS PT GIVEN ANTIBIOTICS --PREVIOUS CULTURES HAD GROWN OUT PSEUDOMONAS, KLEBSIELLA, AND STAPH GIVEN PAIN MEDICATION AND NAUSEA MEDICATION WITH IMPROVEMENT OF THOSE SYMPTOMS Diagnostic Imaging Comments CXR--PER RADIOLOGIST REPORT AT 0525 Heart size and pulmonary vascularity are normal. Lungs are clear. There are no effusions or pneumothoraces. IMPRESSION: Negative chest CT ABDOMEN/PELVIS--PER [facility] VIA FAX AT 0447 LARGE FLUID COLLECTION IN ABDOMEN 13 X 10 X 8.3 CM-ANTERIOR TO THIRD SEGMENT D UODENUM EXTENDING TO RIGHT FLANK WITH WELL-DEFINED RIM, CANNOT EXCLUDE ABSCESS OR LOCULATED FLUID COLLECTION OR PSEUDOCYST. GASTRIC WALL THICKENING. SMALL BOWEL LOOPS MILDLY DILATED--ILEUS VS PARTIAL OBSTRUCTION. SMALL AMOUNT OF ASCITES. POST SURGICAL CHANGES. Reviewed: Reviewed by Me Departure Communication (Admissions) 0447--SPOKE WITH DR. FULTON, HOSPITALIST, ACCEPTS PT FOR ADMIT 0450--SPOKE WITH DR. TOURE, SURGEON IT PROJECT COORDINATOR, DR. XIONG WILL BE NOTIFIED IN AM. Impression Primary Impression: Sepsis Additional Impressions: Abdominal pain Acute pancreatitis S/P RECENT ILEOSTOMY S/P RECENT HEMICOLECTOMY SEVERE HYPOMAGNESEMIA Hyponatremia Intra-abdominal abscess post-procedure Ileus following gastrointestinal surgery Disposition: ADMITTED INPATIENT Condition: Stable Admissions Decision to Admit Reason: Admit from ER (General) Decision to Admit/Date: Jan 20, 2021 Time/Decision to Admit Time: 04:50 Departure-Patient Inst. Referrals: LAWANDA CASAS MD (PCP/Family) Primary Care Physician MAMTA MORAN DO Jan 20, 2021 03:35
[2021-01-20] MEDS ORDERED: NS IV 1000 ML 1,000 ML IV SCH ×2 (03:45→06:00)
[2021-01-20 03:49] LABS: BAND NEUTROPHILS 1 %; EOSINOPHILS % (MANUAL) 2 %; LYMPHOCYTES % (MANUAL) 18 %; MONOCYTES % (MANUAL) 5 %; NEUTROPHILS % (MANUAL) 74 %; RBC MORPH NORMAL
[2021-01-20] MEDS: MAGNESIUM 1 GM/100 ML IVPB 100 ML IV SCH ×4 (03:49→08:37)
[2021-01-20 03:54] LABS: INR 1.1 (0.8-1.4); PROTHROMBIN TIME PATIENT 14.5 SEC (12.2-14.7)
[2021-01-20] MEDS ORDERED: NS 100 ML (IVPB) BAG IV ONE (04:15)
[2021-01-20] MEDS ORDERED: IOHEXOL 350 MG/ML 100 ML (OMNIPAQUE 350) VIAL IV ONE (04:15)
[2021-01-20] MEDS ORDERED: HOLD METFORMIN - RECEIVED CONTRAST 20 ML VIAL IV SCH (04:15)
[2021-01-20 04:36] LABS: BILIRUBIN,URINE NEGATIVE (NEGATIVE); CLARITY,URINE SL CLOUDY; COLOR,URINE YELLOW; GLUCOSE, URINE (UA) NEGATIVE (NEGATIVE); KETONES,URINE NEGATIVE (NEGATIVE); LEUKOCYTE ESTERASE ,URINE NEGATIVE (NEGATIVE); NITRITE,URINE NEGATIVE (NEGATIVE); PH,URINE 8.5 (5-9); PROTEIN,URINE NEGATIVE (NEGATIVE)
[2021-01-20 04:46] LABS: BACTERIA,URINE TRACE /HPF; WBC,URINE 0-2 /HPF
--- NOTE | 2021-01-20 04:58 | Diagnostic Imaging Report ---
INDICATION: Hypoxemia Portable chest 3:45 AM Heart size and pulmonary vascularity are normal. Lungs are clear. There are no effusions or pneumothoraces. IMPRESSION: Negative chest Dictated by: Dictated on workstation # [id number]
[2021-01-20] MEDS ORDERED: MEROPENEM 2,000 MG in NS (IVPB) 100 ML IV SCH (05:00)
[2021-01-20] MEDS ORDERED: metroNIDAZOLE 500MG/100ML IVPB 100 ML IV ONE (05:00)
[2021-01-20] MEDS ORDERED: D5 NS W/KCL 20 MEQ/1000 ML IV SCH ×2 (06:00)
[2021-01-20] MEDS: fentaNYL INJ 100 MCG/2 ML AMP IVP PRN ×2 (06:21→08:38)
--- NOTE | 2021-01-20 06:29 | Pulmonary Consultation ---
History of Present Illness History of Present Illness Date Seen by Provider: Jan 20, 2021 Time Seen by Provider: 06:22 Date of Admission History of Present Illness 75yo with recent dx of colon cancer s/p right hemicolectomy, complicated with ileocolonic torsion of ostomy and s/p multiple repeat surgeries and repeated resections per Dr. Lynch presented to ED via EMS from [facility] secondary to worsening abdominal pain around stoma site. Pain started around 2100 last night. Pt has been recently treated for sepsis. She was admitted from 10/31 to 11/15 then readmitted 11/15-12/30 secondary to post surgical complications. Then readmitted 01/12-01/17 with sepsis. Pt currently has a J-P drain in place and left mid abdominal non healed open wound from recent surgery. Allergies and Home Medications Allergies Coded Allergies: Penicillins (Verified Allergy, Unknown, Anaphylaxis, 09/26/20) budesonide (Verified Allergy, Unknown, Nausea, PT USES TRELEGY, 12/20/20) formoterol (Verified Allergy, Unknown, Nausea, 09/26/20) midazolam (Verified Allergy, Unknown, Anaphylaxis, 09/26/20) Home Medications ALPRAZolam 0.25 Mg Tablet, 0.25 MG PO Q4H PRN for ANXIETY Prescribed by: WILFREDO MARTÍNEZ on 01/17/21 1154 Albuterol Sulfate 2.5 Mg/0.5 Ml Vial.neb, 2.5 MG INH Q4H PRN for SHORTNESS OF BREATH, (Reported) Amlodipine Besylate 10 Mg Tablet, 10 MG PO DAILY, (Reported) DO NOT GIVE IF BP <80/50 OR >180/110 AND P <50 OR >110 Cetirizine HCl 10 Mg Tablet, 10 MG PO DAILY, (Reported) Docusate Sodium 100 Mg Capsule, 100 MG PO BID, (Reported) Enoxaparin Sodium 40 Mg/0.4 Ml Syringe, 40 MG SQ HS, (Reported) Fentanyl 1 Each Patch.td72, 25 MCG TD Q72H Prescribed by: WILFREDO MARTÍNEZ on 01/17/21 1154 Fluticasone Propionate 9.9 Ml [place].susp, 1 SPRAY NSEACH DAILY, (Reported) Fluticasone/Umeclidin/Vilanter 1 Each Blst.w.dev, 1 PUFF IH DAILY, (Reported) Levofloxacin 500 Mg Tablet, 500 MG PO DAILY Prescribed by: WILFREDO MARTÍNEZ on 01/17/21 1156 Lisinopril 20 Mg Tablet, 20 MG PO DAILY, (Reported) DO NOT GIVE IF BP <80/50 OR >180/100 AND P <50 OR >110 Melatonin 3 Mg Tablet, 6 MG PO HS PRN for INSOMNIA, (Reported) TAKES 2 (3MG) TABLETS Metoclopramide HCl 5 Mg Tablet, 5 MG PO BID, (Reported) Metoprolol Tartrate 25 Mg Tablet, 25 MG PO BID, (Reported) DO NOT GIVE BP <80/50 OR >180/110 AND P <50 OR >110 Miconazole 5 Gm Powder, 1 APPLIC TOP Q12H PRN for RASH, (Reported) Montelukast Sodium 10 Mg Tablet, 10 MG PO HS, (Reported) Nicotine 1 Each Patch.td24, 14 MG TD DAILY, (Reported) Ondansetron HCl 4 Mg Tablet, 4 MG PO Q6H PRN for NAUSEA/VOMITING-1ST LINE, (Reported) Oxycodone HCl 5 Mg Tablet, 5 MG PO Q3H PRN for PAIN-SEVERE (8-10) Prescribed by: WILFREDO MARTÍNEZ on 01/17/21 115 Pantoprazole Sodium 40 Mg Tablet.dr, 40 MG PO BID, (Reported) Phenol 177 Ml [place], 1 SPRAY MM Q2H PRN for Throat Irritation, (Reported) Polyethylene Glycol 3350 17 Gm Powd.pack, 17 GM PO BID, (Reported) Potassium Chloride 20 Meq Packet, 20 MEQ PO DAILY Prescribed by: WILFREDO MARTÍNEZ on 01/17/21 115 Propylene Glycol/Peg 400 15 Ml Drops, 1 DROP OU Q8H PRN for DRY EYES, (Reported) Saliva Stimulant Agents Comb.3 1 Each [place], 1 EACH MM PRN PRN for DRY MOUTH, (Reported) Sennosides/Docusate Sodium 1 Each Tablet, 1 EACH PO BID, (Reported) Sodium Chloride 1 Gm Tab, 1 GM PO BID, (Reported) Sodium Hypochlorite 473 Ml Solution, 1 ML TOP BID Prescribed by: WILFREDO MARTÍNEZ on 01/17/21 115 Sucralfate 1 Gm Tablet, 1 GM PO QIDACHS, (Reported) Tamsulosin HCl 0.4 Mg Cap, 0.4 MG PO DAILY, (Reported) Umeclidinium Brm/Vilanterol Tr 1 Each Blst.w.dev, 1 PUFF IH DAILY, (Reported) [Bethanechol 25MG] , 25 MG PO QIDACHS, (Reported) Past Ecxuang-Qvbeea-Xcpdjx Hx Past Med/Social Hx: Reviewed and Corrections made Patient Social History Alcohol Use: Denies Use Smoking Status: Current Everyday Smoker Type Used: Cigarettes 2nd Hand Smoke Exposure: No Recent Infectious Disease Expo: No Recent Hopitalizations: No Immunizations Up To Date Tetanus Booster (TDap): Unknown Date of Pneumonia Vaccine: Jul 25, 2020 Date of Influenza Vaccine: Jul 25, 2020 Seasonal Allergies Seasonal Allergies: Yes Past Medical History Surgeries: Yes (CATARACTS; BOWEL SURGERIES--SEE BELOW) Abdominal, Bowel Surgery, Eye Surgery, Tonsillectomy Respiratory: Yes COPD Currently Using CPAP: No Currently Using BIPAP: No Cardiac: Yes High Cholesterol, Hypertension Neurological: No Genitourinary: No Gastrointestinal: Yes (colon cancer) Chronic Constipation Musculoskeletal: Yes Arthritis, Chronic Back Pain Endocrine: No HEENT: Yes (cataracts removed, dentures) Hearing Impairment: Hard of Hearing, Bilateral Hearing Aide Cancer: Yes Colon Did You Recieve Any Treatments: Yes What Type of Treatment Did You: Surgical Intervention Psychosocial: No Integumentary: No Blood Disorders: No Family Medical History PAST SURGICAL HISTORY: -COLONOSCOPY -11/01/20--PT HAD EXTENDED RIGHT HEMICOLECTOMY WITH SUBSEQUENT ILEOCOLONIC TORSION, WITH ILEOSTOMY, MULTIPLE RESECTIONS AND REVISIONS, DEBRIDEMENTS, DRAINAGE OF INTRA-ABDOMINAL ABSCESSES, AND MESH PLACEMENT. Review of Systems Time Seen by Provider: 06:33 Sepsis Event Evaluation Height, Weight, BMI Height: '" Weight: lbs. oz. kg; 29.00 BMI Method: Exam Exam Vital Signs Date Time Temp Pulse Resp B/P (MAP) Pulse Ox O2 Delivery O2 Flow Rate FiO2 01/20/21 05:30 36.8 95 18 127/61 94 Nasal Cannula 3.00 01/20/21 02:40 97 Nasal Cannula 3.00 01/20/21 02:38 36.4 100 22 156/65 (95) 91 Nasal Cannula 2.00 I & O 01/20/21 07:00 Intake Total 3100 ml Balance 3100 ml Height & Weight Height: '" Weight: lbs. oz. kg; 29.00 BMI Method: Capillary Refill: Less Than 3 Seconds Gastrointestinal: normal bowel sounds, soft, tenderness (DIFFUSE TENDERNESS, ESPECIALLY AROUND ILEOSTOMY AND LEFT MID ABDOMEN AROUND PACKED OPEN WOUND. LANE DRAIN WITH PURULENT APPEARING GREEN DRAINAGE. ), other (ILEOSTOMY BAG WITH MODERATE AMOUNT OF LIQUID STOOL) Results Lab Laboratory Tests 01/20/21 02:52 Assessment/Plan Assessment/Plan Acute and recurrent Sepsis -Continue Vanco and Merrem -Normal LA -Patel cultures pending Abdominal pain with acute pancreatitis -IVF -Pain control S/p recurrent multiple surgeries with unhealed wound -Dr. Lynch consulted Hyponatremia -Monitor Hypomag -Replace -Check phos -Repeat labs GIOVANNA BORREGO DO Jan 20, 2021 06:29
--- NOTE | 2021-01-20 06:41 | Diagnostic Imaging Report ---
PROCEDURE: CT abdomen and pelvis with contrast. TECHNIQUE: Multiple contiguous axial images were obtained through the abdomen and pelvis after administration of intravenous contrast. Auto Exposure Controls were utilized during the CT exam to meet ALARA standards for radiation dose reduction. All CT scans use one or more of the following dose optimizing techniques: automated exposure control, MA and/or KvP adjustment based on patient size and exam type or iterative reconstruction. INDICATION: Right upper abdominal pain There is some dependent basilar atelectasis bilaterally. Liver is unremarkable. The gallbladder is present. The portal vein is patent. Common duct is not dilated. Pancreas appears normal. Spleen is not enlarged. Adrenals are normal. There are some cortical cysts in both kidneys. There is no solid mass, calculus or hydronephrosis. Some calcific atherosclerosis of the aorta but no aneurysm. Uterus is present. There is some air in the urinary bladder that may be from instrumentation. Patient has had a subtotal right colectomy. There is colonic diverticulosis. The colon is decompressed. There is an ileostomy in the right mid abdomen. Uterus is present. Adnexa unremarkable. There is a peritoneal drain in the upper abdomen. There is a small amount of fluid in the upper mesentery. There is no evidence of bowel obstruction. There is no intraperitoneal free air. There is large fluid collection in the abdomen measuring 13.4 x 6.0 x 12 cm. This is not appreciably changed from prior exam done on 01/12/2021 IMPRESSION: Postoperative changes from right colectomy. The distal colon is decompressed. There is a diverting ileostomy in the right mid abdomen measuring colostomy in the left mid abdomen. There is dehiscence of the anterior abdominal wall with secondary healing. Large fluid collection mid abdomen could be related pancreas or could be postsurgical in nature but appears stable compared to 01/12/2021. There is some edema within the falx and mesentery in the upper abdomen that appears new since 01/12/2021. I agree with preliminary interpretation. Dictated by: Dictated on workstation # [id number]
[2021-01-20] MEDS ORDERED: D5 NS W/KCL 20 MEQ/L 1,000 ML IV SCH (07:00)
[2021-01-20 07:25] VITALS: BP 156/65
[2021-01-20 07:25] LABS: BUN/CREATININE RATIO 8; CALCIUM 8.2 MG/DL (8.5-10.1); CARBON DIOXIDE 22 MMOL/L (21-32); CHLORIDE 98 MMOL/L (98-107); CREATININE SERUM 0.83 MG/DL (0.60-1.30); GFR ESTIMATED > 60; GLUCOSE 144 MG/DL (70-105); MAGNESIUM 2.1 MG/DL (1.6-2.4); PHOSPHORUS 3.9 MG/DL (2.3-4.7); POTASSIUM 4.4 MMOL/L (3.6-5.0); SODIUM 131 MMOL/L (135-145)
[2021-01-20] MEDS ORDERED: RT-ALBUTEROL SULF 2.5 MG/3 ML PRE-MIX VIAL INH PRN (07:30)
[2021-01-20] MEDS: LACTATED RINGERS 1,000 ML IV SCH ×3 (08:38→17:23)
[2021-01-20] MEDS: ONDANSETRON 4 MG/2 ML (SDV) Z0FRAN IVP PRN ×2 (08:52→15:20)
[2021-01-20] MEDS ORDERED: HYDROmorphone 2 MG/ML VIAL (DILAUDID) IVP PRN (09:15)
[2021-01-20] MEDS ORDERED: VANCOMYCIN 1500 MG/NS 500 ML IVPB IV NR ×2 (09:30)
[2021-01-20] MEDS: VANCOMYCIN INJECTION 750 MG in NS (IVPB) 250 ML IV SCH ×2 (10:17→10:18)
--- NOTE | 2021-01-20 11:08 | History & Physical ---
LATISHA LEVI MED STUDENT 01/20/21 1108: History of Present Illness History of Present Illness Reason for visit/HPI Pt is a 75 yo F who presented to ED via EMS from [facility] for uncontrollable abdominal pain. Pt was recently discharged from [facility] following septic shock. Pt has a complicated medical history including colon cancer, right hemicolectomry, ileocolonic torsion of ostomy, further resection with ileostomy, and LANE drain. Pt received [place] and a fentanyl patch prior to ED arrival and neither helped relieve the pain. Chest X ray indicates no pulmonary or cardiac concerns/ pathology. Abdominal CT indicates a large fluid collection and small bowel loops mildly dilated. Pt unable to provide history due to clinical condition. Information obtained via ED summary Date of Admission Jan 20, 2021 at 05:13 Date Seen by a Provider: Jan 20, 2021 Time Seen by a Provider: 08:30 I consulted on this patient on 01/20/21 11:02 Attending Physician Melanie Gupta MD Admitting Physician Ryan Mcnulty MD Consult Allergies and Home Medications Allergies Coded Allergies: Penicillins (Verified Allergy, Unknown, Anaphylaxis, 09/26/20) budesonide (Verified Allergy, Unknown, Nausea, PT USES TRELEGY, 12/20/20) formoterol (Verified Allergy, Unknown, Nausea, 09/26/20) midazolam (Verified Allergy, Unknown, Anaphylaxis, 09/26/20) Home Medications Albuterol Sulfate 2.5 Mg/0.5 Ml Vial.neb, 2.5 MG INH Q4H PRN for SHORTNESS OF BREATH, (Reported) Alprazolam 0.25 Mg Tablet, 0.25 MG PO Q4H PRN for ANXIETY, (Reported) Amlodipine Besylate 10 Mg Tablet, 10 MG PO DAILY, (Reported) DO NOT GIVE IF BP <80/50 OR >180/110 AND P <50 OR >110 Cetirizine HCl 10 Mg Tablet, 10 MG PO DAILY, (Reported) Docusate Sodium 100 Mg Capsule, 100 MG PO BID, (Reported) Enoxaparin Sodium 40 Mg/0.4 Ml Syringe, 40 MG SQ HS, (Reported) Fentanyl 1 Each Patch.td72, 25 MCG PO Q72H, (Reported) Fluticasone Propionate 9.9 Ml Polson.susp, 1 SPRAY NSEACH DAILY, (Reported) Fluticasone/Umeclidin/Vilanter 1 Each Blst.w.dev, 1 PUFF IH DAILY, (Reported) Levofloxacin 500 Mg Tablet, 500 MG PO DAILY, (Reported) START DATE 01-18-2021 #7 DAY SUPPLY Lisinopril 20 Mg Tablet, 20 MG PO DAILY, (Reported) DO NOT GIVE IF BP <80/50 OR >180/100 AND P <50 OR >110 Melatonin 3 Mg Tablet, 6 MG PO HS PRN for INSOMNIA, (Reported) TAKES 2 (3MG) TABLETS Metoclopramide HCl 5 Mg Tablet, 5 MG PO BID, (Reported) Metoprolol Tartrate 25 Mg Tablet, 25 MG PO BID, (Reported) DO NOT GIVE BP <80/50 OR >180/110 AND P <50 OR >110 Miconazole 5 Gm Powder, 1 APPLIC TOP Q12H PRN for RASH, (Reported) Montelukast Sodium 10 Mg Tablet, 10 MG PO HS, (Reported) Nicotine 1 Each Patch.td24, 7 MG TD DAILY, (Reported) Ondansetron HCl 4 Mg Tablet, 4 MG PO Q6H PRN for NAUSEA/VOMITING-1ST LINE, (Reported) Oxycodone HCl 5 Mg Tablet, 5 MG PO EVERY 3 HOURS PRN for PAIN-SEVERE (8-10), (Reported) Pantoprazole Sodium 40 Mg Tablet.dr, 40 MG PO BID, (Reported) Phenol 177 Ml Polson, 1 SPRAY MM Q2H PRN for Throat Irritation, (Reported) Polyethylene Glycol 3350 17 Gm Powd.pack, 17 GM PO BID, (Reported) Potassium Chloride 20 Meq Packet, 20 MEQ PO DAILY Prescribed by: GENNA MARTÍNEZ on 01/17/21 1154 Propylene Glycol/Peg 400 15 Ml Drops, 1 DROP OU Q8H PRN for DRY EYES, (Reported) Saliva Stimulant Agents Comb.3 1 Each Polson, 1 EACH MM PRN PRN for DRY MOUTH, (Reported) Sennosides/Docusate Sodium 1 Each Tablet, 1 EACH PO BID, (Reported) Sodium Chloride 1 Gm Tab, 1 GM PO BID, (Reported) Sodium Hypochlorite 473 Ml Solution, 1 ML TOP BID Prescribed by: GENNA MARTÍNEZ on 01/17/21 1154 Sucralfate 1 Gm Tablet, 1 GM PO QIDACHS, (Reported) Tamsulosin HCl 0.4 Mg Cap, 0.4 MG PO DAILY, (Reported) Umeclidinium Brm/Vilanterol Tr 1 Each Blst.w.dev, 1 PUFF IH DAILY, (Reported) [Bethanechol] 25 TAB, 25 MG PO AC, (Reported) Past Mbleuyp-Fvafse-Vbzicd Hx Patient Social History Smoking Status: Current Everyday Smoker 2nd Hand Smoke Exposure: No Recent Hopitalizations: No Have you traveled recently?: No Pt feels they are or have been: No Immunizations Up To Date Tetanus Booster (TDap): Unknown Date of Pneumonia Vaccine: Jul 25, 2020 Date of Influenza Vaccine: Aug 22, 2020 Seasonal Allergies Seasonal Allergies: Yes Surgeries Yes (CATARACTS; BOWEL SURGERIES--SEE BELOW) Abdominal, Bowel Surgery, Eye Surgery, Tonsillectomy Respiratory Yes COPD, Pneumonia Currently Using CPAP: No Currently Using BIPAP: No Cardiovascular Yes High Cholesterol, Hypertension Neurological No Genitourinary No Gastrointestinal Yes (colon cancer) Chronic Constipation Musculoskeletal Yes Arthritis, Chronic Back Pain Endocrine History of Endocrine Disorders: No HEENT History of HEENT Disorders: Yes (cataracts removed, dentures) Hearing Impairment: Hard of Hearing, Bilateral Hearing Aide Cancer Yes Colon Did You Recieve Any Treatments: Yes Type of Treatment: Surgical Intervention Psychosocial History of Psychiatric Problem: No Integumentary History of Skin or Integumenta: No Blood Transfusions History of Blood Disorders: No Family Medical History Other Significan Family Hx: PAST SURGICAL HISTORY: -COLONOSCOPY -11/01/20--PT HAD EXTENDED RIGHT HEMICOLECTOMY WITH SUBSEQUENT ILEOCOLONIC TORSION, WITH ILEOSTOMY, MULTIPLE RESECTIONS AND REVISIONS, DEBRIDEMENTS, DRAINAGE OF INTRA-ABDOMINAL ABSCESSES, AND MESH PLACEMENT. Review of Systems ROS-Unable to Obtain: Difficult to obtain due to pts current condition Constitutional: no symptoms reported EENTM: no symptoms reported Respiratory: No cough, No short of breath Gastrointestinal: abdominal pain Genitourinary: no symptoms reported Musculoskeletal: no symptoms reported Skin: no symptoms reported Psychiatric/Neurological: No Symptoms Reported Physical Exam Vital Signs Vital Signs - First Documented 01/20/21 01/20/21 02:38 07:25 Temp 36.4 Pulse 100 Resp 22 B/P (MAP) 156/65 (95) Pulse Ox 91 O2 Delivery Nasal Cannula O2 Flow Rate 2.00 FiO2 28 Capillary Refill : Less Than 3 Seconds Height, Weight, BMI Height: '" Weight: lbs. oz. kg; 31.76 BMI Method: General Appearance: Chronically ill, Mild Distress Neck: Normal Inspection, Supple Respiratory: Chest Non Tender, Lungs Clear, No Accessory Muscle Use, No Respiratory Distress, Crackles Cardiovascular: Regular Rate, Rhythm, No Edema, No Gallop, No Murmur Gastrointestinal: Guarding, Tenderness Rectal: Deferred Extremity: Non Tender, No Calf Tenderness, No Pedal Edema Neurologic/Psychiatric: Oriented x3, Depressed Affect, Other (Able to be aroused, but answers few questions) Skin: Warm/Dry, Pallor Assessment/Plan Assessment and Plan ASSESSMENT: Septic Acute pancreatitis CT indicated abdominal fluid collection - abscess vs. seroma CT indicated small bowel loops mildly dilated - ileus vs. partial obstruction Anemia - Hgb 11.3 Leukocytosis - 18.5 Hyponatremia - 131 Hypomagnesemia - 1.1 PLAN: Consult surgery Replace magnesium Continue abx NPO IV fluids Pain control Monitor labs Trend amylase and lipase GENNA MARTÍNEZ DO 01/21/21 0546: History of Present Illness History of Present Illness Reason for visit/HPI CC: Sepsis HPI: This is a 75yoWF clinic Pt of Dr. Her who presents three days after she was discharged on Levaquin per sensitivity profile with abdominal pain and acute pancreatitis. CT scan showed fluid collection, whether or not it is an abscess is difficult to say. Magnesium is low at 1.1 and sodium of 131 and Amylase and Lipase were 521 and 1031 respectively. Discussion of DNR. Allergies and Home Medications Allergies Coded Allergies: Penicillins (Verified Allergy, Unknown, Anaphylaxis, 09/26/20) budesonide (Verified Allergy, Unknown, Nausea, PT USES TRELEGY, 12/20/20) formoterol (Verified Allergy, Unknown, Nausea, 09/26/20) midazolam (Verified Allergy, Unknown, Anaphylaxis, 09/26/20) Home Medications Albuterol Sulfate 2.5 Mg/0.5 Ml Vial.neb, 2.5 MG INH Q4H PRN for SHORTNESS OF BREATH, (Reported) Alprazolam 0.25 Mg Tablet, 0.25 MG PO Q4H PRN for ANXIETY, (Reported) Amlodipine Besylate 10 Mg Tablet, 10 MG PO DAILY, (Reported) DO NOT GIVE IF BP <80/50 OR >180/110 AND P <50 OR >110 Cetirizine HCl 10 Mg Tablet, 10 MG PO DAILY, (Reported) Docusate Sodium 100 Mg Capsule, 100 MG PO BID, (Reported) Enoxaparin Sodium 40 Mg/0.4 Ml Syringe, 40 MG SQ HS, (Reported) Fentanyl 1 Each Patch.td72, 25 MCG PO Q72H, (Reported) Fluticasone Propionate 9.9 Ml Polson.susp, 1 SPRAY NSEACH DAILY, (Reported) Fluticasone/Umeclidin/Vilanter 1 Each Blst.w.dev, 1 PUFF IH DAILY, (Reported) Levofloxacin 500 Mg Tablet, 500 MG PO DAILY, (Reported) START DATE 01-18-2021 #04/30 DAY SUPPLY Lisinopril 20 Mg Tablet, 20 MG PO DAILY, (Reported) DO NOT GIVE IF BP <80/50 OR >180/100 AND P <50 OR >110 Melatonin 3 Mg Tablet, 6 MG PO HS PRN for INSOMNIA, (Reported) TAKES 2 (3MG) TABLETS Metoclopramide HCl 5 Mg Tablet, 5 MG PO BID, (Reported) Metoprolol Tartrate 25 Mg Tablet, 25 MG PO BID, (Reported) DO NOT GIVE BP <80/50 OR >180/110 AND P <50 OR >110 Miconazole 5 Gm Powder, 1 APPLIC TOP Q12H PRN for RASH, (Reported) Montelukast Sodium 10 Mg Tablet, 10 MG PO HS, (Reported) Nicotine 1 Each Patch.td24, 7 MG TD DAILY, (Reported) Ondansetron HCl 4 Mg Tablet, 4 MG PO Q6H PRN for NAUSEA/VOMITING-1ST LINE, (Reported) Oxycodone HCl 5 Mg Tablet, 5 MG PO EVERY 3 HOURS PRN for PAIN-SEVERE (8-10), (Reported) Pantoprazole Sodium 40 Mg Tablet.dr, 40 MG PO BID, (Reported) Phenol 177 Ml Polson, 1 SPRAY MM Q2H PRN for Throat Irritation, (Reported) Polyethylene Glycol 3350 17 Gm Powd.pack, 17 GM PO BID, (Reported) Potassium Chloride 20 Meq Packet, 20 MEQ PO DAILY Prescribed by: GENNA MARTÍNEZ on 01/17/21 1154 Propylene Glycol/Peg 400 15 Ml Drops, 1 DROP OU Q8H PRN for DRY EYES, (Reported) Saliva Stimulant Agents Comb.3 1 Each Polson, 1 EACH MM PRN PRN for DRY MOUTH, (Reported) Sennosides/Docusate Sodium 1 Each Tablet, 1 EACH PO BID, (Reported) Sodium Chloride 1 Gm Tab, 1 GM PO BID, (Reported) Sodium Hypochlorite 473 Ml Solution, 1 ML TOP BID Prescribed by: GENNA MARTÍNEZ on 01/17/21 1154 Sucralfate 1 Gm Tablet, 1 GM PO QIDACHS, (Reported) Tamsulosin HCl 0.4 Mg Cap, 0.4 MG PO DAILY, (Reported) Umeclidinium Brm/Vilanterol Tr 1 Each Blst.w.dev, 1 PUFF IH DAILY, (Reported) [Bethanechol] 25 TAB, 25 MG PO AC, (Reported) Patient Home Medication List Home Medication List Reviewed: Yes Past Wilepnx-Aamcni-Jeigto Hx Patient Social History Marrital Status: single Employed/Student: retired Smoking Status: Current Everyday Smoker Surgeries Abdominal Respiratory COPD, Pneumonia Cardiovascular High Cholesterol, Hypertension Review of Systems Constitutional: see HPI Gastrointestinal: abdominal pain, nausea, vomiting Physical Exam General Appearance: WD/WN, Anxious, Chronically ill, Mild Distress Eyes: Bilateral Eye Normal Inspection, Bilateral Eye PERRL, Bilateral Eye EOMI HEENT: PERRL/EOMI, Normal ENT Inspection, Pharynx Normal Neck: Full Range of Motion, Normal Inspection, Non Tender, Supple, Carotid Bruit Respiratory: Chest Non Tender, Lungs Clear, Normal Breath Sounds, No Accessory Muscle Use, No Respiratory Distress Cardiovascular: Regular Rate, Rhythm, No Edema, No Gallop, No JVD, No Murmur, Normal Peripheral Pulses Gastrointestinal: Normal Bowel Sounds, No Organomegaly, No Pulsatile Mass, Non Tender, Soft Back: Normal Inspection, No CVA Tenderness, No Vertebral Tenderness Extremity: Normal Capillary Refill, Normal Inspection, Normal Range of Motion, Non Tender, No Calf Tenderness, No Pedal Edema Neurologic/Psychiatric: Alert, Oriented x3, No Motor/Sensory Deficits, Normal Mood/Affect Skin: Normal Color, Warm/Dry Lymphatic: No Adenopathy Assessment/Plan Assessment and Plan Problems: (1) Sepsis Status: Acute (2) Abdominal pain Status: Acute (3) Intra-abdominal abscess post-procedure Status: Acute (4) S/P right hemicolectomy (5) Hyponatremia (6) Acute pancreatitis Status: Acute (7) Acute renal failure (ARF) (8) UTI (urinary tract infection) (9) 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 I reviewed and verified all information documented by the medical student and made modifications to such information, when appropriate. I personally performed the physical exam and medical decision making. Genna Martínez, Jan 21, 2021,05:46 LATISHA LEVI MED STUDENT Jan 20, 2021 11:08 GENNA MARTÍNEZ DO Jan 21, 2021 05:46
[2021-01-20] MEDS: HYDROmorphone 2 MG/ML VIAL (DILAUDID) IVP PRN (12:03)
[2021-01-20] MEDS: MEROPENEM 500 MG/SWFI 10 ML IV PUSH IV SCH ×4 (13:44→20:36)
[2021-01-20] MEDS ORDERED: ALPR0.25 PO (13:56)
[2021-01-20] MEDS ORDERED: BETHANECHOL PO (13:56)
[2021-01-20] MEDS ORDERED: NICO-586 TD (13:56)
[2021-01-20] MEDS ORDERED: LEVO500T80 PO (13:56)
[2021-01-20] MEDS ORDERED: FENT1PAT8 PO (13:56)
[2021-01-20] MEDS ORDERED: OXYC5TAB PO (13:56)
[2021-01-20] MEDS ORDERED: metroNIDAZOLE 500 MG/100 ML IVPB (PRE-MIX) IV SCH (18:00)
--- NOTE | 2021-01-20 18:49 | CONSULTATION REPORT ---
DATE OF SERVICE: 01/20/2021 HISTORY OF PRESENT ILLNESS: The patient is a 75-year-old female well known to us. She was found to have a large mass along the transverse colon and found to have a near obstructing transverse colonic lesion, which was biopsied and consistent with adenocarcinoma. 10/31/2020, she underwent an attempted laparoscopic extended right hemicolectomy; however, this was converted to open. She then underwent an ileocolonic anastomosis. However, postoperatively, she did not have any significant bowel function and after 7 days a Gastrografin small bowel through was performed, which did not show any contrast within the colon within 10 hours. On 11/10/2020, she underwent reopening of the laparotomy, resection of ileocolonic anastomosis as well as end ileostomy and mucous fistula. She developed abdominal distention and significant leukocytosis and on 11/15/2020, underwent an exploration and found to have a large intraabdominal abscess and underwent closure of the abdomen with Strattice porcine biologic mesh 20 x 16 cm in size as well as placement of a wound VAC. She was recently admitted due to purulent drainage from her previous intra-abdominal [place] drain. She did improve with antibiotics and was discharged to an extended care facility; however, reported last night. She did have significant amount of pain. A CT scan was performed, which was compared to the previous CT scan, which did show an area of fluid collection, which is increased in size, likely consistent with an intraabdominal abscess. PAST MEDICAL HISTORY: COPD, hypertension, hypercholesterolemia, colon cancer. PAST SURGICAL HISTORY: Tonsillectomy, extended right hemicolectomy, laparotomy with ABThera wound VAC placement and later normal wound VAC. ALLERGIES: PENICILLIN, SYMBICORT AND VERSED. MEDICATIONS: Albuterol, Xanax, amlodipine, Zyrtec, docusate, Lovenox, fentanyl patch, Flonase, Trelegy Ellipta, lisinopril, Reglan, metoprolol, miconazole, Singulair, nicotine patch, Zofran, oxycodone, Protonix, Flomax, Anoro Ellipta and bethanechol. SOCIAL HISTORY: Previous smoke, 55 pack years, quit in 2019. Rare alcohol. FAMILY HISTORY: Mother, hypertension, father, hypertension. Paternal grandmother, colon cancer. VITAL SIGNS: Temperature 36.2, blood pressure 163/69, pulse 88, respirations 20, pulse ox 92% on room air. REVIEW OF SYSTEMS: A well-nourished female, currently in no acute distress. She is not experiencing any shortness of breath or difficulty breathing. No chest pain, palpitations, diaphoresis. No nausea, vomiting. She has a functional end ileostomy as well as mucous fistula. She states no fever, no chills, no recent inadvertent weight loss. PHYSICAL EXAMINATION: CHEST: Scattered rales and rhonchi bilaterally. HEART: Regular, no murmurs. EXTREMITIES: No lower extremity edema, negative Homans sign. HEENT: No scleral icterus. NECK: No cervical lymphadenopathy. ABDOMEN: Soft, nondistended. There is pain more along the right lower abdominal quadrant. There were no palpable hernias. There is voluntary guarding. SKIN: Warm, dry. LABORATORY DATA: WBC 9.1, hemoglobin 10.3, hematocrit 31, platelets 303. BUN 6, creatinine 0.70. Admission magnesium was less than 0.6. Urinalysis, leukocyte esterase 2+, large amounts of bacteria. ASSESSMENT AND PLAN: A 75-year-old female with an intra-abdominal abscess. She is currently on antibiotics and we will consult radiology for possible ultrasound or CT-guided drain placement. She is not obstructed and does not have any issues with nausea or vomiting and does have a functional ileostomy and we will resume her diet. Job ID: [id number] DocumentID: [id number] Dictated Date: 01/20/2021 18:26:01 Electrical Instrument Repairer Date: 01/20/2021 18:49:35 Dictated By: MICHAEL XIONG MD
[2021-01-20] MEDS: DAKIN'S 1/4 STRENGTH (0.125%) 473 ML BTL TOP SCH (20:36)
[2021-01-20] MEDS ORDERED: VANCOMYCIN 750 MG/NS 250 ML IVPB IV SCH ×4 (23:00)
[2021-01-21] MEDS: LACTATED RINGERS 1,000 ML IV SCH ×2 (00:22→08:15)
[2021-01-21] MEDS: HYDROmorphone 2 MG/ML VIAL (DILAUDID) IVP PRN (02:42)
[2021-01-21] MEDS: ONDANSETRON 4 MG/2 ML (SDV) Z0FRAN IVP PRN (02:42)
[2021-01-21 03:45] LABS: BASOPHILS % (AUTO) 0 % (0-10); EOSINOPHILS # (AUTO) 0.1 10^3/uL (0.0-0.3); EOSINOPHILS % (AUTO) 1 % (0-10); HEMATOCRIT 30 % (35-52); HEMOGLOBIN 9.7 g/dL (11.5-16.0); LYMPHOCYTES % (AUTO) 14 % (12-44); MEAN CORPUSCULAR HEMOGLOBIN 29 pg (25-34); MEAN CORPUSCULAR HGB CONC 32 g/dL (32-36); MEAN CORPUSCULAR VOLUME 92 fL (80-99); MEAN PLATELET VOLUME 8.9 fL (9.0-12.2); MONOCYTES # (AUTO) 0.9 10^3/uL (0.0-1.0); MONOCYTES % (AUTO) 6 % (0-12); NEUTROPHILS # (AUTO) 10.7 10^3/uL (1.8-7.8); NEUTROPHILS % (AUTO) 78 % (42-75); PLATELET COUNT 333 10^3/uL (130-400); WHITE BLOOD COUNT 13.9 10^3/uL (4.3-11.0)
[2021-01-21 03:55] LABS: ALBUMIN 2.3 GM/DL (3.2-4.5); CHLORIDE 97 MMOL/L (98-107); POTASSIUM 4.4 MMOL/L (3.6-5.0); SODIUM 128 MMOL/L (135-145)
[2021-01-21 03:56] LABS: CALCIUM 8.2 MG/DL (8.5-10.1)
[2021-01-21 03:58] LABS: GLUCOSE 132 MG/DL (70-105); TOTAL PROTEIN 4.8 GM/DL (6.4-8.2)
[2021-01-21 03:59] LABS: BILIRUBIN,TOTAL 0.3 MG/DL (0.1-1.0); CARBON DIOXIDE 22 MMOL/L (21-32)
[2021-01-21 04:01] LABS: ALKALINE PHOSPHATASE 75 U/L (40-136); CREATININE SERUM 0.76 MG/DL (0.60-1.30); GFR ESTIMATED > 60; PHOSPHORUS 3.5 MG/DL (2.3-4.7)
[2021-01-21 04:02] LABS: BUN/CREATININE RATIO 12
[2021-01-21 04:04] LABS: ALANINE AMINOTRANSFERASE 10 U/L (0-55); MAGNESIUM 1.8 MG/DL (1.6-2.4)
--- NOTE | 2021-01-21 04:19 | Pulmonary Progress Note ---
Subjective Time Seen by a Provider: 04:17 Subjective/Events-last exam Plan is for LANE drain per radiology today. Sepsis Event Evaluation Height, Weight, BMI Height: '" Weight: lbs. oz. kg; 31.76 BMI Method: Focused Exam Lactate Level 01/20/21 02:52: Lactic Acid Level 1.57 Time of Focused Exam: 04:30 Exam Exam Vital Signs Date Time Temp Pulse Resp B/P (MAP) Pulse Ox O2 Delivery O2 Flow Rate FiO2 01/21/21 03:53 93 Nasal Cannula 3.00 01/21/21 03:00 96 15 100/43 (59) 93 Nasal Cannula 3.00 01/21/21 02:00 95 16 117/48 (68) 93 Nasal Cannula 3.00 01/21/21 01:00 96 16 113/51 (71) 93 Nasal Cannula 3.00 01/21/21 01:00 96 01/21/21 00:24 93 Nasal Cannula 3.00 01/21/21 00:23 36.9 01/21/21 00:00 99 10 140/60 (86) 93 Nasal Cannula 3.00 01/20/21 23:00 92 16 120/52 (76) 94 Nasal Cannula 3.00 01/20/21 22:00 93 16 128/54 (74) 91 Nasal Cannula 3.00 01/20/21 21:00 96 20 125/50 (82) 92 Nasal Cannula 3.00 01/20/21 20:00 92 12 117/49 (68) 93 Nasal Cannula 3.00 01/20/21 20:00 93 Nasal Cannula 3.00 01/20/21 19:23 36.8 01/20/21 19:00 88 12 123/50 (78) 94 Nasal Cannula 3.00 01/20/21 19:00 88 01/20/21 18:26 93 2.00 01/20/21 18:00 101 15 133/58 (83) 93 Nasal Cannula 3.00 01/20/21 17:00 86 15 121/54 (76) 93 Nasal Cannula 3.00 01/20/21 16:00 87 14 140/60 (86) 94 Nasal Cannula 3.00 01/20/21 16:00 90 Nasal Cannula 3.00 01/20/21 15:57 36.8 01/20/21 15:00 87 15 122/59 (80) 93 Nasal Cannula 3.00 01/20/21 14:00 92 16 112/48 (69) 92 Nasal Cannula 3.00 01/20/21 13:00 93 18 125/56 (79) 92 Nasal Cannula 3.00 01/20/21 12:52 87 01/20/21 12:00 90 23 131/53 (79) 94 Nasal Cannula 3.00 01/20/21 11:45 90 Nasal Cannula 3.00 01/20/21 11:00 98 18 134/54 (80) 93 Nasal Cannula 3.00 01/20/21 10:00 85 13 124/52 (76) 93 Nasal Cannula 3.00 01/20/21 09:00 89 15 111/50 (70) 89 Nasal Cannula 3.00 01/20/21 08:30 36.7 01/20/21 08:00 84 18 138/56 (83) 90 Nasal Cannula 3.00 01/20/21 08:00 90 Nasal Cannula 3.00 01/20/21 07:25 36.4 100 91 28 01/20/21 07:00 85 18 137/61 (86) 92 Nasal Cannula 3.00 01/20/21 06:50 93 Nasal Cannula 3.00 01/20/21 06:45 90 18 130/62 (84) 93 Nasal Cannula 3.00 01/20/21 06:30 89 17 112/50 (70) 93 Nasal Cannula 3.00 01/20/21 06:15 85 18 126/84 (98) 94 Nasal Cannula 3.00 01/20/21 06:03 93 01/20/21 06:00 36.8 93 16 138/57 (84) 91 Nasal Cannula 3.00 01/20/21 05:30 36.8 95 18 127/61 94 Nasal Cannula 3.00 I & O 01/21/21 07:00 Intake Total 1575 ml Output Total 2427 ml Balance -852 ml Height & Weight Height: '" Weight: lbs. oz. kg; 31.76 BMI Method: General Appearance: Chronically ill, Mild Distress Neck: Normal Inspection, Supple Respiratory: Normal Breath Sounds, No Accessory Muscle Use, No Respiratory Distress Cardiovascular: Regular Rate, Rhythm, No Edema, No Murmur Capillary Refill: Less Than 3 Seconds Gastrointestinal: normal bowel sounds, soft, tenderness (DIFFUSE TENDERNESS, ESPECIALLY AROUND ILEOSTOMY AND LEFT MID ABDOMEN AROUND PACKED OPEN WOUND. LANE DRAIN WITH PURULENT APPEARING GREEN DRAINAGE. ), other (ILEOSTOMY BAG WITH MODERATE AMOUNT OF LIQUID STOOL) Extremity: Non Tender, No Calf Tenderness, No Pedal Edema Neurologic/Psychiatric: Oriented x3, Depressed Affect, Other (Able to be aroused, but answers few questions) Skin: Warm/Dry, Pallor Results Lab Laboratory Tests 01/20/21 02:52 01/20/21 06:57 01/21/21 03:15 Assessment/Plan Assessment/Plan Acute and recurrent Sepsis -Continue Vanco and Merrem -Normal [place] -Patel cultures pending Abdominal pain with acute pancreatitis and probable abscess -Plan if for LANE drain per radiology today. -IVF -Pain control S/p recurrent multiple surgeries with unhealed wound -Dr. Lynch consulted Hyponatremia -Monitor Hypomag -Replace -Check phos -Repeat labs GIOVANNA BORREGO DO Jan 21, 2021 04:19
[2021-01-21] MEDS: MEROPENEM 500 MG/SWFI 10 ML IV PUSH IV SCH ×6 (05:23→21:00)
--- NOTE | 2021-01-21 08:35 | Diagnostic Imaging Report ---
INDICATION: Sepsis. COMPARISON: 01/20/2021 FINDINGS: Single frontal radiograph view of the chest is obtained and demonstrates stable cardiac silhouette and pulmonary vasculature. There are increased patchy opacities within the left base partially obscuring left hemidiaphragm. Right lung remains clear. No large effusion is seen on the right. There is no pneumothorax on either side. Osseous structures show no gross acute abnormalities. IMPRESSION: 1. Interval increase in left basilar atelectasis and/or infiltrate. Small effusion cannot be entirely excluded. Dictated by: Dictated on workstation # [id number]
[2021-01-21] MEDS ORDERED: VANCOMYCIN 1250 MG/NS 250 ML IVPB IV SCH ×2 (09:00)
[2021-01-21] MEDS: DAKIN'S 1/4 STRENGTH (0.125%) 473 ML BTL TOP SCH ×2 (09:05→21:19)
[2021-01-21] MEDS ORDERED: CHLORASEPTIC SPRAY 177 ML LIQUID MM PRN (09:30)
[2021-01-21] MEDS ORDERED: MELATONIN 3 MG TABLET PO PRN (09:30)
[2021-01-21] MEDS ORDERED: SALIVA STIMULANT MOUTH SPRAY (BIOTENE) 1.5 OZ MM PRN (09:30)
[2021-01-21] MEDS ORDERED: ALPRAZolam 0.25 MG (XANAX) TAB PO PRN (09:30)
[2021-01-21] MEDS ORDERED: RT-ALBUTEROL SULF 2.5 MG/3 ML PRE-MIX VIAL INH PRN (09:30)
[2021-01-21] MEDS ORDERED: ARTIFICAL TEARS 0.4 ML UNIT DOSE (REFRESH PLUS) OU PRN (09:45)
[2021-01-21] MEDS ORDERED: ONDANSETRON 4 MG (ZOFRAN) ORAL DISSOLVE TAB PO PRN (10:00)
[2021-01-21] MEDS ORDERED: MICONAZOLE NITRATE 2% CRM 30 GM TP PRN (10:00)
--- NOTE | 2021-01-21 10:40 | Progress Note ---
LATISHA LEVI MED STUDENT 01/21/21 1040: Subjective Date Seen by a Provider: Jan 21, 2021 Time Seen by a Provider: 07:45 Subjective/Events-last exam Pt is awake and lying in bed. Pt is more aware this morning to converse. Pt c/o diffuse abdominal pain but predominantly LUQ which is aggravated by deep breathing. Pt is anxious for news about what the plan of care is as well as when she will be allowed to have food/ water. Pt is currently NPO for expected drain placement by Dr. Lynch. Pt has no other complaints. No acute events over night. Review of Systems General: No Chills; Fatigue HEENT: No Head Aches, No Dysphasia Pulmonary: Dyspnea; No Cough Cardiovascular: No: Chest Pain, Palpitations Gastrointestinal: Abdominal Pain (Diffuse but predominantly LUQ); No: Nausea, Vomiting Genitourinary: No Dysuria, No Hematuria Musculoskeletal: No: back pain, leg pain Neurological: No: Weakness, Numbness Focused Exam Lactate Level 01/20/21 02:52: Lactic Acid Level 1.57 Time of Focused Exam: 04:30 Objective Exam Last Set of Vital Signs Vital Signs Date Time Temp Pulse Resp B/P (MAP) Pulse Ox O2 Delivery O2 Flow Rate FiO2 01/21/21 07:56 37.4 01/21/21 06:50 103 01/21/21 06:20 3.00 01/21/21 06:00 15 126/55 (78) 93 Nasal Cannula 01/20/21 07:25 28 Capillary Refill : Less Than 3 Seconds I&O Intake and Output 01/21/21 00:00 Intake Total 5775 ml Output Total 2027 ml Balance 3748 ml Intake Oral 150 ml IV Total 5625 ml Output Urine Total 1425 ml Stool Total 600 ml Drainage Total 2 ml Daily Weight Change No General: Alert, Oriented X3, Cooperative HEENT: Atraumatic, PERRLA, EOMI Neck: Supple Lungs: Clear to Auscultation Heart: Regular Rate, Normal S1, Normal S2, No Murmurs Abdomen: Soft, Other (Tenderness) Extremities: No Clubbing, No Cyanosis, Other (Slight b/l LE swelling) Skin: No Rashes, No Significant Lesion Psych/Mental Status: Mental Status NL, Mood NL Results Lab Laboratory Tests 01/21/21 03:15: White Blood Count 13.9H, Red Blood Count 3.32L, Hemoglobin 9.7L, Hematocrit 30L, Mean Corpuscular Volume 92, Mean Corpuscular Hemoglobin 29, Mean Corpuscular Hemoglobin Concent 32, Red Cell Distribution Width 14.6H, Platelet Count 333, Mean Platelet Volume 8.9L, Immature Granulocyte % (Auto) 1, Neutrophils (%) (Auto) 78H, Lymphocytes (%) (Auto) 14, Monocytes (%) (Auto) 6, Eosinophils (%) (Auto) 1, Basophils (%) (Auto) 0, Neutrophils # (Auto) 10.7H, Lymphocytes # (Auto) 2.0, Monocytes # (Auto) 0.9, Eosinophils # (Auto) 0.1, Basophils # (Auto) 0.0, Immature Granulocyte # (Auto) 0.1, Sodium Level 128L, Potassium Level 4.4, Chloride Level 97L, Carbon Dioxide Level 22, Anion Gap 9, Blood Urea Nitrogen 9, Creatinine 0.76, Estimat Glomerular Filtration Rate > 60, BUN/Creatinine Ratio 12, Glucose Level 132H, Calcium Level 8.2L, Corrected Calcium 9.6, Phosphorus Level 3.5, Magnesium Level 1.8, Total Bilirubin 0.3, Aspartate Amino Transf (AST/SGOT) 9, Alanine Aminotransferase (ALT/SGPT) 10, Alkaline Phosphatase 75, Total Protein 4.8L, Albumin 2.3L Microbiology 01/20/21 MRSA Screen - Final, Complete MRSA not isolated 01/20/21 Gram Stain - Final, Resulted 01/20/21 Body Fluid Culture - Preliminary, Resulted Pseudomonas aeruginosa Assessment/Plan Assessment/Plan Assess & Plan/Chief Complaint ASSESSMENT: Sepsis Abdominal pain Acute appendicitis Intra-abdominal fluid collection Hyponatremia - 128 Leukocytosis - improving 13.9 Anemia - 9.7 Hypomagnesemia - 1.8 PLAN: Appreciate Dr. Sae malin - plan to place drainage tube tomorrow 01/22 Pain management Nicotine patch Fluid restriction Magnesium replacement PT/OT Move to 4th floor from ICU Monitor labs Clinical Quality Measures Admission Status Admission Dx ASSESSMENT: Septic Acute pancreatitis CT indicated abdominal fluid collection - abscess vs. seroma CT indicated small bowel loops mildly dilated - ileus vs. partial obstruction Anemia - Hgb 11.3 Leukocytosis - 18.5 Hyponatremia - 131 Hypomagnesemia - 1.1 PLAN: Consult surgery Replace magnesium Continue abx NPO IV fluids Pain control Monitor labs Trend amylase and lipase GENNA MARTÍNEZ DO 01/22/21 0517: Subjective Subjective/Events-last exam Pt doing a lot better Moving down to 4th floor CT guided procedure tomorrow to drain the fluid containing area in her abdomen Denies any significant pain Checked meds and labs Will start PT and OT Reviewed medication on transfer orders DC Vanc since there is no evidence of MRSA Review of Systems General: Fatigue, Malaise Gastrointestinal: Abdominal Pain (Diffuse but predominantly LUQ) Objective Exam General: Alert, Oriented X3, Cooperative, No Acute Distress Lungs: Clear to Auscultation, Normal Air Movement Heart: Regular Rate, Normal S1, Normal S2, No Murmurs Psych/Mental Status: Mental Status NL, Mood NL Assessment/Plan Assessment/Plan Assess & Plan/Chief Complaint CT guided drain placement? PT OT Monitor closely Fluid restriction Supervisory-Addendum Brief Verification & Attestation Participated in pt care: history, MDM, physical Personally performed: exam, history, MDM, supervision of care Care discussed with: Medical Student Procedures: n/a Results interpretation: Verified all documentation Verification and Attestation of Medical Student E/M Service A medical student performed and documented this service in my presence. I reviewed and verified all information documented by the medical student and made modifications to such information, when appropriate. I personally performed the physical exam and medical decision making. Genna Martínez, Jan 22, 2021,05:16 LATISHA LEVI MED STUDENT Jan 21, 2021 10:40 GENNA MARTÍNEZ DO Jan 22, 2021 05:17
[2021-01-21] MEDS: NICOTINE 7 MG (NICODERM) PATCH TD SCH (10:49)
[2021-01-21] MEDS: fentaNYL PATCH 25 MCG (DURAGESIC) TD SCH (10:50)
[2021-01-21] MEDS: FENTANYL PATCH REMOVAL TP SCH (10:50)
[2021-01-21] MEDS: SUCRALFATE 1 GM (CARAFATE) TAB PO SCH ×3 (11:55→20:59)
[2021-01-21] MEDS: BETHANECHOL 25 MG (URECHOLINE) TAB PO SCH ×2 (11:55→16:37)
--- NOTE | 2021-01-21 13:17 | Progress Note ---
Subjective Date Seen by a Provider: Jan 21, 2021 Time Seen by a Provider: 13:00 Subjective/Events-last exam doing better today. tolerating diet with functional end ileostomy. no f ever/chills. no change abd pain. Focused Exam Lactate Level 01/20/21 02:52: Lactic Acid Level 1.57 Time of Focused Exam: 04:30 Objective Exam Vital Signs Date Time Temp Pulse Resp B/P (MAP) Pulse Ox O2 Delivery O2 Flow Rate FiO2 01/21/21 12:47 01/21/21 12:00 109 27 141/62 (88) 92 Nasal Cannula 3.00 01/21/21 11:56 37.5 01/21/21 11:37 93 Nasal Cannula 3.00 01/21/21 11:00 111 22 138/73 (94) 92 Nasal Cannula 3.00 01/21/21 10:00 105 16 150/63 (92) 93 Nasal Cannula 3.00 01/21/21 09:00 101 15 137/63 (87) 94 Nasal Cannula 3.00 01/21/21 08:00 106 21 141/78 (99) 93 Nasal Cannula 3.00 01/21/21 08:00 93 Nasal Cannula 3.00 01/21/21 07:56 37.4 01/21/21 07:00 102 15 140/58 (85) 92 Nasal Cannula 3.00 01/21/21 06:50 103 01/21/21 06:20 3.00 01/21/21 06:00 97 15 126/55 (78) 93 Nasal Cannula 3.00 01/21/21 05:00 101 16 136/62 (86) 94 Nasal Cannula 3.00 01/21/21 04:00 36.7 01/21/21 04:00 96 32 120/52 (74) 92 Nasal Cannula 3.00 01/21/21 03:53 93 Nasal Cannula 3.00 01/21/21 03:00 96 15 100/43 (59) 93 Nasal Cannula 3.00 01/21/21 02:00 95 16 117/48 (68) 93 Nasal Cannula 3.00 01/21/21 01:00 96 16 113/51 (71) 93 Nasal Cannula 3.00 01/21/21 01:00 96 01/21/21 00:24 93 Nasal Cannula 3.00 01/21/21 00:23 36.9 01/21/21 00:00 99 10 140/60 (86) 93 Nasal Cannula 3.00 01/20/21 23:00 92 16 120/52 (76) 94 Nasal Cannula 3.00 01/20/21 22:00 93 16 128/54 (74) 91 Nasal Cannula 3.00 01/20/21 21:00 96 20 125/50 (82) 92 Nasal Cannula 3.00 01/20/21 20:00 92 12 117/49 (68) 93 Nasal Cannula 3.00 01/20/21 20:00 93 Nasal Cannula 3.00 01/20/21 19:23 36.8 01/20/21 19:00 88 12 123/50 (78) 94 Nasal Cannula 3.00 01/20/21 19:00 88 01/20/21 18:26 93 2.00 01/20/21 18:00 101 15 133/58 (83) 93 Nasal Cannula 3.00 01/20/21 17:00 86 15 121/54 (76) 93 Nasal Cannula 3.00 01/20/21 16:00 87 14 140/60 (86) 94 Nasal Cannula 3.00 01/20/21 16:00 90 Nasal Cannula 3.00 01/20/21 15:57 36.8 01/20/21 15:00 87 15 122/59 (80) 93 Nasal Cannula 3.00 01/20/21 14:00 92 16 112/48 (69) 92 Nasal Cannula 3.00 I & O 01/21/21 06:59 Intake Total 1575 ml Output Total 2812 ml Balance -1237 ml Capillary Refill : Less Than 3 Seconds General Appearance: No Apparent Distress HEENT: PERRL/EOMI Neck: Full Range of Motion Respiratory: Chest Non Tender, Decreased Breath Sounds Cardiovascular: Regular Rate, Rhythm Gastrointestinal: normal bowel sounds, soft, tenderness Extremity: Normal Capillary Refill Neurologic/Psychiatric: Alert, Oriented x3 Skin: Normal Color Lymphatic: No Adenopathy Results Lab Laboratory Tests 01/21/21 03:15: White Blood Count 13.9H, Red Blood Count 3.32L, Hemoglobin 9.7L, Hematocrit 30L, Mean Corpuscular Volume 92, Mean Corpuscular Hemoglobin 29, Mean Corpuscular Hemoglobin Concent 32, Red Cell Distribution Width 14.6H, Platelet Count 333, Mean Platelet Volume 8.9L, Immature Granulocyte % (Auto) 1, Neutrophils (%) (Auto) 78H, Lymphocytes (%) (Auto) 14, Monocytes (%) (Auto) 6, Eosinophils (%) (Auto) 1, Basophils (%) (Auto) 0, Neutrophils # (Auto) 10.7H, Lymphocytes # (Auto) 2.0, Monocytes # (Auto) 0.9, Eosinophils # (Auto) 0.1, Basophils # (Auto) 0.0, Immature Granulocyte # (Auto) 0.1, Sodium Level 128L, Potassium Level 4.4, Chloride Level 97L, Carbon Dioxide Level 22, Anion Gap 9, Blood Urea Nitrogen 9, Creatinine 0.76, Estimat Glomerular Filtration Rate > 60, BUN/Creatinine Ratio 12, Glucose Level 132H, Calcium Level 8.2L, Corrected Calcium 9.6, Phosphorus Level 3.5, Magnesium Level 1.8, Total Bilirubin 0.3, Aspartate Amino Transf (AST/SGOT) 9, Alanine Aminotransferase (ALT/SGPT) 10, Alkaline Phosphatase 75, Total Protein 4.8L, Albumin 2.3L Microbiology 01/20/21 MRSA Screen - Final, Complete MRSA not isolated 01/20/21 Gram Stain - Final, Resulted 01/20/21 Body Fluid Culture - Preliminary, Resulted Pseudomonas aeruginosa 01/20/21 Urine Culture - Final, Complete NO GROWTH Assessment/Plan Assessment/Plan Assess & Plan/Chief Complaint intraabdominal abscess. image guided drain placement. cont IV abx. monitor labs. MICHAEL XIONG MD Jan 21, 2021 13:17
--- NOTE | 2021-01-21 14:16 | Physical Therapy Evaluation ---
PT Evaluation-General Medical Diagnosis Admission Date Jan 20, 2021 at 05:13 Medical Diagnosis: sepsis/intraabdominal abscess Onset Date: Jan 20, 2021 Therapy Diagnosis Therapy Diagnosis: debility Precautions Precautions/Isolations: Fall Prevention, Standard Precautions Referral Physician: Ari Reason for Referral: Evaluation/Treatment Medical History Pertinent Medical History: Arthritis, COPD, HTN, Smoking Additional Medical History colon cancer Current History EMS from [place] secondary to abdominal pain Reviewed History: Yes Social History Home: Jail Prior Prior Level of Function SCALE: Activities may be completed with or without assistive devices. 4-Alxucfatel-rovhblp completes the activity by him/herself with no assistance from a helper. 5-Set-up or Clean-up Assistance-helper sets up or cleans up; patient completes activity. [place] assists only prior to or following the activity. 4-Supervision or Touching Assistance-helper provides verbal cues and/or touching/steadying and/or contact guard assistance as patient completes activity. Assistance may be provided throughout the activity or intermittently. 3-Partial/Moderate Assistance-helper does LESS THAN HALF the effort. [place] lifts, holds or supports trunk or limbs, but provides less than half the effort. 2-Substantial/Maximal Assistance-helper does MORE THAN HALF the effort. [place] lifts or holds trunk or limbs and provides more than half the effort. 3-Csgvyrplo-wpjfor does ALL the effort. Patient does none of the effort to complete the activity. Or, the assistance of 2 or more helpers is required for the patient to complete the activity. If activity was not attempted, code reason: 7-Patient Refused. 9-Not Applicable-not attempted and the patient did not perform the activity bef ore the current illness, exacerbation or injury. 10-Not Attempted due to Environmental Limitations-(lack of equipment, weather r estraints, etc.). 88-Not Attempted due to Medical Conditions or Safety Concerns. Bed Mobility: 6 Transfers (B,C,W/C): 6 Gait: 6 Indoor Mobility (Ambulation): Independent Stairs: Not Applicalbe Prior Devices Use: Walker PT Evaluation-Current Subjective Patient agrees to PT. Pain Numeric Pain Scale: 5-Moderate Pain Location: Right, Lower Location Body Site: Abdomen Pain Description: Pressure Objective Patient Orientation: Normal For Age Attachments: Colostomy/Ileostomy, Oxygen (3-4L) ROM/Strength ROM Lower Extremities bilateral LE WFL Strength Lower Extremities 4/5 grossly bilateral LE Integumentary/Posture Integumentary refer to nursing notes Bladder Incontinence: Lam Cath Posture WFL Neuromuscular (Tone, Coordination, Reflexes) grossly intact Sensory Vision: Functional Hearing: Hearing Aid/Aides Transfers Roll Left to Right (QC): 6 Sit to Lying (QC): 6 Lying to Sitting/Side of Bed(Q: 6 Sit to Stand (QC): 6 Gait Does the Patient Walk?: Yes Mode of Locomotion: Walk Anticipated Mode of Locomotion: Walk Walk 10 feet (QC): 6 Walk 50 ft with 2 Turns(QC): 6 Walk 150 ft (QC): 6 Distance: 225' Gait Assistive Device: FWW Comments/Gait Description safe and functional with FWW Wheelchair Training Does the Pt Use a Wheelchair?: No Balance Sitting Static: Normal Sitting Dynamic: Normal Standing Static: Normal Standing Dynamic: Normal Assessment/Needs 75 y.o. female, will be seen short term by skilled PT to address functional mobility. Patient has had several hospital admits this year due to abdominal issued. Rehab Potential: Guarded PT System Designer Goals Halfway Goals PT Halfway Goals Time Frame: Jan 31, 2021 Roll Left & Right (QC): 6 Sit to Lying (QC): 6 Lying-Sitting on Side/Bed(QC): 6 Sit to Stand (QC): 6 Chair/Ird-ja-Evveu Xfer(QC): 6 Toilet Transfer (QC): 6 Does the Patient Walk: Yes Walk 10 feet (QC): 6 Walk 50ft with 2 Turns (QC): 6 Walk 150 ft (QC): 6 PT Plan Problem List Problem List: Activity Tolerance Treatment/Plan Treatment Plan: Continue Plan of Care Treatment Plan: Education, Functional Activity [place], Functional Strength, Gait, Safety, Therapeutic Exercise, Transfers Treatment Duration: Jan 31, 2021 Frequency: 6 times per week Estimated Hrs Per Day: .25 hour per day Patient and/or Family Agrees t: Yes Time/GCodes Time In: 1336 Time Out: 1351 Total Billed Treatment Time: 15 Total Billed Treatment 1 visit EVModC 15 min ROBERT SCHWAB PT Jan 21, 2021 14:16
--- NOTE | 2021-01-21 15:31 | Occupational Therapy Eval ---
OT Evaluation-General/PLF Medical Diagnosis Admission Date Jan 20, 2021 at 05:13 Medical Diagnosis: sepsis/intraabdominal abscess Onset Date: Jan 20, 2021 Therapy Diagnosis Therapy Diagnosis: Weakness Precautions Precautions/Isolations: Fall Prevention, Standard Precautions Weight Bear Status Weight Bearing Restriction: Weight Bearing/Tolerated Referral Physician: Ari Hernandez Reason: Activity Tolerance, Self Care, Evaluation/Treatment, Strengthening/ROM Medical History Pertinent Medical History: Arthritis, COPD, HTN, Smoking Additional Medical History Colon CA, Right hemicolectomy ileocolonic torsion of ostomy, pancreatitis Current History Pt. was in hospital and transferred to [facility]. Pt. back with abdominal abscess. Reviewed History: Yes Social History Home: [facility] Entry Into Home: Level Entry ADL-Prior Level of Function SCALE: Activities may be completed with or without assistive devices. 5-Fzuoidikuw-fwzgdhx completes the activity by him/herself with no assistance from a helper. 5-Set-up or Clean-up Assistance-helper sets up or cleans up; patient completes activity. [place] assists only prior to or following the activity. 4-Supervision or Touching Assistance-helper provides verbal cues and/or touching/steadying and/or contact guard assistance as patient completes activity. Assistance may be provided throughout the activity or intermittently. 3-Partial/Moderate Assistance-helper does LESS THAN HALF the effort. [place] lifts, holds or supports trunk or limbs, but provides less than half the effort. 2-Substantial/Maximal Assistance-helper does MORE THAN HALF the effort. [place] lifts or holds trunk or limbs and provides more than half the effort. 1-Qccarxqiw-qgxvsh does ALL the effort. Patient does none of the effort to complete the activity. Or, the assistance of 2 or more helpers is required for the patient to complete the activity. If activity was not attempted, code reason: 7-Patient Refused. 9-Not Applicable-not attempted and the patient did not perform the activity before the current illness, exacerbation or injury. 10-Not Attempted due to Environmental Limitations-(lack of equipment, weather restraints, etc.). 88-Not Attempted due to Medical Conditions or Safety Concerns. ADL PLOF Comments Pt. verbalizes that previous to this current hospitalization, pt. was able to ambulate herself in [facility], complete her own ADLs, and empty her own colostomy bag. Self Care: Unknown DME/Equipment Comments Walker OT Current Status Subjective Pt. reports discomfort with mobility, but is agreeable to treatment. Mental Status/Objective Patient Orientation: Person, Place Current Glasses/Contacts: Yes Upper Extremity ROM WFL ADL-Treatment Eating (QC): 5 On/Off Footwear (QC): 2 Other Treatments Pt. agrees to work with OT. Pt. is able to transfer self supine-sit with SBA. She is only able to tolerate sitting on EOB approximately 2 minutes. She is unable to doff/don slipper socks at this time. Reports that she is having no di fficulty with feeding self. Pt. transfers back to supine, and is able to position self in bed. All needs met. Education OT Patient Education: Correct positioning, Modified ADL techniques, Progress toward Goal/Update tx plan, Purpose of tx/functional activities, Reviewed precautions, Rehab process Teaching Recipient: Patient Teaching Methods: Demonstration, Discussion Response to Teaching: Verbalize Understanding, Return Demonstration OT Business Analysis Professional Goals Business Analysis Professional Goals Time Frame: Feb 04, 2021 Eating (QC): 6 Oral Hygiene (QC): 6 Toileting Hygiene (QC): 6 Shower/Bathe Self (QC): 4 Upper Body Dressing (QC): 6 Lower Body Dressing (QC): 6 On/Off Footwear (QC): 6 Additional Goals: 1-Demonstrate ADL Tasks, 2-Verbalize Understanding, 3- ImproveStrength/[place] 1=Demonstrate adherence to instructed precautions during ADL tasks. 2=Patient will verbalize/demonstrate understanding of assistive devices/modifications for ADL. 3=Patient will improve strength/tolerance for activity to enable patient to perform ADL's. OT Education/Plan Problem List/Assessment Assessment: Decreased Activ Tolerance, Impaired I ADL's, Impaired Self-Care Skills Discharge Recommendations Plan/Recommendations: Continue POC Therapy Discharge Recommendati: Post Acute OT Treatment Plan/Plan of Care Treatment,Training & Education: Yes Patient would benefit from OT for education, treatment and training to promote independence in ADL's, mobility, safety and/or upper extremity function for ADL's. Plan of Care: ADL Retraining, Functional Mobility, UE Funct Exercise/Act Treatment Duration: Feb 04, 2021 Frequency: 5 times per week Estimated Hrs Per Day: .25 hour per day Agreement: Yes Rehab Potential: Fair Time/GCodes Start Time: 14:40 Stop Time: 14:50 Total Time Billed (hr/min): 10 Billed Treatment Time 1, KOKI MCGEE OT Jan 21, 2021 15:31
[2021-01-21] MEDS: DOCUSATE SODIUM 100 MG (COLACE) CAP PO SCH (20:58)
[2021-01-21] MEDS: meTOprolol TARTRATE 25 MG (LOPRESSOR) TABLET PO SCH (20:59)
[2021-01-21] MEDS: polyethylene glycoL POWDER 17 GM (MIRALAX) PACK PO SCH (20:59)
[2021-01-21] MEDS: PANTOPRAZOLE 40 MG (PROTONIX) TAB PO SCH (20:59)
[2021-01-21] MEDS: METOCLOPRAMIDE 5 MG (REGLAN) TAB PO SCH (20:59)
[2021-01-21] MEDS: MONTELUKAST 10 MG (SINGULAIR) TAB PO SCH (20:59)
[2021-01-21] MEDS: SENNA W/DOCUSATE (SENOKOT S) TABLET PO SCH (20:59)
[2021-01-21] MEDS: ENOXAPARIN 40 MG/0.4 ML (LOVENOX) SYR SQ SCH (21:00)
[2021-01-21] MEDS ORDERED: DAKIN'S 1/4 STRENGTH (0.125%) 473 ML BTL TOP SCH (21:00)
[2021-01-21] MEDS ORDERED: RT--FLUTICASONE/SALMETEROL 113-14 (AIRDUO RespiCLICK) IH ONE (21:08)
[2021-01-21] MEDS: RT--FLUTICASONE/SALMETEROL 232-14 (AIRDUO RespiCLICK) IH SCH (21:18)
[2021-01-21] MEDS: SODIUM CHLORIDE 1 GM TABLET PO SCH (21:19)
[2021-01-22 05:32] LABS: BASOPHILS % (AUTO) 0 % (0-10); EOSINOPHILS # (AUTO) 0.2 10^3/uL (0.0-0.3); EOSINOPHILS % (AUTO) 2 % (0-10); HEMATOCRIT 27 % (35-52); HEMOGLOBIN 8.6 g/dL (11.5-16.0); LYMPHOCYTES # (AUTO) 2.3 10^3/uL (1.0-4.0); LYMPHOCYTES % (AUTO) 18 % (12-44); MEAN CORPUSCULAR HEMOGLOBIN 29 pg (25-34); MEAN CORPUSCULAR HGB CONC 32 g/dL (32-36); MEAN CORPUSCULAR VOLUME 92 fL (80-99); MONOCYTES % (AUTO) 8 % (0-12); NEUTROPHILS % (AUTO) 71 % (42-75); PLATELET COUNT 275 10^3/uL (130-400); WHITE BLOOD COUNT 12.7 10^3/uL (4.3-11.0)
[2021-01-22 05:46] LABS: ALBUMIN 2.3 GM/DL (3.2-4.5); CHLORIDE 97 MMOL/L (98-107); SODIUM 126 MMOL/L (135-145)
[2021-01-22] MEDS: BETHANECHOL 25 MG (URECHOLINE) TAB PO SCH ×3 (05:46→17:58)
[2021-01-22] MEDS: SUCRALFATE 1 GM (CARAFATE) TAB PO SCH ×4 (05:46→21:12)
[2021-01-22] MEDS: KCL 20 MEQ TAB (K-DUR) PO SCH (05:46)
[2021-01-22 05:47] LABS: CALCIUM 8.3 MG/DL (8.5-10.1)
[2021-01-22] MEDS: MEROPENEM 500 MG/SWFI 10 ML IV PUSH IV SCH ×6 (05:47→21:19)
[2021-01-22 05:48] LABS: GLUCOSE 101 MG/DL (70-105); TOTAL PROTEIN 4.9 GM/DL (6.4-8.2)
[2021-01-22 05:49] LABS: CARBON DIOXIDE 22 MMOL/L (21-32)
[2021-01-22 05:50] LABS: BILIRUBIN,TOTAL 0.4 MG/DL (0.1-1.0)
[2021-01-22 05:52] LABS: ALKALINE PHOSPHATASE 70 U/L (40-136); CREATININE SERUM 0.69 MG/DL (0.60-1.30); GFR ESTIMATED > 60
[2021-01-22 05:53] LABS: BUN/CREATININE RATIO 12
[2021-01-22 05:55] LABS: ALANINE AMINOTRANSFERASE 7 U/L (0-55)
[2021-01-22] MEDS: DAKIN'S 1/4 STRENGTH (0.125%) 473 ML BTL TOP SCH ×2 (09:00→21:13)
[2021-01-22] MEDS ORDERED: NON-FORMULARY MEDICATION 1 EA EA (Umeclidinium Brm/Vilanterol Tr (Anoro Ellipta 62.5-25 Mc IH SCH (09:00)
--- NOTE | 2021-01-22 09:38 | Physical Therapy Daily Note ---
PT Daily Note-Current Subjective Patient supine in bed pre tx. Patient report 6/10 pain in her abdomen. Patient consents to PT. Appearance Patient left supine in bed, with call button nearby, nurse in room. Mental Status Patient Orientation: Person, Place, Time, Normal For Age Attachments: Oxygen, Lam Catheter Transfers SCALE: Activities may be completed with or without assistive devices. 0-Ekenrytoks-upqvkgt completes the activity by him/herself with no assistance from a helper. 5-Set-up or Clean-up Assistance-helper sets up or cleans up; patient completes activity. [place] assists only prior to or following the activity. 4-Supervision or Touching Assistance-helper provides verbal cues and/or touching/steadying and/or contact guard assistance as patient completes activity. Assistance may be provided throughout the activity or intermittently. 3-Partial/Moderate Assistance-helper does LESS THAN HALF the effort. [place] lifts, holds or supports trunk or limbs, but provides less than half the effort. 2-Substantial/Maximal Assistance-helper does MORE THAN HALF the effort. [place] lifts or holds trunk or limbs and provides more than half the effort. 1-Vlcpjjhae-huycfp does ALL the effort. Patient does none of the effort to complete the activity. Or, the assistance of 2 or more helpers is required for the patient to complete the activity. If activity was not attempted, code reason: 7-Patient Refused. 9-Not Applicable-not attempted and the patient did not perform the activity before the current illness, exacerbation or injury. 10-Not Attempted due to Environmental Limitations-(lack of equipment, weather restraints, etc.). 88-Not Attempted due to Medical Conditions or Safety Concerns. Roll Left & Right (QC): 6 Sit to Lying (QC): 6 Lying to Sitting/Side of Bed(Q: 4 (CGA) Sit to Stand (QC): 4 (CGA) steady with transfers, but slow Gait Training Does the Patient Walk?: Yes Distance: 150' Walk 10 feet (QC): 4 (CGA) Walk 50 ft with 2 Turns(QC): 4 (CGA) Walk 150 ft (QC): 4 (CGA) Gait Assistive Device: FWW Slow but steady with ambulation Treatments ambulation, transfers Assessment Current Status: Fair Progress Patient will benefit from PT to improve functional mobility and endurance for safe return home. Patient very fatigued after ambulation, wanted to go back to bed. PT Fire Officer Goals Skilled Nursing Goals PT Skilled Nursing Goals Time Frame: Jan 31, 2021 Roll Left & Right (QC): 6 Sit to Lying (QC): 6 Lying-Sitting on Side/Bed(QC): 6 Sit to Stand (QC): 6 Chair/Mdy-bh-Hstpa Xfer(QC): 6 Toilet Transfer (QC): 6 Does the Patient Walk: Yes Walk 10 feet (QC): 6 Walk 50ft with 2 Turns (QC): 6 Walk 150 ft (QC): 6 PT Plan Problem List Problem List: Activity Tolerance, Functional Strength, Safety, Balance, Gait, Transfer, Bed Mobility, ROM Treatment/Plan Treatment Plan: Continue Plan of Care Treatment Plan: Bed Mobility, Education, Functional Activity [place], Functional Strength, Gait, Safety, Therapeutic Exercise, Transfers Treatment Duration: Jan 31, 2021 Frequency: 6 times per week Estimated Hrs Per Day: .25 hour per day Patient and/or Family Agrees t: Yes Safety Risks/Education Patient Education: Gait Training, Transfer Techniques, Correct Positioning, Safety Issues Teaching Recipient: Patient Teaching Methods: Demonstration, Discussion Response to Teaching: Verbalize Understanding, Return Demonstration Time/GCodes Time In: 0855 Time Out: 0909 Total Billed Treatment Time: 14 Total Billed Treatment 1 visit: FA: RAMOS BECK PT Jan 22, 2021 09:38
[2021-01-22] MEDS: NICOTINE 7 MG (NICODERM) PATCH TD SCH (09:40)
[2021-01-22] MEDS: NICOTINE PATCH REMOVAL TP SCH (09:40)
[2021-01-22] MEDS: METOCLOPRAMIDE 5 MG (REGLAN) TAB PO SCH ×2 (09:45→21:12)
[2021-01-22] MEDS: amLODIPine 10 MG (NORVASC) TAB PO SCH (09:45)
[2021-01-22] MEDS: meTOprolol TARTRATE 25 MG (LOPRESSOR) TABLET PO SCH ×2 (09:45→21:12)
[2021-01-22] MEDS: SENNA W/DOCUSATE (SENOKOT S) TABLET PO SCH ×2 (09:55→21:12)
[2021-01-22] MEDS: DOCUSATE SODIUM 100 MG (COLACE) CAP PO SCH ×2 (09:55→21:12)
[2021-01-22] MEDS: TAMSULOSIN 0.4 MG (FLOMAX) CAP PO SCH (09:55)
[2021-01-22] MEDS: lisINopril 20 MG (PRINIVIL) TABLET PO SCH (09:55)
[2021-01-22] MEDS: LORATADINE (CLARITIN) 10 MG TAB PO SCH (09:55)
[2021-01-22] MEDS: PANTOPRAZOLE 40 MG (PROTONIX) TAB PO SCH ×2 (09:56→21:12)
[2021-01-22] MEDS: SODIUM CHLORIDE 1 GM TABLET PO SCH ×2 (09:56→21:20)
[2021-01-22] MEDS: polyethylene glycoL POWDER 17 GM (MIRALAX) PACK PO SCH ×2 (09:56→21:12)
[2021-01-22] MEDS: FLUTICASONE NASAL SPRAY (FLONASE) 16 GM BTL NS SCH (09:57)
[2021-01-22] MEDS: RT--FLUTICASONE/SALMETEROL 232-14 (AIRDUO RespiCLICK) IH SCH ×2 (10:45→18:56)
[2021-01-22] MEDS: UMECLIDINIUM BROMIDE (INCRUSE ELLIPTA) 7'S IH SCH (10:46)
--- NOTE | 2021-01-22 11:09 | Occupational Ther Daily Note ---
OT Current Status-Daily Note Subjective Pt AxO, agrees to tx. RT present start of session. Pt states 5/10 pain in abdomen supine in bed, increases to 6/10 during activity. Mental Status/Objective Patient Orientation: Person, Place, Situation Attachments: Drains, Lam Catheter, Oxygen (3L) ADL-Treatment Therapy Code Descriptions/Definitions Functional [place] Measure: 0=Not Assessed/NA 4=Minimal Assistance 1=Total Assistance 5=Supervision or Setup 2=Maximal Assistance 6=Modified [place] 3=Moderate Assistance 7=Complete IndependenceSCALE: Activities may be completed with or without assistive devices. 8-Ulngpnoibb-qjtmnpo completes the activity by him/herself with no assistance from a helper. 5-Set-up or Clean-up Assistance-helper sets up or cleans up; patient completes activity. [place] assists only prior to or following the activity. 4-Supervision or Touching Assistance-helper provides verbal cues and/or touching/steadying and/or contact guard assistance as patient completes activity. Assistance may be provided throughout the activity or intermittently. 3-Partial/Moderate Assistance-helper does LESS THAN HALF the effort. [place] lifts, holds or supports trunk or limbs, but provides less than half the effort. 2-Substantial/Maximal Assistance-helper does MORE THAN HALF the effort. [place] lifts or holds trunk or limbs and provides more than half the effort. 6-Qhzgxpkbk-kjruah does ALL the effort. Patient does none of the effort to complete the activity. Or, the assistance of 2 or more helpers is required for the patient to complete the activity. If activity was not attempted, code reason: 7-Patient Refused. 9-Not Applicable-not attempted and the patient did not perform the activity before the current illness, exacerbation or injury. 10-Not Attempted due to Environmental Limitations-(lack of equipment, weather restraints, etc.). 88-Not Attempted due to Medical Conditions or Safety Concerns. Eating (QC): 6 (NPO at this time. However, nursing agrees to dampened sponge, completes with IND when handed to pt. ) Other Treatment Pt bed mob to EOB with SBA. Pt sit to stand with SBA and ambulates through room (door to EOB 4x) without RB. Sits EOB for rest. Stands to complete balance task with BUE alternating shoulder flexion while standing to prepare for increased functional balance/ reaching tasks. Pt completes ~30x and rests. Pt expresses an increase in pain and dry mouth. Returns to bed with SBA, pt's nurse agrees to dampened sponge. Pt is given one and completes IND. Pt left in bed with all needs met, call light in reach. Procedure planned for this date. Education OT Patient Education: Exercise program, Home exercise program, Purpose of tx/functional activities, Safety issues Teaching Recipient: Patient Teaching Methods: Demonstration, Discussion Response to Teaching: Verbalize Understanding, Return Demonstration OT Jail Goals Case Making Machine Operator Goals Time Frame: Feb 04, 2021 Eating (QC): 6 Oral Hygiene (QC): 6 Toileting Hygiene (QC): 6 Shower/Bathe Self (QC): 4 Upper Body Dressing (QC): 6 Lower Body Dressing (QC): 6 On/Off Footwear (QC): 6 Additional Goals: 1-Demonstrate ADL Tasks, 2-Verbalize Understanding, 3- ImproveStrength/Palak 1=Demonstrate adherence to instructed precautions during ADL tasks. 2=Patient will verbalize/demonstrate understanding of assistive devices/modifications for ADL. 3=Patient will improve strength/tolerance for activity to enable patient to perform ADL's. OT Education/Plan Discharge Recommendations Plan/Recommendations: Continue POC Treatment Plan/Plan of Care Patient would benefit from OT for education, treatment and training to promote independence in ADL's, mobility, safety and/or upper extremity function for ADL's. Plan of Care: ADL Retraining, Functional Mobility, UE Funct Exercise/Act Treatment Duration: Feb 04, 2021 Frequency: 5 times per week Estimated Hrs Per Day: .25 hour per day Agreement: Yes Rehab Potential: Fair Time/GCodes Start Time: 10:42 Stop Time: 11:02 Total Time Billed (hr/min): 20 Billed Treatment Time 1, EX (20) AMY PARISH OTR Jan 22, 2021 11:09
--- NOTE | 2021-01-22 11:35 | Progress Note ---
SANTY FAUSTIN, MED STUDENT 01/22/21 1135: Subjective Subjective/Events-last exam Doing well this morning, denies abdominal pain. Is ready for her surgical procedure this morning. Focused Exam Lactate Level 01/20/21 02:52: Lactic Acid Level 1.57 Time of Focused Exam: 04:30 Respiratory: Lungs Clear, Normal Breath Sounds, No Accessory Muscle Use, No Respiratory Distress Objective Exam Last Set of Vital Signs Vital Signs Date Time Temp Pulse Resp B/P (MAP) Pulse Ox O2 Delivery O2 Flow Rate FiO2 01/22/21 10:45 92 Nasal Cannula 3.00 01/22/21 08:00 37.1 88 18 126/67 (86) 01/20/21 07:25 28 Capillary Refill : Less Than 3 Seconds I&O Intake and Output 01/22/21 00:00 Intake Total 1957.5 ml Output Total 2570 ml Balance -612.5 ml Intake Oral 685 ml IV Total 1272.5 ml Output Urine Total 1280 ml Stool Total 1280 ml Drainage Total 10 ml General: Alert, Oriented X3, Cooperative HEENT: Atraumatic, EOMI Lungs: Clear to Auscultation, Normal Air Movement Heart: Regular Rate Abdomen: Normal Bowel Sounds, Soft, Other (Abdominal drain present w/ output, abdomen has gauze wrapping in place) Extremities: No Clubbing, No Cyanosis, No Edema Skin: No Rashes, No Breakdown Neuro: Normal Speech, Normal Tone Psych/Mental Status: Mental Status NL, Mood NL Results Lab Laboratory Tests 01/22/21 05:05: White Blood Count 12.7H, Red Blood Count 2.97L, Hemoglobin 8.6L, Hematocrit 27L, Mean Corpuscular Volume 92, Mean Corpuscular Hemoglobin 29, Mean Corpuscular Hemoglobin Concent 32, Red Cell Distribution Width 14.6H, Platelet Count 275, Mean Platelet Volume 9.0, Immature Granulocyte % (Auto) 1, Neutrophils (%) (Auto) 71, Lymphocytes (%) (Auto) 18, Monocytes (%) (Auto) 8, Eosinophils (%) (Auto) 2, Basophils (%) (Auto) 0, Neutrophils # (Auto) 9.0H, Lymphocytes # (Auto) 2.3, Monocytes # (Auto) 1.0, Eosinophils # (Auto) 0.2, Basophils # (Auto) 0.0, Immature Granulocyte # (Auto) 0.1, Sodium Level 126L, Potassium Level 4.0, Chloride Level 97L, Carbon Dioxide Level 22, Anion Gap 7, Blood Urea Nitrogen 8, Creatinine 0.69, Estimat Glomerular Filtration Rate > 60, BUN/Creatinine Ratio 12, Glucose Level 101, Calcium Level 8.3L, Corrected Calcium 9.7, Total Bilirubin 0.4, Aspartate Amino Transf (AST/SGOT) 8, Alanine Aminotransferase (ALT/SGPT) 7, Alkaline Phosphatase 70, B-Type Natriuretic Peptide 103.3H, Total Protein 4.9L, Albumin 2.3L Microbiology 01/20/21 MRSA Screen - Final, Complete MRSA not isolated 01/20/21 Gram Stain - Final, Resulted 01/20/21 Body Fluid Culture - Preliminary, Resulted Pseudomonas aeruginosa 01/20/21 Urine Culture - Final, Complete NO GROWTH 01/20/21 Blood Culture - Preliminary, Resulted No growth Assessment/Plan Assessment/Plan Assess & Plan/Chief Complaint Bere Pinto is a 75 y/o F presenting for worsening abdominal pain 2/2 to abdominal abscess complicated by sepsis Sepsis - Vitals stable - Currently on vanc and meropenem - CXR demonstrates worsening left pneumonia - CT scan shows abdominal fluid collection concerning for seroma vs abscess vs pseudocyst Plan: > Surgical consult w/ incision and drainage > continue abx Pancreatitis - Abdominal pain resolved Plan: > Hold fluids for hyponatremia > Continue pain management as needed Hyponatremia - Na 126 this morning, 128 yesterday Plan: > Salt tablets > Hold fluids Anemia - Hgb 8.6 this morning, 9.7 yesterday, 11.3 the day before Plan: > Continue to monitor > Start PPI Dispo: Continue floor care GENNA MARTÍNEZ DO 01/23/21 0526: Subjective Date Seen by a Provider: Jan 22, 2021 Time Seen by a Provider: 10:00 Subjective/Events-last exam Pt doing a lot better CT-guided drain will be placed at 1400 today WBC 12.7 Hgb 8.6 Sodium level 126 from IV fluids Have her back on fluid restriction and salt tablets In good spirits otherwise Review of Systems General: Fatigue, Malaise Pulmonary: Dyspnea Gastrointestinal: Abdominal Pain Objective Exam General: Alert, Oriented X3, Cooperative, No Acute Distress Lungs: Clear to Auscultation Heart: Regular Rate Neuro: Normal Gait, Normal Speech, Strength at 5/5 X4 Ext, Normal Tone Assessment/Plan Assessment/Plan Assess & Plan/Chief Complaint CT guided drain placement Monitor labs Supervisory-Addendum Brief Verification & Attestation Participated in pt care: history, MDM, physical Personally performed: exam, history, MDM, supervision of care Care discussed with: Medical Student Procedures: n/a Results interpretation: Verified all documentation Verification and Attestation of Medical Student E/M Service A medical student performed and documented this service in my presence. I reviewed and verified all information documented by the medical student and made modifications to such information, when appropriate. I personally performed the physical exam and medical decision making. Genna Martínez, Jan 23, 2021,05:26 SANTY FAUSTIN, MED STUDENT Jan 22, 2021 11:35 GENNA MARTÍNEZ DO Jan 23, 2021 05:26
[2021-01-22] MEDS ORDERED: MIDAZOLAM 2 MG/2 ML (VERSED) VIAL IVP ONE (14:15)
[2021-01-22] MEDS ORDERED: LIDOCAINE 1% INJ 20 ML 20 ML VIAL INJ ONE (14:15)
[2021-01-22] MEDS ORDERED: fentaNYL INJ 100 MCG/2 ML AMP IVP ONE (14:15)
--- NOTE | 2021-01-22 16:02 | Pre-Op Note & Conscious Sedat ---
Pre-Operative Progress Note H&P Reviewed The H&P was reviewed, patient examined and no changes noted. Date H&P Reviewed: Jan 22, 2021 Time H&P Reviewed: 13:00 Pre-Op Diagnosis: abdominal abscess Conscious Sedation Pre-Proced Time 13:00 ASA Score 2 For ASA 3 and 4: Consider anesthesia and medical clearance. Also, for patients with a history of failed moderate sedation consider anesthesia. Airway Lungs Heart ASA score ASA 1: a normal healthy patient ASA 2: a patient with a mild systemic disease (mid diabetes, controlled hypertension, obesity ASA 3: a patient with a severe systemic disease that limits activity (angina, COPD, prior Myocardial infarction) ASA 4: a patient with an incapacitating disease that is a constant threat to life (CHF, renal failure) ASA 5: a moribund patient not expected to survive 24 hrs. (ruptured aneurysm) ASA 6: a declared brain- patient whose organs are being harvested. For emergent operations, add the letter E after the classification Mallampati Classification Grade 2 Sedation Plan Analgesia, Amnesia, Plan communicated to team members, Discussed options with p atient/fam, Discussed risks with patient/fam The patient is an appropriate candidate to undergo the planned procedure, sedation, and anesthesia. The patient immediately re-assessed prior to indication. PIPER PATEL MD Jan 22, 2021 16:02
--- NOTE | 2021-01-22 16:19 | Diagnostic Imaging Report ---
INDICATION: Abdominal fluid collection. Patient presents for CT-guided drainage. TECHNIQUE: All CT scans use one or more of the following dose optimizing techniques: automated exposure control, MA and/or KvP adjustment based on patient size and exam type or iterative reconstruction. Patient brought to the CT suite placed on table in supine position. Axial imaging through the abdomen was performed to evaluate appropriate entry site. Procedure was performed utilizing radiology nursing and constant patient monitoring. Right abdomen was prepped and draped in usual sterile fashion. Small amount of 1% lidocaine was utilized for local anesthesia. Fluid collection in the right para midline lower abdomen was percutaneously accessed from the right flank utilizing a 15 cm Yueh needle. Yueh needle was exchanged over an 0.35 guidewire. A 6-Somali, 8-Somali and 10-Somali dilators were used. A 10.5-Somali all-purpose pigtail drain was advanced over the guidewire with the loop formed within the collection. The catheter was placed to a Tyrel drain. Patient tolerated the procedure well and left the department in stable condition. IMPRESSION: Successful CT-guided all-purpose drain placement into the midline abdominal fluid collection. Dictated by: Dictated on workstation # [id number]
--- NOTE | 2021-01-22 16:44 | Progress Note ---
Subjective Date Seen by a Provider: Jan 22, 2021 Time Seen by a Provider: 16:00 Subjective/Events-last exam doing well. perc drain placed. no fever/chills. wbc trending to normal. Focused Exam Lactate Level 01/20/21 02:52: Lactic Acid Level 1.57 Time of Focused Exam: 04:30 Objective Exam Vital Signs Date Time Temp Pulse Resp B/P (MAP) Pulse Ox O2 Delivery O2 Flow Rate FiO2 01/22/21 15:36 36.4 89 21 124/56 (78) 97 Nasal Cannula 3.00 01/22/21 12:00 36.6 89 20 145/73 (97) 96 Nasal Cannula 3.00 01/22/21 10:45 92 Nasal Cannula 3.00 01/22/21 09:00 96 Nasal Cannula 3.00 01/22/21 08:00 37.1 88 18 126/67 (86) 96 Nasal Cannula 3.00 01/22/21 05:26 83 20 114/65 (81) 96 Nasal Cannula 3.00 01/22/21 00:00 37.5 87 18 115/65 (82) 97 Nasal Cannula 3.00 01/21/21 21:21 94 Nasal Cannula 4.00 01/21/21 21:00 Nasal Cannula 3.00 01/21/21 20:00 37.6 121 18 133/60 (84) 91 Nasal Cannula 3.00 I & O 01/22/21 07:00 Intake Total 1957.5 ml Output Total 1985 ml Balance -27.5 ml Capillary Refill : Less Than 3 Seconds General Appearance: No Apparent Distress HEENT: PERRL/EOMI Neck: Full Range of Motion Respiratory: Chest Non Tender, Rhonci, Wheezing Cardiovascular: Regular Rate, Rhythm Gastrointestinal: normal bowel sounds, soft, tenderness Extremity: Normal Capillary Refill Neurologic/Psychiatric: Alert, Oriented x3 Skin: Normal Color Results Lab Laboratory Tests 01/22/21 05:05: White Blood Count 12.7H, Red Blood Count 2.97L, Hemoglobin 8.6L, Hematocrit 27L, Mean Corpuscular Volume 92, Mean Corpuscular Hemoglobin 29, Mean Corpuscular Hemoglobin Concent 32, Red Cell Distribution Width 14.6H, Platelet Count 275, Mean Platelet Volume 9.0, Immature Granulocyte % (Auto) 1, Neutrophils (%) (Auto) 71, Lymphocytes (%) (Auto) 18, Monocytes (%) (Auto) 8, Eosinophils (%) (Auto) 2, Basophils (%) (Auto) 0, Neutrophils # (Auto) 9.0H, Lymphocytes # (Auto) 2.3, Monocytes # (Auto) 1.0, Eosinophils # (Auto) 0.2, Basophils # (Auto) 0.0, Immature Granulocyte # (Auto) 0.1, Sodium Level 126L, Potassium Level 4.0, Chloride Level 97L, Carbon Dioxide Level 22, Anion Gap 7, Blood Urea Nitrogen 8, Creatinine 0.69, Estimat Glomerular Filtration Rate > 60, BUN/Creatinine Ratio 12, Glucose Level 101, Calcium Level 8.3L, Corrected Calcium 9.7, Total Bilirubin 0.4, Aspartate Amino Transf (AST/SGOT) 8, Alanine Aminotransferase (ALT/SGPT) 7, Alkaline Phosphatase 70, B-Type Natriuretic Peptide 103.3H, Total Protein 4.9L, Albumin 2.3L Microbiology 01/20/21 MRSA Screen - Final, Complete MRSA not isolated 01/20/21 Gram Stain - Final, Resulted 01/20/21 Body Fluid Culture - Preliminary, Resulted Pseudomonas aeruginosa 01/20/21 Urine Culture - Final, Complete NO GROWTH 01/20/21 Blood Culture - Preliminary, Resulted No growth Assessment/Plan Assessment/Plan Assess & Plan/Chief Complaint intraabdominal abscess. image guided drain placement. cont IV abx. monitor labs. MICHAEL XIONG MD Jan 22, 2021 16:44
[2021-01-22] MEDS: MONTELUKAST 10 MG (SINGULAIR) TAB PO SCH (21:12)
[2021-01-22] MEDS: ENOXAPARIN 40 MG/0.4 ML (LOVENOX) SYR SQ SCH (21:13)
[2021-01-23] MEDS: BETHANECHOL 25 MG (URECHOLINE) TAB PO SCH ×3 (06:08→16:54)
[2021-01-23] MEDS: SUCRALFATE 1 GM (CARAFATE) TAB PO SCH ×4 (06:08→19:59)
[2021-01-23] MEDS: KCL 20 MEQ TAB (K-DUR) PO SCH (06:08)
[2021-01-23] MEDS: MEROPENEM 500 MG/SWFI 10 ML IV PUSH IV SCH ×6 (06:08→21:53)
[2021-01-23 06:13] LABS: BASOPHILS % (AUTO) 1 % (0-10); EOSINOPHILS # (AUTO) 0.3 10^3/uL (0.0-0.3); EOSINOPHILS % (AUTO) 3 % (0-10); HEMATOCRIT 25 % (35-52); LYMPHOCYTES # (AUTO) 1.9 10^3/uL (1.0-4.0); LYMPHOCYTES % (AUTO) 22 % (12-44); MEAN CORPUSCULAR HEMOGLOBIN 29 pg (25-34); MEAN CORPUSCULAR HGB CONC 32 g/dL (32-36); MEAN CORPUSCULAR VOLUME 90 fL (80-99); MEAN PLATELET VOLUME 9.1 fL (9.0-12.2); MONOCYTES # (AUTO) 0.9 10^3/uL (0.0-1.0); MONOCYTES % (AUTO) 11 % (0-12); NEUTROPHILS # (AUTO) 5.3 10^3/uL (1.8-7.8); NEUTROPHILS % (AUTO) 63 % (42-75); PLATELET COUNT 277 10^3/uL (130-400); WHITE BLOOD COUNT 8.4 10^3/uL (4.3-11.0)
[2021-01-23 06:51] LABS: ALANINE AMINOTRANSFERASE 10 U/L (0-55); ALBUMIN 2.2 GM/DL (3.2-4.5); ALKALINE PHOSPHATASE 67 U/L (40-136); BILIRUBIN,TOTAL 0.4 MG/DL (0.1-1.0); BUN/CREATININE RATIO 10; CALCIUM 8.2 MG/DL (8.5-10.1); CARBON DIOXIDE 22 MMOL/L (21-32); CHLORIDE 99 MMOL/L (98-107); CREATININE SERUM 0.62 MG/DL (0.60-1.30); GFR ESTIMATED > 60; GLUCOSE 114 MG/DL (70-105); POTASSIUM 3.7 MMOL/L (3.6-5.0); SODIUM 130 MMOL/L (135-145); TOTAL PROTEIN 4.9 GM/DL (6.4-8.2)
[2021-01-23] MEDS: UMECLIDINIUM BROMIDE (INCRUSE ELLIPTA) 7'S IH SCH (06:54)
[2021-01-23] MEDS: RT--FLUTICASONE/SALMETEROL 232-14 (AIRDUO RespiCLICK) IH SCH ×2 (06:54→21:26)
[2021-01-23] MEDS: amLODIPine 10 MG (NORVASC) TAB PO SCH (08:16)
[2021-01-23] MEDS: TAMSULOSIN 0.4 MG (FLOMAX) CAP PO SCH (08:16)
[2021-01-23] MEDS: METOCLOPRAMIDE 5 MG (REGLAN) TAB PO SCH ×2 (08:16→19:59)
[2021-01-23] MEDS: LORATADINE (CLARITIN) 10 MG TAB PO SCH (08:16)
[2021-01-23] MEDS: PANTOPRAZOLE 40 MG (PROTONIX) TAB PO SCH ×2 (08:16→19:59)
[2021-01-23] MEDS: DOCUSATE SODIUM 100 MG (COLACE) CAP PO SCH ×2 (08:17→19:59)
[2021-01-23] MEDS: SODIUM CHLORIDE 1 GM TABLET PO SCH ×2 (08:17→19:59)
[2021-01-23] MEDS: lisINopril 20 MG (PRINIVIL) TABLET PO SCH (08:17)
[2021-01-23] MEDS: NICOTINE 7 MG (NICODERM) PATCH TD SCH (08:17)
[2021-01-23] MEDS: FLUTICASONE NASAL SPRAY (FLONASE) 16 GM BTL NS SCH (08:17)
[2021-01-23] MEDS: meTOprolol TARTRATE 25 MG (LOPRESSOR) TABLET PO SCH ×2 (08:17→19:59)
[2021-01-23] MEDS: SENNA W/DOCUSATE (SENOKOT S) TABLET PO SCH ×2 (08:17→20:02)
[2021-01-23] MEDS: DAKIN'S 1/4 STRENGTH (0.125%) 473 ML BTL TOP SCH ×2 (08:18→20:06)
[2021-01-23] MEDS: polyethylene glycoL POWDER 17 GM (MIRALAX) PACK PO SCH ×2 (08:18→20:02)
[2021-01-23] MEDS: NICOTINE PATCH REMOVAL TP SCH (08:27)
--- NOTE | 2021-01-23 10:28 | Physical Therapy Progress Note ---
Therapy Progress Note Patient declined PT secondary to wanting to sleep. PT will attempt later today. 1 ref ([id number]) ROBERT SCHWAB PT Jan 23, 2021 10:28
--- NOTE | 2021-01-23 12:49 | Progress Note ---
MADI HAYWARD MED STUDENT 01/23/21 1249: Subjective Date Seen by a Provider: Jan 23, 2021 Time Seen by a Provider: 10:05 Subjective/Events-last exam Pt resting comfortably in bed eating breakfast, reports increased appetite Pain is well-controlled and percutaneous drain in place functioning properly Denies shortness of breath, chest pain, N/V Hyponatremia improving at 130 WBC trending down at 8.4 Discussed resiliency and encouraged continued process of recovery Focused Exam Time of Focused Exam: 04:30 Objective Exam Last Set of Vital Signs Vital Signs Date Time Temp Pulse Resp B/P (MAP) Pulse Ox O2 Delivery O2 Flow Rate FiO2 01/23/21 11:36 36.5 74 18 104/52 (69) 94 Nasal Cannula 3.00 01/20/21 07:25 28 Capillary Refill : Less Than 3 Seconds I&O Intake and Output 01/23/21 00:00 Intake Total 750 ml Output Total 1880 ml Balance -1130 ml Intake Oral 750 ml Output Urine Total 900 ml Stool Total 680 ml Drainage Total 300 ml General: Alert, Oriented X3, Cooperative, No Acute Distress Neck: Supple, No JVD Lungs: Clear to Auscultation, Normal Air Movement Heart: Regular Rate, No Murmurs Abdomen: Normal Bowel Sounds, Other (percutaneous drain in place as well as ostomy) Extremities: No Edema, Normal Pulses, No Tenderness/Swelling Neuro: Normal Speech Psych/Mental Status: Mental Status NL, Mood NL Results Lab Laboratory Tests 01/23/21 05:26: White Blood Count 8.4, Red Blood Count 2.74L, Hemoglobin 8.0L, Hematocrit 25L, Mean Corpuscular Volume 90, Mean Corpuscular Hemoglobin 29, Mean Corpuscular Hemoglobin Concent 32, Red Cell Distribution Width 14.3, Platelet Count 277, Mean Platelet Volume 9.1, Immature Granulocyte % (Auto) 1, Neutrophils (%) (Auto) 63, Lymphocytes (%) (Auto) 22, Monocytes (%) (Auto) 11, Eosinophils (%) (Auto) 3, Basophils (%) (Auto) 1, Neutrophils # (Auto) 5.3, Lymphocytes # (Auto) 1.9, Monocytes # (Auto) 0.9, Eosinophils # (Auto) 0.3, Basophils # (Auto) 0.0, Immature Granulocyte # (Auto) 0.1, Sodium Level 130L, Potassium Level 3.7, Chloride Level 99, Carbon Dioxide Level 22, Anion Gap 9, Blood Urea Nitrogen 6L, Creatinine 0.62, Estimat Glomerular Filtration Rate > 60, BUN/Creatinine Ratio 10, Glucose Level 114H, Calcium Level 8.2L, Corrected Calcium 9.6, Total Bilirubin 0.4, Aspartate Amino Transf (AST/SGOT) 12, Alanine Aminotransferase (ALT/SGPT) 10, Alkaline Phosphatase 67, Total Protein 4.9L, Albumin 2.2L Microbiology 01/22/21 Gram Stain - Final, Resulted 01/22/21 Anaerobic Culture, Resulted Pending 01/22/21 Surgical Culture - Preliminary, Resulted 01/22/21 Fungal Culture 1, Resulted Pending 01/20/21 MRSA Screen - Final, Complete MRSA not isolated 01/20/21 Gram Stain - Final, Complete 01/20/21 Body Fluid Culture - Final, Complete Pseudomonas aeruginosa Pseudomonas aeruginosa#2 01/20/21 Urine Culture - Final, Complete NO GROWTH 01/20/21 Blood Culture - Preliminary, Resulted No growth Assessment/Plan Assessment/Plan Assess & Plan/Chief Complaint Fwup abdominal abscess complicated by sepsis Sepsis * Vitals stable * Continue IV abx * Drain placed for intra-abdominal abscess and WBC trending downward Hyponatremia * Na 130 this morning, 128 yesterday * Continue fluid restriction and monitor Anemia * Hgb 8.4 this morning, 8.6 yesterday, 9.7 the day before * Monitor and transfuse if below 7 Final Diagnosis Intra-abdominal abscess GENNA MARTÍNEZ DO 01/24/21 0611: Subjective Subjective/Events-last exam Pt doing a lot better Abdominal pain much better since the CT guided drain was placed in the abcess Sodium level 130 Checked meds and labs DC planned for tomorrow Review of Systems General: Fatigue, Malaise Objective Exam General: Alert, Oriented X3, Cooperative Lungs: Clear to Auscultation Heart: Regular Rate Neuro: Normal Gait Psych/Mental Status: Mental Status NL Assessment/Plan Assessment/Plan Assess & Plan/Chief Complaint DC planned for tomorrow PT OT Supervisory-Addendum Brief Verification & Attestation Participated in pt care: history, MDM, physical Personally performed: exam, history, MDM, supervision of care Care discussed with: Medical Student Procedures: n/a Results interpretation: Verified all documentation Verification and Attestation of Medical Student E/M Service A medical student performed and documented this service in my presence. I reviewed and verified all information documented by the medical student and made modifications to such information, when appropriate. I personally performed the physical exam and medical decision making. Genna Martínez, Jan 24, 2021,06:09 MADI HAYWARD MED STUDENT Jan 23, 2021 12:49 GENNA MARTÍNEZ DO Jan 24, 2021 06:11
--- NOTE | 2021-01-23 13:43 | Physical Therapy Progress Note ---
Therapy Progress Note Patient up with OT ambulating in hallway. No treatment rendered. Will attempt in ROBERT Méndez PT Jan 23, 2021 13:43
--- NOTE | 2021-01-23 14:11 | Occupational Ther Daily Note ---
OT Current Status-Daily Note Subjective Pt sleeping in bed, woke to name. Pt agrees to therapy. No c/o pain at this time. Mental Status/Objective Patient Orientation: Person, Place, Time, Situation Attachments: Colostomy/Ileostomy, Drains (2), IV, Oxygen (3L) ADL-Treatment Supine <--> EOB independent. Ambulated to bathroom using FWW independent. Completed toileting and emptied colostomy bag and cleaned independently. Therapy Code Descriptions/Definitions Functional [place] Measure: 0=Not Assessed/NA 4=Minimal Assistance 1=Total Assistance 5=Supervision or Setup 2=Maximal Assistance 6=Modified [place] 3=Moderate Assistance 7=Complete IndependenceSCALE: Activities may be completed with or without assistive devices. 4-Ikxumjslcw-japdxrz completes the activity by him/herself with no assistance from a helper. 5-Set-up or Clean-up Assistance-helper sets up or cleans up; patient completes activity. [place] assists only prior to or following the activity. 4-Supervision or Touching Assistance-helper provides verbal cues and/or touching/steadying and/or contact guard assistance as patient completes activity. Assistance may be provided throughout the activity or intermittently. 3-Partial/Moderate Assistance-helper does LESS THAN HALF the effort. [place] lifts, holds or supports trunk or limbs, but provides less than half the effort. 2-Substantial/Maximal Assistance-helper does MORE THAN HALF the effort. [place] lifts or holds trunk or limbs and provides more than half the effort. 6-Haosknxol-pwegjf does ALL the effort. Patient does none of the effort to complete the activity. Or, the assistance of 2 or more helpers is required for the patient to complete the activity. If activity was not attempted, code reason: 7-Patient Refused. 9-Not Applicable-not attempted and the patient did not perform the activity before the current illness, exacerbation or injury. 10-Not Attempted due to Environmental Limitations-(lack of equipment, weather restraints, etc.). 88-Not Attempted due to Medical Conditions or Safety Concerns. Toileting Hygiene (QC): 6 Toilet Transfer (QC): 6 Other Treatment Pt then requested to ambulate in hallway. Pt ambulated using FWW 100' with 1 recovery break. No LOB noted. After therapy, pt sitting in recliner with call light/phone in reach. All needs met in room. OT Senior Care Goals Senior Care Goals Time Frame: Feb 04, 2021 Eating (QC): 6 Oral Hygiene (QC): 6 Toileting Hygiene (QC): 6 Shower/Bathe Self (QC): 4 Upper Body Dressing (QC): 6 Lower Body Dressing (QC): 6 On/Off Footwear (QC): 6 Additional Goals: 1-Demonstrate ADL Tasks, 2-Verbalize Understanding, 3- ImproveStrength/[place]ak 1=Demonstrate adherence to instructed precautions during ADL tasks. 2=Patient will verbalize/demonstrate understanding of assistive devices/modifications for ADL. 3=Patient will improve strength/tolerance for activity to enable patient to perform ADL's. OT Education/Plan Problem List/Assessment Assessment: Decreased Activ Tolerance Discharge Recommendations Plan/Recommendations: Continue POC Treatment Plan/Plan of Care Patient would benefit from OT for education, treatment and training to promote independence in ADL's, mobility, safety and/or upper extremity function for ADL 's. Plan of Care: ADL Retraining, Functional Mobility, UE Funct Exercise/Act Treatment Duration: Feb 04, 2021 Frequency: 5 times per week Estimated Hrs Per Day: .25 hour per day Agreement: Yes Rehab Potential: Fair Time/GCodes Start Time: 13:26 Stop Time: 13:55 Total Time Billed (hr/min): 29 Billed Treatment Time 1 visit-ADL 1 (15 min) FA 1 (14 min) RAIZA BROWNING Jan 23, 2021 14:11
--- NOTE | 2021-01-23 16:04 | Progress Note ---
Subjective Date Seen by a Provider: Jan 23, 2021 Time Seen by a Provider: 16:00 Subjective/Events-last exam doing well. no fever/chills. much less abd pain. Focused Exam Time of Focused Exam: 04:30 Objective Exam Vital Signs Date Time Temp Pulse Resp B/P (MAP) Pulse Ox O2 Delivery O2 Flow Rate FiO2 01/23/21 11:36 36.5 74 18 104/52 (69) 94 Nasal Cannula 3.00 01/23/21 09:00 95 Nasal Cannula 3.00 01/23/21 07:15 36.5 72 20 100/54 (69) 95 Nasal Cannula 3.00 01/23/21 06:54 97 Nasal Cannula 3.00 01/23/21 04:30 36.2 71 18 108/55 (72) 93 Nasal Cannula 3.00 01/23/21 00:00 36.6 79 17 120/68 (85) 99 Nasal Cannula 3.00 01/22/21 21:00 Nasal Cannula 3.00 01/22/21 19:36 36.4 92 18 117/65 (82) 95 Nasal Cannula 3.00 01/22/21 18:57 93 Nasal Cannula 3.00 I & O 01/23/21 07:00 Intake Total 1050 ml Output Total 2480 ml Balance -1430 ml Capillary Refill : Less Than 3 Seconds General Appearance: No Apparent Distress HEENT: PERRL/EOMI Neck: Full Range of Motion Respiratory: Chest Non Tender, Rhonci, Wheezing Cardiovascular: Regular Rate, Rhythm Gastrointestinal: normal bowel sounds, soft Extremity: Normal Capillary Refill Neurologic/Psychiatric: Alert, Oriented x3 Skin: Normal Color Lymphatic: No Adenopathy Results Lab Laboratory Tests 01/23/21 05:26: White Blood Count 8.4, Red Blood Count 2.74L, Hemoglobin 8.0L, Hematocrit 25L, Mean Corpuscular Volume 90, Mean Corpuscular Hemoglobin 29, Mean Corpuscular Hemoglobin Concent 32, Red Cell Distribution Width 14.3, Platelet Count 277, M [place] Platelet Volume 9.1, Immature Granulocyte % (Auto) 1, Neutrophils (%) (Auto) 63, Lymphocytes (%) (Auto) 22, Monocytes (%) (Auto) 11, Eosinophils (%) (Auto) 3, Basophils (%) (Auto) 1, Neutrophils # (Auto) 5.3, Lymphocytes # (Auto) 1.9, Monocytes # (Auto) 0.9, Eosinophils # (Auto) 0.3, Basophils # (Auto) 0.0, Immature Granulocyte # (Auto) 0.1, Sodium Level 130L, Potassium Level 3.7, Chloride Level 99, Carbon Dioxide Level 22, Anion Gap 9, Blood Urea Nitrogen 6L, Creatinine 0.62, Estimat Glomerular Filtration Rate > 60, BUN/Creatinine Ratio 10, Glucose Level 114H, Calcium Level 8.2L, Corrected Calcium 9.6, Total Bilirubin 0.4, Aspartate Amino Transf (AST/SGOT) 12, Alanine Aminotransferase (ALT/SGPT) 10, Alkaline Phosphatase 67, Total Protein 4.9L, Albumin 2.2L Microbiology 01/22/21 Gram Stain - Final, Resulted 01/22/21 Anaerobic Culture - Preliminary, Resulted Culture In Progress 01/22/21 Surgical Culture - Preliminary, Resulted No growth 01/22/21 Fungal Culture 1 - Preliminary, Resulted Culture In Progress 01/20/21 MRSA Screen - Final, Complete MRSA not isolated 01/20/21 Gram Stain - Final, Complete 01/20/21 Body Fluid Culture - Final, Complete Pseudomonas aeruginosa Pseudomonas aeruginosa#2 01/20/21 Urine Culture - Final, Complete NO GROWTH 01/20/21 Blood Culture - Preliminary, Resulted No growth Assessment/Plan Assessment/Plan Assess & Plan/Chief Complaint intraabdominal abscess. image guided drain placement. cont IV abx. monitor labs. MICHAEL XIONG MD Jan 23, 2021 16:04
[2021-01-23] MEDS: MONTELUKAST 10 MG (SINGULAIR) TAB PO SCH (19:59)
[2021-01-23] MEDS: ENOXAPARIN 40 MG/0.4 ML (LOVENOX) SYR SQ SCH (19:59)
[2021-01-24] MEDS: MEROPENEM 500 MG/SWFI 10 ML IV PUSH IV SCH ×2 (05:51)
[2021-01-24] MEDS: BETHANECHOL 25 MG (URECHOLINE) TAB PO SCH ×2 (06:00→13:24)
[2021-01-24] MEDS: SUCRALFATE 1 GM (CARAFATE) TAB PO SCH ×2 (06:00→13:24)
[2021-01-24] MEDS: KCL 20 MEQ TAB (K-DUR) PO SCH (06:00)
[2021-01-24 06:33] LABS: BASOPHILS % (AUTO) 1 % (0-10); EOSINOPHILS # (AUTO) 0.4 10^3/uL (0.0-0.3); EOSINOPHILS % (AUTO) 5 % (0-10); HEMATOCRIT 27 % (35-52); HEMOGLOBIN 8.7 g/dL (11.5-16.0); LYMPHOCYTES # (AUTO) 1.6 10^3/uL (1.0-4.0); LYMPHOCYTES % (AUTO) 23 % (12-44); MEAN CORPUSCULAR HEMOGLOBIN 29 pg (25-34); MEAN CORPUSCULAR HGB CONC 33 g/dL (32-36); MEAN CORPUSCULAR VOLUME 90 fL (80-99); MEAN PLATELET VOLUME 8.6 fL (9.0-12.2); MONOCYTES # (AUTO) 0.7 10^3/uL (0.0-1.0); MONOCYTES % (AUTO) 11 % (0-12); NEUTROPHILS # (AUTO) 4.1 10^3/uL (1.8-7.8); NEUTROPHILS % (AUTO) 59 % (42-75); PLATELET COUNT 265 10^3/uL (130-400); WHITE BLOOD COUNT 6.9 10^3/uL (4.3-11.0)
[2021-01-24 06:50] LABS: ALBUMIN 2.6 GM/DL (3.2-4.5); CHLORIDE 100 MMOL/L (98-107); POTASSIUM 3.9 MMOL/L (3.6-5.0); SODIUM 130 MMOL/L (135-145)
[2021-01-24 06:51] LABS: CALCIUM 8.5 MG/DL (8.5-10.1)
[2021-01-24 06:52] LABS: GLUCOSE 131 MG/DL (70-105)
[2021-01-24 06:53] LABS: TOTAL PROTEIN 5.6 GM/DL (6.4-8.2)
[2021-01-24 06:54] LABS: BILIRUBIN,TOTAL 0.3 MG/DL (0.1-1.0); CARBON DIOXIDE 19 MMOL/L (21-32)
[2021-01-24 06:56] LABS: ALKALINE PHOSPHATASE 81 U/L (40-136); CREATININE SERUM 0.67 MG/DL (0.60-1.30); GFR ESTIMATED > 60
[2021-01-24 06:57] LABS: BUN/CREATININE RATIO 9
[2021-01-24 06:59] LABS: ALANINE AMINOTRANSFERASE 13 U/L (0-55)
[2021-01-24] MEDS: UMECLIDINIUM BROMIDE (INCRUSE ELLIPTA) 7'S IH SCH (07:05)
[2021-01-24] MEDS: RT--FLUTICASONE/SALMETEROL 232-14 (AIRDUO RespiCLICK) IH SCH (07:05)
[2021-01-24 07:17] VITALS: BP 144/65
[2021-01-24] MEDS: FLUTICASONE NASAL SPRAY (FLONASE) 16 GM BTL NS SCH (08:20)
[2021-01-24] MEDS: DOCUSATE SODIUM 100 MG (COLACE) CAP PO SCH (08:20)
[2021-01-24] MEDS: FENTANYL PATCH REMOVAL TP SCH (08:21)
[2021-01-24] MEDS: NICOTINE PATCH REMOVAL TP SCH (08:21)
[2021-01-24] MEDS: NICOTINE 7 MG (NICODERM) PATCH TD SCH (08:21)
[2021-01-24] MEDS: fentaNYL PATCH 25 MCG (DURAGESIC) TD SCH (08:21)
[2021-01-24] MEDS: meTOprolol TARTRATE 25 MG (LOPRESSOR) TABLET PO SCH (08:21)
[2021-01-24] MEDS: lisINopril 20 MG (PRINIVIL) TABLET PO SCH (08:21)
[2021-01-24] MEDS: TAMSULOSIN 0.4 MG (FLOMAX) CAP PO SCH (08:22)
[2021-01-24] MEDS: SENNA W/DOCUSATE (SENOKOT S) TABLET PO SCH (08:22)
[2021-01-24] MEDS: polyethylene glycoL POWDER 17 GM (MIRALAX) PACK PO SCH (08:22)
[2021-01-24] MEDS: LORATADINE (CLARITIN) 10 MG TAB PO SCH (08:22)
[2021-01-24] MEDS: amLODIPine 10 MG (NORVASC) TAB PO SCH (08:22)
[2021-01-24] MEDS: METOCLOPRAMIDE 5 MG (REGLAN) TAB PO SCH (08:22)
[2021-01-24] MEDS: SODIUM CHLORIDE 1 GM TABLET PO SCH (08:22)
[2021-01-24] MEDS: DAKIN'S 1/4 STRENGTH (0.125%) 473 ML BTL TOP SCH (08:22)
[2021-01-24] MEDS: PANTOPRAZOLE 40 MG (PROTONIX) TAB PO SCH (08:22)
--- NOTE | 2021-01-24 10:19 | Progress Note ---
Subjective Date Seen by a Provider: Jan 24, 2021 Time Seen by a Provider: 10:00 Subjective/Events-last exam doing well. no complaints. no fever/chills. tolerating diet. minimal abd pain. Focused Exam Time of Focused Exam: 04:30 Objective Exam Vital Signs Date Time Temp Pulse Resp B/P (MAP) Pulse Ox O2 Delivery O2 Flow Rate FiO2 01/24/21 09:00 97 Nasal Cannula 2.00 01/24/21 08:51 36.5 01/24/21 07:17 36.5 86 20 144/65 (91) 97 Nasal Cannula 2.00 01/24/21 07:07 97 Nasal Cannula 2.00 01/24/21 07:06 97 2.00 01/24/21 03:24 36.9 83 18 114/58 (76) 97 Nasal Cannula 2.00 01/24/21 00:00 36.8 84 18 138/67 (90) 94 Nasal Cannula 2.00 01/23/21 21:26 97 3.00 01/23/21 21:00 Nasal Cannula 3.00 01/23/21 20:34 36.8 76 18 113/56 (75) 97 Nasal Cannula 3.00 01/23/21 16:28 37.0 77 20 121/55 (77) 98 Nasal Cannula 3.00 01/23/21 11:36 36.5 74 18 104/52 (69) 94 Nasal Cannula 3.00 I & O 01/24/21 07:00 Intake Total 2660 ml Output Total 1875 ml Balance 785 ml Capillary Refill : Less Than 3 Seconds General Appearance: No Apparent Distress HEENT: PERRL/EOMI Neck: Full Range of Motion Respiratory: Chest Non Tender, Lungs Clear Cardiovascular: Regular Rate, Rhythm Gastrointestinal: normal bowel sounds Extremity: Normal Capillary Refill Neurologic/Psychiatric: Alert, Oriented x3 Skin: Normal Color Lymphatic: No Adenopathy Results Lab Laboratory Tests 01/24/21 06:28: White Blood Count 6.9, Red Blood Count 2.97L, Hemoglobin 8.7L, Hematocrit 27L, Mean Corpuscular Volume 90, Mean Corpuscular Hemoglobin 29, Mean Corpuscular Hemoglobin Concent 33, Red Cell Distribution Width 14.4, Platelet Count 265, Mean Platelet Volume 8.6L, Immature Granulocyte % (Auto) 1, Neutrophils (%) (Auto) 59, Lymphocytes (%) (Auto) 23, Monocytes (%) (Auto) 11, Eosinophils (%) (Auto) 5, Basophils (%) (Auto) 1, Neutrophils # (Auto) 4.1, Lymphocytes # (Auto) 1.6, Monocytes # (Auto) 0.7, Eosinophils # (Auto) 0.4H, Basophils # (Auto) 0.0, Immature Granulocyte # (Auto) 0.1, Sodium Level 130L, Potassium Level 3.9, Chloride Level 100, Carbon Dioxide Level 19L, Anion Gap 11, Blood Urea Nitrogen 6L, Creatinine 0.67, Estimat Glomerular Filtration Rate > 60, BUN/Creatinine Ratio 9, Glucose Level 131H, Calcium Level 8.5, Corrected Calcium 9.6, Total Bilirubin 0.3, Aspartate Amino Transf (AST/SGOT) 16, Alanine Aminotransferase (ALT/SGPT) 13, Alkaline Phosphatase 81, Total Protein 5.6L, Albumin 2.6L Microbiology 01/22/21 Gram Stain - Final, Resulted 01/22/21 Anaerobic Culture - Preliminary, Resulted Culture In Progress 01/22/21 Surgical Culture - Preliminary, Resulted YEAST 01/22/21 Fungal Culture 1 - Preliminary, Resulted Culture In Progress 01/20/21 MRSA Screen - Final, Complete MRSA not isolated 01/20/21 Gram Stain - Final, Complete 01/20/21 Body Fluid Culture - Final, Complete Pseudomonas aeruginosa Pseudomonas aeruginosa#2 01/20/21 Urine Culture - Final, Complete NO GROWTH 01/20/21 Blood Culture - Preliminary, Resulted No growth Assessment/Plan Assessment/Plan Assess & Plan/Chief Complaint intraabdominal abscess. image guided drain placement. ok for PO abx and rehab will continue both drains and have her f/u in office weekly. will await until both drains turn serous before removing. MICHAEL XIONG MD Jan 24, 2021 10:19
[2021-01-24] MEDS ORDERED: LEVO750T39 PO (10:59)
--- NOTE | 2021-01-24 11:00 | Discharge Inst-Skilled Nursing ---
Discharge Inst-Skilled NF Reconcile Patient Problems Problems Reviewed?: Yes Patient Instructions Patient Problems: Abdominal wall abscess s/p CT guided drain Goal: [place] Consult/Follow Up/Orders Follow Up Appt.: Dr Lynch in 1 week Skilled NF Admit to: [facility] Certification (SNF) I certify that SNF services are required to be given on an inpatient basis because of the above named patient's need for usp care on a continuing basis for the conditions(s) for which he/she was receiving inpatient hospital services prior to his/her transfer to the SNF. Correction Facility Order: Nursing Services, Household Assistant-Evaluate & Treat, Physical Therapy-Evaluate & Treat, Speech Language-Evaluate & Treat Oxygen Delivery Method: Nasal Cannula Daily Activity as Tolerated: Yes Resuscitation Status: Do Not Resuscitate New & Resume Previous Orders New Medications: Levofloxacin (Levofloxacin) 750 Mg Tablet 750 MG PO DAILY, #7 TAB Continued Medications: Albuterol Sulfate (Albuterol Sulfate) 2.5 Mg/0.5 Ml Vial.neb 2.5 MG INH Q4H PRN for SHORTNESS OF BREATH, EACH Alprazolam (Xanax) 0.25 Mg Tablet 0.25 MG PO Q4H PRN for ANXIETY, TAB Amlodipine Besylate (Amlodipine Besylate) 10 Mg Tablet 10 MG PO DAILY, TAB DO NOT GIVE IF BP <80/50 OR >180/110 AND P <50 OR >110 [Bethanechol] () 25 TAB 25 MG PO AC, TAB Cetirizine HCl (Cetirizine HCl) 10 Mg Tablet 10 MG PO DAILY, TAB Docusate Sodium (Docusate Sodium) 100 Mg Capsule 100 MG PO BID, CAP Enoxaparin Sodium (Enoxaparin Sodium) 40 Mg/0.4 Ml Syringe 40 MG SQ HS, SYRINGE Fentanyl (Fentanyl Patch 25 MCG) 1 Each Patch.td72 25 MCG PO Q72H, PAT Fluticasone Propionate (Flonase Allergy Relief) 9.9 Ml [place].susp 1 SPRAY NSEACH DAILY, EACH Fluticasone/Umeclidin/Vilanter (Trelegy Ellipta 100-62.5-25) 1 Each Blst.w.dev 1 PUFF IH DAILY, INH Lisinopril (Lisinopril) 20 Mg Tablet 20 MG PO DAILY, TAB DO NOT GIVE IF BP <80/50 OR >180/100 AND P <50 OR >110 Melatonin (Melatonin) 3 Mg Tablet 6 MG PO HS PRN for INSOMNIA, TAB TAKES 2 (3MG) TABLETS Metoclopramide HCl (Metoclopramide HCl) 5 Mg Tablet 5 MG PO BID, TAB Metoprolol Tartrate (Metoprolol Tartrate) 25 Mg Tablet 25 MG PO BID, TAB DO NOT GIVE BP <80/50 OR >180/110 AND P <50 OR >110 Miconazole (Miconazole) 5 Gm Powder 1 APPLIC TOP Q12H PRN for RASH, EA Montelukast Sodium (Montelukast Sodium) 10 Mg Tablet 10 MG PO HS, TAB Nicotine (Nicotine Patch) 1 Each Patch.td24 7 MG TD DAILY, PATCH Ondansetron HCl (Ondansetron HCl) 4 Mg Tablet 4 MG PO Q6H PRN for NAUSEA/VOMITING-1ST LINE, TAB Oxycodone HCl (Oxycodone HCl) 5 Mg Tablet 5 MG PO EVERY 3 HOURS PRN for PAIN-SEVERE (8-10), TAB Pantoprazole Sodium (Pantoprazole Sodium) 40 Mg Tablet.dr 40 MG PO BID, TAB Phenol (Sore Throat [place]) 177 Ml [place] 1 SPRAY MM Q2H PRN for Throat Irritation, SPRAY Polyethylene Glycol 3350 (Miralax) 17 Gm Powd.pack 17 GM PO BID, EACH Potassium Chloride (Potassium Chloride) 20 Meq Packet 20 MEQ PO DAILY for 30 Days, PACKET Propylene Glycol/Peg 400 (Systane 0.3-0.4% Eye Drops) 15 Ml Drops 1 DROP OU Q8H PRN for DRY EYES, DROPS Saliva Stimulant Agents Comb.3 (Biotene Moisturizing Mouth) 1 Each [place] 1 EACH MM PRN PRN for DRY MOUTH, SPRAY Sennosides/Docusate Sodium (Sennosides-Docusate Sodium Tab) 1 Each Tablet 1 EACH PO BID, TAB Sodium Chloride (Sodium Chloride) 1 Gm Tab 1 GM PO BID, TAB Sodium Hypochlorite (Dakin's) 473 Ml Solution 1 ML TOP BID for 30 Days, EA Sucralfate (Sucralfate) 1 Gm Tablet 1 GM PO QIDACHS, TAB Tamsulosin HCl (Flomax) 0.4 Mg Cap 0.4 MG PO DAILY, CAP Umeclidinium Brm/Vilanterol Tr (Anoro Ellipta 62.5-25 Mcg INH) 1 Each Blst.w.dev 1 PUFF IH DAILY, INH Discontinued Medications: Levofloxacin (Levofloxacin) 500 Mg Tablet 500 MG PO DAILY, TAB START DATE 01-18-2021 #7 DAY SUPPLY Genna Chapman Jan 24, 2021 11:00 GENNA CHAPMAN DO Jan 24, 2021 11:00
--- NOTE | 2021-01-24 11:01 | Discharge Summary ---
Diagnosis/Chief Complaint Date of Admission Jan 20, 2021 at 05:13 Date of Discharge Discharge Date: Jan 24, 2021 Discharge Diagnosis Abdominal wall abscess s/p CT guided drain placement Sepsis Reason Hospital Visit CC: Sepsis HPI: This is a 75yoWF clinic Pt of Dr. Her who presents three days after she was discharged on Levaquin per sensitivity profile with abdominal pain and acute pancreatitis. CT scan showed fluid collection, whether or not it is an abscess is difficult to say. Magnesium is low at 1.1 and sodium of 131 and Amylase and Lipase were 521 and 1031 respectively. Discussion of DNR. Discharge Summary Discharge Physical Examination Allergies: Coded Allergies: Penicillins (Verified Allergy, Unknown, Anaphylaxis, 09/26/20) budesonide (Verified Allergy, Unknown, Nausea, PT USES TRELEGY, 12/20/20) formoterol (Verified Allergy, Unknown, Nausea, 09/26/20) midazolam (Verified Allergy, Unknown, Anaphylaxis, 09/26/20) Vitals & I&Os Vital Signs Date Time Temp Pulse Resp B/P (MAP) Pulse Ox O2 Delivery O2 Flow Rate FiO2 01/24/21 13:39 01/24/21 11:58 36.5 91 20 20 Nasal Cannula 2.00 01/20/21 07:25 28 General Appearance: Alert, Oriented X3, Cooperative Respiratory: Clear to Auscultation Cardiovascular: Regular Rate Neuro: Normal Gait, Normal Speech, Strength at 5/5 X4 Ext Psych/Mental Status: Mental Status NL Hospital Course Was the Problem List Reviewed?: Yes Lengthy course after admitted to ICU for sepsis and CT and labs revealed abscess of abdominal wall and acute pancreatitis. Patient became stable after IVF and IV abx. CT guided drain placed with good results. Pseudomonas grew on Cx and abx covered that. Labs remained stable and patient was deemed ready to go back to [facility]. Labs (last 24 hrs) Laboratory Tests 01/20/21 02:52: White Blood Count 18.5H, Red Blood Count 3.84, Hemoglobin 11.3L, Hematocrit 34L, Mean Corpuscular Volume 89, Mean Corpuscular Hemoglobin 29, Mean Corpuscular Hemoglobin Concent 33, Red Cell Distribution Width 14.1, Platelet Count 397, Mean Platelet Volume 8.7L, Immature Granulocyte % (Auto) 1, Neutrophils (%) (Au to) 73, Lymphocytes (%) (Auto) 17, Monocytes (%) (Auto) 6, Eosinophils (%) (Auto) 3, Basophils (%) (Auto) 1, Neutrophils # (Auto) 13.6H, Lymphocytes # (Auto) 3.1, Monocytes # (Auto) 1.0, Eosinophils # (Auto) 0.5H, Basophils # (Auto) 0.1, Immature Granulocyte # (Auto) 0.2H, Neutrophils % (Manual) 74, Lymphocytes % (Manual) 18, Monocytes % (Manual) 5, Eosinophils % (Manual) 2, Band Neutrophils 1, Blood Morphology Comment NORMAL, Prothrombin Time 14.5, INR Comment 1.1, Activated Partial Thromboplast Time 40H, Sodium Level 129L, Pota ssium Level 4.6, Chloride Level 93L, Carbon Dioxide Level 25, Anion Gap 11, Blood Urea Nitrogen 8, Creatinine 0.91, Estimat Glomerular Filtration Rate 60, BUN/Creatinine Ratio 9, Glucose Level 130H, Lactic Acid Level 1.57, Calcium Level 9.3, Corrected Calcium 9.9, Magnesium Level 1.1*L, Total Bilirubin 0.4, Aspartate Amino Transf (AST/SGOT) 14, Alanine Aminotransferase (ALT/SGPT) 14, Alkaline Phosphatase 101, Total Protein 6.6, Albumin 3.2, Amylase Level 521H, Lipase 1031H, Procalcitonin 0.09 01/20/21 04:29: Urine Color YELLOW, Urine Clarity SL CLOUDY, Urine pH 8.5, Urine Specific [place] 1.010L, Urine Protein NEGATIVE, Urine Glucose (UA) NEGATIVE, Urine Ketones NEGATIVE, Urine Nitrite NEGATIVE, Urine Bilirubin NEGATIVE, Urine Urobilinogen 0.2, Urine Leukocyte Esterase NEGATIVE, Urine RBC (Auto) NEGATIVE, Urine RBC NONE, Urine WBC 0-2, Urine Squamous Epithelial Cells NONE, Urine Crystals NONE, Urine Bacteria TRACE, Urine Casts NONE, Urine Mucus NEGATIVE, Urine Culture Indicated CULTURE PENDING 01/20/21 06:57: Sodium Level 131L, Potassium Level 4.4, Chloride Level 98, Carbon Dioxide Level 22, Anion Gap 11, Blood Urea Nitrogen 7, Creatinine 0.83, Estimat Glomerular Filtration Rate > 60, BUN/Creatinine Ratio 8, Glucose Level 144H, Calcium Level 8.2L, Magnesium Level 2.1, Phosphorus Level 3.9 01/20/21 10:24: Magnesium Level 2.2 01/21/21 03:15: White Blood Count 13.9H, Red Blood Count 3.32L, Hemoglobin 9.7L, Hematocrit 30L, Mean Corpuscular Volume 92, Mean Corpuscular Hemoglobin 29, Mean Corpuscular Hemoglobin Concent 32, Red Cell Distribution Width 14.6H, Platelet Count 333, Mean Platelet Volume 8.9L, Immature Granulocyte % (Auto) 1, Neutrophils (%) (Auto) 78H, Lymphocytes (%) (Auto) 14, Monocytes (%) (Auto) 6, Eosinophils (%) (Auto) 1, Basophils (%) (Auto) 0, Neutrophils # (Auto) 10.7H, Lymphocytes # (Auto) 2.0, Monocytes # (Auto) 0.9, Eosinophils # (Auto) 0.1, Basophils # (Auto) 0.0, Immature Granulocyte # (Auto) 0.1, Sodium Level 128L, Potassium Level 4.4, Chloride Level 97L, Carbon Dioxide Level 22, Anion Gap 9, Blood Urea Nitrogen 9, Creatinine 0.76, Estimat Glomerular Filtration Rate > 60, BUN/Creatinine Ratio 12, Glucose Level 132H, Calcium Level 8.2L, Corrected Calcium 9.6, Phosphorus Level 3.5, Magnesium Level 1.8, Total Bilirubin 0.3, Aspartate Amino Transf (AST/SGOT) 9, Alanine Aminotransferase (ALT/SGPT) 10, Alkaline Phosphatase 75, Total Protein 4.8L, Albumin 2.3L 01/22/21 05:05: White Blood Count 12.7H, Red Blood Count 2.97L, Hemoglobin 8.6L, Hematocrit 27L, Mean Corpuscular Volume 92, Mean Corpuscular Hemoglobin 29, Mean Corpuscular Hemoglobin Concent 32, Red Cell Distribution Width 14.6H, Platelet Count 275, Mean Platelet Volume 9.0, Immature Granulocyte % (Auto) 1, Neutrophils (%) (Auto) 71, Lymphocytes (%) (Auto) 18, Monocytes (%) (Auto) 8, Eosinophils (%) (Auto) 2, Basophils (%) (Auto) 0, Neutrophils # (Auto) 9.0H, Lymphocytes # (Auto) 2.3, Monocytes # (Auto) 1.0, Eosinophils # (Auto) 0.2, Basophils # (Auto) 0.0, Immature Granulocyte # (Auto) 0.1, Sodium Level 126L, Potassium Level 4.0, Chloride Level 97L, Carbon Dioxide Level 22, Anion Gap 7, Blood Urea Nitrogen 8, Creatinine 0.69, Estimat Glomerular Filtration Rate > 60, BUN/Creatinine Ratio 12, Glucose Level 101, Calcium Level 8.3L, Corrected Calcium 9.7, Total Bilirubin 0.4, Aspartate Amino Transf (AST/SGOT) 8, Alanine Aminotransferase (ALT/SGPT) 7, Alkaline Phosphatase 70, Total Protein 4.9L, Albumin 2.3L, B-Type Natriuretic Peptide 103.3H 01/23/21 05:26: White Blood Count 8.4, Red Blood Count 2.74L, Hemoglobin 8.0L, Hematocrit 25L, Mean Corpuscular Volume 90, Mean Corpuscular Hemoglobin 29, Mean Corpuscular Hemoglobin Concent 32, Red Cell Distribution Width 14.3, Platelet Count 277, Mean Platelet Volume 9.1, Immature Granulocyte % (Auto) 1, Neutrophils (%) (Auto) 63, Lymphocytes (%) (Auto) 22, Monocytes (%) (Auto) 11, Eosinophils (%) (Auto) 3, Basophils (%) (Auto) 1, Neutrophils # (Auto) 5.3, Lymphocytes # (Auto) 1.9, Monocytes # (Auto) 0.9, Eosinophils # (Auto) 0.3, Basophils # (Auto) 0.0, Immature Granulocyte # (Auto) 0.1, Sodium Level 130L, Potassium Level 3.7, Chloride Level 99, Carbon Dioxide Level 22, Anion Gap 9, Blood Urea Nitrogen 6L, Creatinine 0.62, Estimat Glomerular Filtration Rate > 60, BUN/Creatinine Ratio 10, Glucose Level 114H, Calcium Level 8.2L, Corrected Calcium 9.6, Total Che[place] irubin 0.4, Aspartate Amino Transf (AST/SGOT) 12, Alanine Aminotransferase (ALT/SGPT) 10, Alkaline Phosphatase 67, Total Protein 4.9L, Albumin 2.2L 01/24/21 06:28: White Blood Count 6.9, Red Blood Count 2.97L, Hemoglobin 8.7L, Hematocrit 27L, Mean Corpuscular Volume 90, Mean Corpuscular Hemoglobin 29, Mean Corpuscular Hemoglobin Concent 33, Red Cell Distribution Width 14.4, Platelet Count 265, Mean Platelet Volume 8.6L, Immature Granulocyte % (Auto) 1, Neutrophils (%) (Auto) 59, Lymphocytes (%) (Auto) 23, Monocytes (%) (Auto) 11, Eosinophils (%) (Auto) 5, Basophils (%) (Auto) 1, Neutrophils # (Auto) 4.1, Lymphocytes # (Auto) 1.6, Monocytes # (Auto) 0.7, Eosinophils # (Auto) 0.4H, Basophils # (Auto) 0.0, Immature Granulocyte # (Auto) 0.1, Sodium Level 130L, Potassium Level 3.9, Chloride Level 100, Carbon Dioxide Level 19L, Anion Gap 11, Blood Urea Nitrogen 6L, Creatinine 0.67, Estimat Glomerular Filtration Rate > 60, BUN/Creatinine Ratio 9, Glucose Level 131H, Calcium Level 8.5, Corrected Calcium 9.6, Total Bilirubin 0.3, Aspartate Amino Transf (AST/SGOT) 16, Alanine Aminotransferase (ALT/SGPT) 13, Alkaline Phosphatase 81, Total Protein 5.6L, Albumin 2.6L Microbiology 01/22/21 Gram Stain - Final, Resulted 01/22/21 Anaerobic Culture - Preliminary, Resulted No anaerobes isolated 01/22/21 Surgical Culture - Preliminary, Resulted YEAST 01/22/21 Fungal Culture 1 - Preliminary, Resulted 01/20/21 MRSA Screen - Final, Complete MRSA not isolated 01/20/21 Gram Stain - Final, Complete 01/20/21 Body Fluid Culture - Final, Complete Pseudomonas aeruginosa Pseudomonas aeruginosa#2 01/20/21 Urine Culture - Final, Complete NO GROWTH 01/20/21 Blood Culture - Preliminary, Resulted No growth Pending Labs Microbiology Date/Time Source Procedure Growth Status 01/22/21 15:12 Abscess Abdominal Abscess Gram Stain - Final Resulted 01/22/21 15:12 Abscess Abdominal Abscess Anaerobic Culture - Preliminary No anaerobes isolated Resulted 01/22/21 15:12 Surgical Culture - Preliminary YEAST Resulted 01/22/21 15:12 Abscess Abdominal Abscess Fungal Culture 1 - Preliminary Resulted 01/20/21 06:05 Nasal MRSA Screen - Final MRSA not isolated Complete 01/20/21 05:14 Abdominal Fluid Gram Stain - Final Complete 01/20/21 05:14 Body Fluid Culture - Final Pseudomonas aeruginosa Pseudomonas aeruginosa#2 Complete 01/20/21 04:29 Urine Lam Cath Urine Culture - Final NO GROWTH Complete 01/20/21 03:26 Peripheral Rt Ac Blood Culture - Preliminary No growth Resulted 01/20/21 02:52 Peripheral Right Wrist Blood Culture - Preliminary No growth Resulted Laboratory Tests 01/20/21 02:52: White Blood Count 18.5, Red Blood Count 3.84, Hemoglobin 11.3, Hematocrit 34, Mean Corpuscular Volume 89, Mean Corpuscular Hemoglobin 29, Mean Corpuscular Hemoglobin Concent 33, Red Cell Distribution Width 14.1, Platelet Count 397, Mean Platelet Volume 8.7, Immature Granulocyte % (Auto) 1, Neutrophils (%) (Auto) 73, Lymphocytes (%) (Auto) 17, Monocytes (%) (Auto) 6, Eosinophils (%) (Auto) 3, Basophils (%) (Auto) 1, Neutrophils # (Auto) 13.6, Lymphocytes # (Auto) 3.1, Monocytes # (Auto) 1.0, Eosinophils # (Auto) 0.5, Basophils # (Auto) 0.1, Immature Granulocyte # (Auto) 0.2, Neutrophils % (Manual) 74, Lymphocytes % (Manual) 18, Monocytes % (Manual) 5, Eosinophils % (Manual) 2, Band Neutrophils 1, Blood Morphology Comment NORMAL, Prothrombin Time 14.5, INR Comment 1.1, Activated Partial Thromboplast Time 40, Sodium Level 129, Potassium Level 4.6, Chloride Level 93, Carbon Dioxide Level 25, Anion Gap 11, Blood Urea Nitrogen 8, Creatinine 0.91, Estimat Glomerular Filtration Rate 60, BUN/Creatinine Ratio 9, Glucose Level 130, Lactic Acid Level 1.57, Calcium Level 9.3, Corrected Calcium 9.9, Magnesium Level 1.1, Total Bilirubin 0.4, Aspartate Amino Transf (AST/SGOT) 14, Alanine Aminotransferase (ALT/SGPT) 14, Alkaline Phosphatase 101, Total Protein 6.6, Albumin 3.2, Amylase Level 521, Lipase 1031, Procalcitonin 0.09 01/20/21 04:29: Urine Color YELLOW, Urine Clarity SL CLOUDY, Urine pH 8.5, Urine Specific [place] 1.010, Urine Protein NEGATIVE, Urine Glucose (UA) NEGATIVE, Urine Ketones NEGATIVE, Urine Nitrite NEGATIVE, Urine Bilirubin NEGATIVE, Urine Urobilinogen 0.2, Urine Leukocyte Esterase NEGATIVE, Urine RBC (Auto) NEGATIVE, Urine RBC NONE, Urine WBC 0-2, Urine Squamous Epithelial Cells NONE, Urine Crystals NONE, Urine Bacteria TRACE, Urine Casts NONE, Urine Mucus NEGATIVE, Urine Culture Indicated CULTURE PENDING 01/20/21 06:57: Sodium Level 131, Potassium Level 4.4, Chloride Level 98, Carbon Dioxide Level 22, Anion Gap 11, Blood Urea Nitrogen 7, Creatinine 0.83, Estimat Glomerular Filtration Rate > 60, BUN/Creatinine Ratio 8, Glucose Level 144, Calcium Level 8.2, Magnesium Level 2.1, Phosphorus Level 3.9 01/20/21 10:24: Magnesium Level 2.2 01/21/21 03:15: White Blood Count 13.9, Red Blood Count 3.32, Hemoglobin 9.7, Hematocrit 30, Mean Corpuscular Volume 92, Mean Corpuscular Hemoglobin 29, Mean Corpuscular Hemoglobin Concent 32, Red Cell Distribution Width 14.6, Platelet Count 333, Mean Platelet Volume 8.9, Immature Granulocyte % (Auto) 1, Neutrophils (%) (Auto) 78, Lymphocytes (%) (Auto) 14, Monocytes (%) (Auto) 6, Eosinophils (%) (Auto) 1, Basophils (%) (Auto) 0, Neutrophils # (Auto) 10.7, Lymphocytes # (Auto) 2.0, Monocytes # (Auto) 0.9, Eosinophils # (Auto) 0.1, Basophils # (Auto) 0.0, Immature Granulocyte # (Auto) 0.1, Sodium Level 128, Potassium Level 4.4, Chloride Level 97, Carbon Dioxide Level 22, Anion Gap 9, Blood Urea Nitrogen 9, Creatinine 0.76, Estimat Glomerular Filtration Rate > 60, BUN/Creatinine Ratio 12, Glucose Level 132, Calcium Level 8.2, Corrected Calcium 9.6, Phosphorus Level 3.5, Magnesium Level 1.8, Total Bilirubin 0.3, Aspartate Amino Transf (AST/SGOT) 9, Alanine Aminotransferase (ALT/SGPT) 10, Alkaline Phosphatase 75, Total Protein 4.8, Albumin 2.3 01/22/21 05:05: White Blood Count 12.7, Red Blood Count 2.97, Hemoglobin 8.6, Hematocrit 27, Mean Corpuscular Volume 92, Mean Corpuscular Hemoglobin 29, Mean Corpuscular Hemoglobin Concent 32, Red Cell Distribution Width 14.6, Platelet Count 275, Mean Platelet Volume 9.0, Immature Granulocyte % (Auto) 1, Neutrophils (%) (Auto) 71, Lymphocytes (%) (Auto) 18, Monocytes (%) (Auto) 8, Eosinophils (%) (Auto) 2, Basophils (%) (Auto) 0, Neutrophils # (Auto) 9.0, Lymphocytes # (Auto) 2.3, Monocytes # (Auto) 1.0, Eosinophils # (Auto) 0.2, Basophils # (Auto) 0.0, Immature Granulocyte # (Auto) 0.1, Sodium Level 126, Potassium Level 4.0, Chloride Level 97, Carbon Dioxide Level 22, Anion Gap 7, Blood Urea Nitrogen 8, Creatinine 0.69, Estimat Glomerular Filtration Rate > 60, BUN/Creatinine Ratio 12, Glucose Level 101, Calcium Level 8.3, Corrected Calcium 9.7, Total Bilirubin 0.4, Aspartate Amino Transf (AST/SGOT) 8, Alanine Aminotransferase (ALT/SGPT) 7, Alkaline Phosphatase 70, Total Protein 4.9, Albumin 2.3, B-Type Natriuretic Pept paxton 103.3 01/23/21 05:26: White Blood Count 8.4, Red Blood Count 2.74, Hemoglobin 8.0, Hematocrit 25, Mean Corpuscular Volume 90, Mean Corpuscular Hemoglobin 29, Mean Corpuscular Hemoglobin Concent 32, Red Cell Distribution Width 14.3, Platelet Count 277, Mean Platelet Volume 9.1, Immature Granulocyte % (Auto) 1, Neutrophils (%) (Auto) 63, Lymphocytes (%) (Auto) 22, Monocytes (%) (Auto) 11, Eosinophils (%) (Auto) 3, Basophils (%) (Auto) 1, Neutrophils # (Auto) 5.3, Lymphocytes # (Auto) 1.9, Monocytes # (Auto) 0.9, Eosinophils # (Auto) 0.3, Basophils # (Auto) 0.0, Immature Granulocyte # (Auto) 0.1, Sodium Level 130, Potassium Level 3.7, Chloride Level 99, Carbon Dioxide Level 22, Anion Gap 9, Blood Urea Nitrogen 6, Creatinine 0.62, Estimat Glomerular Filtration Rate > 60, BUN/Creatinine Ratio 10, Glucose Level 114, Calcium Level 8.2, Corrected Calcium 9.6, Total Bilirubin 0.4, Aspartate Amino Transf (AST/SGOT) 12, Alanine Aminotransferase (ALT/SGPT) 10, Alkaline Phosphatase 67, Total Protein 4.9, Albumin 2.2 01/24/21 06:28: White Blood Count 6.9, Red Blood Count 2.97, Hemoglobin 8.7, Hematocrit 27, Mean Corpuscular Volume 90, Mean Corpuscular Hemoglobin 29, Mean Corpuscular Hemoglobin Concent 33, Red Cell Distribution Width 14.4, Platelet Count 265, Mean Platelet Volume 8.6, Immature Granulocyte % (Auto) 1, Neutrophils (%) (Auto) 59, Lymphocytes (%) (Auto) 23, Monocytes (%) (Auto) 11, Eosinophils (%) (Auto) 5, Basophils (%) (Auto) 1, Neutrophils # (Auto) 4.1, Lymphocytes # (Auto) 1.6, Monocytes # (Auto) 0.7, Eosinophils # (Auto) 0.4, Basophils # (Auto) 0.0, Immature Granulocyte # (Auto) 0.1, Sodium Level 130, Potassium Level 3.9, Chloride Level 100, Carbon Dioxide Level 19, Anion Gap 11, Blood Urea Nitrogen 6, Creatinine 0.67, Estimat Glomerular Filtration Rate > 60, BUN/Creatinine Ratio 9, Glucose Level 131, Calcium Level 8.5, Corrected Calcium 9.6, Total Bilirubin 0.3, Aspartate Amino Transf (AST/SGOT) 16, Alanine Aminotransferase (ALT/SGPT) 13, Alkaline Phosphatase 81, Total Protein 5.6, Albumin 2.6 Discharge Home Medications: Active Scripts Active Levofloxacin 750 Mg Tablet 750 Mg PO DAILY Potassium Chloride 20 Meq Packet 20 Meq PO DAILY 30 Days Dakin's (Sodium Hypochlorite) 473 Ml Solution 1 Ml TOP BID 30 Days Reported Oxycodone HCl 5 Mg Tablet 5 Mg PO EVERY 3 HOURS PRN Fentanyl Patch 25 MCG (Fentanyl) 1 Each Patch.td72 25 Mcg PO Q72H [Bethanechol] 25 Tab 25 Mg PO AC Xanax (Alprazolam) 0.25 Mg Tablet 0.25 Mg PO Q4H PRN Nicotine Patch (Nicotine) 1 Each Patch.td24 7 Mg TD DAILY Systane 0.3-0.4% Eye Drops (Propylene Glycol/Peg 400) 15 Ml Drops 1 Drop OU Q8H PRN Flomax (Tamsulosin HCl) 0.4 Mg Cap 0.4 Mg PO DAILY Enoxaparin Sodium 40 Mg/0.4 Ml Syringe 40 Mg SQ HS Docusate Sodium 100 Mg Capsule 100 Mg PO BID Biotene Moisturizing Mouth (Saliva Stimulant Agents Comb.3) 1 Each [place] 1 Each MM PRN PRN Amlodipine Besylate 10 Mg Tablet 10 Mg PO DAILY DO NOT GIVE IF BP <80/50 OR >180/110 AND P <50 OR >110 Albuterol Sulfate 2.5 Mg/0.5 Ml Vial.neb 2.5 Mg INH Q4H PRN Sucralfate 1 Gm Tablet 1 Gm PO QIDACHS Sodium Chloride 1 Gm Tab 1 Gm PO BID Sennosides-Docusate Sodium Tab (Sennosides/Docusate Sodium) 1 Each Tablet 1 Each PO BID Pantoprazole Sodium 40 Mg Tablet.dr 40 Mg PO BID Miralax (Polyethylene Glycol 3350) 17 Gm Powd.pack 17 Gm PO BID Sore Throat [place] (Phenol) 177 Ml [place] 1 [place] MM Q2H PRN Ondansetron HCl 4 Mg Tablet 4 Mg PO Q6H PRN Miconazole 5 Gm Powder 1 Applic TOP Q12H PRN Metoprolol Tartrate 25 Mg Tablet 25 Mg PO BID DO NOT GIVE BP <80/50 OR >180/110 AND P <50 OR >110 Metoclopramide HCl 5 Mg Tablet 5 Mg PO BID Melatonin 3 Mg Tablet 6 Mg PO HS PRN TAKES 2 (3MG) TABLETS Lisinopril 20 Mg Tablet 20 Mg PO DAILY DO NOT GIVE IF BP <80/50 OR >180/100 AND P <50 OR >110 Flonase Allergy Relief (Fluticasone Propionate) 9.9 Ml [place].susp 1 [place] NSEACH DAILY Trelegy Ellipta 100-62.5-25 (Fluticasone/Umeclidin/Vilanter) 1 Each Blst.w.dev 1 Puff IH DAILY Montelukast Sodium 10 Mg Tablet 10 Mg PO HS Cetirizine HCl 10 Mg Tablet 10 Mg PO DAILY Anoro Ellipta 62.5-25 Mcg INH (Umeclidinium Brm/Vilanterol Tr) 1 Each Blst.w.dev 1 Puff IH DAILY Instructions to patient/family Please see electronic discharge instructions given to patient. 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
[2021-01-24 11:58] VITALS: BP 152/67
--- NOTE | 2021-01-24 12:02 | Occupational Ther Daily Note ---
OT Current Status-Daily Note Subjective Pt alert, lying in bed. Pt agrees to therapy. No c/o pain. Pt to discharge today. Mental Status/Objective Patient Orientation: Person, Place, Time, Situation Attachments: Drains (2), IV, Oxygen (2L) ADL-Treatment Independent with bed mobility. Independent with donning/doffing housecoat. Pt manipulated own drainbags for ambulation. Independent with toileting and toilet transfer. Pt requested to ambulate around hallways using FWW independently, ~150'. After session, pt lying in bed with call light/phone in reach. All needs met in room. Therapy Code Descriptions/Definitions Functional [place] Measure: 0=Not Assessed/NA 4=Minimal Assistance 1=Total Assistance 5=Supervision or Setup 2=Maximal Assistance 6=Modified [place] 3=Moderate Assistance 7=Complete IndependenceSCALE: Activities may be completed with or without assistive devices. 1-Yisflmpkma-qlabaqs completes the activity by him/herself with no assistance from a helper. 5-Set-up or Clean-up Assistance-helper sets up or cleans up; patient completes activity. [place] assists only prior to or following the activity. 4-Supervision or Touching Assistance-helper provides verbal cues and/or touching/steadying and/or contact guard assistance as patient completes activity. Assistance may be provided throughout the activity or intermittently. 3-Partial/Moderate Assistance-helper does LESS THAN HALF the effort. [place] l ifts, holds or supports trunk or limbs, but provides less than half the effort. 2-Substantial/Maximal Assistance-helper does MORE THAN HALF the effort. [place] lifts or holds trunk or limbs and provides more than half the effort. 6-Coqkhqrac-attznu does ALL the effort. Patient does none of the effort to complete the activity. Or, the assistance of 2 or more helpers is required for t he patient to complete the activity. If activity was not attempted, code reason: 7-Patient Refused. 9-Not Applicable-not attempted and the patient did not perform the activity before the current illness, exacerbation or injury. 10-Not Attempted due to Environmental Limitations-(lack of equipment, weather restraints, etc.). 88-Not Attempted due to Medical Conditions or Safety Concerns. Upper Body Dressing (QC): 6 Toileting Hygiene (QC): 6 Toilet Transfer (QC): 6 OT Retirement Goals Retirement Goals Time Frame: Feb 04, 2021 Eating (QC): 6 Oral Hygiene (QC): 6 Toileting Hygiene (QC): 6 Shower/Bathe Self (QC): 4 Upper Body Dressing (QC): 6 Lower Body Dressing (QC): 6 On/Off Footwear (QC): 6 Additional Goals: 1-Demonstrate ADL Tasks, 2-Verbalize Understanding, 3- ImproveStrength/[place]ak 1=Demonstrate adherence to instructed precautions during ADL tasks. 2=Patient will verbalize/demonstrate understanding of assistive devices/modifications for ADL. 3=Patient will improve strength/tolerance for activity to enable patient to perform ADL's. OT Education/Plan Problem List/Assessment Assessment: Decreased Activ Tolerance Discharge Recommendations Plan/Recommendations: Continue POC Treatment Plan/Plan of Care Patient would benefit from OT for education, treatment and training to promote independence in ADL's, mobility, safety and/or upper extremity function for ADL's. Plan of Care: ADL Retraining, Functional Mobility, UE Funct Exercise/Act Treatment Duration: Feb 04, 2021 Frequency: 5 times per week Estimated Hrs Per Day: .25 hour per day Agreement: Yes Rehab Potential: Fair Time/GCodes Start Time: 11:30 Stop Time: 11:53 Total Time Billed (hr/min): 23 Billed Treatment Time 1 visit-FA 2 (23 min) RAIZA BROWNING Jan 24, 2021 12:02
--- NOTE | 2021-01-27 01:57 | Physician Query Clarification ---
PQ-Link Manifestation-Etiology Admission/Discharge Admission Date: Jan 20, 2021 at 05:13 Discharge Date: Jan 24, 2021 at 13:56 WILFREDO Diaz DO The medical record reflects the following clinical scenario: History/Risk Factors: 75 y/o male patient with history of colon cancer s/p right colectomy, complicated with ileocolonic torsion of ostomy and s/p multiple repeat surgeries and repeated resections currently has a J-P drain in place and left mid abdominal non healed open wound from recent surgery admitted for sepsis. Hand P, 01/20: Acute and reccurent sepsis, acute pancreatitis, intra-abdominal abscess post procedure. Progress notes, 01/22: intraabdominal abscess Discharge summary, 01/24: Abdominal wall abscess and sepsis Clinical Findings: WBC_18.5, pulse-100 Treatment:IV Vancomycin, drain placement Question: Can you specify if the Sepsis is due to/associated with Previous surgery? Please document a response in the Progress Note or Discharge Summary. 1. Yes - Sepsis is due to/associated with Previous surgery. 2. No -Sepsis is not due to/associated with Previous surgery. 3. Other, with explanation of the clinical findings. 4. Clinically undetermined, no explanation for the clinical findings. PHYSICIAN RESPONSE Manifestation due to/assoic: Yes Please remember a lack of response to the above will prompt a phone page by [facility]/Coding staff. In responding to this query, please exercise your independent professional judgment. The purpose of this communication is to more accurately reflect the complexity of your patients condition. The fact that a question is asked does not imply that any particular answer is desired or expected. Thank you for your timely response to this clarification. Requestors name: [ ] Phone # [ ] THIS PHYSICIAN QUERY FORM IS A PERMANENT PART OF THE MEDICAL RECORD DONYA MOBLEY Jan 27, 2021 01:57 WILFREDO MARTÍNEZ DO Jan 27, 2021 05:44
== END 2021-01-24 13:56 | DRG 862 ==
LOC: EDUNIT# 02:38 → ER 02:39 → ICU 05:13 → 4TH 01-21 13:03
PROVIDERS: ADMIT Family Medicine; ATTEND Family Medicine
PROC: 0W9G30Z Drainage of Peritoneal Cavity with Drainage Device, Percutaneous Approach (ICD-10-PCS; principal; 2021-01-22)
DX: T81.44XA Sepsis following a procedure, initial encounter (principal); K85.90 Acute pancreatitis without necrosis or infection, unspecified; E87.1 Hypo-osmolality and hyponatremia; K56.7 Ileus, unspecified; N17.9 Acute kidney failure, unspecified; N39.0 Urinary tract infection, site not specified; K35.80 Unspecified acute appendicitis; T81.49XA Infection following a procedure, other surgical site, initial encounter; Z90.49 Acquired absence of other specified parts of digestive tract; F17.210 Nicotine dependence, cigarettes, uncomplicated; J44.9 Chronic obstructive pulmonary disease, unspecified; E78.00 Pure hypercholesterolemia, unspecified; I10 Essential (primary) hypertension; M19.90 Unspecified osteoarthritis, unspecified site; G89.29 Other chronic pain; M54.9 Dorsalgia, unspecified; E83.42 Hypomagnesemia; Z85.038 Personal history of other malignant neoplasm of large intestine; D64.9 Anemia, unspecified; Z88.0 Allergy status to penicillin; G72.9 Myopathy, unspecified; Z93.2 Ileostomy status
CPT/HCPCS: 36415; 51702; 71045; 74177; 77012; 80048; 80053; 81000; 82150; 83605; 83690; 83735; 83880; 84100; 84145; 85007; 85025; 85027; 85610; 85730; 87040; 87070; 87075; 87077; 87081; 87088; 87101; 87106; 87186; 87205; 93041; 94640; 94760; 94761; 96361; 96365; 96375

== ENCOUNTER 2021-02-03 17:15 | Inpatient (IN) | payer MEDICARE ==
[~2021-02-03] VITALS: Ht 157.4 cm; Wt 76.2 kg
[~2021-02-03 17:15] MED LIST changes: +ALPR0.25 PO; +BETHANECHOL PO; +FENT1PAT8 PO; +LEVO750T39 PO; +NICO-586 TD
[2021-02-03] MEDS ORDERED: NS IV 1000 ML 1,000 ML IV STA (17:33)
--- NOTE | 2021-02-03 17:33 | ED General ---
General Stated Complaint: ABNORMAL LABS Source of Information: Patient, EMS Exam Limitations: No Limitations (TAM BUTLER MD) History of Present Illness Date Seen by Provider: Feb 03, 2021 Time Seen by Provider: 17:18 Initial Comments Here by EMS with report of low oxygen saturation and low blood pressure but was called to the [facility] to transport for high potassium and concerns for renal failure. Patient's potassium reportedly 6.5. She was here as recently as last week and had normal potassium and normal kidney function. Patient initially satting in the mid 80s for EMS and improved on 2 L O2. They did initiate IV and started IV fluids and her blood pressure has improved to mid 90s systolic. No report of recent fever or illness. Patient states that she has not been urinating very much. She does have colostomy after at least partial colectomy for colon cancer. She has had protracted hospitalization [facility] stay after the initial surgery for the tumor removal on colostomy placement. Patient denies nausea, vomiting, sweating but admits to weakness and decreased urination. Denies chest pain or breathing problems. Timing/Duration: 12-24 Hours Severity: Moderate Associated Systoms: No Chest Pain, No Cough, No Fever/Chills, No Nausea/Vomiting, No Shortness of Air; Weakness (TAM BUTLER MD) Allergies and Home Medications Allergies Coded Allergies: Penicillins (Verified Allergy, Unknown, Anaphylaxis, 09/26/20) budesonide (Verified Allergy, Unknown, Nausea, PT USES TRELEGY, 12/20/20) formoterol (Verified Allergy, Unknown, Nausea, 09/26/20) midazolam (Verified Allergy, Unknown, Anaphylaxis, 09/26/20) Home Medications Albuterol Sulfate 2.5 Mg/0.5 Ml Vial.neb, 2.5 MG INH Q4H PRN for SHORTNESS OF BREATH, (Reported) Alprazolam 0.25 Mg Tablet, 0.25 MG PO Q4H PRN for ANXIETY, (Reported) Amlodipine Besylate 10 Mg Tablet, 10 MG PO DAILY, (Reported) DO NOT GIVE IF BP <80/50 OR >180/110 AND P <50 OR >110 Cetirizine HCl 10 Mg Tablet, 10 MG PO DAILY, (Reported) Docusate Sodium 100 Mg Capsule, 100 MG PO BID, (Reported) Enoxaparin Sodium 40 Mg/0.4 Ml Syringe, 40 MG SQ HS, (Reported) Fentanyl 1 Each Patch.td72, 25 MCG PO Q72H, (Reported) Fluticasone Propionate 9.9 Ml [place].susp, 1 SPRAY NSEACH DAILY, (Reported) Fluticasone/Umeclidin/Vilanter 1 Each Blst.w.dev, 1 PUFF IH DAILY, (Reported) Levofloxacin 750 Mg Tablet, 750 MG PO DAILY Prescribed by: WILFREDO MARTÍNEZ on 01/24/21 1059 Lisinopril 20 Mg Tablet, 20 MG PO DAILY, (Reported) DO NOT GIVE IF BP <80/50 OR >180/100 AND P <50 OR >110 Melatonin 3 Mg Tablet, 6 MG PO HS PRN for INSOMNIA, (Reported) TAKES 2 (3MG) TABLETS Metoclopramide HCl 5 Mg Tablet, 5 MG PO BID, (Reported) Metoprolol Tartrate 25 Mg Tablet, 25 MG PO BID, (Reported) DO NOT GIVE BP <80/50 OR >180/110 AND P <50 OR >110 Miconazole 5 Gm Powder, 1 APPLIC TOP Q12H PRN for RASH, (Reported) Montelukast Sodium 10 Mg Tablet, 10 MG PO HS, (Reported) Nicotine 1 Each Patch.td24, 7 MG TD DAILY, (Reported) Ondansetron HCl 4 Mg Tablet, 4 MG PO Q6H PRN for NAUSEA/VOMITING-1ST LINE, (Reported) Oxycodone HCl 5 Mg Tablet, 5 MG PO EVERY 3 HOURS PRN for PAIN-SEVERE (8-10), (Reported) Pantoprazole Sodium 40 Mg Tablet.dr, 40 MG PO BID, (Reported) Phenol 177 Ml [place], 1 SPRAY MM Q2H PRN for Throat Irritation, (Reported) Polyethylene Glycol 3350 17 Gm Powd.pack, 17 GM PO BID, (Reported) Potassium Chloride 20 Meq Packet, 20 MEQ PO DAILY Prescribed by: WILFREDO MARTÍNEZ on 01/17/21 1154 Propylene Glycol/Peg 400 15 Ml Drops, 1 DROP OU Q8H PRN for DRY EYES, (Reported) Saliva Stimulant Agents Comb.3 1 Each [place], 1 EACH MM PRN PRN for DRY MOUTH, (Reported) Sennosides/Docusate Sodium 1 Each Tablet, 1 EACH PO BID, (Reported) Sodium Chloride 1 Gm Tab, 1 GM PO BID, (Reported) Sodium Hypochlorite 473 Ml Solution, 1 ML TOP BID Prescribed by: WILFREDO MARTÍNEZ on 01/17/21 1154 Sucralfate 1 Gm Tablet, 1 GM PO QIDACHS, (Reported) Tamsulosin HCl 0.4 Mg Cap, 0.4 MG PO DAILY, (Reported) Umeclidinium Brm/Vilanterol Tr 1 Each Blst.w.dev, 1 PUFF IH DAILY, (Reported) [Bethanechol] 25 TAB, 25 MG PO AC, (Reported) Patient Home Medication List Home Medication List Reviewed: Yes (TAM BUTLER MD) Review of Systems Review of Systems Constitutional: see HPI EENTM: No nose congestion, No throat pain Respiratory: No cough, No short of breath Cardiovascular: No chest pain; edema Gastrointestinal: abdominal pain (Hurts near colostomy with palpation but otherwise denies pain); No nausea, No vomiting Genitourinary: decreased output; No dysuria Musculoskeletal: no symptoms reported Skin: no symptoms reported Psychiatric/Neurological: Denies Headache; Weakness (TAM BUTLER MD) All Other Systems Reviewed Negative Unless Noted: Yes (TAM BUTLER MD) Past Kdtxcdz-Biwsqe-Slxohs Hx Past Med/Social Hx: Reviewed Nursing Past Med/Soc Hx (TAM BUTLER MD) Patient Social History Alcohol Use: Denies Use Smoking Status: Former Smoker Type Used: Cigarettes 2nd Hand Smoke Exposure: No Recent Hopitalizations: No (TAM BUTLER MD) Immunizations Up To Date Tetanus Booster (TDap): Unknown Date of Pneumonia Vaccine: Jul 25, 2020 Date of Influenza Vaccine: Aug 22, 2020 (TAM BUTLER MD) Seasonal Allergies Seasonal Allergies: Yes (TAM BUTLER MD) Past Medical History Surgeries: Yes (CATARACTS; BOWEL SURGERIES--SEE BELOW) Abdominal Respiratory: Yes COPD Currently Using CPAP: No Currently Using BIPAP: No Cardiac: Yes High Cholesterol, Hypertension Neurological: No Genitourinary: No Gastrointestinal: Yes (colon cancer) Chronic Constipation Musculoskeletal: Yes Arthritis, Chronic Back Pain Endocrine: No HEENT: Yes (cataracts removed, dentures) Hearing Impairment: Hard of Hearing, Bilateral Hearing Aide Cancer: Yes Colon Did You Recieve Any Treatments: Yes What Type of Treatment Did You: Surgical Intervention Psychosocial: No Integumentary: No Blood Disorders: No (TAM BUTLER MD) Family Medical History Reviewed Nursing Family Hx (TAM BUTLER MD) PAST SURGICAL HISTORY: -COLONOSCOPY -11/01/20--PT HAD EXTENDED RIGHT HEMICOLECTOMY WITH SUBSEQUENT ILEOCOLONIC TORSION, WITH ILEOSTOMY, MULTIPLE RESECTIONS AND REVISIONS, DEBRIDEMENTS, DRAINAGE OF INTRA-ABDOMINAL ABSCESSES, AND MESH PLACEMENT. (TAM BUTLER MD) Physical Exam-Suspected Sepsis Physical Exam Vital Signs Vital Signs - First Documented (PINKY BULLOCK) Vital Signs Capillary Refill : (TAM BUTLER MD) Height, Weight, BMI Height: '" Weight: lbs. oz. kg; 31.76 BMI Method: General Appearance: No Apparent Distress, WD/WN HEENT: PERRL/EOMI, Pharynx Normal Neck: Non Tender, Supple Respiratory: Lungs Clear, Normal Breath Sounds Cardiovascular: Regular Rate, Rhythm, No Murmur Gastrointestinal: Soft, Tenderness (Near colostomy site when palpating but no obvious mass or other concerns.), Other (Has colostomy on right lower area with LANE drain device right posterior flank. Central midline incision covered with dressing that is clean, dry and intact.) Back: Normal Inspection, No CVA Tenderness, No Vertebral Tenderness Extremity: Normal Range of Motion, Non Tender Neurologic/Psychiatric: Alert, Oriented x3 Skin: normal color, warm/dry (TAM BUTLER MD) Focused Exam Lactate Level 02/03/21 17:22: Lactic Acid Level 1.27 (PINKY BULLOCK) Lactic Acid Level Laboratory Tests Test 02/03/21 17:22 Lactic Acid Level 1.27 MMOL/L (0.50-2.00) (PINKY BULLOCK) Procedures/Interventions Lumen: triple Central Line Procedure: betadine prep (Chlorhexidine prep), sterile drapes applied, sterile dressing applied Position: internal jugular (R) Anesthesia: Lidocaine (1% without epinephrine) Volume Anesthetic (ccs): 4 Complications: none Post Position: sutured, good blood return, position confirmed w/ CXR Risks, benefits and alternatives were discussed with the patient and she con sented to the procedure. She was positioned in the usual format and using the usual sterile garment and drapes the patient was dressed out. The skin was thoroughly cleaned with the supplied chlorhexidine prep. After the prep had dried a sterile drape was placed. The 20 cm 7 Danish triple-lumen catheter was flushed with sterile saline. We used ultrasound guidance to pass the introducer needle into the right internal jugular without difficulty. A guidewire was placed easily without difficulty. No ectopy was seen on the monitor. The supplied 11 blade scalpel was used to make a 2 mm incision at the inferior portion of the introducer needle. The introducer needle was replaced with the dilator. The dilator was taken out and the patient had the central lumen of the triple lumen catheter threaded over the guidewire and placed at 14 cm. The guidewire was removed and the triple-lumen catheter was stitched in place using the supplied braided stitch at 2 different points. The catheter withdrew blood and flushed easily. A sterile dressing was placed over the catheter. The patient tolerated the procedure well. A chest x-ray was obtained that demonstrated no pneumothorax and a new interval central catheter over the shadow of the right internal jugular down the superior vena cava and terminating just proximal to the right atria. (PINKY BULLOCK) Date of ETT Placement: Nov 15, 2020 (TAM BUTLER MD) Progress/Results/Core Measures Suspected Sepsis SIRS Temperature: Pulse: Respiratory Rate: Blood Pressure / Mean: (TAM BUTLER MD) Results/Orders Lab Results Laboratory Tests Test 02/03/21 17:22 02/03/21 18:36 02/03/21 19:01 Range/Units White Blood Count 14.4 H 4.3-11.0 10^3/uL Red Blood Count 3.52 L 3.80-5.11 10^6/uL Hemoglobin 10.3 L 11.5-16.0 g/dL Hematocrit 33 L 35-52 % Mean Corpuscular Volume 92 80-99 fL Mean Corpuscular Hemoglobin 29 25-34 pg Mean Corpuscular Hemoglobin Concent 32 32-36 g/dL Red Cell Distribution Width 15.5 H 10.0-14.5 % Platelet Count 508 H 130-400 10^3/uL Mean Platelet Volume 8.9 L 9.0-12.2 fL Immature Granulocyte % (Auto) 2 % Neutrophils (%) (Auto) 56 42-75 % Lymphocytes (%) (Auto) 22 12-44 % Monocytes (%) (Auto) 10 0-12 % Eosinophils (%) (Auto) 9 0-10 % Basophils (%) (Auto) 1 0-10 % Neutrophils # (Auto) 8.1 H 1.8-7.8 10^3/uL Lymphocytes # (Auto) 3.2 1.0-4.0 10^3/uL Monocytes # (Auto) 1.4 H 0.0-1.0 10^3/uL Eosinophils # (Auto) 1.2 H 0.0-0.3 10^3/uL Basophils # (Auto) 0.1 0.0-0.1 10^3/uL Immature Granulocyte # (Auto) 0.4 H 0.0-0.1 10^3/uL Neutrophils % (Manual) 47 % Lymphocytes % (Manual) 33 % Monocytes % (Manual) 9 % Eosinophils % (Manual) 8 % Basophils % (Manual) 0 % Metamyelocytes % 3 % Band Neutrophils 0 % Anisocytosis SLIGHT Prothrombin Time 15.4 H 12.2-14.7 SEC INR Comment 1.2 0.8-1.4 Activated Partial Thromboplast Time 28 24-35 SEC Lactic Acid Level 1.27 0.50-2.00 MMOL/L Sodium Level 129 L 135-145 MMOL/L Potassium Level 6.0 H 3.6-5.0 MMOL/L Chloride Level 102 98-107 MMOL/L Carbon Dioxide Level 17 L 21-32 MMOL/L Anion Gap 10 5-14 MMOL/L Blood Urea Nitrogen 35 H 7-18 MG/DL Creatinine 4.28 H 0.60-1.30 MG/DL Estimat Glomerular Filtration Rate 10 BUN/Creatinine Ratio 8 Glucose Level 113 H 70-105 MG/DL Calcium Level 7.5 L 8.5-10.1 MG/DL Corrected Calcium 8.3 L 8.5-10.1 MG/DL Total Bilirubin 0.2 0.1-1.0 MG/DL Aspartate Amino Transf (AST/SGOT) 13 5-34 U/L Alanine Aminotransferase (ALT/SGPT) 11 0-55 U/L Alkaline Phosphatase 82 40-136 U/L Total Protein 5.9 L 6.4-8.2 GM/DL Albumin 3.0 L 3.2-4.5 GM/DL Urine Color YELLOW Urine Clarity CLEAR Urine pH 5.0 5-9 Urine Specific Manquin 1.025 H 1.016-1.022 Urine Protein NEGATIVE NEGATIVE Urine Glucose (UA) NEGATIVE NEGATIVE Urine Ketones NEGATIVE NEGATIVE Urine Nitrite NEGATIVE NEGATIVE Urine Bilirubin NEGATIVE NEGATIVE Urine Urobilinogen 0.2 < = 1.0 MG/DL Urine Leukocyte Esterase NEGATIVE NEGATIVE Urine RBC (Auto) NEGATIVE NEGATIVE Urine RBC NONE /HPF Urine WBC RARE /HPF Urine Squamous Epithelial Cells 0-2 /HPF Urine Crystals PRESENT H /LPF Urine Amorphous Sediment FEW CHERI URATES H /LPF Urine Bacteria TRACE /HPF Urine Casts PRESENT /LPF Urine Hyaline Casts RARE /LPF Urine Mucus NEGATIVE /LPF Urine Culture Indicated NO (PINKY BULLOCK) My Orders Orders - PINKY BULLOCK Ed Iv/Invasive Line Start (02/03/21 19:23) Ns Iv 1000 Ml (Sodium Chloride 0.9%) (02/03/21 19:30) Sodium Polystyrene Sulfonate (Kayexalate (02/03/21 19:30) Calcium Chloride 10% Injection (Calcium (02/03/21 19:30) Albuterol Pre-Mix Nebs (Rt) (Proventil (02/03/21 19:23) Svn Small Volume Nebulizer (02/03/21 19:23) Lorazepam Injection (Ativan Injection) (02/03/21 19:30) (PINKY BULLOCK) Medications Given in ED Current Medications Medications Dose Ordered Sig/Raymond Route Start Time Stop Time Status Last Admin Dose Admin Lorazepam 0.5 mg ONCE ONCE IVP 02/03/21 19:30 02/03/21 19:31 DC 02/03/21 19:35 0.5 MG Sodium Polystyrene Sulfonate 15 gm ONCE ONCE PO 02/03/21 19:30 02/03/21 19:31 DC 02/03/21 19:39 15 GM (PINKY BULLOCK) Vital Signs/I&O 02/03/21 02/03/21 02/03/21 02/03/21 17:15 17:15 18:32 19:42 Temp 36.5 Pulse 81 89 Resp 18 18 B/P (MAP) 96/52 (67) 102/47 (65) Pulse Ox 92 95 93 90 O2 Delivery Nasal Cannula Nasal Cannula Nasal Cannula Nasal Cannula O2 Flow Rate 2.00 2.00 2.00 3.00 (PINKY BULLOCK) Vital Signs/I&O Capillary Refill : (TAM BUTLER MD) Progress Note : Progress Note Seen and evaluated on arrival by EMS. Patient has normal saline 1 L bolus initiated by EMS running. We will initiate sepsis protocol +1 more liter of normal saline. Patient is mentating well and O2 sats mid 90s on 1 L and slightly improved from that on 2 L via nasal cannula. Monitor patient. (TAM BUTLER MD) Progress Note #1: Time: 18:44 Progress Note #2: Time: 18:44 Progress Note Assumed care of the patient at shift change. We have made 4 separate attempts of blood draw unsuccessfully to get a CMP which is the reason she is here for her hyper kalemia however she is hypoxic and has hypertension so infection is suspected. I agree with the above documented history and physical exam. We put a central line in for blood draws and because her blood pressure was quite soft. She does however appear to be responding to IV fluids and her blood pressure is in the upper 90s after part of her fluids are in. We will not need to start pressors at this moment. Progress Note #3: Time: 19:21 Progress Note Plan to give her 3 albuterol inhalers azwt-la-fles, calcium chloride and Kayexalate. Patient is tearful and anxious and reasonably so. We discussed the case with her and have offered her some Ativan which she agreed to take so half milligram IV We did have a end-of-life discussion about her CODE STATUS and she feels she would like to be full code. She says if she cannot come off of machines then she puts in the hands of her children to decide what to do with her but for now she is a full code. We are initiating a Lam catheter. The patient has not been able to produce any urine spontaneously after 2 L of fluid (1 L by EMS and 1 L by ER) and a 3rd L was ordered. Her right IJ was plump on ultrasound but easily compressible. She does have a history of urinary retention which could explain her renal failure. (PINKY BULLOCK) Diagnostic Imaging Diagonstic Imaging: Xray Plain Films/CT/US/NM/MRI: chest Comments Central line in good position in the superior vena cava with the tip proximal small to the right atria. No evidence of pneumothorax or pneumonia. [facility]. [place], [place] NAME: GABO OLVERA [facility] REC#: [id number] PT STATUS: REG ER : 1945 PHYSICIAN: KALYA DUNCAN APRN ADMIT DATE: 02/03/21/ER Signed Date of Exam:02/03/21 CHEST 1 VIEW, AP/PA ONLY INDICATION: Central venous catheter evaluation Portable AP view of the chest is obtained with comparison made to study of 01/21/2021 There is air trapping bilaterally. There has been placement of right jugular central venous catheter with the tip projecting over the mediastinum just above the aortic arch. This may reside near the confluence of innominate veins. No pneumothorax is seen. There is no other evidence of adverse change. IMPRESSION: Background emphysema without evidence of pneumothorax or other complication post right jugular central venous catheter placement. Catheter tip projects over the upper mediastinum near the level of brachiocephalic confluence. Dictated by: Dictated on workstation # [id number] Dict: 02/03/211854 Trans: 02/03/211858 [facility] [id number] Interpreted by: TASIA BRIZUELA MD Electronically signed by: TASIA BRIZUELA MD 02/03/211858 Reviewed: Reviewed by Me (PINKY BULLOCK) Departure Communication (Admissions) Time/Spoke to Admitting Phy: 19:30 Discussed the case with Dr. Martínez and she agrees to admit the patient to the ICU with a Lam catheter and fluids. (PINKY BULLOCK) Impression Primary Impression: Acute kidney failure Qualified Codes: N17.9 - Acute kidney failure, unspecified Additional Impressions: Hyperkalemia Acute respiratory failure with hypoxemia Disposition: ADMITTED INPATIENT Condition: Stable Admissions Decision to Admit Reason: Admit from ER (General) Decision to Admit/Date: Feb 03, 2021 Time/Decision to Admit Time: 19:25 (PINKY BULLOCK) Departure-Patient Inst. Referrals: LAWANDA CASAS MD (PCP/Family) Primary Care Physician TAM BUTLER MD Feb 03, 2021 17:32 PINKY BULLOCK Feb 03, 2021 18:49
[2021-02-03 17:37] LABS: BASOPHILS # (AUTO) 0.1 10^3/uL (0.0-0.1); BASOPHILS % (AUTO) 1 % (0-10); EOSINOPHILS # (AUTO) 1.2 10^3/uL (0.0-0.3); EOSINOPHILS % (AUTO) 9 % (0-10); HEMATOCRIT 33 % (35-52); HEMOGLOBIN 10.3 g/dL (11.5-16.0); LYMPHOCYTES # (AUTO) 3.2 10^3/uL (1.0-4.0); LYMPHOCYTES % (AUTO) 22 % (12-44); MEAN CORPUSCULAR HEMOGLOBIN 29 pg (25-34); MEAN CORPUSCULAR HGB CONC 32 g/dL (32-36); MEAN CORPUSCULAR VOLUME 92 fL (80-99); MEAN PLATELET VOLUME 8.9 fL (9.0-12.2); MONOCYTES # (AUTO) 1.4 10^3/uL (0.0-1.0); MONOCYTES % (AUTO) 10 % (0-12); NEUTROPHILS # (AUTO) 8.1 10^3/uL (1.8-7.8); NEUTROPHILS % (AUTO) 56 % (42-75); PLATELET COUNT 508 10^3/uL (130-400); WHITE BLOOD COUNT 14.4 10^3/uL (4.3-11.0)
[2021-02-03 17:58] LABS: INR 1.2 (0.8-1.4); PROTHROMBIN TIME PATIENT 15.4 SEC (12.2-14.7)
[2021-02-03 18:11] LABS: ANISOCYTOSIS SLIGHT; BAND NEUTROPHILS 0 %; BASOPHILS % (MANUAL) 0 %; EOSINOPHILS % (MANUAL) 8 %; LYMPHOCYTES % (MANUAL) 33 %; METAMYELOCYTES % 3 %; MONOCYTES % (MANUAL) 9 %; NEUTROPHILS % (MANUAL) 47 %
[2021-02-03 18:53] LABS: CALCIUM 7.5 MG/DL (8.5-10.1)
[2021-02-03 18:55] LABS: TOTAL PROTEIN 5.9 GM/DL (6.4-8.2)
[2021-02-03 18:56] LABS: BILIRUBIN,TOTAL 0.2 MG/DL (0.1-1.0)
[2021-02-03 18:58] LABS: CREATININE SERUM 4.28 MG/DL (0.60-1.30)
--- NOTE | 2021-02-03 18:59 | Diagnostic Imaging Report ---
INDICATION: Central venous catheter evaluation Portable AP view of the chest is obtained with comparison made to study of 01/21/2021 There is air trapping bilaterally. There has been placement of right jugular central venous catheter with the tip projecting over the mediastinum just above the aortic arch. This may reside near the confluence of innominate veins. No pneumothorax is seen. There is no other evidence of adverse change. IMPRESSION: Background emphysema without evidence of pneumothorax or other complication post right jugular central venous catheter placement. Catheter tip projects over the upper mediastinum near the level of brachiocephalic confluence. Dictated by: Dictated on workstation # [id number]
[2021-02-03 19:07] LABS: BILIRUBIN,URINE NEGATIVE (NEGATIVE); CLARITY,URINE CLEAR; GLUCOSE, URINE (UA) NEGATIVE (NEGATIVE); KETONES,URINE NEGATIVE (NEGATIVE); LEUKOCYTE ESTERASE ,URINE NEGATIVE (NEGATIVE); NITRITE,URINE NEGATIVE (NEGATIVE); PROTEIN,URINE NEGATIVE (NEGATIVE)
[2021-02-03 19:14] LABS: COLOR,URINE YELLOW
[2021-02-03 19:16] LABS: AMORPHOUS SEDIMENT,UR FEW AMOR URATES /LPF; BACTERIA,URINE TRACE /HPF; HYALINE CASTS, URINE RARE /LPF; SQUAMOUS EPITHELIAL CELL,UR 0-2 /HPF; WBC,URINE RARE /HPF
[2021-02-03] MEDS ORDERED: RT-ALBUTEROL SULF 2.5 MG/3 ML PRE-MIX VIAL INH STA (19:23)
[2021-02-03] MEDS ORDERED: SOD POLYSTERENE 15 GM/60 ML (KAYEXALATE) UNIT DOSE PO ONE (19:30)
[2021-02-03] MEDS ORDERED: CALCIUM CHLORIDE 1 GM/10 ML (IMS) SYR INJ ONE (19:30)
[2021-02-03] MEDS ORDERED: LORazepam INJ 2 MG/ML (ATIVAN) VIAL IVP ONE (19:30)
[2021-02-03] MEDS ORDERED: NS IV 1000 ML 1,000 ML IV SCH ×2 (19:30→22:00)
[2021-02-03] MEDS ORDERED: LORazepam INJ 2 MG/ML (ATIVAN) VIAL IVP PRN (22:00)
[2021-02-03] MEDS ORDERED: ONDANSETRON 4 MG/2 ML (SDV) Z0FRAN IVP PRN (22:00)
[2021-02-03 22:12] LABS: POTASSIUM 5.4 MMOL/L (3.6-5.0)
[2021-02-03 22:13] LABS: ABG BASE EXCESS -6.4 MMOL/L (-2.5-2.5); ABG OXYGEN SATURATION 66 % (94-100); ABG PCO2 38 MMHG (35-45); ABG PO2 41 MMHG (79-93)
[2021-02-03 22:13] LABS: CALCIUM 8.7 MG/DL (8.5-10.1)
[2021-02-03 22:15] LABS: TOTAL PROTEIN 6.1 GM/DL (6.4-8.2)
[2021-02-03 22:16] LABS: ABG PH 7.31 (7.37-7.43); ALLENS TEST POS; INSPIRED O2 3L; PATIENT TEMP 36.5; VENTILATOR NO
[2021-02-03 22:16] LABS: BILIRUBIN,TOTAL 0.3 MG/DL (0.1-1.0)
[2021-02-03 22:18] LABS: CREATININE SERUM 3.75 MG/DL (0.60-1.30)
[2021-02-03 22:30] VITALS: BP 96/52
[2021-02-03] MEDS: metroNIDAZOLE 500MG/100ML IVPB 100 ML IV SCH (22:38)
[2021-02-03] MEDS ORDERED: RT-ALBUTEROL SULF 2.5 MG/3 ML PRE-MIX VIAL INH PRN (22:45)
[2021-02-04] MEDS: SOD POLYSTERENE 15 GM/60 ML (KAYEXALATE) UNIT DOSE PO SCH ×2 (01:36→06:00)
[2021-02-04 03:55] LABS: BASOPHILS # (AUTO) 0.1 10^3/uL (0.0-0.1); BASOPHILS % (AUTO) 1 % (0-10); EOSINOPHILS % (AUTO) 9 % (0-10); HEMATOCRIT 27 % (35-52); HEMOGLOBIN 8.4 g/dL (11.5-16.0); LYMPHOCYTES # (AUTO) 2.4 10^3/uL (1.0-4.0); LYMPHOCYTES % (AUTO) 21 % (12-44); MEAN CORPUSCULAR HEMOGLOBIN 29 pg (25-34); MEAN CORPUSCULAR HGB CONC 32 g/dL (32-36); MEAN CORPUSCULAR VOLUME 92 fL (80-99); MEAN PLATELET VOLUME 9.1 fL (9.0-12.2); MONOCYTES # (AUTO) 1.2 10^3/uL (0.0-1.0); MONOCYTES % (AUTO) 10 % (0-12); NEUTROPHILS # (AUTO) 6.5 10^3/uL (1.8-7.8); NEUTROPHILS % (AUTO) 57 % (42-75); PLATELET COUNT 387 10^3/uL (130-400); WHITE BLOOD COUNT 11.3 10^3/uL (4.3-11.0)
[2021-02-04 04:02] LABS: POTASSIUM 5.7 MMOL/L (3.6-5.0)
[2021-02-04 04:03] LABS: CALCIUM 8.4 MG/DL (8.5-10.1)
[2021-02-04 04:04] LABS: TOTAL PROTEIN 5.8 GM/DL (6.4-8.2)
[2021-02-04 04:06] LABS: BILIRUBIN,TOTAL 0.3 MG/DL (0.1-1.0)
[2021-02-04 04:07] LABS: PHOSPHORUS 5.9 MG/DL (2.3-4.7)
[2021-02-04 04:08] LABS: CREATININE SERUM 3.05 MG/DL (0.60-1.30)
[2021-02-04 04:36] LABS: MAGNESIUM 0.7 MG/DL (1.6-2.4)
[2021-02-04] MEDS ORDERED: DEXTROSE 50% 50 ML (IMS) SYR IV ONE (04:45)
[2021-02-04] MEDS ORDERED: LACTATED RINGERS 1,000 ML IV SCH (04:45)
[2021-02-04] MEDS ORDERED: SODIUM BICARB 8.4% 50 MEQ/50 ML (ABBOTT) SYR IV ONE (04:45)
[2021-02-04] MEDS ORDERED: inSUlin (REGULAR) HUMAN 1 UNIT/0.01 ML (CHARGE PER UNIT) IV ONE (04:45)
--- NOTE | 2021-02-04 04:47 | Pulmonary Consultation ---
History of Present Illness History of Present Illness Date Seen by Provider: Feb 04, 2021 Time Seen by Provider: 04:42 Date of Admission Allergies and Home Medications Allergies Coded Allergies: Penicillins (Verified Allergy, Unknown, Anaphylaxis, 09/26/20) budesonide (Verified Allergy, Unknown, Nausea, PT USES TRELEGY, 12/20/20) formoterol (Verified Allergy, Unknown, Nausea, 09/26/20) midazolam (Verified Allergy, Unknown, Anaphylaxis, 09/26/20) Home Medications Albuterol Sulfate 2.5 Mg/0.5 Ml Vial.neb, 2.5 MG INH Q4H PRN for SHORTNESS OF BREATH, (Reported) Alprazolam 0.25 Mg Tablet, 0.25 MG PO Q4H PRN for ANXIETY, (Reported) Amlodipine Besylate 10 Mg Tablet, 10 MG PO DAILY, (Reported) DO NOT GIVE IF BP <80/50 OR >180/110 AND P <50 OR >110 Cetirizine HCl 10 Mg Tablet, 10 MG PO DAILY, (Reported) Docusate Sodium 100 Mg Capsule, 100 MG PO BID, (Reported) Enoxaparin Sodium 40 Mg/0.4 Ml Syringe, 40 MG SQ HS, (Reported) Fentanyl 1 Each Patch.td72, 25 MCG PO Q72H, (Reported) Fluticasone Propionate 9.9 Ml [place].susp, 1 SPRAY NSEACH DAILY, (Reported) Fluticasone/Umeclidin/Vilanter 1 Each Blst.w.dev, 1 PUFF IH DAILY, (Reported) Levofloxacin 750 Mg Tablet, 750 MG PO DAILY Prescribed by: WILFREDO MARTÍNEZ on 01/24/21 1059 Lisinopril 20 Mg Tablet, 20 MG PO DAILY, (Reported) DO NOT GIVE IF BP <80/50 OR >180/100 AND P <50 OR >110 Melatonin 3 Mg Tablet, 6 MG PO HS PRN for INSOMNIA, (Reported) TAKES 2 (3MG) TABLETS Metoclopramide HCl 5 Mg Tablet, 5 MG PO BID, (Reported) Metoprolol Tartrate 25 Mg Tablet, 25 MG PO BID, (Reported) DO NOT GIVE BP <80/50 OR >180/110 AND P <50 OR >110 Miconazole 5 Gm Powder, 1 APPLIC TOP Q12H PRN for RASH, (Reported) Montelukast Sodium 10 Mg Tablet, 10 MG PO HS, (Reported) Nicotine 1 Each Patch.td24, 7 MG TD DAILY, (Reported) Ondansetron HCl 4 Mg Tablet, 4 MG PO Q6H PRN for NAUSEA/VOMITING-1ST LINE, (Reported) Oxycodone HCl 5 Mg Tablet, 5 MG PO EVERY 3 HOURS PRN for PAIN-SEVERE (8-10), (Reported) Pantoprazole Sodium 40 Mg Tablet.dr, 40 MG PO BID, (Reported) Phenol 177 Ml [place], 1 SPRAY MM Q2H PRN for Throat Irritation, (Reported) Polyethylene Glycol 3350 17 Gm Powd.pack, 17 GM PO BID, (Reported) Potassium Chloride 20 Meq Packet, 20 MEQ PO DAILY Prescribed by: WILFREDO MARTÍNEZ on 01/17/21 1154 Propylene Glycol/Peg 400 15 Ml Drops, 1 DROP OU Q8H PRN for DRY EYES, (Reported) Saliva Stimulant Agents Comb.3 1 Each [place], 1 EACH MM PRN PRN for DRY MOUTH, (Reported) Sennosides/Docusate Sodium 1 Each Tablet, 1 EACH PO BID, (Reported) Sodium Chloride 1 Gm Tab, 1 GM PO BID, (Reported) Sodium Hypochlorite 473 Ml Solution, 1 ML TOP BID Prescribed by: WILFREDO MARTÍNEZ on 01/17/21 1154 Sucralfate 1 Gm Tablet, 1 GM PO QIDACHS, (Reported) Tamsulosin HCl 0.4 Mg Cap, 0.4 MG PO DAILY, (Reported) Umeclidinium Brm/Vilanterol Tr 1 Each Blst.w.dev, 1 PUFF IH DAILY, (Reported) [Bethanechol] 25 TAB, 25 MG PO AC, (Reported) Past Xojwyjf-Ttlbgy-Zlrlhj Hx Past Med/Social Hx: Reviewed Nursing Past Med/Soc Hx Patient Social History Alcohol Use: Denies Use Smoking Status: Former Smoker Type Used: Cigarettes 2nd Hand Smoke Exposure: No Recent Infectious Disease Expo: No Recent Hopitalizations: No Have you traveled recently?: No Alcohol Use?: No Immunizations Up To Date Tetanus Booster (TDap): Unknown Date of Pneumonia Vaccine: Jul 25, 2020 Date of Influenza Vaccine: Aug 06, 2020 Seasonal Allergies Seasonal Allergies: Yes Past Medical History Surgeries: Yes (CATARACTS; BOWEL SURGERIES--SEE BELOW) Abdominal Respiratory: Yes COPD Currently Using CPAP: No Currently Using BIPAP: No Cardiac: Yes High Cholesterol, Hypertension Neurological: No Genitourinary: No Gastrointestinal: Yes (colon cancer) Chronic Constipation Musculoskeletal: Yes Arthritis, Chronic Back Pain Endocrine: No HEENT: Yes (cataracts removed, dentures) Hearing Impairment: Hard of Hearing, Bilateral Hearing Aide Cancer: Yes Colon Did You Recieve Any Treatments: Yes What Type of Treatment Did You: Surgical Intervention Psychosocial: No Integumentary: No Blood Disorders: No Family Medical History Reviewed Nursing Family Hx PAST SURGICAL HISTORY: -COLONOSCOPY -11/01/20--PT HAD EXTENDED RIGHT HEMICOLECTOMY WITH SUBSEQUENT ILEOCOLONIC TORSION, WITH ILEOSTOMY, MULTIPLE RESECTIONS AND REVISIONS, DEBRIDEMENTS, DRAINAGE OF INTRA-ABDOMINAL ABSCESSES, AND MESH PLACEMENT. Review of Systems Time Seen by Provider: 04:42 Sepsis Event Evaluation Height, Weight, BMI Height: '" Weight: lbs. oz. kg; 29.10 BMI Method: Exam Exam Vital Signs Date Time Temp Pulse Resp B/P (MAP) Pulse Ox O2 Delivery O2 Flow Rate FiO2 02/04/21 04:15 89 15 92/43 (59) 94 Nasal Cannula 3.00 02/04/21 04:01 95 Nasal Cannula 3.00 02/04/21 04:00 85 14 80/42 (55) 95 Nasal Cannula 3.00 02/04/21 03:00 93 16 92/41 (58) 95 Nasal Cannula 3.00 02/04/21 02:00 95 13 84/43 (57) 95 Nasal Cannula 3.00 02/04/21 01:00 97 16 97/43 (61) 95 Nasal Cannula 3.00 02/04/21 01:00 97 02/04/21 00:00 95 Nasal Cannula 3.00 02/04/21 00:00 99 12 98/39 (58) 94 Nasal Cannula 3.00 02/03/21 23:00 101 13 101/45 (63) 95 Nasal Cannula 3.00 02/03/21 22:30 36.5 81 90 02/03/21 22:30 100 13 91/44 (60) 95 Nasal Cannula 3.00 02/03/21 22:01 36.5 105 19 125/63 (83) 95 Nasal Cannula 3.00 02/03/21 21:50 103 14 106/45 (65) 94 Nasal Cannula 3.00 02/03/21 21:40 103 15 99/43 (61) 94 Nasal Cannula 3.00 02/03/21 21:34 105 02/03/21 21:32 103 17 125/63 (83) 95 Nasal Cannula 3.00 02/03/21 21:27 95 Nasal Cannula 3.00 02/03/21 21:08 36.2 101 19 96/41 (65) 93 Nasal Cannula 3.00 02/03/21 19:42 90 Nasal Cannula 3.00 02/03/21 18:32 89 18 102/47 (65) 93 Nasal Cannula 2.00 02/03/21 17:15 95 Nasal Cannula 2.00 02/03/21 17:15 36.5 81 18 96/52 (67) 92 Nasal Cannula 2.00 I & O 02/04/21 07:00 Intake Total 2000 ml Output Total 1000 ml Balance 1000 ml Height & Weight Height: '" Weight: lbs. oz. kg; 29.10 BMI Method: General Appearance: No Apparent Distress, WD/WN HEENT: PERRL/EOMI, Pharynx Normal Neck: Non Tender, Supple Respiratory: Lungs Clear, Normal Breath Sounds Cardiovascular: Regular Rate, Rhythm, No Murmur Capillary Refill: Less Than 3 Seconds Extremity: Normal Range of Motion, Non Tender Neurologic/Psychiatric: Alert, Oriented x3 Results Lab Laboratory Tests 02/03/21 17:22 02/03/21 18:36 02/03/21 21:48 02/04/21 03:30 Assessment/Plan Assessment/Plan ARF with hyperkalemia, metabolic acidosis, hyperphos -Will give insulin, bicarb, and D 50 -Give liter bolus of LR -Change IVF to LR -Repeat labs 2hrs after mag replacement Hypotension -Increase IVF Critical hypomag -Give 4gms and repeat labs Diarrhea -CDIFF pending Hypoxemia -Replace Anemia -Monitor GIOVANNA BORREGO DO Feb 04, 2021 04:47
[2021-02-04] MEDS ORDERED: SODIUM BICARB 8.4% 50 MEQ/50 ML VIAL ONE (05:13)
[2021-02-04] MEDS: MAGNESIUM 1 GM/100 ML IVPB 100 ML IV SCH ×3 (05:28→06:39)
--- NOTE | 2021-02-04 05:28 | History & Physical ---
History of Present Illness HPI/Chief Complaint CC: Acute renal failure HPI: This is a 75yoWF intermediate patient who I know very well considering her multiple hospital stays the last four months due to colon cancer resection complications. She had presented with not feeling well, found to have creatinine of 4.2 and potassium of 6.2. Pt was given aggressive fluids overnight and hyperkalemia management managed by EICU and Dr. Moreno. She does have good urinary output and her creatinine is now 3.0. We are still working on getting her back to her baseline. At this current time pt denies any pain and I will have Dr. Lynch place a Gronshong port which she needs for chemotherapy for colon cancer anyway once she is able to be strong enough to do that and I will have Dr. Morgan see her because we need to get an oncology plan to start treatment. Source: patient, RN/MD, old records Exam Limitations: no limitations Date Seen 02/04/21 Time Seen by a Provider: 09:00 Attending Physician Genna Martínez DO PCP Ryan Mcnulty MD Referring Physician Date of Admission Feb 03, 2021 at 19:30 Home Medications & Allergies Home Medications Reviewed patient Home Medication Reconciliation performed by pharmacy medication reconciliations senior qc technician and/or nursing. Patients Allergies have been reviewed. Allergies Allergies Coded Allergies Penicillins (Verified Allergy, Unknown, Anaphylaxis, 09/26/20) budesonide (Verified Allergy, Unknown, Nausea, PT USES TRELEGY, 12/20/20) formoterol (Verified Allergy, Unknown, Nausea, 09/26/20) midazolam (Verified Allergy, Unknown, Anaphylaxis, pt has rec Lorazepam & alprazolam in the past, 02/04/21) Has received Lorazepam & alprazolam without issue Past Qdomayo-Giudhw-Ptyphb Hx Past Med/Social Hx: Reviewed Nursing Past Med/Soc Hx, Reviewed and Corrections made Patient Social History Marrital Status: single Employed/Student: retired Alcohol Use: Denies Use Recreational Drug Use: No Smoking Status: Former Smoker Type Used: Cigarettes 2nd Hand Smoke Exposure: No Recent Foreign Travel: No Contact w/other who traveled: No Recent Hopitalizations: No Recent Infectious Disease Expo: No Immunizations Up To Date Tetanus Booster (TDap): Unknown Date of Pneumonia Vaccine: Jul 25, 2020 Date of Influenza Vaccine: Aug 06, 2020 Seasonal Allergies Seasonal Allergies: Yes Past Medical History Surgeries: Abdominal Respiratory: COPD, Pneumonia Currently Using CPAP: No Currently Using BIPAP: No Cardiac: High Cholesterol, Hypertension Genitourinary: Bladder Infection, Renal Failure Gastrointestinal: Chronic Constipation Musculoskeletal: Arthritis, Chronic Back Pain Hearing Impairment: Hard of Hearing, Bilateral Hearing Aide Cancer: Colon Did You Recieve Any Treatments: Yes What Type of Treatment Did You: Surgical Intervention History of Blood Disorders: No Family History Reviewed Nursing Family Hx PAST SURGICAL HISTORY: -COLONOSCOPY -11/01/20--PT HAD EXTENDED RIGHT HEMICOLECTOMY WITH SUBSEQUENT ILEOCOLONIC TORSION, WITH ILEOSTOMY, MULTIPLE RESECTIONS AND REVISIONS, DEBRIDEMENTS, DRAINAGE OF INTRA-ABDOMINAL ABSCESSES, AND MESH PLACEMENT. Review of Systems Constitutional: see HPI, weakness EENTM: no symptoms reported Respiratory: no symptoms reported Cardiovascular: no symptoms reported Gastrointestinal: no symptoms reported Genitourinary: decreased output Musculoskeletal: back pain, joint pain Skin: no symptoms reported Psychiatric/Neurological: No Symptoms Reported All Other Systems Reviewed Negative Unless Noted: Yes Physical Exam Physical Exam Vital Signs Vital Signs - First Documented 02/04/21 15:06 FiO2 32 Capillary Refill : Less Than 3 Seconds Height, Weight, BMI Height: '" Weight: lbs. oz. kg; 29.10 BMI Method: General Appearance: No Apparent Distress, WD/WN, Chronically ill HEENT: PERRL/EOMI, Pharynx Normal Neck: Non Tender, Supple Respiratory: Lungs Clear, Normal Breath Sounds Cardiovascular: Regular Rate, Rhythm, No Murmur Gastrointestinal: Soft, Tenderness (Near colostomy site when palpating but no obvious mass or other concerns.), Other (Has colostomy on right lower area with LANE drain device right posterior flank. Central midline incision covered with dressing that is clean, dry and intact.) Back: Normal Inspection, No CVA Tenderness, No Vertebral Tenderness Extremity: Normal Range of Motion, Non Tender Neurologic/Psychiatric: Alert, Oriented x3 Results Results/Procedures Labs Laboratory Tests 02/03/21 17:22 02/03/21 18:36 02/03/21 21:48 02/04/21 03:30 02/04/21 22:14 02/05/21 04:18 Patient resulted labs reviewed. Assessment/Plan Admission Diagnosis Assessment: MOUSTAPHA Profound dehydration Hyperkalemia Colon cancer s/p resection 3 months ago Debility requiring NH admit Abdominal abscess s/p drain placement last admit Pseudomonas Severe COPD Former smoker Severe TELIDA Plan: IVF Monitor closely Hyperkalemia treatment Home meds Admission Status: Inpatient Order (span 2 midnights) Reason for Inpatient Admission: arf Diagnosis/Problems Diagnosis/Problems (1) Acute kidney failure Status: Acute Qualifiers: Acute renal failure type: unspecified Qualified Codes: N17.9 - Acute kidney failure, unspecified (2) Hyperkalemia Status: Acute (3) Presbycusis of both ears (4) Ileostomy in place GENNA MARTÍNEZ DO Feb 04, 2021 05:28
[2021-02-04] MEDS: LACTATED RINGERS 1,000 ML IV SCH ×3 (05:29→18:32)
[2021-02-04] MEDS: POTASSIUM CL 10MEQ/50ML IVPB 50 ML IV SCH (05:32)
[2021-02-04] MEDS: KCL 20 MEQ TAB (K-DUR) PO SCH (05:33)
[2021-02-04] MEDS: MAGNESIUM OXIDE (MAG-OX)400 MG TAB PO SCH ×2 (05:34→17:58)
--- NOTE | 2021-02-04 05:45 | Diagnostic Imaging Report ---
EXAMINATION: Portable erect AP chest at 3:30 AM INDICATION: Hypoxia The heart is stable in size when compared to the prior exam of 02/03/2021. In the interval since the prior study an area of increased density has developed near the apex of the heart. This is suspicious for mild pneumonia/atelectasis. The lungs are otherwise generally clear. The mediastinum is not widened. The osseous structures are intact. The central venous catheter on the right seen previously is unchanged. IMPRESSION: 1. The new area of increased density near the apex of the heart is suspicious for mild pneumonia/atelectasis. Clinical follow-up is recommended. 2. The overall appearance of the chest is otherwise stable. Dictated by: Dictated on workstation # [id number]
[2021-02-04] MEDS ORDERED: RT-ALBUTEROL SULF 2.5 MG/3 ML PRE-MIX VIAL INH SCH ×2 (08:00)
[2021-02-04] MEDS ORDERED: POTA20PA28 PO (08:27)
[2021-02-04] MEDS ORDERED: MULT-1076 PO (08:27)
[2021-02-04] MEDS ORDERED: MAGN400T39 PO (08:27)
[2021-02-04] MEDS ORDERED: DAKIN S 0.125% TOP (08:27)
[2021-02-04] MEDS: metroNIDAZOLE 500MG/100ML IVPB 100 ML IV SCH ×2 (09:18→21:30)
--- NOTE | 2021-02-04 14:10 | Progress Note-Pre Operative ---
Pre-Operative Progress Note H&P Reviewed The H&P was reviewed, patient examined and no changes noted. Date Seen by Provider: Feb 04, 2021 Time Seen by Provider: 14:30 Date H&P Reviewed: Feb 04, 2021 Time H&P Reviewed: 14:30 Pre-Operative Diagnosis: recurrent high output fistula, dehydration, renal failure. MICHAEL XIONG MD Feb 04, 2021 14:10
[2021-02-04 15:06] VITALS: BP 100/50
[2021-02-04] MEDS ORDERED: RT-ALBUTEROL SULF 2.5 MG/3 ML PRE-MIX VIAL INH PRN (16:00)
--- NOTE | 2021-02-04 16:55 | CONSULTATION REPORT ---
DATE OF SERVICE: 02/04/2021 ADMITTING PHYSICIAN: Dr. Chapman. HISTORY OF PRESENT ILLNESS: The patient is a 75-year-old female well known to us. She presented to the emergency department last night with the hypotension as well as hyperkalemia and concerns for renal failure. She recently had a similar episode a few weeks ago. She was found to have a large mass of the transverse colon and he underwent a colonoscopy and found to have this lesion, which was biopsied and consistent with an adenocarcinoma. On 10/31/2020, she underwent an attempted laparoscopic extended right hemicolectomy; however, this was converted to open and then she underwent an ileocolonic anastomosis. She did not develop any significant bowel function and underwent reopening of recent laparotomy on 11/10/2020 with a resection of the ileocolonic anastomosis as well as an end ileostomy and mucous fistula. She did well postoperatively; however, did develop fever and chills and abdominal distention and she was re-explored and found to have a significant intra-abdominal abscess and wound dehiscence and a wound VAC was placed. She has had ongoing issues with a high output ileostomy resulting in dehydration as well as renal failure and hyperkalemia. Since being admitted and placed on IV fluids and volume resuscitation. Her potassium has improved as well as her urine output and renal function. PAST MEDICAL HISTORY: COPD, hypertension, hypercholesterolemia, and colon cancer. PAST SURGICAL HISTORY: Tonsillectomy, extended right hemicolectomy, laparotomy with ABThera wound VAC placement. ALLERGIES: PENICILLIN, SYMBICORT . MEDICATIONS: Albuterol, Xanax, amlodipine, Zyrtec, Colace, fentanyl patch, Flonase, Trelegy Ellipta, lisinopril, melatonin, Reglan, metoprolol, miconazole, Singulair, oxycodone, Protonix, Flomax, Anoro Ellipta and bethanechol. SOCIAL HISTORY: Previous for smoke 55 pack years, quit 09/2020. Rare for alcohol. FAMILY HISTORY: Mother, hypertension. Father, hypertension. Paternal grandmother, colon cancer. REVIEW OF SYSTEMS: A well-nourished female currently in no acute distress. She is not experiencing any shortness of breath or difficulty breathing. No chest pain, palpitations, diaphoresis. No nausea, vomiting with a high output end ileostomy and low urine output. No fever or chills, no recent inadvertent weight loss. All other review of systems negative. PHYSICAL EXAMINATION: CHEST: Distant breath sounds and scattered wheezes bilaterally. HEART: Regular, no murmurs. EXTREMITIES: No lower extremity edema, negative Homans sign. HEENT: No scleral icterus. NECK: No cervical lymphadenopathy. ABDOMEN: Soft, nontender, and nondistended with an open wound with good granulation tissue and no redness or erythema. SKIN: Warm, dry. LABORATORY DATA: WBC 11.3, hemoglobin 8.4, hematocrit 27, and platelets 387. BUN 32, creatinine 3.05, potassium 5.7, and magnesium 0.7. ASSESSMENT AND PLAN: A 75-year-old female with recurrent episodes of high output end ileostomy with associated dehydration, renal insufficiency and low output renal failure. She is currently being managed medically with IV hydration for volume contraction as well as correction of her electrolytes. Long-term, we will recommend the addition of a fiber supplement that increases transit time of her gastrointestinal contents throughout her small bowel and increase absorption of water. We will also proceed with a trial of Questran, as a bile acid sequester, which may also decrease small bowel motility and increase absorption of water. Job ID: [id number] DocumentID: [id number] Dictated Date: 02/04/2021 14:05:19 Electronic Plotting System Operator Date: 02/04/2021 16:55:16 Dictated By: MICHAEL XIONG MD
[2021-02-04] MEDS: RT-ALBUTEROL SULF 2.5 MG/3 ML PRE-MIX VIAL INH SCH ×2 (18:46→21:59)
[2021-02-04 22:46] LABS: POTASSIUM 4.7 MMOL/L (3.6-5.0)
[2021-02-04 22:47] LABS: CALCIUM 8.3 MG/DL (8.5-10.1)
[2021-02-04 22:52] LABS: CREATININE SERUM 1.42 MG/DL (0.60-1.30); PHOSPHORUS 3.9 MG/DL (2.3-4.7)
[2021-02-04 22:54] LABS: MAGNESIUM 1.3 MG/DL (1.6-2.4)
--- NOTE | 2021-02-05 01:52 | CONSULTATION REPORT ---
DATE OF SERVICE: 02/04/2021 The patient is admitted to ICU bed 6. PHYSICIAN REQUESTING CONSULTATION: Genna Chapman DO IMPRESSION: 1. A 75-year-old female with T4A, N0 adenocarcinoma of transverse colon, status post extended right hemicolectomy. Complications of ileocolonic torsion requiring multiple resections, ileostomy placement, debridement and drainage of abdominal abscess. 2. Current admission is for acute renal failure as well as hyperkalemia. 3. Hypermetabolic right pulmonary nodule noted on initial PET CT scan, which could be a primary lung neoplasm. Given her extensive tobacco use and COPD. Less likely this could be metastatic disease from the colon cancer. 4. Deconditioning. RECOMMENDATIONS: 1. Continue management of dehydration, renal failure and hyperkalemia as you are doing. 2. For her T4A transverse colon cancer, she does not need any adjuvant chemotherapy, especially given her postoperative complications. If the pulmonary nodule is not metastatic disease, she is a high risk stage II colon cancer. 3. The pulmonary nodule will need follow up with a repeat CT scan once she is stable from the postoperative complications. If this is increasing in size, she would benefit from a biopsy. Other option is to obtain radiation oncology evaluation for stereotactic radiation therapy. 4. From the medical oncology standpoint, she does not need any treatment until she has recovered from the surgery. I will follow the patient with you. BRIEF HISTORY: The patient is a 75-year-old female who was initially seen by me in 09/[address] and PET scan. The PET scan showed large hypermetabolic transverse colon mass suspicious for malignancy as well as a small hypermetabolic pulmonary nodule in the right lung. Following this, she underwent a colonoscopy and a large mass of the transverse colon, which on biopsy turned out to be an adenocarcinoma of the colon. She underwent extended right hemicolectomy with ileocolonic anastomosis on 10/31/2020. Following this, she had torsion of the anastomosis requiring excision of the previous anastomotic site, which had caused a perforation and serositis on 11/10/2020. She required another resection of terminal ileum due to necrotic bowel and serositis on 11/15/2020. Following this, she had an abscess formation in the abdomen, which was drained with a wound dehiscence and required a wound VAC placement. She was discharged to long term approximately a week ago, but had significant output from the ileostomy leading to dehydration. Lab work done at the long term showed renal failure and hyperkalemia and she was sent back to the emergency room for further evaluation and management and admitted to the hospital. PAST MEDICAL HISTORY: Significant for colon cancer as mentioned above. She has history of hypertension for a few years and is on treatment. History of hypercholesterolemia for more than 10 years, COPD diagnosed a few years ago and treated with bronchodilators. PAST SURGICAL HISTORY: Include tonsillectomy and adenoidectomy in childhood, cervical conization in 1970 and a wisdom tooth extraction in addition to the extended right hemicolectomy and subsequent surgeries as mentioned in the history of present illness. SOCIAL HISTORY: The patient is and was living in [place], [place] with her sister previously. More recently, she has been at the long term. She has a son and a daughter, both of whom live in [place], [place]. 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 She has smoked a pack of cigarettes a day for 55 years and is trying to quit now. No history of alcohol or recreational drug use. FAMILY HISTORY: Significant for paternal grandmother with colon cancer diagnosed in her late 60s. Maternal grandfather with prostate cancer at an elderly age. Paternal uncle with an unknown malignancy. A nephew who was diagnosed with multiple myeloma. Both parents and sister had hypertension. No other significant family history. PHYSICAL EXAMINATION: GENERAL: Today, showed an elderly female, well developed and nourished, awake and oriented, in no acute distress. VITAL SIGNS: Temperature was 36.5, pulse rate of 94, respirations 18, blood pressure 145/62, oxygen saturation was normal with 3 liters of oxygen by nasal cannula. HEENT: Normocephalic, extraocular muscles intact, conjunctivae pink, oral mucosa slightly dry. NECK: Supple, with no JVD. Right internal jugular line is present. CHEST: Symmetrical. LUNGS: With slightly diminished breath sounds bilaterally without any wheezes or rales. CARDIOVASCULAR: Regular in rate and rhythm. No murmurs or gallops heard. ABDOMEN: Soft with a right lower quadrant, ileostomy present and draining liquid stools. No definite hepatosplenomegaly or other masses palpable. EXTREMITIES: Showed no edema. NEUROLOGIC: Grossly intact without focal motor deficits. LABORATORY DATA: I reviewed her CBC done yesterday at the emergency room, which showed WBC 14.4, hemoglobin 10.3, platelet count 508,000 with neutrophil count 8.1, lymphocyte count 3.2, monocyte count 1.4 and eosinophil count 1.2. Chemistry panel done at the same time showed sodium level of 129, potassium 6.0, BUN 35 and creatinine 4.28 with GFR 10 mL per minute. Liver function studies were normal except albumin level of 3.0. Repeat CBC done today morning showed WBC 11.3, hemoglobin 8.4 with a platelet count of 387,000. Neutrophil count 6.4, lymphocyte count 2.4 and monocyte count 1.2. Chemistry panel done today afternoon showed potassium level of 5.7 with BUN 32 and creatinine 3.05. Magnesium level was 0.7. Liver function studies within normal limits except albumin level of 3.0. Thank you for allowing me to participate in this patient's care. I will follow the patient with you and make appropriate recommendations. Job ID: [id number] DocumentID: [id number] Dictated Date: 02/04/2021 18:35:55 Hedis Manager Date: 02/05/2021 01:52:10 Dictated By: BRIAN SOTO MD
[2021-02-05] MEDS: RT-ALBUTEROL SULF 2.5 MG/3 ML PRE-MIX VIAL INH SCH ×5 (02:04→18:34)
[2021-02-05] MEDS: MAGNESIUM 1 GM/100 ML IVPB 100 ML IV SCH ×4 (02:28→06:29)
[2021-02-05] MEDS: LACTATED RINGERS 1,000 ML IV SCH ×2 (02:28→11:28)
[2021-02-05 04:24] LABS: BASOPHILS % (AUTO) 1 % (0-10); EOSINOPHILS # (AUTO) 0.7 10^3/uL (0.0-0.3); EOSINOPHILS % (AUTO) 8 % (0-10); HEMATOCRIT 25 % (35-52); HEMOGLOBIN 7.9 g/dL (11.5-16.0); LYMPHOCYTES # (AUTO) 2.2 10^3/uL (1.0-4.0); LYMPHOCYTES % (AUTO) 25 % (12-44); MEAN CORPUSCULAR HEMOGLOBIN 30 pg (25-34); MEAN CORPUSCULAR HGB CONC 32 g/dL (32-36); MEAN CORPUSCULAR VOLUME 92 fL (80-99); MEAN PLATELET VOLUME 8.6 fL (9.0-12.2); MONOCYTES # (AUTO) 0.9 10^3/uL (0.0-1.0); MONOCYTES % (AUTO) 10 % (0-12); NEUTROPHILS # (AUTO) 4.8 10^3/uL (1.8-7.8); NEUTROPHILS % (AUTO) 55 % (42-75); PLATELET COUNT 293 10^3/uL (130-400); WHITE BLOOD COUNT 8.8 10^3/uL (4.3-11.0)
--- NOTE | 2021-02-05 04:39 | Pulmonary Progress Note ---
YANETH COVARRUBIAS MED STUDENT 02/05/21 0439: Subjective Date Seen by a Provider: Feb 05, 2021 Time Seen by a Provider: 04:37 Subjective/Events-last exam No complaints. Review of Systems General: No Chills, No Night Sweats, No Fatigue, No Malaise, No Appetite, No Other Pulmonary: No Dyspnea, No Cough, No Pleuritic Chest Pain, No Other Cardiovascular: No: Chest Pain, Palpitations, Orthopnea, Paroxysmal Noc. Dyspnea, Edema, Lt Headedness, Other Sepsis Event Evaluation Height, Weight, BMI Height: '" Weight: lbs. oz. kg; 29.10 BMI Method: Focused Exam Lactate Level 02/03/21 17:22: Lactic Acid Level 1.27 02/03/21 21:48: Lactic Acid Level 1.08 Exam Exam Vital Signs Date Time Temp Pulse Resp B/P (MAP) Pulse Ox O2 Delivery O2 Flow Rate FiO2 02/05/21 04:00 95 Nasal Cannula 2.00 02/05/21 04:00 101 20 130/61 (84) 94 Nasal Cannula 3.00 02/05/21 03:00 93 13 114/46 (68) 93 Nasal Cannula 3.00 02/05/21 02:04 94 Nasal Cannula 3.00 02/05/21 02:00 92 13 114/46 (68) 95 Nasal Cannula 3.00 02/05/21 01:00 93 02/05/21 01:00 93 12 114/52 (72) 96 Nasal Cannula 3.00 02/05/21 00:00 95 Nasal Cannula 3.00 02/05/21 00:00 95 13 108/48 (68) 94 Nasal Cannula 3.00 02/04/21 23:00 96 13 111/44 (66) 93 Nasal Cannula 3.00 02/04/21 22:00 98 11 122/58 (79) 98 Nasal Cannula 3.00 02/04/21 22:00 95 Nasal Cannula 3.00 02/04/21 21:00 111 17 111/51 (71) 94 Nasal Cannula 3.00 02/04/21 20:00 95 Nasal Cannula 3.00 02/04/21 20:00 62 13 123/54 (77) 97 Nasal Cannula 3.00 02/04/21 19:00 100 14 109/47 (67) 93 Nasal Cannula 3.00 02/04/21 19:00 100 02/04/21 18:46 95 Nasal Cannula 3.00 02/04/21 18:00 99 18 145/62 (89) Nasal Cannula 3.00 02/04/21 17:00 92 16 121/53 (75) Nasal Cannula 3.00 02/04/21 16:00 94 Nasal Cannula 3.00 02/04/21 16:00 107/49 (68) Nasal Cannula 3.00 02/04/21 15:40 36.8 02/04/21 15:06 36.5 94 97 32 02/04/21 15:00 100 19 127/53 (77) Nasal Cannula 3.00 02/04/21 14:00 94 14 100/50 (67) 97 Nasal Cannula 3.00 02/04/21 13:00 101 17 125/63 (83) 98 Nasal Cannula 3.00 02/04/21 12:56 103 02/04/21 12:00 90 13 108/53 (71) 99 Nasal Cannula 3.00 02/04/21 12:00 95 Nasal Cannula 3.00 02/04/21 11:00 85 14 100/46 (64) 95 Nasal Cannula 3.00 02/04/21 10:09 96 Nasal Cannula 3.00 02/04/21 10:00 90 13 114/47 (69) 98 Nasal Cannula 3.00 02/04/21 09:00 101 15 135/41 (72) 99 Nasal Cannula 3.00 02/04/21 08:00 93 16 129/51 (77) 99 Nasal Cannula 3.00 02/04/21 08:00 95 Nasal Cannula 3.00 02/04/21 07:45 Nasal Cannula 3.00 02/04/21 07:00 89 14 110/50 (70) 94 Nasal Cannula 3.00 02/04/21 06:45 95 02/04/21 06:00 101 16 102/41 (61) 96 Nasal Cannula 3.00 02/04/21 05:30 87 13 99/48 (65) 94 Nasal Cannula 3.00 I & O 02/05/21 07:00 Intake Total 3730 ml Output Total 3550 ml Balance 180 ml Height & Weight Height: '" Weight: lbs. oz. kg; 29.10 BMI Method: General Appearance: No Apparent Distress, WD/WN HEENT: PERRL/EOMI, Pharynx Normal Neck: Normal Inspection, Non Tender, Supple Respiratory: No Accessory Muscle Use, No Respiratory Distress Cardiovascular: Regular Rate, Rhythm, No Edema, No Murmur Capillary Refill: Less Than 3 Seconds Gastrointestinal: other (colostomy bag) Extremity: Normal Inspection, Non Tender, No Pedal Edema Neurologic/Psychiatric: Alert, Oriented x3, Normal Mood/Affect Skin: Normal Color, Warm/Dry Results Lab Laboratory Tests 02/03/21 17:22 02/03/21 18:36 02/03/21 21:48 02/04/21 03:30 02/04/21 22:14 Assessment/Plan Assessment/Plan ARF with hyperkalemia, metabolic acidosis, hyperphos -Will give insulin, bicarb, and D 50 -Give liter bolus of LR -Change IVF to LR -hyperkalemia improving Hypotension -Increase IVF Hypomagnesemia-improving -monitor Diarrhea -CDIFF negative Hypoxemia -Replace Anemia -Monitor GIOVANNA BORREGO DO 02/05/21 0543: Assessment/Plan Assessment/Plan ARF with hyperkalemia, metabolic acidosis, hyperphos -Will give insulin, bicarb, and D 50 -Give liter bolus of LR -Change IVF to LR -hyperkalemia improving Hypotension-- resolved Hypomagnesemia-improving -monitor COPD hx -Currently on 2 liters Lung nodule per PET scan -Oncology following Diarrhea -CDIFF negative Hypoxemia -oxygen Anemia -Monitor 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
[2021-02-05 04:41] LABS: POTASSIUM 4.4 MMOL/L (3.6-5.0)
[2021-02-05 04:43] LABS: CALCIUM 8.6 MG/DL (8.5-10.1)
[2021-02-05 04:47] LABS: CREATININE SERUM 1.27 MG/DL (0.60-1.30); PHOSPHORUS 4.1 MG/DL (2.3-4.7)
[2021-02-05 04:50] LABS: MAGNESIUM 2.4 MG/DL (1.6-2.4)
--- NOTE | 2021-02-05 05:40 | Pulmonary Progress Note ---
Subjective Time Seen by a Provider: 05:39 Sepsis Event Evaluation Height, Weight, BMI Height: '" Weight: lbs. oz. kg; 29.10 BMI Method: Focused Exam Lactate Level 02/03/21 17:22: Lactic Acid Level 1.27 02/03/21 21:48: Lactic Acid Level 1.08 Exam Exam Vital Signs Date Time Temp Pulse Resp B/P (MAP) Pulse Ox O2 Delivery O2 Flow Rate FiO2 02/05/21 04:00 95 Nasal Cannula 2.00 02/05/21 04:00 101 20 130/61 (84) 94 Nasal Cannula 3.00 02/05/21 03:00 93 13 114/46 (68) 93 Nasal Cannula 3.00 02/05/21 02:04 94 Nasal Cannula 3.00 02/05/21 02:00 92 13 114/46 (68) 95 Nasal Cannula 3.00 02/05/21 01:00 93 02/05/21 01:00 93 12 114/52 (72) 96 Nasal Cannula 3.00 02/05/21 00:00 95 Nasal Cannula 3.00 02/05/21 00:00 95 13 108/48 (68) 94 Nasal Cannula 3.00 02/04/21 23:00 96 13 111/44 (66) 93 Nasal Cannula 3.00 02/04/21 22:00 98 11 122/58 (79) 98 Nasal Cannula 3.00 02/04/21 22:00 95 Nasal Cannula 3.00 02/04/21 21:00 111 17 111/51 (71) 94 Nasal Cannula 3.00 02/04/21 20:00 95 Nasal Cannula 3.00 02/04/21 20:00 62 13 123/54 (77) 97 Nasal Cannula 3.00 02/04/21 19:00 100 14 109/47 (67) 93 Nasal Cannula 3.00 02/04/21 19:00 100 02/04/21 18:46 95 Nasal Cannula 3.00 02/04/21 18:00 99 18 145/62 (89) Nasal Cannula 3.00 02/04/21 17:00 92 16 121/53 (75) Nasal Cannula 3.00 02/04/21 16:00 94 Nasal Cannula 3.00 02/04/21 16:00 107/49 (68) Nasal Cannula 3.00 02/04/21 15:40 36.8 02/04/21 15:06 36.5 94 97 32 02/04/21 15:00 100 19 127/53 (77) Nasal Cannula 3.00 02/04/21 14:00 94 14 100/50 (67) 97 Nasal Cannula 3.00 02/04/21 13:00 101 17 125/63 (83) 98 Nasal Cannula 3.00 02/04/21 12:56 103 02/04/21 12:00 90 13 108/53 (71) 99 Nasal Cannula 3.00 02/04/21 12:00 95 Nasal Cannula 3.00 02/04/21 11:00 85 14 100/46 (64) 95 Nasal Cannula 3.00 02/04/21 10:09 96 Nasal Cannula 3.00 02/04/21 10:00 90 13 114/47 (69) 98 Nasal Cannula 3.00 02/04/21 09:00 101 15 135/41 (72) 99 Nasal Cannula 3.00 02/04/21 08:00 93 16 129/51 (77) 99 Nasal Cannula 3.00 02/04/21 08:00 95 Nasal Cannula 3.00 02/04/21 07:45 Nasal Cannula 3.00 02/04/21 07:00 89 14 110/50 (70) 94 Nasal Cannula 3.00 02/04/21 06:45 95 02/04/21 06:00 101 16 102/41 (61) 96 Nasal Cannula 3.00 I & O 02/05/21 07:00 Intake Total 3730 ml Output Total 3550 ml Balance 180 ml Height & Weight Height: '" Weight: lbs. oz. kg; 29.10 BMI Method: General Appearance: No Apparent Distress, WD/WN, Chronically ill HEENT: PERRL/EOMI, Pharynx Normal Neck: Non Tender, Supple Respiratory: Lungs Clear, Normal Breath Sounds Cardiovascular: Regular Rate, Rhythm, No Murmur Capillary Refill: Less Than 3 Seconds Gastrointestinal: other (colostomy bag) Extremity: Normal Range of Motion, Non Tender Neurologic/Psychiatric: Alert, Oriented x3 Skin: Normal Color, Warm/Dry Results Lab Laboratory Tests 02/03/21 17:22 02/03/21 18:36 02/03/21 21:48 02/04/21 03:30 02/04/21 22:14 02/05/21 04:18 Assessment/Plan Assessment/Plan ARF with hyperkalemia, metabolic acidosis, hyperphos -Will give insulin, bicarb, and D 50 -Give liter bolus of LR -Change IVF to LR -hyperkalemia improving Hypotension -Increase IVF Hypomagnesemia-improving -monitor Diarrhea -CDIFF negative Hypoxemia -Replace Anemia -Monitor GIOVANNA BORREGO DO Feb 05, 2021 05:40
[2021-02-05] MEDS: POTASSIUM CL 10MEQ/50ML IVPB 50 ML IV SCH (06:29)
[2021-02-05] MEDS: KCL 20 MEQ TAB (K-DUR) PO SCH (06:29)
[2021-02-05] MEDS: MAGNESIUM OXIDE (MAG-OX)400 MG TAB PO SCH ×2 (07:23→18:19)
--- NOTE | 2021-02-05 08:11 | Diagnostic Imaging Report ---
INDICATION: Respiratory failure. Hypoxia Upright portable chest shows the heart size and vascularity to be upper normal. No infiltrates are seen. There has been improved aeration of the left lung base since 02/04/21. There is no effusion or pneumothorax. IJ line tip is in the SVC. IMPRESSION: Improving chest. Dictated by: Dictated on workstation # [id number]
[2021-02-05] MEDS ORDERED: fentaNYL PATCH 25 MCG (DURAGESIC) TD SCH (09:45)
[2021-02-05] MEDS ORDERED: CHLORASEPTIC SPRAY 177 ML LIQUID MM PRN (09:45)
[2021-02-05] MEDS ORDERED: SYSTANE EYE DROPS 15 ML (NON-FORMULARY) OP PRN (09:45)
[2021-02-05] MEDS ORDERED: SALIVA STIMULANT MOUTH SPRAY (BIOTENE) 1.5 OZ MM PRN (09:45)
[2021-02-05] MEDS ORDERED: RT-ALBUTEROL SULF 2.5 MG/3 ML PRE-MIX VIAL INH PRN (09:45)
[2021-02-05] MEDS ORDERED: MELATONIN 3 MG TABLET PO PRN (09:45)
[2021-02-05] MEDS ORDERED: ALPRAZolam 0.25 MG (XANAX) TAB PO PRN (09:45)
[2021-02-05] MEDS: CHOLESTYRAMINE 4 GM (QUESTRAN LITE, PREVALITE) PKT PO SCH (11:26)
--- NOTE | 2021-02-05 11:29 | Occupational Therapy Eval ---
OT Evaluation-General/PLF Medical Diagnosis Admission Date Feb 03, 2021 at 19:30 Medical Diagnosis: MOUSTAPHA, hyperkalemia Onset Date: Feb 04, 2021 Therapy Diagnosis Therapy Diagnosis: Decreased ADL status Precautions Precautions/Isolations: Fall Prevention, Standard Precautions Referral Physician: Genna Chapman DO Referral Reason: Activity Tolerance, Self Care, Evaluation/Treatment, Strengthening/ROM Medical History Pertinent Medical History: Arthritis, COPD, HTN, Smoking Additional Medical History COPD, PNA, arthritis, CBP, arthritis, [place] Current History admits from SNF ([facility]). AK with increased creatine. Reviewed History: Yes Social History Home: Jail Current Living Status: ADL-Prior Level of Function SCALE: Activities may be completed with or without assistive devices. 6-Yslmciuqph-okxjywp completes the activity by him/herself with no assistance from a helper. 5-Set-up or Clean-up Assistance-helper sets up or cleans up; patient completes activity. [place] assists only prior to or following the activity. 4-Supervision or Touching Assistance-helper provides verbal cues and/or touching/steadying and/or contact guard assistance as patient completes activity. Assistance may be provided throughout the activity or intermittently. 3-Partial/Moderate Assistance-helper does LESS THAN HALF the effort. [place] lifts, holds or supports trunk or limbs, but provides less than half the effort. 2-Substantial/Maximal Assistance-helper does MORE THAN HALF the effort. [place] lifts or holds trunk or limbs and provides more than half the effort. 0-[place]-wdfddw does ALL the effort. Patient does none of the effort to complete the activity. Or, the assistance of 2 or more helpers is required for the patient to complete the activity. If activity was not attempted, code reason: 7-Patient Refused. 9-Not Applicable-not attempted and the patient did not perform the activity before the current illness, exacerbation or injury. 10-Not Attempted due to Environmental Limitations-(lack of equipment, weather restraints, etc.). 88-Not Attempted due to Medical Conditions or Safety Concerns. ADL PLOF Comments Pt expresses IND with walker in room for all ADLs other than showering (which [place] completes with her assist). Pt states she desires to d/c home. Self Care: Needed Some Help Functional Cognition: Independent DME/Equipment Comments Pt expresses a sc at [place], though sc/ walk in shower/ gbs at home. Drive Self: No OT Current Status Subjective Nursing agrees to OT/ PT seeing pt. Pt AxO, agrees to tx, no pain noted. Mental Status/Objective Patient Orientation: Person, Place, Situation, Normal For Age Attachments: Drains, Oxygen, Telemetry Current Glasses/Contacts: Yes Hearing Aids: No Dentures/Partials: Yes Hand Dominance: Right Upper Extremity ROM WLF BUE Upper Extremity Coordination WLF BUE Upper Extremity Sensation WLF BUE Upper Extremity Strength WLF BUE (4/5) ADL-Treatment Eating (QC): 88 (NPO at this time though per pt IND.) Oral Hygiene (QC): 6 (Per pt's ability to place damp sponge in mouth (already in place prior to OT entry), pt is IND with hygiene) Shower/Bathe Self (QC): 7 (states she received bath prior to admission) Toileting Hygiene (QC): 6 (Pt states IND with this task.) Other Treatments Pt bed mob SBA. Sits EOB, no c/o lightheadedness. Pt agrees to ambulation. Sit to stand/ ambulation with CGA. See PT for distance. MMT/ ROM WFL. Given yellow theraband, pt expresses understanding for use. Pt continues to be NPO at this time, though has damp sponge for mouth. Pt expresses she does not feel as though SNF is providing much assist in her reaching PLOF, stating she feels she is at PLOF and desires to d/c home. Pt is questioned on home environment. Per pt, able to complete ADLs IND (mod I) and complete showering with SUP. Lived with sister prior to d/c. Pt denies needs, call light in reach, pt in chair upon OT ext. 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 2=Patient will verbalize/demonstrate understanding of assistive devices/modifications for ADL. 3=Patient will improve strength/tolerance for activity to enable patient to perform ADL's. OT Education/Plan Problem List/Assessment Assessment: Decreased Activ Tolerance, Impaired I ADL's, Impaired Self-Care Skills Discharge Recommendations Plan/Recommendations: Continue POC Therapy Discharge Recommendati: Home & Family, Post Acute OT Treatment Plan/Plan of Care Treatment,Training & Education: Yes Patient would benefit from OT for education, treatment and training to promote independence in ADL's, mobility, safety and/or upper extremity function for ADL's. Plan of Care: ADL Retraining, Caregiver Training, Functional Mobility, UE Funct Exercise/Act Treatment Duration: Feb 12, 2021 Frequency: 5 times per week Estimated Hrs Per Day: .25 hour per day Agreement: Yes Rehab Potential: Good Time/GCodes Start Time: 10:54 Stop Time: 11:14 Total Time Billed (hr/min): 20 Billed Treatment Time 1BERNAM (20) [facility] OTR Feb 05, 2021 11:29
[2021-02-05] MEDS ORDERED: ARTIFICAL TEARS 0.4 ML UNIT DOSE (REFRESH PLUS) OP PRN (11:30)
[2021-02-05] MEDS ORDERED: ONDANSETRON 4 MG (ZOFRAN) ORAL DISSOLVE TAB PO PRN (11:30)
[2021-02-05] MEDS: metroNIDAZOLE 500MG/100ML IVPB 100 ML IV SCH ×2 (11:36→21:44)
--- NOTE | 2021-02-05 11:36 | Physical Therapy Evaluation ---
PT Evaluation-General Medical Diagnosis Admission Date Feb 03, 2021 at 19:30 Medical Diagnosis: MOUSTAPHA, hyperkalemia Onset Date: Feb 04, 2021 Therapy Diagnosis Therapy Diagnosis: impaired mobility, endurance Precautions Precautions/Isolations: Fall Prevention, Standard Precautions Referral Physician: Genna Chapman DO Reason for Referral: Evaluation/Treatment Medical History Pertinent Medical History: Arthritis, COPD, HTN, Smoking Additional Medical History Past Medical History Surgeries: Abdominal Respiratory: COPD, Pneumonia Currently Using CPAP: No Currently Using BIPAP: No Cardiac: High Cholesterol, Hypertension Genitourinary: Bladder Infection, Renal Failure Gastrointestinal: Chronic Constipation Musculoskeletal: Arthritis, Chronic Back Pain Hearing Impairment: Hard of Hearing, Bilateral Hearing Aide Cancer: Colon Reviewed History: Yes Social History Home: Assisted Current Living Status: Prior Prior Level of Function SCALE: Activities may be completed with or without assistive devices. 7-Qnipstmlrs-eurcwuu completes the activity by him/herself with no assistance from a helper. 5-Set-up or Clean-up Assistance-helper sets up or cleans up; patient completes activity. [place] assists only prior to or following the activity. 4-Supervision or Touching Assistance-helper provides verbal cues and/or touching/steadying and/or contact guard assistance as patient completes activity. Assistance may be provided throughout the activity or intermittently. 3-Partial/Moderate Assistance-helper does LESS THAN HALF the effort. [place] lifts, holds or supports trunk or limbs, but provides less than half the effort. 2-Substantial/Maximal Assistance-helper does MORE THAN HALF the effort. [place] lifts or holds trunk or limbs and provides more than half the effort. 9-[place]-tqwcpk does ALL the effort. Patient does none of the effort to complete the activity. Or, the assistance of 2 or more helpers is required for the patient to complete the activity. If activity was not attempted, code reason: 7-Patient Refused. 9-Not Applicable-not attempted and the patient did not perform the activity before the current illness, exacerbation or injury. 10-Not Attempted due to Environmental Limitations-(lack of equipment, weather restraints, etc.). 88-Not Attempted due to Medical Conditions or Safety Concerns. Bed Mobility: 4 Transfers (B,C,W/C): 4 Gait: 4 PT Evaluation-Current Subjective Patient in bed pre tx, agrees to PT, has no complaints of pain Pt/Family Goals "to go home" Objective Patient Orientation: Person, Place, Situation Attachments: Oxygen, Drains, Lam Catheter, IV ROM/Strength ROM Lower Extremities WNL Sensory Vision: Functional Hearing: Functional Hand Dominance: Right Transfers Roll Left to Right (QC): 6 Lying to Sitting/Side of Bed(Q: 6 Sit to Stand (QC): 4 Chair/Oek-yj-Eozxb Xfer(QC): 4 SBA for sit to stand and transfers Gait Does the Patient Walk?: Yes Mode of Locomotion: Walk Anticipated Mode of Locomotion: Walk Walk 10 feet (QC): 4 Walk 50 ft with 2 Turns(QC): 4 Walk 150 ft (QC): 4 Distance: 150' Gait Assistive Device: FWW Comments/Gait Description Patient ambulates briskly and without difficulty, after ambulating 150' she was slightly SOB but O2 was still 94% Balance Sitting Static: Normal Sitting Dynamic: Normal Standing Static: Good Standing Dynamic: Good Assessment/Needs Patient has impaired mobility, endurance. Patient in bedside chair post tx with nurse call, phone, tray, all needs met. Patient is SBA with transfers and ambulation. Rehab Potential: Fair PT Brush Material Preparer Goals Brush Material Preparer Goals PT Brush Material Preparer Goals Time Frame: Feb 12, 2021 Roll Left & Right (QC): 6 Sit to Lying (QC): 6 Lying-Sitting on Side/Bed(QC): 6 Sit to Stand (QC): 6 Chair/Hbb-on-Wfeym Xfer(QC): 6 Toilet Transfer (QC): 6 Walk 10 feet (QC): 6 Walk 50ft with 2 Turns (QC): 6 Walk 150 ft (QC): 6 PT Plan Problem List Problem List: Activity Tolerance, Functional Strength, Safety, Balance, Gait, Transfer, Bed Mobility Treatment/Plan Treatment Plan: Continue Plan of Care Treatment Plan: Bed Mobility, Education, Functional Activity [place], Functional Strength, Gait, Safety, Therapeutic Exercise, Transfers Treatment Duration: Feb 12, 2021 Frequency: 6 times per week Estimated Hrs Per Day: .25 hour per day Patient and/or Family Agrees t: Yes Safety Risks/Education Patient Education: Gait Training, Transfer Techniques, Correct Positioning, Safety Issues Teaching Recipient: Patient Teaching Methods: Demonstration, Discussion Response to Teaching: Reinforcement Needed Discharge Recommendations Plan Patient will perform bed mobility and transfer training, balance and endurance training, functional strengthening, gait training, stair training, and education, to improve functional mobility and independence at home. Therapy Discharge Recommendati: Intermittent Supervision, Home & Family, Post Acute PT Time/GCodes Time In: 1055 Time Out: 1112 Total Billed Treatment Time: 17 Total Billed Treatment 1 visit GUERITA Rodriges' RAMOS POLLOCK PT Feb 05, 2021 11:36
[2021-02-05] MEDS: SUCRALFATE 1 GM (CARAFATE) TAB PO SCH ×3 (12:00→21:38)
[2021-02-05] MEDS ORDERED: MICONAZOLE 2% POWDER (DESENEX AF) 90 GM TOP PRN (12:00)
[2021-02-05] MEDS: BETHANECHOL 25 MG (URECHOLINE) TAB PO SCH ×3 (12:00→21:38)
--- NOTE | 2021-02-05 12:05 | Progress Note ---
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 This is a balancing act due to high-output ileostomy and dehydration Cholestyramine started per surgery Port placement today Dietary consult to identify more palatable options that treat hyponatremia and don't worsen dehydration Will move to 4th floor and begin PT Oncology plan: Dr. Morgan is consulted for patient's hx of T4A, N0 adenoc arcinoma of transverse colon. T4A meaning the tumor has grown through all layers of colon and into surface of visceral peritoneum, and N0 meaning there is no spread to regional lymph nodes. Patient has undergone right hemicolectomy and subsequent ileostomy placement following complications of ileocolonic torsion requiring multiple revisions, debridement and drainage of abdominal abscess. This colon cancer was first discovered in 09/[address] and PET scan which also showed a small right pulmonary nodule at that time (8-10 mm). Nodule was suspicious for primary lung neoplasm given pt's tobacco and COPD history; however, this could also be metastatic disease from colon cancer but it is unlikely. Assuming that the lung nodule is not metastatic and is indeed a primary neoplasm, the patient's colon cancer is considered high risk stage II colon cancer. This means that the tumor has not spread to other areas of the body but is high risk for any of the following reasons * poorly differentiated histology * presence of lymphovascular invasion * presence of perineural invasion * report of <12 lymph nodes sampled * bowel obstruction * localized perforation or * positive margins Dr. Morgan does not recommend any adjuvant chemo at this time. Studies show that benefits of adjuvant chemo in stage 2 colon cancer are less certain so use of chemo is variable, unlike stage 3 (node positive) which clearly demonstrates benefit of adjuvant chemo. As far as her lung nodule, it is recommended that she have repeat CT upon recovery and biopsy this lesion if it has increased in size. Treatment would depend on results of biopsy and another option would be to consult radiation oncology for stereotactic radiation therapy. Nothing will proceed until patient has recovered from current illness and Dr. Morgan will follow her progress. Focused Exam Lactate Level 02/03/21 17:22: Lactic Acid Level 1.27 02/03/21 21:48: Lactic Acid Level 1.08 Objective Exam Last Set of Vital Signs Vital Signs Date Time Temp Pulse Resp B/P (MAP) Pulse Ox O2 Delivery O2 Flow Rate FiO2 02/05/21 08:00 101 16 135/61 (85) 92 Nasal Cannula 1.00 02/05/21 07:18 36.7 02/04/21 15:06 32 Capillary Refill : Less Than 3 Seconds I&O Intake and Output 02/05/21 00:00 Intake Total 4830 ml Output Total 5325 ml Balance -495 ml Intake Oral 2130 ml IV Total 2700 ml Output Urine Total 2125 ml Stool Total 3200 ml General: Alert, Oriented X3, Cooperative, No Acute Distress HEENT: PERRLA, Mucous Memb Moist/[place] Neck: Supple, No JVD, No Thyromegaly Lungs: Clear to Auscultation, Normal Air Movement Heart: Regular Rate, No Murmurs Abdomen: Normal Bowel Sounds, Soft, No Tenderness, No Hepatosplenomegaly, Other (ileostomy and colostomy draining liquid stool. Ventral incision from intra- abdominal abscess drainage c/d/i. Drain right flank.) Extremities: No Edema, Normal Pulses, No Tenderness/Swelling Skin: No Rashes, No Breakdown Neuro: Normal Speech, Normal Tone Psych/Mental Status: Mental Status NL, Mood NL Results Lab Laboratory Tests 02/04/21 15:15: Magnesium Level 1.5L 02/04/21 21:24: Stool Occult Blood Immunoassay NEGATIVE 02/04/21 22:14: Magnesium Level 1.3L, Sodium Level 132L, Potassium Level 4.7, Chloride Level 100, Carbon Dioxide Level 22, Anion Gap 10, Blood Urea Nitrogen 19H, Creatinine 1.42H, Estimat Glomerular Filtration Rate 36, BUN/Creatinine Ratio 13, Glucose Level 117H, Calcium Level 8.3L, Phosphorus Level 3.9 02/05/21 04:18: Magnesium Level 2.4, Sodium Level 132L, Potassium Level 4.4, Chloride Level 99, Carbon Dioxide Level 23, Anion Gap 10, Blood Urea Nitrogen 16, Creatinine 1.27, Estimat Glomerular Filtration Rate 41, BUN/Creatinine Ratio 13, Glucose Level 109H, Calcium Level 8.6, Phosphorus Level 4.1, White Blood Count 8.8, Red Blood Count 2.68L, Hemoglobin 7.9L, Hematocrit 25L, Mean Corpuscular Volume 92, Mean Corpuscular Hemoglobin 30, Mean Corpuscular Hemoglobin Concent 32, Red Cell Distribution Width 15.2H, Platelet Count 293, Mean Platelet Volume 8.6L, Immature Granulocyte % (Auto) 1, Neutrophils (%) (Auto) 55, Lymphocytes (%) (Auto) 25, Monocytes (%) (Auto) 10, Eosinophils (%) (Auto) 8, Basophils (%) (Auto) 1, Neutrophils # (Auto) 4.8, Lymphocytes # (Auto) 2.2, Monocytes # (Auto) 0.9, Eosinophils # (Auto) 0.7H, Basophils # (Auto) 0.0, Immature Granulocyte # (Auto) 0.1 Microbiology 02/03/21 C. 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 Plan: Continue IVF Monitor closely Flagyl Home meds Hold Lisinopril due to MOUSTAPHA Start Cholestyramine Move to 4th floor PT Dietary consult Final Diagnosis High output ileostomy resulting in dehydration and renal failure with hyperkalemia Diagnosis/Problems Diagnosis/Problems (1) COLON MASS (2) abd dehiscene, abscess (3) COPD (chronic obstructive pulmonary disease) (4) Colon cancer (5) Acute renal failure Status: Acute (6) Hyponatremia (7) Intra-abdominal abscess post-procedure Status: Acute (8) Ileus following gastrointestinal surgery (9) Ileostomy in place (10) Hyperkalemia Status: Acute GENNA MARTÍNEZ DO 02/06/21 0553: Subjective Subjective/Events-last exam Pt doing much better Creatinine 1.2 No longer hyperkalemic PT and OT will be ordered Transferring to the fourth floor [facility] port will be placed by Dr. Cris Bloom evaluation Review of Systems General: Fatigue, Malaise Objective Exam General: Alert, Oriented X3, Cooperative, No Acute Distress Lungs: Clear to Auscultation, Normal Air Movement Heart: Regular Rate, Normal S1, Normal S2, No Murmurs Psych/Mental Status: Mental Status NL, Mood NL Assessment/Plan Assessment/Plan Assess & Plan/Chief Complaint Move to [address] [place] [address] Supervisory-Addendum Brief Verification & Attestation Participated in pt care: history, MDM, physical Personally performed: exam, history, MDM, supervision of care Care discussed with: Medical Student Procedures: n/a Results interpretation: Verified all documentation Verification and Attestation of Medical Student E/M Service A medical student performed and documented this service in my presence. I reviewed and verified all information documented by the medical student and made modifications to such information, when appropriate. I personally performed the physical exam and medical decision making. Genna Martínez, Feb 06, 2021,05:51 MADI HAYWARD MED STUDENT Feb 05, 2021 12:05 GENNA MARTÍNEZ DO Feb 06, 2021 05:53
[2021-02-05] MEDS: RT--FLUTICASONE/SALMETEROL 232-14 (AIRDUO RespiCLICK) IH SCH ×2 (13:48→13:53)
[2021-02-05] MEDS: UMECLIDINIUM BROMIDE (INCRUSE ELLIPTA) 7'S IH SCH ×2 (13:49→13:53)
[2021-02-05] MEDS ORDERED: PROPOFOL INJECTION 50 ML IV ONE (15:33)
[2021-02-05] MEDS ORDERED: 0.9% SODIUM CHLORIDE PF INJ 20 ML VIAL ONE (16:37)
[2021-02-05] MEDS ORDERED: LIDOCAINE/EPI 1%-1:100,000 (XYLOCAINE) 20ML ONE (16:37)
[2021-02-05] MEDS ORDERED: HEParin (CENTRAL IV FLUSH) 500 UNIT/5 ML SYR ONE (16:37)
[2021-02-05] MEDS ORDERED: ceFAZolin INJECTION 0 MG ONE (16:54)
[2021-02-05] MEDS ORDERED: CLINDAMYCIN 600 MG/4ML (CLEOCIN) VIAL ONE (16:58)
[2021-02-05] MEDS ORDERED: ONDANSETRON 4 MG/2 ML (SDV) Z0FRAN IVP PRN (17:15)
[2021-02-05] MEDS ORDERED: fentaNYL INJ 100 MCG/2 ML AMP IVP ONE (17:15)
--- NOTE | 2021-02-05 17:25 | Progress Note-Post Operative ---
Post-Operative Progess Note Surgeon (s)/Hadoop Engineer (s) Surgeon MICHAEL XIONG MD Hadoop Engineer: none Pre-Operative Diagnosis recurrent high output fistula, dehydration, renal failure. Post-Operative Diagnosis same Procedure & Operative Findings Date of Procedure 02/05/21 Procedure Performed/Findings placement left subclavian groshong implantable catheter under flouroscopy. Anesthesia Type mac with local Estimated Blood Loss Estimated blood loss (mL): minimal Specimens/Packing Specimens Removed none MICHAEL XIONG MD Feb 05, 2021 17:25
[2021-02-05 17:30] VITALS: BP 124/49
--- NOTE | 2021-02-05 17:39 | Diagnostic Imaging Report ---
Indication: Internal port placement Processes utilized during port placement in the operating room. Single image obtained reveals what appears to be a right jugular central venous catheter with tip projecting over the right brachiocephalic vein. Central catheter coming from the left subclavian region reaches the mid superior vena cava. No obvious pneumothorax is identified. IMPRESSION: No evidence of immediate complication. Dictated by: Dictated on workstation # [id number]
[2021-02-05 17:40] VITALS: BP 123/53
[2021-02-05 17:50] VITALS: BP 120/62
[2021-02-05 18:00] VITALS: BP 137/58
--- NOTE | 2021-02-05 18:01 | Diagnostic Imaging Report ---
EXAMINATION: Chest 1 view. HISTORY: Postop Groshong placement. COMPARISON: Chest radiograph performed earlier the same day. FINDINGS: Left port is visualized with the tip overlying the cavoatrial juncture. A right internal jugular central line is stable with the tip overlying the mid SVC. The lung volumes are normal. No focal consolidation is seen. No large pleural effusion or pneumothorax is seen. Stable cardiomegaly with decreased central pulmonary vascular congestion. No acute osseous abnormality is seen. IMPRESSION: 1. Left port is in place with the tip overlying the cavoatrial juncture. Stable right internal jugular central line. 2. Continued cardiomegaly with improved central pulmonary vessel congestion. Dictated by: Dictated on workstation # [id number]
[2021-02-05 19:41] VITALS: BP 113/56
[2021-02-05] MEDS: SODIUM CHLORIDE 1 GM TABLET PO SCH (21:37)
[2021-02-05] MEDS: PANTOPRAZOLE 40 MG (PROTONIX) TAB PO SCH (21:38)
[2021-02-05] MEDS: MONTELUKAST 10 MG (SINGULAIR) TAB PO SCH (21:38)
[2021-02-05] MEDS: meTOprolol TARTRATE 25 MG (LOPRESSOR) TABLET PO SCH (21:38)
[2021-02-05] MEDS: METOCLOPRAMIDE 5 MG (REGLAN) TAB PO SCH (21:38)
[2021-02-05] MEDS: DOCUSATE SODIUM 100 MG (COLACE) CAP PO SCH (21:38)
[2021-02-05] MEDS: polyethylene glycoL POWDER 17 GM (MIRALAX) PACK PO SCH (21:39)
[2021-02-05] MEDS: SENNA W/DOCUSATE (SENOKOT S) TABLET PO SCH (21:39)
[2021-02-05] MEDS: DAKIN'S 1/4 STRENGTH (0.125%) 473 ML BTL TOP SCH (21:47)
--- NOTE | 2021-02-06 02:15 | OPERATIVE REPORT ---
DATE OF SERVICE: 02/05/2021 ADMITTING PHYSICIAN: Dr. Chapman. PREOPERATIVE DIAGNOSES: History of colon cancer, high output end ileostomy, dehydration and recurrent electrolyte abnormalities. POSTOPERATIVE DIAGNOSES: History of colon cancer, high output end ileostomy, dehydration and recurrent electrolyte abnormalities. PROCEDURE: Placement of left subclavian Groshong implantable catheter under fluoroscopy. SURGEON: Michael Xiong MD ANESTHESIA: Monitored anesthesia care with local. ESTIMATED BLOOD LOSS: Minimal. FINDINGS: Catheter tip at superior vena caval -- right atrial junction. DISPOSITION: The patient tolerated the procedure well. INDICATIONS: The patient is a 75-year-old female known to us. She was found to have a near obstructing transverse colonic adenocarcinoma and underwent an open extended right hemicolectomy on 10/31/2020. She did not develop any significant bowel function and underwent reopening of the laparotomy on 11/10/2020 with resection of the ileocolonic anastomosis as well as an end ileostomy and mucous fistula. She did well postoperatively; however, did develop abdominal distention and fever, chills and was found to have an intraabdominal abscess requiring irrigation as well as a wound VAC placement. Since that time, she has had ongoing issues with high output ileostomy resulting dehydration and renal failure as well as hyperkalemia and hypomagnesemia. She has been admitted and placed on IV fluids and volume resuscitation. She will require implantable Groshong catheter for frequent IV access. DESCRIPTION OF PROCEDURE: The patient was brought to the operating room, laid supine on the table. After adequate IV pain and sedative medications and monitored anesthesia care, the chest and neck were prepped and draped in standard surgical fashion. A 1% lidocaine with epinephrine was used to anesthetize the left subclavian region. The left subclavian vein was then cannulated with drawing of venous blood. The guidewire was then inserted under fluoroscopy. Cannulating needle removed and a skin incision was made using 15 blade. The dilator and sheath were then introduced over the guidewire, the guidewire and dilator were then removed and the Groshong catheter was placed through the sheath until the catheter tip was at the superior vena caval -- right atrial junction. The sheath was then removed. The inner wire within the catheter was then removed and the catheter cut down to size and port placed onto the catheter. The chest reservoir was then created by extending the incision laterally and a plane created between the subcutaneous fat as well as anterior pectoralis fascia using blunt dissection as well as electrocautery with visualization of good hemostasis. The port was then placed into the reservoir and sutured to the anterior pectoralis fascia using interrupted 3-0 Vicryl sutures. Subcutaneous tissue was then reapproximated using 3-0 Vicryl interrupted sutures and the skin was closed using 4-0 Monocryl running subcuticular suture. Wound was then cleaned and covered with Dermabond. The port was accessed with a Roth needle with drawing of venous blood and heparinized saline pushed in without any resistance. We will get a post-procedure chest x-ray once confirmation of placement of the port may be accessed and used at any time. Job ID: [id number] DocumentID: [id number] Dictated Date: 02/05/2021 17:30:55 Back Padder Date: 02/06/2021 02:14:56 Dictated By: MICHAEL XIONG MD
[2021-02-06] MEDS: LACTATED RINGERS 1,000 ML IV SCH (04:13)
[2021-02-06] MEDS: SUCRALFATE 1 GM (CARAFATE) TAB PO SCH ×4 (06:12→20:37)
[2021-02-06] MEDS: BETHANECHOL 25 MG (URECHOLINE) TAB PO SCH ×4 (06:12→20:37)
[2021-02-06 06:22] LABS: BASOPHILS # (AUTO) 0.1 10^3/uL (0.0-0.1); BASOPHILS % (AUTO) 1 % (0-10); EOSINOPHILS # (AUTO) 0.9 10^3/uL (0.0-0.3); EOSINOPHILS % (AUTO) 11 % (0-10); HEMATOCRIT 27 % (35-52); HEMOGLOBIN 8.4 g/dL (11.5-16.0); LYMPHOCYTES # (AUTO) 1.7 10^3/uL (1.0-4.0); LYMPHOCYTES % (AUTO) 20 % (12-44); MEAN CORPUSCULAR HEMOGLOBIN 29 pg (25-34); MEAN CORPUSCULAR HGB CONC 32 g/dL (32-36); MEAN CORPUSCULAR VOLUME 91 fL (80-99); MEAN PLATELET VOLUME 8.8 fL (9.0-12.2); MONOCYTES # (AUTO) 0.8 10^3/uL (0.0-1.0); MONOCYTES % (AUTO) 9 % (0-12); NEUTROPHILS # (AUTO) 4.9 10^3/uL (1.8-7.8); NEUTROPHILS % (AUTO) 58 % (42-75); PLATELET COUNT 319 10^3/uL (130-400); WHITE BLOOD COUNT 8.4 10^3/uL (4.3-11.0)
[2021-02-06 06:47] LABS: ALBUMIN 2.9 GM/DL (3.2-4.5); BILIRUBIN,TOTAL 0.3 MG/DL (0.1-1.0); CALCIUM 8.9 MG/DL (8.5-10.1); CREATININE SERUM 0.94 MG/DL (0.60-1.30); MAGNESIUM 1.4 MG/DL (1.6-2.4); POTASSIUM 4.7 MMOL/L (3.6-5.0); TOTAL PROTEIN 5.8 GM/DL (6.4-8.2)
[2021-02-06] MEDS ORDERED: NON-FORMULARY MEDICATION 1 EA EA (Umeclidinium Brm/Vilanterol Tr (Anoro Ellipta 62.5-25 Mc IH SCH (09:00)
[2021-02-06] MEDS: PANTOPRAZOLE 40 MG (PROTONIX) TAB PO SCH ×2 (09:18→20:37)
[2021-02-06] MEDS: SENNA W/DOCUSATE (SENOKOT S) TABLET PO SCH ×2 (09:18→20:37)
[2021-02-06] MEDS: NICOTINE 7 MG (NICODERM) PATCH TD SCH (09:18)
[2021-02-06] MEDS: MAGNESIUM OXIDE (MAG-OX)400 MG TAB PO SCH ×3 (09:19→20:37)
[2021-02-06] MEDS: TAMSULOSIN 0.4 MG (FLOMAX) CAP PO SCH (09:19)
[2021-02-06] MEDS: MULTIVIT W/MINERALS TAB (THERAGRAN M) PO SCH (09:19)
[2021-02-06] MEDS: LORATADINE (CLARITIN) 10 MG TAB PO SCH (09:19)
[2021-02-06] MEDS: metroNIDAZOLE 500MG/100ML IVPB 100 ML IV SCH ×2 (09:19→21:41)
[2021-02-06] MEDS: meTOprolol TARTRATE 25 MG (LOPRESSOR) TABLET PO SCH ×2 (09:19→20:37)
[2021-02-06] MEDS: METOCLOPRAMIDE 5 MG (REGLAN) TAB PO SCH ×2 (09:19→20:37)
[2021-02-06] MEDS: DOCUSATE SODIUM 100 MG (COLACE) CAP PO SCH ×2 (09:19→20:37)
[2021-02-06] MEDS: polyethylene glycoL POWDER 17 GM (MIRALAX) PACK PO SCH ×2 (09:20→20:37)
[2021-02-06] MEDS: DAKIN'S 1/4 STRENGTH (0.125%) 473 ML BTL TOP SCH ×2 (09:20→20:53)
[2021-02-06] MEDS: SODIUM CHLORIDE 1 GM TABLET PO SCH ×2 (09:22→20:50)
[2021-02-06] MEDS: RT-ALBUTEROL SULF 2.5 MG/3 ML PRE-MIX VIAL INH SCH ×3 (09:26→21:29)
[2021-02-06] MEDS: UMECLIDINIUM BROMIDE (INCRUSE ELLIPTA) 7'S IH SCH (09:27)
[2021-02-06] MEDS: RT--FLUTICASONE/SALMETEROL 232-14 (AIRDUO RespiCLICK) IH SCH (09:27)
--- NOTE | 2021-02-06 10:23 | Physical Therapy Daily Note ---
PT Daily Note-Current Subjective Patient agrees to PT. No c/o. Mental Status Patient Orientation: Normal For Age Attachments: Central Line Transfers SCALE: Activities may be completed with or without assistive devices. 0-Wqourkoojs-ytxqano completes the activity by him/herself with no assistance from a helper. 5-Set-up or Clean-up Assistance-helper sets up or cleans up; patient completes activity. [place] assists only prior to or following the activity. 4-Supervision or Touching Assistance-helper provides verbal cues and/or touching/steadying and/or contact guard assistance as patient completes activity. Assistance may be provided throughout the activity or intermittently. 3-Partial/Moderate Assistance-helper does LESS THAN HALF the effort. [place] li fts, holds or supports trunk or limbs, but provides less than half the effort. 2-Substantial/Maximal Assistance-helper does MORE THAN HALF the effort. [place] lifts or holds trunk or limbs and provides more than half the effort. 2-Risffkzjf-vhinxh does ALL the effort. Patient does none of the effort to complete the activity. Or, the assistance of 2 or more helpers is required for the patient to complete the activity. If activity was not attempted, code reason: 7-Patient Refused. 9-Not Applicable-not attempted and the patient did not perform the activity before the current illness, exacerbation or injury. 10-Not Attempted due to Environmental Limitations-(lack of equipment, weather restraints, etc.). 88-Not Attempted due to Medical Conditions or Safety Concerns. Sit to Stand (QC): 6 Gait Training Does the Patient Walk?: Yes Distance: 800' Walk 10 feet (QC): 6 Walk 50 ft with 2 Turns(QC): 6 Walk 150 ft (QC): 6 Walking 10ft/uneven surface-QC: 6 Gait Assistive Device: FWW Stair Training Stair Training: Handrails/: 1 handrail #of Steps: 2 1 Step (curb) (QC): 6 Stairs: Pattern: Step to Balance Picking up an Object (QC): 6 Assessment Patient tolerated treatment well and remains up in recliner. PT Fast Food Server Goals Fast Food Server Goals PT Fast Food Server Goals Time Frame: Feb 12, 2021 Roll Left & Right (QC): 6 Sit to Lying (QC): 6 Lying-Sitting on Side/Bed(QC): 6 Sit to Stand (QC): 6 Chair/Ldf-fx-Frpmx Xfer(QC): 6 Toilet Transfer (QC): 6 Walk 10 feet (QC): 6 Walk 50ft with 2 Turns (QC): 6 Walk 150 ft (QC): 6 PT Plan Treatment/Plan Treatment Plan: Continue Plan of Care Treatment Plan: Bed Mobility, Education, Functional Activity [place]ak, Functional Strength, Gait, Safety, Therapeutic Exercise, Transfers Treatment Duration: Feb 12, 2021 Frequency: 6 times per week Estimated Hrs Per Day: .25 hour per day Patient and/or Family Agrees t: Yes Time/GCodes Time In: 1001 Time Out: 1013 Total Billed Treatment Time: 12 Total Billed Treatment 1 visit FA 12 min ROBERT SCHWAB PT Feb 06, 2021 10:23
[2021-02-06] MEDS: CHOLESTYRAMINE 4 GM (QUESTRAN LITE, PREVALITE) PKT PO SCH (10:34)
[2021-02-06] MEDS: FLUTICASONE NASAL SPRAY (FLONASE) 16 GM BTL NS SCH (10:34)
--- NOTE | 2021-02-06 10:54 | Progress Note ---
Subjective Date Seen by a Provider: Feb 06, 2021 Time Seen by a Provider: 10:00 Subjective/Events-last exam doing well. no complaints at this time. good u/o Focused Exam Lactate Level 02/03/21 17:22: Lactic Acid Level 1.27 02/03/21 21:48: Lactic Acid Level 1.08 Objective Exam Vital Signs Date Time Temp Pulse Resp B/P (MAP) Pulse Ox O2 Delivery O2 Flow Rate FiO2 02/06/21 09:27 91 Nasal Cannula 1.00 02/06/21 07:51 37.3 88 16 141/68 (92) 89 Nasal Cannula 3.00 02/06/21 04:00 36.2 79 18 141/63 (89) 93 Nasal Cannula 3.00 02/06/21 00:00 36.4 74 18 135/59 (84) 94 Nasal Cannula 3.00 02/05/21 21:30 96 Room Air 02/05/21 20:00 37.0 98 18 154/68 (96) 98 Nasal Cannula 3.00 02/05/21 19:41 36.8 100 96 28 02/05/21 18:34 96 Nasal Cannula 2.00 02/05/21 18:05 36.8 100 18 113/56 (75) 92 Nasal Cannula 3.00 02/05/21 18:00 Nasal Cannula 3 02/05/21 18:00 36.3 20 137/58 (84) 96 Nasal Cannula 3 02/05/21 17:50 20 120/62 (81) 94 Nasal Cannula 3 02/05/21 17:45 Nasal Cannula 3 02/05/21 17:40 20 123/53 (76) 94 OxyMask 5 02/05/21 17:30 36.3 16 124/49 (74) 96 OxyMask 5 02/05/21 17:30 OxyMask 5 02/05/21 15:50 36.4 103 18 149/70 (96) 92 Room Air 02/05/21 14:29 96 Room Air 02/05/21 14:17 99 22 155/68 (97) 95 Room Air 02/05/21 13:49 95 Nasal Cannula 1.00 02/05/21 12:00 95 Nasal Cannula 1.00 02/05/21 12:00 129/59 (82) Nasal Cannula 1.00 I & O 02/06/21 07:00 Intake Total 1840 ml Output Total 4000 ml Balance -2160 ml Capillary Refill : Less Than 3 SecondsLess Than 3 Seconds General Appearance: No Apparent Distress HEENT: PERRL/EOMI Neck: Full Range of Motion Respiratory: Chest Non Tender, Rhonci Cardiovascular: Regular Rate, Rhythm Gastrointestinal: normal bowel sounds, non tender, soft Extremity: Normal Capillary Refill Neurologic/Psychiatric: Alert, Oriented x3 Skin: Normal Color Lymphatic: No Adenopathy Results Lab Laboratory Tests 02/06/21 06:05: White Blood Count 8.4, Red Blood Count 2.93L, Hemoglobin 8.4L, Hematocrit 27L, Mean Corpuscular Volume 91, Mean Corpuscular Hemoglobin 29, Mean Corpuscular Hemoglobin Concent 32, Red Cell Distribution Width 15.3H, Platelet Count 319, Mean Platelet Volume 8.8L, Immature Granulocyte % (Auto) 1, Neutrophils (%) (Auto) 58, Lymphocytes (%) (Auto) 20, Monocytes (%) (Auto) 9, Eosinophils (%) (Auto) 11H, Basophils (%) (Auto) 1, Neutrophils # (Auto) 4.9, Lymphocytes # (Auto) 1.7, Monocytes # (Auto) 0.8, Eosinophils # (Auto) 0.9H, Basophils # (Auto) 0.1, Immature Granulocyte # (Auto) 0.1, Sodium Level 132L, Potassium Level 4.7, Chloride Level 99, Carbon Dioxide Level 22, Anion Gap 11, Blood Urea Nitrogen 12, Creatinine 0.94, Estimat Glomerular Filtration Rate 58, BUN/Creatinine Ratio 13, Glucose Level 93, Calcium Level 8.9, Corrected Calcium 9.8, Magnesium Level 1.4L, Total Bilirubin 0.3, Aspartate Amino Transf (AST/SGOT) 11, Alanine Aminotransferase (ALT/SGPT) 8, Alkaline Phosphatase 82, Total Protein 5.8L, Albumin 2.9L Microbiology 02/03/21 C. difficile GDH Antigen & Toxins - Final, Complete 02/03/21 MRSA Screen - Final, Complete MRSA not isolated 02/03/21 Urine Culture - Final, Complete NO GROWTH 02/03/21 Blood Culture - Preliminary, Resulted No growth Assessment/Plan Assessment/Plan Assess & Plan/Chief Complaint dehydration, hyperkalemia, renal failure. may use groshong port at anytime. ambulate. encourage liquids. MICHAEL XIONG MD Feb 06, 2021 10:54
--- NOTE | 2021-02-06 12:10 | Progress Note ---
MADI HAYWARD MED STUDENT 02/06/21 1210: Subjective Date Seen by a Provider: Feb 06, 2021 Time Seen by a Provider: 09:30 Subjective/Events-last exam 02/06/21 Pt stronger and much improved today Port placement yesterday L subclavian vein, reports tenderness otherwise unre markable Signal Timer continues to improve, 0.94 today down from 1.27 Catheter will be removed today in preparation for D/C Pt adamant she does not want to return to [facility] to finish skilled care because must be in quarantine following each hospitalization and does not believe this is beneficial considering she will be stuck in the same room alone Social work coordinating d/c to home with extremely close follow-up with pcp Dr. Ba and home health Focused Exam Lactate Level 02/03/21 17:22: Lactic Acid Level 1.27 02/03/21 21:48: Lactic Acid Level 1.08 Objective Exam Last Set of Vital Signs Vital Signs Date Time Temp Pulse Resp B/P (MAP) Pulse Ox O2 Delivery O2 Flow Rate FiO2 02/06/21 11:55 36.6 77 18 130/61 (84) 93 Nasal Cannula 1.00 02/05/21 19:41 28 Capillary Refill : Less Than 3 SecondsLess Than 3 Seconds I&O Intake and Output 02/06/21 00:00 Intake Total 3390 ml Output Total 5100 ml Balance -1710 ml Intake Oral 490 ml IV Total 2900 ml Output Urine Total 3875 ml Stool Total 1225 ml General: Alert, Oriented X3, Cooperative HEENT: PERRLA Neck: Supple, No JVD, No Thyromegaly, Other (L subclavian Groshong catheter in place) Lungs: Clear to Auscultation, Normal Air Movement Heart: Regular Rate, No Murmurs Abdomen: Soft, No Tenderness, Other (ileostomy and colostomy draining liquid stool, ventral incision from intra-abdominal abscess c/d/i, percutaneous drain R flank) Extremities: No Edema, Normal Pulses, No Tenderness/Swelling Skin: No Rashes Neuro: Normal Gait, Normal Speech Psych/Mental Status: Mental Status NL, Mood NL Results Lab Laboratory Tests 02/06/21 06:05: White Blood Count 8.4, Red Blood Count 2.93L, Hemoglobin 8.4L, Hematocrit 27L, Mean Corpuscular Volume 91, Mean Corpuscular Hemoglobin 29, Mean Corpuscular Hemoglobin Concent 32, Red Cell Distribution Width 15.3H, Platelet Count 319, Mean Platelet Volume 8.8L, Immature Granulocyte % (Auto) 1, Neutrophils (%) (Auto) 58, Lymphocytes (%) (Auto) 20, Monocytes (%) (Auto) 9, Eosinophils (%) (Auto) 11H, Basophils (%) (Auto) 1, Neutrophils # (Auto) 4.9, Lymphocytes # (Auto) 1.7, Monocytes # (Auto) 0.8, Eosinophils # (Auto) 0.9H, Basophils # (Auto) 0.1, Immature Granulocyte # (Auto) 0.1, Sodium Level 132L, Potassium Level 4.7, Chloride Level 99, Carbon Dioxide Level 22, Anion Gap 11, Blood Urea Nitrogen 12, Creatinine 0.94, Estimat Glomerular Filtration Rate 58, BUN/Creatinine Ratio 13, Glucose Level 93, Calcium Level 8.9, Corrected Calcium 9.8, Magnesium Level 1.4L, Total Bilirubin 0.3, Aspartate Amino Transf (AST/SGOT) 11, Alanine Aminotransferase (ALT/SGPT) 8, Alkaline Phosphatase 82, Total Protein 5.8L, Albumin 2.9L Microbiology 02/03/21 C. difficile GDH Antigen & Toxins - Final, Complete 02/03/21 MRSA Screen - Final, Complete MRSA not isolated 02/03/21 Urine Culture - Final, Complete NO GROWTH 02/03/21 Blood Culture - Preliminary, Resulted No growth Assessment/Plan Assessment/Plan Assess & Plan/Chief Complaint Assessment: MOUSTAPHA - resolved Profound dehydration - improved Hyperkalemia - resolved Colon cancer s/p resection 3 months ago Debility requiring NH admit Abdominal abscess s/p drain placement last admit Pseudomonas Severe COPD Former smoker Severe CABAZON Plan: Remove catheter today PT Continue IVF Monitor closely Flagyl Home meds Hold Lisinopril due to MOUSTAPHA Start Cholestyramine Home O2 eval Discharge home with close follow-up pcp Dr. Ba early next week and home health Final Diagnosis MOUSTAPHA and dehydration secondary to high output ileostomy Diagnosis/Problems Diagnosis/Problems (1) COLON MASS (2) abd dehiscene, abscess (3) COPD (chronic obstructive pulmonary disease) Qualifiers: Qualified Codes: J44.9 - Chronic obstructive pulmonary disease, unspecified (4) Colon cancer (5) Acute renal failure Status: Acute (6) Hyponatremia (7) Intra-abdominal abscess post-procedure Status: Acute (8) Ileus following gastrointestinal surgery (9) Ileostomy in place (10) Hyperkalemia Status: Acute GENNA MARTÍNEZ DO 02/07/21 0556: Subjective Subjective/Events-last exam Pt actually wants to go home tomorrow Will [facility] home health Will need a home O2 evaluation Labs look good Creatinine 0.94 BP stable Will DC the catheter Groshong port placed on the left subclavian Review of Systems General: Fatigue, Malaise Objective Exam General: Alert, Oriented X3, Cooperative, No Acute Distress Lungs: Clear to Auscultation, Normal Air Movement Heart: Regular Rate, Normal S1, Normal S2, No Murmurs Neuro: Normal Gait, Normal Speech, Strength at 5/5 X4 Ext, Normal Tone Psych/Mental Status: Mental Status NL, Mood NL Assessment/Plan Assessment/Plan Assess & Plan/Chief Complaint DC tomorrow O2 study Supervisory-Addendum Brief Verification & Attestation Participated in pt care: history, MDM, physical Personally performed: exam, history, MDM, supervision of care Care discussed with: Medical Student Procedures: n/a Results interpretation: Verified all documentation Verification and Attestation of Medical Student E/M Service A medical student performed and documented this service in my presence. I reviewed and verified all information documented by the medical student and made modifications to such information, when appropriate. I personally performed the physical exam and medical decision making. Genna Martínez, Feb 07, 2021,05:56 MADI HAYWARD MED STUDENT Feb 06, 2021 12:10 GENNA MARTÍNEZ DO Feb 07, 2021 05:56
--- NOTE | 2021-02-06 13:12 | Occupational Ther Daily Note ---
OT Current Status-Daily Note Subjective Pt alert, lying in bed. Pt agrees to therapy. No c/o pain. Mental Status/Objective Patient Orientation: Person, Place, Time, Situation Attachments: Colostomy/Ileostomy, Drains, Lam Catheter, IV (central line, port), Oxygen ADL-Treatment Therapy Code Descriptions/Definitions Functional [place] Measure: 0=Not Assessed/NA 4=Minimal Assistance 1=Total Assistance 5=Supervision or Setup 2=Maximal Assistance 6=Modified [place] 3=Moderate Assistance 7=Complete IndependenceSCALE: Activities may be completed with or without assistive devices. 8-Ihsewjscwf-dupsrga completes the activity by him/herself with no assistance from a helper. 5-Set-up or Clean-up Assistance-helper sets up or cleans up; patient completes activity. [place] assists only prior to or following the activity. 4-Supervision or Touching Assistance-helper provides verbal cues and/or touching/steadying and/or contact guard assistance as patient completes activity. Assistance may be provided throughout the activity or intermittently. 3-Partial/Moderate Assistance-helper does LESS THAN HALF the effort. [place] lifts, holds or supports trunk or limbs, but provides less than half the effort. 2-Substantial/Maximal Assistance-helper does MORE THAN HALF the effort. [place] lifts or holds trunk or limbs and provides more than half the effort. 5-Cgpeiuaxo-ugmxmf does ALL the effort. Patient does none of the effort to complete the activity. Or, the assistance of 2 or more helpers is required for the patient to complete the activity. If activity was not attempted, code reason: 7-Patient Refused. 9-Not Applicable-not attempted and the patient did not perform the activity before the current illness, exacerbation or injury. 10-Not Attempted due to Environmental Limitations-(lack of equipment, weather restraints, etc.). 88-Not Attempted due to Medical Conditions or Safety Concerns. Other Treatment Pt independent with eating. Pt independent with completing B UE light resistance theraband exercises. Pt completes exercises multiple times per day. Pt independent with bed mobility. After set up, pt able to don/doff socks. After therapy, pt lying in bed with call light/phone in reach. All needs met in room. OT Skein Winder Goals Skein Winder Goals Time Frame: Feb 12, 2021 Eating (QC): 6 Oral Hygiene (QC): 6 Toileting Hygiene (QC): 6 Shower/Bathe Self (QC): 6 Upper Body Dressing (QC): 6 Lower Body Dressing (QC): 6 On/Off Footwear (QC): 6 Additional Goals: 1-Demonstrate ADL Tasks, 2-Verbalize Understanding, 3- ImproveStrength/Palak 1=Demonstrate adherence to instructed precautions during ADL tasks. 2=Patient will verbalize/demonstrate understanding of assistive devices/modifications for ADL. 3=Patient will improve strength/tolerance for activity to enable patient to perform ADL's. OT Education/Plan Problem List/Assessment Assessment: Decreased Activ Tolerance Discharge Recommendations Plan/Recommendations: Continue POC Treatment Plan/Plan of Care Patient would benefit from OT for education, treatment and training to promote independence in ADL's, mobility, safety and/or upper extremity function for ADL's. Plan of Care: ADL Retraining, Caregiver Training, Functional Mobility, UE Funct Exercise/Act Treatment Duration: Feb 12, 2021 Frequency: 5 times per week Estimated Hrs Per Day: .25 hour per day Agreement: Yes Rehab Potential: Fair Time/GCodes Start Time: 12:50 Stop Time: 13:06 Total Time Billed (hr/min): 16 Billed Treatment Time 1 visit-FA 1 (16 min) RAIZA BROWNING Feb 06, 2021 13:12
--- NOTE | 2021-02-06 13:58 | Anesthesia-General Post-Op ---
MAC Patient Condition Mental Status/LOC: Same as Preop Cardiovascular: Satisfactory Nausea/Vomiting: Absent Respiratory: Satisfactory Pain: Controlled Complications: Absent Post Op Complications Complications None Follow Up Care/Instructions Patient Instructions None needed. Anesthesiology Discharge Order Discharge Order Patient is doing well, no complaints, stable vital signs, no apparent adverse anesthesia problems. CHONG HAJI DO Feb 06, 2021 13:58
[2021-02-06] MEDS ORDERED: ENOXAPARIN 40 MG/0.4 ML (LOVENOX) SYR SC SCH (15:00)
[2021-02-06] MEDS: MONTELUKAST 10 MG (SINGULAIR) TAB PO SCH (20:37)
[2021-02-06] MEDS ORDERED: FLUT9.9S NSEACH (21:15)
[2021-02-06] MEDS ORDERED: MULT-1076 PO (21:15)
[2021-02-06] MEDS ORDERED: TMSL.4C PO (21:15)
[2021-02-06] MEDS ORDERED: MONT10TA32 PO (21:15)
[2021-02-06] MEDS ORDERED: NICO-586 TD (21:15)
[2021-02-06] MEDS ORDERED: CETI10TA17 PO (21:15)
[2021-02-06] MEDS ORDERED: SUCR1TAB PO (21:15)
[2021-02-06] MEDS ORDERED: CHOL4PAC3 PO (21:15)
[2021-02-06] MEDS ORDERED: UMEC1BLS IH (21:15)
[2021-02-06] MEDS ORDERED: MELA3TAB39 PO (21:15)
[2021-02-06] MEDS ORDERED: PANT40TA52 PO (21:15)
[2021-02-06] MEDS ORDERED: MAGN400T39 PO (21:15)
[2021-02-06] MEDS ORDERED: FENT1PAT8 PO (21:15)
[2021-02-06] MEDS ORDERED: BETH50TA2 PO (21:15)
[2021-02-06] MEDS ORDERED: METO-333 PO (21:15)
[2021-02-06] MEDS ORDERED: ALBU2.5V4 INH (21:15)
[2021-02-06] MEDS ORDERED: NF-NACL1GT PO (21:15)
[2021-02-06] MEDS ORDERED: DOCU100C37 PO (21:15)
[2021-02-06] MEDS ORDERED: ALPR0.25 PO (21:15)
[2021-02-06] MEDS ORDERED: MICO5POW6 TOP (21:15)
[2021-02-06] MEDS ORDERED: OXYC5TAB PO (21:15)
[2021-02-06] MEDS ORDERED: AMLO5TAB4 PO (21:15)
[2021-02-06] MEDS ORDERED: ONDA-105 PO (21:15)
[2021-02-06] MEDS ORDERED: FLUT1BLS3 IH (21:15)
--- NOTE | 2021-02-06 21:17 | D/C HH Face to Face Order ---
D/C Face to Face Orders Reconcile Patient Problems Problems Reviewed?: Yes Instructions for Patient [facility] Home Health Patient Instructions/FollowUp: Dr Ba as scheduled in 1 week Physician to follow Patient: Ba Discharge Diet for Home: No Restrictions Patient Problems: ileostomy COPD Patient Data-Allergies,Ht & Wt Patient Allergies: Coded Allergies: Penicillins (Verified Allergy, Unknown, Anaphylaxis, 09/26/20) budesonide (Verified Allergy, Unknown, Nausea, PT USES TRELEGY, 12/20/20) formoterol (Verified Allergy, Unknown, Nausea, 09/26/20) midazolam (Verified Allergy, Unknown, Anaphylaxis, pt has rec Lorazepam & alprazolam in the past, 02/04/21) Has received Lorazepam & alprazolam without issue Home Health Need/Face to Face Date of Face to Face: Feb 06, 2021 Clinical Findings: Generalized weakness and fatigue, Instability, Muscle weakness, Shortness of breath, Unsteady gait I have seen Pt [id number]: Yes Discharged To: Home Diagnosis/Conditions: ileostomy COPD Patient is Homebound due to: Muscle weakness, Shortness of breath/distress Homebound Status Due to the above stated illness, injury or surgical procedure (medical condition or diagnosis) and associated clinical findings, the patient is homebound because of his/her inability to leave home except with aid of a supportive device and/or person AND leaving the home requires a considerable and taxing effort or is medically contraindicated. Pt req the following assistanc: [facility] Nursing Orders Home Health Services Order: Nursing Services, Supervisor Facepiece Line-Evaluate & Treat, Physical Therapy-Evaluate & Treat Home Health Infusion Therapy Line Start Date: Feb 03, 2021 Certify Stmt I certify that this patient is under my care and that I, a nurse practitioner or a physician; a social and human services assistant working with me, had a face to face encounter that - meets the physician face to face encounter requirements with this patient as dated. WILFREDO MARTÍNEZ DO Feb 06, 2021 21:17
[2021-02-07] MEDS: BETHANECHOL 25 MG (URECHOLINE) TAB PO SCH ×2 (06:26→11:51)
[2021-02-07] MEDS: SUCRALFATE 1 GM (CARAFATE) TAB PO SCH ×2 (06:26→11:50)
[2021-02-07 06:54] LABS: BASOPHILS # (AUTO) 0.1 10^3/uL (0.0-0.1); BASOPHILS % (AUTO) 1 % (0-10); EOSINOPHILS % (AUTO) 11 % (0-10); HEMATOCRIT 28 % (35-52); HEMOGLOBIN 8.9 g/dL (11.5-16.0); LYMPHOCYTES # (AUTO) 2.4 10^3/uL (1.0-4.0); LYMPHOCYTES % (AUTO) 25 % (12-44); MEAN CORPUSCULAR HEMOGLOBIN 30 pg (25-34); MEAN CORPUSCULAR HGB CONC 32 g/dL (32-36); MEAN CORPUSCULAR VOLUME 92 fL (80-99); MEAN PLATELET VOLUME 8.7 fL (9.0-12.2); MONOCYTES # (AUTO) 0.9 10^3/uL (0.0-1.0); MONOCYTES % (AUTO) 9 % (0-12); NEUTROPHILS # (AUTO) 5.1 10^3/uL (1.8-7.8); NEUTROPHILS % (AUTO) 53 % (42-75); PLATELET COUNT 310 10^3/uL (130-400); WHITE BLOOD COUNT 9.5 10^3/uL (4.3-11.0)
[2021-02-07 07:05] LABS: CHLORIDE 98 MMOL/L (98-107); POTASSIUM 4.4 MMOL/L (3.6-5.0); SODIUM 131 MMOL/L (135-145)
[2021-02-07 07:06] LABS: CALCIUM 8.8 MG/DL (8.5-10.1)
[2021-02-07 07:07] LABS: GLUCOSE 109 MG/DL (70-105)
[2021-02-07 07:09] LABS: BILIRUBIN,TOTAL 0.2 MG/DL (0.1-1.0); CARBON DIOXIDE 22 MMOL/L (21-32)
[2021-02-07 07:11] LABS: ALKALINE PHOSPHATASE 77 U/L (40-136); CREATININE SERUM 0.84 MG/DL (0.60-1.30); GFR ESTIMATED > 60
[2021-02-07 07:12] LABS: BUN/CREATININE RATIO 12
[2021-02-07 07:14] LABS: ALANINE AMINOTRANSFERASE 7 U/L (0-55)
[2021-02-07 08:00] VITALS: BP 123/67
--- NOTE | 2021-02-07 08:07 | Occupational Ther Daily Note ---
OT Current Status-Daily Note Subjective Pt alert, lying in bed. Pt agrees to therapy. No c/o pain at this time. Mental Status/Objective Patient Orientation: Person, Place, Time, Situation Attachments: Drains, IV, Oxygen (1L) ADL-Treatment Pt agrees to sponge bath. Discussed with pt about covering ostomies while showering at home. Pt independent with bed mobility. Independent with toilet transfer and toileting. Sitting at sink, pt independent with bathing and oral care. After set up, pt able to complete dressing by self. After therapy, pt lying in bed with call light/phone in reach. All needs met in room. Therapy Code Descriptions/Definitions Functional [place] Measure: 0=Not Assessed/NA 4=Minimal Assistance 1=Total Assistance 5=Supervision or Setup 2=Maximal Assistance 6=Modified [place] 3=Moderate Assistance 7=Complete IndependenceSCALE: Activities may be completed with or without assistive devices. 8-Azwsprichv-qjptpyn completes the activity by him/herself with no assistance from a helper. 5-Set-up or Clean-up Assistance-helper sets up or cleans up; patient completes activity. [place] assists only prior to or following the activity. 4-Supervision or Touching Assistance-helper provides verbal cues and/or touching/steadying and/or contact guard assistance as patient completes acti vity. Assistance may be provided throughout the activity or intermittently. 3-Partial/Moderate Assistance-helper does LESS THAN HALF the effort. [place] lifts, holds or supports trunk or limbs, but provides less than half the effort. 2-Substantial/Maximal Assistance-helper does MORE THAN HALF the effort. [place] lifts or holds trunk or limbs and provides more than half the effort. 5-Xteigvxoe-hsuqbt does ALL the effort. Patient does none of the effort to complete the activity. Or, the assistance of 2 or more helpers is required for the patient to complete the activity. If activity was not attempted, code reason: 7-Patient Refused. 9-Not Applicable-not attempted and the patient did not perform the activity before the current illness, exacerbation or injury. 10-Not Attempted due to Environmental Limitations-(lack of equipment, weather restraints, etc.). 88-Not Attempted due to Medical Conditions or Safety Concerns. Eating (QC): 6 Oral Hygiene (QC): 6 Shower/Bathe Self (QC): 6 Upper Body Dressing (QC): 5 Lower Body Dressing (QC): 5 On/Off Footwear: 5 Toileting Hygiene (QC): 6 Toilet Transfer (QC): 6 Nrsg in room during ADLs. OT Filler Wiper Goals Filler Wiper Goals Time Frame: Feb 12, 2021 Eating (QC): 6 Oral Hygiene (QC): 6 Toileting Hygiene (QC): 6 Shower/Bathe Self (QC): 6 Upper Body Dressing (QC): 6 Lower Body Dressing (QC): 6 On/Off Footwear (QC): 6 Additional Goals: 1-Demonstrate ADL Tasks, 2-Verbalize Understanding, 3- ImproveStrength/[place]ak 1=Demonstrate adherence to instructed precautions during ADL tasks. 2=Patient will verbalize/demonstrate understanding of assistive devices/modifications for ADL. 3=Patient will improve strength/tolerance for activity to enable patient to perform ADL's. OT Education/Plan Problem List/Assessment Assessment: Decreased Activ Tolerance Discharge Recommendations Plan/Recommendations: Continue POC Treatment Plan/Plan of Care Patient would benefit from OT for education, treatment and training to promote independence in ADL's, mobility, safety and/or upper extremity function for ADL's. Plan of Care: ADL Retraining, Caregiver Training, Functional Mobility, UE Funct Exercise/Act Treatment Duration: Feb 12, 2021 Frequency: 5 times per week Estimated Hrs Per Day: .25 hour per day Agreement: Yes Rehab Potential: Fair Time/GCodes Start Time: 07:55 Stop Time: 08:35 Total Time Billed (hr/min): 40 Billed Treatment Time 1 visit-ADL 3 (40 min) RAIZA BROWNING Feb 07, 2021 08:07
[2021-02-07] MEDS: DOCUSATE SODIUM 100 MG (COLACE) CAP PO SCH (08:43)
[2021-02-07] MEDS: SENNA W/DOCUSATE (SENOKOT S) TABLET PO SCH (08:43)
[2021-02-07] MEDS: METOCLOPRAMIDE 5 MG (REGLAN) TAB PO SCH (08:43)
[2021-02-07] MEDS: LORATADINE (CLARITIN) 10 MG TAB PO SCH (08:44)
[2021-02-07] MEDS: TAMSULOSIN 0.4 MG (FLOMAX) CAP PO SCH (08:44)
[2021-02-07] MEDS: SODIUM CHLORIDE 1 GM TABLET PO SCH (08:44)
[2021-02-07] MEDS: MULTIVIT W/MINERALS TAB (THERAGRAN M) PO SCH (08:44)
[2021-02-07] MEDS: RT-ALBUTEROL SULF 2.5 MG/3 ML PRE-MIX VIAL INH SCH (08:44)
[2021-02-07] MEDS: MAGNESIUM OXIDE (MAG-OX)400 MG TAB PO SCH (08:45)
[2021-02-07] MEDS: UMECLIDINIUM BROMIDE (INCRUSE ELLIPTA) 7'S IH SCH (08:45)
[2021-02-07] MEDS: PANTOPRAZOLE 40 MG (PROTONIX) TAB PO SCH (08:45)
[2021-02-07] MEDS: polyethylene glycoL POWDER 17 GM (MIRALAX) PACK PO SCH (08:45)
[2021-02-07] MEDS: meTOprolol TARTRATE 25 MG (LOPRESSOR) TABLET PO SCH (08:45)
[2021-02-07] MEDS: NICOTINE 7 MG (NICODERM) PATCH TD SCH (08:46)
[2021-02-07] MEDS: DAKIN'S 1/4 STRENGTH (0.125%) 473 ML BTL TOP SCH (08:46)
[2021-02-07] MEDS: metroNIDAZOLE 500MG/100ML IVPB 100 ML IV SCH (08:46)
[2021-02-07] MEDS: FLUTICASONE NASAL SPRAY (FLONASE) 16 GM BTL NS SCH (08:49)
[2021-02-07] MEDS: CHOLESTYRAMINE 4 GM (QUESTRAN LITE, PREVALITE) PKT PO SCH (08:49)
[2021-02-07] MEDS: RT--FLUTICASONE/SALMETEROL 232-14 (AIRDUO RespiCLICK) IH SCH (08:50)
--- NOTE | 2021-02-07 11:13 | Discharge Summary ---
Diagnosis/Chief Complaint Date of Admission Feb 03, 2021 at 19:30 Date of Discharge Discharge Date: Feb 07, 2021 Discharge Diagnosis Assessment: MOUSTAPHA - improved Profound dehydration - improved Hyperkalemia - improved and stable Colon cancer s/p resection 3 months ago Debility requiring NH admit Abdominal abscess s/p drain placement last admit Pseudomonas Severe COPD Former smoker Severe UPPER [place] Plan: Continue IVF Monitor closely Flagyl Home meds Hold Lisinopril due to MOUSTAPHA Start Cholestyramine Move to 4th floor PT Dietary consult Discharge Summary Discharge Physical Examination Allergies: Coded Allergies: Penicillins (Verified Allergy, Unknown, Anaphylaxis, 09/26/20) budesonide (Verified Allergy, Unknown, Nausea, PT USES TRELEGY, 12/20/20) formoterol (Verified Allergy, Unknown, Nausea, 09/26/20) midazolam (Verified Allergy, Unknown, Anaphylaxis, pt has rec Lorazepam & alprazolam in the past, 02/04/21) Has received Lorazepam & alprazolam without issue Vitals & I&Os Vital Signs Date Time Temp Pulse Resp B/P (MAP) Pulse Ox O2 Delivery O2 Flow Rate FiO2 02/07/21 08:50 93 Nasal Cannula 2.00 02/07/21 08:00 37.1 86 22 123/67 (85) 02/05/21 19:41 28 Hospital Course Was the Problem List Reviewed?: Yes CC: Acute Renal Failure HPI: This is a 75yoWF clinic pt of Dr. Ba with a hx of COPD, HTN, HLD, and adenocarcinoma of transverse colon who has had multiple hospital stays in the last four months due to colon cancer resection complications. She presented to [facility] ED from [facility] in [place] not feeling well, found to have creatinine of 4.2 and potassium of 6.2. Pt was given aggressive fluids overnight and hyperkalemia management. Surgery was consulted and noted high output ileostomy to be causing dehydration and subsequent hyperkalemia. Dr. Lynch started Cholestyramine, encouraged increased fiber intake to slow bowel motility, and also placed a Gro[place] port which pt will eventually need for chemotherapy. Oncology was consulted to follow along with her progress and adjuvant chemotherapy was not indicated at this time due to her condition. Dr. Morgan will meet with patient upon her recovery to discuss next steps regarding resected colon cancer and right pulmonary nodule noted on initial PET CT scan. Ms. Pinto stayed 4 nights and has since returned to baseline with good urinary output and her creatinine now 0.84. She has not been home since early October due to numerous health complications and did not want to be discharged back to [facility] because of quarantine requirement. She is discharged to her home today where she will stay with her sister and close care from home health. Pt will follow with pcp Dr. Ba next Wednesday and arrange to meet with Dr. Morgan shortly after that. MADI HAYWARD MED STUDENT Labs (last 24 hrs) Laboratory Tests 02/03/21 17:22: White Blood Count 14.4H, Red Blood Count 3.52L, Hemoglobin 10.3L, Hematocrit 33L , Mean Corpuscular Volume 92, Mean Corpuscular Hemoglobin 29, Mean Corpuscular H emoglobin Concent 32, Red Cell Distribution Width 15.5H, Platelet Count 508H, Mean Platelet Volume 8.9L, Immature Granulocyte % (Auto) 2, Neutrophils (%) (Auto) 56, Lymphocytes (%) (Auto) 22, Monocytes (%) (Auto) 10, Eosinophils (%) (Auto) 9, Basophils (%) (Auto) 1, Neutrophils # (Auto) 8.1H, Lymphocytes # (Auto) 3.2, Monocytes # (Auto) 1.4H, Eosinophils # (Auto) 1.2H, Basophils # (A uto) 0.1, Immature Granulocyte # (Auto) 0.4H, Neutrophils % (Manual) 47, Lymphocytes % (Manual) 33, Monocytes % (Manual) 9, Eosinophils % (Manual) 8, Basophils % (Manual) 0, Metamyelocytes % 3, Band Neutrophils 0, Anisocytosis SLIGHT, Prothrombin Time 15.4H, INR Comment 1.2, Activated Partial Thromboplast Time 28, Lactic Acid Level 1.27 02/03/21 18:36: Sodium Level 129L, Potassium Level 6.0H, Chloride Level 102, Carbon Dioxide Level 17L, Anion Gap 10, Blood Urea Nitrogen 35H, Creatinine 4.28H, Estimat Glomerular Filtration Rate 10, BUN/Creatinine Ratio 8, Glucose Level 113H, Calcium Level 7.5L, Corrected Calcium 8.3L, Total Bilirubin 0.2, Aspartate Amino Transf (AST/SGOT) 13, Alanine Aminotransferase (ALT/SGPT) 11, Alkaline Phosphatase 82, Total Protein 5.9L, Albumin 3.0L 02/03/21 19:01: Urine Color YELLOW, Urine Clarity CLEAR, Urine pH 5.0, Urine Specific [place] 1.025H, Urine Protein NEGATIVE, Urine Glucose (UA) NEGATIVE, Urine Ketones NEGATIVE, Urine Nitrite NEGATIVE, Urine Bilirubin NEGATIVE, Urine Urobilinogen 0.2, Urine Leukocyte Esterase NEGATIVE, Urine RBC (Auto) NEGATIVE, Urine RBC NONE, Urine WBC RARE, Urine Squamous Epithelial Cells 0-2, Urine Crystals PRESENTH, Urine Amorphous Sediment FEW CHERI URATESH, Urine Bacteria TRACE, Urine Casts PRESENT, Urine Hyaline Casts RARE, Urine Mucus NEGATIVE, Urine Culture Indicated NO 02/03/21 19:30: Lab Scanned Report Referred Lab Report 02/03/21 21:48: Sodium Level 132L, Potassium Level 5.4H, Chloride Level 103, Carbon Dioxide Level 15L, Anion Gap 14, Blood Urea Nitrogen 34H, Creatinine 3.75#H, Estimat Glomerular Filtration Rate 12, BUN/Creatinine Ratio 9, Glucose Level 119H, Lactic Acid Level 1.08, Calcium Level 8.7, Corrected Calcium 9.5, Total Bilirubin 0.3, Aspartate Amino Transf (AST/SGOT) 10, Alanine Aminotransferase (ALT/SGPT) 10, Alkaline Phosphatase 80, Total Protein 6.1L, Albumin 3.0L 02/03/21 21:53: Blood Gas Puncture Site RT RAD, Blood Gas Patient Temperature 36.5, Arterial Blood pH 7.31*L, Arterial Blood Partial Pressure CO2 38, Arterial Blood Partial Pressure O2 41L, Arterial Blood HCO3 19L, Arterial Blood Total CO2 20.0L, Arterial Blood Oxygen Saturation 66L, Arterial Blood Base Excess -6.4L, Adi Test POS, Blood Gas Ventilator Setting NO, Blood Gas Inspired Oxygen 3L 02/04/21 03:30: Sodium Level 132L, Potassium Level 5.7H, Chloride Level 104, Carbon Dioxide Level 17L, Anion Gap 11, Blood Urea Nitrogen 32H, Creatinine 3.05#H, Estimat Glomerular Filtration Rate 15, BUN/Creatinine Ratio 10, Glucose Level 114H, Calcium Level 8.4L, Corrected Calcium 9.2, Total Bilirubin 0.3, Aspartate Amino Transf (AST/SGOT) 8, Alanine Aminotransferase (ALT/SGPT) 9, Alkaline Phosphatase 79, Total Protein 5.8L, Albumin 3.0L, White Blood Count 11.3H, Red Blood Count 2.89L, Hemoglobin 8.4L, Hematocrit 27L, Mean Corpuscular Volume 92, Mean Corpuscular Hemoglobin 29, Mean Corpuscular Hemoglobin Concent 32, Red Cell Distribution Width 15.3H, Platelet Count 387, Mean Platelet Volume 9.1, Immature Granulocyte % (Auto) 2, Neutrophils (%) (Auto) 57, Lymphocytes (%) (Auto) 21, Monocytes (%) (Auto) 10, Eosinophils (%) (Auto) 9, Basophils (%) (Auto) 1, Neutrophils # (Auto) 6.5, Lymphocytes # (Auto) 2.4, Monocytes # (Auto) 1.2H, Eosinophils # (Auto) 1.0H, Basophils # (Auto) 0.1, Immature Granulocyte # (Auto) 0.2H, Phosphorus Level 5.9H, Magnesium Level 0.7*L 02/04/21 15:15: Magnesium Level 1.5L 02/04/21 21:24: Stool Occult Blood Immunoassay NEGATIVE 02/04/21 22:14: Sodium Level 132L, Potassium Level 4.7, Chloride Level 100, Carbon Dioxide Level 22, Anion Gap 10, Blood Urea Nitrogen 19H, Creatinine 1.42H, Estimat Glomerular Filtration Rate 36, BUN/Creatinine Ratio 13, Glucose Level 117H, Calcium Level 8.3L, Phosphorus Level 3.9, Magnesium Level 1.3L 02/05/21 04:18: Sodium Level 132L, Potassium Level 4.4, Chloride Level 99, Carbon Dioxide Level 23, Anion Gap 10, Blood Urea Nitrogen 16, Creatinine 1.27, Estimat Glomerular Filtration Rate 41, BUN/Creatinine Ratio 13, Glucose Level 109H, Calcium Level 8.6, Phosphorus Level 4.1, Magnesium Level 2.4, White Blood Count 8.8, Red Blood Count 2.68L, Hemoglobin 7.9L, Hematocrit 25L, Mean Corpuscular Volume 92, Mean Corpuscular Hemoglobin 30, Mean Corpuscular Hemoglobin Concent 32, Red Cell Distribution Width 15.2H, Platelet Count 293, Mean Platelet Volume 8.6L, Immature Granulocyte % (Auto) 1, Neutrophils (%) (Auto) 55, Lymphocytes (%) (Auto) 25, Monocytes (%) (Auto) 10, Eosinophils (%) (Auto) 8, Basophils (%) (Auto) 1, Neutrophils # (Auto) 4.8, Lymphocytes # (Auto) 2.2, Monocytes # (Auto) 0.9, Eosinophils # (Auto) 0.7H, Basophils # (Auto) 0.0, Immature Granulocyte # (Auto) 0.1 02/06/21 06:05: Sodium Level 132L, Potassium Level 4.7, Chloride Level 99, Carbon Dioxide Level 22, Anion Gap 11, Blood Urea Nitrogen 12, Creatinine 0.94, Estimat Glomerular Filtration Rate 58, BUN/Creatinine Ratio 13, Glucose Level 93, Calcium Level 8.9, Magnesium Level 1.4L, White Blood Count 8.4, Red Blood Count 2.93L, Hemoglobin 8.4L, Hematocrit 27L, Mean Corpuscular Volume 91, Mean Corpuscular Hemoglobin 29, Mean Corpuscular Hemoglobin Concent 32, Red Cell Distribution Wi dth 15.3H, Platelet Count 319, Mean Platelet Volume 8.8L, Immature Granulocyte % (Auto) 1, Neutrophils (%) (Auto) 58, Lymphocytes (%) (Auto) 20, Monocytes (%) (Auto) 9, Eosinophils (%) (Auto) 11H, Basophils (%) (Auto) 1, Neutrophils # (Auto) 4.9, Lymphocytes # (Auto) 1.7, Monocytes # (Auto) 0.8, Eosinophils # (Auto) 0.9H, Basophils # (Auto) 0.1, Immature Granulocyte # (Auto) 0.1, Corrected Calcium 9.8, Total Bilirubin 0.3, Aspartate Amino Transf (AST/SGOT) 11, Alanine Aminotransferase (ALT/SGPT) 8, Alkaline Phosphatase 82, Total Protein 5.8L, Albumin 2.9L 02/07/21 06:45: White Blood Count 9.5, Red Blood Count 3.00L, Hemoglobin 8.9L, Hematocrit 28L, Mean Corpuscular Volume 92, Mean Corpuscular Hemoglobin 30, Mean Corpuscular Hemoglobin Concent 32, Red Cell Distribution Width 15.1H, Platelet Count 310, Me an Platelet Volume 8.7L, Immature Granulocyte % (Auto) 1, Neutrophils (%) (Auto) 53, Lymphocytes (%) (Auto) 25, Monocytes (%) (Auto) 9, Eosinophils (%) (Auto) 11H, Basophils (%) (Auto) 1, Neutrophils # (Auto) 5.1, Lymphocytes # (Auto) 2.4, Monocytes # (Auto) 0.9, Eosinophils # (Auto) 1.0H, Basophils # (Auto) 0.1, Immature Granulocyte # (Auto) 0.1, Sodium Level 131L, Potassium Level 4.4, Chloride Level 98, Carbon Dioxide Level 22, Anion Gap 11, Blood Urea Nitrogen 10, Creatinine 0.84, Estimat Glomerular Filtration Rate > 60, BUN/Creatinine Ratio 12, Glucose Level 109H, Calcium Level 8.8, Corrected Calcium 9.6, Total Bilirubin 0.2, Aspartate Amino Transf (AST/SGOT) 11, Alanine Aminotransferase (ALT/SGPT) 7, Alkaline Phosphatase 77, Total Protein 6.0L, Albumin 3.0L Microbiology 02/03/21 C. difficile GDH Antigen & Toxins - Final, Complete 02/03/21 MRSA Screen - Final, Complete MRSA not isolated 02/03/21 Urine Culture - Final, Complete NO GROWTH 02/03/21 Blood Culture - Preliminary, Resulted No growth Pending Labs Microbiology Date/Time Source Procedure Growth Status 02/03/21 22:07 Stool C. difficile GDH Antigen & Toxins - Final Complete 02/03/21 21:20 Nasal MRSA Screen - Final MRSA not isolated Complete 02/03/21 19:01 Urine U Cath,Nos Urine Culture - Final NO GROWTH Complete 02/03/21 17:43 Peripheral Lt Ac Blood Culture - Preliminary No growth Resulted 02/03/21 17:22 Peripheral Lt Ac Blood Culture - Preliminary No growth Resulted Laboratory Tests 02/03/21 17:22: White Blood Count 14.4, Red Blood Count 3.52, Hemoglobin 10.3, Hematocrit 33, Mean Corpuscular Volume 92, Mean Corpuscular Hemoglobin 29, Mean Corpuscular Hemoglobin Concent 32, Red Cell Distribution Width 15.5, Platelet Count 508, Mean Platelet Volume 8.9, Immature Granulocyte % (Auto) 2, Neutrophils (%) (Auto) 56, Lymphocytes (%) (Auto) 22, Monocytes (%) (Auto) 10, Eosinophils (%) (Auto) 9, Basophils (%) (Auto) 1, Neutrophils # (Auto) 8.1, Lymphocytes # (Auto) 3.2, Monocytes # (Auto) 1.4, Eosinophils # (Auto) 1.2, Basophils # (Auto) 0.1, Immature Granulocyte # (Auto) 0.4, Neutrophils % (Manual) 47, Lymphocytes % (Manual) 33, Monocytes % (Manual) 9, Eosinophils % (Manual) 8, Basophils % (Manual) 0, Metamyelocytes % 3, Band Neutrophils 0, Anisocytosis SLIGHT, Prothrombin Time 15.4, INR Comment 1.2, Activated Partial Thromboplast Time 28, Lactic Acid Level 1.27 02/03/21 18:36: Sodium Level 129, Potassium Level 6.0, Chloride Level 102, Carbon Dioxide Level 17, Anion Gap 10, Blood Urea Nitrogen 35, Creatinine 4.28, Estimat Glomerular Filtration Rate 10, BUN/Creatinine Ratio 8, Glucose Level 113, Calcium Level 7.5, Corrected Calcium 8.3, Total Bilirubin 0.2, Aspartate Amino Transf (AST/SGOT) 13, Alanine Aminotransferase (ALT/SGPT) 11, Alkaline Phosphatase 82, Total Protein 5.9, Albumin 3.0 02/03/21 19:01: Urine Color YELLOW, Urine Clarity CLEAR, Urine pH 5.0, Urine Specific [place] 1.025, Urine Protein NEGATIVE, Urine Glucose (UA) NEGATIVE, Urine Ketones NEGATIVE, Urine Nitrite NEGATIVE, Urine Bilirubin NEGATIVE, Urine Urobilinogen 0.2, Urine Leukocyte Esterase NEGATIVE, Urine RBC (Auto) NEGATIVE, Urine RBC NONE, Urine WBC RARE, Urine Squamous Epithelial Cells 0-2, Urine Crystals PRESENT, Urine Amorphous Sediment FEW CHERI URATES, Urine Bacteria TRACE, Urine Casts PRESENT, Urine Hyaline Casts RARE, Urine Mucus NEGATIVE, Urine Culture Indicated NO 02/03/21 19:30: Lab Scanned Report Referred Lab Report 02/03/21 21:48: Sodium Level 132, Potassium Level 5.4, Chloride Level 103, Carbon Dioxide Level 15, Anion Gap 14, Blood Urea Nitrogen 34, Creatinine 3.75, Estimat Glomerular Filtration Rate 12, BUN/Creatinine Ratio 9, Glucose Level 119, Lactic Acid Level 1.08, Calcium Level 8.7, Corrected Calcium 9.5, Total Bilirubin 0.3, Aspartate Amino Transf (AST/SGOT) 10, Alanine Aminotransferase (ALT/SGPT) 10, Alkaline Phosphatase 80, Total Protein 6.1, Albumin 3.0 02/03/21 21:53: Blood Gas Puncture Site RT RAD, Blood Gas Patient Temperature 36.5, Arterial Blood pH 7.31, Arterial Blood Partial Pressure CO2 38, Arterial Blood Partial Pressure O2 41, Arterial Blood HCO3 19, Arterial Blood Total CO2 20.0, Arterial Blood Oxygen Saturation 66, Arterial Blood Base Excess -6.4, Adi Test POS, Blood Gas Ventilator Setting NO, Blood Gas Inspired Oxygen 3L 02/04/21 03:30: Sodium Level 132, Potassium Level 5.7, Chloride Level 104, Carbon Dioxide Level 17, Anion Gap 11, Blood Urea Nitrogen 32, Creatinine 3.05, Estimat Glomerular Filtration Rate 15, BUN/Creatinine Ratio 10, Glucose Level 114, Calcium Level 8.4, Corrected Calcium 9.2, Total Bilirubin 0.3, Aspartate Amino Transf (AST/SGO T) 8, Alanine Aminotransferase (ALT/SGPT) 9, Alkaline Phosphatase 79, Total Protein 5.8, Albumin 3.0, White Blood Count 11.3, Red Blood Count 2.89, Hemoglobin 8.4, Hematocrit 27, Mean Corpuscular Volume 92, Mean Corpuscular Hemoglobin 29, Mean Corpuscular Hemoglobin Concent 32, Red Cell Distribution Width 15.3, Platelet Count 387, Mean Platelet Volume 9.1, Immature Granulocyte % (Auto) 2, Neutrophils (%) (Auto) 57, Lymphocytes (%) (Auto) 21, Monocytes (%) (Auto) 10, Eosinophils (%) (Auto) 9, Basophils (%) (Auto) 1, Neutrophils # (Auto) 6.5, Lymphocytes # (Auto) 2.4, Monocytes # (Auto) 1.2, Eosinophils # (Auto) 1.0, Basophils # (Auto) 0.1, Immature Granulocyte # (Auto) 0.2, Phosphorus Level 5.9, Magnesium Level 0.7 02/04/21 15:15: Magnesium Level 1.5 02/04/21 21:24: Stool Occult Blood Immunoassay NEGATIVE 02/04/21 22:14: Sodium Level 132, Potassium Level 4.7, Chloride Level 100, Carbon Dioxide Level 22, Anion Gap 10, Blood Urea Nitrogen 19, Creatinine 1.42, Estimat Glomerular Filtration Rate 36, BUN/Creatinine Ratio 13, Glucose Level 117, Calcium Level 8.3, Phosphorus Level 3.9, Magnesium Level 1.3 02/05/21 04:18: Sodium Level 132, Potassium Level 4.4, Chloride Level 99, Carbon Dioxide Level 23, Anion Gap 10, Blood Urea Nitrogen 16, Creatinine 1.27, Estimat Glomerular Filtration Rate 41, BUN/Creatinine Ratio 13, Glucose Level 109, Calcium Level 8.6, Phosphorus Level 4.1, Magnesium Level 2.4, White Blood Count 8.8, Red Blood Count 2.68, Hemoglobin 7.9, Hematocrit 25, Mean Corpuscular Volume 92, Mean Corpuscular Hemoglobin 30, Mean Corpuscular Hemoglobin Concent 32, Red Cell Distribution Width 15.2, Platelet Count 293, Mean Platelet Volume 8.6, Immature Granulocyte % (Auto) 1, Neutrophils (%) (Auto) 55, Lymphocytes (%) (Auto) 25, Monocytes (%) (Auto) 10, Eosinophils (%) (Auto) 8, Basophils (%) (Auto) 1, Neutrophils # (Auto) 4.8, Lymphocytes # (Auto) 2.2, Monocytes # (Auto) 0.9, Eosinophils # (Auto) 0.7, Basophils # (Auto) 0.0, Immature Granulocyte # (Auto) 0.1 02/06/21 06:05: Sodium Level 132, Potassium Level 4.7, Chloride Level 99, Carbon Dioxide Level 22, Anion Gap 11, Blood Urea Nitrogen 12, Creatinine 0.94, Estimat Glomerular Filtration Rate 58, BUN/Creatinine Ratio 13, Glucose Level 93, Calcium Level 8.9, Magnesium Level 1.4, White Blood Count 8.4, Red Blood Count 2.93, Hemoglobin 8.4, Hematocrit 27, Mean Corpuscular Volume 91, Mean Corpuscular Hemoglobin 29, Mean Corpuscular Hemoglobin Concent 32, Red Cell Distribution Width 15.3, Platelet Count 319, Mean Platelet Volume 8.8, Immature Granulocyte % (Auto) 1, Neutrophils (%) (Auto) 58, Lymphocytes (%) (Auto) 20, Monocytes (%) (Auto) 9, Eosinophils (%) (Auto) 11, Basophils (%) (Auto) 1, Neutrophils # (Auto) 4.9, Lymphocytes # (Auto) 1.7, Monocytes # (Auto) 0.8, Eosinophils # (Auto) 0.9, Basophils # (Auto) 0.1, Immature Granulocyte # (Auto) 0.1, Corrected Calcium 9.8, Total Bilirubin 0.3, Aspartate Amino Transf (AST/SGOT) 11, Alanine Aminotransferase (ALT/SGPT) 8, Alkaline Phosphatase 82, Total Protein 5.8, Albumin 2.9 02/07/21 06:45: White Blood Count 9.5, Red Blood Count 3.00, Hemoglobin 8.9, Hematocrit 28, Mean Corpuscular Volume 92, Mean Corpuscular Hemoglobin 30, Mean Corpuscular Hemoglobin Concent 32, Red Cell Distribution Width 15.1, Platelet Count 310, Mean Platelet Volume 8.7, Immature Granulocyte % (Auto) 1, Neutrophils (%) (Auto) 53, Lymphocytes (%) (Auto) 25, Monocytes (%) (Auto) 9, Eosinophils (%) (Auto) 11, Basophils (%) (Auto) 1, Neutrophils # (Auto) 5.1, Lymphocytes # (Auto) 2.4, Monocytes # (Auto) 0.9, Eosinophils # (Auto) 1.0, Basophils # (Auto) 0.1, Immature Granulocyte # (Auto) 0.1, Sodium Level 131, Potassium Level 4.4, Chloride Level 98, Carbon Dioxide Level 22, Anion Gap 11, Blood Urea Nitrogen 10, Creatinine 0.84, Estimat Glomerular Filtration Rate > 60, BUN/Creatinine Ratio 12, Glucose Level 109, Calcium Level 8.8, Corrected Calcium 9.6, Total Bilirubin 0.2, Aspartate Amino Transf (AST/SGOT) 11, Alanine Aminotransferase (ALT/SGPT) 7, Alkaline Phosphatase 77, Total Protein 6.0, Albumin 3.0 Discharge Home Medications: Active Scripts Active Bethanechol Chloride 50 Mg Tablet 25 Mg PO ACHS Norvasc (Amlodipine Besylate) 5 Mg Tablet 5 Mg PO DAILY Prevalite Packet (Cholestyramine/Aspartame) 4 Gm Powd.pack 4 Gm PO DAILY@1000 Albuterol Sulfate 2.5 Mg/3 Ml Vial.neb 2.5 Mg INH RTTID Multivitamin with Iron Tablet (Multivitamin/Iron/Folic Acid) 1 Each Tablet 1 Each PO DAILY Magnesium (Magnesium Oxide) 400 Mg Tablet 400 Mg PO TID Oxycodone HCl 5 Mg Tablet 5 Mg PO EVERY 3 HOURS PRN Fentanyl Patch 25 MCG (Fentanyl) 1 Each Patch.td72 25 Mcg PO Q72H Xanax (Alprazolam) 0.25 Mg Tablet 0.25 Mg PO Q4H PRN Nicotine Patch (Nicotine) 1 Each Patch.td24 7 Mg TD DAILY Flomax (Tamsulosin HCl) 0.4 Mg Cap 0.4 Mg PO DAILY Docusate Sodium 100 Mg Capsule 100 Mg PO BID Sucralfate 1 Gm Tablet 1 Gm PO QIDACHS Sodium Chloride 1 Gm Tab 1 Gm PO BID Pantoprazole Sodium 40 Mg Tablet.dr 40 Mg PO BID Ondansetron HCl 4 Mg Tablet 4 Mg PO Q6H PRN Miconazole 5 Gm Powder 1 Applic TOP Q12H PRN Metoprolol Tartrate 25 Mg Tablet 25 Mg PO BID DO NOT GIVE BP <80/50 OR >180/110 AND P <50 OR >110 Melatonin 3 Mg Tablet 6 Mg PO HS PRN TAKES 2 (3MG) TABLETS Flonase Allergy Relief (Fluticasone Propionate) 9.9 Ml [place].susp 1 [place] NSEACH DAILY Trelegy Ellipta 100-62.5-25 (Fluticasone/Umeclidin/Vilanter) 1 Each Blst.w.dev 1 Puff IH DAILY Montelukast Sodium 10 Mg Tablet 10 Mg PO HS Cetirizine HCl 10 Mg Tablet 10 Mg PO DAILY Anoro Ellipta 62.5-25 Mcg INH (Umeclidinium Brm/Vilanterol Tr) 1 Each Blst.w.dev 1 Puff IH DAILY Reported Systane 0.3-0.4% Eye Drops (Propylene Glycol/Peg 400) 15 Ml Drops 1 Drop OU Q8H PRN Biotene Moisturizing Mouth (Saliva Stimulant Agents Comb.3) 1 Each [place] 1 Each MM PRN PRN Sore Throat [place] (Phenol) 177 Ml [place] 1 [place] MM Q2H PRN Instructions to patient/family Please see electronic discharge instructions given to patient. Diagnosis/Problems Diagnosis/Problems (1) Acute kidney failure Status: Acute Qualifiers: Qualified Codes: N17.9 - Acute kidney failure, unspecified (2) Hyperkalemia Status: Acute (3) Presbycusis of both ears (4) Ileostomy in place WILFREDO MARTÍNEZ DO Feb 07, 2021 11:13
--- NOTE | 2021-02-07 11:41 | Progress Note ---
MADI HAYWARD MED STUDENT 02/07/21 1141: Progress Note CC: Acute Renal Failure HPI: This is a 75yoWF clinic pt of Dr. Ba with a hx of COPD, HTN, HLD, and adenocarcinoma of transverse colon who has had multiple hospital stays in the last four months due to colon cancer resection complications. She presented to [facility] ED from [facility] in [place] not feeling well, found to have creatinine of 4.2 and potassium of 6.2. Pt was given aggressive fluids overnight and hyperk alemia management. Surgery was consulted and noted high output ileostomy to be causing dehydration and subsequent hyperkalemia. Dr. Lynch started Cholestyramine, encouraged increased fiber intake to slow bowel motility, and also placed a [place] port which pt will eventually need for chemotherapy. Oncology was consulted to follow along with her progress and adjuvant chemotherapy was not indicated at this time due to her condition. Dr. Morgan will meet with patient upon her recovery to discuss next steps regarding resected colon cancer and right pulmonary nodule noted on initial PET CT scan. Ms. Pinto stayed 4 nights and has since returned to baseline with good urinary output and her creatinine now 0.84. She has not been home since early October due to numerous health complications and did not want to be discharged back to [place] [facility] because of quarantine requirement. She is discharged to her home today where she will stay with her sister and close care from home health. Pt will follow with pcp Dr. Ba next Wednesday and arrange to meet with Dr. Morgan shortly after that. GENNA MARTÍNEZ DO 02/08/21 1040: Supervisory-Addendum Brief Verification & Attestation Participated in pt care: history, MDM, physical Personally performed: exam, history, MDM, supervision of care Care discussed with: Medical Student Procedures: n/a Results interpretation: Verified all documentation Verification and Attestation of Medical Student E/M Service A medical student performed and documented this service in my presence. I reviewed and verified all information documented by the medical student and made modifications to such information, when appropriate. I personally performed the physical exam and medical decision making. Genna Martínez, Feb 08, 2021,10:40 MADI HAYWARD MED STUDENT Feb 07, 2021 11:41 GENNA MARTÍNEZ DO Feb 08, 2021 10:40
--- NOTE | 2021-02-07 11:48 | Progress Note ---
Subjective Date Seen by a Provider: Feb 07, 2021 Time Seen by a Provider: 11:00 Subjective/Events-last exam doing well. ambulating well. tolerating diet. no fever/chills. labs improved. Objective Exam Vital Signs Date Time Temp Pulse Resp B/P (MAP) Pulse Ox O2 Delivery O2 Flow Rate FiO2 02/07/21 08:50 93 Nasal Cannula 2.00 02/07/21 08:45 93 Nasal Cannula 1.00 02/07/21 08:44 95 Nasal Cannula 2.00 02/07/21 08:24 98 Nasal Cannula 2.00 02/07/21 08:00 37.1 86 22 123/67 (85) 96 Nasal Cannula 2.00 02/07/21 03:15 36.6 74 20 123/67 (85) 97 Nasal Cannula 2.00 02/06/21 23:41 36.5 79 20 135/65 (88) 97 Nasal Cannula 2.00 02/06/21 21:29 93 Nasal Cannula 1.00 02/06/21 20:50 98 Nasal Cannula 2.00 02/06/21 19:40 36.4 83 20 124/71 (88) 96 Nasal Cannula 2.00 02/06/21 16:13 36.3 76 20 153/68 (96) 96 Nasal Cannula 1.00 02/06/21 15:45 90 1.00 02/06/21 15:37 90 Nasal Cannula 1.00 02/06/21 11:55 36.6 77 18 130/61 (84) 93 Nasal Cannula 1.00 I & O0 02/07/21 07:00 Intake Total 2930 ml Output Total 1628 ml Balance 1302 ml Capillary Refill : Less Than 3 SecondsLess Than 3 Seconds General Appearance: No Apparent Distress HEENT: PERRL/EOMI Neck: Full Range of Motion Respiratory: Chest Non Tender, Wheezing Cardiovascular: Regular Rate, Rhythm Gastrointestinal: normal bowel sounds, non tender, soft Extremity: Normal Capillary Refill Neurologic/Psychiatric: Alert, Oriented x3 Skin: Normal Color Lymphatic: No Adenopathy Results Lab Laboratory Tests 02/07/21 06:45: White Blood Count 9.5, Red Blood Count 3.00L, Hemoglobin 8.9L, Hematocrit 28L, Mean Corpuscular Volume 92, Mean Corpuscular Hemoglobin 30, Mean Corpuscular Hemoglobin Concent 32, Red Cell Distribution Width 15.1H, Platelet Count 310, Mean Platelet Volume 8.7L, Immature Granulocyte % (Auto) 1, Neutrophils (%) (Auto) 53, Lymphocytes (%) (Auto) 25, Monocytes (%) (Auto) 9, Eosinophils (%) (Auto) 11H, Basophils (%) (Auto) 1, Neutrophils # (Auto) 5.1, Lymphocytes # (Auto) 2.4, Monocytes # (Auto) 0.9, Eosinophils # (Auto) 1.0H, Basophils # (Auto) 0.1, Immature Granulocyte # (Auto) 0.1, Sodium Level 131L, Potassium Level 4.4, Chloride Level 98, Carbon Dioxide Level 22, Anion Gap 11, Blood Urea Nitrogen 10, Creatinine 0.84, Estimat Glomerular Filtration Rate > 60, BUN/Creatinine Ratio 12, Glucose Level 109H, Calcium Level 8.8, Corrected Calcium 9.6, Total Bilirubin 0.2, Aspartate Amino Transf (AST/SGOT) 11, Alanine Aminotransferase (ALT/SGPT) 7, Alkaline Phosphatase 77, Total Protein 6.0L, Albumin 3.0L Microbiology 02/03/21 C. difficile [facility] Antigen & Toxins - Final, Complete 02/03/21 MRSA Screen - Final, Complete MRSA not isolated 02/03/21 Urine Culture - Final, Complete NO GROWTH 02/03/21 Blood Culture - Preliminary, Resulted No growth Assessment/Plan Assessment/Plan Assess & Plan/Chief Complaint dehydration, hyperkalemia, renal failure. may use groshong port at anytime. ambulate. encourage liquids. ok for home. f/u with us in office in 2 weeks. continue drain care. MICHAEL XIONG MD Feb 07, 2021 11:48
--- NOTE | 2021-02-07 15:33 | Physician Query Clarification ---
Physician Query-General Query to Physician: The medical record reflects the following clinical scenario: The patient, in the setting of History/Risk factors, Clinical Findings COPD, Debility, numerous recent surgeries/Procedures, with Admission RR 18-20, SaO2 90 -92% on 3L, documentation of weakness and diminished breath sounds Treatment: /breathing RX, Supplemental 02 up to 5L, Pulmonary/Critical Care consult Question: Do you agree with the impression of Acute respiratory failure with hypoxemia per Dr. Cecilia Byrd ? If you agree, please document in Progress Notes or Discharge Summary. 1. Yes; will document Acute respiratory failure with hypoxemia present on admission, now resolved in the Progress Notes 2. No; will continue current documentation in the Progress Notes 3. Other; will document explanation of clinical findings 4. Clinically undetermined; no explanation for clinical findings Please clarify and document your clinical opinion in the Progress Notes and Disc harge Summary including the definitive and/or presumptive diagnosis, (suspected or probable), related to the above clinical findings. Please include clinical findings supporting your diagnosis. In responding to this query, please exercise your independent professional judgment. The purpose of this communication is to more accurately reflect the complexity of your patients condition. The fact that a question is asked does not imply that any particular answer is desired or expected. Please remember a lack of response to the above will prompt a phone page by CDI/coding staff Thank you for timely response to this clarification. Jess Kilgore [phone] PHYSICIAN RESPONSE: Based on the clinical findings in the record, please respond to the query above on this document as an addendum. Physician Response: Physician Response 1 If you have questions please contact: Ethnic Studies Professor: Ext: Thank you for your time and cooperation. Clinical In Service Educator/Ethnic Studies Professor This is a permanent part of the medical record JESS KILGORE Feb 07, 2021 15:33 WILFREDO MARTÍNEZ DO Feb 08, 2021 07:28
== END 2021-02-07 13:15 | disposition home health service (06) | DRG 673 ==
LOC: EDUNIT# 17:15 → ER 17:17 → ICU 19:30 → 4TH 02-05 14:10
PROVIDERS: ADMIT Internal Medicine; ATTEND Internal Medicine
PROC: 0JH60WZ Insertion of Totally Implantable Vascular Access Device into Chest Subcutaneous Tissue and Fascia, Open Approach (ICD-10-PCS; 2021-02-05)
PROC: 02HV33Z Insertion of Infusion Device into Superior Vena Cava, Percutaneous Approach (ICD-10-PCS; principal; 2021-02-05 16:34)
DX: N17.9 Acute kidney failure, unspecified (principal); J96.01 Acute respiratory failure with hypoxia; E87.2 Acidosis; C34.91 Malignant neoplasm of unspecified part of right bronchus or lung; E22.2 Syndrome of inappropriate secretion of antidiuretic hormone; E87.5 Hyperkalemia; I10 Essential (primary) hypertension; E83.39 Other disorders of phosphorus metabolism; I95.9 Hypotension, unspecified; Z93.2 Ileostomy status; E83.42 Hypomagnesemia; E78.00 Pure hypercholesterolemia, unspecified; J44.9 Chronic obstructive pulmonary disease, unspecified; R19.7 Diarrhea, unspecified; D64.9 Anemia, unspecified; E86.0 Dehydration; K59.00 Constipation, unspecified; M19.91 Primary osteoarthritis, unspecified site; M54.9 Dorsalgia, unspecified; H91.13 Presbycusis, bilateral; Z85.038 Personal history of other malignant neoplasm of large intestine; Z97.4 Presence of external hearing-aid; Z88.6 Allergy status to analgesic agent; Z88.0 Allergy status to penicillin; Z88.8 Allergy status to other drugs, medicaments and biological substances
CPT/HCPCS: 36415; 51701; 51702; 71045; 76000; 80048; 80053; 81000; 82274; 82805; 83605; 83735; 84100; 85007; 85025; 85027; 85610; 85730; 87040; 87081; 87088; 87324; 87449; 93005; 94640; 94760; 96361; 96374; 96375

== ENCOUNTER → 2021-02-21 | Outpatient (CLI) | payer MEDICARE ==
[~2021-02-21] MED LIST changes: +AMLO5TAB4 PO; +BETH50TA2 PO; +CATHETER FLUSH 10 ML SYR IV PRN; +CHOL4PAC3 PO; +DAKIN S 0.125% TOP; +HOLD METFORMIN - RECEIVED CONTRAST 20 ML VIAL IV SCH; +IOHEXOL 350 MG/ML 100 ML (OMNIPAQUE 350) VIAL IV ONE; +MAGN400T39 PO; +MULT-1076 PO; +NS 100 ML (IVPB) BAG IV ONE
--- NOTE | 2021-02-21 10:18 | Diagnostic Imaging Report ---
EXAMINATION: CT chest with intravenous contrast. TECHNIQUE: Multiple contiguous axial images were obtained through the chest after the uneventful administration of intravenous contrast. All CT scans use one or more of the following dose optimizing techniques: automated exposure control, MA and/or KvP adjustment based on patient size and exam type or iterative reconstruction. HISTORY: Solitary pulmonary nodule. COMPARISON: None available. FINDINGS: There is no edema or pneumonia. No pleural effusion. No pneumothorax. There is a 10 mm average diameter right lower lobe pulmonary nodule. Lungs are moderately emphysematous. There is no axillary or supraclavicular lymphadenopathy. There is no mediastinal lymphadenopathy. Heart size is normal. There are mild coronary artery calcifications. No pericardial effusion. Aorta is normal in caliber. Limited views of the upper abdomen show midline abdominal wall defect likely related to recent surgery, incompletely imaged. There are no suspicious osseous lesions. IMPRESSION: 1. Indeterminate 10 mm average diameter right lower lobe pulmonary nodule. According to the Fleischner Society guidelines: Recommend CT at 3 months. Dictated by: Dictated on workstation # [id number]
== END ==
LOC: RAD 09:23
PROVIDERS: ATTEND Internal Medicine Hematology & Oncology
DX: R91.1 Solitary pulmonary nodule (principal)
CPT/HCPCS: 71260

== ENCOUNTER → 2021-03-18 | Outpatient (CLI) | payer MEDICARE ==
[~2021-03-18] MED LIST changes: -CATHETER FLUSH 10 ML SYR IV PRN; -HOLD METFORMIN - RECEIVED CONTRAST 20 ML VIAL IV SCH; -IOHEXOL 350 MG/ML 100 ML (OMNIPAQUE 350) VIAL IV ONE; -NS 100 ML (IVPB) BAG IV ONE
--- NOTE | 2021-03-18 14:43 | Diagnostic Imaging Report ---
INDICATION: Malignant neoplasm of the transverse colon with subsequent treatment strategy and restaging. TECHNIQUE: Serum blood glucose level at the time of injection is 113 mg/dL. Patient was administered 11.5 mCi F-18 FDG intravenously in the left antecubital location and PET imaging was performed from the top of the skull to mid thighs. Noncontrast CT was also performed for attenuation correction and anatomic correlation. COMPARISON: Correlation is made with recent CT chest from 02/21/2021 as well as PET/CT study from 09/17/2020. FINDINGS: There is symmetric activity throughout the brain. A low-level uptake is seen within the lymph nodes in the parotid glands bilaterally. No other abnormality in the soft tissues of the neck is identified. No mediastinal or hilar hypermetabolism is identified. The small nodule in the superior segment of the right lower lobe adjacent to the major fissure is again noted and does demonstrate FDG uptake with an SUV max of 4.7. This measures 10 to 11 mm in size, similar to exam from August 2020. No other pulmonary parenchymal areas of hypermetabolism are identified. Abdomen and pelvis demonstrate physiologic activity throughout the GI and tracts. No other suspicious regions of hypermetabolism are identified. IMPRESSION: Hypermetabolic nodule in the superior segment of the right lower lobe. Small metastatic nodule cannot be entirely excluded. No other suspicious abnormality is detected. Dictated by: Dictated on workstation # [id number]
== END ==
LOC: RAD 09:21
PROVIDERS: ATTEND Internal Medicine Hematology & Oncology
DX: C18.4 Malignant neoplasm of transverse colon (principal); R91.1 Solitary pulmonary nodule
CPT/HCPCS: 78815; A9552

== ENCOUNTER 2021-04-29 15:13 | Outpatient (RCR) | payer MEDICARE ==
[2021-02-17 10:35] LABS: BASOPHILS # (AUTO) 0.1 10^3/uL (0.0-0.1); BASOPHILS % (AUTO) 1 % (0-10); EOSINOPHILS # (AUTO) 0.5 10^3/uL (0.0-0.3); EOSINOPHILS % (AUTO) 5 % (0-10); HEMATOCRIT 29 % (35-52); HEMOGLOBIN 9.4 g/dL (11.5-16.0); LYMPHOCYTES # (AUTO) 2.1 10^3/uL (1.0-4.0); LYMPHOCYTES % (AUTO) 23 % (12-44); MEAN CORPUSCULAR HEMOGLOBIN 30 pg (25-34); MEAN CORPUSCULAR HGB CONC 33 g/dL (32-36); MEAN CORPUSCULAR VOLUME 91 fL (80-99); MEAN PLATELET VOLUME 8.7 fL (9.0-12.2); MONOCYTES # (AUTO) 0.7 10^3/uL (0.0-1.0); MONOCYTES % (AUTO) 8 % (0-12); NEUTROPHILS # (AUTO) 5.9 10^3/uL (1.8-7.8); NEUTROPHILS % (AUTO) 63 % (42-75); PLATELET COUNT 270 10^3/uL (130-400); WHITE BLOOD COUNT 9.4 10^3/uL (4.3-11.0)
[2021-02-17 10:52] LABS: ALANINE AMINOTRANSFERASE 15 U/L (0-55); ALBUMIN 3.8 GM/DL (3.2-4.5); ALKALINE PHOSPHATASE 62 U/L (40-136); BILIRUBIN,TOTAL 0.3 MG/DL (0.1-1.0); BUN/CREATININE RATIO 18; CALCIUM 8.9 MG/DL (8.5-10.1); CARBON DIOXIDE 23 MMOL/L (21-32); CHLORIDE 100 MMOL/L (98-107); CREATININE SERUM 0.82 MG/DL (0.60-1.30); GFR ESTIMATED > 60; GLUCOSE 133 MG/DL (70-105); SODIUM 132 MMOL/L (135-145)
[2021-03-11 13:18] LABS: BASOPHILS # (AUTO) 0.1 10^3/uL (0.0-0.1); BASOPHILS % (AUTO) 1 % (0-10); EOSINOPHILS # (AUTO) 0.3 10^3/uL (0.0-0.3); EOSINOPHILS % (AUTO) 4 % (0-10); HEMATOCRIT 31 % (35-52); HEMOGLOBIN 10.3 g/dL (11.5-16.0); LYMPHOCYTES # (AUTO) 2.3 10^3/uL (1.0-4.0); LYMPHOCYTES % (AUTO) 29 % (12-44); MEAN CORPUSCULAR HEMOGLOBIN 31 pg (25-34); MEAN CORPUSCULAR HGB CONC 34 g/dL (32-36); MEAN CORPUSCULAR VOLUME 93 fL (80-99); MEAN PLATELET VOLUME 8.8 fL (9.0-12.2); MONOCYTES # (AUTO) 0.6 10^3/uL (0.0-1.0); MONOCYTES % (AUTO) 8 % (0-12); NEUTROPHILS # (AUTO) 4.4 10^3/uL (1.8-7.8); NEUTROPHILS % (AUTO) 56 % (42-75); PLATELET COUNT 297 10^3/uL (130-400); WHITE BLOOD COUNT 7.9 10^3/uL (4.3-11.0)
[2021-03-11 13:32] LABS: ALBUMIN 4.1 GM/DL (3.2-4.5); BILIRUBIN,TOTAL 0.2 MG/DL (0.1-1.0); CALCIUM 9.3 MG/DL (8.5-10.1); CREATININE SERUM 0.92 MG/DL (0.60-1.30); POTASSIUM 4.9 MMOL/L (3.6-5.0); TOTAL PROTEIN 7.2 GM/DL (6.4-8.2)
[2021-04-09 14:07] LABS: BASOPHILS # (AUTO) 0.1 10^3/uL (0.0-0.1); BASOPHILS % (AUTO) 1 % (0-10); EOSINOPHILS # (AUTO) 0.2 10^3/uL (0.0-0.3); EOSINOPHILS % (AUTO) 2 % (0-10); HEMATOCRIT 32 % (35-52); LYMPHOCYTES # (AUTO) 2.9 10^3/uL (1.0-4.0); LYMPHOCYTES % (AUTO) 28 % (12-44); MEAN CORPUSCULAR HEMOGLOBIN 33 pg (25-34); MEAN CORPUSCULAR HGB CONC 35 g/dL (32-36); MEAN CORPUSCULAR VOLUME 94 fL (80-99); MEAN PLATELET VOLUME 9.2 fL (9.0-12.2); MONOCYTES # (AUTO) 0.9 10^3/uL (0.0-1.0); MONOCYTES % (AUTO) 8 % (0-12); NEUTROPHILS # (AUTO) 6.1 10^3/uL (1.8-7.8); NEUTROPHILS % (AUTO) 60 % (42-75); PLATELET COUNT 273 10^3/uL (130-400); WHITE BLOOD COUNT 10.3 10^3/uL (4.3-11.0)
[2021-04-09 14:33] LABS: ALBUMIN 4.2 GM/DL (3.2-4.5); BILIRUBIN,TOTAL 0.3 MG/DL (0.1-1.0); CALCIUM 9.1 MG/DL (8.5-10.1); CREATININE SERUM 1.2 MG/DL (0.60-1.30); POTASSIUM 4.5 MMOL/L (3.6-5.0); TOTAL PROTEIN 7.6 GM/DL (6.4-8.2)
[2021-04-29 15:26] LABS: BASOPHILS # (AUTO) 0.1 10^3/uL (0.0-0.1); BASOPHILS % (AUTO) 1 % (0-10); EOSINOPHILS # (AUTO) 0.3 10^3/uL (0.0-0.3); EOSINOPHILS % (AUTO) 3 % (0-10); HEMATOCRIT 34 % (35-52); HEMOGLOBIN 11.7 g/dL (11.5-16.0); LYMPHOCYTES # (AUTO) 2.8 10^3/uL (1.0-4.0); LYMPHOCYTES % (AUTO) 29 % (12-44); MEAN CORPUSCULAR HEMOGLOBIN 33 pg (25-34); MEAN CORPUSCULAR HGB CONC 34 g/dL (32-36); MEAN CORPUSCULAR VOLUME 98 fL (80-99); MEAN PLATELET VOLUME 9.3 fL (9.0-12.2); MONOCYTES # (AUTO) 0.9 10^3/uL (0.0-1.0); MONOCYTES % (AUTO) 9 % (0-12); NEUTROPHILS # (AUTO) 5.6 10^3/uL (1.8-7.8); NEUTROPHILS % (AUTO) 58 % (42-75); PLATELET COUNT 268 10^3/uL (130-400); WHITE BLOOD COUNT 9.7 10^3/uL (4.3-11.0)
[2021-04-29 15:44] LABS: CALCIUM 9.5 MG/DL (8.5-10.1); CREATININE SERUM 1.05 MG/DL (0.60-1.30); POTASSIUM 4.5 MMOL/L (3.6-5.0)
[2021-05-11] MEDS ORDERED: OXYC1TAB87 PO ×2 (15:57→16:04)
[2021-05-11] MEDS ORDERED: METH-732 PO ×2 (15:57→16:04)
== END 2021-05-18 | disposition home or self-care (01) ==
LOC: ONC 15:13
PROVIDERS: ATTEND Internal Medicine Hematology & Oncology
DX: R91.1 Solitary pulmonary nodule (principal); R19.09 Other intra-abdominal and pelvic swelling, mass and lump; Z72.0 Tobacco use
CPT/HCPCS: 77412; 77417; 80053; 82378; 85025; G0463; 77290; 77293; 77300; 77301; 77334; 77338; 77370; 77373; 77470; 80048; 84443; 99204; 99213; 99214

== ENCOUNTER 2021-05-11 12:56 | Emergency (ER) | payer MEDICARE ==
[~2021-05-11] VITALS: Ht 157 cm; Wt 72.7 kg
--- NOTE | 2021-05-11 13:46 | ED Back Pain ---
General Chief Complaint: Back Problems Stated Complaint: LOW BACK PAIN Nursing Triage Note: AMB TO ROOM C/O LOW BACK PAIN SINCE WEDNESDAY. HAS LG ABD SURG BECAUSE SHE HAD MASS IN ABD HAS FINISHED RADIATION. Source of Information: Patient Exam Limitations: No Limitations History of Present Illness Date Seen by Provider: May 11, 2021 Time Seen by Provider: 13:41 Initial Comments ER with pain over the right low back for the past few days. No known injury no fever no chills does have a history of colon cancer with colectomy and subsequent colostomy Location: Lumbar Spine Timing/Duration: 4-5 Days Severity: Moderate Pain/Injury Location: Back Associated Symptoms: denies symptoms Allergies and Home Medications Allergies Coded Allergies: Penicillins (Verified Allergy, Unknown, Anaphylaxis, 09/26/20) budesonide (Verified Allergy, Unknown, Nausea, PT USES TRELEGY, 12/20/20) formoterol (Verified Allergy, Unknown, Nausea, 09/26/20) midazolam (Verified Allergy, Unknown, Anaphylaxis, pt has rec Lorazepam & alprazolam in the past, 02/04/21) Has received Lorazepam & alprazolam without issue Home Medications Albuterol Sulfate 2.5 Mg/3 Ml Vial.neb, 2.5 MG INH RTTID Prescribed by: WILFREDO MARTÍNEZ on 02/06/212114 Alprazolam 0.25 Mg Tablet, 0.25 MG PO Q4H PRN for ANXIETY Prescribed by: WILFREDO MARTÍNEZ on 02/06/212115 Amlodipine Besylate 5 Mg Tablet, 5 MG PO DAILY Prescribed by: WILFREDO MARTÍNEZ on 02/06/212114 Bethanechol Chloride 50 Mg Tablet, 25 MG PO ACHS Prescribed by: WILFREDO MARTÍNEZ on 02/06/212114 Cetirizine HCl 10 Mg Tablet, 10 MG PO DAILY Prescribed by: WILFREDO MARTÍNEZ on 02/06/212114 Cholestyramine/Aspartame 4 Gm Powd.pack, 4 GM PO DAILY@1000 Prescribed by: WILFREDO MARTÍNEZ on 02/06/212114 Docusate Sodium 100 Mg Capsule, 100 MG PO BID Prescribed by: WILFREDO MARTÍNEZ on 02/06/212114 Fentanyl 1 Each Patch.td72, 25 MCG PO Q72H Prescribed by: WILFREDO MARTÍNEZ on 02/06/212115 Fluticasone Propionate 9.9 Ml Olean.susp, 1 SPRAY NSEACH DAILY Prescribed by: WILFREDO MARTÍNEZ on 02/06/212114 Fluticasone/Umeclidin/Vilanter 1 Each Blst.w.dev, 1 PUFF IH DAILY Prescribed by: WILFREDO MARTÍNEZ on 02/06/212114 Magnesium Oxide 400 Mg Tablet, 400 MG PO TID Prescribed by: WILFREDO MARTÍNEZ on 02/06/212114 Melatonin 3 Mg Tablet, 6 MG PO HS PRN for INSOMNIA TAKES 2 (3MG) TABLETS Prescribed by: WILFREDO MARTÍNEZ on 02/06/212114 Methocarbamol 750 Mg Tablet, 750 MG PO Q6-8HR Prescribed by: KAYLA DUNCAN on 05/11/211556 Metoprolol Tartrate 25 Mg Tablet, 25 MG PO BID DO NOT GIVE BP <80/50 OR >180/110 AND P <50 OR >110 Prescribed by: WILFREDO MARTÍNEZ on 02/06/212114 Miconazole 5 Gm Powder, 1 APPLIC TOP Q12H PRN for RASH Prescribed by: WILFREDO MARTÍNEZ on 02/06/212114 Montelukast Sodium 10 Mg Tablet, 10 MG PO HS Prescribed by: WILFREDO MARTÍNEZ on 02/06/212114 Multivitamin/Iron/Folic Acid 1 Each Tablet, 1 EACH PO DAILY Prescribed by: WILFREDO MARTÍNEZ on 02/06/212114 Nicotine 1 Each Patch.td24, 7 MG TD DAILY Prescribed by: WILFREDO MARTÍNEZ on 02/06/212114 Ondansetron HCl 4 Mg Tablet, 4 MG PO Q6H PRN for NAUSEA/VOMITING-1ST LINE Prescribed by: WILFREDO MARTÍNEZ on 02/06/212114 Oxycodone HCl 5 Mg Tablet, 5 MG PO EVERY 3 HOURS PRN for PAIN-SEVERE (8-10) Prescribed by: WILFREDO MARTÍNEZ on 02/06/212115 Oxycodone HCl/Acetaminophen 1 Each Tablet, 1 TAB PO Q4H Prescribed by: KAYLA DUNCAN on 05/11/211556 Pantoprazole Sodium 40 Mg Tablet.dr, 40 MG PO BID Prescribed by: WILFREDO MARTÍNEZ on 02/06/212114 Phenol 177 Ml Olean, 1 SPRAY MM Q2H PRN for Throat Irritation, (Reported) Propylene Glycol/Peg 400 15 Ml Drops, 1 DROP OU Q8H PRN for DRY EYES, (Reported) Saliva Stimulant Agents Comb.3 1 Each [place], 1 EACH MM PRN PRN for DRY MOUTH, (Reported) Sodium Chloride 1 Gm Tab, 1 GM PO BID Prescribed by: WILFREDO MARTÍNEZ on 02/06/212114 Sucralfate 1 Gm Tablet, 1 GM PO QIDACHS Prescribed by: WILFREDO MARTÍNEZ on 02/06/212114 Tamsulosin HCl 0.4 Mg Cap, 0.4 MG PO DAILY Prescribed by: WILFREDO MARTÍNEZ on 02/06/212114 Umeclidinium Brm/Vilanterol Tr 1 Each Blst.w.dev, 1 PUFF IH DAILY Prescribed by: WILFREDO MARTÍNEZ on 02/06/212114 Patient Home Medication List Home Medication List Reviewed: Yes Review of Systems Constitutional: see HPI EENTM: see HPI Respiratory: no symptoms reported Cardiovascular: no symptoms reported Genitourinary: no symptoms reported Musculoskeletal: see HPI, back pain Skin: no symptoms reported Psychiatric/Neurological: No Symptoms Reported Past Jbjhcud-Exsbwv-Mzpejd Hx Immunizations Up To Date Tetanus Booster (TDap): Unknown Seasonal Allergies Seasonal Allergies: Yes Past Medical History Surgeries: Yes (CATARACTS; BOWEL SURGERIES--SEE BELOW) Abdominal Respiratory: Yes COPD Currently Using CPAP: No Currently Using BIPAP: No Cardiac: Yes High Cholesterol, Hypertension Neurological: No Genitourinary: No Bladder Infection, Renal Failure Gastrointestinal: Yes (colon cancer) Chronic Constipation Musculoskeletal: Yes Arthritis, Chronic Back Pain Endocrine: No HEENT: Yes (cataracts removed, dentures) Hearing Impairment: Hard of Hearing, Bilateral Hearing Aide Cancer: Yes Colon Did You Recieve Any Treatments: Yes What Type of Treatment Did You: Surgical Intervention Psychosocial: No Integumentary: No Blood Disorders: No Family Medical History PAST SURGICAL HISTORY: -COLONOSCOPY -11/01/20--PT HAD EXTENDED RIGHT HEMICOLECTOMY WITH SUBSEQUENT ILEOCOLONIC TORSION, WITH ILEOSTOMY, MULTIPLE RESECTIONS AND REVISIONS, DEBRIDEMENTS, DRAINAGE OF INTRA-ABDOMINAL ABSCESSES, AND MESH PLACEMENT. Physical Exam Vital Signs Vital Signs - First Documented 05/11/21 13:13 Temp 35.0 Pulse 98 Resp 18 B/P (MAP) 129/90 (103) Pulse Ox 98 O2 Delivery Nasal Cannula O2 Flow Rate 2.00 Capillary Refill : Less Than 3 Seconds Height, Weight, BMI Height: '" Weight: lbs. oz. kg; 29.00 BMI Method: General Appearance: No Apparent Distress, WD/WN, Other (appears uncomfortable) Neck: Full Range of Motion, Normal Inspection Cardiovascular: Regular Rate, Rhythm, Normal Peripheral Pulses Respiratory: No Accessory Muscle Use, No Respiratory Distress Gastrointestinal: Normal Bowel Sounds, Non Tender, Soft Back: Other (tender to palpation right posterior superior iliac crest) Extremity: Normal Capillary Refill, Normal Inspection Neurologic/Psychiatric: Alert, Oriented x3 Skin: Normal Color, Warm/Dry Procedures/Interventions Date of ETT Placement: Nov 15, 2020 Progress/Results/Core Measures Results/Orders Lab Results Laboratory Tests Test 05/11/21 14:23 05/11/21 15:30 Range/Units White Blood Count 10.6 4.3-11.0 10^3/uL Red Blood Count 3.08 L 3.80-5.11 10^6/uL Hemoglobin 10.4 L 11.5-16.0 g/dL Hematocrit 31 L 35-52 % Mean Corpuscular Volume 100 H 80-99 fL Mean Corpuscular Hemoglobin 34 25-34 pg Mean Corpuscular Hemoglobin Concent 34 32-36 g/dL Red Cell Distribution Width 13.0 10.0-14.5 % Platelet Count 222 130-400 10^3/uL Mean Platelet Volume 9.3 9.0-12.2 fL Immature Granulocyte % (Auto) 1 % Neutrophils (%) (Auto) 69 42-75 % Lymphocytes (%) (Auto) 18 12-44 % Monocytes (%) (Auto) 11 0-12 % Eosinophils (%) (Auto) 1 0-10 % Basophils (%) (Auto) 0 0-10 % Neutrophils # (Auto) 7.3 1.8-7.8 X 10^3 Lymphocytes # (Auto) 1.9 1.0-4.0 X 10^3 Monocytes # (Auto) 1.1 H 0.0-1.0 X 10^3 Eosinophils # (Auto) 0.1 0.0-0.3 10^3/uL Basophils # (Auto) 0.0 0.0-0.1 10^3/uL Immature Granulocyte # (Auto) 0.1 0.0-0.1 10^3/uL Sodium Level 139 135-145 MMOL/L Potassium Level 4.3 3.6-5.0 MMOL/L Chloride Level 108 H 98-107 MMOL/L Carbon Dioxide Level 19 L 21-32 MMOL/L Anion Gap 12 5-14 MMOL/L Blood Urea Nitrogen 18 7-18 MG/DL Creatinine 0.94 0.60-1.30 MG/DL Estimat Glomerular Filtration Rate 58 BUN/Creatinine Ratio 19 Glucose Level 123 H 70-105 MG/DL Calcium Level 9.2 8.5-10.1 MG/DL Urine Color YELLOW Urine Clarity CLEAR Urine pH 6.0 5-9 Urine Specific [place] 1.015 L 1.016-1.022 Urine Protein NEGATIVE NEGATIVE Urine Glucose (UA) NEGATIVE NEGATIVE Urine Ketones NEGATIVE NEGATIVE Urine Nitrite NEGATIVE NEGATIVE Urine Bilirubin NEGATIVE NEGATIVE Urine Urobilinogen 0.2 < = 1.0 MG/DL Urine Leukocyte Esterase TRACE H NEGATIVE Urine RBC (Auto) NEGATIVE NEGATIVE Urine RBC NONE /HPF Urine WBC RARE /HPF Urine Squamous Epithelial Cells RARE /HPF Urine Crystals NONE /LPF Urine Bacteria NEGATIVE /HPF Urine Casts NONE /LPF Urine Mucus NEGATIVE /LPF Urine Culture Indicated NO My Orders Orders - KAYLA DUNCAN APRN Cbc With Automated Diff (05/11/21 13:32) Basic Metabolic Panel (05/11/21 13:32) Ct Abdomen/Pelvis Wo (05/11/21 13:32) Oxycodone Immediate Rel Tablet (Oxyir Ta (05/11/21 13:45) Ua Culture If Indicated (05/11/21 14:46) Ketorolac Injection (Toradol Injection) (05/11/21 15:15) Orphenadrine Inj (Ed Only) (Norflex Inje (05/11/21 15:15) Medications Given in ED Current Medications Medications Dose Ordered Sig/Raymond Route Start Time Stop Time Status Last Admin Dose Admin Ketorolac Tromethamine 60 mg ONCE ONCE IM 05/11/21 15:15 05/11/21 15:16 DC 05/11/21 15:15 60 MG Orphenadrine Citrate 60 mg ONCE ONCE IM 05/11/21 15:15 05/11/21 15:16 DC 05/11/21 15:15 60 MG Oxycodone HCl 5 mg ONCE ONCE PO 05/11/21 13:45 05/11/21 13:46 DC 05/11/21 13:45 5 MG Vital Signs/I&O 05/11/21 13:13 Temp 35.0 Pulse 98 Resp 18 B/P (MAP) 129/90 (103) Pulse Ox 98 O2 Delivery Nasal Cannula O2 Flow Rate 2.00 Blood Pressure Mean: 103 Departure Impression Primary Impression: Acute low back pain Disposition: 01 HOME, SELF-CARE Condition: Stable Departure-Patient Inst. Decision time for Depature: 14:49 Referrals: LAWANDA CASAS MD (PCP/Family) Primary Care Physician Patient Instructions: Low Back Pain (DC) Add. Discharge Instructions: 1. Take your oxycodone for pain. This can be constipating so it would be a good idea to increase your water intake and take a stool softener if you take much of the pain medication. All discharge instructions reviewed with patient and/or family. Voiced understanding. Scripts Oxycodone HCl/Acetaminophen (Percocet 5-325 mg Tablet) 1 Each Tablet 1 TAB PO Q4H for PAIN-MODERATE MDD 6 TABS for 7 Days, #14 TAB . Prov: KAYLA DUNCAN APRN 05/11/21 Methocarbamol (Methocarbamol) 750 Mg Tablet 750 MG PO Q6-8HR for Back Pain, #14 TAB . Prov: KAYLA DUNCAN APRN 05/11/21 KAYLA DUNCAN APRN May 11, 2021 13:46
--- NOTE | 2021-05-11 14:28 | Diagnostic Imaging Report ---
PROCEDURE: CT abdomen and pelvis without contrast. TECHNIQUE: Multiple contiguous axial images were obtained through the abdomen and pelvis without the use of intravenous contrast. Auto Exposure Controls were utilized during the CT exam to meet ALARA standards for radiation dose reduction. INDICATION: Right-sided flank pain. COMPARISON: 01/12/2021. FINDINGS: The heart is unremarkable. Right basilar atelectasis is present. Simple appearing cortical cysts are seen in the kidneys bilaterally. A nonobstructing calculus is seen in the mid right kidney measuring 5 mm. No hydronephrosis or obstructing renal calculi. The urinary bladder is mildly distended. No bladder calculi are present. The liver, spleen, pancreas, and adrenal glands have a normal appearance. There is no pathologically enlarged mesenteric or retroperitoneal adenopathy. Mid right abdomen ostomy and mid left abdomen ostomy are again visualized. There is diastases of the rectus abdominis musculature, similar to the prior exam. No evidence of bowel obstruction. Scattered diverticula are seen in the descending and sigmoid colon without evidence of acute diverticulitis. There is no free fluid or free air. No acute osseous abnormalities. Bilateral pars defects are seen at L5 with grade 1 anterolisthesis of L5 on S1. There is calcified aortic and iliac atherosclerotic plaque without aneurysm. There is no free air, loculated collection, or adenopathy in the pelvis. IMPRESSION: 1. No evidence of bowel obstruction. No free fluid or free air. Bilateral mid abdomen ostomies are again seen and appears stable. There is also a stable diastases of the rectus abdominis musculature. 2. Diverticula in the descending and sigmoid colon without evidence of acute diverticulitis 3. Nonobstructing calculus in the mid right kidney. No obstructing calculi or hydronephrosis. 4. Bilateral pars defects at L5 with grade 1 anterolisthesis of L5 on S1. Dictated by: Dictated on workstation # [id number]
[2021-05-11 14:33] LABS: BASOPHILS % (AUTO) 0 % (0-10); EOSINOPHILS # (AUTO) 0.1 10^3/uL (0.0-0.3); EOSINOPHILS % (AUTO) 1 % (0-10); HEMATOCRIT 31 % (35-52); HEMOGLOBIN 10.4 g/dL (11.5-16.0); LYMPHOCYTES # (AUTO) 1.9 X 10^3 (1.0-4.0); LYMPHOCYTES % (AUTO) 18 % (12-44); MEAN CORPUSCULAR HEMOGLOBIN 34 pg (25-34); MEAN CORPUSCULAR HGB CONC 34 g/dL (32-36); MEAN CORPUSCULAR VOLUME 100 fL (80-99); MEAN PLATELET VOLUME 9.3 fL (9.0-12.2); MONOCYTES # (AUTO) 1.1 X 10^3 (0.0-1.0); MONOCYTES % (AUTO) 11 % (0-12); NEUTROPHILS # (AUTO) 7.3 X 10^3 (1.8-7.8); NEUTROPHILS % (AUTO) 69 % (42-75); PLATELET COUNT 222 10^3/uL (130-400); WHITE BLOOD COUNT 10.6 10^3/uL (4.3-11.0)
[2021-05-11 14:53] LABS: POTASSIUM 4.3 MMOL/L (3.6-5.0)
[2021-05-11 14:54] LABS: CALCIUM 9.2 MG/DL (8.5-10.1)
[2021-05-11 14:59] LABS: CREATININE SERUM 0.94 MG/DL (0.60-1.30)
[2021-05-11] MEDS ORDERED: ORPHENADRINE 60 MG/2 ML (NORFLEX) AMP (ED ONLY) IM ONE (15:15)
[2021-05-11] MEDS ORDERED: KETOROLAC 60 MG/2 ML VIAL IM ONE (15:15)
[2021-05-11 15:40] LABS: BILIRUBIN,URINE NEGATIVE (NEGATIVE); CLARITY,URINE CLEAR; COLOR,URINE YELLOW; GLUCOSE, URINE (UA) NEGATIVE (NEGATIVE); KETONES,URINE NEGATIVE (NEGATIVE); LEUKOCYTE ESTERASE ,URINE TRACE (NEGATIVE); NITRITE,URINE NEGATIVE (NEGATIVE); PROTEIN,URINE NEGATIVE (NEGATIVE)
[2021-05-11 15:48] LABS: BACTERIA,URINE NEGATIVE /HPF; SQUAMOUS EPITHELIAL CELL,UR RARE /HPF; WBC,URINE RARE /HPF
[2021-05-11] MEDS ORDERED: OXYC1TAB87 PO ×2 (15:57→16:04)
[2021-05-11] MEDS ORDERED: METH-732 PO ×2 (15:57→16:04)
[2021-05-11 16:12] VITALS: BP 116/56
== END 2021-05-11 16:12 | disposition home or self-care (01) ==
LOC: EDUNIT# 12:56 → ER 12:59
DX: G89.29 Other chronic pain (principal); M54.5 Low back pain; J44.9 Chronic obstructive pulmonary disease, unspecified; I10 Essential (primary) hypertension; Z79.891 Long term (current) use of opiate analgesic; Z79.899 Other long term (current) drug therapy
CPT/HCPCS: 36415; 74176; 80048; 81000; 85025

== ENCOUNTER 2021-05-25 13:38 | Emergency (ER) | payer MEDICARE ==
[~2021-05-25] VITALS: Ht 157 cm; Wt 72.0 kg
[~2021-05-25 13:38] MED LIST changes: +METH-732 PO; +OXYC1TAB87 PO
[2021-05-25 14:09] LABS: BASOPHILS # (AUTO) 0.1 10^3/uL (0.0-0.1); BASOPHILS % (AUTO) 1 % (0-10); EOSINOPHILS # (AUTO) 0.1 10^3/uL (0.0-0.3); EOSINOPHILS % (AUTO) 1 % (0-10); HEMATOCRIT 41 % (35-52); HEMOGLOBIN 14.3 g/dL (11.5-16.0); LYMPHOCYTES % (AUTO) 20 % (12-44); MEAN CORPUSCULAR HEMOGLOBIN 34 pg (25-34); MEAN CORPUSCULAR HGB CONC 35 g/dL (32-36); MEAN CORPUSCULAR VOLUME 97 fL (80-99); MEAN PLATELET VOLUME 9.3 fL (9.0-12.2); MONOCYTES # (AUTO) 0.9 10^3/uL (0.0-1.0); MONOCYTES % (AUTO) 6 % (0-12); NEUTROPHILS % (AUTO) 72 % (42-75); PLATELET COUNT 440 10^3/uL (130-400); WHITE BLOOD COUNT 15.3 10^3/uL (4.3-11.0)
[2021-05-25 14:14] LABS: ALBUMIN 4.7 GM/DL (3.2-4.5); CHLORIDE 101 MMOL/L (98-107); POTASSIUM 5.2 MMOL/L (3.6-5.0); SODIUM 135 MMOL/L (135-145)
[2021-05-25 14:15] LABS: CALCIUM 10.9 MG/DL (8.5-10.1)
[2021-05-25 14:17] LABS: GLUCOSE 142 MG/DL (70-105); TOTAL PROTEIN 8.8 GM/DL (6.4-8.2)
[2021-05-25 14:18] LABS: BILIRUBIN,TOTAL 0.4 MG/DL (0.1-1.0); CARBON DIOXIDE 17 MMOL/L (21-32)
[2021-05-25 14:20] LABS: ALKALINE PHOSPHATASE 125 U/L (40-136); CREATININE SERUM 1.56 MG/DL (0.60-1.30); GFR ESTIMATED 32
[2021-05-25 14:21] LABS: BUN/CREATININE RATIO 25
[2021-05-25 14:23] LABS: ALANINE AMINOTRANSFERASE 22 U/L (0-55)
[2021-05-25 14:40] LABS: NEUTROPHILS % (MANUAL) 66 %
[2021-05-25 14:41] LABS: EOSINOPHILS % (MANUAL) 3 %; LYMPHOCYTES % (MANUAL) 22 %; METAMYELOCYTES % 3 %; MONOCYTES % (MANUAL) 6 %; RBC MORPH NORMAL
--- NOTE | 2021-05-25 14:53 | ED Abdominal Pain ---
General Chief Complaint: Abdominal/GI Problems Stated Complaint: VOMITING/DIARRHEA WEAKNESS Nursing Triage Note: PT TO ED W/ C/O DIARRHEA ONSET LAST NOC AT [facility] UNTIL 0900 THIS AM. Source of Information: Patient Exam Limitations: No Limitations History of Present Illness Date Seen by Provider: May 25, 2021 Allergies and Home Medications Allergies Coded Allergies: Penicillins (Verified Allergy, Unknown, Anaphylaxis, 09/26/20) budesonide (Verified Allergy, Unknown, Nausea, PT USES TRELEGY, 12/20/20) formoterol (Verified Allergy, Unknown, Nausea, 09/26/20) midazolam (Verified Allergy, Unknown, Anaphylaxis, pt has rec Lorazepam & alprazolam in the past, 02/04/21) Has received Lorazepam & alprazolam without issue Home Medications Albuterol Sulfate 2.5 Mg/3 Ml Vial.neb, 2.5 MG INH RTTID Prescribed by: WILFREDO MARTÍNEZ on 02/06/212114 Alprazolam 0.25 Mg Tablet, 0.25 MG PO Q4H PRN for ANXIETY Prescribed by: WILFREDO MARTÍNEZ on 02/06/212115 Amlodipine Besylate 5 Mg Tablet, 5 MG PO DAILY Prescribed by: WILFREDO MARTÍNEZ on 02/06/212114 Bethanechol Chloride 50 Mg Tablet, 25 MG PO ACHS Prescribed by: WILFREDO MARTÍNEZ on 02/06/212114 Cetirizine HCl 10 Mg Tablet, 10 MG PO DAILY Prescribed by: WILFREDO MARTÍNEZ on 02/06/212114 Cholestyramine/Aspartame 4 Gm Powd.pack, 4 GM PO DAILY@1000 Prescribed by: WILFREDO MARTÍNEZ on 02/06/212114 Docusate Sodium 100 Mg Capsule, 100 MG PO BID Prescribed by: WILFREDO MARTÍNEZ on 02/06/212114 Fentanyl 1 Each Patch.td72, 25 MCG PO Q72H Prescribed by: WILFREDO MARTÍNEZ on 02/06/212115 Fluticasone Propionate 9.9 Ml [place].susp, 1 SPRAY NSEACH DAILY Prescribed by: WILFREDO MARTÍNEZ on 02/06/212114 Fluticasone/Umeclidin/Vilanter 1 Each Blst.w.dev, 1 PUFF IH DAILY Prescribed by: WILFREDO MARTÍNEZ on 02/06/212114 Magnesium Oxide 400 Mg Tablet, 400 MG PO TID Prescribed by: WILFREDO MARTÍNEZ on 02/06/212114 Melatonin 3 Mg Tablet, 6 MG PO HS PRN for INSOMNIA TAKES 2 (3MG) TABLETS Prescribed by: WILFREDO MARTÍNEZ on 02/06/212114 Methocarbamol 750 Mg Tablet, 750 MG PO Q6-8HR . Prescribed by: KAYLA DUNCAN on 05/11/211603 Metoprolol Tartrate 25 Mg Tablet, 25 MG PO BID DO NOT GIVE BP <80/50 OR >180/110 AND P <50 OR >110 Prescribed by: WILFREDO MARTÍNEZ on 02/06/212114 Miconazole 5 Gm Powder, 1 APPLIC TOP Q12H PRN for RASH Prescribed by: WILFREDO MARTÍNEZ on 02/06/212114 Montelukast Sodium 10 Mg Tablet, 10 MG PO HS Prescribed by: WILFREDO MARTÍNEZ on 02/06/212114 Multivitamin/Iron/Folic Acid 1 Each Tablet, 1 EACH PO DAILY Prescribed by: WILFREDO MARTÍNEZ on 02/06/212114 Nicotine 1 Each Patch.td24, 7 MG TD DAILY Prescribed by: WILFREDO MARTÍNEZ on 02/06/212114 Ondansetron HCl 4 Mg Tablet, 4 MG PO Q6H PRN for NAUSEA/VOMITING-1ST LINE Prescribed by: WILFREDO MARTÍNEZ on 02/06/212114 Oxycodone HCl 5 Mg Tablet, 5 MG PO EVERY 3 HOURS PRN for PAIN-SEVERE (8-10) Prescribed by: WILFREDO MARTÍNEZ on 02/06/212115 Oxycodone HCl/Acetaminophen 1 Each Tablet, 1 TAB PO Q4H . Prescribed by: KAYLA DUNCAN on 05/11/211603 Pantoprazole Sodium 40 Mg Tablet.dr, 40 MG PO BID Prescribed by: WILFREDO MARTÍNEZ on 02/06/212114 Phenol 177 Ml [place], 1 SPRAY MM Q2H PRN for Throat Irritation, (Reported) Propylene Glycol/Peg 400 15 Ml Drops, 1 DROP OU Q8H PRN for DRY EYES, (Reported) Saliva Stimulant Agents Comb.3 1 Each [place], 1 EACH MM PRN PRN for DRY MOUTH, (Reported) Sodium Chloride 1 Gm Tab, 1 GM PO BID Prescribed by: WILFREDO MARTÍNEZ on 02/06/212114 Sucralfate 1 Gm Tablet, 1 GM PO QIDACHS Prescribed by: WILFREDO MARTÍNEZ on 02/06/212114 Tamsulosin HCl 0.4 Mg Cap, 0.4 MG PO DAILY Prescribed by: WILFREDO MARTÍNEZ on 02/06/212114 Umeclidinium Brm/Vilanterol Tr 1 Each Blst.w.dev, 1 PUFF IH DAILY Prescribed by: WILFREDO MARTÍNEZ on 02/06/212114 Past Jaufgzg-Ldzwev-Adbtww Hx Patient Social History Tobacco Use?: Yes Tobacco type used: Cigarettes Smoking Status: Current Everyday Smoker Use of E-Cig and/or Vaping dev: No Substance use?: No Alcohol Use?: No Pt feels they are or have been: No Immunizations Up To Date Tetanus Booster (TDap): Unknown Seasonal Allergies Seasonal Allergies: Yes Past Medical History Surgery/Hospitalization HX: BOWEL RESECTION, COLON CA Surgeries: Yes (CATARACTS; BOWEL SURGERIES--SEE BELOW) Abdominal Respiratory: Yes COPD Currently Using CPAP: No Currently Using BIPAP: No Cardiac: Yes High Cholesterol, Hypertension Neurological: No Genitourinary: No Bladder Infection, Renal Failure Gastrointestinal: Yes (colon cancer) Chronic Constipation Musculoskeletal: Yes Arthritis, Chronic Back Pain Endocrine: No HEENT: Yes (cataracts removed, dentures) Hearing Impairment: Hard of Hearing, Bilateral Hearing Aide Cancer: Yes Colon Did You Recieve Any Treatments: Yes What Type of Treatment Did You: Surgical Intervention Psychosocial: No Integumentary: No Blood Disorders: No Family Medical History PAST SURGICAL HISTORY: -COLONOSCOPY -11/01/20--PT HAD EXTENDED RIGHT HEMICOLECTOMY WITH SUBSEQUENT ILEOCOLONIC TORSION, WITH ILEOSTOMY, MULTIPLE RESECTIONS AND REVISIONS, DEBRIDEMENTS, DRAINAGE OF INTRA-ABDOMINAL ABSCESSES, AND MESH PLACEMENT. Physical Exam Vital Signs Vital Signs - First Documented 05/25/21 13:50 Temp 36.9 Pulse 100 Resp 28 Pulse Ox 98 O2 Delivery Nasal Cannula O2 Flow Rate 2.00 Capillary Refill : Less Than 3 Seconds Height/Weight/BMI Height: '" Weight: lbs. oz. kg; 29.00 BMI Method: Procedures/Interventions Date of ETT Placement: Nov 15, 2020 Progress/Results/Core Measures Results/Orders Lab Results Laboratory Tests Test 05/25/21 13:56 05/25/21 13:59 05/25/21 15:32 Range/Units White Blood Count 15.3 H 4.3-11.0 10^3/uL Red Blood Count 4.24 3.80-5.11 10^6/uL Hemoglobin 14.3 11.5-16.0 g/dL Hematocrit 41 35-52 % Mean Corpuscular Volume 97 80-99 fL Mean Corpuscular Hemoglobin 34 25-34 pg Mean Corpuscular Hemoglobin Concent 35 32-36 g/dL Red Cell Distribution Width 12.7 10.0-14.5 % Platelet Count 440 H 130-400 10^3/uL Mean Platelet Volume 9.3 9.0-12.2 fL Immature Granulocyte % (Auto) 1 % Neutrophils (%) (Auto) 72 42-75 % Lymphocytes (%) (Auto) 20 12-44 % Monocytes (%) (Auto) 6 0-12 % Eosinophils (%) (Auto) 1 0-10 % Basophils (%) (Auto) 1 0-10 % Neutrophils # (Auto) 11.0 H 1.8-7.8 10^3/uL Lymphocytes # (Auto) 3.0 1.0-4.0 10^3/uL Monocytes # (Auto) 0.9 0.0-1.0 10^3/uL Eosinophils # (Auto) 0.1 0.0-0.3 10^3/uL Basophils # (Auto) 0.1 0.0-0.1 10^3/uL Immature Granulocyte # (Auto) 0.2 H 0.0-0.1 10^3/uL Neutrophils % (Manual) 66 % Lymphocytes % (Manual) 22 % Monocytes % (Manual) 6 % Eosinophils % (Manual) 3 % Metamyelocytes % 3 % Blood Morphology Comment NORMAL Sodium Level 135 135-145 MMOL/L Potassium Level 5.2 H 3.6-5.0 MMOL/L Chloride Level 101 98-107 MMOL/L Carbon Dioxide Level 17 L 21-32 MMOL/L Anion Gap 17 H 5-14 MMOL/L Blood Urea Nitrogen 39 H 7-18 MG/DL Creatinine 1.56 H 0.60-1.30 MG/DL Estimat Glomerular Filtration Rate 32 BUN/Creatinine Ratio 25 Glucose Level 142 H 70-105 MG/DL Calcium Level 10.9 H 8.5-10.1 MG/DL Corrected Calcium 8.5-10.1 MG/DL Total Bilirubin 0.4 0.1-1.0 MG/DL Aspartate Amino Transf (AST/SGOT) 26 5-34 U/L Alanine Aminotransferase (ALT/SGPT) 22 0-55 U/L Alkaline Phosphatase 125 40-136 U/L C-Reactive Protein High Sensitivity 0.92 H 0.00-0.50 MG/DL Total Protein 8.8 H 6.4-8.2 GM/DL Albumin 4.7 H 3.2-4.5 GM/DL Procalcitonin 0.10 H <0.10 NG/ML Influenza Type A (RT-PCR) Not Detected Not Detecte Influenza Type B (RT-PCR) Not Detected Not Detecte SARS-CoV-2 RNA (RT-PCR) Not Detected Not Detecte Urine Color YELLOW Urine Clarity SL CLOUDY Urine pH 5.0 5-9 Urine Specific [place] 1.020 1.016-1.022 Urine Protein NEGATIVE NEGATIVE Urine Glucose (UA) NEGATIVE NEGATIVE Urine Ketones NEGATIVE NEGATIVE Urine Nitrite NEGATIVE NEGATIVE Urine Bilirubin NEGATIVE NEGATIVE Urine Urobilinogen 0.2 < = 1.0 MG/DL Urine Leukocyte Esterase 1+ H NEGATIVE Urine RBC (Auto) NEGATIVE NEGATIVE Urine RBC RARE /HPF Urine WBC 5-10 H /HPF Urine Crystals PRESENT H /LPF Urine Amorphous Sediment FEW CHERI URATES H /LPF Urine Bacteria TRACE /HPF Urine Casts NONE /LPF Urine Mucus NEGATIVE /LPF Urine Culture Indicated YES My Orders Orders - GILBERTO GARCIA WARP HAULER Covid 19 Inhouse Test (05/25/21 13:45) Influenza A And B By Pcr (05/25/21 13:45) Cbc With Automated Diff (05/25/21 14:04) Comprehensive Metabolic Panel (05/25/21 14:04) Hs C Reactive Protein (05/25/21 14:04) Manual Differential (05/25/21 13:56) Chest 1 View, Ap/Pa Only (05/25/21 14:35) Procalcitonin (Pct) (05/25/21 14:35) Ua Culture If Indicated (05/25/21 14:35) Ct Abdomen/Pelvis Wo (05/25/21 14:35) Ns Iv 1000 Ml (Sodium Chloride 0.9%) (05/25/21 15:15) Urine Culture (05/25/21 15:32) General/Regular (05/25/21 Dinner) Medications Given in ED Current Medications Medications Dose Ordered Sig/Raymond Route Start Time Stop Time Status Last Admin Dose Admin Sodium Chloride 1,000 ml @ 999 mls/hr Q1H ONCE IV 05/25/21 15:15 05/25/21 16:15 DC 05/25/21 15:58 999 MLS/HR Vital Signs/I&O 05/25/21 13:50 Temp 36.9 Pulse 100 Resp 28 B/P (MAP) Pulse Ox 98 O2 Delivery Nasal Cannula O2 Flow Rate 2.00 Departure Impression Primary Impression: Gastroenteritis Disposition: HOME, SELF-CARE Condition: Improved Departure-Patient Inst. Decision time for Depature: 16:51 Referrals: KARLENE BA MD (PCP/Family) Primary Care Physician Patient Instructions: [id number] Add. Discharge Instructions: Plan: 1. Continue clear liquids today and advance diet slowly as tolerated. (Jello, Broth, Water). Drink plenty of fluids. 2. May take Zofran every 4 hours as needed for nausea/vomiting. 3. Have close follow up with Dr. Ba next week to have your renal function rechecked. 4. Keep appointment with Dr. Gomez at wound clinic on Wednesday. 5. Return to ER for any new, concerning, or worsening symptoms. All discharge instructions reviewed with patient and/or family. Voiced under standing. Scripts Ondansetron (Ondansetron Odt) 4 Mg Tab.rapdis 4 MG PO Q6H PRN for NAUSEA-1ST LINE, #30 TAB 0 Refills Prov: GILBERTO GARCIA WARP HAULER 05/25/21 GILBERTO GARCIA WARP HAULER May 25, 2021 14:53
[2021-05-25] MEDS ORDERED: NS IV 1000 ML 1,000 ML IV ONE (15:15)
--- NOTE | 2021-05-25 15:28 | Diagnostic Imaging Report ---
EXAMINATION: Chest 1 view. HISTORY: Shortness of breath. COMPARISON: 02/05/2021. FINDINGS: There is mild left base atelectasis. No pleural effusion or pneumothorax. Heart size is normal. There is left subclavian port. IMPRESSION: Mild left base atelectasis. Dictated by: Dictated on workstation # [id number]
--- NOTE | 2021-05-25 15:45 | Diagnostic Imaging Report ---
PROCEDURE: CT abdomen and pelvis without contrast. TECHNIQUE: Multiple contiguous axial images were obtained through the abdomen and pelvis without the use of intravenous contrast. Auto Exposure Controls were utilized during the CT exam to meet ALARA standards for radiation dose reduction. INDICATION: Shortness of air with abdominal pain, nausea and vomiting. FINDINGS: The lung bases demonstrate some minimal infiltrate or atelectasis in the lingula as well as the right lower lobe. The liver is unremarkable. Gallbladder is unremarkable. Pancreas and spleen are unremarkable. No adrenal mass is detected. Kidneys contain cortical low-attenuation lesions suggestive of cysts. There is a tiny nonobstructing calculus in the right kidney. Aorta is nonaneurysmal. Patient has right and left abdominal ostomies. There is also diastasis of the rectus musculature. There is diverticulosis of the sigmoid but no evidence of acute diverticulitis. The uterus and bladder are unremarkable. There is no free fluid or fluid collection. IMPRESSION: Overall stable noncontrast CT of the abdomen and pelvis when compared with the examination of 05/11/2021. No acute feature is detected. Dictated by: Dictated on workstation # [id number]
[2021-05-25 15:49] LABS: BILIRUBIN,URINE NEGATIVE (NEGATIVE); CLARITY,URINE SL CLOUDY; COLOR,URINE YELLOW; GLUCOSE, URINE (UA) NEGATIVE (NEGATIVE); KETONES,URINE NEGATIVE (NEGATIVE); LEUKOCYTE ESTERASE ,URINE 1+ (NEGATIVE); NITRITE,URINE NEGATIVE (NEGATIVE); PROTEIN,URINE NEGATIVE (NEGATIVE)
[2021-05-25 16:03] LABS: RBC,URINE RARE /HPF
[2021-05-25 16:04] LABS: AMORPHOUS SEDIMENT,UR FEW AMOR URATES /LPF; BACTERIA,URINE TRACE /HPF
[2021-05-25] MEDS ORDERED: ONDA4TAB11 PO (16:56)
[2021-05-25 18:00] VITALS: BP 115/49
== END 2021-05-25 18:00 | disposition home or self-care (01) ==
LOC: EDUNIT# 13:38 → ER 13:42
DX: K52.9 Noninfective gastroenteritis and colitis, unspecified (principal); J44.9 Chronic obstructive pulmonary disease, unspecified; I10 Essential (primary) hypertension; G89.29 Other chronic pain; M54.9 Dorsalgia, unspecified; F17.210 Nicotine dependence, cigarettes, uncomplicated; Z20.822 Contact with and (suspected) exposure to COVID-19; Z79.891 Long term (current) use of opiate analgesic; Z79.899 Other long term (current) drug therapy
CPT/HCPCS: 36415; 71045; 74176; 80053; 81000; 84145; 85007; 85027; 86141; 87088; 87636

== ENCOUNTER → 2021-07-24 | Outpatient (CLI) | payer MEDICARE ==
[~2021-07-24] MED LIST changes: +CATHETER FLUSH 10 ML SYR IV PRN; -DCS100C PO; +DOCU-239 PO; +HOLD METFORMIN - RECEIVED CONTRAST 20 ML VIAL IV SCH; +IOHEXOL 350 MG/ML 100 ML (OMNIPAQUE 350) VIAL IV ONE; +NS 100 ML (IVPB) BAG IV ONE
--- NOTE | 2021-07-24 12:34 | Diagnostic Imaging Report ---
EXAMINATION: CT chest with intravenous contrast. TECHNIQUE: Multiple contiguous axial images were obtained through the chest after the uneventful administration of intravenous contrast. All CT scans use one or more of the following dose optimizing techniques: automated exposure control, MA and/or KvP adjustment based on patient size and exam type or iterative reconstruction. HISTORY: Chronic kidney disease, lung nodules COMPARISON: 02/21/2021 FINDINGS: There is no edema or pneumonia. No pleural effusion. No pneumothorax. The right lower lobe nodule is decreased in size, is now 5 mm in average diameter. There is severe emphysema. No new nodules are seen There is no axillary or supraclavicular lymphadenopathy. There is no mediastinal lymphadenopathy. Heart size is normal. There are mild coronary artery calcifications. No pericardial effusion. Aorta is normal in caliber. Limited views of the upper abdomen show cysts in the kidneys There are no suspicious osseus lesions. IMPRESSION: 1. Right lower lobe pulmonary nodule is decreased in size and likely represents an inflammatory or an infectious process that is resolving. Dictated by: Dictated on workstation # [id number]
== END ==
LOC: RAD 11:05
PROVIDERS: ATTEND Nurse Practitioner Adult Health
DX: R91.1 Solitary pulmonary nodule (principal)
CPT/HCPCS: 71260

== ENCOUNTER 2021-07-28 10:29 | Outpatient (RCR) | payer MEDICARE ==
[2021-05-29 10:35] LABS: BASOPHILS # (AUTO) 0.1 10^3/uL (0.0-0.1); BASOPHILS % (AUTO) 1 % (0-10); EOSINOPHILS # (AUTO) 0.2 10^3/uL (0.0-0.3); EOSINOPHILS % (AUTO) 2 % (0-10); HEMATOCRIT 37 % (35-52); HEMOGLOBIN 12.7 g/dL (11.5-16.0); LYMPHOCYTES # (AUTO) 2.7 10^3/uL (1.0-4.0); LYMPHOCYTES % (AUTO) 30 % (12-44); MEAN CORPUSCULAR HEMOGLOBIN 34 pg (25-34); MEAN CORPUSCULAR HGB CONC 35 g/dL (32-36); MEAN CORPUSCULAR VOLUME 97 fL (80-99); MEAN PLATELET VOLUME 9.1 fL (9.0-12.2); MONOCYTES # (AUTO) 0.7 10^3/uL (0.0-1.0); MONOCYTES % (AUTO) 8 % (0-12); NEUTROPHILS # (AUTO) 5.4 10^3/uL (1.8-7.8); NEUTROPHILS % (AUTO) 59 % (42-75); PLATELET COUNT 292 10^3/uL (130-400); WHITE BLOOD COUNT 9.1 10^3/uL (4.3-11.0)
[2021-05-29 11:06] LABS: ALBUMIN 4.1 GM/DL (3.2-4.5); BILIRUBIN,TOTAL 0.4 MG/DL (0.1-1.0); CALCIUM 10.1 MG/DL (8.5-10.1); CREATININE SERUM 0.97 MG/DL (0.60-1.30); POTASSIUM 4.1 MMOL/L (3.6-5.0); TOTAL PROTEIN 7.3 GM/DL (6.4-8.2)
[2021-07-24 10:50] LABS: BASOPHILS # (AUTO) 0.1 10^3/uL (0.0-0.1); BASOPHILS % (AUTO) 1 % (0-10); EOSINOPHILS # (AUTO) 0.4 10^3/uL (0.0-0.3); EOSINOPHILS % (AUTO) 5 % (0-10); HEMATOCRIT 37 % (35-52); HEMOGLOBIN 12.9 g/dL (11.5-16.0); LYMPHOCYTES # (AUTO) 2.1 10^3/uL (1.0-4.0); LYMPHOCYTES % (AUTO) 23 % (12-44); MEAN CORPUSCULAR HEMOGLOBIN 33 pg (25-34); MEAN CORPUSCULAR HGB CONC 35 g/dL (32-36); MEAN CORPUSCULAR VOLUME 96 fL (80-99); MEAN PLATELET VOLUME 9.1 fL (9.0-12.2); MONOCYTES # (AUTO) 0.7 10^3/uL (0.0-1.0); MONOCYTES % (AUTO) 8 % (0-12); NEUTROPHILS # (AUTO) 5.7 10^3/uL (1.8-7.8); NEUTROPHILS % (AUTO) 63 % (42-75); PLATELET COUNT 261 10^3/uL (130-400)
[2021-07-24 11:10] LABS: ALBUMIN 4.3 GM/DL (3.2-4.5); BILIRUBIN,TOTAL 0.4 MG/DL (0.1-1.0); CREATININE SERUM 0.96 MG/DL (0.60-1.30); POTASSIUM 4.1 MMOL/L (3.6-5.0); TOTAL PROTEIN 7.4 GM/DL (6.4-8.2)
[~2021-07-28 10:29] MED LIST changes: -CATHETER FLUSH 10 ML SYR IV PRN; -HOLD METFORMIN - RECEIVED CONTRAST 20 ML VIAL IV SCH; -IOHEXOL 350 MG/ML 100 ML (OMNIPAQUE 350) VIAL IV ONE; -NS 100 ML (IVPB) BAG IV ONE
[2021-08-11] MEDS ORDERED: NF-NACL1GT PO (15:31)
[2021-08-11] MEDS ORDERED: ASCO-262 PO (15:31)
[2021-08-11] MEDS ORDERED: DOCU100T7 PO (15:31)
[2021-08-11] MEDS ORDERED: PANT40TA52 PO (15:31)
[2021-08-11] MEDS ORDERED: METO-333 PO (15:31)
[2021-08-11] MEDS ORDERED: FLUT1BLS3 IH (15:31)
[2021-08-11] MEDS ORDERED: MULT-1076 PO (15:31)
[2021-08-11] MEDS ORDERED: AMLO-250 PO (15:31)
[2021-08-12] MEDS ORDERED: METO-333 PO (10:35)
== END 2021-08-27 | disposition home or self-care (01) ==
LOC: ONC 10:29
PROVIDERS: ATTEND Internal Medicine Hematology & Oncology
DX: C18.4 Malignant neoplasm of transverse colon (principal); R91.1 Solitary pulmonary nodule; R19.09 Other intra-abdominal and pelvic swelling, mass and lump; Z72.0 Tobacco use; Z90.89 Acquired absence of other organs
CPT/HCPCS: 80053; 82378; 85025; G0463 ×2; 99213

== ENCOUNTER 2021-08-11 11:22 | Observation (INO) | payer MEDICARE ==
[~2021-08-11] VITALS: Ht 157.5 cm; Wt 74.4 kg
[2021-08-11] MEDS ORDERED: D5 NS 1000 ML IV SOLUTION 1,000 ML IV ONE (11:45)
[2021-08-11 11:56] LABS: BASOPHILS # (AUTO) 0.1 10^3/uL (0.0-0.1); BASOPHILS % (AUTO) 1 % (0-10); EOSINOPHILS # (AUTO) 0.2 10^3/uL (0.0-0.3); EOSINOPHILS % (AUTO) 2 % (0-10); HEMATOCRIT 41 % (35-52); HEMOGLOBIN 14.5 g/dL (11.5-16.0); LYMPHOCYTES # (AUTO) 2.6 10^3/uL (1.0-4.0); LYMPHOCYTES % (AUTO) 24 % (12-44); MEAN CORPUSCULAR HEMOGLOBIN 34 pg (25-34); MEAN CORPUSCULAR HGB CONC 36 g/dL (32-36); MEAN CORPUSCULAR VOLUME 95 fL (80-99); MEAN PLATELET VOLUME 9.6 fL (9.0-12.2); MONOCYTES # (AUTO) 0.8 10^3/uL (0.0-1.0); MONOCYTES % (AUTO) 8 % (0-12); NEUTROPHILS # (AUTO) 6.9 10^3/uL (1.8-7.8); NEUTROPHILS % (AUTO) 64 % (42-75); PLATELET COUNT 285 10^3/uL (130-400); WHITE BLOOD COUNT 10.6 10^3/uL (4.3-11.0)
[2021-08-11 12:08] LABS: POTASSIUM 4.5 MMOL/L (3.6-5.0)
[2021-08-11 12:10] LABS: CALCIUM 10.4 MG/DL (8.5-10.1)
[2021-08-11 12:14] LABS: CREATININE SERUM 1.41 MG/DL (0.60-1.30)
[2021-08-11 12:16] LABS: MAGNESIUM 1.2 MG/DL (1.6-2.4)
[2021-08-11] MEDS ORDERED: MAGNESIUM 2 GM/50 ML IVPB 50 ML IV ONE (12:30)
--- NOTE | 2021-08-11 12:44 | ED GI ---
General Chief Complaint: Abdominal/GI Problems Stated Complaint: DIARRHEA Nursing Triage Note: PT TO RM 9 VIA WC W REPORTS OF DIARRHEA AND WEAKNESS SX WEDNESDAY WHEN SHE GOT A FLU SHOT. PT WEARS 2L O2 NC AT ALL TIMES D/T COPD. PT A&OX4. Source of Information: Patient Exam Limitations: No Limitations History of Present Illness Date Seen by Provider: Aug 11, 2021 Time Seen by Provider: 11:32 Initial Comments 76-year-old female with past medical history of colon cancer now with ileostomy and colostomy coming in due to diarrhea that is nonbloody. Got a flu shot on Wednesday and has had liquid diarrhea in her colostomy since then which is unusual for her. Has tried taking multiple antidiarrheal pills which have slowed down just minimally. Still is liquid. She feels weak and is having difficulty standing. Tolerating p.o. but having some difficulty keeping up with the outflow. Denies any fever, chest pain, shortness of breath, significant abdominal pain, nausea, vomiting, focal weakness or numbness, or any other concerns. Allergies and Home Medications Allergies Coded Allergies: Penicillins (Verified Allergy, Unknown, Anaphylaxis, 09/26/20) budesonide (Verified Allergy, Unknown, Nausea, PT USES TRELEGY, 12/20/20) formoterol (Verified Allergy, Unknown, Nausea, 09/26/20) midazolam (Verified Allergy, Unknown, Anaphylaxis, pt has rec Lorazepam & alprazolam in the past, 02/04/21) Has received Lorazepam & alprazolam without issue Patient Home Medication List Home Medication List Reviewed: Yes Albuterol Sulfate (Albuterol Sulfate) 2.5 Mg/3 Ml Vial.neb, 2.5 MG INH RTTID Prescribed by: WILFREDO MARTÍNEZ on 02/06/212114 Alprazolam (Xanax) 0.25 Mg Tablet, 0.25 MG PO Q4H PRN for ANXIETY Prescribed by: WILFREDO MARTÍNEZ on 02/06/212115 Amlodipine Besylate (Norvasc) 5 Mg Tablet, 5 MG PO DAILY Prescribed by: WILFREDO MARTÍNEZ on 02/06/212114 Bethanechol Chloride (Bethanechol Chloride) 50 Mg Tablet, 25 MG PO ACHS Prescribed by: WILFREDO MARTÍNEZ on 02/06/212114 Cetirizine HCl (Cetirizine HCl) 10 Mg Tablet, 10 MG PO DAILY Prescribed by: WILFREDO MARTÍNEZ on 02/06/212114 Cholestyramine/Aspartame (Prevalite Packet) 4 Gm Powd.pack, 4 GM PO DAILY@1000 Prescribed by: WILFREDO MARTÍNEZ on 02/06/212114 Docusate Sodium (Docusate Sodium) 100 Mg Capsule, 100 MG PO BID Prescribed by: WILFREDO MARTÍNEZ on 02/06/212114 Fentanyl (Fentanyl Patch 25 MCG) 1 Each Patch.td72, 25 MCG PO Q72H Prescribed by: WILFREDO MARTÍNEZ on 02/06/212115 Fluticasone Propionate (Flonase Allergy Relief) 9.9 Ml Mills.susp, 1 SPRAY NSEACH DAILY Prescribed by: WILFREDO MARTÍNEZ on 02/06/212114 Fluticasone/Umeclidin/Vilanter (Trelegy Ellipta 100-62.5-25) 1 Each Blst.w.dev, 1 PUFF IH DAILY Prescribed by: WILFREDO MARTÍNEZ on 02/06/212114 Magnesium Oxide (Magnesium) 400 Mg Tablet, 400 MG PO TID Prescribed by: WILFREDO MARTÍNEZ on 02/06/212114 Melatonin (Melatonin) 3 Mg Tablet, 6 MG PO HS PRN for INSOMNIA Prescribed by: WILFREDO MARTÍNEZ on 02/06/212114 Methocarbamol (Methocarbamol) 750 Mg Tablet, 750 MG PO Q6-8HR Prescribed by: KAYLA DUNCAN on 05/11/21 1604 Metoprolol Tartrate (Metoprolol Tartrate) 25 Mg Tablet, 25 MG PO BID Prescribed by: WILFREDO MARTÍNEZ on 02/06/212114 Miconazole (Miconazole) 5 Gm Powder, 1 APPLIC TOP Q12H PRN for RASH Prescribed by: WILFREDO MARTÍNEZ on 02/06/212114 Montelukast Sodium (Montelukast Sodium) 10 Mg Tablet, 10 MG PO HS Prescribed by: WILFREDO MARTÍNEZ on 02/06/212114 Multivitamin/Iron/Folic Acid (Multivitamin with Iron Tablet) 1 Each Tablet, 1 EACH PO DAILY Prescribed by: WILFREDO MARTÍNEZ on 02/06/212114 Nicotine (Nicotine Patch) 1 Each Patch.td24, 7 MG TD DAILY Prescribed by: WILFREDO MARTÍNEZ on 02/06/212114 Ondansetron (Ondansetron Odt) 4 Mg Tab.rapdis, 4 MG PO Q6H PRN for NAUSEA-1ST LINE Prescribed by: GILBERTO GARCIA on 05/25/211655 Ondansetron HCl (Ondansetron HCl) 4 Mg Tablet, 4 MG PO Q6H PRN for NAUSEA/VOMITING-1ST LINE Prescribed by: WILFREDO MARTÍNEZ on 02/06/212114 Oxycodone HCl (Oxycodone HCl) 5 Mg Tablet, 5 MG PO EVERY 3 HOURS PRN for PAIN- SEVERE (8-10) Prescribed by: WILFREDO MARTÍNEZ on 02/06/212115 Oxycodone HCl/Acetaminophen (Percocet 5-325 mg Tablet) 1 Each Tablet, 1 TAB PO Q4H Prescribed by: KAYLA DUNCAN on 05/11/21 160 Pantoprazole Sodium (Pantoprazole Sodium) 40 Mg Tablet.dr, 40 MG PO BID Prescribed by: WILFREDO MARTÍNEZ on 02/06/212114 Phenol (Sore Throat Mills) 177 Ml Mills, 1 SPRAY MM Q2H PRN for Throat Irritation, (Reported) Entered as Reported by: OMA WILSON on 01/13/21 09 Propylene Glycol/Peg 400 (Systane 0.3-0.4% Eye Drops) 15 Ml Drops, 1 DROP OU Q8H PRN for DRY EYES, (Reported) Entered as Reported by: OMA WILSON on 01/13/21919 Saliva Stimulant Agents Comb.3 (Biotene Moisturizing Mouth) 1 Each Mills, 1 EACH MM PRN PRN for DRY MOUTH, (Reported) Entered as Reported by: OMA WILSON on 01/13/21919 Sodium Chloride (Sodium Chloride) 1 Gm Tab, 1 GM PO BID Prescribed by: WILFREDO MARTÍNEZ on 02/06/212114 Sucralfate (Sucralfate) 1 Gm Tablet, 1 GM PO QIDACHS Prescribed by: WILFREDO MARTÍNEZ on 02/06/212114 Tamsulosin HCl (Flomax) 0.4 Mg Cap, 0.4 MG PO DAILY Prescribed by: WILFREDO MARTÍNEZ on 02/06/212114 Umeclidinium Brm/Vilanterol Tr (Anoro Ellipta 62.5-25 Mcg INH) 1 Each Blst.w.dev, 1 PUFF IH DAILY Prescribed by: WILFREDO MARTÍNEZ on 02/06/212114 Review of Systems Review of Systems Constitutional: No chills, No fever EENTM: No Blurred Vision Respiratory: Denies Cough Cardiovascular: Denies Chest Pain Gastrointestinal: Denies Abdominal Pain; Diarrhea; Denies Nausea Genitourinary: Denies Burning Musculoskeletal: no symptoms reported Skin: no symptoms reported Psychiatric/Neurological: No Symptoms Reported Endocrine: No Symptoms Reported Hematologic/Lymphatic: No Symptoms Reported All Other Systems Reviewed Negative Unless Noted: Yes Past Xorcqqd-Bxagjg-Uunfyu Hx Patient Social History Tobacco Use?: Yes Tobacco type used: Cigarettes Smoking Status: Current Everyday Smoker Use of E-Cig and/or Vaping dev: No Substance use?: No Alcohol Use?: No Immunizations Up To Date Tetanus Booster (TDap): Unknown Seasonal Allergies Seasonal Allergies: Yes Past Medical History Surgery/Hospitalization HX: BOWEL RESECTION, COLON CA Surgeries: Yes (CATARACTS; BOWEL SURGERIES--SEE BELOW) Abdominal Respiratory: Yes COPD Currently Using CPAP: No Currently Using BIPAP: No Cardiac: Yes High Cholesterol, Hypertension Neurological: No Genitourinary: No Bladder Infection, Renal Failure Gastrointestinal: Yes (colon cancer) Chronic Constipation Musculoskeletal: Yes Arthritis, Chronic Back Pain Endocrine: No HEENT: Yes (cataracts removed, dentures) Hearing Impairment: Hard of Hearing, Bilateral Hearing Aide Cancer: Yes Colon Did You Recieve Any Treatments: Yes What Type of Treatment Did You: Surgical Intervention Psychosocial: No Integumentary: No Blood Disorders: No Family Medical History PAST SURGICAL HISTORY: -COLONOSCOPY -11/01/20--PT HAD EXTENDED RIGHT HEMICOLECTOMY WITH SUBSEQUENT ILEOCOLONIC TORSION, WITH ILEOSTOMY, MULTIPLE RESECTIONS AND REVISIONS, DEBRIDEMENTS, DRAINAGE OF INTRA-ABDOMINAL ABSCESSES, AND MESH PLACEMENT. Physical Exam Vital Signs Vital Signs - First Documented 08/11/21 11:30 Temp 36.7 Pulse 92 Resp 26 B/P (MAP) 127/79 (95) Pulse Ox 99 O2 Delivery Nasal Cannula O2 Flow Rate 2.00 Capillary Refill : Less Than 3 Seconds Height/Weight/BMI Height: '" Weight: lbs. oz. kg; 29.00 BMI Method: General Appearance: WD/WN, no apparent distress HEENT: PERRL/EOMI, normal ENT inspection, pharynx normal Neck: non-tender, full range of motion, supple, normal inspection Respiratory: chest non-tender, lungs clear, normal breath sounds, no respiratory distress, no accessory muscle use Cardiovascular: regular rate, rhythm, no edema, no murmur Gastrointestinal: normal bowel sounds, non tender, soft; No guarding, No re bound; other (Ileostomy bag with brown liquid stool) Extremities: normal range of motion, non-tender, normal inspection, no pedal edema, no calf tenderness, normal capillary refill Back: normal inspection Neurologic/Psychiatric: no motor/sensory deficits, alert, normal mood/affect Skin: normal color, warm/dry Lymphatic: no adenopathy Procedures/Interventions Date of ETT Placement: Nov 15, 2020 Progress/Results/Core Measures Results/Orders Lab Results Laboratory Tests Test 08/11/21 11:49 Range/Units White Blood Count 10.6 4.3-11.0 10^3/uL Red Blood Count 4.31 3.80-5.11 10^6/uL Hemoglobin 14.5 11.5-16.0 g/dL Hematocrit 41 35-52 % Mean Corpuscular Volume 95 80-99 fL Mean Corpuscular Hemoglobin 34 25-34 pg Mean Corpuscular Hemoglobin Concent 36 32-36 g/dL Red Cell Distribution Width 11.9 10.0-14.5 % Platelet Count 285 130-400 10^3/uL Mean Platelet Volume 9.6 9.0-12.2 fL Immature Granulocyte % (Auto) 1 % Neutrophils (%) (Auto) 64 42-75 % Lymphocytes (%) (Auto) 24 12-44 % Monocytes (%) (Auto) 8 0-12 % Eosinophils (%) (Auto) 2 0-10 % Basophils (%) (Auto) 1 0-10 % Neutrophils # (Auto) 6.9 1.8-7.8 10^3/uL Lymphocytes # (Auto) 2.6 1.0-4.0 10^3/uL Monocytes # (Auto) 0.8 0.0-1.0 10^3/uL Eosinophils # (Auto) 0.2 0.0-0.3 10^3/uL Basophils # (Auto) 0.1 0.0-0.1 10^3/uL Immature Granulocyte # (Auto) 0.1 0.0-0.1 10^3/uL Sodium Level 128 L 135-145 MMOL/L Potassium Level 4.5 3.6-5.0 MMOL/L Chloride Level 101 98-107 MMOL/L Carbon Dioxide Level 15 L 21-32 MMOL/L Anion Gap 12 5-14 MMOL/L Blood Urea Nitrogen 40 H 7-18 MG/DL Creatinine 1.41 H 0.60-1.30 MG/DL Estimat Glomerular Filtration Rate 36 BUN/Creatinine Ratio 28 Glucose Level 157 H 70-105 MG/DL Calcium Level 10.4 H 8.5-10.1 MG/DL Magnesium Level 1.2 L 1.6-2.4 MG/DL My Orders Orders - THAI LAU MD Basic Metabolic Panel (08/11/21 11:42) Cbc With Automated Diff (08/11/21 11:42) Magnesium (08/11/21 11:42) Ed Iv/Invasive Line Start (08/11/21 11:42) D5 Ns 1000 Ml Iv Solution (Dextrose 5%/0 (08/11/21 11:45) Magnesium 2 Gm/50 Ml Ivpb (Magnesium 2 G (08/11/21 12:30) Medications Given in ED Current Medications Medications Dose Ordered Sig/Raymond Route Start Time Stop Time Status Last Admin Dose Admin Dextrose/Sodium Chloride 1,000 ml @ 200 mls/hr Q5H ONCE IV 08/11/21 11:45 08/11/21 16:44 08/11/21 11:54 200 MLS/HR Vital Signs/I&O 08/11/21 11:30 Temp 36.7 Pulse 92 Resp 26 B/P (MAP) 127/79 (95) Pulse Ox 99 O2 Delivery Nasal Cannula O2 Flow Rate 2.00 Blood Pressure Mean: 95 Progress Progress Note : Progress Note 76-year-old female with above history coming in with diarrhea in the setting of a recent flu shot. ABCs were intact and vitals are stable on presentation. Physi tyler exam reassuring other than liquid stool in her bag. IV was placed and labs are drawn significant for hyponatremia with sodium of 128 which is new for her, new MOUSTAPHA with a creatinine of 1.4, hypomagnesemia at 1.2. With her electrolyte abnormalities as well as general weakness in the setting of her unable to keep up with the p.o., was given IV magnesium replacement, and IV fluids. She will need to be admitted to the hospital for further evaluation and management. Discussed case with Dr. Gupta who will admit her for obs. Departure Impression Primary Impression: Hyponatremia Additional Impressions: MOUSTAPHA (acute kidney injury) Hypomagnesemia Diarrhea Qualified Codes: R19.7 - Diarrhea, unspecified Disposition: 09 ADMITTED INPATIENT Condition: Stable Departure-Patient Inst. Referrals: NO,LOCAL PHYSICIAN (PCP/Family) Primary Care Physician THAI LAU MD Aug 11, 2021 12:44
[2021-08-11] MEDS ORDERED: NICOTINE 21 MG (NICODERM) PATCH TD ONE (13:45)
--- NOTE | 2021-08-11 13:54 | History & Physical-Hospitalist ---
History of Present Illness HPI/Chief Complaint Patient is a 76-year-old female with a history of metastatic colon cancer status post hemicolectomy and radiation, hypertension, COPD with chronic respiratory failure who presented to the emergency department due to diarrhea. She states that she got her flu vaccine on 08/08 and developed diarrhea that evening. She attributed it to that but it continued throughout the weekend prompting her to seek evaluation in the emergency department today as she felt more was coming out than she could keep up with. She was found to be slightly dehydrated in the emergency department with a creatinine of 1.4, sodium of 128, magnesium of 1.2. She denies any pain, nausea, or vomiting and is actually asking for food. Source: patient Date Seen 08/11/21 Time Seen by a Provider: 13:49 Attending Physician Alicia Gupta MD PCP No,Local Physician Referring Physician Date of Admission Aug 11, 2021 at 12:45 Home Medications & Allergies Home Medications Reviewed patient Home Medication Reconciliation performed by pharmacy medication reconciliations flight test data acquisition technician and/or nursing. Patients Allergies have been reviewed. Allergies Allergies Coded Allergies Penicillins (Verified Allergy, Unknown, Anaphylaxis, 09/26/20) budesonide (Verified Allergy, Unknown, Nausea, PT USES TRELEGY, 12/20/20) formoterol (Verified Allergy, Unknown, Nausea, 09/26/20) midazolam (Verified Allergy, Unknown, Anaphylaxis, pt has rec Lorazepam & alprazolam in the past, 02/04/21) Has received Lorazepam & alprazolam without issue Past Hptntsl-Hxpdya-Mphtsj Hx Patient Social History Tobacco Use?: Yes Tobacco type used: Cigarettes Smoking Status: Current Everyday Smoker Use of E-Cig and/or Vaping dev: No Substance use?: No Alcohol Use?: No Immunizations Up To Date Date of Influenza Vaccine: Aug 06, 2020 Tetanus Booster (TDap): Unknown Date of Pneumonia Vaccine: Jul 25, 2020 Seasonal Allergies Seasonal Allergies: Yes Current Status Advance Directives: No Communicates: Verbally Primary Language: Frisian Preferred Spoken Language: Frisian Past Medical History Surgeries: Abdominal COPD Currently Using CPAP: No Currently Using BIPAP: No High Cholesterol, Hypertension Bladder Infection, Renal Failure Chronic Constipation Arthritis, Chronic Back Pain Hearing Impairment: Hard of Hearing, Bilateral Hearing Aide Colon Did You Recieve Any Treatments: Yes What Type of Treatment Did You: Surgical Intervention Blood Disorders: No Family Medical History Reviewed Nursing Family Hx No Pertinent Family Hx PAST SURGICAL HISTORY: -COLONOSCOPY -11/01/20--PT HAD EXTENDED RIGHT HEMICOLECTOMY WITH SUBSEQUENT ILEOCOLONIC TORSION, WITH ILEOSTOMY, MULTIPLE RESECTIONS AND REVISIONS, DEBRIDEMENTS, DRAINAGE OF INTRA-ABDOMINAL ABSCESSES, AND MESH PLACEMENT. Review of Systems Constitutional: No chills, No fever EENTM: no symptoms reported Respiratory: No cough, No short of breath Cardiovascular: No chest pain, No edema, No palpitations Gastrointestinal: No abdominal pain; diarrhea; No nausea, No vomiting Genitourinary: no symptoms reported Musculoskeletal: no symptoms reported Skin: no symptoms reported Psychiatric/Neurological: No Symptoms Reported Physical Exam Physical Exam Vital Signs Vital Signs - First Documented 08/11/21 11:30 Temp 36.7 Pulse 92 Resp 26 B/P (MAP) 127/79 (95) Pulse Ox 99 O2 Delivery Nasal Cannula O2 Flow Rate 2.00 Capillary Refill : Less Than 3 Seconds Height, Weight, BMI Height: '" Weight: lbs. oz. kg; 29.00 BMI Method: General Appearance: No Apparent Distress, Chronically ill HEENT: PERRL/EOMI, Moist Mucous Membranes; No Scleral Icterus (L), No Scleral Icterus (R) Neck: Normal Inspection, Supple Respiratory: Lungs Clear, No Respiratory Distress, Wheezing (scant), Other (on home oxygen 2lpm) Cardiovascular: Regular Rate, Rhythm, No JVD, No Murmur Gastrointestinal: Normal Bowel Sounds, Non Tender, Soft, Other (ostomy in place) Extremity: No Calf Tenderness, No Pedal Edema Neurologic/Psychiatric: Alert, Oriented x3, Normal Mood/Affect Skin: Normal Color, Warm/Dry Results Results/Procedures Labs Laboratory Tests 08/11/21 11:49 Patient resulted labs reviewed. Assessment/Plan Admission Diagnosis Dehydration Admission Status: Observation Assessment and Plan MOUSTAPHA Dehydration Hypovolumic Hyponatremia due to diarrhea Was on abx 1 month ago so will check c diff Imodium prn Continue IVF Mag replaced in the ER, check in AM Chronic repsiratory failure due to COPD Active tobacco use Currently on baseline oxygen, 2lpm States not ready to quit, ask for nicotine patch while in the hospital HTN Colon cancer Continue home meds as able DVT ppx: Lovenox Diagnosis/Problems Diagnosis/Problems (1) Acute renal failure Status: Acute Qualifiers: Acute renal failure type: unspecified Qualified Codes: N17.9 - Acute kidney failure, unspecified (2) Diarrhea Status: Acute Qualifiers: Diarrhea type: unspecified type Qualified Codes: R19.7 - Diarrhea, un specified (3) Hyponatremia Status: Acute (4) Hypomagnesemia Status: Acute (5) Gastroenteritis Status: Acute (6) 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
[2021-08-11] MEDS ORDERED: CATHETER FLUSH 10 ML SYR IV PRN (14:30)
[2021-08-11] MEDS: MAGNESIUM 1 GM/D5W 100 ML IVPB IV SCH ×2 (14:39→17:27)
[2021-08-11] MEDS: D5 NS 1000 ML IV SOLUTION 1,000 ML IV SCH ×3 (14:39→23:38)
[2021-08-11 15:07] VITALS: BP 105/66
[2021-08-11] MEDS ORDERED: RT-ALBUTEROL/IPRATROPIUM 3 ML (DUONEB) VIAL INH PRN (15:15)
[2021-08-11] MEDS ORDERED: METO-333 PO (15:31)
[2021-08-11] MEDS ORDERED: PANT40TA52 PO (15:31)
[2021-08-11] MEDS ORDERED: ASCO-262 PO (15:31)
[2021-08-11] MEDS ORDERED: MULT-1076 PO (15:31)
[2021-08-11] MEDS ORDERED: DOCU100T7 PO (15:31)
[2021-08-11] MEDS ORDERED: AMLO-250 PO (15:31)
[2021-08-11] MEDS ORDERED: FLUT1BLS3 IH (15:31)
[2021-08-11] MEDS ORDERED: NF-NACL1GT PO (15:31)
[2021-08-11 16:26] VITALS: BP 117/61
[2021-08-11] MEDS ORDERED: LOPERAMIDE 2 MG (IMODIUM) TABLET PO PRN (17:00)
[2021-08-11 19:03] VITALS: BP 123/57
[2021-08-11] MEDS: PANTOPRAZOLE 40 MG (PROTONIX) TAB PO SCH (20:25)
[2021-08-11] MEDS: RT-ALBUTEROL/IPRATROPIUM 3 ML (DUONEB) VIAL INH SCH (20:48)
[2021-08-12 00:03] VITALS: BP 112/56
[2021-08-12] MEDS: RT-ALBUTEROL/IPRATROPIUM 3 ML (DUONEB) VIAL INH SCH ×2 (02:43→07:24)
[2021-08-12 04:05] VITALS: BP 113/58
[2021-08-12] MEDS: D5 NS 1000 ML IV SOLUTION 1,000 ML IV SCH ×2 (04:36→09:45)
[2021-08-12 06:03] LABS: POTASSIUM 4.1 MMOL/L (3.6-5.0)
[2021-08-12 06:04] LABS: CALCIUM 8.7 MG/DL (8.5-10.1)
[2021-08-12 06:08] LABS: CREATININE SERUM 0.94 MG/DL (0.60-1.30)
[2021-08-12] MEDS ORDERED: UMECLIDINIUM BROMIDE (INCRUSE ELLIPTA) 7'S IH SCH (08:00)
[2021-08-12 08:11] VITALS: BP 111/67
[2021-08-12] MEDS: PANTOPRAZOLE 40 MG (PROTONIX) TAB PO SCH (08:38)
[2021-08-12] MEDS ORDERED: RT--FLUTICASONE/SALMETEROL 232-14 (AIRDUO RespiCLICK) IH SCH (09:00)
[2021-08-12] MEDS ORDERED: MULTIVIT W/MINERALS TAB (THERAGRAN M) PO SCH (09:00)
[2021-08-12] MEDS ORDERED: METO-333 PO (10:35)
--- NOTE | 2021-08-12 10:36 | Discharge Inst-Simple/Standard ---
Discharge Inst-Standard Patient Instructions/Follow Up Plan of Care/Instructions/FU: Please continue to take your medications as written. Please follow up with your primary care doctor to follow up this hospital stay. Activity as Tolerated: Yes Discharge Diet: No Restrictions Return to The Hospital For: Chest pain, shortness of breath, weakness, fever, increasing ostomy output, if you feel you are getting worse. ALICIA FULTON MD Aug 12, 2021 10:36
--- NOTE | 2021-08-12 10:36 | Discharge Summary ---
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 (7) COPD (chronic obstructive pulmonary disease) Status: Chronic Discharge Summary Discharge Physical Exam Allergies: Coded Allergies: Penicillins (Verified Allergy, Unknown, Anaphylaxis, 09/26/20) budesonide (Verified Allergy, Unknown, Nausea, PT USES TRELEGY, 12/20/20) formoterol (Verified Allergy, Unknown, Nausea, 09/26/20) midazolam (Verified Allergy, Unknown, Anaphylaxis, pt has rec Lorazepam & alprazolam in the past, 02/04/21) Has received Lorazepam & alprazolam without issue Vitals & I&Os Vital Signs Date Time Temp Pulse Resp B/P (MAP) Pulse Ox O2 Delivery O2 Flow Rate FiO2 08/12/21 11:39 36.4 90 18 111/67 97 Nasal Cannula 2.00 08/11/21 15:07 28 General Appearance: No Apparent Distress, WD/WN Respiratory: Lungs Clear, No Respiratory Distress Cardiovascular: Regular Rate, Rhythm, No Murmur Neurologic/Psychiatric: Alert, Oriented x3 Hospital Course Patient was admitted to the hospital secondary to dehydration due to diarrhea. She has a history of colon cancer and ostomy and had had 3 to 4 days of high output from her ostomy. She had a mild creatinine elevation of 1.4 from her baseline of 0.9. She was treated with IV fluids and did well. She was checked for C. difficile as she had completed a course of antibiotics 1 month ago and this was negative. Her diarrhea slowed in her creatinine returned to baseline. She was discharged home in stable and improved condition to follow-up with her primary care doctor. Labs (last 24 hrs) Laboratory Tests 08/12/21 05:30: Magnesium Level 1.6 08/12/21 05:35: Sodium Level 136, Potassium Level 4.1, Chloride Level 112#H, Carbon Dioxide Level 14L, Anion Gap 10, Blood Urea Nitrogen 25H, Creatinine 0.94, Estimat Glomerular Filtration Rate 58, BUN/Creatinine Ratio 27, Glucose Level 135H, Calcium Level 8.7 Microbiology 08/11/21 C. difficile [facility] Antigen & Toxins - Final, Complete Patient resulted labs reviewed. Pending Labs Laboratory Tests 08/12/21 05:30: Magnesium Level 1.6 08/12/21 05:35: Sodium Level 136, Potassium Level 4.1, Chloride Level 112, Carbon Dioxide Level 14, Anion Gap 10, Blood Urea Nitrogen 25, Creatinine 0.94, Estimat Glomerular Filtration Rate 58, BUN/Creatinine Ratio 27, Glucose Level 135, Calcium Level 8.7 Discussion & Recommendations Discharge Planning: <30 minutes discharge planning Discharge Home Medications: Active Scripts Active Metoprolol Tartrate 25 Mg Tablet 25 Mg PO DAILY Check blood pressure before taking and hold if blood pressue lower than 140/90 Reported Stool Softener (Docusate Sodium) 100 Mg Tablet 100-200 Mg PO BID PRN Multivitamin with Iron Tablet (Multivitamin/Iron/Folic Acid) 1 Each Tablet 1 Each PO DAILY Vitamin C (Ascorbate Calcium) 500 Mg Tablet 500 Mg PO DAILY Pantoprazole Sodium 40 Mg Tablet.dr 40 Mg PO BID Sodium Chloride 1 Gm Tab 1 Gm PO DAILY Trelegy Ellipta 100-62.5-25 (Fluticasone/Umeclidin/Vilanter) 1 Each Blst.w.dev 1 Each IH DAILY Instructions to patient/family Please see electronic discharge instructions given to patient. Problem Qualifiers (1) Acute renal failure: Acute renal failure type: unspecified Qualified Codes: N17.9 - Acute kidney failure, unspecified (2) Diarrhea: Diarrhea type: unspecified type Qualified Codes: R19.7 - Diarrhea, unspecified (3) COPD (chronic obstructive pulmonary disease): COPD type: emphysema Emphysema type: unspecified Qualified Codes: J43.9 - Emphysema, unspecified ALICIA FULTON MD Aug 12, 2021 10:36
[2021-08-12 11:39] VITALS: BP 111/67
== END 2021-08-12 11:40 | disposition home or self-care (01) ==
LOC: EDUNIT# 11:22 → ER 11:24 → 4TH 12:45
PROVIDERS: ADMIT Family Medicine; ATTEND Family Medicine
DX: R19.7 Diarrhea, unspecified (principal); J30.2 Other seasonal allergic rhinitis; J44.9 Chronic obstructive pulmonary disease, unspecified; E78.00 Pure hypercholesterolemia, unspecified; I10 Essential (primary) hypertension; K59.09 Other constipation; E87.1 Hypo-osmolality and hyponatremia; N17.9 Acute kidney failure, unspecified; E83.42 Hypomagnesemia; J96.10 Chronic respiratory failure, unspecified whether with hypoxia or hypercapnia; M19.90 Unspecified osteoarthritis, unspecified site; F17.210 Nicotine dependence, cigarettes, uncomplicated; Z85.038 Personal history of other malignant neoplasm of large intestine; Z93.3 Colostomy status; Z79.899 Other long term (current) drug therapy; Z79.891 Long term (current) use of opiate analgesic; Z93.2 Ileostomy status; Z90.49 Acquired absence of other specified parts of digestive tract
CPT/HCPCS: 36415; 80048; 83735; 85025; 87324; 87449; 94640; 94760; G0378

== ENCOUNTER 2021-09-06 21:35 | Emergency (ER) | payer MEDICARE ==
[~2021-09-06] VITALS: Ht 157 cm; Wt 74.0 kg
[~2021-09-06 21:35] MED LIST changes: +AMLO-250 PO; +ASCO-262 PO; +DOCU100T7 PO
[2021-09-06] MEDS ORDERED: NS IV 1000 ML 1,000 ML IV SCH (21:45)
[2021-09-06] MEDS ORDERED: LOPERAMIDE 2 MG (IMODIUM) TABLET PO ONE (21:45)
--- NOTE | 2021-09-06 21:45 | ED General ---
General Stated Complaint: DIARRHEA Source of Information: Patient Exam Limitations: No Limitations History of Present Illness Date Seen by Provider: Sep 06, 2021 Time Seen by Provider: 21:43 Initial Comments Patient is a 76-year-old female with a history of metastatic colon cancer status post hemicolectomy and radiation, hypertension, COPD with chronic respiratory failure who presented to the emergency department due to diarrhea. Symptoms began today. She had an episode where she felt lightheaded. Timing/Duration: 1-2 Days Severity: Moderate Associated Systoms: Denies Symptoms Allergies and Home Medications Allergies Coded Allergies: Penicillins (Verified Allergy, Unknown, Anaphylaxis, 09/26/20) budesonide (Verified Allergy, Unknown, Nausea, PT USES TRELEGY, 12/20/20) formoterol (Verified Allergy, Unknown, Nausea, 09/26/20) midazolam (Verified Allergy, Unknown, Anaphylaxis, pt has rec Lorazepam & alprazolam in the past, 02/04/21) Has received Lorazepam & alprazolam without issue Patient Home Medication List Home Medication List Reviewed: Yes Ascorbate Calcium (Vitamin C) 500 Mg Tablet, 500 MG PO DAILY, (Reported) Entered as Reported by: VICKI CARDOSO on 08/11/21 1531 Docusate Sodium (Stool Softener) 100 Mg Tablet, 100-200 MG PO BID PRN for CONSTIPATION-1ST LINE, (Reported) Entered as Reported by: VICKI CARDOSO on 08/11/21 1531 Fluticasone/Umeclidin/Vilanter (Trelegy Ellipta 100-62.5-25) 1 Each Blst.w.dev, 1 EACH IH DAILY, (Reported) Entered as Reported by: VICKI CARDOSO on 08/11/21 1531 Metoprolol Tartrate (Metoprolol Tartrate) 25 Mg Tablet, 25 MG PO DAILY Prescribed by: ALICIA FULTON on 08/12/21 1035 Multivitamin/Iron/Folic Acid (Multivitamin with Iron Tablet) 1 Each Tablet, 1 EACH PO DAILY, (Reported) Entered as Reported by: VICKI CARDOSO on 08/11/21 1531 Pantoprazole Sodium (Pantoprazole Sodium) 40 Mg Tablet.dr, 40 MG PO BID, (Reported) Entered as Reported by: VICKI CARDOSO on 08/11/21 1531 Sodium Chloride (Sodium Chloride) 1 Gm Tab, 1 GM PO DAILY, (Reported) Entered as Reported by: VICKI CARDOSO on 08/11/21 1531 Review of Systems Review of Systems Constitutional: see HPI EENTM: see HPI Respiratory: no symptoms reported Cardiovascular: no symptoms reported Gastrointestinal: No abdominal pain (Denies abdominal pain); diarrhea Genitourinary: no symptoms reported Musculoskeletal: no symptoms reported Skin: no symptoms reported Psychiatric/Neurological: No Symptoms Reported Hematologic/Lymphatic: No Symptoms Reported Immunological/Allergic: no symptoms reported Past Fhewqkx-Trdvls-Uzigcr Hx Immunizations Up To Date Tetanus Booster (TDap): Unknown Seasonal Allergies Seasonal Allergies: Yes Past Medical History Surgery/Hospitalization HX: BOWEL RESECTION, COLON CA Surgeries: Yes (CATARACTS; BOWEL SURGERIES--SEE BELOW) Abdominal Respiratory: Yes COPD Currently Using CPAP: No Currently Using BIPAP: No Cardiac: Yes High Cholesterol, Hypertension Neurological: No Genitourinary: No Bladder Infection, Renal Failure Gastrointestinal: Yes (colon cancer) Chronic Constipation Musculoskeletal: Yes Arthritis, Chronic Back Pain Endocrine: No HEENT: Yes (cataracts removed, dentures) Hearing Impairment: Hard of Hearing, Bilateral Hearing Aide Cancer: Yes Colon Did You Recieve Any Treatments: Yes What Type of Treatment Did You: Surgical Intervention Psychosocial: No Integumentary: No Blood Disorders: No Family Medical History No Pertinent Family Hx PAST SURGICAL HISTORY: -COLONOSCOPY -11/01/20--PT HAD EXTENDED RIGHT HEMICOLECTOMY WITH SUBSEQUENT ILEOCOLONIC TORSION, WITH ILEOSTOMY, MULTIPLE RESECTIONS AND REVISIONS, DEBRIDEMENTS, DRAINAGE OF INTRA-ABDOMINAL ABSCESSES, AND MESH PLACEMENT. Physical Exam Vital Signs Vital Signs - First Documented 09/06/21 21:59 Temp 35.9 Pulse 100 Resp 18 B/P (MAP) 124/91 (102) Pulse Ox 96 O2 Delivery Room Air Capillary Refill : Height, Weight, BMI Height: '" Weight: lbs. oz. kg; 29.99 BMI Method: General Appearance: No Apparent Distress, WD/WN, Other (Alert and oriented no distress. Heart rate 100. Blood pressure 124/91. Her ileostomy on the right is full of watery stool. Bowel sounds are present. Abdomen is nontender.) Eyes: Bilateral Eye Normal Inspection, Bilateral Eye PERRL, Bilateral Eye EOMI Neck: Full Range of Motion, Normal Inspection Respiratory: No Accessory Muscle Use, No Respiratory Distress Cardiovascular: Regular Rate, Rhythm, Normal Peripheral Pulses Gastrointestinal: Normal Bowel Sounds, Non Tender, Soft Extremity: Normal Capillary Refill, Normal Inspection Neurologic/Psychiatric: Alert, Oriented x3 Procedures/Interventions Date of ETT Placement: Nov 15, 2020 Progress/Results/Core Measures Suspected Sepsis SIRS Temperature: Pulse: Respiratory Rate: Laboratory Tests 09/06/21 21:55: White Blood Count 16.3H Blood Pressure / Mean: Laboratory Tests 09/06/21 21:55: Creatinine 1.64H, Platelet Count 305, Total Bilirubin 0.5 Results/Orders Lab Results Laboratory Tests Test 09/06/21 21:55 Range/Units White Blood Count 16.3 H 4.3-11.0 10^3/uL Red Blood Count 4.39 3.80-5.11 10^6/uL Hemoglobin 15.0 11.5-16.0 g/dL Hematocrit 42 35-52 % Mean Corpuscular Volume 96 80-99 fL Mean Corpuscular Hemoglobin 34 25-34 pg Mean Corpuscular Hemoglobin Concent 36 32-36 g/dL Red Cell Distribution Width 12.1 10.0-14.5 % Platelet Count 305 130-400 10^3/uL Mean Platelet Volume 9.5 9.0-12.2 fL Immature Granulocyte % (Auto) 1 % Neutrophils (%) (Auto) 67 42-75 % Lymphocytes (%) (Auto) 22 12-44 % Monocytes (%) (Auto) 8 0-12 % Eosinophils (%) (Auto) 2 0-10 % Basophils (%) (Auto) 0 0-10 % Neutrophils # (Auto) 10.9 H 1.8-7.8 10^3/uL Lymphocytes # (Auto) 3.6 1.0-4.0 10^3/uL Monocytes # (Auto) 1.4 H 0.0-1.0 10^3/uL Eosinophils # (Auto) 0.3 0.0-0.3 10^3/uL Basophils # (Auto) 0.1 0.0-0.1 10^3/uL Immature Granulocyte # (Auto) 0.1 0.0-0.1 10^3/uL Neutrophils % (Manual) 63 % Lymphocytes % (Manual) 23 % Monocytes % (Manual) 9 % Eosinophils % (Manual) 4 % Band Neutrophils 1 % Blood Morphology Comment NORMAL Sodium Level 134 L 135-145 MMOL/L Potassium Level 4.0 3.6-5.0 MMOL/L Chloride Level 97 L 98-107 MMOL/L Carbon Dioxide Level 18 L 21-32 MMOL/L Anion Gap 19 H 5-14 MMOL/L Blood Urea Nitrogen 24 H 7-18 MG/DL Creatinine 1.64 H 0.60-1.30 MG/DL Estimat Glomerular Filtration Rate 30 BUN/Creatinine Ratio 15 Glucose Level 116 H 70-105 MG/DL Calcium Level 10.6 H 8.5-10.1 MG/DL Corrected Calcium 8.5-10.1 MG/DL Magnesium Level 1.0 *L 1.6-2.4 MG/DL Total Bilirubin 0.5 0.1-1.0 MG/DL Aspartate Amino Transf (AST/SGOT) 22 5-34 U/L Alanine Aminotransferase (ALT/SGPT) 27 0-55 U/L Alkaline Phosphatase 109 40-136 U/L Total Protein 8.1 6.4-8.2 GM/DL Albumin 4.8 H 3.2-4.5 GM/DL My Orders Orders - KAYLA DUNCAN APRN Magnesium (09/06/21 21:37) Cbc With Automated Diff (09/06/21 21:37) Comprehensive Metabolic Panel (09/06/21 21:37) Ed Iv/Invasive Line Start (09/06/21 21:37) Ns Iv 1000 Ml (Sodium Chloride 0.9%) (09/06/21 21:45) Loperamide Tablet (Imodium Tablet) (09/06/21 21:45) Manual Differential (09/06/21 21:55) Lactated Ringers (Lr 1000 Ml Iv Solution (09/06/21 22:30) Magnesium Oxide Tablet (Mag Ox Tablet) (09/06/21 22:45) Magnesium Sulf 2 Gm Ivpb (09/06/21 22:45) Medications Given in ED Current Medications Medications Dose Ordered Sig/Raymond Route Start Time Stop Time Status Last Admin Dose Admin Loperamide HCl 4 mg ONCE ONCE PO 09/06/21 21:45 09/06/21 21:46 DC 09/06/21 21:53 4 MG Vital Signs/I&O 09/06/21 21:59 Temp 35.9 Pulse 100 Resp 18 B/P (MAP) 124/91 (102) Pulse Ox 96 O2 Delivery Room Air Capillary Refill : Departure Impression Primary Impression: Gastroenteritis Disposition: 01 HOME, SELF-CARE Condition: Stable Departure-Patient Inst. Referrals: NO,LOCAL PHYSICIAN (PCP/Family) Primary Care Physician KAYLA DUNCAN APRN Sep 06, 2021 21:45
[2021-09-06 22:03] LABS: BASOPHILS # (AUTO) 0.1 10^3/uL (0.0-0.1); BASOPHILS % (AUTO) 0 % (0-10); EOSINOPHILS # (AUTO) 0.3 10^3/uL (0.0-0.3); EOSINOPHILS % (AUTO) 2 % (0-10); HEMATOCRIT 42 % (35-52); LYMPHOCYTES # (AUTO) 3.6 10^3/uL (1.0-4.0); LYMPHOCYTES % (AUTO) 22 % (12-44); MEAN CORPUSCULAR HEMOGLOBIN 34 pg (25-34); MEAN CORPUSCULAR HGB CONC 36 g/dL (32-36); MEAN CORPUSCULAR VOLUME 96 fL (80-99); MEAN PLATELET VOLUME 9.5 fL (9.0-12.2); MONOCYTES # (AUTO) 1.4 10^3/uL (0.0-1.0); MONOCYTES % (AUTO) 8 % (0-12); NEUTROPHILS # (AUTO) 10.9 10^3/uL (1.8-7.8); NEUTROPHILS % (AUTO) 67 % (42-75); PLATELET COUNT 305 10^3/uL (130-400); WHITE BLOOD COUNT 16.3 10^3/uL (4.3-11.0)
[2021-09-06 22:16] LABS: ALBUMIN 4.8 GM/DL (3.2-4.5); CHLORIDE 97 MMOL/L (98-107); SODIUM 134 MMOL/L (135-145)
[2021-09-06 22:17] LABS: CALCIUM 10.6 MG/DL (8.5-10.1)
[2021-09-06 22:19] LABS: GLUCOSE 116 MG/DL (70-105); TOTAL PROTEIN 8.1 GM/DL (6.4-8.2)
[2021-09-06 22:20] LABS: BILIRUBIN,TOTAL 0.5 MG/DL (0.1-1.0); CARBON DIOXIDE 18 MMOL/L (21-32)
[2021-09-06 22:22] LABS: ALKALINE PHOSPHATASE 109 U/L (40-136); CREATININE SERUM 1.64 MG/DL (0.60-1.30); GFR ESTIMATED 30
[2021-09-06 22:23] LABS: BUN/CREATININE RATIO 15
[2021-09-06 22:25] LABS: ALANINE AMINOTRANSFERASE 27 U/L (0-55)
[2021-09-06 22:27] LABS: BAND NEUTROPHILS 1 %; EOSINOPHILS % (MANUAL) 4 %; LYMPHOCYTES % (MANUAL) 23 %; MONOCYTES % (MANUAL) 9 %; NEUTROPHILS % (MANUAL) 63 %
[2021-09-06 22:28] LABS: RBC MORPH NORMAL
[2021-09-06] MEDS ORDERED: LACTATED RINGERS 1,000 ML IV SCH (22:30)
[2021-09-06] MEDS: MAGNESIUM 1 GM/100 ML IVPB 100 ML IV SCH ×2 (22:39→23:31)
[2021-09-06] MEDS ORDERED: MAGNESIUM OXIDE (MAG-OX)400 MG TAB PO ONE (22:45)
[2021-09-07] MEDS ORDERED: risperiDONE 1 MG (RisperDAL) TAB PO ONE (00:15)
[2021-09-07] MEDS ORDERED: OXcarbazepine (TRILEPTAL) 300 MG TAB PO ONE (00:15)
[2021-09-07 00:20] VITALS: BP 132/73
[2021-09-07] MEDS ORDERED: MELATONIN 3 MG TABLET PO SCH (21:00)
== END 2021-09-07 00:20 | disposition home or self-care (01) ==
LOC: EDUNIT# 21:35 → ER 21:37
DX: K52.9 Noninfective gastroenteritis and colitis, unspecified (principal); J44.9 Chronic obstructive pulmonary disease, unspecified; I10 Essential (primary) hypertension
CPT/HCPCS: 36415; 80053; 83735; 85007; 85027

== ENCOUNTER 2021-10-23 08:52 | Outpatient (RCR) | payer MEDICARE ==
[~2021-10-23 08:52] MED LIST changes: -BARIUM SUSPENSION 2.1% (VANILLA SILQ) 450 ML PO ONE; -CATHETER FLUSH 10 ML SYR IV PRN; -HOLD METFORMIN - RECEIVED CONTRAST 20 ML VIAL IV SCH; -IOHEXOL 350 MG/ML 100 ML (OMNIPAQUE 350) VIAL IV ONE; -NS 100 ML (IVPB) BAG IV ONE
== END 2021-10-24 | disposition home or self-care (01) ==
LOC: ONC 08:52
PROVIDERS: ATTEND Internal Medicine Hematology & Oncology
DX: C18.4 Malignant neoplasm of transverse colon (principal); R91.1 Solitary pulmonary nodule; R19.09 Other intra-abdominal and pelvic swelling, mass and lump; Z72.0 Tobacco use; Z90.89 Acquired absence of other organs

== ENCOUNTER → 2021-10-23 | Outpatient (CLI) | payer MEDICARE ==
[~2021-10-23] MED LIST changes: +BARIUM SUSPENSION 2.1% (VANILLA SILQ) 450 ML PO ONE; +CATHETER FLUSH 10 ML SYR IV PRN; +HOLD METFORMIN - RECEIVED CONTRAST 20 ML VIAL IV SCH; +IOHEXOL 350 MG/ML 100 ML (OMNIPAQUE 350) VIAL IV ONE; -LEVO500T80 PO; +LEVO500T81 PO; +MONT-40 PO; -MONT10TA32 PO; +NS 100 ML (IVPB) BAG IV ONE
[2021-10-23 09:03] LABS: BASOPHILS # (AUTO) 0.1 10^3/uL (0.0-0.1); BASOPHILS % (AUTO) 1 % (0-10); EOSINOPHILS # (AUTO) 0.3 10^3/uL (0.0-0.3); EOSINOPHILS % (AUTO) 3 % (0-10); HEMATOCRIT 37 % (35-52); HEMOGLOBIN 12.9 g/dL (11.5-16.0); LYMPHOCYTES # (AUTO) 3.6 10^3/uL (1.0-4.0); LYMPHOCYTES % (AUTO) 35 % (12-44); MEAN CORPUSCULAR HEMOGLOBIN 34 pg (25-34); MEAN CORPUSCULAR HGB CONC 35 g/dL (32-36); MEAN CORPUSCULAR VOLUME 96 fL (80-99); MEAN PLATELET VOLUME 9.1 fL (9.0-12.2); MONOCYTES % (AUTO) 10 % (0-12); NEUTROPHILS # (AUTO) 5.2 10^3/uL (1.8-7.8); NEUTROPHILS % (AUTO) 50 % (42-75); PLATELET COUNT 249 10^3/uL (130-400); WHITE BLOOD COUNT 10.3 10^3/uL (4.3-11.0)
[2021-10-23 09:25] LABS: ALBUMIN 4.4 GM/DL (3.2-4.5); BILIRUBIN,TOTAL 0.4 MG/DL (0.1-1.0); CALCIUM 9.9 MG/DL (8.5-10.1); CREATININE SERUM 0.92 MG/DL (0.60-1.30); POTASSIUM 4.3 MMOL/L (3.6-5.0); TOTAL PROTEIN 7.4 GM/DL (6.4-8.2)
--- NOTE | 2021-10-23 12:04 | Diagnostic Imaging Report ---
PROCEDURE: CT chest with contrast, CT abdomen and pelvis with and without contrast. TECHNIQUE: Pre and post intravenous contrast axial imaging of the abdomen and pelvis and post contrast axial imaging of the chest were performed. Auto Exposure Controls were utilized during the CT exam to meet ALARA standards for radiation dose reduction. INDICATION: Colon cancer. Compared with a chest CT 07/24/20[address] abdominal pelvic [address] 05/25/2021 CHEST: Some juxtapleural scarring in the right lower lobe at the site of previous nodule noted no suspicious lung mass or adverse change. Centrilobular emphysematous changes in the lungs and an incidental azygous fissure chronic. No findings of pneumonia. No evidence for pulmonary neoplasm. Some minimal scarring in the right lung base posteromedially chronic. No evidence of edema. There is no axillary, hilar or mediastinal lymphadenopathy. No acute or suspect chest wall pathology. Thoracic aorta patent and nonaneurysmal. No pleural or pericardial effusion. ABDOMEN AND PELVIS: Open wound or incisional hernia at the midline unchanged. There are bilateral ostomies without parastomal hernia or adjacent fluid collection. There is no bowel obstruction. The gallbladder contracted. The liver appeared normal. Spleen, adrenals and pancreas unremarkable. There are bilateral renal cysts showing no complexity, stable. There is no ascites, abscess, hematoma or acute fluid collection. Uterus, adnexa and urinary bladder nonacute. No suspicious or acute bony lesion. IMPRESSION: CHEST: No findings of metastatic disease, COPD chronic, no acute finding. ABDOMEN AND PELVIS: Stable postoperative sequelae. No mass or lymphadenopathy. No obstructive features, fluid collection or ascites. Dictated by: Dictated on workstation # [id number]
== END ==
LOC: RAD 09:12
PROVIDERS: ATTEND Internal Medicine Hematology & Oncology
DX: C18.4 Malignant neoplasm of transverse colon (principal); J44.9 Chronic obstructive pulmonary disease, unspecified
CPT/HCPCS: 36415; 71260; 74178; 80053; 82378; 85025

== ENCOUNTER 2021-10-28 12:53 | Outpatient (RCR) | payer MEDICARE ==
[~2021-10-28 12:53] MED LIST changes: -PHEN120L2 MC; +[UNRECOGNIZED DRUG - CODE] MC
[2021-10-30] MEDS ORDERED: CEFD300C3 PO (21:29)
[2021-10-30] MEDS ORDERED: MAGN400T39 PO (21:29)
[2021-10-30] MEDS ORDERED: PRD20T PO (21:29)
[2021-11-14] MEDS ORDERED: ONDA4TAB11 PO (18:54)
[2021-11-17] MEDS ORDERED: MAGN200T8 PO (19:28)
[2021-11-17] MEDS ORDERED: METH4TAB PO (19:28)
== END 2021-11-24 | disposition home or self-care (01) ==
LOC: ONC 12:53
PROVIDERS: ATTEND Internal Medicine Hematology & Oncology
DX: C18.4 Malignant neoplasm of transverse colon (principal); R91.1 Solitary pulmonary nodule; R19.09 Other intra-abdominal and pelvic swelling, mass and lump; I10 Essential (primary) hypertension; E78.00 Pure hypercholesterolemia, unspecified; Z90.89 Acquired absence of other organs; Z72.0 Tobacco use
CPT/HCPCS: 99213

== ENCOUNTER 2021-10-30 17:57 | Emergency (ER) | payer MEDICARE ==
[~2021-10-30] VITALS: Ht 157.4 cm; Wt 76.6 kg
[~2021-10-30 17:57] MED LIST changes: +PHEN120L2 MC; -[UNRECOGNIZED DRUG - CODE] MC
--- NOTE | 2021-10-30 18:19 | ED Cough/URI ---
General Chief Complaint: COVID19 Suspect/Confirmed Stated Complaint: CONGESTION/WEAK/SORE THROAT Source: patient (PT IS LIMITED/DIFFICULT HISTORIAN), old records History of Present Illness Date Seen by Provider: Oct 30, 2021 Time Seen by Provider: 18:10 Initial Comments PT ARRIVES VIA POV FROM HOME, WANTS WHEELCHAIR ON ARRIVAL STATES SHE STARTED HAVING A REALLY BAD COUGH AND CONGESTION AND NASAL DRAINAGE ON Wednesday10/25/21 BEGAN HAVING INCREASED SHORTNESS OF BREATH SINCE THENK--PT HAS O2 DEPENDENT COPD-2L/NC CONTINUOUSLY, AND PT CONTINUES TO SMOKE. STATES LAST NIGHT SHE BEGAN TO HAVE NAUSEA AND DIARRHEA. NO VOMITING; PT HAS ILEOSTOMY IN PLACE FOR COLON CANCER STATES SHE WAS COUGHING SO HARD OVER THE WEEKEND SHE "BLEW HER ILEOSTOMY BAG OFF" HAS HAD DECREASED APPETITE TODAY--HAS HAD SOME FLUIDS, ATE TOAST FOR BREAKFAST, A FEW BITES OF CHICKEN NOODLE SOUP FOR LUNCH AND A FEW CHEEZ-IT'S FOR DINNER NO ABDOMINAL PAIN HAS HAD DECREASED URINE OUTPUT TODAY NO FEVER/SWEATS/CHILLS HAS HAD GENERALIZED WEAKNESS SINCE LAST NIGHT C/O MILD SORE THROAT NO LOSS OF TASTE OR SMELL NO CHEST PAIN NO SWELLING IN LEGS/ FEET PT HAS NOT HAD COVID-19 VACCINE, BUT HAS HAD FLU VACCINE. HAS NOT SOUGHT CARE UNTIL TODAY FOR THIS PROBLEM PT HAS HAD 13 VISITS SINCE HER FIRST VISIT HERE 10/31/2020 STATES SHE HAD ROUTINE FOLLOW UP WITH DR. SOTO LAST WEEK FOR COLON CANCER, PT STATES SHE IS "CANCER FREE" AND IS NOT RECEIVING ANY THERAPY AT THIS TIME. PT HAD BEEN AT [facility], BUT IS NOW LIVING AT HOME PCP: [facility] IN [place]--HAS NOT BEEN THERE IN A YEAR, STATES SHE JUST SEES PEOPLE FOR HER CANCER Allergies and Home Medications Allergies Coded Allergies: Penicillins (Verified Allergy, Unknown, Anaphylaxis, 09/26/20) budesonide (Verified Allergy, Unknown, Nausea, PT USES TRELEGY, 12/20/20) formoterol (Verified Allergy, Unknown, Nausea, 09/26/20) midazolam (Verified Allergy, Unknown, Anaphylaxis, pt has rec Lorazepam & alprazolam in the past, 02/04/21) Has received Lorazepam & alprazolam without issue Patient Home Medication List Ascorbate Calcium (Vitamin C) 500 Mg Tablet, 500 MG PO DAILY, (Reported) Entered as Reported by: VICKI CARDOSO on 08/11/211530 Docusate Sodium (Stool Softener) 100 Mg Tablet, 100-200 MG PO BID PRN for CONSTIPATION-1ST LINE, (Reported) Entered as Reported by: VICKI CARDOSO on 08/11/211530 Fluticasone/Umeclidin/Vilanter (Trelegy Ellipta 100-62.5-25) 1 Each Blst.w.dev, 1 EACH IH DAILY, (Reported) Entered as Reported by: VICKI CARDOSO on 08/11/211530 Metoprolol Tartrate (Metoprolol Tartrate) 25 Mg Tablet, 25 MG PO DAILY Prescribed by: ALICIA FULTON on 08/12/21 103 Multivitamin/Iron/Folic Acid (Multivitamin with Iron Tablet) 1 Each Tablet, 1 EACH PO DAILY, (Reported) Entered as Reported by: VICKI CARDOSO on 08/11/211530 Pantoprazole Sodium (Pantoprazole Sodium) 40 Mg Tablet.dr, 40 MG PO BID, (R eported) Entered as Reported by: VICKI CARDOSO on 08/11/211530 Sodium Chloride (Sodium Chloride) 1 Gm Tab, 1 GM PO DAILY, (Reported) Entered as Reported by: VICKI CARDOSO on 08/11/211530 Review of Systems Review of Systems Constitutional: see HPI; No chills, No diaphoresis, No dizziness, No fever; malaise, weakness EENTM: see HPI, nose congestion, throat pain Respiratory: see HPI, cough Cardiovascular: no symptoms reported; No chest pain, No edema Gastrointestinal: see HPI; No abdominal pain; diarrhea, loss of appetite, nausea; No vomiting Genitourinary: see HPI, decreased output Musculoskeletal: no symptoms reported Skin: no symptoms reported Psychiatric/Neurological: No Symptoms Reported Hematologic/Lymphatic: See HPI Immunological/Allergic: no symptoms reported Past Tchqqaa-Xpqigj-Klhxuk Hx Patient Social History Tobacco Use?: Yes Tobacco type used: Cigarettes Smoking Status: Current Everyday Smoker Substance use?: No Alcohol Use?: No Immunizations Up To Date Tetanus Booster (TDap): Unknown Seasonal Allergies Seasonal Allergies: Yes Past Medical History Surgery/Hospitalization HX: BOWEL RESECTION, COLON CA Surgeries: Yes (CATARACTS; BOWEL SURGERIES--SEE BELOW) Abdominal, Bowel Surgery, Eye Surgery Respiratory: Yes (O2 DEPENDENT AT 2L/NC) COPD Currently Using CPAP: No Currently Using BIPAP: No Cardiac: Yes High Cholesterol, Hypertension Neurological: No Genitourinary: Yes Bladder Infection, Renal Failure Gastrointestinal: Yes (COLON CANCER--S/P COLON RESECTION WITH ILEOSTOMY) Chronic Constipation Musculoskeletal: Yes Arthritis, Chronic Back Pain Endocrine: No HEENT: Yes (cataracts removed, dentures) Hearing Impairment: Hard of Hearing, Bilateral Hearing Aide Cancer: Yes Colon Did You Recieve Any Treatments: Yes What Type of Treatment Did You: Surgical Intervention Psychosocial: No Integumentary: No Blood Disorders: No Family Medical History No Pertinent Family Hx PAST SURGICAL HISTORY: -COLONOSCOPY -11/01/20--PT HAD EXTENDED RIGHT HEMICOLECTOMY WITH SUBSEQUENT ILEOCOLONIC TORSION, WITH ILEOSTOMY, MULTIPLE RESECTIONS AND REVISIONS, DEBRIDEMENTS, DRAINAGE OF INTRA-ABDOMINAL ABSCESSES, AND MESH PLACEMENT. Physical Exam Vital Signs - First Documented 10/30/21 18:00 Temp 36.0 Pulse 117 Resp 22 Pulse Ox 96 O2 Delivery Room Air Capillary Refill : Height: '" Weight: lbs. oz. kg; 30.00 BMI Method: General Appearance: WD/WN, other (DYSPNEIC ON ARRIVAL, WITH MINIMAL EXERTION, BUT AT REST, BREATHING IS NON-LABORED AND ABLE TO TALK IN FULL SENTENCES. . PT DOES NOT APPEAR ILL, ) Respiratory: normal breath sounds, no respiratory distress, no accessory muscle use Cardiovascular: normal peripheral pulses, no edema, no JVD, no murmur, tachycardia Gastrointestinal: non tender, soft, other (ILEOSTOMY IN PLACE IN RLQ) Extremities: normal inspection, no pedal edema, no calf tenderness, normal c apillary refill Neurologic/Psychiatric: it consultant II-XII nml as tested, no motor/sensory deficits, alert, normal mood/affect, oriented x 3 Skin: normal color, warm/dry Focused Exam Sepsis Stage: Ruled Out Reason for ruling out sepsis: PT APPEARS DEHYDRATED, NOT SEPTIC. NORMAL WBC, NO FEVER, NORMAL LACTIC ACID Possible Source: Genitouriary Lactate Level 10/30/21 18:20: Lactic Acid Level 1.99 Time of Focused Exam: 19:45 Respiratory: Normal Breath Sounds, No Accessory Muscle Use, No Respiratory Distress Cardiovascular: No Edema, No Murmur, Tachycardia (HR DOWN TO 100'S) Capillary Refill: Less Than 3 Seconds Skin: normal color, warm/dry Lactic Acid Level Laboratory Tests Test 10/30/21 18:20 Lactic Acid Level 1.99 MMOL/L (0.50-2.00) Within 3hrs of presentation: Admin fluids, Admin ABX, Blood cultures prior to ABX's, Focus exam, Lactate level Procedures/Interventions Date of ETT Placement: Nov 15, 2020 Progress/Results/Core Measures Suspected Sepsis SIRS Temperature: Pulse: Respiratory Rate: Laboratory Tests 10/30/21 18:20: White Blood Count 10.7 Blood Pressure / Mean: 10/30/21 18:20: Lactic Acid Level 1.99 Laboratory Tests 10/30/21 18:20: Creatinine 1.71H, INR Comment 1.1, Platelet Count 328, Total Bilirubin 0.3 Results/Orders Lab Results Laboratory Tests Test 10/30/21 18:15 10/30/21 18:20 10/30/21 19:11 Range/Units Influenza Type A Antigen NEGATIVE NEGATIVE Influenza Type B Antigen NEGATIVE NEGATIVE SARS-CoV-2 RNA (RT-PCR) Negative Negative Group A Streptococcus Screen NEGATIVE NEGATIVE White Blood Count 10.7 4.3-11.0 10^3/uL Red Blood Count 4.18 3.80-5.11 10^6/uL Hemoglobin 14.3 11.5-16.0 g/dL Hematocrit 40 35-52 % Mean Corpuscular Volume 96 80-99 fL Mean Corpuscular Hemoglobin 34 25-34 pg Mean Corpuscular Hemoglobin Concent 36 32-36 g/dL Red Cell Distribution Width 11.9 10.0-14.5 % Platelet Count 328 130-400 10^3/uL Mean Platelet Volume 9.2 9.0-12.2 fL Immature Granulocyte % (Auto) 2 % Neutrophils (%) (Auto) 55 42-75 % Lymphocytes (%) (Auto) 32 12-44 % Monocytes (%) (Auto) 8 0-12 % Eosinophils (%) (Auto) 3 0-10 % Basophils (%) (Auto) 1 0-10 % Neutrophils # (Auto) 5.8 1.8-7.8 10^3/uL Lymphocytes # (Auto) 3.4 1.0-4.0 10^3/uL Monocytes # (Auto) 0.9 0.0-1.0 10^3/uL Eosinophils # (Auto) 0.3 0.0-0.3 10^3/uL Basophils # (Auto) 0.1 0.0-0.1 10^3/uL Immature Granulocyte # (Auto) 0.2 H 0.0-0.1 10^3/uL Erythrocyte Sedimentation Rate 45 H 0-30 MM/HR Prothrombin Time 14.3 12.2-14.7 SEC INR Comment 1.1 0.8-1.4 Activated Partial Thromboplast Time 33 24-35 SEC D-Dimer 1.27 H 0.00-0.49 UG/ML Sodium Level 130 L 135-145 MMOL/L Potassium Level 4.9 3.6-5.0 MMOL/L Chloride Level 97 L 98-107 MMOL/L Carbon Dioxide Level 18 L 21-32 MMOL/L Anion Gap 15 H 5-14 MMOL/L Blood Urea Nitrogen 32 H 7-18 MG/DL Creatinine 1.71 H 0.60-1.30 MG/DL Estimat Glomerular Filtration Rate 29 BUN/Creatinine Ratio 19 Glucose Level 121 H 70-105 MG/DL Lactic Acid Level 1.99 0.50-2.00 MMOL/L Calcium Level 10.0 8.5-10.1 MG/DL Corrected Calcium 8.5-10.1 MG/DL Magnesium Level 1.1 *L 1.6-2.4 MG/DL Total Bilirubin 0.3 0.1-1.0 MG/DL Aspartate Amino Transf (AST/SGOT) 24 5-34 U/L Alanine Aminotransferase (ALT/SGPT) 31 0-55 U/L Alkaline Phosphatase 96 40-136 U/L Lactate Dehydrogenase 229 H 125-220 U/L Troponin I < 0.028 <0.028 NG/ML C-Reactive Protein High Sensitivity 1.07 H 0.00-0.50 MG/DL B-Type Natriuretic Peptide < 10.0 <100.0 PG/ML Total Protein 8.4 H 6.4-8.2 GM/DL Albumin 4.7 H 3.2-4.5 GM/DL Procalcitonin 0.08 <0.10 NG/ML Urine Color YELLOW Urine Clarity CLEAR Urine pH 6.0 5-9 Urine Specific [place] 1.020 1.016-1.022 Urine Protein NEGATIVE NEGATIVE Urine Glucose (UA) NEGATIVE NEGATIVE Urine Ketones NEGATIVE NEGATIVE Urine Nitrite NEGATIVE NEGATIVE Urine Bilirubin NEGATIVE NEGATIVE Urine Urobilinogen 0.2 < = 1.0 MG/DL Urine Leukocyte Esterase TRACE H NEGATIVE Urine RBC (Auto) NEGATIVE NEGATIVE Urine RBC NONE /HPF Urine WBC 5-10 H /HPF Urine Crystals NONE /LPF Urine Bacteria TRACE /HPF Urine Casts NONE /LPF Urine Mucus NEGATIVE /LPF Urine Culture Indicated YES My Orders Orders - MAMTA MORAN DO Covid 19 Inhouse Test (10/30/21 18:06) Influenza A & B Antigens (10/30/21 18:06) Isolation Central Supply Req (10/30/21 18:06) Rapid Strep A Screen (10/30/21 18:18) Cbc With Automated Diff (10/30/21 18:19) Comprehensive Metabolic Panel (10/30/21 18:19) Blood Culture (10/30/21 18:19) Sputum Culture (10/30/21 18:19) Urinalysis (10/30/21 18:19) Urine Culture (10/30/21 18:19) Protime With Inr (10/30/21 18:19) Partial Thromboplastin Time (10/30/21 18:19) Chest 1 View, Ap/Pa Only (10/30/21 18:19) Ed Iv/Invasive Line Start (10/30/21 18:19) Ed Iv/Invasive Line Start (10/30/21 18:19) Ekg Tracing (10/30/21 18:19) Troponin I Abhi (10/30/21 18:19) Vital Signs Adult Sepsis Patie Q15M (10/30/21 18:19) O2 (10/30/21 18:19) Remove Rings In Anticipation O (10/30/21 18:19) Lactic Acid Analyzer (10/30/21 18:19) Lactated Ringers (Lr 1000 Ml Iv Solution (10/30/21 18:30) Fibrin Degradation Products (10/30/21 18:19) Procalcitonin (Pct) (10/30/21 18:19) Hs C Reactive Protein (10/30/21 18:19) Erythrocyte Sedimentation Rate (10/30/21 18:19) LDH (10/30/21 18:19) Bnp Garrett (10/30/21 18:19) Magnesium (10/30/21 18:19) Coronavirus Sars-Cov-2 So 2019 (10/30/21 18:49) Magnesium 1 Gm/100 Ml Ivpb (Magnesium Uribe (10/30/21 19:30) Magnesium Oxide Tablet (Mag Ox Tablet) (10/30/21 19:30) Ceftriaxone 1 Gm Pre-Mix (Rocephin 1 Gm (10/30/21 19:45) Azithromycin Injection (Zithromax Inject (10/30/21 19:45) Lactated Ringers (Lr 1000 Ml Iv Solution (10/30/21 19:56) Magnesium 1 Gm/100 Ml Ivpb (Magnesium Uribe (10/30/21 21:04) Medications Given in ED Current Medications Medications Dose Ordered Sig/Raymond Route Start Time Stop Time Status Last Admin Dose Admin Azithromycin 500 mg/Sodium Chloride 255 ml @ 250 mls/hr ONCE ONCE IV 10/30/21 19:45 10/30/21 20:46 DC 10/30/21 20:20 250 MLS/HR Ceftriaxone Sodium/Dextrose 50 ml @ 100 mls/hr ONCE ONCE IV 10/30/21 19:45 10/30/21 20:14 DC 10/30/21 20:01 100 MLS/HR Lactated Ringer's 3,000 ml @ 3,000 mls/hr PRN ONCE IV 10/30/21 18:30 10/30/21 19:29 DC 10/30/21 18:44 3,000 MLS/HR Magnesium Oxide 1,600 mg ONCE ONCE PO 10/30/21 19:30 10/30/21 19:31 DC 10/30/21 20:04 1,600 MG Vital Signs/I&O 10/30/21 10/30/21 18:00 18:15 Temp 36.0 Pulse 117 Resp 22 B/P (MAP) Pulse Ox 96 O2 Delivery Room Air Room Air Capillary Refill : Progress Note : Progress Note PLACED IN ISOLATION ROOM PPE WORN COVID-19 TESTING PERFORMED COVID-19 AND SEPSIS PROTOCOLS INITIATED GIVEN IV FLUIDS ECG Initial ECG Impression Date: Oct 30, 2021 Initial ECG Impression Time: 18:27 Initial ECG Rate: 120 Initial ECG Rhythm: S.Tach Diagnostic Imaging Comments CXR-- Departure Impression Primary Impression: Dehydration Additional Impressions: UTI (urinary tract infection) Person under investigation for COVID-19 COPD (chronic obstructive pulmonary disease) Acute on chronic renal failure Hypomagnesemia Hyponatremia Bronchitis Disposition: 01 HOME, SELF-CARE Condition: Improved Departure-Patient Inst. Referrals: NO,LOCAL PHYSICIAN (PCP/Family) Primary Care Physician Patient Instructions: Acute Bronchitis, Adult (DC), COPD Exacerbation, Adult ED, COVID-19 Tests, Dehydration, Adult (DC), Low Magnesium Level (DC), Urinary Tract Infection, Adult (DC) Add. Discharge Instructions: CONTINUE YOUR REGULAR MEDICATIONS PRESCRIBED LOTS OF FLUIDS--WATER, BROTH, JELLO, GATORADE--DRINK ENOUGH SO YOU ARE URINATING EVERY 2-3 HOURS WHILE AWAKE TYLENOL NEEDED FOR PAIN OR FEVER OVER THE COUNTER MUCINEX DM FOR COUGH FOLLOW UP WITH YOUR DR IN 2-3 DAYS, RETURN TO ER IF WORSE All discharge instructions reviewed with patient and/or family. Voiced understanding. Scripts Prednisone (Prednisone) 20 Mg Tab 40 MG PO DAILY, #6 TAB 0 Refills Prov: MAMTA MORAN DO 10/30/21 Magnesium Oxide (Magnesium) 400 Mg Tablet 400 MG PO BID, #30 TAB Prov: MAMTA MORAN DO 10/30/21 Cefdinir (Cefdinir) 300 Mg Capsule 300 MG PO BID, #20 CAP Prov: MAMTA MORAN DO 10/30/21 MAMTA MORAN DO Oct 30, 2021 18:19
[2021-10-30] MEDS ORDERED: LACTATED RINGERS 3,000 ML IV ONE (18:30)
[2021-10-30 18:42] LABS: BASOPHILS # (AUTO) 0.1 10^3/uL (0.0-0.1); BASOPHILS % (AUTO) 1 % (0-10); EOSINOPHILS # (AUTO) 0.3 10^3/uL (0.0-0.3); EOSINOPHILS % (AUTO) 3 % (0-10); HEMATOCRIT 40 % (35-52); HEMOGLOBIN 14.3 g/dL (11.5-16.0); LYMPHOCYTES # (AUTO) 3.4 10^3/uL (1.0-4.0); LYMPHOCYTES % (AUTO) 32 % (12-44); MEAN CORPUSCULAR HEMOGLOBIN 34 pg (25-34); MEAN CORPUSCULAR HGB CONC 36 g/dL (32-36); MEAN CORPUSCULAR VOLUME 96 fL (80-99); MEAN PLATELET VOLUME 9.2 fL (9.0-12.2); MONOCYTES # (AUTO) 0.9 10^3/uL (0.0-1.0); MONOCYTES % (AUTO) 8 % (0-12); NEUTROPHILS # (AUTO) 5.8 10^3/uL (1.8-7.8); NEUTROPHILS % (AUTO) 55 % (42-75); PLATELET COUNT 328 10^3/uL (130-400); WHITE BLOOD COUNT 10.7 10^3/uL (4.3-11.0)
[2021-10-30 19:00] LABS: ALBUMIN 4.7 GM/DL (3.2-4.5); CHLORIDE 97 MMOL/L (98-107); FIBRIN DEGRADATION PRODUCTS 1.27 UG/ML (0.00-0.49); INR 1.1 (0.8-1.4); POTASSIUM 4.9 MMOL/L (3.6-5.0); PROTHROMBIN TIME PATIENT 14.3 SEC (12.2-14.7); SODIUM 130 MMOL/L (135-145)
[2021-10-30 19:02] LABS: GLUCOSE 121 MG/DL (70-105); TOTAL PROTEIN 8.4 GM/DL (6.4-8.2)
[2021-10-30 19:03] LABS: CARBON DIOXIDE 18 MMOL/L (21-32)
[2021-10-30 19:04] LABS: BILIRUBIN,TOTAL 0.3 MG/DL (0.1-1.0); ERYTHROCYTE SEDIMENTATION RATE 45 MM/HR (0-30)
[2021-10-30 19:05] LABS: ALKALINE PHOSPHATASE 96 U/L (40-136)
[2021-10-30 19:06] LABS: CREATININE SERUM 1.71 MG/DL (0.60-1.30); GFR ESTIMATED 29
[2021-10-30 19:07] LABS: BUN/CREATININE RATIO 19
[2021-10-30 19:09] LABS: ALANINE AMINOTRANSFERASE 31 U/L (0-55)
[2021-10-30 19:15] LABS: BILIRUBIN,URINE NEGATIVE (NEGATIVE); CLARITY,URINE CLEAR; COLOR,URINE YELLOW; GLUCOSE, URINE (UA) NEGATIVE (NEGATIVE); KETONES,URINE NEGATIVE (NEGATIVE); LEUKOCYTE ESTERASE ,URINE TRACE (NEGATIVE); NITRITE,URINE NEGATIVE (NEGATIVE); PROTEIN,URINE NEGATIVE (NEGATIVE)
--- NOTE | 2021-10-30 19:21 | Diagnostic Imaging Report ---
HISTORY: Cough COMPARISON: 05/25/2021 TECHNIQUE: Frontal view of the chest. FINDINGS: Lung volumes are large and there is flattening of the diaphragm. There is no pleural effusion or pneumothorax. The cardiac silhouette is normal in size. No focal consolidation is seen. There is scarring in the lung apices bilaterally. Left-sided Port-A-Cath tip projects over the SVC. An azygos fissure is noted. IMPRESSION: 1. Findings of chronic obstructive disease with no acute pulmonary abnormality seen. Dictated by: Dictated on workstation # [id number]
[2021-10-30 19:23] LABS: MAGNESIUM 1.1 MG/DL (1.6-2.4)
[2021-10-30] MEDS ORDERED: MAGNESIUM OXIDE (MAG-OX)400 MG TAB PO ONE (19:30)
[2021-10-30 19:35] LABS: BACTERIA,URINE TRACE /HPF
[2021-10-30] MEDS ORDERED: cefTRIAXone 1 GM PRE-MIX 50 ML IV ONE (19:45)
[2021-10-30] MEDS ORDERED: AZITHROMYCIN INJECTION 500 MG in NS (IVPB) 250 ML IV ONE (19:45)
[2021-10-30] MEDS ORDERED: LACTATED RINGERS 1,000 ML IV ONE (19:56)
[2021-10-30] MEDS: MAGNESIUM 1 GM/100 ML IVPB 100 ML IV SCH ×2 (20:19→21:09)
[2021-10-30] MEDS ORDERED: MAGNESIUM 1 GM/100 ML IVPB 0 ML IV ONE (21:04)
[2021-10-30] MEDS ORDERED: MAGN400T39 PO (21:29)
[2021-10-30] MEDS ORDERED: PRD20T PO (21:29)
[2021-10-30] MEDS ORDERED: CEFD300C3 PO (21:29)
[2021-10-30 22:25] VITALS: BP 162/79
== END 2021-10-30 22:25 | disposition home or self-care (01) ==
LOC: EDUNIT# 17:57 → ER 17:59
DX: E86.0 Dehydration (principal); N39.0 Urinary tract infection, site not specified; J44.9 Chronic obstructive pulmonary disease, unspecified; E83.42 Hypomagnesemia; E87.1 Hypo-osmolality and hyponatremia; N17.9 Acute kidney failure, unspecified; I12.9 Hypertensive chronic kidney disease with stage 1 through stage 4 chronic kidney disease, or unspecified chronic kidney disease; N18.9 Chronic kidney disease, unspecified; F17.210 Nicotine dependence, cigarettes, uncomplicated; Z20.822 Contact with and (suspected) exposure to COVID-19
CPT/HCPCS: 36415; 71045; 80053; 81000; 83605; 83615; 83735; 83880; 84145; 84484; 85025; 85379; 85610; 85652; 85730; 86141; 87040; 87088; 87430; 87635; 87636; 87804; 93005; 96365; 96366; 96367; 96368; 96375

== ENCOUNTER 2021-11-14 15:54 | Emergency (ER) | payer MEDICARE ==
[~2021-11-14] VITALS: Ht 157.5 cm; Wt 76.7 kg
[~2021-11-14 15:54] MED LIST changes: +CEFD300C3 PO; -PHEN120L2 MC; +PRD20T PO; +[UNRECOGNIZED DRUG - CODE] MC
--- NOTE | 2021-11-14 16:42 | ED GI ---
General Chief Complaint: General Problems/Pain Stated Complaint: SOB, DIARRHEA Nursing Triage Note: PT TO RM 8 VIA WC W REPORTS OF SOA W EXERTION, DIARRHEA, AND STOMA PAIN SX THIS AM. PT A&OX4, WEARS 2L HOME O2 AT ALL TIMES. Source of Information: Patient Exam Limitations: No Limitations History of Present Illness Date Seen by Provider: Nov 14, 2021 Time Seen by Provider: 16:13 Initial Comments Patient to ER by private conveyance with chief complaint she is having loose watery stools from stoma since about 10 this morning. Is been going off and on for the past several weeks. She is under surveillance for bowel cancer status post resection a year ago by Dr. Bloom and Dr. Lynch. She is not on chemotherapy. She is not having any pain fevers chills. She does endorse a little nausea but no vomiting. She has had no stool studies done. She had a CT of her abdomen and pelvis 1 month ago which did not show any recurrence of cancer. She does have a little nodule in her lungs being watched. She is a COPD patient who uses 2 L oxygen at all times. She feels a little more short of breath than usual. She took 1 dose of Pepto-Bismol today and says it did not help. Allergies and Home Medications Allergies Coded Allergies: Penicillins (Verified Allergy, Unknown, Anaphylaxis, 09/26/20) budesonide (Verified Allergy, Unknown, Nausea, PT USES TRELEGY, 12/20/20) formoterol (Verified Allergy, Unknown, Nausea, 09/26/20) midazolam (Verified Allergy, Unknown, Anaphylaxis, pt has rec Lorazepam & alprazolam in the past, 02/04/21) Has received Lorazepam & alprazolam without issue Patient Home Medication List Home Medication List Reviewed: Yes Ascorbate Calcium (Vitamin C) 500 Mg Tablet, 500 MG PO DAILY, (Reported) Entered as Reported by: VICKI CARDOSO on 08/11/21 153 Cefdinir (Cefdinir) 300 Mg Capsule, 300 MG PO BID Prescribed by: MAMTA MORAN on 10/30/212128 Docusate Sodium (Stool Softener) 100 Mg Tablet, 100-200 MG PO BID PRN for CONSTIPATION-1ST LINE, (Reported) Entered as Reported by: VICKI CARDOSO on 08/11/21 1531 Fluticasone/Umeclidin/Vilanter (Trelegy Ellipta 100-62.5-25) 1 Each Blst.w.dev, 1 EACH IH DAILY, (Reported) Entered as Reported by: VICKI CARDOSO on 08/11/211530 Magnesium Oxide (Magnesium) 400 Mg Tablet, 400 MG PO BID Prescribed by: MAMTA MORAN on 10/30/212128 Metoprolol Tartrate (Metoprolol Tartrate) 25 Mg Tablet, 25 MG PO DAILY Prescribed by: ALICIA FULTON on 08/12/21 1035 Multivitamin/Iron/Folic Acid (Multivitamin with Iron Tablet) 1 Each Tablet, 1 EACH PO DAILY, (Reported) Entered as Reported by: VICKI CARDOSO on 08/11/211530 Pantoprazole Sodium (Pantoprazole Sodium) 40 Mg Tablet.dr, 40 MG PO BID, (Reported) Entered as Reported by: VICKI CARDOSO on 08/11/211530 Prednisone (Prednisone) 20 Mg Tab, 40 MG PO DAILY Prescribed by: MAMTA MORAN on 10/30/212128 Sodium Chloride (Sodium Chloride) 1 Gm Tab, 1 GM PO DAILY, (Reported) Entered as Reported by: VICKI CARDOSO on 08/11/211530 Review of Systems Review of Systems Constitutional: No chills, No diaphoresis, No fever; malaise EENTM: No Blurred Vision, No Double Vision Respiratory: Denies Cough, Denies Shortness of Air Cardiovascular: Denies Chest Pain, Denies Lightheadedness Gastrointestinal: Denies Abdomen Distended, Denies Abdominal Pain, Denies Constipated; Diarrhea, Nausea; Denies Vomiting Genitourinary: Denies Burning, Denies Discharge Musculoskeletal: No back pain, No joint pain Skin: No pruritus, No rash Psychiatric/Neurological: Denies Headache, Denies Numbness All Other Systems Reviewed Negative Unless Noted: Yes Past Dlhzhdy-Vcxpyp-Gnxjnh Hx Patient Social History Tobacco Use?: Yes Tobacco type used: Cigarettes Smoking Status: Current Everyday Smoker Use of E-Cig and/or Vaping dev: No Substance use?: No Alcohol Use?: No Immunizations Up To Date Tetanus Booster (TDap): Unknown Influenza Vaccine Up-to-Date: No; Not Current First/Initial COVID19 Vaccinat: NONE Second COVID19 Vaccination Sammy: NONE Third COVID19 Vaccination Date: NONE COVID19 Vaccine Experience Designer: NONE Seasonal Allergies Seasonal Allergies: Yes Past Medical History Surgery/Hospitalization HX: BOWEL RESECTION, COLON CA Surgeries: Yes (CATARACTS; BOWEL SURGERIES--SEE BELOW) Abdominal, Bowel Surgery, Eye Surgery Respiratory: Yes (O2 DEPENDENT AT 2L/NC) COPD Currently Using CPAP: No Currently Using BIPAP: No Cardiac: Yes High Cholesterol, Hypertension Neurological: No Genitourinary: Yes Bladder Infection, Renal Failure Gastrointestinal: Yes (COLON CANCER--S/P COLON RESECTION WITH ILEOSTOMY) Chronic Constipation Musculoskeletal: Yes Arthritis, Chronic Back Pain Endocrine: No HEENT: Yes (cataracts removed, dentures) Hearing Impairment: Hard of Hearing, Bilateral Hearing Aide Cancer: Yes Colon Did You Recieve Any Treatments: Yes What Type of Treatment Did You: Surgical Intervention Psychosocial: No Integumentary: No Blood Disorders: No Family Medical History No Pertinent Family Hx PAST SURGICAL HISTORY: -COLONOSCOPY -11/01/20--PT HAD EXTENDED RIGHT HEMICOLECTOMY WITH SUBSEQUENT ILEOCOLONIC TORSION, WITH ILEOSTOMY, MULTIPLE RESECTIONS AND REVISIONS, DEBRIDEMENTS, DRAINAGE OF INTRA-ABDOMINAL ABSCESSES, AND MESH PLACEMENT. Physical Exam Vital Signs Vital Signs - First Documented 11/14/21 16:05 Temp 36.9 Pulse 124 Resp 30 B/P (MAP) 190/84 (119) Pulse Ox 95 O2 Delivery Nasal Cannula O2 Flow Rate 2.00 Capillary Refill : Less Than 3 Seconds Height/Weight/BMI Height: '" Weight: lbs. oz. kg; 30.00 BMI Method: General Appearance: WD/WN, no apparent distress HEENT: PERRL/EOMI, TMs normal, pharynx normal Neck: full range of motion, supple, normal inspection Respiratory: lungs clear, normal breath sounds, no respiratory distress, no accessory muscle use Cardiovascular: normal peripheral pulses, regular rate, rhythm Peripheral Pulses: 2+ Radial Pulses (R), 2+ Radial Pulses (L) Gastrointestinal: normal bowel sounds, non tender, soft, other (Left-sided colostomy) Extremities: normal range of motion, non-tender, normal inspection, normal capillary refill Neurologic/Psychiatric: alert, normal mood/affect, oriented x 3 Skin: normal color, warm/dry Procedures/Interventions Date of ETT Placement: Nov 15, 2020 Progress/Results/Core Measures Results/Orders Lab Results Laboratory Tests Test 11/14/21 16:10 11/14/21 16:38 11/14/21 17:38 Range/Units White Blood Count 10.7 4.3-11.0 10^3/uL Red Blood Count 3.65 L 3.80-5.11 10^6/uL Hemoglobin 12.5 11.5-16.0 g/dL Hematocrit 35 35-52 % Mean Corpuscular Volume 96 80-99 fL Mean Corpuscular Hemoglobin 34 25-34 pg Mean Corpuscular Hemoglobin Concent 36 32-36 g/dL Red Cell Distribution Width 11.9 10.0-14.5 % Platelet Count 259 130-400 10^3/uL Mean Platelet Volume 9.1 9.0-12.2 fL Immature Granulocyte % (Auto) 1 % Neutrophils (%) (Auto) 63 42-75 % Lymphocytes (%) (Auto) 27 12-44 % Monocytes (%) (Auto) 7 0-12 % Eosinophils (%) (Auto) 2 0-10 % Basophils (%) (Auto) 1 0-10 % Neutrophils # (Auto) 6.7 1.8-7.8 10^3/uL Lymphocytes # (Auto) 2.9 1.0-4.0 10^3/uL Monocytes # (Auto) 0.7 0.0-1.0 10^3/uL Eosinophils # (Auto) 0.2 0.0-0.3 10^3/uL Basophils # (Auto) 0.1 0.0-0.1 10^3/uL Immature Granulocyte # (Auto) 0.1 0.0-0.1 10^3/uL Sodium Level 130 L 135-145 MMOL/L Potassium Level 4.2 3.6-5.0 MMOL/L Chloride Level 95 L 98-107 MMOL/L Carbon Dioxide Level 23 21-32 MMOL/L Anion Gap 12 5-14 MMOL/L Blood Urea Nitrogen 11 7-18 MG/DL Creatinine 0.85 0.60-1.30 MG/DL Estimat Glomerular Filtration Rate 71 BUN/Creatinine Ratio 13 Glucose Level 129 H 70-105 MG/DL Calcium Level 9.8 8.5-10.1 MG/DL Corrected Calcium 9.4 8.5-10.1 MG/DL Total Bilirubin 0.3 0.1-1.0 MG/DL Aspartate Amino Transf (AST/SGOT) 21 5-34 U/L Alanine Aminotransferase (ALT/SGPT) 28 0-55 U/L Alkaline Phosphatase 77 40-136 U/L C-Reactive Protein High Sensitivity 0.37 0.00-0.50 MG/DL Total Protein 7.6 6.4-8.2 GM/DL Albumin 4.5 3.2-4.5 GM/DL Influenza Type A (RT-PCR) Not Detected Not Detecte Influenza Type B (RT-PCR) Not Detected Not Detecte SARS-CoV-2 RNA (RT-PCR) Not Detected Not Detecte Blood Gas Puncture Site LRAD Blood Gas Patient Temperature 36.9 Arterial Blood pH 7.38 7.37-7.43 Arterial Blood Partial Pressure CO2 38 35-45 MMHG Arterial Blood Partial Pressure O2 92 79-93 MMHG Arterial Blood HCO3 22 L 23-27 MMOL/L Arterial Blood Total CO2 23.0 21.0-31.0 MMOL/L Arterial Blood Oxygen Saturation 98 94-100 % Arterial Blood Base Excess -2.5 -2.5-2.5 MMOL/L Adi Test POS Blood Gas Ventilator Setting NO Blood Gas Inspired Oxygen 2L Urine Color YELLOW Urine Clarity CLEAR Urine pH 6.0 5-9 Urine Specific [place] 1.010 L 1.016-1.022 Urine Protein NEGATIVE NEGATIVE Urine Glucose (UA) NEGATIVE NEGATIVE Urine Ketones NEGATIVE NEGATIVE Urine Nitrite NEGATIVE NEGATIVE Urine Bilirubin NEGATIVE NEGATIVE Urine Urobilinogen 0.2 < = 1.0 MG/DL Urine Leukocyte Esterase NEGATIVE NEGATIVE Urine RBC (Auto) NEGATIVE NEGATIVE Urine RBC NONE /HPF Urine WBC 0-2 /HPF Urine Squamous Epithelial Cells 0-2 /HPF Urine Crystals NONE /LPF Urine Bacteria NEGATIVE /HPF Urine Casts NONE /LPF Urine Mucus NEGATIVE /LPF Urine Culture Indicated NO My Orders Orders - PINKY BULLOCK Arterial Blood Gas (11/14/21 16:36) Cbc With Automated Diff (11/14/21 16:36) Comprehensive Metabolic Panel (11/14/21 16:36) Hs C Reactive Protein (11/14/21 16:36) Stool Culture (11/14/21 16:36) Fecal Wbc (11/14/21 16:36) Ed Iv/Invasive Line Start (11/14/21 16:36) Ns Iv 1000 Ml (Sodium Chloride 0.9%) (11/14/21 16:45) Ua Culture If Indicated (11/14/21 16:36) Ondansetron Injection (Zofran Injectio (11/14/21 16:45) Covid 19 Inhouse Test (11/14/21 16:42) Ct Abdomen/Pelvis W (11/14/21 16:47) Influenza A And B By Pcr (11/14/21 16:10) Iohexol Injection (Omnipaque 350 Mg/Ml 1 (11/14/21 17:15) Received Contrast (Hold Metformin- Contr (11/14/21 17:15) Ns (Ivpb) (Sodium Chloride 0.9% Ivpb Bag (11/14/21 17:15) Medications Given in ED Current Medications Medications Dose Ordered Sig/Raymond Route Start Time Stop Time Status Last Admin Dose Admin Iohexol 100 ml ONCE ONCE IV 11/14/21 17:15 11/14/21 17:16 DC 11/14/21 17:54 100 ML Ondansetron HCl 4 mg ONCE ONCE IVP 11/14/21 16:45 11/14/21 16:46 DC 11/14/21 16:47 4 MG Sodium Chloride 100 ml ONCE ONCE IV 11/14/21 17:15 11/14/21 17:16 DC 11/14/21 17:54 80 ML Vital Signs/I&O 11/14/21 16:05 Temp 36.9 Pulse 124 Resp 30 B/P (MAP) 190/84 (119) Pulse Ox 95 O2 Delivery Nasal Cannula O2 Flow Rate 2.00 Blood Pressure Mean: 119 Progress Progress Note : Time: 16:44 Progress Note Patient diarrhea started today but is been going off and on for the last several months so we will do a stool culture white blood cells and I give her a liter of fluids, nausea medicine. Is not having any pain. Going get a CT of her abdomen pelvis to rule out ileitis colitis etc. Diagnostic Imaging Diagonstic Imaging: CT Plain Films/CT/US/NM/MRI: abdomen, pelvis Comments [facility]. [place], [place] NAME: GABO [facility]VER[facility] REC#: [id number] PT STATUS: REG ER : 1945 PHYSICIAN: PINKY BULLOCK MD ADMIT DATE: 11/14/21/ER Signed Date of Exam:11/14/21 CT ABDOMEN/PELVIS W PROCEDURE: CT abdomen and pelvis with contrast. TECHNIQUE: Multiple contiguous axial images were obtained through the abdomen and pelvis after administration of intravenous contrast. Auto Exposure Controls were utilized during the CT exam to meet ALARA standards for radiation dose reduction. All CT scans use one or more of the following dose optimizing techniques: automated exposure control, MA and/or KvP adjustment based on patient size and exam type or iterative reconstruction. INDICATION: Exertional shortness of air, diarrhea, pain. COMPARISON: 10/23/2021. FINDINGS: Herniation and left anterior abdominal wall defect, chronic. No resultant bowel, biliary or urinary tract obstruction. There is fatty infiltration of the liver with no acute biliary pathology. No liver mass. Spleen, adrenals and pancreas are nonacute. No pneumatosis. No free gas. Urinary bladder unremarkable. The uterus and adnexa are unremarkable. There is noninflamed diverticulosis of the sigmoid. There are nonaneurysmal atherosclerotic vascular calcifications, chronic. There has been no change from prior. IMPRESSION: Stable chronic findings. No acute appearing abnormality or interval change. Dictated by: Dictated on workstation # [id number] Dict: 11/14/21 180 Trans: 11/14/21 183 [facility] [id number] Interpreted by: TASIA WISE Electronically signed by: TASIA WISE 11/14/211831 Reviewed: Reviewed by Me Departure Impression Primary Impression: Gastroenteritis/colitis, infectious Disposition: HOME, SELF-CARE Condition: Stable Departure-Patient Inst. Decision time for Depature: 18:52 Referrals: NO,LOCAL PHYSICIAN (PCP/Family) Primary Care Physician Patient Instructions: Diarrhea, Adult ED Add. Discharge Instructions: We have collected a sample of your stool to send to the lab. We should have results in about 2 to 3 days. We will call you if you need to start antibiotics. Use the Pepto-Bismol as described. Loperamide 2 tablets at first and every 4 hours afterwards if you still are having a watery stool from your stoma take another tablet until it turns to soft stool. Drink lots of fluids. Sports drinks are encouraged. If you cannot keep up with your fluid intake or having severe pain, fever above 102.5 or other worrisome symptoms then I would encourage you to return to the nearest ER. Zofran 1 tablet every 6 hours as needed for nausea or vomiting. All discharge instructions reviewed with patient and/or family. Voiced understanding. Scripts Ondansetron (Ondansetron Odt) 4 Mg Tab.rapdis 4 MG PO Q6H PRN for NAUSEA/VOMITING, #8 TAB 0 Refills Prov: PINKY BULLOCK 11/14/21 PINKY BULLOCK Nov 14, 2021 16:42
[2021-11-14 16:45] LABS: BASOPHILS # (AUTO) 0.1 10^3/uL (0.0-0.1); BASOPHILS % (AUTO) 1 % (0-10); EOSINOPHILS # (AUTO) 0.2 10^3/uL (0.0-0.3); EOSINOPHILS % (AUTO) 2 % (0-10); HEMATOCRIT 35 % (35-52); HEMOGLOBIN 12.5 g/dL (11.5-16.0); LYMPHOCYTES # (AUTO) 2.9 10^3/uL (1.0-4.0); LYMPHOCYTES % (AUTO) 27 % (12-44); MEAN CORPUSCULAR HEMOGLOBIN 34 pg (25-34); MEAN CORPUSCULAR HGB CONC 36 g/dL (32-36); MEAN CORPUSCULAR VOLUME 96 fL (80-99); MEAN PLATELET VOLUME 9.1 fL (9.0-12.2); MONOCYTES # (AUTO) 0.7 10^3/uL (0.0-1.0); MONOCYTES % (AUTO) 7 % (0-12); NEUTROPHILS # (AUTO) 6.7 10^3/uL (1.8-7.8); NEUTROPHILS % (AUTO) 63 % (42-75); PLATELET COUNT 259 10^3/uL (130-400); WHITE BLOOD COUNT 10.7 10^3/uL (4.3-11.0)
[2021-11-14] MEDS ORDERED: ONDANSETRON 4 MG/2 ML (SDV) Z0FRAN IVP ONE (16:45)
[2021-11-14] MEDS ORDERED: NS IV 1000 ML 1,000 ML IV SCH (16:45)
[2021-11-14 16:58] LABS: ABG BASE EXCESS -2.5 MMOL/L (-2.5-2.5); ABG OXYGEN SATURATION 98 % (94-100); ABG PCO2 38 MMHG (35-45); ABG PH 7.38 (7.37-7.43); ABG PO2 92 MMHG (79-93)
[2021-11-14 16:59] LABS: ALBUMIN 4.5 GM/DL (3.2-4.5); POTASSIUM 4.2 MMOL/L (3.6-5.0)
[2021-11-14 17:00] LABS: CALCIUM 9.8 MG/DL (8.5-10.1)
[2021-11-14 17:01] LABS: TOTAL PROTEIN 7.6 GM/DL (6.4-8.2)
[2021-11-14 17:03] LABS: BILIRUBIN,TOTAL 0.3 MG/DL (0.1-1.0)
[2021-11-14 17:05] LABS: CREATININE SERUM 0.85 MG/DL (0.60-1.30)
[2021-11-14 17:11] LABS: ALLENS TEST POS; INSPIRED O2 2L; PATIENT TEMP 36.9; VENTILATOR NO
[2021-11-14] MEDS ORDERED: HOLD METFORMIN - RECEIVED CONTRAST 20 ML VIAL IV SCH (17:15)
[2021-11-14] MEDS ORDERED: NS 100 ML (IVPB) BAG IV ONE (17:15)
[2021-11-14] MEDS ORDERED: IOHEXOL 350 MG/ML 100 ML (OMNIPAQUE 350) VIAL IV ONE (17:15)
[2021-11-14 17:57] LABS: BILIRUBIN,URINE NEGATIVE (NEGATIVE); CLARITY,URINE CLEAR; COLOR,URINE YELLOW; GLUCOSE, URINE (UA) NEGATIVE (NEGATIVE); KETONES,URINE NEGATIVE (NEGATIVE); LEUKOCYTE ESTERASE ,URINE NEGATIVE (NEGATIVE); NITRITE,URINE NEGATIVE (NEGATIVE); PROTEIN,URINE NEGATIVE (NEGATIVE)
[2021-11-14 18:07] LABS: BACTERIA,URINE NEGATIVE /HPF; SQUAMOUS EPITHELIAL CELL,UR 0-2 /HPF; WBC,URINE 0-2 /HPF
--- NOTE | 2021-11-14 18:26 | Diagnostic Imaging Report ---
PROCEDURE: CT abdomen and pelvis with contrast. TECHNIQUE: Multiple contiguous axial images were obtained through the abdomen and pelvis after administration of intravenous contrast. Auto Exposure Controls were utilized during the CT exam to meet ALARA standards for radiation dose reduction. All CT scans use one or more of the following dose optimizing techniques: automated exposure control, MA and/or KvP adjustment based on patient size and exam type or iterative reconstruction. INDICATION: Exertional shortness of air, diarrhea, pain. COMPARISON: 10/23/2021. FINDINGS: Herniation and left anterior abdominal wall defect, chronic. No resultant bowel, biliary or urinary tract obstruction. There is fatty infiltration of the liver with no acute biliary pathology. No liver mass. Spleen, adrenals and pancreas are nonacute. No pneumatosis. No free gas. Urinary bladder unremarkable. The uterus and adnexa are unremarkable. There is noninflamed diverticulosis of the sigmoid. There are nonaneurysmal atherosclerotic vascular calcifications, chronic. There has been no change from prior. IMPRESSION: Stable chronic findings. No acute appearing abnormality or interval change. Dictated by: Dictated on workstation # [id number]
[2021-11-14] MEDS ORDERED: ONDA4TAB11 PO (18:54)
[2021-11-14 19:37] VITALS: BP 145/74
== END 2021-11-14 19:37 | disposition home or self-care (01) ==
LOC: EDUNIT# 15:54 → ER 15:56
DX: K52.9 Noninfective gastroenteritis and colitis, unspecified (principal); J44.9 Chronic obstructive pulmonary disease, unspecified; I10 Essential (primary) hypertension; F17.210 Nicotine dependence, cigarettes, uncomplicated; Z20.822 Contact with and (suspected) exposure to COVID-19
CPT/HCPCS: 36415; 74177; 80053; 81000; 82805; 85025; 86141; 87015; 87045; 87046; 87636; 87899; 96361; 96374

== ENCOUNTER 2021-11-17 16:03 | Emergency (ER) | payer MEDICARE ==
[~2021-11-17] VITALS: Ht 157.5 cm; Wt 76.7 kg
--- NOTE | 2021-11-17 16:46 | ED General ---
General Chief Complaint: General Problems/Pain Stated Complaint: WEAKNESS, SOB Source of Information: Patient Exam Limitations: No Limitations (MADI HAYWARD MED STUDENT) History of Present Illness Date Seen by Provider: Nov 17, 2021 Time Seen by Provider: 16:30 Initial Comments Patient is a 76-year-old female with a history of metastatic colon cancer status post hemicolectomy and radiation, hypertension, COPD with chronic respiratory failure who presents to ED with CC of SOA and weakness. She was in the ED 3 days ago with diarrhea and tested negative for covid and influenza at that time. Since then, her diarrhea has subsided but she has had worsening SOA since Wednesday. She has been wearing O2 at home since last Wednesday but says that she has not been using it much prior to then. She denies chest pain, fever, N/V, sore throat, dysuria, hematuria and congestion. She has a mild headache. Patient states that she feels weak and unusually hungry and thirsty. Patient is not vaccinated against Covid and does not know of any sick contacts. Her O2 was 95% on room air upon ambulating into room. Her sister is here with her and they live together. Patient states "I just know something is not right". Timing/Duration: 3-4 Days Associated Systoms: Shortness of Air (MADI HAYWARD MED STUDENT) PCP: WAS DR. TABOR, WHO RECENTLY LEFT THE PRACTICE AND WILL START SEEING DR. CONTEH, ALSO SEES MASTER POLICE DETECTIVE THERE. (MAMTA RAMSEY DO) Allergies and Home Medications Allergies Coded Allergies: Penicillins (Verified Allergy, Unknown, Anaphylaxis, 09/26/20) budesonide (Verified Allergy, Unknown, Nausea, PT USES TRELEGY, 12/20/20) formoterol (Verified Allergy, Unknown, Nausea, 09/26/20) midazolam (Verified Allergy, Unknown, Anaphylaxis, pt has rec Lorazepam & alprazolam in the past, 02/04/21) Has received Lorazepam & alprazolam without issue Patient Home Medication List Home Medication List Reviewed: Yes (MAMTA RAMSEY DO) Ascorbate Calcium (Vitamin C) 500 Mg Tablet, 500 MG PO DAILY, (Reported) Entered as Reported by: VICKI CARDOSO on 08/11/21 1531 Cefdinir (Cefdinir) 300 Mg Capsule, 300 MG PO BID Prescribed by: MAMTA RAMSEY on 10/30/212128 Docusate Sodium (Stool Softener) 100 Mg Tablet, 100-200 MG PO BID PRN for CONSTIPATION-1ST LINE, (Reported) Entered as Reported by: VICKI CARDOSO on 08/11/21 153 Fluticasone/Umeclidin/Vilanter (Trelegy Ellipta 100-62.5-25) 1 Each Blst.w.dev, 1 EACH IH DAILY, (Reported) Entered as Reported by: VICKI CARDOSO on 08/11/21 153 Magnesium Oxide (Magnesium) 400 Mg Tablet, 400 MG PO BID Prescribed by: MAMTA RAMSEY on 10/30/212128 Methylprednisolone (Medrol) 4 Mg Tab.ds.pk, 4 MG PO UD Prescribed by: MAMTA RAMSEY on 11/17/211927 Metoprolol Tartrate (Metoprolol Tartrate) 25 Mg Tablet, 25 MG PO DAILY Prescribed by: ALICIA FULTON on 08/12/21 1035 Multivitamin/Iron/Folic Acid (Multivitamin with Iron Tablet) 1 Each Tablet, 1 EACH PO DAILY, (Reported) Entered as Reported by: VICKI CARDOSO on 08/11/211530 Ondansetron (Ondansetron Odt) 4 Mg Tab.rapdis, 4 MG PO Q6H PRN for NAUSEA/VOMITI NG Prescribed by: PINKY BULLOCK on 11/14/21 185 Pantoprazole Sodium (Pantoprazole Sodium) 40 Mg Tablet.dr, 40 MG PO BID, (Reported) Entered as Reported by: VICKI CARDOSO on 08/11/211530 Prednisone (Prednisone) 20 Mg Tab, 40 MG PO DAILY Prescribed by: MAMTA RAMSEY on 10/30/212128 Sodium Chloride (Sodium Chloride) 1 Gm Tab, 1 GM PO DAILY, (Reported) Entered as Reported by: VICKI CARDOSO on 08/11/211530 Review of Systems Review of Systems Constitutional: No chills, No diaphoresis, No dizziness, No fever; weakness EENTM: No blurred vision, No nose congestion, No throat swelling Respiratory: No cough; short of breath Cardiovascular: No chest pain, No edema, No Hx of Intervention Gastrointestinal: No abdominal pain, No diarrhea, No heartburn, No loss of appetite, No nausea, No vomiting Genitourinary: No dysuria, No frequency, No hematuria Musculoskeletal: No back pain, No muscle stiffness Skin: No rash Psychiatric/Neurological: Denies No Symptoms Reported Hematologic/Lymphatic: Denies No Symptoms Reported Immunological/Allergic: denies no symptoms reported (KATERINASpanlink CommunicationsCeciliaMotobuykers ROHAN) Past Zamqmiy-Wpcuyg-Cpblys Hx Patient Social History Tobacco Use?: Yes (SMOKES AT LEAST 1 PPD) Tobacco type used: Cigarettes Smoking Status: Current Everyday Smoker Substance use?: No Alcohol Use?: No (MAMTA RAMSEY DO) Immunizations Up To Date Tetanus Booster (TDap): Unknown First/Initial COVID19 Vaccinat: NONE Second COVID19 Vaccination Sammy: NONE Third COVID19 Vaccination Date: NONE (KATERINAStylechiDUNGMADI FeedBurner ROHAN) Seasonal Allergies Seasonal Allergies: Yes (KATERINASpanlink CommunicationsCeciliaNTE Energy) Seasonal Allergies: Yes (MAMTA RAMSEY DO) Past Medical History Surgery/Hospitalization HX: BOWEL RESECTION, COLON CA Surgeries: Yes (CATARACTS; BOWEL SURGERIES--SEE BELOW) Abdominal, Bowel Surgery, Eye Surgery Respiratory: Yes (O2 DEPENDENT AT 2L/NC) COPD Currently Using CPAP: No Currently Using BIPAP: No Cardiac: Yes High Cholesterol, Hypertension Neurological: No Genitourinary: Yes Bladder Infection, Renal Failure Gastrointestinal: Yes (COLON CANCER--S/P COLON RESECTION WITH ILEOSTOMY) Chronic Constipation Musculoskeletal: Yes Arthritis, Chronic Back Pain Endocrine: No HEENT: Yes (cataracts removed, dentures) Hearing Impairment: Hard of Hearing, Bilateral Hearing Aide Cancer: Yes Colon Did You Recieve Any Treatments: Yes What Type of Treatment Did You: Surgical Intervention Psychosocial: No Integumentary: No Blood Disorders: No (KATERINASpanlink CommunicationsCeciliaMotobuykers STUDENT) Surgeries: Yes (SEE BELOW) Abdominal, Eye Surgery, Tonsillectomy Respiratory: Yes (O2 DEPENDENT AT 2-3/NC CONTINUOUSLY) COPD Currently Using CPAP: No Currently Using BIPAP: No Cardiac: Yes High Cholesterol, Hypertension Neurological: No APPLIQUER History: Menopausal Genitourinary: No Gastrointestinal: Yes (COLON CANCER) Gastroesophageal Reflux, Chronic Constipation Musculoskeletal: Yes Arthritis, Chronic Back Pain Endocrine: Yes (LOW MAGNESIUM LEVEL) HEENT: Yes (CATARACTS REMOVED; DENTURES) Cataract Cancer: Yes Colon Did You Recieve Any Treatments: Yes What Type of Treatment Did You: Radiation, Surgical Intervention SEE BELOW Psychosocial: Yes Anxiety Integumentary: No Blood Disorders: No (MAMTA RAMSEY DO) Family Medical History No Pertinent Family Hx PAST SURGICAL HISTORY: -COLONOSCOPY -11/01/20--PT HAD EXTENDED RIGHT HEMICOLECTOMY WITH SUBSEQUENT ILEOCOLONIC TORSION, WITH ILEOSTOMY, MULTIPLE RESECTIONS AND REVISIONS, DEBRIDEMENTS, DRAINAGE OF INTRA-ABDOMINAL ABSCESSES, AND MESH PLACEMENT. (MADI HAYWARD) PAST SURGICAL HISTORY: -TONSILLECTOMY -BILATERAL CATARACT SURGERY -COLONOSCOPY -PORT LEFT CHEST -11/01/20--HAD EXTENDED RIGHT HEMICOLECTOMY WITH SUBSEQUENT ILEOCOLONIC TORSION, WITH PERMANENT ILEOSTOMY; MULTIPLE RESECTIONS AND REVISIONS, DEBRIDEMENTS AND DRAINAGE OF INTRA-ABDOMINAL ABSCESSES AND MESH PLACEMENT. HAS HAD MULTPLE EPISODES OF SEPSIS AND GENERALIZED DECONDITIONING AND REQUIRED INPATIENT REHAB STAYS AFTER EACH ADMIT. MULTIPLE VISITS SINCE FIRST VISIT HERE 10/31/20 (MAMTA RAMSEY DO) Physical Exam Vital Signs Vital Signs - First Documented (VENUS BORRERO MD) Vital Signs Capillary Refill : (MADI HAYWARD STUDENT) Height, Weight, BMI Height: '" Weight: lbs. oz. kg; 30.00 BMI Method: General Appearance: No Apparent Distress, WD/WN HEENT: PERRL/EOMI, Pharynx Normal, Moist Mucous Membranes; No Tonsillar Exudate Neck: Full Range of Motion, Normal Inspection, Non Tender Respiratory: Chest Non Tender, Lungs Clear, No Respiratory Distress Cardiovascular: No Edema, No JVD, Normal Peripheral Pulses, Tachycardia Gastrointestinal: Normal Bowel Sounds, Non Tender, Soft, Other (ileostomy in place, no surrounding erythema) Back: Normal Inspection, No CVA Tenderness, No Vertebral Tenderness Extremity: Normal Capillary Refill, Normal Inspection, Non Tender, No Calf Tenderness, No Pedal Edema Neurologic/Psychiatric: Alert, Oriented x3, No Motor/Sensory Deficits, Normal Mood/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, 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 Norm as Tested Skin: Normal Color, Warm/Dry Lymphatic: No Adenopathy (MADI HAYWARD) Procedures/Interventions Date of ETT Placement: Nov 15, 2020 (MADI HAYWARD) Progress/Results/Core Measures Suspected Sepsis SIRS Temperature: Pulse: Respiratory Rate: Blood Pressure / Mean: (MADI HAYWARD MED STUDENT) Results/Orders Lab Results Laboratory Tests Test 11/17/21 16:32 11/17/21 16:40 Range/Units White Blood Count 9.6 4.3-11.0 10^3/uL Red Blood Count 3.62 L 3.80-5.11 10^6/uL Hemoglobin 12.2 11.5-16.0 g/dL Hematocrit 35 35-52 % Mean Corpuscular Volume 98 80-99 fL Mean Corpuscular Hemoglobin 34 25-34 pg Mean Corpuscular Hemoglobin Concent 35 32-36 g/dL Red Cell Distribution Width 12.0 10.0-14.5 % Platelet Count 256 130-400 10^3/uL Mean Platelet Volume 9.2 9.0-12.2 fL Immature Granulocyte % (Auto) 1 % Neutrophils (%) (Auto) 68 42-75 % Lymphocytes (%) (Auto) 22 12-44 % Monocytes (%) (Auto) 8 0-12 % Eosinophils (%) (Auto) 1 0-10 % Basophils (%) (Auto) 1 0-10 % Neutrophils # (Auto) 6.5 1.8-7.8 10^3/uL Lymphocytes # (Auto) 2.1 1.0-4.0 10^3/uL Monocytes # (Auto) 0.7 0.0-1.0 10^3/uL Eosinophils # (Auto) 0.1 0.0-0.3 10^3/uL Basophils # (Auto) 0.1 0.0-0.1 10^3/uL Immature Granulocyte # (Auto) 0.1 0.0-0.1 10^3/uL D-Dimer 1.40 H 0.00-0.49 UG/ML Sodium Level 136 135-145 MMOL/L Potassium Level 4.3 3.6-5.0 MMOL/L Chloride Level 100 98-107 MMOL/L Carbon Dioxide Level 22 21-32 MMOL/L Anion Gap 14 5-14 MMOL/L Blood Urea Nitrogen 20 H 7-18 MG/DL Creatinine 0.98 0.60-1.30 MG/DL Estimat Glomerular Filtration Rate 60 BUN/Creatinine Ratio 20 Glucose Level 109 H 70-105 MG/DL Calcium Level 9.9 8.5-10.1 MG/DL SARS-CoV-2 RNA (RT-PCR) Not Detected Not Detecte (VENUS BORRERO MD) My Orders Orders - VENUS BORRERO MD Ed Iv/Invasive Line Start (11/17/21 16:50) Cbc With Automated Diff (11/17/21 16:50) Basic Metabolic Panel (11/17/21 16:50) Chest 1 View, Ap/Pa Only (11/17/21 16:50) Fibrin Degradation Products (11/17/21 16:50) Ekg Tracing (11/17/21 16:50) Covid 19 Inhouse Test (11/17/21 16:54) Isolation Central Supply Req (11/17/21 16:54) Ct Angio Chest W (11/17/21 17:25) Ns Iv 1000 Ml (Sodium Chloride 0.9%) (11/17/21 17:30) Iohexol Injection (Omnipaque 350 Mg/Ml 1 (11/17/21 17:45) Received Contrast (Hold Metformin- Contr (11/17/21 17:45) Ns (Ivpb) (Sodium Chloride 0.9% Ivpb Bag (11/17/21 17:45) (VENUS BORRERO MD) Medications Given in ED Current Medications Medications Dose Ordered Sig/Raymond Route Start Time Stop Time Status Last Admin Dose Admin Iohexol 100 ml ONCE ONCE IV 11/17/21 17:45 11/17/21 17:46 DC 11/17/21 18:09 75 ML Sodium Chloride 100 ml ONCE ONCE IV 11/17/21 17:45 11/17/21 17:46 DC 11/17/21 18:09 80 ML (VENUS BORRERO MD) Vital Signs/I&O 11/17/21 11/17/21 16:20 16:20 Temp 36.4 Pulse 101 Resp 30 B/P (MAP) 136/66 (89) Pulse Ox 99 O2 Delivery Nasal Cannula Nasal Cannula O2 Flow Rate 2.00 2.00 (VENUS BORRERO MD) Vital Signs/I&O Capillary Refill : (MADI HAYWARD MED STUDENT) Progress Note : Time: 18:12 Progress Note 76-year-old female history of colon cancer, COPD, continues to smoke presents to the emergency room with shortness of breath ongoing over the last 4 days. Evaluation today includes physical exam, basic laboratory studies, EKG and chest x-ray. Her D-dimer is fairly significantly elevated. She is not on chronic anticoagulation. She has been needing to use her nasal cannula oxygen more over the last 3 days. Satting 97 to 99% on 3 L. Patient is not having any significant respiratory distress. She is concerned about polyphagia polydipsia. Labs are reviewed and are within normal limits except for the D-dimer. CT angio chest is pending at the time of this dictation. Care is passed to Dr. Ramsey (VENUS BORRERO MD) Progress Note : Progress Note ASSUMED CARE OF PT AT SHIFT CHANGE, CT IS PENDING AT THIS TIME. PT IS RESTING QUIETLY WITH RESPIRATIONS EVEN AND UNLABORED. O2 SATS UP TO 100% ON 2L/NC AT THIS TIME, AFTER WALKING TO AND FROM BATHROOM. COVID TEST IS NEGATIVE. PT DOES NOT FOLLOW WITH A GROUNDSKEEPER PORTER, AND HAS NOT HAD ANY STRESS TEST, CARDIAC CATH, ETC. SO WILL HAVE PT FOLLOW UP WITH LOCAL GROUNDSKEEPER PORTER FOR FURTHER EVALUATION OF CHRONIC DYSPNEA. PT ALSO DOES NOT FOLLOW UP WITH BALL FRINGE MACHINE OPERATOR, WILL HAVE PT FOLLOW UP WITH PCP FOR CHRONIC COPD, THERE IS NO LOCAL BALL FRINGE MACHINE OPERATOR. WILL ADD STEROIDS AT THIS POINT FOR HER COPD. PT'S ONLY COMPLAINT IS "I FEEL EXHAUSTED ALL THE TIME" --THIS IS A CHRONIC ONGOING COMPLAINT. AT DISMISSAL, PT BECAME VERY HOSTILE AND STATES "YOU'RE NOT DOING A GOD-DAMNED THING" "I'M EXHAUSTED" --ADVISED HER THAT THERE WAS NO IMMEDIATE "CURE" FOR HER CHRONIC EXHAUSTION, BUT WE HAVE RULED OUT ANY ACUTE MEDICAL EMERGENCY AND DID NOT REQUIRE ADMIT TO HOSPITAL AT THIS TIME, AND EVEN A HOSPITAL ADMIT WOULD NOT "CURE" HER COMPLAINT OF "EXHAUSTION". STRESSED THE IMPORTANCE OF FOLLOW UP WITH GROUNDSKEEPER PORTER AND HER PCP. (MAMTA RAMSEY DO) ECG Initial ECG Impression Date: Nov 17, 2021 Initial ECG Impression Time: 16:59 Initial ECG Rate: 97 Initial ECG Rhythm: Normal Sinus Initial ECG Intervals: Normal Initial ECG Impression: Normal, Nonspecific Changes (VENUS BORRERO MD) Diagnostic Imaging Diagonstic Imaging: Xray Plain Films/CT/US/NM/MRI: chest Comments [facility], [place] NAME: [facility] REC#: [id number] PT STATUS: REG ER : 1945 PHYSICIAN: VENUS BORRERO MD ADMIT DATE: 11/17/21/ER Signed Date of Exam:11/17/21 CHEST 1 VIEW, AP/PA ONLY INDICATION: Shortness of breath COMPARISON: 10/30/2021 FINDINGS: Single view of the chest demonstrates questionable new subtle infiltrates in both bases. The heart is prominent without pulmonary edema. COPD is present. There is no pneumothorax or effusion. Osseous structures are age-appropriate. IMPRESSION: Questionable new infiltrates in both bases. Dictated by: Dictated on workstation # [id number] Dict: 11/17/211741 Trans: 11/17/211746 [facility] [id number] Interpreted by: VERO ERVIN Electronically signed by: VERO ERVIN 11/17/211746 (VENUS BORRERO MD) Comments CT CHEST ANGIOGRAM--PER RADIOLOGIST REPORT AT 1827 FINDINGS: Centrilobular emphysema seen throughout. There is no pulmonary embolism or acute aortic pathology. There is no focal infiltrate, effusion or pneumothorax. There is no lymphadenopathy. Osseous structures and visualized upper abdominal solid organs are unremarkable. There is diastases of the anterior abdominal wall. IMPRESSION: 1. No pulmonary embolism identified. 2. Centrilobular emphysema without pulmonary infiltrate. Reviewed: Reviewed by Me (MAMTA RAMSEY DO) Departure Communication (Admissions) 1919--SPOKE WITH DR. TANNER, GROUNDSKEEPER PORTER, WILL SEE PT IN OFFICE THIS WEEK FOR FOLLOW UP (MAMTA RAMSEY DO) Impression Primary Impression: COPD WITH CHRONIC RESPIRATORY FAILURE Additional Impressions: Smoker Chronic dyspnea Hypomagnesemia Disposition: HOME, SELF-CARE Condition: Stable Departure-Patient Inst. Decision time for Depature: 19:19 (MAMTA RAMSEY DO) Referrals: REE CONTEH MD NO,LOCAL PHYSICIAN (PCP) Primary Care Physician RAJI TANNER JR, MD Patient Instructions: Chronic Obstructive Pulmonary Disease (COPD) (DC), Quitting Smoking ED, Low Magnesium Level (DC) Add. Discharge Instructions: HOME, REST CONTINUE OXYGEN AT 2-3 LITERS CONTINUOUSLY CONTINUE YOUR REGULAR MEDICATIONS PRESCRIBED, EXCEPT INCREASE YOUR MAGNESIUM TO 1200 MG A DAY FOLLOW UP WITH DR. TANNER, GROUNDSKEEPER PORTER, THIS WEEK FOR FURTHER EVALUATION FOLLOW UP WITH DR. CONTEH, [facility], THIS WEEK FOR FURTHER EVALUATION. All discharge instructions reviewed with patient and/or family. Voiced understanding. Scripts Methylprednisolone (Medrol) 4 Mg Tab.ds.pk 4 MG PO UD for 6 Days, #21 PKG PER DOSE PACK INSTRUCTIONS Prov: MAMTA RAMSEY DO 11/17/21 Verification and Attestation of Medical Student E/M Service A medical student performed and documented this service in my presence. I revie wed and verified all information documented by the medical student and made modifications to such information, when appropriate. I personally performed the physical exam and medical decision making. Venus Borrero, Nov 17, 2021,18:12 (VENUS BORRERO MD) MADI HAYWARD MED STUDENT Nov 17, 2021 16:46 VENUS BORRERO MD Nov 17, 2021 18:16 MAMTA RAMSEY DO Nov 17, 2021 18:31
[2021-11-17 17:01] LABS: POTASSIUM 4.3 MMOL/L (3.6-5.0)
[2021-11-17 17:02] LABS: BASOPHILS # (AUTO) 0.1 10^3/uL (0.0-0.1); BASOPHILS % (AUTO) 1 % (0-10); CALCIUM 9.9 MG/DL (8.5-10.1); EOSINOPHILS # (AUTO) 0.1 10^3/uL (0.0-0.3); EOSINOPHILS % (AUTO) 1 % (0-10); HEMATOCRIT 35 % (35-52); HEMOGLOBIN 12.2 g/dL (11.5-16.0); LYMPHOCYTES # (AUTO) 2.1 10^3/uL (1.0-4.0); LYMPHOCYTES % (AUTO) 22 % (12-44); MEAN CORPUSCULAR HEMOGLOBIN 34 pg (25-34); MEAN CORPUSCULAR HGB CONC 35 g/dL (32-36); MEAN CORPUSCULAR VOLUME 98 fL (80-99); MEAN PLATELET VOLUME 9.2 fL (9.0-12.2); MONOCYTES # (AUTO) 0.7 10^3/uL (0.0-1.0); MONOCYTES % (AUTO) 8 % (0-12); NEUTROPHILS # (AUTO) 6.5 10^3/uL (1.8-7.8); NEUTROPHILS % (AUTO) 68 % (42-75); PLATELET COUNT 256 10^3/uL (130-400); WHITE BLOOD COUNT 9.6 10^3/uL (4.3-11.0)
[2021-11-17 17:07] LABS: CREATININE SERUM 0.98 MG/DL (0.60-1.30)
[2021-11-17] MEDS ORDERED: NS IV 1000 ML 1,000 ML IV SCH (17:30)
[2021-11-17] MEDS ORDERED: HOLD METFORMIN - RECEIVED CONTRAST 20 ML VIAL IV SCH (17:45)
[2021-11-17] MEDS ORDERED: NS 100 ML (IVPB) BAG IV ONE (17:45)
[2021-11-17] MEDS ORDERED: IOHEXOL 350 MG/ML 100 ML (OMNIPAQUE 350) VIAL IV ONE (17:45)
--- NOTE | 2021-11-17 17:45 | Diagnostic Imaging Report ---
INDICATION: Shortness of breath COMPARISON: 10/30/2021 FINDINGS: Single view of the chest demonstrates questionable new subtle infiltrates in both bases. The heart is prominent without pulmonary edema. COPD is present. There is no pneumothorax or effusion. Osseous structures are age-appropriate. IMPRESSION: Questionable new infiltrates in both bases. Dictated by: Dictated on workstation # [id number]
--- NOTE | 2021-11-17 18:22 | Diagnostic Imaging Report ---
PROCEDURE: CT angiography of the chest with contrast. TECHNIQUE: Multiple contiguous axial images were obtained through the chest after uneventful bolus administration of intravenous contrast. 3D reconstructed CTA MIP acquisitions were also performed. Auto Exposure Controls were utilized during the CT exam to meet ALARA standards for radiation dose reduction. INDICATION: Shortness of breath, weakness COMPARISON: 10/23/2021. FINDINGS: Centrilobular emphysema seen throughout. There is no pulmonary embolism or acute aortic pathology. There is no focal infiltrate, effusion or pneumothorax. There is no lymphadenopathy. Osseous structures and visualized upper abdominal solid organs are unremarkable. There is diastases of the anterior abdominal wall. IMPRESSION: 1. No pulmonary embolism identified. 2. Centrilobular emphysema without pulmonary infiltrate. Dictated by: Dictated on workstation # [id number]
[2021-11-17] MEDS ORDERED: methylPREDNISolone 125 MG (Solu-MEDROL) VIAL IVP ONE (18:45)
[2021-11-17 19:02] LABS: MAGNESIUM 1.5 MG/DL (1.6-2.4)
[2021-11-17] MEDS ORDERED: METH4TAB PO (19:28)
[2021-11-17] MEDS ORDERED: MAGN200T8 PO (19:28)
[2021-11-17] MEDS ORDERED: MAGNESIUM OXIDE (MAG-OX)400 MG TAB PO ONE (19:30)
[2021-11-17 19:46] VITALS: BP 125/52
== END 2021-11-17 19:46 | disposition home or self-care (01) ==
LOC: EDUNIT# 16:03 → ER 16:09
DX: J44.9 Chronic obstructive pulmonary disease, unspecified (principal); R06.00 Dyspnea, unspecified; E83.42 Hypomagnesemia; I10 Essential (primary) hypertension; K21.9 Gastro-esophageal reflux disease without esophagitis; F17.210 Nicotine dependence, cigarettes, uncomplicated; Z20.822 Contact with and (suspected) exposure to COVID-19; Z79.899 Other long term (current) drug therapy
CPT/HCPCS: 36415; 71045; 71275; 80048; 83735; 83880; 84484; 85025; 85379; 87636; 93005; 96361; 96374

== ENCOUNTER 2021-12-29 13:18 | Emergency (ER) | payer MEDICARE ==
[~2021-12-29] VITALS: Ht 157 cm; Wt 72.5 kg
[~2021-12-29 13:18] MED LIST changes: +MAGN200T8 PO; +METH4TAB PO
[2021-12-29] MEDS ORDERED: RT-ALBUTEROL/IPRATROPIUM 3 ML (DUONEB) VIAL ONE (13:42)
[2021-12-29] MEDS ORDERED: RT-ALBUTEROL SULF 2.5 MG/3 ML PRE-MIX VIAL ONE (13:43)
[2021-12-29] MEDS ORDERED: RT-ALBUTEROL/IPRATROPIUM 3 ML (DUONEB) VIAL INH ONE (13:45)
[2021-12-29] MEDS ORDERED: RT-ALBUTEROL SULF 2.5 MG/3 ML PRE-MIX VIAL INH SCH (13:45)
[2021-12-29] MEDS ORDERED: methylPREDNISolone 40 MG/ML (Solu-MEDROL) VIAL IV ONE (13:45)
--- NOTE | 2021-12-29 13:51 | ED Dyspnea ---
General Chief Complaint: Respiratory Problems Stated Complaint: SOA - COUGH- CONGESTION - WEAKNESS Nursing Triage Note: PT ARRIVES TO ER VIA POV WITH FAMILY MEMBER. PT REPORTS SOB X 1 WEEK, RECENTLY ON DOXY AND PREDNISONE WITH LITTLE RELIEF OF S/S. PT C/O SOB, COUGH, CONGESTION, WEAKNESS. PT HAS HOME OXYGEN, REPORTS HAS BEEN USING MORE FREQUENTLY. PT TACHYPNEIC. Source of Information: Patient Exam Limitations: No Limitations (KAYLA DUNCAN APRN) History of Present Illness Date Seen by Provider: Dec 29, 2021 Time Seen by Provider: 13:49 Initial Comments To ER with shortness of breath for 1 week. This started about last Wednesday or Wednesday. Coincidentally she ran out of her doxycycline and prednisone at that time. She has COPD and continues to smoke 1/2 pack of cigarettes per day. Denies fevers or chills. Her cough is productive. She follows with Dr. Hairston at [facility]. That she breathes more easily when she lies flat and has more shortness of breath when sitting upright. Timing/Duration: 1 Week Severity: Moderate Prior Episodes/Possible Cause: No Prior Episodes Modifying Factors: Improves With Coughing Associated Symptoms: Cough (KAYLA DUNCAN APRN) Allergies and Home Medications Allergies Coded Allergies: Penicillins (Verified Allergy, Unknown, Anaphylaxis, 09/26/20) budesonide (Verified Allergy, Unknown, Nausea, PT USES TRELEGY, 12/20/20) formoterol (Verified Allergy, Unknown, Nausea, 09/26/20) midazolam (Verified Allergy, Unknown, Anaphylaxis, pt has rec Lorazepam & alprazolam in the past, 02/04/21) Has received Lorazepam & alprazolam without issue Patient Home Medication List Home Medication List Reviewed: Yes (KAYLA DUNCAN APRN) Albuterol Sulfate (Albuterol Sulfate) 2.5 Mg/3 Ml Vial.neb, 2.5 MG INH Q4H PRN for WHEEZING Prescribed by: KAYLA DUNCAN on 12/29/21 1434 Ascorbate Calcium (Vitamin C) 500 Mg Tablet, 500 MG PO DAILY, (Reported) Entered as Reported by: VICKI CARDOSO on 08/11/21 1531 Cefdinir (Cefdinir) 300 Mg Capsule, 300 MG PO BID Prescribed by: MAMTA MORAN on 10/30/219 Docusate Sodium (Stool Softener) 100 Mg Tablet, 100-200 MG PO BID PRN for CONSTI PATION-1ST LINE, (Reported) Entered as Reported by: VICKI CARDOSO on 08/11/21 153 Fluticasone/Umeclidin/Vilanter (Trelegy Ellipta 100-62.5-25) 1 Each Blst.w.dev, 1 EACH IH DAILY, (Reported) Entered as Reported by: VICKI CARDOSO on 08/11/21 153 Magnesium Oxide (Magnesium) 400 Mg Tablet, 400 MG PO BID Prescribed by: MAMTA MORAN on 10/30/212128 Methylprednisolone (Medrol) 4 Mg Tab.ds.pk, 4 MG PO UD Prescribed by: MAMTA MORAN on 11/17/211927 Metoprolol Tartrate (Metoprolol Tartrate) 25 Mg Tablet, 25 MG PO DAILY Prescribed by: ALICIA FULTON on 08/12/21 1035 Multivitamin/Iron/Folic Acid (Multivitamin with Iron Tablet) 1 Each Tablet, 1 EACH PO DAILY, (Reported) Entered as Reported by: VICKI CARDOSO on 08/11/21 153 Ondansetron (Ondansetron Odt) 4 Mg Tab.rapdis, 4 MG PO Q6H PRN for NAUSEA/VOMITING Prescribed by: PINKY BULLOCK on 11/14/21 185 Pantoprazole Sodium (Pantoprazole Sodium) 40 Mg Tablet.dr, 40 MG PO BID, (Reported) Entered as Reported by: VICKI CARDOSO on 08/11/211530 Prednisone (Prednisone) 20 Mg Tab, 40 MG PO DAILY Prescribed by: MAMTA MORAN on 10/30/212128 Prednisone (Prednisone) 20 Mg Tab, 20 MG PO DAILY Prescribed by: KAYLA DUNCAN on 12/29/21 1434 Sodium Chloride (Sodium Chloride) 1 Gm Tab, 1 GM PO DAILY, (Reported) Entered as Reported by: VICKI CARDOSO on 08/11/21 153 Review of Systems Review of Systems Constitutional: see HPI EENTM: see HPI Respiratory: see HPI, dyspnea on exertion, short of breath Genitourinary: no symptoms reported Musculoskeletal: no symptoms reported Skin: no symptoms reported Psychiatric/Neurological: No Symptoms Reported Endocrine: No Symptoms Reported (KAYLA DUNCAN BOAT ENGINE MECHANIC) Past Fabncqt-Pjjayh-Smjxra Hx Patient Social History Substance use?: No Alcohol Use?: No Pt feels they are or have been: No (KAYLA DUNCAN APRN) Immunizations Up To Date Tetanus Booster (TDap): Unknown First/Initial COVID19 Vaccinat: NONE Second COVID19 Vaccination Sammy: NONE Third COVID19 Vaccination Date: NONE (KAYLA DUNCAN APRN) Seasonal Allergies Seasonal Allergies: Yes (KAYLA DUNCAN APRN) Past Medical History Surgery/Hospitalization HX: BOWEL RESECTION, HX COLON CA Surgeries: Yes (SEE BELOW) Abdominal, Eye Surgery, Tonsillectomy Respiratory: Yes (O2 DEPENDENT AT 2-3/NC CONTINUOUSLY) COPD Currently Using CPAP: No Currently Using BIPAP: No Cardiac: Yes High Cholesterol, Hypertension 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 Genitourinary: No Bladder Infection, Renal Failure Gastrointestinal: Yes (COLON CANCER) Gastroesophageal Reflux, Chronic Constipation Musculoskeletal: Yes Arthritis, Chronic Back Pain Endocrine: Yes (LOW MAGNESIUM LEVEL) HEENT: Yes (CATARACTS REMOVED; DENTURES) Cataract Hearing Impairment: Hard of Hearing, Bilateral Hearing Aide Cancer: Yes Colon Did You Recieve Any Treatments: Yes What Type of Treatment Did You: Radiation, Surgical Intervention Psychosocial: Yes Anxiety Integumentary: No Blood Disorders: No (KAYLA DUNCAN APRN) Family Medical History No Pertinent Family Hx PAST SURGICAL HISTORY: -TONSILLECTOMY -BILATERAL CATARACT SURGERY -COLONOSCOPY -PORT LEFT CHEST -11/01/20--HAD EXTENDED RIGHT HEMICOLECTOMY WITH SUBSEQUENT ILEOCOLONIC TORSION, WITH PERMANENT ILEOSTOMY; MULTIPLE RESECTIONS AND REVISIONS, DEBRIDEMENTS AND DRAINAGE OF INTRA-ABDOMINAL ABSCESSES AND MESH PLACEMENT. HAS HAD MULTPLE EPISODES OF SEPSIS AND GENERALIZED DECONDITIONING AND REQUIRED INPATIENT REHAB STAYS AFTER EACH ADMIT. MULTIPLE VISITS SINCE FIRST VISIT HERE 10/31/20 (KAYLA DUNCAN APRN) Physical Exam Vital Signs Vital Signs - First Documented 12/29/21 13:21 Temp 35.7 Pulse 118 Resp 34 B/P (MAP) 108/92 (97) Pulse Ox 99 O2 Delivery Nasal Cannula O2 Flow Rate 2.00 (RUSSELL DURAND MD) Vital Signs Capillary Refill : (KAYLA DUNCAN APRN) Height, Weight, BMI Height: '" Weight: lbs. oz. kg; 29.00 BMI Method: General Appearance: No Apparent Distress, WD/WN, Other (97% on 1 L) Respiratory: No Accessory Muscle Use, No Respiratory Distress, Other (Diminished) Cardiovascular: Regular Rate, Rhythm, Normal Peripheral Pulses Gastrointestinal: Normal Bowel Sounds, Non Tender, Soft Extremity: Normal Capillary Refill, Normal Inspection Neurologic/Psychiatric: Alert, Oriented x3 Skin: Normal Color, Warm/Dry (KAYLA DUNCAN APRN) Procedures/Interventions Date of ETT Placement: Nov 15, 2020 (KAYLA DUNCAN APRN) Progress/Results/Core Measures Results/Orders Lab Results Laboratory Tests Test 12/29/21 13:31 12/29/21 13:40 Range/Units White Blood Count 14.5 H 4.3-11.0 10^3/uL Red Blood Count 4.19 3.80-5.11 10^6/uL Hemoglobin 14.4 11.5-16.0 g/dL Hematocrit 41 35-52 % Mean Corpuscular Volume 97 80-99 fL Mean Corpuscular Hemoglobin 34 25-34 pg Mean Corpuscular Hemoglobin Concent 35 32-36 g/dL Red Cell Distribution Width 12.0 10.0-14.5 % Platelet Count 354 130-400 10^3/uL Mean Platelet Volume 9.1 9.0-12.2 fL Immature Granulocyte % (Auto) 4 % Neutrophils (%) (Auto) 60 42-75 % Lymphocytes (%) (Auto) 25 12-44 % Monocytes (%) (Auto) 10 0-12 % Eosinophils (%) (Auto) 1 0-10 % Basophils (%) (Auto) 1 0-10 % Neutrophils # (Auto) 8.6 H 1.8-7.8 10^3/uL Lymphocytes # (Auto) 3.7 1.0-4.0 10^3/uL Monocytes # (Auto) 1.4 H 0.0-1.0 10^3/uL Eosinophils # (Auto) 0.2 0.0-0.3 10^3/uL Basophils # (Auto) 0.1 0.0-0.1 10^3/uL Immature Granulocyte # (Auto) 0.5 H 0.0-0.1 10^3/uL Neutrophils % (Manual) 56 % Lymphocytes % (Manual) 27 % Monocytes % (Manual) 12 % Myelocytes % 1 % Band Neutrophils 2 % Atypical Lymphocytes 2 % Blood Morphology Comment NORMAL Sodium Level 127 L 135-145 MMOL/L Potassium Level 4.6 3.6-5.0 MMOL/L Chloride Level 97 L 98-107 MMOL/L Carbon Dioxide Level 19 L 21-32 MMOL/L Anion Gap 11 5-14 MMOL/L Blood Urea Nitrogen 30 H 7-18 MG/DL Creatinine 1.17 0.60-1.30 MG/DL Estimat Glomerular Filtration Rate 48 BUN/Creatinine Ratio 26 Glucose Level 121 H 70-105 MG/DL Calcium Level 10.7 H 8.5-10.1 MG/DL Corrected Calcium 10.5 H 8.5-10.1 MG/DL Total Bilirubin 0.5 0.1-1.0 MG/DL Aspartate Amino Transf (AST/SGOT) 21 5-34 U/L Alanine Aminotransferase (ALT/SGPT) 33 0-55 U/L Alkaline Phosphatase 92 40-136 U/L B-Type Natriuretic Peptide < 10.0 <100.0 PG/ML Total Protein 7.4 6.4-8.2 GM/DL Albumin 4.3 3.2-4.5 GM/DL Procalcitonin 0.06 <0.10 NG/ML Blood Gas Puncture Site RR Blood Gas Patient Temperature 35.7 Arterial Blood pH 7.44 H 7.37-7.43 Arterial Blood Partial Pressure CO2 29 L 35-45 MMHG Arterial Blood Partial Pressure O2 108 H 79-93 MMHG Arterial Blood HCO3 20 L 23-27 MMOL/L Arterial Blood Total CO2 21.0 21.0-31.0 MMOL/L Arterial Blood Oxygen Saturation 99 94-100 % Arterial Blood Base Excess -3.6 L -2.5-2.5 MMOL/L Adi Test YES-POS Blood Gas Ventilator Setting NO Blood Gas Inspired Oxygen 2L Influenza Type A (RT-PCR) Not Detected Not Detecte Influenza Type B (RT-PCR) Not Detected Not Detecte SARS-CoV-2 RNA (RT-PCR) Not Detected Not Detecte (RUSSELL DURAND MD) Medications Given in ED Current Medications Medications Dose Ordered Sig/Raymond Route Start Time Stop Time Status Last Admin Dose Admin Albuterol/ Ipratropium 3 ml ONCE ONCE INH 12/29/21 13:45 12/29/21 13:47 DC 12/29/21 13:40 3 ML Methylprednisolone Sodium Succinate 80 mg ONCE ONCE IV 12/29/21 13:45 12/29/21 13:47 DC 12/29/21 13:54 80 MG (RUSSELL DURAND MD) Vital Signs/I&O 12/29/21 12/29/21 12/29/21 12/29/21 13:21 13:40 13:50 14:00 Temp 35.7 Pulse 118 94 Resp 34 B/P (MAP) 108/92 (97) 108/92 Pulse Ox 99 94 O2 Delivery Nasal Cannula Nasal Cannula Nasal Cannula Nasal Cannula O2 Flow Rate 2.00 2.00 2.00 12/29/21 12/29/21 14:29 14:49 Pulse 104 100 Resp 30 B/P (MAP) 119/81 122/68 Pulse Ox 97 97 O2 Delivery Nasal Cannula (RUSSELL DURAND MD) Blood Pressure Mean: 97 Departure Impression Primary Impression: COPD (chronic obstructive pulmonary disease) Disposition: HOME, SELF-CARE Condition: Stable Departure-Patient Inst. Decision time for Depature: 14:33 (KALYA DUNCAN APRN) Referrals: NO,LOCAL PHYSICIAN (PCP/Family) Primary Care Physician Patient Instructions: COPD Exacerbation, Adult ED Add. Discharge Instructions: 1. You must quit smoking. Steroids as directed. Return to ER for any worsening. Follow-up with your doctor as soon as they can see you All discharge instructions reviewed with patient and/or family. Voiced un derstanding. Scripts Albuterol Sulfate (Albuterol Sulfate) 2.5 Mg/3 Ml Vial.neb 2.5 MG INH Q4H PRN for WHEEZING, #50 EA 1 Refill Prov: KAYLA DUNCAN APRN 12/29/21 Prednisone (Prednisone) 20 Mg Tab 20 MG PO DAILY, #22 TAB Take 3 tabs(60mg)daily,decrease by 1/2 tab(10mg)every other day. Prov: KAYLA DNUCAN APRN 12/29/21 ATTENDING PHYSICIAN NOTE: I was physically present as attending physician in the emergency department during the care of this patient, but I was not directly involved in the decision making or delivery of care for this patient. (RUSSELL DURAND MD) KAYLA DUNCAN APRN Dec 29, 2021 13:51 RUSSELL DURAND MD Dec 29, 2021 21:04
[2021-12-29 13:54] LABS: ABG BASE EXCESS -3.6 MMOL/L (-2.5-2.5); ABG OXYGEN SATURATION 99 % (94-100); ABG PCO2 29 MMHG (35-45); ABG PH 7.44 (7.37-7.43); ABG PO2 108 MMHG (79-93)
[2021-12-29 13:54] LABS: BASOPHILS # (AUTO) 0.1 10^3/uL (0.0-0.1); BASOPHILS % (AUTO) 1 % (0-10); EOSINOPHILS # (AUTO) 0.2 10^3/uL (0.0-0.3); EOSINOPHILS % (AUTO) 1 % (0-10); HEMATOCRIT 41 % (35-52); HEMOGLOBIN 14.4 g/dL (11.5-16.0); LYMPHOCYTES # (AUTO) 3.7 10^3/uL (1.0-4.0); LYMPHOCYTES % (AUTO) 25 % (12-44); MEAN CORPUSCULAR HEMOGLOBIN 34 pg (25-34); MEAN CORPUSCULAR HGB CONC 35 g/dL (32-36); MEAN CORPUSCULAR VOLUME 97 fL (80-99); MEAN PLATELET VOLUME 9.1 fL (9.0-12.2); MONOCYTES # (AUTO) 1.4 10^3/uL (0.0-1.0); MONOCYTES % (AUTO) 10 % (0-12); NEUTROPHILS # (AUTO) 8.6 10^3/uL (1.8-7.8); NEUTROPHILS % (AUTO) 60 % (42-75); PLATELET COUNT 354 10^3/uL (130-400); WHITE BLOOD COUNT 14.5 10^3/uL (4.3-11.0)
[2021-12-29 13:55] LABS: ALLENS TEST YES-POS; INSPIRED O2 2L; PATIENT TEMP 35.7; VENTILATOR NO
[2021-12-29 13:57] LABS: ALBUMIN 4.3 GM/DL (3.2-4.5)
[2021-12-29 13:58] LABS: POTASSIUM 4.6 MMOL/L (3.6-5.0)
[2021-12-29 13:59] LABS: CALCIUM 10.7 MG/DL (8.5-10.1)
[2021-12-29 14:00] LABS: TOTAL PROTEIN 7.4 GM/DL (6.4-8.2)
[2021-12-29 14:02] LABS: BILIRUBIN,TOTAL 0.5 MG/DL (0.1-1.0)
[2021-12-29 14:03] LABS: CREATININE SERUM 1.17 MG/DL (0.60-1.30)
[2021-12-29 14:07] LABS: ATYPICAL LYMPHOCYTES 2 %; BAND NEUTROPHILS 2 %; LYMPHOCYTES % (MANUAL) 27 %; MONOCYTES % (MANUAL) 12 %; MYELOCYTES % 1 %; NEUTROPHILS % (MANUAL) 56 %
[2021-12-29 14:08] LABS: RBC MORPH NORMAL
[2021-12-29] MEDS ORDERED: ALBU2.5V4 INH (14:34)
[2021-12-29] MEDS ORDERED: PRD20T PO (14:34)
--- NOTE | 2021-12-29 14:35 | Diagnostic Imaging Report ---
INDICATION: Shortness of breath. EXAMINATION: Portable chest at 02:34 p.m. FINDINGS: Heart size and pulmonary vascularity are normal. Lungs are clear. There are no effusions or pneumothoraces. The left subclavian Port-A-Cath tip projects over the SVC. IMPRESSION: No acute abnormalities in the chest. Dictated by: Dictated on workstation # [id number]
[2021-12-29 14:49] VITALS: BP 122/68
== END 2021-12-29 14:55 | disposition home or self-care (01) ==
LOC: EDUNIT# 13:18 → ER 13:20
DX: J44.9 Chronic obstructive pulmonary disease, unspecified (principal); F17.210 Nicotine dependence, cigarettes, uncomplicated; Z20.822 Contact with and (suspected) exposure to COVID-19
CPT/HCPCS: 36415; 71045; 80053; 82805; 83880; 84145; 85007; 85027; 87636; 94640

== ENCOUNTER 2022-05-05 18:16 | Emergency (ER) | payer MEDICARE ==
[~2022-05-05 18:16] MED LIST changes: -BETH50TA2 PO; +BETH50TA3 PO
[2022-05-05 19:24] VITALS: BP 173/111
--- NOTE | 2022-05-05 19:44 | ED Cough/URI ---
General Chief Complaint: General Problems/Pain Stated Complaint: HURT ALL OVER, HIGH BLOOD PRESSURE Nursing Triage Note: PT PRESENTS WITH COUGH, FATIGUE, AND BODY ACHES THAT STARTED WEDNESDAY. PT REPORTS HOME OXYGEN USED DURING ACTIVETY. Source: patient History of Present Illness Date Seen by Provider: May 05, 2022 Time Seen by Provider: 19:20 Initial Comments PT ARRIVES VIA POV FROM HOME STATES SHE HAS BEEN SICK SINCE Wednesday05/03/22 C/O NON-PRODUCTIVE COUGH C/O POST NASAL DRAINAGE C/O INCREASED SHORTNESS OF BREATH WITH EXERTION--HAS COPD AND WEARS O2 AT 2- 3L/NC WITH EXERTION (SUPPOSED TO BE WEARING IT CONTINUOUSLY, BUT STATES SHE ONLY WEARS IT WITH EXERTION) . PT HAS NOT USED HER INHALER TODAY. PT CONTINUES TO SMOKE C/O SUBJECTIVE FEVER AND CHILLS C/O BODY ACHES NO HEADACHE NO GI SYMPTOMS NO LOSS OF TASTE/SMELL PT IS NOT COVID OR FLU VACCINATED SISTER IS ILL WITH THE SAME, AND SISTER WORKS IN A MEDICARE SALES REPRESENTATIVE'S OFFICE. PT DX WITH COLON CANCER LAST YEAR, HAS COLOSTOMY IN PLACE STATES SHE HAS A "SPOT" ON HER LUNG THAT SHE RECEIVED RADIATION FOR, AND HAD A PET SCAN LAST WEEK HAS NOT HAD CHEMO PT CONTINUES TO SMOKE--1 PPD--STATES SHE IS "TRYING TO CUT DOWN" PT HAS NOT TAKEN ANYTHING FOR ANY OF HER SYMPTOMS AT ANY TIME HAS NOT SOUGHT CARE UNTIL TODAY SYMPTOMS ARE NO DIFFERENT TODAY PCP: DR. MARTÍNEZ Allergies and Home Medications Allergies Coded Allergies: Penicillins (Verified Allergy, Unknown, Anaphylaxis, 09/26/20) budesonide (Verified Allergy, Unknown, Nausea, PT USES TRELEGY, 12/20/20) formoterol (Verified Allergy, Unknown, Nausea, 09/26/20) midazolam (Verified Allergy, Unknown, Anaphylaxis, pt has rec Lorazepam & alprazolam in the past, 02/04/21) Has received Lorazepam & alprazolam without issue Patient Home Medication List Albuterol Sulfate (Albuterol Sulfate) 2.5 Mg/3 Ml Vial.neb, 2.5 MG INH Q4H PRN for WHEEZING Prescribed by: KAYLA DUNCAN on 12/29/21 1434 Ascorbate Calcium (Vitamin C) 500 Mg Tablet, 500 MG PO DAILY, (Reported) Entered as Reported by: VICKI CARDOSO on 08/11/21 1531 Cefdinir (Cefdinir) 300 Mg Capsule, 300 MG PO BID Prescribed by: MAMTA MORAN on 10/30/212128 Docusate Sodium (Stool Softener) 100 Mg Tablet, 100-200 MG PO BID PRN for CONSTIPATION-1ST LINE, (Reported) Entered as Reported by: VICKI CARDOSO on 08/11/21 153 Fluticasone/Umeclidin/Vilanter (Trelegy Ellipta 100-62.5-25) 1 Each Blst.w.dev, 1 EACH IH DAILY, (Reported) Entered as Reported by: VICKI CARDOSO on 08/11/21 153 Magnesium Oxide (Magnesium) 400 Mg Tablet, 400 MG PO BID Prescribed by: MAMTA MORAN on 10/30/212128 Methylprednisolone (Medrol) 4 Mg Tab.ds.pk, 4 MG PO UD Prescribed by: MAMTA MORAN on 11/17/211927 Metoprolol Tartrate (Metoprolol Tartrate) 25 Mg Tablet, 25 MG PO DAILY Prescribed by: ALICIA FULTON on 08/12/21 1035 Multivitamin/Iron/Folic Acid (Multivitamin with Iron Tablet) 1 Each Tablet, 1 EACH PO DAILY, (Reported) Entered as Reported by: VICKI CARDOSO on 08/11/211530 Ondansetron (Ondansetron Odt) 4 Mg Tab.rapdis, 4 MG PO Q6H PRN for NAUSEA/VOM ITING Prescribed by: PINKY BULLOCK on 11/14/21 185 Pantoprazole Sodium (Pantoprazole Sodium) 40 Mg Tablet.dr, 40 MG PO BID, (Reported) Entered as Reported by: VICKI CARDOSO on 08/11/21 153 Prednisone (Prednisone) 20 Mg Tab, 40 MG PO DAILY Prescribed by: MAMTA MORAN on 10/30/212128 Prednisone (Prednisone) 20 Mg Tab, 20 MG PO DAILY Prescribed by: KAYLA DUNCAN on 12/29/21 1434 Sodium Chloride (Sodium Chloride) 1 Gm Tab, 1 GM PO DAILY, (Reported) Entered as Reported by: VICKI CARDOSO on 08/11/21 153 Review of Systems Review of Systems Constitutional: see HPI, chills, fever, malaise EENTM: see HPI, nose congestion; No throat pain Respiratory: see HPI, cough, dyspnea on exertion; No phlegm; short of breath Cardiovascular: no symptoms reported; No chest pain, No edema Gastrointestinal: no symptoms reported (NO CHANGE IN STOOLS--HAS COLOSTOMY IN PLACE); No abdominal pain, No loss of appetite, No vomiting Genitourinary: no symptoms reported Musculoskeletal: see HPI (BODY ACHES) Skin: no symptoms reported Psychiatric/Neurological: No Symptoms Reported Hematologic/Lymphatic: No Symptoms Reported Immunological/Allergic: no symptoms reported Past Mflvvwl-Xyldhj-Zwrwdd Hx Patient Social History Tobacco Use?: Yes Tobacco type used: Cigarettes Smoking Status: Current Everyday Smoker Substance use?: No Alcohol Use?: No Immunizations Up To Date Tetanus Booster (TDap): Unknown Influenza Vaccine Up-to-Date: Yes; Up-to-Date First/Initial COVID19 Vaccinat: NONE Second COVID19 Vaccination Sammy: NONE Third COVID19 Vaccination Date: NONE Seasonal Allergies Seasonal Allergies: Yes Past Medical History Surgery/Hospitalization HX: BOWEL RESECTION, HX COLON CA Surgeries: Yes (SEE BELOW) Abdominal, Bowel Surgery, Eye Surgery, Tonsillectomy Respiratory: Yes (O2 DEPENDENT AT 2-3/NC CONTINUOUSLY) COPD Currently Using CPAP: No Currently Using BIPAP: No Cardiac: Yes High Cholesterol, Hypertension 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 Genitourinary: Yes Bladder Infection, Renal Failure Gastrointestinal: Yes (COLON CANCER) Gastroesophageal Reflux, Chronic Constipation Musculoskeletal: Yes Arthritis, Chronic Back Pain Endocrine: Yes (LOW MAGNESIUM LEVEL) HEENT: Yes (CATARACTS REMOVED; DENTURES) Cataract Hearing Impairment: Hard of Hearing, Bilateral Hearing Aide Cancer: Yes Colon Did You Recieve Any Treatments: Yes What Type of Treatment Did You: Radiation, Surgical Intervention COLON CANCER DX 2020--HAS COLOSTOMY "SPOT ON LUNG" , PER PT--HAD RADIATION TO THAT AREA Psychosocial: Yes Anxiety Integumentary: No Blood Disorders: No Family Medical History No Pertinent Family Hx PAST SURGICAL HISTORY: -TONSILLECTOMY -BILATERAL CATARACT SURGERY -COLONOSCOPY -PORT LEFT CHEST -11/01/20--HAD EXTENDED RIGHT HEMICOLECTOMY WITH SUBSEQUENT ILEOCOLONIC TORSION, WITH PERMANENT ILEOSTOMY; MULTIPLE RESECTIONS AND REVISIONS, DEBRIDEMENTS AND DRAINAGE OF INTRA-ABDOMINAL ABSCESSES AND MESH PLACEMENT. HAS HAD MULTPLE EPISODES OF SEPSIS AND GENERALIZED DECONDITIONING AND REQUIRED INPATIENT REHAB STAYS AFTER EACH ADMIT. MULTIPLE VISITS SINCE FIRST VISIT HERE 10/31/20 Physical Exam Vital Signs - First Documented 05/05/22 19:24 Pulse 90 Resp 24 B/P (MAP) 173/111 (131) Pulse Ox 97 O2 Delivery Room Air Capillary Refill : Height: '" Weight: lbs. oz. 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, no motor/sensory deficits, alert, normal mood/affect, oriented x 3 Skin: normal color, warm/dry Procedures/Interventions Date of ETT Placement: Nov 15, 2020 Progress/Results/Core Measures Suspected Sepsis SIRS Temperature: Pulse: 90 Respiratory Rate: 24 Blood Pressure 173 /111 Mean: 131 Results/Orders Lab Results Laboratory Tests Test 05/05/22 19:35 Range/Units Influenza Type A (RT-PCR) Not Detected Not Detecte Influenza Type B (RT-PCR) Not Detected Not Detecte SARS-CoV-2 RNA (RT-PCR) Not Detected Not Detecte My Orders Orders - MAMTA MORAN DO Covid 19 Inhouse Test (05/05/22 19:19) Influenza A And B By Pcr (05/05/22 19:19) Isolation Central Supply Req (05/05/22 19:19) Vital Signs/I&O 05/05/22 05/05/22 19:24 19:52 Pulse 90 85 Resp 24 18 B/P (MAP) 173/111 (131) 131/65 Pulse Ox 97 99 O2 Delivery Room Air Room Air Capillary Refill : Blood Pressure Mean: 131 Progress Note : Progress Note PPE WORN AT ALL TIMES COVID AND FLU TESTING DONE O2 SAT 95% BUT PT IS DYSPNEIC AND NOT WEARING HER HOME O2 THAT SHE BROUGHT WITH HER PLACED ON O2 AT 2L/NC AND DYSPNEA IMPROVED. Departure Impression Primary Impression: COPD (chronic obstructive pulmonary disease) Additional Impressions: Bronchitis COVID LIKE ILLNESS Smoker Disposition: HOME, SELF-CARE Condition: Stable Departure-Patient Inst. Decision time for Depature: 20:27 Referrals: WILFREDO MARTÍNEZ DO Patient Instructions: COPD Exacerbation, Adult ED, COVID-19 Tests Add. Discharge Instructions: NO SMOKING WEAR YOUR OXYGEN AT 2-3 LITERS ALL THE TIME USE YOUR TRELEGY INHALER EVERY DAY USE YOUR ALBUTEROL INHALER EVERY 4 HOURS NEEDED WITH A SPACER CONTINUE YOUR REGULAR MEDICATIONS PRESCRIBED FOLLOW UP WITH YOUR DR IN 2-3 DAYS IF NO BETTER QUARANTINE LONG YOU ARE ILL, YOU MAY NEED TO BE RECHECKED FOR COVID IN 2-3 DAYS IF YOU ARE STILL HAVING SYMPTOMS All discharge instructions reviewed with patient and/or family. Voiced understanding. Scripts Methylprednisolone (Medrol) 4 Mg Tab.ds.pk 4 MG PO UD for 6 Days, #21 PKG PER DOSE PACK INSTRUCTIONS Prov: MAMTA MORAN DO 05/05/22 Doxycycline Hyclate (Doxycycline Hyclate) 100 Mg Tablet 100 MG PO BID, #20 TAB 0 Refills Prov: MAMTA MORAN DO 05/05/22 MAMTA MORAN DO May 05, 2022 19:44
[2022-05-05] MEDS ORDERED: METH4TAB PO (20:31)
[2022-05-05] MEDS ORDERED: DOXY100T2 PO (20:31)
== END 2022-05-05 20:37 | disposition home or self-care (01) ==
LOC: EDUNIT# 18:16 → ER 18:18
DX: J44.9 Chronic obstructive pulmonary disease, unspecified (principal); F17.210 Nicotine dependence, cigarettes, uncomplicated; Z99.81 Dependence on supplemental oxygen; Z93.3 Colostomy status; Z20.822 Contact with and (suspected) exposure to COVID-19; Z85.038 Personal history of other malignant neoplasm of large intestine; Z79.899 Other long term (current) drug therapy; Z28.310 Unvaccinated for COVID-19
CPT/HCPCS: 87636; 99283

== ENCOUNTER 2022-05-25 16:20 | Emergency (ER) | payer MEDICARE ==
[~2022-05-25] VITALS: Ht 157.2 cm; Wt 79.8 kg
[~2022-05-25 16:20] MED LIST changes: +DOXY100T2 PO
--- NOTE | 2022-05-25 17:38 | ED General ---
General Chief Complaint: General Problems/Pain Stated Complaint: PAIN ALL OVER Nursing Triage Note: PT ARRIVED VIA WHEELCHAIR A/O X4. PT STATED THAT SHE HAS HAD WEAKNESS THE LAST COUPLE OF DAYS AND INCREASED HUNGER. Source of Information: Patient Exam Limitations: No Limitations (VENUS ASHER MD) History of Present Illness Date Seen by Provider: May 25, 2022 Time Seen by Provider: 17:21 Initial Comments Patient is a 76-year-old female with a history of colon cancer who presents to the emergency department today with a chief complaint of feeling generally weak, very hungry and just overall not well. She states symptoms have been coming on for about a week to 10 days. She has not called her primary care physician's office about the symptoms. She has prior surgical history of colostomy and ileostomy. Her colostomy is the primary function site. She occasionally has a little blood when she changes her dressings. No black tarry stools. She reports normal urine output without dysuria, urgency or frequency. No fevers or chills. She adamantly denies COVID concerns. She is not short of breath however she still smokes at least 10 cigarettes daily. Her colon cancer was in 2020. Her surgeon was Dr. XIONG. Her primary care doctor is Dr. Chapman. She states in the last couple of months Dr. Chapman has increased her magnesium to 500 mg 3 times daily. She states over the last couple of weeks she has decreased this as she had increased output from her ostomy. She thought it also might help curb her hunger. She states since she decreased the dose she feels worse. She is tolerating oral intake well. She is thirsty. All other review of systems reviewed and negative except as stated Timing/Duration: Other (1 week to 10 days) Associated Systoms: Malaise, Other ("HUNGRY") (VENUS ASHER MD) Allergies and Home Medications Allergies Coded Allergies: Penicillins (Verified Allergy, Unknown, Anaphylaxis, 09/26/20) budesonide (Verified Allergy, Unknown, Nausea, PT USES TRELEGY, 12/20/20) formoterol (Verified Allergy, Unknown, Nausea, 09/26/20) midazolam (Verified Allergy, Unknown, Anaphylaxis, pt has rec Lorazepam & alprazolam in the past, 02/04/21) Has received Lorazepam & alprazolam without issue Patient Home Medication List Home Medication List Reviewed: Yes (VENUS ASEHR MD) Albuterol Sulfate (Albuterol Sulfate) 2.5 Mg/3 Ml Vial.neb, 2.5 MG INH Q4H PRN for WHEEZING Prescribed by: KAYLA DUNCAN on 12/29/21 1434 Ascorbate Calcium (Vitamin C) 500 Mg Tablet, 500 MG PO DAILY, (Reported) Entered as Reported by: VICKI CARDOSO on 08/11/211530 Cefdinir (Cefdinir) 300 Mg Capsule, 300 MG PO BID Prescribed by: MAMTA MORAN on 10/30/212128 Docusate Sodium (Stool Softener) 100 Mg Tablet, 100-200 MG PO BID PRN for CONSTIPATION-1ST LINE, (Reported) Entered as Reported by: VICKI CARDOSO on 08/11/211530 Doxycycline Hyclate (Doxycycline Hyclate) 100 Mg Tablet, 100 MG PO BID Prescribed by: MAMTA MORAN on 05/05/222030 Fluticasone/Umeclidin/Vilanter (Trelegy Ellipta 100-62.5-25) 1 Each Blst.w.dev, 1 EACH IH DAILY, (Reported) Entered as Reported by: VICKI CARDOSO on 08/11/211530 Magnesium Oxide (Magnesium) 400 Mg Tablet, 400 MG PO BID Prescribed by: MAMTA MORAN on 10/30/212128 Methylprednisolone (Medrol) 4 Mg Tab.ds.pk, 4 MG PO UD Prescribed by: MAMTA MORAN on 11/17/211927 Methylprednisolone (Medrol) 4 Mg Tab.ds.pk, 4 MG PO UD Prescribed by: MAMTA MORAN on 05/05/222030 Metoprolol Tartrate (Metoprolol Tartrate) 25 Mg Tablet, 25 MG PO DAILY Prescribed by: ALICIA FULTON on 08/12/21 1035 Multivitamin/Iron/Folic Acid (Multivitamin with Iron Tablet) 1 Each Tablet, 1 EACH PO DAILY, (Reported) Entered as Reported by: VICKI CARDOSO on 08/11/21 153 Ondansetron (Ondansetron Odt) 4 Mg Tab.rapdis, 4 MG PO Q6H PRN for NAUSEA/VOMITING Prescribed by: PINKY BULLOCK on 11/14/21 1854 Pantoprazole Sodium (Pantoprazole Sodium) 40 Mg Tablet.dr, 40 MG PO BID, (Report ed) Entered as Reported by: VICKI CARDOSO on 08/11/21 1531 Prednisone (Prednisone) 20 Mg Tab, 40 MG PO DAILY Prescribed by: MAMTA MORAN on 10/30/212128 Prednisone (Prednisone) 20 Mg Tab, 20 MG PO DAILY Prescribed by: KAYLA DUNCAN on 12/29/21 1434 Sodium Chloride (Sodium Chloride) 1 Gm Tab, 1 GM PO DAILY, (Reported) Entered as Reported by: VICKI CARDOSO on 08/11/21 153 Review of Systems Review of Systems Constitutional: see HPI EENTM: no symptoms reported Respiratory: no symptoms reported Cardiovascular: no symptoms reported Gastrointestinal: No constipation, No diarrhea, No melena; other (increased appetite) Genitourinary: no symptoms reported : No Musculoskeletal: no symptoms reported Skin: no symptoms reported Psychiatric/Neurological: Weakness (VENUS ASHER MD) All Other Systems Reviewed Negative Unless Noted: Yes (VENUS ASHER MD) Past Rcbghge-Tiqujo-Hghmqm Hx Patient Social History Tobacco Use?: Yes Tobacco type used: Cigarettes Substance use?: No Alcohol Use?: No Pt feels they are or have been: Unable to obtain (VENUS ASHER MD) Immunizations Up To Date Tetanus Booster (TDap): Unknown Influenza Vaccine Up-to-Date: Yes; Up-to-Date First/Initial COVID19 Vaccinat: NONE Second COVID19 Vaccination Sammy: NONE Third COVID19 Vaccination Date: NONE (VENUS ASHER MD) Seasonal Allergies Seasonal Allergies: Yes (VENUS ASHER MD) Past Medical History Surgery/Hospitalization HX: BOWEL RESECTION, HX COLON CA Surgeries: Yes (SEE BELOW) Abdominal, Bowel Surgery, Eye Surgery, Tonsillectomy Respiratory: Yes (O2 DEPENDENT AT 2-3/NC CONTINUOUSLY) COPD Currently Using CPAP: No Currently Using BIPAP: No Cardiac: Yes High Cholesterol, Hypertension Neurological: No DBA History: Menopausal Genitourinary: Yes Bladder Infection, Renal Failure Gastrointestinal: Yes (COLON CANCER) Gastroesophageal Reflux, Chronic Constipation Musculoskeletal: Yes Arthritis, Chronic Back Pain Endocrine: Yes (LOW MAGNESIUM LEVEL) HEENT: Yes (CATARACTS REMOVED; DENTURES) Cataract Hearing Impairment: Hard of Hearing, Bilateral Hearing Aide Cancer: Yes Colon Did You Recieve Any Treatments: Yes What Type of Treatment Did You: Radiation, Surgical Intervention Psychosocial: Yes Anxiety Integumentary: No Blood Disorders: No (VENUS ASHER MD) Family Medical History No Pertinent Family Hx PAST SURGICAL HISTORY: -TONSILLECTOMY -BILATERAL CATARACT SURGERY -COLONOSCOPY -PORT LEFT CHEST -11/01/20--HAD EXTENDED RIGHT HEMICOLECTOMY WITH SUBSEQUENT ILEOCOLONIC TORSION, WITH PERMANENT ILEOSTOMY; MULTIPLE RESECTIONS AND REVISIONS, DEBRIDEMENTS AND DRAINAGE OF INTRA-ABDOMINAL ABSCESSES AND MESH PLACEMENT. HAS HAD MULTPLE EPISODES OF SEPSIS AND GENERALIZED DECONDITIONING AND REQUIRED INPATIENT REHAB STAYS AFTER EACH ADMIT. MULTIPLE VISITS SINCE FIRST VISIT HERE 10/31/20 (VENUS ASHER MD) Physical Exam Vital Signs Vital Signs - First Documented 05/25/22 16:50 Temp 36.0 Pulse 88 Resp 20 B/P (MAP) 146/85 (105) Pulse Ox 97 O2 Delivery Nasal Cannula O2 Flow Rate 2.00 (MAMTA MORAN DO) Vital Signs Capillary Refill : Less Than 3 Seconds (VENUS ASHER MD) Height, Weight, BMI Height: '" Weight: lbs. oz. kg; 32.00 BMI Method: General Appearance: No Apparent Distress, WD/WN, Other (Smiling, pleasant and interactive) Eyes: Bilateral Eye Normal Inspection, Bilateral Eye PERRL, Bilateral Eye EOMI HEENT: PERRL/EOMI Neck: Normal Inspection Respiratory: Normal Breath Sounds, No Accessory Muscle Use, No Respiratory Distress, Wheezing (Occasional, minimal scattered wheeze, no respiratory distress) Cardiovascular: Regular Rate, Rhythm, Normal Peripheral Pulses Gastrointestinal: Non Tender, Soft, Other (Colostomy right mid abdomen, ileostomy left lateral abdomen) Extremity: Normal Capillary Refill, Normal Inspection, Normal Range of Motion, Non Tender, No Calf Tenderness, No Pedal Edema Neurologic/Psychiatric: Alert, Oriented x3, No Motor/Sensory Deficits, Normal 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, 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 Norm as Tested Skin: Normal Color, Warm/Dry (VENUS ASHER MD) Procedures/Interventions Date of ETT Placement: Nov 15, 2020 (VENUS ASHER MD) Progress/Results/Core Measures Suspected Sepsis SIRS Temperature: Pulse: 88 Respiratory Rate: 20 Blood Pressure 146 /85 Mean: 105 (VENUS ASHER MD) Results/Orders Lab Results Laboratory Tests Test 05/25/22 17:40 Range/Units White Blood Count 11.8 H 4.3-11.0 10^3/uL Red Blood Count 4.20 3.80-5.11 10^6/uL Hemoglobin 14.1 11.5-16.0 g/dL Hematocrit 41 35-52 % Mean Corpuscular Volume 97 80-99 fL Mean Corpuscular Hemoglobin 34 25-34 pg Mean Corpuscular Hemoglobin Concent 35 32-36 g/dL Red Cell Distribution Width 11.7 10.0-14.5 % Platelet Count 245 130-400 10^3/uL Mean Platelet Volume 9.2 9.0-12.2 fL Immature Granulocyte % (Auto) 1 % Neutrophils (%) (Auto) 66 42-75 % Lymphocytes (%) (Auto) 23 12-44 % Monocytes (%) (Auto) 8 0-12 % Eosinophils (%) (Auto) 1 0-10 % Basophils (%) (Auto) 1 0-10 % Neutrophils # (Auto) 7.8 1.8-7.8 10^3/uL Lymphocytes # (Auto) 2.8 1.0-4.0 10^3/uL Monocytes # (Auto) 1.0 0.0-1.0 10^3/uL Eosinophils # (Auto) 0.2 0.0-0.3 10^3/uL Basophils # (Auto) 0.1 0.0-0.1 10^3/uL Immature Granulocyte # (Auto) 0.1 0.0-0.1 10^3/uL Sodium Level 136 135-145 MMOL/L Potassium Level 4.9 3.6-5.0 MMOL/L Chloride Level 99 98-107 MMOL/L Carbon Dioxide Level 25 21-32 MMOL/L Anion Gap 12 5-14 MMOL/L Blood Urea Nitrogen 24 H 7-18 MG/DL Creatinine 1.18 0.60-1.30 MG/DL Estimat Glomerular Filtration Rate 48 BUN/Creatinine Ratio 20 Glucose Level 105 70-105 MG/DL Calcium Level 10.4 H 8.5-10.1 MG/DL Magnesium Level 1.6 1.6-2.4 MG/DL (MAMTA MORAN DO) Vital Signs/I&O 05/25/22 16:50 Temp 36.0 Pulse 88 Resp 20 B/P (MAP) 146/85 (105) Pulse Ox 97 O2 Delivery Nasal Cannula O2 Flow Rate 2.00 (MAMTA MORAN DO) Vital Signs/I&O Capillary Refill : Less Than 3 Seconds (VENUS ASHER MD) Blood Pressure Mean: 105 Progress Note : Progress Note 1800--ASSUMED CARE FROM DR. ASHER, ALL STUDIES PENDING REVIEWED TEST RESULTS WITH PT, OFFERED TO DO ADDITIONAL TESTING SUCH ADDITIONAL LAB, UA, CT SCAN, ETC, AND SHE DECLINES ANY OTHER TESTS AND WANTS TO GO HOME (MAMTA MORAN DO) Departure Impression Primary Impression: Weakness Disposition: 01 HOME, SELF-CARE Condition: Stable Departure-Patient Inst. Decision time for Depature: 18:20 (MAMTA MORAN DO) Referrals: NO,LOCAL PHYSICIAN (PCP) Primary Care Physician Patient Instructions: Weakness ED Add. Discharge Instructions: CONTINUE YOUR REGULAR MEDICATIONS FOLLOW UP WITH YOUR DR THIS WEEK All discharge instructions reviewed with patient and/or family. Voiced understanding. VENUS ASHER MD May 25, 2022 17:38 MAMTA MORAN DO May 25, 2022 17:59
[2022-05-25 17:50] LABS: BASOPHILS # (AUTO) 0.1 10^3/uL (0.0-0.1); BASOPHILS % (AUTO) 1 % (0-10); EOSINOPHILS # (AUTO) 0.2 10^3/uL (0.0-0.3); EOSINOPHILS % (AUTO) 1 % (0-10); HEMATOCRIT 41 % (35-52); HEMOGLOBIN 14.1 g/dL (11.5-16.0); LYMPHOCYTES # (AUTO) 2.8 10^3/uL (1.0-4.0); LYMPHOCYTES % (AUTO) 23 % (12-44); MEAN CORPUSCULAR HEMOGLOBIN 34 pg (25-34); MEAN CORPUSCULAR HGB CONC 35 g/dL (32-36); MEAN CORPUSCULAR VOLUME 97 fL (80-99); MEAN PLATELET VOLUME 9.2 fL (9.0-12.2); MONOCYTES % (AUTO) 8 % (0-12); NEUTROPHILS # (AUTO) 7.8 10^3/uL (1.8-7.8); NEUTROPHILS % (AUTO) 66 % (42-75); PLATELET COUNT 245 10^3/uL (130-400); WHITE BLOOD COUNT 11.8 10^3/uL (4.3-11.0)
[2022-05-25 18:11] LABS: CALCIUM 10.4 MG/DL (8.5-10.1); CREATININE SERUM 1.18 MG/DL (0.60-1.30); MAGNESIUM 1.6 MG/DL (1.6-2.4); POTASSIUM 4.9 MMOL/L (3.6-5.0)
[2022-05-25 18:25] VITALS: BP 106/62
== END 2022-05-25 18:25 | disposition home or self-care (01) ==
LOC: EDUNIT# 16:20 → ER 16:21
DX: R53.1 Weakness (principal); F17.210 Nicotine dependence, cigarettes, uncomplicated; Z85.038 Personal history of other malignant neoplasm of large intestine; Z93.3 Colostomy status; Z93.2 Ileostomy status; Z28.310 Unvaccinated for COVID-19
CPT/HCPCS: 36415; 80048; 83735; 85025

== ENCOUNTER → 2022-10-01 | Outpatient (CLI) | payer MEDICARE ==
[~2022-10-01] VITALS: Ht 157 cm; Wt 85.0 kg
[~2022-10-01] MED LIST changes: +ALTEPLASE 2 MG (CATHFLO) IV ONE; +LEVO-55 PO; -LEVO500T81 PO; +LEVO750T PO; -LEVO750T39 PO; +WATER (STERILE) FOR INJECTION 10 ML ONE
[2022-10-01 13:27] VITALS: BP 117/67
--- NOTE | 2022-10-01 13:53 | Diagnostic Imaging Report ---
INDICATION: Malfunctioning Port-A-Cath. TECHNIQUE: Frontal chest obtained at 01:39 p.m. FINDINGS: Study is somewhat technically limited. There is borderline heart size with chronic-appearing increased interstitial markings. There is no pneumothorax or pleural fluid or new infiltrate. Port-A-Cath over the left chest is seen with its tip overlying the mid SVC. No overt catheter discontinuity is seen. IMPRESSION: No change in Port-A-Cath compared with 12/29/2021. No new infiltrate or pleural fluid. Dictated by: Dictated on workstation # [id number]
== END ==
LOC: SDC 12:57
PROVIDERS: ATTEND Surgery
DX: T82.598A Other mechanical complication of other cardiac and vascular devices and implants, initial encounter (principal)
CPT/HCPCS: 71045

== ENCOUNTER → 2022-11-24 | Outpatient (RCR) | payer MEDICARE ==
[~2022-11-24] MED LIST changes: -ALTEPLASE 2 MG (CATHFLO) IV ONE; -WATER (STERILE) FOR INJECTION 10 ML ONE
== END | disposition home or self-care (01) ==
LOC: ONC 11-23 10:58
PROVIDERS: ATTEND Radiology Radiation Oncology
DX: Z51.0 Encounter for antineoplastic radiation therapy (principal); C34.11 Malignant neoplasm of upper lobe, right bronchus or lung; J43.9 Emphysema, unspecified; E78.00 Pure hypercholesterolemia, unspecified; I10 Essential (primary) hypertension; F17.210 Nicotine dependence, cigarettes, uncomplicated; Z85.038 Personal history of other malignant neoplasm of large intestine; Z90.49 Acquired absence of other specified parts of digestive tract; Z99.81 Dependence on supplemental oxygen; Z79.899 Other long term (current) drug therapy
CPT/HCPCS: 77334

== ENCOUNTER 2022-12-21 10:52 | Outpatient (RCR) | payer MEDICARE | END 2022-12-22 | disposition home or self-care (01) | LOC: ONC 10:52 | PROVIDERS: ATTEND Radiology Radiation Oncology | DX: Z51.0 Encounter for antineoplastic radiation therapy (principal); C18.4 Malignant neoplasm of transverse colon; R91.1 Solitary pulmonary nodule; J44.9 Chronic obstructive pulmonary disease, unspecified; I10 Essential (primary) hypertension; E78.00 Pure hypercholesterolemia, unspecified; Z72.0 Tobacco use | CPT/HCPCS: 77293; 77300; 77301; 77338; 77370; 77373; 77470 ==

== ENCOUNTER 2022-12-24 10:45 | Outpatient (RCR) | payer MEDICARE ==
[~2022-12-24 10:45] MED LIST changes: +SENN-271 PO; -SENN1TAB76 PO
[2023-04-07] MEDS ORDERED: MONT-40 PO (11:01)
[2023-04-07] MEDS ORDERED: FLUT1BLS15 INH (11:01)
[2023-04-07] MEDS ORDERED: NF-MAG64T PO (11:01)
[2023-04-07] MEDS ORDERED: ACET-2267 PO (11:01)
[2023-04-07] MEDS ORDERED: AMLO-250 PO (11:01)
[2023-04-07] MEDS ORDERED: MTP25TSR PO (11:01)
[2023-04-07] MEDS ORDERED: MGX400T PO (11:01)
[2023-04-07] MEDS ORDERED: IBUP-30 PO (11:01)
[2023-04-07] MEDS ORDERED: MULT-1136 PO (11:01)
[2023-04-07] MEDS ORDERED: OXYC5TAB PO (11:01)
[2023-04-07] MEDS ORDERED: CHOL200059 PO (11:01)
[2023-04-07] MEDS ORDERED: TOPI25TA10 PO (11:01)
[2023-04-07] MEDS ORDERED: SIMV40TA25 PO (11:01)
[2023-04-07] MEDS ORDERED: CETI10TA17 PO (11:03)
[2023-04-09] MEDS ORDERED: ALBU2.5V4 INH (11:18)
[2023-04-09] MEDS ORDERED: NICO1PAT34 TD (11:18)
[2023-04-09] MEDS ORDERED: CEFE1FRO IV (11:18)
[2023-04-09] MEDS ORDERED: ENOX40DI8 SC (11:18)
[2023-04-09] MEDS ORDERED: INSU100V5 SQ (11:18)
[2023-04-09] MEDS ORDERED: [UNRECOGNIZED DRUG - CODE] IV (11:18)
[2023-04-09] MEDS ORDERED: ALPR.25T PO (11:18)
[2023-04-09] MEDS ORDERED: INSU100V16 SC (11:18)
[2023-04-09] MEDS ORDERED: MAGN2PIG IV (11:19)
== END 2023-04-21 15:20 | disposition home or self-care (01) ==
LOC: ONC 10:45
PROVIDERS: ATTEND Radiology Radiation Oncology
DX: C18.4 Malignant neoplasm of transverse colon (principal); R91.1 Solitary pulmonary nodule; J44.9 Chronic obstructive pulmonary disease, unspecified; I10 Essential (primary) hypertension; E78.00 Pure hypercholesterolemia, unspecified; Z72.0 Tobacco use

== ENCOUNTER 2023-01-21 11:23 | Outpatient (RCR) | payer MEDICARE | END 2023-01-22 | disposition home or self-care (01) | LOC: ONC 11:23 | PROVIDERS: ATTEND Radiology Radiation Oncology | DX: Z51.0 Encounter for antineoplastic radiation therapy (principal); C18.4 Malignant neoplasm of transverse colon; R91.1 Solitary pulmonary nodule; J44.9 Chronic obstructive pulmonary disease, unspecified; I10 Essential (primary) hypertension; E78.00 Pure hypercholesterolemia, unspecified; Z72.0 Tobacco use | CPT/HCPCS: 77336; G0463; 99203 ==

== ENCOUNTER 2023-04-06 16:30 | Inpatient (IN) | payer MEDICARE ==
[~2023-04-06] VITALS: Ht 157.5 cm; Wt 87.3 kg
[2023-04-06 18:00] VITALS: BP 118/93
[2023-04-06] MEDS ORDERED: ONDANSETRON 4 MG (ZOFRAN) ORAL DISSOLVE TAB PO PRN (18:15)
[2023-04-06] MEDS ORDERED: HYDROmorphone 2 MG/ML VIAL (DILAUDID) IV PRN (18:15)
[2023-04-06] MEDS ORDERED: ANTACID SUSP 30 ML UDC (MYLANTA) PO PRN (18:15)
[2023-04-06] MEDS ORDERED: ACETAMINOPHEN 325 MG TABLET PO PRN (18:15)
[2023-04-06] MEDS ORDERED: BISACODYL 10 MG SUPP (DULCOLAX) PR PRN (18:15)
[2023-04-06] MEDS ORDERED: ONDANSETRON 4 MG/2 ML (SDV) Z0FRAN IV PRN (18:15)
[2023-04-06] MEDS ORDERED: MILK OF MAGNESIA 400 MG/5 ML 30 ML UDC PO PRN (18:15)
[2023-04-06] MEDS ORDERED: diphenhydrAMINE 25 MG TAB (BENADRYL) PO PRN (18:15)
[2023-04-06] MEDS ORDERED: MELATONIN 3 MG TABLET PO PRN (18:15)
[2023-04-06] MEDS ORDERED: CALCIUM CARBONATE 500 MG (TUMS) TAB.CHEW PO PRN (18:15)
[2023-04-06] MEDS ORDERED: diphenhydrAMINE 50 MG/ML INJ (BENADRYL) IVP PRN (18:15)
[2023-04-06] MEDS ORDERED: LACTULOSE SYRUP 10GM/15ML (ENULOSE) 30ML UDC PO PRN (18:15)
[2023-04-06] MEDS ORDERED: polyethylene glycoL POWDER 17 GM (MIRALAX) PACK PO PRN (18:15)
--- NOTE | 2023-04-06 18:38 | Diagnostic Imaging Report ---
INDICATION: Fever. TIME OF EXAM: 6:36 p.m. COMPARISON: Correlation is made with prior chest from 10/01/2022. FINDINGS: Heart size is stable. There is some atelectasis at the left base. Otherwise, the lungs appear clear. No infiltrate, effusion, or pneumothorax is detected. Left chest wall port has tip overlying the SVC. IMPRESSION: Left basilar subsegmental atelectasis. Dictated by: Dictated on workstation # [id number]
[2023-04-06 18:51] LABS: BASOPHILS % (AUTO) 0 % (0-10); EOSINOPHILS # (AUTO) 0.1 10^3/uL (0.0-0.3); EOSINOPHILS % (AUTO) 2 % (0-10); HEMATOCRIT 33 % (35-52); HEMOGLOBIN 11.5 g/dL (11.5-16.0); LYMPHOCYTES # (AUTO) 1.5 10^3/uL (1.0-4.0); LYMPHOCYTES % (AUTO) 19 % (12-44); MEAN CORPUSCULAR HEMOGLOBIN 33 pg (25-34); MEAN CORPUSCULAR HGB CONC 35 g/dL (32-36); MEAN CORPUSCULAR VOLUME 93 fL (80-99); MEAN PLATELET VOLUME 9.5 fL (9.0-12.2); MONOCYTES # (AUTO) 0.8 10^3/uL (0.0-1.0); MONOCYTES % (AUTO) 10 % (0-12); NEUTROPHILS # (AUTO) 5.2 10^3/uL (1.8-7.8); NEUTROPHILS % (AUTO) 69 % (42-75); PLATELET COUNT 215 10^3/uL (130-400); WHITE BLOOD COUNT 7.7 10^3/uL (4.3-11.0)
[2023-04-06 19:00] LABS: ALBUMIN 3.9 GM/DL (3.2-4.5)
[2023-04-06 19:01] LABS: POTASSIUM 4.6 MMOL/L (3.6-5.0)
[2023-04-06 19:02] LABS: CALCIUM 9.6 MG/DL (8.5-10.1); INR 1.1 (0.8-1.4); PROTHROMBIN TIME PATIENT 14.1 SEC (12.2-14.7)
[2023-04-06 19:03] LABS: TOTAL PROTEIN 6.9 GM/DL (6.4-8.2)
[2023-04-06 19:05] LABS: BILIRUBIN,TOTAL 0.3 MG/DL (0.1-1.0)
[2023-04-06 19:07] LABS: CREATININE SERUM 1.05 MG/DL (0.60-1.30)
[2023-04-06 19:09] LABS: MAGNESIUM 1.3 MG/DL (1.6-2.4)
[2023-04-06] MEDS ORDERED: VANCOMYCIN INJECTION 0.1 MG in NS (IVPB) 250 ML IV SCH (19:30)
[2023-04-06] MEDS: ENOXAPARIN 40 MG/0.4 ML (LOVENOX) SYR SC SCH (19:34)
[2023-04-06] MEDS: NS IV 1000 ML 1,000 ML IV SCH (19:35)
[2023-04-06] MEDS ORDERED: CEFEPIME 1,000 MG/NS 50 ML IVPB IV NR ×2 (19:45)
[2023-04-06] MEDS: MAGNESIUM 1 GM/100 ML IVPB 100 ML IV SCH ×4 (19:57→23:00)
[2023-04-06 20:00] VITALS: BP 148/77
[2023-04-06] MEDS ORDERED: VANCOMYCIN 1500MG/300ML PREMIX IV NR (20:00)
[2023-04-06] MEDS: DOCUSATE SODIUM 100 MG (COLACE) CAP PO SCH (20:22)
[2023-04-06] MEDS: SENNOSIDES 8.6 MG (SENOKOT) TAB PO SCH (20:23)
[2023-04-06 20:30] VITALS: BP 118/93
[2023-04-06] MEDS ORDERED: RT-ALBUTEROL SULF 2.5 MG/3 ML PRE-MIX VIAL INH PRN (20:45)
[2023-04-06] MEDS: inSUlin ASPART (NovoLOG) 1 UNIT/0.01 ML (CHARGE PER UNIT) SC SCH (20:49)
[2023-04-07] VITALS (8 sets, daily range): BP systolic 86–143; BP diastolic 52–76
[2023-04-07] MEDS: CEFEPIME INJECTION 1,000 MG in NS (IVPB) 50 ML IV SCH ×3 (03:29→20:55)
[2023-04-07 05:15] LABS: BASOPHILS % (AUTO) 0 % (0-10); EOSINOPHILS # (AUTO) 0.2 10^3/uL (0.0-0.3); EOSINOPHILS % (AUTO) 3 % (0-10); HEMATOCRIT 33 % (35-52); HEMOGLOBIN 11.6 g/dL (11.5-16.0); LYMPHOCYTES # (AUTO) 1.4 10^3/uL (1.0-4.0); LYMPHOCYTES % (AUTO) 23 % (12-44); MEAN CORPUSCULAR HEMOGLOBIN 33 pg (25-34); MEAN CORPUSCULAR HGB CONC 35 g/dL (32-36); MEAN CORPUSCULAR VOLUME 93 fL (80-99); MONOCYTES # (AUTO) 0.7 10^3/uL (0.0-1.0); MONOCYTES % (AUTO) 12 % (0-12); NEUTROPHILS # (AUTO) 3.8 10^3/uL (1.8-7.8); NEUTROPHILS % (AUTO) 62 % (42-75); PLATELET COUNT 214 10^3/uL (130-400); WHITE BLOOD COUNT 6.2 10^3/uL (4.3-11.0)
[2023-04-07 05:34] LABS: ALBUMIN 3.8 GM/DL (3.2-4.5); BILIRUBIN,TOTAL 0.3 MG/DL (0.1-1.0); CALCIUM 9.3 MG/DL (8.5-10.1); CREATININE SERUM 0.98 MG/DL (0.60-1.30); MAGNESIUM 2.5 MG/DL (1.6-2.4); POTASSIUM 4.3 MMOL/L (3.6-5.0); TOTAL PROTEIN 6.7 GM/DL (6.4-8.2)
--- NOTE | 2023-04-07 05:44 | History & Physical ---
History of Present Illness HPI/Chief Complaint Chief complaint: Sepsis from wound infection and early pneumonia HPI: This is a 77-year-old female clinic patient of mine with end-stage COPD oxygen dependent continues to smoke, catastrophic abdominal surgeries with di verting ileostomy from cancer and lung cancer being treated by Dr. 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 She reports there is been drainage out of her abdominal wound and that she has been seeing wound care every week for the last year and a half. I did speak with Dr. Lynch who recommended admission he will see if he needs to wash the wound out she does appear to have an early pneumonia with elevated lactic acid so I gave her IV fluid but likely that was due to hypovolemia. She did have diarrhea. Currently her labs are improved and awaiting general surgery consultation Source: patient Exam Limitations: no limitations Date Seen 04/07/23 Time Seen by a Provider: 08:30 Attending Physician Genna Chapman DO PCP Admitting Physician: Genna Chapman DO Attending Physician: Genna Chapman DO Referring Physician Date of Admission Apr 06, 2023 at 17:46 Home Medications & Allergies Home Medications Reviewed patient Home Medication Reconciliation performed by pharmacy medication reconciliations metal wire technician and/or nursing. Patients Allergies have been reviewed. Allergies Allergies Coded Allergies Penicillins (Verified Allergy, Unknown, Anaphylaxis, 09/26/20) budesonide (Verified Allergy, Unknown, Nausea, PT USES TRELEGY, 12/20/20) formoterol (Verified Allergy, Unknown, Nausea, 09/26/20) midazolam (Verified Allergy, Unknown, Anaphylaxis, pt has rec Lorazepam & alprazolam in the past, 02/04/21) Has received Lorazepam & alprazolam without issue Past Gzdbzsi-Bmgxvh-Hwpcog Hx Past Med/Social Hx: Reviewed Nursing Past Med/Soc Hx, Reviewed and Corrections made Patient Social History Marrital Status: single Employed/Student: retired Alcohol Use: Denies Use Smoking Status: Current Everyday Smoker Type Used: Cigarettes 2nd Hand Smoke Exposure: No Recent Hopitalizations: No Immunizations Up To Date Tetanus Booster (TDap): Unknown Date of Pneumonia Vaccine: Jul 25, 2020 Date of Influenza Vaccine: Aug 06, 2020 Seasonal Allergies Seasonal Allergies: Yes Past Medical History Surgeries: Abdominal, Bowel Surgery, Eye Surgery, Tonsillectomy Respiratory: COPD, Pneumonia Currently Using CPAP: No Currently Using BIPAP: No Cardiac: High Cholesterol, Hypertension Menopausal Genitourinary: Bladder Infection, Renal Failure Gastrointestinal: Gastroesophageal Reflux, Chronic Constipation Musculoskeletal: Arthritis, Chronic Back Pain HEENT: Cataract Hearing Impairment: Hard of Hearing, Bilateral Hearing Aide Cancer: Lung, Colon Did You Recieve Any Treatments: Yes What Type of Treatment Did You: Radiation, Surgical Intervention Psychosocial: Anxiety History of Blood Disorders: No Family History No Pertinent Family Hx PAST SURGICAL HISTORY: -TONSILLECTOMY -BILATERAL CATARACT SURGERY -COLONOSCOPY -PORT LEFT CHEST -11/01/20--HAD EXTENDED RIGHT HEMICOLECTOMY WITH SUBSEQUENT ILEOCOLONIC TORSION, WITH PERMANENT ILEOSTOMY; MULTIPLE RESECTIONS AND REVISIONS, DEBRIDEMENTS AND DRAINAGE OF INTRA-ABDOMINAL ABSCESSES AND MESH PLACEMENT. HAS HAD MULTPLE EPISODES OF SEPSIS AND GENERALIZED DECONDITIONING AND REQUIRED INPATIENT REHAB STAYS AFTER EACH ADMIT. MULTIPLE VISITS SINCE FIRST VISIT HERE 10/31/20 Review of Systems Constitutional: see HPI, malaise, weakness EENTM: no symptoms reported Respiratory: dyspnea on exertion Cardiovascular: no symptoms reported Gastrointestinal: no symptoms reported Genitourinary: no symptoms reported Musculoskeletal: no symptoms reported Skin: other (Draining wound) Psychiatric/Neurological: No Symptoms Reported Physical Exam Physical Exam Vital Signs Vital Signs - First Documented 04/06/23 04/06/23 04/06/23 18:00 19:35 20:54 Temp 36.5 Pulse 105 Resp 21 B/P (MAP) 118/93 (101) Pulse Ox 97 O2 Delivery Nasal Cannula O2 Flow Rate 2.00 FiO2 96 Capillary Refill : Height, Weight, BMI Height: '" Weight: lbs. oz. kg; 34.74 BMI Method: General Appearance: WD/WN, Anxious, Chronically ill, Mild Distress Eyes: Bilateral Eye Normal Inspection, Bilateral Eye PERRL HEENT: PERRL/EOMI, Normal ENT Inspection, Pharynx Normal Neck: Full Range of Motion, Normal Inspection, Non Tender, Supple, Carotid Bruit Respiratory: Chest Non Tender, Lungs Clear, No Respiratory Distress, Accessory Muscle Use, Decreased Breath Sounds Cardiovascular: Regular Rate, Rhythm, No Edema, No Gallop, No JVD, No Murmur, Normal Peripheral Pulses Gastrointestinal: Normal Bowel Sounds, No Organomegaly, No Pulsatile Mass, Non Tender, Soft Back: Normal Inspection, No CVA Tenderness, No Vertebral Tenderness Extremity: Normal Capillary Refill, Normal Inspection, Normal Range of Motion, Non Tender, No Calf Tenderness, No Pedal Edema Neurologic/Psychiatric: Alert, Oriented x3, No Motor/Sensory Deficits, 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 Assessment/Plan Admission Diagnosis Assessment: Severe fatigue with sepsis Early pneumonia Abdominal wound infection COPD Colon cancer status post resection with diverting ileostomy Lung cancer status post radiation Chronic hypomagnesemia Anxiety Severe presbycusis Plan: Supportive care IV antibiotics Dr. Lynch consult for wound care Admission Status: Inpatient Order (span 2 midnights) Reason for Inpatient Admission: sepsis GENNA CHAPMAN DO Apr 07, 2023 05:44
[2023-04-07] MEDS: inSUlin ASPART (NovoLOG) 1 UNIT/0.01 ML (CHARGE PER UNIT) SC SCH ×5 (05:50→21:37)
[2023-04-07] MEDS: RT-ALBUTEROL SULF 2.5 MG/3 ML PRE-MIX VIAL INH SCH ×4 (07:51→20:07)
[2023-04-07] MEDS ORDERED: HYPOCHLOROUS ACID/NaCl (VASHE) 250 ML IR SCH (08:45)
--- NOTE | 2023-04-07 09:04 | Wound Care Assessment ---
Wound Care Assessment Date Seen by Provider: Apr 07, 2023 Time Seen by Provider: 08:58 Chief Complaint Incisional wound HPI This pleasant 77 year old female presents to the hospital with abdominal wound infection. Bere developed colon CA in 2020 and subsequently underwent R. hemicolectomy. She had ileocolic torsion with permanent iliostomy placement with need for multiple revisions and debridements due to abscess and infected mesh. I am uncertain if mesh is still in place (patient is unaware and history of mesh only from past notes). She notes that her incisional wounds have never fully healed but have been close at times. She has many reasons for poor wound healing including 1/2 ppd smoking, elevated blood sugars on this admission, radiation history, and (possible) infected mesh. She has reportedly had repeated issues with sepsis as a result. On exam today, her wound is quite shallow but with some slough noted. She follows closely with Dr. Gomez for wound care at [place] and was most recently using a purple dressing (hydrofera blue?) that was changed twice weekly by home health. Wound culture orders are in place, as are broad spectrum IV antibiotics (appropriately). Surgery has also been consulted. Further workup will be deferred to them in light of her extensive surgical history. 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 Follows with [facility] wound care (Dr. Gomez) Review of Systems General: Fatigue Pulmonary: Dyspnea, Cough Neurological: Weakness Exam Vital Signs Date Time Temp Pulse Resp B/P (MAP) Pulse Ox O2 Delivery O2 Flow Rate FiO2 04/07/23 07:51 96 Nasal Cannula 2.00 04/07/23 07:43 36.3 93 20 100/61 (74) 04/06/23 20:54 96 Capillary Refill : General Appearance: mild distress, obese HEENT: other (KLUTI KAAH) Neck: full range of motion Cardiovascular: no edema Respiratory: no respiratory distress, no accessory muscle use, other (on suze nuous O2, SOA with conversation) Gastrointestinal: other (iliostomy, incisional herniation (chronic)) Extremities: normal inspection Neurologic/Psychiatric: alert, normal mood/affect, oriented x 3 Skin: normal color, warm/dry Skin Problem Location: torso Skin Character: drainage (serosanguinous) Wound assessment: The epithelialization is none. There is no tunneling or undermining. Drainage is large and serosanguinous. Granulation is medium and pink, Necrotic is medium and slough. The margins are flat. Measurements are an approximation as I did not have measuring tape at time of exam: 8.5x5.5x0.1cm Results Laboratory Tests 04/06/23 18:42: White Blood Count 7.7, Red Blood Count 3.52L, Hemoglobin 11.5, Hematocrit 33L, Mean Corpuscular Volume 93, Mean Corpuscular Hemoglobin 33, Mean Corpuscular Hemoglobin Concent 35, Red Cell Distribution Width 11.9, Platelet Count 215, Mean Platelet Volume 9.5, Immature Granulocyte % (Auto) 1, Neutrophils (%) (Auto) 69, Lymphocytes (%) (Auto) 19, Monocytes (%) (Auto) 10, Eosinophils (%) (Auto) 2, Basophils (%) (Auto) 0, Neutrophils # (Auto) 5.2, Lymphocytes # (Auto) 1.5, Monocytes # (Auto) 0.8, Eosinophils # (Auto) 0.1, Basophils # (Auto) 0.0, Immature Granulocyte # (Auto) 0.0, Prothrombin Time 14.1, INR Comment 1.1, Activated Partial Thromboplast Time 31, Sodium Level 128L, Potassium Level 4.6, Chloride Level 98, Carbon Dioxide Level 18L, Anion Gap 12, Blood Urea Nitrogen 17, Creatinine 1.05, Estimat Glomerular Filtration Rate 55, BUN/Creatinine Ratio 16, Glucose Level 302H, Lactic Acid Level 2.31*H, Calcium Level 9.6, Corrected Calcium 9.7, Magnesium Level 1.3L, Total Bilirubin 0.3, Aspartate Amino Transf (AST/SGOT) 32, Alanine Aminotransferase (ALT/SGPT) 45, Alkaline Phosphatase 84, Total Protein 6.9, Albumin 3.9 04/06/23 19:29: Thyroid Stimulating Hormone (TSH) 0.29L 04/06/23 19:51: Glucometer 252H 04/07/23 04:00: White Blood Count 6.2, Red Blood Count 3.56L, Hemoglobin 11.6, Hematocrit 33L, Mean Corpuscular Volume 93, Mean Corpuscular Hemoglobin 33, Mean Corpuscular Hemoglobin Concent 35, Red Cell Distribution Width 11.9, Platelet Count 214, Mean Platelet Volume 10.0, Immature Granulocyte % (Auto) 1, Neutrophils (%) (Auto) 62, Lymphocytes (%) (Auto) 23, Monocytes (%) (Auto) 12, Eosinophils (%) (Auto) 3, Basophils (%) (Auto) 0, Neutrophils # (Auto) 3.8, Lymphocytes # (Auto) 1.4, Monocytes # (Auto) 0.7, Eosinophils # (Auto) 0.2, Basophils # (Auto) 0.0, Immature Granulocyte # (Auto) 0.0, Sodium Level 132L, Potassium Level 4.3, Chloride Level 104, Carbon Dioxide Level 20L, Anion Gap 8, Blood Urea Nitrogen 15, Creatinine 0.98, Estimat Glomerular Filtration Rate 59, BUN/Creatinine Ratio 15, Glucose Level 117H, Calcium Level 9.3, Corrected Calcium 9.5, Magnesium Level 2.5H, Total Bilirubin 0.3, Aspartate Amino Transf (AST/SGOT) 33, Alanine Aminotransferase (ALT/SGPT) 42, Alkaline Phosphatase 83, Total Protein 6.7, Albumin 3.8 Assessment/Plan/Dx Assessment: 1. Wound infection 2. Surgical dehiscence with chronic ulceration (initial surgery in 2020) 3. Radiation history 4. Tobaccoism 5. Hyperglycemia 6. h/o colon CA Plan: 1. Cleanse wound daily with Vashe. Apply silver alginate hydrofiber to wound bed and secure with bordered foam dressing. Change daily. Agree with wound culture and targeted antibiotics as indicated (broad spectrum currently) 2. Defer to surgery's capable hands as far as further workup 3. High risk for poor wound healing. 4. Cessation advised 5. Workup pending with A1C. Defer to primary team's capable hands 6. Defer to primary team Thank you for this consultation. Will plan for discharge home and back into the care of Dr. Gomez. KARLENE TABOR MD Apr 07, 2023 09:04
[2023-04-07] MEDS: SENNOSIDES 8.6 MG (SENOKOT) TAB PO SCH ×2 (09:10→21:37)
[2023-04-07] MEDS: DOCUSATE SODIUM 100 MG (COLACE) CAP PO SCH ×2 (09:10→21:37)
[2023-04-07] MEDS: NS IV 1000 ML 1,000 ML IV SCH (09:14)
[2023-04-07] MEDS ORDERED: MONT-40 PO (11:01)
[2023-04-07] MEDS ORDERED: MGX400T PO (11:01)
[2023-04-07] MEDS ORDERED: OXYC5TAB PO (11:01)
[2023-04-07] MEDS ORDERED: NF-MAG64T PO (11:01)
[2023-04-07] MEDS ORDERED: IBUP-30 PO (11:01)
[2023-04-07] MEDS ORDERED: FLUT1BLS15 INH (11:01)
[2023-04-07] MEDS ORDERED: MULT-1136 PO (11:01)
[2023-04-07] MEDS ORDERED: AMLO-250 PO (11:01)
[2023-04-07] MEDS ORDERED: ACET-2267 PO (11:01)
[2023-04-07] MEDS ORDERED: CHOL200059 PO (11:01)
[2023-04-07] MEDS ORDERED: SIMV40TA25 PO (11:01)
[2023-04-07] MEDS ORDERED: MTP25TSR PO (11:01)
[2023-04-07] MEDS ORDERED: TOPI25TA10 PO (11:01)
[2023-04-07] MEDS ORDERED: CETI10TA17 PO (11:03)
[2023-04-07] MEDS ORDERED: ACETAMINOPHEN 500 MG TAB (TYLENOL) PO PRN (11:30)
[2023-04-07] MEDS ORDERED: IBUPROFEN TABLET 200 MG TAB PO PRN (11:30)
[2023-04-07] MEDS ORDERED: toPIRamate 25 MG (TOPAMAX) TAB PO PRN (11:30)
[2023-04-07] MEDS ORDERED: MAGNESIUM CHLORIDE 71.5 MG PO SCH (13:00)
[2023-04-07] MEDS: MAGNESIUM OXIDE (MAG-OX)400 MG TAB PO SCH ×2 (13:27→20:54)
--- NOTE | 2023-04-07 14:50 | Physical Therapy Evaluation ---
PT Evaluation-General Medical Diagnosis Admission Date Apr 06, 2023 at 17:46 Medical Diagnosis: Abdominal wound Onset Date: Apr 06, 2023 Therapy Diagnosis Therapy Diagnosis: Gait deficit, strength deficit Precautions Precautions/Isolations: Standard Precautions Weight Bear Status Right Lower Extremity: Right Full Weight Bearing Left Lower Extremity: Left Full Weight Bearing Referral Physician: Dr. Chapman Reason for Referral: Evaluation/Treatment Medical History Pertinent Medical History: Arthritis, COPD, HTN, Smoking Reviewed History: Yes Social History Home: Single Level Current Living Status: Other Family Entry Into Home: Stairs With Railing PT Steps Into Home: 3 Prior Prior Level of Function SCALE: Activities may be completed with or without assistive devices. 3-Fgmgngkjad-eizgdlw completes the activity by him/herself with no assistance from a helper. 5-Set-up or Clean-up Assistance-helper sets up or cleans up; patient completes activity. [place] assists only prior to or following the activity. 4-Supervision or Touching Assistance-helper provides verbal cues and/or touching/steadying and/or contact guard assistance as patient completes activity. Assistance may be provided throughout the activity or intermittently. 3-Partial/Moderate Assistance-helper does LESS THAN HALF the effort. [place] lifts, holds or supports trunk or limbs, but provides less than half the effort. 2-Substantial/Maximal Assistance-helper does MORE THAN HALF the effort. [place] lifts or holds trunk or limbs and provides more than half the effort. 5-Ntklilbkp-cnxjjx does ALL the effort. Patient does none of the effort to complete the activity. Or, the assistance of 2 or more helpers is required for the patient to complete the activity. If activity was not attempted, code reason: 7-Patient Refused. 9-Not Applicable-not attempted and the patient did not perform the activity before the current illness, exacerbation or injury. 10-Not Attempted due to Environmental Limitations-(lack of equipment, weather restraints, etc.). 88-Not Attempted due to Medical Conditions or Safety Concerns. Bed Mobility: 6 Transfers (B,C,W/C): 6 Gait: 6 Stairs: 6 Indoor Mobility (Ambulation): Independent Stairs: Independent Prior Devices Use: Walker PT Evaluation-Current Subjective Patient lying supine in bed upon PT arrival, agreeable to treatment. Patient rates pain currently at 0/10. Objective Patient Orientation: Person, Place, Time, Situation Attachments: Oxygen, IV ROM/Strength ROM Lower Extremities WFLs BLEs all planes Strength Lower Extremities 3+/5 BLEs all planes Sensory Vision: Functional Hearing: Functional Sensation Right Lower Extremit: Intact Sensation Left Lower Extremity: Intact Transfers Roll Left to Right (QC): 3 Sit to Lying (QC): 4 Lying to Sitting/Side of Bed(Q: 4 Sit to Stand (QC): 4 Chair/Etf-ls-Ivycz Xfer(QC): 4 Toilet Transfer (QC): 4 Gait Does the Patient Walk?: Yes Mode of Locomotion: Walk Anticipated Mode of Locomotion: Walk Walk 10 feet (QC): 4 Walk 50 ft with 2 Turns(QC): 4 Walk 150 ft (QC): 4 Distance: 180' Gait Assistive Device: FWW Balance Sitting Static: Good Sitting Dynamic: Good Standing Static: Fair Standing Dynamic: Fair Assessment/Needs Patient tolerated treatment well. Requires min to CGA for all bed mobility and transfers. Patient ambulates 180' with FWW, with SBA and verbal cues for safety, progression, posture and control of FWW. Patient ambulates with NBOS and slow gait velocity. Patient in bed post treatment with all needs met, nursing notified, call light in hand. Rehab Potential: Fair PT Halfway Goals Audience Coordinator Goals PT Halfway Goals Time Frame: Apr 23, 2023 Roll Left & Right (QC): 6 Sit to Lying (QC): 6 Lying-Sitting on Side/Bed(QC): 6 Sit to Stand (QC): 6 Chair/Txl-ju-Ryckc Xfer(QC): 6 Toilet Transfer (QC): 6 Does the Patient Walk: Yes Walk 10 feet (QC): 6 Walk 50ft with 2 Turns (QC): 6 Walk 150 ft (QC): 6 1 Step (curb) (QC): 4 4 Steps (QC): 4 12 Steps (QC): 4 PT Plan Problem List Problem List: Activity Tolerance, Functional Strength, Safety, Balance, Gait, Transfer, Bed Mobility, ROM Treatment/Plan Treatment Plan: Continue Plan of Care Treatment Plan: Bed Mobility, Education, Functional Activity Palak, Functional Strength, Group Therapy, Gait, Safety, Therapeutic Exercise, Transfers Treatment Duration: Apr 23, 2023 Frequency: 6 times per week Estimated Hrs Per Day: .25 hour per day Safety Risks/Education Patient Education: Gait Training Teaching Recipient: Patient Teaching Methods: Demonstration, Discussion Response to Teaching: Verbalize Understanding, Return Demonstration Time Time In: 830 Time Out: 905 DATE: Apr 07, 2023 Total Billed Treatment Time: 35 Total Billed Treatment Visit, JUSITN DEXTER, LAWANDA CALL PT Apr 07, 2023 14:50
--- NOTE | 2023-04-07 16:02 | Occupational Therapy Eval ---
OT Evaluation-General/PLF Medical Diagnosis Admission Date Apr 06, 2023 at 17:46 Medical Diagnosis: Abdominal wound Onset Date: Apr 06, 2023 Therapy Diagnosis Therapy Diagnosis: weakness Precautions Precautions/Isolations: Fall Prevention, Standard Precautions Weight Bear Status Weight Bearing Restriction: Full Weight Bearing Referral Physician: Dr. Chapman Referral Reason: Self Care, Evaluation/Treatment Medical History Pertinent Medical History: Arthritis, COPD, HTN, Smoking Social History Home: Single Level Current Living Status: Other Family Entry Into Home: Stairs With Railing Steps Into Home: 3 Patient has own bathroom w/ walk in shower, requires assistance for health provider, changes clothing only at shower days, manages ostomy bags herself ADL-Prior Level of Function SCALE: Activities may be completed with or without assistive devices. 0-Vetfjykrxl-lehejun completes the activity by him/herself with no assistance from a helper. 5-Set-up or Clean-up Assistance-helper sets up or cleans up; patient completes activity. [place] assists only prior to or following the activity. 4-Supervision or Touching Assistance-helper provides verbal cues and/or touching/steadying and/or contact guard assistance as patient completes activ ity. Assistance may be provided throughout the activity or intermittently. 3-Partial/Moderate Assistance-helper does LESS THAN HALF the effort. [place] lifts, holds or supports trunk or limbs, but provides less than half the effort. 2-Substantial/Maximal Assistance-helper does MORE THAN HALF the effort. [place] lifts or holds trunk or limbs and provides more than half the effort. 3-Iwdtirjjn-bkkwos does ALL the effort. Patient does none of the effort to complete the activity. Or, the assistance of 2 or more helpers is required for the patient to complete the activity. If activity was not attempted, code reason: 7-Patient Refused. 9-Not Applicable-not attempted and the patient did not perform the activity before the current illness, exacerbation or injury. 10-Not Attempted due to Environmental Limitations-(lack of equipment, weather restraints, etc.). 88-Not Attempted due to Medical Conditions or Safety Concerns. Self Care: Needed Some Help Functional Cognition: Independent DME/Equipment: Bath Chair Drive Self: No OT Current Status Subjective transfer from 5 to 4 floor, patient request item be brought from frie, OT confirm w/ RM and ok to bring ENSURE Mental Status/Objective Patient Orientation: Person, Place, Time, Situation Attachments: Colostomy/Ileostomy, Oxygen Current Glasses/Contacts: Yes Upper Extremity ROM BUE ROM WFLs Upper Extremity Strength +3/5 grossly ADL-Treatment Eating (QC): 6 Oral Hygiene (QC): 5 Shower/Bathe Self (QC): 7 Upper Body Dressing (QC): 4 Lower Body Dressing (QC): 4 On/Off Footwear (QC): 4 Toileting Hygiene (QC): 4 Education OT Patient Education: Correct positioning, Energy conservation, Exercise program, Modified ADL techniques, Progress toward Goal/Update tx plan, Purpose of tx/functional activities, Reviewed precautions, Rehab process, Safety issues, Transfer techniques, Use of adapted equipment Teaching Recipient: Patient Teaching Methods: Demonstration, Discussion Response to Teaching: Reinforcement Needed OT Fire Prevention Specialist Goals Halfway Goals Eating (QC): 6 Oral Hygiene (QC): 6 Toileting Hygiene (QC): 6 Shower/Bathe Self (QC): 9 Upper Body Dressing (QC): 6 Lower Body Dressing (QC): 4 On/Off Footwear (QC): 4 1=Demonstrate adherence to instructed precautions during ADL tasks. 2=Patient will verbalize/demonstrate understanding of assistive devices/modifications for ADL. 3=Patient will improve strength/tolerance for activity to enable patient to perform ADL's. OT Education/Plan Problem List/Assessment Assessment: Decreased Activ Tolerance, Impaired Self-Care Skills Discharge Recommendations Plan/Recommendations: Continue POC Treatment Plan/Plan of Care Treatment,Training & Education: Yes Patient would benefit from OT for education, treatment and training to promote independence in ADL's, mobility, safety and/or upper extremity function for ADL's. Plan of Care: ADL Retraining, Concurrent Therapy, Functional Mobility, Group Exercise/Act as Ind, UE Funct Exercise/Act Treatment Duration: Apr 07, 2023 Frequency: 3 times per week Estimated Hrs Per Day: .25 hour per day Agreement: Yes Rehab Potential: Fair Time Start Time: 14:30 Stop Time: 14:45 DATE: Apr 07, 2023 Total Time Billed (hr/min): 15 Billed Treatment Time EVBALA DUBON OT Apr 07, 2023 16:02
--- NOTE | 2023-04-07 16:53 | CONSULTATION REPORT ---
DATE OF SERVICE: 04/07/2023 ATTENDING PRIMARY CARE PHYSICIAN: Dr. Genna Chapman. INDICATIONS: The patient is a 77-year-old female well known to us. She presented to the emergency department with hypotension and hyperkalemia as well as concerns for renal failure. On that admission, she was found to have a large mass of the transverse colon, underwent a colonoscopy and biopsy and this was consistent with an adenocarcinoma. On 10/31/2020, she underwent an attempted laparoscopic extended right hemicolectomy. However, due to her body habitus, this was difficult and was converted to an open procedure and underwent the extended right hemicolectomy as well as ileocolonic anastomosis. She then had a prolonged absence of bowel function and underwent reopening of the recent laparotomy on 11/10/2020 and resection of the ileocolonic anastomosis and placement of an end ileostomy and mucous fistula placement. The patient did develop an intraabdominal abscess as well as a wound dehiscence and underwent an intraabdominal drain placement as well as a wound VAC. She was placed on antibiotics for a significant amount of time and over time, the intraabdominal abscess had resolved. The abdominal wall wound also closed by secondary intention with the help of a wound VAC. The patient states that she has felt fatigued in the past several days due to antibiotics. Upon examination of the wound, there is a small area of redness and a superficial opening of the epithelium. There is no foreign body and there is no fluctuance to indicate any abscess. PAST MEDICAL HISTORY: COPD, hypertension, hypercholesterolemia, transverse colon, adenocarcinoma, right lung cancer. PAST SURGERIES: Tonsillectomy, cervical conization, open right extended hemicolectomy and ileocolonic anastomosis 10/2020, end ileostomy and mucous fistula 11/10/2020, [place] port placement 02/05/2021. ALLERGIES: PENICILLIN, VERSED, SYMBICORT. MEDICATIONS: Magnesium, simvastatin, Breo Ellipta, cetirizine, montelukast, oxycodone, metoprolol, Protonix, Trelegy Ellipta, alprazolam. SOCIAL HISTORY: Positive smoke 57 pack years. Rare alcohol. FAMILY HISTORY: Paternal grandmother, colon cancer. VITAL SIGNS: Stable, afebrile. REVIEW OF SYSTEMS: Well-nourished female, currently in no acute distress. She is not experiencing any shortness of breath or difficulty breathing. She does have a chronic cough. No chest pain, palpitations, diaphoresis. No nausea or vomiting and does have normal ileostomy output. She does report having some chills at home for the past few days. No fevers. No recent inadvertent weight loss. PHYSICAL EXAMINATION: CHEST: Scattered wheezes and rhonchi bilaterally. HEART: Regular. No murmurs. EXTREMITIES: No lower extremity edema. Negative Homans sign. HEENT: No scleral icterus. No cervical lymphadenopathy. ABDOMEN: Soft, nontender, nondistended. SKIN: Along the midline laparotomy incision, is an area of granulation tissue that is epithelialized from the previous wound VAC and at the inferior and right of midline portion is an open area of exposed granulation tissue. There is no surrounding redness or erythema to indicate any significant infection and that there is no fluctuance. RECOMMENDATIONS: This appears to be consistent with a superficial skin infection. It also appears she has a concominant UTI. We will recommend an absorbent dressing on a b.i.d. basis or more frequently to keep the wound clean and dry and allow the wound to epithelialize secondarily. We will also continue with antibiotics. We will see if she will also potentially need inpatient rehabilitation due to her significant weakness. Job ID: [id number] DocumentID: [id number] Dictated Date: 04/07/2023 16:28:54 Spacer Type Bar And Segment Date: 04/07/2023 16:52:00 Dictated By: MICHAEL XIONG MD [facility] NOBLE HOSPITALFredy
[2023-04-07] MEDS: VANCOMYCIN 1 GM/NS 250 ML IVPB IV SCH ×2 (17:37)
[2023-04-07] MEDS: ENOXAPARIN 40 MG/0.4 ML (LOVENOX) SYR SC SCH (17:37)
[2023-04-07] MEDS: LORATADINE (CLARITIN) 10 MG TAB PO SCH (20:54)
[2023-04-07] MEDS: MONTELUKAST 10 MG (SINGULAIR) TAB PO SCH (20:54)
[2023-04-07] MEDS: AtorvaSTATin TABLET 10 MG TABLET PO SCH (20:55)
[2023-04-07] MEDS ORDERED: NON-FORMULARY MEDICATION 1 EA EA (Simvastatin 40 MG) PO SCH (21:00)
[2023-04-07] MEDS ORDERED: NON-FORMULARY MEDICATION 1 EA EA (Cetirizine HCl 10 MG) PO SCH (21:00)
[2023-04-08 03:35] VITALS: BP 145/67
[2023-04-08] MEDS: CEFEPIME INJECTION 1,000 MG in NS (IVPB) 50 ML IV SCH ×3 (03:37→21:06)
[2023-04-08] MEDS: inSUlin ASPART (NovoLOG) 1 UNIT/0.01 ML (CHARGE PER UNIT) SC SCH ×4 (05:04→21:33)
[2023-04-08 05:34] LABS: BASOPHILS % (AUTO) 0 % (0-10); EOSINOPHILS # (AUTO) 0.2 10^3/uL (0.0-0.3); EOSINOPHILS % (AUTO) 3 % (0-10); HEMATOCRIT 33 % (35-52); HEMOGLOBIN 11.1 g/dL (11.5-16.0); LYMPHOCYTES # (AUTO) 1.2 10^3/uL (1.0-4.0); LYMPHOCYTES % (AUTO) 23 % (12-44); MEAN CORPUSCULAR HEMOGLOBIN 33 pg (25-34); MEAN CORPUSCULAR HGB CONC 34 g/dL (32-36); MEAN CORPUSCULAR VOLUME 95 fL (80-99); MEAN PLATELET VOLUME 9.3 fL (9.0-12.2); MONOCYTES # (AUTO) 0.7 10^3/uL (0.0-1.0); MONOCYTES % (AUTO) 13 % (0-12); NEUTROPHILS % (AUTO) 59 % (42-75); PLATELET COUNT 207 10^3/uL (130-400)
[2023-04-08 05:44] LABS: ALBUMIN 3.7 GM/DL (3.2-4.5); POTASSIUM 4.6 MMOL/L (3.6-5.0)
[2023-04-08 05:45] LABS: CALCIUM 9.3 MG/DL (8.5-10.1)
[2023-04-08 05:46] LABS: TOTAL PROTEIN 6.5 GM/DL (6.4-8.2)
[2023-04-08 05:48] LABS: BILIRUBIN,TOTAL 0.4 MG/DL (0.1-1.0)
[2023-04-08 05:50] LABS: CREATININE SERUM 0.9 MG/DL (0.60-1.30)
[2023-04-08 05:53] LABS: MAGNESIUM 1.7 MG/DL (1.6-2.4)
[2023-04-08] MEDS: RT-ALBUTEROL SULF 2.5 MG/3 ML PRE-MIX VIAL INH SCH ×4 (07:26→20:32)
--- NOTE | 2023-04-08 07:55 | Progress Note ---
Subjective Date Seen by a Provider: Apr 08, 2023 Time Seen by a Provider: 11:00 Subjective/Events-last exam Patient doing much better Tolerating antibiotics Check meds and labs Participating in therapy MRSA and wound Early pneumonia seems to be improved Updated her on the fact she is diabetic with hemoglobin A1c of 8.8 Review of Systems General: Fatigue, Malaise Pulmonary: Dyspnea, Cough Focused Exam Lactate Level 04/06/23 18:42: Lactic Acid Level 2.31*H Objective Exam Last Set of Vital Signs Vital Signs Date Time Temp Pulse Resp B/P (MAP) Pulse Ox O2 Delivery O2 Flow Rate FiO2 04/08/23 03:35 36.4 102 20 145/67 (93) 96 Nasal Cannula 1.50 04/06/23 20:54 96 Capillary Refill : I&O Intake and Output 04/08/23 00:00 Intake Total 2800 ml Balance 2800 ml Intake Oral 1900 ml IV Total 900 ml # Voids 7 # Bowel Movements 5 General: Alert, Oriented X3, Cooperative, No Acute Distress Lungs: Clear to Auscultation, Normal Air Movement Heart: Regular Rate, Normal S1, Normal S2, No Murmurs Psych/Mental Status: Mental Status NL, Mood NL Results Lab Laboratory Tests 04/07/23 10:35: Glucometer 211H 04/07/23 15:46: Glucometer 115H 04/07/23 20:26: Glucometer 171H 04/08/23 05:02: Glucometer 117H 04/08/23 05:17: White Blood Count 5.0, Red Blood Count 3.42L, Hemoglobin 11.1L, Hematocrit 33L, Mean Corpuscular Volume 95, Mean Corpuscular Hemoglobin 33, Mean Corpuscular Hemoglobin Concent 34, Red Cell Distribution Width 12.3, Platelet Count 207, Mean Platelet Volume 9.3, Immature Granulocyte % (Auto) 1, Neutrophils (%) (Auto) 59, Lymphocytes (%) (Auto) 23, Monocytes (%) (Auto) 13H, Eosinophils (%) (Auto) 3, Basophils (%) (Auto) 0, Neutrophils # (Auto) 3.0, Lymphocytes # (Auto) 1.2, Monocytes # (Auto) 0.7, Eosinophils # (Auto) 0.2, Basophils # (Auto) 0.0, Immature Granulocyte # (Auto) 0.0, Sodium Level 132L, Potassium Level 4.6, Chloride Level 104, Carbon Dioxide Level 21, Anion Gap 7, Blood Urea Nitrogen 12, Creatinine 0.90, Estimat Glomerular Filtration Rate 66, BUN/Creatinine Ratio 13, Glucose Level 119H, Calcium Level 9.3, Corrected Calcium 9.5, Magnesium Level 1.7, Total Bilirubin 0.4, Aspartate Amino Transf (AST/SGOT) 48H, Alanine Aminotransferase (ALT/SGPT) 50, Alkaline Phosphatase 78, Total Protein 6.5, Albumin 3.7 Microbiology 04/07/23 Gram Stain - Final, Resulted 04/07/23 Wound Culture, Resulted Pending 04/06/23 Blood Culture - Preliminary, Resulted No growth Assessment/Plan Assessment/Plan Assess & Plan/Chief Complaint Assessment: Severe fatigue with sepsis Early pneumonia Abdominal wound infection COPD with exacerbation Colon cancer status post resection with diverting ileostomy Lung cancer status post radiation Chronic hypomagnesemia Anxiety Severe presbycusis Plan: Supportive care IV antibiotics Dr. Lynch consult for wound care wound care physician PT and OT Continue IV antibiotics WILFREDO MARTÍNEZ DO Apr 08, 2023 07:55
[2023-04-08 07:57] VITALS: BP 156/67
[2023-04-08] MEDS: VITAMIN D3 25 MCG (1,000 UNITS) TABLET PO SCH (08:18)
[2023-04-08] MEDS: PANTOPRAZOLE 40 MG (PROTONIX) TAB PO SCH (08:18)
[2023-04-08] MEDS: MAGNESIUM OXIDE (MAG-OX)400 MG TAB PO SCH ×3 (08:18→21:06)
[2023-04-08] MEDS: amLODIPine 5 MG (NORVASC) TAB PO SCH (08:18)
[2023-04-08] MEDS: MULTIVIT W/MINERALS TAB (THERAGRAN M) PO SCH (08:18)
[2023-04-08] MEDS: UMECLIDINIUM BROMIDE (INCRUSE ELLIPTA) 7'S IH SCH (08:19)
[2023-04-08] MEDS: DOCUSATE SODIUM 100 MG (COLACE) CAP PO SCH ×2 (08:20→21:28)
[2023-04-08] MEDS: SENNOSIDES 8.6 MG (SENOKOT) TAB PO SCH ×2 (08:20→21:28)
[2023-04-08] MEDS: FLUTICASONE/VILANTEROL 200 MCG 14'S (BREO) IH SCH (08:20)
[2023-04-08] MEDS ORDERED: NON-FORMULARY MEDICATION 1 EA EA (Fluticasone/Umeclidin/Vilanter (Trelegy Ellipta 200-62.5 INH SCH (09:00)
[2023-04-08] MEDS: MAGNESIUM 1 GM/100 ML IVPB 100 ML IV SCH ×3 (10:58→14:16)
--- NOTE | 2023-04-08 11:10 | Physical Therapy Daily Note ---
PT Daily Note-Current Subjective Patient agrees to PT. Pain Section J - Health Conditions 1. Rarely or not at all 2. Occasionally 3. Frequently 4. Almost constantly 8. Unable to answer Pain Effect on Sleep: 1 Pain Interference with Therapy: 1 Pain Interference w/Day-to-Day: 1 Mental Status Patient Orientation: Normal For Age Attachments: Oxygen Transfers SCALE: Activities may be completed with or without assistive devices. 8-Rksjwgaygq-qvxyczp completes the activity by him/herself with no assistance from a helper. 5-Set-up or Clean-up Assistance-helper sets up or cleans up; patient completes activity. [place] assists only prior to or following the activity. 4-Supervision or Touching Assistance-helper provides verbal cues and/or touching/steadying and/or contact guard assistance as patient completes activity. Assistance may be provided throughout the activity or intermittently. 3-Partial/Moderate Assistance-helper does LESS THAN HALF the effort. [place] lifts, holds or supports trunk or limbs, but provides less than half the effort. 2-Substantial/Maximal Assistance-helper does MORE THAN HALF the effort. [place] lifts or holds trunk or limbs and provides more than half the effort. 7-Ljecmcuat-ztrgiw does ALL the effort. Patient does none of the effort to complete the activity. Or, the assistance of 2 or more helpers is required for the patient to complete the activity. If activity was not attempted, code reason: 7-Patient Refused. 9-Not Applicable-not attempted and the patient did not perform the activity before the current illness, exacerbation or injury. 10-Not Attempted due to Environmental Limitations-(lack of equipment, weather restraints, etc.). 88-Not Attempted due to Medical Conditions or Safety Concerns. Lying to Sitting/Side of Bed(Q: 6 Sit to Stand (QC): 5 Chair/Efy-li-Ygghl Xfer(QC): 5 Toilet Transfer (QC): 5 Weight Bearing Right Lower Extremity: Right Full Weight Bearing Left Lower Extremity: Left Full Weight Bearing Gait Training Distance: >450' Walk 10 feet (QC): 5 Walk 50 ft with 2 Turns(QC): 5 Walk 150 ft (QC): 5 Gait Assistive Device: FWW safe and functional with no deviation Assessment Patient toileted independently. Patient tolerated treatment well and is up in recliner with needs met. PT to increase activity as tolerated by patient. PT Director Writing Goals Director Writing Goals PT Director Writing Goals Time Frame: Apr 23, 2023 Roll Left & Right (QC): 6 Sit to Lying (QC): 6 Lying-Sitting on Side/Bed(QC): 6 Sit to Stand (QC): 6 Chair/Hyt-fa-Bhjkd Xfer(QC): 6 Toilet Transfer (QC): 6 Does the Patient Walk: Yes Walk 10 feet (QC): 6 Walk 50ft with 2 Turns (QC): 6 Walk 150 ft (QC): 6 1 Step (curb) (QC): 4 4 Steps (QC): 4 12 Steps (QC): 4 PT Plan Treatment/Plan Treatment Plan: Continue Plan of Care Treatment Plan: Bed Mobility, Education, Functional Activity [place]ak, Functional Strength, Group Therapy, Gait, Safety, Therapeutic Exercise, Transfers Treatment Duration: Apr 23, 2023 Frequency: 6 times per week Estimated Hrs Per Day: .25 hour per day Time Time In: 920 Time Out: 935 DATE: Apr 08, 2023 Total Billed Treatment Time: 15 Total Billed Treatment 1 visit FA 15 min ROBERT SCHWAB PT Apr 08, 2023 11:10
--- NOTE | 2023-04-08 11:53 | Occupational Ther Daily Note ---
OT Current Status-Daily Note Subjective Resting in bed, c/o of no time to rest, agrees to OT Mental Status/Objective Patient Orientation: Person, Place, Situation Attachments: Oxygen 02 tube thread through snaps of gown, tension to nose. Patient does not investigate 02 tubing to establish cause of tension on nose, Pat[place]n does not safely address fall risks of 02 tubing ADL-Treatment Therapy Code Descriptions/Definitions Functional [place] Measure: 0=Not Assessed/NA 4=Minimal Assistance 1=Total Assistance 5=Supervision or Setup 2=Maximal Assistance 6=Modified [place] 3=Moderate Assistance 7=Complete IndependenceSCALE: Activities may be completed with or without assistive devices. 9-Hllqoyjkow-wmphujd completes the activity by him/herself with no assistance from a helper. 5-Set-up or Clean-up Assistance-helper sets up or cleans up; patient completes activity. [place] assists only prior to or following the activity. 4-Supervision or Touching Assistance-helper provides verbal cues and/or touching/steadying and/or contact guard assistance as patient completes activity. Assistance may be provided throughout the activity or intermittently. 3-Partial/Moderate Assistance-helper does LESS THAN HALF the effort. [place] lifts, holds or supports trunk or limbs, but provides less than half the effort. 2-Substantial/Maximal Assistance-helper does MORE THAN HALF the effort. [place] lifts or holds trunk or limbs and provides more than half the effort. 6-Oryaxefmn-clloma does ALL the effort. Patient does none of the effort to complete the activity. Or, the assistance of 2 or more helpers is required for the patient to complete the activity. If activity was not attempted, code reason: 7-Patient Refused. 9-Not Applicable-not attempted and the patient did not perform the activity before the current illness, exacerbation or injury. 10-Not Attempted due to Environmental Limitations-(lack of equipment, weather restraints, etc.). 88-Not Attempted due to Medical Conditions or Safety Concerns. Eating (QC): 6 Oral Hygiene (QC): 5 Shower/Bathe Self (QC): 7 Upper Body Dressing (QC): 5 Lower Body Dressing (QC): 5 On/Off Footwear: 5 Toileting Hygiene (QC): 5 (empty own ostomy bag, requires safety cues for turnig w/ FWW and 02) Toilet Transfer (QC): 5 Education OT Patient Education: Correct positioning, Energy conservation, Modified ADL techniques, Progress toward Goal/Update tx plan, Purpose of tx/functional activities, Reviewed precautions, Safety issues, Transfer techniques, Use of adapted equipment Teaching Recipient: Patient Teaching Methods: Demonstration Response to Teaching: Verbalize Understanding OT Coagulating Drying Supervisor Goals Retirement Goals Eating (QC): 6 Oral Hygiene (QC): 6 Toileting Hygiene (QC): 6 Shower/Bathe Self (QC): 9 Upper Body Dressing (QC): 6 Lower Body Dressing (QC): 4 On/Off Footwear (QC): 4 1=Demonstrate adherence to instructed precautions during ADL tasks. 2=Patient will verbalize/demonstrate understanding of assistive devices/modifications for ADL. 3=Patient will improve strength/tolerance for activity to enable patient to perform ADL's. OT Education/Plan Problem List/Assessment Assessment: Impaired Self-Care Skills Discharge Recommendations Plan/Recommendations: Continue POC Treatment Plan/Plan of Care Patient would benefit from OT for education, treatment and training to promote independence in ADL's, mobility, safety and/or upper extremity function for ADL's. Plan of Care: ADL Retraining, Concurrent Therapy, Functional Mobility, Group Exercise/Act as Ind, UE Funct Exercise/Act Treatment Duration: Apr 07, 2023 Frequency: 3 times per week Estimated Hrs Per Day: .25 hour per day Agreement: Yes Rehab Potential: Fair all needs met Time Start Time: 09:20 Stop Time: 09:35 DATE: Apr 08, 2023 Total Time Billed (hr/min): 15 Billed Treatment Time ADL 15 min BALA MCMILLAN OT Apr 08, 2023 11:53
[2023-04-08 12:02] VITALS: BP 155/69
[2023-04-08 15:25] VITALS: BP 138/63
--- NOTE | 2023-04-08 16:06 | Progress Note ---
Subjective Date Seen by a Provider: Apr 08, 2023 Time Seen by a Provider: 16:00 Subjective/Events-last exam Patient seen with Dr. Lynch. Patient reports doing well. Denies any abdominal pain. Tolerating diet. No fever/chills. Focused Exam Lactate Level 04/06/23 18:42: Lactic Acid Level 2.31*H Objective Exam Vital Signs Date Time Temp Pulse Resp B/P (MAP) Pulse Ox O2 Delivery O2 Flow Rate FiO2 04/08/23 15:25 35.9 103 18 138/63 (88) 93 Nasal Cannula 1.50 04/08/23 14:11 93 Nasal Cannula 2.00 04/08/23 12:02 36.5 99 20 155/69 (97) 94 Nasal Cannula 2.00 04/08/23 10:48 94 Nasal Cannula 2.00 04/08/23 08:00 Nasal Cannula 2.00 04/08/23 07:57 36.7 102 20 156/67 (96) 96 Nasal Cannula 2.00 04/08/23 03:35 36.4 102 20 145/67 (93) 96 Nasal Cannula 1.50 04/07/23 23:33 36.5 97 18 127/58 (81) 95 Nasal Cannula 1.50 04/07/23 21:00 96 Nasal Cannula 2.00 04/07/23 20:07 94 Nasal Cannula 2.00 04/07/23 19:59 36.2 99 18 135/70 (91) 96 Nasal Cannula 1.50 04/07/23 16:15 36.4 96 20 135/65 (88) 95 Nasal Cannula 1.50 I & O 04/08/23 07:00 Intake Total 2950 ml Balance 2950 ml Capillary Refill : General Appearance: No Apparent Distress, WD/WN Neck: Normal Inspection, Supple Respiratory: Lungs Clear, No Respiratory Distress, Decreased Breath Sounds Gastrointestinal: normal bowel sounds, non tender, soft Extremity: Normal Inspection, Normal Range of Motion Neurologic/Psychiatric: Alert, Oriented x3, Other (Mid abdominal wound mild erythema with mild purulent drainage) Results Lab Laboratory Tests 04/07/23 20:26: Glucometer 171H 04/08/23 05:02: Glucometer 117H 04/08/23 05:17: White Blood Count 5.0, Red Blood Count 3.42L, Hemoglobin 11.1L, Hematocrit 33L, Mean Corpuscular Volume 95, Mean Corpuscular Hemoglobin 33, Mean Corpuscular Hemoglobin Concent 34, Red Cell Distribution Width 12.3, Platelet Count 207, Mean Platelet Volume 9.3, Immature Granulocyte % (Auto) 1, Neutrophils (%) (Auto) 59, Lymphocytes (%) (Auto) 23, Monocytes (%) (Auto) 13H, Eosinophils (%) (Auto) 3, Basophils (%) (Auto) 0, Neutrophils # (Auto) 3.0, Lymphocytes # (Auto) 1.2, Monocytes # (Auto) 0.7, Eosinophils # (Auto) 0.2, Basophils # (Auto) 0.0, Immature Granulocyte # (Auto) 0.0, Sodium Level 132L, Potassium Level 4.6, Chloride Level 104, Carbon Dioxide Level 21, Anion Gap 7, Blood Urea Nitrogen 12, Creatinine 0.90, Estimat Glomerular Filtration Rate 66, BUN/Creatinine Ratio 13, Glucose Level 119H, Calcium Level 9.3, Corrected Calcium 9.5, Magnesium Level 1.7, Total Bilirubin 0.4, Aspartate Amino Transf (AST/SGOT) 48H, Alanine Aminotransferase (ALT/SGPT) 50, Alkaline Phosphatase 78, Total Protein 6.5, Albumin 3.7 04/08/23 10:09: Glucometer 230H 04/08/23 15:30: Glucometer 325H Microbiology 04/07/23 Gram Stain - Final, Resulted 04/07/23 Wound Culture - Preliminary, Resulted Staphylococcus aureus Mixed Bacterial Kalpana 04/06/23 Blood Culture - Preliminary, Resulted No growth Assessment/Plan Assessment/Plan Assess & Plan/Chief Complaint A 77 year old female a superficial skin infection, she has a concominant UTI. 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
[2023-04-08] MEDS ORDERED: TROUGH ORDER-PHARMACY XX NR (17:00)
[2023-04-08] MEDS: VANCOMYCIN 1 GM/NS 250 ML IVPB IV SCH ×2 (17:58)
[2023-04-08] MEDS: ENOXAPARIN 40 MG/0.4 ML (LOVENOX) SYR SC SCH (17:59)
[2023-04-08] MEDS ORDERED: VANCOMYCIN 750 MG/NS 250 ML IVPB IV NR ×2 (19:00)
[2023-04-08 19:37] VITALS: BP 137/59
[2023-04-08] MEDS: LORATADINE (CLARITIN) 10 MG TAB PO SCH (21:05)
[2023-04-08] MEDS: AtorvaSTATin TABLET 10 MG TABLET PO SCH (21:05)
[2023-04-08] MEDS: MONTELUKAST 10 MG (SINGULAIR) TAB PO SCH (21:06)
[2023-04-08 23:25] VITALS: BP 135/77
[2023-04-09 03:31] VITALS: BP 142/76
[2023-04-09] MEDS: CEFEPIME INJECTION 1,000 MG in NS (IVPB) 50 ML IV SCH ×2 (03:31→12:09)
[2023-04-09 05:23] LABS: BASOPHILS % (AUTO) 0 % (0-10); EOSINOPHILS % (AUTO) 0 % (0-10); HEMATOCRIT 31 % (35-52); HEMOGLOBIN 10.9 g/dL (11.5-16.0); LYMPHOCYTES # (AUTO) 0.7 10^3/uL (1.0-4.0); LYMPHOCYTES % (AUTO) 11 % (12-44); MEAN CORPUSCULAR HEMOGLOBIN 33 pg (25-34); MEAN CORPUSCULAR HGB CONC 35 g/dL (32-36); MEAN CORPUSCULAR VOLUME 94 fL (80-99); MEAN PLATELET VOLUME 9.3 fL (9.0-12.2); MONOCYTES # (AUTO) 0.6 10^3/uL (0.0-1.0); MONOCYTES % (AUTO) 9 % (0-12); NEUTROPHILS % (AUTO) 78 % (42-75); PLATELET COUNT 213 10^3/uL (130-400); WHITE BLOOD COUNT 6.5 10^3/uL (4.3-11.0)
[2023-04-09] MEDS: inSUlin ASPART (NovoLOG) 1 UNIT/0.01 ML (CHARGE PER UNIT) SC SCH ×2 (05:33→12:09)
[2023-04-09 05:36] LABS: ALBUMIN 3.8 GM/DL (3.2-4.5)
[2023-04-09 05:37] LABS: POTASSIUM 4.6 MMOL/L (3.6-5.0)
[2023-04-09 05:38] LABS: CALCIUM 9.2 MG/DL (8.5-10.1)
[2023-04-09 05:39] LABS: TOTAL PROTEIN 6.6 GM/DL (6.4-8.2)
[2023-04-09 05:41] LABS: BILIRUBIN,TOTAL 0.3 MG/DL (0.1-1.0)
[2023-04-09 05:42] LABS: CREATININE SERUM 0.95 MG/DL (0.60-1.30)
[2023-04-09 05:45] LABS: MAGNESIUM 1.9 MG/DL (1.6-2.4)
[2023-04-09] MEDS: RT-ALBUTEROL SULF 2.5 MG/3 ML PRE-MIX VIAL INH SCH ×3 (07:20→15:12)
[2023-04-09] MEDS: UMECLIDINIUM BROMIDE (INCRUSE ELLIPTA) 7'S IH SCH (07:27)
[2023-04-09] MEDS: FLUTICASONE/VILANTEROL 200 MCG 14'S (BREO) IH SCH (07:27)
[2023-04-09 07:49] VITALS: BP 146/76
[2023-04-09] MEDS: PANTOPRAZOLE 40 MG (PROTONIX) TAB PO SCH (08:46)
[2023-04-09] MEDS: MAGNESIUM OXIDE (MAG-OX)400 MG TAB PO SCH ×2 (08:47→12:09)
[2023-04-09] MEDS: MULTIVIT W/MINERALS TAB (THERAGRAN M) PO SCH (08:47)
[2023-04-09] MEDS: VITAMIN D3 25 MCG (1,000 UNITS) TABLET PO SCH (08:47)
[2023-04-09] MEDS: amLODIPine 5 MG (NORVASC) TAB PO SCH (08:47)
[2023-04-09] MEDS ORDERED: NICOTINE 21 MG (NICODERM) PATCH TD SCH (09:00)
[2023-04-09] MEDS: SENNOSIDES 8.6 MG (SENOKOT) TAB PO SCH (09:03)
[2023-04-09] MEDS: DOCUSATE SODIUM 100 MG (COLACE) CAP PO SCH (09:03)
[2023-04-09] MEDS ORDERED: ALPRAZolam 0.25 MG (XANAX) TAB PO PRN (10:45)
--- NOTE | 2023-04-09 10:52 | Physical Therapy Daily Note ---
PT Daily Note-Current Subjective Patient up independently in room. Pain Section J - Health Conditions 1. Rarely or not at all 2. Occasionally 3. Frequently 4. Almost constantly 8. Unable to answer Pain Effect on Sleep: 1 Pain Interference with Therapy: 1 Pain Interference w/Day-to-Day: 1 Mental Status Patient Orientation: Normal For Age Attachments: Oxygen Transfers SCALE: Activities may be completed with or without assistive devices. 9-Tmqgescxsz-gyznhcj completes the activity by him/herself with no assistance from a helper. 5-Set-up or Clean-up Assistance-helper sets up or cleans up; patient completes activity. [place] assists only prior to or following the activity. 4-Supervision or Touching Assistance-helper provides verbal cues and/or touching/steadying and/or contact guard assistance as patient completes activity. Assistance may be provided throughout the activity or intermittently. 3-Partial/Moderate Assistance-helper does LESS THAN HALF the effort. Golden lifts, holds or supports trunk or limbs, but provides less than half the effort. 2-Substantial/Maximal Assistance-helper does MORE THAN HALF the effort. Golden lifts or holds trunk or limbs and provides more than half the effort. 1-Epdwpnhpr-ducepn does ALL the effort. Patient does none of the effort to complete the activity. Or, the assistance of 2 or more helpers is required for the patient to complete the activity. If activity was not attempted, code reason: 7-Patient Refused. 9-Not Applicable-not attempted and the patient did not perform the activity before the current illness, exacerbation or injury. 10-Not Attempted due to Environmental Limitations-(lack of equipment, weather restraints, etc.). 88-Not Attempted due to Medical Conditions or Safety Concerns. Lying to Sitting/Side of Bed(Q: 6 Sit to Stand (QC): 6 Chair/Rgw-ey-Uhurb Xfer(QC): 6 Toilet Transfer (QC): 6 Weight Bearing Right Lower Extremity: Right Full Weight Bearing Left Lower Extremity: Left Full Weight Bearing Gait Training Distance: >400' Walk 10 feet (QC): 6 Walk 50 ft with 2 Turns(QC): 6 Walk 150 ft (QC): 6 Gait Assistive Device: FWW FWW for energy conservation/safe and functional gait sequence Assessment Patient is currently at independent [facility] with all gross motor skills safely. PT to dismiss patient from services at this time. PT Calibration Checker Goals Calibration Checker Goals PT [facility] Goals Time Frame: Apr 23, 2023 Roll Left & Right (QC): 6 Sit to Lying (QC): 6 Lying-Sitting on Side/Bed(QC): 6 Sit to Stand (QC): 6 Chair/Ppd-zu-Dganb Xfer(QC): 6 Toilet Transfer (QC): 6 Does the Patient Walk: Yes Walk 10 feet (QC): 6 Walk 50ft with 2 Turns (QC): 6 Walk 150 ft (QC): 6 1 Step (curb) (QC): 4 4 Steps (QC): 4 12 Steps (QC): 4 PT Plan Treatment/Plan Treatment Plan: Discontinue PT Treatment Plan: Bed Mobility, Education, Functional Activity Palak, Functional Strength, Group Therapy, Gait, Safety, Therapeutic Exercise, Transfers Treatment Duration: Apr 23, 2023 Frequency: 6 times per week Estimated Hrs Per Day: .25 hour per day Time Time In: 1015 Time Out: 1025 DATE: Apr 09, 2023 Total Billed Treatment Time: 10 Total Billed Treatment 1 visit FA 10 min ROBERT SCHWAB PT Apr 09, 2023 10:52
[2023-04-09 11:08] VITALS: BP 168/76
[2023-04-09] MEDS ORDERED: CEFE1FRO IV (11:18)
[2023-04-09] MEDS ORDERED: INSU100V5 SQ (11:18)
[2023-04-09] MEDS ORDERED: ENOX40DI8 SC (11:18)
[2023-04-09] MEDS ORDERED: NICO1PAT34 TD (11:18)
[2023-04-09] MEDS ORDERED: INSU100V16 SC (11:18)
[2023-04-09] MEDS ORDERED: ALBU2.5V4 INH (11:18)
[2023-04-09] MEDS ORDERED: ALPR.25T PO (11:18)
[2023-04-09] MEDS ORDERED: [UNRECOGNIZED DRUG - CODE] IV (11:18)
[2023-04-09] MEDS ORDERED: MAGN2PIG IV (11:19)
--- NOTE | 2023-04-09 11:20 | Discharge Summary ---
Diagnosis/Chief Complaint Date of Admission Apr 06, 2023 at 17:46 Date of Discharge Discharge Date: Apr 09, 2023 Discharge Diagnosis Assessment: Severe fatigue with sepsis Early pneumonia Abdominal wound infection COPD with exacerbation Colon cancer status post resection with diverting ileostomy Lung cancer status post radiation Chronic hypomagnesemia Anxiety Severe presbycusis Plan: Supportive care IV antibiotics Dr. Lynch consult for wound care wound care physician PT and OT Continue IV antibiotics Discharge Summary Discharge Physical Examination Allergies: Coded Allergies: Penicillins (Verified Allergy, Unknown, Anaphylaxis, 09/26/20) budesonide (Verified Allergy, Unknown, Nausea, PT USES TRELEGY, 12/20/20) formoterol (Verified Allergy, Unknown, Nausea, 09/26/20) midazolam (Verified Allergy, Unknown, Anaphylaxis, pt has rec Lorazepam & alprazolam in the past, 02/04/21) Has received Lorazepam & alprazolam without issue Vitals & I&Os Vital Signs Date Time Temp Pulse Resp B/P (MAP) Pulse Ox O2 Delivery O2 Flow Rate FiO2 04/09/23 15:48 36.8 100 18 168/76 93 Nasal Cannula 1.50 04/06/23 20:54 96 General Appearance: Alert, Oriented X3, Cooperative Respiratory: Clear to Auscultation Cardiovascular: Regular Rate Psych/Mental Status: Mental Status NL Hospital Course Was the Problem List Reviewed?: Yes Hospital course: Patient had an uneventful hospital course after she was admitted to cardiac stepdown due to acute on chronic respiratory failure. IV fluids initiated after antibiotics initiated. Overall patient did well and responded to aggressive pulmonary management. MRSA of the wound was noted so vancomycin was maintained along with cefepime for early pneumonia. She was deemed stable for transfer to [facility] swing bed to complete her IV antibiotics and continue her treatment plan with therapy. Labs (last 24 hrs) Laboratory Tests 04/06/23 18:42: White Blood Count 7.7, Red Blood Count 3.52L, Hemoglobin 11.5, Hematocrit 33L, Mean Corpuscular Volume 93, Mean Corpuscular Hemoglobin 33, Mean Corpuscular Hemoglobin Concent 35, Red Cell Distribution Width 11.9, Platelet Count 215, Mean Platelet Volume 9.5, Immature Granulocyte % (Auto) 1, Neutrophils (%) (Auto) 69, Lymphocytes (%) (Auto) 19, Monocytes (%) (Auto) 10, Eosinophils (%) (Auto) 2, Basophils (%) (Auto) 0, Neutrophils # (Auto) 5.2, Lymphocytes # (Auto) 1.5, Monocytes # (Auto) 0.8, Eosinophils # (Auto) 0.1, Basophils # (Auto) 0.0, Immature Granulocyte # (Auto) 0.0, Prothrombin Time 14.1, INR Comment 1.1, Activated Partial Thromboplast Time 31, Sodium Level 128L, Potassium Level 4.6, Chloride Level 98, Carbon Dioxide Level 18L, Anion Gap 12, Blood Urea Nitrogen 17, Creatinine 1.05, Estimat Glomerular Filtration Rate 55, BUN/Creatinine Ratio 16, Glucose Level 302H, Lactic Acid Level 2.31*H, Calcium Level 9.6, Corrected Calcium 9.7, Magnesium Level 1.3L, Iron Level 78, Total Bilirubin 0.3, Aspartate Amino Transf (AST/SGOT) 32, Alanine Aminotransferase (ALT/SGPT) 45, Alkaline Phosphatase 84, Total Protein 6.9, Albumin 3.9, Vitamin B12 Level 477 04/06/23 19:29: Mean Blood Glucose 206H, Hemoglobin A1c 8.8H, Thyroid Stimulating Hormone (TSH) 0.29L 04/06/23 19:51: Glucometer 252H 04/07/23 04:00: White Blood Count 6.2, Red Blood Count 3.56L, Hemoglobin 11.6, Hematocrit 33L, Mean Corpuscular Volume 93, Mean Corpuscular Hemoglobin 33, Mean Corpuscular Hemoglobin Concent 35, Red Cell Distribution Width 11.9, Platelet Count 214, Mean Platelet Volume 10.0, Immature Granulocyte % (Auto) 1, Neutrophils (%) (Auto) 62, Lymphocytes (%) (Auto) 23, Monocytes (%) (Auto) 12, Eosinophils (%) (Auto) 3, Basophils (%) (Auto) 0, Neutrophils # (Auto) 3.8, Lymphocytes # (Auto) 1.4, Monocytes # (Auto) 0.7, Eosinophils # (Auto) 0.2, Basophils # (Auto) 0.0, Immature Granulocyte # (Auto) 0.0, Sodium Level 132L, Potassium Level 4.3, Chloride Level 104, Carbon Dioxide Level 20L, Anion Gap 8, Blood Urea Nitrogen 15, Creatinine 0.98, Estimat Glomerular Filtration Rate 59, BUN/Creatinine Ratio 15, Glucose Level 117H, Calcium Level 9.3, Corrected Calcium 9.5, Magnesium Level 2.5H, Total Bilirubin 0.3, Aspartate Amino Transf (AST/SGOT) 33, Alanine Aminotransferase (ALT/SGPT) 42, Alkaline Phosphatase 83, Total Protein 6.7, Albumin 3.8 04/07/23 10:35: Glucometer 211H 04/07/23 15:46: Glucometer 115H 04/07/23 20:26: Glucometer 171H 04/08/23 05:02: Glucometer 117H 04/08/23 05:17: White Blood Count 5.0, Red Blood Count 3.42L, Hemoglobin 11.1L, Hematocrit 33L, Mean Corpuscular Volume 95, Mean Corpuscular Hemoglobin 33, Mean Corpuscular Hemoglobin Concent 34, Red Cell Distribution Width 12.3, Platelet Count 207, Mean Platelet Volume 9.3, Immature Granulocyte % (Auto) 1, Neutrophils (%) (Auto) 59, Lymphocytes (%) (Auto) 23, Monocytes (%) (Auto) 13H, Eosinophils (%) (Auto) 3, Basophils (%) (Auto) 0, Neutrophils # (Auto) 3.0, Lymphocytes # (Auto) 1.2, Monocytes # (Auto) 0.7, Eosinophils # (Auto) 0.2, Basophils # (Auto) 0.0, Immature Granulocyte # (Auto) 0.0, Sodium Level 132L, Potassium Level 4.6, Chloride Level 104, Carbon Dioxide Level 21, Anion Gap 7, Blood Urea Nitrogen 12, Creatinine 0.90, Estimat Glomerular Filtration Rate 66, BUN/Creatinine Ratio 13, Glucose Level 119H, Calcium Level 9.3, Corrected Calcium 9.5, Magnesium Level 1.7, Total Bilirubin 0.4, Aspartate Amino Transf (AST/SGOT) 48H, Alanine Aminotransferase (ALT/SGPT) 50, Alkaline Phosphatase 78, Total Protein 6.5, Albumin 3.7 04/08/23 10:09: Glucometer 230H 04/08/23 15:30: Glucometer 325H 04/08/23 17:03: Vancomycin Level Trough 7.1L 04/08/23 21:26: Glucometer 277H 04/09/23 05:04: Glucometer 275H 04/09/23 05:06: White Blood Count 6.5, Red Blood Count 3.32L, Hemoglobin 10.9L, Hematocrit 31L, Mean Corpuscular Volume 94, Mean Corpuscular Hemoglobin 33, Mean Corpuscular Hemoglobin Concent 35, Red Cell Distribution Width 12.1, Platelet Count 213, Mean Platelet Volume 9.3, Immature Granulocyte % (Auto) 1, Neutrophils (%) (Auto) 78H, Lymphocytes (%) (Auto) 11L, Monocytes (%) (Auto) 9, Eosinophils (%) (Auto) 0, Basophils (%) (Auto) 0, Neutrophils # (Auto) 5.0, Lymphocytes # (Auto) 0.7L, Monocytes # (Auto) 0.6, Eosinophils # (Auto) 0.0, Basophils # (Auto) 0.0, Immature Granulocyte # (Auto) 0.1, Sodium Level 131L, Potassium Level 4.6, Chloride Level 102, Carbon Dioxide Level 19L, Anion Gap 10, Blood Urea Nitrogen 14, Creatinine 0.95, Estimat Glomerular Filtration Rate 62, BUN/Creatinine Ratio 15, Glucose Level 287H, Calcium Level 9.2, Corrected Calcium 9.4, Magnesium Level 1.9, Total Bilirubin 0.3, Aspartate Amino Transf (AST/SGOT) 39H, Alanine Aminotransferase (ALT/SGPT) 52, Alkaline Phosphatase 79, Total Protein 6.6, Albumin 3.8 04/09/23 11:05: Glucometer 361H Microbiology 04/07/23 Gram Stain - Final, Complete 04/07/23 Wound Culture - Final, Complete Staphylococcus aureus Mixed Bacterial Kalpana 04/06/23 Blood Culture - Preliminary, Resulted No growth Pending Labs Microbiology Date/Time Source Procedure Growth Status 04/07/23 10:00 Incision Abdomen Gram Stain - Final Complete 04/07/23 10:00 Wound Culture - Final Staphylococcus aureus Mixed Bacterial Kalpana Complete 04/06/23 18:42 Peripheral Lt Ac Blood Culture - Preliminary No growth Resulted 04/06/23 18:32 Peripheral Rt Ac Blood Culture - Preliminary No growth Resulted Laboratory Tests 04/06/23 18:42: White Blood Count 7.7, Red Blood Count 3.52, Hemoglobin 11.5, Hematocrit 33, Mean Corpuscular Volume 93, Mean Corpuscular Hemoglobin 33, Mean Corpuscular Hemoglobin Concent 35, Red Cell Distribution Width 11.9, Platelet Count 215, Mean Platelet Volume 9.5, Immature Granulocyte % (Auto) 1, Neutrophils (%) (Auto) 69, Lymphocytes (%) (Auto) 19, Monocytes (%) (Auto) 10, Eosinophils (%) (Auto) 2, Basophils (%) (Auto) 0, Neutrophils # (Auto) 5.2, Lymphocytes # (Auto) 1.5, Monocytes # (Auto) 0.8, Eosinophils # (Auto) 0.1, Basophils # (Auto) 0.0, Immature Granulocyte # (Auto) 0.0, Prothrombin Time 14.1, INR Comment 1.1, Activated Partial Thromboplast Time 31, Sodium Level 128, Potassium Level 4.6, Chloride Level 98, Carbon Dioxide Level 18, Anion Gap 12, Blood Urea Nitrogen 17, Creatinine 1.05, Estimat Glomerular Filtration Rate 55, BUN/Creatinine Ratio 16, Glucose Level 302, Lactic Acid Level 2.31, Calcium Level 9.6, Corrected Calcium 9.7, Magnesium Level 1.3, Iron Level 78, Total Bilirubin 0.3, Aspartate Amino Transf (AST/SGOT) 32, Alanine Aminotransferase (ALT/SGPT) 45, Alkaline Phosphatase 84, Total Protein 6.9, Albumin 3.9, Vitamin B12 Level 477 04/06/23 19:29: Mean Blood Glucose 206, Hemoglobin A1c 8.8, Thyroid Stimulating Hormone (TSH) 0.29 04/06/23 19:51: Glucometer 252 04/07/23 04:00: White Blood Count 6.2, Red Blood Count 3.56, Hemoglobin 11.6, Hematocrit 33, Mean Corpuscular Volume 93, Mean Corpuscular Hemoglobin 33, Mean Corpuscular Hemoglobin Concent 35, Red Cell Distribution Width 11.9, Platelet Count 214, Mean Platelet Volume 10.0, Immature Granulocyte % (Auto) 1, Neutrophils (%) (Auto) 62, Lymphocytes (%) (Auto) 23, Monocytes (%) (Auto) 12, Eosinophils (%) (Auto) 3, Basophils (%) (Auto) 0, Neutrophils # (Auto) 3.8, Lymphocytes # (Auto) 1.4, Monocytes # (Auto) 0.7, Eosinophils # (Auto) 0.2, Basophils # (Auto) 0.0, Immature Granulocyte # (Auto) 0.0, Sodium Level 132, Potassium Level 4.3, Chloride Level 104, Carbon Dioxide Level 20, Anion Gap 8, Blood Urea Nitrogen 15, Creatinine 0.98, Estimat Glomerular Filtration Rate 59, BUN/Creatinine Ratio 15, Glucose Level 117, Calcium Level 9.3, Corrected Calcium 9.5, Magnesium Level 2.5, Total Bilirubin 0.3, Aspartate Amino Transf (AST/SGOT) 33, Alanine Aminotransferase (ALT/SGPT) 42, Alkaline Phosphatase 83, Total Protein 6.7, [place] min 3.8 04/07/23 10:35: Glucometer 211 04/07/23 15:46: Glucometer 115 04/07/23 20:26: Glucometer 171 04/08/23 05:02: Glucometer 117 04/08/23 05:17: White Blood Count 5.0, Red Blood Count 3.42, Hemoglobin 11.1, Hematocrit 33, Mean Corpuscular Volume 95, Mean Corpuscular Hemoglobin 33, Mean Corpuscular Hemoglobin Concent 34, Red Cell Distribution Width 12.3, Platelet Count 207, Mean Platelet Volume 9.3, Immature Granulocyte % (Auto) 1, Neutrophils (%) (Auto) 59, Lymphocytes (%) (Auto) 23, Monocytes (%) (Auto) 13, Eosinophils (%) (Auto) 3, Basophils (%) (Auto) 0, Neutrophils # (Auto) 3.0, Lymphocytes # (Auto) 1.2, Monocytes # (Auto) 0.7, Eosinophils # (Auto) 0.2, Basophils # (Auto) 0.0, Immature Granulocyte # (Auto) 0.0, Sodium Level 132, Potassium Level 4.6, Chloride Level 104, Carbon Dioxide Level 21, Anion Gap 7, Blood Urea Nitrogen 12, Creatinine 0.90, Estimat Glomerular Filtration Rate 66, BUN/Creatinine Ratio 13, Glucose Level 119, Calcium Level 9.3, Corrected Calcium 9.5, Magnesium Level 1.7, Total Bilirubin 0.4, Aspartate Amino Transf (AST/SGOT) 48, Alanine Aminotransferase (ALT/SGPT) 50, Alkaline Phosphatase 78, Total Protein 6.5, Albumin 3.7 04/08/23 10:09: Glucometer 230 04/08/23 15:30: Glucometer 325 04/08/23 17:03: Vancomycin Level Trough 7.1 04/08/23 21:26: Glucometer 277 04/09/23 05:04: Glucometer 275 04/09/23 05:06: White Blood Count 6.5, Red Blood Count 3.32, Hemoglobin 10.9, Hematocrit 31, Mean Corpuscular Volume 94, Mean Corpuscular Hemoglobin 33, Mean Corpuscular Hemoglobin Concent 35, Red Cell Distribution Width 12.1, Platelet Count 213, Mean Platelet Volume 9.3, Immature Granulocyte % (Auto) 1, Neutrophils (%) (Auto) 78, Lymphocytes (%) (Auto) 11, Monocytes (%) (Auto) 9, Eosinophils (%) (Auto) 0, Basophils (%) (Auto) 0, Neutrophils # (Auto) 5.0, Lymphocytes # (Auto) 0.7, Monocytes # (Auto) 0.6, Eosinophils # (Auto) 0.0, Basophils # (Auto) 0.0, Immature Granulocyte # (Auto) 0.1, Sodium Level 131, Potassium Level 4.6, Chloride Level 102, Carbon Dioxide Level 19, Anion Gap 10, Blood Urea Nitrogen 14, Creatinine 0.95, Estimat Glomerular Filtration Rate 62, BUN/Creatinine Ratio 15, Glucose Level 287, Calcium Level 9.2, Corrected Calcium 9.4, Magnesium Level 1.9, Total Bilirubin 0.3, Aspartate Amino Transf (AST/SGOT) 39, Alanine Aminotransferase (ALT/SGPT) 52, Alkaline Phosphatase 79, Total Protein 6.6, Albumin 3.8 04/09/23 11:05: Glucometer 361 Discharge Home Medications: Active Scripts Active Magnesium 2 gm/50 ml-0.9% NaCl (Magnesium Sulfate in 0.9% NaCl) 2 Gram/50 Ml Piggyback 2 Gm IV DAILY 7 Days Levemir (Insulin Determir) 100 Unit/Ml Soln 10 Unit SQ BID 7 Days Novolog (Insulin Aspart) 100 Unit/Ml Susp 0 Unit SC ACHS 7 Days SSI A Xanax Tablet (Alprazolam) 0.25 Mg Tab 0.25 Mg PO Q4HR PRN 7 Days Enoxaparin Sodium 40 Mg/0.4 Ml Syringe 40 Mg SC Q24H 7 Days Nicoderm Cq (Nicotine) 21 Mg/24 Hour Patch.td24 21 Mg TD DAILY 7 Days Albuterol Sulfate 2.5 Mg/3 Ml (0.083 %) Vial.neb 2.5 Mg INH RTQID 7 Days Vancomycin 1.75 gm/350 ml Bag (Vancomycin/Water For Inj (Peg)) 1.75 Gram/350 Ml Piggyback 1.75 Gm IV DAILY 6 Days Cefepime 1 gm Injection (Cefepime HCl/Dextrose, Iso-Osm) 1 Gram/50 Ml Froz.piggy 1 Gm IV Q8H 3 Days Reported Cetirizine HCl 10 Mg Tablet 10 Mg PO HS Advil (Ibuprofen) 200 Mg Tablet 400-600 Mg PO Q8H PRN Tylenol Extra Strength (Acetaminophen) 500 Mg Tablet 1,000 Mg PO Q8H PRN Multivitamin 1 Each Tablet 1 Each PO DAILY Vitamin D3 (Cholecalciferol (Vitamin D3)) 50 Mcg (2000 Unit) Tablet 50 Mcg PO DAILY Topiramate 25 Mg Tablet 25 Mg PO BID PRN Slow-Mag (Magnesium Chloride) 71.5 Mg Tab 71.5 Mg PO TID Magnesium Oxide 400 Mg (241.3 Mg Magnesium) Tablet 400 Mg PO TID Metoprolol Succinate 25 Mg Tab.er.24h 25 Mg PO DAILY Simvastatin 40 Mg Tablet 40 Mg PO HS Trelegy Ellipta 200-62.5-25 (Fluticasone/Umeclidin/Vilanter) 200-62.5 Blst.w.dev 1 Puff INH DAILY Amlodipine Besylate 5 Mg Tablet 5 Mg PO DAILY Oxycodone HCl 5 Mg Tablet 5 Mg PO Q8H PRN Montelukast Sodium 10 Mg Tablet 10 Mg PO HS Pantoprazole Sodium 40 Mg Tablet.dr 40 Mg PO DAILY Instructions to patient/family Please see electronic discharge instructions given to patient. WILFREDO MARTÍNEZ DO Apr 09, 2023 11:20
--- NOTE | 2023-04-09 11:34 | Occupational Ther Daily Note ---
OT Current Status-Daily Note Subjective Agreeable to OT, mentions need to toilet, Mental Status/Objective Patient Orientation: Person, Place, Time, Situation ADL-Treatment Therapy Code Descriptions/Definitions Functional Johnson Measure: 0=Not Assessed/NA 4=Minimal Assistance 1=Total Assistance 5=Supervision or Setup 2=Maximal Assistance 6=Modified Johnson 3=Moderate Assistance 7=Complete IndependenceSCALE: Activities may be completed with or without assistive devices. 3-Wuhzsbopbe-gbgqqlp completes the activity by him/herself with no assistance from a helper. 5-Set-up or Clean-up Assistance-helper sets up or cleans up; patient completes activity. [place] assists only prior to or following the activity. 4-Supervision or Touching Assistance-helper provides verbal cues and/or touching/steadying and/or contact guard assistance as patient completes activity. Assistance may be provided throughout the activity or intermittently. 3-Partial/Moderate Assistance-helper does LESS THAN HALF the effort. [place] lifts, holds or supports trunk or limbs, but provides less than half the effort. 2-Substantial/Maximal Assistance-helper does MORE THAN HALF the effort. [place] lifts or holds trunk or limbs and provides more than half the effort. 1-Blbohfboc-raxpka does ALL the effort. Patient does none of the effort to complete the activity. Or, the assistance of 2 or more helpers is required for the patient to complete the activity. If activity was not attempted, code reason: 7-Patient Refused. 9-Not Applicable-not attempted and the patient did not perform the activity before the current illness, exacerbation or injury. 10-Not Attempted due to Environmental Limitations-(lack of equipment, weather restraints, etc.). 88-Not Attempted due to Medical Conditions or Safety Concerns. Eating (QC): 6 Oral Hygiene (QC): 6 Upper Body Dressing (QC): 6 Lower Body Dressing (QC): 6 On/Off Footwear: 6 Toileting Hygiene (QC): 6 Toilet Transfer (QC): 6 Leaves FWW unattended during tasks Education OT Patient Education: Modified ADL techniques, Progress toward Goal/Update tx plan, Purpose of tx/functional activities, Reviewed precautions, Rehab process Teaching Recipient: Patient Response to Teaching: Return Demonstration OT Correction Goals Correction Goals Eating (QC): 6 Oral Hygiene (QC): 6 Toileting Hygiene (QC): 6 Shower/Bathe Self (QC): 9 Upper Body Dressing (QC): 6 Lower Body Dressing (QC): 4 On/Off Footwear (QC): 4 1=Demonstrate adherence to instructed precautions during ADL tasks. 2=Patient will verbalize/demonstrate understanding of assistive devices/modifications for ADL. 3=Patient will improve strength/tolerance for activity to enable patient to perform ADL's. OT Education/Plan Discharge Recommendations Plan/Recommendations: Discharge/Goals Met Therapy Discharge Recommendati: Home & Family Treatment Plan/Plan of Care Patient would benefit from OT for education, treatment and training to promote independence in ADL's, mobility, safety and/or upper extremity function for ADL's. Plan of Care: ADL Retraining, Concurrent Therapy, Functional Mobility, Group Exercise/Act as Ind, UE Funct Exercise/Act Treatment Duration: Apr 07, 2023 Frequency: 3 times per week Estimated Hrs Per Day: .25 hour per day Agreement: Yes Rehab Potential: Fair Remain in recliner all needs met Time Start Time: 10:15 Stop Time: 10:25 DATE: Apr 09, 2023 Total Time Billed (hr/min): 10 Billed Treatment Time ADL 10 BALA MCMILLAN OT Apr 09, 2023 11:34
[2023-04-09 15:48] VITALS: BP 168/76
[2023-04-09] MEDS ORDERED: VANCOMYCIN 1,750 MG/NS 500 ML IVPB IV SCH ×2 (18:00)
[2023-04-10] MEDS ORDERED: NICOTINE PATCH REMOVAL TP SCH (08:59)
[2023-04-10] MEDS ORDERED: TROUGH ORDER-PHARMACY XX NR (17:00)
== END 2023-04-09 15:20 | disposition swing bed (61) | DRG 862 ==
LOC: CSD 17:46 → 4TH 04-07 13:00
PROVIDERS: ADMIT Internal Medicine; ATTEND Internal Medicine
DX: T81.41XA Infection following a procedure, superficial incisional surgical site, initial encounter (principal); A41.02 Sepsis due to Methicillin resistant Staphylococcus aureus; J18.9 Pneumonia, unspecified organism; J96.20 Acute and chronic respiratory failure, unspecified whether with hypoxia or hypercapnia; T81.31XA Disruption of external operation (surgical) wound, not elsewhere classified, initial encounter; J44.0 Chronic obstructive pulmonary disease with (acute) lower respiratory infection; F17.210 Nicotine dependence, cigarettes, uncomplicated; E86.1 Hypovolemia; R73.9 Hyperglycemia, unspecified; E83.42 Hypomagnesemia; R19.7 Diarrhea, unspecified; E78.00 Pure hypercholesterolemia, unspecified; I10 Essential (primary) hypertension; K21.9 Gastro-esophageal reflux disease without esophagitis; M19.90 Unspecified osteoarthritis, unspecified site; H91.13 Presbycusis, bilateral; F41.9 Anxiety disorder, unspecified; Z99.81 Dependence on supplemental oxygen; Z93.2 Ileostomy status; Z88.0 Allergy status to penicillin; Z91.09 Other allergy status, other than to drugs and biological substances; Z97.4 Presence of external hearing-aid; Z90.49 Acquired absence of other specified parts of digestive tract; Z85.038 Personal history of other malignant neoplasm of large intestine; Z85.118 Personal history of other malignant neoplasm of bronchus and lung
CPT/HCPCS: 36415; 71045; 80053; 80202; 82607; 82947; 83036; 83540; 83605; 83735; 84443; 85025; 85610; 85730; 87040; 87070; 87077; 87186; 87205; 94640; 94664; 94760

== ENCOUNTER 2023-06-01 16:25 | Inpatient (IN) | payer MEDICARE ==
[~2023-06-01] VITALS: Ht 157.5 cm; Wt 84.1 kg
[~2023-06-01 16:25] MED LIST changes: +ACET-2267 PO; +CEFE1FRO IV; +CHOL200059 PO; +FLUT1BLS15 INH; +IBUP-30 PO; +INSU100V16 SC; +INSU100V5 SQ; +MAGN2PIG IV; +MGX400T PO; +MTP25TSR PO; +MULT-1136 PO; +NF-MAG64T PO; +NICO1PAT34 TD; +TOPI25TA10 PO; +[UNRECOGNIZED DRUG - CODE] IV
[2023-06-01] MEDS ORDERED: ONDANSETRON 4 MG (ZOFRAN) ORAL DISSOLVE TAB PO PRN (16:45)
[2023-06-01] MEDS ORDERED: LACTULOSE SYRUP 10GM/15ML 30ML UDC PO PRN (16:45)
[2023-06-01] MEDS ORDERED: MELATONIN 3 MG TABLET PO PRN (16:45)
[2023-06-01] MEDS ORDERED: morphine INJ 4 MG/ML 1 ML (VIAL/SYRINGE) IV PRN (16:45)
[2023-06-01] MEDS ORDERED: CALCIUM CARBONATE 500 MG CHEW TABLET PO PRN (16:45)
[2023-06-01] MEDS ORDERED: ONDANSETRON 4 MG/2 ML (SDV) Z0FRAN IV PRN (16:45)
[2023-06-01] MEDS ORDERED: polyethylene glycoL POWDER 17 GM (MIRALAX) PACK PO PRN (16:45)
[2023-06-01] MEDS ORDERED: ACETAMINOPHEN 325 MG TABLET PO PRN (16:45)
[2023-06-01] MEDS ORDERED: BISACODYL 10 MG SUPPOSITORY PR PRN (16:45)
[2023-06-01] MEDS ORDERED: ANTACID SUSP 30 ML UDC (MYLANTA) PO PRN (16:45)
[2023-06-01] MEDS ORDERED: diphenhydrAMINE 25 MG TABLET PO PRN (16:45)
[2023-06-01] MEDS ORDERED: MILK OF MAGNESIA 400 MG/5 ML 30 ML UDC PO PRN (16:45)
[2023-06-01] MEDS ORDERED: diphenhydrAMINE INJ 50 MG/ML VIAL IVP PRN (16:45)
[2023-06-01] MEDS ORDERED: ALBU2.5V4 INH (17:04)
[2023-06-01] MEDS ORDERED: ALPR.25T PO (17:04)
[2023-06-01] MEDS: CEFEPIME INJECTION 1,000 MG in NS (IVPB) 50 ML 50 ML IV SCH (17:19)
[2023-06-01] MEDS: NS IV 1000 ML 1,000 ML IV SCH (17:19)
[2023-06-01] MEDS: ENOXAPARIN 40 MG/0.4 ML SYRINGE SC SCH (17:20)
--- NOTE | 2023-06-01 17:42 | Diagnostic Imaging Report ---
Indication: Hypoxia. Time of Exam: 5:17 PM Correlation is made with prior chest from 04/06/2023. Heart size is stable. Chronic scarring or atelectasis left base near the costophrenic angle appears similar to prior exam. Remainder of the lung salmeron are clear. No effusion or pneumothorax is identified. Left chest wall port has tip overlying the SVC. IMPRESSION: Stable chronic changes since exam from 04/06/2023. Dictated by: Dictated on workstation # [id number]
[2023-06-01 17:45] VITALS: BP 111/69
[2023-06-01 17:58] LABS: BASOPHILS % (AUTO) 0 % (0-10); EOSINOPHILS # (AUTO) 0.1 10^3/uL (0.0-0.3); EOSINOPHILS % (AUTO) 1 % (0-10); HEMATOCRIT 39 % (35-52); HEMOGLOBIN 13.7 g/dL (11.5-16.0); LYMPHOCYTES # (AUTO) 2.2 10^3/uL (1.0-4.0); LYMPHOCYTES % (AUTO) 19 % (12-44); MEAN CORPUSCULAR HEMOGLOBIN 33 pg (25-34); MEAN CORPUSCULAR HGB CONC 36 g/dL (32-36); MEAN CORPUSCULAR VOLUME 91 fL (80-99); MEAN PLATELET VOLUME 9.5 fL (9.0-12.2); MONOCYTES # (AUTO) 0.9 10^3/uL (0.0-1.0); MONOCYTES % (AUTO) 7 % (0-12); NEUTROPHILS # (AUTO) 8.4 10^3/uL (1.8-7.8); NEUTROPHILS % (AUTO) 72 % (42-75); PLATELET COUNT 275 10^3/uL (130-400); WHITE BLOOD COUNT 11.6 10^3/uL (4.3-11.0)
[2023-06-01 18:10] LABS: ALBUMIN 4.4 GM/DL (3.2-4.5)
[2023-06-01 18:11] LABS: POTASSIUM 4.5 MMOL/L (3.6-5.0)
[2023-06-01 18:12] LABS: CALCIUM 10.2 MG/DL (8.5-10.1)
[2023-06-01 18:13] LABS: TOTAL PROTEIN 7.7 GM/DL (6.4-8.2)
[2023-06-01 18:15] LABS: BILIRUBIN,TOTAL 0.3 MG/DL (0.1-1.0)
[2023-06-01 18:17] LABS: CREATININE SERUM 1.88 MG/DL (0.60-1.30)
[2023-06-01] MEDS ORDERED: toPIRamate 25 MG (TOPAMAX) TAB PO PRN (18:30)
[2023-06-01] MEDS ORDERED: NS (IVPB) 250 ML 250 ML IV ONE ×2 (18:30→21:00)
[2023-06-01] MEDS: DOXYCYCLINE INJECTION 100 MG in NS (IVPB) 100 ML 100 ML IV SCH (19:03)
[2023-06-01] MEDS ORDERED: NICOTINE 14 MG (NICODERM) PATCH TD NR (20:00)
[2023-06-01] MEDS: SENNOSIDES 8.6 MG (SENOKOT) TAB PO SCH (20:13)
[2023-06-01] MEDS: DOCUSATE SODIUM 100 MG CAPSULE PO SCH (20:13)
[2023-06-01] MEDS: LORATADINE 10 MG TABLET PO SCH (20:13)
[2023-06-01] MEDS: MAGNESIUM OXIDE (MAG-OX)400 MG TAB PO SCH (20:13)
[2023-06-01] MEDS: MICONAZOLE 2% POWDER (DESENEX AF) 90 GM TOP SCH (20:23)
[2023-06-01 20:31] VITALS: BP 105/59
[2023-06-01] MEDS ORDERED: MAGNESIUM CHLORIDE 71.5 MG PO SCH (21:00)
[2023-06-01] MEDS ORDERED: NON-FORMULARY MEDICATION 1 EA EA (Cetirizine HCl 10 MG) PO SCH (21:00)
[2023-06-01] MEDS ORDERED: NON-FORMULARY MEDICATION 1 EA EA (Simvastatin 40 MG) PO SCH (21:00)
[2023-06-01] MEDS ORDERED: NS (IVPB) 250 ML 250 ML ONE (21:07)
[2023-06-01] MEDS: inSUlin ASPART 1 UNIT/0.01 ML (PER UNIT) SC SCH (21:10)
[2023-06-01 21:37] LABS: BILIRUBIN,URINE NEGATIVE (NEGATIVE); CLARITY,URINE CLEAR; COLOR,URINE YELLOW; GLUCOSE, URINE (UA) NEGATIVE (NEGATIVE); KETONES,URINE NEGATIVE (NEGATIVE); NITRITE,URINE NEGATIVE (NEGATIVE); PH,URINE 5.5 (5-9); PROTEIN,URINE TRACE (NEGATIVE)
[2023-06-01 21:38] LABS: LEUKOCYTE ESTERASE ,URINE 1+ (NEGATIVE)
[2023-06-01 21:40] LABS: BACTERIA,URINE TRACE /HPF; RBC,URINE 0-2 /HPF
[2023-06-01 21:41] LABS: AMORPHOUS SEDIMENT,UR RARE AMOR URATES /LPF; URINE OTHER TRANS EPI 5-10 /HPF
[2023-06-01 22:04] VITALS: BP 146/85
[2023-06-01] MEDS ORDERED: RT-ALBUTEROL SULF 2.5 MG/3 ML PRE-MIX VIAL INH PRN (22:15)
[2023-06-01] MEDS: MAGNESIUM 1 GM/100 ML IVPB 100 ML IV SCH ×2 (22:35→23:35)
[2023-06-01 23:25] VITALS: BP 120/66
[2023-06-02] MEDS: CEFEPIME INJECTION 1,000 MG in NS (IVPB) 50 ML 50 ML IV SCH ×3 (01:18→17:21)
[2023-06-02 03:22] VITALS: BP 116/65
[2023-06-02] MEDS: inSUlin ASPART 1 UNIT/0.01 ML (PER UNIT) SC SCH ×4 (05:28→20:16)
--- NOTE | 2023-06-02 05:31 | History & Physical ---
History of Present Illness HPI/Chief Complaint Chief complaint: Severe generalized weakness with acute exacerbation of COPD HPI: This is a 77-year-old female with a history of colon cancer and lung cancer who presented to clinic with increased shortness of breath and generalized weakness. She was directly admitted placed on protocol meds for bacterial bronchitis and abdominal wound does have an abrasion requiring wound care consult. Patient was found to have dehydration so she was given IV fluids overnight and she is much improved. She does not wish to have any repeat scans done although it was recommended by Dr. Morgan oncology. She remains a full code. Overall she has had a gradual decline over the last few months requiring hospital stay. We will initiate IV steroids and will ultimately need penitentiary placement. Source: patient Exam Limitations: no limitations Date Seen 06/02/23 Time Seen by a Provider: 12:00 Attending Physician Genna Chapman DO PCP Admitting Physician: Genna Chapman DO Attending Physician: Genna Chapman DO Referring Physician Date of Admission Jun 01, 2023 at 16:42 Home Medications & Allergies Home Medications Reviewed patient Home Medication Reconciliation performed by pharmacy medication reconciliations mechanical assembly technician and/or nursing. Patients Allergies have been reviewed. Allergies Allergies Coded Allergies Penicillins (Verified Allergy, Unknown, Anaphylaxis, 09/26/20) budesonide (Verified Allergy, Unknown, Nausea, PT USES TRELEGY, 12/20/20) formoterol (Verified Allergy, Unknown, Nausea, 09/26/20) midazolam (Verified Allergy, Unknown, Anaphylaxis, pt has rec Lorazepam & alprazolam in the past, 02/04/21) Has received Lorazepam & alprazolam without issue Past Uqlufjm-Zwwmqw-Swundy Hx Past Med/Social Hx: Reviewed Nursing Past Med/Soc Hx, Reviewed and Corrections made Patient Social History Marrital Status: single Employed/Student: retired Alcohol Use: Denies Use Smoking Status: Current Everyday Smoker Type Used: Cigarettes 2nd Hand Smoke Exposure: No Recent Hopitalizations: No Immunizations Up To Date Tetanus Booster (TDap): Unknown Date of Pneumonia Vaccine: Jul 25, 2020 Date of Influenza Vaccine: Aug 06, 2020 Seasonal Allergies Seasonal Allergies: Yes Past Medical History Surgeries: Abdominal, Bowel Surgery, Eye Surgery, Tonsillectomy Respiratory: COPD, Pneumonia Currently Using CPAP: No Currently Using BIPAP: No Cardiac: High Cholesterol, Hypertension Menopausal Genitourinary: Bladder Infection, Renal Failure Gastrointestinal: Gastroesophageal Reflux, Chronic Constipation Musculoskeletal: Arthritis, Chronic Back Pain HEENT: Cataract Hearing Impairment: Hard of Hearing, Bilateral Hearing Aide Cancer: Lung, Colon Did You Recieve Any Treatments: Yes What Type of Treatment Did You: Radiation, Surgical Intervention Psychosocial: Anxiety History of Blood Disorders: No Family History No Pertinent Family Hx PAST SURGICAL HISTORY: -TONSILLECTOMY -BILATERAL CATARACT SURGERY -COLONOSCOPY -PORT LEFT CHEST -11/01/20--HAD EXTENDED RIGHT HEMICOLECTOMY WITH SUBSEQUENT ILEOCOLONIC TORSION, WITH PERMANENT ILEOSTOMY; MULTIPLE RESECTIONS AND REVISIONS, DEBRIDEMENTS AND DRAINAGE OF INTRA-ABDOMINAL ABSCESSES AND MESH PLACEMENT. HAS HAD MULTPLE EPISODES OF SEPSIS AND GENERALIZED DECONDITIONING AND REQUIRED INPATIENT REHAB STAYS AFTER EACH ADMIT. MULTIPLE VISITS SINCE FIRST VISIT HERE 10/31/20 Review of Systems Constitutional: see HPI, malaise, weakness EENTM: no symptoms reported Respiratory: cough, dyspnea on exertion, short of breath Cardiovascular: no symptoms reported Genitourinary: no symptoms reported Musculoskeletal: no symptoms reported Skin: see HPI Psychiatric/Neurological: No Symptoms Reported, Anxiety, Depressed All Other Systems Reviewed Negative Unless Noted: Yes Physical Exam Physical Exam Vital Signs Vital Signs - First Documented 06/01/23 06/01/23 06/01/23 17:34 17:42 17:45 Temp 37.0 Pulse 80 Resp 18 B/P (MAP) 111/69 (83) Pulse Ox 98 O2 Delivery Nasal Cannula O2 Flow Rate 2.00 Capillary Refill : Height, Weight, BMI Height: '" Weight: lbs. oz. kg; 32.04 BMI Method: General Appearance: No Apparent Distress, WD/WN, Chronically ill Eyes: Bilateral Eye Normal Inspection, Bilateral Eye PERRL HEENT: PERRL/EOMI, Normal ENT Inspection, Pharynx Normal Neck: Full Range of Motion, Normal Inspection, Non Tender, Supple, Carotid Bruit Respiratory: Chest Non Tender, No Respiratory Distress, Accessory Muscle Use, Decreased Breath Sounds, Wheezing Cardiovascular: Regular Rate, Rhythm, No Edema, No Gallop, No JVD, No Murmur, Normal Peripheral Pulses Gastrointestinal: Normal Bowel Sounds, No Organomegaly, No Pulsatile Mass, Non Tender, Soft Back: Normal Inspection, No CVA Tenderness, No Vertebral Tenderness Extremity: Normal Capillary Refill, Normal Inspection, Normal Range of Motion, Non Tender, No Calf Tenderness, No Pedal Edema Neurologic/Psychiatric: Alert, Oriented x3, No Motor/Sensory Deficits, Normal Mood/Affect Skin: Normal Color, Warm/Dry Lymphatic: No Adenopathy Results Results/Procedures Labs Laboratory Tests 06/01/23 17:40 06/02/23 05:25 Patient resulted labs reviewed. Assessment/Plan Admission Diagnosis Assessment: Exacerbation of COPD Acute kidney injury due to dehydration Severe weakness Bacterial bronchitis Abdominal wound abrasion requiring wound care consult Colon cancer status post resection with diverting ileostomy Lung cancer status post radiation Chronic hypomagnesemia Anxiety Severe presbycusis Current smoker Hyponatremia Lovenox for DVT prophylaxis Plan: Supportive care IV antibiotics Wound care consult PT and OT Continue IV antibiotics and IV steroids Admission Status: Inpatient Order (span 2 midnights) Reason for Inpatient Admission: Severe COPD with exacerbation and bacterial bronchitis with acute kidney injury from dehydration causing severe weakness will require 3 midnights GENNA CHAPMAN DO Jun 02, 2023 05:31
[2023-06-02 05:40] LABS: BASOPHILS # (AUTO) 0.1 10^3/uL (0.0-0.1); BASOPHILS % (AUTO) 1 % (0-10); EOSINOPHILS # (AUTO) 0.2 10^3/uL (0.0-0.3); EOSINOPHILS % (AUTO) 2 % (0-10); HEMATOCRIT 34 % (35-52); HEMOGLOBIN 12.1 g/dL (11.5-16.0); LYMPHOCYTES # (AUTO) 2.2 10^3/uL (1.0-4.0); LYMPHOCYTES % (AUTO) 26 % (12-44); MEAN CORPUSCULAR HEMOGLOBIN 33 pg (25-34); MEAN CORPUSCULAR HGB CONC 36 g/dL (32-36); MEAN CORPUSCULAR VOLUME 92 fL (80-99); MEAN PLATELET VOLUME 9.6 fL (9.0-12.2); MONOCYTES # (AUTO) 0.7 10^3/uL (0.0-1.0); MONOCYTES % (AUTO) 8 % (0-12); NEUTROPHILS # (AUTO) 5.3 10^3/uL (1.8-7.8); NEUTROPHILS % (AUTO) 62 % (42-75); PLATELET COUNT 233 10^3/uL (130-400); WHITE BLOOD COUNT 8.5 10^3/uL (4.3-11.0)
[2023-06-02 05:56] LABS: ALBUMIN 3.9 GM/DL (3.2-4.5); BILIRUBIN,TOTAL 0.4 MG/DL (0.1-1.0); CALCIUM 9.3 MG/DL (8.5-10.1); CREATININE SERUM 1.53 MG/DL (0.60-1.30); MAGNESIUM 2.5 MG/DL (1.6-2.4); TOTAL PROTEIN 6.3 GM/DL (6.4-8.2)
[2023-06-02] MEDS: DOXYCYCLINE INJECTION 100 MG in NS (IVPB) 100 ML 100 ML IV SCH ×2 (06:05→18:42)
[2023-06-02] MEDS: NS IV 1000 ML 1,000 ML IV SCH ×2 (06:05→20:23)
[2023-06-02 07:51] VITALS: BP 119/57
[2023-06-02] MEDS: UMECLIDINIUM BROMIDE (INCRUSE ELLIPTA) 7'S IH SCH (08:07)
[2023-06-02] MEDS: FLUTICASONE/VILANTEROL 200/25 MCG (7 DOSES) IH SCH (08:07)
[2023-06-02] MEDS: MAGNESIUM OXIDE (MAG-OX)400 MG TAB PO SCH ×3 (08:21→20:17)
[2023-06-02] MEDS: amLODIPine 5 MG TABLET PO SCH (08:21)
[2023-06-02] MEDS: PANTOPRAZOLE 40 MG (PROTONIX) TAB PO SCH (08:21)
[2023-06-02] MEDS: SENNOSIDES 8.6 MG (SENOKOT) TAB PO SCH ×2 (08:23→20:19)
[2023-06-02] MEDS: NICOTINE 14 MG (NICODERM) PATCH TD SCH (08:23)
[2023-06-02] MEDS: MICONAZOLE 2% POWDER (DESENEX AF) 90 GM TOP SCH ×2 (08:24→20:17)
[2023-06-02] MEDS: NICOTINE PATCH REMOVAL TP SCH (08:24)
[2023-06-02] MEDS: DOCUSATE SODIUM 100 MG CAPSULE PO SCH ×2 (08:24→20:18)
[2023-06-02] MEDS ORDERED: NON-FORMULARY MEDICATION 1 EA EA (Fluticasone/Umeclidin/Vilanter (Trelegy Ellipta 200-62.5 INH SCH (09:00)
[2023-06-02 11:33] VITALS: BP 113/56
[2023-06-02] MEDS ORDERED: HYPOCHLOROUS ACID/NaCl (VASHE) 250 ML IR SCH (12:45)
--- NOTE | 2023-06-02 12:59 | Wound Care Assessment ---
Wound Care Assessment Date Seen by Provider: Jun 02, 2023 Time Seen by Provider: 11:30 Chief Complaint Chronic abdominal wound HPI This pleasant 77 year old is well known to myself from several inpatient admissions with chronic abdominal wound. Bere had colon CA with R. hemicolectomy in 2020. Subsequent infection and mesh placement. Numerous revisions and debridements with chronically infected mesh. She remains under the care of Dr. Gomez and has had great improvements lately with medihoney and HFB changed 3 times weekly. She continues to smoke 1/2 ppd. She does also have a h/o radiation which also likely complicates her wound healing. She is admitted today with COPD. Her wound is greatly improved today from when I last saw her. Plan to dress daily with silver alginate while she is admitted with us. Past Medical History: Admits Cancer, Treaments Colon CA, h/o radiation therapy, R. hemicolectomy and permanent iliostomy, COPD, tobaccoism Smoking Status: Current Everyday Smoker Recreational Drug Use: No Alcohol Use: Denies Use Review of Systems Neurological: Weakness Exam Vital Signs Date Time Temp Pulse Resp B/P (MAP) Pulse Ox O2 Delivery O2 Flow Rate FiO2 06/02/23 11:33 36.3 73 18 113/56 (75) 97 Nasal Cannula 3.00 Capillary Refill : General Appearance: WD/WN, no apparent distress, obese HEENT: other (normal hearing) Neck: full range of motion Cardiovascular: no edema Respiratory: no accessory muscle use, other (continuous oxygen (home dose currently)) Gastrointestinal: other (permanent iliostomy) Extremities: non-tender, normal inspection, no pedal edema Neurologic/Psychiatric: alert, normal mood/affect, oriented x 3 Skin: normal color, warm/dry Skin Problem Location: torso Wound assessment: 2.5x2.0x0.1. The epitheliazation is large. There is no tunneling or undermining. Drainage is large and serosnaguinous. Granulation is large and pink. Necrotic is none. Margins flat Results Laboratory Tests 06/01/23 17:40: White Blood Count 11.6H, Red Blood Count 4.22, Hemoglobin 13.7, Hematocrit 39, Mean Corpuscular Volume 91, Mean Corpuscular Hemoglobin 33, Mean Corpuscular Hemoglobin Concent 36, Red Cell Distribution Width 12.7, Platelet Count 275, Mean Platelet Volume 9.5, Immature Granulocyte % (Auto) 1, Neutrophils (%) (Auto) 72, Lymphocytes (%) (Auto) 19, Monocytes (%) (Auto) 7, Eosinophils (%) (Auto) 1, Basophils (%) (Auto) 0, Neutrophils # (Auto) 8.4H, Lymphocytes # (Auto) 2.2, Monocytes # (Auto) 0.9, Eosinophils # (Auto) 0.1, Basophils # (Auto) 0.0, Immature Granulocyte # (Auto) 0.1, Sodium Level 126L, Potassium Level 4.5, Chloride Level 101, Carbon Dioxide Level 13L, Anion Gap 12, Blood Urea Nitrogen 83H, Creatinine 1.88H, Estimat Glomerular Filtration Rate 27, BUN/Creatinine Ratio 44, Glucose Level 142H, Calcium Level 10.2H, Corrected Calcium 9.9, Magnesium Level 2.0, Total Bilirubin 0.3, Aspartate Amino Transf (AST/SGOT) 27, Alanine Aminotransferase (ALT/SGPT) 34, Alkaline Phosphatase 91, B-Type Natriuretic Peptide 26.7, Total Protein 7.7, Albumin 4.4 06/01/23 20:43: Glucometer 165H 06/01/23 21:18: Urine Color YELLOW, Urine Clarity CLEAR, Urine pH 5.5, Urine Specific [place] 1.015L, Urine Protein TRACEH, Urine Glucose (UA) NEGATIVE, Urine Ketones NEGATIVE, Urine Nitrite NEGATIVE, Urine Bilirubin NEGATIVE, Urine Urobilinogen 0.2, Urine Leukocyte Esterase 1+H, Urine RBC (Auto) NEGATIVE, Urine RBC 0-2, Urine WBC 10-25H, Urine Squamous Epithelial Cells 2-5, Urine Crystals PRESENTH, Urine Amorphous Sediment RARE CHERI URATESH, Urine Bacteria TRACE, Urine Casts NONE, Urine Mucus SMALLH, Urine Other TRANS EPI 5-10, Urine Culture Indicated YES 06/02/23 05:24: Glucometer 123H 06/02/23 05:25: White Blood Count 8.5, Red Blood Count 3.70L, Hemoglobin 12.1, Hematocrit 34L, Mean Corpuscular Volume 92, Mean Corpuscular Hemoglobin 33, Mean Corpuscular Hemoglobin Concent 36, Red Cell Distribution Width 12.8, Platelet Count 233, Mean Platelet Volume 9.6, Immature Granulocyte % (Auto) 1, Neutrophils (%) (Auto) 62, Lymphocytes (%) (Auto) 26, Monocytes (%) (Auto) 8, Eosinophils (%) (Auto) 2, Basophils (%) (Auto) 1, Neutrophils # (Auto) 5.3, Lymphocytes # (Auto) 2.2, Monocytes # (Auto) 0.7, Eosinophils # (Auto) 0.2, Basophils # (Auto) 0.1, Immature Granulocyte # (Auto) 0.0, Sodium Level 128L, Potassium Level 4.0, Chloride Level 104, Carbon Dioxide Level 15L, Anion Gap 9, Blood Urea Nitrogen 69H, Creatinine 1.53H, Estimat Glomerular Filtration Rate 35, BUN/Creatinine Ratio 45, Glucose Level 117H, Calcium Level 9.3, Corrected Calcium 9.4, Magnes ium Level 2.5H, Total Bilirubin 0.4, Aspartate Amino Transf (AST/SGOT) 25, Alanine Aminotransferase (ALT/SGPT) 31, Alkaline Phosphatase 76, Total Protein 6.3L, Albumin 3.9 06/02/23 10:40: Glucometer 173H Microbiology 06/01/23 Urine Culture - Preliminary, Resulted Microbiology 06/01/23 Urine Culture - Preliminary, Resulted Assessment/Plan/Dx Assessment: 1. Chronic abdominal wound (h/o infected mesh) 2. h/o Colon CA with hemicolectomy and permanent iliostomy 3. COPD exacerbation 4. h/o radiation therapy 5. Tobaccoism 6. CKD stage 3 7. Hyponatremia Plan: 1. Cleanse daily with vashe. Apply silver alginate hydrofiber. Secure with Allevyn BFD. Change daily. F/U Dr. Gomez upon d/c home. 2. Defer to primary 3. Defer to primary 4. Likely playing a role in infection and delayed wound healing 5. Advised cessation today 6. Defer to primary 7. Defer to primary KARLENE TABOR MD Jun 02, 2023 12:59
[2023-06-02] MEDS ORDERED: ALPRAZolam 0.25 MG TABLET PO PRN (13:00)
[2023-06-02] MEDS ORDERED: MONT-40 PO (14:43)
[2023-06-02] MEDS ORDERED: OXC5T PO (14:43)
[2023-06-02] MEDS ORDERED: ALPR0.254 PO (14:43)
--- NOTE | 2023-06-02 15:03 | Physical Therapy Evaluation ---
PT Evaluation-General Medical Diagnosis Admission Date Jun 01, 2023 at 16:42 Medical Diagnosis: COPD exacerbation Onset Date: May 31, 2023 Therapy Diagnosis Therapy Diagnosis: Gait deficit Precautions Precautions/Isolations: Standard Precautions Weight Bear Status Right Lower Extremity: Right Full Weight Bearing Left Lower Extremity: Left Full Weight Bearing Referral Physician: Dr. Chapman Reason for Referral: Evaluation/Treatment Medical History Pertinent Medical History: Arthritis, COPD, HTN, Smoking Social History Home: Single Level Current Living Status: Other Family Entry Into Home: Stairs With Railing PT Steps Into Home: 3 Prior Prior Level of Function SCALE: Activities may be completed with or without assistive devices. 2-Cvnqjjcyja-liqszhe completes the activity by him/herself with no assistance from a helper. 5-Set-up or Clean-up Assistance-helper sets up or cleans up; patient completes activity. [place] assists only prior to or following the activity. 4-Supervision or Touching Assistance-helper provides verbal cues and/or touching/steadying and/or contact guard assistance as patient completes activity. Assistance may be provided throughout the activity or intermittently. 3-Partial/Moderate Assistance-helper does LESS THAN HALF the effort. [place] lifts, holds or supports trunk or limbs, but provides less than half the effort. 2-Substantial/Maximal Assistance-helper does MORE THAN HALF the effort. [place] lifts or holds trunk or limbs and provides more than half the effort. 7-Zbbfjgvvm-pymfjw does ALL the effort. Patient does none of the effort to complete the activity. Or, the assistance of 2 or more helpers is required for the patient to complete the activity. If activity was not attempted, code reason: 7-Patient Refused. 9-Not Applicable-not attempted and the patient did not perform the activity befo re the current illness, exacerbation or injury. 10-Not Attempted due to Environmental Limitations-(lack of equipment, weather re straints, etc.). 88-Not Attempted due to Medical Conditions or Safety Concerns. Bed Mobility: 6 Transfers (B,C,W/C): 6 Gait: 6 Stairs: 6 PT Evaluation-Current Subjective Patient lying supine in bed upon PT arrival, agreeable to treatment. Patient rates pain at 0/10. Objective Patient Orientation: Person, Place, Time, Situation Attachments: Oxygen, IV ROM/Strength ROM Lower Extremities WFLs BLEs all planes Strength Lower Extremities 3+/5 BLEs all planes Sensory Vision: Wears Glasses Hearing: Functional Sensation Right Lower Extremit: Intact Sensation Left Lower Extremity: Intact Transfers Roll Left to Right (QC): 4 Sit to Lying (QC): 4 Lying to Sitting/Side of Bed(Q: 4 Sit to Stand (QC): 4 Chair/Naa-jc-Xkuow Xfer(QC): 4 Toilet Transfer (QC): 4 Gait Does the Patient Walk?: Yes Mode of Locomotion: Walk Anticipated Mode of Locomotion: Walk Walk 10 feet (QC): 4 Distance: 15' Gait Assistive Device: FWW Balance Sitting Static: Good Sitting Dynamic: Good Standing Static: Fair Standing Dynamic: Fair Assessment/Needs Patient tolerated treatment well. Requires SBA for all bed mobility and transfers. Patient ambulates 15 feet with FWW with SBA. Patient in bed post tr eatment with all needs met, nursing notified, call light in hand. Rehab Potential: Fair PT Half-Way Goals Half-Way Goals PT Power Digger Operator Goals Time Frame: Jun 24, 2023 Roll Left & Right (QC): 6 Sit to Lying (QC): 6 Lying-Sitting on Side/Bed(QC): 6 Sit to Stand (QC): 6 Chair/Gko-nx-Nzuev Xfer(QC): 6 Toilet Transfer (QC): 6 Does the Patient Walk: Yes Walk 10 feet (QC): 6 Walk 50ft with 2 Turns (QC): 6 Walk 150 ft (QC): 6 1 Step (curb) (QC): 4 4 Steps (QC): 4 PT Plan Problem List Problem List: Activity Tolerance, Functional Strength, Safety, Balance, Gait, Transfer, Bed Mobility, ROM Treatment/Plan Treatment Plan: Continue Plan of Care Treatment Plan: Bed Mobility, Education, Functional Activity [place], Functional Strength, Group Therapy, Gait, Safety, Therapeutic Exercise, Transfers Treatment Duration: Jun 26, 2023 Frequency: 6 times per week Estimated Hrs Per Day: .25 hour per day Patient and/or Family Agrees t: Yes Safety Risks/Education Patient Education: Gait Training, Transfer Techniques Teaching Recipient: Patient Teaching Methods: Demonstration, Discussion Response to Teaching: Verbalize Understanding, Return Demonstration Time Time In: 1027 Time Out: 1040 DATE: Jun 02, 2023 Total Billed Treatment Time: 13 Total Billed Treatment Visit, LAWANDA POLLACK PT Jun 02, 2023 15:02
[2023-06-02 16:00] VITALS: BP 117/56
[2023-06-02] MEDS: ENOXAPARIN 40 MG/0.4 ML SYRINGE SC SCH (17:21)
[2023-06-02 19:47] VITALS: BP 104/55
[2023-06-02] MEDS: LORATADINE 10 MG TABLET PO SCH (20:17)
[2023-06-02] MEDS: oxyCODONE IMMEDIATE RELEASE 5 MG TABLET PO PRN (20:22)
[2023-06-02 23:04] VITALS: BP 116/53
[2023-06-03] MEDS: CEFEPIME INJECTION 1,000 MG in NS (IVPB) 50 ML 50 ML IV SCH ×3 (00:57→17:43)
[2023-06-03] MEDS: NS IV 1000 ML 1,000 ML IV SCH (02:11)
[2023-06-03 03:13] VITALS: BP 105/51
[2023-06-03 04:02] LABS: BASOPHILS % (AUTO) 1 % (0-10); EOSINOPHILS # (AUTO) 0.2 10^3/uL (0.0-0.3); EOSINOPHILS % (AUTO) 2 % (0-10); HEMATOCRIT 33 % (35-52); HEMOGLOBIN 11.5 g/dL (11.5-16.0); LYMPHOCYTES # (AUTO) 2.4 10^3/uL (1.0-4.0); LYMPHOCYTES % (AUTO) 30 % (12-44); MEAN CORPUSCULAR HEMOGLOBIN 33 pg (25-34); MEAN CORPUSCULAR HGB CONC 35 g/dL (32-36); MEAN CORPUSCULAR VOLUME 94 fL (80-99); MEAN PLATELET VOLUME 9.4 fL (9.0-12.2); MONOCYTES # (AUTO) 0.7 10^3/uL (0.0-1.0); MONOCYTES % (AUTO) 9 % (0-12); NEUTROPHILS # (AUTO) 4.7 10^3/uL (1.8-7.8); NEUTROPHILS % (AUTO) 58 % (42-75); PLATELET COUNT 215 10^3/uL (130-400); WHITE BLOOD COUNT 8.1 10^3/uL (4.3-11.0)
[2023-06-03 04:24] LABS: ALBUMIN 3.7 GM/DL (3.2-4.5); BILIRUBIN,TOTAL 0.4 MG/DL (0.1-1.0); CREATININE SERUM 1.35 MG/DL (0.60-1.30); MAGNESIUM 1.9 MG/DL (1.6-2.4); POTASSIUM 4.1 MMOL/L (3.6-5.0); TOTAL PROTEIN 6.1 GM/DL (6.4-8.2)
[2023-06-03] MEDS: DOXYCYCLINE INJECTION 100 MG in NS (IVPB) 100 ML 100 ML IV SCH (05:07)
[2023-06-03] MEDS: inSUlin ASPART 1 UNIT/0.01 ML (PER UNIT) SC SCH ×4 (05:38→20:28)
--- NOTE | 2023-06-03 05:52 | Progress Note ---
Subjective Date Seen by a Provider: Jun 03, 2023 Time Seen by a Provider: 11:00 Subjective/Events-last exam Patient doing much better Hep-Lock IV fluid IV steroids and IV antibiotics continue UTI culture pending skilled nursing tomorrow Review of Systems General: Fatigue, Malaise Pulmonary: Dyspnea Objective Exam Last Set of Vital Signs Vital Signs Date Time Temp Pulse Resp B/P (MAP) Pulse Ox O2 Delivery O2 Flow Rate FiO2 06/03/23 03:13 36.5 75 18 105/51 (69) 98 Nasal Cannula 2.00 Capillary Refill : I&O Intake and Output 06/03/23 00:00 Intake Total 1270 ml Output Total 1745 ml Balance -475 ml Intake Oral 1120 ml IV Total 150 ml Output Urine Total 1200 ml Stool Total 545 ml General: Alert, Oriented X3, Cooperative, No Acute Distress Lungs: Clear to Auscultation, Other ( diminished in the bases) Heart: Regular Rate, Normal S1, Normal S2, No Murmurs Psych/Mental Status: Mental Status NL Results Lab Laboratory Tests 06/02/23 10:40: Glucometer 173H 06/02/23 16:04: Glucometer 122H 06/02/23 20:09: Glucometer 167H 06/03/23 03:55: White Blood Count 8.1, Red Blood Count 3.50L, Hemoglobin 11.5, Hematocrit 33L, Mean Corpuscular Volume 94, Mean Corpuscular Hemoglobin 33, Mean Corpuscular Hemoglobin Concent 35, Red Cell Distribution Width 13.1, Platelet Count 215, Mean Platelet Volume 9.4, Immature Granulocyte % (Auto) 0, Neutrophils (%) (Auto) 58, Lymphocytes (%) (Auto) 30, Monocytes (%) (Auto) 9, Eosinophils (%) (Auto) 2, Basophils (%) (Auto) 1, Neutrophils # (Auto) 4.7, Lymphocytes # (Auto) 2.4, Monocytes # (Auto) 0.7, Eosinophils # (Auto) 0.2, Basophils # (Auto) 0.0, Immature Granulocyte # (Auto) 0.0, Sodium Level 132L, Potassium Level 4.1, Chloride Level 109H, Carbon Dioxide Level 15L, Anion Gap 8, Blood Urea Nitrogen 41H, Creatinine 1.35H, Estimat Glomerular Filtration Rate 40, BUN/Creatinine Ratio 30, Glucose Level 92, Calcium Level 9.0, Corrected Calcium 9.2, Magnesium Level 1.9, Total Bilirubin 0.4, Aspartate Amino Transf (AST/SGOT) 26, Alanine Aminotransferase (ALT/SGPT) 31, Alkaline Phosphatase 83, Total Protein 6.1L, Albumin 3.7 Microbiology 06/01/23 Urine Culture - Preliminary, Resulted 06/01/23 Blood Culture - Preliminary, Resulted No growth Assessment/Plan Assessment/Plan Assess & Plan/Chief Complaint Assessment: Exacerbation of COPD Acute kidney injury due to dehydration Severe weakness Bacterial bronchitis Abdominal wound abrasion requiring wound care consult Colon cancer status post resection with diverting ileostomy Lung cancer status post radiation Chronic hypomagnesemia Anxiety Severe presbycusis Current smoker Hyponatremia Lovenox for DVT prophylaxis Plan: Supportive care IV antibiotics Wound care consult PT and OT Continue IV antibiotics and IV steroids WILFREDO MARTÍNEZ DO Jun 03, 2023 05:52
[2023-06-03] MEDS: FLUTICASONE/VILANTEROL 200/25 MCG (7 DOSES) IH SCH (06:42)
[2023-06-03] MEDS: UMECLIDINIUM BROMIDE (INCRUSE ELLIPTA) 7'S IH SCH (06:42)
[2023-06-03 07:41] VITALS: BP 106/50
[2023-06-03] MEDS: NICOTINE 14 MG (NICODERM) PATCH TD SCH (08:27)
[2023-06-03] MEDS: DOCUSATE SODIUM 100 MG CAPSULE PO SCH ×2 (08:28→20:29)
[2023-06-03] MEDS: NICOTINE PATCH REMOVAL TP SCH (08:28)
[2023-06-03] MEDS: MICONAZOLE 2% POWDER (DESENEX AF) 90 GM TOP SCH ×2 (08:28→20:30)
[2023-06-03] MEDS: PANTOPRAZOLE 40 MG (PROTONIX) TAB PO SCH (08:28)
[2023-06-03] MEDS: SODIUM BICARBONATE 650 MG TABLET PO SCH ×3 (08:28→20:28)
[2023-06-03] MEDS: SENNOSIDES 8.6 MG (SENOKOT) TAB PO SCH ×2 (08:28→20:29)
[2023-06-03] MEDS: MAGNESIUM OXIDE (MAG-OX)400 MG TAB PO SCH ×3 (08:28→20:28)
[2023-06-03] MEDS: amLODIPine 5 MG TABLET PO SCH (08:28)
--- NOTE | 2023-06-03 10:06 | Physical Therapy Daily Note ---
PT Daily Note-Current Subjective Patient agrees to PT. Pain Section J - Health Conditions 1. Rarely or not at all 2. Occasionally 3. Frequently 4. Almost constantly 8. Unable to answer Pain Effect on Sleep: 1 Pain Interference with Therapy: 1 Pain Interference w/Day-to-Day: 1 Mental Status Attachments: Central Line, Oxygen Transfers SCALE: Activities may be completed with or without assistive devices. 8-Stmdrqhhci-zzpnovr completes the activity by him/herself with no assistance from a helper. 5-Set-up or Clean-up Assistance-helper sets up or cleans up; patient completes activity. [place] assists only prior to or following the activity. 4-Supervision or Touching Assistance-helper provides verbal cues and/or touching/steadying and/or contact guard assistance as patient completes activity. Assistance may be provided throughout the activity or intermittently. 3-Partial/Moderate Assistance-helper does LESS THAN HALF the effort. [place] lifts, holds or supports trunk or limbs, but provides less than half the effort. 2-Substantial/Maximal Assistance-helper does MORE THAN HALF the effort. [place] lifts or holds trunk or limbs and provides more than half the effort. 5-Gsgqgjmzc-zblfgs does ALL the effort. Patient does none of the effort to complete the activity. Or, the assistance of 2 or more helpers is required for the patient to complete the activity. If activity was not attempted, code reason: 7-Patient Refused. 9-Not Applicable-not attempted and the patient did not perform the activity before the current illness, exacerbation or injury. 10-Not Attempted due to Environmental Limitations-(lack of equipment, weather restraints, etc.). 88-Not Attempted due to Medical Conditions or Safety Concerns. Sit to Lying (QC): 6 Lying to Sitting/Side of Bed(Q: 6 Sit to Stand (QC): 6 Toilet Transfer (QC): 6 Weight Bearing Right Lower Extremity: Right Full Weight Bearing Left Lower Extremity: Left Full Weight Bearing Gait Training Distance: 150' Walk 10 feet (QC): 6 Walk 50 ft with 2 Turns(QC): 6 Walk 150 ft (QC): 6 Gait Assistive Device: FWW safe and functional with no deviation Assessment Patient is currently at independent PLOF with all gross motor skills safely and does not require continued skilled PT intervention at this time. PT Fci Goals Fci Goals PT Infrastructure Administrator Goals Time Frame: Jun 24, 2023 Roll Left & Right (QC): 6 Sit to Lying (QC): 6 Lying-Sitting on Side/Bed(QC): 6 Sit to Stand (QC): 6 Chair/Rqs-qs-Skobk Xfer(QC): 6 Toilet Transfer (QC): 6 Does the Patient Walk: Yes Walk 10 feet (QC): 6 Walk 50ft with 2 Turns (QC): 6 Walk 150 ft (QC): 6 1 Step (curb) (QC): 4 4 Steps (QC): 4 PT Plan Treatment/Plan Treatment Plan: Discontinue PT Treatment Plan: Bed Mobility, Education, Functional Activity [place], Functional Strength, Group Therapy, Gait, Safety, Therapeutic Exercise, Transfers Treatment Duration: Jun 26, 2023 Frequency: 6 times per week Estimated Hrs Per Day: .25 hour per day Patient and/or Family Agrees t: Yes Time Time In: 924 Time Out: 937 DATE: Jun 03, 2023 Total Billed Treatment Time: 13 Total Billed Treatment 1 visit FA 13 min ROBERT SCHWAB PT Jun 03, 2023 10:06
[2023-06-03 11:13] VITALS: BP 103/52
[2023-06-03 15:41] VITALS: BP 104/53
[2023-06-03] MEDS: ENOXAPARIN 40 MG/0.4 ML SYRINGE SC SCH (17:43)
[2023-06-03] MEDS: oxyCODONE IMMEDIATE RELEASE 5 MG TABLET PO PRN (18:15)
[2023-06-03 19:34] VITALS: BP 109/55
[2023-06-03] MEDS: LORATADINE 10 MG TABLET PO SCH (20:28)
[2023-06-03] MEDS ORDERED: MONTELUKAST 10 MG (SINGULAIR) TAB PO SCH (21:00)
[2023-06-03 23:05] VITALS: BP 99/49
[2023-06-04] MEDS: CEFEPIME INJECTION 1,000 MG in NS (IVPB) 50 ML 50 ML IV SCH ×2 (00:17→09:04)
[2023-06-04 02:16] VITALS: BP 99/49
[2023-06-04 04:27] VITALS: BP 107/53
[2023-06-04 04:29] LABS: BASOPHILS % (AUTO) 1 % (0-10); EOSINOPHILS # (AUTO) 0.2 10^3/uL (0.0-0.3); EOSINOPHILS % (AUTO) 2 % (0-10); HEMATOCRIT 31 % (35-52); HEMOGLOBIN 10.7 g/dL (11.5-16.0); LYMPHOCYTES # (AUTO) 1.8 10^3/uL (1.0-4.0); LYMPHOCYTES % (AUTO) 26 % (12-44); MEAN CORPUSCULAR HEMOGLOBIN 33 pg (25-34); MEAN CORPUSCULAR HGB CONC 35 g/dL (32-36); MEAN CORPUSCULAR VOLUME 95 fL (80-99); MEAN PLATELET VOLUME 9.3 fL (9.0-12.2); MONOCYTES # (AUTO) 0.7 10^3/uL (0.0-1.0); MONOCYTES % (AUTO) 10 % (0-12); NEUTROPHILS # (AUTO) 4.1 10^3/uL (1.8-7.8); NEUTROPHILS % (AUTO) 60 % (42-75); PLATELET COUNT 178 10^3/uL (130-400); WHITE BLOOD COUNT 6.8 10^3/uL (4.3-11.0)
[2023-06-04 04:47] LABS: ALBUMIN 3.5 GM/DL (3.2-4.5)
[2023-06-04 04:48] LABS: POTASSIUM 3.9 MMOL/L (3.6-5.0)
[2023-06-04 04:49] LABS: CALCIUM 9.1 MG/DL (8.5-10.1)
[2023-06-04 04:50] LABS: TOTAL PROTEIN 5.8 GM/DL (6.4-8.2)
[2023-06-04 04:52] LABS: BILIRUBIN,TOTAL 0.4 MG/DL (0.1-1.0)
[2023-06-04 04:54] LABS: CREATININE SERUM 1.21 MG/DL (0.60-1.30)
[2023-06-04 04:56] LABS: MAGNESIUM 1.6 MG/DL (1.6-2.4)
[2023-06-04] MEDS: inSUlin ASPART 1 UNIT/0.01 ML (PER UNIT) SC SCH ×2 (05:09→11:18)
[2023-06-04 07:48] VITALS: BP 112/57
[2023-06-04] MEDS: NICOTINE PATCH REMOVAL TP SCH (08:30)
[2023-06-04] MEDS: NICOTINE 14 MG (NICODERM) PATCH TD SCH (09:04)
[2023-06-04] MEDS: amLODIPine 5 MG TABLET PO SCH (09:05)
[2023-06-04] MEDS: SENNOSIDES 8.6 MG (SENOKOT) TAB PO SCH (09:05)
[2023-06-04] MEDS: SODIUM BICARBONATE 650 MG TABLET PO SCH (09:05)
[2023-06-04] MEDS: DOCUSATE SODIUM 100 MG CAPSULE PO SCH ×2 (09:05→09:20)
[2023-06-04] MEDS: PANTOPRAZOLE 40 MG (PROTONIX) TAB PO SCH (09:05)
[2023-06-04] MEDS: MAGNESIUM OXIDE (MAG-OX)400 MG TAB PO SCH (09:06)
[2023-06-04] MEDS: MICONAZOLE 2% POWDER (DESENEX AF) 90 GM TOP SCH (09:06)
[2023-06-04] MEDS: FLUTICASONE/VILANTEROL 200/25 MCG (7 DOSES) IH SCH (10:39)
[2023-06-04] MEDS: UMECLIDINIUM BROMIDE (INCRUSE ELLIPTA) 7'S IH SCH (10:39)
[2023-06-04 12:00] VITALS: BP 118/71
[2023-06-04] MEDS ORDERED: MICO90PO TOP (12:18)
[2023-06-04] MEDS ORDERED: ENOX40DI8 SC (12:18)
[2023-06-04] MEDS ORDERED: FLUT1BLS15 INH (12:18)
[2023-06-04] MEDS ORDERED: AMLO-250 PO (12:18)
[2023-06-04] MEDS ORDERED: PANT40TA52 PO (12:18)
[2023-06-04] MEDS ORDERED: NF-MAG64T PO (12:18)
[2023-06-04] MEDS ORDERED: MONT-40 PO (12:18)
[2023-06-04] MEDS ORDERED: DOXY100T2 PO (12:18)
[2023-06-04] MEDS ORDERED: TOPI25TA10 PO (12:18)
[2023-06-04] MEDS ORDERED: MTP25TSR PO (12:18)
[2023-06-04] MEDS ORDERED: MGX400T PO (12:18)
[2023-06-04] MEDS ORDERED: SIMV40TA25 PO (12:18)
[2023-06-04] MEDS ORDERED: OXC5T PO (12:18)
[2023-06-04] MEDS ORDERED: ALPR0.254 PO (12:18)
[2023-06-04] MEDS ORDERED: CETI10TA17 PO (12:18)
[2023-06-04] MEDS ORDERED: UMEC62.5 IH (12:18)
[2023-06-04] MEDS ORDERED: NICO1PAT38 TD (12:18)
[2023-06-04] MEDS ORDERED: ALBU2.5V4 INH (12:18)
[2023-06-04] MEDS ORDERED: ACET-2267 PO (12:18)
--- NOTE | 2023-06-04 12:19 | Discharge Inst-Skilled Nursing ---
Discharge Inst-Skilled NF Reconcile Patient Problems Problems Reviewed?: Yes Chief Complaint Chief complaint: Severe generalized weakness with acute exacerbation of COPD HPI: This is a 77-year-old female with a history of colon cancer and lung cancer who presented to clinic with increased shortness of breath and generalized weakness. She was directly admitted placed on protocol meds for bacterial bronchitis and abdominal wound does have an abrasion requiring wound care consult. Patient was found to have dehydration so she was given IV fluids overnight and she is much improved. She does not wish to have any repeat scans done although it was recommended by Dr. Morgan oncology. She remains a full code. Overall she has had a gradual decline over the last few months requiring hospital stay. We will initiate IV steroids and will ultimately need shelter placement. Patient Instructions Patient Problems: Debility COPD Dehydration Consult/Follow Up/Orders Follow Up Appt.: Dr Chapman/Humaira Flores Skilled NF Admit to: [facility] Certification (SNF) I certify that SNF services are required to be given on an inpatient basis because of the above named patient's need for half-way care on a suze nuing basis for the conditions(s) for which he/she was receiving inpatient hospital services prior to his/her transfer to the SNF. [facility] Facility Order: Nursing Services, [facility]-Evaluate & Treat, Physical Therapy-Evaluate & Treat, Speech Language-Evaluate & Treat Oxygen Delivery Method: Nasal Cannula Discharge Diet: ADA Diet Resuscitation Status: Full Code New & Resume Previous Orders Genna Chapman Jun 04, 2023 12:18 GENNA CHAPMAN DO Jun 04, 2023 12:19
[2023-06-04] MEDS ORDERED: INSU100I14 SQ (12:20)
[2023-06-04] MEDS ORDERED: PRED10TA22 PO (12:20)
--- NOTE | 2023-06-04 12:21 | Discharge Summary ---
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 Lung cancer status post radiation Chronic hypomagnesemia Anxiety Severe presbycusis Current smoker Hyponatremia Lovenox for DVT prophylaxis Plan: Supportive care IV antibiotics Wound care consult PT and OT Continue IV antibiotics and IV steroids Discharge Summary Discharge Physical Examination Allergies: Coded Allergies: Penicillins (Verified Allergy, Unknown, Anaphylaxis, 09/26/20) budesonide (Verified Allergy, Unknown, Nausea, PT USES TRELEGY, 12/20/20) formoterol (Verified Allergy, Unknown, Nausea, 09/26/20) midazolam (Verified Allergy, Unknown, Anaphylaxis, pt has rec Lorazepam & alprazolam in the past, 02/04/21) Has received Lorazepam & alprazolam without issue Vitals & I&Os Vital Signs Date Time Temp Pulse Resp B/P (MAP) Pulse Ox O2 Delivery O2 Flow Rate FiO2 06/04/23 13:20 36.6 86 20 118/71 95 Nasal Cannula 2.00 General Appearance: Alert, Oriented X3, Cooperative Respiratory: Clear to Auscultation Cardiovascular: Regular Rate Psych/Mental Status: Mental Status NL Hospital Course Was the Problem List Reviewed?: Yes Hospital course: Patient had an uneventful hospital course after she was admitted from my clinic for exacerbation of COPD and bacterial bronchitis. She was found to have a UTI but it was normal brian. She received IV steroids that was tapered to prednisone taper dose. She will finish doxycycline for bacterial bronchitis and [facility] will [facility] her there. Labs (last 24 hrs) Laboratory Tests 06/01/23 16:42: Lab Scanned Report Referred Lab Report 06/01/23 17:40: White Blood Count 11.6H, Red Blood Count 4.22, Hemoglobin 13.7, Hematocrit 39, Mean Corpuscular Volume 91, Mean Corpuscular Hemoglobin 33, Mean Corpuscular Hemoglobin Concent 36, Red Cell Distribution Width 12.7, Platelet Count 275, Mean Platelet Volume 9.5, Immature Granulocyte % (Auto) 1, Neutrophils (%) (Auto) 72, Lymphocytes (%) (Auto) 19, Monocytes (%) (Auto) 7, Eosinophils (%) (Auto) 1, Basophils (%) (Auto) 0, Neutrophils # (Auto) 8.4H, Lymphocytes # (Auto) 2.2, Monocytes # (Auto) 0.9, Eosinophils # (Auto) 0.1, Basophils # (Auto) 0.0, Immature Granulocyte # (Auto) 0.1, Sodium Level 126L, Potassium Level 4.5, Chloride Level 101, Carbon Dioxide Level 13L, Anion Gap 12, Blood Urea Nitrogen 83H, Creatinine 1.88H, Estimat Glomerular Filtration Rate 27, BUN/Creatinine Ratio 44, Glucose Level 142H, Calcium Level 10.2H, Corrected Calcium 9.9, Magnesium Level 2.0, Total Bilirubin 0.3, Aspartate Amino Transf (AST/SGOT) 27, Alanine Aminotransferase (ALT/SGPT) 34, Alkaline Phosphatase 91, B-Type Natriuretic Peptide 26.7, Total Protein 7.7, Albumin 4.4 06/01/23 20:43: Glucometer 165H 06/01/23 21:18: Urine Color YELLOW, Urine Clarity CLEAR, Urine pH 5.5, Urine Specific [place] 1.015L, Urine Protein TRACEH, Urine Glucose (UA) NEGATIVE, Urine Ketones NEGATIVE, Urine Nitrite NEGATIVE, Urine Bilirubin NEGATIVE, Urine Urobilinogen 0.2, Urine Leukocyte Esterase 1+H, Urine RBC (Auto) NEGATIVE, Urine RBC 0-2, Urine WBC 10-25H, Urine Squamous Epithelial Cells 2-5, Urine Crystals PRESENTH, Urine Amorphous Sediment RARE CHERI URATESH, Urine Bacteria TRACE, Urine Casts NONE, Urine Mucus SMALLH, Urine Other TRANS EPI 5-10, Urine Culture Indicated YES 06/02/23 05:24: Glucometer 123H 06/02/23 05:25: White Blood Count 8.5, Red Blood Count 3.70L, Hemoglobin 12.1, Hematocrit 34L, Mean Corpuscular Volume 92, Mean Corpuscular Hemoglobin 33, Mean Corpuscular Hemoglobin Concent 36, Red Cell Distribution Width 12.8, Platelet Count 233, Mean Platelet Volume 9.6, Immature Granulocyte % (Auto) 1, Neutrophils (%) (Auto) 62, Lymphocytes (%) (Auto) 26, Monocytes (%) (Auto) 8, Eosinophils (%) (Auto) 2, Basophils (%) (Auto) 1, Neutrophils # (Auto) 5.3, Lymphocytes # (Auto) 2.2, Monocytes # (Auto) 0.7, Eosinophils # (Auto) 0.2, Basophils # (Auto) 0.1, Immature Granulocyte # (Auto) 0.0, Sodium Level 128L, Potassium Level 4.0, Chloride Level 104, Carbon Dioxide Level 15L, Anion Gap 9, Blood Urea Nitrogen 69H, Creatinine 1.53H, Estimat Glomerular Filtration Rate 35, BUN/Creatinine Ratio 45, Glucose Level 117H, Calcium Level 9.3, Corrected Calcium 9.4, Magnesium Level 2.5H, Total Bilirubin 0.4, Aspartate Amino Transf (AST/SGOT) 25, Alanine Aminotransferase (ALT/SGPT) 31, Alkaline Phosphatase 76, Total Protein 6.3L, Albumin 3.9 06/02/23 10:40: Glucometer 173H 06/02/23 16:04: Glucometer 122H 06/02/23 20:09: Glucometer 167H 06/03/23 03:55: White Blood Count 8.1, Red Blood Count 3.50L, Hemoglobin 11.5, Hematocrit 33L, Mean Corpuscular Volume 94, Mean Corpuscular Hemoglobin 33, Mean Corpuscular Hemoglobin Concent 35, Red Cell Distribution Width 13.1, Platelet Count 215, Mean Platelet Volume 9.4, Immature Granulocyte % (Auto) 0, Neutrophils (%) (Auto) 58, Lymphocytes (%) (Auto) 30, Monocytes (%) (Auto) 9, Eosinophils (%) (Auto) 2, Basophils (%) (Auto) 1, Neutrophils # (Auto) 4.7, Lymphocytes # (Auto) 2.4, Monocytes # (Auto) 0.7, Eosinophils # (Auto) 0.2, Basophils # (Auto) 0.0, Immature Granulocyte # (Auto) 0.0, Sodium Level 132L, Potassium Level 4.1, Chloride Level 109H, Carbon Dioxide Level 15L, Anion Gap 8, Blood Urea Nitrogen 41H, Creatinine 1.35H, Estimat Glomerular Filtration Rate 40, BUN/Creatinine Ratio 30, Glucose Level 92, Calcium Level 9.0, Corrected Calcium 9.2, Magnesium Level 1.9, Total Bilirubin 0.4, Aspartate Amino Transf (AST/SGOT) 26, Alanine Aminotransferase (ALT/SGPT) 31, Alkaline Phosphatase 83, Total Protein 6.1L, Albumin 3.7 06/03/23 10:35: Glucometer 169H 06/03/23 15:43: Glucometer 113H 06/03/23 19:36: Glucometer 187H 06/04/23 04:15: White Blood Count 6.8, Red Blood Count 3.24L, Hemoglobin 10.7L, Hematocrit 31L, Mean Corpuscular Volume 95, Mean Corpuscular Hemoglobin 33, Mean Corpuscular Hemoglobin Concent 35, Red Cell Distribution Width 13.1, Platelet Count 178, Mean Platelet Volume 9.3, Immature Granulocyte % (Auto) 1, Neutrophils (%) (Auto) 60, Lymphocytes (%) (Auto) 26, Monocytes (%) (Auto) 10, Eosinophils (%) (Auto) 2, Basophils (%) (Auto) 1, Neutrophils # (Auto) 4.1, Lymphocytes # (Auto) 1.8, Monocytes # (Auto) 0.7, Eosinophils # (Auto) 0.2, Basophils # (Auto) 0.0, Immature Granulocyte # (Auto) 0.0, Sodium Level 135, Potassium Level 3.9, Chloride Level 112H, Carbon Dioxide Level 16L, Anion Gap 7, Blood Urea Nitrogen 27H, Creatinine 1.21, Estimat Glomerular Filtration Rate 46, BUN/Creatinine Ratio 22, Glucose Level 93, Calcium Level 9.1, Corrected Calcium 9.5, Magnesium Level 1.6, Total Bilirubin 0.4, Aspartate Amino Transf (AST/SGOT) 21, Alanine Aminotransferase (ALT/SGPT) 27, Alkaline Phosphatase 65, Total Protein 5.8L, Albumin 3.5 06/04/23 10:52: Glucometer 170H Microbiology 06/01/23 Urine Culture - Final, Complete Mixed Bacterial Brian See Comments 06/01/23 Blood Culture - Preliminary, Resulted No growth Pending Labs Microbiology Date/Time Source Procedure Growth Status 06/01/23 21:18 Urine Clean Catch Urine Culture - Final Mixed Bacterial Brian See Comments Complete 06/01/23 17:50 Peripheral Rt Ac Blood Culture - Preliminary No growth Resulted 06/01/23 17:40 Peripheral Lt Ac Blood Culture - Preliminary Probable Coag Negative Staph Resulted Laboratory Tests 06/01/23 16:42: Lab Scanned Report Referred Lab Report 06/01/23 17:40: White Blood Count 11.6, Red Blood Count 4.22, Hemoglobin 13.7, Hematocrit 39, Mean Corpuscular Volume 91, Mean Corpuscular Hemoglobin 33, Mean Corpuscular Hemoglobin Concent 36, Red Cell Distribution Width 12.7, Platelet Count 275, Mean Platelet Volume 9.5, Immature Granulocyte % (Auto) 1, Neutrophils (%) (Auto) 72, Lymphocytes (%) (Auto) 19, Monocytes (%) (Auto) 7, Eosinophils (%) (Auto) 1, Basophils (%) (Auto) 0, Neutrophils # (Auto) 8.4, Lymphocytes # (Auto) 2.2, Monocytes # (Auto) 0.9, Eosinophils # (Auto) 0.1, Basophils # (Auto) 0.0, Immature Granulocyte # (Auto) 0.1, Sodium Level 126, Potassium Level 4.5, Chloride Level 101, Carbon Dioxide Level 13, Anion Gap 12, Blood Urea Nitrogen 83, Creatinine 1.88, Estimat Glomerular Filtration Rate 27, BUN/Creatinine Ratio 44, Glucose Level 142, Calcium Level 10.2, Corrected Calcium 9.9, Magnesium Level 2.0, Total Bilirubin 0.3, Aspartate Amino Transf (AST/SGOT) 27, Alanine Aminotransferase (ALT/SGPT) 34, Alkaline Phosphatase 91, B-Type Natriuretic Peptide 26.7, Total Protein 7.7, Albumin 4.4 06/01/23 20:43: Glucometer 165 06/01/23 21:18: Urine Color YELLOW, Urine Clarity CLEAR, Urine pH 5.5, Urine Specific [place] 1.015, Urine Protein TRACE, Urine Glucose (UA) NEGATIVE, Urine Ketones NEGATIVE, Urine Nitrite NEGATIVE, Urine Bilirubin NEGATIVE, Urine Urobilinogen 0.2, Urine Leukocyte Esterase 1+, Urine RBC (Auto) NEGATIVE, Urine RBC 0-2, Urine WBC 10- 25, Urine Squamous Epithelial Cells 2-5, Urine Crystals PRESENT, Urine Amorphous Sediment RARE CHERI URATES, Urine Bacteria TRACE, Urine Casts NONE, Urine Mucus SMALL, Urine Other TRANS EPI 5-10, Urine Culture Indicated YES 06/02/23 05:24: Glucometer 123 06/02/23 05:25: White Blood Count 8.5, Red Blood Count 3.70, Hemoglobin 12.1, Hematocrit 34, Mean Corpuscular Volume 92, Mean Corpuscular Hemoglobin 33, Mean Corpuscular Hemoglobin Concent 36, Red Cell Distribution Width 12.8, Platelet Count 233, Mean Platelet Volume 9.6, Immature Granulocyte % (Auto) 1, Neutrophils (%) (Auto) 62, Lymphocytes (%) (Auto) 26, Monocytes (%) (Auto) 8, Eosinophils (%) (Auto) 2, Basophils (%) (Auto) 1, Neutrophils # (Auto) 5.3, Lymphocytes # (Auto) 2.2, Monocytes # (Auto) 0.7, Eosinophils # (Auto) 0.2, Basophils # (Auto) 0.1, Immature Granulocyte # (Auto) 0.0, Sodium Level 128, Potassium Level 4.0, Chloride Level 104, Carbon Dioxide Level 15, Anion Gap 9, Blood Urea Nitrogen 69 , Creatinine 1.53, Estimat Glomerular Filtration Rate 35, BUN/Creatinine Ratio 45, Glucose Level 117, Calcium Level 9.3, Corrected Calcium 9.4, Magnesium Level 2.5, Total Bilirubin 0.4, Aspartate Amino Transf (AST/SGOT) 25, Alanine Aminotransferase (ALT/SGPT) 31, Alkaline Phosphatase 76, Total Protein 6.3, Albumin 3.9 06/02/23 10:40: Glucometer 173 06/02/23 16:04: Glucometer 122 06/02/23 20:09: Glucometer 167 06/03/23 03:55: White Blood Count 8.1, Red Blood Count 3.50, Hemoglobin 11.5, Hematocrit 33, Mean Corpuscular Volume 94, Mean Corpuscular Hemoglobin 33, Mean Corpuscular Hemoglobin Concent 35, Red Cell Distribution Width 13.1, Platelet Count 215, Mean Platelet Volume 9.4, Immature Granulocyte % (Auto) 0, Neutrophils (%) (Auto) 58, Lymphocytes (%) (Auto) 30, Monocytes (%) (Auto) 9, Eosinophils (%) (Auto) 2, Basophils (%) (Auto) 1, Neutrophils # (Auto) 4.7, Lymphocytes # (Auto) 2.4, Monocytes # (Auto) 0.7, Eosinophils # (Auto) 0.2, Basophils # (Auto) 0.0, Immature Granulocyte # (Auto) 0.0, Sodium Level 132, Potassium Level 4.1, Chloride Level 109, Carbon Dioxide Level 15, Anion Gap 8, Blood Urea Nitrogen 41, Creatinine 1.35, Estimat Glomerular Filtration Rate 40, BUN/Creatinine Ratio 30, Glucose Level 92, Calcium Level 9.0, Corrected Calcium 9.2, Magnesium Level 1.9, Total Bilirubin 0.4, Aspartate Amino Transf (AST/SGOT) 26, Alanine Aminotransferase (ALT/SGPT) 31, Alkaline Phosphatase 83, Total Protein 6.1, Albumin 3.7 06/03/23 10:35: Glucometer 169 06/03/23 15:43: Glucometer 113 06/03/23 19:36: Glucometer 187 06/04/23 04:15: White Blood Count 6.8, Red Blood Count 3.24, Hemoglobin 10.7, Hematocrit 31, M [place] Corpuscular Volume 95, Mean Corpuscular Hemoglobin 33, Mean Corpuscular Hemoglobin Concent 35, Red Cell Distribution Width 13.1, Platelet Count 178, Mean Platelet Volume 9.3, Immature Granulocyte % (Auto) 1, Neutrophils (%) (Auto) 60, Lymphocytes (%) (Auto) 26, Monocytes (%) (Auto) 10, Eosinophils (%) (Auto) 2, Basophils (%) (Auto) 1, Neutrophils # (Auto) 4.1, Lymphocytes # (Auto) 1.8, Monocytes # (Auto) 0.7, Eosinophils # (Auto) 0.2, Basophils # (Auto) 0.0, Immature Granulocyte # (Auto) 0.0, Sodium Level 135, Potassium Level 3.9, Chloride Level 112, Carbon Dioxide Level 16, Anion Gap 7, Blood Urea Nitrogen 27, Creatinine 1.21, Estimat Glomerular Filtration Rate 46, BUN/Creatinine Ratio 22, Glucose Level 93, Calcium Level 9.1, Corrected Calcium 9.5, Magnesium Level 1.6, Total Bilirubin 0.4, Aspartate Amino Transf (AST/SGOT) 21, Alanine Aminotransferase (ALT/SGPT) 27, Alkaline Phosphatase 65, Total Protein 5.8, Albumin 3.5 06/04/23 10:52: Glucometer 170 Discharge Home Medications: Active Scripts Active Novolog Flexpen (Insulin Aspart) 100 Unit/Ml (3 Ml) Solution 2 Units SQ AC Prednisone 10 Mg Tab.ds.pk 10 Mg PO DAILY Take 4 tabs(40mg)daily,decrease by 1 tab(10MG)daily. Lotrimin AF (Miconazole Nitrate) 2 % Powder 0 Gm TOP BID twice daily Incruse Ellipta (Umeclidinium [place]) 62.5 Mcg/Actuation Blst.w.dev 0 Inh IH DAILY@0800 1 puff daily Enoxaparin Sodium 40 Mg/0.4 Ml Syringe 40 Mg SC Q24H Nicoderm Cq (Nicotine) 14 Mg/24 Hour Patch.td24 14 Mg TD DAILY@0900 Doxycycline Hyclate 100 Mg Tablet 100 Mg PO BID ALPRAZolam 0.25 Mg Tablet 0.25 Mg PO BID PRN Oxyir Tablet (Oxycodone HCl) 5 Mg Tab 5 Mg PO Q8H PRN Montelukast Sodium 10 Mg Tablet 10 Mg PO HS Albuterol Sulfate 2.5 Mg/3 Ml (0.083 %) Vial.neb 2.5 Mg INH Q4H PRN Cetirizine HCl 10 Mg Tablet 10 Mg PO HS Tylenol Extra Strength (Acetaminophen) 500 Mg Tablet 500 Mg PO Q8H PRN Topiramate 25 Mg Tablet 25 Mg PO BID PRN Slow-Mag (Magnesium Chloride) 71.5 Mg Tab 71.5 Mg PO TID Magnesium Oxide 400 Mg (241.3 Mg Magnesium) Tablet 400 Mg PO TID Metoprolol Succinate 25 Mg Tab.er.24h 25 Mg PO DAILY Simvastatin 40 Mg Tablet 40 Mg PO HS Trelegy Ellipta 200-62.5-25 (Fluticasone/Umeclidin/Vilanter) 200-62.5 Blst.w.dev 1 Puff INH DAILY Amlodipine Besylate 5 Mg Tablet 5 Mg PO DAILY Pantoprazole Sodium 40 Mg Tablet.dr 40 Mg PO DAILY Instructions to patient/family Please see electronic discharge instructions given to patient. WILFREOD MARTÍNEZ DO Jun 04, 2023 12:21
[2023-06-04 13:20] VITALS: BP 118/71
== END 2023-06-04 13:23 | DRG 202 ==
LOC: 4TH 16:42
PROVIDERS: ADMIT Internal Medicine; ATTEND Internal Medicine
DX: J20.8 Acute bronchitis due to other specified organisms (principal); C34.90 Malignant neoplasm of unspecified part of unspecified bronchus or lung; N17.9 Acute kidney failure, unspecified; J44.1 Chronic obstructive pulmonary disease with (acute) exacerbation; E87.1 Hypo-osmolality and hyponatremia; N39.0 Urinary tract infection, site not specified; J44.0 Chronic obstructive pulmonary disease with (acute) lower respiratory infection; E86.0 Dehydration; S30.811A Abrasion of abdominal wall, initial encounter; Z85.038 Personal history of other malignant neoplasm of large intestine; Z93.2 Ileostomy status; Z92.3 Personal history of irradiation; E83.42 Hypomagnesemia; F41.9 Anxiety disorder, unspecified; H91.10 Presbycusis, unspecified ear; F17.210 Nicotine dependence, cigarettes, uncomplicated; N18.30 Chronic kidney disease, stage 3 unspecified; E78.00 Pure hypercholesterolemia, unspecified; I12.9 Hypertensive chronic kidney disease with stage 1 through stage 4 chronic kidney disease, or unspecified chronic kidney disease; M19.90 Unspecified osteoarthritis, unspecified site; G89.29 Other chronic pain; M54.9 Dorsalgia, unspecified; K21.9 Gastro-esophageal reflux disease without esophagitis
CPT/HCPCS: 36415; 71045; 80053; 81000; 82947; 83735; 83880; 85025; 87040; 87088; 94640; 94760